=== PATIENT | female | born 1955 | race Caucasian/White ===

== ENCOUNTER → 2018-10-09 13:38 | Outpatient (CLI) | payer MEDICARE, SELFPAY ==
--- NOTE | 2018-10-09 13:45 | US_ITS ---
US Arterial Ankle Brachial Ind History: Claudication, rest pain, smoker ORDERING PHYSICIAN: Mustapha James MD PATIENT AGE: 63 years TECHNIQUE: Segmental pressures obtained of both right and left leg. These are compared to brachial blood pressure to yield index at each level sampled including summary JOEY. The data sheets from the procedure are available in PACS FINDINGS Rest study only performed today No prior studies available for comparison. Blood pressures reported are in millimeters mercury. RIGHT LEG JOEY = 0.62. RIGHT LEG TBI=0.5 Brachial BP: 164 Thigh BP: 99 Calf BP: 112 Ankle PT: 101 Ankle DP : 102 Digit =77 LEFT LEG JOEY = 0.58 LEFT LEG TBI= 0.5 Brachial BPD: 158 Thigh BP: 106 Calf BP: 105 Ankle PT:85 Ankle DP: 80 Digit = 73 Pulses and waveforms: Dampened IMPRESSION: Moderately low JOEY on both sides consistent with moderate peripheral vascular disease. The thigh brachial index is 0.6 on the right and 0.65 on the left. The stenoses could be in the distal aorta or common or external iliac arteries. CT angiogram may confirm
== END ==
PROVIDERS: PCP Family Medicine; Visit Provider Family Medicine
DX: I70.213 Atherosclerosis of native arteries of extremities with intermittent claudication, bilateral legs (principal)
CPT/HCPCS: 93922

== ENCOUNTER → 2018-10-20 14:16 | Outpatient (CLI) | payer MEDICARE, SELFPAY ==
[2018-10-20 17:54] LABS: Blood Urea Nitrogen 6 mg/dL (7-18); Creatinine,Serum 0.77 mg/dL (0.55-1.02); Estimated Glomerular Filt Rate 75 ml/min (>60); GFR (African American) 91 ML/MIN (>60)
== END ==
PROVIDERS: Visit Provider Nurse Practitioner
DX: I73.9 Peripheral vascular disease, unspecified (principal)
CPT/HCPCS: 36415; 82565; 84520

== ENCOUNTER → 2018-10-23 09:40 | Outpatient (CLI) | payer MEDICARE, SELFPAY ==
--- NOTE | 2018-10-23 09:46 | CT_ITS ---
CT angio abdomen/femoral INDICATION: Claudication, rest pain, smoker, abnormal ultrasound of the lower extremities ITS.REASON: PAD ORDERING PHYSICIAN: Mustapha James MD PATIENT AGE: 63 years COMPARISON: 1 TECHNIQUE: Contrast Used:120 mL's Optiray 350 Oral Contrast: Axial images were obtained. Sagittal and coronal reformatted images are reviewed as well. All CT scans at the facility use one or more dose reduction, viz: automated exposure control, ma/kV adjustment per patient size (including targeted exams where dose is matched to indication, i.e. head), or iterative reconstruction technique. FINDINGS: Scattered atheromatous changes are present involving the abdominal aorta and its branches. Artifact is present from prior lumbar fusion. There is minimal dilatation of the infrarenal abdominal aorta at 1.9 cm transverse.. There is mild stenosis of the distal aspect of the abdominal aorta from calcific plaque of approximately 40%. There is occlusion of the right common iliac artery. There is a prominent collateral right lumbar artery at the L4 level. There is reconstitution of the distal aspect of the right common iliac artery with a small right external iliac artery with prominent collaterals from the iliolumbar is an inferior epigastric vessels. Calcific plaque involves the left common iliac and external iliac arteries but no significant stenosis is evident. There are 2 right renal arteries with calcific plaque at the ostium of both renal arteries on the right without significant stenosis. Calcific plaque is present ostium of the left renal artery but no significant stenosis. There is 35-40% stenosis of the ostium of the celiac artery. The SMA has an unremarkable appearance. The MARCEL is patent. Bilateral lower extremity runoff: Right side: Scattered atheromatous plaque involves the common femoral and superficial femoral artery on the right with segmental areas of narrowing with 50% or less stenosis. The popliteal on the right has an unremarkable appearance. Scattered atheromatous plaque involves the arteries of the right leg with three-vessel runoff to the ankle on the right. Left side: There is occlusion of the left superficial femoral artery with reconstitution in the mid aspect of the left SFA proximal to Rafi's canal with moderate atheromatous plaque involving the mid SFA. Left popliteal artery has an unremarkable appearance. There is a small interosseous and anterior tibial artery which extends to the ankle with occlusion of the proximal aspect of the posterior tibial artery. Posterior tibial artery does reconstitute distally. Nonangiographic findings: The intra and extra hepatic biliary radicles are prominent. Common bile duct measures up to 12 mm. The pancreatic duct does not appear dilated. No obvious mass of the pancreatic head. There is colonic diverticulosis but no evidence of diverticulitis. IMPRESSION: 1. Occluded right common iliac artery 2. Occluded left superficial femoral artery. 3. Scattered atheromatous changes as detailed above. 4. Intra and extrahepatic biliary ductal dilatation
== END ==
PROVIDERS: PCP Family Medicine; Visit Provider Family Medicine
DX: I73.9 Peripheral vascular disease, unspecified (principal)
CPT/HCPCS: 75635; Q9967

== ENCOUNTER → 2019-07-02 07:38 | Outpatient (CLI) | payer MEDICARE, SELFPAY ==
--- NOTE | 2019-07-02 08:18 | HMH.ITSHM ---
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 []LISINOPRIL DIAZEPAM TIZANIDINE ROFLUMILAST PRAVASTATIN IPRATROPIUM IBUPROFEN [place] LASIX FLONASE VITAMIN D2 VOLTAREN CELEXA CETIRIZINE SYMBICORT
== END ==
PROVIDERS: PCP Family Medicine; Visit Provider Family Medicine
DX: I20.8 Other forms of angina pectoris (principal)
CPT/HCPCS: 78451; 93005

== ENCOUNTER 2019-07-02 09:31 | Inpatient (IN) ==
[2019-07-02 10:01] LABS: Basophils % 0.2 % (0.1-2.0); Eosinophils # 0.1 K/mm3 (0.0-0.4); Eosinophils % 0.6 % (0.1-12.0); Hematocrit 30.8 % (37.0-47.0); Hemoglobin 9.3 g/dL (12.2-16.2); Lymphocytes # 0.9 K/mm3 (0.7-4.5); Lymphocytes % 6.4 % (10-50); Mean Corpuscular HGB Conc 30.1 g/dL (31.8-35.4); Mean Corpuscular Volume 80.8 fl (81-99); Monocytes # 0.9 K/mm3 (0.1-1.0); Monocytes % 6.7 % (1.7-9.3); Neutrophils # 11.9 K/mm3 (1.8-7.8); Platelet Count 333 K/mm3 (142-424); Red Blood Count 3.81 M/mm3 (4.20-5.40); Red Cell Distribution Width 16.5 % (11.5-17.5); White Blood Count 13.8 K/mm3 (4.8-10.8)
[2019-07-02 10:08] LABS: Anion Gap 19.3 mEq/L (5-15); Calcium 9.8 mg/dl (8.4-10.2)
[2019-07-02 10:25] LABS: Eosinophils % 1 % (0-3); Lymphocytes % 6 % (10-50); Monocytes % 8 % (2-9); Neutrophils % 85 % (42-76); Total Cells Counted 100
[2019-07-02 10:26] LABS: Anisocytosis 1+; Hypochromasia 1+
--- NOTE | 2019-07-02 10:42 | Emergency Department Note ---
ED Disposition Clinical Impression: STEMI (ST elevation myocardial infarction) Disposition: Admitted as Observation Condition on Discharge: Good Additional Instructions: Spoke to cardiology and I think the game plan is to take her to the [facility] now. Referrals: Mustapha James MD [Primary Care Provider] - - Critical Care Critical Care Time: No Attestation: On 07/02/19, the high probability of a clinically significant, sudden or life threatening deterioration of the following system(s) required my full and direct attention, intervention and personal management. The time I documented below is in addition to time spent performing reported procedures but includes the foll owing listed in this critical care notation. Medical Decision Making - Medical Records Medical records reviewed: Yes: I reviewed the patient's medical records. - Garry Inquiry Pt receiving controlled substance: No Vital Signs: 07/02/19 09:32 Pulse Rate [Radial] 123 H Respiratory Rate 20 Blood Pressure [Right Arm] 110/51 L Blood Pressure Mean [Right Arm] 70 Blood Pressure Source [Right Arm] Automatic Cuff Blood Pressure Position [Right Arm] Sitting 02 Sat by Pulse Oximetry 93 L Oxygen Delivery Method Nasal Cannula Oxygen Flow Rate (LPM) 2 - Lab Data Lab results reviewed: Yes: I reviewed the patient's lab results. Lab Results 07/02/19 09:49: WBC 13.8 H, RBC 3.81 L, Hgb 9.3 L, Hct 30.8 L, MCV 80.8 L, MCH 24.3 L, MCHC 30.1 L, RDW 16.5, Plt Count 333, MPV 9.0, Neut % (Auto) 86.0 H, Lymph % (Auto) 6.4 L, [place] % (Auto) 6.7, Eos % (Auto) 0.6, Baso % (Auto) 0.2, Neut # (Auto) 11.9 H, Lymph # (Auto) 0.9, [place] # (Auto) 0.9, Eos # (Auto) 0.1, Baso # (Auto) 0.0, Total Counted 100, Neutrophils % (Manual) 85 H, Lymphocytes % (Manual) 6 L, Monocytes % (Manual) 8, Eosinophils % (Manual) 1, Platelet Estimate Normal, Hypochromasia 1+, Anisocytosis 1+, Microcytosis 1+ 07/02/19 09:49: Sodium 132 L, Potassium 4.3, Chloride 93 L, Carbon Dioxide 24, Anion Gap 19.3 H, BUN 14, Creatinine 0.90, Estimated Creat Clear 76, Estimated GFR 63, Est GFR ( Amer) 76, Glucose 123 H, Calcium 9.8, Troponin I 2.09 H 07/02/19 09:49: NT-Pro-B Natriuret Pep 7780 H Result diagrams: 07/02/19 09:49 07/02/19 09:49 Orders (Tests/Meds): ED MEDICATIONS Discontinued Medications Generic Name Dose Route Start Last Admin Trade Name Freq PRN Reason Stop Dose Admin Albuterol/Ipratropium 3 ml 07/02/19 09:42 07/02/19 10:08 Duoneb 3ml Neb IH 07/02/19 09:43 Not Given ONCE ONE Methylprednisolone Sodium Succinate 125 mg 07/02/19 09:42 07/02/19 09:50 Solu-Medrol 125mg/2ml Vial IM 07/02/19 09:43 125 mg ONCE ONE Administration ORDERS Category Date Time Status XR chest portable Stat Exams 07/02/19 09:41 Taken Troponin I Q3H Lab 07/02/19 12:45 Ordered Troponin I Q3H Lab 07/02/19 15:45 Ordered - Radiology Data #1 Image(s): Chest Preliminary Findings: Abnormal (Increase fax vascular markings indicated of CHF) - ECG Data Tracing #1 Normal Sinus Rhythm: No Arrhythmias present: sinus tach Ischemic changes: ST elevation (Patient has ST changes on this EKG in aVR and aVL secondary to her previous EKG. This is an inferior ID) Resp/SOB HPI - General Chief Complaint: Shortness of Breath/Dyspnea Stated Complaint: SOB Wheezing Time Seen by Provider: 07/02/19 10:30 Mode of Arrival: Wheelchair Source of Information: Patient Limitations: No Limitations Description of Symptoms (Recalled from ER Triage Doc. by RN): While here for a cardiac stress test patient became short of breath with complaint of chest, arm and neck pain. States that she has had wheezes for a couple weeks. - History of Present Illness 64-year-old female presents the ER with shortness of breath and tachycardia. She was getting a stress test done this morning and she became tachycardic and hypertensive as she was starting the test. At that time they did do an EKG and sent her here to the emergency department for further evaluation. Patient states that she really never developed any chest pain but she has had shortness of breath since around Thanksgiving of last year. She describes the shortness of breath at when she is active and it is alleviated when she is at rest. Patient denies any productive cough. Patient denies any nasal congestion. Patient denies any recent fever shakes or chills. Patient is a diabetic and hypertensive patient. - Related Data Home Medications Medication Instructions Recorded Confirmed Aspirin [Aspir 81] 81 mg PO DAILY 05/16/19 05/25/19 Budesonide/Formoterol Fumarate 2 puffs IH BID 05/16/19 05/25/19 [Symbicort 160-4.5 Mcg Inhaler] Cetirizine HCl [Zyrtec] 10 mg PO DAILY 05/16/19 05/25/19 Citalopram Hydrobromide [Celexa 20 mg PO DAILY 05/16/19 05/25/19 20mg Tablet] Diclofenac Sodium [Voltaren 100gm 100 gm TP DAILY 05/16/19 05/25/19 Topical Gel] Ergocalciferol (Vitamin D2) 2,000 unit PO DAILY 05/16/19 05/25/19 [Vitamin D2] Fluticasone Propionate [Flonase 2 spr NS DAILY 05/16/19 05/25/19 50mcg nasal spray 16gm] Furosemide [Lasix 40mg tab] 40 mg PO DAILY 05/16/19 05/25/19 Hydrocodone/Acetaminophen [[place] 1 tab PO TID PRN 05/16/19 05/25/19 7.5-325 Tablet] Ibuprofen [Motrin 600mg 600 mg PO Q8HP PRN 05/16/19 05/25/19 Tablet] Ipratropium [place] [Ipratropium 1 spray NS DAILY 05/16/19 05/25/19 [place] 0.021mg/act NS] Pravastatin Sodium [Pravachol] 40 mg PO DAILY 05/16/19 05/25/19 Roflumilast [Daliresp] 500 mcg PO DAILY 05/16/19 05/25/19 Tiotropium [place] [Spiriva 4 gm IH DAILY 05/16/19 05/25/19 Respimat] Tizanidine HCl 2 mg PO DAILY 05/16/19 05/25/19 diazePAM [Valium] 5 mg PO DAILY 05/16/19 05/25/19 lisinopriL [Lisinopril 20mg Tab] 20 mg PO DAILY 05/16/19 05/25/19 Allergies Allergy/AdvReac Type Severity Reaction Status Date / Time Iodinated Contrast Media Allergy Severe S-DIFF. Verified 05/25/19 07:56 [Iodinated Contrast Media - BREATHING IV Dye] pseudoephedrine AdvReac heart Verified 05/25/19 07:56 racing [facility] History - Hepatitis A Screen Drug use history?: No High risk sexual behaviors?: No History of sexually transmitted infection?: No Currently employed?: No Childcare worker?: No Do you have indoor plumbing?: Yes Do you have electricity?: Yes Attestation statement:: This patient has been screened for Hepatitis A risk factors. I have reviewed the patient's past medical history: Yes Medical History: Reports:: Anxiety, Chronic Obstructive Pulmonary Disease (COPD), Depression, Gastroesophageal Reflux Disease(GERD), Hyperlipidemia, Hypertension, Peripheral Artery Disease, Transient Ischemic Attacks (TIA) Denies:: Cancer, Diabetes Mellitus Type 1, Diabetes Mellitus Type 2, Internal Pacemaker, MRSA, Seizures Other Surgeries: Yes: Coronary Stent, Hysterectomy-Total, Other. No: Pacemaker Amputation: No Fractures: No - Social History Educational Level: Attended High School Smoking Status: Current every day smoker # Packs/Day (cigarettes): 10 Alcohol Intake: never Substance Use Type: denies use Occupational Status: other Housing: house Household Members: none - Psychiatric History Pschychiatric History:: Reports:: Anxiety, Depression Family Hx:: No significant family history ROS Obtained: Yes All systems reviewed & no additional complaints - Constitutional Constitutional: Reports system reviewed and no additional complaints, except as docu - Eyes Eyes: Reports system reviewed and no additional complaints, except as docu - ENT Ears, Nose, Mouth, and Throat: Reports system reviewed and no additional complaints, except as docu - Cardiovascular Cardiovascular: Reports system reviewed and no additional complaints, except as docu - Respiratory Respiratory: Yes system reviewed and no additional complaints, except as docu - Gastrointestinal Gastrointestingal: Reports: system reviewed and no additional complaints, except as docu - Genitourinary Male Genitourinary: Reports system reviewed and no additional complaints, except as docu Female Genitourinary: Reports system reviewed and no additional complaints, except as docu - Musculoskeletal Musculoskeletal: Reports system reviewed and no additional complaints, except as docu - Neurologic Neurologic: Reports system reviewed and no additional complaints, except as docu - Endocrine Endocrine: Reports system reviewed and no additional complaints, except as docu - Hematologic/Lymphatic Henatologic/Lymphatic: Reports system reviewed and no additional complaints, except as docu - Allergic/Immunologic Allergic/Immunologic: Reports system reviewed and no additional complaints, except as docu Physical Exam - General General appearance: alert, in no apparent distress - Head Head exam: atraumatic, normocephalic - Eye Eye exam: Present: normal appearance - ENT ENT exam: Present: normal exam - Neck Neck exam: Present: normal inspection - Chest Chest inspection: Present: normal inspection - Respiratory Respiratory exam: Present: normal lung sounds bilaterally - Cardiovascular Cardiovascular exam: Present: tachycardia - Abdominal Exam Abdominal exam: Present: soft - Extremities Exam Extremities exam: Present: normal inspection, full ROM - Back Exam Back exam: Present: normal inspection, full ROM - Neurological Exam Neurological exam: Present: alert, oriented X3 - Psychiatric Psychiatric exam: Present: normal affect, normal mood - Skin Skin exam: Present: warm - Lymphatic Lymphatic Findings: no adenopathy
--- NOTE | 2019-07-02 11:25 | Consult Report ---
History of Present Illness Consult date: 07/02/19 Requesting physician: Mustapha James Consult reason: shortness of breath Chief complaint: SOA, CHF, NSTEMI Additional Medical History:: 1. Tobacco use, since age 9 2. PAD, prior iliac stenting 3. HTN 4. HLD, on statin 5. Anxiety/Depression 6. IV contrast allergy History of present illness: 64-year-old female presents the ER with shortness of breath and tachycardia. She was getting a stress test done this morning and she became tachycardic and hypertensive as she was starting the test. At that time they did do an EKG and sent her here to the emergency department for further evaluation. Patient states that she really never developed any chest pain but she has had shortness of breath since around of last year. She describes the shortness of breath at when she is active and it is alleviated when she is at rest. Patient denies any productive cough. Patient denies any nasal congestion. Patient denies any recent fever shakes or chills. Patient is a diabetic and hypertensive patient. The above per Dr. Khan Initial troponin is 2.06 She has received ASA and plavix. She is not as symptomatic at this time but still has some mild conversational dyspnea. Heart rate has improved after IV labetolol. Discussed case with Dr. Salcido (covering for Dr. Chavez). Will proceed with [facility] later today. Pt will be given 180 mg of Brilinta now along with IV lasix. She relates prior iliac stenting but has an allergy to IV contrast (pretreatment successfully prevents reaction per patient). [facility] History Medical History: Reports:: Anxiety, Chronic Obstructive Pulmonary Disease (COPD), Depression, Gastroesophageal Reflux Disease(GERD), Hyperlipidemia, Hypertension, Peripheral Artery Disease, Transient Ischemic Attacks (TIA) Denies:: Cancer, Diabetes Mellitus Type 1, Diabetes Mellitus Type 2, Internal Pacemaker, MRSA, Seizures *Have you ever received a pneumonia vaccine?: Yes *Have you received a flu vaccine this season?: Yes Other Surgeries: Yes: Coronary Stent, Hysterectomy-Total, Other. No: Pacemaker Amputation: No Fractures: No - *Social History Educational Level: Attended High School Smoking Status: Current every day smoker # Packs/Day (cigarettes): 10 Alcohol Intake: never Substance Use Type: denies use *Occupational Status:: other Housing: house Household Members: none *Travel in the last 8 weeks: None - Psychiatric History Pschychiatric History:: Reports:: Anxiety, Depression Family Hx:: No significant family history Meds Home Medications Medication Instructions Recorded Confirmed Type Aspirin [Aspir 81] 81 mg PO DAILY 05/16/19 05/25/19 History Budesonide/Formoterol Fumarate 2 puffs IH BID 05/16/19 05/25/19 History [Symbicort 160-4.5 Mcg Inhaler] Cetirizine HCl [Zyrtec] 10 mg PO DAILY 05/16/19 05/25/19 History Citalopram Hydrobromide [Celexa 20 mg PO DAILY 05/16/19 05/25/19 History 20mg Tablet] Diclofenac Sodium [Voltaren 100gm 100 gm TP DAILY 05/16/19 05/25/19 History Topical Gel] Fluticasone Propionate [Flonase 2 spr NS DAILY 05/16/19 05/25/19 History 50mcg nasal spray 16gm] Furosemide [Lasix 40mg tab] 40 mg PO DAILY 05/16/19 05/25/19 History Hydrocodone/Acetaminophen [[place] 1 tab PO TID PRN 05/16/19 05/25/19 History 7.5-325 Tablet] Ibuprofen [Motrin 600mg 600 mg PO Q8HP PRN 05/16/19 05/25/19 History Tablet] Ipratropium [place] [Ipratropium 1 spray NS DAILY 05/16/19 05/25/19 History [place] 0.021mg/act NS] Roflumilast [Daliresp] 500 mcg PO DAILY 05/16/19 05/25/19 History Tiotropium [place] [Spiriva 4 gm IH DAILY 05/16/19 05/25/19 History Respimat] Tizanidine HCl 2 mg PO DAILY 05/16/19 05/25/19 History diazePAM [Valium] 5 mg PO DAILY 05/16/19 05/25/19 History lisinopriL [Lisinopril 20mg Tab] 20 mg PO DAILY 05/16/19 05/25/19 History Allergies Allergy/AdvReac Type Severity Reaction Status Date / Time Iodinated Contrast Media Allergy Severe S-DIFF. Verified 05/25/19 07:56 [Iodinated Contrast Media - BREATHING IV Dye] pseudoephedrine AdvReac heart Verified 05/25/19 07:56 racing Review of Systems - Review of Systems Review of systems:: pertinent systems reviewed and negative unless documented below - *Cardiovascular Reports shortness of breath, Reports shortness of breath with activity, Denies chest pain - *Respiratory Reports shortness of breath, Reports shortness of breath with activity, Reports wheezing, Denies cough - *Gastrointestinal Denies abdominal pain, Denies nausea, Denies vomiting - *Genitourinary Denies blood in urine - *Musculoskeletal Denies joint pain, Denies back pain - *Neurologic Denies fainting, Denies weakness Exam Vital signs and Labs for Last 24 Hours: Pulse Resp BP Pulse Ox 112 H 20 119/68 99 07/02/19 11:00 07/02/19 11:00 07/02/19 11:00 07/02/19 11:00 Laboratory Results - last 24 hr 07/02/19 09:49: WBC 13.8 H, RBC 3.81 L, Hgb 9.3 L, Hct 30.8 L, MCV 80.8 L, MCH 24.3 L, MCHC 30.1 L, RDW 16.5, Plt Count 333, MPV 9.0, Neut % (Auto) 86.0 H, Lymph % (Auto) 6.4 L, [place] % (Auto) 6.7, Eos % (Auto) 0.6, Baso % (Auto) 0.2, Neut # (Auto) 11.9 H, Lymph # (Auto) 0.9, [place] # (Auto) 0.9, Eos # (Auto) 0.1, Baso # (Auto) 0.0, Total Counted 100, Neutrophils % (Manual) 85 H, Lymphocytes % (Manual) 6 L, Monocytes % (Manual) 8, Eosinophils % (Manual) 1, Platelet Estimate Normal, Hypochromasia 1+, Anisocytosis 1+, Microcytosis 1+ 07/02/19 09:49: Sodium 132 L, Potassium 4.3, Chloride 93 L, Carbon Dioxide 24, Anion Gap 19.3 H, BUN 14, Creatinine 0.90, Estimated Creat Clear 76, Estimated GFR 63, Est GFR ( Amer) 76, Glucose 123 H, Calcium 9.8, Troponin I 2.09 H 07/02/19 09:49: NT-Pro-B Natriuret Pep 7780 H I & O for Last 24 hours: Intake & Output 06/29/19 06/30/19 07/01/19 07/02/19 10:59 10:59 11:59 11:59 Weight 192 lb - *Routine HEENT Exam Head: Present: normocephalic Eye: Present: EOMI, PERRL ENT: Present: mucous membranes moist - *Routine Neck Exam Present: supple. Absent: JVD, carotid bruit - *Routine Respiratory Exam Present: decreased breath sounds, rhonchi, wheezes. Absent: accessory muscle use, rales - *Routine Cardiovascular Exam Present: RRR. Absent: murmur, gallop, rubs - *Routine Abdominal Exam Present: soft. Absent: tenderness, distended, guarding - *Routine Extremities Exam Absent: edema, calf tenderness - *Routine Neurological Exam Present: alert, oriented X3, moving all extremities Assessment and Plan (1) NSTEMI (non-ST elevated myocardial infarction) Current visit: Yes Status: Acute Category: Medical Code(s): I21.4 - Non-ST elevation (NSTEMI) myocardial infarction (2) COPD (chronic obstructive pulmonary disease) Current visit: Yes Status: Acute Category: Medical Code(s): J44.9 - Chronic obstructive pulmonary disease, unspecified (3) Tobacco use Current visit: Yes Status: Acute Category: Social Hx Code(s): Z72.0 - Tobacco use (4) HTN (hypertension) Current visit: Yes Status: Acute Category: Medical Code(s): I10 - Essential (primary) hypertension (5) HLD (hyperlipidemia) Current visit: Yes Status: Acute Category: Medical Code(s): E78.5 - Hyperlipidemia, unspecified (6) PAD (peripheral artery disease) Current visit: Yes Status: Acute Category: Medical Code(s): I73.9 - Peripheral vascular disease, unspecified - Assessment and plan all Dx Assessment and Plan for all problems:: 1. Abnormal EKG (ST depression infero-laterally) and elevated troponin, consistent with NSTEMI, Give 180 mg brilinta now (she has received ASA and 300 mg plavix) along with heparin 5000 units now then start 1200 units/hr thereafter. Continue statin therapy. 2. CHF on CXR, Give IV lasix 40 mg now and check Echo. 3. 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 4. Further recommendations to follow.
--- NOTE | 2019-07-02 12:08 | Pharmacy Consult Notes ---
[facility] Pharmacy Heparin Dosing - Demographic Data Admission date:: 07/02/19 Date: 07/02/19 Time: 12:07 Allergies/Adverse Reactions: Allergies Allergy/AdvReac Type Severity Reaction Status Date / Time Iodinated Contrast Media Allergy Severe S-DIFF. Verified 05/25/19 07:56 [Iodinated Contrast Media - BREATHING IV Dye] pseudoephedrine AdvReac heart Verified 05/25/19 07:56 racing Height: 1.6 m Weight: 87.09 kg - Indication Medication therapy:: Heparin CVA?: No Bleeding problem?: No Kidney disease?: No UT?: No Desired PTT range:: 60-80 seconds - Labs Anticoagulation Lab Results:: 07/02/19 09:49 Hgb 9.3 L Hct 30.8 L Plt Count 333 - Monitoring Dose Monitor 1 Date: 07/02/19 Time: 13:05 Infusion Rate:: 1,200 UNITS/HR Comment:: 5,000 UNIT BOLUS Dose Monitor 2 Date: 07/02/19 Time: 19:00 PTT Result:: 38.5 Infusion Rate:: INCREASE RATE TO 28 ML/HR Comment:: 4000 UNIT BOLUS Dose Monitor 3 Date: 07/03/19 Time: 01:05 PTT Result:: 83.5 Infusion Rate:: DECREASE RATE TO 27 ML/HR Dose Monitor 4 Date: 07/03/19 Time: 08:00 PTT Result:: 55.4 Infusion Rate:: INCREASE RATE TO 28 ML/HR Dose Monitor 5 Date: 07/03/19 Time: 14:30 PTT Result:: 44.8 Infusion Rate:: INCREASE RATE TO 30 ML/HR Comment:: 4,000 UNIT BOLUS - Core Measures Is INR > or = 2 at discharge?: No Most Recent Labs:: Laboratory Results - last 24 hr 07/02/19 09:49: WBC 13.8 H, RBC 3.81 L, Hgb 9.3 L, Hct 30.8 L, MCV 80.8 L, MCH 24.3 L, MCHC 30.1 L, RDW 16.5, Plt Count 333, MPV 9.0, Neut % (Auto) 86.0 H, Lymph % (Auto) 6.4 L, [place] % (Auto) 6.7, Eos % (Auto) 0.6, Baso % (Auto) 0.2, Neut # (Auto) 11.9 H, Lymph # (Auto) 0.9, [place] # (Auto) 0.9, Eos # (Auto) 0.1, Baso # (Auto) 0.0, Total Counted 100, Neutrophils % (Manual) 85 H, Lymphocytes % (Manual) 6 L, Monocytes % (Manual) 8, Eosinophils % (Manual) 1, Platelet Estimate Normal, Hypochromasia 1+, Anisocytosis 1+, Microcytosis 1+ 07/02/19 09:49: Sodium 132 L, Potassium 4.3, Chloride 93 L, Carbon Dioxide 24, Anion Gap 19.3 H, BUN 14, Creatinine 0.90, Estimated Creat Clear 76, Estimated GFR 63, Est GFR ( Amer) 76, Glucose 123 H, Calcium 9.8, Troponin I 2.09 H 07/02/19 09:49: NT-Pro-B Natriuret Pep 7780 H 07/02/19 11:10: Lactate 1.7 Were Heparin and Warfarin started on the same day?: No If not, why?: PATIENT SENT TO [facility]
[2019-07-02 12:14] LABS: Activated Partial Thrombo Time 27.7 seconds (23.6-34.0); INR 1.17 (0.9-1.1); Prothrombin Time 12.1 seconds (9.4-11.8)
--- NOTE | 2019-07-02 13:26 | History & Physical Report ---
*Admission Date: 07/02/19 *Chief complaint: Dyspnea with exertion *History of present illness: 64-year-old white female with history of peripheral arterial disease, diabetes, severe tobacco use disorder and recent accelerating shortness of air who is scheduled for an imaging stress test today, but when she arrived at the stress test room was noted to be dyspneic. Stress test was started but she immediately had EKG changes and was taken to the emergency department. In the emergency department had elevated troponin levels, diagnosed with non-STEMI/accelerating angina/acute coronary syndrome, cardiac medications were started, cardiology was consulted and she was transferred to second floor for further management. [facility] History I have reviewed the patient's past medical history: Yes Medical History: Reports:: Anxiety, Chronic Obstructive Pulmonary Disease (COPD), Depression, Gastroesophageal Reflux Disease(GERD), Hyperlipidemia, Hypertension, Peripheral Artery Disease, Transient Ischemic Attacks (TIA) Denies:: Cancer, Diabetes Mellitus Type 1, Diabetes Mellitus Type 2, Internal Pacemaker, MRSA, Seizures *Have you ever received a pneumonia vaccine?: Yes *Have you received a flu vaccine this season?: Yes Other Surgeries: Yes: Coronary Stent, Hysterectomy-Total, Other. No: Pacemaker Amputation: No Fractures: No - *Social History Educational Level: Completed GED/General Educational Development Smoking Status: Current some day smoker # Packs/Day (cigarettes): 1 Alcohol Intake: never Substance Use Type: denies use *Occupational Status:: retired Housing: house Household Members: none *Travel in the last 8 weeks: None - Psychiatric History Pschychiatric History:: Reports:: Anxiety, Depression Family Hx:: Alcoholism Review of Systems - Review of Systems Review of systems:: pertinent systems reviewed and negative unless documented below Reports chest pressure and dyspnea. Notes that this has been accelerating over the past 4 weeks. Denies GI symptoms. Reports lots of pain syndrome issues from her fibromyalgia. Otherwise 10 point review of systems negative - *Neurologic Denies fainting, Denies weakness Meds Home Medications Medication Instructions Recorded Confirmed Type Aspirin [Aspir 81] 81 mg PO DAILY 05/16/19 07/02/19 History Budesonide/Formoterol Fumarate 2 puffs IH BID 05/16/19 07/02/19 History [Symbicort 160-4.5 Mcg Inhaler] Cetirizine HCl [Zyrtec] 10 mg PO DAILY 05/16/19 07/02/19 History Citalopram Hydrobromide [Celexa 20 mg PO DAILY 05/16/19 07/02/19 History 20mg Tablet] Diclofenac Sodium [Voltaren 100gm 100 gm TP DAILY 05/16/19 07/02/19 History Topical Gel] Fluticasone Propionate [Flonase 2 spr NS DAILY 05/16/19 07/02/19 History 50mcg nasal spray 16gm] Furosemide [Lasix 40mg tab] 40 mg PO DAILY 05/16/19 07/02/19 History Hydrocodone/Acetaminophen [[place] 1 tab PO TID PRN 05/16/19 07/02/19 History 7.5-325 Tablet] Ibuprofen [Motrin 600mg 600 mg PO Q8HP PRN 05/16/19 07/02/19 History Tablet] Ipratropium [place] [Ipratropium 1 spray NS DAILY 05/16/19 07/02/19 History [place] 0.021mg/act NS] Roflumilast [Daliresp] 500 mcg PO DAILY 05/16/19 05/25/19 History Tiotropium [place] [Spiriva 4 gm IH DAILY 05/16/19 07/02/19 History Respimat] Tizanidine HCl 2 mg PO DAILY 05/16/19 07/02/19 History diazePAM [Valium] 5 mg PO DAILY 05/16/19 07/02/19 History lisinopriL [Lisinopril 20mg Tab] 20 mg PO DAILY 05/16/19 07/02/19 History Allergies Allergy/AdvReac Type Severity Reaction Status Date / Time Iodinated Contrast Media Allergy Severe S-DIFF. Verified 05/25/19 07:56 [Iodinated Contrast Media - BREATHING IV Dye] pseudoephedrine AdvReac heart Verified 05/25/19 07:56 racing Exam Vital signs and Labs for Last 24 Hours: Temp Pulse Resp BP Pulse Ox 98.2 F 112 H 20 119/68 97 07/02/19 12:15 07/02/19 12:15 07/02/19 12:15 07/02/19 12:15 07/02/19 12:02 Laboratory Results - last 24 hr 07/02/19 09:49: WBC 13.8 H, RBC 3.81 L, Hgb 9.3 L, Hct 30.8 L, MCV 80.8 L, MCH 24.3 L, MCHC 30.1 L, RDW 16.5, Plt Count 333, MPV 9.0, Neut % (Auto) 86.0 H, Lymph % (Auto) 6.4 L, [place] % (Auto) 6.7, Eos % (Auto) 0.6, Baso % (Auto) 0.2, Neut # (Auto) 11.9 H, Lymph # (Auto) 0.9, [place] # (Auto) 0.9, Eos # (Auto) 0.1, Baso # (Auto) 0.0, Total Counted 100, Neutrophils % (Manual) 85 H, Lymphocytes % (Manual) 6 L, Monocytes % (Manual) 8, Eosinophils % (Manual) 1, Platelet Estimate Normal, Hypochromasia 1+, Anisocytosis 1+, Microcytosis 1+ 07/02/19 09:49: Sodium 132 L, Potassium 4.3, Chloride 93 L, Carbon Dioxide 24, Anion Gap 19.3 H, BUN 14, Creatinine 0.90, Estimated Creat Clear 76, Estimated GFR 63, Est GFR ( Amer) 76, Glucose 123 H, Calcium 9.8, Troponin I 2.09 H 07/02/19 09:49: NT-Pro-B Natriuret Pep 7780 H 07/02/19 09:49: PT 12.1 H, INR 1.17 H, APTT 27.7 07/02/19 11:10: Lactate 1.7 I & O for Last 24 hours: Intake & Output 06/30/19 07/01/19 07/02/19 07/03/19 10:59 11:59 11:59 11:59 Weight 192 lb 192 lb 0.009 oz Narrative: Patient is awake, oriented x3. Neurologic exam intact. Patient is edentulous, no oral lesions. Lungs have expiratory wheezing in the bases. Good air movement however. Heart rate regular. No murmurs. Abdomen soft and nontender. Distal perfusion diminished in the extremities with 1+ pulses in both feet but symmetric, upper extremity pulses are normal. Skin exam without rashes Assessment and Plan (1) NSTEMI (non-ST elevated myocardial infarction) Current visit: Yes Status: Acute Category: Medical Code(s): I21.4 - Non-ST elevation (NSTEMI) myocardial infarction (2) COPD (chronic obstructive pulmonary disease) Current visit: Yes Status: Acute Category: Medical Code(s): J44.9 - Chronic obstructive pulmonary disease, unspecified (3) Tobacco use Current visit: Yes Status: Acute Category: Social Hx Code(s): Z72.0 - Tobacco use (4) HTN (hypertension) Current visit: Yes Status: Acute Category: Medical Code(s): I10 - Essential (primary) hypertension (5) HLD (hyperlipidemia) Current visit: Yes Status: Acute Category: Medical Code(s): E78.5 - Hyperlipidemia, unspecified (6) PAD (peripheral artery disease) Current visit: Yes Status: Acute Category: Medical Code(s): I73.9 - Peripheral vascular disease, unspecified (7) Obesity Current visit: Yes Status: Acute Category: Medical Code(s): E66.9 - Obesity, unspecified (8) Fibromyalgia Current visit: Yes Status: Acute Category: Medical Code(s): M79.7 - Fibromyalgia - Assessment and plan all Dx Assessment and Plan for all problems:: Multiple comorbid conditions. Agree with admission for left heart cath. She with multiple medication sensitivities and history of bleeding with Plavix. If patient requires dual antiplatelet therapy this will be concerning. Patient with minimal wheezing. We will administer 1 dose of steroids and make sure pulmonary toilet is ordered.
--- NOTE | 2019-07-02 14:11 | Pharmacy Consult Notes ---
[facility] Pharmacy VTE Monitoring - Patient Demographics Admission date: 07/02/19 Report Date: 07/02/19 Time: 14:10 Allergies/Adverse Reactions: Patient Allergies Iodinated Contrast Media [Iodinated Contrast Media - IV Dye] Allergy (Severe, Verified 05/25/19 07:56) S-DIFF. BREATHING pseudoephedrine Adverse Reaction (Verified 05/25/19 07:56) heart racing Height: 1.6 m Weight: 87.09 kg Patient Problems: Current Active Problems STEMI (ST elevation myocardial infarction) (Acute) NSTEMI (non-ST elevated myocardial infarction) (Acute) COPD (chronic obstructive pulmonary disease) (Acute) Tobacco use (Acute) HTN (hypertension) (Acute) HLD (hyperlipidemia) (Acute) PAD (peripheral artery disease) (Acute) Obesity (Acute) Fibromyalgia (Acute) - VTE Risk Labs: VTE Related Lab Results Hgb 9.3 g/dL (12.2-16.2) L 07/02/19 09:49 Hct 30.8 % (37.0-47.0) L 07/02/19 09:49 Plt Count 333 K/mm3 (142-424) 07/02/19 09:49 PT 12.1 seconds (9.4-11.8) H 07/02/19 09:49 INR 1.17 (0.9-1.1) H 07/02/19 09:49 APTT 27.7 seconds (23.6-34.0) 07/02/19 09:49 BUN 14 mg/dl (7-17) 07/02/19 09:49 Creatinine 0.90 mg/dl (0.52-1.04) 07/02/19 09:49 Estimated Creat Clear 76 mL/min (50-200) 07/02/19 09:49 Was VTE Risk Assessment Performed: Yes VTE Score: 4 VTE Risk Level: Low Risk Clinical Trial Participant: No - Prophylaxis VTE Prophylaxis Ordered?: Yes Types of VTE Prophylaxis: TEDS Knee High, Pharmacological Pharmacologic Type: Other (BRILIN[place])
[2019-07-02 14:45] LABS: Microscopic, Urine URINE MICROSCOPIC (MICROSCOPIC)
[2019-07-02 15:12] LABS: Appearance,Urine CLEAR (Clear); Bilirubin,Urine Negative (Negative); Blood, Urine TRACE-I (Negative); Color,Urine YELLOW (Yellow); Glucose,Urine (UA) Negative (Negative); Ketones,Urine Negative (Negative); Leukocyte Esterase,Urine Negative (Negative); PH,Urine 5.5 (5.0-8.5); Protein,Urine Negative (Negative); Urobilinogen,Urine 0.2 EU/dl (0.2)
[2019-07-02 16:21] LABS: WBC,Urine Occasional #/hpf (0-3)
[2019-07-02 16:22] LABS: Bacteria,Urine Trace /lpf
--- NOTE | 2019-07-02 17:31 | Electrocardiograph Report ---
APPROVED REPORT Exam: Resting ECG HR:109 bpm ECG Measurements Heart Rate 109 AXES SD 148 P 74 QRSd 78 QRS -5 QT 346 T222 QTc 465 <Conclusion> Sinus tachycardia Low voltage QRS Marked ST abnormality, possible inferior/lateral subendocardial injury Abnormal ECG Electronically signed by : Marquis Trejo, 07/02/2019 17:31:06
--- NOTE | 2019-07-03 00:23 | Discharge Summary ---
General - General Admission date:: 07/02/19 Discharge date: 07/03/19 HPI HPI: 64-year-old white female with history of peripheral arterial disease, diabetes, severe tobacco use disorder and recent accelerating shortness of air who is scheduled for an imaging stress test today, but when she arrived at the stress test room was noted to be dyspneic. Stress test was started but she immediately had EKG changes and was taken to the emergency department. In the emergency department had elevated troponin levels, diagnosed with non-STEMI/accelerating angina/acute coronary syndrome, cardiac medications were started, cardiology was consulted and she was transferred to second floor for further management. Hospital Course Hospital Course: Admitted to Medicine for NSTEMI. Patient was symptomatic with dyspnea and some chest pressure. Cardiology consulted from ER and patient taken to cardiac cath technician. Procedure tolerated well with findings as follows: IMPRESSION 1. Severe left main coronary artery stenosis in its distal portion 2. Severe three-vessel [place] coronary artery disease 3. Moderate diffuse coronary calcification 4. Moderate reduction in left ventricular systolic function 5. Elevated left ventricular end-diastolic pressure 6. Successful placement of an Angio-Seal device in the right common femoral artery Due to severity of multi-vessel disease, recommended CABG. Cardiology consulted CT surgery at . Patient accepted for procedure. Monitored on Med-Surg floor on goal directed therapy and Heparin gtt until transfer. Remained hemodynamically stable but had some intermittent episodes of chest discomfort through the night. Continue breathing treatments for her COPD, nicotine replacement therapy for her tobacco abuse disorder, and nitroglycerin paste on her chest for angina. Cardiology recs from Cath report as follows: - "Patient will need coronary artery bypass grafting. She needs tuned up prior to this. She has a lot of rhonchi and respiratory symptoms. Her heart rate is up as well as her blood pressure. She has three-vessel coronary artery disease including left main coronary artery stenosis. With her EDP being elevated, she needs continued aggressive diuresis. Best option for her at this time is bypass given her age, her cardiomyopathy, and her other comorbid factors. We will continue the heparin drip at this time. Continue to titrate medications as tolerated." Diuresed with IV lasix, negative +/- 1L during admission. CP and SOA intermittent. No Syncope, SIDDIQI, N/V/D, fever. Stable for transfer to for further management and CABG. Patient had strong reservation about going to due to poor experience with her over 10 years ago when he was admitted for stroke. Had extensive discussion about quality of care she would receive, the need for coronary artery bypass, and potential risks for her procedure. After extensive discussion, patient amenable to sticking with plan. Family at bedside with her this morning on rounds included her son and [id number]. All of their questions answered today. Objective Vital signs: Temp Pulse Resp BP Pulse Ox 98.2 F 114 H 18 146/88 H 95 07/02/19 18:58 07/02/19 21:31 07/02/19 18:58 07/02/19 18:58 07/02/19 21:31 Narrative: Patient is awake, oriented x3. Neurologic exam intact. Patient is edentulous, no oral lesions. Lungs have expiratory wheezing in the bases and fine crackles in posterior lung [place] at bases. Good air movement however. Heart rate regular. No murmurs. No edema Abdomen soft and nontender. Distal perfusion diminished in the extremities with 1+ pulses in both feet but symmetric, upper extremity pulses are normal. Skin exam without rashes; well-healed midline scar in her lumbar region from previous back surgery. Results Labs on day of discharge: Labs from last 24 hours 07/02/19 07/02/19 07/02/19 18:58 14:51 14:38 WBC RBC Hgb Hct MCV MCH MCHC RDW Plt Count MPV Neut % (Auto) Lymph % (Auto) [place] % (Auto) Eos % (Auto) Baso % (Auto) Neut # (Auto) Lymph # (Auto) [place] # (Auto) Eos # (Auto) Baso # (Auto) Total Counted Neutrophils % (Manual) Lymphocytes % (Manual) Monocytes % (Manual) Eosinophils % (Manual) Platelet Estimate Hypochromasia Anisocytosis Microcytosis PT INR APTT 38.5 H D Sodium Potassium Chloride Carbon Dioxide Anion Gap BUN Creatinine Estimated Creat Clear Estimated GFR Est GFR ( Amer) Glucose Lactate Calcium Troponin I 3.23 H NT-Pro-B Natriuret Pep Urine Color Yellow Urine Appearance Clear Urine pH 5.5 Ur Specific [place] 1.020 Urine Protein Negative Urine Glucose (UA) Negative Urine Ketones Negative Urine Blood Trace-i Urine Nitrate Negative Urine Bilirubin Negative Urine Urobilinogen 0.2 Ur Leukocyte Esterase Negative Urine WBC Occasional Ur Squamous Epith Cells 3-5 Urine Bacteria Trace 07/02/19 07/02/19 07/02/19 11:10 09:49 09:49 WBC RBC Hgb Hct MCV MCH MCHC RDW Plt Count MPV Neut % (Auto) Lymph % (Auto) [place] % (Auto) Eos % (Auto) Baso % (Auto) Neut # (Auto) Lymph # (Auto) [place] # (Auto) Eos # (Auto) Baso # (Auto) Total Counted Neutrophils % (Manual) Lymphocytes % (Manual) Monocytes % (Manual) Eosinophils % (Manual) Platelet Estimate Hypochromasia Anisocytosis Microcytosis PT 12.1 H INR 1.17 H APTT 27.7 Sodium Potassium Chloride Carbon Dioxide Anion Gap BUN Creatinine Estimated Creat Clear Estimated GFR Est GFR ( Amer) Glucose Lactate 1.7 Calcium Troponin I NT-Pro-B Natriuret Pep 7780 H Urine Color Urine Appearance Urine pH Ur Specific [place] Urine Protein Urine Glucose (UA) Urine Ketones Urine Blood Urine Nitrate Urine Bilirubin Urine Urobilinogen Ur Leukocyte Esterase Urine WBC Ur Squamous Epith Cells Urine Bacteria 07/02/19 07/02/19 09:49 09:49 WBC 13.8 H RBC 3.81 L Hgb 9.3 L Hct 30.8 L MCV 80.8 L MCH 24.3 L MCHC 30.1 L RDW 16.5 Plt Count 333 MPV 9.0 Neut % (Auto) 86.0 H Lymph % (Auto) 6.4 L [place] % (Auto) 6.7 Eos % (Auto) 0.6 Baso % (Auto) 0.2 Neut # (Auto) 11.9 H Lymph # (Auto) 0.9 [place] # (Auto) 0.9 Eos # (Auto) 0.1 Baso # (Auto) 0.0 Total Counted 100 Neutrophils % (Manual) 85 H Lymphocytes % (Manual) 6 L Monocytes % (Manual) 8 Eosinophils % (Manual) 1 Platelet Estimate Normal Hypochromasia 1+ Anisocytosis 1+ Microcytosis 1+ PT INR APTT Sodium 132 L Potassium 4.3 Chloride 93 L Carbon Dioxide 24 Anion Gap 19.3 H BUN 14 Creatinine 0.90 Estimated Creat Clear 76 Estimated GFR 63 Est GFR ( Amer) 76 Glucose 123 H Lactate Calcium 9.8 Troponin I 2.09 H NT-Pro-B Natriuret Pep Urine Color Urine Appearance Urine pH Ur Specific [place] Urine Protein Urine Glucose (UA) Urine Ketones Urine Blood Urine Nitrate Urine Bilirubin Urine Urobilinogen Ur Leukocyte Esterase Urine WBC Ur Squamous Epith Cells Urine Bacteria DS: Diagnosis - Discharge Diagnosis (1) NSTEMI (non-ST elevated myocardial infarction) Status: Acute (2) COPD (chronic obstructive pulmonary disease) Status: Chronic (3) Tobacco use Status: Chronic (4) HTN (hypertension) Status: Chronic (5) HLD (hyperlipidemia) Status: Chronic (6) PAD (peripheral artery disease) Status: Chronic (7) Obesity Status: Chronic (8) Fibromyalgia Status: Chronic Discharge Plan - Patient Discharge Instructions ACTIVITY: Limited activity DIET: low fat, low cholesterol Patient Instructions: Chronic Obstructive Pulmonary Disease (Alternative Therapy), DI for Chronic Obstructive Pulmonary Disease, DI for Chest Pain - Follow up Plan Disposition: Xfer Short-Term Hosp Home Medications: Home Medications Medication Instructions Recorded Confirmed Type Budesonide/Formoterol Fumarate 2 puffs IH BID 05/16/19 07/02/19 History [Symbicort 160-4.5 Mcg Inhaler] Cetirizine HCl [Zyrtec] 10 mg PO DAILY 05/16/19 07/02/19 History Citalopram Hydrobromide [Celexa 20 mg PO DAILY 05/16/19 07/02/19 History 20mg Tablet] Diclofenac Sodium [Voltaren 100gm 4 gm TP QID 05/16/19 07/02/19 History Topical Gel] Fluticasone Propionate [Flonase 2 spr NS DAILY 05/16/19 07/02/19 History 50mcg nasal spray 16gm] Hydrocodone/Acetaminophen [[place] 1 tab PO TID PRN 05/16/19 07/02/19 History 7.5-325 Tablet] Ibuprofen [Motrin 600mg 600 mg PO Q8HP PRN 05/16/19 07/02/19 History Tablet] Ipratropium [place] [Ipratropium 1 spray NS DAILY 05/16/19 07/02/19 History [place] 0.021mg/act NS] RX: Tizanidine HCl 2 mg PO TIDP PRN 05/16/19 07/02/19 History Roflumilast [Daliresp] 500 mcg PO DAILY 05/16/19 07/02/19 History Tiotropium [place] [Spiriva 2 puffs IH DAILY 05/16/19 07/02/19 History Respimat] diazePAM [Valium] 5 mg PO QIDP PRN 05/16/19 07/02/19 History lisinopriL [Lisinopril 20mg Tab] 20 mg PO DAILY 05/16/19 07/02/19 History Aspirin [Lo-Dose Aspirin [place]] 81 mg PO DAILY 07/02/19 07/02/19 History Furosemide [Furosemide 20mg Tab] 20 mg PO DAILY 07/02/19 07/02/19 History RX: Clopidogrel Bisulfate [Plavix 75 mg PO DAILY 07/02/19 07/02/19 History 75mg Tab] RX: Lansoprazole 30 mg PO DAILY 07/02/19 07/02/19 History Prescriptions/Medication Reconciliation: New RX: Ipratropium/Albuterol Sulfate [Duoneb 3mL neb] 3 ml IH Q4HP PRN ampul.neb PRN Reason: Shortness Of Breath RX: Potassium Chloride [Klor-con 20 mEq tablet] 20 meq PO BID tablet Continued lisinopriL [Lisinopril 20mg Tab] 20 mg PO DAILY Fluticasone Propionate [Flonase 50mcg nasal spray 16gm] 2 spr NS DAILY Hydrocodone/Acetaminophen [[place] 7.5-325 Tablet] 1 tab PO TID PRN PRN Reason: pain Tiotropium [place] [Spiriva Respimat] 2 puffs IH DAILY Citalopram Hydrobromide [Celexa 20mg Tablet] 20 mg PO DAILY Cetirizine HCl [Zyrtec] 10 mg PO DAILY RX: Lansoprazole 30 mg PO DAILY Furosemide [Furosemide 20mg Tab] 20 mg PO DAILY Budesonide/Formoterol Fumarate [Symbicort 160-4.5 Mcg Inhaler] 2 puffs IH BID RX: Tizanidine HCl 2 mg PO TIDP PRN PRN Reason: MUSCLE SPASMS Roflumilast [Daliresp] 500 mcg PO DAILY Ipratropium [place] [Ipratropium [place] 0.021mg/act NS] 1 spray NS DAILY diazePAM [Valium] 5 mg PO QIDP PRN PRN Reason: Anxiety RX: Clopidogrel Bisulfate [Plavix 75mg Tab] 75 mg PO DAILY Discontinued Ibuprofen [Motrin 600mg Tablet] 600 mg PO Q8HP PRN PRN Reason: pain Aspirin [Lo-Dose Aspirin EC] 81 mg PO DAILY Diclofenac Sodium [Voltaren 100gm Topical Gel] 4 gm TP QID - Problem Reconciliation Problems Reviewed?: Yes
[2019-07-03 06:25] LABS: Eosinophils % 0.1 % (0.1-12.0); Hematocrit 29.8 % (37.0-47.0); Lymphocytes # 0.6 K/mm3 (0.7-4.5); Lymphocytes % 3.7 % (10-50); Mean Corpuscular HGB Conc 30.3 g/dL (31.8-35.4); Mean Corpuscular Volume 80.2 fl (81-99); Mean Platelet Volume 8.9 fl (7.4-10.4); Monocytes # 0.9 K/mm3 (0.1-1.0); Monocytes % 5.8 % (1.7-9.3); Neutrophils # 14.7 K/mm3 (1.8-7.8); Neutrophils % 90.5 % (37.0-80.0); Platelet Count 335 K/mm3 (142-424); Red Blood Count 3.71 M/mm3 (4.20-5.40); Red Cell Distribution Width 16.9 % (11.5-17.5); White Blood Count 16.3 K/mm3 (4.8-10.8)
[2019-07-03 06:26] LABS: Anion Gap 19.1 mEq/L (5-15)
[2019-07-03 06:27] LABS: Calcium 9.2 mg/dl (8.4-10.2)
[2019-07-03 07:38] LABS: Hypochromasia 1+; Lymphocytes % 7 % (10-50); Monocytes % 4 % (2-9); Neutrophils % 89 % (42-76); Nucleated Red Blood Cells 1; Total Cells Counted 100
[2019-07-03 07:39] LABS: Anisocytosis 1+
--- NOTE | 2019-07-03 12:24 | Progress Note ---
Subjective Date: 07/03/19 Time: 09:00 Principal diagnosis: CHF, NSTEMI, CM Interval history: 64-year-old white female in bed in no acute distress. Still with some conversational dyspnea and complaints of chest discomfort underneath the left breast that is worse with deep breathing. Dr. Munguia and I had a long discussion today with the patient and her son and [id number] regarding recommendation for bypass surgery and transfer to [facility]. Multiple questions answered. Patient ultimately agreed to proceed with transfer to for bypass surgery. Exam Vital signs and Labs for Last 24 Hours: Temp Pulse Resp BP Pulse Ox 98.3 F 116 H 18 123/71 95 07/03/19 11:15 07/03/19 11:15 07/03/19 11:15 07/03/19 11:15 07/03/19 11:15 Laboratory Results - last 24 hr 07/02/19 09:49: PT 12.1 H, INR 1.17 H, APTT 27.7 07/02/19 14:38: Urine Color Yellow, Urine Appearance Clear, Urine pH 5.5, Ur Specific [place] 1.020, Urine Protein Negative, Urine Glucose (UA) Negative, Urine Ketones Negative, Urine Blood Trace-i, Urine Nitrate Negative, Urine Bilirubin Negative, Urine Urobilinogen 0.2, Ur Leukocyte Esterase Negative, Urine WBC Occasional, Ur Squamous Epith Cells 3-5, Urine Bacteria Trace 07/02/19 14:51: Troponin I 3.23 H 07/02/19 18:58: APTT 38.5 H D 07/03/19 01:05: APTT 83.5 H* D 07/03/19 05:48: WBC 16.3 H, RBC 3.71 L, Hgb 9.0 L, Hct 29.8 L, MCV 80.2 L, MCH 24.3 L, MCHC 30.3 L, RDW 16.9, Plt Count 335, MPV 8.9, Neut % (Auto) 90.5 H, Lymph % (Auto) 3.7 L, [place] % (Auto) 5.8, Eos % (Auto) 0.1, Baso % (Auto) 0.0 L, Neut # (Auto) 14.7 H, Lymph # (Auto) 0.6 L, [place] # (Auto) 0.9, Eos # (Auto) 0.0, Baso # (Auto) 0.0, Total Counted 100, Neutrophils % (Manual) 89 H, Lymphocytes % (Manual) 7 L, Monocytes % (Manual) 4, Nucleated RBCs 1, Platelet Estimate Normal, Hypochromasia 1+, Anisocytosis 1+, Microcytosis 1+ 07/03/19 05:48: Sodium 131 L, Potassium 4.1, Chloride 90 L, Carbon Dioxide 26, Anion Gap 19.1 H, BUN 24 H D, Creatinine 0.90, Estimated Creat Clear 76, Estimated GFR 63, Est GFR ( Amer) 76, Glucose 132 H, Calcium 9.2 07/03/19 08:00: APTT 55.4 H* D I & O for Last 24 hours: Intake & Output 07/01/19 07/02/19 07/03/19 07/04/19 11:59 11:59 11:59 11:59 Intake Total 354 / 354 Output Total 1700 / 1700 Balance -1346 / -1346 Weight 192 lb 0.009 oz 192 lb 0.009 oz Microbiology Reports for the Last 24 Hours: Microbiology 07/02/19 19:35 Sputum - Expectorated Sputum Gram Stain - Final 07/02/19 19:35 Sputum - Expectorated Sputum Sputum Culture - Preliminary - *Routine HEENT Exam Head: Present: normocephalic Eye: Present: EOMI, PERRL ENT: Present: mucous membranes moist - *Routine Respiratory Exam Present: rales, wheezes. Absent: accessory muscle use, rhonchi - *Routine Cardiovascular Exam Present: RRR. Absent: murmur, gallop, rubs - *Routine Extremities Exam Absent: edema, calf tenderness - *Routine Neurological Exam Present: alert, oriented X3, moving all extremities Progress Note: A&P (1) NSTEMI (non-ST elevated myocardial infarction) Status: Acute Current Visit: Yes (2) COPD (chronic obstructive pulmonary disease) Status: Chronic Current Visit: Yes (3) Tobacco use Status: Chronic Current Visit: Yes (4) HTN (hypertension) Status: Chronic Current Visit: Yes (5) HLD (hyperlipidemia) Status: Chronic Current Visit: Yes (6) PAD (peripheral artery disease) Status: Chronic Current Visit: Yes (7) Obesity Status: Chronic Current Visit: Yes (8) Fibromyalgia Status: Chronic Current Visit: Yes Assessment and Plan for All Diagnoses:: 1. Non-ST elevation ME, continue aspirin and heparin drip. We will add n itroglycerin paste due to complaint of chest pain in setting of multivessel disease with need for bypass surgery. Patient will likely be transferred later today or tomorrow to the [facility]. 2. Continued tobacco use with COPD. Nebulizer treatments per Dr. Munguia. We will continue to try to diurese and hopefully improve patient's pulmonary status. PFTs will be deferred to due to our respiratory therapy department personnel out of work related to coronavirus outbreak. 3. Compensatory tachycardia, improved with diuretic therapy. Will begin adding low-dose beta-silvia as tolerated. 4. Cardiomyopathy with ejection fraction estimated at 30-35%, will start Entresto today. Continue IV diuretic therapy. 5. Peripheral artery disease with history of iliofemoral stenting in the past 6. Status post multiple orthopedic procedures of the spine with placement of titanium rods 7. Remote history of CVA
--- NOTE | 2019-07-03 14:25 | Progress Note ---
Internal Medicine - PN: Subj *Date: 07/03/19 *Time: 08:30 Interval history: Ms. Byrne did fair overnight. Does continue to diuresis approximately 1000cc out in the past 24 hours. Denies any fever, nausea, vomiting, diarrhea. Complains because her bowels have not moved. Still having some chest pain this morning that is intermittent. Last breathing treatment was last night however she is not dyspneic on supplemental oxygen. States she is hungry, would at least like something to drink. Had long conversation with son at bedside and [id number] on the phone about need for CABG and extent of her coronary artery disease. After extensive discussion, patient amenable to transfer to for further treatment. Blood pressure stable, remains tachycardic. Otherwise alert and oriented. States understanding of current problem and plan to address coronary artery disease. Expresses significant concern however for risk factors and worry about successful surgery. Exam Vital signs and Labs for Last 24 Hours: Temp Pulse Resp BP Pulse Ox 98.3 F 113 H 18 123/71 95 07/03/19 11:15 07/03/19 13:59 07/03/19 11:15 07/03/19 11:15 07/03/19 11:15 Laboratory Results - last 24 hr 07/02/19 14:38: Urine Color Yellow, Urine Appearance Clear, Urine pH 5.5, Ur Specific Malcolm 1.020, Urine Protein Negative, Urine Glucose (UA) Negative, Urine Ketones Negative, Urine Blood Trace-i, Urine Nitrate Negative, Urine Bilirubin Negative, Urine Urobilinogen 0.2, Ur Leukocyte Esterase Negative, Urine WBC Occasional, Ur Squamous Epith Cells 3-5, Urine Bacteria Trace 07/02/19 14:51: Troponin I 3.23 H 07/02/19 18:58: APTT 38.5 H D 07/03/19 01:05: APTT 83.5 H* D 07/03/19 05:48: WBC 16.3 H, RBC 3.71 L, Hgb 9.0 L, Hct 29.8 L, MCV 80.2 L, MCH 24.3 L, MCHC 30.3 L, RDW 16.9, Plt Count 335, MPV 8.9, Neut % (Auto) 90.5 H, Lymph % (Auto) 3.7 L, [place] % (Auto) 5.8, Eos % (Auto) 0.1, Baso % (Auto) 0.0 L, Neut # (Auto) 14.7 H, Lymph # (Auto) 0.6 L, [place] # (Auto) 0.9, Eos # (Auto) 0.0, Baso # (Auto) 0.0, Total Counted 100, Neutrophils % (Manual) 89 H, Lymphocytes % (Manual) 7 L, Monocytes % (Manual) 4, Nucleated RBCs 1, Platelet Estimate Normal, Hypochromasia 1+, Anisocytosis 1+, Microcytosis 1+ 07/03/19 05:48: Sodium 131 L, Potassium 4.1, Chloride 90 L, Carbon Dioxide 26, Anion Gap 19.1 H, BUN 24 H D, Creatinine 0.90, Estimated Creat Clear 76, Estimated GFR 63, Est GFR ( Amer) 76, Glucose 132 H, Calcium 9.2 07/03/19 08:00: APTT 55.4 H* D I & O for Last 24 hours: Intake & Output 06/30/19 07/01/19 07/02/19 07/03/19 22:59 23:59 23:59 23:59 Intake Total 954 / 954 Output Total 1100 / 1100 1900 / 1900 Balance -1100 / -1100 -946 / -946 Weight 87.09 kg Microbiology Reports for the Last 24 Hours: Microbiology 07/02/19 19:35 Sputum - Expectorated Sputum Gram Stain - Final 07/02/19 19:35 Sputum - Expectorated Sputum Sputum Culture - Preliminary Narrative: Patient is awake, oriented x3. Neurologic exam intact. Patient is edentulous, no oral lesions. Lungs have expiratory wheezing in the bases and fine crackles in posterior lung parish at bases. Good air movement however. Heart rate regular. No murmurs. No edema Abdomen soft and nontender. Distal perfusion diminished in the extremities with 1+ pulses in both feet but symmetric, upper extremity pulses are normal. Skin exam without rashes; well-healed midline scar in her lumbar region from previous back surgery. Assessment and Plan (1) NSTEMI (non-ST elevated myocardial infarction) Current visit: Yes Status: Acute Category: Medical Code(s): I21.4 - Non-ST elevation (NSTEMI) myocardial infarction (2) COPD (chronic obstructive pulmonary disease) Current visit: Yes Status: Chronic Category: Medical Code(s): J44.9 - Chronic obstructive pulmonary disease, unspecified (3) Tobacco use Current visit: Yes Status: Chronic Category: Social Hx Code(s): Z72.0 - Tobacco use (4) HTN (hypertension) Current visit: Yes Status: Chronic Category: Medical Code(s): I10 - Essential (primary) hypertension (5) HLD (hyperlipidemia) Current visit: Yes Status: Chronic Category: Medical Code(s): E78.5 - Hyperlipidemia, unspecified (6) PAD (peripheral artery disease) Current visit: Yes Status: Chronic Category: Medical Code(s): I73.9 - Peripheral vascular disease, unspecified (7) Obesity Current visit: Yes Status: Chronic Category: Medical Code(s): E66.9 - Obesity, unspecified (8) Fibromyalgia Current visit: Yes Status: Chronic Category: Medical Code(s): M79.7 - Fibromyalgia - Assessment and plan all Dx Assessment and Plan for all problems:: 64-year-old female status post NSTEMI, persistent angina, status post left heart cath. Multivessel disease necessitating CABG. Awaiting transfer to for further management. At this time we will advance goal-directed therapy with initiation of Entresto. Continue to address volume overload with diuresis today. Goal of -1 to -2 L today. Okay to initiate clear liquid diet. -To new supplemental oxygen as needed for goal sats greater than 92% while awake, greater than 88% while asleep -Scheduled nebulizers -Nitropaste for angina -Full code -Nicotine replacement therapy -Bedrest -Resume some of her home medicines today including tizanidine for muscle cramps in her back -Simethicone for gas and bloating Patient's condition is guarded, prognosis dependent upon success of CABG
--- NOTE | 2019-07-03 16:36 | Cardiology Report ---
APPROVED REPORT Violin Tutor: CT Laterality: Bilateral Study Quality: Adequate Indications: pre-op for CABG, history of PAD Risk Factors Hypertension: Hyperlipidemia PAD Smoking Doppler Spectral Velocity Analysis ECA (R) 201.10/162.30 cm/sECA (L) 155.20/155.20 cm/s dICA (R) 71.80/21.70 cm/sdICA (L) 70.60/20.90 cm/s Lefty (R) 104.00/23.90 cm/smICA (L) 57.70/22.50 cm/s pICA (R) 89.00/25.40 cm/spICA (L) 79.70/18.70 cm/s dCCA (R) 58.30/19.70 cm/sdCCA (L) 60.40/15.50 cm/s pCCA (R) 75.40/13.70 cm/spCCA (L) 64.20/16.00 cm/s Vert (R) 73.70/17.10 cm/s ICA/CCA 1.80 ICA/CCA 1.30 Findings Duplex evaluation demonstrates stenosis of the right proximal internal carotid artery in the range of 20-49% with PSV <140 cm/sec, EDV <100 cm/sec, and IC/CC Ratio <4.0. Duplex evaluation demonstrates stenosis of the left proximal internal carotid artery in the range of 20-49% with PSV <140 cm/sec, EDV <100 cm/sec, and IC/CC Ratio <4.0. R ECA >60% stenosis L ECA <60% stenosis upper end of scale Duplex evaluation demonstrates antegrade flow of the right Vertebral Artery. Unable to image left Vertebral Artery. Conclusion Duplex evaluation demonstrates stenosis of the right proximal internal carotid artery in the range of 20-49% with PSV <140 cm/sec, EDV <100 cm/sec, and IC/CC Ratio <4.0. Duplex evaluation demonstrates stenosis of the left proximal internal carotid artery in the range of 20-49% with PSV <140 cm/sec, EDV <100 cm/sec, and IC/CC Ratio <4.0. Duplex evaluation demonstrates antegrade flow of the right Vertebral Artery. Unable to image left Vertebral Artery. Electronically signed by : Gianni Self MD 07/03/2019 16:36:15
== END 2019-07-03 20:45 | disposition short-term general hospital (02) | DRG 281 ==
LOC: ER 09:31 → 2ND 11:46
PROVIDERS: ADMIT Internal Medicine Adolescent Medicine; ATTEND Internal Medicine Adolescent Medicine
CPT/HCPCS: 36415; 71010; 71045; 78451; 80048; 81001; 83605; 83880; 84484; 85007; 85025; 85610; 85730; 87070; 87077; 87186; 87205; 93005; 93306; 93458; 93880; 94640; 94760; 94761; 96374; 96375; 99152; 99153; 99284; C1725; C1760; C1766; C1769; J1644; Q9967

== ENCOUNTER → 2019-08-29 14:42 | Outpatient (CLI) | payer MEDICARE, SELFPAY ==
--- NOTE | 2019-08-29 15:18 | XR_ITS ---
PROCEDURE: XR CHEST 2V CLINICAL HISTORY: on amiod COMPARISON: CXR CHEST(2 VIEWS-NOT PORTABLE) from 10/05/2013 XR CHEST PORTABLE from 07/02/2019 FINDINGS: Normal heart size. No evidence of CHF. There is some hyperinflation with attenuation of the peripheral pulmonary vessels consistent with COPD. CHF has improved compared to 07/02/2019. There is some minimal nodularity in the right upper lobe overlying the 3rd rib anteriorly measuring 8 mm possibly due to an area of fibrosis. Stability may be confirmed with follow-up. There are degenerative changes of the thoracic spine with postsurgical changes of the lumbar spine. Bone plate is present over lower cervical spine. IMPRESSION: COPD with chronic changes. No convincing evidence of amiodarone lung toxicity. Please see above for detail Dictated by: Gianni Self MD 08/29/2019 18:10 Electronically signed by Gianni Self MD in [place] 08/29/2019 18:10
[2019-08-29 17:27] LABS: Alanine Aminotransferase 19 U/L (12-78); Albumin Level 4.5 g/dl (3.5-5.0); Alkaline Phosphatase 94 U/L (38-126); Aspartate Amino Transferase 29 U/L (14-36); Bilirubin,Indirect 1.1 mg/dL (0.0-0.9); Bilirubin,Total 1.1 mg/dl (0.2-1.3); Bilirubin,Unconjugated 1.1 mg/dL (0.0-1.1); Chol/HDL Ratio 3.4 (1-3.5); Cholesterol 256 mg/dl (140-200); HDL Cholesterol 75 mg/dl (40-60); Total Protein,Serum 7.6 g/dl (6.3-8.2); Triglycerides 214 mg/dl (30-150); VLDL Cholesterol 43 mg/dL (0-40)
[2019-08-29 17:38] LABS: Direct LDL Cholesterol 165.93 mg/dL (100-129)
[2019-08-29 17:44] LABS: Free T4 (Free Thyroxine) 1.15 ng/dl (0.78-2.19)
[2019-08-29 17:58] LABS: Thyroid Stimulating Hormone 8.46 uIU/mL (0.465-4.68)
== END ==
PROVIDERS: PCP Family Medicine; Visit Provider Urology
DX: E78.5 Hyperlipidemia, unspecified (principal); I10 Essential (primary) hypertension; I25.10 Atherosclerotic heart disease of native coronary artery without angina pectoris; I73.9 Peripheral vascular disease, unspecified; Z72.0 Tobacco use; Z79.899 Other long term (current) drug therapy
CPT/HCPCS: 36415; 71046; 80061; 80076; 84439; 84443

== ENCOUNTER 2019-10-08 12:51 | Outpatient (RCR) | payer MEDICARE, MEDICAID, SELFPAY | END 2019-11-26 11:08 | disposition home or self-care (01) | LOC: PT 12:51 | DX: I25.10 Atherosclerotic heart disease of native coronary artery without angina pectoris (principal); I21.4 Non-ST elevation (NSTEMI) myocardial infarction | CPT/HCPCS: 93798 ==

== ENCOUNTER → 2019-11-28 13:07 | Outpatient (CLI) | payer MEDICARE, MEDICAID, SELFPAY ==
--- NOTE | 2019-11-28 13:11 | CA_ITS ---
APPROVED REPORT EXAM: Comprehensive 2D, Doppler, and color-flow Echocardiogram [employer] Facility Manager: Deepthi Zaldivar RDCS Ht: 5 ft 3 in Wt: 169lbs BSA: 1.80 BP: 121/70 mmHg Indications: CAD,PAD,HTN,SMOKER,HLP 2D Dimensions LVOT 1.99 cm (M/F) 1.5-2.5 M-Mode Dimensions RVDd 2.55 cm (0.9-2.6) LVDd 5.30 cm (3.5-5.7) LVDs 4.10 cm (3.5-5.7) IVSd 0.92 cm (0.6-1.1) PWd 0.72 cm (0.6-1.1) EF (Teich) 45.20% FS 22.60% EDV (Teich) 135.30 mL ESV (Teich) 74.20 mL LV Diastology E/A Ratio 0.44 Aortic Valve LVOT Max 81.00 (70-110 cm/s) LVOT VTI 14.09 cm Mitral Valve MV A Velocity 61.00 (40-130 cm/s) Left Ventricle Left atrium is mildly enlarged, left ventricle is normal size, mild concentric left ventricular hypertrophy, visually estimated ejection fraction 55% with no regional wall motion abnormality, grade 1 diastolic dysfunction seen without tissue Doppler evidence of raise left atrial pressure. Right Ventricle Right atrium and right ventricular normal size and contractility. Aortic Valve Aortic valve is thickened and calcified, mean gradient across valve is 10 mmHg, this likely represents mild aortic stenosis, there is trace aortic insufficiency. Mitral Valve Mitral valve leaflets are minimally thickened, there is no mitral stenosis, there is mild mitral regurgitation. Tricuspid Valve Tricuspid valve is grossly normal, there is mild tricuspid regurgitation, calculated right ventricular systolic pressure 29 mmHg. Pulmonic Valve Pulmonic valve is poorly visualized. Great Vessels Aortic root is normal size. Pericardium No significant pericardial effusion noted. Conclusion 1. Mildly enlarged left atrium, normal left ventricular size, mild concentric left ventricular hypertrophy, visually estimated ejection fraction 55% with no regional wall motion abnormality, grade 1 diastolic dysfunction seen without tissue Doppler evidence of raise left atrial pressure. 2. Thickened calcified aortic valve with mild aortic stenosis, there is trace aortic insufficiency. 3. Mild mitral and tricuspid regurgitation. Calculated right ventricular systolic pressure is 29 mmHg. 4. No significant pericardial effusion noted. Electronically signed by : Kane Ramsey, 11/29/2019 15:28:45
== END ==
PROVIDERS: PCP Family Medicine; Visit Provider Urology
DX: I25.10 Atherosclerotic heart disease of native coronary artery without angina pectoris (principal); E78.5 Hyperlipidemia, unspecified; I10 Essential (primary) hypertension; I73.9 Peripheral vascular disease, unspecified; Z72.0 Tobacco use; Z79.899 Other long term (current) drug therapy; I34.0 Nonrheumatic mitral (valve) insufficiency
CPT/HCPCS: 93306

== ENCOUNTER → 2019-12-31 10:02 | Outpatient (CLI) | payer MEDICARE, MEDICAID, SELFPAY ==
[2019-12-31 12:48] LABS: Coronavirus 19 IgM Antibody Negative (Negative)
[2019-12-31 13:23] LABS: Coronavirus 19 IgG Antibody Positive (Negative)
== END ==
PROVIDERS: Visit Provider Ophthalmology
DX: Z20.828 Contact with and (suspected) exposure to other viral communicable diseases (principal); U07.1 COVID-19
CPT/HCPCS: 36415; 86328

== ENCOUNTER 2020-01-01 09:25 | Day surgery (SDC) | payer MEDICARE, MEDICAID, SELFPAY ==
[2019-12-26 11:02] VITALS: BMI 31.1
[2020-01-01] VITALS (7 sets, daily range): BP systolic 138–170; BP diastolic 64–92; PULSE 67–86; RESP 18–20; TEMP 36.4–36.8; O2SAT 96–98
== END 2020-01-01 11:03 | disposition home or self-care (01) ==
LOC: OR 09:25
PROVIDERS: PCP Family Medicine; Visit Provider Ophthalmology
DX: H25.813 Combined forms of age-related cataract, bilateral (principal); F41.9 Anxiety disorder, unspecified; M19.90 Unspecified osteoarthritis, unspecified site; I10 Essential (primary) hypertension; F32.9 Major depressive disorder, single episode, unspecified; E78.5 Hyperlipidemia, unspecified; J44.9 Chronic obstructive pulmonary disease, unspecified; E05.90 Thyrotoxicosis, unspecified without thyrotoxic crisis or storm; K21.9 Gastro-esophageal reflux disease without esophagitis; Z90.710 Acquired absence of both cervix and uterus; Z95.818 Presence of other cardiac implants and grafts; Z79.899 Other long term (current) drug therapy
CPT/HCPCS: 66984; V2632

== ENCOUNTER → 2020-01-14 10:31 | Outpatient (CLI) | payer MEDICARE, MEDICAID, SELFPAY ==
[2020-01-14 12:26] LABS: Coronavirus 19 IgG Antibody Positive (Negative); Coronavirus 19 IgM Antibody Negative (Negative)
== END ==
PROVIDERS: Visit Provider Ophthalmology
DX: Z01.818 Encounter for other preprocedural examination (principal)
CPT/HCPCS: 36415; 86328

== ENCOUNTER 2020-01-15 08:01 | Day surgery (SDC) | payer MEDICARE, MEDICAID, SELFPAY ==
[2020-01-10 11:19] VITALS: BMI 31.1
[2020-01-15] VITALS (8 sets, daily range): BP systolic 125–150; BP diastolic 58–80; PULSE 68–77; RESP 16; TEMP 36.4–36.6; O2SAT 98–100
== END 2020-01-15 09:48 | disposition home or self-care (01) ==
LOC: OR 08:02
PROVIDERS: PCP Family Medicine; Visit Provider Ophthalmology
DX: H25.813 Combined forms of age-related cataract, bilateral (principal); H21.89 Other specified disorders of iris and ciliary body; I25.10 Atherosclerotic heart disease of native coronary artery without angina pectoris; J44.9 Chronic obstructive pulmonary disease, unspecified; I10 Essential (primary) hypertension; E78.5 Hyperlipidemia, unspecified; M79.7 Fibromyalgia; E66.9 Obesity, unspecified; M19.90 Unspecified osteoarthritis, unspecified site; F41.9 Anxiety disorder, unspecified; K21.9 Gastro-esophageal reflux disease without esophagitis; Z95.818 Presence of other cardiac implants and grafts; Z90.710 Acquired absence of both cervix and uterus
CPT/HCPCS: 66984; V2632

== ENCOUNTER → 2020-06-26 14:34 | Outpatient (CLI) | payer MEDICARE, MEDICAID, SELFPAY ==
--- NOTE | 2020-06-26 15:11 | XR_ITS ---
PROCEDURE: XR CHEST 2V CLINICAL HISTORY: amio therapy COMPARISON: CR CXR CHEST(2 VIEWS-NOT PORTABLE) from 10/05/2013 CR XR CHEST PORTABLE from 07/02/2019 CR XR CHEST 2V from 08/29/2019 FINDINGS: The cardiomediastinal silhouette and pulmonary vascularity are within normal limits. No lobar consolidation or collapse. There is a nodular opacity in the right upper lobe overlying the 3rd rib with some irregular density at this region. This raises the question of a developing spiculated nodule. Consider chest CT for further evaluation. No evidence of amiodarone lung toxicity. There postsurgical changes in the lumbar spine. No acute bony abnormalities. IMPRESSION: Right upper lobe nodule with possible spiculated margins. Suggest chest CT with contrast for further evaluation Dictated by: Gianni Self MD 06/26/2020 16:59 Gianni Self MD in [facility] 06/26/2020 16:59
[2020-06-26 15:39] LABS: Alanine Aminotransferase 27 U/L (12-78); Albumin Level 4.7 g/dl (3.5-5.0); Alkaline Phosphatase 95 U/L (38-126); Aspartate Amino Transferase 30 U/L (14-36); Bilirubin,Direct 0.2 mg/dl (0.0-0.4); Bilirubin,Indirect 0.6 mg/dL (0.0-0.9); Bilirubin,Total 0.8 mg/dl (0.2-1.3); Bilirubin,Unconjugated 0.6 mg/dL (0.0-1.1)
== END ==
PROVIDERS: PCP Family Medicine; Visit Provider Physician Assistant
DX: E66.9 Obesity, unspecified (principal); E78.2 Mixed hyperlipidemia; I10 Essential (primary) hypertension; I25.10 Atherosclerotic heart disease of native coronary artery without angina pectoris; I73.9 Peripheral vascular disease, unspecified; J44.9 Chronic obstructive pulmonary disease, unspecified; R07.89 Other chest pain; Z68.31 Body mass index [BMI] 31.0-31.9, adult; Z72.0 Tobacco use; Z79.899 Other long term (current) drug therapy
CPT/HCPCS: 36415; 71046; 80076

== ENCOUNTER → 2020-07-29 14:51 | Outpatient (CLI) | payer MEDICARE, SELFPAY ==
--- NOTE | 2020-07-29 14:51 | CT_ITS ---
PROCEDURE: CT HIGH RESOLUTION CHEST CLINICAL HISTORY: on amiodarone Lung nodule Pt on amiodarone No prior COMPARISON: CR CXR CHEST(2 VIEWS-NOT PORTABLE) from 10/05/2013 CR XR CHEST 2V from 08/29/2019 CR XR CHEST 2V from 06/26/2020 TECHNIQUE: Axial images obtained with sagittal and coronal reformats. All CT scans at the facility use one or more dose reduction, viz: automated exposure control, ma/kV adjustment per patient size (including targeted exams where dose is matched to indication, i.e. head), or iterative reconstruction technique. FINDINGS: Coronary artery calcifications and/or stents noted. No mediastinal or hilar mass or adenopathy. COPD changes. There is a spiculated nodule in the mid aspect of the right upper lobe posteriorly corresponding to the radiographic abnormality. This measures approximately 1.3 X 0.8 cm and is suspicious for neoplasm. Posterior to this nodule there is an additional noncalcified nodule measuring 10 x 8 mm. There are numerous small nodular opacities in both upper lobes 4 mm or less. No effusions. No areas of consolidation. High-resolution images do not demonstrate any interlobular septal thickening or honeycombing. Degenerative changes are present in the thoracic spine. No bony destructive process or blastic process apparent. Upper abdominal images are unremarkable. IMPRESSION: 1. There are 2 right upper lobe nodules. 1.3 x 0.8 cm spiculated nodule suspicious for neoplasm. 10 x 8 mm nodule just posterior to the spiculated nodule. This nodule is rounded in nature and is indeterminate. Suggest PET-CT for further evaluation. 2. COPD with small nodular opacities in both upper lobes 4 mm or less. These are nonspecific and could be due to infectious/inflammatory process or could be due to metastasis. Follow-up suggested. 3. No evidence of amiodarone lung toxicity. Dictated by: Gianni Self MD 08/02/2020 16:47 Gianni Self MD in [facility] 08/02/2020 16:47
== END ==
PROVIDERS: PCP Family Medicine; Visit Provider Physician Assistant
DX: Z79.899 Other long term (current) drug therapy (principal)
CPT/HCPCS: 71250

== ENCOUNTER → 2020-09-04 14:40 | Outpatient (CLI) | payer MEDICARE, SELFPAY ==
[2020-09-04 15:53] LABS: Free T4 (Free Thyroxine) 2.36 ng/dl (0.78-2.19)
[2020-09-04 16:08] LABS: Thyroid Stimulating Hormone 1.29 uIU/mL (0.465-4.68)
== END ==
PROVIDERS: Visit Provider Nurse Practitioner Family
DX: Z79.899 Other long term (current) drug therapy (principal)
CPT/HCPCS: 36415; 84439; 84443

== ENCOUNTER → 2020-09-25 12:25 | Outpatient (CLI) | payer MEDICARE, SELFPAY | PROVIDERS: PCP Family Medicine; Visit Provider Internal Medicine Pulmonary Disease | DX: R06.09 Other forms of dyspnea (principal) | CPT/HCPCS: 94060; 94726; 94729 ==

== ENCOUNTER → 2020-12-30 14:02 | Outpatient (CLI) | payer MEDICARE, SELFPAY ==
--- NOTE | 2020-12-30 14:02 | CT_ITS ---
PROCEDURE: CT CHEST WO CON CLINICAL INDICATION: 3-month follow-up CT chest, December 2020 Follow-up pulmonary nodules COMPARISON: CT CT HIGH RESOLUTION CHEST from 07/29/2020 TECHNIQUE: Axial images obtained with sagittal and coronal reformats. All CT scans at the facility use one or more dose reduction, viz: automated exposure control, ma/kV adjustment per patient size (including targeted exams where dose is matched to indication, i.e. head), or iterative reconstruction technique. FINDINGS: HEART AND MEDIASTINAL STRUCTURES: Aortic a arch and severe coronary artery calcifications. Normal heart size. LUNGS AND PLEURAL SPACES: COPD changes. Spiculated nodule in the posterior aspect of the right upper lobe centrally is once again noted and appears slightly larger at 1.5 x 0.9 cm previously 1.2 x 0.9 cm suspicious for neoplasm. Just posterior to this nodule is an additional nodule at 11 mm previously 8 mm. There are numerous small faint nodular opacities in both upper lobes as previously described some of which are slightly more prominent on today's exam.. No effusions. BONY STRUCTURES: No acute bony abnormalities apparent. UPPER ABDOMEN: Unremarkable. ADDITIONAL FINDINGS: No other significant abnormalities. IMPRESSION: Persistent spiculated nodule in the right upper lobe posteriorly slightly larger compared to the previous exam with a small satellite nodule posterior to this region also appears slightly larger. There are several faint nodular opacities in both upper lobes some of which are slightly more prominent. These findings are worrisome for lung cancer with metastasis. The spiculated nodule is immediately adjacent to the posterior segmental bronchus and may be accessible by bronchoscopy for biopsy. Dictated by: Gianni Self MD 12/31/2020 10:18 Gianni Self MD in [facility] 12/31/2020 10:18
== END ==
PROVIDERS: PCP Family Medicine; Visit Provider Internal Medicine Pulmonary Disease
DX: R91.8 Other nonspecific abnormal finding of lung field (principal)
CPT/HCPCS: 71250

== ENCOUNTER → 2021-03-31 14:59 | Outpatient (CLI) | payer MEDICARE, SELFPAY ==
--- NOTE | 2021-03-31 14:59 | CT_ITS ---
PROCEDURE: CT CHEST WO CON CLINICAL INDICATION: 3-month follow-up Follow-up lung nodules COMPARISON: MG DMSB DIG MAMM-SCREEN KIT from 07/11/[address] HIGH RESOLUTION CHEST from 07/29/2020 CT,PT PET/CT from 10/06/[address] CHEST WO CON from 12/30/2020 TECHNIQUE: Axial images obtained with sagittal and coronal reformats. All CT scans at the facility use one or more dose reduction, viz: automated exposure control, ma/kV adjustment per patient size (including targeted exams where dose is matched to indication, i.e. head), or iterative reconstruction technique. FINDINGS: HEART AND MEDIASTINAL STRUCTURES: There is a small mediastinal lymph node in the AP window measuring approximately 11 mm. This does not appear significantly changed. Coronary artery calcifications are present. LUNGS AND PLEURAL SPACES: At 1.6 x 1 cm previously 1.6 x 1 cm. Small satellite nodules present posterior to the larger nodule measuring 1 x 0.8 cm not significantly changed. There are numerous other smaller pulmonary nodular opacities in both lungs which do not appear significantly changed. No effusions. BONY STRUCTURES: No acute bony abnormalities apparent. UPPER ABDOMEN: Unremarkable. ADDITIONAL FINDINGS: There is increased soft tissue density in the retroareolar region of the left breast. This may only be related to asymmetric tissue however, mammogram is suggested for further evaluation IMPRESSION: Overall no significant change in the spiculated right upper lobe nodule with satellite nodule and other smaller pulmonary nodules. Neoplasm is still considered based on the appearance of these lesions. Increased soft tissue density in the retroareolar region on the left. This area was not previously imaged and may only represent fibroglandular tissue. Mammogram and ultrasound however is suggested for further evaluation to exclude underlying breast mass.. Dictated by: Gianni Self MD 04/04/2021 12:28 Gianni Self MD in [place] 04/04/2021 12:28
== END ==
PROVIDERS: PCP Family Medicine; Visit Provider Internal Medicine Pulmonary Disease
DX: R91.8 Other nonspecific abnormal finding of lung field (principal)
CPT/HCPCS: 71250

== ENCOUNTER 2021-07-20 16:38 | Emergency (ER) | payer MEDICARE, SELFPAY ==
[2021-07-20 18:00] VITALS: BP 142/88; PULSE 88; RESP 18; TEMP 36.9; O2SAT 98; BMI 41.5
--- NOTE | 2021-07-20 18:42 | HMH.EDUTC ---
[facility] Disposition Clinical Impression: Finger laceration Qualifiers: Encounter type: initial encounter Finger: middle finger Damage to nail status: without damage Foreign body presence: with foreign body Laterality: left Qualified Code(s): S61.223A - Laceration with foreign body of left middle finger without damage to nail, initial encounter Disposition: Home, Self-Care Condition on Discharge: Good Instructions: DI for Laceration Repair-Skin Closure Strips, DI for Laceration Repair-Skin Glue Additional Instructions: Keep wound clean and dry Watch for signs of infection such as redness, drainage and swelling Return if needed Straight to ER if any life threatening symptoms Follow up with your Family Doctor if needed Prescriptions: cephALEXin [cephALEXin 500mg capsule*] 500 mg PO BID 7 Days #14 cap Transmission Status: Pending to [facility] Referrals: Mary Ordoñez APRN [Primary Care Provider] - Time of Disposition: 18:48 Medical Decision Making - Garry Inquiry Pt receiving controlled substance: No Garry was queried for this patient: No Vital Signs: 07/20/21 18:00 Temperature 98.5 F Temperature Source Oral Pulse Rate [Right Brachial] 88 Respiratory Rate 18 Blood Pressure [Right Arm] 142/88 H Blood Pressure Mean [Right Arm] 106 02 Sat by Pulse Oximetry 98 Oxygen Delivery Method Room Air Medical Decision Narrative: Patient state that she has taken Cephalexin in the past without complications or reactions [facility] HPI - General Stated complaint: ao 400@home Lac L Index fingrer Time Seen by Provider: 07/20/21 18:20 Mode of Arrival: Ambulatory Source of Information: Patient Limitations: No Limitations Description of Symptoms (Recalled from Triage Doc. by RN): PATIENT REPORTS CUTTING HER LEFT INDEX FINGER WITH KNIFE TODAY AND IS HAVING DIFFICULTY GETTING IT TO STOP BLEEDING HEENT Symptoms (Recalled from RN notes): No Resp Symptoms (Recalled from RN notes): No Skin Symptoms (Recalled from RN notes): Yes MS Symptoms (Recalled from RN notes): No Functional Status (Recalled from RN notes): WNL - History of Present Illness Provider Complaint: Patient states that she was cutting a onion with a knife when it slipped and cut her left middle finger States that it was like a flap of skin but she couldnt get it to quit bleeding so she came in - Related Data Home Medications Medication Instructions Recorded Confirmed Budesonide/Formoterol Fumarate 2 puffs IH BID 05/16/19 06/05/21 [Symbicort 160-4.5 Mcg Inhaler] Fluticasone Propionate [Flonase 2 spr NS DAILY 05/16/19 06/05/21 50mcg nasal spray 16gm] Hydrocodone/Acetaminophen [[place] 1 tab PO TID PRN 05/16/19 06/05/21 7.5-325 Tablet] Roflumilast [Daliresp] 500 mcg PO DAILY 05/16/19 06/05/21 Tiotropium Coy [Spiriva 2 puffs IH DAILY 05/16/19 06/05/21 Respimat] diazePAM [Valium 5mg tablets] 5 mg PO QIDP PRN 05/16/19 06/05/21 Lansoprazole 30 mg PO DAILY 07/02/19 06/05/21 docusate sodium 100 mg capsule 100 mg PO DAILY 08/29/19 06/05/21 multivitamin with iron 1 tab PO DAILY tab 08/29/19 06/05/21 nitroglycerin 0.4 mg sublingual 0.4 mg SUBLINGUAL Q5M PRN 08/29/19 06/05/21 tablet cetirizine 10 mg capsule 10 mg PO BID cap 12/27/19 06/05/21 ferrous sulfate 325 mg (65 mg 325 mg PO DAILY tab 06/26/20 06/05/21 iron) tablet diclofenac sodium 1 % topical gel 2 g TOPICAL QID 08/28/20 06/05/21 nicotine 7 mg/24 hr daily 1 patch TRANSDERMA Q24H 08/28/20 06/05/21 transdermal patch levothyroxine 50 mcg tablet 50 mcg PO DAILY tab 12/04/20 06/05/21 Previous Rx's Medication Instructions Recorded evolocumab 140 mg/mL subcutaneous 140 mg SQ Q2W #2 ml 09/04/20 pen injector azelastine 205.5 mcg (0.15 %) 1 spray INTRANASAL HS #30 ml 10/16/20 nasal spray lisinopril 20 mg tablet 20 mg PO DAILY #90 tab 12/04/20 metoprolol succinate 50 mg 50 mg PO DAILY #90 tab 12/04/20 tablet,extended release 24 hr ezetimibe 10 mg tablet 10 mg PO ASHLI
[2021-07-20 18:51] VITALS: BP 142/88; PULSE 88; RESP 18; TEMP 36.9; O2SAT 98
== END 2021-07-20 18:53 | disposition home or self-care (01) ==
PROVIDERS: Emergency Provider Nurse Practitioner; PCP Nurse Practitioner Family
DX: S61.223A Laceration with foreign body of left middle finger without damage to nail, initial encounter (principal); G45.9 Transient cerebral ischemic attack, unspecified; R07.9 Chest pain, unspecified; I10 Essential (primary) hypertension; I35.0 Nonrheumatic aortic (valve) stenosis; I25.10 Atherosclerotic heart disease of native coronary artery without angina pectoris; I25.2 Old myocardial infarction; I73.9 Peripheral vascular disease, unspecified; K21.9 Gastro-esophageal reflux disease without esophagitis; E78.5 Hyperlipidemia, unspecified; J44.9 Chronic obstructive pulmonary disease, unspecified; F32.A Depression, unspecified; F41.9 Anxiety disorder, unspecified; F17.210 Nicotine dependence, cigarettes, uncomplicated; Z79.51 Long term (current) use of inhaled steroids; Z79.82 Long term (current) use of aspirin; Z79.899 Other long term (current) drug therapy; Z88.8 Allergy status to other drugs, medicaments and biological substances; Z91.041 Radiographic dye allergy status; Z95.0 Presence of cardiac pacemaker; Z95.1 Presence of aortocoronary bypass graft
CPT/HCPCS: 12001; G0168; 99213; G0463

== ENCOUNTER → 2021-07-29 13:53 | Outpatient (CLI) | payer MEDICARE, SELFPAY ==
[2021-07-29 14:46] LABS: Alanine Aminotransferase 22 U/L (12-78); Bilirubin,Unconjugated 0.2 mg/dL (0.0-1.1)
[2021-07-29 14:47] LABS: Albumin Level 4.1 g/dl (3.5-5.0); Alkaline Phosphatase 102 U/L (38-126); Aspartate Amino Transferase 28 U/L (14-36); Bilirubin,Direct 0.3 mg/dl (0.0-0.4); Bilirubin,Indirect 0.2 mg/dL (0.0-0.9); Bilirubin,Total 0.5 mg/dl (0.2-1.3); Chol/HDL Ratio 2.1 (1-3.5); Cholesterol 136 mg/dl (140-200); HDL Cholesterol 64 mg/dl (40-60); Triglycerides 222 mg/dl (30-150); VLDL Cholesterol 44 mg/dL (0-40)
[2021-07-29 15:00] LABS: Direct LDL Cholesterol 48.88 mg/dL (100-129)
== END ==
PROVIDERS: Visit Provider Nurse Practitioner Family
DX: E66.9 Obesity, unspecified (principal); E78.5 Hyperlipidemia, unspecified; I10 Essential (primary) hypertension; I25.10 Atherosclerotic heart disease of native coronary artery without angina pectoris; I35.0 Nonrheumatic aortic (valve) stenosis; I73.9 Peripheral vascular disease, unspecified; J44.9 Chronic obstructive pulmonary disease, unspecified; Z72.0 Tobacco use; R07.9 Chest pain, unspecified; Z68.31 Body mass index [BMI] 31.0-31.9, adult
CPT/HCPCS: 36415; 80061; 80076

== ENCOUNTER → 2021-09-29 12:40 | Outpatient (CLI) | payer MEDICARE, SELFPAY ==
--- NOTE | 2021-09-29 12:41 | CT_ITS ---
FINAL REPORT TECHNIQUE: Axial images were obtained from the lung apex to the mid abdomen by computed tomography. Coronal reformatted images were obtained. This study was performed with techniques to keep radiation doses as low as reasonably achievable, (ALARA). Individualized dose reduction techniques using automated exposure control or adjustment of mA and/or kV according to the patient''s size were employed. CLINICAL HISTORY: 6 Month follow-up, September 2021 COMPARISON: March 31, 2021 FINDINGS: There is no axillary adenopathy. There is no hilar or mediastinal adenopathy. There are severe coronary artery calcifications. Heart size is normal. There is no pericardial or pleural effusion. Limited images of the upper abdomen are unremarkable. There are mild changes of emphysema with mild scarring. A 14 mm spiculated right upper lobe nodule previously measured 14 mm. There are multiple other smaller nodules all of which are visually stable. IMPRESSION: Stable pulmonary nodules. Recommend additional follow-up in 6 months. Severe coronary artery calcification. Reviewed, Interpreted and Dictated by Maximo Ordonez III, MD Transcribed by Jean Paul Jesus Authenticated and [facility]
== END ==
PROVIDERS: PCP Nurse Practitioner Family; Visit Provider Internal Medicine Pulmonary Disease
DX: R91.8 Other nonspecific abnormal finding of lung field (principal)
CPT/HCPCS: 71250

== ENCOUNTER → 2021-12-14 12:45 | Outpatient (CLI) | payer MEDICARE, SELFPAY ==
--- NOTE | 2021-12-14 12:45 | CT_ITS ---
FINAL REPORT CLINICAL HISTORY: Lower extremity claudication, swelling FINDINGS: Post contrast axial imaging of the aorta and bilateral lower extremity was obtained and reviewed. This study was performed with techniques to keep radiation doses as low as reasonably achievable (ALARA). Individualized dose reduction techniques using automated exposure control or adjustment of mA and/or kV according to the patient's size were employed. There are dense vascular calcifications at the iliac bifurcation. The abdominal aorta is normal in caliber. Mild narrowing is seen at the origin of the celiac axis measuring less than 50%. The SMA and MARCEL are patent. Dual right and single left renal arteries are patent. Linear filling defect is seen of the distal abdominal aorta which may be related to minimal, short segment dissection. This is best seen on images 35-38 of series 3. Common iliac stenosis is seen on the right measuring up to 70%. Common iliac stenosis on the left measures less than 50%. A right external iliac stent is in place. Right: There are extensive vascular calcifications throughout the right SFA. Individual stenosis measure up to 50% in the mid SFA. Mid SFA is contiguous with a patent popliteal artery. Three-vessel runoff is seen to the foot. Left: A vascular stent is seen in the proximal left SFA. It is unclear if contrast is present within the stent, therefor, patency can not be determined. SFA immediately distal to the stent is relatively small caliber. The left popliteal artery is patent. Two vessel runoff is seen to the left foot via the anterior tibial and peroneal arteries. There is streak artifact from posterior fusion hardware in the lower lumbar spine. The spleen, adrenal glands, pancreas and kidneys are without acute abnormality. Gallbladder is present. IMPRESSION: Poor visualization of contrast in the stented proximal left SFA concerning for occluded segment. 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 50% stenosis of the mid right SFA. 70% stenosis of the right common iliac artery. Catheter directed angiography may be helpful for further evaluation . Reviewed, Interpreted and Dictated by Len Hurtado MD Transcribed by Lianne Izquierdo Authenticated and [facility]
== END ==
PROVIDERS: PCP Family Medicine; Visit Provider Nurse Practitioner Family
DX: E78.2 Mixed hyperlipidemia (principal); I10 Essential (primary) hypertension; I25.10 Atherosclerotic heart disease of native coronary artery without angina pectoris; L65.9 Nonscarring hair loss, unspecified; R68.89 Other general symptoms and signs; R91.1 Solitary pulmonary nodule; Z72.0 Tobacco use; I70.213 Atherosclerosis of native arteries of extremities with intermittent claudication, bilateral legs
CPT/HCPCS: 75635; Q9967

== ENCOUNTER → 2021-12-30 12:19 | Outpatient (CLI) | payer MEDICARE, SELFPAY ==
[2021-12-30 13:17] LABS: Basophils # 0.2 K/mm3 (0-0.2); Basophils % 2.1 % (0.1-2.0); Eosinophils # 0.2 K/mm3 (0.0-0.4); Eosinophils % 2.9 % (0.1-12.0); Hematocrit 46.3 % (37.0-47.0); Hemoglobin 14.4 g/dL (12.2-16.2); Lymphocytes # 1.4 K/mm3 (0.7-4.5); Lymphocytes % 17.1 % (10-50); Mean Corpuscular HGB Conc 31.1 g/dL (31.8-35.4); Mean Corpuscular Volume 99.5 fl (81-99); Mean Platelet Volume 8.8 fl (7.4-10.4); Monocytes # 0.6 K/mm3 (0.1-1.0); Monocytes % 6.8 % (1.7-9.3); Neutrophils # 5.8 K/mm3 (1.8-7.8); Neutrophils % 71.1 % (37.0-80.0); Platelet Count 241 K/mm3 (142-424); Red Blood Count 4.66 M/mm3 (4.20-5.40); Red Cell Distribution Width 14.9 % (11.5-17.5); White Blood Count 8.2 K/mm3 (4.8-10.8)
[2021-12-30 13:50] LABS: Anion Gap 10.2 mEq/L (5-15); Blood Urea Nitrogen 11 mg/dl (7-17); Carbon Dioxide 29 mmol/L (22.0-30.0); Chloride 99 mmol/L (98-107); Estimated Glomerular Filt Rate 62 ml/min (>60); GFR (African American) 75 ML/MIN (>60); Glucose 96 mg/dl (74-100); Potassium 4.2 mmoL/L (3.5-5.1); Sodium 134 mmol/L (136-145)
== END ==
PROVIDERS: PCP Family Medicine; Visit Provider Internal Medicine Cardiovascular Disease
DX: E78.2 Mixed hyperlipidemia (principal); I10 Essential (primary) hypertension; I25.10 Atherosclerotic heart disease of native coronary artery without angina pectoris; I35.0 Nonrheumatic aortic (valve) stenosis; I48.0 Paroxysmal atrial fibrillation; I73.9 Peripheral vascular disease, unspecified; J44.9 Chronic obstructive pulmonary disease, unspecified; R93.5 Abnormal findings on diagnostic imaging of other abdominal regions, including retroperitoneum; Z72.0 Tobacco use; Z01.812 Encounter for preprocedural laboratory examination; Z20.822 Contact with and (suspected) exposure to COVID-19; I63.9 Cerebral infarction, unspecified
CPT/HCPCS: 36415; 80048; 85025; C9803; U0003; U0005

== ENCOUNTER 2022-01-01 09:23 | Day surgery (SDC) | payer MEDICARE, SELFPAY ==
[2022-01-01] VITALS (19 sets, daily range): BP systolic 120–211; BP diastolic 65–127; PULSE 89–110; RESP 15–18; TEMP 36.6–36.8; O2SAT 90–97; BMI 33.3
--- NOTE | 2022-01-01 07:07 | IR_ITS ---
APPROVED REPORT Patient Location: Outpatient Oracle Dba: FREDERICK Limon RT (R) PROCEDURES Right femoral arterial access Right retrograde femoral angiogram Left femoral arterial access Left retrograde femoral angiogram Right radial artery access Catheter placement in the distal abdominal aorta via the right radial artery access Catheter placement in the right common iliac artery with right common iliac artery antegrade angiogram Catheter placed in the left common coronary with left common cardiac antegrade angiogram Catheter placement in the right common iliac artery with right common artery antegrade angiogram Catheter placed in the left common iliac artery with left common artery antegrade angiogram Catheter placed in the distal abdominal aorta with distal abdominal aortogram Angioplasty to the distal abdominal aorta Bare-metal stent deployment to the distal abdominal aorta extending into the right common iliac artery Bare-metal stent deployment to the distal abdominal aorta extending into the left common iliac artery INDICATION Aortic dissection to the distal abdominal aorta, Peripheral artery disease, Bilateral common iliac artery stenosis, [place] claudication class III Informed consent was obtained prior to the procedure. COMPLICATIONS None Estimated Blood Loss: less than 10 ml TECHNIQUE 1% lidocaine was used anesthetize right groin the right coronary was accessed via Salinger technique and a 6 Yemeni sheath was placed in the right femoral artery. Retrograde angiography was performed. A long 6 [place]i Brite tip 23 cm sheath was advanced after the short 6 [place]i was removed. The catheter was placed in the distal abdominal artery where retrograde angiography demonstrated a dissection was present. It was apparent from the previous CAT scan as well as angiography that a previous stent which was placed was a subintimal placement as a dissection flap clearly impeded flow into the right common iliac artery. 1% lidocaine was then used anesthetize the left groin and left femoral arteries accessed via the Salinger technique. This was repeated in the long 23 cm Brite tip sheath was advanced into the left common femoral artery. Distal abdominal aorta and left common neck artery retrograde angiography was performed via the sheath. Therapeutic heparin was administered and a wire was placed into the distal abdominal aorta and thoracic aorta via the left groin. Access could not be made into the aorta from the right leg due to the large dissection flap which was present prior to this procedure beginning as evidenced by the preoperative CAT scan. Multiple catheters were used including a Sos Omni rim catheter from both the right leg and the left leg and trying to push through the dissection flap and into the true lumen. After Sos Omni catheter was used room catheter multiple wires eventually it was decided to proceed with right radial arterial access. An arterial cocktail using lidocaine verapamil nitroglycerin was administered and a 119 cm hydrophilic sheath was advanced under fluoroscopic guidance into the distal abdominal aorta. A trailblazer angled catheter was placed distally and a advantage wire was used to push through the aortic dissection flap into the stent in the right common iliac artery. The trailblazer was advanced and the wire was removed. Right common iliac artery and external iliac artery antegrade angiography was performed to demonstrate the catheter was in fact in the lumen. Following this a 400 cm wire was placed into the right common femoral artery via the right radial artery. An 8 mm x 57 mm balloon mounted stent was then placed at the radial access site into the distal abdominal a
--- NOTE | 2022-01-01 14:27 | SUR.PHASEII ---
stated he wished pt to be on plavix, notified MD that pt has it listed as an allergy, stated he only wants her to have it for one month and to prescribe it to her
--- NOTE | 2022-01-01 15:06 | PC.NURSE ---
Courtesy Tech Rounds: transferred pt from stretcher to bed x2 assist bed in low position call light within reach brought pt water
[2022-01-01 17:20] LABS: CATHL Activated Clotting Time 270 SEC (74-125)
[2022-01-01 17:20] LABS: CATHL Activated Clotting Time 330 SEC (74-125)
[2022-01-02] VITALS: BP 151/70; PULSE 100; PULSE 92; RESP 18; TEMP 36.6; O2SAT 95
[2022-01-02 04:00] VITALS: BP 129/63; PULSE 70; PULSE 84; RESP 17; TEMP 36.6; O2SAT 96
--- NOTE | 2022-01-02 04:37 | PC.NURSE ---
NO CUTE CHANGES SINCE PREVIOUS ASSESSMENT. REMAINS ALERT AND ORIENTED X4. HAS RESTED INTERMITTENTLY. LUNG SOUNDS ARE WHEEZY ON EXPIRATION. HAS HAD A NON-PRODUCTIVE INTERMITTENT COUGH. CATH SITES ON RIGHT WRIST AND BILATERAL GROINS ARE COVERED AND DRESSINGS ARE C/D/I. VSS. PT HAS BEEN UP TO THE BATHROOM WITH STANDBY ASSIST. NO C/O CP OR SOB. NO C/O N/V/D. PT C/O OF A HEADACHE ONCE THIS SHIFT AND WAS MEDICATED PER JUN.
[2022-01-02 06:00] VITALS: BMI 34.2
--- NOTE | 2022-01-02 07:19 | PC.NURSE ---
PT HAS LISTED ALLERGY TO PLAVIX. DR KEANE WAS PAGED AND MADE AWARE OF ALLERGY. LAKHWINDER CONFIRMED IT WAS OKAY TO GIVE PLAVIX 75 MG PO PRIOR TO D/C.
[2022-01-02 07:49] LABS: Blood Urea Nitrogen 15 mg/dl (7-17); Calcium 8.6 mg/dl (8.4-10.2); Carbon Dioxide 25 mmol/L (22.0-30.0); Chloride 108 mmol/L (98-107); Creatinine Clearance Estimated 75 mL/min (50-200); Estimated Glomerular Filt Rate 62 ml/min (>60); GFR (African American) 75 ML/MIN (>60); Glucose 112 mg/dl (74-100); Sodium 138 mmol/L (136-145)
[2022-01-02 07:50] LABS: Basophils # 0.1 K/mm3 (0-0.2); Basophils % 0.5 % (0.1-2.0); Eosinophils # 0.1 K/mm3 (0.0-0.4); Eosinophils % 0.5 % (0.1-12.0); Hematocrit 41.5 % (37.0-47.0); Hemoglobin 13.5 g/dL (12.2-16.2); Lymphocytes # 1.3 K/mm3 (0.7-4.5); Lymphocytes % 6.4 % (10-50); Mean Corpuscular HGB Conc 32.6 g/dL (31.8-35.4); Mean Corpuscular Hemoglobin 32.4 pg (27.0-31.2); Mean Corpuscular Volume 99.4 fl (81-99); Mean Platelet Volume 9.1 fl (7.4-10.4); Monocytes # 1.1 K/mm3 (0.1-1.0); Monocytes % 5.2 % (1.7-9.3); Neutrophils # 18.2 K/mm3 (1.8-7.8); Neutrophils % 87.4 % (37.0-80.0); Platelet Count 233 K/mm3 (142-424); Red Blood Count 4.17 M/mm3 (4.20-5.40); White Blood Count 20.8 K/mm3 (4.8-10.8)
--- NOTE | 2022-01-02 08:24 | HMH.PHACL ---
PHA French Tutor Discharge Med Clinical Science Consultant: Jodi Byrne has received discharge medication counseling on the following medications: ASPIRIN PLAVIX (NEW) ZETIA Other medications were not indicated at this time due to patient receiving peripheral stent. New prescription for Plavix was sent to [facility]. All questions and concerns were answered. Patient verbalized understanding. -Jorje Cassidy, TutuD
[2022-01-02 08:38] LABS: MANUAL DIFFERENTIAL MANUAL DIFFERENTIAL (MANUAL DIFF)
[2022-01-02 09:41] LABS: Lymphocytes % 9 % (10-50); Monocytes % 2 % (2-9); Neutrophils % 89 % (42-76); Platelet Estimate Normal; Total Cells Counted 100
[2022-01-02 09:42] LABS: Burr Cells 1+
== END 2022-01-02 08:38 | disposition home or self-care (01) ==
LOC: CATHLAB 09:25 → 2ND 12:31
PROVIDERS: PCP Family Medicine; Visit Provider Internal Medicine
DX: E78.2 Mixed hyperlipidemia (principal); I10 Essential (primary) hypertension; I25.10 Atherosclerotic heart disease of native coronary artery without angina pectoris; I35.0 Nonrheumatic aortic (valve) stenosis; I48.0 Paroxysmal atrial fibrillation; J44.9 Chronic obstructive pulmonary disease, unspecified; R93.5 Abnormal findings on diagnostic imaging of other abdominal regions, including retroperitoneum; I70.213 Atherosclerosis of native arteries of extremities with intermittent claudication, bilateral legs; F17.210 Nicotine dependence, cigarettes, uncomplicated; I77.1 Stricture of artery; I71.02 Dissection of abdominal aorta; Z79.899 Other long term (current) drug therapy
CPT/HCPCS: 36415; 37221; 37223; 80048; 85007; 85025; 85347; 99152; 99153; C1725; C1760; C1769; C1876; C1894; J1644; Q9967

== ENCOUNTER → 2022-01-12 13:50 | Outpatient (CLI) | payer MEDICARE, SELFPAY ==
--- NOTE | 2022-01-12 13:56 | CA_ITS ---
FINAL REPORT CLINICAL HISTORY: PAIN,REDNESS AND KNOT RT WRIST CATH SITE,PT HAD PROCEDURE 01/01/22 WITH RIGHT WRIST ACCESS FINDINGS: UPPER EXTREMITY ARTERIAL DUPLEX Limited duplex images of the right radial artery were obtained. There is occlusive thrombus in the distal right radial artery. IMPRESSION: Occlusive thrombus in the distal right radial artery. The patient is in there is, Melvina, was notified of these findings by the production control technologist. Reviewed, Interpreted and Dictated by Len Hurtado MD Transcribed by Jean Paul Jesus Authenticated and [facility]
== END ==
PROVIDERS: PCP Family Medicine; Visit Provider Internal Medicine
DX: I73.9 Peripheral vascular disease, unspecified (principal)
CPT/HCPCS: 93931

== ENCOUNTER → 2022-01-21 12:23 | Outpatient (CLI) | payer MEDICARE, SELFPAY ==
[2022-01-21 13:08] LABS: Basophils # 0.1 K/mm3 (0-0.2); Basophils % 1.3 % (0.1-2.0); Eosinophils # 0.3 K/mm3 (0.0-0.4); Eosinophils % 4.3 % (0.1-12.0); Hematocrit 46.4 % (37.0-47.0); Hemoglobin 14.6 g/dL (12.2-16.2); Lymphocytes # 1.4 K/mm3 (0.7-4.5); Lymphocytes % 19.4 % (10-50); Mean Corpuscular HGB Conc 31.5 g/dL (31.8-35.4); Mean Corpuscular Hemoglobin 31.2 pg (27.0-31.2); Mean Corpuscular Volume 98.8 fl (81-99); Mean Platelet Volume 8.6 fl (7.4-10.4); Monocytes # 0.6 K/mm3 (0.1-1.0); Monocytes % 8.3 % (1.7-9.3); Neutrophils # 4.9 K/mm3 (1.8-7.8); Neutrophils % 66.7 % (37.0-80.0); Platelet Count 278 K/mm3 (142-424); Red Cell Distribution Width 14.9 % (11.5-17.5); White Blood Count 7.3 K/mm3 (4.8-10.8)
[2022-01-21 14:17] LABS: Anion Gap 14.5 mEq/L (5-15); Blood Urea Nitrogen 12 mg/dl (7-17); Calcium 9.2 mg/dl (8.4-10.2); Carbon Dioxide 30 mmol/L (22.0-30.0); Chloride 98 mmol/L (98-107); Estimated Glomerular Filt Rate 62 ml/min (>60); GFR (African American) 75 ML/MIN (>60); Glucose 105 mg/dl (74-100); Potassium 4.5 mmoL/L (3.5-5.1); Sodium 138 mmol/L (136-145)
== END ==
PROVIDERS: PCP Family Medicine; Visit Provider Internal Medicine
DX: I74.2 Embolism and thrombosis of arteries of the upper extremities (principal)
CPT/HCPCS: 36415; 80048; 85025

== ENCOUNTER 2022-02-02 12:56 | Outpatient (RCR) | payer MEDICARE, SELFPAY | END 2022-04-12 14:00 | disposition home or self-care (01) | LOC: PT 12:56 | PROVIDERS: Visit Provider Internal Medicine | DX: R42 Dizziness and giddiness (principal); I25.10 Atherosclerotic heart disease of native coronary artery without angina pectoris; I70.213 Atherosclerosis of native arteries of extremities with intermittent claudication, bilateral legs | CPT/HCPCS: 93668 ==

== ENCOUNTER → 2022-04-28 12:42 | Outpatient (CLI) | payer MEDICARE, SELFPAY ==
--- NOTE | 2022-04-28 12:46 | US_ITS ---
FINAL REPORT CLINICAL HISTORY: CLAUDICATION,PVD,SMOKER,HTN,HLD,PRIOR ILIAC STENTING FINDINGS: LOWER EXTREMITY SEGMENTAL PRESSURE MEASUREMENTS FINDINGS: Pressure indices are as follows: RIGHT LOWER EXTREMITY: Lower thigh: 0.88 Calf: 0.88 Ankle, posterior tibial artery: 0.94 Ankle, dorsalis pedis: 0.89 Toe: 0.55 Comments: Borderline low LEFT LOWER EXTREMITY: Lower thigh: 0.64 Calf: 0.65 Ankle, posterior tibial artery: 0.66 Ankle, dorsalis pedis: 0.59 Toe: 0.46 Comments: Diffusely diminished suggestive of inflow disease likely involving the iliac distribution. IMPRESSION: Findings suggestive of left lower extremity inflow disease likely involving the iliac or common femoral distribution. Reviewed, Interpreted and Dictated by Fina Interiano MD Transcribed by Rosina Carranza Authenticated and [facility]
== END ==
PROVIDERS: PCP Family Medicine; Visit Provider Internal Medicine Cardiovascular Disease
DX: I73.9 Peripheral vascular disease, unspecified (principal)
CPT/HCPCS: 93923

== ENCOUNTER → 2022-06-04 15:03 | Outpatient (CLI) | payer MEDICARE, SELFPAY ==
--- NOTE | 2022-06-04 15:17 | XR_ITS ---
FINAL REPORT CLINICAL HISTORY: PARESTHESIA AND PAIN OF BOTH UPPER EXTREMITIES FINDINGS: CERVICAL SPINE Five views were obtained. There is anterior interbody fusion at C5-6 and C6-7. There is no acute fracture. There is no malalignment. There is mild anterior osteophyte formation at C4-5. There is no soft tissue abnormality. IMPRESSION: Mild degenerative change with no acute bony abnormality. Reviewed, Interpreted and Dictated by Len Hurtado MD Transcribed by Hattie Blandon Authenticated and [facility]
== END ==
PROVIDERS: PCP Family Medicine; Visit Provider Family Medicine
DX: R20.2 Paresthesia of skin (principal); M79.601 Pain in right arm; M79.602 Pain in left arm
CPT/HCPCS: 72050

== ENCOUNTER → 2022-06-23 13:34 | Outpatient (CLI) | payer MEDICARE, SELFPAY ==
--- NOTE | 2022-06-23 13:35 | CT_ITS ---
FINAL REPORT CLINICAL HISTORY: abnl kendra, pad/claudicaiton FINDINGS: Post contrast axial imaging of the aorta and bilateral lower extremity was obtained and reviewed. This study was performed with techniques to keep radiation doses as low as reasonably achievable (ALARA). Individualized dose reduction techniques using automated exposure control or adjustment of mA and/or kV according to the patient's size were employed. There is no evidence of aortic aneurysm or dissection. There is atherosclerotic disease. There is narrowing at the origin of the celiac axis approximately 50%. The branches of the celiac artery are patent. There is calcification at the origin of the superior mesenteric artery with approximately 25% stenosis. The bilateral renal arteries are patent. There is mild bilateral renal artery stenosis. The inferior mesenteric artery is patent. There are bilateral common iliac artery stents. The bilateral common iliac arteries are patent without stenosis. The bilateral internal and external iliac arteries are patent. Right: There is 25-50% stenosis of the common femoral artery. The profunda artery is patent. There is atherosclerotic disease throughout the superficial femoral artery without occlusion or significant stenosis. The popliteal artery is patent. There is three-vessel runoff in the calf. The anterior tibial artery is not visualized past the mid calf. Left: The common femoral artery is patent. There is a stent within the superficial femoral artery. The stent may be occluded. Contrast is not confidently identified. The profunda artery is patent. At the mid to distal thigh along the inferior margin of the stent, a small patent superficial femoral artery is visualized. The popliteal artery is patent. There is atherosclerotic disease of the posterior tibial artery throughout the calf which appears to have an area of complete occlusion. The peroneal and anterior tibial arteries are patent to the ankle. There is extrahepatic biliary ductal dilatation, distal duct stone is not excluded. Review of the remaining abdomen and pelvis demonstrates no evidence of mass or adenopathy. There is no fluid collection or acute inflammatory process. IMPRESSION: Celiac artery stenosis. Possible occlusion or at least significant stenosis of the left superficial femoral artery stent. Arthrosclerotic disease of the calf vessels. Extrahepatic biliary ductal dilatation, distal duct stone is not excluded. Reviewed, Interpreted and Dictated by Sigrid Goldberg MD Transcribed by Radha Almodovar Authenticated and [facility]
--- NOTE | 2022-06-23 15:18 | HMH.ITSTN ---
PATIENT HAS ALLERGY TO CONTRAST, SPOKE WITH DOCTOR. MEDS WERE CALLED IN YESTERDAY FOR PATIENT AND THEY SAID IF SHE TOOK THOSE LAST NIGHT SHE SHOULD BE GOOD. NO MORE MEDS NEEDED TODAY . PATIENT STATES SHE DID TAKE WHAT SHE WAS TOLD TO
== END ==
PROVIDERS: PCP Family Medicine; Visit Provider Internal Medicine Cardiovascular Disease
DX: I10 Essential (primary) hypertension (principal); I73.9 Peripheral vascular disease, unspecified; R68.89 Other general symptoms and signs; R09.89 Other specified symptoms and signs involving the circulatory and respiratory systems
CPT/HCPCS: 75635; Q9967

== ENCOUNTER → 2022-07-07 12:43 | Outpatient (CLI) | payer MEDICARE, SELFPAY ==
--- NOTE | 2022-07-07 12:46 | CT_ITS ---
FINAL REPORT TECHNIQUE: Axial images were obtained from the lung apex to the mid abdomen by computed tomography. Coronal reformatted images were obtained. This study was performed with techniques to keep radiation doses as low as reasonably achievable, (ALARA). Individualized dose reduction techniques using automated exposure control or adjustment of mA and/or kV according to the patient''s size were employed. CLINICAL HISTORY: 9 mth F/u Nodule COMPARISON: 09/29/2021 FINDINGS: There is severe coronary artery calcification. There is no axillary adenopathy. There is no hilar or mediastinal adenopathy. Heart size is normal. There is no pericardial or pleural effusion. Limited images of the upper abdomen are unremarkable. There is an 18 mm spiculated right upper lobe nodule, previously measured 14 mm. There has been interval improvement in the small nodule posterior to this. Multiple other less than 5 mm pulmonary nodules are visually stable. IMPRESSION: Interval enlargement in the right upper lobe nodule worrisome for neoplasm. Recommend PET-CT and CT guided biopsy. Other smaller nodules are stable. Reviewed, Interpreted and Dictated by Maximo Ordonez III, MD Transcribed by Radha Almodovar Authenticated and [facility]
== END ==
PROVIDERS: PCP Family Medicine; Visit Provider Internal Medicine Pulmonary Disease
DX: R91.8 Other nonspecific abnormal finding of lung field (principal)
CPT/HCPCS: 71250

== ENCOUNTER 2022-08-03 08:29 | Day surgery (SDC) | payer MEDICARE, SELFPAY ==
[2022-08-03] VITALS (21 sets, daily range): BP systolic 137–186; BP diastolic 71–100; PULSE 75–92; RESP 17–18; TEMP 36.4–36.9; O2SAT 90–96; BMI 34.2
--- NOTE | 2022-08-03 07:03 | IR_ITS ---
APPROVED REPORT Patient Location: Outpatient Software Quality Test Engineer: FREDERICK Limon RT (R) PROCEDURES Right femoral arterial access Catheter placed in the abdominal aorta Abdominal aortography Repositioning the catheter in the abdominal aorta Left femoral artery antegrade access INDICATION [place] claudication class III, Peripheral artery disease, Occluded left superficial femoral artery Informed consent was obtained prior to the procedure. COMPLICATIONS None Estimated Blood Loss: Less than 10 mls TECHNIQUE 1% lidocaine used anesthetize the right groin the right coronary is asked for Salinger technique and a 5 Romansh sheath is placed in the right femoral artery. A pigtail catheter was advanced to the abdominal aorta and abdominal aortography was performed. The catheter was then repositioned and bilateral iliofemoral runoff was performed. Following this 1% lidocaine was used anesthetize the left groin and the left femoral artery was accessed with the Salinger technique. The wire was advanced and the sheath was attempted to be placed however it was aborted after the Glidewire would not advance through the occlusion. Because patient was laying in the standard position on the Line Patroller table it was decided to abort the procedure and bring patient back in 2 weeks and then reverse her on the table for better access profiling for a left antegrade access. Patient was transferred the postop putting in stable condition for sheath removal ANGIOGRAPHIC RESULTS There is a small infrarenal abdominal aortic aneurysm The distal abdominal aorta has bilateral kissing stents which originate from the bilateral common iliac arteries. Both limbs of the iliac artery stents are widely patent and the distal abdominal aorta. Bilateral common iliac arteries are widely patent Bilateral external iliac arteries are widely patent Bilateral common femoral arteries are patent Right superficial femoral artery and profunda femoris artery are patent. The right popliteal artery is patent with three-vessel runoff below the knee on the right side Right superficial femoral artery is proximally occluded and then reconstitutes into the popliteal artery. There is three-vessel runoff below the knee on the left side IMPRESSION Peripheral artery disease as described above Bilateral common iliac artery stents with previous successful reconstruction of the aortic bifurcation PLAN 1. Continue medical management for the time being 2. Bring patient back to the Line Patroller in 3 weeks and proceed with left femoral artery antegrade access while putting the patient backward on the Line Patroller table for better profiling and access with plans to then perform drug-coated balloon to the left SFA Electronically signed by : Omar Chavez MD 08/05/2022 16:40:02
[2022-08-03 09:10] LABS: Basophils % 0.2 % (0.1-2.0); Chloride 104 mmol/L (98-107); Eosinophils # 0.2 K/mm3 (0.0-0.4); Hematocrit 47.5 % (37.0-47.0); Hemoglobin 15.5 g/dL (12.2-16.2); Lymphocytes # 1.1 K/mm3 (0.7-4.5); Lymphocytes % 7.2 % (10-50); Mean Corpuscular HGB Conc 32.7 g/dL (31.8-35.4); Mean Corpuscular Hemoglobin 33.2 pg (27.0-31.2); Mean Corpuscular Volume 101.3 fl (81-99); Mean Platelet Volume 8.9 fl (7.4-10.4); Monocytes # 0.5 K/mm3 (0.1-1.0); Monocytes % 3.3 % (1.7-9.3); Neutrophils # 13.6 K/mm3 (1.8-7.8); Neutrophils % 88.3 % (37.0-80.0); Platelet Count 220 K/mm3 (142-424); Red Blood Count 4.68 M/mm3 (4.20-5.40); Red Cell Distribution Width 13.8 % (11.5-17.5); White Blood Count 15.4 K/mm3 (4.8-10.8)
[2022-08-03 09:11] LABS: Potassium 4.5 mmoL/L (3.5-5.1); Sodium 137 mmol/L (136-145)
[2022-08-03 09:13] LABS: Blood Urea Nitrogen 13 mg/dl (7-17); Creatinine Clearance Estimated 73 mL/min (50-200); Estimated Glomerular Filt Rate 62 ml/min (>60); GFR (African American) 75 ML/MIN (>60); MANUAL DIFFERENTIAL MANUAL DIFFERENTIAL (MANUAL DIFF)
[2022-08-03 09:14] LABS: Anion Gap 12.5 mEq/L (5-15); Calcium 9.3 mg/dl (8.4-10.2); Carbon Dioxide 25 mmol/L (22.0-30.0); Glucose 124 mg/dl (74-100)
[2022-08-03 09:28] LABS: Eosinophils % 1 % (0-3); Lymphocytes % 8 % (10-50); Macrocytosis 1+; Monocytes % 6 % (2-9); Neutrophils % 85 % (42-76); Platelet Estimate Normal; Total Cells Counted 100
== END 2022-08-03 15:44 | disposition home or self-care (01) ==
LOC: CATHLAB 08:30
PROVIDERS: PCP Family Medicine; Visit Provider Internal Medicine
DX: I25.10 Atherosclerotic heart disease of native coronary artery without angina pectoris (principal); E78.2 Mixed hyperlipidemia; I70.211 Atherosclerosis of native arteries of extremities with intermittent claudication, right leg; I10 Essential (primary) hypertension; I35.0 Nonrheumatic aortic (valve) stenosis; I48.0 Paroxysmal atrial fibrillation; J44.9 Chronic obstructive pulmonary disease, unspecified; R93.5 Abnormal findings on diagnostic imaging of other abdominal regions, including retroperitoneum; Z79.899 Other long term (current) drug therapy; F17.210 Nicotine dependence, cigarettes, uncomplicated
CPT/HCPCS: 36247; 75716; 80048; 85007; 85025; 99152; 99153; C1725; C1769; C1894; J1644; Q9967

== ENCOUNTER 2022-09-03 14:06 | Observation (INO) | payer MEDICARE, SELFPAY ==
[2022-09-03] VITALS (17 sets, daily range): BP systolic 143–195; BP diastolic 59–95; PULSE 64–88; RESP 14–20; TEMP 36.4–36.5; O2SAT 92–98; BMI 34.2; BMI 36.2
--- NOTE | 2022-09-03 07:07 | IR_ITS ---
APPROVED REPORT Patient Location: Outpatient PROCEDURES Left femoral artery antegrade angiogram Selective left superficial femoral artery antegrade angiogram Intravascular lithotripsy to the left popliteal artery and left superficial femoral artery Drug-coated balloon angioplasty to the left popliteal artery and left superficial femoral artery INDICATION Occlusion of the left SFA and left popliteal artery, [place] claudication class III Informed consent was obtained prior to the procedure. COMPLICATIONS None Estimated Blood Loss: Less than 10 ML TECHNIQUE 1% lidocaine used anesthetize the left groin and the left femoral artery was accessed via the Salinger technique using an antegrade approach. An advantage wire was used to push through the occlusion in the left superficial femoral artery which then allowed a 6 [place]ian sheath to be advanced. Angiography of the left SFA was performed which demonstrated subtotal occlusions throughout. Therapeutic heparin was administered and the advantage wire was advanced to the popliteal artery. The wire was exchanged through a trailblazer with a 300 cm Choice PT wire. This allowed the delivery of a 5 mm x 60 mm shockwave balloon to be deployed at 468 and 10 rachael up and down the popliteal and SFA artery with a total of 300 pulsations. Following this a 6 mm x 250 mm drug-coated balloon was advanced to the popliteal artery extending back to the proximal SFA and deployed at 3 minutes for 8 rachael. At the end of the procedure excellent angiograph results were obtained. There was an attempt to achieve hemostasis with the Mynx however this failed therefore manual pressure was held. 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 Admitted overnight due to antegrade stick 2. Aggressive pain control as patient has a low pain threshold and a high opiate tolerance 3. Risk factor modification Electronically signed by : Omar Chavez MD 09/03/2022 14:02:29
[2022-09-03 10:59] LABS: Basophils % 0.3 % (0.1-2.0); Eosinophils # 0.2 K/mm3 (0.0-0.4); Hematocrit 43.6 % (37.0-47.0); Hemoglobin 14.7 g/dL (12.2-16.2); Lymphocytes # 1.2 K/mm3 (0.7-4.5); Mean Corpuscular HGB Conc 33.8 g/dL (31.8-35.4); Mean Corpuscular Hemoglobin 34.1 pg (27.0-31.2); Mean Platelet Volume 8.9 fl (7.4-10.4); Monocytes # 0.6 K/mm3 (0.1-1.0); Monocytes % 3.8 % (1.7-9.3); Neutrophils # 13.3 K/mm3 (1.8-7.8); Platelet Count 237 K/mm3 (142-424); Red Blood Count 4.32 M/mm3 (4.20-5.40); Red Cell Distribution Width 13.8 % (11.5-17.5); White Blood Count 15.3 K/mm3 (4.8-10.8)
[2022-09-03 11:13] LABS: Anion Gap 19.3 mEq/L (5-15); Blood Urea Nitrogen 14 mg/dl (7-17); Calcium 9.1 mg/dl (8.4-10.2); Carbon Dioxide 23 mmol/L (22.0-30.0); Chloride 97 mmol/L (98-107); Creatinine Clearance Estimated 73 mL/min (50-200); Estimated Glomerular Filt Rate 71 ml/min (>60); GFR (African American) 86 ML/MIN (>60); Glucose 118 mg/dl (74-100); Potassium 4.3 mmoL/L (3.5-5.1); Sodium 135 mmol/L (136-145)
[2022-09-03 11:35] LABS: MANUAL DIFFERENTIAL MANUAL DIFFERENTIAL (MANUAL DIFF)
[2022-09-03 12:17] LABS: Lymphocytes % 11 % (10-50); Monocytes % 6 % (2-9); Neutrophils % 83 % (42-76); Total Cells Counted 100
[2022-09-03 12:18] LABS: Macrocytosis 1+; Platelet Estimate Normal
[2022-09-03 14:24] LABS: CATHL Activated Clotting Time 305 SEC (74-125)
--- NOTE | 2022-09-03 14:41 | PC.NURSE ---
report received from Michele Arellano RN. [id number]
--- NOTE | 2022-09-03 14:50 | PC.NURSE ---
arrived to floor from labor expediter by grazyna
--- NOTE | 2022-09-03 15:40 | EXP.ANES.CKL ---
[facility] Disclaimer: The information contained in this section may have been updated after the patient was seen, as this information can be updated by other users. Medical History Abnormal ankle brachial index (JOEY) Allergic rhinitis, unspecified Aortic stenosis Chest pain Claudication COPD (chronic obstructive pulmonary disease) COPD (chronic obstructive pulmonary disease) Dyspnea on exertion High cholesterol Hypertension Intermittent claudication Lung nodule Multiple pulmonary nodules Seasonal allergies Smoker Smoking greater than 30 pack years Surgical History History of arthroscopic knee surgery History of cervical spinal surgery History of colonoscopy History of facial surgery History of heart artery stent History of hysterectomy History of lumbar surgery History of surgery on lower extremity History of surgery on upper extremity Family History Other Alcoholism COPD (chronic obstructive pulmonary disease) Cancer Social History Smoking Status: Current every day smoker tobacco type: cigarettes packs per day: 1 second hand exposure: Yes alcohol intake: current substance use type: denies use current occupational status: disabled Travel in the last 8 weeks: None household members: none housing: house current occupational exposures/hazards: No caffeine: Yes [facility] Anesthesia Checklist Patient Identification Patient Identification: Arm Band Structural Data Admitted From: Home Planned Operative Procedure/s: Lower Extremity Angiogram Consent for Planned Operative Procedure(s) Verified: Yes Verified Documents: Surgical Consent and History and Physical NPO Status Verified Time NPO: 00:00 Additional verifications Anesthesia Reactions: No Airway Assessment C-Spine Mobility Assessed: Yes TMJ Mobility Assessed: Yes Dentition: Dentures-good fit Neurological Assessment Level of Consciousness: Awake and Alert Anesthesia Plan Anesthesia Risk discussed: Yes Anesthesia Plan: Verified ASA Class: III Anesthesia Type: MAC
--- NOTE | 2022-09-03 16:02 | EXP.HP ---
History of Present Illness *Admission Date: 09/03/22 *Reason for visit:: Peripheral vascular disease *History of present illness: This is a 67-year-old female that presented to [facility] vascular lab for left lower extremity superficial femoral artery and popliteal artery peripheral vascular disease and planned intervention. Today she underwent vascular procedure and she is currently postoperative bed rest. She reports adequate pain control. She denies left lower extremity numbness, tingling or crescendo pain. There is no associated retrosternal chest pain, palpitations, acute dyspnea or hemoptysis. She denies any confusion, unusual headaches or visual disturbances. PFSH PFS Medical History Abnormal ankle brachial index (JOEY) Allergic rhinitis, unspecified Aortic stenosis Chest pain Claudication COPD (chronic obstructive pulmonary disease) COPD (chronic obstructive pulmonary disease) Dyspnea on exertion High cholesterol Hypertension Intermittent claudication Lung nodule Multiple pulmonary nodules Seasonal allergies Smoker Smoking greater than 30 pack years Surgical History History of arthroscopic knee surgery History of cervical spinal surgery History of colonoscopy History of facial surgery History of heart artery stent History of hysterectomy History of lumbar surgery History of surgery on lower extremity History of surgery on upper extremity Family History Other Alcoholism COPD (chronic obstructive pulmonary disease) Cancer Social History Smoking Status: Current every day smoker tobacco type: cigarettes packs per day: 1 second hand exposure: Yes alcohol intake: current substance use type: denies use current occupational status: disabled Travel in the last 8 weeks: None household members: none housing: house current occupational exposures/hazards: No caffeine: Yes Review of Systems Review of Systems Review of systems:: pertinent systems reviewed and negative unless documented below Constitutional Constitutional: Denies headache(s) Eyes Eyes: Denies change in vision ENT Ears, Nose, Mouth, and Throat: Denies dizziness and Denies headache(s) *Cardiovascular Cardiovascular: Denies chest pain, Denies chest pain at rest, Denies dyspnea and Denies palpitations *Respiratory Respiratory: Denies dyspnea, Denies hemoptysis and Denies pain on inspiration *Gastrointestinal Gastrointestinal: Denies hematemesis, Denies loose stools, Denies nausea and Denies vomiting *Neurologic Neurologic: Denies dizziness and Denies headache(s) Endocrine Endocrine: Denies palpitations Meds Home Medications and Allergies Home Medications Medication Instructions Recorded Confirmed Type diazepam 5 mg tablet 5 mg PO QIDP PRN Anxiety 05/16/19 09/03/22 History lansoprazole 30 mg capsule,delayed 30 mg PO DAILY Acid reflux 07/02/19 09/03/22 History release docusate sodium 100 mg capsule 100 mg PO DAILY constipation 08/29/19 09/03/22 History (Stool Softener) multivitamin with iron 1 tab PO DAILY Supplement 08/29/19 09/03/22 History nitroglycerin 0.4 mg sublingual 0.4 mg sublingual Q5MINP PRN Chest 08/29/19 09/03/22 History tablet Pain levothyroxine 50 mcg tablet 50 mcg PO DAILY THYROID 12/04/20 09/03/22 History ezetimibe 10 mg tablet (Zetia) 10 mg PO DAILY Cholesterol #90 tabs 12/04/21 09/03/22 Rx fluticasone fur. 100 mcg-umeclid 1 inh inhalation DAILY Breathing 01/01/22 09/03/22 History 62.5 mcg-vilant 25 mcg problems inhalat.powder (Trelegy Ellipta) rivaroxaban 2.5 mg tablet (Xarelto) 2.5 mg PO BID Blood thinner 07/14/22 09/03/22 History fluticasone propionate 50 1 spray intranasal DAILY Allergy 08/03/22 09/03/22 History mcg/actuation nasal symptoms spray,suspension (Flonase Allergy Relief) montelukast 10 mg tablet
--- NOTE | 2022-09-03 16:46 | PC.NURSE ---
pt has rested in room since arrival on unit at 1450. lungs are clear, bowel sounds are active. no hematoma or bleeding noted to left groin. pt is alert/oriented.
[2022-09-03 17:41] LABS: Coronavirus 19, PCR Not Detected (NotDetected); Influenza A, PCR Not Detected (NotDetected); Influenza B, PCR Not Detected (NotDetected)
[2022-09-04] VITALS: BP 154/74; PULSE 72; PULSE 80; RESP 18; TEMP 36.6; O2SAT 94
[2022-09-04 03:49] VITALS: PULSE 76; PULSE 81
[2022-09-04 04:00] VITALS: BP 157/72; PULSE 76; RESP 18; TEMP 36.6; O2SAT 98; BMI 36.8
[2022-09-04 04:02] VITALS: PULSE 79
[2022-09-04 07:39] LABS: Basophils % 0.1 % (0.1-2.0); Hematocrit 41.9 % (37.0-47.0); Hemoglobin 13.8 g/dL (12.2-16.2); Lymphocytes # 1.5 K/mm3 (0.7-4.5); Lymphocytes % 9.6 % (10-50); Mean Corpuscular HGB Conc 32.9 g/dL (31.8-35.4); Mean Corpuscular Hemoglobin 33.3 pg (27.0-31.2); Mean Corpuscular Volume 101.3 fl (81-99); Mean Platelet Volume 8.9 fl (7.4-10.4); Monocytes # 1.2 K/mm3 (0.1-1.0); Monocytes % 7.8 % (1.7-9.3); Neutrophils # 13.1 K/mm3 (1.8-7.8); Neutrophils % 82.5 % (37.0-80.0); Platelet Count 182 K/mm3 (142-424); Red Blood Count 4.14 M/mm3 (4.20-5.40); Red Cell Distribution Width 13.6 % (11.5-17.5); White Blood Count 15.9 K/mm3 (4.8-10.8)
[2022-09-04 07:45] LABS: Anion Gap 16.8 mEq/L (5-15); Blood Urea Nitrogen 14 mg/dl (7-17); Calcium 8.2 mg/dl (8.4-10.2); Carbon Dioxide 24 mmol/L (22.0-30.0); Chloride 101 mmol/L (98-107); Creatinine Clearance Estimated 79 mL/min (50-200); Estimated Glomerular Filt Rate 71 ml/min (>60); GFR (African American) 86 ML/MIN (>60); Glucose 94 mg/dl (74-100); Potassium 3.8 mmoL/L (3.5-5.1); Sodium 138 mmol/L (136-145)
[2022-09-04 08:00] VITALS: BP 166/84; PULSE 70; PULSE 75; RESP 18; TEMP 36.9; O2SAT 94
[2022-09-04 08:05] LABS: MANUAL DIFFERENTIAL MANUAL DIFFERENTIAL (MANUAL DIFF)
--- NOTE | 2022-09-04 08:27 | EXP.DC.SUM ---
General Admission date:: 09/03/22 Discharge date: 09/04/22 HPI HPI HPI: This is a 67-year-old female that presented to [facility] vascular lab for left lower extremity superficial femoral artery and popliteal artery peripheral vascular disease and planned intervention. Today she underwent vascular procedure and she is currently postoperative bed rest. She reports adequate pain control. She denies left lower extremity numbness, tingling or crescendo pain. There is no associated retrosternal chest pain, palpitations, acute dyspnea or hemoptysis. She denies any confusion, unusual headaches or visual disturbances. Hospital Course Hospital Course Hospital Course: The patient was admitted to the telemetry unit post procedurally for her lower extremity peripheral vascular disease and vascular procedure. The patient identified no acute events overnight and inquired about discharge home. Her morning labs identified stability with normal hemoglobin and creatinine. She understands the importance of complete smoking cessation. She plans to follow-up with her PCP and animal shelter clerk as scheduled. I spent 35 minutes in [id number] time with the patient and nursing staff concerning the discharge process. We discussed the admitting diagnoses and hospital course. We discussed identified improvement and the patient's desire to be discharged. We reviewed inpatient studies and imaging. The patient voiced understanding on the importance of follow-up with her primary care provider and animal shelter clerk. The patient plans to be compliant with the medication regimen prescribed and follow-up appointments. She understands that she can return to the emergency department with any sudden changes or concerns. Exam Data for Last 24 hours Vital signs and Labs for Last 24 Hours: Temp Pulse Resp BP Pulse Ox 98.5 F 75 18 166/84 H 94 L 09/04/22 08:00 09/04/22 08:00 09/04/22 08:00 09/04/22 08:00 09/04/22 08:00 Laboratory Results - last 24 hr 09/03/22 10:45: WBC 15.3 H, RBC 4.32, Hgb 14.7, Hct 43.6, MCV 101.0 H, MCH 34.1 H, MCHC 33.8, RDW 13.8, Plt Count 237, MPV 8.9, Neut % (Auto) 87.0 H, Lymph % (Auto) 8.0 L, Oliver % (Auto) 3.8, Eos % (Auto) 1.0, Baso % (Auto) 0.3, Neut # (Auto) 13.3 H, Lymph # (Auto) 1.2, Oliver # (Auto) 0.6, Eos # (Auto) 0.2, Baso # (Auto) 0.0, Total Counted 100, Neutrophils % (Manual) 83 H, Lymphocytes % (Manual) 11, Monocytes % (Manual) 6, Platelet Estimate Normal, Macrocytosis 1+ 09/03/22 10:45: Sodium 135 L, Potassium 4.3, Chloride 97 L, Carbon Dioxide 23, Anion Gap 19.3 H, BUN 14, Creatinine 0.80, Estimated Creat Clear 73, Estimated GFR 71, Est GFR ( Amer) 86, Glucose 118 H, Calcium 9.1 09/03/22 13:30: Activated Clotting Time 305 H* 09/03/22 15:10: SARS-CoV-2 (PCR) Not detected, Influenza A Untype (PCR) Not detected, Influenza Type B (PCR) Not detected 09/04/22 06:37: WBC 15.9 H, RBC 4.14 L, Hgb 13.8, Hct 41.9, MCV 101.3 H, MCH 33.3 H, MCHC 32.9, RDW 13.6, Plt Count 182, MPV 8.9, Neut % (Auto) 82.5 H, Lymph % (Auto) 9.6 L, Oliver % (Auto) 7.8, Eos % (Auto) 0.0 L, Baso % (Auto) 0.1, Neut # (Auto) 13.1 H, Lymph # (Auto) 1.5, Oliver # (Auto) 1.2 H, Eos # (Auto) 0.0, Baso # (Auto) 0.0 09/04/22 06:37: Sodium 138, Potassium 3.8, Chloride 101, Carbon Dioxide 24, Anion Gap 16.8 H, BUN 14, Creatinine 0.80, Estimated Creat Clear 79, Estimated GFR 71, Est GFR ( Amer) 86, Glucose 94 D, Calcium 8.2 L I & O for Last 24 hours: Intake & Output 09/01/22 09/02/22 09/03/22 09/04/22 23:59 23:59 23:59 23:59 Intake Total 60 / 420 600 / 600 Output Total 350 / 350 0 / 0 Balance -290 / 70 600 / 600 Weight 92.703 kg 94.211 kg Constitutional Constitutional: no acute distress and cooperative *Routine HEENT Exam Head: Present normocephalic Eye: Present EOMI and PERRL ENT: Present mucous membranes moist *Routine Neck Exam Neck: Present supple; Absent lymphadenopathy *Routine Respiratory Exam Respiratory: Present rhonchi, nor
[2022-09-04 09:18] LABS: Lymphocytes % 9 % (10-50); Monocytes % 7 % (2-9); Neutrophils % 84 % (42-76); Total Cells Counted 100
[2022-09-04 09:19] LABS: Macrocytosis 1+; Platelet Estimate Normal
--- NOTE | 2022-09-06 12:57 | CARE MANAGER ---
Contacted patient related to hospital discharge. She states she has some slight redness around the insertion site, but she is monitoring it. She denies questions or concerns and is aware of her follow up appointments.PATRICIA Pagan
== END 2022-09-04 09:08 | disposition home or self-care (01) ==
LOC: 2ND 14:07
PROVIDERS: Internal Medicine; Admitting Provider Family Medicine; PCP Family Medicine; Visit Provider Family Medicine
DX: I48.0 Paroxysmal atrial fibrillation; R93.5 Abnormal findings on diagnostic imaging of other abdominal regions, including retroperitoneum; F17.210 Nicotine dependence, cigarettes, uncomplicated; Z79.01 Long term (current) use of anticoagulants; I70.212 Atherosclerosis of native arteries of extremities with intermittent claudication, left leg; I77.1 Stricture of artery; Z79.02 Long term (current) use of antithrombotics/antiplatelets; J44.9 Chronic obstructive pulmonary disease, unspecified; I25.10 Atherosclerotic heart disease of native coronary artery without angina pectoris; I10 Essential (primary) hypertension; I35.0 Nonrheumatic aortic (valve) stenosis; Z79.899 Other long term (current) drug therapy; Z20.822 Contact with and (suspected) exposure to COVID-19
CPT/HCPCS: G0378; 80048; 85007; 85025; 85347; 87636; 94640; C1725; C1769; C1894; C9765; C9803; J1644; J2704; J2720; Q9966; U0003; U0005

== ENCOUNTER → 2022-10-04 14:01 | Outpatient (CLI) | payer MEDICARE, SELFPAY ==
--- NOTE | 2022-10-04 14:19 | XR_ITS ---
FINAL REPORT CLINICAL HISTORY: OSTEARTHRITIS COMPARISON: None FINDINGS: 4 views of the lumbosacral spine were obtained. There is no fracture present. There is no malalignment. There is severe degenerative change of the lumbar spine. There is fusion from L3 to the upper pelvis. Bilateral vascular stents are noted. IMPRESSION: Degenerative changes without acute process. Reviewed, Interpreted and Dictated by Maximo Ordonez III, MD Transcribed by Radha Avery Authenticated and [facility]
== END ==
PROVIDERS: PCP Family Medicine; Visit Provider Family Medicine
DX: M47.26 Other spondylosis with radiculopathy, lumbar region (principal); M96.1 Postlaminectomy syndrome, not elsewhere classified; G89.4 Chronic pain syndrome; Z79.891 Long term (current) use of opiate analgesic; Z74.09 Other reduced mobility
CPT/HCPCS: 72100

== ENCOUNTER → 2023-01-05 13:09 | Outpatient (CLI) | payer MEDICARE, SELFPAY ==
--- NOTE | 2023-01-05 13:09 | CT_ITS ---
FINAL REPORT TECHNIQUE: Axial images were obtained from the lung apex to the mid abdomen by computed tomography. Coronal reformatted images were obtained. This study was performed with techniques to keep radiation doses as low as reasonably achievable, (ALARA). Individualized dose reduction techniques using automated exposure control or adjustment of mA and/or kV according to the patient''s size were employed. CLINICAL HISTORY: 6 mth F/U COMPARISON: 07/07/2022 FINDINGS: There is no axillary adenopathy. There is no hilar or mediastinal adenopathy. Heart size is normal. There is no pericardial or pleural effusion. Limited images of the upper abdomen are unremarkable. Severe coronary artery calcifications are once again identified. There is a spiculated nodule in the right upper lobe, which measured 18 mm on the prior exam of June 2022, and now measures 23 mm in diameter. The small nodules posterior to the mass are now nearly confluent. There are several other scattered less than 5 mm in size nodules, stable. IMPRESSION: Spiculated nodule in the right upper lobe has increased from 18 to 23 mm in diameter since June 2022. Once again, would recommend PET CT and CT-guided biopsy if not already performed. This is very worrisome for a malignancy. Severe coronary artery calcifications. Reviewed, Interpreted and Dictated by Maximo Ordonez III, MD Transcribed by Jael Chen Authenticated and [facility]
== END ==
PROVIDERS: PCP Family Medicine; Visit Provider Internal Medicine Pulmonary Disease
DX: R91.8 Other nonspecific abnormal finding of lung field (principal); R06.02 Shortness of breath
CPT/HCPCS: 71250

== ENCOUNTER 2023-02-01 07:14 | Outpatient (CLI) | payer MEDICARE, SELFPAY ==
[2023-02-01] VITALS (8 sets, daily range): BP systolic 91–139; BP diastolic 41–68; PULSE 71–85; RESP 16–18; TEMP 36.8; O2SAT 90–98; BMI 33.6
--- NOTE | 2023-02-01 07:14 | CT_ITS ---
FINAL REPORT CLINICAL HISTORY: . right upper lobe biopsy FINDINGS: CT GUIDEDLUNG BIOPSY. HISTORY: Right upper lobe nodule. ATTENDING PHYSICIAN: Dr. Ordonez PHYSICIAN PATTERN GENERATOR OPERATOR: Joe Cesar PA-C PROCEDURE: Before the biopsy, long discussion was carried out with the patient's about no pathologist being available for biopsy. The patient wanted to proceed with biopsy without a pathologist present. After informed consent was obtained and a timeout was performed, the patient was prepped and draped in usual sterile fashion over the chest. Utilizing local anesthesia and sterile technique with a coaxial system, access to lesion was obtained. A total of 4 separate 20-gauge core biopsies were obtained. Samples were sent for histology as well as preordered cultures. Post biopsy films demonstrate no evidence of acute complication. There was expected postoperative hemorrhage seen on the postprocedural images. Sedation was provided by the anesthesia department. The patient tolerated the procedure well and left the department in good condition. IMPRESSION: Status post CT guided biopsy of right upper lobe nodule without immediate complication. Films reviewed , interpreted and dictated by Dr. Ordonez. Transcribed by Joe Cesar PA-C. Reviewed, Interpreted and Dictated by Maximo Ordonez III, MD Transcribed by STELLA Snider Authenticated and [facility]
--- NOTE | 2023-02-01 08:13 | P.PNANES_ITS ---
[facility] Disclaimer: The information contained in this section may have been updated after the patient was seen, as this information can be updated by other users. Medical History Abnormal ankle brachial index (JOEY) Aortic stenosis Chest pain Claudication COPD (chronic obstructive pulmonary disease) COPD (chronic obstructive pulmonary disease) Dyspnea on exertion High cholesterol Hypertension Intermittent claudication Lung nodule Multiple pulmonary nodules Seasonal allergies Smoker Smoking greater than 30 pack years Surgical History History of arthroscopic knee surgery History of cervical spinal surgery History of colonoscopy History of facial surgery History of heart artery stent History of hysterectomy History of lumbar surgery History of surgery on lower extremity History of surgery on upper extremity Family History Other Alcoholism COPD (chronic obstructive pulmonary disease) Cancer Social History Smoking Status: Current every day smoker tobacco type: cigarettes packs per day: 1 second hand exposure: Yes alcohol intake: current substance use type: denies use current occupational status: disabled Travel in the last 8 weeks: None household members: none housing: house current occupational exposures/hazards: No caffeine: Yes [facility] Anesthesia Checklist Patient Identification Patient Identification: Arm Band Structural Data Admitted From: Home Planned Operative Procedure/s: CT Guided Lung Biopsy Consent for Planned Operative Procedure(s) Verified: Yes Verified Documents: Surgical Consent and History and Physical NPO Status Verified Time NPO: 00:00 Additional verifications Anesthesia Reactions: No Hx Blood Transfusions: Yes Blood Transfusion Reaction: No Airway Assessment Mallampati Score:: Class II C-Spine Mobility Assessed: Yes TMJ Mobility Assessed: Yes Dentition: Good Dentition Neurological Assessment Level of Consciousness: Awake and Alert Anesthesia Plan Anesthesia Risk discussed: Yes Anesthesia Plan: Verified Anesthesia Type: MAC
--- NOTE | 2023-02-01 10:03 | XR_ITS ---
FINAL REPORT CLINICAL HISTORY: POST LUNG BX FINDINGS: A single portable view of the chest was obtained. The heart size and pulmonary vascularity are within normal limits. The mediastinum is within normal limits. There is right upper lobe opacity. There is no pneumothorax. Postoperative changes are seen in the lower cervical spine. IMPRESSION: No pneumothorax post lung biopsy. Right upper lobe opacity. Reviewed, Interpreted and Dictated by Maximo Ordonez III, MD Transcribed by Rosina Carranza Authenticated and [facility]
--- NOTE | 2023-02-01 11:35 | PC.NURSE ---
1035 - Spoke w/ R Cas Laird about pt's coughing up jorge red blood. Per PA this is to be expected but to continue to monitor and notify if this persists or becomes mores. 1120 - PA at bedside checking on pt. No new orders. Pt resting in bed on right side awaiting CXR.
--- NOTE | 2023-02-01 11:54 | PC.NURSE ---
Rad at bedside for CXR
--- NOTE | 2023-02-01 12:30 | XR_ITS ---
FINAL REPORT CLINICAL HISTORY: 2 HOUR POST LUNG BX COMPARISON: 2 hours prior FINDINGS: A single portable view of the chest was obtained. The heart size and pulmonary vascularity are within normal limits. The mediastinum is within normal limits. There is right upper lobe opacity. There is mild right lung atelectasis. No pneumothorax is seen. Postoperative changes are seen in the lower cervical spine. IMPRESSION: Mild right upper lobe opacity and right lung atelectasis. No pneumothorax. Reviewed, Interpreted and Dictated by Maximo Ordonez III, MD Transcribed by Rosina Carranza Authenticated and [facility]
--- NOTE | 2023-02-01 12:51 | PC.NURSE ---
1230 - Called radiology about cxr, Gavin states it is locked at this time, and should be read shortly. 1250 - Called rad again about cxr report. Image has still not been read at this time. Pt upset d/t her ride as been here waiting all morning and is now waiting even longer r/t waiting on rad reading. Discussed w/ pt need for reading to make sure that there is no pneumo or complication as a result of bx. Pt agreeable to wait a little longer for report to be read but is frustrated at this time.
== END 2023-02-01 13:09 | disposition home or self-care (01) ==
PROVIDERS: PCP Family Medicine; Visit Provider Internal Medicine Pulmonary Disease
DX: R91.1 Solitary pulmonary nodule (principal)
CPT/HCPCS: 10009; 71045; 77012; 87102; 87116; 87206; 88305; 88341; 88342; 88360

== ENCOUNTER 2023-03-08 08:22 | Day surgery (SDC) | payer MEDICARE, SELFPAY ==
[2023-03-04 12:36] VITALS: BMI 33.3
[2023-03-08 09:17] VITALS: BP 119/58; PULSE 73; RESP 18; TEMP 37.1; O2SAT 94
== END 2023-03-08 10:11 | disposition home or self-care (01) ==
LOC: OUTP 08:24
PROVIDERS: PCP Family Medicine; Visit Provider Ophthalmology
PROC: (CPT 66821; principal; 2023-03-08 10:00)
DX: H26.40 Unspecified secondary cataract (principal)
CPT/HCPCS: 66821

== ENCOUNTER 2023-05-19 13:05 | Outpatient (CLI) | payer MEDICARE, SELFPAY ==
--- NOTE | 2023-05-19 13:14 | MM_ITS ---
PROCEDURE INFORMATION: Exam: MG Bilateral Screening 3D Mammography Exam date and time: 05/19/2023 1:13 PM Age: 68 years old Clinical indication: Screening examination TECHNIQUE: Imaging protocol: Bilateral Screening tomosynthesis and 2D mammography including computer-aided detection (CAD) when performed. COMPARISON: 1. MG DMSB DIG MAMM-SCREEN KIT 07/11/2015 11:33 AM 2. MG DMSB DIG MAMM-SCREEN KIT 04/02/2014 10:31 AM FINDINGS: MAMMOGRAPHY: Breast composition: There are scattered areas of fibroglandular density. Mass: None. Architectural distortion: None. Calcifications: No suspicious calcifications. Asymmetric density: None. Skin thickening: None. Axillary adenopathy: None. IMPRESSION: No mammographic evidence of malignancy. Annual screening is recommended unless otherwise clinically indicated. ASSESSMENT: BI-RADS Category 1: Negative
== END 2023-05-19 23:59 ==
LOC: RAD 13:07
PROVIDERS: PCP Family Medicine; Visit Provider Family Medicine
DX: Z12.31 Encounter for screening mammogram for malignant neoplasm of breast (principal)
CPT/HCPCS: 77063; 77067

== ENCOUNTER 2023-06-06 13:24 | Outpatient (CLI) | payer MEDICARE, SELFPAY ==
--- NOTE | 2023-06-06 13:27 | CA_ITS ---
APPROVED REPORT EXAM: Comprehensive 2D, Doppler, and color-flow Echocardiogram Finance Intern: Yari Miranda RT(R) Ht: 5 ft 3 in Wt: 185lbs BSA: 1.87 BP: 109/69 mmHg Indications: COPD, smoker, HTN, SOB, TEIXEIRA, hyperlipidemia, , CAD, hx of AFIB. TDS due to body habitus and lung interference. 2D Dimensions LA Volume 25.10 mL LA Volume Index 13.42 mL/m2 (M/F) 16-34 EF AP4 52.40 % GL Strain -18.9 % M-Mode Dimensions RVDd 2.10 cm (0.9-2.6) LA Diam 3.41 cm (1.9-4.0) LVDd 4.91 cm (3.5-5.7) LVDs 3.88 cm (3.5-5.7) IVSd 0.80 cm (0.6-1.1) PWd 0.71 cm (0.6-1.1) EF (Teich) 42.60% FS 21.00% EDV (Teich) 113.40 mL ESV (Teich) 65.10 mL LV Diastology E Decel Time 140 (160-240 msec) E/A Ratio 0.7 Aortic Valve KARISHMA Index 0.51 cm2/m2 AoV Peak Pasha. 268.0 (50-130 cm/s) AO Peak GR. 28.90 mmHg AO Mean GR. 14.20 (<5 mmHg) AO VTI 50.1 (18-25 cm) KARISHMA (VTI) 0.98 (2.5-4.5 cm2) Mitral Valve MV E Max Pasha. 58.0 (40-130 cm/s) MV A Velocity 81.0 (40-130 cm/s) E/A Ratio 0.72 MV PHT 41.0 ms Left Ventricle The left ventricle is normal size. The left ventricular systolic function is low-normal. There is increased LV wall thickness. Proximal septal thickening is noted. The septal and inferior septal LV cervantes appear mildly hypokinetic. Diastolic function is indeterminate due to atrial fibrillation. LVEF is 50%. Right Ventricle The right ventricle is normal size. The right ventricular systolic function is normal. Atria The left atrium size is normal. The right atrium size is normal. There is no Doppler evidence of interatrial shunt. Aortic Valve The aortic valve is mildly thickened. Mild to moderate aortic stenosis is present. Aortic valve area by continuity equation is 1.2 cm???. Peak velocity is 2.7 m/s. Mean AV gradient is 15 mmHg. Max AV gradient is 30 mmHg. Mild aortic regurgitation. Mitral Valve The mitral valve leaflets are mildly thickened. Mild mitral regurgitation. Tricuspid Valve The tricuspid valve leaflets are thin and pliable. There is insufficient TR jet to estimate RVSP. Trace tricuspid regurgitation. Pulmonic Valve The pulmonary valve is normal in structure. Trace pulmonic regurgitation. Great Vessels The aortic root is not well-visualized. IVC is normal in size and collapses >50% with inspiration. Pericardium There is no pericardial effusion. Other Information Study Quality: Technically Difficult Conclusion Technically difficult study due to poor acoustic windows. Low normal LV systolic function (LVEF 50%). The septal and inferior septal LV cervantes appear mildly hypokinetic. Mild AI, mild MR. Mild to moderate . Aortic valve area (KARISHMA) by continuity equation is 1.2 cm???. Peak velocity is 2.7 m/s. Mean AV gradient is 15 mmHg. Max AV gradient is 30 mmHg. Electronically signed by : Melody Ray MD 06/07/2023 22:53:29
== END 2023-06-06 23:59 ==
LOC: RT 13:25
PROVIDERS: PCP Family Medicine; Visit Provider Physician Assistant
DX: R06.00 Dyspnea, unspecified (principal)
CPT/HCPCS: 93306

== ENCOUNTER 2023-12-05 12:42 | Outpatient (CLI) | payer MEDICARE, SELFPAY ==
[2023-12-05 13:40] VITALS: PULSE 79; PULSE 85
[2023-12-05] MEDS: ALBUTEROL 0.083% 2.5 MG/3 ML NEB IH (13:40)
== END 2023-12-05 23:59 | disposition home or self-care (01) ==
LOC: RT 12:42
PROVIDERS: PCP Family Medicine; Visit Provider Internal Medicine Pulmonary Disease
DX: R06.09 Other forms of dyspnea (principal)
CPT/HCPCS: 94060; 94618; 94640; 94726; 94729; J7613

== ENCOUNTER 2024-06-12 12:39 | Outpatient (CLI) | payer MEDICARE, SELFPAY ==
--- NOTE | 2024-06-12 12:43 | CA_ITS ---
APPROVED REPORT EXAM: Comprehensive 2D, Doppler, and color-flow Echocardiogram Foot Piece Assembler: Jory Carrillo, RCS, RVS Ht: 5 ft 3 in Wt: 177lbs BSA: 1.84 BP: 113/56 mmHg Indications: Smoker, , COPD, HTN, PAD, Lung CA 2D Dimensions IVSd 0.94 cm LVEF (Visual) 68.00 % PWd 0.77 cm LA Volume 41.10 mL LVDd 4.89 cm LA Volume Index 22.862471 mL/m2 (M/F) 16-34 LVDs 3.03 cm Left Atrium 3.24 cm M-Mode Dimensions RVDd 2.21 cm (0.9-2.6) LA Diam 3.30 cm (1.9-4.0) LVDd 5.47 cm (3.5-5.7) LVDs 3.72 cm (3.5-5.7) IVSd 0.82 cm (0.6-1.1) PWd 0.71 cm (0.6-1.1) EF (Teich) 43.60% EPSs 0.54 cm FS 21.50% EDV (Teich) 104.40 mL TAPSE 1.33 (<1.7) ESV (Teich) 58.90 mL LV Diastology E Decel Time 223 (160-240 msec) E/A Ratio 0.85 MED A' 11.00 cm/s LAT A' 11.20 cm/s Aortic Valve KARISHMA Index 0.39 cm2/m2 AoV Peak Pasha. 313.0 (50-130 cm/s) AI PHT 296.00 ms AO Peak GR. 39.10 mmHg AO Mean GR. 21.20 (<5 mmHg) AO VTI 64.1 (18-25 cm) KARISHMA (VTI) 0.74 (2.5-4.5 cm2) Mitral Valve MV A Velocity 90.0 (40-130 cm/s) E/A Ratio 0.85 Pulmonary Valve PV Peak Velocity 80.0 (50-150 cm/s) Tricuspid Valve TR P. Velocity 244.00 cm/s RAP Estimate 10.00 mmHg RVSP 33.80 mmHg Left Ventricle The left ventricle is normal size. The left ventricular systolic function is normal. The left ventricular ejection fraction is within the normal range. There is increased LV wall thickness. There is normal LV segmental wall motion. Transmitral Doppler flow pattern suggests impaired LV relaxation. LVEF is 55%. Right Ventricle The right ventricle is normal size. The right ventricular systolic function is normal. Atria The left atrium size is normal. The right atrium size is normal. There is no Doppler evidence of interatrial shunt. Aortic Valve The aortic valve is moderately thickened. Severe paradoxical low-flow, low gradient aortic stenosis is present. KARISHMA by continuity equation is 0.8 cm per. Peak velocity 3.2 m/s. Mean AV gradient 22 mmHg. Max AV gradient 40 mmHg. SVi=28 ml/m2. DI=0.25. Mild aortic regurgitation. Mitral Valve The mitral valve leaflets are mildly thickened. No evidence of mitral valve stenosis. Mild mitral regurgitation. Tricuspid Valve Tricuspid valve is grossly normal in structure and function. Mild tricuspid regurgitation. RVSP is 25-30 mmHg. Pulmonic Valve The pulmonary valve is normal in structure. Trace pulmonic regurgitation. Great Vessels The aortic root is normal in size. IVC is normal in size and collapses >50% with inspiration. Pericardium There is no pericardial effusion. Other Information Study Quality: Fair Conclusion Normal biventricular systolic function. Severe paradoxical low-flow, low gradient (KARISHMA by continuity equation is 0.8 cm per. Peak velocity 3.2 m/s. Mean AV gradient 22 mmHg. Max AV gradient 40 mmHg. SVi=28 ml/m2. DI=0.25). Mild MR, mild TR, mild AI. In the setting of suspected severe , further evaluation with cardiac MRI (aortic valve/aortic stenosis protocol) may be suggested to evaluate KARISHMA, as well as AV calcium scoring to correlate degree of calcification with likelihood of severity. Clinical correlation is required. Electronically signed by : Melody Ray MD 06/23/2024 23:39:58
== END 2024-06-12 23:59 | disposition home or self-care (01) ==
LOC: RT 12:40
PROVIDERS: PCP Family Medicine; Visit Provider Physician Assistant
DX: I35.0 Nonrheumatic aortic (valve) stenosis (principal); I48.0 Paroxysmal atrial fibrillation; R06.09 Other forms of dyspnea; J44.9 Chronic obstructive pulmonary disease, unspecified; I10 Essential (primary) hypertension; I25.10 Atherosclerotic heart disease of native coronary artery without angina pectoris; E78.2 Mixed hyperlipidemia; I73.9 Peripheral vascular disease, unspecified
CPT/HCPCS: 93306

== ENCOUNTER 2024-07-16 11:22 | Observation (INO) | payer MEDICARE, SELFPAY ==
[2024-07-16] VITALS (65 sets, daily range): BP systolic 128–172; BP diastolic 45–96; PULSE 66–106; RESP 16–20; TEMP 36.5–36.6; O2SAT 90–99; BMI 34.3
--- NOTE | 2024-07-16 07:14 | IR_ITS ---
APPROVED REPORT Patient Location: Outpatient PROCEDURES Selective coronary angiogram Bilateral selective renal angiogram Bare-metal stent deployment to the right renal artery INDICATION Preoperative evaluation for aortic valve replacement/severe aortic stenosis, Renovascular hypertension, Renal insufficiency creatinine 1.3, Renal artery stenosis Informed consent was obtained prior to the procedure. COMPLICATIONS NONE Estimated Blood Loss: LESS THAN 10 ML TECHNIQUE One percent lidocaine was used to anesthetize the right groin. The right femoral artery was accessed via the Seldinger technique. A 4-Korean sheath was placed in the right femoral artery. The JL-4 and JR-4 catheter was also used to perform left heart catheterization left ventriculogram and selective coronary angiogram. JR4 catheter was used to perform bilateral selective renal angiography. At the end the diagnostic angiogram therapeutic Was administered and the 4 [place] sheath was exchanged for a 6 [place] sheath. A short BRIGGS guide catheter was placed in the right renal artery followed by Choice PT extra-support wire. A 6 mm x 15 mm Herculink stent was deployed at 14 rachael reducing the critical stenosis to 0%. Excellent angiograph results were obtained at the end the procedure the apparatus was removed the patient was transferred to the postop putting in stable condition for sheath removal ANGIOGRAPHIC RESULTS The left main artery Has an ostial calcified eccentric 90% stenosis and a distal eccentric 40% stenosis The left anterior descending artery Has a stent in the proximal segment which is widely patent with minimal in-stent restenosis with 70 to 80% stenosis just distal to the stent in the [place] LAD. The remaining LAD is widely patent The circumflex artery Nondominant with diffuse calcifications but no stenosis greater than 30% The right coronary artery Is dominant and has an ostial calcified complex 90% stenosis followed by an additional 70 to 80% stenosis with a mid vessel 60% calcified stenosis The BROOKS ventriculogram reveals Not performed The left ventricular end-diastolic pressure Not measured Left renal artery singular normal Right renal artery has an ostial complex calcified 90% stenosis IMPRESSION Critical coronary disease as described above Severe right renal artery stenosis Successful stenting of the right renal artery severe disease reduced to 0% with 1 bare-metal stent PLAN 1. Patient will be referred to [facility] for open aortic valve replacement and surgical revascularization 2. Aspirin is required for the bare-metal stent 3. LDL less than 55 achieved with high intensity statin 4. Avoidance of tobacco products 5. Patient requires admission overnight due to the complexity of her vascular disease and renal artery stenosis with renal insufficiency and severe aortic stenosis Electronically signed by : Omar Chavez MD 07/16/2024 10:57:01
[2024-07-16 08:28] LABS: Basophils % 0.2 % (0.1-2.0); Eosinophils # 0.2 K/mm3 (0.0-0.4); Eosinophils % 1.8 % (0.1-12.0); Hemoglobin 11.2 g/dL (12.2-16.2); Lymphocytes # 0.6 K/mm3 (0.7-4.5); Mean Corpuscular HGB Conc 32.9 g/dL (31.8-35.4); Mean Corpuscular Hemoglobin 31.6 pg (27.0-31.2); Mean Platelet Volume 10.1 fl (7.4-10.4); Monocytes # 0.1 K/mm3 (0.1-1.0); Monocytes % 1.5 % (1.7-9.3); Neutrophils # 7.6 K/mm3 (1.8-7.8); Platelet Count 302 K/mm3 (142-424); Red Blood Count 3.54 M/mm3 (4.20-5.40); Red Cell Distribution Width 12.8 % (11.5-17.5); White Blood Count 8.6 K/mm3 (4.8-10.8)
[2024-07-16 08:33] LABS: Chloride 99 mmol/L (98-107); Sodium 132 mmol/L (136-145)
[2024-07-16 08:34] LABS: Potassium 4.8 mmoL/L (3.5-5.1)
[2024-07-16 08:36] LABS: Anion Gap 13.8 mEq/L (5-15); Blood Urea Nitrogen 18 mg/dl (7-17); Carbon Dioxide 24 mmol/L (22.0-30.0); Creatinine Clearance Estimated 55 mL/min (50-200); Estimated Glomerular Filt Rate 40 ml/min (>60); GFR (African American) 49 ML/MIN (>60)
[2024-07-16 08:37] LABS: Calcium 9.6 mg/dl (8.4-10.2); Glucose 151 mg/dl (74-100)
[2024-07-16] MEDS: FAMOTIDINE 20MG/2ML VIAL 20 MG IV (10:02)
[2024-07-16] MEDS: METHYLPREDNISOLONE SOD SUCC 125MG VIAL 125 MG IV (10:02)
[2024-07-16] MEDS: LIDOCAINE 1% 10ML MDV 20 ML IJ (10:02)
[2024-07-16] MEDS: diphenhydrAMINE 50MG/ML VIAL 50 MG IV (10:05)
[2024-07-16] MEDS: HEPARIN 1,000 UNITS/500ML NS (CATH LAB) 3000 UNIT IV (10:06)
[2024-07-16] MEDS: 0.9 % SODIUM CHLORIDE 500 ML 25 ML IV (10:06)
[2024-07-16] MEDS: HEPARIN 1,000 UNITS/ML 10ML VIAL (CATH LAB) 10000 UNIT IV (10:30)
[2024-07-16] MEDS: PROPOFOL 10MG/ML 20ML VIAL 20 MG IV (10:46)
--- NOTE | 2024-07-16 12:09 | P.HP_ITS ---
History of Present Illness *Admission Date: 07/16/24 *Reason for visit:: Status post renal artery stent *History of present illness: Ms. Byrne is a 69-year-old female who presented for left heart cath. Underwent right renal artery stenting due to complexity of her vascular disease. Found to have critical coronary artery disease and severe aortic stenosis. She is currently scheduled to see CT surgery at on Tuesday for management of her CAD and . Due to inability to close right femoral artery with Perclose device, medicine consulted to monitor overnight for management of groin incision. Patient complaining about lying down on evaluation. Has history of significant surgery on her back with hardware in place. She is stable on room air. Denies nausea or vomiting. Is complaining of some mild back pain. Significant cardiac conditions as follows: -Severe aortic stenosis with KARISHMA of 0.8 cm? 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 -Left heart cath 06/2019 with three-vessel disease. BA to left main/LAD 06/2019 [facility] Disclaimer: The information contained in this section may have been updated after the patient was seen, as this information can be updated by other users. Medical History Aortic stenosis, severe Status post stereotactic radiosurgery Primary lung cancer Abnormal ankle brachial index (JOEY) Claudication Lung nodule Seasonal allergies Smoking greater than 30 pack years Dyspnea on exertion Multiple pulmonary nodules High cholesterol Smoker COPD (chronic obstructive pulmonary disease) Hypertension Intermittent claudication Aortic stenosis Chest pain COPD (chronic obstructive pulmonary disease) Surgical History History of heart artery stent History of surgery on upper extremity History of surgery on lower extremity History of facial surgery History of lumbar surgery History of cervical spinal surgery History of colonoscopy History of hysterectomy History of arthroscopic knee surgery Family History Other Alcoholism COPD (chronic obstructive pulmonary disease) Cancer Social History Smoking Status: Current some day smoker second hand exposure: Yes alcohol intake: current alcohol intake frequency: holidays/special occasions only substance use type: denies use current occupational status: disabled Travel in the last 8 weeks: None household members: none housing: house current occupational exposures/hazards: No caffeine: Yes Have you lived/traveled outside [place] in past 30 days?: No Contact w/someone who lives/traveled outside US past 30 days?: No Exposure to someone with infectious disease in past 14 days?: No Do you have a fever (greater than 100.4 F or 38 C)?: No Have you tested positive for COVID-19: No Exposed to someone with COVID-19 in past 14 days?: No Do you have a sore throat?: No Do you have a cough?: No Do you have any weakness?: No Are you experiencing any nausea/vomitting?: No Do you have any diarrhea?: No Are you experiencing any unusual bleeding?: No Do you have any muscle aches/pain?: No Do you have any abdominal pain?: No Are you experiencing loss of taste or smell?: No Other Medical History Have you received the Flu Vaccine for this season: No Have you received the Pneumonia Vaccine: Yes Review of Systems Review of Systems Review of systems (narrative): 14 point review of systems performed, pertinent positives and negatives as per HPI Meds Home Medications and Allergies Home Medications ?Medication ?Instructions ?Recorded ?Confirmed ?Type diazepam 5 mg tablet 5 mg PO QIDP PRN Anxiety 05/16/19 05/29/24 History lansoprazole 30 mg capsule,delayed 30 mg PO DAILY Acid reflux 07/02/19 06/28/24 History release docusate sodium 100 mg capsule 100 mg PO DAILY constipation 08/29/19 06/28/24 History (Stool Softener) multivitamin with iron 1 tab PO DAILY Supplement 08/29/19 07/16/24 History levothyroxine 50 mcg tablet 50 mcg PO DAILY THYROID 12/04/20 07/16/24 History hydrocodone 7.5 mg-acetaminophen 1 tab PO TIDP PRN Moderate Pain 09/03/22 06/28/24 History 325 mg tablet (Scale Score 5-6) aspirin 81 mg tablet,delayed 81 mg PO DAILY heart health #90 11/16/23 06/28/24 Rx release tabs clopidogrel 75 mg tablet 75 mg PO DAILY PLATELET INHIBITOR 11/16/23 06/28/24 Rx #90 tabs furosemide 20 mg tablet 20 mg PO DAILY #90 tabs 11/16/23 06/28/24 Rx lisinopril 20 mg tablet 20 mg PO DAILY Hypertension #90 07/24/24 03/24/25 Rx tabs metoprolol succinate 50 mg 50 mg PO DAILY Hypertension #90 11/16/23 07/16/24 Rx tablet,extended release 24 hr tabs fluticasone fur. 100 mcg-umeclid 1 inh inhalation DAILY 90 days #90 01/11/24 06/28/24 Rx 62.5 mcg-vilant 25 mcg ea inhalat.powder (Trelegy Ellipta) montelukast 10 mg tablet 10 mg PO DAILY 90 days #90 tabs 01/11/24 07/16/24 Rx albuterol sulfate 90 mcg/actuation 2 inh inhalation QID PRN shortness 05/01/24 06/28/24 Rx aerosol inhaler of breath or wheezing 90 days #8.5 grams fluticasone propionate 50 1 spray intranasal DAILY 90 days 05/30/24 06/28/24 Rx mcg/actuation nasal #16 grams spray,suspension (Flonase Allergy Relief) evolocumab 140 mg/mL subcutaneous 140 mg SQ DIRECTED Arthritis #2 07/09/24 Rx pen injector (Repatha SureClick) mL nitroglycerin 0.4 mg sublingual 0.4 mg sublingual Q5MINP PRN Chest 07/09/24 07/16/24 Rx tablet Pain #30 tabs prednisone 20 mg tablet 20 mg PO DAILY #6 tabs 07/11/24 07/16/24 Rx New Prescriptions to Start Prescriptions: Allergies Allergy/AdvReac Type Severity Reaction Status Date / Time Iodinated Contrast Media Allergy Severe S-DIFF. Verified 07/16/24 12:29 (Iodinated Contrast Media - BREATHING IV Dye) meperidine (From Demerol) Allergy Unknown Verified 07/16/24 12:29 allergy reaction atorvastatin (From Lipitor) AdvReac Intermediate myalgia Verified 07/16/24 12:29 fat emulsions (From Liposyn AdvReac Intermediate myalgia Verified 07/16/24 12:29 II) rosuvastatin (From Crestor) AdvReac Intermediate myalgia Verified 07/16/24 12:29 simvastatin (From Zocor) AdvReac Intermediate myalgia Verified 07/16/24 12:29 Idexpxl-OGV-FkR Reductase AdvReac Intermediate myalgias Verified 07/16/24 12:29 Inhibitor (Ahyrnva-Xmm-Hyo Reductase Inhibitor) pseudoephedrine AdvReac heart Verified 07/16/24 12:29 racing Exam Data for Last 24 hours Vital signs and Labs for Last 24 Hours: Pulse Resp BP Pulse Ox O2 Del Method 77 18 128/88 95 Room Air 07/16/24 11:32 07/16/24 11:32 07/16/24 11:32 07/16/24 11:32 07/16/24 11:27 Laboratory Results - last 24 hr 07/16/24 08:21: WBC 8.6, RBC 3.54 L, Hgb 11.2 L, Hct 34.0 L, MCV 96.0, MCH 31.6 H, MCHC 32.9, RDW 12.8, Plt Count 302, MPV 10.1, Neut % (Auto) 89.0 H, Lymph % (Auto) 7.0 L, [place] % (Auto) 1.5 L, Eos % (Auto) 1.8, Baso % (Auto) 0.2, Neut # (Auto) 7.6, Lymph # (Auto) 0.6 L, [place] # (Auto) 0.1, Eos # (Auto) 0.2, Baso # (Auto) 0.0, Sodium 132 L, Potassium 4.8, Chloride 99, Carbon Dioxide 24, Anion Gap 13.8, BUN 18 H, Creatinine 1.30 H, Estimated Creat Clear 55, Estimated GFR 40 L, Est GFR ( Amer) 49 L, Glucose 151 H, Calcium 9.6 I & O for Last 24 hours: Intake & Output 07/13/24 07/14/24 07/15/24 07/16/24 23:59 23:59 23:59 23:59 Weight 87.997 kg Constitutional Constitutional: no acute distress, obese and cooperative *Routine HEENT Exam Head: Present normocephalic Eye: Present EOMI and PERRL ENT: Present mucous membranes moist *Routine Neck Exam Neck: Present supple and full ROM; Absent JVD *Routine Respiratory Exam Respiratory: Present normal respiratory effort and symmetric chest movement; Absent rhonchi, wheezes or crackles *Routine Cardiovascular Exam Cardiovascular: Present RRR *Routine Abdominal Exam Abdominal: Present soft and normoactive bowel sounds; Absent tenderness or distended *Routine Rectal Exam Rectal:: deferred *Routine Genitalia Exam Genitalia:: deferred Comment:: Right femoral access site clean dry and intact. Bandage in place *Routine Extremities Exam Extremities: Present full ROM and pulses intact (But weak); Absent cyanosis, clubbing or edema *Routine Skin Exam Skin: Present intact and warm; Absent rash *Routine Neurological Exam Neurological: Present alert, oriented X3, moving all extremities, vision grossly intact, hearing grossly intact and normal speech; Absent sensory deficit or motor deficit Routine Psychiatric Exam Psychiatric: Present normal affect Assessment and Plan *Assessment and plan (1) Renal artery stenosis: Status: Acute Category: Medical Code(s): I70.1 - Atherosclerosis of renal artery (2) Aortic stenosis, severe: Status: Acute Category: Medical Code(s): I35.0 - Nonrheumatic aortic (valve) stenosis (3) Smoking greater than 30 pack years: Status: Chronic Category: Social Hx Code(s): F17.210 - Nicotine dependence, cigarettes, uncomplicated (4) COPD (chronic obstructive pulmonary disease): Status: Chronic Qualifiers: COPD type: unspecified COPD Qualified Code(s): J44.9 - Chronic obstructive pulmonary disease, unspecified Category: Medical Code(s): J44.9 - Chronic obstructive pulmonary disease, unspecified (5) HTN (hypertension): Status: Chronic Qualifiers: Hypertension type: essential hypertension Qualified Code(s): I10 - Essential (primary) hypertension Category: Medical Code(s): I10 - Essential (primary) hypertension (6) HLD (hyperlipidemia): Status: Chronic Qualifiers: Hyperlipidemia type: mixed hyperlipidemia Qualified Code(s): E78.2 - Mixed hyperlipidemia Category: Medical Code(s): E78.5 - Hyperlipidemia, unspecified (7) PAD (peripheral artery disease): Status: Chronic Category: Medical Code(s): I73.9 - Peripheral vascular disease, unspecified (8) Obesity: Status: Chronic Qualifiers: Obesity type: unspecified obesity type Obesity classification: adult class 1 (BMI 30 - 34.9) Serious obesity comorbidity presence: unspecified whether serious comorbidity present Body mass index: BMI 31.0-31.9 Qualified Code(s): E66.9 - Obesity, unspecified; Z68.31 - Body mass index [BMI] 31.0-31.9, adult Category: Medical Code(s): E66.9 - Obesity, unspecified (9) CAD (coronary artery disease): Status: Chronic Qualifiers: Coronary Disease-Associated Artery/Lesion type: [place] artery [place] vs. transplanted heart: [place] heart Associated angina: without angina Qualified Code(s): I25.10 - Atherosclerotic heart disease of [place] coronary artery without angina pectoris Category: Medical Code(s): I25.10 - Atherosclerotic heart disease of [place] coronary artery without angina pectoris Plan 69-year-old female presented for left heart cath. History of severe aortic stenosis and multivessel CAD. Found to have critical coronary artery disease of left main, LAD, and RCA with recommendation of CABG. Severe AAS needing open aortic valve replacement. Found to have renal artery stenosis, status post 1 stent today. Discussed case with cardiology, requested admission overnight for monitoring of right femoral access site. I agreed to admit for management. Hemodynamically stable on arrival to the floor. Monitor overnight for bleeding. Problems addressed as follows: DuoNebs as needed every 6 hours for COPD Continue aspirin 81 mg daily for bare-metal stent in right renal artery Follow-up with CT surgery Tuesday at for consideration of TAVR versus open AVR. Cardiology recommends consideration of CABG but patient is unwilling at this time to consider -They plan to have further discussion about risks of CABG for stenting. Consider management pending risk discussion and patient preference -Continue Repatha and Zetia due to her history of intolerance to statins for hyperlipidemia -Continue home regimen for hypertension -Nicotine patch as needed for tobacco use disorder - Review of patient's chart and previous imaging showing echo obtained last month with severe , EF preserved at 55%. -White count normal 8.6, mild anemia with hemoglobin 11.2. Platelets 302. Sodium mildly low at 132, chronic kidney disease with BUN 18, creatinine 1.3. Consistent with stage III CKD. -Repeat CBC, CMP, magnesium ordered for morning Continue home Valium 5 mg as needed every 6 hours Continue home Plavix 75 mg daily Continue daily stool softener with docusate Continue Trelegy 1 puff daily Continue Lasix 20 mg daily per home regimen Continue levothyroxine 50 mcg daily for hypothyroid Continue lisinopril 20 mg daily for hypertension along with metoprolol succinate 50 mg daily Continue singular 10 mg daily for COPD Full code Cardiac diet Heparinized in cath
--- NOTE | 2024-07-16 12:28 | PC.NURSE ---
PT ADMITTED FROM LABORATORY CLERK, ROOM [id number] STEPDOWN. ALL STAFF NOTIFIED
--- NOTE | 2024-07-16 14:03 | P.CONCA_ITS ---
History of Present Illness History of Present Illness Consult date: 07/16/24 Requesting physician: Kolby Munguia Consult reason: known to you Chief complaint: CP, HTN, SOA Additional Medical History:: 1. Tobacco use, since age [address] guided biopsy RUL nodule, 01/2023, positive for pulmonary adenocarcinoma B. Cyberknife therapy at [facility], 03/2023. Followed by Dr. Rafi Diaz. COPD with mod obstructive lung disease, PFT, 11/2023 2. PAD A. prior iliac stenting B. Successful reconstruction of distal abdominal aorta with removal of large dissection flap with 2 kissing stents. Dissection flap noted on CT scan prior to procedure. 12/2021. Dr. Scott Diaz. Successful intravascular lithotripsy to left SFA and popliteal followed by drug-coated balloon angioplasty, 08/2022. 3. HTN 4. HLD A. Intolerant to statins (lipitor, crestor, zocor) B. On Repatha and zetia 5. Anxiety/Depression 6. IV contrast allergy 7. CAD A. [facility], 06/2019, 3 vessel disease, LVEF 30-35%, LVEDP 38 mm Hg B. BA to [facility]/LAD, Dr. Lamb, 06/2019 8. PAF A. Amiodarone, eliquis, started 2019 B. Amiodarone stopped 2020 due to pulmonary nodules, hypothyoidism and hair loss with no evidence of A. fib since 06/2019 C. eliquis stopped due to rectal bleeding 9. Valvular heart disease A. Aortic stenosis, severe, 06/2024, KARISHMA 0.8 cm2 10. Rectal surgery performed for history of bleeding History of present illness: 69-year-old white female admitted post cardiac catheterization with right renal artery stenting due to complexity of her vascular disease including critical coronary artery disease and severe aortic stenosis. Patient is to be started on IV fluids and monitored overnight with plans to keep appointment at the [facility] on Tuesday for consideration of open aortic valve replacement and surgical revascularization. [facility] Disclaimer: The information contained in this section may have been updated after the patient was seen, as this information can be updated by other users. Medical History Aortic stenosis, severe Status post stereotactic radiosurgery Primary lung cancer Abnormal ankle brachial index (JOEY) Claudication Lung nodule Seasonal allergies Smoking greater than 30 pack years Dyspnea on exertion Multiple pulmonary nodules High cholesterol Smoker COPD (chronic obstructive pulmonary disease) Hypertension Intermittent claudication Aortic stenosis Chest pain COPD (chronic obstructive pulmonary disease) Surgical History History of heart artery stent History of surgery on upper extremity History of surgery on lower extremity History of facial surgery History of lumbar surgery History of cervical spinal surgery History of colonoscopy History of hysterectomy History of arthroscopic knee surgery Family History Other Alcoholism COPD (chronic obstructive pulmonary disease) Cancer Social History (Updated 07/16/24 @ 15:25 by Meg Becerra RN) Smoking Status: Current some day smoker second hand exposure: Yes alcohol intake: current alcohol intake frequency: holidays/special occasions only substance use type: denies use current occupational status: disabled Travel in the last 8 weeks: None household members: none housing: house current occupational exposures/hazards: No caffeine: Yes Have you lived/traveled outside [place] in past 30 days?: No Contact w/someone who lives/traveled outside US past 30 days?: No Exposure to someone with infectious disease in past 14 days?: No Do you have a fever (greater than 100.4 F or 38 C)?: No Have you tested positive for COVID-19: No Exposed to someone with COVID-19 in past 14 days?: No Do you have a sore throat?: No Do you have a cough?: No Do you have any weakness?: No Are you experiencing any nausea/vomitting?: No Do you have any diarrhea?: No Are you experiencing any unusual bleeding?: No Do you have any muscle aches/pain?: No Do you have any abdominal pain?: No Are you experiencing loss of taste or smell?: No Review of Systems Review of Systems Review of systems:: pertinent systems reviewed and negative unless documented below *Cardiovascular Cardiovascular: Reports chest pain, Reports dyspnea and Reports dyspnea on exertion *Respiratory Respiratory: Reports dyspnea and Reports dyspnea on exertion Exam Data for Last 24 hours Vital signs and Labs for Last 24 Hours: Pulse Resp BP Pulse Ox O2 Del Method 79 20 150/68 H 97 Room Air 07/16/24 13:55 07/16/24 13:55 07/16/24 13:55 07/16/24 13:55 07/16/24 13:55 Laboratory Results - last 24 hr 07/16/24 08:21: WBC 8.6, RBC 3.54 L, Hgb 11.2 L, Hct 34.0 L, MCV 96.0, MCH 31.6 H, MCHC 32.9, RDW 12.8, Plt Count 302, MPV 10.1, Neut % (Auto) 89.0 H, Lymph % (Auto) 7.0 L, [place] % (Auto) 1.5 L, Eos % (Auto) 1.8, Baso % (Auto) 0.2, Neut # (Auto) 7.6, Lymph # (Auto) 0.6 L, [place] # (Auto) 0.1, Eos # (Auto) 0.2, Baso # (Auto) 0.0, Sodium 132 L, Potassium 4.8, Chloride 99, Carbon Dioxide 24, Anion Gap 13.8, BUN 18 H, Creatinine 1.30 H, Estimated Creat Clear 55, Estimated GFR 40 L, Est GFR ( Amer) 49 L, Glucose 151 H, Calcium 9.6 I & O for Last 24 hours: Intake & Output 07/14/24 07/15/24 07/16/24 07/17/24 11:59 11:59 11:59 11:59 Weight 194 lb Constitutional Constitutional: no acute distress *Routine Respiratory Exam Respiratory: Present decreased breath sounds *Routine Cardiovascular Exam Cardiovascular: Present RRR and murmur; Absent gallop or rubs Meds Home Medications and Allergies Home Medications ?Medication ?Instructions ?Recorded ?Confirmed ?Type diazepam 5 mg tablet 5 mg PO QIDP PRN Anxiety 05/16/19 05/29/24 History lansoprazole 30 mg capsule,delayed 30 mg PO DAILY Acid reflux 07/02/19 06/28/24 History release docusate sodium 100 mg capsule 100 mg PO DAILY constipation 08/29/19 06/28/24 History (Stool Softener) multivitamin with iron 1 tab PO DAILY Supplement 08/29/19 07/16/24 History levothyroxine 50 mcg tablet 50 mcg PO DAILY THYROID 12/04/20 07/16/24 History hydrocodone 7.5 mg-acetaminophen 1 tab PO TIDP PRN Moderate Pain 09/03/22 06/28/24 History 325 mg tablet (Scale Score 5-6) aspirin 81 mg tablet,delayed 81 mg PO DAILY heart health #90 11/16/23 06/28/24 Rx release tabs clopidogrel 75 mg tablet 75 mg PO DAILY PLATELET INHIBITOR 11/16/23 06/28/24 Rx #90 tabs furosemide 20 mg tablet 20 mg PO DAILY #90 tabs 11/16/23 06/28/24 Rx lisinopril 20 mg tablet 20 mg PO DAILY Hypertension #90 11/16/23 07/16/24 Rx tabs metoprolol succinate 50 mg 50 mg PO DAILY Hypertension #90 11/16/23 07/16/24 Rx tablet,extended release 24 hr tabs fluticasone fur. 100 mcg-umeclid 1 inh inhalation DAILY 90 days #90 01/11/24 06/28/24 Rx 62.5 mcg-vilant 25 mcg ea inhalat.powder (Trelegy Ellipta) montelukast 10 mg tablet 10 mg PO DAILY 90 days #90 tabs 01/11/24 07/16/24 Rx albuterol sulfate 90 mcg/actuation 2 inh inhalation QID PRN shortness 05/01/24 06/28/24 Rx aerosol inhaler of breath or wheezing 90 days #8.5 grams fluticasone propionate 50 1 spray intranasal DAILY 90 days 05/30/24 06/28/24 Rx mcg/actuation nasal #16 grams spray,suspension (Flonase Allergy Relief) evolocumab 140 mg/mL subcutaneous 140 mg SQ DIRECTED Arthritis #2 07/09/24 Rx pen injector (Danika Pardo) mL nitroglycerin 0.4 mg sublingual 0.4 mg sublingual Q5MINP PRN Chest 07/09/24 07/16/24 Rx tablet Pain #30 tabs prednisone 20 mg tablet 20 mg PO DAILY #6 tabs 07/11/24 07/16/24 Rx New Prescriptions to Start Prescriptions: Allergies Allergy/AdvReac Type Severity Reaction Status Date / Time Iodinated Contrast Media Allergy Severe S-DIFF. Verified 07/16/24 12:29 (Iodinated Contrast Media - BREATHING IV Dye) meperidine (From Demerol) Allergy Unknown Verified 07/16/24 12:29 allergy reaction atorvastatin (From Lipitor) AdvReac Intermediate myalgia Verified 07/16/24 12:29 fat emulsions (From Liposyn AdvReac Intermediate myalgia Verified 07/16/24 12:29 II) rosuvastatin (From Crestor) AdvReac Intermediate myalgia Verified 07/16/24 12:29 simvastatin (From Zocor) AdvReac Intermediate myalgia Verified 07/16/24 12:29 Pilgopo-JVE-RkM Reductase AdvReac Intermediate myalgias Verified 07/16/24 12:29 Inhibitor (Yhbvvce-Ywz-Tpk Reductase Inhibitor) pseudoephedrine AdvReac heart Verified 07/16/24 12:29 racing Assessment and Plan *Assessment and plan (1) Aortic stenosis, severe: Status: Acute Category: Medical Code(s): I35.0 - Nonrheumatic aortic (valve) stenosis (2) CAD (coronary artery disease): Status: Chronic Qualifiers: Associated angina: without angina Coronary Disease-Associated Artery/Lesion type: [place] artery [place] vs. transplanted heart: [place] heart Qualified Code(s): I25.10 - Atherosclerotic heart disease of [place] coronary artery without angina pectoris Category: Medical Code(s): I25.10 - Atherosclerotic heart disease of [place] coronary artery without angina pectoris (3) HTN (hypertension): Status: Chronic Qualifiers: Hypertension type: essential hypertension Qualified Code(s): I10 - Essential (primary) hypertension Category: Medical Code(s): I10 - Essential (primary) hypertension (4) HLD (hyperlipidemia): Status: Chronic Qualifiers: Hyperlipidemia type: mixed hyperlipidemia Qualified Code(s): E78.2 - Mixed hyperlipidemia Category: Medical Code(s): E78.5 - Hyperlipidemia, unspecified (5) COPD (chronic obstructive pulmonary disease): Status: Chronic Qualifiers: COPD type: unspecified COPD Qualified Code(s): J44.9 - Chronic obstructive pulmonary disease, unspecified Category: Medical Code(s): J44.9 - Chronic obstructive pulmonary disease, unspecified (6) Renal artery stenosis: Status: Acute Category: Medical Code(s): I70.1 - Atherosclerosis of renal artery Plan 1. Renal artery stenosis -Status post right renal artery stenting with 1 bare-metal stent -Aspirin for the bare-metal stent 2. Critical coronary artery disease of left main, LAD and RCA with recommendation for open heart surgery 3. Severe aortic stenosis with recommendation of open aortic valve replacement 4. COPD with significant history of tobacco use 5. History of right upper lobe cancer status post CyberKnife therapy, 2022/2023 6. PAD with prior abdominal aorta bifurcation reconstruction 7. Hypertension 8. Hyperlipidemia, on Repatha and Zetia with history of intolerance to statins Monitor overnight and if stable then discharge home. She has appt at [facility] on Tuesday for consideration of TAVR vs open AVR. Recommend consideration of CABG but patient is unwilling to consider that at this time. If she understands that she is high risk for coronary stenting or CABG, but still prefers coronary stenting, then it could be done here.
--- NOTE | 2024-07-16 14:38 | INFXCTL.NOTE ---
arrived be stretcher from [employer]
[2024-07-16] MEDS: IOPAMIDOL-370 (76%);100ML BOTTLE 110 ML IV (15:17)
[2024-07-16 15:24] LABS: CATHL Activated Clotting Time 268 SEC (74-125)
[2024-07-16 15:25] LABS: CATHL Activated Clotting Time 188 SEC (74-125)
[2024-07-16 15:26] LABS: CATHL Activated Clotting Time 215 SEC (74-125)
[2024-07-16 15:26] LABS: CATHL Activated Clotting Time 205 SEC (74-125)
[2024-07-16 15:30] LABS: CATHL Activated Clotting Time 249 SEC (74-125)
[2024-07-16] MEDS: 0.9 % SODIUM CHLORIDE 1000ML 1,000 ML 100 ML IV (16:00)
--- NOTE | 2024-07-16 18:32 | PC.NURSE ---
Pt is alert and oriented x4. She has complained of neck pain since arriving to the floor. Pain medication offered but she is refusing at this time. She remains on RA. Dressing to right groin is clean, dry and intact. She has been NSR on telemetry. She has no other questions or concerns at this time. Bed is locked and in the lowest position, call light is within reach.
[2024-07-16] MEDS: LISINOPRIL 20MG TABLET 20 MG PO (20:41)
[2024-07-16] MEDS: METOPROLOL SUCCINATE XL 50MG TABLET 50 MG PO (20:41)
[2024-07-16] MEDS: PANTOPRAZOLE 40MG TABLET 40 MG PO (20:41)
[2024-07-17] VITALS: PULSE 80; TEMP 36.7
[2024-07-17 02:00] VITALS: BP 104/54; PULSE 85; RESP 20; O2SAT 93
[2024-07-17] MEDS: 0.9 % SODIUM CHLORIDE 1000ML 1,000 ML 100 ML IV (02:12)
[2024-07-17] MEDS: ACETAMINOPHEN 325MG TAB 650 MG PO ×2 (03:06→07:35)
[2024-07-17 04:00] VITALS: PULSE 90; BMI 34.0
[2024-07-17 06:00] VITALS: BP 137/70; PULSE 74; RESP 23; O2SAT 93
[2024-07-17 06:32] LABS: Basophils % 0.2 % (0.1-2.0); Eosinophils # 0.2 K/mm3 (0.0-0.4); Eosinophils % 1.2 % (0.1-12.0); Hematocrit 27.6 % (37.0-47.0); Lymphocytes # 1.1 K/mm3 (0.7-4.5); Lymphocytes % 8.2 % (10-50); Mean Corpuscular HGB Conc 31.9 g/dL (31.8-35.4); Mean Corpuscular Hemoglobin 31.7 pg (27.0-31.2); Mean Corpuscular Volume 99.3 fl (81-99); Mean Platelet Volume 10.6 fl (7.4-10.4); Monocytes # 1.4 K/mm3 (0.1-1.0); Monocytes % 10.2 % (1.7-9.3); Neutrophils # 10.5 K/mm3 (1.8-7.8); Neutrophils % 79.6 % (37.0-80.0); Platelet Count 266 K/mm3 (142-424); Red Blood Count 2.78 M/mm3 (4.20-5.40); White Blood Count 13.2 K/mm3 (4.8-10.8)
[2024-07-17 06:39] LABS: Anion Gap 8.4 mEq/L (5-15); Blood Urea Nitrogen 22 mg/dl (7-17); Calcium 8.9 mg/dl (8.4-10.2); Carbon Dioxide 24 mmol/L (22.0-30.0); Chloride 108 mmol/L (98-107); Creatinine Clearance Estimated 59 mL/min (50-200); Estimated Glomerular Filt Rate 44 ml/min (>60); GFR (African American) 54 ML/MIN (>60); Glucose 94 mg/dl (74-100); Hemoglobin 8.8 g/dL (12.2-16.2); Potassium 4.4 mmoL/L (3.5-5.1); Sodium 136 mmol/L (136-145)
[2024-07-17 08:00] VITALS: PULSE 100
--- NOTE | 2024-07-17 08:57 | PC.NURSE ---
IV fluids discontinued per Jag DOUGLAS, cardiology
[2024-07-17] MEDS: LEVOTHYROXINE 50MCG (0.05MG) TAB 50 MCG PO (09:08)
[2024-07-17] MEDS: ASPIRIN EC 81MG TABLET 81 MG PO (09:09)
[2024-07-17] MEDS: CLOPIDOGREL 75MG TAB 75 MG PO (09:09)
[2024-07-17] MEDS: FUROSEMIDE 20MG TABLET 20 MG PO (09:10)
--- NOTE | 2024-07-17 09:18 | PC.NURSE ---
Patient states she takes her metoprolol XL at night. Scheduled changed per patient request
--- NOTE | 2024-07-17 09:33 | P.PN_ITS ---
Subjective Subjective Date: 07/17/24 Time: 09:33 Principal diagnosis: CAD, Aortic stenosis Interval history: 69-year-old white female sitting in bedside chair in no acute distress. Anxious to go home to take care of her dog. Extended discussion regarding her multivessel coronary artery disease with critical blockages in addition to her aortic stenosis. Options of catheter- based procedures versus open heart discussed and reviewed with patient. She wishes to be discharged home and keep her appointment with Dr. Lamb at [facility] on Tuesday to see if her aortic valve can be replaced using TAVR. If that is not an option then open heart will be her only option left. Initially she has been reluctant to consider open heart but has now acquiesced and is open to it. Exam Data for Last 24 hours Vital signs and Labs for Last 24 Hours: Temp Pulse Resp BP Pulse Ox O2 Del Method 98.0 F 100 H 23 137/70 93 L Room Air 07/17/24 00:00 07/17/24 08:00 07/17/24 06:00 07/17/24 06:00 07/17/24 06:00 07/17/24 07:49 Laboratory Results - last 24 hr 07/16/24 10:38: Activated Clotting Time 268 H* 07/16/24 11:16: Activated Clotting Time 249 H* 07/16/24 11:51: Activated Clotting Time 215 H* 07/16/24 12:23: Activated Clotting Time 205 H* 07/16/24 12:54: Activated Clotting Time 188 H* 07/17/24 05:20: WBC 13.2 H D, RBC 2.78 L, Hgb 8.8 L D, Hct 27.6 L, MCV 99.3 H, MCH 31.7 H, MCHC 31.9, RDW 13.0, Plt Count 266, MPV 10.6 H, Neut % (Auto) 79.6, Lymph % (Auto) 8.2 L, [place] % (Auto) 10.2 H, Eos % (Auto) 1.2, Baso % (Auto) 0.2, Neut # (Auto) 10.5 H, Lymph # (Auto) 1.1, [place] # (Auto) 1.4 H, Eos # (Auto) 0.2, Baso # (Auto) 0.0, Sodium 136, Potassium 4.4, Chloride 108 H, Carbon Dioxide 24, Anion Gap 8.4, BUN 22 H, Creatinine 1.20 H, Estimated Creat Clear 59, Estimated GFR 44 L, Est GFR ( Amer) 54 L, Glucose 94 D, Calcium 8.9 I & O for Last 24 hours: Intake & Output 07/14/24 07/15/24 07/16/24 07/17/24 11:59 11:59 11:59 11:59 Intake Total 1763 / 1763 Output Total 500 / 500 Balance 1263 / 1263 Weight 194 lb 192 lb 3.889 oz Constitutional Constitutional: no acute distress *Routine Respiratory Exam Respiratory: Present decreased breath sounds and CTA bilaterally *Routine Cardiovascular Exam Cardiovascular: Present RRR and murmur; Absent gallop or rubs Progress Note: A&P Assessment and plan (1) Renal artery stenosis: Status: Acute (2) Aortic stenosis, severe: Status: Acute (3) CAD (coronary artery disease): Status: Chronic (4) Smoking greater than 30 pack years: Status: Chronic (5) COPD (chronic obstructive pulmonary disease): Status: Chronic (6) HTN (hypertension): Status: Chronic (7) HLD (hyperlipidemia): Status: Chronic (8) PAD (peripheral artery disease): Status: Chronic (9) Obesity: Status: Chronic Assessment and Plan Assessment and Plan for All Diagnoses:: 1. Renal artery stenosis -Status post right renal artery stenting with 1 bare-metal stent -Aspirin for the bare-metal stent 2. Critical coronary artery disease of left main, LAD and RCA with recommendation for open heart surgery if TAVR not an option -on ASA and plavix, beta-silvia, sublingual nitroglycerin as needed 3. Severe aortic stenosis with recommendation of TAVR vs open aortic valve replacement -Patient has appointment with Dr. Lamb at on 07/20/2024 4. COPD with significant history of tobacco use 5. History of right upper lobe cancer status post CyberKnife therapy, 6. PAD with prior abdominal aorta bifurcation reconstruction 7. Hypertension 8. Hyperlipidemia, on Repatha and Zetia with history of intolerance to statins 9. Anemia, slightly worsened after IV fluids post cardiac cath (hemoglobin 11.2 down to 8.8) -No sign of bleeding at cath site with patient having no complaints of abdominal pain. Chronic back pain related to prior surgeries and hardware. 10. Chronic neck and back pain related to surgery and hardware Stable from a cardiac standpoint for discharge home. Follow-up in our office in 1 week. Repeat labs including CBC and BMP at follow- up. Home medication recommendations: Aspirin 81 mg daily Plavix 75 mg daily Repatha 140 mg every 2 weeks Lisinopril 20 mg daily Metoprolol succinate 50 mg daily Furosemide 20 mg daily Nitroglycerin sublingual 0.4 mg as needed chest pain
[2024-07-17] MEDS: FLUTICASONE/UMECLIDIN/VILANTER 100/62.5/25MCG INHALER 1 PUFF IH (09:41)
--- NOTE | 2024-07-17 10:34 | HMH.PHAINT1 ---
Pharmacy Intervention Comments: MEDICATION RECONCILIATION COMPLETE USING LIST FROM RECENT CARDIOLOGY OFFICE VISIT, EXTERNAL PHARMACY FILL HISTORY, AND LETTY REPORT.
--- NOTE | 2024-07-17 10:51 | P.DS_ITS ---
General Admission date:: 07/16/24 HPI HPI HPI: Ms. Byrne is a 69-year-old female who presented for left heart cath. Underwent right renal artery stenting due to complexity of her vascular disease. Found to have critical coronary artery disease and severe aortic stenosis. She is currently scheduled to see CT surgery at on Tuesday for management of her CAD and . Due to inability to close right femoral artery with Perclose device, medicine consulted to monitor overnight for management of groin incision. Patient complaining about lying down on evaluation. Has history of significant surgery on her back with hardware in place. She is stable on room air. Denies nausea or vomiting. Is complaining of some mild back pain. Significant cardiac conditions as follows: -Severe aortic stenosis with KARISHMA of 0.8 cm? 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 -Left heart cath 06/2019 with three-vessel disease. BA to left main/LAD 06/2019 Exam Data for Last 24 hours Vital signs and Labs for Last 24 Hours: Temp Pulse Resp BP Pulse Ox O2 Del Method 98.0 F 100 H 23 137/70 93 L Room Air 07/17/24 00:00 07/17/24 08:00 07/17/24 06:00 07/17/24 06:00 07/17/24 06:00 07/17/24 09:00 Laboratory Results - last 24 hr 07/16/24 10:38: Activated Clotting Time 268 H* 07/16/24 11:16: Activated Clotting Time 249 H* 07/16/24 11:51: Activated Clotting Time 215 H* 07/16/24 12:23: Activated Clotting Time 205 H* 07/16/24 12:54: Activated Clotting Time 188 H* 07/17/24 05:20: WBC 13.2 H D, RBC 2.78 L, Hgb 8.8 L D, Hct 27.6 L, MCV 99.3 H, MCH 31.7 H, MCHC 31.9, RDW 13.0, Plt Count 266, MPV 10.6 H, Neut % (Auto) 79.6, Lymph % (Auto) 8.2 L, [place] % (Auto) 10.2 H, Eos % (Auto) 1.2, Baso % (Auto) 0.2, Neut # (Auto) 10.5 H, Lymph # (Auto) 1.1, [place] # (Auto) 1.4 H, Eos # (Auto) 0.2, Baso # (Auto) 0.0, Sodium 136, Potassium 4.4, Chloride 108 H, Carbon Dioxide 24, Anion Gap 8.4, BUN 22 H, Creatinine 1.20 H, Estimated Creat Clear 59, Estimated GFR 44 L, Est GFR ( Amer) 54 L, Glucose 94 D, Calcium 8.9 I & O for Last 24 hours: Intake & Output 07/14/24 07/15/24 07/16/24 07/17/24 23:59 23:59 23:59 23:59 Intake Total 253 / 253 1510 / 1510 Output Total 500 / 500 Balance -247 / -247 1510 / 1510 Weight 87.997 kg 87.2 kg Results Data Completed and Pending Labs on day of discharge: Labs from last 24 hours 07/17/24 07/16/24 07/16/24 05:20 12:54 12:23 WBC 13.2 H D RBC 2.78 L Hgb 8.8 L D Hct 27.6 L MCV 99.3 H MCH 31.7 H MCHC 31.9 RDW 13.0 Plt Count 266 MPV 10.6 H Neut % (Auto) 79.6 Lymph % (Auto) 8.2 L [place] % (Auto) 10.2 H Eos % (Auto) 1.2 Baso % (Auto) 0.2 Neut # (Auto) 10.5 H Lymph # (Auto) 1.1 [place] # (Auto) 1.4 H Eos # (Auto) 0.2 Baso # (Auto) 0.0 Activated Clotting Time 188 H* 205 H* Sodium 136 Potassium 4.4 Chloride 108 H Carbon Dioxide 24 Anion Gap 8.4 BUN 22 H Creatinine 1.20 H Estimated Creat Clear 59 Estimated GFR 44 L Est GFR ( Amer) 54 L Glucose 94 D Calcium 8.9 07/16/24 07/16/24 07/16/24 11:51 11:16 10:38 WBC RBC Hgb Hct MCV MCH MCHC RDW Plt Count MPV Neut % (Auto) Lymph % (Auto) [place] % (Auto) Eos % (Auto) Baso % (Auto) Neut # (Auto) Lymph # (Auto) [place] # (Auto) Eos # (Auto) Baso # (Auto) Activated Clotting Time 215 H* 249 H* 268 H* Sodium Potassium Chloride Carbon Dioxide Anion Gap BUN Creatinine Estimated Creat Clear Estimated GFR Est GFR ( Amer) Glucose Calcium DS: Diagnosis Discharge Diagnosis (1) Renal artery stenosis: Status: Acute Code(s): I70.1 - Atherosclerosis of renal artery (2) Aortic stenosis, severe: Status: Acute Code(s): I35.0 - Nonrheumatic aortic (valve) stenosis (3) CAD (coronary artery disease): Status: Chronic Code(s): I25.10 - Atherosclerotic heart disease of [place] coronary artery without angina pectoris Qualifiers: Coronary Disease-Associated Artery/Lesion type: [place] artery [place] vs. transplanted heart: [place] heart Associated angina: without angina Qualified Code(s): I25.10 - Atherosclerotic heart disease of [place] coronary artery without angina pectoris (4) Smoking greater than 30 pack years: Status: Chronic Code(s): F17.210 - Nicotine dependence, cigarettes, uncomplicated (5) COPD (chronic obstructive pulmonary disease): Status: Chronic Code(s): J44.9 - Chronic obstructive pulmonary disease, unspecified Qualifiers: COPD type: unspecified COPD Qualified Code(s): J44.9 - Chronic obstructive pulmonary disease, unspecified (6) HTN (hypertension): Status: Chronic Code(s): I10 - Essential (primary) hypertension Qualifiers: Hypertension type: essential hypertension Qualified Code(s): I10 - Essential (primary) hypertension (7) HLD (hyperlipidemia): Status: Chronic Code(s): E78.5 - Hyperlipidemia, unspecified Qualifiers: Hyperlipidemia type: mixed hyperlipidemia Qualified Code(s): E78.2 - Mixed hyperlipidemia (8) PAD (peripheral artery disease): Status: Chronic Code(s): I73.9 - Peripheral vascular disease, unspecified (9) Obesity: Status: Chronic Code(s): E66.9 - Obesity, unspecified Qualifiers: Obesity type: unspecified obesity type Obesity classification: adult class 1 (BMI 30 - 34.9) Serious obesity comorbidity presence: unspecified whether serious comorbidity present Body mass index: BMI 31.0-31.9 Qualified Code(s): E66.9 - Obesity, unspecified; Z68.31 - Body mass index [BMI] 31.0-31.9, adult Meds Home Medications and Allergies Home Medications ?Medication ?Instructions ?Recorded ?Confirmed ?Type diazepam 5 mg tablet 5 mg PO QIDP PRN Anxiety 05/16/19 07/17/24 History lansoprazole 30 mg capsule,delayed 30 mg PO DAILY 07/02/19 07/17/24 History release docusate sodium 100 mg capsule 100 mg PO DAILY 08/29/19 07/17/24 History (Stool Softener) multivitamin with iron 1 tab PO DAILY 08/29/19 07/16/24 History levothyroxine 50 mcg tablet 50 mcg PO DAILYDM 12/04/20 07/17/24 History hydrocodone 7.5 mg-acetaminophen 1 tab PO TIDP PRN Moderate Pain 09/03/22 07/17/24 History 325 mg tablet (Scale Score 5-6) furosemide 20 mg tablet 20 mg PO DAILY #90 tabs 11/16/23 07/17/24 Rx lisinopril 20 mg tablet 20 mg PO DAILY Hypertension #90 11/16/23 07/16/24 Rx tabs metoprolol succinate 50 mg 50 mg PO DAILY Hypertension #90 11/16/23 07/16/24 Rx tablet,extended release 24 hr tabs fluticasone fur. 100 mcg-umeclid 1 inh inhalation DAILY 90 days #90 01/11/24 07/17/24 Rx 62.5 mcg-vilant 25 mcg ea inhalat.powder (Trelegy Ellipta) albuterol sulfate 90 mcg/actuation 2 inh inhalation QID PRN shortness 05/01/24 07/17/24 Rx aerosol inhaler of breath or wheezing 90 days #8.5 grams fluticasone propionate 50 1 spray intranasal DAILY 90 days 05/30/24 07/17/24 Rx mcg/actuation nasal #16 grams spray,suspension (Flonase Allergy Relief) nitroglycerin 0.4 mg sublingual 0.4 mg sublingual Q5MINP PRN Chest 07/09/24 07/16/24 Rx tablet Pain #30 tabs aspirin 81 mg tablet,delayed 81 mg PO DAILY 30 days #30 tabs 07/17/24 Rx release bempedoic acid 180 mg tablet 180 mg PO DAILY 07/17/24 07/17/24 History (Nexletol) clopidogrel 75 mg tablet 75 mg PO DAILY 07/17/24 07/17/24 History evolocumab 140 mg/mL subcutaneous 140 mg SQ .[id number] 07/17/24 07/17/24 History pen injector (christianonixon Pardo) montelukast 10 mg tablet 10 mg PO PM 07/17/24 07/17/24 History New Prescriptions to Start Prescriptions: aspirin TalyaMiguel Allergies Allergy/AdvReac Type Severity Reaction Status Date / Time Iodinated Contrast Media Allergy Severe S-DIFF. Verified 07/16/24 12:29 (Iodinated Contrast Media - BREATHING IV Dye) meperidine (From Demerol) Allergy Unknown Verified 07/16/24 12:29 allergy reaction atorvastatin (From Lipitor) AdvReac Intermediate myalgia Verified 07/16/24 12:29 fat emulsions (From Liposyn AdvReac Intermediate myalgia Verified 07/16/24 12:29 II) rosuvastatin (From Crestor) AdvReac Intermediate myalgia Verified 07/16/24 12:29 simvastatin (From Zocor) AdvReac Intermediate myalgia Verified 07/16/24 12:29 [id number] Reductase AdvReac Intermediate myalgias Verified 07/16/24 12:29 Inhibitor (Laqwplx-Lar-Tue Reductase Inhibitor) pseudoephedrine AdvReac heart Verified 07/16/24 12:29 racing Discharge Plan Disposition Patient Disposition: Home, Self-Care Condition: Fair Follow up Plan Follow up with: Omar Chavez MD [Staff Physician] - 07/23/24 2:30 pm Prescriptions/Medication Reconciliation: Continued multivitamin with iron Tablet 1 tab PO DAILY Patient Comments: TAKE 1 TABLET BY MOUTH DAILY docusate sodium [Stool Softener] 100 mg capsule 100 mg PO DAILY furosemide 20 mg tablet 20 mg PO DAILY Qty: 90 3RF lisinopril 20 mg tablet 20 mg PO DAILY Qty: 90 3RF metoprolol succinate 50 mg tablet extended release 24 hr 50 mg PO DAILY Qty: 90 3RF levothyroxine 50 mcg tablet 50 mcg PO DAILYDM Trelegy Ellipta 100-62.5-25 mcg blister with device 1 inh inhalation DAILY 90 Days Qty: 90 2RF albuterol sulfate 90 mcg/actuation HFA aerosol inhaler 2 inh inhalation QID PRN (Reason: shortness of breath or wheezing) 90 Days Qty: 8.5 2RF fluticasone propionate [Flonase Allergy Relief] 50 mcg/actuation spray,suspension 1 spray intranasal DAILY 90 Days Qty: 16 3RF Rx Instructions: administer into each nostril nitroglycerin 0.4 mg tablet, sublingual 0.4 mg SUBLINGUAL Q5MINP PRN (Reason: Chest Pain) Qty: 30 3RF Rx Instructions: do not exceed 3 doses per episode diazepam 5 MG tablet 5 mg PO QIDP PRN (Reason: Anxiety) hydrocodone-acetaminophen 7.5-325 mg tablet 1 tab PO TIDP PRN (Reason: Moderate Pain (Scale Score 5-6)) clopidogrel 75 mg tablet 75 mg PO DAILY montelukast 10 mg tablet 10 mg PO PM Repatha SureClick 140 mg/mL pen injector 140 mg SQ .[id number] Nexletol 180 mg tablet 180 mg PO DAILY aspirin 81 mg Tablet,Delayed Release (Dr/Ec) 81 mg PO DAILY 30 Days Qty: 30 5RF lansoprazole 30 MG capsule,delayed release(DR/EC) 30 mg PO DAILY Problem Reconciliation Problems Reviewed?: Yes Patient Discharge Instructions Patient Instructions: DI for Cardiac Catheterization, DI for Surgical Site Infection, DI for Moderate Sedation, DI for Post-Surgical Bleeding Print Language: Cuban Providers Primary Care Provider: Mustapha James Admit Provider: Omar Chavez Attending Provider: Kolby Munguia
--- NOTE | 2024-07-18 10:06 | SW/DCPLANNER ---
Spoke with patient on the phone. Patient stated that she is doing well. Patient stated that she is aware of her appointments. Patient stated that she was not given any new medicine. Patient stated that she has no concerns or questions at this time. Evens Bedolla
== END 2024-07-17 11:43 | disposition home or self-care (01) ==
LOC: 2ND 11:22 → ICU 12:28 → 2ND 14:10
PROVIDERS: Admitting Provider Internal Medicine; PCP Family Medicine; Visit Provider Internal Medicine Adolescent Medicine
DX: I70.1 Atherosclerosis of renal artery (principal); I77.1 Stricture of artery; I25.10 Atherosclerotic heart disease of native coronary artery without angina pectoris; I35.0 Nonrheumatic aortic (valve) stenosis; I10 Essential (primary) hypertension; E78.2 Mixed hyperlipidemia; I73.9 Peripheral vascular disease, unspecified; F17.210 Nicotine dependence, cigarettes, uncomplicated; J44.9 Chronic obstructive pulmonary disease, unspecified; E66.9 Obesity, unspecified; Z68.31 Body mass index [BMI] 31.0-31.9, adult; Z95.5 Presence of coronary angioplasty implant and graft; D64.9 Anemia, unspecified; Z88.8 Allergy status to other drugs, medicaments and biological substances; Z79.51 Long term (current) use of inhaled steroids; Z79.899 Other long term (current) drug therapy; I48.0 Paroxysmal atrial fibrillation; Z81.1 Family history of alcohol abuse and dependence; Z80.9 Family history of malignant neoplasm, unspecified; Z82.5 Family history of asthma and other chronic lower respiratory diseases
CPT/HCPCS: 36415; 37236; 80048; 85025; 85347; 94640; 99152; 99153; C1725; C1769; C1876; C1887; C1894; G0378; J1200; J1644; J2919; J7030; Q9967; S0028

== ENCOUNTER 2024-07-18 13:24 | Outpatient (CLI) | payer MEDICARE, SELFPAY ==
[2024-07-18 14:24] LABS: Basophils # 0.1 K/mm3 (0-0.2); Eosinophils # 0.2 K/mm3 (0.0-0.4); Eosinophils % 3.4 % (0.1-12.0); Hemoglobin 10.1 g/dL (12.2-16.2); Lymphocytes # 1.1 K/mm3 (0.7-4.5); Lymphocytes % 16.5 % (10-50); Mean Corpuscular HGB Conc 31.6 g/dL (31.8-35.4); Mean Corpuscular Volume 101.3 fl (81-99); Mean Platelet Volume 10.2 fl (7.4-10.4); Monocytes # 0.8 K/mm3 (0.1-1.0); Monocytes % 11.5 % (1.7-9.3); Neutrophils # 4.5 K/mm3 (1.8-7.8); Neutrophils % 67.2 % (37.0-80.0); Platelet Count 263 K/mm3 (142-424); Red Blood Count 3.16 M/mm3 (4.20-5.40); Red Cell Distribution Width 13.1 % (11.5-17.5); White Blood Count 6.7 K/mm3 (4.8-10.8)
[2024-07-18 14:48] LABS: Chloride 104 mmol/L (98-107); Potassium 4.3 mmoL/L (3.5-5.1); Sodium 142 mmol/L (136-145)
[2024-07-18 14:51] LABS: Anion Gap 11.3 mEq/L (5-15); Blood Urea Nitrogen 21 mg/dl (7-17); Calcium 9.2 mg/dl (8.4-10.2); Carbon Dioxide 31 mmol/L (22.0-30.0); Estimated Glomerular Filt Rate 37 ml/min (>60); GFR (African American) 45 ML/MIN (>60); Glucose 98 mg/dl (74-100)
== END 2024-07-18 23:59 | disposition home or self-care (01) ==
LOC: LAB 13:26
PROVIDERS: PCP Family Medicine; Visit Provider Internal Medicine
DX: I25.10 Atherosclerotic heart disease of native coronary artery without angina pectoris (principal); Z95.5 Presence of coronary angioplasty implant and graft; D64.9 Anemia, unspecified
CPT/HCPCS: 36415; 80048; 85025

== ENCOUNTER 2024-10-10 13:14 | Outpatient (CLI) | payer MEDICARE, SELFPAY ==
--- OUTSIDE RECORDS SUMMARY | 2024-08-15 08:43 | XMS_ITS | Encounter Summary ---
Author Organization [facility] Address [address] [id number] Care Team Providers Care Press Box Custodian Name Role Phone Mustapha James MD Primary Care Provider [phone] Reason for Referral * Imaging (Routine) - Closed Specialty Diagnoses / Procedures Referred By Contac t Referred To Contact Radiology Diagnoses Nonrheumatic aortic valve stenosis Procedures CT Angio Abdomen Pelvis Miguel Lamb MD [address] [place] [address] Phone: tel: fax: Referral ID Status Reason Start Date Expiration Date Visits Re quested Visits Authorized [id number] Closed 07/20/2024 01/19/2026 1 1 * Imaging (Routine) - Closed Specialty Diagnoses / Procedures Referred By Contac t Referred To Contact Radiology Diagnoses Nonrheumatic aortic valve stenosis Procedures CT Angio Chest Miguel Lamb MD [address] [place] [address] Phone: tel: fax: Referral ID Status Reason Start Date Expiration Date Visits Re quested Visits Authorized [id number] Closed 07/20/2024 01/19/2026 1 1 Reason for Visit * Imaging (Routine) - Closed Specialty Diagnoses / Procedures Referred By Contac t Referred To Contact Radiology Diagnoses Nonrheumatic aortic valve stenosis Procedures CT Angio Abdomen Pelvis Miguel Lamb MD [address] [place] [address] Phone: tel: fax: Referral ID Status Reason Start Date Expiration Date Visits Re quested Visits Authorized [id number] Closed 07/20/2024 01/19/2026 1 1 Encounter Details Date Type Department Care Team (Latest Contact Info) Description 08/15/2024 8:43 AM EDT - 08/15/2024 11:59 PM EDT Hospital Encounter [facility] [address] [place] [address] Nonrheumatic aortic valve stenosis Discharge Disposition: Home or Self Care Social History Tobacco Use Types Packs/Day Years Used Date Smoking Tobacco: Some Days Cigarettes Smokeless Tobacco: Never Alcohol Use Standard Drinks/Week Comments Never 0 (1 standard drink = 0.6 oz pur e alcohol) PHQ-2 Answer Date Recorded Patient Health Questionnaire-2 Score 0 07/20/2024 PHQ-9 Answer Date Recorded Patient Health Questionnaire-9 Score 0 07/20/2024 Comments No Sex and Gender Information Value Date Recorded Sex Assigned at Not on file Legal Sex Female 6:55 PM EDT Gender Identity Not on file Sexual Orientation Not on file documented as of this encounter Medications at Time of Discharge aspirin 81 MG EC tablet Take 1 tablet by mouth daily. diazePAM (Valium) 5 MG tablet Take 1 tablet by mouth 2 times a day. 07/24/2019 Evolocumab (Repatha) 140 MG/ML solution prefilled syringe Inject under the skin. famotidine (Pepcid) 20 MG tablet Take 1 tablet by mouth twice a day. fluticasone (Flonase) 50 MCG/ACT nasal spray Administer 1 spray into each nostril daily. 07/24/2019 Fluticasone-Umec lidin-Vilant (Trelegy Ellipta) 100-62.5-25 MCG/ACT aerosol powder Inhale. furosemide (Lasix) 20 MG tablet Take 1 tablet by mouth daily. 07/24/2019 HYDROcodone-acet aminophen ([place]) 7.5-325 MG tablet Take 1 tablet by mouth every 8 hours as needed. 07/24/2019 lansoprazole (Prevacid) [address] capsule Take 1 capsule by mouth daily. 07/24/2019 levothyroxine (Synthroid, Levoxyl) 50 MCG tablet Take 1 tablet by mouth daily before breakfast. lisinopril 20 MG tablet Take 1 tablet by mouth daily. 07/24/2019 metoprolol succinate XL (Toprol-XL) 50 MG 24 hr tablet Take 1 tablet by mouth daily. Do not crush or chew. montelukast (Singulair) 10 MG tablet Take 1 tablet by mouth nightly. Multiple Vitamins-Iron tablet Take 1 tablet by mouth daily. 07/24/2019 VITAMIN D, CHOLECALCIFEROL, PO Take by mouth. clopidogrel (Plavix) 75 MG tablet Take 1 tablet by mouth daily. 5 clopidogrel (Plavix) 75 MG tablet Take 1 tablet by mouth in the morning. 5 diphenhydrAMINE (Benadryl) 50 MG tablet Take 1 tablet [address] scan 1 tablet 1 07/20/2024 5 furosemide (Lasix) 20 MG tablet Take 1 tablet by mouth. 5 HYDROcodone-acet aminophen (Hycet) 7.5-325 MG/15ML solution Take by mouth every 6 hours as needed for severe pain. 5 montelukast (Singulair) 10 MG tablet Take 1 tablet by mouth nightly. 5 nitroglycerin (Nitrostat) 0.[address] 1 tablet under the tongue every 5 (five) minutes as needed for chest pain. 25 tablet 1 08/15/2024 5 predniSONE (Deltasone) 50 MG tablet Take 13 hours, 7 hours and [address] scan 3 tablet 1 07/20/2024 5 documented as of this encounter Miscellaneous Notes * Candice Vega - 08/15/2024 8:57 AM EDT Images from the original note were not included. 8419 Caring for Yourself after Contrast Imaging If you had ORAL contrast: ?? You can go back to your normal diet and activities as tolerated. ?? Drink plenty of fluids, unless told otherwise. If you had IV contrast: ?? You can go back to your normal diet and activities as tolerated. ?? Drink plenty of fluids, unless told otherwise. ?? Leave a bandage on the site for 30 minutes (where the IV was inserted or blood was drawn). If you had Intravesical (bladder) contrast: ?? Return to normal diet and activity. What you need to know about delayed reaction to IV contrast What is IV Contrast? ?? Contrast is a dye that is put into your body through an IV. ?? It is used for imaging scans such as CT scans and MRIs. ?? The contrast makes blood vessels, organs and other parts of your body show up better on the scan. What do I need to do after IV contrast? ?? Drink lots of fluids. This will help flush the contrast out of your system. ?? Drink 2-3 extra glasses or bottles of water within 4 hours of your scan. What is a contrast reaction? ?? A contrast reaction is a bad side effect from the contrast dye. ?? It is rare but it does happen. ?? They can be mild - such as sneezing, itching, or hives. ?? They can be severe - such as trouble breathing, throat swelling, and irregular heart beat. When do these reactions happen? ?? They often happen right after the contrast is injected. ?? Some happen hours after going home. Go to the nearest Emergency Department right away if you have any of these symptoms after you leavethe clinic or hospital. ?? Sneezing ?? Itching in your mouth, throat, eyes, ears, or skin ?? Rash or hives ?? Throwing up or stomach sickness ?? High heart rate or ?racing? of your heart ?? Feeling dizzy or woozy ?? Feeling short of breath or like you can?t take a deep breath ?? Feeling very anxious for no other reason It is very important that these reactions be treated. Tell the doctor or nurse that you are having a reaction to IV contrast dye. Do not ignore any sign of a reaction! All reactions must be assessed by a doctor. Call 911 if you are alone and your reaction is more than mild sneezing or itching. If you have a mild reaction, call to speak with a Radiologist, explain that you havehad a contrast reaction, as this needs to be added to your medical record. documented in this encounter Plan of Treatment Upcoming Encounters Date Type Department Care Team (Late st Contact Info) Description 01/04/2025 2:00 PM EDT Appointment Cardiac Imaging [address] [place] [address] 01/04/2025 3:30 PM EDT Office Visit [facility] [address] [place] [id number] Miguel Lamb MD [address] [place] [id number] documented as of this encounter Procedures Procedure Name Priority Date/Time Associated Diagnosis Comments CT ANGIO ABDOMEN PELVIS Routine 08/15/2024 9:20 AM EDT Nonrheumatic aortic valve stenosis CT ANGIO CHEST Routine 08/15/2024 9:20 AM EDT Nonrheumatic aortic valve stenosis documented in this encounter Results * CT Angio Abdomen Pelvis (08/15/2024 9:20 AM EDT) Anatomical Region Laterality Modality Abdomen, Pelvis Computed Tomogra phy Impressions 08/15/2024 3:44 PM EDT TAVR measurements as detailed above. Atherosclerotic disease of the aortoiliac arteries. Bilateral common iliac and right external iliac artery stents. Focal stenosis of the proximal right common iliac artery due to calcified plaque external to the stent. Please see 3-D images for measurements. Right upper lobe lung nodular opacity with evidence of peripheral volume loss and scarring. Enlarged right hilar lymph node. These are concerning for neoplasm with distal obstruction. Recommend tissue sampling and/or PET scan. Atherosclerotic calcifications in the partially imaged, carotid arteries. Recommend further evaluation with dedicated carotid duplex and CTA of the neck. Postsurgical changes in the lumbar spine status post laminectomy and fusion. Left adrenal gland nodule. Attention to this with follow-up abdominal CT imaging is recommended. Coronary artery disease. CRITICAL RESULT: No. COMMUNICATION: Per this written report. By electronically signing this report, I, the attending physician, attest that I have personally reviewed the images/data for the above examination(s) and agree with the final edited report. Drafted by KATERIN Bliss on 08/15/2024 9:45 AM Final report signed by Rosales Selby MD on 08/15/2024 3:44 PM Narrative 08/15/2024 3:44 PM EDT CLINICAL INDICATION: Aortic stenosis; Preoperative planning for potential transcatheter aortic valve replacement (TAVR) procedure. COMPARISON: CT chest July 04, 2019 Chest x-ray July 17, 2019 TECHNIQUE: ECG synchronized CT of the aortic root, followed immediately by CT angiography of the thorax, abdominal and pelvic aorta, extending from the root of the neck to the inferior margins of the lesser trochanters of the femurs, was performed. Axial images were reconstructed from the source data at 0.5 mm slice thickness with a 0.25 mm reconstruction interval. Multiplanar, curved planar, and 3D images were rendered using advanced processing software and reviewed to further define anatomy and possible pathology. A total of 150 mL of Omnipaque 350 intravenous contrast media was utilized in these examinations. TOTAL DLP (Dose-Length Product): 2534.97 mGy.cm . Please note: The reported value represents the total of one or more individual components during the CT acquisition on this date and at this time, and as such, the same value may appear in more than one CT report depending on the interpreting/reporting physicians. FINDINGS: Severe aortic valve calcifications. Quantification of Aortic Valve Calcium Score: 1574 Volume: 1359 Aortic Root Measurements 3-Cusp view: TELUGU 16 degrees; SPECIALIST PHYSICIAN 7 degrees Annulus area: 4.48 cm Annulus maximum diameter: 27 mm Annulus minimum diameter: 21 mm Annulus area based average diameter: 24 mm Annulus perimeter: 77 mm Sinus: L 31 mm, R 30 mm, N 33 mm Sinotubular junction: 29 mm Mid ascending aorta: 30 mm Annulus to sinotubular junction distance: 21 mm Left coronary height: 11 mm Right coronary height: 14 mm Abdominal aorta and iliofemoral arteries: Mixed atherosclerotic plaques in proximal abdominal Aorta. Mild atherosclerotic calcifications at the origin of celiac trunk and superior mesenteric artery. Diffuse calcification of splenic artery. Atherosclerosis and stenosis of infrarenal abdominal aorta with patent bilateral common iliac stents which span from the distal descending thoracic aorta to the. The distal right and proximal left common iliac arteries. An additional patent stent in place in the right external iliac artery. Mild atherosclerotic calcifications of iliac arteries. Stent in right external iliac artery with patent lumen. Stent in proximal partially imaged left superficial femoral artery with patent lumen. Partially imaged deep profundus arteries as well as the proximal right superficial femoral arteries are patent. Mixed calcified/noncalcified plaque noted within the proximal right superficial femoral artery causing mild stenosis. Right Iliofemoral Arteries: Common iliac artery: Minimum luminal diameter: 3 mm Calcification: Moderate with stent in place. Tortuosity: Mild External iliac artery: Minimum luminal diameter: 4 mm Calcification: Moderate with stent in place. Tortuosity: Mild Common femoral artery: Minimum luminal diameter: 4 mm Calcification: Moderate Left Iliofemoral Arteries: Common iliac artery: Minimum luminal diameter: 4 mm Calcification: Moderate with stent in place. Tortuosity: Mild External iliac artery: Minimum luminal diameter: 5 mm Calcification: Moderate Tortuosity: Mild Common femoral artery: Minimum luminal diameter: 4 mm Calcification: Moderate Ancillary Findings: Atherosclerosis in the bilateral common carotid arteries causing stenosis, right worse than left (series 10, image 9 and 12). Mild cardiomegaly. Severe coronary artery calcifications.LAD stent noted. Direct arch origin of left vertebral artery. Mild atherosclerotic calcifications of other proximal aortic arch branches. No mediastinal lymphadenopathy. Right hilar lymph node measuring 13 mm (series 11, image 344). No pleural or pericardial effusion. Central airways are patent. Right upper lobe opacity and solid density area with thickness up to 23 mm extending from the hilum to the pleural surface, with significant progression compared to prior remote CT study (series 11, image 308); likely due to partly scarring and partly consolidation with focal bronchiectasis. Bilateral clustered micronodules, likely due to aspiration or infection. Mild centrilobular emphysema. Left adrenal nodule measuring 15 mm (series 11, image 649). No focal liver lesion. Pancreas, spleen and both kidneys are unremarkable. No hydronephrosis.No retroperitoneal, mesenteric or pelvic lymphadenopathy. Diverticulosis of sigmoid colon. No bowel obstruction. No free fluid in the abdomen and pelvis. Severe degenerative changes spine. Cervical fixation plate in place. Lumbar and sacral fixation plate in place with laminectomy changes at L3, L4, L5 vertebrae. Procedure Note Rosales Selby MD - 08/15/2024 CLINICAL INDICATION: Aortic stenosis; Preoperative planning for potential transcatheter aorticvalve replacement (TAVR) procedure. COMPARISON: CT chest July 04, 2019 Chest x-ray July 17, 2019 TECHNIQUE: ECG synchronized CT of the aortic root, followed immediately by CTangiography of the thorax, abdominal and pelvic aorta, extending from theroot of the neck to the inferior margins of the lesser trochanters of thefemurs, was performed. Axial images were reconstructed from the sourcedata at 0.5 mm slice thickness with a 0.25 mm reconstruction interval.Multiplanar, curved planar, and 3D images were rendered using advancedprocessing software and reviewed to further define anatomy and possiblepathology. A total of 150 mL of Omnipaque 350 intravenous contrast mediawas utilized in these examinations. TOTAL DLP (Dose-Length Product): 2534.97 mGy.cm . Please note: Thereported value represents the total of one or more individual componentsduring the CT acquisition on this date and at this time, and as such, thesame value may appear in more than one CT report depending on theinterpreting/reporting physicians. FINDINGS: Severe aortic valve calcifications. Quantification of Aortic Valve Calcium Score: 1574 Volume: 1359 Aortic Root Measurements 3-Cusp view:TELUGU 16 degrees; SPECIALIST PHYSICIAN 7 degrees Annulus area: 4.48 cm Annulus maximum diameter: 27 mm Annulus minimum diameter: 21 mm Annulus area based average diameter: 24 mm Annulus perimeter: 77 mm Sinus: L 31 mm, R 30 mm, N 33 mm Sinotubular junction: 29 mm Mid ascending aorta: 30 mm Annulus to sinotubular junction distance: 21 mm Left coronary height: 11 mm Right coronary height: 14 mm Abdominal aorta and iliofemoral arteries: Mixed atherosclerotic plaques in proximal abdominal Aorta. Mildatherosclerotic calcifications at the origin of celiac trunk and superiormesenteric artery. Diffuse calcification of splenic artery. Atherosclerosis and stenosis of infrarenal abdominal aorta with patentbilateral common iliac stents which span from the distal descendingthoracic aorta to the. The distal right and proximal left common iliacarteries. An additional patent stent in place in the right external iliacartery. Mild atherosclerotic calcifications of iliac arteries. Stent inright external iliac artery with patent lumen. Stent in proximal partiallyimaged left superficial femoral artery with patent lumen. Partially imageddeep profundus arteries as well as the proximal right superficial femoralarteries are patent. Mixed calcified/noncalcified plaque noted within theproximal right superficial femoral artery causing mild stenosis. Right Iliofemoral Arteries: Common iliac artery: Minimum luminal diameter: 3 mm Calcification: Moderate with stent in place. Tortuosity: Mild External iliac artery: Minimum luminal diameter: 4 mm Calcification: Moderate with stent in place. Tortuosity: Mild Common femoral artery: Minimum luminal diameter: 4 mm Calcification: Moderate Left Iliofemoral Arteries: Common iliac artery: Minimum luminal diameter: 4 mm Calcification: Moderate with stent in place. Tortuosity: Mild External iliac artery: Minimum luminal diameter: 5 mm Calcification: Moderate Tortuosity: Mild Common femoral artery: Minimum luminal diameter: 4 mm Calcification: Moderate Ancillary Findings: Atherosclerosis in the bilateral common carotid arteries causing stenosis,right worse than left (series 10, image 9 and 12). Mild cardiomegaly. Severe coronary artery calcifications.LAD stent noted.Direct arch origin of left vertebral artery. Mild atheroscleroticcalcifications of other proximal aortic arch branches. No mediastinal lymphadenopathy. Right hilar lymph node measuring 13 mm(series 11, image 344). No pleural or pericardial effusion. Central airways are patent. Rightupper lobe opacity and solid density area with thickness up to 23 mmextending from the hilum to the pleural surface, with significantprogression compared to prior remote CT study (series 11, image 308);likely due to partly scarring and partly consolidation with focalbronchiectasis. Bilateral clustered micronodules, likely due to aspirationor infection. Mild centrilobular emphysema. Left adrenal nodule measuring 15 mm (series 11, image 649). No focal liverlesion. Pancreas, spleen and both kidneys are unremarkable. Nohydronephrosis.No retroperitoneal, mesenteric or pelvic lymphadenopathy.Diverticulosis of sigmoid colon. No bowel obstruction. No free fluid inthe abdomen and pelvis. Severe degenerative changes spine. Cervical fixation plate in place.Lumbar and sacral fixation plate in place with laminectomy changes at L3,L4, L5 vertebrae. IMPRESSION: TAVR measurements as detailed above. Atherosclerotic disease of the aortoiliac arteries. Bilateral common iliacand right external iliac artery stents. Focal stenosis of the proximalright common iliac artery due to calcified plaque external to the stent.Please see 3-D images for measurements. Right upper lobe lung nodular opacity with evidence of peripheral volumeloss and scarring. Enlarged right hilar lymph node. These are concerningfor neoplasm with distal obstruction. Recommend tissue sampling and/or PETscan. Atherosclerotic calcifications in the partially imaged, carotid arteries.Recommend further evaluation with dedicated carotid duplex and CTA of theneck. Postsurgical changes in the lumbar spine status post laminectomy andfusion. Left adrenal gland nodule. Attention to this with follow-up abdominal CTimaging is recommended. Coronary artery disease. CRITICAL RESULT: No. COMMUNICATION: Per this written report. By electronically signing this report, I, the attending physician, attestthat I have personally reviewed the images/data for the aboveexamination(s) and agree with the final edited report. Drafted by KATERIN Bliss on 08/15/2024 9:45 AM Final report signed by Rosales Selby MD on 08/15/2024 3:44 PM us Miguel Lamb MD IMG CT PROCEDURES Final Result * CT Angio Chest (08/15/2024 9:20 AM EDT) Anatomical Region Laterality Modality Chest Computed Tomogra phy Impressions 08/15/2024 3:44 PM EDT TAVR measurements as detailed above. Atherosclerotic disease of the aortoiliac arteries. Bilateral common iliac and right external iliac artery stents. Focal stenosis of the proximal right common iliac artery due to calcified plaque external to the stent. Please see 3-D images for measurements. Right upper lobe lung nodular opacity with evidence of peripheral volume loss and scarring. Enlarged right hilar lymph node. These are concerning for neoplasm with distal obstruction. Recommend tissue sampling and/or PET scan. Atherosclerotic calcifications in the partially imaged, carotid arteries. Recommend further evaluation with dedicated carotid duplex and CTA of the neck. Postsurgical changes in the lumbar spine status post laminectomy and fusion. Left adrenal gland nodule. Attention to this with follow-up abdominal CT imaging is recommended. Coronary artery disease. CRITICAL RESULT: No. COMMUNICATION: Per this written report. By electronically signing this report, I, the attending physician, attest that I have personally reviewed the images/data for the above examination(s) and agree with the final edited report. Drafted by KATERIN Bliss on 08/15/2024 9:45 AM Final report signed by Rosales Selby MD on 08/15/2024 3:44 PM Narrative 08/15/2024 3:44 PM EDT CLINICAL INDICATION: Aortic stenosis; Preoperative planning for potential transcatheter aortic valve replacement (TAVR) procedure. COMPARISON: CT chest July 04, 2019 Chest x-ray July 17, 2019 TECHNIQUE: ECG synchronized CT of the aortic root, followed immediately by CT angiography of the thorax, abdominal and pelvic aorta, extending from the root of the neck to the inferior margins of the lesser trochanters of the femurs, was performed. Axial images were reconstructed from the source data at 0.5 mm slice thickness with a 0.25 mm reconstruction interval. Multiplanar, curved planar, and 3D images were rendered using advanced processing software and reviewed to further define anatomy and possible pathology. A total of 150 mL of Omnipaque 350 intravenous contrast media was utilized in these examinations. TOTAL DLP (Dose-Length Product): 2534.97 mGy.cm . Please note: The reported value represents the total of one or more individual components during the CT acquisition on this date and at this time, and as such, the same value may appear in more than one CT report depending on the interpreting/reporting physicians. FINDINGS: Severe aortic valve calcifications. Quantification of Aortic Valve Calcium Score: 1574 Volume: 1359 Aortic Root Measurements 3-Cusp view: TELUGU 16 degrees; SPECIALIST PHYSICIAN 7 degrees Annulus area: 4.48 cm Annulus maximum diameter: 27 mm Annulus minimum diameter: 21 mm Annulus area based average diameter: 24 mm Annulus perimeter: 77 mm Sinus: L 31 mm, R 30 mm, N 33 mm Sinotubular junction: 29 mm Mid ascending aorta: 30 mm Annulus to sinotubular junction distance: 21 mm Left coronary height: 11 mm Right coronary height: 14 mm Abdominal aorta and iliofemoral arteries: Mixed atherosclerotic plaques in proximal abdominal Aorta. Mild atherosclerotic calcifications at the origin of celiac trunk and superior mesenteric artery. Diffuse calcification of splenic artery. Atherosclerosis and stenosis of infrarenal abdominal aorta with patent bilateral common iliac stents which span from the distal descending thoracic aorta to the. The distal right and proximal left common iliac arteries. An additional patent stent in place in the right external iliac artery. Mild atherosclerotic calcifications of iliac arteries. Stent in right external iliac artery with patent lumen. Stent in proximal partially imaged left superficial femoral artery with patent lumen. Partially imaged deep profundus arteries as well as the proximal right superficial femoral arteries are patent. Mixed calcified/noncalcified plaque noted within the proximal right superficial femoral artery causing mild stenosis. Right Iliofemoral Arteries: Common iliac artery: Minimum luminal diameter: 3 mm Calcification: Moderate with stent in place. Tortuosity: Mild External iliac artery: Minimum luminal diameter: 4 mm Calcification: Moderate with stent in place. Tortuosity: Mild Common femoral artery: Minimum luminal diameter: 4 mm Calcification: Moderate Left Iliofemoral Arteries: Common iliac artery: Minimum luminal diameter: 4 mm Calcification: Moderate with stent in place. Tortuosity: Mild External iliac artery: Minimum luminal diameter: 5 mm Calcification: Moderate Tortuosity: Mild Common femoral artery: Minimum luminal diameter: 4 mm Calcification: Moderate Ancillary Findings: Atherosclerosis in the bilateral common carotid arteries causing stenosis, right worse than left (series 10, image 9 and 12). Mild cardiomegaly. Severe coronary artery calcifications.LAD stent noted. Direct arch origin of left vertebral artery. Mild atherosclerotic calcifications of other proximal aortic arch branches. No mediastinal lymphadenopathy. Right hilar lymph node measuring 13 mm (series 11, image 344). No pleural or pericardial effusion. Central airways are patent. Right upper lobe opacity and solid density area with thickness up to 23 mm extending from the hilum to the pleural surface, with significant progression compared to prior remote CT study (series 11, image 308); likely due to partly scarring and partly consolidation with focal bronchiectasis. Bilateral clustered micronodules, likely due to aspiration or infection. Mild centrilobular emphysema. Left adrenal nodule measuring 15 mm (series 11, image 649). No focal liver lesion. Pancreas, spleen and both kidneys are unremarkable. No hydronephrosis.No retroperitoneal, mesenteric or pelvic lymphadenopathy. Diverticulosis of sigmoid colon. No bowel obstruction. No free fluid in the abdomen and pelvis. Severe degenerative changes spine. Cervical fixation plate in place. Lumbar and sacral fixation plate in place with laminectomy changes at L3, L4, L5 vertebrae. Procedure Note Rosales Selby MD - 08/15/2024 CLINICAL INDICATION: Aortic stenosis; Preoperative planning for potential transcatheter aorticvalve replacement (TAVR) procedure. COMPARISON: CT chest July 04, 2019 Chest x-ray July 17, 2019 TECHNIQUE: ECG synchronized CT of the aortic root, followed immediately by CTangiography of the thorax, abdominal and pelvic aorta, extending from theroot of the neck to the inferior margins of the lesser trochanters of thefemurs, was performed. Axial images were reconstructed from the sourcedata at 0.5 mm slice thickness with a 0.25 mm reconstruction interval.Multiplanar, curved planar, and 3D images were rendered using advancedprocessing software and reviewed to further define anatomy and possiblepathology. A total of 150 mL of Omnipaque 350 intravenous contrast mediawas utilized in these examinations. TOTAL DLP (Dose-Length Product): 2534.97 mGy.cm . Please note: Thereported value represents the total of one or more individual componentsduring the CT acquisition on this date and at this time, and as such, thesame value may appear in more than one CT report depending on theinterpreting/reporting physicians. FINDINGS: Severe aortic valve calcifications. Quantification of Aortic Valve Calcium Score: 1574 Volume: 1359 Aortic Root Measurements 3-Cusp view:TELUGU 16 degrees; SPECIALIST PHYSICIAN 7 degrees Annulus area: 4.48 cm Annulus maximum diameter: 27 mm Annulus minimum diameter: 21 mm Annulus area based average diameter: 24 mm Annulus perimeter: 77 mm Sinus: L 31 mm, R 30 mm, N 33 mm Sinotubular junction: 29 mm Mid ascending aorta: 30 mm Annulus to sinotubular junction distance: 21 mm Left coronary height: 11 mm Right coronary height: 14 mm Abdominal aorta and iliofemoral arteries: Mixed atherosclerotic plaques in proximal abdominal Aorta. Mildatherosclerotic calcifications at the origin of celiac trunk and superiormesenteric artery. Diffuse calcification of splenic artery. Atherosclerosis and stenosis of infrarenal abdominal aorta with patentbilateral common iliac stents which span from the distal descendingthoracic aorta to the. The distal right and proximal left common iliacarteries. An additional patent stent in place in the right external iliacartery. Mild atherosclerotic calcifications of iliac arteries. Stent inright external iliac artery with patent lumen. Stent in proximal partiallyimaged left superficial femoral artery with patent lumen. Partially imageddeep profundus arteries as well as the proximal right superficial femoralarteries are patent. Mixed calcified/noncalcified plaque noted within theproximal right superficial femoral artery causing mild stenosis. Right Iliofemoral Arteries: Common iliac artery: Minimum luminal diameter: 3 mm Calcification: Moderate with stent in place. Tortuosity: Mild External iliac artery: Minimum luminal diameter: 4 mm Calcification: Moderate with stent in place. Tortuosity: Mild Common femoral artery: Minimum luminal diameter: 4 mm Calcification: Moderate Left Iliofemoral Arteries: Common iliac artery: Minimum luminal diameter: 4 mm Calcification: Moderate with stent in place. Tortuosity: Mild External iliac artery: Minimum luminal diameter: 5 mm Calcification: Moderate Tortuosity: Mild Common femoral artery: Minimum luminal diameter: 4 mm Calcification: Moderate Ancillary Findings: Atherosclerosis in the bilateral common carotid arteries causing stenosis,right worse than left (series 10, image 9 and 12). Mild cardiomegaly. Severe coronary artery calcifications.LAD stent noted.Direct arch origin of left vertebral artery. Mild atheroscleroticcalcifications of other proximal aortic arch branches. No mediastinal lymphadenopathy. Right hilar lymph node measuring 13 mm(series 11, image 344). No pleural or pericardial effusion. Central airways are patent. Rightupper lobe opacity and solid density area with thickness up to 23 mmextending from the hilum to the pleural surface, with significantprogression compared to prior remote CT study (series 11, image 308);likely due to partly scarring and partly consolidation with focalbronchiectasis. Bilateral clustered micronodules, likely due to aspirationor infection. Mild centrilobular emphysema. Left adrenal nodule measuring 15 mm (series 11, image 649). No focal liverlesion. Pancreas, spleen and both kidneys are unremarkable. Nohydronephrosis.No retroperitoneal, mesenteric or pelvic lymphadenopathy.Diverticulosis of sigmoid colon. No bowel obstruction. No free fluid inthe abdomen and pelvis. Severe degenerative changes spine. Cervical fixation plate in place.Lumbar and sacral fixation plate in place with laminectomy changes at L3,L4, L5 vertebrae. IMPRESSION: TAVR measurements as detailed above. Atherosclerotic disease of the aortoiliac arteries. Bilateral common iliacand right external iliac artery stents. Focal stenosis of the proximalright common iliac artery due to calcified plaque external to the stent.Please see 3-D images for measurements. Right upper lobe lung nodular opacity with evidence of peripheral volumeloss and scarring. Enlarged right hilar lymph node. These are concerningfor neoplasm with distal obstruction. Recommend tissue sampling and/or PETscan. Atherosclerotic calcifications in the partially imaged, carotid arteries.Recommend further evaluation with dedicated carotid duplex and CTA of theneck. Postsurgical changes in the lumbar spine status post laminectomy andfusion. Left adrenal gland nodule. Attention to this with follow-up abdominal CTimaging is recommended. Coronary artery disease. CRITICAL RESULT: No. COMMUNICATION: Per this written report. By electronically signing this report, I, the attending physician, attestthat I have personally reviewed the images/data for the aboveexamination(s) and agree with the final edited report. Drafted by KATERIN Bliss on 08/15/2024 9:45 AM Final report signed by Rosales Selby MD on 08/15/2024 3:44 PM Miguel Lamb MD IMG CT PROCEDURES Final Result documented in this encounter Visit Diagnoses Diagnosis Nonrheumatic aortic valve stenosis documented in this encounter Administered Medications Inactive Administered Medications - up to 3 most recent administrations Medication Order MAR Action Action Date Dose Rate Site iohexol (OMNIPaque) 350 MG/ML injection 150 mL 150 mL, Intravenous, Once in imaging, 1 dose, Starting on Tue08/15/24 at 0849, Until Tue08/15/24 at 0911, Routine, Imaging Protocol Orders Given 08/15/2024 9:11 AM EDT 150 mL documented in this encounter Additional Health Concerns Assessment Noted Time PHQ-9 Depression Total Score: 0 07/21/19 11:35 AM EDT A fall risk assessment has been complete d for the patient 08/15/2024 10:46 AM EDT A Body Mass Index follow-up plan has been documented for the patient 08/15/2024 11:19 AM EDT documented as of this encounter Care Teams Press Box Custodian Relationship Specialty Start Date End Date Mustapha James MD [address] [place] [address] PCP - General 09/05/20 documented as of this encounter
--- OUTSIDE RECORDS SUMMARY | 2024-08-15 10:45 | XMS_ITS | Encounter Summary ---
Author Organization [facility] Address [address] [place] [address] Care Team Providers Care Payment Analyst Name Role Phone Mustapha James MD Primary Care Provider [phone] Miguel Lamb MD Unavailable [phone] Reason for Visit * Consultation (Routine) - Closed Specialty Diagnoses / Procedures Referred By Contac t Referred To Contact Cardiothoracic Surgery Diagnoses Coronary artery disease involving pamunkey coronary artery of pamunkey heart with angina pectoris (CMS/HCC) Nonrheumatic aortic valve stenosis Leona Horner W, AIR TRAFFIC SYSTEMS TECHNICIAN [address] [place] [address] Phone: tel: fax: [facility] [address], [address] [address] Phone: tel: fax: Referral ID Status Reason Start Date Expiration Date V isits Requested Visits Authorized [id number] Closed Specialty Services Required 07/20/2024 01/19/2026 1 1 Encounter Details Date Type Department Care Team (Late st Contact Info) Description 08/15/2024 10:45 AM EDT Consult [facility] [address], [address] [place] [id number] Carrington Denny MD [address] [address] Peripheral vascular disease (CMS/HCC) (Primary Dx); Nonrheumatic aortic valve stenosis; Coronary artery disease involving pamunkey coronary artery of pamunkey heart with angina pectoris (CMS/HCC); Tobacco abuse; Type 2 diabetes mellitus without complication, unspecified whether terminal operator insulin use Social History Tobacco Use Types Packs/Day Years [...] on file documented as of this encounter Last Filed Vital Signs Vital Sign Reading Time Taken Comments Blood Pressure 145/75 08/15/2024 10:46 AM EDT Pulse 88 08/15/2024 10:37 AM EDT Temperature - - Respiratory Rate - - Oxygen Saturation 97% 08/15/2024 10:37 AM EDT Inhaled Oxygen Concentration - - Weight 86.6 kg (191 lb) 08/15/2024 10:37 AM EDT Height 160 cm (5' 3 ) 08/15/2024 10:37 AM EDT Body Mass Index 33.83 08/15/2024 10:37 AM EDT documented in this encounter Miscellaneous Notes * Progress Notes - Mendoza Anglin PA - 08/15/2024 10:45 AM EDT Reason for visit / Chief Complaint: Angina History of present illness: Jodi Byrne is a 69 y.o. female referred to us in consultation by Dr. Lamb in regards to CAD/. Is a very pleasant 69-year-old female we are seeing in the consultation at the request of Dr. Lamb for multivessel coronary artery disease in the setting of aortic valve stenosis with an aortic valve area 0.8 sq cm a mean gradient of 22 mmHg with associated mild mitral valve regurgitation. She reports stable angina that occurs generally in the evening when she has little bit of exertion.It starts as a sharp stabbing pain in the center of her chest and radiates to her neck and left arm. She has previously undergone percutaneous coronary intervention to her left main coronary in 2019.She has had progression of her underlying disease and now has significant aortic valve stenosis as mentioned above. She does not describe any orthopnea or PND but does endorse significant dyspnea with exertion and stable angina as described above. She does not report any syncope or presyncope does not have any uncontrolled headaches or palpitations. She has also had a diagnosis of renal artery stenosis on the right having undergone recent percutaneous stenting. We have discussed her case with Dr. Lamb as we do not feel a she is a good surgical candidate and would recommend high-risk PCI addressed 1st followed by transcatheter aortic valve replacement procedure. Her chronic comorbid conditions that impact our treatment planning include: Peripheral Vascular Disease (inclusive of atherosclerotic disease of the lower extremities) NYHA Classification: Class III: Marked symptoms with less than ordinary activity. Smoking Cessation: Longstanding history of tobacco abuse. She is currently wearing a transdermal nicotine patch. We discussed smoking cessation strategies Active Problems: Patient Active Problem List Diagnosis Date Noted BMI 33.0-33.9,adult 08/15/2024 Severe obesity (BMI 35.0-39.9) with comorbidity ([facility] 07/20/2024 Nonrheumatic aortic valve stenosis 07/18/2024 Fatigue 07/18/2024 Dizziness 07/18/2024 Chest pain 07/18/2024 HFrEF (heart failure with reduced ejection fraction) ([facility]) 07/24/2019 NSTEMI, initial episode of care ([facility]) 07/24/2019 S/P drug eluting coronary stent placement 07/24/2019 Coronary artery disease 07/17/2019 Medical History: Past Medical History: Diagnosis Date COPD (chronic obstructive pulmonary disease) ([facility]) HLD (hyperlipidemia) HTN (hypertension) Lung cancer ([facility]) Seasonal allergies Surgical History: Surgical History[1] Social History: Tobacco: Tobacco Use: High Risk (08/15/2024) Patient History Smoking Tobacco Use: Some Days Smokeless Tobacco Use: Never Passive Exposure: Not on file Alcohol: Alcohol Use: Not on file Illicit drug use: Social History Substance and Sexual Activity Drug Use Never Family History: family history includes No Known Problems in her father and mother. Allergies: Allergies[2] Medications: Prior to Admission medications Medication Sig Start Date End Date Taking? Authorizing Provider aspirin 81 MG EC tablet Take 1 tablet by mouth daily. Yes Provider, Regina, clopidogrel (Plavix) 75 MG tablet Take 1 tablet by mouth in the morning. Yes Provider, Historical, MD clopidogrel (Plavix) 75 MG tablet Take 1 tablet by mouth in the morning. Yes Regina Henley MD diazePAM (Valium) 5 MG tablet Take 1 tablet by mouth in the morning and 1 tablet before bedtime. 07/24/19 Yes Regina Henley MD diphenhydrAMINE (Benadryl) 50 MG tablet Take 1 tablet [address] scan 07/20/24 Yes Miguel Lamb MD Evolocumab (Repatha) 140 MG/ML solution prefilled syringe Inject under the skin. Yes Regina Henley MD famotidine (Pepcid) 20 MG tablet Take 1 tablet by mouth in the morning and 1 tablet in the evening.Yes Regina Henley MD fluticasone (Flonase) 50 MCG/ACT nasal spray Administer 1 spray into each nostril daily. 07/24/19 Yes Regina Henley MD Pmikozyvxff-Mvkrtxoou-Dwdmhk (Trelegy Ellipta) 100-62.5-25 MCG/ACT aerosol powder Inhale. Yes Regina Henley MD furosemide (Lasix) 20 MG tablet Take 1 tablet by mouth daily. 07/24/19 Yes Regina eHnley MD furosemide (Lasix) 20 MG tablet Take 1 tablet by mouth. Yes Regina Henley MD HYDROcodone-acetaminophen (Hycet) 7.5-325 MG/15ML solution Take by mouth every 6 hours as needed for severe pain. Yes Regina Henley MD HYDROcodone-acetaminophen ([place]) 7.5-325 MG tablet Take 1 tablet by mouth every 8 hours as needed.07/24/19 Yes Regina Henley MD lansoprazole (Prevacid) [address] capsule Take 1 capsule by mouth daily. 07/24/19 Yes Regina Henley MD levothyroxine (Synthroid, Levoxyl) 50 MCG tablet Take 1 tablet by mouth daily before breakfast. Regina Knowles MD lisinopril 20 MG tablet Take 0.5 tablets by mouth daily. 07/24/19 Yes Regina Henley MD metoprolol succinate XL (Toprol-XL) 50 MG 24 hr tablet Take 1 tablet by mouth daily. Do not crush or chew. Yes Regina Henley MD montelukast (Singulair) 10 MG tablet Take 1 tablet by mouth nightly. Yes Regina Henley MD montelukast (Singulair) 10 MG tablet Take 1 tablet by mouth nightly. Yes Regina Henley MD Multiple Vitamins-Iron tablet Take 1 tablet by mouth daily. 07/24/19 Yes Regina Henley MD predniSONE (Deltasone) 50 MG tablet Take 13 hours, 7 hours and [address] scan 07/20/24 Yes Miguel Lamb MD VITAMIN D, CHOLECALCIFEROL, PO Take by mouth. Yes Regina Henley MD nitroglycerin (Nitrostat) 0.[address] 1 tablet under the tongue every 5 (five) minutes as needed for chest pain. 08/15/24 08/15/25 Mendoza Anglin PA Physical exam: Visit Vitals BP (!) 145/75 Pulse 88 SpO2 97% Physical Exam Constitutional: Appearance: Normal appearance. HENT: Head: Normocephalic and atraumatic. Nose: Nose normal. Mouth/Throat: Mouth: Mucous membranes are moist. Eyes: Pupils: Pupils are equal, round, and reactive to light. Cardiovascular: Rate and Rhythm: Normal rate and regular rhythm. Pulses: Normal pulses. Heart sounds: Normal heart sounds. Pulmonary: Effort: Pulmonary effort is normal. Breath sounds: Normal breath sounds. Musculoskeletal: Cervical back: Normal range of motion and neck supple. Skin: General: Skin is warm and dry. Capillary Refill: Capillary refill takes less than 2 seconds. Neurological: General: No focal deficit present. Mental Status: She is alert and oriented to person, place, and time. Imaging: No echocardiogram results found for the past 12 months Cardiac Cath Results Coronary angiogram performed on 07/16/[address] Chavez demonstrates the following: Left main coronary artery has an ostial calcified eccentric 90% stenosis in the distal eccentric 40% stenosis. Lad has a stent in those proximal segment which is widely patent with minimal InStent restenosis in the 70-80% stenosis just distal to the stent in the pamunkey LAD. The remaining LAD is widely patent. The circumflex artery is nondominant with diffuse calcification has been no stenosis greater than 30%. The right coronary artery is dominant and has an ostial calcified 90% stenosis followed by 70-80% stenosis. Right renal artery has an ostial calcified 90% stenosis. Patient underwent successful stenting of the right renal artery with a bare metal stent Impression: Multivessel coronary artery disease having undergone previous PCI to left main in 2019. 2. Aortic valve stenosis 3. Hypertension 4. Right renal artery stent Plan: At this interval we have offered her percutaneous coronary intervention and TAVR for her aortic valve stenosis. We have discussed with Dr. Lamb who is going to bring the patient for coronary stenting and then will arrange for TAVR to follow after she has recovered from her coronary stenting. [1] Past Surgical History: Procedure Laterality Date BACK SURGERY CARDIAC STENT HYSTERECTOMY KNEE SURGERY [2] Allergies Allergen Reactions Iodinated Contrast Media Hives, Itching and Swelling Difficulty swallowing. Iodine Hives, Itching and Swelling Difficulty swallowing. Atorvastatin Unknown - Patient states they do not know rxn details Crestor [Rosuvastatin] Unknown - Patient states they do not know rxn details Demerol Hcl [Meperidine] Unknown - Patient states they do not know rxn details Pseudoephedrine Hcl Other - please document in the comment field TACHYCARDIA Statins Unknown - Patient states they do not know rxn details Cosigned by Carrington Denny MD at 08/16/2024 10:51 AM EDT Associated attestation - Carrington Denny MD - 08/16/2024 10:51 AM EDT Seen and examined and records reviewed and discussed with , I agree with hisnote and plan. The patient frail and we will be a poor surgical candidate. I discussed her case with her referring tractor operator laser leveling and he agrees. The plan is to proceed with PCI for coronary artery disease and we will discuss her in the valve conference and if her aortic stenosis meets criteria for severity then wethelmall consider her for transcatheter aortic valve replaced. documented in this encounter Plan of Treatment Upcoming Encounters Date Type Department Care Team (Late st Contact Info) Description 01/04/2025 2:00 PM EDT Appointment Cardiac Imaging [address] [place] [address] 01/04/2025 3:30 PM EDT Office Visit [facility] [place] [address] [place] [address] Miguel Lamb MD [address] [place] [id number] documented as of this encounter Visit Diagnoses Diagnosis Peripheral vascular disease ([facility]/HCC)- Primary Unspecified peripheral vascular disease Nonrheumatic aortic valve stenosis Coronary artery disease involving pamunkey coronary artery of pamunkey heart with angina pectoris ([facility]/HCC) Tobacco abuse Tobacco use disorder Type 2 diabetes mellitus without complication, unspecified whether terminal operator insulin use documented in this encounter Additional Health Concerns Assessment Noted Time PHQ-9 Depression Total Score: 0 07/21/19 11:35 AM EDT A fall risk assessment has been complete d for the patient 08/15/2024 10:46 AM EDT A Body Mass Index follow-up plan has been documented for the patient 08/15/2024 11:19 AM EDT documented as of this encounter Care Teams Payment Analyst Relationship Specialty Start Date End Date Mustapha James MD [address] [place] [id number] PCP - General 09/05/20 Miguel Lamb MD [address] [place] [address] Referring Physician Interventional Cardiology 08/16/24 documented as of this encounter
--- OUTSIDE RECORDS SUMMARY | 2024-08-30 13:09 | XMS_ITS | Encounter Summary ---
Author Organization [facility] Address [address] [id number] Care Team Providers Care Automotive Porter Name Role Phone Mustapha James MD Primary Care Provider [phone] Miguel Lamb MD Unavailable [phone] Reason for Visit * Auth/Cert (Routine) Specialty Diagnoses / Procedures Referred By Contac t Referred To Contact Diagnoses Nonrheumatic aortic valve stenosis Nonrheumatic aortic valve stenosis [I35.0] Procedures AK PRQ TRLUML CORONARY STENT W/ANGIO ONE ART/BRNCH Percutaneous coronary intervention Miguel Lamb MD [address] [place] [address] Phone: tel: fax: [facility] [address] [place] [address] Phone: tel: Referral ID Status Reason Start Date Expiration Date Visits Re quested Visits Authorized [id number] 1 1 Encounter Details Date Type Department Care Team (Latest Contact Info) Description 08/30/2024 1:09 PM EDT - 08/31/2024 1:48 PM EDT Hospital Encounter PAV A Inpatient [address] [place] [address] Miguel Lamb MD [address] [place] [address] S/P coronary artery stent placement [...] signs of infection or problems. Call the [facility] at [phone] if your incision is red, warm or [...] time do not work, call the [facility] at They will deliver a Rolator walker [...] tablet by mouth daily. 07/24/2019 HYDROcodone-acet aminophen (Dunellen) 7.5-325 MG tablet Take 1 tablet by [...] Note Jodi Byrne 69 y.o. female CSN: [id number] Admission: 08/30/2024 1:09 PM Primary Problem: Nonrheumatic aortic valve stenosis Anticipated Discharge Date: today Additional Comments: Rollator referral sent to [facility]. Will be delivered to patients home. Coco Gamez RN * Lianet Durand RN - 08/31/2024 12:22 PM EDT Images from the original note were not included. [id number] Clopidogrel Brand Name(s): Plavix??; also available generically [...] doctor or pharmacist will give you the tie binder's patient information sheet (Medication Guide) when you begin treatment with clopidogrel and each time you refill your prescription. Read the information carefully and ask your doctor or pharmacist if you have any questions. You can also visit the Food and Drug Administration (FDA) website (https://www.fda.gov/Drugs/DrugSafety/tyg812472.htm) or the tie binder's website to obtain the Medication Guide. Talk [...] and out of their sight and reach. https://www.[employer].org What should I do in case of OVERDOSE? In case of overdose, call the poison control helpline at . Information is also available online at https://www.poisonhelp.org/help. If the victim has collapsed, had a seizure, has trouble breathing, or can't be awakened, immediately call emergency services at [phone]. Symptoms of overdose may include the following: ?? unusual bruising or bleeding What OTHER INFORMATION should I know? Keep all appointments with your doctor. Do not let anyone else take your medication. Ask your pharmacist any questions you have about refilling your prescription. It is important for you to keep a written list of all of the prescription and nonprescription (oyev-odm-rwpahqu) medicines you are taking, as well as [...] or pharmacist about specific clinical use. The [place] [employer] represents that the information provided hereunder was formulated with a reasonable standard of care, and in conformity with professional standards in the field. The [place] [employer] makes no representations or warranties, express or implied, including, but not limited to, any implied warranty of merchantability and/or fitness for a particular purpose, with respect to such information and specifically disclaims all such warranties. Users are advised that decisions regarding drug therapy are complex medical decisions requiring the independent, informed decision of an appropriate health care consultant, and the information is provided for informational purposes only. The entire monograph for a drug should be reviewed for a thorough understanding of the drug's actions, uses and side effects. The [place] [employer] does not endorse or recommend the use of any drug.The information is not a substitute for medical care. AHFS?? Patient Medication Information?. ?? Copyright, 2023. The [place] [employer]??, [address], [address], [place], [place]. All Rights Reserved. Duplication for commercial use must be authorized by [facility]. Selected Revisions: October 13, 2023. AHFS?? Patient [...] - 08/31/2024 12:19 PM EDT Call the [facility] at [phone] if your incision is red, warm or [...] doctor before taking any other medicine, including rmxj-cok-shwdgdc medicines (for example aspirin), vitamins, herbals, or [...] from the original note were not included. [id number] Diphenhydramine Brand Name(s): Aler-Dryl??, Allergia-C?, Allermax?, Altaryl?, [...] be awakened, immediately call emergency services at [phone]. What OTHER INFORMATION should I know? Ask your pharmacist any questions you have about diphenhydramine. It is important for you to keep a written list of all of the prescription and nonprescription (dvnj-rfg-jnoiexx) medicines you are taking, as well as [...] or pharmacist about specific clinical use. The [place] [employer] represents that the information provided hereunder was formulated with a reasonable standard of care, and in conformity with professional standards in the field. The [place] [employer] makes no representations or warranties, express or implied, including, but not limited to, any implied warranty of merchantability and/or fitness for a particular purpose, with respect to such information and specifically disclaims all such warranties. Users are advised that decisions regarding drug therapy are complex medical decisions requiring the independent, informed decision of an appropriate health care consultant, and the information is provided for informational purposes only. The entire monograph for a drug should be reviewed for a thorough understanding of the drug's actions, uses and side effects. The [place] [employer] does not endorse or recommend the use of any drug.The information is not a substitute for medical care. AHFS?? Patient Medication Information?. ?? Copyright, 2023. The [employer] [employer]??, [address], [address], [place], [place]. All Rights Reserved. Duplication for commercial use must be authorized by [facility]. Selected Revisions: May 09, 2021. AHFS?? Patient Medication Information?. ?? Copyright, 2024 * Rominaligia [facility] - Lianet Chawla RN - 08/31/2024 11:49 AM EDT Images from the original note were not included. [id number] Discharge Instructions for Cardiac Catheterization Cardiac catheterization [...] pressure. Last Reviewed Date: 2024 00:00:00 ?? 9818-7251 [employer]. All rights reserved. This information is not intended as a substitute for professional medical care. Always follow your healthcare professional's instructions. * Trace MichelleLUCY - Lianet Chawla RN - 08/31/2024 11:49 AM EDT Images from the original note were not included. 37200 Having Cardiac Catheterization You may have had [...] health care team about all prescription medicines, pfnr-awt-tmbvblu medicines, vitamins, and supplements you take and [...] firmly. Last Reviewed Date: 2024 00:00:00 ?? 9166-1650 [employer]. All rights reserved. This information is not intended as a substitute for professional medical care. Always follow your healthcare professional's instructions. * Trace Pierre - Lianet Chawla RN - 08/31/2024 11:49 AM EDT Images from the original note were not included. 99879 Understanding Transcatheter Aortic Valve Replacement (TAVR) Transcatheter [...] program. Last Reviewed Date: 2024 00:00:00 ?? 1211-0625 [employer]. All rights reserved. This information is not intended as a substitute for professional medical care. Always follow your healthcare professional's instructions. * Trace [facility] - Lianet Chawla RN - 08/31/2024 11:49 AM EDT Images from the original note were not included. 00841 Heart Valve Problems: Aortic Stenosis Aortic stenosis [...] symptoms. Last Reviewed Date: 2023 00:00:00 ?? 6300-2254 [employer]. All rights reserved. This information is not [...] PCP name and Address: Mustapha James MD [address] [place] [id number] Chief Concern, Brief History of Present Illness, [...] stents to bilateral iliac arteries 12/2021 - [facility] 06/2424 ([place]): LM ostial calcified eccentric 90% stenosis in the distal eccentric 40% stenosis. Proximal LAD stent widely patent with minimal In- Stent restenosis in the 70-80% stenosis justdistal to the stent in the [place] LAD. The remaining LAD is widely patent. [...] right femoral with perclose (08/30/24, Dr. Lamb, [facility]) - Continue DAPT with ASA and plavix [...] metal stent #Aortic stenosis - TTE 05/2024 ([facility]) with EF 55%, low-flow, low-gradient - [...] - 1.1 mg/dL POCT eGFR 54 mL/min/1.73m*2 Tie Loader ID SagardannypatrickbertaCasie barraza Device ID [id number] [facility] Basic Metabolic Panel, Plasma Collection Time: 08/31/24 [...] HYDROcodone-acetaminophen 7.5-325 MG tablet Commonly known as: Dunellen Take 1 tablet by mouth every 8 [...] Ellipta 100-62.5-25 MCG/ACT aerosol powder Generic drug: Aztjctscnuz-Mjcjejzwj-Jvsman Inhale. VITAMIN D (CHOLECALCIFEROL) PO Take by mouth. Where to Get Your Medications These medications were sent to [facility] [address] [facility] [address] [facility] [address], [facility] [place] [address] clopidogrel 75 MG tablet diphenhydrAMINE 50 MG [...] signs of infection or problems. Call the [facility] at [phone] if your incision is red, warm or [...] time do not work, call the Cardiac [facility]er [facility] at They will deliver a Rolator walker to your house. Outpatient Follow-Up Staged PCI to RCA 09/18/24 Discharge Disposition/Condition Disposition: Home Condition: Stable (s/sx potential problems absent or manageable) I spent > 30min working on this discharge including performing physical examination, review of laboratory/imaging results with the patient, discussion of medication management, and preparation of discharge paperwork. Zuly Gaspar APRN [phone] Cosigned by Miguel Lamb MD at 08/31/2024 [...] stents to bilateral iliac arteries 12/2021 - [facility] 06/2424 ([place]): LM ostial calcified eccentric 90% stenosis in the distal eccentric 40% stenosis. Proximal LAD stent widely patent with minimal In- Stent restenosis in the 70-80% stenosis justdistal to the stent in the [place] LAD. The remaining LAD is widely patent. [...] right femoral with perclose (08/30/24, Dr. Lamb, [facility]) - Continue DAPT with ASA and plavix [...] metal stent #Aortic stenosis - TTE 05/2024 ([facility]) with EF 55%, low-flow, low-gradient - [...] been discussed with the patient and/or their operations support representative. All questions answered and they agree [...] MD Fellow, Department of Cardiovascular Medicine Pager: [phone] [1] Past Medical History: Diagnosis Date COPD (chronic obstructive pulmonary disease) ([facility]) HLD (hyperlipidemia) HTN (hypertension) Lung cancer ([facility]) Seasonal allergies [2] Past Surgical History: Procedure [...] PM EDT Appointment Cardiac Imaging [address] [place] [address] 01/04/2025 3:30 PM EDT Office Visit [facility] [address] [place] [address] Miguel Lamb MD [address] [place] [address] documented as of this encounter [...] - 899 pg/mL 08/31/2024 5:38 AM EDT [facility] Blood Venous blood specimen / Unknown Venipuncture / Unknown 08/31/2024 3:59 AM EDT 08/31/2024 4:36 AM EDT Zuly Gaspar APRN LAB BLOOD ORDERABLES Final R esult Performing Organization Address [facility] Co de Phone Number [facility] [address] [place] [address] * Magnesium, Plasma (08/31/2024 3:59 AM EDT) Pathologist [facility] [place] Magnesium, Plasma 2.2 1.9 - 2.4 mg/dL 08/31/2024 5:38 AM EDT [facility] Blood Venous blood specimen / Unknown Venipuncture / Unknown 08/31/2024 3:59 AM EDT 08/31/2024 4:36 AM EDT Zuly Gaspar APRN LAB BLOOD ORDERABLES Final R esult Performing Organization Address City/[facility]/ZIP Co de Phone Number [facility] [address] [place] [address] * (ABNORMAL) CBC W/O Differential (08/31/2024 3:59 AM EDT) Pathologist [facility] [place] WBC Count 16.14(H) 3.70 - 10.30 10*3/uL LAB HEMATOLOGY METHOD 08/31/2024 4:45 AM EDT [facility] RBC Count 2.68(L) 3.90 - 5.20 10*6/uL LAB HEMATOLOGY METHOD 08/31/2024 4:45 AM EDT [facility] HGB 7.9(L) 11.2 - 15.7 g/dL LAB HEMATOLOGY METHOD 08/31/2024 4:45 AM EDT [facility] HCT 25.6(L) 34.0 - 45.0 % LAB HEMATOLOGY METHOD 08/31/2024 4:45 AM EDT [facility] Platelet Count 277 155 - 369 10*3/uL LAB HEMATOLOGY METHOD 08/31/2024 4:45 AM EDT [facility] MCV 96 79 - 98 fL LAB HEMATOLOGY METHOD 08/31/2024 4:45 AM EDT [facility] MCH 29.5 26.0 - 32.0 pg LAB HEMATOLOGY METHOD 08/31/2024 4:45 AM EDT [facility] MCHC 30.9 30.7 - 35.5 g/dL LAB HEMATOLOGY METHOD 08/31/2024 4:45 AM EDT [facility] RDW 15.0(H) 11.5 - 14.5 % LAB HEMATOLOGY METHOD 08/31/2024 4:45 AM EDT [facility] MPV 10.3 8.8 - 12.5 fL LAB HEMATOLOGY METHOD 08/31/2024 4:45 AM EDT [facility] nRBC 0.0 <=0.0 per 100 WBCs LAB HEMATOLOGY METHOD 08/31/2024 4:45 AM EDT [facility] Blood Venous blood specimen / Unknown Venipuncture / Unknown 08/31/2024 3:59 AM EDT 08/31/2024 4:29 AM EDT us Zuly Gaspar DIRECTOR OF CURRICULUM LAB BLOOD ORDERABLES Final R esult [facility] [address] [place] [address] * (ABNORMAL) Basic Metabolic Panel, Plasma (08/31/2024 3:59 AM EDT) Glucose, Plasma 146(H) 74 - 99 mg/dL 08/31/2024 5:38 AM EDT [facility] BUN, Plasma 22 8 - 23 mg/dL 08/31/2024 5:38 AM EDT [facility] Creatinine, Plasma 1.36(H) 0.60 - 1.10 mg/dL 08/31/2024 5:38 AM EDT [facility] BUN/Creatinine Ratio 16 08/31/2024 5:38 AM EDT [facility] Sodium, Plasma 138 136 - 145 mmol/L 08/31/2024 5:38 AM EDT [facility] Potassium, Plasma 4.5 3.6 - 4.9 mmol/L 08/31/2024 5:38 AM EDT [facility] Chloride, Plasma 102 97 - 107 mmol/L 08/31/2024 5:38 AM EDT [facility] CO2, Plasma 20(L) 22 - 29 mmol/L 08/31/2024 5:38 AM EDT [facility] Anion Gap 16 6 - 16 mmol/L 08/31/2024 5:38 AM EDT [facility] Total Calcium, Plasma 9.1 8.9 - 10.2 mg/dL 08/31/2024 5:38 AM EDT [facility] eGFRcr 41.7 mL/min/1.7 3m*2 08/31/2024 5:38 AM EDT [facility] Comment:Reported eGFRcr in m L/min/1.73m2 is based the CKD-EPI 2020 equation that does not use a race coefficient. Blood Venous blood specimen / Unknown Venipuncture / Unknown 08/31/2024 3:59 AM EDT 08/31/2024 4:36 AM EDT us Zuly Gaspar APRN LAB BLOOD ORDERABLES Final R esult [facility] [address] [place] [address] * ECG Adult (08/30/2024 6:02 PM EDT) EKG DIAGNOSIS CLASS Abnormal MUSE ECG Ventricular Rate 99 BPM MUSE ECG Atrial Rate 99 BPM MUSE ECG AK Interval 142 ms MUSE ECG QRSD Interval 86 ms MUSE ECG QT Interval 368 ms MUSE ECG QTC Interval 472 ms MUSE ECG P [place] 66 degrees MUSE ECG R [place] 16 degrees MUSE ECG T Wave [place] 59 degrees MUSE ECG Diagnosis Normal sinus [...] placement of a 4.5 x 15 mm [place] drug-eluting stent (overlapping with previously placed stent distally and 1-2 mm of stent extending in the aorta) 2. 70% heavily calcified distal left main severe in-stent re-stenosis s/p balloon angioplasty with a 3.5 NC balloon 3. 90% ostial RCA stenosis s/p successful PCI with placement of a 3.0 x 12 mm and 3.0 x 18 mm [place] drug-eluting stent. Proximal-mid stent post-dilated to 3.5. [...] to direct stent. We then advanced a [place] Manjit 4.5 x 12 mm drug-eluting stent [...] 12 mm and 3.0 x 18 mm [place] Manjit drug eluting stents in the proximal [...] The patient was transferred back to the labour market economist holding area in good condition. Coronary Findings [...] seconds 09/03/2024 5:07 PM EDT [facility]ALTH[facility]ARE [facility] Tie Loader ID Omar Rivas 09/03/2024 5:07 PM EDT [facility] [place] [id number] 09/03/2024 5:07 PM EDT [facility] Comment 09/03/2024 5:07 PM EDT [facility] Comment: ACT performed by staff at [...] RESULTS Final Result [facility] [address] LAB [address] [place] [address] * POCT ACT (08/30/2024 4:28 PM EDT) ACT (Low Range) 210 65 - 400 seconds 09/03/2024 5:07 PM EDT HEALTHCARE LAB Tie Loader ID Oamr Rivas 09/03/2024 5:07 PM EDT [facility] [place] [id number] 09/03/2024 5:07 PM EDT HEALTHCARE LAB Comment 09/03/2024 5:07 PM EDT [facility] Comment: ACT performed by staff at [...] RESULTS Final Result [facility] [address] LAB [address] [place] [address] * POCT ACT (08/30/2024 3:38 PM EDT) ACT (Low Range) 390 65 - 400 seconds 09/03/2024 5:07 PM EDT HEALTHCARE LAB Tie Loader ID Omar Rivas 09/03/2024 5:07 PM EDT HEALTHCARE [place] [id number] 09/03/2024 5:07 PM EDT [facility]ARE LAB Comment 09/03/2024 5:07 PM EDT [facility] Comment: ACT performed by staff [...] UNSOLICITED RESULTS Final Result Performing Organization Address [facility] de Phone Number HEALTHCARE LAB [address] LAB [address] [place] [address] * (ABNORMAL) POCT ACT (08/30/2024 3:31 PM EDT) ACT (Low Range) >400(H) 65 - 400 seconds 09/03/2024 5:07 PM EDT HEALTHCARE LAB Tie Loader ID Omar Rivas 09/03/2024 5:07 PM EDT HEALTHCARE [place] [id number] 09/03/2024 5:07 PM EDT [facility]ALTH[facility]ARE LAB Comment 09/03/2024 5:07 PM EDT [facility] Comment: ACT performed by staff at [...] UNSOLICITED RESULTS Final Result Performing Organization Address [facility] Co de Phone Number [facility]ALTH[facility]ARE LAB [address] [place] [address] [place] [address] * POCT creatinine (08/30/2024 1:45 PM EDT) Creatinine, Point of Care 1.1 0.6 - 1.1 mg/dL 08/30/2024 1:49 PM EDT [facility]ALTHCARE LAB POCT eGFR 54 mL/min/1. 73m*2 08/30/2024 1:49 PM EDT HEALTHCARE LAB Tie Loader ID SagarissCasie blake 08/30/2024 1:49 PM EDT HEALTHCARE LAB Device ID [id number] 08/30/2024 1:49 PM EDT HEALTHCARE LAB Comment 08/30/2024 1:49 PM EDT [facility] Comment:Testing performed on i-STAT at the point of care. Reported eGFRcr in mL/min/1.73m2 is based the CKD-EPI 2020 equation that does not use a race coefficient. Blood Venous blood specimen / Unknown 08/30/2024 1:45 PM EDT 08/30/2024 1:49 PM EDT us Miguel Lamb MD LAB POINT OF CARE TE ST DOCKED DEVICE UNSOLICITED RESULTS Final Result [facility] [address] LAB [address] [place] [address] * (ABNORMAL) Basic metabolic panel (08/30/2024 1:39 PM EDT) Glucose, Plasma 138(H) 74 - 99 mg/dL 08/30/2024 3:02 PM EDT [facility] BUN, Plasma 16 8 - 23 mg/dL 08/30/2024 3:02 PM EDT [facility] Creatinine, Plasma 0.96 0.60 - 1.10 mg/dL 08/30/2024 3:02 PM EDT [facility] BUN/Creatinine Ratio 17 08/30/2024 3:02 PM EDT [facility] Sodium, Plasma 138 136 - 145 mmol/L 08/30/2024 3:02 PM EDT [facility] Potassium, Plasma 4.3 3.6 - 4.9 mmol/L 08/30/2024 3:02 PM EDT [facility] Chloride, Plasma 101 97 - 107 mmol/L 08/30/2024 3:02 PM EDT [facility] CO2, Plasma 20(L) 22 - 29 mmol/L 08/30/2024 3:02 PM EDT [facility] Anion Gap 17(H) 6 - 16 mmol/L 08/30/2024 3:02 PM EDT [facility] Total Calcium, Plasma 9.5 8.9 - 10.2 mg/dL 08/30/2024 3:02 PM EDT [facility] eGFRcr 63.4 mL/min/1.7 3m*2 08/30/2024 3:02 PM EDT [facility] Comment:Reported eGFRcr in m L/min/1.73m2 is based the CKD-EPI 2020 equation that does not use a race coefficient. Blood Venous blood specimen / Unknown Venipuncture / Unknown 08/30/2024 1:39 PM EDT 08/30/2024 2:32 PM EDT us Miguel Lamb MD LAB BLOOD ORDERABLES Final Resu lt [facility] [address] [place] [address] * (ABNORMAL) Hemogram (CBC) (08/30/2024 1:39 PM EDT) WBC Count 10.06 3.70 - 10.30 10*3/uL LAB HEMATOLOGY METHOD 08/30/2024 3:11 PM EDT [facility] RBC Count 3.10(L) 3.90 - 5.20 10*6/uL LAB HEMATOLOGY METHOD 08/30/2024 3:11 PM EDT [facility] HGB 8.8(L) 11.2 - 15.7 g/dL LAB HEMATOLOGY METHOD 08/30/2024 3:11 PM EDT [facility] HCT 28.9(L) 34.0 - 45.0 % LAB HEMATOLOGY METHOD 08/30/2024 3:11 PM EDT [facility] Platelet Count 284 155 - 369 10*3/uL LAB HEMATOLOGY METHOD 08/30/2024 3:11 PM EDT [facility] MCV 93 79 - 98 fL LAB HEMATOLOGY METHOD 08/30/2024 3:11 PM EDT [facility] MCH 28.4 26.0 - 32.0 pg LAB HEMATOLOGY METHOD 08/30/2024 3:11 PM EDT [facility] MCHC 30.4(L) 30.7 - 35.5 g/dL LAB HEMATOLOGY METHOD 08/30/2024 3:11 PM EDT [facility] RDW 14.8(H) 11.5 - 14.5 % LAB HEMATOLOGY METHOD 08/30/2024 3:11 PM EDT [facility] MPV 10.3 8.8 - 12.5 fL LAB HEMATOLOGY METHOD 08/30/2024 3:11 PM EDT [facility] nRBC 0.0 <=0.0 per 100 WBCs LAB HEMATOLOGY METHOD 08/30/2024 3:11 PM EDT [facility] Blood Venous blood specimen / Unknown Venipuncture / Unknown 08/30/2024 1:39 PM EDT 08/30/2024 3:03 PM EDT us Miguel Lamb MD LAB BLOOD ORDERABLES Final Resu lt [facility] [address] [place] [address] documented in this encounter Visit Diagnoses Diagnosis Nonrheumatic aortic valve stenosis- Primary S/P coronary artery stent placement Postsurgical percutaneous transluminal coronary angioplasty status Coronary artery disease Coronary atherosclerosis of unspecified type of vessel, [place] or graft Severe obesity (BMI 35.0-39.9) with [...] 08/31/2024 9:57 AM EDT 20 mg HYDROcodone-acetaminophen (Dunellen) 5-325 MG per tablet 5 mg of [...] (Given - Provider: Omar Rivas RN) HYDROcodone-acetaminophen (Dunellen) 5-325 MG per tablet 5 mg of [...] Rivas RN)1506 (Given - Provider: Omar Rivas RN)1514 (Given - Provider: Omar Rivas, [...] documented as of this encounter Care Teams Automotive Porter Relationship Specialty Start Date End Date Mustapha James MD [address] [place] [address] PCP - General 09/05/20 Miguel Lamb MD [address] [place] [phone] Referring Physician Interventional Cardiology 08/16/24 documented as of this encounter
--- OUTSIDE RECORDS SUMMARY | 2024-08-30 14:20 | XMS_ITS | Encounter Summary ---
Author Organization [facility] Address [address] [id number] Care Team Providers Care Service Observer Name Role Phone Mustapha James MD Primary Care Provider Miguel Lamb MD Unavailable [phone] Reason for Visit * Auth/Cert (Routine) Specialty Diagnoses / Procedures Referred By Contac t Referred To Contact Diagnoses Nonrheumatic aortic valve stenosis Nonrheumatic aortic valve stenosis [I35.0] Procedures MS PRQ TRLUML CORONARY STENT W/ANGIO ONE ART/BRNCH Percutaneous coronary intervention Miguel Lamb MD [address] [place] [address] Phone: tel: fax: Cardiac [facility]astic [facility] [address] [place] [address] Phone: tel: Referral ID Status Reason Start Date Expiration Date Visits Re quested Visits Authorized [id number] 1 1 Encounter Details Date Type Department Care Team (Late st Contact Info) Description 08/30/2024 2:20 PM EDT - 08/30/2024 4:20 PM EDT Surgery Cardiac Plastic Press [facility]older [address] [place] [address] Miguel Lamb MD [address] [place] [address] Percutaneous coronary intervention [46108 (CPT )] Surgery Details Date/Time Status Location OR Service Patient Class Case Class Case Type Trauma Case? 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 DEVELOPER 03 Cardiovascular [facility] Outpatient Surgery E-Elect marija Panel 1 Procedure LRB Anes Op Region Wound Class Comments Percutaneous coronary intervention N/A Surgeon Surgeon Role Service Panel Valerie Duke DO Cardiovascular 1 Migeul Lamb MD Primary Cardiovascular 1 documented in this encounter Social History Tobacco Use Types Packs/Day Years [...] Sign Reading Time Taken Comments Blood Pressure 147/76 08/30/2024 1:35 PM EDT Pulse 101 08/30/2024 1:35 PM EDT Temperature 36.8 C (98.2 F) 08/30/2024 1:35 PM EDT Respiratory Rate 24 08/30/2024 1:35 PM EDT Oxygen Saturation 86% 08/30/2024 3:36 PM EDT Inhaled Oxygen Concentration - - Weight 90.9 kg (200 lb 6.4 oz) 08/30/2024 1:35 P M EDT Height 160 cm (5' 3 ) 08/30/2024 1:35 PM EDT Body Mass Index 35.5 08/30/2024 1:35 PM EDT documented in this encounter Discharge Instructions * Discharge Instructions* Zuly Gaspar, ROSIO - 08/31/2024 6:47 AM EDT Discharge Instructions/Restrictions: [...] signs of infection or problems. Call the [facility] at [phone] if your incision is red, warm or [...] time do not work, call the Cardiac Plastic Press Molder at They will deliver a Rolator walker [...] by mouth daily. 30 tablet 11 08/31/2024 diazePAM (Valium) 5 MG tablet Take 1 [...] tablet by mouth daily. 07/24/2019 HYDROcodone-acet aminophen (Cooleemee) 7.5-325 MG tablet Take 1 tablet by [...] prior to surgery 3 tablet 1 08/31/2024 5 documented as of this encounter Miscellaneous Notes * Addendum Note - Miguel Lamb MD - 08/31/2024 1:48 PM EDTEncounter addended by: Miguel Lamb MD on: 09/10/2024 9:24 AM Actions taken: Results reviewed in IB * Progress Notes - Coco Gamez, RN - 08/31/2024 1:37 PM EDT Case Management Adult Progress Note Jodi Byrne 69 y.o. female CSN: [id number] Admission: 08/30/2024 1:09 PM Primary Problem: Nonrheumatic aortic valve stenosis Anticipated Discharge Date: today Additional Comments: Rollator referral sent to [employer]. Will be delivered to patients home. Coco Gamez RN * Lianet Durand RN - 08/31/2024 12:22 PM EDT Images from the original note were not included. [id number] Clopidogrel Brand Name(s): Plavix??; also available generically [...] doctor or pharmacist will give you the black top raker's patient information sheet (Medication Guide) when you begin treatment with clopidogrel and each time you refill your prescription. Read the information carefully and ask your doctor or pharmacist if you have any questions. You can also visit the Food and Drug Administration (FDA) website (https://www.fda.gov/Drugs/DrugSafety/qcc618522.htm) or the black top raker's website to obtain the Medication Guide. Talk [...] and out of their sight and reach. https://www.[facility].org What should I do in case of OVERDOSE? In case of overdose, call the poison control helpline at . Information is also available online at https://www.poisonhelp.org/help. If the victim has collapsed, had a seizure, has trouble breathing, or can't be awakened, immediately call emergency services at 911. Symptoms of overdose may include the following: ?? unusual bruising or bleeding What OTHER INFORMATION should I know? Keep all appointments with your doctor. Do not let anyone else take your medication. Ask your pharmacist any questions you have about refilling your prescription. It is important for you to keep a written list of all of the prescription and nonprescription (hoxd-zqe-gukakyo) medicines you are taking, as well as [...] or pharmacist about specific clinical use. The [place] [employer] represents that the information provided hereunder was formulated with a reasonable standard of care, and in conformity with professional standards in the field. The [place] [employer] makes no representations or warranties, express or implied, including, but not limited to, any implied warranty of merchantability and/or fitness for a particular purpose, with respect to such information and specifically disclaims all such warranties. Users are advised that decisions regarding drug therapy are complex medical decisions requiring the independent, informed decision of an appropriate health critical care physician assistant, and the information is provided for informational purposes only. The entire monograph for a drug should be reviewed for a thorough understanding of the drug's actions, uses and side effects. The [place] [employer] does not endorse or recommend the use of any drug.The information is not a substitute for medical care. AHFS?? Patient Medication Information?. ?? Copyright, 2023. The [place] [employer]??, [address], [address], [place], [place]. All Rights Reserved. Duplication for commercial use must be authorized by [facility]. Selected Revisions: October 13, 2023. AHFS?? [...] - 08/31/2024 12:19 PM EDT Call the [facility] at [phone] if your incision is red, warm or [...] doctor before taking any other medicine, including jfhc-pqu-lspqzsk medicines (for example aspirin), vitamins, herbals, or [...] from the original note were not included. [id number] Diphenhydramine Brand Name(s): Aler-Dryl??, Allergia-C?, Allermax?, Altaryl?, [...] a combination product containing Diphenhydramine, Naproxen), Anacin P. M. Aspirin Free?? (as a combination product containing [...] be awakened, immediately call emergency services at 356. What OTHER INFORMATION should I know? Ask your pharmacist any questions you have about diphenhydramine. It is important for you to keep a written list of all of the prescription and nonprescription (ommp-eek-bowgvjt) medicines you are taking, as well as [...] or pharmacist about specific clinical use. The [place] [employer] represents that the information provided hereunder was formulated with a reasonable standard of care, and in conformity with professional standards in the field. The [place] [employer] makes no representations or warranties, express or implied, including, but not limited to, any implied warranty of merchantability and/or fitness for a particular purpose, with respect to such information and specifically disclaims all such warranties. Users are advised that decisions regarding drug therapy are complex medical decisions requiring the independent, informed decision of an appropriate health critical care physician assistant, and the information is provided for informational purposes only. The entire monograph for a drug should be reviewed for a thorough understanding of the drug's actions, uses and side effects. The [place] [employer] does not endorse or recommend the use of any drug.The information is not a substitute for medical care. AHFS?? Patient Medication Information?. ?? Copyright, 2023. The [place] [employer]??, [address], [address], [place], [place]. All Rights Reserved. Duplication for commercial use must be authorized by [facility]. Selected Revisions: May 09, 2021. AHFS?? Patient Medication Information?. ?? Copyright, 2024 * Trace [facility] - Lianet Chawla RN - 08/31/2024 11:49 AM EDT Images from the original note were not included. [id number] Discharge Instructions for Cardiac Catheterization Cardiac catheterization [...] pressure. Last Reviewed Date: 2024 00:00:00 ?? [id number] [employer]. All rights reserved. This information is not intended as a substitute for professional medical care. Always follow your healthcare professional's instructions. * Trace Pierre - Lianet Chawla RN - 08/31/2024 11:49 AM EDT Images from the original note were not included. 00850 Having Cardiac Catheterization You may have had [...] health care team about all prescription medicines, fgga-nsm-rxefjqw medicines, vitamins, and supplements you take and [...] firmly. Last Reviewed Date: 2024 00:00:00 ?? 8813-9109 [employer]. All rights reserved. This information is not intended as a substitute for professional medical care. Always follow your healthcare professional's instructions. * Trace [facility] - Lianet Chawla RN - 08/31/2024 11:49 AM EDT Images from the original note were not included. 91806 Understanding Transcatheter Aortic Valve Replacement (TAVR) Transcatheter [...] program. Last Reviewed Date: 2024 00:00:00 ?? 4862-2511 [employer]. All rights reserved. This information is not intended as a substitute for professional medical care. Always follow your healthcare professional's instructions. * Trace [facility] - Lianet Chawla RN - 08/31/2024 11:49 AM EDT Images from the original note were not included. 83650 Heart Valve Problems: Aortic Stenosis Aortic stenosis [...] symptoms. Last Reviewed Date: 2023 00:00:00 ?? 9331-6231 [employer]. All rights reserved. This information is not [...] PCP name and Address: Mustapha James MD [address] [place] [id number] Chief Concern, Brief History of Present Illness, [...] stents to bilateral iliac arteries 12/2021 - [facility] 06/2424 ([place]): LM ostial calcified eccentric 90% stenosis in the distal eccentric 40% stenosis. Proximal LAD stent widely patent with minimal In- Stent restenosis in the 70-80% stenosis justdistal to the stent in the shinnecock LAD. The remaining LAD is widely patent. [...] right femoral with perclose (08/30/24, Dr. Lamb, [facility]) - Continue DAPT with ASA and plavix [...] metal stent #Aortic stenosis - TTE 05/2024 ([facility]) with EF 55%, low-flow, low-gradient - NYHA [...] - 1.1 mg/dL POCT eGFR 54 mL/min/1.73m*2 Principal Administrative Clerk ID TeofilobertaCasie bar[place] [id number] Comment Basic Metabolic Panel, Plasma Collection Time: 08/31/24 [...] HYDROcodone-acetaminophen 7.5-325 MG tablet Commonly known as: Cooleemee Take 1 tablet by mouth every 8 [...] Ellipta 100-62.5-25 MCG/ACT aerosol powder Generic drug: Zrdjlvrouvt-Noxvewivc-Svaumj Inhale. VITAMIN D (CHOLECALCIFEROL) PO Take by mouth. Where to Get Your Medications These medications were sent to [facility] [place], [place] - [address], [facility] [id number] clopidogrel 75 MG tablet diphenhydrAMINE 50 MG [...] signs of infection or problems. Call the [facility] at [phone] if your incision is red, warm or [...] time do not work, call the Cardiac Plastic Press Molder at They will deliver a Rolator walker to your house. Outpatient Follow-Up Staged PCI to RCA 09/18/24 Discharge Disposition/Condition Disposition: Home Condition: Stable (s/sx potential problems absent or manageable) I spent > 30min working on this discharge including performing physical examination, review of laboratory/imaging results with the patient, discussion of medication management, and preparation of discharge paperwork. Zuly Gaspar APRN [phone] Cosigned by Miguel Lamb MD at 08/31/2024 [...] stents to bilateral iliac arteries 12/2021 - [facility] 06/2424 ([facility]): LM ostial calcified eccentric 90% stenosis in the distal eccentric 40% stenosis. Proximal LAD stent widely patent with minimal In- Stent restenosis in the 70-80% stenosis justdistal to the stent in the shinnecock LAD. The remaining LAD is widely patent. [...] right femoral with perclose (08/30/24, Dr. Lamb, [facility]) - Continue DAPT with ASA and plavix [...] metal stent #Aortic stenosis - TTE 05/2024 ([facility]) with EF 55%, low-flow, low-gradient - NYHA [...] been discussed with the patient and/or their apprenticeship representative. All questions answered and they agree [...] MD Fellow, Department of Cardiovascular Medicine Pager: [phone] [1] Past Medical History: Diagnosis Date COPD (chronic obstructive pulmonary disease) (CMS/HCC) HLD (hyperlipidemia) HTN (hypertension) Lung cancer (CMS/[facility]) Seasonal allergies [2] Past Surgical History: Procedure [...] PM EDT Appointment Cardiac Imaging [address] [place] [address] 01/04/2025 3:30 PM EDT Office Visit [facility] [address] [place] [address] Miguel Lamb MD [address] [place] [address] documented as of this encounter [...] - 899 pg/mL 08/31/2024 5:38 AM EDT [facility] Blood Venous blood specimen / Unknown Venipuncture / Unknown 08/31/2024 3:59 AM EDT 08/31/2024 4:36 AM EDT Zuly Gaspar APRN LAB BLOOD ORDERABLES Final R esult Performing Organization Address City/[facility]/ZIP Co de Phone Number [facility] [address] [place] [address] * Magnesium, Plasma (08/31/2024 3:59 AM EDT) [facility] Magnesium, Plasma 2.2 1.9 - 2.4 mg/dL 08/31/2024 5:38 AM EDT [facility] Blood Venous blood specimen / Unknown Venipuncture / Unknown 08/31/2024 3:59 AM EDT 08/31/2024 4:36 AM EDT Zuly Gaspar APRN LAB BLOOD ORDERABLES Final R esult Performing Organization Address City/[facility]/[place] [address] * (ABNORMAL) CBC W/O Differential (08/31/2024 3:59 AM EDT) [facility] WBC Count 16.14(H) 3.70 - 10.30 10*3/uL LAB HEMATOLOGY METHOD 08/31/2024 4:45 AM EDT [facility] RBC Count 2.68(L) 3.90 - 5.20 10*6/uL LAB HEMATOLOGY METHOD 08/31/2024 4:45 AM EDT [facility] HGB 7.9(L) 11.2 - 15.7 g/dL LAB HEMATOLOGY METHOD 08/31/2024 4:45 AM EDT [facility] HCT 25.6(L) 34.0 - 45.0 % LAB HEMATOLOGY METHOD 08/31/2024 4:45 AM EDT [facility] Platelet Count 277 155 - 369 10*3/uL LAB HEMATOLOGY METHOD 08/31/2024 4:45 AM EDT [facility] MCV 96 79 - 98 fL LAB HEMATOLOGY METHOD 08/31/2024 4:45 AM EDT [facility] MCH 29.5 26.0 - 32.0 pg LAB HEMATOLOGY METHOD 08/31/2024 4:45 AM EDT [facility] MCHC 30.9 30.7 - 35.5 g/dL LAB HEMATOLOGY METHOD 08/31/2024 4:45 AM EDT [facility] RDW 15.0(H) 11.5 - 14.5 % LAB HEMATOLOGY METHOD 08/31/2024 4:45 AM EDT [facility] MPV 10.3 8.8 - 12.5 fL LAB HEMATOLOGY METHOD 08/31/2024 4:45 AM EDT [facility] nRBC 0.0 <=0.0 per 100 WBCs LAB HEMATOLOGY METHOD 08/31/2024 4:45 AM EDT [facility] Blood Venous blood specimen / Unknown Venipuncture / Unknown 08/31/2024 3:59 AM EDT 08/31/2024 4:29 AM EDT us Zuly Gaspar APRN LAB BLOOD ORDERABLES Final R esult [facility] [address] [place] [address] * (ABNORMAL) Basic Metabolic Panel, Plasma (08/31/2024 3:59 AM EDT) Glucose, Plasma 146(H) 74 - 99 mg/dL 08/31/2024 5:38 AM EDT [facility] BUN, Plasma 22 8 - 23 mg/dL 08/31/2024 5:38 AM EDT [facility] Creatinine, Plasma 1.36(H) 0.60 - 1.10 mg/dL 08/31/2024 5:38 AM EDT [facility] BUN/Creatinine Ratio 16 08/31/2024 5:38 AM EDT [facility] Sodium, Plasma 138 136 - 145 mmol/L 08/31/2024 5:38 AM EDT [facility] Potassium, Plasma 4.5 3.6 - 4.9 mmol/L 08/31/2024 5:38 AM EDT [facility] Chloride, Plasma 102 97 - 107 mmol/L 08/31/2024 5:38 AM EDT [facility] CO2, Plasma 20(L) 22 - 29 mmol/L 08/31/2024 5:38 AM EDT [facility] Anion Gap 16 6 - 16 mmol/L 08/31/2024 5:38 AM EDT [facility] Total Calcium, Plasma 9.1 8.9 - 10.2 mg/dL 08/31/2024 5:38 AM EDT [facility] eGFRcr 41.7 mL/min/1.7 3m*2 08/31/2024 5:38 AM EDT [facility] Comment:Reported eGFRcr in m L/min/1.73m2 is based the CKD-EPI 2020 equation that does not use a race coefficient. Blood Venous blood specimen / Unknown Venipuncture / Unknown 08/31/2024 3:59 AM EDT 08/31/2024 4:36 AM EDT us Zuly Gaspar ANIMAL ASSISTANT LAB BLOOD ORDERABLES Final R esult [facility] [address] [place] [address] * ECG Adult (08/30/2024 6:02 PM EDT) EKG DIAGNOSIS CLASS Abnormal MUSE ECG Ventricular Rate 99 BPM MUSE ECG Atrial Rate 99 BPM MUSE ECG MS Interval 142 ms MUSE ECG QRSD Interval 86 ms MUSE ECG QT Interval 368 ms MUSE ECG QTC Interval 472 ms MUSE ECG P [place] 66 degrees MUSE ECG R [place] 16 degrees MUSE ECG T Wave [place] 59 degrees MUSE ECG Diagnosis Normal sinus [...] placement of a 4.5 x 15 mm Hereford Manjit drug-eluting stent (overlapping with previously placed stent distally and 1-2 mm of stent extending in the aorta) 2. 70% heavily calcified distal left main severe in-stent re-stenosis s/p balloon angioplasty with a 3.5 NC balloon 3. 90% ostial RCA stenosis s/p successful PCI with placement of a 3.0 x 12 mm and 3.0 x 18 mm Hereford Manjit drug-eluting stent. Proximal-mid stent post-dilated to 3.5. [...] to direct stent. We then advanced a Hereford Manjit 4.5 x 12 mm drug-eluting stent [...] 12 mm and 3.0 x 18 mm Hereford Manjit drug eluting stents in the proximal [...] The patient was transferred back to the catheter builder holding area in good condition. Coronary Findings [...] Phase: Resting Aortic AO: 151/63 (103) mmHg us Miguel Lamb MD CV CARDIAC CATH PROCEDURES Sheyla l Result * (ABNORMAL) POCT ACT (08/30/2024 5:11 PM EDT) ACT (Low Range) >400(H) 65 - 400 seconds 09/03/2024 5:07 PM EDT [facility] Principal Administrative Clerk ID Omar Rivas 09/03/2024 5:07 PM EDT HEALTH[facility] [place] [id number] 09/03/2024 5:07 PM EDT [facility] Comment 09/03/2024 5:07 PM EDT [facility] Comment: ACT performed by staff [...] 5:11 PM EDT 09/03/2024 5:07 PM EDT us Miguel Lamb MD LAB POINT OF CARE TE ST DOCKED DEVICE UNSOLICITED RESULTS Final Result [facility] [address] [facility] [address] [place] [address] * POCT ACT (08/30/2024 4:28 PM EDT) ACT (Low Range) 210 65 - 400 seconds 09/03/2024 5:07 PM EDT [facility] Principal Administrative Clerk ID Omar Rivas 09/03/2024 5:07 PM EDT [facility] [place] [id number] 09/03/2024 5:07 PM EDT [facility] Comment 09/03/2024 5:07 PM EDT [facility] Comment: ACT performed by staff at [...] UNSOLICITED RESULTS Final Result Performing Organization Address [facility] Co de Phone Number [facility] [address] LAB [address] [place] [address] * POCT ACT (08/30/2024 3:38 PM EDT) [facility] ACT (Low Range) 390 65 - 400 seconds 09/03/2024 5:07 PM EDT [facility] Principal Administrative Clerk ID Omar Rivas 09/03/2024 5:07 PM EDT [facility] [place] [id number] 09/03/2024 5:07 PM EDT [facility] Comment 09/03/2024 5:07 PM EDT [facility] Comment: ACT performed by staff at [...] 3:38 PM EDT 09/03/2024 5:07 PM EDT us Miguel Lamb MD LAB POINT OF CARE TE ST DOCKED DEVICE UNSOLICITED RESULTS Final Result Performing Organization Address City/[facility]/ZIP Co de Phone Number [facility] [address] [facility] [address] [place] [address] * (ABNORMAL) POCT ACT (08/30/2024 3:31 PM EDT) ACT (Low Range) >400(H) 65 - 400 seconds 09/03/2024 5:07 PM EDT [facility] Principal Administrative Clerk ID Omar Rivas 09/03/2024 5:07 PM EDT [facility]ARE [place] [id number] 09/03/2024 5:07 PM EDT [facility] Comment 09/03/2024 5:07 PM EDT [facility] Comment: ACT performed by staff [...] ST DOCKED DEVICE UNSOLICITED RESULTS Final Result [facility] [address] [place] [address] * POCT creatinine (08/30/2024 1:45 PM EDT) [facility] Creatinine, Point of Care 1.1 0.6 - 1.1 mg/dL 08/30/2024 1:49 PM EDT [facility] POCT eGFR 54 mL/min/1. 73m*2 08/30/2024 1:49 PM EDT [facility] Principal Administrative Clerk ID Casie Hernandez 08/30/2024 1:49 PM EDT [facility] Device ID [id number] 08/30/2024 1:49 PM EDT [facility] Comment 08/30/2024 1:49 PM EDT [facility] Comment:Testing performed on i-STAT at the point of care. Reported eGFRcr in mL/min/1.73m2 is based the CKD-EPI 2020 equation that does not use a race coefficient. Blood Venous blood specimen / Unknown 08/30/2024 1:45 PM EDT 08/30/2024 1:49 PM EDT Miguel Lamb MD LAB POINT OF CARE TE ST DOCKED DEVICE UNSOLICITED RESULTS Final Result [facility] [address] [facility] [address] [place] [address] * (ABNORMAL) Basic metabolic panel (08/30/2024 1:39 PM EDT) Glucose, Plasma 138(H) 74 - 99 mg/dL 08/30/2024 3:02 PM EDT [facility] BUN, Plasma 16 8 - 23 mg/dL 08/30/2024 3:02 PM EDT [facility] Creatinine, Plasma 0.96 0.60 - 1.10 mg/dL 08/30/2024 3:02 PM EDT [facility] BUN/Creatinine Ratio 17 08/30/2024 3:02 PM EDT [facility] Sodium, Plasma 138 136 - 145 mmol/L 08/30/2024 3:02 PM EDT [facility] Potassium, Plasma 4.3 3.6 - 4.9 mmol/L 08/30/2024 3:02 PM EDT [facility] Chloride, Plasma 101 97 - 107 mmol/L 08/30/2024 3:02 PM EDT [facility] CO2, Plasma 20(L) 22 - 29 mmol/L 08/30/2024 3:02 PM EDT [facility] Anion Gap 17(H) 6 - 16 mmol/L 08/30/2024 3:02 PM EDT [facility] Total Calcium, Plasma 9.5 8.9 - 10.2 mg/dL 08/30/2024 3:02 PM EDT [facility] eGFRcr 63.4 mL/min/1.7 3m*2 08/30/2024 3:02 PM EDT [facility] Comment:Reported eGFRcr in m L/min/1.73m2 is based the CKD-EPI 2020 equation that does not use a race coefficient. Blood Venous blood specimen / Unknown Venipuncture / Unknown 08/30/2024 1:39 PM EDT 08/30/2024 2:32 PM EDT us Miguel Lamb MD LAB BLOOD ORDERABLES Final Resu lt [facility] [address] [place] [address] * (ABNORMAL) Hemogram (CBC) (08/30/2024 1:39 PM EDT) WBC Count 10.06 3.70 - 10.30 10*3/uL LAB HEMATOLOGY METHOD 08/30/2024 3:11 PM EDT [facility] RBC Count 3.10(L) 3.90 - 5.20 10*6/uL LAB HEMATOLOGY METHOD 08/30/2024 3:11 PM EDT [facility] HGB 8.8(L) 11.2 - 15.7 g/dL LAB HEMATOLOGY METHOD 08/30/2024 3:11 PM EDT [facility] HCT 28.9(L) 34.0 - 45.0 % LAB HEMATOLOGY METHOD 08/30/2024 3:11 PM EDT [facility] Platelet Count 284 155 - 369 10*3/uL LAB HEMATOLOGY METHOD 08/30/2024 3:11 PM EDT [facility] MCV 93 79 - 98 fL LAB HEMATOLOGY METHOD 08/30/2024 3:11 PM EDT [facility] MCH 28.4 26.0 - 32.0 pg LAB HEMATOLOGY METHOD 08/30/2024 3:11 PM EDT [facility] MCHC 30.4(L) 30.7 - 35.5 g/dL LAB HEMATOLOGY METHOD 08/30/2024 3:11 PM EDT [facility] RDW 14.8(H) 11.5 - 14.5 % LAB HEMATOLOGY METHOD 08/30/2024 3:11 PM EDT [facility] MPV 10.3 8.8 - 12.5 fL LAB HEMATOLOGY METHOD 08/30/2024 3:11 PM EDT [facility] nRBC 0.0 <=0.0 per 100 WBCs LAB HEMATOLOGY METHOD 08/30/2024 3:11 PM EDT [facility] Blood Venous blood specimen / Unknown Venipuncture / Unknown 08/30/2024 1:39 PM EDT 08/30/2024 3:03 PM EDT us Miguel Lamb MD LAB BLOOD ORDERABLES Final Resu lt [facility] [address] [place] [address] documented in this encounter Visit Diagnoses Diagnosis Nonrheumatic aortic valve stenosis- Primary S/P coronary artery stent placement Postsurgical percutaneous transluminal coronary angioplasty status S/P coronary artery stent placement Postsurgical percutaneous transluminal coronary angioplasty status Nonrheumatic aortic valve stenosis documented in this [...] Oral, 3 times daily, First dose on Luz Elena 08/30/24 at 2100, Until Discontinued, Routine Given 08/31/2024 [...] Given 08/30/2024 8:12 PM EDT 20 mg fentaNYL (Sublimaze) injection As needed, Starting on Tue08/30/24 at 1500, Until Tue08/30/24 at 1749, Routine, Intraprocedure Given 08/30/2024 4:13 PM EDT 25 mcg Given 08/30/2024 3:23 PM EDT 25 mcg Given 08/30/2024 3:06 PM EDT 25 mcg furosemide (Lasix) tablet 20 mg 20 mg, Oral, Daily, First dose on Tue08/31/24 at 0900, Until Discontinued, Routine Given 08/31/2024 9:57 AM EDT 20 mg heparin (porcine) injection As needed, Starting on Luz Elena 08/30/24 at 1515, Until Tue08/30/24 at 1749, Routine, Intraprocedure Given 08/30/2024 4:31 PM EDT 4,000 Units Given 08/30/2024 3:15 PM EDT 9,000 Units HYDROcodone-acetaminophen ([place]) 5-325 MG per tablet 5 mg of hydrocodone 5 mg of hydrocodone, Oral, Every 6 hours PRN, Starting on Tue08/30/24 at 1822, Until Tue08/31/24 at 1548, Routine, moderate pain iohexol (OMNIPaque) 240 MG/ML injection As needed, Starting on Luz Elena 08/30/24 at 1732, Until Luz Elena 08/30/24 at 1749, Routine, Intraprocedure Given 08/30/2024 5:32 PM EDT 280 mL labetalol (Normodyne,Trandate) injection As needed, Starting on Luz Elena 08/30/24 at 1535, Until Tue08/30/24 at 1749, Routine, Intraprocedure Given 08/30/2024 3:41 PM EDT 20 mg Given 08/30/2024 3:35 PM EDT 20 mg levothyroxine (Synthroid, Levoxyl) tablet 50 mcg 50 mcg, Oral, Daily before breakfast, First dose on Tue08/31/24 at 0730, Until Discontinued, Routine Given 08/31/2024 6:48 AM EDT 50 mcg lidocaine (Xylocaine) 1 % injection As needed, Starting on Tue08/30/24 at 1510, Until Tue08/30/24 at 1749, Routine, Intraprocedure Given 08/30/2024 3:10 PM EDT 10 mL Right Femoral lisinopril tablet 10 mg 10 mg, Oral, Nightly, First dose (after last modification) on Tue08/30/24 at 2100, Until Discontinued, Routine Given 08/30/2024 8:11 PM EDT 10 mg methylPREDNISolone sodium succinate (PF) (SOLU-Medrol) injection 125 mg 125 mg, Intravenous, Once, 1 dose, On Tue08/30/24 at 1530, Routine Given 08/30/2024 2:40 PM EDT 125 mg metoprolol succinate XL (Toprol-XL) 24 hr tablet 75 mg 75 mg, Oral, Nightly, First dose (after last modification) on Tue08/31/24 at 2100, Until Discontinued, Routine midazolam (Versed) injection As needed, Starting on Tue08/30/24 at 1500, Until Tue08/30/24 at 1749, Routine, Intraprocedure Given 08/30/2024 3:14 PM EDT 2 mg Given 08/30/2024 3:06 PM EDT 1 mg Given 08/30/2024 3:00 PM EDT 1 mg pantoprazole (Protonix) EC tablet 40 mg 40 mg, Oral, Daily before breakfast, First dose on Tue08/31/24 at 0730, Until Discontinued Given 08/31/2024 6: 48 AM EDT 40 mg documented in this encounter Active and Recently Administered Medications Times are shown in EDT. Scheduled Medication Order 08/29/2024 08/30/2024 08/31/2024 aspirin chewable tablet 81 mg (COMPLETED) 81 mg, Oral, Once, 1 dose, On Tue08/30/24 at 1515, Routine 1429 (Given - Provider: [...] on Tue08/30/24 at 2100, Until Discontinued, Routine 2011 (Given [...] on Tue08/31/24 at 0730, Until Discontinued, Routine 0648 (Given - Provid er: Artur Lara [...] Elena 08/30/24 at 1500, Until Luz Elena 08/30/24 at 1749, Routine, Intraprocedure 1500 (Given - Provider: Omar Rivas RN)1506 (Given - Provider: Omar Rivas RN)1523 (Given - Provider: Omar Rivas RN)1613 (Given - Provider: Omar Rivas RN) heparin (porcine) injection (CANCELED) As needed, Starting on Luz Elena 08/30/24 at 1515, Until Luz Elena 08/30/24 at 1749, Routine, Intraprocedure 1515 (Given - Provider: Omar Rivas RN)1631 (Given - Provider: Omar Rivas RN) HYDROcodone-acetaminophen ([place]) 5-325 MG per tablet 5 mg of hydrocodone 5 mg of hydrocodone, Oral, Every 6 hours PRN, Starting on Luz Elena 08/30/24 at 1822, Until Tue08/31/24 at 1548, Routine, moderate pain iohexol (OMNIPaque) 240 MG/ML injection (CANCELED) As needed, Starting on Luz Elena 08/30/24 at 1732, Until Luz Elena 08/30/24 at 1749, Routine, Intraprocedure 1732 (Given - Provider: Miguel Lamb MD) labetalol (Normodyne,Trandate) injection (CANCELED) As needed, Starting on Luz Elena 08/30/24 at 1535, Until Luz Elena 08/30/24 at 1749, Routine, Intraprocedure 1535 (Given - Provider: Omar Rivas RN)1541 (Given - Provider: Omar Rivas RN) lidocaine (Xylocaine) 1 % injection (CANCELED) As needed, Starting on Luz Elena 08/30/24 at 1510, Until Luz Elena 08/30/24 at 1749, Routine, Intraprocedure 1510 (Given - Provider: Valerie Duke DO) midazolam (Versed) injection (CANCELED) As needed, Starting on Luz Elena 08/30/24 at 1500, Until Luz Elena 08/30/24 at 1749, Routine, Intraprocedure 1500 (Given - Provider: Omar Rivas RN)1506 (Given - Provider: Omar Rivas RN)1514 (Given - Provider: Omar Rivas RN) nitroglycerin (Nitrostat) SL tablet 0.4 mg 0.4 mg, Sublingual, Every 5 min PRN, Starting on Luz Elena 08/30/24 at 1719, Until Tue08/31/24 at 1548, Routine, chest pain documented in this encounter Additional Health Concerns Assessment Noted Time PHQ-9 Depression Total Score: 0 07/21/19 25 11:35 AM EDT A fall risk assessment has been complete d for the patient 08/15/2024 10:46 AM EDT A Body Mass Index follow-up plan has been documented for the patient 08/31/2024 12:22 PM EDT documented as of this encounter Care Teams Service Observer Relationship Specialty Start Date End Date Mustapha James MD [address] [place] [id number] PCP - General 09/05/20 Mgiuel Lamb MD [address] [place] [phone] Referring Physician Interventional Cardiology 08/16/24 documented as of this encounter
--- OUTSIDE RECORDS SUMMARY | 2024-09-18 07:17 | XMS_ITS | Encounter Summary ---
Author Organization [facility] Address [address] [id number] Care Team Providers Care Clearing Inspector Name Role Phone Mustapha James MD Primary Care Provider [phone] Miguel Lamb MD Unavailable [phone] Reason for Visit * Auth/Cert (Routine) Specialty Diagnoses / Procedures Referred By Contac t Referred To Contact Diagnoses S/P coronary artery stent placement S/P coronary artery stent placement [Z95.5] Procedures OH PRQ TRLUML CORONARY STENT W/ANGIO ONE ART/BRNCH Percutaneous coronary intervention Miguel Lamb MD [address] [place] [address] Phone: tel: fax: Cardiac Family Services Assistant [address] [place] [address] Phone: tel: Referral ID Status Reason Start Date Expiration Date Visits Re quested Visits Authorized [id number] 1 1 Encounter Details Date Type Department Care Team (Latest Contact Info) Description 09/18/2024 7:17 AM EDT - 09/18/2024 3:19 PM EDT Hospital Encounter Cardiac Family Services Assistant [address] [place] [address] Miguel Lamb MD [address] [place] [address] S/P coronary artery stent placement [...] tablet by mouth daily. 07/24/2019 HYDROcodone-acet aminophen (Gentry) 7.5-325 MG tablet Take 1 tablet by [...] from the original note were not included. [id number] Bleeding or Hematoma After Cardiac Catheterization You [...] on the site, and call 911 or [employer] take you to the emergency room. In [...] provider. Last Reviewed Date: 2024 00:00:00 ?? [id number] [employer]. All rights reserved. 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 All questions answered and they [...] 50 MCG/ACT nasal spray 1 spray, Daily Atsspbcahmc-Bbclyaqej-Tavvto (Trelegy Ellipta) 100-62.5-25 MCG/ACT aerosol powder Inhale. furosemide (LASIX) 20 mg, Daily HYDROcodone-acetaminophen (Gentry) 7.5-325 MG tablet 1 tablet, Every 8 [...] Fellow, PGY-6, Department of Cardiovascular Medicine Pager: [phone] [1] Past Medical History: Diagnosis Date COPD [...] PM EDT Appointment Cardiac Imaging [address] [place] [address] 01/04/2025 3:30 PM EDT Office Visit [facility] [address] [place] [address] Miguel Lamb MD [address] [place] [address] documented as of this encounter Procedures Procedure [...] of an overlapping 3.5 x 12 mm Ward Manjit drug-eluting stent. Ostium flared to 4.0. 3. Serial 70% diffuse lesions of the mid-distal RCA s/p successful PCI with placement of overlapping 3.0 x 26 mm and 2.75 x 30 mm Ward Manjit drug-eluting stents (proximal-distal). Recommendations: 1. Post-PCI [...] advanced a 2.75 mm x 30 mm Ward Manjit drug eluting stent into the lesion and deployed at 12 rachael. We then placed and overlapping 3.0 x 26 mm Ward Manjit drug-eluting stent proximal to the aforementioend stent, inflated to 12 rachael. Post-dilation of the proximal-mid stent was then carried out using a 3.0 NC balloon. We then closely evaluated the ostium which appeared to have disease and appeared to be uncovered. We then advanced a 3.5 x 12 mm Ward [place] drug- eluting stent in the proximal RCA [...] The patient was transferred back to the photo lab manager holding area in good condition. Coronary Findings [...] * POCT ACT (09/18/2024 9:52 AM EDT) [facility] Signature ACT (Low Range) 352 65 - 400 seconds 09/26/2024 9:35 AM EDT [facility] Genetics Teacher ID Mary Marin 09/26/2024 9:35 AM EDT [facility] ACT Device ID [id number] 09/26/2024 9:35 AM EDT [facility] Comment 09/26/2024 9:[address] [facility] Comment: ACT performed by staff [...] UNSOLICITED RESULTS Final Result Performing Organization Address City/[facility] de Phone Number [facility]ALTH[facility] [address] [facility] [address] [place] [address] * POCT ACT (09/18/2024 9:32 AM EDT) ACT (Low Range) 247 65 - 400 seconds 09/26/2024 9:35 AM EDT [facility] Genetics Teacher ID Mary Marin 09/26/2024 9:35 AM EDT [facility] ACT Device ID [id number] 09/26/2024 9:35 AM EDT [facility] Comment 09/26/2024 9:[address] [facility] Comment: ACT performed by staff [...] UNSOLICITED RESULTS Final Result Performing Organization Address City/[facility] de Phone Number [facility] [address] [facility] [address] [place] [address] * (ABNORMAL) POCT creatinine (09/18/2024 8:24 AM EDT) Creatinine, Point of Care 1.2(H) 0.6 - 1.1 mg/dL 09/18/2024 8:28 AM EDT [facility] POCT eGFR 48 mL/min/1. 73m*2 09/18/2024 8:28 AM EDT [facility] Genetics Teacher ID Rosangela Gallegos 09/18/2024 8:28 AM EDT HEALTH[facility]ARE LAB Device ID [id number] 09/18/2024 8:28 AM EDT [facility] Comment 09/18/2024 8:[address] [facility] Comment:Testing performed on i-STAT at the point of care. Reported eGFRcr in mL/min/1.73m2 is based the CKD-EPI 2020 equation that does not use a race coefficient. Blood Venous blood specimen / Unknown 09/18/2024 8:24 AM EDT 09/18/2024 8:28 AM EDT Miguel Lamb MD LAB POINT OF CARE TE ST DOCKED DEVICE UNSOLICITED RESULTS Final Result [facility] [address] [facility] [address] [place] [address] * (ABNORMAL) CBC and differential (09/18/2024 8:20 AM EDT) WBC Count 8.79 3.70 - 10.30 10*3/uL LAB HEMATOLOGY METHOD 09/18/2024 8:[address] [facility] RBC Count 2.65(L) 3.90 - 5.20 10*6/uL LAB HEMATOLOGY METHOD 09/18/2024 8:[address] [facility] HGB 7.2(L) 11.2 - 15.7 g/dL LAB HEMATOLOGY METHOD 09/18/2024 8:[address] [facility] HCT 24.6(L) 34.0 - 45.0 % LAB HEMATOLOGY METHOD 09/18/2024 8:[address] [facility] Platelet Count 358 155 - 369 10*3/uL LAB HEMATOLOGY METHOD 09/18/2024 8:[address] [facility] MCV 93 79 - 98 fL LAB HEMATOLOGY METHOD 09/18/2024 8:[address] [facility] MCH 27.2 26.0 - 32.0 pg LAB HEMATOLOGY METHOD 09/18/2024 8:[address] [facility] MCHC 29.3(L) 30.7 - 35.5 g/dL LAB HEMATOLOGY METHOD 09/18/2024 8:[address] [facility] RDW 16.0(H) 11.5 - 14.5 % LAB HEMATOLOGY METHOD 09/18/2024 8:[address] [facility] MPV 10.4 8.8 - 12.5 fL LAB HEMATOLOGY METHOD 09/18/2024 8:[address] [facility] nRBC 0.0 <=0.0 per 100 WBCs LAB HEMATOLOGY METHOD 09/18/2024 8:[address] [facility] Differential Type Automated LAB HEMATOLOGY METHOD 09/18/2024 8:[address] [facility] Neutrophils % 90 % LAB HEMATOLOGY METHOD 09/18/2024 8:[address] [facility] Lymphocytes % 6 % LAB HEMATOLOGY METHOD 09/18/2024 8:[address] [facility] Monocytes % 2 % LAB HEMATOLOGY METHOD 09/18/2024 8:[address] [facility] Eosinophils % 1 % LAB HEMATOLOGY METHOD 09/18/2024 8:[address] [facility] Basophils % 0 % LAB HEMATOLOGY METHOD 09/18/2024 8:[address] [facility] Immature Granulocytes % 1 % LAB HEMATOLOGY METHOD 09/18/2024 8:[address] [facility] Neutrophils Absolute 7.96(H) 1.60 - 6.10 10*3/uL LAB HEMATOLOGY METHOD 09/18/2024 8:[address] [facility] Lymphocytes Absolute 0.56(L) 1.20 - 3.90 10*3/uL LAB HEMATOLOGY METHOD 09/18/2024 8:[address] [facility] Monocytes Absolute 0.13(L) 0.30 - 0.90 10*3/uL LAB HEMATOLOGY METHOD 09/18/2024 8:[address] [facility] Eosinophils Absolute 0.07 0.00 - 0.50 10*3/uL LAB HEMATOLOGY METHOD 09/18/2024 8:[address] [facility] Basophils Absolute 0.02 0.00 - 0.10 10*3/uL LAB HEMATOLOGY METHOD 09/18/2024 8:[address] [facility] Immature Granulocytes Absolute 0.05 0.00 - 0.06 10*3/uL LAB HEMATOLOGY METHOD 09/18/2024 8:[address] [facility] Blood Venous blood specimen / Unknown Venipuncture / Unknown 09/18/2024 8:20 AM EDT 09/18/2024 8:[address] [facility] - 09/18/2024 8:38 AM EDT Therapeutic decision making should be based on absolute values, rather than percentages. us Miguel Lamb MD LAB BLOOD ORDERABLES Final Resu lt [facility] [address] [place] [address] * (ABNORMAL) Basic metabolic panel (09/18/2024 8:20 AM EDT) Glucose, Plasma 157(H) 74 - 99 mg/dL 09/18/2024 8:[address] [facility] BUN, Plasma 17 8 - 23 mg/dL 09/18/2024 8:[address] [facility] Creatinine, Plasma 1.05 0.60 - 1.10 mg/dL 09/18/2024 8:[address] [facility] BUN/Creatinine Ratio 16 09/18/2024 8:[address] [facility] Sodium, Plasma 138 136 - 145 mmol/L 09/18/2024 8:[address] [facility] Potassium, Plasma 4.5 3.6 - 4.9 mmol/L 09/18/2024 8:[address] [facility] Chloride, Plasma 100 97 - 107 mmol/L 09/18/2024 8:[address] [facility] CO2, Plasma 23 22 - 29 mmol/L 09/18/2024 8:[address] [facility] Anion Gap 15 6 - 16 mmol/L 09/18/2024 8:[address] [facility] Total Calcium, Plasma 9.4 8.9 - 10.2 mg/dL 09/18/2024 8:[address] [facility] eGFRcr 56.9 mL/min/1.7 3m*2 09/18/2024 8:[address] [facility] Comment:Reported eGFRcr in m L/min/1.73m2 is based the CKD-EPI 2020 equation that does not use a race coefficient. Blood Venous blood specimen / Unknown Venipuncture / Unknown 09/18/2024 8:20 AM EDT 09/18/2024 8:27 AM EDT us Miguel Lamb MD LAB BLOOD ORDERABLES Final Resu lt 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
--- OUTSIDE RECORDS SUMMARY | 2024-09-18 08:30 | XMS_ITS | Encounter Summary ---
Author Organization [facility] Address [address] [id number] Care Team Providers Care Manager Adobe Name Role Phone Mustapha James MD Primary Care Provider [phone] Miguel Lamb MD Unavailable [phone] Reason for Visit * Auth/Cert (Routine) Specialty Diagnoses / Procedures Referred By Contac t Referred To Contact Diagnoses S/P coronary artery stent placement S/P coronary artery stent placement [Z95.5] Procedures CO PRQ TRLUML CORONARY STENT W/ANGIO ONE ART/BRNCH Percutaneous coronary intervention Miguel Lamb MD [address] [place] [address] Phone: tel: fax: Cardiac Journeyman Wireman [address] [place] [address] Phone: tel: Referral ID Status Reason Start Date Expiration Date Visits Re quested Visits Authorized [id number] 1 1 Encounter Details Date Type Department Care Team (Late st Contact Info) Description 09/18/2024 8:30 AM EDT - 09/18/2024 10:30 AM EDT Surgery Cardiac Journeyman Wireman [address] [place] [address] Miguel Lamb MD [address] [place] [address] Percutaneous coronary intervention [43550 (CPT )] Surgery Details Date/Time Status Location OR Service Patient Class Case Class Case Type Trauma Case? 09/18/2024 8:30 AM Posted JULIETA BERRY PLANTER CH BERRY PLANTER [address] [facility] Outpatient Surgery E-Elect marija Panel 1 Procedure LRB Anes Op Region Wound Class Comments Percutaneous coronary intervention N/A Moderate Sedation Surgeon Surgeon Role Service Panel Miguel Lamb MD Primary Cardiovascular 1 Valerie Duke DO Fellow Cardiovascular 1 documented in this encounter [...] tablet by mouth daily. 07/24/2019 HYDROcodone-acet aminophen ([place]) 7.5-325 MG tablet Take 1 tablet by [...] from the original note were not included. [id number] Bleeding or Hematoma After Cardiac Catheterization You [...] on the site, and call 911 or havemeone take you to the emergency room. In [...] provider. Last Reviewed Date: 2024 00:00:00 ?? [id number] [employer]. All rights reserved. This information is not [...] been discussed with the patient and/or their claim service representative. All questions answered and they [...] 50 MCG/ACT nasal spray 1 spray, Daily Cjhabdznzpy-Rrrxqtoiq-Kndmgn (Trelegy Ellipta) 100-62.5-25 MCG/ACT aerosol powder Inhale. furosemide (LASIX) 20 mg, Daily HYDROcodone-acetaminophen ([place]) 7.5-325 MG tablet 1 tablet, Every 8 [...] Fellow, PGY-6, Department of Cardiovascular Medicine Pager: [phone] [1] Past Medical History: Diagnosis Date COPD (chronic obstructive pulmonary disease) ([facility]) HLD (hyperlipidemia) HTN (hypertension) Lung cancer (CMS/HCC) [...] PM EDT Appointment Cardiac Imaging [address] [place] [phone] 01/04/2025 3:30 PM EDT Office Visit [facility] Raritan Julieta [address] [facility]. [address] [place] [phone] Miguel Lamb MD [address] [place] [phone] documented as of this encounter Procedures Procedure [...] of an overlapping 3.5 x 12 mm [place] drug-eluting stent. Ostium flared to 4.0. 3. Serial 70% diffuse lesions of the mid-distal RCA s/p successful PCI with placement of overlapping 3.0 x 26 mm and 2.75 x 30 mm [place] drug-eluting stents (proximal-distal). Recommendations: 1. Post-PCI [...] After confirming therapeutic activated clotting time, a [employer] wire was advanced beyond the lesion and into the distal RCA. We advanced an Emerge RX 2.5 x 20 mm balloon into the mid-dstial RCA lesion and inflated to 12 rachael. The balloon was withdrawn slightly and serial inflations performed using the same technique. We then advanced a 2.75 mm x 30 mm [place] Man[place] drug eluting stent into the lesion and deployed at 12 rachael. We then placed and overlapping 3.0 x 26 mm [place] drug-eluting stent proximal to the aforementioend stent, inflated to 12 rachael. Post-dilation of the proximal-mid stent was then carried out using a 3.0 NC balloon. We then closely evaluated the ostium which appeared to have disease and appeared to be uncovered. We then advanced a 3.5 x 12 mm [place] drug- eluting stent in the proximal RCA [...] The patient was transferred back to the cathode maker holding area in good condition. Coronary Findings [...] * POCT ACT (09/18/2024 9:52 AM EDT) [facility] ACT (Low Range) 352 65 - 400 seconds 09/26/2024 9:35 AM EDT HEALTHCARE LAB Cleaner Housekeeping ID Fister-Mary Saenz 09/26/2024 9:35 AM EDT [...] RESULTS Final Result Performing Organization Address City/[facility]/ZIP Co de Phone Number HEALTHCARE LAB [address] LAB [address] [place] [address] * POCT ACT (09/18/2024 9:32 AM EDT) ACT (Low Range) 247 65 - 400 seconds 09/26/2024 9:35 AM EDT [facility] Cleaner Housekeeping ID Fister-Me tc, Mary 09/26/2024 9:35 AM [...] RESULTS Final Result Performing Organization Address City/[facility]/ZIP Co de Phone Number HEALTHCARE LAB [address] LAB [address] [place] [address] * (ABNORMAL) POCT creatinine (09/18/2024 8:24 AM EDT) [facility] Creatinine, Point of Care 1.2(H) 0.6 - 1.1 mg/dL 09/18/2024 8:28 AM EDT HEALTHCARE LAB POCT eGFR 48 mL/min/1. 73m*2 09/18/2024 8:28 AM EDT HEALTHCARE LAB Cleaner Housekeeping ID Rosangela Gallegos 09/18/2024 8:28 AM EDT HEALTHCARE LAB Device ID [id number] 09/18/2024 8:28 AM EDT HEALTHCARE LAB Comment 09/18/2024 8:28 AM EDT [facility] Comment:Testing performed on i-STAT at the point of care. Reported eGFRcr in mL/min/1.73m2 is based the CKD-EPI 2020 equation that does not use a race coefficient. Blood Venous blood specimen / Unknown 09/18/2024 8:24 AM EDT 09/18/2024 8:28 AM EDT us Miguel Lamb MD LAB POINT OF CARE TE ST DOCKED DEVICE UNSOLICITED RESULTS Final Result [facility]ALTH[facility]ARE [facility] [address] LAB [address] [place] [address] * (ABNORMAL) CBC and differential (09/18/2024 8:20 AM EDT) [facility] WBC Count 8.79 3.70 - 10.30 10*3/uL [...] Resu lt [facility] [address] [place] [address] * (ABNORMAL) Basic metabolic panel (09/18/2024 8:20 [...] Resu lt [facility] [address] [place] [address] documented in this encounter Visit Diagnoses Diagnosis S/P coronary artery stent placement- Primary Postsurgical percutaneous transluminal coronary angioplasty status Coronary artery disease involving [place] coronary artery of [place] heart with angina pectoris ([facility]) S/P coronary artery stent placement Postsurgical percutaneous [...] documented as of this encounter Care Teams Manager Adobe Relationship Specialty Start Date End Date Mustapha James MD [address] [place] [address] PCP - General 09/05/20 Miguel Lamb MD [address] [place] [phone] Referring Physician Interventional Cardiology 08/16/24 documented as of this encounter
--- OUTSIDE RECORDS SUMMARY | 2024-10-10 13:19 | XMS_ITS | Encounter Summary ---
Author Organization [facility] Address [address] [place] [address] Care Team Providers Care Tool Tender Name Role Phone Unavailable Primary Care Provider Unavailabl e Encounter Details Date Type Department Care Team (Late st Contact Info) Description 03/13/[address] 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 Adult Entered On: 03/13/2019 13:59 EST Performed On: 03/13/2019 13:53 EST by Susie Hernández RN Height and Weight, Clinical Dosing Height Source : Measured Height Entry Format : [place] Height, Feet : 0 ft(Converted to: 0 cm, 0 Inch) Height, Inches : 63 Inch(Converted to: 5 ft 3 Inch, 160.02 cm) Clinical Height : 160.02 cm Weight Source : Standing scale Weight Entry Format : [place] Clinical Dosing Weight : 85.95 kg Weight, Pounds : 189.1 lb Body Surface Area (BSA) : 1.89 m2 Body Mass Index : 33.6 kg/m2 (HI) [place] Body Weight : 52 kg Susie Hernández RN - 03/14/2019 11:07 EST Health Histories Smoking Status : Former smoker, quit more than 30 days ago Smokeless Tobacco Status : Never Implant/Device Type, General Magistrate and Model : neck fusion and lumbar fusion Susie Hernández RN - 03/13/2019 13:53 EST Social History (As Of: 03/13/2019 13:59:14 EST) Tobacco: Use in Last 12 Months: Cigarettes. Smoking Status Former smoker. Years of Use: 40. Packs/Tins Daily: 3. Used Tobacco, but Quit Yes. Last Used: currently quit, occasional cigarette. Second Hand Smoke Exposure: No. (Last Updated: 03/13/2015 12:16:30 EST by LATOSHA JOHNSON RN) 4 or less cigarettes(less than 1/4 pack)/day in last 30 days Smoking Status. Never Smokeless Tobacco Status. Years of Use: 54. Packs/Tins Daily: 1.5. Last Used: trying to quit- cut back sharply since Nov 2018. Comments: 02/09/2019 15:41 - MARY MCGRAW RN: using nicoderm patch regularly and occasional use of nicotine gum (Last Updated: 02/09/2019 15:41:06 EDT by MARY MCGRAW RN) Alcohol: Alcohol Use History No. (Last Updated: 09/30/2014 11:10:35 EDT by KAROLYN QUEVEDO RN) Substance Abuse: Drug Use Hx: No. Use in Last 12 Months: No. (Last Updated: 09/30/2014 11:10:41 EDT by KAROLYN QUEVEDO RN) Infectious Disease History Fever/Chills Last 48 Hours : No Susie Hernández RN - 03/14/2019 11:07 EST Infectious Disease History : Chicken pox/Shingles, Influenza, Measles, Mumps Travel To Regions with Travel Advisories : No Travel Outside [place] Within Last 30 Days : No Contact With Traveler to Advisory Region : No Tuberculosis Symptoms : None Susie Heránndez RN - 03/13/2019 13:53 EST Anesthesia/Transfusion History Family History of Anesthesia Reaction : Unknown Transfusion History : Prior anesthesia without reaction Family History of Anesthesia Reaction : None Susie Hernández RN - 03/13/2019 13:53 EST Advance Directive Patient has Advance Directive *Q : Yes, Advance Directive not with the patient Advance Directive Type : Living will Copy Advance Directive Verified/on Chart : No Susie Hernández RN - 03/13/2019 13:53 EST [place] Suicide Severity Rating Scale (C-SSRS) CSSRS Past Month Wish to be : No CSSRS Past Month Suicidal Thoughts : No CSSRS Lifetime Suicide Behavior : No Suicide Severity Rating Score : 0 Suicide Severity Rating : No Additional Care Required at this time Susie Hernández RN - 03/13/2019 13:53 EST Psychosocial History Do You Have a History of the Following? : Anxiety, Depression Currently in Unsafe Situation : No Susie Hernández RN - 03/13/2019 13:53 EST General Info Preferred Name : Jodi Support Person/Pt Rep Name : Christine shannon [phone] Want Family/Rep/Phys Notified of Admit : No Emergency Contact #1 : see above Emergency Contact #1 Phone Number : . Emergency Contact #1 Relationship : . Emergency Contact #2 : . Emergency Contact #2 Phone Number : .. Emergency Contact #2 Relationship : . Information Obtained From : Patient Primary Language : Namibian Preferred Communication Mode : Verbal Communication Barrier : None Susie Hernández RN - 03/13/2019 13:53 EST Kwesi Scale Kwesi Sensory Perception : Slightly limited Kwesi Moisture : Rarely moist Kwesi Activity : Walks occasionally Kwesi Mobility : Slightly limited Kwesi Nutrition : Excellent Kwesi Friction and Shear : No apparent problem Kwesi Score : 20 Susie Hernández RN - 03/14/2019 11:07 EST Sleep Apnea Risk Assmt BMI Greater Than 35 kg/m2 : No Neck Circumference Greater Than 40 cm : Yes STOP-BANG Sleep Apnea Risk Level Score : 3 Susie Hernández RN - 03/14/2019 11:07 EST Hx of Obstructive Sleep Apnea Diagnosis : No Snore Loudly : No Tired, Fatigued, or Sleepy During Day : No Observed Stopping Breathing During Sleep : No Have/Are Being Treated for Hypertension : Yes Age over 50 Years Old : Yes Gender Male : No Susie Hernández RN - 03/13/2019 13:53 EST documented in this encounter Plan of Treatment Not on file documented as of this encounter Visit Diagnoses Not on filedocumented in this encounter
--- OUTSIDE RECORDS SUMMARY | 2024-10-10 13:19 | XMS_ITS | Encounter Summary ---
Author Organization [employer] Address [address] [place] [address] Care Team Providers Care Director Inbound Sales Name Role Phone Unavailable Primary Care Provider Unavailabl e Encounter Details Date Type Department Care Team (Late st Contact Info) Description 03/14/2019 Transcribed Document [facility] [place] [facility] [address] [place] [address] ProviderRegina MD [address], [place] [address] Social History Tobacco Use Types Packs/Day Years Used Date Smoking Tobacco: Never Assessed Comments Unknown Sex and Gender Information Value Date Recorded Sex Assigned at Not on file Legal Sex Female 5:00 PM CDT Gender Identity Not on file Sexual Orientation Not on file documented as of this encounter Miscellaneous Notes * Cerner Conversion Note - Regina ProviderMD - 03/14/2019 12:37 PM [employer] [facility] Main OR IntraOp Summary Primary Physician: TONY PEÑA MD-SUR Finalized Date/Time: 03/15/19 11:29:27 Pt. Name: JODI GTZ SRIRAM Reynolds/Sex: 1955 Female Med Rec #: [id number] Physician: TONY PEÑA MD-SUR Financial #: [id number] Pt. Type: O Room/Bed: Admit/Disch: 03/14/19 09:48:00 - 03/14/19 17:30:00 Institution: [facility] IntraOp Case Attendance Entry 1 Entry 2 Entry 3 Case Attendee TONY PEÑA MD-SUR CALDWELL, JOSEPH A, CRNA BOWEN, JON B, MD-ANS Role Performed Surgeon/Proceduralist, MERCEDES/Nurse Flight Agent Anesthesiologist First Time In 03/14/19 12:18:00 03/14/19 12:18:00 11/20/19 12:18:00 Time Out 03/14/19 14:07:00 03/14/19 14:07:00 03/14/19 14:07:00 Procedure Aortogram Abdominal Aortogram Abdominal Aortogram Abdominal with Runoff(Left) with Runoff(Left) with Runoff(Left) Other Attendee Superficial Wound Closed By: Last Modified By: Gia Armendariz, Gia Liu, Gia Liu RN 03/14/19 14:07:56 03/14/19 14:07:56 03/14/19 14:07:56 Entry 4 Entry 5 Entry 6 Case Attendee KIERSTEN KHALIL, Gia Liu, Coco Hagan, Cardiovascular Fill Technician Role Performed Circulation Crew Leader, First Circulation Crew Leader, Second Fill Technician Time In 03/14/19 12:18:00 03/14/19 12:18:00 03/14/19 12:18:00 Time Out 03/14/19 14:07:00 03/14/19 14:07:00 03/14/19 14:07:00 Procedure Aortogram Abdominal Aortogram Abdominal Aortogram Abdominal with Runoff(Left) with Runoff(Left) with Runoff(Left) Other Attendee Superficial Wound Closed By: Last Modified By: Gia Armendariz RN Duncan, Richelle, RN Duncan, Richelle, RN 03/14/19 14:07:56 03/14/19 14:07:56 03/14/19 14:07:56 Entry 7 Case Attendee Mayra Castrejon [employer] Role Performed Fill Technician Time In 03/14/19 12:18:00 Time Out 03/14/19 14:07:00 Procedure Aortogram Abdominal with Runoff(Left) Other Attendee Superficial Wound Closed By: Last Modified By: Gia Armendariz RN 03/14/19 14:07:56 [facility] IntraOp Case Attendance Audit 03/14/19 14:07:56 Acetylene Plant Operator: [id number] Modifier: [id number] <+> Time Out 1 <*> Procedure Aortogram Abdominal with Runoff(Left) 2 <+> Time Out 2 <*> Procedure Aortogram Abdominal with Runoff(Left) 3 <+> Time Out 3 <*> Procedure Aortogram Abdominal with Runoff(Left) 4 <+> Time Out 4 <*> Procedure Aortogram Abdominal with Runoff(Left) 5 <+> Time Out 5 <*> Procedure Aortogram Abdominal with Runoff(Left) 6 <+> Time Out 6 <*> Procedure Aortogram Abdominal with Runoff(Left) 7 <+> Time Out 7 <*> Procedure Aortogram Abdominal with Runoff(Left) 03/14/19 13:11:30 Acetylene Plant Operator: [id number] Modifier: [id number] 1 <*> Procedure Aortogram Abdominal with Runoff(Left) 2 <*> Procedure Aortogram Abdominal with Runoff(Left) 3 <*> Procedure Aortogram Abdominal with Runoff(Left) 4 <*> Procedure Aortogram Abdominal with Runoff(Left) 5 <*> Procedure Aortogram Abdominal with Runoff(Left) 6 <+> Time In 6 <*> Procedure Aortogram Abdominal with Runoff(Left) 7 <+> Time In 7 <*> Procedure Aortogram Abdominal with Runoff(Left) 03/14/19 12:47:49 Acetylene Plant Operator: [id number] Modifier: [id number] <+> 6 Case Attendee <+> 6 Role Performed <+> 6 Procedure <+> 7 Case Attendee <+> 7 Role Performed <+> 7 Procedure 03/14/19 12:46:19 Acetylene Plant Operator: [id number] Modifier: [id number] <+> 1 Procedure 2 <*> Procedure Aortogram Abdominal with Runoff(Left) 3 <+> Time In 3 <*> Procedure Aortogram Abdominal with Runoff(Left) 4 <+> Time In 4 <*> Procedure Aortogram Abdominal with Runoff(Left) 5 <+> Time In 5 <*> Procedure Aortogram Abdominal with Runoff(Left) 03/14/19 12:45:34 Acetylene Plant Operator: [id number] Modifier: [id number] <+> Time In 2 <*> Procedure Aortogram Abdominal with Runoff(Left) <+> 3 Case Attendee <+> 3 Role Performed <+> 3 Procedure <+> 4 Case Attendee <+> 4 Role Performed <+> 4 Procedure <+> 5 Case Attendee <+> 5 Role Performed <+> 5 Procedure [facility] IntraOp Case Times Entry 1 Patient In Room Time 03/14/19 12:18:00 Out Room Time 03/14/19 14:07:00 Anesthesia Start Time 03/14/19 12:18:00 Stop Time 03/14/19 14:07:00 Anesthesia Ready 03/14/19 12:18:00 Surgery / Procedure Times Start Time 03/14/19 12:37:00 Stop Time 03/14/19 14:01:00 Last Modified By: Gia Armendariz RN 03/14/19 12:39:43 [facility] IntraOp Case Times Audit 03/14/19 14:07:55 Acetylene Plant Operator: [id number] Modifier: [id number] <+> 1 Out Room Time <+> 1 Stop Time <+> 1 Stop Time [facility] IntraOp Communication Entry 1 Entry 2 Communication To Family/Significant other Family/Significant other Comment START UPDATE Communication By Gia Armendariz RN Duncan, Richelle, RN Date and Time 03/14/19 12:45:00 03/14/19 13:49:00 Last Modified By: Gia Armendariz RN Duncan, Richelle, RN 03/14/19 12:48:01 03/14/19 13:50:06 [facility] IntraOp Communication Audit 03/14/19 13:50:06 Acetylene Plant Operator: [id number] Modifier: [id number] <+> 2 Communication By <+> 2 Date and Time <+> 2 Communication To <+> 2 Comment [facility] IntraOp Departure from OR Entry 1 Integumentary Assessment Integumentary WDL Assessment WDL Transfer/Handoff Transfer to Other Handoff Method Phone call Post-op Transport Stretcher/Gurney Via Patient Transport JACKIE BLANTON MD-ANS, Accompanied by EVERETT FREED CRNA, RESULTAY, JOSEFINA, RN Transfer/Handoff PT TRANSPORTED TO [facility], PT STABLE Last Modified By: Gia Armendariz RN 03/14/19 12:48:40 [facility] IntraOp Dressing and Packing Entry 1 Type Dressing Location OPSITE Wound Dressing Item 4x4's Applied By TONY PEÑA MD-JESUS Other Comments COVADERM Last Modified By: Gia Armendariz RN 03/14/19 12:48:56 [facility] IntraOp Fire Risk Assessment Entry 1 Fire Info Surgical Site or 0- No Incision Above the Xyphoid Open O2 Source 1- Yes (Mask or Cannula) Available Ignition 0- No (ESU, Laser, Light Source) Fire Risk 1 Assessment Score Fire Score Fire Risk Yes Assessment Complete Fire Risk KIERSTEN KHALIL RN Assessment Verified By Fire Risk 03/14/19 12:44:00 Assessment Verified Date/Time Fire Risk Standard Fire Yes Safety Precautions Followed Last Modified By: Gia Armendariz RN 03/14/19 12:49:12 [facility] IntraOp General Case Cytogenetics Laboratory Manager 1 Case Information OR OR 20 [facility] Case Level 1 Room Verified Yes Wound Class I - Clean Specialty SN General Anesthesia Type MAC ASA Class 3 Diagnosis Preop Diagnosis BILATERAL CLAUDICATION Postop Same As Preop Yes Postop Diagnosis BILATERAL CLAUDICATION Last Modified By: Gia Armendariz RN 03/14/19 13:06:23 [facility] IntraOp General Case Data Audit 03/14/19 13:07:04 Acetylene Plant Operator: [id number] Modifier: [id number] 1 <*> Preop Diagnosis RIGHT ILIAC ARTERY OCCLUSION 1 <*> Postop Diagnosis RIGHT ILIAC ARTERY OCCLUSION 03/14/19 13:06:23 Acetylene Plant Operator: [id number] Modifier: [id number] <+> 1 ASA Class <+> 1 Anesthesia Type <+> 1 Postop Same As Preop <+> 1 Preop Diagnosis <+> 1 Postop Diagnosis <+> 1 Room Verified [facility] IntraOp Implant Log Entry 1 Entry 2 Type Implant (Synthetic) Implant (Synthetic) Implant Log Implant Type Other Tissue Implant Type Implant DEVICE MYNX GUT CARRIER 6F/ 7F STENT VASC LS 5F 135cm Identification [id number] Description Implant Quantity 1 1 Implant Site LEFT GROIN LEFT SFA Implant Identification Model Number Implant Identification Serial Number Implant [id number] Identification Lot Number Implant Access Closure Cr Bard:Peripheral Vasc Identification Statistics Teacher Name: Implant [id number] Identification Catalog Number Implant Size Implant Has an Yes Yes Expiration Date Implant Expiration 01/22/21 08/18/20 Date Wasted Radioactive Material Time Implanted Tissue Implant Continue for Tissue Implant Documentation Tissue Identification Number Graft Prep Per Statistics Teacher Instructions: Tissue Preparation Method: Reconstitution Solution: Reconstitution Solution Lot Number Reconstitution Solution Expiration Date: Thawing Solution Thawing Solution Lot Number Thawing Solution Expiration Date Preparation Materials, Other Preparation Materials, Other Lot Number Preparation Materials, Other Expiration Date Tissue Prepared/Processed By Statistics Teacher Paperwork Completed Implant Type Comment Last Modified By: Gia Armendariz RN Duncan, Richelle, RN 03/14/19 13:46:31 03/14/19 13:48:58 [facility] IntraOp Implant Log Audit 03/14/19 13:48:58 Acetylene Plant Operator: [id number] Modifier: [id number] <+> 2 Implant Identification Description <+> 2 Implant Identification Lot Number <+> 2 Implant Identification Statistics Teacher Name: <+> 2 Implant Expiration Date <+> 2 Implant Site <+> 2 Implant Quantity <+> 2 Implant Identification Catalog Number <+> 2 Implant Has an Expiration Date <+> 2 Type [facility] IntraOp Intraoperative Assessment Entry 1 Handoff Method Bedside/Face to face, Online nursing summary Valid History / Yes Physical in Chart Preoperative Yes Checklist Reviewed/Evaluated Allergies Reviewed Yes Patient is Latex No Sensitive Isolation Not applicable Precautions Noted Level of WDL Consciousness (WDL = Alert, Oriented to Person, Place, and Time) Skin Assessment Yes Verified Present Upon IVs Arrival to OR Prosthetic/Assistive Hardware Devices Last Modified By: Gia Armendariz RN 03/14/19 13:07:39 [facility] IntraOp Intraoperative Equipment Entry 1 Equipment Intraop Monitoring Electrocardiogram Three lead placement (ECG) Electrode Placement Blood Pressure Non-Invasive BP Device Source Blood Pressure Arm, right upper Location Pulse Oximeter Hand, left Probe Site Antiembolic Devices Scopes Photo/Video Documentation Last Modified By: Gia Armendariz RN 03/14/19 13:08:03 [facility] IntraOp Medication Admin Entry 1 Entry 2 Medication/Irrigant CESAR VISIPAQUE 320MG 150 VERAPIMIL 5MG/2ML WITH 200ML --[id number] NITROGLYCERIN 100MCG/ML 10ML Combo Med List Time Administered Route of CONTRAST INTRAARTERIAL Administration Dose Dose 40 3 Unit of Measure ml ml Volume Administered By TONY PEÑA MD-SUR ABEDI, NICK NIMA, MD-SUR Procedure Irrigation Irrigant Volume In Irrigant Volume Out Last Modified By: Gia Armendariz RN Duncan, Richelle, RN 03/14/19 13:10:57 03/14/19 13:10:57 [facility] IntraOp Medication Admin Audit 03/14/19 13:58:22 Acetylene Plant Operator: [id number] Modifier: [id number] 1 <*> Dose 50 [facility] IntraOp Patient Positioning Entry 1 Procedure Aortogram Abdominal with Runoff(Left) Body Position Supine Left Arm Position Secured on padded arm board Right Arm Position Tucked and padded at side Left Leg Position Uncrossed, parallel Right Leg Position Uncrossed, parallel Feet Uncrossed Yes Pressure Points Yes Checked Positioning Devices Head Rest, Safety Strap, Thighs, Sled Arm Rest Device Position UNP'S Positioned By JACKIE BLANTON MD-ANS, KIERSTEN KHALIL RN, TONY PEÑA MD-JESUS Position Verified Positioning Yes Verified by Anesthesia Positioning Yes Verified by Surgeon Last Modified By: Gia Armendariz RN 03/14/19 13:11:17 [facility] IntraOp Sign In Entry 1 Patient, Site, Yes Procedure Identified Surgical Consent Yes Confirmed Relevant Surgical Yes Documents Available Surgical Site N/A Marked by person performing procedure Anesthesia Machine Yes Check Completed Medication Checks Yes Completed Allergies Yes Airway Difficult No Airway/Aspiration Risk Difficult Yes Airway/Aspiration Intervention Equipment Available Blood Loss Risk No Blood Loss Yes Intervention Equipment Prepared and Ready Blood Identifiers Not applicable Verified Per Policy Hypothermia Risk Yes Warming Measures Yes Taken Last Modified By: Gia Armendariz RN 03/14/19 13:11:29 [facility] IntraOp Sign Out Entry 1 RN Confirmation Surgical Yes Procedure(s) Identified Instrument, Sponge N/A and Sharps Counts Correct/Documented Equipment Problems N/A Documented Specimen Labeled N/A Correctly Urinary Catheter N/A Documented in IView House Patient Yes Recovery Concerns Reviewed with Anesthesia Provider, Surgeon and RN House Patient Yes Management Concerns Reviewed with Anesthesia Provider, Surgeon and RN Safety Checklist Yes Elements Complete? Sign Out Comment REPORT TO KAYLEN IN [facility] RN Sign Out KIERSTEN KHALIL RN Signature RN Sign Out 03/14/19 14:00:00 Signature Date/Time Plan of Care Outcome - Fire Risk OUTCOME STATEMENT: Goal met Patient is free from injury related to surgical fire Plan of Care Outcome - Pt Positioning OUTCOME STATEMENT: Goal met Absence of signs and symptoms of positioning injury. Plan of Care Outcome - Skin Prep OUTCOME STATEMENT: Goal met Intraoperative care is consistent with measures to prevent infection Plan of Care Outcome - Xray/Images OUTCOME STATEMENT: Goal met Absence of observable signs or symptoms of radiation injury Plan of Care Outcome - Counts OUTCOME STATEMENT: Goal met Absence of signs and symptoms of injury related to extraneous objects Last Modified By: Gia Armendariz RN 03/14/19 13:11:49 [facility] IntraOp Sign Out Audit 03/14/19 14:01:07 Acetylene Plant Operator: [id number] Modifier: [id number] <+> 1 Sign Out Comment <+> 1 RN Sign Out Signature Date/Time [facility] IntraOp Skin Prep Entry 1 Procedure Aortogram Abdominal with Runoff(Left) Prescribed N/A Pre-Surgical Prep Completed Prep Area LEFT ARM AND HAND TO AXILLA, BILATERAL GROINS, LEFT FOOT Intraop Prep Integumentary WDL Assessment WDL Prep Agents Chloraprep Prep by Gia Armendariz RN Hair Removal Methods No hair removal performed Last Modified By: Gia Armendariz RN 03/14/19 13:12:51 [facility] IntraOp Skin Prep Audit 03/14/19 13:29:16 Acetylene Plant Operator: [id number] Modifier: [id number] 1 <*> Prep Area LEFT ARM AND HAND TO AXILLA, BILATERAL GROINS 1 <*> Procedure Aortogram Abdominal with Runoff(Left) [facility] IntraOp Surgical Procedures Entry 1 Procedure Aortogram Abdominal with Runoff Modifiers Left Additional L RADIAL ACCESS W/ Procedure ULTRASOUND GUIDANCE, L Description UPPER EXTREMITY ANGIOGRAM, CATHETER PLACEMENT IN AORTA; L FEM ACCESS W/ ULTRASOUND GUIDANCE, L LEG ANGIOGRAM; L A.T. ACCESS W/ ULTRASOUND ACCESS & STENT Primary Procedure Yes Primary Surgeon TONY PEÑA MD-JESUS Start 03/14/19 12:37:00 Stop 03/14/19 14:01:00 Anesthesia Type MAC Specialty SN General Wound Class I - Clean Last Modified By: Gia Armendariz RN 03/14/19 13:37:02 General Comments: LEFT RADIAL ACCESS UNDER ULTRASOUND GUIDANCE, LEFT UPPER EXTREMITY ANGIOGRAM, CATHETER PLACEMENT WITHIN AORTA; LEFT FEMORAL ACCESS UNDER ULTRASOUND GUIDANCE, LEFT LEG ANGIOGRAM; LEFT ANTERIOR TIBIAL ACCESS UNDER ULTRASOUND GUIDANCE, LEFT ANTERIOR TIBIAL ARTERY ANGIOPLASTY, LEFT SUPERFICIAL FEMORAL ARTERY ANGIOPLASTY AND STENTING [facility] Intra Surgical Procedures Audit 03/14/19 14:07:58 Acetylene Plant Operator: [id number] Modifier: [id number] 1 <*> Stop 03/14/19 13:37:02 Acetylene Plant Operator: [id number] Modifier: [id number] 1 <*> Procedure Aortogram Abdominal with Runoff 1 <*> Procedure Aortogram Abdominal with Runoff 1 <*> Procedure Aortogram Abdominal with Runoff 1 <*> Procedure Aortogram Abdominal with Runoff 1 <*> Procedure Aortogram Abdominal with Runoff 1 <*> Procedure Aortogram Abdominal with Runoff 1 <*> Additional Procedure Description L RADIAL ACCESS W/ ULTRASOUND GUIDANCE, L UPPER EXTREMITY ANGIOGRAM, CATHETER PLACEMENT IN AORTA; L FEMORAL ACCESS W/ ULTRASOUND GUIDANCE, L LEG ANGIOGRAM; L ACCESS W/ ULTRASOUND ACCESS 1 <*> Additional Procedure Description L RADIAL ACCESS W/ ULTRASOUND GUIDANCE, L UPPER EXTREMITY ANGIOGRAM, CATHETER PLACEMENT IN AORTA; L FEMORAL ACCESS W/ ULTRASOUND GUIDANCE, L LEG ANGIOGRAM; L ACCESS W/ ULTRASOUND ACCESS 1 <*> Additional Procedure Description L RADIAL ACCESS W/ ULTRASOUND GUIDANCE, L UPPER EXTREMITY ANGIOGRAM, CATHETER PLACEMENT IN AORTA; L FEMORAL ACCESS W/ ULTRASOUND GUIDANCE, L LEG ANGIOGRAM; L ACCESS W/ ULTRASOUND ACCESS 1 <*> Additional Procedure Description L RADIAL ACCESS W/ ULTRASOUND GUIDANCE, L UPPER EXTREMITY ANGIOGRAM, CATHETER PLACEMENT IN AORTA; L FEMORAL ACCESS W/ ULTRASOUND GUIDANCE, L LEG ANGIOGRAM; L ACCESS W/ ULTRASOUND ACCESS 1 <*> Additional Procedure Description L RADIAL ACCESS W/ ULTRASOUND GUIDANCE, L UPPER EXTREMITY ANGIOGRAM, CATHETER PLACEMENT IN AORTA; L FEMORAL ACCESS W/ ULTRASOUND GUIDANCE, L LEG ANGIOGRAM; L ACCESS W/ ULTRASOUND ACCESS 1 <*> Additional Procedure Description L RADIAL ACCESS W/ ULTRASOUND GUIDANCE, L UPPER EXTREMITY ANGIOGRAM, CATHETER PLACEMENT IN AORTA; L FEMORAL ACCESS W/ ULTRASOUND GUIDANCE, L LEG ANGIOGRAM; L ACCESS W/ ULTRASOUND ACCESS 03/14/19 13:28:04 Acetylene Plant Operator: [id number] Modifier: [id number] 1 <*> Procedure Aortogram Abdominal with Runoff 1 <*> Additional Procedure Description LEFT RADIAL ACCESS UNDER ULTRASOUND GUIDANCE WITH LEFT UPPER EXTREMITY ANGIOGRAM, CATHETER PLACEMENT WITHIN AORTA; LEFT ACCESS UNDER ULTRASOUND GUIDANCE WITH [facility] IntraOP Time Out Entry 1 Procedure to be Aortogram Abdominal Performed with Runoff(Left) Time Out Time Out Pause Time 03/14/19 12:36:00 All activity Yes suspended (unless life threatening emergency) Team Verbally Correct patient Confirms Information identity, Correct side and site are marked, Consent form is present and accurate, Agreement on the procedure to be done, Correct patient position, Relevant images/results properly labeled/appropriately displayed, Confirm antibiotics have been administered, Confirm the skin prep has dried, Confirm prosthesis/implant/devic e is present, Performed in location of procedure after prepped/draped, Reconcile problems if responses among team members differ Antibiotic Yes Prophylaxis Administered Or In Progress Within the Last 60 Minutes Beta Camilla Yes Administered Venous Yes Thromboembolism Prophylaxis Required Anticipated Critical Events Surgeon None expected Anesthesia Provider None expected Nursing Assures Sterility of instruments Essential Imaging N/A Labeled and Displayed Last Modified By: Gia Armendariz RN 03/14/19 13:16:01 [facility] IntraOp X-Ray and Images Entry 1 X-Ray/Imaging Type Fluoroscopy Fluoroscopy Type Fixed Site OPSITE Seismic Observer Name Coco Pfeiffer, Cardiovascular Fill Technician Protective Devices Yes Used Exposure Time 6.6 MIN Last Modified By: Gia Armendariz RN 03/14/19 13:54:17 [facility] IntraOp X-Ray and Images Audit 03/14/19 13:54:17 Acetylene Plant Operator: [id number] Modifier: [id number] <+> 1 Exposure Time Case Comments <None> Finalized By: JONY MATHEW Document Signatures Signed By: Gia Armendariz RN 03/14/19 14:08 JONY MATHEW 03/15/19 11:29 Unfinalized History Date/Time Username Reason for Unfinalizing Freetext Reason for Unfinalizing 03/15/19 11:24 [email or web address] Correct Billing Electronically signed by Mickey [facility] Conversion Food Beverage Attendant Cerner at 08/13/2022 11:11 AM CDT documented in this encounter Plan of Treatment Not on file documented as of this encounter Visit Diagnoses Not on filedocumented in this encounter
--- OUTSIDE RECORDS SUMMARY | 2024-10-10 13:20 | XMS_ITS | Encounter Summary ---
Author Organization [employer] Address [address] [place] [address] Care Team Providers Care Call Or Contact Centre Team Leader Name Role Phone Unavailable Primary Care Provider Unavailabl e Encounter Details Date Type Department Care Team (Late st Contact Info) Description 03/14/2019 Transcribed Document [facility] [place] [address] [place] [address] ProviderRegina MD [address], [place] [id number] Social History Tobacco Use Types Packs/Day Years Used Date Smoking Tobacco: Never Assessed Comments Unknown Sex and Gender Information Value Date Recorded Sex Assigned at Not on file Legal Sex Female 5:00 PM CDT Gender Identity Not on file Sexual Orientation Not on file documented as of this encounter Miscellaneous Notes * Cerner Conversion Note - Regina ProviderMD - 03/14/2019 12:37 PM MANAGER OF INTERNAL AUDIT [facility] Main OR Preop Summary Primary Physician: TONY PEÑA MD-SUR Finalized Date/Time: 03/14/19 13:13:44 Pt. Name: THOMAS GTZ SRIRAM Reynolds/Sex: 1955 Female Med Rec #: [id number] Physician: TONY PEÑA MD-SUR Financial #: [id number] Pt. Type: O Room/Bed: Admit/Disch: 03/14/19 09:48:00 - Institution: [facility] PreOp Case Times Entry 1 In Preop 03/14/19 10:14:00 Ready for Holding n/a Room Patient Ready for 03/14/19 11:25:00 Surgery Patient Out of Preop 03/14/19 12:14:00 Patient Out of n/a Holding Room Last Modified By: Susie Hernández, RN 03/14/19 13:13:43 [facility] PreOp Case Times Audit 03/14/19 13:13:43 Lay Up Operator: [id number] Modifier: [id number] <+> 1 Patient Out of Preop 03/14/19 11:25:55 Lay Up Operator: [id number] Modifier: [id number] <+> 1 Patient Ready for Surgery Finalized By: Susie Hernández, RN Document Signatures Signed By: Susie Hernández RN 03/14/19 13:13 Electronically signed by Mickey [facility] Conversion Conche Operator Cerner at 08/13/2022 11:17 AM CDT documented in this encounter Plan of Treatment Not on file documented as of this encounter Visit Diagnoses Not on filedocumented in this encounter
--- OUTSIDE RECORDS SUMMARY | 2024-10-10 13:20 | XMS_ITS | Encounter Summary ---
Author Organization [employer] Address [address] [place] [address] Care Team Providers Care Pocket Closer Name Role Phone Unavailable Primary Care Provider Unavailabl e Encounter Details Date Type Department Care Team (Late st Contact Info) Description 03/14/2019 Transcribed Document [facility] Radiology [address] [place] [address] Martinez Miller MD [facility] [place] [address] Social History Tobacco Use Types Packs/Day Years Used Date Smoking Tobacco: Never Assessed Comments Unknown Sex and Gender Information Value Date Recorded Sex Assigned at Not on file Legal Sex Female 5:00 PM CDT Gender Identity Not on file Sexual Orientation Not on file documented as of this encounter Miscellaneous Notes * Cerner Conversion Note - Martinez Miller MD - 03/14/2019 1:31 PM EST Patient: THOMAS GTZ Age: 63 years Sex: Female : 1955 Associated Diagnoses: None Author: CHRIS LOVING, PLANT CHANGER Chief Complaint PAD Review of Systems ROS reviewed as documented in chart no change since last seen by surgeon Health Status Allergies: Allergic Reactions (Selected) Severe Statins- Had a blackout, muscle pain and dizziness. Severity Not Documented Contrast Dye- No reactions were documented. Decongestant- No reactions were documented. Demerol HCl- Hallucinations. Iodine- Anaphylaxis., Allergies (5) Active Reaction statins Muscle pain Contrast Dye None Documented Decongestant None Documented Demerol HCl HALLUCINATIONS iodine Anaphylaxis Current medications: (Selected) Inpatient Medications Ordered Ancef: 2 Gram, 50 mL, 100 mL/Hr, IV Piggyback, 1-Time Lactated Ringers Injection intravenous solution 1,000 mL: 20 mL/Hr, IntraVENous Normal Saline Flush: 10 mL, IV Push, 1-Time lidocaine 1% preservative-free injectable solution: 0.5 mL, IntraDermal, 1-Time Documented Medications Documented Benadryl: See Instructions, 50 mg Oral at 1800 and MN day before procedure and 0600 on DOS, 0 Refill(s) CeleXA: 20 mg, Oral, Daily, 0 Refill(s) Daliresp: 500 mcg, Oral, Daily, 0 Refill(s) Dulcolax Stool Softener: 2 caps, Oral, At Bedtime, pt usually takes one but occ two, 0 Refill(s) Flonase: 2 sprays, Nostrils Both, BID, 0 Refill(s) Lasix: 20 mg, Oral, Daily, 0 Refill(s) Motrin IB: 600 mg, Oral, TID, PRN: as needed for pain, 0 Refill(s) Non Formulary Medication: hair, skin and nails, Oral, Daily, 0 Refill(s) Dayton 7.5 mg-325 mg oral tablet: 1 Tab, Oral, TID, PRN: as needed for pain, 0 Refill(s) Plavix: 75 mg, Oral, Daily, 0 Refill(s) Prevacid: 30 mg, Oral, Daily, 0 Refill(s) Spiriva: 18 mcg, Inhalation, BID, 0 Refill(s) Symbicort 160 mcg-4.5 mcg/inh inhalation aerosol: 2 Puff, Inhalation, BID, 0 Refill(s) Tagamet HB: See Instructions, 300 mg Oral at 1800 and MN day prior to procedure and 0600 on DOS, 0 Refill(s) Valium: 5 mg, Oral, QID, PRN: as needed for anxiety, 0 Refill(s) Vitamin D3: 2,000 Int Units, Oral, Tuesday, 0 Refill(s) Voltaren 1% topical gel: 2 Gram, Topical, QID, to feet and legs as needed, 0 Refill(s) ZyrTEC: 10 mg, Oral, BID, 0 Refill(s) aspirin: 81 mg, Oral, At Bedtime, 0 Refill(s) folic acid: 0.4 mg, Oral, Daily, 0 Refill(s) lisinopril: 20 mg, Oral, Daily, 0 Refill(s) nicotine 21 mg/24 hr transdermal film, extended release: 1 Patch, TransDermal, Daily, 0 Refill(s) predniSONE: See Instructions, 50 mg Oral at 1800 and MN day before procedure and 0600 on DOS, 0 Refill(s) tiZANidine: 2 mg, Oral, TID, 1/2-1 tab, usually only at bedtime, if she takes it, PRN: as needed for muscle spasm, 0 Refill(s), Home Medications (24) Active aspirin 81 mg, Oral, At Bedtime Benadryl See Instructions CeleXA 20 mg, Oral, Daily Daliresp 500 mcg, Oral, Daily Dulcolax Stool Softener 2 caps, Oral, At Bedtime Flonase 2 sprays, Nostrils Both, BID folic acid 0.4 mg, Oral, Daily Lasix 20 mg, Oral, Daily lisinopril 20 mg, Oral, Daily Motrin IB 600 mg, PRN, Oral, TID nicotine 21 mg/24 hr transdermal film, extended release 1 Patch, TransDermal, Daily Non Formulary Medication hair, skin and nails, Oral, Daily Dayton 7.5 mg-325 mg oral tablet 1 Tab, PRN, Oral, TID Plavix 75 mg, Oral, Daily predniSONE See Instructions Prevacid 30 mg, Oral, Daily Spiriva 18 mcg, Inhalation, BID Symbicort 160 mcg-4.5 mcg/inh inhalation aerosol 2 Puff, Inhalation, BID Tagamet HB See Instructions tiZANidine 2 mg, PRN, Oral, TID Valium 5 mg, PRN, Oral, QID Vitamin D3 2,000 Int Units, Oral, Tuesday Voltaren 1% topical gel 2 Gram, Topical, QID ZyrTEC 10 mg, Oral, BID , Medications (4) Active Scheduled: (3) #NaCl 0.9% *FLUSH* inj 10 mL 10 mL, IV Push, 1-Time ceFAZolin/D5w 2 Gram 50 mL, IV Piggyback, 1-Time lidocaine 1% *PF* inj 2 mL 0.5 mL, IntraDermal, 1-Time Continuous: (1) lactated ringers 1,000 mL 1,000 mL, IntraVENous, 20 mL/Hr PRN: (0) Problem list: All Problems Cervical spinal stenosis / SNOMED CT 439408204 / Confirmed Smoker / SNOMED CT 895141866 / Confirmed Sinusitis / SNOMED CT 01320746 / Confirmed Seasonal allergies / SNOMED CT 308395691 / Confirmed Restless leg / SNOMED CT 46010332 / Confirmed Colon polyps / SNOMED CT 215751358 / Confirmed Pneumonia / SNOMED CT 810968222 / Confirmed Peripheral vascular disease / SNOMED CT 4422455061 / Confirmed Peptic ulcer / SNOMED CT 55168958 / Confirmed Osteoporosis / SNOMED CT 737678531 / Confirmed Neuropathy, R arm / SNOMED CT 0779467310 / Confirmed Migraines / SNOMED CT 75177572 / Confirmed Skin cancer / SNOMED CT 1805178454 / Confirmed Hypertension / SNOMED CT 0256126552 / Confirmed Hyperlipidemia / SNOMED CT 18592994 / Confirmed Elevated cholesterol / SNOMED CT 47618699 / Confirmed Hiatal hernia / SNOMED CT 120884292 / Confirmed Hemorrhoids / SNOMED CT 459260598 / Confirmed H/O: TIA / SNOMED CT 735170480 / Confirmed GERD (gastroesophageal reflux disease) / SNOMED CT 191164276 / Confirmed Gastritis / SNOMED CT 2671706 / Confirmed Fibromyalgia / SNOMED CT 10351719 / Confirmed Fibroids / SNOMED CT 867844417 / Confirmed Endometriosis / SNOMED CT 3028628212 / Confirmed Diverticulitis / SNOMED CT 617213282 / Confirmed Sinus problem / SNOMED CT 7675542182 / Confirmed Known medical problems / SNOMED CT 067298696 / Confirmed white spots on MRI Known medical problems / SNOMED CT 992502168 / Confirmed anti nuclear A and A antibodies Constipation / SNOMED CT 64662260 / Confirmed COPD (chronic obstructive pulmonary disease) / SNOMED CT 22685339 / Confirmed Chronic cough / SNOMED CT 266863484 / Confirmed Chronic constipation / SNOMED CT 988044508 / Confirmed Stroke, possible / SNOMED CT 390007483 / Confirmed Bursitis / SNOMED CT 688470655 / Confirmed Bronchitis / SNOMED CT 42385644 / Confirmed Back pain / SNOMED CT 619332609 / Confirmed At risk for sleep apnea / IMO 41813600 / Confirmed Arthritis / SNOMED CT 7889707 / Confirmed Anemia / SNOMED CT 980178898 / Confirmed Allergic rhinitis / SNOMED CT 470556655 / Confirmed, Active Problems (40) Allergic rhinitis Anemia Arthritis At risk for sleep apnea Back pain Bronchitis Bursitis Cervical spinal stenosis Chronic constipation Chronic cough Colon polyps Constipation COPD (chronic obstructive pulmonary disease) Diverticulitis Elevated cholesterol Endometriosis Fibroids Fibromyalgia Gastritis GERD (gastroesophageal reflux disease) H/O: TIA Hemorrhoids Hiatal hernia Hyperlipidemia Hypertension Known medical problems Known medical problems Migraines Neuropathy, R arm Osteoporosis Peptic ulcer Peripheral vascular disease Pneumonia Restless leg Seasonal allergies Sinus problem Sinusitis Skin cancer Smoker Stroke, possible Histories Past Medical History: No active or resolved past medical history items have been selected or recorded. Family History: No family history items have been selected or recorded. Procedure history: ACD & F on 10/04/2014 at 59 Years. R cheek cystectomy on 03/13/2013 at 57 Years. fistulectomy, (x7) on 03/13/2012 at 56 Years. left knee arthroscopy on 03/13/2006 at 50 Years. left wrist surgery on 03/13/1996 at 40 Years. hysterectomy on 10/11/1993 at 38 Years. tubal ligation on 03/13/1975 at 19 Years. hemorrhoidectomy, numerous. L1 through S1 lumbar rodding and screws. neck surgery. aortogram stent bilateral legs. Physical Examination VS/Measurements Vital Signs/Vital Measures 03/14/2019 11:00 EST Systolic Blood Pressure 139 mmHg Diastolic Blood Pressure 66 mmHg Temperature Source Temporal artery scanning Temperature Mode Fahrenheit Temperature, Fahrenheit 99.2 Deg F Clinical Temperature, C 37.3 Deg C Heart Rate Monitored 90 bpm Respiratory Rate 20 Breaths/Min Oxygen Saturation 95 % Oxygen Therapy Mode Room air , Vitals Signs (last 24 hrs) Last Charted Minimum Maximum Temp 99.2 (MAR 14 11:00) 99.2 (MAR 14 11:00) 99.2 (MAR 14 11:00) Mon HR 90 (MAR 14 11:00) 90 (MAR 14 11:00) 90 (MAR 14 11:00) Resp Rate 20 (MAR 14 11:00) 20 (MAR 14 11:00) 20 (MAR 14 11:00) SBP 139 (MAR 14 11:00) 139 (MAR 14 11:00) 139 (MAR 14 11:00) DBP 66 (MAR 14 11:00) 66 (MAR 14 11:00) 66 (MAR 14 11:00) SpO2 95 (MAR 14 11:00) 95 (MAR 14 11:00) 95 (MAR 14 11:00) , Measurements from flowsheet : Measurements 03/13/2019 13:53 EST Height Source Measured Height Entry Format [place] Height/Length, IRISH (ft) 0 ft Height/Length IRISH 63 Inch CLINICALHEIGHT 160.02 cm [place] Body Weight 52 kg Weight Source Standing scale Weight Entry Format [place] Weight Taiwanese lb 189.1 lb CLINICALWEIGHT 85.95 kg Body Surface Area (BSA) 1.89 m2 Body Mass Index 33.6 kg/m2 HI General: Alert and oriented, No acute distress, obese. Eye: Pupils are equal, round and reactive to light, Extraocular movements are intact, glasses. HENT: Normocephalic, Normal hearing. Neck: Supple, Non-tender. Respiratory: Respirations are non-labored, wheezes throughout. Cardiovascular: Normal rate, Regular rhythm, No murmur, No gallop, No edema, phoebe LE pedal pulses + per doppler. Gastrointestinal: Soft, Non-tender. Genitourinary: No costovertebral angle tenderness. Lymphatics: No lymphadenopathy neck, axilla, groin. Musculoskeletal: Normal range of motion, LLE weakness, uses cane. Integumentary: Warm, Dry, [place]. Neurologic: Alert, Oriented. Psychiatric: Cooperative, Appropriate mood & affect. Review / Management Results review: No qualifying data available, Lab results 03/14/2019 11:13 EST eGFR 102 mL/min/1.73m2 eGFR NonAfrican 84 mL/min/1.73m2 Potassium POC 4.5 mmol/L Glucose POC 147 mg/dL HI Creatinine POC 0.7 mg/dL Hematocrit POC 36.0 % LOW Hemoglobin POC 12.2 Gram/dL . Impression and Plan Condition: Stable. documented in this encounter Plan of Treatment Not on file documented as of this encounter Visit Diagnoses Not on filedocumented in this encounter
--- OUTSIDE RECORDS SUMMARY | 2024-10-10 13:20 | XMS_ITS | Encounter Summary ---
Author Organization Healthcare Address [address] [place] [address] Care Team Providers Care Store Shopper Name Role Phone Mustapha James MD Primary Care Provider [phone] Encounter Details Date Type Department Care Team (Latest Contact Info) Description 08/15/2024 Travel Social History Tobacco Use Types Packs/Day Years [...] on file documented as of this encounter Plan of Treatment Upcoming Encounters Date Type Department Care Team (Late st Contact Info) Description 01/04/2025 2:00 PM EDT Appointment Cardiac Imaging [address] [place] [address] 01/04/2025 3:30 PM EDT Office Visit [facility] [address] [place] [address] Miguel Lamb MD [address] [place] [phone] documented as of this encounter Visit Diagnoses Not on filedocumented in this encounter Additional Health Concerns Assessment Noted Time PHQ-9 Depression Total Score: 0 07/21/19 25 11:35 AM EDT A fall risk assessment has been complete d for the patient 08/15/2024 10:46 AM EDT A Body Mass Index follow-up plan has been documented for the patient 08/15/2024 11:19 AM EDT documented as of this encounter Care Teams Store Shopper Relationship Specialty Start Date End Date Mustapha James MD [address] [place] [address] PCP - General 09/05/20 documented as of this encounter
--- OUTSIDE RECORDS SUMMARY | 2024-10-10 13:20 | XMS_ITS | Encounter Summary ---
Author Organization [employer] Address [address] [place] [address] Care Team Providers Care Product Development Actuary Name Role Phone Unavailable Primary Care Provider Unavailabl e Encounter Details Date Type Department Care Team (Late st Contact Info) Description 03/14/2019 Transcribed Document [facility] Radiology [address] [place] [address] Martinez Miller MD [facility] [place] [address] Social History Tobacco Use Types Packs/Day Years Used Date Smoking Tobacco: Never Assessed Comments Unknown Sex and Gender Information Value Date Recorded Sex Assigned at Not on file Legal Sex Female 5:00 PM CDT Gender Identity Not on file Sexual Orientation Not on file documented as of this encounter Miscellaneous Notes * Cerner Conversion Note - Martinez Miller MD - 03/14/2019 3:47 PM EST DATE OF PROCEDURE: 03/14/2019 SURGEON: Martinez Miller MD PREOPERATIVE DIAGNOSIS: Bilateral lower extremity lifestyle-limiting claudication. POSTOPERATIVE DIAGNOSIS: Bilateral lower extremity lifestyle-limiting claudication. PROCEDURES PERFORMED: 1. Ultrasound-guided left radial access. 2. Ultrasound-guided left femoral access in antegrade fashion. 3. Ultrasound-guided left dorsalis pedis access. 4. Left upper extremity angiogram. 5. Catheter placement within the abdominal aorta with aortography. 6. Left superficial femoral artery stent and angioplasty. OPERATIVE INDICATION: The patient is a 63-year-old female with chronic history of tobacco use, who presents with debilitating lower extremity claudication and initially had rest pain. She has had successful percutaneous treatment of an occluded right iliac artery through the right femoral artery. She presents now with continuation of debilitating claudication in the left leg, now worse in the right. 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 She has been offered radial access for treatment of this. OPERATIVE FINDINGS: 1. Successful left radial access under ultrasound guidance. 2. A tortuous proximal radial artery with the area of stenosis, which would not allow for placement and advancement of a 6-Pashto sheath. 3. Catheter placement within the aorta. 4. Aortography demonstrating patency of bilateral common iliac artery stents. 5. Inability to access the occluded left superficial femoral artery through an antegrade fashion. 6. Successful recanalization of occluded superficial femoral artery through pedal access and placement of a 5 x170 LifeStent. OPERATIVE DESCRIPTION: The patient was taken back to the assistant laboratory director and placed in supine position. Following IV sedation, left wrist and groins were widely prepped and draped in standard sterile fashion. Under ultrasound guidance, the left radial artery was accessed. Imaging was documented within the chart. Left upper extremity angiogram demonstrated patency of the left radial interosseous and ulnar. There was a tortuous proximal aspect at the radial artery. This was straightened with our [employer] Advantage. This was initially after advancement of the catheter within the descending thoracic aorta. The catheter was advanced within the aorta and stiff wire was exchanged. Attempts to advance a radio to peripheral 6-Pashto sheath was performed, fortunately successful. This got hung up at the junction of the radial and brachial artery. Multiple attempts were unsuccessful to advance this. This was removed. Manual compression was applied to the radial access site as well as the brachial artery. A radial vein was applied. Under ultrasound guidance, antegrade access was achieved within the left common femoral artery. Multiple attempts to cross the flush occlusion of the superficial femoral artery through this access was unsuccessful. At this point, her left foot was widely prepped and draped in a standard sterile fashion. Attempts to access posterior tibial artery were unsuccessful. The dorsalis pedis was accessed successfully with a micropuncture wire. A low-profile 6-Pashto sheath was placed. Left lower extremity angiogram demonstrated severe stenosis of the radial artery greater than 90% at its origin. Occlusion of the peroneal and posterior tibial artery, which appeared chronic. Wire was able to traverse to the anterior tibial artery. 3 mm standard balloon angioplasty of the anterior tibial artery was performed. This allowed for catheter placement in a retrograde fashion to the popliteal artery reentering the common femoral artery. The entirety of the SFA and distal popliteal was angioplastied with 5 mm balloon. There was severe residual stenosis within the proximal margin. This was treated with a 5 x 170 LifeStent, post-dilated with 5 mm balloon up to 18 atmospheres. Completion angiogram demonstrated normal flow within the previously occluded superficial femoral artery. Left femoral antegrade sheath was removed. Mynx closure device was used to achieve hemostasis. Left pedal access was removed and a narrow radial band was applied to achieve hemostasis. The patient was taken back to Recovery in stable condition. No immediate complications. /[id number] Martinez Miller MD NNA/AQ / NNAlisa / MODL /[id number] documented in this encounter Plan of Treatment Not on file documented as of this encounter Visit Diagnoses Not on filedocumented in this encounter
--- OUTSIDE RECORDS SUMMARY | 2024-10-10 13:20 | XMS_ITS | Encounter Summary ---
Author Organization [employer] Address [address] [place] [address] Care Team Providers Care Modern Languages Professor Name Role Phone Unavailable Primary Care Provider Unavailabl e Encounter Details Date Type Department Care Team (Late st Contact Info) Description 03/14/2019 Transcribed Document [facility] Family Medicine [address] [place] [address] ProviderRegina MD [address] [place] [address] Social History Tobacco Use Types Packs/Day Years Used Date Smoking Tobacco: Never Assessed Comments Unknown Sex and Gender Information Value Date Recorded Sex Assigned at Not on file Legal Sex Female 5:00 PM CDT Gender Identity Not on file Sexual Orientation Not on file documented as of this encounter Miscellaneous Notes * Cerner Conversion Note - Regina Henley MD - 03/14/2019 4:22 PM 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 [facility] [place] [address] THOMAS GTZ SRIRAM :1955 Visit Time:03/14/2019 Your Visit Summary Your Care Team Admitting Physician - TONY PEÑA MD-SUR Attending Physician - TONY PEÑA MD-SUR Primary Care Physician - JACKIE BABIN MD-FAM Referring Physician - JACKIE BABIN MD-FAM PHY, NONE Your Diagnosis 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 Showering/Bathing: No showering for 24 hours., No tub bathing, soaking or swimming for 3-5 days until site is healed. Medications: No changes to your current home medications., _, _ Dressing Instructions: You can remove the dressing in 24 hours., _, _ Discharge Follow Up Instructions: follow-up in 2 weeks.Please schedule Ankle-Brachial Index(JOEY) with followup appointment. Activity: Discharge Activity: No heavy lifting over 10 lbs, Avoid Strenuous Activity Until: for 1 week Follow-Up Appointments Follow Up with TONY PEÑA MD-JESUS When 04/03/2019 02:00 PM EST Comments Appointment has been made, with JOEY,s Where: [address] [place], [place] [phone] Medications What How Much When Instructions Next Dose acetaminophen-hydrocodone ([place] 7.5 mg-325 mg oral tablet) 1 Tablet(s) Oral Three Times A Day as needed for as needed for pain aspirin 81 Milligram(s) Oral At Bedtime budesonide-formoterol (Symbicort 160 mcg-4.5 mcg/ inh inhalation aerosol) 2 Puff(s) Inhalation Two Times A Day cetirizine (ZyrTEC) 10 Milligram(s) Oral Two Times A Day cholecalciferol (Vitamin D3) 2,000 International Units Oral Tuesday cimetidine (Tagamet HB) See instructions 300 mg Oral at 1800 and MN day prior to procedure and 0600 on DOS citalopram (CeleXA) 20 Milligram(s) Oral Every Day clopidogrel (Plavix) 75 Milligram(s) Oral Every Day diazePAM (Valium) 5 Milligram(s) Oral Four Times A Day as needed for as needed for anxiety diclofenac topical (Voltaren 1% topical gel) 2 Gram(s) Topical Four Times A Day to feet and legs as needed diphenhydrAMINE (Benadryl) See instructions 50 mg Oral at 1800 and MN day before procedure and 0600 on DOS docusate (Dulcolax Stool Softener) 2 caps Oral At Bedtime pt usually takes one but occ two fluticasone nasal (Flonase) 2 sprays Nostrils Both Two Times A Day folic acid 0.4 Milligram(s) Oral Every Day furosemide (Lasix) 20 Milligram(s) Oral Every Day ibuprofen (Motrin IB) 600 Milligram(s) Oral Three Times A Day as needed for as needed for pain lansoprazole (Prevacid) 30 Milligram(s) Oral Every Day lisinopril 20 Milligram(s) Oral Every Day nicotine (nicotine 21 mg/ 24 hr transdermal film, extended release) 1 Patch(es) TransDermal Every Day Non Formulary (Non Formulary Medication) hair, skin and nails Oral Every Day predniSONE See instructions 50 mg Oral at 1800 and MN day before procedure and 0600 on DOS roflumilast (Daliresp) 500 Microgram(s) Oral Every Day tiotropium (Spiriva) 18 Microgram(s) Inhalation Two Times A Day tiZANidine 2 Milligram(s) Oral Three Times A Day as needed for as needed for muscle spasm 1/ 2-1 tab, usually only at bedtime, if she takes it Take your medications faithfully. Do NOT skip medication. Do NOT stop taking medications without the direction of a physician. Carry a list of your medications with you at all times, and take this medication list with you to your first follow up visit. Report any side effects. Avoid herbal remedies unless discussed with your physician. As part of your treatment plan, your physician may have prescribed a limited course of a controlled substance. This medication may be given to help people with moderate or severe pain or for other medical conditions, but there are risks involved with treatment. Common side effects may include nausea, constipation, drowsiness, sweating, itching, dry mouth, and rash. More serious side effects may include cognitive and motor impairment, like problems with thinking, concentrating, alertness, and movement (e.g. slowed reflexes), and driving and operating heavy machinery can be dangerous. It is important for you to talk to your physician if you have these side effects or questions. These controlled substances can produce physical dependence and be habit-forming if taken for an extended period of time, which means that the body has gotten used to them and may experience withdrawal symptoms if they are abruptly stopped. Withdrawal symptoms can include runny nose, sweating, goose bumps, diarrhea, abdominal cramping, rapid heartbeat, difficulty sleeping, and nervousness. Please dispose of unused and medications per your retail pharmacy guidance. Allergies statins (Had a blackout, Dizziness, Muscle pain) Contrast Dye Decongestant Demerol HCl (HALLUCINATIONS) iodine (Anaphylaxis) Immunizations This Visit No Immunizations Found Education Materials Moderate Conscious Sedation, Adult, Care After These instructions provide you with information about caring for yourself after your procedure. Your health care provider may also give you more specific instructions. Your treatment has been planned according to current medical practices, but problems sometimes occur. Call your health care provider if you have any problems or questions after your procedure. What can I expect after the procedure? After your procedure, it is common: ??? To feel sleepy for several hours. ??? To feel clumsy and have poor balance for several hours. ??? To have poor judgment for several hours. ??? To vomit if you eat too soon. Follow these instructions at home: For at least 24 hours after the procedure: ??? Do not: ? Participate in activities where you could fall or become injured. ? Drive. ? Use heavy machinery. ? Drink alcohol. ? Take sleeping pills or medicines that cause drowsiness. ? Make important decisions or sign legal documents. ? Take care of children on your own. ??? Rest. Eating and drinking ??? Follow the diet recommended by your health care provider. ??? If you vomit: ? Drink water, juice, or soup when you can drink without vomiting. ? Make sure you have little or no nausea before eating solid foods. General instructions ??? Have a responsible adult stay with you until you are awake and alert. ??? Take hmqw-ram-jznifht and prescription medicines only as told by your health care provider. ??? If you smoke, do not smoke without supervision. ??? Keep all follow-up visits as told by your health care provider. This is important. Contact a health care provider if: ??? You keep feeling nauseous or you keep vomiting. ??? You feel light-headed. ??? You develop a rash. ??? You have a fever. Get help right away if: ??? You have trouble breathing. This information is not intended to replace advice given to you by your health care provider. Make sure you discuss any questions you have with your health care provider. Document Released: 01/30/2014 Document Revised: 09/13/2016 Document Reviewed: 07/31/2016 [employer] Interactive Patient Education ?? 2019 [employer] Angiogram, Care After This sheet gives you information about how to care for yourself after your procedure. Your health care provider may also give you more specific instructions. If you have problems or questions, contact your health care provider. What can I expect after the procedure? After the procedure, it is common to have bruising and tenderness at the catheter insertion area. Follow these instructions at home: Insertion site care ??? Follow instructions from your health care provider about how to take care of your insertion site. Make sure you: ? Wash your hands with soap and water before you change your bandage (dressing). If soap and water are not available, use hand municipal bond trader. ? Change your dressing as told by your health care provider. ? Leave stitches (sutures), skin glue, or adhesive strips in place. These skin closures may need to stay in place for 2 weeks or longer. If adhesive strip edges start to loosen and curl up, you may trim the loose edges. Do not remove adhesive strips completely unless your health care provider tells you to do that. ??? Do not take baths, swim, or use a hot tub until your health care provider approves. ??? You may shower 24???48 hours after the procedure or as told by your health care provider. ? Gently wash the site with plain soap and water. ? Pat the area dry with a clean towel. ? Do not rub the site. This may cause bleeding. ??? Do not apply powder or lotion to the site. Keep the site clean and dry. ??? Check your insertion site every day for signs of infection. Check for: ? Redness, swelling, or pain. ? Fluid or blood. ? Warmth. ? Pus or a bad smell. Activity ??? Rest as told by your health care provider, usually for 1???2 days. ??? Do not lift anything that is heavier than 10 lbs. (4.5 kg) or as told by your health care provider. ??? Do not drive for 24 hours if you were given a medicine to help you relax (sedative). ??? Do not drive or use heavy machinery while taking prescription pain medicine. General instructions ??? Return to your normal activities as told by your health care provider, usually in about a week. Ask your health care provider what activities are safe for you. ??? If the catheter site starts bleeding, lie flat and put pressure on the site. If the bleeding does not stop, get help right away. This is a medical emergency. ??? Drink enough fluid to keep your urine clear or pale yellow. This helps flush the contrast dye from your body. ??? Take ihqb-ntn-ztdhnmj and prescription medicines only as told by your health care provider. ??? Keep all follow-up visits as told by your health care provider. This is important. Contact a health care provider if: ??? You have a fever or chills. ??? You have redness, swelling, or pain around your insertion site. ??? You have fluid or blood coming from your insertion site. ??? The insertion site feels warm to the touch. ??? You have pus or a bad smell coming from your insertion site. ??? You have bruising around the insertion site. ??? You notice blood collecting in the tissue around the catheter site (hematoma). The hematoma may be painful to the touch. Get help right away if: ??? You have severe pain at the catheter insertion area. ??? The catheter insertion area swells very fast. ??? The catheter insertion area is bleeding, and the bleeding does not stop when you hold steady pressure on the area. ??? The area near or just beyond the catheter insertion site becomes pale, cool, tingly, or numb. These symptoms may represent a serious problem that is an emergency. Do not wait to see if the symptoms will go away. Get medical help right away. Call your local emergency services (911 in the [place] Do not drive yourself to the hospital. Summary ??? After the procedure, it is common to have bruising and tenderness at the catheter insertion area. ??? After the procedure, it is important to rest and drink plenty of fluids. ??? Do not take baths, swim, or use a hot tub until your health care provider says it is okay to do so. You may shower 24???48 hours after the procedure or as told by your health care provider. ??? If the catheter site starts bleeding, lie flat and put pressure on the site. If the bleeding does not stop, get help right away. This is a medical emergency. This information is not intended to replace advice given to you by your health care provider. Make sure you discuss any questions you have with your health care provider. Document Released: 10/28/2005 Document Revised: 03/16/2017 Document Reviewed: 03/16/2017 [employer] Interactive Patient Education ?? 2019 [employer]. Angiogram An angiogram is a procedure used to examine the blood vessels. In this procedure, contrast dye is injected through a long, thin tube (catheter) into an artery. X-rays are then taken, which show if there is a blockage or problem in a blood vessel. The catheter may be inserted in: ??? Your groin area. This is the most common. ??? The fold of your arm, near your elbow. ??? Your wrist. Tell a health care provider about: ??? Any allergies you have, including allergies to shellfish or contrast dye. ??? All medicines you are taking, including vitamins, herbs, eye drops, creams, and fsyo-adr-bclzqtk medicines. ??? Any problems you or family members have had with anesthetic medicines. ??? Any blood disorders you have. ??? Any surgeries you have had. ??? Any previous kidney problems or failure you have had. ??? Any medical conditions you have. ??? Whether you are or may be . ??? Whether you are . What are the risks? Generally, this is a safe procedure. However, problems may occur, including: ??? Infection or bruising at the catheter area. ??? Damage to other structures or organs, including rupture of blood vessels or damage to arteries. ??? Allergic reaction to the contrast dye used. ??? Kidney damage from the contrast dye used. ??? Blood clots that can lead to a stroke or heart attack. What happens before the procedure? Staying hydrated Follow instructions from your health care provider about hydration, which may include: ??? Up to 2 hours before the procedure ??? you may continue to drink clear liquids, such as water, clear fruit juice, black coffee, and plain tea. Eating and drinking restrictions Follow instructions from your health care provider about eating and drinking, which may include: ??? 8 hours before the procedure ??? stop eating heavy meals or foods such as meat, fried foods, or fatty foods. ??? 6 hours before the procedure ??? stop eating light meals or foods, such as toast or cereal. ??? 6 hours before the procedure ??? stop drinking milk or drinks that contain milk. ??? 2 hours before the procedure ??? stop drinking clear liquids. General instructions ??? Ask your health care provider about: ? Changing or stopping your normal medicines. This is important if you take diabetes medicines or blood thinners. ? Taking medicines such as aspirin and ibuprofen. These medicines can thin your blood. Do not take these medicines before your procedure if your doctor tells you not to. ??? You may have blood samples taken. ??? Plan to have someone take you home from the hospital or clinic. ??? If you will be going home right after the procedure, plan to have someone with you for 24 hours. What happens during the procedure? To reduce your risk of infection: ? Your health care team will wash or sanitize their hands. ? Your skin will be washed with soap. ? Hair may be removed from the insertion area. ??? You will lie on your back on an X-ray table. You may be strapped to the table if it is tilted. ??? An IV tube will be inserted into one of your veins. ??? Electrodes may be placed on your chest to monitor your heart rate during the procedure. ??? You will be given one or more of the following: ? A medicine to help you relax (sedative). ? A medicine to numb the area where the catheter will be inserted (local anesthetic). ??? The catheter will be inserted into an artery using a guide wire. A type of X-ray (fluoroscopy) will be used to help guide the catheter to the blood vessel to be examined. ??? A contrast dye will then be injected into the catheter, and X-rays will be taken. The contrast will help to show where any narrowing or blockages are located in the blood vessels. You may feel flushed as the contrast dye is injected. ??? After the X-ray is complete, the catheter will be removed. ??? A bandage (dressing) will be placed over the site where the catheter was inserted. Pressure will be applied to help stop any bleeding. The procedure may vary among health care providers and hospitals. What happens after the procedure? Your blood pressure, heart rate, breathing rate, and blood oxygen level will be monitored until the medicines you were given have worn off. ??? You will be kept in bed lying flat for several hours. If the catheter was inserted through your leg, you will be instructed not to bend or cross your legs. ??? The insertion area and the pulse in your feet or wrist will be checked frequently. ??? You will be instructed to drink plenty of fluids. This will help wash the contrast dye out of your body. ??? Additional blood tests and X-rays may be done. ??? Tests to check the electrical activity in your heart (electrocardiogram) may be done. ??? Do not drive for 24 hours if you received a sedative. ??? It is up to you to get the results of your procedure. Ask your health care provider, or the department that is doing the procedure, when your results will be ready. Summary ??? An angiogram is a procedure used to examine the blood vessels. ??? In this procedure, contrast dye is injected through a long, thin tube (catheter) into an artery. X-rays are then taken. ??? Before the procedure, follow your health care provider's instructions about eating and drinking restrictions. You may be asked to stop eating and drinking several hours before the procedure. ??? After the procedure, you will need to lie flat for several hours and drink plenty of fluids. This information is not intended to replace advice given to you by your health care provider. Make sure you discuss any questions you have with your health care provider. Document Released: 01/19/2006 Document Revised: 08/16/2017 Document Reviewed: 05/18/2017 [employer] Interactive Patient Education ?? 2019 [employer] Intermittent Claudication Intermittent claudication is pain in one or both legs that occurs when walking or exercising and goes away when resting. Intermittent claudication is a symptom of peripheral arterial disease (PAD). This condition is commonly treated with rest, medicine, and healthy lifestyle changes. If medical management does not improve symptoms, surgery can be done to restore blood flow (revascularization) to the affected leg. What are the causes? This condition is caused by buildup of fatty material (plaque) within the major arteries in the body (atherosclerosis). Plaque makes arteries stiff and narrow, which prevents enough blood from reaching the leg muscles. Pain occurs when you walk or exercise because your muscles need (but cannot get) more blood when you are moving and exercising. What increases the risk? The following factors may make you more likely to develop this condition: ??? A family history of atherosclerosis. ??? A personal history of stroke or heart disease. ??? Older age. ??? Being inactive (sedentary lifestyle). ??? Being overweight. ??? Smoking cigarettes. ??? Having another health condition such as: ? Diabetes. ? High blood pressure. ? High cholesterol. What are the signs or symptoms? Symptoms of this condition may first develop in the lower leg, and then they may spread to the thigh, hip, buttock, or the back of the lower leg (calf) over time. Symptoms may include: ??? Aches or pains. ??? Cramps. ??? A feeling of tightness, weakness, or heaviness. ??? A wound on the lower leg or foot that heals poorly or does not heal. How is this diagnosed? This condition may be diagnosed based on: ??? Your symptoms. ??? Your medical history. ??? Tests, such as: ? Blood tests. ? Arterial duplex ultrasound. This test uses images of blood vessels and surrounding organs to evaluate blood flow within arteries. ? Angiogram. In this procedure, dye is injected into arteries and then X-rays are taken. ? Magnetic resonance angiogram (MRA). In this procedure, strong magnets and radio waves are used instead of X-rays to create images of blood vessels and blood flow. ? CT angiogram (CTA). In this procedure, a large X-ray machine called a CT scanner takes detailed pictures of blood vessels that have been injected with dye. ? Ankle???brachial index (JOEY) test. This procedure measures blood pressure in the leg during exercise and at rest. ? Exercise test. For this test, you will walk on a treadmill while tests are done (such as the JOEY test) to evaluate how this condition affects your ability to walk or exercise. How is this treated? Treatment for this condition may involve treatment for the underlying cause, such as treatment for high blood pressure, high cholesterol, or diabetes. Treatment may include: ??? Lifestyle changes such as: ? Starting a supervised or home-based exercise program. ? Losing weight. ? Quitting smoking. ??? Medicines to help restore blood flow through your legs. ??? Blood vessel surgery (angioplasty) to restore blood flow around the blocked vessel. This is also known as endovascular therapy (EVT). This is only done if your intermittent claudication is caused by severe peripheral artery disease, a condition in which blood flow is severely or totally restricted by the narrowing of the arteries. Follow these instructions at home: Lifestyle ??? Maintain a healthy weight. ??? Eat a diet that is low in saturated fats and calories. Consider working with a diet and sports nutritionist (dietitian) to help you make healthy food choices. ??? Do not use any products that contain nicotine or tobacco, such as cigarettes and e-cigarettes. If you need help quitting, ask your health care provider. ??? If your health care provider recommended an exercise program for you, follow it as directed. Your exercise program may involve: ? Walking 3 or more times a week. ? Walking until you have certain symptoms of intermittent claudication. ? Resting until symptoms go away. ? Gradually increasing your walking time to about 50 minutes a day. General instructions ??? Work with your health care provider to manage any other health conditions you may have, including diabetes, high blood pressure, or high cholesterol. ??? Take ryfb-zcn-srwgzbr and prescription medicines only as told by your health care provider. ??? Keep all follow-up visits as told by your health care provider. This is important. Contact a health care provider if: ??? Your pain does not go away with rest. ??? You have sores on your legs that do not heal or have a bad smell or pus coming from them. ??? Your condition gets worse or does not get better with treatment. Get help right away if: ??? You have chest pain. ??? You have difficulty breathing. ??? You develop arm weakness. ??? You have trouble speaking. ??? Your face begins to droop. ??? Your foot or leg is cold or it changes color. ??? Your foot or leg becomes numb. These symptoms may represent a serious problem that is an emergency. Do not wait to see if the symptoms will go away. Get medical help right away. Call your local emergency services (911 in the [place] Do not drive yourself to the hospital. Summary ??? Intermittent claudication is pain in one or both legs that occurs when walking or exercising and goes away when resting. ??? This condition is caused by buildup of fatty material (plaque) within the major arteries in the body (atherosclerosis). Plaque makes arteries stiff and narrow, which prevents enough blood from reaching the leg muscles. ??? Intermittent claudication can be treated with medicine and lifestyle changes. If medical treatment fails, surgery can be done to help return blood flow to the affected area. ??? Make sure you work with your health care provider to manage any other health conditions you may have, including diabetes, high blood pressure, or high cholesterol. This information is not intended to replace advice given to you by your health care provider. Make sure you discuss any questions you have with your health care provider. Document Released: 02/11/2005 Document Revised: 05/12/2017 Document Reviewed: 05/12/2017 [employer] Interactive Patient Education ?? 2019 [employer] Peripheral Vascular Disease Peripheral vascular disease (PVD) is a disease of the blood vessels. A simple term for PVD is poor circulation. In most cases, PVD narrows the blood vessels that carry blood from your heart to the rest of your body. This can result in a decreased supply of blood to your arms, legs, and internal organs, like your stomach or kidneys. However, it most often affects a person???s lower legs and feet. There are two types of PVD. ??? Organic PVD. This is the more common type. It is caused by damage to the structure of blood vessels. ??? Functional PVD. This is caused by conditions that make blood vessels contract and tighten (spasm). Without treatment, PVD tends to get worse over time. PVD can also lead to acute limb ischemia. This is when an arm or leg suddenly has trouble getting enough blood. This is a medical emergency. What are the causes? Each type of PVD has many different causes. The most common cause of PVD is buildup of a fatty material (plaque) inside your arteries (atherosclerosis). Small amounts of plaque can break off from the cervantes of the blood vessels and become lodged in a smaller artery. This blocks blood flow and can cause acute limb ischemia. Other common causes of PVD include: ??? Blood clots that form inside of blood vessels. ??? Injuries to blood vessels. ??? Diseases that cause inflammation of blood vessels or cause blood vessel spasms. ??? Health behaviors and health history that increase your risk of developing PVD. What increases the risk? You are more likely to develop this condition if: ??? You have a family history of PVD. ??? You have certain medical conditions, including: ? High cholesterol. ? Diabetes. ? High blood pressure (hypertension). ? Coronary heart disease. ? Past problems with blood clots. ? Past injury, such as presley or a broken bone. These may have damaged blood vessels in your limbs. ? Buerger disease. This is caused by inflamed blood vessels in your hands and feet. ? Some forms of arthritis. ? Rare defects that affect the arteries in your legs. ? Kidney disease. ??? You use tobacco or smoke. ??? You do not get enough exercise. ??? You are obese. ??? You are age 50 or older. What are the signs or symptoms? This condition may cause different symptoms. Your symptoms depend on what part of your body is not getting enough blood. Some common signs and symptoms include: ??? Cramps in your lower legs. This may be a symptom of poor leg circulation (claudication). ??? Pain and weakness in your legs. This happens while you are physically active but goes away when you rest (intermittent claudication). ??? Leg pain when at rest. ??? Leg numbness, tingling, or weakness. ??? Coldness in a leg or foot, especially when compared with the other leg. ??? Skin or hair changes. These can include: ? Hair loss. ? Shiny skin. ? Pale or bluish skin. ? Thick toenails. ??? Inability to get or maintain an erection (erectile dysfunction). ??? Fatigue. People with PVD are more likely to develop ulcers and sores on their toes, feet, or legs. These may take longer than normal to heal. How is this diagnosed? This condition is diagnosed based on: ??? Your signs and symptoms. ??? A physical exam and your medical history. ??? Other tests to find out what is causing your PVD and to determine its severity. Tests may include: ? Blood pressure recordings from your arms and legs and measurements of the strength of your pulses (pulse volume recordings). ? Imaging studies using sound waves to take pictures of the blood flow through your blood vessels (Doppler ultrasound). ? Injecting a dye into your blood vessels before having imaging studies using: ? X-rays (angiogram or arteriogram). ? Computer-generated X-rays (CT angiogram). ? A powerful electromagnetic field and a computer (magnetic resonance angiogram or MRA). How is this treated? Treatment for PVD depends on the cause of your condition and how severe your symptoms are. It also depends on your age. Underlying causes need to be treated and controlled. These include long-term (chronic) conditions, such as diabetes, high cholesterol, and high blood pressure. Treatment includes: ??? Lifestyle changes, such as: ? Quitting smoking. ? Exercising regularly. ? Following a low-fat, low-cholesterol diet. ??? Taking medicines, such as: ? Blood thinners to prevent blood clots. ? Medicines to improve blood flow. ? Medicines to improve your blood cholesterol levels. ??? Surgical procedures, such as: ? A procedure that uses an inflated balloon to open a blocked artery and improve blood flow (angioplasty). ? A procedure to put in a wire mesh tube to keep a blocked artery open (stent implant). ? Surgery to reroute blood flow around a blocked artery (peripheral bypass surgery). ? Surgery to remove tissue from an infected wound on the affected limb. ? Amputation. This is surgical removal of the affected limb. It may be necessary in cases of acute limb ischemia where there has been no improvement through medical or surgical treatments. Follow these instructions at home: Lifestyle ??? Do not use any products that contain nicotine or tobacco, such as cigarettes and e-cigarettes. If you need help quitting, ask your health care provider. ??? Lose weight if you are overweight, and maintain a healthy weight as discussed by your health care provider. ??? Eat a diet that is low in fat and cholesterol. If you need help, ask your health care provider. ??? Exercise regularly. Ask your health care provider to suggest some good activities for you. General instructions ??? Take mihz-jpk-zckauen and prescription medicines only as told by your health care provider. ??? Take good care of your feet: ? Wear comfortable shoes that fit well. ? Check your feet often for any cuts or sores. ??? Keep all follow-up visits as told by your health care provider. This is important. Contact a health care provider if: ??? You have cramps in your legs while walking. ??? You have leg pain when you are at rest. ??? You have coldness in a leg or foot. ??? Your skin changes. ??? You have erectile dysfunction. ??? You have cuts or sores on your feet that are not healing. Get help right away if: ??? Your arm or leg turns cold, numb, and blue. ??? Your arms or legs become red, warm, swollen, painful, or numb. ??? You have chest pain or trouble breathing. ??? You suddenly have weakness in your face, arm, or leg. ??? You become very confused or lose the ability to speak. ??? You suddenly have a very bad headache or lose your vision. Summary ??? Peripheral vascular disease (PVD) is a disease of the blood vessels. ??? In most cases, PVD narrows the blood vessels that carry blood from your heart to the rest of your body. ??? PVD may cause different symptoms. Your symptoms depend on what part of your body is not getting enough blood. ??? Treatment for PVD depends on the cause of your condition and how severe your symptoms are. This information is not intended to replace advice given to you by your health care provider. Make sure you discuss any questions you have with your health care provider. Document Released: 05/19/2005 Document Revised: 05/19/2017 Document Reviewed: 05/19/2017 [employer] Interactive Patient Education ?? 2019 [employer] Emergency Awareness and Preventative Care STROKE is an EMERGENCY Every Minute Counts Act FAST and Check for these signs: FACE Does the face look uneven? ARM Does one arm drift down? SPEECH Does their speech sound strange? TIME Call at any sign of stroke Stroke Risk Factors Atrial Fibrillation (irregular heartbeat) Diabetes Family history of stroke Heart Disease Heavy alcohol use High Blood Pressure High Cholesterol Physical inactivity and obesity Smoking Cigarette Smoking The facts are clear, cigarette smoking will shorten your life. Smoking can cause many illnesses along the way. As a healthcare provider, we recommend that you stop smoking. Assistance with quitting is available by contacting 9-971-VQHF-NOW. This is a free resource providing counseling, support, and referral. Or you may contact your personal physician. National Suicide Prevention Lifeline: The National Suicide Prevention Lifeline is a national network of local crisis centers that provides free and confidential emotional support to people in suicidal crisis or emotional distress 24 hours a day, 7 days a week. Don't Wait! Stop a Heart Attack Before it Starts What is a heart attack? A heart attack is damage or to a part of the heart from severely decreased or lack of blood flow to the heart. Over time, arteries can become narrow from the buildup of fat and cholesterol, which is called plaque. The plaque can rupture causing a blood clot to form. When the blood clot forms, the artery can become severely narrowed or completely blocked, causing a heart attack. Heart attack is the leading cause of in the [place]. 85% of muscle damage occurs within the first 2 hours. Delay in the recognition of heart attack symptoms increases the chances of . Know the early symptoms of a heart attack: Nausea Feeling of fullness in chest Jaw Pain Pain that travels down one or both arms Fatigue/being tired Anxiety Back Pain Chest pressure, squeezing, or discomfort Shortness of breath Sweating, or a cold sweat Feeling of impending doom There are unusual signs of a heart attack, too! Women, the elderly, and diabetics may present with atypical symptoms: Fainting/dizziness Weakness Confusion Risk Factors for a Heart Attack Some heart disease risk factors, such as age and family history, cannot be changed. Others, like smoking and lack of exercise, can be changed. Smoking High Cholesterol High Blood Pressure Family History Obesity Age Gender (Males are at higher risk) Lack of Exercise Diabetes Diet Stress Excessive Alcohol Intake If you or someone you know is experiencing the signs and symptoms of a heart attack, DON???T DELAY. Call immediately and seek help. If someone collapses, perform CPR! Do not attempt to drive if you are having symptoms of heart attack. Hands-Only CPR Why Hands-Only CPR? Hands-Only CPR has been shown to be as effective as conventional CPR for cardiac arrests that occur outside of a hospital. Survival depends on immediately receiving CPR from someone nearby. How do you perform Hands-Only CPR? There are two easy steps: Call if you see a teen or adult collapse Push hard and fast in the center of the chest at a beat of 100 beats per minute. Save a life! 4 WAYS TO GET AHEAD OF SEPSIS SEPSIS is a MEDICAL EMERGENCY. Time matters! Infections put you and your family at risk for a life-threatening condition called sepsis. Sepsis is the body's extreme response to an infection. It is life-threatening, and without timely treatment, sepsis can rapidly lead to tissue damage, organ failure, and . Sepsis happens when an infection you already have-in your skin, lungs, urinary tract or somewhere else-triggers a chain reaction throughout your body. 1 PREVENT INFECTIONS Take good care of chronic conditions. Talk to your doctor about getting the recommended vaccines. 2 PRACTICE GOOD HYGIENE Wash your hands frequently. Keep cuts or open sores clean and covered until they are healed. 3 KNOW THE SYMPTOMS Confusion or disorientation Shortness of breath High heart rate Fever, shivering, or feeling very cold Extreme pain or discomfort Clammy or sweaty skin 4 ACT FAST Get medical care IMMEDIATELY if you suspect sepsis or if you have an infection that is not getting better or is getting worse. To learn more about sepsis and how to prevent infections, visit www.cdc.gov/sepsis. Test Results Laboratory or Other Results This Visit (last charted value for your 03/14/2019 visit) Hematology 03/14/2019 11:13 AM Hemoglobin POC: 12.2 Gram/dL -- Normal range between ( 12.0 and 17.0 ) Hematocrit POC: 36.0 % -- Normal range between ( 38.0 and 51.0 ) General Chemistry 03/14/2019 11:13 AM eGFR : 102 mL/min/1.73m2 eGFR NonAfrican: 84 mL/min/1.73m2 Potassium POC: 4.5 mmol/L -- Normal range between ( 3.5 and 4.9 ) Creatinine POC: 0.7 mg/dL -- Normal range between ( 0.6 and 1.3 ) Glucose POC: 147 mg/dL -- Normal range between ( 70 and 105 ) Patient Name:TRESA GHULAMJERRY BHATIA I have received and understand this information and was given the opportunity to ask questions. Patient/Tube Winder Hand Name: Patient/Tube Winder Hand Signature: Relationship to Patient: Clinician/Hospital Tube Winder Hand Signature: Date: documented in this encounter Plan of Treatment Not on file documented as of this encounter Visit Diagnoses Not on filedocumented in this encounter
--- OUTSIDE RECORDS SUMMARY | 2024-10-10 13:20 | XMS_ITS | Encounter Summary ---
Author Organization [employer] Address [address] [place] [address] Care Team Providers Care Credit Assistant Name Role Phone Unavailable Primary Care Provider Unavailabl e Encounter Details Date Type Department Care Team (Late st Contact Info) Description 03/14/2019 Transcribed Document [facility] Family Medicine [address] [place] [address] ProviderRegina MD [address] [place] [address] Social History Tobacco Use Types Packs/Day Years Used Date Smoking Tobacco: Never Assessed Comments Unknown Sex and Gender Information Value Date Recorded Sex Assigned at Not on file Legal Sex Female 5:00 PM CDT Gender Identity Not on file Sexual Orientation Not on file documented as of this encounter Miscellaneous Notes * [employer]ner Conversion Note - Historical ProviderMD - 03/14/2019 4:16 PM SENIOR BUSINESS DEVELOPMENT MANAGER Nursing Discharge Summary Entered On: 03/14/2019 16:19 EST Performed On: 03/14/2019 16:16 EST by DANIELLE GARCIA RN Discharge Documentation Discharge Date/Time : 03/14/2019 16:45 EST Patient Disposition, General : Discharge Discharge To : Home with ambulatory/outpatient follow-up Mode Of Departure, General Discharge : Private vehicle, Wheelchair Accompanied By, Discharge : Friend IV Discontinued : Yes Personal Belongings With Patient : Yes Discharge Instructions Reviewed With, Opportunity For Questions Given : Patient, Friend Patient Education Completed : Yes Teaching Method : Demonstration, Explanation Teaching Evaluation : Returns demonstration, Verbalizes understanding DANIELLE GARCIA RN - 03/14/2019 16:16 EST Electronically signed by [facility] Conversion Boiler Control Technician Cerner at 08/13/2022 11:21 AM CDT documented in this encounter Plan of Treatment Not on file documented as of this encounter Visit Diagnoses Not on filedocumented in this encounter
--- OUTSIDE RECORDS SUMMARY | 2024-10-10 13:20 | XMS_ITS | Encounter Summary ---
Author Organization Healthcare Address [address] [place] [address] Care Team Providers Care Rn Labor Delivery Name Role Phone Mustapha James MD Primary Care Provider [phone] Miguel Lamb MD Unavailable [phone] Encounter Details Date Type Department Care Team (Latest Contact Info) Description 08/30/2024 Travel Social History Tobacco Use Types Packs/Day [...] on file documented as of this encounter Functional Status * Calculated C-SSRS Risk Score (Lifetime/Recent) Answer Date of Assessment Author No Risk Indicated 08/30/2024 9:00 PM EDT Artur Lara RN * Question Answer Date of Assessment Author 1. Wish to be (Past 1 Month) No 9:00 PM EDT Artur Lara, RN 2. Non-Specific Active Suici sil Thoughts (Past 1 Month) No 08/30/2024 9:00 PM EDT Artur Lara, RN 6. Suicidal Behavior (Lifetime) No 9:00 PM EDT Artur Lara, RN documented as of this encounter Plan of Treatment Upcoming Encounters Date Type Department Care Team (Late st Contact Info) Description 01/04/2025 2:00 PM EDT Appointment Cardiac Imaging [address] [place] [address] 01/04/2025 3:30 PM EDT Office Visit [facility] [address] [place] [address] Miguel Lamb MD [address] [place] [phone] documented as of this encounter Visit Diagnoses [...] documented as of this encounter Care Teams Rn Labor Delivery Relationship Specialty Start Date End Date Mustapha James MD [address] [place] [id number] PCP - General 09/05/20 Miguel Lamb MD [address] [place] [phone] Referring Physician Interventional Cardiology 08/16/24 documented as of this encounter
--- OUTSIDE RECORDS SUMMARY | 2024-10-10 13:20 | XMS_ITS | Encounter Summary ---
Author Organization Healthcare Address [address] [place] [address] Care Team Providers Care Pharmacist Aide Name Role Phone Mustapha James MD Primary Care Provider [phone] Miguel Lamb MD Unavailable [phone] Reason for Visit * Reason Onset Date Comments Med Refill 08/27/2024 Encounter Details Date Type Department Care Team (Late st Contact Info) Description 08/27/2024 Refill [facility] [address] [address] Renee Bravo, RN [facility] Social History Tobacco Use Types Packs/Day Years [...] PM EDT Appointment Cardiac Imaging [address] [place] [address] 01/04/2025 3:30 PM EDT Office Visit [facility] [address] [place] [phone] Miguel Lamb MD [address] [place] [address] documented as of this encounter Visit Diagnoses [...] documented as of this encounter Care Teams Pharmacist Aide Relationship Specialty Start Date End Date Mustapha James MD [address] [place] [id number] PCP - General 09/05/20 Miguel Lamb MD [address] [place] [phone] Referring Physician Interventional Cardiology 08/16/24 documented as of this encounter
--- OUTSIDE RECORDS SUMMARY | 2024-10-10 13:20 | XMS_ITS | Clinical Summary ---
Author Organization [employer] Address [address] [place] [address] Care Team Providers Care House Parent Name Role Phone Unavailable Primary Care Provider Unavailabl e Social History Tobacco Use Types Packs/Day Years Used Date Smoking Tobacco: Never Assessed Interpersonal Safety Answer Date Record ed Family or friends hurt you Not on file 05/13 Family or friends insult you Not on file Family or friends threaten you Not on file 0 05/13/2023 Family or friends scream or curse at you Not on file 05/13/2023 Housing Stability Answer Date Recorded Living situation today Not on file Living situation problems Not on file 2023 Food Insecurity Answer Date Recorded Food run out past 12 months Not on file 04/25 Food did not last past 12 months Not on file 05/13/2023 Employment Answer Date Recorded Help finding and keeping a job Not on file 0 05/13/2023 Family and Community Support Answer Jose G e Recorded Help with Day to Day Activities Not on file 05/13/2023 Feeling Lonely or Isolated Not on file 05/13 Educational Attainment Answer Date Mathew rded Speak language other than Frisian at home Not on file 05/13/2023 Want help with school or training Not on file 05/13/2023 Depression Answer Date Recorded PHQ-2 Risk Not on file 05/13/2023 Disabilities Answer Date Recorded Difficulty concentrating Not on file 024 Difficulty doing errands alone Not on file 0 05/13/2023 Substance Use Answer Date Recorded Used prescription meds for non-medical reasons N ot on file 05/13/2023 Used illegal drugs past 12 months Not on file 05/13/2023 Comments Unknown Sex and Gender Information Value Date Recorded Sex Assigned at Not on file Legal Sex Female 5:00 PM CDT Gender Identity Not on file Sexual Orientation Not on file Plan of Treatment Health Maintenance Due Date Last Done Comments CT Colonography 1953 Colonoscopy 1953 Colorectal Cancer Screening 1953 DXA SCAN 1953 FOBT/FIT 1953 Fit-DNA (Cologuard) 1953 Sigmoidoscopy 1953 Depression Screening (12+) 1965 Tobacco Cessation Counseling and Screening (12+) 1965 Hepatitis C Screening 1971 Breast Cancer Screening 1993 Shingles Vaccine (Zoster) (1 of 2) 2003 Pneumococcal 50+ years (2 of 2 - PCV) 09/29/2016 09/30/2015 COVID-19 VACCINE (2023-2 5 season) 2023 02/24/2022, 04/01/2021, 08/06/2020, Additional history exists Falls Risk Screening 04/25/2024 Influenza Vaccine (Season Ended) 2024 03/02/2022, 01/23/2019, 01/23/2019 DTAP/TDAP/TD VACCINES (2 - T d or Tdap) 06/29/2025 06/30/2015 Respiratory Syncytial Virus (RSV) Adult or (1 - 1-dose 75+ series) 2028
--- OUTSIDE RECORDS SUMMARY | 2024-10-10 13:20 | XMS_ITS | Encounter Summary ---
Author Organization [employer] Address [address] [place] [address] Care Team Providers Care Insurance Claims Analyst Name Role Phone Unavailable Primary Care Provider Unavailabl e Encounter Details Date Type Department Care Team (Late st Contact Info) Description 03/14/2019 Transcribed Document [facility] [place] Family Medicine [address] [place] [address] ProviderRegina MD [address] [place], [place] [address] Social History Tobacco Use Types Packs/Day Years Used Date Smoking Tobacco: Never Assessed Comments Unknown Sex and Gender Information Value Date Recorded Sex Assigned at Not on file Legal Sex Female 5:00 PM CDT Gender Identity Not on file Sexual Orientation Not on file documented as of this encounter Miscellaneous Notes * Cerner Conversion Note - Regina Henley MD - 03/14/2019 4:15 PM CREDIT RELATIONSHIP MANAGER Patient Education Materials Follows: Moderate Conscious Sedation, Adult, Care After These [...] you are awake and alert. ??? Take axev-ihc-hrtvutv and prescription medicines only as told by [...] 01/30/2014 Document Revised: 09/13/2016 Document Reviewed: 07/31/2016 [employer] Patient Education ? 2019 [employer] Angiogram, Care After This sheet gives [...] and water are not available, use hand design leader. ? Change your dressing as told by [...] care provider approves. ??? You may shower 24?48 hours after the procedure or as told [...] by your health care provider, usually for 1?2 days. ??? Do not lift anything that [...] contrast dye from your body. ??? Take fmeh-gdq-dmlafmm and prescription medicines only as told by [...] okay to do so. You may shower 24?48 hours after the procedure or as told [...] 10/28/2005 Document Revised: 03/16/2017 Document Reviewed: 03/16/2017 [employer] Patient Education ? 2019 [employer] Angiogram An angiogram is a procedure used [...] including vitamins, herbs, eye drops, creams, and uwcq-ckf-odfvwbg medicines. ??? Any problems you or family [...] Up to 2 hours before the procedure ? you may continue to drink clear liquids, such as water, clear fruit juice, black coffee, and plain tea. Eating and drinking restrictions Follow instructions from your health care provider about eating and drinking, which may include: ??? 8 hours before the procedure ? stop eating heavy meals or foods such as meat, fried foods, or fatty foods. ??? 6 hours before the procedure ? stop eating light meals or foods, such as toast or cereal. ??? 6 hours before the procedure ? stop drinking milk or drinks that contain milk. ??? 2 hours before the procedure ? stop drinking clear liquids. General instructions ??? [...] 01/19/2006 Document Revised: 08/16/2017 Document Reviewed: 05/18/2017 [employer] Patient Education ? 2019 [employer] Cardiovascular Intermittent Claudication Intermittent claudication is pain in [...] that have been injected with dye. ? Ankle?brachial index (JOEY) test. This procedure measures blood [...] calories. Consider working with a diet and data capture specialist (dietitian) to help you make healthy food [...] blood pressure, or high cholesterol. ??? Take heft-owz-egtemkz and prescription medicines only as told by [...] 02/11/2005 Document Revised: 05/12/2017 Document Reviewed: 05/12/2017 [employer] Patient Education ? 2019 [employer] Peripheral Vascular Disease Peripheral vascular disease [...] kidneys. However, it most often affects a person?s lower legs and feet. There are two [...] activities for you. General instructions ??? Take vrjk-ols-qtscelp and prescription medicines only as told by [...] 05/19/2005 Document Revised: 05/19/2017 Document Reviewed: 05/19/2017 [employer] Interactive Patient Education ? 2019 [employer]. documented in this encounter Plan of Treatment Not on file documented as of this encounter Visit Diagnoses Not on filedocumented in this encounter
--- OUTSIDE RECORDS SUMMARY | 2024-10-10 13:20 | XMS_ITS | Encounter Summary ---
Author Organization [employer] Address [address] [place] [address] Care Team Providers Care Head Of Housekeeping Name Role Phone Unavailable Primary Care Provider Unavailabl e Encounter Details Date Type Department Care Team (Late st Contact Info) Description 02/12/2019 Transcribed Document [facility] Radiology [address] [place] [address] Martinez Miller MD [facility] [place] [address] Social History Tobacco Use Types Packs/Day Years Used Date Smoking Tobacco: Never Assessed Comments Unknown Sex and Gender Information Value Date Recorded Sex Assigned at Not on file Legal Sex Female 5:00 PM CDT Gender Identity Not on file Sexual Orientation Not on file documented as of this encounter Miscellaneous Notes * Cerner Conversion Note - Martinez Miller MD - 02/12/2019 4:25 PM EDT DATE OF PROCEDURE: 02/12/2019 PREOPERATIVE DIAGNOSES: Bilateral lower extremity claudication and right foot rest pain. POSTOPERATIVE DIAGNOSES: Bilateral lower extremity claudication and right foot rest pain. PROCEDURES PERFORMED: 1. Ultrasound-guided bilateral femoral access. 2. Bilateral common iliac artery stent placement. 3. Right external iliac artery stent placement. INDICATIONS: The patient is a 63-year-old female, with extensive tobacco use history, who has progression of claudication and right foot rest pain. She has occlusion of tibial vessels as well as occlusion of the right common and external iliac artery. She has been offered revascularization now as she is tobacco-free. OPERATIVE FINDINGS: 1. Flush occlusion of the right common iliac and external iliac artery. 2. Occlusion of the left superficial femoral artery with large thigh collaterals with reconstitution of vrvyn-mhe-ctxz popliteal artery. 3. Recanalization of occluded right common iliac artery and placement of an 8 x 38 [employer] within the proximal right common with a kissing 8 x 27 left common iliac artery stent. 4. Distal right common iliac artery was treated with an 8 x 38 stent, and right external iliac artery occlusion was treated with a 7 x 39 [place] VBX. OPERATIVE DESCRIPTION: The patient was taken back to the operating room, placed in a supine on the operating room table. Following IV sedation, bilateral groins were widely prepped and draped in a standard sterile fashion. Time-out was taken. Under ultrasound guidance, left common femoral artery was accessed with a Micropuncture needle. A 5-Greenlandic sheath was placed. Flush catheter was advanced within the aorta and aortography was performed. The patient had tapering and narrowing of the distal infrarenal aorta. A large pelvic lateral sacral branch was present, which was quite large. There was a flush occlusion of the right common iliac artery, reconstitution in the right common femoral artery to pelvic collaterals. The right internal iliac artery also appeared to reconstitute to collaterals. Left external common iliac artery was patent. Pigtail was pulled down in aortic bifurcation for assessment of the runoff. This revealed patency of the right superficial femoral artery. That was partially occluded with multiple thigh collaterals present. The right common femoral artery was also accessed in retrograde fashion. Attempts to traverse the occluded iliac system was unsuccessful in the entering the aorta. A destino catheter was placed in the left femoral access and the aortic bifurcation was crossed successfully. Wire with snare technique was used and a 7-Greenlandic sheath was advanced into the [place] aorta from the right femoral artery to the occluded segment. Wire was able to traverse the aorta. At this point, decision was made to slightly advance the aortic bifurcation. This was performed with an 8 x 38 stent within the right common iliac and an 8 x 27 within the left. Both sides were stented to prevent risk of rupture as well as risk of embolization from the occluded iliac. In addition, an 8 x 38 stent was used within the distal right common iliac artery extending onto the right internal iliac artery. The external iliac was also chronically occluded with a large dissection flap present. This was treated with a 7 x 39 [place]il[place] VBX stent. Excellent results were achieved upon completion. Normal pulsatile flow was present within the right common femoral artery. Mynx closure device was used bilaterally. The patient was then taken back to Recovery in stable condition. No complications. /[id number] MD FLOR Nguyen/BRIANNA / NNA / MODL /[id number] documented in this encounter Plan of Treatment Not on file documented as of this encounter Visit Diagnoses Not on filedocumented in this encounter
--- OUTSIDE RECORDS SUMMARY | 2024-10-10 13:21 | XMS_ITS | Encounter Summary ---
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 Name Role Phone Unavailable Primary Care Provider Unavailabl e Encounter Details Date Type Department Care Team (Late st Contact Info) Description 02/12/2019 Transcribed Document [facility] [address] [place] [address] ProviderRegina MD [address], [place] [id number] Social History Tobacco Use Types Packs/Day Years Used Date Smoking Tobacco: Never Assessed Comments Unknown Sex and Gender Information Value Date Recorded Sex Assigned at Not on file Legal Sex Female 5:00 PM CDT Gender Identity Not on file Sexual Orientation Not on file documented as of this encounter Miscellaneous Notes * Cerner Conversion Note - Regina ProviderMD - 02/12/2019 2:12 PM CDT [facility] Main OR IntraOp Summary Primary Physician: TONY PEÑA MD-SUR Finalized Date/Time: 02/13/19 11:43:16 Pt. Name: JODI GTZ SRIRAM Reynolds/Sex: 1955 Female Med Rec #: [id number] Physician: TONY PEÑA MD-SUR Financial #: [id number] Pt. Type: O Room/Bed: [facility]/11 Admit/Disch: 02/12/19 09:27:00 - 02/12/19 18:10:00 Institution: [facility] IntraOp Case Attendance Entry 1 Entry 2 Entry 3 Case Attendee TONY PEÑA MD-SUR Napier, Elizabeth A, RN Murphy, Whitney, [employer] Role Performed Surgeon/Proceduralist, Air Drier, First Netezza Developer First Time In 02/12/19 13:51:00 02/12/19 13:51:00 02/12/19 13:51:00 Time Out 02/12/19 15:09:00 02/12/19 15:00:00 02/12/19 15:09:00 Procedure Aortogram Abdominal Aortogram Abdominal Aortogram Abdominal with Runoff(Right), with Runoff(Right), with Runoff(Right), Arterial Stent Arterial Stent Arterial Stent Endovascular(Right) Endovascular(Right) Endovascular(Right) Other Attendee Superficial Wound Closed By: Last Modified By: Lexus Linda, Adilene Monsivais RN Sloan, Susan, Rn 02/12/19 15:49:22 02/13/19 07:01:03 02/12/19 15:49:22 Entry 4 Entry 5 Entry 6 Case Attendee Coco Pfeiffer CALDWELL, JOSEPH A, CRNA CORNEA, MIHAELA, MD-CAREN Cardiovascular Netezza Developer Role Performed Netezza Developer INFORMATION ASSURANCE MANAGER/Nurse Finishing Range Feeder Anesthesiologist of Record Time In 02/12/19 13:51:00 02/12/19 13:51:00 02/12/19 13:51:00 Time Out 02/12/19 15:09:00 02/12/19 15:09:00 02/12/19 15:09:00 Procedure Aortogram Abdominal Aortogram Abdominal Aortogram Abdominal with Runoff(Right), with Runoff(Right), with Runoff(Right), Arterial Stent Arterial Stent Arterial Stent Endovascular(Right) Endovascular(Right) Endovascular(Right) Other Attendee Superficial Wound Closed By: Last Modified By: Lexus Linda, Lexus Eng, Lexsu Eng Rn 02/12/19 15:49:22 02/12/19 15:49:22 02/12/19 15:49:22 Entry 7 Entry 8 Case Attendee Lexus Linda, Martha Zamora RN Role Performed Air Drier, First Air Drier, Second Time In 02/12/19 14:55:00 02/12/19 13:51:00 Time Out 02/12/19 15:09:00 02/12/19 15:09:00 Procedure Aortogram Abdominal Aortogram Abdominal with Runoff(Right), with Runoff(Right), Arterial Stent Arterial Stent Endovascular(Right) Endovascular(Right) Other Attendee Superficial Wound Closed By: Last Modified By: Lexus Linda, Adilene Monsivais RN 02/12/19 15:50:49 02/13/19 07:01:08 [facility] IntraOp Case Attendance Audit 02/13/19 07:01:21 Banquet Prep Cook: JONN Modifier: EANAPIER 8 <*> Procedure Aortogram Abdominal with Runoff(Right), Arterial Stent Endovascular(Right) 02/13/19 07:01:08 Banquet Prep Cook: JONN Modifier: EANAPIER 1 <*> Procedure Aortogram Abdominal with Runoff(Right), Arterial Stent Endovascular(Right) 2 <*> Procedure Aortogram Abdominal with Runoff(Right), Arterial Stent Endovascular(Right) 3 <*> Procedure Aortogram Abdominal with Runoff(Right), Arterial Stent Endovascular(Right) 4 <*> Procedure Aortogram Abdominal with Runoff(Right), Arterial Stent Endovascular(Right) 5 <*> Procedure Aortogram Abdominal with Runoff(Right), Arterial Stent Endovascular(Right) 6 <*> Procedure Aortogram Abdominal with Runoff(Right), Arterial Stent Endovascular(Right) 7 <*> Procedure Aortogram Abdominal with Runoff(Right), Arterial Stent Endovascular(Right) 8 <+> Time In 8 <+> Time Out 8 <*> Procedure Aortogram Abdominal with Runoff(Right), Arterial Stent Endovascular(Right) 02/13/19 07:01:03 Banquet Prep Cook: MEDARDO Modifier: EANAPIER 2 <*> Time Out 02/12/19 15:09:00 2 <*> Procedure Aortogram Abdominal with Runoff(Right), Arterial Stent Endovascular(Right) <+> 8 Case Attendee <+> 8 Role Performed <+> 8 Procedure 02/12/19 15:53:28 Banquet Prep Cook: SUSANSLOAN Modifier: SUSANSLOAN 7 <*> Time In 02/12/19 15:55:00 7 <*> Procedure Aortogram Abdominal with Runoff(Right), Arterial Stent Endovascular(Right) 02/12/19 15:51:08 Banquet Prep Cook: SUSANSLOAN Modifier: SUSANSLOAN 7 <*> Procedure Arterial Stent Endovascular(Right) 02/12/19 15:50:49 Banquet Prep Cook: SUSANSLOAN Modifier: SUSANSLOAN 7 <*> Time Out 02/12/19 15:48:00 7 <*> Procedure Arterial Stent Endovascular(Right) 02/12/19 15:50:15 Banquet Prep Cook: SUSANSLOAN Modifier: SUSANSLOAN 7 <+> Role Performed 7 <*> Procedure Arterial Stent Endovascular(Right) 02/12/19 15:49:22 Banquet Prep Cook: EANAPIER Modifier: SUSANSLOAN 1 <+> Time Out 1 <*> Procedure Aortogram Abdominal with Runoff(Right), Arterial Stent Endovascular(Right) 2 <+> Time Out 2 <*> Procedure Aortogram Abdominal with Runoff(Right), Arterial Stent Endovascular(Right) 3 <+> Time Out 3 <*> Procedure Aortogram Abdominal with Runoff(Right), Arterial Stent Endovascular(Right) 4 <+> Time Out 4 <*> Procedure Aortogram Abdominal with Runoff(Right), Arterial Stent Endovascular(Right) 5 <+> Time Out 5 <*> Procedure Aortogram Abdominal with Runoff(Right), Arterial Stent Endovascular(Right) 6 <+> Time Out 6 <*> Procedure Aortogram Abdominal with Runoff(Right), Arterial Stent Endovascular(Right) <+> 7 Case Attendee <+> 7 Time In <+> 7 Time Out <+> 7 Procedure 02/12/19 14:50:28 Banquet Prep Cook: EANAPIER Modifier: EANAPIER 1 <*> Procedure Aortogram Abdominal with Runoff(Right) 2 <*> Procedure Aortogram Abdominal with Runoff(Right) 3 <*> Procedure Aortogram Abdominal with Runoff(Right) 4 <*> Procedure Aortogram Abdominal with Runoff(Right) 5 <*> Procedure Aortogram Abdominal with Runoff(Right) 6 <*> Procedure Aortogram Abdominal with Runoff(Right) 02/12/19 14:30:54 Banquet Prep Cook: EANAPIER Modifier: EANAPIER 1 <*> Procedure Aortogram Abdominal with Runoff(Right) 2 <*> Procedure Aortogram Abdominal with Runoff(Right) 3 <*> Procedure Aortogram Abdominal with Runoff(Right) 4 <*> Procedure Aortogram Abdominal with Runoff(Right) 5 <*> Procedure Aortogram Abdominal with Runoff(Right) 6 <+> Time In 6 <*> Procedure Aortogram Abdominal with Runoff(Right) 02/12/19 14:24:03 Banquet Prep Cook: EANAPIER Modifier: EANAPIER 1 <*> Case Attendee TONY PEÑA MD-JESUS 1 <*> Role Performed Surgeon/Proceduralist, First 1 <*> Time In 02/12/19 13:51:00 1 <*> Procedure Aortogram Abdominal with Runoff(Right) 2 <*> Case Attendee Adilene Dhillon RN 2 <*> Role Performed Air Drier, First 2 <*> Time In 02/12/19 13:51:00 2 <*> Procedure Aortogram Abdominal with Runoff(Right) 3 <*> Case Attendee Mayra Castrejon, RadTech 3 <*> Role Performed Netezza Developer 3 <*> Time In 02/12/19 13:51:00 3 <*> Procedure Aortogram Abdominal with Runoff(Right) 4 <*> Case Attendee Coco Pfeiffer, Cardiovascular Netezza Developer 4 <*> Role Performed Netezza Developer 4 <*> Time In 02/12/19 13:51:00 4 <*> Procedure Aortogram Abdominal with Runoff(Right) 5 <*> Case Attendee EVERETT FREED INFORMATION ASSURANCE MANAGER 5 <*> Role Performed INFORMATION ASSURANCE MANAGER/Nurse Finishing Range Feeder 5 <*> Time In 02/12/19 13:51:00 5 <*> Procedure Aortogram Abdominal with Runoff(Right) Entry 6 was deleted. Higher numbered entries shifted one position to fill the gap. <-> 6 Case Attendee MUSTAPHA DUTTON MD-ANS <-> 6 Role Performed Anesthesiologist of Record <-> 6 Time In 02/12/19 13:51:00 <-> 6 Procedure Aortogram Abdominal with Runoff(Right) 02/12/19 14:15:54 Banquet Prep Cook: HARSHPILUIS Modifier: EANAPIER <+> 1 Procedure 2 <+> Time In 2 <*> Procedure Aortogram Abdominal with Runoff(Right) 3 <+> Time In 3 <*> Procedure Aortogram Abdominal with Runoff(Right) 4 <+> Time In 4 <*> Procedure Aortogram Abdominal with Runoff(Right) 5 <+> Time In 5 <*> Procedure Aortogram Abdominal with Runoff(Right) 6 <+> Time In 6 <*> Procedure Aortogram Abdominal with Runoff(Right) 02/12/19 14:13:18 Banquet Prep Cook: JONN Modifier: EANAPIER <+> 2 Case Attendee <+> 2 Role Performed <+> 2 Procedure <+> 3 Case Attendee <+> 3 Role Performed <+> 3 Procedure <+> 4 Case Attendee <+> 4 Role Performed <+> 4 Procedure <+> 5 Case Attendee <+> 5 Role Performed <+> 5 Procedure <+> 6 Case Attendee <+> 6 Role Performed <+> 6 Procedure [facility] IntraOp Case Times Entry 1 Patient In Room Time 02/12/19 13:51:00 Out Room Time 02/12/19 15:09:00 Anesthesia Start Time 02/12/19 13:51:00 Stop Time 02/12/19 15:09:00 Surgery / Procedure Times Start Time 02/12/19 14:12:00 Stop Time 02/12/19 15:00:00 Last Modified By: Lexus Linda Rn 02/12/19 15:21:58 [facility] IntraOp Case Times Audit 02/12/19 15:21:58 Banquet Prep Cook: JONN Modifier: MEDARDO <+> 1 Out Room Time <+> 1 Stop Time <+> 1 Stop Time 02/12/19 14:11:48 Banquet Prep Cook: HARSHPILUIS Modifier: EANAPIER <+> 1 Start Time [facility] IntraOp Communication Entry 1 Communication To Family/Significant other Comment START Date and Time 02/12/19 14:13:00 Last Modified By: Adilene Dhillon RN 02/12/19 14:12:21 [facility] IntraOp Departure from OR Entry 1 Integumentary Assessment Integumentary WDL Assessment WDL Transfer/Handoff Transfer to Other Handoff Method Phone call Post-op Transport Stretcher/rney Via Patient Transport Lexus Linda Rn Accompanied by Transfer/Handoff PT TRANSPORTED TO [facility] Last Modified By: Lexus Linda Rn 02/12/19 15:48:30 General Comments: CALLED TO Arthur Gonzalez NURSE [facility] IntraOp Departure from OR Audit 02/12/19 15:49:29 Banquet Prep Cook: MEDARDO Modifier: MEDARDO <+> 1 Patient Transport Accompanied by [facility] IntraOp Dressing and Packing Entry 1 Type Dressing Location OPSITE Wound Dressing Item 4x4's Applied By TONY PEÑA MD-JESUS Other Comments TEGADERM Last Modified By: Adilene Dhillon RN 02/12/19 14:09:39 [facility] IntraOp Fire Risk Assessment Entry 1 Fire Info Surgical Site or 0- No Incision Above the Xyphoid Open O2 Source 1- Yes (Mask or Cannula) Available Ignition 0- No (ESU, Laser, Light Source) Fire Risk 1 Assessment Score Fire Score Fire Risk Yes Assessment Complete Fire Risk Adilene Dhillon RN Assessment Verified By Fire Risk 02/12/19 14:14:00 Assessment Verified Date/Time Fire Risk Standard Fire Yes Safety Precautions Followed Last Modified By: Adilene Dhillon RN 02/12/19 14:09:55 [facility] IntraOp Fire Risk Assessment Audit 02/12/19 14:13:31 Banquet Prep Cook: EANAPIER Modifier: EANAPIER <+> 1 Fire Risk Assessment Verified By <+> 1 Fire Risk Assessment Verified Date/Time 02/12/19 14:12:26 Banquet Prep Cook: EANAPIER Modifier: EANAPIER 1 <-> Fire Risk Assessment Verified 02/12/19 14:10:00 Date/Time [facility] IntraOp General Case Associate Professor Of Surgery 1 Case Information OR OR 20 [facility] Case Level 1 Room Verified Yes Wound Class I - Clean Specialty SN Endovascular Anesthesia Type MAC ASA Class 3 Diagnosis Preop Diagnosis BILATERAL LOWER EXTREMITY CLAUDICATION Postop Same As Preop No Postop Diagnosis SEE MD NOTE Last Modified By: Adilene Dhillon RN 02/12/19 14:13:47 [facility] IntraOp General Case Data Audit 02/12/19 14:20:37 Banquet Prep Cook: HARSHPILUIS Modifier: EANAPIER <+> 1 Preop Diagnosis [facility] IntraOp Implant Log Entry 1 Entry 2 Entry 3 Type Implant (Synthetic) Implant (Synthetic) Implant (Synthetic) Implant Log Implant Type Other Tissue Implant Type Implant STENT LS EXP VASC CVR [id number] STENT LS EXP VASC CVR Identification [id number] Description Implant Quantity 1 1 1 Implant Site LEFT COMMON ILIAC ARTERY RIGHT COMMON ILIAC RIGHT COMON ILIAC ARTERY ARTERY Implant [id number] Identification Model Number Implant Identification Serial Number Implant [id number] Identification Lot Number Implant Cr Bard:Peripheral Vasc Cr Bard:Peripheral Vasc Identification Agency Manager Name: Implant [id number] Identification Catalog Number Implant Size 7.9 X 24.6 MM 7.9 X 37 MM Implant Has an Yes Yes Yes Expiration Date Implant Expiration 03/11/22/21 11/22/21 Date Wasted Radioactive Material Time Implanted Tissue Implant Continue for Tissue Implant Documentation Tissue Identification Number Graft Prep Per Agency Manager Instructions: Tissue Preparation Method: Reconstitution Solution: Reconstitution Solution Lot Number Reconstitution Solution Expiration Date: Thawing Solution Thawing Solution Lot Number Thawing Solution Expiration Date Preparation Materials, Other Preparation Materials, Other Lot Number Preparation Materials, Other Expiration Date Tissue Prepared/Processed By Agency Manager Paperwork Completed Implant Type Comment Last Modified By: Adilene Dhillon RN Napier, Elizabeth A, RN Sloan, Susan, Rn 02/12/19 14:37:35 02/12/19 14:39:27 02/12/19 15:46:28 Entry 4 Entry 5 Entry 6 Type Implant (Synthetic) Implant (Synthetic) Implant (Synthetic) Implant Log Implant Type Other Tube(s) Other Tissue Implant Type Implant STNT BLLN ENDO VBX DEVICE MYNX NUT ROASTER 6F/ 7F DEVICE MYNX NUT ROASTER 6F/ 7F Identification [id number] Description Implant Quantity 1 1 1 Implant Site RIGHT EXTERNAL ILIAC RIGHT FEMORAL LEFT FEMORAL ARTERY ARTERY Implant [id number] Identification Model Number Implant [id number] Identification Serial Number Implant [id number] Identification Lot Number Implant [employer]:Med Prdt Access Closure Access Closure Identification Agency Manager Name: Implant [id number] Identification Catalog Number Implant Size Implant Has an Yes Yes Yes Expiration Date Implant Expiration 07/29/21 01/22/21 01/22/21 Date Wasted Radioactive Material Time Implanted Tissue Implant Continue for Tissue Implant Documentation Tissue Identification Number Graft Prep Per Agency Manager Instructions: Tissue Preparation Method: Reconstitution Solution: Reconstitution Solution Lot Number Reconstitution Solution Expiration Date: Thawing Solution Thawing Solution Lot Number Thawing Solution Expiration Date Preparation Materials, Other Preparation Materials, Other Lot Number Preparation Materials, Other Expiration Date Tissue Prepared/Processed By Agency Manager Paperwork Completed Implant Type Comment Last Modified By: Lexus Linda Rn Sloan, Susan, Rn Sloan, Susan, Rn 02/12/19 15:46:28 02/12/19 15:46:28 02/12/19 15:46:28 [facility] IntraOp Implant Log Audit 02/12/19 15:46:28 Banquet Prep Cook: EANAPIER Modifier: MEDARDO 1 <*> Implant Identification Description STENT LS EXP VASC CVR [id number] <+> 3 Implant Identification Description <+> 3 Implant Identification Lot Number <+> 3 Implant Identification Agency Manager Name: <+> 3 Implant Expiration Date <+> 3 Implant Site <+> 3 Implant Quantity <+> 3 Implant Identification Catalog Number <+> 3 Implant Type <+> 3 Implant Identification Model Number <+> 3 Implant Has an Expiration Date <+> 3 Type <+> 4 Implant Identification Description <+> 4 Implant Identification Serial Number <+> 4 Implant Identification Agency Manager Name: <+> 4 Implant Expiration Date <+> 4 Implant Site <+> 4 Implant Quantity <+> 4 Implant Identification Catalog Number <+> 4 Implant Type <+> 4 Implant Identification Model Number <+> 4 Implant Has an Expiration Date <+> 4 Type <+> 5 Implant Identification Description <+> 5 Implant Identification Lot Number <+> 5 Implant Identification Agency Manager Name: <+> 5 Implant Expiration Date <+> 5 Implant Site <+> 5 Implant Quantity <+> 5 Implant Identification Catalog Number <+> 5 Implant Type <+> 5 Implant Identification Model Number <+> 5 Implant Has an Expiration Date <+> 5 Type <+> 6 Implant Identification Description <+> 6 Implant Identification Agency Manager Name: <+> 6 Implant Expiration Date <+> 6 Implant Site <+> 6 Implant Quantity <+> 6 Implant Identification Catalog Number <+> 6 Implant Type <+> 6 Implant Identification Model Number <+> 6 Implant Has an Expiration Date <+> 6 Type 02/12/19 14:39:27 Banquet Prep Cook: JONN Modifier: EANAPIER <+> 2 Implant Identification Description <+> 2 Implant Identification Lot Number <+> 2 Implant Size <+> 2 Implant Expiration Date <+> 2 Implant Site <+> 2 Implant Quantity <+> 2 Implant Has an Expiration Date <+> 2 Type [facility] IntraOp Intraoperative Assessment Entry 1 Handoff Method Bedside/Face to face Valid History / Yes Physical in Chart Preoperative Yes Checklist Reviewed/Evaluated Allergies Reviewed Yes Patient is Latex No Sensitive Isolation Not applicable Precautions Noted Level of WDL Consciousness (WDL = Alert, Oriented to Person, Place, and Time) Skin Assessment No Verified Present Upon IVs Arrival to OR Last Modified By: Adilene Dhillon RN 02/13/19 06:58:24 [facility] IntraOp Intraoperative Assessment Audit 02/13/19 06:58:24 Banquet Prep Cook: EANAPIER Modifier: EANAPIER 1 <*> Skin Assessment Verified Yes 1 <+> Handoff Method [facility] Intra Intraoperative Equipment Entry 1 Type Monitoring Equipment Intraop Monitoring Electrocardiogram Three lead placement (ECG) Electrode Placement Blood Pressure Non-Invasive BP Device Source Blood Pressure Arm, right upper Location Pulse Oximeter Hand, left Probe Site Antiembolic Devices Scopes Photo/Video Documentation Last Modified By: Adilene Dhillon RN 02/12/19 14:15:38 [facility] IntraOp Medication Admin Entry 1 Entry 2 Entry 3 Medication/Irrigant CESAR VISIPAQUE 320MG 150 lidocaine 1% 50ml vial CESAR NACL 0.9PCT HPRN 200ML --[id number] - [id number] 1000U .5L --[id number] Combo Med List Time Administered Route of CONTRAST LOCAL IRRIGATION/FLUSH Administration Dose Dose 90 10 2000 Unit of Measure ml ml units Volume Administered By TONY PEÑA MD-SUR ABEDI, NICK NIMA, MD-SUR ABEDI, NICK NIMA, MD-SUR Procedure Irrigation Irrigant Volume In Irrigant Volume Out Last Modified By: Adilene Dhillon RN Napier, Elizabeth A, RN Napier, Elizabeth A, RN 02/12/19 14:14:13 02/12/19 14:14:13 02/12/19 14:14:13 [facility] IntraOp Medication Admin Audit 02/13/19 06:57:26 Banquet Prep Cook: EANAPIER Modifier: EANAPIER <+> 1 Dose [facility] IntraOp Patient Positioning Entry 1 Procedure Aortogram Abdominal with Runoff(Right), Arterial Stent Endovascular(Right) Body Position Supine Left Arm Position Tucked and padded at side Right Arm Position Tucked and padded at side Left Leg Position Uncrossed, parallel Right Leg Position Uncrossed, parallel Feet Uncrossed Yes Pressure Points Yes Checked Positioning Devices Head Rest, Safety Strap, Thighs, Sled Arm Rest, Pad, Arm, Pad, Heel Device Position UNP'S Positioned By Adilene Dhillon RN, EVERETT FREED CRNA Position Verified Positioning Yes Verified by Anesthesia Positioning Yes Verified by Surgeon Last Modified By: Adilene Dhillon RN 02/13/19 06:59:18 [facility] IntraOp Patient Positioning Audit 02/13/19 06:59:18 Banquet Prep Cook: JONN Modifier: EANAPIER 1 <*> Procedure Aortogram Abdominal with Runoff(Right), Arterial Stent Endovascular(Right) 1 <*> Positioning Devices Head Rest, Safety Strap, Thighs, Sled Arm Rest 1 <*> Positioned By TONY PEÑA MD-JESUS 02/12/19 14:50:30 Banquet Prep Cook: HARSHPILUIS Modifier: EANAPIER 1 <*> Procedure Aortogram Abdominal with Runoff(Right) [facility] IntraOp Sign In Entry 1 Patient, Site, Yes Procedure Identified Surgical Consent Yes Confirmed Relevant Surgical Yes Documents Available Surgical Site N/A Marked by person performing procedure Anesthesia Machine Yes Check Completed Medication Checks Yes Completed Allergies Yes Airway Difficult No Airway/Aspiration Risk Difficult Yes Airway/Aspiration Intervention Equipment Available Blood Loss Risk No Blood Loss Yes Intervention Equipment Prepared and Ready Hypothermia Risk Yes Warming Measures Yes Taken Last Modified By: Adilene Dhillon RN 02/12/19 14:14:44 [facility] IntraOp Sign Out Entry 1 RN Confirmation Surgical Yes Procedure(s) Identified Instrument, Sponge N/A and Sharps Counts Correct/Documented Equipment Problems N/A Documented Specimen Labeled N/A Correctly Urinary Catheter N/A Documented in IView House Patient Yes Recovery Concerns Reviewed with Anesthesia Provider, Surgeon and RN House Patient Yes Management Concerns Reviewed with Anesthesia Provider, Surgeon and RN Safety Checklist Yes Elements Complete? RN Sign Out Adilene Dhillon RN Signature RN Sign Out 02/12/19 15:00:00 Signature Date/Time Plan of Care Outcome - [...] related to extraneous objects Last Modified By: Adilene Dhillon RN 02/12/19 14:15:04 [facility] IntraOp Sign Out Audit 02/12/19 15:49:49 Banquet Prep Cook: JONN Modifier: TANMAYANSLOAN <+> 1 RN Sign Out Signature Date/Time 02/12/19 14:16:46 Banquet Prep Cook: HARSHPILUIS Modifier: EANAPIER 1 <*> Urinary Catheter Documented in IView N/A [facility] IntraOp Skin Prep Entry 1 Procedure Aortogram Abdominal with Runoff(Right), Arterial Stent Endovascular(Right) Prescribed N/A Pre-Surgical Prep Completed Prep Area BILATERAL GROINS Intraop Prep Integumentary WDL Assessment WDL Prep Agents Chloraprep Prep by Adilene Dhillon RN Hair Removal Methods No hair removal performed Last Modified By: Adilene Dhillon RN 02/12/19 14:13:55 [facility] IntraOp Skin Prep Audit 02/12/19 14:50:30 Banquet Prep Cook: JONN Modifier: EANAPIER 1 <*> Procedure Aortogram Abdominal with Runoff(Right) [facility] IntraOp Surgical Procedures Entry 1 Entry 2 Procedure Aortogram Abdominal Arterial Stent with Runoff Endovascular Modifiers Right Right Additional (AORTOGRAM WITH RT LEG Procedure STENTING. Description Primary Procedure Yes No Primary Surgeon TONY PEÑA MD-SUR ABEDI, NICK NIMA, MD-SUR Start 02/12/19 14:12:00 02/12/19 14:12:00 Stop 02/12/19 15:00:00 02/12/19 15:00:00 Physician States Cecum Reached Anesthesia Type MAC MAC Specialty SN Endovascular SN Endovascular Wound Class I - Clean I - Clean Last Modified By: Adilene Dhillon RN Napier, Elizabeth A, RN 02/13/19 07:00:03 02/12/19 14:50:24 [facility] IntraOp Surgical Procedures Audit 02/13/19 07:00:03 Banquet Prep Cook: ROSALINDALOAN Modifier: EANAPIER 1 <*> Procedure Aortogram Abdominal with Runoff 1 <*> Additional Procedure Description (AORTOGRAM WITH RT LEG REVASCULARIZATION) 02/12/19 15:49:57 Banquet Prep Cook: JONN Modifier: SUSANSLOAN 1 <*> Procedure Aortogram Abdominal with Runoff 1 <+> Stop <+> 2 Stop 02/12/19 14:54:15 Banquet Prep Cook: HARSHPIER Modifier: EANAPIER 1 <*> Procedure Aortogram Abdominal with Runoff 02/12/19 14:50:24 Banquet Prep Cook: JONN Modifier: HARSHPIER <+> 2 Procedure <+> 2 Primary Procedure <+> 2 Modifiers <+> 2 Primary Surgeon <+> 2 Specialty <+> 2 Start <+> 2 Wound Class <+> 2 Anesthesia Type [facility] IntraOP Time Out Entry 1 Procedure to be Aortogram Abdominal Performed with Runoff(Right), Arterial Stent Endovascular(Right) Time Out Time Out Pause Time 02/12/19 14:11:00 All activity Yes suspended (unless life threatening [...] present, Performed in location of procedure after prepped/draped Antibiotic Yes Prophylaxis Administered Or In Progress Within the Last 60 Minutes Beta Camilla N/A Administered Venous N/A Thromboembolism Prophylaxis Required Anticipated Critical Events Surgeon None expected Anesthesia Provider None expected Nursing Assures Sterility of instruments, Equipment concerns or issues, Implant Availability [facility] Yes Labeled and Displayed Last Modified By: Adilene Dhillon RN 02/12/19 14:50:31 [facility] IntraOP Time Out Audit 02/12/19 14:50:31 Banquet Prep Cook: OJNN Modifier: YOHANACHASITYER 1 <*> Procedure to be Performed Aortogram Abdominal with Runoff(Right) [facility] IntraOp X-Ray and Images Entry 1 X-Ray/Imaging Type Fluoroscopy Fluoroscopy Type Fixed Parts Fabricator Name Mayra Castrejon [employer] Protective Devices Yes Used Last Modified By: Lexus Linda Rn 02/12/19 15:47:58 Case Comments <None> Finalized By: JONY MATHEW Document Signatures Signed By: Lexus Linda Rn 02/12/19 15:53 Adilene Dhillon RN 02/13/19 07:01 JONY MATHEW 02/13/19 11:43 Unfinalized History Date/Time Username Reason for Unfinalizing Freetext Reason for Unfinalizing 02/13/19 06:54 JONN Correct Documentation 02/13/19 11:36 JORGE Correct Billing Electronically signed by [facility], [facility] Conversion Locksmith Apprentice Cerner at 08/13/2022 11:13 AM CDT documented in this encounter Plan of Treatment Not on file documented as of this encounter Visit Diagnoses Not on filedocumented in this encounter
--- OUTSIDE RECORDS SUMMARY | 2024-10-10 13:21 | XMS_ITS | Encounter Summary ---
Author Organization [employer] Address [address] [place] [address] Care Team Providers Care Quality Assurance Monitor Chassis Name Role Phone Unavailable Primary Care Provider Unavailabl e Encounter Details Date Type Department Care Team (Late st Contact Info) Description 02/12/2019 Transcribed Document [facility] Family Medicine [address] [place] [address] ProviderRegina MD [address], [place] [address] Social History Tobacco Use Types Packs/Day Years Used Date Smoking Tobacco: Never Assessed Comments Unknown Sex and Gender Information Value Date Recorded Sex Assigned at Not on file Legal Sex Female 5:00 PM CDT Gender Identity Not on file Sexual Orientation Not on file documented as of this encounter Miscellaneous Notes * Cerner Conversion Note - Regina Henley MD - 02/12/2019 5:18 PM CDT [facility] [place] [address] THOMAS GTZ SRIRAM :1955 Visit Time:02/12/2019 Your Visit Summary Your Care Team Admitting Physician - TONY PEÑA MD-SUR Attending Physician - TONY PEÑA MD-SUR Primary Care Physician - JACKIE BABIN MD-FAM Referring Physician - JACKIE BABIN MD-FAM PHY, NOT LISTED Your Diagnosis Atherosclerosis of [place] arteries of extremities with intermittent claudication, unspecified extremity, Atherosclerosis of [place] arteries of extremities with intermittent claudication, unspecified extremity Discharge Vitals Heart Rate (Monitored) 90 Respiratory Rate 22 Blood Pressure 135/68 What to do next Instructions From Your Care Team Diet after Discharge: Resume usual diet as tolerated, _, _ Fluid Restriction after Discharge: _ Activity after Discharge: _, Rest and relax today, No strenuous activity Lifting Restrictions: No heavy lifting over 10 pounds for 1 week. Weight Bearing: _ Bedrest: _ Driving after Discharge: Do not drive for 24 hours May Return to Work/School: Showering/Bathing: May shower tomorrow, No tub bathing, soaking or swimming for 3-5 days. Notify Provider of: Wound/Incision Care after Discharge: Keep operative site/wound site clean and dry, _ Medical Equipment for Home Use: Home Health Services: Community Services: If bleeding or a lump occurs at either groin site, lie down, hold direct pressure and call 911. Discharge Follow Up Instructions: follow-up in 2 weeks.Please schedule Ankle-Brachial Index([facility]) with followup appointment. Activity: Discharge Activity: No heavy lifting over 10 lbs, Avoid Strenuous Activity Until: for 1 week Follow-Up Appointments Follow Up with TONY PEÑA MD-JESUS When 02/27/2019 02:00 PM EST Comments Appointment has been made with [facility]. Where: [address] [place] [phone] Medications What How Much When Instructions Next Dose acetaminophen-hydrocodone ([place] 7.5 mg-325 mg oral tablet) 1 Tablet(s) [...] citalopram (CeleXA) 20 Milligram(s) Oral Every Day diazePAM (Valium) 5 [...] pt usually takes one but occ two ergocalciferol (Vitamin D2) 50,000 International Units Oral Tuesday fluticasone nasal (Flonase) 2 sprays Nostrils Both [...] statins (Had a blackout, Dizziness, Muscle pain) Decongestant Demerol HCl (HALLUCINATIONS) iodine (Anaphylaxis) Immunizations This Visit No Immunizations Found Education Materials Groin Site Care Refer to this sheet in the next few weeks. These instructions provide you with information on caring for yourself after your procedure. Your caregiver may also give you more specific instructions. Your treatment has been planned according to current medical practices, but problems sometimes occur. Call your caregiver if you have any problems or questions after your procedure. HOME CARE INSTRUCTIONS ??? You may shower 24 hours after the procedure. Remove the bandage (dressing ) and gently wash the site with plain soap and water. Gently pat the site dry. ??? Do not apply powder or lotion to the site. ??? Do not sit in a bathtub, swimming pool, or whirlpool for 5 to 7 days. ??? No bending, squatting, or lifting anything over 10 pounds (4.5 kg) as directed by your caregiver. ??? Inspect the site at least twice daily. ??? Do not drive home if you are discharged the same day of the procedure. Have someone else drive you. ??? You may drive 24 hours after the procedure unless otherwise instructed by your caregiver. What to expect: ??? Any bruising will usually fade within 1 to 2 weeks. ??? Blood that collects in the tissue (hematoma ) may be painful to the touch. It should usually decrease in size and tenderness within 1 to 2 weeks. SEEK IMMEDIATE MEDICAL CARE IF: ??? You have unusual pain at the groin site or down the affected leg. ??? You have redness, warmth, swelling, or pain at the groin site. ??? You have drainage (other than a small amount of blood on the dressing). ??? You have chills. ??? You have a fever or persistent symptoms for more than 72 hours. ??? You have a fever and your symptoms suddenly get worse. ??? Your leg becomes pale, cool, tingly, or numb. ??? You have heavy bleeding from the site. Hold pressure on the site. Document Released: 05/14/2011 Document Revised: 07/03/2012 Document Reviewed: 05/14/2011 ExitCare?? Patient Information ??2013 [employer]. Angiogram, Care After This sheet gives you [...] and water are not available, use hand driver guard. ? Change your dressing as told by [...] contrast dye from your body. ??? Take lhmg-org-gouhtqc and prescription medicines only as told by [...] 10/28/2005 Document Revised: 03/16/2017 Document Reviewed: 03/16/2017 Recordant Interactive Patient Education ?? 2019 [employer] Inc. Moderate Conscious Sedation, Adult, Care After These [...] you are awake and alert. ??? Take ywlb-dbj-kwpvoxq and prescription medicines only as told by [...] 01/30/2014 Document Revised: 09/13/2016 Document Reviewed: 07/31/2016 ElseDIIME Interactive Patient Education ?? 2019 [employer]. Emergency Awareness and Preventative Care STROKE is [...] Assistance with quitting is available by contacting 7-364-GGYA-NOW. This is a free resource providing counseling, [...] This Visit (last charted value for your 02/12/2019 visit) Hematology 02/12/2019 11:10 AM Hemoglobin POC: 12.6 Gram/dL -- Normal range between ( 12.0 and 17.0 ) Hematocrit POC: 37.0 % -- Normal range between ( 38.0 and 51.0 ) General Chemistry 02/12/2019 11:10 AM eGFR : 102 mL/min/1.73m2 eGFR NonAfrican: 84 mL/min/1.73m2 Sodium POC: 136 mmol/L -- Normal range between ( 138 and 146 ) Ca Ioniz POC: 1.16 mmol/L -- Normal range between ( 1.12 and 1.32 ) Potassium POC: 4.7 mmol/L -- Normal range between ( 3.5 and 4.9 ) Creatinine POC: 0.7 mg/dL -- Normal range between ( 0.6 and 1.3 ) BUN POC: 4 mg/dL -- Normal range between ( 8 and 26 ) CO2 POC: 27.0 mmol/L -- Normal range between ( 24.0 and 29.0 ) Chloride POC: 101 mmol/L -- Normal range between ( 98 and 109 ) Glucose POC: 149 mg/dL -- Normal range between ( 70 and 105 ) Anion Gap POC: 13.0 mmol/L -- Normal range between ( 10.0 and 20.0 ) Patient Name:TRESA THOMAS SRIRAM I have received and understand this information and was given the opportunity to ask questions. Patient/Tenterer Name: Patient/Tenterer Signature: Relationship to Patient: Clinician/Hospital Tenterer Signature: Date: documented in this encounter Plan of Treatment Not on file documented as of this encounter Visit Diagnoses Not on filedocumented in this encounter
--- OUTSIDE RECORDS SUMMARY | 2024-10-10 13:21 | XMS_ITS | Encounter Summary ---
Author Organization [employer] Address [address] [place] [address] Care Team Providers Care Integrity Consultant Name Role Phone Unavailable Primary Care Provider Unavailabl e Encounter Details Date Type Department Care Team (Late st Contact Info) Description 02/12/2019 Transcribed Document [facility] [place] [address] [place] [address] ProviderRegina MD [address], [place] [address] Social History Tobacco Use Types Packs/Day Years Used Date Smoking Tobacco: Never Assessed Comments Unknown Sex and Gender Information Value Date Recorded Sex Assigned at Not on file Legal Sex Female 5:00 PM CDT Gender Identity Not on file Sexual Orientation Not on file documented as of this encounter Miscellaneous Notes * Cerner Conversion Note - Regina Henley MD - 02/12/2019 5:22 PM CDT [facility] [place] [address] THOMAS GTZ SRIRAM :1955 Visit Time:02/12/2019 Your Visit Summary Your Care Team Admitting Physician - TONY PEÑA MD-SUR Attending Physician - TONY PEÑA MD-SUR Primary Care Physician - JACKIE BABIN MD-FAM Referring Physician - JACKIE BABIN MD-FAM PHY, NOT LISTED Your Diagnosis Atherosclerosis of [place] arteries of extremities with intermittent claudication, unspecified extremity, Atherosclerosis of [place] arteries of extremities with intermittent claudication, unspecified [...] Appointment has been made with [facility]. Where: [address] [place] [phone] Medications What How Much When Instructions Next Dose acetaminophen-hydrocodone ([place] 7.5 mg-325 mg oral tablet) 1 Tablet(s) [...] Document Reviewed: 05/14/2011 ExitCare?? Patient Information ??2013 Grows Up. Angiogram, Care After This sheet gives you [...] and water are not available, use hand limousine rental clerk. ? Change your dressing as told by [...] contrast dye from your body. ??? Take ktze-iyj-yhtzcbo and prescription medicines only as told by [...] 10/28/2005 Document Revised: 03/16/2017 Document Reviewed: 03/16/2017 zumatek Interactive Patient Education ?? 2019 [employer]atek Inc. Moderate Conscious Sedation, Adult, Care After [...] you are awake and alert. ??? Take gsiy-bhk-oflgogj and prescription medicines only as told by [...] 01/30/2014 Document Revised: 09/13/2016 Document Reviewed: 07/31/2016 zumatek Interactive Patient Education ?? 2019 [employer]. clopidogrel (kloe PID oh grel) Plavix What is the most important information I should know about clopidogrel? You should not use this medicine if you have any active bleeding such as a stomach ulcer or bleeding in the brain. Clopidogrel increases your risk of bleeding, which can be severe or life-threatening. Call your doctor or seek emergency medical attention if you have bleeding that will not stop, if you have blood in your urine, black or bloody stools, or if you cough up blood or vomit that looks like coffee grounds. Do not stop taking clopidogrel without first talking to your doctor, even if you have signs of bleeding. Stopping clopidogrel may increase your risk of a heart attack or stroke. What is clopidogrel? Clopidogrel is used to lower your risk of having a stroke, blood clot, or serious heart problem after you've had a heart attack, severe chest pain (angina), or circulation problems. Clopidogrel may also be used for purposes not listed in this medication guide. What should I discuss with my healthcare provider before taking clopidogrel? You should not use clopidogrel if you are allergic to it, or if you have: ?? any active bleeding; or ?? a stomach ulcer or bleeding in the brain (such as from a head injury). Tell your doctor if you have ever had: ?? an ulcer in your stomach or intestines; or ?? a bleeding disorder or blood clotting disorder. Clopidogrel may not work as well if you have certain genetic factors that affect the breakdown of this medicine in your body. Your doctor may perform a blood test to make sure clopidogrel is right for you. This medicine is not expected to harm an unborn baby. However, taking clopidogrel within 1 week before childbirth can cause bleeding in the mother. Tell your doctor if you are or plan to become . You should not breast-feed while using this medicine. How should I take clopidogrel? Follow all directions on your prescription label and read all medication guides or instruction sheets. Use these medicines exactly as directed. Clopidogrel can be taken with or without food. Clopidogrel is sometimes taken together with aspirin. Take aspirin only if your doctor tells you to. Clopidogrel keeps your blood from coagulating (clotting) and can make it easier for you to bleed, even from a minor injury. Contact your doctor or seek emergency medical attention if you have any bleeding that will not stop. You may need to stop using clopidogrel for a short time before a surgery, medical procedure, or dental work. Any healthcare provider who treats you should know that you are taking clopidogrel. Do not stop taking clopidogrel without first talking to your doctor, even if you have signs of bleeding. Stopping the medicine could increase your risk of a heart attack or stroke. Store at room temperature away from moisture and heat. What happens if I miss a dose? Take the medicine as soon as you can, but skip the missed dose if it is almost time for your next dose. Do not take two doses at one time. What happens if I overdose? Seek emergency medical attention or call the Poison Help line at . Overdose can cause excessive bleeding. What should I avoid while taking clopidogrel? Avoid alcohol. It can increase your risk of stomach bleeding. Avoid activities that may increase your risk of bleeding or injury. Use extra care to prevent bleeding while shaving or brushing your teeth. If you also take aspirin: Ask a doctor or pharmacist before using medicines for pain, fever, swelling, or cold/flu symptoms. They may contain ingredients similar to aspirin (such as salicylates, ibuprofen, ketoprofen, or naproxen). Taking these products together can increase your risk of bleeding. What are the possible side effects of clopidogrel? Get emergency medical help if you have signs of an allergic reaction: hives; difficult breathing; swelling of your face, lips, tongue, or throat. Clopidogrel increases your risk of bleeding, which can be severe or life-threatening. Call your doctor or seek emergency medical attention if you have bleeding that will not stop, if you have blood in your urine, black or bloody stools, or if you cough up blood or vomit that looks like coffee grounds. Also call your doctor at once if you have: ?? pale skin, easy bruising, purple spots under your skin or in your mouth; ?? jaundice (yellowing of your skin or eyes); ?? fast heartbeats, shortness of breath; ?? headache, fever, weakness, feeling tired; ?? little or no urination; ?? a seizure; or ?? signs of a blood clot--sudden numbness or weakness, confusion, problems with vision or speech. This is not a complete list of side effects and others may occur. Call your doctor for medical advice about side effects. You may report side effects to FDA at 4-490-UFZ-7882. What other drugs will affect clopidogrel? Certain other medicines may increase your risk of bleeding, including aspirin. Avoid taking aspirin unless your doctor tells you to. Tell your doctor about all your other medicines, especially: ?? any other medicines to treat or prevent blood clots; ?? a stomach acid intake worker such as omeprazole, Nexium, or Prilosec; ?? an antidepressant; ?? an opioid medication; ?? a blood thinner--warfarin, Coumadin, Jantoven; or ?? NSAIDs (nonsteroidal anti-inflammatory drugs)--ibuprofen (Advil, Motrin), naproxen (Aleve), celecoxib, diclofenac, indomethacin, meloxicam, and others. This list is not complete. Other drugs may affect clopidogrel, including prescription and qtgv-cmk-grrtvmg medicines, vitamins, and herbal products. Not all possible drug interactions are listed here. Where can I get more information? Your pharmacist can provide more information about clopidogrel. Remember, keep this and all other medicines out of the reach of children, never share your medicines with others, and use this medication only for the indication prescribed. Every effort has been made to ensure that the information provided by [employer] is accurate, up-to-date, and complete, but no guarantee is made to that effect. Drug information contained herein may be time sensitive. [employer] information has been compiled for use by healthcare practitioners and consumers in the [place] and therefore [employer] does not warrant that uses outside of the [place] are appropriate, unless specifically indicated otherwise. [employer]'s drug information does not endorse drugs, diagnose patients or recommend therapy. [employer] drug information is an informational resource designed to assist licensed healthcare practitioners in caring for their patients and/or to serve consumers viewing this service as a supplement to, and not a substitute for, the expertise, skill, knowledge and judgment of healthcare practitioners. The absence of a warning for a given drug or drug combination in no way should be construed to indicate that the drug or drug combination is safe, effective or appropriate for any given patient. [employer] does not assume any responsibility for any aspect of healthcare administered with the aid of information [employer] provides. The information contained herein is not intended to cover all possible uses, directions, precautions, warnings, drug interactions, allergic reactions, or adverse effects. If you have questions about the drugs you are taking, check with your doctor, nurse or pharmacist. Copyright 0686-9783 [employer]i. Version: 15.. Revision Date: 02/13/2018. Emergency Awareness and Preventative Care STROKE is [...] Assistance with quitting is available by contacting 3-479-TFSW-NOW. This is a free resource providing counseling, [...] was given the opportunity to ask questions. Patient/Propeller Driven Airplane Mechanic Name: Patient/Propeller Driven Airplane Mechanic Signature: Relationship to Patient: Clinician/Hospital Propeller Driven Airplane Mechanic Signature: Date: Electronically signed by [facility], [facility] Conversion Research Dairy Farm Supervisor Andrew at 08/13/2022 11:17 AM CDT documented in this encounter Plan of Treatment Not on file documented as of this encounter Visit Diagnoses Not on filedocumented in this encounter
--- OUTSIDE RECORDS SUMMARY | 2024-10-10 13:21 | XMS_ITS | Encounter Summary ---
Author Organization [employer] Address [address] [place] [address] Care Team Providers Care Respiratory Therapy Aide Name Role Phone Unavailable Primary Care Provider Unavailabl e Encounter Details Date Type Department Care Team (Late st Contact Info) Description 02/12/2019 Transcribed Document [facility] Family Medicine [address] [place] [address] ProviderRegina MD [address], [place] [id number] Social History Tobacco Use Types Packs/Day Years Used Date Smoking Tobacco: Never Assessed Comments Unknown Sex and Gender Information Value Date Recorded Sex Assigned at Not on file Legal Sex Female 5:00 PM CDT Gender Identity Not on file Sexual Orientation Not on file documented as of this encounter Miscellaneous Notes * Cerner Conversion Note - Regina ProviderMD - 02/12/2019 2:12 PM CDT [facility] Main OR Preop Summary Primary Physician: TONY PEÑA MD-SUR Finalized Date/Time: 02/12/19 18:38:33 Pt. Name: THOMAS GTZ SRIRAM Reynolds/Sex: 1955 Female Med Rec #: [id number] Physician: TONY PEÑA MD-SUR Financial #: [id number] Pt. Type: O Room/Bed: HIS/11 Admit/Disch: 02/12/19 09:27:00 - 02/12/19 18:10:00 Institution: [facility] PreOp Case Times Entry 1 In Preop 02/12/19 09:40:00 Ready for Holding n/a Room Patient Ready for 02/12/19 11:13:00 Surgery Patient Out of Preop 02/12/19 13:49:00 Patient Out of n/a Holding Room Last Modified By: SHAHLA GOODMAN RN 02/12/19 18:38:24 Finalized By: SHAHLA GOODMAN RN Document Signatures Signed By: SHAHLA GOODMAN RN 02/12/19 18:38 documented in this encounter Plan of Treatment Not on file documented as of this encounter Visit Diagnoses Not on filedocumented in this encounter
--- OUTSIDE RECORDS SUMMARY | 2024-10-10 13:21 | XMS_ITS | Encounter Summary ---
Author Organization [employer] Address [address] [place] [address] Care Team Providers Care Hydropress Operator Name Role Phone Unavailable Primary Care Provider Unavailabl e Encounter Details Date Type Department Care Team (Late st Contact Info) Description 02/12/2019 Transcribed Document [facility] Radiology [address] [place] [address] Martinez Miller MD [facility] [place] [address] Social History Tobacco Use Types Packs/Day Years Used Date Smoking Tobacco: Never Assessed Comments Unknown Sex and Gender Information Value Date Recorded Sex Assigned at Not on file Legal Sex Female 5:00 PM CDT Gender Identity Not on file Sexual Orientation Not on file documented as of this encounter Miscellaneous Notes * Cerner Conversion Note - Martinez Miller MD - 02/12/2019 12:02 PM EDT Patient: THOMAS GTZ Age: 63 years Sex: Female : 1955 Associated Diagnoses: None Author: CHRIS LOVING, MANAGER GAMING Chief Complaint PAD Review of Systems ROS reviewed as documented in chart no change since last seen by surgeon [facility] Status Allergies: Allergic Reactions (Selected) Severe Statins- Had a blackout, muscle pain and dizziness. Severity Not Documented Decongestant- No reactions were documented. Demerol HCl- Hallucinations. Iodine- Anaphylaxis., Allergies (4) Active Reaction statins Muscle pain Decongestant None Documented Demerol HCl HALLUCINATIONS iodine Anaphylaxis Current medications: (Selected) Inpatient Medications Ordered Ancef: 2 Gram, 50 mL, 100 mL/Hr, IV Piggyback, 1-Time Benadryl: 50 mg, IV Push, 1-Time Lactated Ringers Injection intravenous solution 1,000 mL: 20 mL/Hr, IntraVENous Normal Saline Flush: 10 mL, IV Push, 1-Time Pepcid: 20 mg, IV Push, 1-Time SOLU-Medrol: 125 mg, IV Push, 1-Time lidocaine 1% injectable solution: 0.5 mL, IntraDermal, 1-Time, PRN: Other (See Comment) Documented Medications Documented Benadryl: See Instructions, 50 [...] skin and nails, Oral, Daily, 0 Refill(s) Casco 7.5 mg-325 mg oral tablet: 1 Tab, Oral, TID, PRN: as needed for pain, 0 Refill(s) Prevacid: 30 mg, Oral, Daily, 0 Refill(s) Spiriva: 18 mcg, Inhalation, BID, 0 Refill(s) Symbicort 160 mcg-4.5 mcg/inh inhalation aerosol: 2 Puff, Inhalation, BID, 0 Refill(s) Tagamet HB: See Instructions, 300 mg Oral at 1800 and MN day prior to procedure and 0600 on DOS, 0 Refill(s) Valium: 5 mg, Oral, QID, PRN: as needed for anxiety, 0 Refill(s) Vitamin D2: 50,000 Int Units, Oral, Tuesday, 0 Refill(s) Vitamin D3: 2,000 Int Units, [...] Medication hair, skin and nails, Oral, Daily Casco 7.5 mg-325 mg oral tablet 1 Tab, PRN, Oral, TID predniSONE See Instructions Prevacid 30 mg, Oral, Daily Spiriva 18 mcg, Inhalation, BID Symbicort 160 mcg-4.5 mcg/inh inhalation aerosol 2 Puff, Inhalation, BID Tagamet HB See Instructions tiZANidine 2 mg, PRN, Oral, TID Valium 5 mg, PRN, Oral, QID Vitamin D2 50,000 Int Units, Oral, Tuesday Vitamin D3 2,000 Int Units, Oral, Dennys Voltaren 1% topical gel 2 Gram, Topical, QID ZyrTEC 10 mg, Oral, BID , Medications (7) Active Scheduled: (5) #NaCl 0.9% *FLUSH* inj 10 mL 10 mL, IV Push, 1-Time ceFAZolin/D5w 2 Gram 50 mL, IV Piggyback, 1-Time diphenhydrAMINE 50 mg/1 mL inj 50 mg 1 mL, IV Push, 1-Time famotidine 20 mg/2 mL inj 20 mg 2 mL, IV Push, 1-Time methylPREDNISolone SUCCinate 125 mg/2 mL inj PF 125 mg 2 mL, IV Push, 1-Time Continuous: (1) lactated ringers 1,000 mL 1,000 mL, IntraVENous, 20 mL/Hr PRN: (1) lidocaine 1% *PF* inj 30 mL 0.5 mL, IntraDermal, 1-Time Problem list: All Problems Cervical spinal stenosis / SNOMED CT 593118423 / Confirmed Smoker / SNOMED CT 271179183 / Confirmed Sinusitis / SNOMED CT 36112617 / Confirmed Seasonal allergies / SNOMED CT 024094521 / Confirmed Restless leg / SNOMED CT 69710728 / Confirmed Colon polyps / SNOMED CT 145159610 / Confirmed Pneumonia / SNOMED CT 332151402 / Confirmed Peripheral vascular disease / SNOMED CT 8250437270 / Confirmed Peptic ulcer / SNOMED CT 04883783 / Confirmed Osteoporosis / SNOMED CT 415183015 / Confirmed Neuropathy, R arm / SNOMED CT 5434162496 / Confirmed Migraines / SNOMED CT 12475534 / Confirmed Skin cancer / SNOMED CT 9556939353 / Confirmed Hypertension / SNOMED CT 0848528738 / Confirmed Hyperlipidemia / SNOMED CT 37147279 / Confirmed Elevated cholesterol / SNOMED CT 22310821 / Confirmed Hiatal hernia / SNOMED CT 618064262 / Confirmed Hemorrhoids / SNOMED CT 578543256 / Confirmed H/O: TIA / SNOMED CT 710715004 / Confirmed GERD (gastroesophageal reflux disease) / SNOMED CT 929038816 / Confirmed Gastritis / SNOMED CT 0376812 / Confirmed Fibromyalgia / SNOMED CT 64923510 / Confirmed Fibroids / SNOMED CT 723602625 / Confirmed Endometriosis / SNOMED CT 6109281686 / Confirmed Diverticulitis / SNOMED CT 202020778 / Confirmed Sinus problem / SNOMED CT 7658807358 / Confirmed Known medical problems / SNOMED CT 346549235 / Confirmed white spots on MRI Known medical problems / SNOMED CT 195181832 / Confirmed anti nuclear A and A antibodies Constipation / SNOMED CT 02394902 / Confirmed COPD (chronic obstructive pulmonary disease) / SNOMED CT 52164299 / Confirmed Chronic cough / SNOMED CT 258246597 / Confirmed Chronic constipation / SNOMED CT 375070544 / Confirmed Stroke, possible / SNOMED CT 098079001 / Confirmed Bursitis / SNOMED CT 871989454 / Confirmed Bronchitis / SNOMED CT 14579235 / Confirmed Back pain / SNOMED CT 208148948 / Confirmed Arthritis / SNOMED CT 1482691 / Confirmed Anemia / SNOMED CT 667120387 / Confirmed Allergic rhinitis / SNOMED CT 858095895 / Confirmed, Active Problems (39) Allergic rhinitis Anemia Arthritis Back pain Bronchitis Bursitis Cervical spinal stenosis [...] L1 through S1 lumbar rodding and screws. Physical Examination VS/Measurements No qualifying data available General: Alert and oriented, No acute distress, obese. Eye: Pupils are equal, round and reactive to light, Extraocular movements are intact, glasses. HENT: Normocephalic, Normal hearing. Neck: Supple, Non-tender. Respiratory: Lungs are clear to auscultation, Respirations are non-labored. Cardiovascular: Normal rate, Regular rhythm, No gallop, murmur 2/6, phoebe LE 1+ edema, phoebe LE pedal pulses + per doppler. Gastrointestinal: Soft, Non-tender. Genitourinary: No costovertebral angle tenderness. Lymphatics: No lymphadenopathy neck, axilla, groin. Musculoskeletal: phoebe LE weakness, uses cane. Integumentary: Warm, Dry, [place]. Neurologic: Alert, Oriented. Psychiatric: Cooperative, Appropriate mood & affect. Review / Management Results review: No qualifying data available. Impression and Plan Condition: Stable. documented in this encounter Plan of Treatment Not on file documented as of this encounter Visit Diagnoses Not on filedocumented in this encounter
--- OUTSIDE RECORDS SUMMARY | 2024-10-10 13:21 | XMS_ITS | Encounter Summary ---
Author Organization [employer] Address [address] [place] [address] Care Team Providers Care Coal Trammer Name Role Phone Unavailable Primary Care Provider Unavailabl e Encounter Details Date Type Department Care Team (Late st Contact Info) Description 02/12/2019 Transcribed Document [facility] [place] [facility] [address] [place] [address] ProviderRegina MD [address], [place] [address] Social History Tobacco Use Types Packs/Day Years Used Date Smoking Tobacco: Never Assessed Comments Unknown Sex and Gender Information Value Date Recorded Sex Assigned at Not on file Legal Sex Female 5:00 PM CDT Gender Identity Not on file Sexual Orientation Not on file documented as of this encounter Miscellaneous Notes * Cerner Conversion Note - Regina Henley MD - 02/12/2019 5:20 PM CDT Patient Education Materials Follows: Groin Site Care Refer to this sheet [...] questions after your procedure. HOME CARE INSTRUCTIONS ? You may shower 24 hours after the procedure. Remove the bandage (dressing ) and gently wash the site with plain soap and water. Gently pat the site dry. ? Do not apply powder or lotion to the site. ? Do not sit in a bathtub, swimming pool, or whirlpool for 5 to 7 days. ? No bending, squatting, or lifting anything over 10 pounds (4.5 kg) as directed by your caregiver. ? Inspect the site at least twice daily. ? Do not drive home if you are discharged the same day of the procedure. Have someone else drive you. ? You may drive 24 hours after the procedure unless otherwise instructed by your caregiver. What to expect: ? Any bruising will usually fade within 1 to 2 weeks. ? Blood that collects in the tissue (hematoma ) may be painful to the touch. It should usually decrease in size and tenderness within 1 to 2 weeks. SEEK IMMEDIATE MEDICAL CARE IF: ? You have unusual pain at the groin site or down the affected leg. ? You have redness, warmth, swelling, or pain at the groin site. ? You have drainage (other than a small amount of blood on the dressing). ? You have chills. ? You have a fever or persistent symptoms for more than 72 hours. ? You have a fever and your symptoms suddenly get worse. ? Your leg becomes pale, cool, tingly, or numb. ? You have heavy bleeding from the site. Hold pressure on the site. Document Released: 05/14/2011 Document Revised: 07/03/2012 Document Reviewed: 05/14/2011 ExitCare? Patient Information ?2013 [employer]. Angiogram, Care After This sheet gives you [...] and water are not available, use hand records management coordinator. ? Change your dressing as told by [...] contrast dye from your body. ??? Take ghnl-cbp-abdfhjs and prescription medicines only as told by [...] 10/28/2005 Document Revised: 03/16/2017 Document Reviewed: 03/16/2017 [employer] Patient Education ? 2019 [employer] Moderate Conscious Sedation, Adult, Care After [...] you are awake and alert. ??? Take vloa-vwk-gczammb and prescription medicines only as told by [...] 01/30/2014 Document Revised: 09/13/2016 Document Reviewed: 07/31/2016 [employer] Patient Education ? 2019 [employer] Electronically signed by Ede Arevalo Conversion Director Of Development And Marketing [employer]ner at 08/13/2022 11:15 AM CDT documented in this encounter Plan of Treatment Not on file documented as of this encounter Visit Diagnoses Not on filedocumented in this encounter
--- OUTSIDE RECORDS SUMMARY | 2024-10-10 13:21 | XMS_ITS | Encounter Summary ---
Author Organization Healthcare Address [address] [place] [address] Care Team Providers Care Authorization Specialist Name Role Phone Mustapha James MD Primary Care Provider [phone] Miguel Lamb MD Unavailable [phone] Encounter Details Date Type Department Care Team (Late st Contact Info) Description 08/08/2024 Telephone [facility] Radiology [address] [place] [phone] Chaparrita Sarkar RN [facility] Social History Tobacco Use Types Packs/Day Years Used Date Smoking Tobacco: Some Days Cigarettes Smokeless Tobacco: Never Alcohol Use Standard Drinks/Week Comments Never 0 (1 standard drink = 0.6 oz pur e alcohol) PHQ-2 Answer Date Recorded Patient Health Questionnaire-2 Score 0 07/20/2024 PHQ-9 Answer Date Recorded Patient Health Questionnaire-9 Score 0 07/20/2024 Comments Unknown Sex and Gender Information Value Date Recorded Sex Assigned at Not on file Legal Sex Female 6:55 PM EDT Gender Identity Not on file Sexual Orientation Not on file documented as of this encounter Plan of Treatment Upcoming Encounters Date Type Department Care Team (Late st Contact Info) Description 01/04/2025 2:00 PM EDT Appointment Cardiac Imaging [address] [place] [phone] 01/04/2025 3:30 PM EDT Office Visit [facility] [place] [facility] [address] [place] [address] Miguel Lamb MD [address] [place] [address] documented as of this encounter Visit Diagnoses Not on filedocumented in this encounter Additional Health Concerns Assessment Noted Time PHQ-9 Depression Total Score: 0 07/21/19 25 11:35 AM EDT A fall risk assessment has been complete d for the patient 07/20/2024 11:35 AM EDT A Body Mass Index follow-up plan has been documented for the patient 07/20/2024 12:30 PM EDT documented as of this encounter Care Teams Authorization Specialist Relationship Specialty Start Date End Date Mustapha James MD [address] [place] [id number] PCP - General 09/05/20 Miguel Lamb MD [address] [place] [phone] Referring Physician Interventional Cardiology 08/16/24 documented as of this encounter
--- OUTSIDE RECORDS SUMMARY | 2024-10-10 13:21 | XMS_ITS | Referral Summary ---
Author Organization [employer] Address [address] [place] [address] Care Team Providers Care Middle School Pe Teacher Name Role Phone Unavailable Primary Care Provider [...] Date Mathew rded Speak language other than Georgian at home Not on file 05/13/2023 Want [...] Orientation Not on file Plan of Treatment Not on file
--- OUTSIDE RECORDS SUMMARY | 2024-10-10 13:21 | XMS_ITS | Encounter Summary ---
Author Organization [employer] Address [address] [place] [address] Care Team Providers Care Supervisor Refractory Products Name Role Phone Unavailable Primary Care Provider Unavailabl e Encounter Details Date Type Department Care Team (Late st Contact Info) Description 02/12/2019 Transcribed Document [facility] [place] [address] [place] [address] ProviderRegina [facility] [place] [place] [address] Social History Tobacco Use Types Packs/Day Years Used Date Smoking Tobacco: Never Assessed Comments Unknown Sex and Gender Information Value Date Recorded Sex Assigned at Not on file Legal Sex Female 5:00 PM CDT Gender Identity Not on file Sexual Orientation Not on file documented as of this encounter Miscellaneous Notes * Cerner Conversion Note - Regina ProviderMD - 02/12/2019 3:39 PM CDT Nursing Discharge Summary Entered On: 02/12/2019 15:39 EDT Performed On: 02/12/2019 15:39 EDT by NAOMI MONTES RN Discharge Documentation Discharge Date/Time : 02/12/2019 18:10 EDT Patient Disposition, General : Discharge NAOMI MONTES RN - 02/12/2019 18:03 EDT Discharge To : Home with ambulatory/outpatient follow-up Mode Of Departure, General Discharge : Private vehicle, Wheelchair Accompanied By, Discharge : Significant other IV Discontinued : Yes Personal Belongings With Patient : Yes Prescriptions Given to Patient : Yes Discharge Instructions Reviewed With, Opportunity For Questions Given : Patient, Significant other Patient Education Completed : Yes Teaching Method : Explanation, Printed materials Teaching Evaluation : Returns demonstration, Verbalizes understanding NAOMI MONTES RN - 02/12/2019 15:39 EDT documented in this encounter Plan of Treatment Not on file documented as of this encounter Visit Diagnoses Not on filedocumented in this encounter
--- OUTSIDE RECORDS SUMMARY | 2024-10-10 13:21 | XMS_ITS | Clinical Summary ---
Author Organization [facility] Address [address] [place] [address] Care Team Providers Care Masonry Installer Name Role Phone Mustapha James MD Primary Care Provider [phone] Miguel Lamb MD Unavailable [phone] Allergies Active Allergy Reactions Criticality Noted Date Comments Atorvastatin Unknown - Patient states they do not know rxn details Low 08/01/2019 Rosuvastatin Unknown - Patient states they do not know rxn details Low 07/18/2024 Meperidine Unknown - Patient states they do not know rxn details Low 07/18/2024 Iodinated Contrast Media Hives,Itching,S well ing High 08/08/2024 Difficulty swallowing. Iodine Hives,Itching,Swell ing High 07/18/2024 Difficulty swallowing. Pseudoephedrine Hcl Other - please document in the comment field Low 07/03/2019 TACHYCARDIA Statins Unknown - Patient states they do not know rxn details Low 07/18/2024 Medications diazePAM (Valium) 5 MG tablet Take 1 tablet by mouth 2 times a day. 07/24/19 20 Active fluticasone (Flonase) 50 MCG/ACT nasal spray Administer 1 spray into each nostril daily. 07/24/19 20 Active furosemide (Lasix) 20 MG tablet Take 1 tablet by mouth daily. 07/24/19 20 Active HYDROcodone-ac etaminophen ([place]) 7.5-325 MG tablet Take 1 tablet by mouth every 8 hours as needed. 07/24/19 20 Active lansoprazole (Prevacid) [address] capsule Take 1 capsule by mouth daily. 07/24/19 20 Active lisinopril 20 MG tablet Take 1 tablet by mouth daily. 07/24/19 20 Active Multiple Vitamins-Iron tablet Take 1 tablet by mouth daily. 07/24/19 Active aspirin 81 MG EC tablet Take 1 tablet by mouth daily. Active Evolocumab (Repatha) 140 MG/ML solution prefilled syringe Inject under the skin. Active levothyroxine (Synthroid, Levoxyl) 50 MCG tablet Take 1 tablet by mouth daily before breakfast. Active metoprolol succinate XL (Toprol-XL) 50 MG 24 hr tablet Take 1 tablet by mouth daily. Do not crush or chew. Active montelukast (Singulair) 10 MG tablet Take 1 tablet by mouth nightly. Active VITAMIN D, CHOLECALCIFERO L, PO Take by mouth. Active famotidine (Pepcid) 20 MG tablet Take 1 tablet by mouth twice a day. Active Fluticasone-Um eclidin-Vilant (Trelegy Ellipta) 100-62.5-25 MCG/ACT aerosol powder Inhale. Activ e cetirizine (ZyrTEC) 10 MG tablet Take 1 tablet by mouth daily. Active baclofen (Lioresal) 10 MG tablet Take by mouth 3 times a day. Active albuterol 108 (90 Base) MCG/ACT inhaler Inhale 2 puffs 1 time as needed for wheezing or shortness of breath. 08/30/19 25 Active Nexletol 180 MG tablet Take 1 tablet by mouth daily. 08/30/19 25 Active diphenhydrAMIN E (Benadryl) 50 MG tablet Take 1 tablet 1 hour prior to surgery 1 tablet 1 09/01/19 25 Active clopidogrel (Plavix) 75 MG tablet Take 1 tablet by mouth daily. 30 tablet 09/01/19 25 026 Active nitroglycerin (Nitrostat) 0.[address] 1 tablet under the tongue every 5 minutes as needed for chest pain. 30 tablet 09/19/19 25 026 Active nitroglycerin (Nitrostat) 0.[address] 1 tablet under the tongue every 5 minutes as needed for chest pain. 25 tablet 1 08/28/19 25 025 Discontinued predniSONE (Deltasone) 50 MG tablet Take 13 hours, 7 hours and 1 hour prior to surgery 3 tablet 1 09/01/19 25 025 Discontinued(St op Taking at Discharge) Active Problems Problem Noted Date Diagnosed Date S/P coronary artery stent placement 08/30/2024 BMI 33.0-33.9,adult 08/15/2024 Severe obesity (BMI 35.0-39.9) with comorbidity 07/20/2024 Nonrheumatic aortic valve stenosis 07/18/2024 Fatigue 07/18/2024 Dizziness 07/18/2024 Chest pain 07/18/2024 HFrEF (heart failure with reduced ejection fract ion) 07/24/2019 NSTEMI, initial episode of care 07/24/2019 S/P drug eluting coronary stent placement 2019 Coronary artery disease 07/17/2019 Encounters Date Type Department Care Team Description 09/18/2024 8:30 AM EDT - 09/18/2024 10:30 AM EDT Surgery Cardiac Project Engineer [address] [place] [address] Miguel Lamb MD Percutaneous coronary intervention [69278 (CPT )] 09/18/2024 7:17 AM EDT - 09/18/2024 3:19 PM EDT Hospital Encounter Cardiac Project Engineer [address] [place] [address] Miguel Lamb MD S/P coronary artery stent placement Discharge Disposition: Home or Self Care 08/30/2024 2:20 PM EDT - 08/30/2024 4:20 PM EDT Surgery Cardiac Project Engineer [address] [place] [address] Miguel Lamb MD Percutaneous coronary intervention [84180 (CPT )] 08/30/2024 1:09 PM EDT - 08/31/2024 1:48 PM EDT Hospital Encounter [facility] [address] [place] [id number] Miguel Lamb MD S/P coronary artery stent placement (Primary Dx); Nonrheumatic aortic valve stenosis Discharge Disposition: Home or Self Care 08/30/2024 Travel 08/27/2024 [facility] [place] [address] [facility] [place] [address] Renee Bravo RN 08/15/2024 10:45 AM EDT [facility] [place] [facility] [address], [address] [place] [address] Carrington Denny MD Peripheral vascular disease (CMS/HCC) (Primary Dx); Nonrheumatic aortic valve stenosis; Coronary artery disease involving [place]k coronary artery of nanw[place]k heart with angina pectoris (CMS/HCC); Tobacco abuse; Type 2 diabetes mellitus without complication, unspecified whether fdc insulin use 08/15/2024 8:43 AM EDT - 08/15/2024 11:59 PM EDT Hospital Encounter [facility] Rad[facility] [address] [place] [phone] Nonrheumatic aortic valve stenosis Discharge Disposition: Home or Self Care 08/15/2024 Travel 08/08/2024 Telephone [facility] [address] [place] [phone] Chaparrita Sarkar RN 07/20/2024 11:30 AM EDT Office Visit [facility] [address] [place] [address] Miguel Lamb MD Nonrheumatic aortic valve stenosis (Primary Dx); Coronary artery disease involving nanwalek coronary artery of nanwalek heart with angina pectoris (CMS/HCC) 07/20/2024 Refill [facility] [address] [place] [phone] Trae Chavez RN 07/20/2024 Travel from Last 3 Months Immunizations Immunization Administration Dates Next Due Influenza, high-dose, quadrivalent 01/23/2019 Pneumococcal, Unspecified 01/23/2019 Family History Medical History Relation Name Comments No Known Problems Father No Known Problems Mother Relation Name Status Comments Father Mother Social History Tobacco Use Types Packs/Day Years Used Date Smoking Tobacco: Some Days Cigarettes Smokeless Tobacco: Never Tobacco Cessation:Ready to Q uit: Not Asked; Counseling Given: Not Answered Alcohol Use Standard Drinks/Week Comments Never 0 [...] on file Sexual Orientation Not on file Last Filed Vital Signs Vital Sign Reading [...] Mass Index 36.4 09/18/2024 8:14 AM EDT Plan of Treatment Upcoming Encounters Date Type Department Care Team (Late st Contact Info) Description 01/04/2025 2:00 PM EDT Appointment Cardiac Imaging [address] [place] [address] 01/04/2025 3:30 PM EDT Office Visit [facility] [place] [address] [facility] [place] [address] Miguel Lamb MD [address] [place] [address] Health Maintenance Due Date Last Done Comments [facility]-Bone Density Scan 1953 [facility]-Hepatitis C Screening 1953 [facility]-Infant/Child/Adol SDOH Screenings 1953 Diabetes: Dental Exam 1963 [facility]- SDOH Screenings 1971 [facility]-Adult SDOH Screenings 1971 CT Colonography 1998 Colonoscopy 1998 FIT-DNA 1998 FIT 1998 FOBT 1998 Sigmoidoscopy 1998 [facility]-Colorectal Cancer Screening 1998 [facility]-Breast Cancer Screening 2003 [facility]-Zoster Vaccines (1 of 2) 2003 [facility]-Diabetes: Hemoglobin A1C 12/01/202212/2022, 07/07/2019, 07/04/2019 [id number] Vaccine ( season) 2023 02/24/2022, 04/01/2021, 08/06/2020, Additional history exists [facility]-Medicare Annual Wellness (AWV) 06/08/2025 06/08/2024, 03/31/2023 [facility]-DTaP,Tdap,and Td Vaccines (2 - Td or Tdap) 06/29/2025 06/30/2015 [facility]-Depression Screening 07/20/2025 07/20/2024, 06/24 [facility]-Pneumococcal Vaccine: 50+ Years Completed 03/31/2023, 01/23/2019, 09/30/2015 [facility]-RSV Vaccine: 60+ Years or Completed 08/04/2023 [facility]-Influenza Vaccine Completed 01/24/2024 , 03/31/2023, 03/02/2022, Additional history exists [facility]-Obesity Intervention Completed 025, 08/16/2024, 08/15/2024, Additional history exists HPV Vaccines Aged Out No longer eligi ble based on patient's age to complete this topic [facility]-HIB Vaccines Aged Out No longer e ligible based on patient's age to complete this topic [facility]-Hepatitis A Vaccines Aged Out No longer eligible based on patient's age to complete this topic [facility]-IPV Vaccines Aged Out No longer e ligible based on patient's age to complete this topic [facility]-Rotavirus Vaccines Aged Out No lo nger eligible based on patient's age to complete this topic Medical Devices Implanted Type Area Security Rover Device Identifier Shelf Expiration Date Model / Serial / Lot Stent Turner Manjit Rx 4.5mm X 12mm - [id number] Implanted:Qty: 1 on 08/30/2024 by Miguel Lamb MD at [facility]-[id number] 03/21/2027 [id number] UX / / [id number] Stent Coronary Turner Manjit Rx 3.00mm X 18mm - [id number] Implanted:Qty: 1 on 08/30/2024 by Miguel Lamb MD at [facility]-[id number] 06/14/2027 [id number] UX / / [id number] Stent Coronary Turner [place] Rx 2.75mm X 30mm - [id number] Implanted:Qty: 1 on 09/18/2024 by Miguel Lamb MD at [facility]-[id number] 03/25/2027 [id number] UX / / [id number] Stent Coronary Turner Manjit Rx 3.00mm X 26mm - [id number] Implanted:Qty: 1 on 09/18/2024 by Miguel Lamb MD at [facility]-[id number] 06/21/2027 [id number] UX / / [id number] Stent Coronary Turner Manjit Rx 3.50mm X 12mm - [id number] Implanted:Qty: 1 on 09/18/2024 by Miguel Lamb MD at [facility]315757 03/04/2027 [id number] UX / / [id number] Procedures Procedure Name Priority Date/Time Associated Diagnosis [...] PANEL, PLASMA Routine 09/18/2024 8:20 AM EDT N-TERMINAL PROBNP, PLASMA Routine 08/31/2024 3:59 AM EDT MAGNESIUM, PLASMA Routine 08/31/2024 3:5 9 AM EDT CBC W/O DIFFERENTIAL Routine 08/31/2024 3:59 AM EDT BASIC METABOLIC PANEL, PLASMA Routine [...] UNSOLICITED RESULTS Routine 08/30/2024 1:45 PM EDT BASIC METABOLIC PANEL, PLASMA STAT 08/30/2024 1:39 PM EDT CBC W/O DIFFERENTIAL STAT 08/30/2024 1:[address] ANGIO ABDOMEN PELVIS Routine 08/15/2024 9:20 AM EDT Nonrheumatic aortic valve stenosis CT ANGIO CHEST Routine 08/15/2024 9:20 AM EDT Nonrheumatic aortic valve stenosis HEMOGLOBIN A1C Routine 07/07/2019 2:34 AM EDT from Last 3 Months or Most Recently Relevant to Health Maintenance Results * PERC CORONARY INTERVENTION (09/18/2024 10:38 AM EDT) Anatomical Region Laterality Modality Other Narrative 09/18/2024 1:02 PM EDT Conclusion: 1. Previously placed proximal RCA stent is patent 2. 70% ostial RCA stenosis s/p successful PCI with placement of an overlapping 3.5 x 12 mm Turner Manjit drug-eluting stent. Ostium flared to 4.0. 3. Serial 70% diffuse lesions of the mid-distal RCA s/p successful PCI with placement of overlapping 3.0 x 26 mm and 2.75 x 30 mm Turner Manjit drug-eluting stents (proximal-distal). Recommendations: 1. Post-PCI [...] After confirming therapeutic activated clotting time, a Datamolino wire was advanced beyond the lesion and into the distal RCA. We advanced an Emerge RX 2.5 x 20 mm balloon into the mid-dstial RCA lesion and inflated to 12 rachael. The balloon was withdrawn slightly and serial inflations performed using the same technique. We then advanced a 2.75 mm x 30 mm Turner [place] drug eluting stent into the lesion and deployed at 12 rachael. We then placed and overlapping 3.0 x 26 mm Turner Manjit drug-eluting stent proximal to the aforementioend stent, inflated to 12 rachael. Post-dilation of the proximal-mid stent was then carried out using a 3.0 NC balloon. We then closely evaluated the ostium which appeared to have disease and appeared to be uncovered. We then advanced a 3.5 x 12 mm Turner Manjit drug- eluting stent in the proximal RCA [...] The patient was transferred back to the wood and wood products labourer holding area in good condition. Coronary Findings [...] CARDIAC CATH PROCEDURES Sheyla l Result * POCT ACT (09/18/2024 9:52 AM EDT) Only the most recent of6 resultswithin the time period is included. ACT (Low Range) 352 65 - 400 seconds 09/26/2024 9:35 AM EDT [facility] Classification Control Clerk ID Fister-Mary Saenz 09/26/2024 9:35 AM EDT [facility] ACT Device ID [id number] 09/26/2024 9:35 AM EDT [facility]ALTH[facility]ARE [facility] Comment 09/26/2024 9:35 AM EDT [facility] Comment: ACT performed by [...] UNSOLICITED RESULTS Final Result [facility] [address] LAB [address] [place] [address] * (ABNORMAL) POCT creatinine (09/18/2024 8:24 AM EDT) Only the most recent of2 resultswithin the time period is included. [facility] Creatinine, Point of Care 1.2(H) 0.6 - 1.1 mg/dL 09/18/2024 8:28 AM EDT [facility] POCT eGFR 48 mL/min/1. 73m*2 09/18/2024 8:28 AM EDT [facility] Classification Control Clerk ID Rosangela Gallegos 09/18/2024 8:28 AM EDT HEALTHCARE LAB Device ID [id number] 09/18/2024 8:28 AM EDT HEALTHCARE LAB Comment 09/18/2024 8:28 AM EDT [facility] Comment:Testing performed on i-STAT at the point of care. Reported eGFRcr in mL/min/1.73m2 is based the CKD-EPI 2020 equation that does not use a race coefficient. Blood Venous blood specimen / Unknown 09/18/2024 8:24 AM EDT 09/18/2024 8:28 AM EDT Miguel Lamb MD LAB POINT OF CARE TE ST DOCKED DEVICE UNSOLICITED RESULTS Final Result [facility] [address] LAB [address] [place] [address] * (ABNORMAL) CBC and differential (09/18/2024 8:20 AM EDT) [facility] WBC Count 8.79 3.70 - 10.30 10*3/uL LAB HEMATOLOGY METHOD 09/18/2024 8:38 AM EDT [facility] RBC Count 2.65(L) 3.90 - 5.20 10*6/uL LAB HEMATOLOGY METHOD 09/18/2024 8:38 AM EDT [facility] HGB 7.2(L) 11.2 - 15.7 g/dL LAB HEMATOLOGY METHOD 09/18/2024 8:38 AM EDT [facility] HCT 24.6(L) 34.0 - 45.0 % LAB HEMATOLOGY METHOD 09/18/2024 8:38 AM EDT [facility] Platelet Count 358 155 - 369 10*3/uL LAB HEMATOLOGY METHOD 09/18/2024 8:38 AM EDT [facility] MCV 93 79 - 98 fL LAB HEMATOLOGY METHOD 09/18/2024 8:38 AM EDT [facility] MCH 27.2 26.0 - 32.0 pg LAB HEMATOLOGY METHOD 09/18/2024 8:38 AM EDT [facility] MCHC 29.3(L) 30.7 - 35.5 g/dL LAB HEMATOLOGY METHOD 09/18/2024 8:38 AM EDT [facility] RDW 16.0(H) 11.5 - 14.5 % LAB HEMATOLOGY METHOD 09/18/2024 8:38 AM EDT [facility] MPV 10.4 8.8 - 12.5 fL LAB HEMATOLOGY METHOD 09/18/2024 8:38 AM EDT [facility] nRBC 0.0 <=0.0 per 100 WBCs LAB HEMATOLOGY METHOD 09/18/2024 8:38 AM EDT [facility] Differential Type Automated LAB HEMATOLOGY METHOD 09/18/2024 8:38 AM EDT [facility] Neutrophils % 90 % LAB HEMATOLOGY METHOD 09/18/2024 8:38 AM EDT [facility] Lymphocytes % 6 % LAB HEMATOLOGY METHOD 09/18/2024 8:38 AM EDT [facility] Monocytes % 2 % LAB HEMATOLOGY METHOD 09/18/2024 8:38 AM EDT [facility] Eosinophils % 1 % LAB HEMATOLOGY METHOD 09/18/2024 8:38 AM EDT [facility] Basophils % 0 % LAB HEMATOLOGY METHOD 09/18/2024 8:38 AM EDT [facility] Immature Granulocytes % 1 % LAB HEMATOLOGY METHOD 09/18/2024 8:38 AM EDT [facility] Neutrophils Absolute 7.96(H) 1.60 - 6.10 10*3/uL LAB HEMATOLOGY METHOD 09/18/2024 8:38 AM EDT [facility] Lymphocytes Absolute 0.56(L) 1.20 - 3.90 10*3/uL LAB HEMATOLOGY METHOD 09/18/2024 8:38 AM EDT [facility] Monocytes Absolute 0.13(L) 0.30 - 0.90 10*3/uL LAB HEMATOLOGY METHOD 09/18/2024 8:38 AM EDT [facility] Eosinophils Absolute 0.07 0.00 - 0.50 10*3/uL LAB HEMATOLOGY METHOD 09/18/2024 8:38 AM EDT [facility] Basophils Absolute 0.02 0.00 - 0.10 10*3/uL LAB HEMATOLOGY METHOD 09/18/2024 8:38 AM EDT [facility] Immature Granulocytes Absolute 0.05 0.00 - 0.06 10*3/uL LAB HEMATOLOGY METHOD 09/18/2024 8:38 AM EDT [facility] Blood Venous blood specimen / Unknown Venipuncture / Unknown 09/18/2024 8:20 AM EDT 09/18/2024 8:26 AM EDT Narrative [facility] - 09/18/2024 8:38 AM EDT Therapeutic decision making should be based on absolute values, rather than percentages. us Miguel Lamb MD LAB BLOOD ORDERABLES Final Resu lt [facility] [address] [place] [address] * (ABNORMAL) Basic metabolic panel (09/18/2024 8:20 AM EDT) Only the most recent of3 resultswithin the time period is included. Glucose, Plasma 157(H) 74 - 99 mg/dL 09/18/2024 8:58 AM EDT [facility] BUN, Plasma 17 8 - 23 mg/dL 09/18/2024 8:58 AM EDT [facility] Creatinine, Plasma 1.05 0.60 - 1.10 mg/dL 09/18/2024 8:58 AM EDT [facility] BUN/Creatinine Ratio 16 09/18/2024 8:58 AM EDT [facility] Sodium, Plasma 138 136 - 145 mmol/L 09/18/2024 8:58 AM EDT [facility] Potassium, Plasma 4.5 3.6 - 4.9 mmol/L 09/18/2024 8:58 AM EDT [facility] Chloride, Plasma 100 97 - 107 mmol/L 09/18/2024 8:58 AM EDT [facility] CO2, Plasma 23 22 - 29 mmol/L 09/18/2024 8:58 AM EDT [facility] Anion Gap 15 6 - 16 mmol/L 09/18/2024 8:58 AM EDT [facility] Total Calcium, Plasma 9.4 8.9 - 10.2 mg/dL 09/18/2024 8:58 AM EDT [facility] eGFRcr 56.9 mL/min/1.7 3m*2 09/18/2024 8:58 AM EDT [facility] Comment:Reported eGFRcr in m L/min/1.73m2 is based the CKD-EPI 2020 equation that does not use a race coefficient. Blood Venous blood specimen / Unknown Venipuncture / Unknown 09/18/2024 8:20 AM EDT 09/18/2024 8:27 AM EDT us Miguel Lamb MD LAB BLOOD ORDERABLES Final Resu lt Performing Organization Address City/[facility]/ZIP Co de Phone Number [facility] [address] [place] [address] * (ABNORMAL) N-Terminal Probnp, Plasma (08/31/2024 3:59 AM EDT) N-Terminal, PROBNP, Plasma 5,650(H) 0 - 899 pg/mL 08/31/2024 5:38 AM EDT [facility] Blood Venous blood specimen / Unknown Venipuncture / Unknown 08/31/2024 3:59 AM EDT 08/31/2024 4:36 AM EDT us Zuly Gaspar APRN LAB BLOOD ORDERABLES Final R esult Performing Organization Address City/[facility]/ZIP Co de Phone Number [facility] [address] [place] [address] * (ABNORMAL) CBC W/O Differential (08/31/2024 3:59 AM EDT) Only the most recent of2 resultswithin the time period is included. WBC Count 16.14(H) 3.70 - 10.30 10*3/uL LAB HEMATOLOGY METHOD 08/31/2024 4:45 AM EDT [facility] RBC Count 2.68(L) 3.90 - 5.20 10*6/uL LAB HEMATOLOGY METHOD 08/31/2024 4:45 AM EDT [facility] HGB 7.9(L) 11.2 - 15.7 g/dL LAB HEMATOLOGY METHOD 08/31/2024 4:45 AM EDT [facility] HCT 25.6(L) 34.0 - 45.0 % LAB HEMATOLOGY METHOD 08/31/2024 4:45 AM EDT [facility] Platelet Count 277 155 - 369 10*3/uL LAB HEMATOLOGY METHOD 08/31/2024 4:45 AM EDT [facility] MCV 96 79 - 98 fL LAB HEMATOLOGY METHOD 08/31/2024 4:45 AM EDT [facility] MCH 29.5 26.0 - 32.0 pg LAB HEMATOLOGY METHOD 08/31/2024 4:45 AM EDT [facility] MCHC 30.9 30.7 - 35.5 g/dL LAB HEMATOLOGY METHOD 08/31/2024 4:45 AM EDT [facility] RDW 15.0(H) 11.5 - 14.5 % LAB HEMATOLOGY METHOD 08/31/2024 4:45 AM EDT [facility] MPV 10.3 8.8 - 12.5 fL LAB HEMATOLOGY METHOD 08/31/2024 4:45 AM EDT [facility] nRBC 0.0 <=0.0 per 100 WBCs LAB HEMATOLOGY METHOD 08/31/2024 4:45 AM EDT [facility] Blood Venous blood specimen / Unknown Venipuncture / Unknown 08/31/2024 3:59 AM EDT 08/31/2024 4:29 AM EDT us Zuly Gaspar APRN LAB BLOOD ORDERABLES Final R esult [facility] [address] [place] [address] * Magnesium, Plasma (08/31/2024 3:59 AM EDT) Magnesium, Plasma 2.2 1.9 - 2.4 mg/dL 08/31/2024 5:38 AM EDT [facility] Blood Venous blood specimen / Unknown Venipuncture / Unknown 08/31/2024 3:59 AM EDT 08/31/2024 4:36 AM EDT us Zuly Gaspar APRN LAB BLOOD ORDERABLES Final R esult Performing Organization Address City/[facility] Co de Phone Number [facility] [address] [place] [address] * ECG Adult (08/30/2024 6:02 PM EDT) EKG DIAGNOSIS CLASS Abnormal MUSE ECG Ventricular Rate 99 BPM MUSE ECG Atrial Rate 99 BPM MUSE ECG VA Interval 142 ms MUSE ECG QRSD Interval 86 ms MUSE ECG QT Interval 368 ms MUSE ECG QTC Interval 472 ms MUSE ECG P [place] 66 degrees MUSE ECG R [place] 16 degrees MUSE ECG T Wave [place] 59 degrees MUSE ECG Diagnosis Normal sinus rhythm MUSE ECG Diagnosis Nonspecific ST and T wave abnormality MUSE ECG Diagnosis MUSE ECG Diagnosis MUSE ECG Diagnosis Confirmed by Dusty Petit ([id number]) on 08/31/2024 5:05:48 PM MUSE ECG 08/30/2024 6:02 PM EDT 08/31/2024 5:05 PM EDT us Miguel Lamb MD ECG ORDERABLES Final Result Performing Organization Address [facility] Co de Phone Number MUSE ECG * PERC CORONARY INTERVENTION (08/30/2024 5:38 PM EDT) Anatomical Region Laterality Modality Other Narrative 09/03/2024 2:51 PM EDT Conclusion: 1. 90% ostial left main stenosis s/p successful PCI with placement of a 4.5 x 15 mm Turner [place] drug-eluting stent (overlapping with previously placed stent distally and 1-2 mm of stent extending in the aorta) 2. 70% heavily calcified distal left main severe in-stent re-stenosis s/p balloon angioplasty with a 3.5 NC balloon 3. 90% ostial RCA stenosis s/p successful PCI with placement of a 3.0 x 12 mm and 3.0 x 18 mm Turner Manjit drug-eluting stent. Proximal-mid stent post-dilated to [...] After confirming therapeutic activated clotting time, a Datamolino wire was advanced beyond the lesion and into the distal LAD. Given ongoing ischemia with concern for potential hemodynamic instability we opted to direct stent. We then advanced a Turner Manjit 4.5 x 12 mm drug-eluting stent [...] 12 mm and 3.0 x 18 mm Turner Manjit drug eluting stents in the proximal [...] The patient was transferred back to the wood and wood products labourer holding area in good condition. Coronary Findings [...] Lamb MD CV CARDIAC CATH PROCEDURES Sheyla arsh Result * CT Angio Abdomen Pelvis (08/15/2024 9:20 [...] Volume: 1359 Aortic Root Measurements 3-Cusp view: MOSOTHO 16 degrees; TRAFFIC ENGINEERING DIRECTOR 7 degrees Annulus area: 4.48 cm Annulus [...] 1574 Volume: 1359 Aortic Root Measurements 3-Cusp view:[place] 16 degrees; TRAFFIC ENGINEERING DIRECTOR 7 degrees Annulus area: 4.48 cm Annulus [...] Volume: 1359 Aortic Root Measurements 3-Cusp view: [place] 16 degrees; TRAFFIC ENGINEERING DIRECTOR 7 degrees Annulus area: 4.48 cm Annulus [...] 1574 Volume: 1359 Aortic Root Measurements 3-Cusp view:[place] 16 degrees; TRAFFIC ENGINEERING DIRECTOR 7 degrees Annulus area: 4.48 cm Annulus [...] signing this report, I, the attending physician, marcia I have personally reviewed the images/data for the aboveexamination(s) and agree with the final edited report. Drafted by KATERIN Bliss on 08/15/2024 9:45 AM Final report signed by Rosales Selby MD on 08/15/2024 3:44 PM Miguel Lamb MD IMG CT PROCEDURES Final Result * (ABNORMAL) Hemoglobin A1c (07/07/2019 2:34 AM EDT) Hemoglobin A1c 6.1(H) 4.7 - 6.0 % [facility] Comment: Glycohemoglobin Reference Range, 0 years and up: 4.7 to 6.0% . HA1C Interpretive Data: Diagnosis of Diabetes: Diabetic > or = 6.5% Pre-diabetic 5.7 to 6.4% Non-diabetic < or = 5.6% . Glycemic Targets for Type I and Type II Diabetics: Non- Adults <7.0% Adults <6.0% Children and Adolescents <7.5% . Source: [place] [employer]. Standards of medical care in diabetes, 2017. Diabetes Care.2017:40 (suppl 1):S1-S135. . HbA1c assay performed by an ion-exchange chromatography method that is certified traceable to the DCCT. 07/07/2019 2:34 AM EDT 07/07/2019 2:46 AM EDT us Historical Provider LAB BLOOD ORDERABLES Sheyla caban Result SUNQUEST from Last 3 Months or Most Recently Relevant to Health Maintenance Insurance [facility] MEDICARE Advance Directives * Full Code (Latest Code Status on File) Date Activated Date Inactivated Comments 09/18/2024 10:56 AM 09/18/2024 5:24 PM Question Answer Comments I have reviewed the capacity from the link above and, if needed, have updated to appropriate status: Yes * Full Code Date Activated Date Inactivated Comments 08/30/2024 5:55 PM 08/31/2024 3:53 PM Question Answer Comments I have reviewed the capacity from the link above and, if needed, have updated to appropriate status: Yes Care Teams Masonry Installer Relationship Specialty Start Date End Date Mustapha James MD [address] [place] [address] PCP - General 09/05/20 Miguel Lamb MD [address] [place] [address] Referring Physician Interventional Cardiology 08/16/24
--- OUTSIDE RECORDS SUMMARY | 2024-10-10 13:21 | XMS_ITS | Encounter Summary ---
Author Organization [employer] Address [address] [place] [address] Care Team Providers Care Teacher'S Aide Name Role Phone Unavailable Primary Care Provider Unavailabl e Encounter Details Date Type Department Care Team (Late st Contact Info) Description 02/09/2019 Transcribed Document [facility] Family Medicine [address] [place] [address] ProviderRegina MD [address] [place], [place] [id number] Social History Tobacco Use Types Packs/Day Years Used Date Smoking Tobacco: Never Assessed Comments Unknown Sex and Gender Information Value Date Recorded Sex Assigned at Not on file Legal Sex Female 5:00 PM CDT Gender Identity Not on file Sexual Orientation Not on file documented as of this encounter Miscellaneous Notes * Cerner Conversion Note - Regina ProviderMD - 02/09/2019 3:36 PM CDT PAT Adult Entered On: 02/09/2019 15:51 EDT Performed On: 02/09/2019 15:36 EDT by MARY MCGRAW RN Pain Assessment Pain Assessment : Initial assessment Pain Location Comment : pain a 9 on scale of 0-10 in both legs ABRAHAM STOKES RN - 02/12/2019 11:04 EDT Height and Weight, Clinical Dosing Height Source : Measured Height Entry Format : [place] Height, Inches : 63 Inch(Converted to: 5 ft 3 Inch, 160.02 cm) Clinical Height : 160.02 cm Weight Source : Standing scale Weight Entry Format : Wishon Clinical Dosing Weight : 85.91 kg Weight, Pounds : 189 lb Body Surface Area (BSA) : 1.89 m2 Body Mass Index : 33.6 kg/m2 (HI) Simpson Body Weight : 52 kg ABRAHAM STOKES RN - 02/12/2019 11:04 EDT Health Histories Smoking Status : 4 or less cigarettes(less than 1/4 pack)/day in last 30 days Smokeless Tobacco Status : Never Desires Tobacco Cessation Medication : No Reason for No Tobacco Cessation Medication : Refuses FDA approved medications Implant/Device Type, Golf Technician and Model : neck fusion and lumbar fusion MARY MCGRAW RN - 02/09/2019 15:36 EDT Social History (As Of: 02/12/2019 11:07:14 EDT) Tobacco: Use in Last 12 Months: Cigarettes. [...] History Fever/Chills Last 48 Hours : No ABRAHAM STOKES RN - 02/12/2019 11:04 EDT Infectious Disease History : Chicken pox/Shingles, Influenza, Measles, Mumps Travel To Regions with Travel Advisories : No Travel Outside [place] Within Last 30 Days : No Contact With Traveler to Advisory Region : No Tuberculosis Symptoms : None MARY MCGRAW RN - 02/09/2019 15:36 EDT Anesthesia/Transfusion History Blood Transfusion Acceptable to Patient : Yes ABRAHAM STOKES RN - 02/12/2019 11:04 EDT Family History of Anesthesia Reaction : Unknown Transfusion History : Prior anesthesia without reaction Family History of Anesthesia Reaction : None MARY MCGRAW RN - 02/09/2019 15:36 EDT Functional Assessment Functional ADL Evaluation Index EBN Bathing : Independent (2) Dressing : Independent (2) Toileting : Independent (2) Transferring Bed or Chair : Independent (2) Continence : Independent (2) Feeding : Independent (2) ABRAHAM STOKES RN - 02/12/2019 11:04 EDT ADL Index Score : 12 ABRAHAM STOKES RN - 02/12/2019 11:04 EDT Advance Directive Copy Advance Directive Verified/on Chart : No ABRAHAM STOKES RN - 02/12/2019 11:04 EDT Patient has Advance Directive *Q : Yes, Advance Directive not with the patient Advance Directive Type : Living will MARY MCGRAW RN - 02/09/2019 15:36 EDT Psychosocial History Do You Have a History of the Following? : Anxiety, Depression Currently in Unsafe Situation : No Tried to Harm Yourself in the Past? : No Thoughts of Harming/Killing Yourself : No MARY MCGRAW RN - 02/09/2019 15:36 EDT Education Topics, Periop Preadmission Perioperative Education Grid Arrival Time/Place : Verbalizes understanding NPO Status/Directions : Verbalizes understanding Responsible Adult : Verbalizes understanding Take/Hold Medications Pre-Procedure : Verbalizes understanding MARY MCGRAW RN - 02/09/2019 15:36 EDT General Info Preferred Name : Jodi Starr Family/Rep/Phys Notified of Admit : No Emergency Contact #1 : Christine Powell Emergency Contact #1 Emergency Contact #1 Relationship : neighbor Emergency Contact #2 : - Emergency Contact #2 Phone Number : - Emergency Contact #2 Relationship : - Chief Complaint : leg pain and cramping Information Obtained From : Patient Primary Language : Venezuelan Communication Barrier : None MARY MCGRAW RN - 02/09/2019 15:36 EDT Kwesi Scale Kwesi Sensory Perception : No impairment Kwesi Moisture : Rarely moist Kwesi Activity : Walks occasionally Kwesi Mobility : Slightly limited Kwesi Nutrition : Excellent Kweis Friction and Shear : Potential problem Kwesi Score : 20 MARY MCGRAW RN - 02/09/2019 15:36 EDT Sleep Apnea Risk Assmt BMI Greater Than 35 kg/m2 : Yes Neck Circumference Greater Than 40 cm : Yes STOP-BANG Sleep Apnea Risk Level Score : 5 ABRAHAM STOKES RN - 02/12/2019 11:04 EDT Hx of Obstructive Sleep Apnea Diagnosis : No Snore Loudly : No Tired, Fatigued, or Sleepy During Day : Yes Observed Stopping Breathing During Sleep : No Have/Are Being Treated for Hypertension : Yes Age over 50 Years Old : Yes Gender Male : No MARY MCGRAW RN - 02/09/2019 15:36 EDT documented in this encounter Plan of Treatment Not on file documented as of this encounter Visit Diagnoses Not on filedocumented in this encounter
[2024-10-10] MEDS: ferumoxytoL 510 MG in 0.9 % SODIUM CHLORIDE 50 ML 268 MG IV (13:40)
[2024-10-10 13:50] VITALS: BP 99/61; PULSE 90; RESP 19; O2SAT 95
[2024-10-10] MEDS: SODIUM CHLORIDE 0.9% 50ML BAG 50 ML IV (13:50)
[2024-10-10 14:15] VITALS: BP 102/65; PULSE 93; RESP 19; O2SAT 95
== END 2024-10-10 14:15 | disposition home or self-care (01) ==
LOC: INF 13:16
PROVIDERS: PCP Family Medicine; Visit Provider Internal Medicine Medical Oncology
DX: D50.9 Iron deficiency anemia, unspecified (principal)
CPT/HCPCS: 96374; Q0138

== ENCOUNTER 2024-10-17 13:22 | Outpatient (CLI) | payer MEDICARE, SELFPAY ==
--- OUTSIDE RECORDS SUMMARY | 2024-08-30 13:09 | XMS_ITS | Encounter Summary ---
Author Organization [facility] Address [address] [id number] Care Team Providers Care Dial Marker Name Role Phone Mustpaha James MD Primary Care Provider [phone] Miguel Lamb MD Unavailable [phone] Reason for Visit * Auth/Cert (Routine) Specialty Diagnoses / Procedures Referred By Contac t Referred To Contact Diagnoses Nonrheumatic aortic valve stenosis Nonrheumatic aortic valve stenosis [I35.0] Procedures CO PRQ TRLUML CORONARY STENT W/ANGIO ONE ART/BRNCH Percutaneous coronary intervention Miguel Labm MD [address] [place] [address] Phone: tel: fax: Cardiac Asset Recovery Specialist [address] [place] [address] Phone: tel: Referral ID Status Reason Start Date Expiration Date Visits Re quested Visits Authorized [id number] 1 1 Encounter Details Date Type Department Care Team (Latest Contact Info) Description 08/30/2024 1:09 PM EDT - 08/31/2024 1:48 PM EDT Hospital Encounter PAV A Inpatient [address] [place] [address] Miguel Lamb MD [address] [place] [address] S/P coronary artery stent placement (Primary Dx); Nonrheumatic aortic valve stenosis Discharge Disposition: Home [...] Sign Reading Time Taken Comments Blood Pressure 113/46 08/31/2024 11:10 AM EDT Pulse 93 08/31/2024 11:10 AM EDT Temperature 36.7 C (98.1 F) 08/31/2024 11:10 AM EDT Respiratory Rate 19 08/31/2024 11:10 AM EDT Oxygen Saturation 97% 08/31/2024 11:10 AM EDT Inhaled Oxygen Concentration - - Weight 90.9 kg (200 lb 6.4 oz) 08/31/2024 5:00 A M EDT Height 160 cm (5' 3 ) 08/30/2024 1:35 PM EDT Body Mass Index 35.5 08/30/2024 1:35 PM EDT documented in this encounter Functional Status * Calculated C-SSRS Risk Score (Lifetime/Recent) Answer Date of Assessment Author No Risk Indicated 08/30/2024 9:00 PM EDT Artur Lara RN * Question Answer Date of Assessment Author 1. Wish to be (Past 1 Month) No 025 9:00 PM EDT Artur Lara RN 2. Non-Specific Active Suici sil Thoughts (Past 1 Month) No 08/30/2024 9:00 PM EDT Artur Lara RN 6. Suicidal Behavior (Lifetime) No 9:00 PM EDT Artur Lara RN documented as of this encounter Discharge Instructions * Discharge Instructions* Zuly Gaspar APRN - 08/31/2024 6:47 AM EDT Discharge Instructions/Restrictions: Activity & Incision Instructions: For 1 weeks, do not lift anything heavier than 10 pounds (about the weight of a gallon of milk). Do not drive for 24 hours after procedure. You can shower within the next 24 hours. Do not submerge your incision in water. No tub baths, hot tubs or swimming pools for 7-10 days. You do NOT need to place a new dressing over your incision site, It will heal from the inside out. Every day, check the area around your incision site for signs of infection or problems. Call the [facility] at [phone] if your incision is red, warm or oozing green or yellow drainage. Or if you develop a fever > 100.4 Medication Instruction: DO NOT MISS ANY DOSES OF YOUR BLOOD THINNERS - ASPIRIN AND PLAVIX. These will protect the new stents that were placed. You will be on them for at least 1 year but likely life given your past history. You will need to premedicate again before your surgery. A refill of this medications has been sent to your home pharmacy. Take Medication exactly as instructed. Do not take any medications that have not been ordered for you. This means do not take other people's medication, illegal drugs or substances. Follow up: You will come back for the next staged procedure to stent your right coronary artery. This will be done on Tuesday09/18/2024. Someone will call you the week before with the exact time you should arrive. If this date and time do not work, call the Cardiac Asset Recovery Specialist at They will deliver a Rolator walker to your house. documented in this encounter Medications at Time of Discharge albuterol 108 (90 Base) MCG/ACT inhaler Inhale 2 puffs 1 time as needed for wheezing or shortness of breath. 08/29/2024 aspirin 81 MG EC tablet Take 1 tablet by mouth daily. baclofen (Lioresal) 10 MG tablet Take by mouth 3 times a day. cetirizine (ZyrTEC) 10 MG tablet Take 1 tablet by mouth daily. clopidogrel (Plavix) 75 MG tablet Take 1 tablet by mouth daily. 30 tablet 11 08/31/2024 6 diazePAM (Valium) 5 MG tablet Take 1 tablet by mouth 2 times a day. 07/24/2019 diphenhydrAMINE (Benadryl) 50 MG tablet Take 1 tablet 1 hour prior to surgery 1 tablet 1 08/31/2024 Evolocumab (Repatha) 140 MG/ML solution prefilled syringe Inject under the skin. famotidine (Pepcid) 20 MG tablet Take 1 tablet by mouth twice a day. fluticasone (Flonase) 50 MCG/ACT nasal spray Administer 1 spray into each nostril daily. 07/24/2019 Fluticasone-Umec lidin-Vilant (Trelegy Ellipta) 100-62.5-25 MCG/ACT aerosol powder Inhale. furosemide (Lasix) 20 MG tablet Take 1 tablet by mouth daily. 07/24/2019 HYDROcodone-acet aminophen ([place]) 7.5-325 MG tablet Take 1 tablet by [...] Take 1 tablet by mouth daily. 07/24/2019 Nexletol 180 MG tablet Take 1 tablet by mouth daily. 08/29/2024 nitroglycerin (Nitrostat) 0.[address] 1 tablet under the tongue every 5 minutes as needed for chest pain. 30 tablet 11 09/18/2024 6 VITAMIN D, CHOLECALCIFEROL, PO Take by mouth. nitroglycerin (Nitrostat) 0.[address] 1 tablet under the tongue every 5 minutes as needed for chest pain. 25 tablet 1 08/27/2024 5 predniSONE (Deltasone) 50 MG tablet Take 13 hours, 7 hours and 1 hour prior to surgery 3 tablet 1 08/31/2024 documented as of this encounter Miscellaneous Notes * Addendum Note - Miguel Lamb MD - 08/31/2024 1:48 PM EDTEncounter addended by: Miguel Lamb MD on: 09/10/2024 9:24 AM Actions taken: Results reviewed in IB * Progress Notes - Coco Gamez, RN - 08/31/2024 1:37 PM EDT Case Management Adult Progress Note Jodi Byrne 69 y.o. female CSN: [id number] Admission: 08/30/2024 1:09 PM Primary Problem: Nonrheumatic aortic valve stenosis Anticipated Discharge Date: today Additional Comments: Rollator referral sent to [facility]. Will be delivered to patients home. Coco Gamez RN * Lianet Durand RN - 08/31/2024 12:22 PM EDT Images from the original note were not included. [id number] Clopidogrel Brand Name(s): Plavix??; also available generically IMPORTANT WARNING: Clopidogrel must be changed to an active form in your body so that it can treat your condition. Some people do not change clopidogrel to its active form in the body as well as other people. Because the medication does not work as well in these people, they may be at a higher risk of having a heart attack or stroke. There are tests available to identify people who have trouble changing clopidogrelto an active form. Talk to your doctor about whether you should be tested. If you are found to havedifficulty converting clopidogrel to its active form, your doctor may change your dose of clopidogrel or tell you not to take clopidogrel. Your doctor or pharmacist will give you the inventory control coordinator's patient information sheet (Medication Guide) when you begin treatment with clopidogrel and each time you refill your prescription. Read the information carefully and ask your doctor or pharmacist if you have any questions. You can also visit the Food and Drug Administration (FDA) website (https://www.fda.gov/Drugs/DrugSafety/atd895538.htm) or the inventory control coordinator's website to obtain the Medication Guide. Talk to your doctor about the risks of taking clopidogrel. WHY is this medicine prescribed? Clopidogrel is used alone or with aspirin to prevent serious or life-threatening problems with the heart and blood vessels in people who have had a stroke, heart attack, or severe chest pain. This includes people who have percutaneous coronary intervention (PCI; angioplasty; a type of heart surgery) that may involve inserting coronary stents (metal tubes surgically placed in clogged blood vesselsto improve blood flow) or who have coronary artery bypass grafting (CABG; a type of heart surgery).Clopidogrel is also used to prevent serious or life-threatening problems with the heart and blood vessels in people who have peripheral arterial disease (poor circulation in the blood vessels that supply blood to the legs). Clopidogrel is in a class of medications called antiplatelet medications. It works by preventing platelets (a type of blood cell) from collecting and forming clots that may cause a heart attack or stroke. HOW should this medicine be used? Clopidogrel comes as a tablet to take by mouth. It is usually taken once a day with or without food. Take clopidogrel at around the same time every day. Follow the directions on your prescription label carefully, and ask your doctor or pharmacist to explain any part you do not understand. Take clopidogrel exactly as directed. Do not take more or less of it or take it more often than prescribed byyour doctor. Clopidogrel will help prevent serious problems with your heart and blood vessels only as long as you take the medication. Continue to take clopidogrel even if you feel well. Do not stop taking clopidogrel without talking to your doctor. If you stop taking clopidogrel, there is a higher risk that you may have a heart attack or stroke. If you have a stent, there is also a higher risk that you coulddevelop a blood clot in the stent if you stop taking clopidogrel too soon. Are there OTHER USES for this medicine? Clopidogrel is also sometimes used to prevent blood clots in people with atrial fibrillation (a condition in which the heart beats irregularly). Talk to your doctor about the possible risks of using this medication for your condition. This medication may be prescribed for other uses; ask your doctor or pharmacist for more information. What SPECIAL PRECAUTIONS should I follow? Before taking clopidogrel, ?? tell your doctor and pharmacist if you are allergic to clopidogrel, prasugrel (Effient), ticlopidine, any other medications, or any ingredient in clopidogrel tablets. Ask your pharmacist or check the Medication Guide for a list of the ingredients. ?? tell your doctor and pharmacist what other prescription and nonprescription medications, vitamins, nutritional supplements, and herbal products you are taking or plan to take while taking clopidogrel. Your doctor may need to change the doses of your medications or monitor you carefully for side effects. . ?? The following nonprescription products may interact with clopidogrel: omeprazole (Prilosec, Prilosec OTC, Zegerid); esomeprazole (Nexium); aspirin and other nonsteroidal anti-inflammatory drugs (NSAIDs) such as ibuprofen (Advil, Motrin) and naproxen (Aleve, Naprosyn). Be sure to let your doctor and pharmacist know that you are taking these medications before you start taking clopidogrel. Do not start any of these medications while taking clopidogrel without discussing with your healthcare provider. ?? tell your doctor if you have bleeding ulcers (sores in the lining of the stomach or small intestine that are bleeding), bleeding in the brain, or any other condition that causes severe bleeding. Your doctor may tell you that you should not take clopidogrel. ?? tell your doctor if you have recently been injured and if you have or have ever had liver or kidney disease or any condition that may cause bleeding, including stomach problems such as ulcers. ?? tell your doctor if you are , plan to become , or are breast- feeding. If you become while taking clopidogrel, call your doctor. ?? if you are having surgery, including dental surgery, tell the doctor or dentist that you are taking clopidogrel. Your doctor may tell you to stop taking clopidogrel at least 5 days prior to your surgery to avoid excessive bleeding during surgery. Your doctor will tell you when to start taking clopidogrel again after your surgery. ?? you should know that you may bleed more easily or for a longer time than usual while you are taking clopidogrel. Be careful not to cut or hurt yourself while you are taking clopidogrel. What SPECIAL DIETARY instructions should I follow? Unless your doctor tells you otherwise, continue your normal diet. What should I do IF I FORGET to take a dose? Take the missed dose as soon as you remember it. However, if it is almost time for the next dose, skip the missed dose and continue your regular dosing schedule. Do not take a double dose to make up for a missed one. What SIDE EFFECTS can this medicine cause? Some side effects can be serious. If you experience any of the following symptoms, call your doctorimmediately: ?? hives ?? rash ?? itching ?? difficulty breathing or swallowing ?? swelling of the face, throat, tongue, lips, eyes, hands, feet, ankles, or lower legs ?? hoarseness ?? black and tarry stools ?? red blood in stools ?? bloody vomit ?? vomit that looks like coffee grounds ?? unusual bleeding or bruising ?? pink or brown urine ?? slow or difficult speech ?? weakness or numbness of an arm or a leg ?? changes in vision ?? fever ?? shortness of breath ?? fast heartbeat ?? pale skin ?? purple patches or bleeding under the skin ?? confusion ?? yellowing of the skin or eyes ?? seizures Clopidogrel may cause other side effects. Call your doctor if you have any unusual problems while taking this medication. If you experience a serious side effect, you or your doctor may send a report to the Food and Drug Administration's (FDA) MedWatch Adverse Event Reporting program online (https://www.fda.gov/Safety/MedWatch) or by phone ( ). What should I know about STORAGE and DISPOSAL of this medication? Keep this medication in the container it came in, tightly closed, and out of reach of children. Store it at room temperature and away from excess heat and moisture (not in the bathroom). Unneeded medications should be disposed of in special ways to ensure that pets, children, and otherpeople cannot consume them. However, you should not flush this medication down the toilet. Instead,the best way to dispose of your medication is through a medicine take-back program. Talk to your pharmacist or contact your local garbage/recycling department to learn about take-back programs in your community. See the FDA's Safe Disposal of Medicines website (https://goo.gl/c4Rm4p) for more information if you do not have access to a take-back program. It is important to keep all medication out of sight and reach of children as many containers (such as weekly pill minders and those for eye drops, creams, patches, and inhalers) are not child-resistant and young children can open them easily. To protect young children from poisoning, always lock safety caps and immediately place the medication in a safe location - one that is up and away and out of their sight and reach. https://www.[employer].org What should I do in case of OVERDOSE? In case of overdose, call the poison control helpline at . Information is also available online at https://www.poisonhelp.org/help. If the victim has collapsed, had a seizure, has trouble breathing, or can't be awakened, immediately call emergency services at 466. Symptoms of overdose may include the following: ?? unusual bruising or bleeding What OTHER INFORMATION should I know? Keep all appointments with your doctor. Do not let anyone else take your medication. Ask your pharmacist any questions you have about refilling your prescription. It is important for you to keep a written list of all of the prescription and nonprescription (mfgm-qcv-nelpdrz) medicines you are taking, as well as any products such as vitamins, minerals, or otherdietary supplements. You should bring this list with you each time you visit a doctor or if you areadmitted to a hospital. It is also important information to carry with you in case of emergencies. This report on medications is for your information only, and is not considered individual patient advice. Because of the changing nature of drug information, please consult your physician or pharmacist about specific clinical use. The [employer] represents that the information provided hereunder was formulated with a reasonable standard of care, and in conformity with professional standards in the field. The [employer] makes no representations or warranties, express or implied, including, but not limited to, any implied warranty of merchantability and/or fitness for a particular purpose, with respect to such information and specifically disclaims all such warranties. Users are advised that decisions regarding drug therapy are complex medical decisions requiring the independent, informed decision of an appropriate health home care chaplain, and the information is provided for informational purposes only. The entire monograph for a drug should be reviewed for a thorough understanding of the drug's actions, uses and side effects. The [employer] does not endorse or recommend the use of any drug.The information is not a substitute for medical care. AHFS?? Patient Medication Information?. ?? Copyright, 2023. The [employer]??, [address], [address], [place], [place]. All Rights Reserved. Duplication for commercial use must be authorized by [facility]. Selected Revisions: October 13, 2023. AHFS?? Patient Medication Information?. ?? Copyright, 2024 * Discharge Instr - Diet - Lianet Chawla RN - 08/31/2024 12:20 PM EDT Resume regular at home diet * Discharge Instr - Activity - Lianet Chawla RN - 08/31/2024 12:19 PM EDT For 1 weeks, do not lift anything heavier than 10 pounds (about the weight of a gallon of milk). Do not drive for 24 hours after procedure. * Discharge Instr - AVS First Page - Lianet Chawla RN - 08/31/2024 12:19 PM EDT Call the [facility] at [phone] if your incision is red, warm or oozing green or yellow drainage. Or if you develop a fever > 100.4 * Progress Notes - Flores James - 08/31/2024 12:08 PM EDT Inpatient Cardiac Rehab Assessment Patient Name: Jodi Byrne Today's Date: 08/31/2024 Subjective: Ms. Byrne qualifies for outpatient cardiac rehab due to recent PCI. I/R/P: I met with Jodi Byrne to discuss outpatient cardiac rehab and the benefits of attending. Ms. Byrne will return in a month for staged PCI. Will hold on referral until after that time. Patient is agreeable to this plan. No referral entered this admission. * Lianet Durand RN - 08/31/2024 11:50 AM EDT Images from the original note were not included. 297 Prednisone ([place]) Prednisone helps keep your body from rejecting its transplanted organ. ?? Take Prednisone at the same time every day. ?? Take Prednisone exactly as your doctor ordered. ?? Always take Prednisone on a full stomach. ?? It is very important that you do not miss any doses of Prednisone. Call your doctor if you miss a dose. ?? There are many medicines that can interfere with your Prednisone. Always check with your doctor before taking any other medicine, including dums-zlr-bpyogch medicines (for example aspirin), vitamins, herbals, or vaccines. ?? Do not keep Prednisone in your bathroom. Keep your Prednisone at room temperature, away from heat, moisture, and direct light. ?? Keep all medicine out of the reach of children. 5 mg Single strength Your tablets may not look exactly like this. Possible Side Effects ?? Blurred vision ?? Fullness or roundness of face ?? Swelling of feet or legs ?? Weight gain ?? Muscle weakness ?? Increased appetite ?? Indigestion ?? Severe stomach pain ?? Bloody vomit or blood in stools ?? Trouble sleeping ?? Confusion, depression, or mood changes ?? Seeing or hearing unusual things ?? Increased blood sugar 02/02 * Lianet Durand RN - 08/31/2024 11:50 AM EDT Images from the original note were not included. [id number] Diphenhydramine Brand Name(s): Aler-Dryl??, Allergia-C?, Allermax?, Altaryl?, Banophen?, Salazar Tann?, Benadryl??, Bromanate AF?, Compoz Nighttime Sleep Aid?, Dicopanol?, Diphedryl?, Diphen?, Diphenadryl?, Diphenhist??, Diphenylin?, Dytan?, Hydramine?, Nytol??, Pardryl?, Pe diaCare Children's Allergy??, Siladryl??, Silphen??, Sominex??, Unisom??, Advil PM?? (as a combination product containing Diphenhydramine, Ibuprofen), Alahist LQ?? (as a combination product containing Diphenhydramine, Phenylephrine), Aldex CT?? (as a combination product containing Diphenhydramine, Phenylephrine), Aleve PM?? (as a combination product containing Diphenhydramine, Naproxen), Anacin P.M. Aspirin Free?? (as a combination product containing Acetaminophen, Diphenhydramine)??, Emelia Aspirin PM?? (as a combination product containing Aspirin, Diphenhydramine), Benadryl-D Allergy Plus Sinus?? (as a combination product containing Diphenhydramine, Phenylephrine), Children's Dimetapp Night time Cold and Congestion?? (as a combination product containing Diphenhydramine, Phenylephrine), Doans PM?? (as a combination product containing Diphenhydramine, Magnesium Salicylate)??, Endal HD?? (as a combination product containing Diphenhydramine, Phenylephrine)??, Excedrin PM?? (as a combination product containing Acetaminophen, Diphenhydramine), Goody's PM?? (as a combination product containing Acetaminophen, Diphenhydramine), Legatrin PM?? (as a combination product containing Acetaminophen, Diphenhydramine), Masophen PM?? (as a combination product containing Acetaminophen, Diphenhydramine)??, Midol PM?? (as a combination product containing Acetaminophen, Diphenhydramine), Motrin PM??(as a combination product containing Diphenhydramine, Ibuprofen), PediaCare Children's Allergy and Cold?? (as a combination product containing Diphenhydramine, Phenylephrine), Robitussin Night Time Cough and Cold?? (as a combination product containing Diphenhydramine, Phenylephrine), Sudafed PE Day/ Night Cold?? (as a combination product containing Acetaminophen, Dextromethorphan, Diphenhydramine,Guaifenesin, Phenylephrine), Sudafed PE Day/Night Congestion?? (as a combination product containingDiphenhydramine, Phenylephrine), Sudafed PE Severe Cold?? (as a combination product containing Acetaminophen, Diphenhydramine, Phenylephrine), Tekral?? (as a combination product containing Diphenhydramine, Pseudoephedrine)??, Theraflu Nighttime Severe Cold and Cough?? (as a combination product containing Acetaminophen, Diphenhydramine, Phenylephrine), Triaminic Night Time Cold and Cough?? (as a co mbination product containing Diphenhydramine, Phenylephrine), Tylenol Allergy Multi-Symptom Nighttime?? (as a combination product containing Acetaminophen, Diphenhydramine, Phenylephrine), Tylenol Severe Allergy?? (as a combination product containing Acetaminophen, Diphenhydramine), Unisom with Pain Relief?? (as a combination product containing Acetaminophen, Diphenhydramine); also available generically WHY is this medicine prescribed? Diphenhydramine is used to relieve red, irritated, itchy, watery eyes; sneezing; and runny nose caused by hay fever, allergies, or the common cold. Diphenhydramine is also used to relieve cough caused by minor throat or airway irritation. Diphenhydramine is also used to prevent and treat motion sickness, and to treat insomnia (difficulty falling asleep or staying asleep). Diphenhydramine is also used to control abnormal movements in people who have early stage parkinsonian syndrome (a disorder of the nervous system that causes difficulties with movement, muscle control, and balance) or who are experiencing movement problems as a side effect of a medication. Diphenhydramine will relieve the symptoms of these conditions but will not treat the cause of the symptoms or speed recovery. Diphenhydramine should not be used to cause sleepiness in children. Diphenhydramine is in a class of medications called antihistamines. It works by blocking the action of histamine, a substance in the body that causes allergic symptoms. HOW should this medicine be used? Diphenhydramine comes as a tablet, a rapidly disintegrating (dissolving) tablet, a capsule, a liquid-filled capsule, a dissolving strip, powder, and a liquid to take by mouth. When diphenhydramine isused for the relief of allergies, cold, and cough symptoms, it is usually taken every 4 to 6 hours.When diphenhydramine is used to treat motion sickness, it is usually taken 30 minutes before departu re and, if needed, before meals and at bedtime. When diphenhydramine is used to treat insomnia it is taken at bedtime (30 minutes before planned sleep). When diphenhydramine is used to treat abnormalmovements, it is usually taken three times a day at first and then taken 4 times a day. Follow the directions on the package or on your prescription label carefully, and ask your doctor or pharmacistto explain any part you do not understand. Take diphenhydramine exactly as directed. Do not take more or less of it or take it more often than prescribed by your doctor or directed on the label. Diphenhydramine comes alone and in combination with pain relievers, fever reducers, and decongestants. Ask your doctor or pharmacist for advice on which product is best for your symptoms. Check nonprescription cough and cold product labels carefully before using two or more products at the same time. These products may contain the same active ingredient(s) and taking them together could cause youto receive an overdose. This is especially important if you will be giving cough and cold medications to a child. Nonprescription cough and cold combination products, including products that contain diphenhydramine, can cause serious side effects or in young children. Do not give these products to childrenyounger than 4 years of age. If you give these products to children 4 to 11 years of age, use caution and follow the package directions carefully. If you are giving diphenhydramine or a combination product that contains diphenhydramine to a child, read the package label carefully to be sure that it is the right product for a child of that age. Do not give diphenhydramine products that are made for adults to children. Before you give a diphenhydramine product to a child, check the package label to find out how much medication the child should receive. Give the dose that matches the child's age on the chart. Ask the child's doctor if you don't know how much medication to give the child. If you are taking the liquid, do not use a household spoon to measure your dose. Use the measuring spoon or cup that came with the medication or use a spoon made especially for measuring medication. If you are taking the dissolving strips, place the strips on your tongue one at a time and swallow after they melt. If you are taking the rapidly dissolving tablets, place a tablet on your tongue and close your mouth. The tablet will quickly dissolve and can be swallowed with or without water. If you are taking the capsules, swallow them whole. Do not try to break the capsules. Are there OTHER USES for this medicine? This medication is sometimes prescribed for other uses; ask your doctor or pharmacist for more information. What SPECIAL PRECAUTIONS should I follow? Before taking diphenhydramine, ?? tell your doctor and pharmacist if you are allergic to diphenhydramine, any other medications, or any of the ingredients in diphenhydramine preparations. Ask your doctor or pharmacist or check thepackage label for a list of the ingredients. ?? tell your doctor and pharmacist what prescription and nonprescription medications, vitamins, nutritional supplements, and herbal products you are taking or plan to take while taking diphenhydramine.Your doctor may need to change the doses of your medications or monitor you carefully for side effects. ?? tell your doctor if you have or have ever had asthma, emphysema, chronic bronchitis, or other types of lung disease; glaucoma (a condition in which increased pressure in the eye can lead to gradual loss of vision); ulcers; difficulty urinating (due to an enlarged prostate gland); heart disease; high blood pressure; seizures; or an overactive thyroid gland.If you will be using the liquid, tell your doctor if you have been told to follow a low-sodium diet. ?? tell your doctor if you are , plan to become , or are breast- feeding. If you become while taking diphenhydramine, call your doctor. ?? you should know that generally diphenhydramine should not be used in older adults, except to manage serious allergic reactions, because it is not as safe or effective as other medication(s) to treat your condition. If you are 65 years of age or older, talk to your doctor about the risks and benefits of taking this medication. ?? if you are having surgery, including dental surgery, tell the doctor or dentist that you are taking diphenhydramine. ?? you should know that this medication may make you drowsy. Do not drive a car or operate machinery until you know how this medication affects you. ?? remember that alcohol can add to the drowsiness caused by this medication. Avoid alcoholic beverages while you are taking this medication. ?? if you have phenylketonuria (PKU, an inherited condition in which a special diet must be followed to prevent damage to your brain that can cause severe intellectual disability), you should know that some brands of chewable tablets and rapidly disintegrating tablets that contain diphenhydramine may be sweetened with aspartame, a source of phenylalanine. What SPECIAL DIETARY instructions should I follow? Unless your doctor tells you otherwise, continue your normal diet. What should I do IF I FORGET to take a dose? Diphenhydramine is usually taken as needed. If your doctor has told you to take diphenhydramine regularly, take the missed dose as soon as you remember it. However, if it is almost time for the next dose, skip the missed dose and continue your regular dosing schedule. Do not take a double dose to make up for a missed one. What SIDE EFFECTS can this medicine cause? Some side effects may be serious. If you experience any of the following symptoms, call your doctorimmediately: ?? vision problems ?? difficulty urinating or painful urination Diphenhydramine may cause other side effects. Call your doctor if you experience any unusual problems while you are taking this medication. If you experience a serious side effect, you or your doctor may send a report to the Food and Drug Administration's (FDA) MedWatch Adverse Event Reporting program online (https://www.fda.gov/Safety/MedWatch) or by phone ( ). What should I know about STORAGE and DISPOSAL of this medication? Keep this medication in the container it came in, tightly closed, and out of reach of children. Store it at room temperature and away from excess heat and moisture (not in the bathroom). It is important to keep all medication out of sight and reach of children as many containers (such as weekly pill minders and those for eye drops, creams, patches, and inhalers) are not child-resistant and young children can open them easily. To protect young children from poisoning, always lock safety caps and immediately place the medication in a safe location - one that is up and away and out of their sight and reach. https://www.upandaway.org Unneeded medications should be disposed of in special ways to ensure that pets, children, and otherpeople cannot consume them. However, you should not flush this medication down the toilet. Instead,the best way to dispose of your medication is through a medicine take-back program. Talk to your pharmacist or contact your local garbage/recycling department to learn about take-back programs in your community. See the FDA's Safe Disposal of Medicines website (https://goo.gl/c4Rm4p) for more information if you do not have access to a take-back program. What should I do in case of OVERDOSE? In case of overdose, call the poison control helpline at . Information is also available online at https://www.poisonhelp.org/help. If the victim has collapsed, had a seizure, has trouble breathing, or can't be awakened, immediately call emergency services at 313. What OTHER INFORMATION should I know? Ask your pharmacist any questions you have about diphenhydramine. It is important for you to keep a written list of all of the prescription and nonprescription (vvhb-mpo-ntackyd) medicines you are taking, as well as any products such as vitamins, minerals, or otherdietary supplements. You should bring this list with you each time you visit a doctor or if you areadmitted to a hospital. It is also important information to carry with you in case of emergencies. This report on medications is for your information only, and is not considered individual patient advice. Because of the changing nature of drug information, please consult your physician or pharmacist about specific clinical use. The [employer] represents that the information provided hereunder was formulated with a reasonable standard of care, and in conformity with professional standards in the field. The [employer] makes no representations or warranties, express or implied, including, but not limited to, any implied warranty of merchantability and/or fitness for a particular purpose, with respect to such information and specifically disclaims all such warranties. Users are advised that decisions regarding drug therapy are complex medical decisions requiring the independent, informed decision of an appropriate health home care chaplain, and the information is provided for informational purposes only. The entire monograph for a drug should be reviewed for a thorough understanding of the drug's actions, uses and side effects. The [employer] does not endorse or recommend the use of any drug.The information is not a substitute for medical care. AHFS?? Patient Medication Information?. ?? Copyright, 2023. The [employer]??, [address], [address], [place], [place]. All Rights Reserved. Duplication for commercial use must be authorized by [facility]. Selected Revisions: May 09, 2021. AHFS?? Patient Medication Information?. ?? Copyright, 2024 * [facility] - Lianet Chawla RN - 08/31/2024 11:49 AM EDT Images from the original note were not included. [id number] Discharge Instructions for Cardiac Catheterization Cardiac catheterization is an invasive procedure to look for certain heart problems. These problemsmay affect the heart's chambers, valves, and blood vessels. A thin, flexible tube (catheter) is putin a blood vessel in your groin or arm. The catheter is moved to the heart. The health care provider can look at the blood flow, blood pressure, and oxygen. They can inject contrast fluid into your blood. This flows to your heart. The provider can then take X-rays pictures of your heart. Coronary angiography is often done as part of a cardiac cath. This looks for blocked areas in the arteries that send blood to the heart. If a blockage is found, your provider may try to open up the artery. They may put a stent in place. Your provider will talk with you about the results of your procedure . Ask any questions you have before you leave. This sheet will help you take care of yourselfat home. Home care ?? Have a responsible adult drive you home after your procedure. ?? Don't drive or make any important decisions for at least 24 hours after getting any type of sedation or anesthesia. ?? Drink 6 to 8 glasses of water over the next 24 hours. This is to help flush the contrast dye outof your body. Call your health care team if your urine has any change in color. ?? Take your temperature every day for 3 to 5 days. If you feel cold and clammy or start sweating, take your temperature right away. Call your health care team. ?? Do only light and easy activities for the next 2 to 3 days. Ask for help with chores and errandswhile you recover. Have someone drive you to your appointments. ?? Don't lift anything heavy until your health care team says it's safe. ?? Ask your health care team when you can expect to return to work. Unless your job involves lifting, you may be able to return to your normal activities within 2 days. ?? Take your medicines as directed. Don't skip doses. ?? Check your incisions every day for signs of infection. These include redness, swelling, and fluid leaking. It's normal to have a small bruise or bump where the catheter was put in. A bruise that'sgetting larger is not normal. Tell your health care team about this. Call your team if you see blood forming in the incision. Go to the emergency room if you have uncontrolled bleeding from the artery site. This is even more important if you take medicines that make it hard for your blood to clot. These include aspirin, clopidogrel, prasugrel, and brilinta. ?? Eat a healthy diet. Make sure it's low in fat, salt, and cholesterol. Ask your health care team for diet information. ?? Stop smoking. Sign up for a quit-smoking program. Or ask your health care team for help. ?? Exercise as your health care team tells you to. Your team may advise you to start a cardiac rehab program. Cardiac rehab is an exercise program where trained health care staff watch your progress and stress on your heart while you exercise. Ask your team how to enroll. ?? Don't swim or take baths until your health care team says it?s OK. You can shower the day after the procedure. Keep the site clean and dry. This keeps the incision from getting wet and infected until the skin and artery can heal. ?? Follow all other after-care instructions from your team. Follow-up care ?? Make a follow-up appointment as advised. It's common to have a follow-up appointment 2 to 4 weeks after an angioplasty or coronary stent procedure. ?? Make a yearly appointment. This is to make sure you're still doing well and not having any new symptoms. ?? Don't wait for a follow-up appointment if your medicines aren't working or you're having heart-related symptoms. Call your provider. When to contact your doctor Contact your provider right away if: ?? You have severe or increasing pain, numbness, coldness, or a bluish color in the leg or arm thatheld the catheter. ?? You have a fever of 100.4?? F ( 38??C) or higher, or as advised by your provider. ?? There are signs of infection at the incision site. These include redness, swelling, drainage, orwarmth. ?? There is bleeding, bruising, or a lot of swelling where the catheter was inserted. ?? You have blood in your urine. ?? Your stools are black or tarry. ?? You have any unusual bleeding. ?? Your heartbeat is irregular, very slow, or fast. ?? You are dizzy. Call 911 Call 911 if: ?? You have chest pain. ?? You are short of breath. ?? You feel sudden numbness or weakness in arms, legs, or face, or have trouble speaking. ?? The puncture site swells up very fast. ?? You have bleeding from the puncture site that doesn't slow down with firm pressure. Last Reviewed Date: 2024 00:00:00 ?? [id number] The [employer]. All rights reserved. This information is not intended as a substitute for professional medical care. Always follow your healthcare professional's instructions. * Trace [facility] - Lianet Chawla RN - 08/31/2024 11:49 AM EDT Images from the original note were not included. 92818 Having Cardiac Catheterization You may have had chest pain (angina), dizziness, or other symptoms of heart trouble. To help diagnose your problem, your health care provider may advise a cardiac catheterization. This is a procedurethat looks for a blockage or narrow area in the arteries around the heart. These can cause chest pain or a heart attack if not treated. It can also be used to evaluate other problems with your heart. This common procedure may also be used to treat a heart problem. It may be done as a planned procedure if you've had chest pain in the past. Or it may be done right away to treat a suspected heart attack. The catheter may be placed in the arm or the groin. Before the procedure ?? Tell your health care team about all prescription medicines, nwew-sca-fstsfzu medicines, vitamins, and supplements you take and about any allergies you have. ?? Follow any directions you're given for not eating or drinking before the procedure. During the procedure ?? Hair may be trimmed where the catheter will be inserted. This may be in your leg (groin), wrist,or arm. ?? You may be given medicine to relax before the procedure. ?? You'll be given a local anesthetic to prevent pain at the insertion site. ?? A health care provider inserts a tube (sheath) into a blood vessel in your groin or arm. ?? Through the sheath, a long, thin tube called a catheter is placed inside the artery. The catheter is then guided toward your heart under X-ray guidance. ?? The catheter can then be used to measure pressures in the heart. It can take blood samples if needed. It can also be used to inject contrast liquid into the heart arteries to look for blockages. This is called angiography. After the procedure ?? Your health care providers will tell you how long to lie down and keep the insertion site still. ?? If the insertion site was in your groin, you may need to lie down with your leg still for up to 6 or more hours. A stitch (suture) or closure device such as a collagen plug may be used on the artery site to close the site. If so, you may be able to move sooner. This depends on any bleeding that occurs. ?? If your arm was used, you may need to wear a special type of immobilizing device and pressure bandage for a few hours after the procedure. ?? A nurse will check the insertion site and your blood pressure. ?? You may be asked to drink fluid. This is to help flush the contrast liquid out of your system. ?? Have someone drive you home from the hospital. ?? It?s normal to find a small bruise or lump at the insertion site. This should go away in a few weeks. When to call your doctor Contact your health care provider or seek medical care right away if you: ?? Have pain, swelling, redness, warmth, bleeding, or fluid leaking at the insertion site. ?? Are unable to pee. ?? Have blood in your urine, black or sticky stools, or any other kind of bleeding. ?? Have a fever of 100.4??F ( 38.0??C) or higher, or as advised by your provider. Call 911 Call 911 if: ?? You have chest pain or pressure, nausea or vomiting, heavy sweating, dizziness, or fainting. ?? You are short of breath or have trouble breathing. ?? You have severe pain, coldness, or a bluish color in the leg or arm where the catheter was inserted. ?? You have sudden numbness or weakness in your arms, legs, or face, or you have trouble speaking. ?? The puncture site swells up very fast. ?? Bleeding from the puncture site doesn't slow down when you press on it firmly. Last Reviewed Date: 2024 00:00:00 ?? [id number] The [employer]. All rights reserved. This information is not intended as a substitute for professional medical care. Always follow your healthcare professional's instructions. * Trace Pierre - Lianet Chawla RN - 08/31/2024 11:49 AM EDT Images from the original note were not included. 99948 Understanding Transcatheter Aortic Valve Replacement (TAVR) Transcatheter aortic valve replacement (TAVR) is a procedure to replace a diseased aortic valve with a new tissue or biologic valve. The old heart valve is not removed but works like an anchor for the new heart valve. This procedure is done through small incisions using a long thin tube (catheter),X-rays, and ultrasound. TAVR is also known as transcatheter aortic valve implantation (JENNIFER). The aortic valve directs blood flow from the heart (left ventricle) into the aorta (large blood vessel) and carries blood to the rest of the body. In some people, the valve becomes scarred and stiff and has trouble opening. This is called aortic stenosis. The heart then has to work harder to push blood through the narrowed heart valve to the rest of the body. Over time, the extra work can cause the heart muscle to get weak. This may lead to symptoms such as tiredness, shortness of breath, chestpain, and fainting. It can also lead to heart failure. In TAVR, the catheter is usually placed in the femoral artery in your groin. Sometimes, the catheter is placed through the axillary artery near your armpit or the carotid artery in your neck. Occasionally, the catheter is placed through a small incision in your chest underneath the collarbone or anincision between the ribs. The health care provider uses the catheter to bring the new valve to your heart. The new valve is made of cow or pig heart tissue and is mounted on a metal frame. The new valve helps improve blood flow from the heart to the rest of the body. Reasons for TAVR TAVR may be a choice for some people instead of surgical aortic valve replacement. This will be based on age, surgical risks, how bad your aortic stenosis is, other medical factors, and other cardiacissues. Your health care team will determine if TAVR is a good choice for you. Risks and possible complications TAVR works very well in most people. But all medical procedures carry some risks and possible complications. Some common risks of TAVR include: ?? Bleeding or the need for a blood transfusion. ?? Anemia (not enough red blood cells in the blood). ?? Blood clots. ?? Infection. ?? Collection of fluid around your heart (pericardial effusion). ?? Confusion or memory problems. ?? Damage to the heart. ?? Damage to your blood vessels. ?? Failure of the new valve. ?? Heart attack. ?? Heart rhythm problems that may need a pacemaker. ?? Kidney damage or failure. ?? Lung puncture. ?? Stroke. ?? Risks of anesthesia (including ). ?? In rare cases, the new heart valve moving out of position after it was implanted. ?? Leaking of blood in or around the new heart valve. You may have other risks, depending on your medical condition. Be sure to talk with your health care provider if you have any concerns before the procedure. Life after a heart valve replacement ?? A new heart valve can help ease symptoms you may have had. These include pain or pressure in your chest, shortness of breath, and tiredness. ?? After the surgery, you will need to take aspirin or other blood-thinning medicine every day. Youwill likely also need to take an antiplatelet medicine for a certain period of time. These medicines help prevent blood clots in your new valve. ?? You will need to take antibiotics before you have dental work and certain other medical procedures, as prescribed by your health care provider. This is to help prevent bacteria from harming your new heart valve. ?? Your provider may tell you to make some lifestyle changes to protect your heart and make it stronger. These include exercise, quitting smoking, and staying at a healthy weight. ?? After your recovery from TAVR, you may be able to return to regular activities. You should notice improvement in the symptoms from your heart valve disease. Be sure to talk to your provider beforeyou start any exercise program. Last Reviewed Date: 2024 00:00:00 ?? [id number] [employer]. All rights reserved. This information is not intended as a substitute for professional medical care. Always follow your healthcare professional's instructions. * [facility] - Lianet Chawla RN - 08/31/2024 11:49 AM EDT Images from the original note were not included. [id number] Heart Valve Problems: Aortic Stenosis Aortic stenosis means your aortic valve has a problem opening. The aortic valve is one of the heart?s four valves. It's on the left side of the heart. It sits between the left lower chamber (left ventricle) and the large blood vessel that sends blood to the body (aorta). With aortic stenosis, the left ventricle has to work harder to push the blood through the valve. In some cases, this extra work will make the muscle of the ventricle thicken. In time, the extra work can tire the heart and causethe heart muscle to weaken. Stenosis usually gets worse slowly, over many years. But sometimes, it can quickly get worse. Open aortic valve with stenosis (viewed from above). Cross section of heart showing aortic valve with stenosis. Possible causes Calcium deposits can form on the aortic valve as you get older. These deposits make the valve stiffand hard to open. In some cases, you may have been born with an abnormal aortic valve. Or your aortic valve may have been damaged by rheumatic fever or a heart infection. Radiation therapy used as treatment for cancers such as lymphoma, may be a cause. Treating aortic stenosis In many cases, treatment won?t be needed unless you have symptoms. If you do have symptoms, medicines may help ease them. If the stenosis is severe, your healthcare provider may advise surgery to replace the valve. Or you may have a catheter-based procedure (transcatheter aortic valve replacement or TAVR) to replace the valve, even if you don?t have symptoms. Last Reviewed Date: 2023 00:00:00 ?? [id number] [employer]. All rights reserved. This information is not intended as a substitute for professional medical care. Always follow your healthcare professional's instructions. * Discharge Summary - Zuly Gaspar APRN - 08/31/2024 11:33 AM EDT Images from the original note were not included. Hospitalization Admit Date/Time: 08/30/2024 1:09 PM Admitting Attending: Miguel Lamb Discharge Date: 08/31/24 Discharge Attending Physician: Miguel Lamb MD PCP name and Address: Mustapha James MD [address] [place] [id number] Chief Concern, Brief History of Present Illness, and Hospital Course Jodi Byrne, is a 69 y.o. female who presents today for an elective PCI per Dr. Lamb. Patient's PMH is significant for , CAD s/p LM PCI 06/2019, PAD s/p intravascular lithotripsy to left popliteal artery and left SFA with drug coated balloon angioplasty of same as well as AA reconstruction with kissing stents to bilateral iliac arteries 12/2021, HLD, HTN, COPD and tobacco abuse. She is currently undergoing futher workup for TAVR vs SAVR and has been deemed to have moderate per Dr. Lamb's review. Evaluated by Dr. Denny and CT surgery who felt patient is very frail and poor surgical candidate. She was discussed at Valve conference on 08/15/24 and deemed not a TAVR candidate at this time since stenosis only moderate but would benefit from high risk PCI. Had previous PCI to LM in 2019. She reports worsening SOB with minimal exertion over the last several months as well as chest pain. Incidental finding noted on CT scan including right upper lobe nodule with evidence of peripheral volume loss and scarring and large right hilar lymh node concerning for neoplasm with distal obstruction as well as adrenal gland nodule. Valve coordinator has sent results to her oncologist for further review. IV contrast allergy - she was premedicated appropriately Cardiac diagnostics: TTE 05/2024: EF 55%, impaired LV relaxation with increased LV wall thickness. Severe paradoxical low-flow, low-gradient with KARISHMA 0.8 cm2 and mean AV gradient 22 mmHg. Mild MR #MV CAD s/p stents #PVD #Escalating angina #IV contrast allergy - NYHA Class III - s/p PCI to LM in 06/2019 - PAD s/p intravascular lithotripsy to left popliteal artery and left SFA with drug coated balloon angioplasty of same as well as AA reconstruction with kissing stents to bilateral iliac arteries 12/2021 - [facility] 06/2424 ([place]): LM ostial calcified eccentric 90% stenosis in the distal eccentric 40% stenosis. Proximal LAD stent widely patent with minimal In- Stent restenosis in the 70-80% stenosis justdistal to the stent in the [place] LAD. The remaining LAD is widely patent. The circumflex artery isnondominant with diffuse calcification has been no stenosis greater than 30%. The right coronary artery is dominant and has an ostial calcified 90% stenosis followed by 70-80% stenosis. - Increased usage of SL NTG - pre-medicated for IV contrast allergy Plan: - s/p PCI with BA x 1 to ostial left main and BA x 1 to ostial RCA via right femoral with perclose (08/30/24, Dr. Lamb, [facility]) - Continue DAPT with ASA and plavix - refill of plavix sent to home pharmacy - Continue metoprolol XL 75mg nightly - Continue lisinopril 20mg nightly - Continue Repatha - Continue Nexletol - SL NTG PRN - Residual mid-distal RCA lesion. Was not addressed during this time due to prolonged table time and increased contrast load. Plans to come back from staged intervention Tuesday09/18/24. Pre-medication of benadryl and prednisone sent to home pharmacy. #Right renal artery stenosis s/p stent - Right renal artery has an ostial calcified 90% stenosis. Patient underwent successful stenting ofthe right renal artery with a bare metal stent #Aortic stenosis - TTE 05/2024 ([facility]) with EF 55%, low-flow, low-gradient - NYHA Class lll - Dr. Lamb personally reviewed images and finds that is moderate - Poor surgical candidate. Discussed at valve conference and did not feel TAVR at this time was warranted and was proceeding with PCI as above - Pending results of PCI, will discuss needs for TAVR in the future. #GALLO - Baseline SrCr ~ 1.0. SrCr 1.36 at discharge - Appears to have trended 1.14 > 2.13 > 1.25 with previous cath in 2019. Suspect this is secondary to complex case with increase contrast burden and IV contrast allergy - IV hydration #Leukocytosis - WBC 10 (admit) > 16 (discharge) - likely reactionary given prolonged case yesterday - afebrile and no other signs of infection #acute on chronic anemia - based on previous trends, chronically low back in 2019 when she had LM stented in the past - Hgb 8.8 on admission > 7.9 at discharge - No overt signs of bleeding groin site stable - FU with PCP for further management #Right lung nodule #Left adrenal gland nodule - Found incidentally on pre tavr CT scan - recommended further tissue sampling and/or PET scan for lung nodule and CT imaging for adrenal gland - results faxed to patients oncologist > defer management to them Tobacco abuse - Currently weaning with nicotine patches - Dr. Lamb recommended immediate cessation of all tobacco products Surgeries and Procedures Procedures performed in this encounter Procedures Cardiac catheterization Percutaneous coronary intervention (N/A) FINAL REPORT PENDING AT TIME OF DISCHARGE Discharge Diagnosis Nonrheumatic aortic valve stenosis Active Hospital Problems S/P coronary artery stent placement Severe obesity (BMI 35.0-39.9) with comorbidity (CMS/HCC) *Nonrheumatic aortic valve stenosis Coronary artery disease Physical Exam: GENERAL: WD, WN, NAD on RA. EYES: No scleral icterus or conjunctivitis HENT: Atraumatic, normocephalic, nares patent, mucus membranes moist NECK: Supple, no JVD, no evidence of bruit bilaterally RESP/CHEST: Symmetric expansion; non labored. CTA bilaterally. CARD: regular rate and rhythm, normal S1 and S2, no murmur, rub, or gallop Extremities: No lower extremity edema. No cyanosis or clubbing. Pedal pulses palpable +2. GI: No organomegaly or masses. Soft, Nontender, nondistended. BS present and normoactive x 4 quadrants SKIN: Right groin site stable without hematoma. Mild ecchymosis present without redness. No rash, sores, lesions or subcutaneous nodules. NEURO: AAOx4. Motor intact and no focal deficits PSYCH: Mood and affect congruent and appropriate to situation. VITALS Visit Vitals BP 108/51 (BP Location: Right arm, Patient Position: Sitting) Pulse 81 Temp 37 ??C (98.6 ??F) (Oral) Ht 1.6 m (5' 3 ) Wt 90.9 kg (200 lb 6.4 oz) SpO2 100% BMI 35.50 kg/m?? LABS Recent Results (from the past week) Hemogram (CBC) Collection Time: 08/30/24 1:39 PM Result Value Ref Range WBC Count 10.06 3.70 - 10.30 10*3/uL RBC Count 3.10 (L) 3.90 - 5.20 10*6/uL HGB 8.8 (L) 11.2 - 15.7 g/dL HCT 28.9 (L) 34.0 - 45.0 % Platelet Count 284 155 - 369 10*3/uL MCV 93 79 - 98 fL MCH 28.4 26.0 - 32.0 pg MCHC 30.4 (L) 30.7 - 35.5 g/dL RDW 14.8 (H) 11.5 - 14.5 % MPV 10.3 8.8 - 12.5 fL nRBC 0.0 <=0.0 per 100 WBCs Basic metabolic panel Collection Time: 08/30/24 1:39 PM Result Value Ref Range Glucose, Plasma 138 (H) 74 - 99 mg/dL BUN, Plasma 16 8 - 23 mg/dL Creatinine, Plasma 0.96 0.60 - 1.10 mg/dL BUN/Creatinine Ratio 17 Sodium, Plasma 138 136 - 145 mmol/L Potassium, Plasma 4.3 3.6 - 4.9 mmol/L Chloride, Plasma 101 97 - 107 mmol/L CO2, Plasma 20 (L) 22 - 29 mmol/L Anion Gap 17 (H) 6 - 16 mmol/L Total Calcium, Plasma 9.5 8.9 - 10.2 mg/dL eGFRcr 63.4 mL/min/1.73m*2 POCT creatinine Collection Time: 08/30/24 1:45 PM Result Value Ref Range Creatinine, Point of Care 1.1 0.6 - 1.1 mg/dL POCT eGFR 54 mL/min/1.73m*2 Construction And Maintenance Inspector ID SagardannypatrickbertaCasie barraza Device ID [id number] [facility] Basic Metabolic Panel, Plasma Collection Time: 08/31/24 3:59 AM Result Value Ref Range Glucose, Plasma 146 (H) 74 - 99 mg/dL BUN, Plasma 22 8 - 23 mg/dL Creatinine, Plasma 1.36 (H) 0.60 - 1.10 mg/dL BUN/Creatinine Ratio 16 Sodium, Plasma 138 136 - 145 mmol/L Potassium, Plasma 4.5 3.6 - 4.9 mmol/L Chloride, Plasma 102 97 - 107 mmol/L CO2, Plasma 20 (L) 22 - 29 mmol/L Anion Gap 16 6 - 16 mmol/L Total Calcium, Plasma 9.1 8.9 - 10.2 mg/dL eGFRcr 41.7 mL/min/1.73m*2 CBC W/O Differential Collection Time: 08/31/24 3:59 AM Result Value Ref Range WBC Count 16.14 (H) 3.70 - 10.30 10*3/uL RBC Count 2.68 (L) 3.90 - 5.20 10*6/uL HGB 7.9 (L) 11.2 - 15.7 g/dL HCT 25.6 (L) 34.0 - 45.0 % Platelet Count 277 155 - 369 10*3/uL MCV 96 79 - 98 fL MCH 29.5 26.0 - 32.0 pg MCHC 30.9 30.7 - 35.5 g/dL RDW 15.0 (H) 11.5 - 14.5 % MPV 10.3 8.8 - 12.5 fL nRBC 0.0 <=0.0 per 100 WBCs Magnesium, Plasma Collection Time: 08/31/24 3:59 AM Result Value Ref Range Magnesium, Plasma 2.2 1.9 - 2.4 mg/dL N-Terminal Probnp, Plasma Collection Time: 08/31/24 3:59 AM Result Value Ref Range N-Terminal, PROBNP, Plasma 5,650 (H) 0 - 899 pg/mL Medications: Medication List .. albuterol 108 (90 Base) MCG/ACT inhaler Inhale 2 puffs 1 time as needed for wheezing or shortness of breath. aspirin 81 MG EC tablet Take 1 tablet by mouth daily. baclofen 10 MG tablet Commonly known as: Lioresal Take by mouth 3 times a day. cetirizine 10 MG tablet Commonly known as: ZyrTEC Take 1 tablet by mouth daily. clopidogrel 75 MG tablet Commonly known as: Plavix Take 1 tablet by mouth daily. diazePAM 5 MG tablet Commonly known as: Valium Take 1 tablet by mouth 2 times a day. diphenhydrAMINE 50 MG tablet Commonly known as: Benadryl Take 1 tablet 1 hour prior to surgery famotidine 20 MG tablet Commonly known as: Pepcid Take 1 tablet by mouth in the morning and 1 tablet in the evening. fluticasone 50 MCG/ACT nasal spray Commonly known as: Flonase Administer 1 spray into each nostril daily. furosemide 20 MG tablet Commonly known as: Lasix Take 1 tablet by mouth daily. HYDROcodone-acetaminophen 7.5-325 MG tablet Commonly known as: [place] Take 1 tablet by mouth every 8 hours as needed. lansoprazole [address] capsule Commonly known as: Prevacid Take 1 capsule by mouth daily. levothyroxine 50 MCG tablet Commonly known as: Synthroid, Levoxyl Take 1 tablet by mouth daily before breakfast. lisinopril 20 MG tablet Take 1 tablet by mouth daily. metoprolol succinate XL 50 MG 24 hr tablet Commonly known as: Toprol-XL Take 1 tablet by mouth daily. Do not crush or chew. montelukast 10 MG tablet Commonly known as: Singulair Take 1 tablet by mouth nightly. Multiple Vitamins-Iron tablet Take 1 tablet by mouth daily. Nexletol 180 MG tablet Generic drug: Bempedoic Acid Take 1 tablet by mouth daily. nitroglycerin 0.4 MG SL tablet Commonly known as: Nitrostat Place 1 tablet under the tongue every 5 minutes as needed for chest pain. predniSONE 50 MG tablet Commonly known as: Deltasone Take 13 hours, 7 hours and 1 hour prior to surgery Repatha 140 MG/ML solution prefilled syringe Generic drug: Evolocumab Inject under the skin. Trelegy Ellipta 100-62.5-25 MCG/ACT aerosol powder Generic drug: Paorjhniwwf-Isdvoukaw-Hjbkln Inhale. VITAMIN D (CHOLECALCIFEROL) PO Take by mouth. Where to Get Your Medications These medications were sent to [facility] [address] [facility] [address] [facility] [address], [place] [id number] clopidogrel 75 MG tablet diphenhydrAMINE 50 MG tablet predniSONE 50 MG tablet Follow-Up / Post Discharge Instructions Discharge Instructions/Restrictions: Activity & Incision Instructions: For 1 weeks, do not lift anything heavier than 10 pounds (about the weight of a gallon of milk). Do not drive for 24 hours after procedure. You can shower within the next 24 hours. Do not submerge your incision in water. No tub baths, hot tubs or swimming pools for 7-10 days. You do NOT need to place a new dressing over your incision site, It will heal from the inside out. Every day, check the area around your incision site for signs of infection or problems. Call the [facility] at [phone] if your incision is red, warm or oozing green or yellow drainage. Or if you develop a fever > 100.4 Medication Instruction: DO NOT MISS ANY DOSES OF YOUR BLOOD THINNERS - ASPIRIN AND PLAVIX. These will protect the new stents that were placed. You will be on them for at least 1 year but likely life given your past history. You will need to premedicate again before your surgery. A refill of this medications has been sent to your home pharmacy. Take Medication exactly as instructed. Do not take any medications that have not been ordered for you. This means do not take other people's medication, illegal drugs or substances. Follow up: You will come back for the next staged procedure to stent your right coronary artery. This will be done on Tuesday09/18/2024. Someone will call you the week before with the exact time you should arrive. If this date and time do not work, call the Cardiac Asset Recovery Specialist at They will deliver a Rolator walker to your house. Outpatient Follow-Up Staged PCI to RCA 09/18/24 Discharge Disposition/Condition Disposition: Home Condition: Stable (s/sx potential problems absent or manageable) I spent > 30min working on this discharge including performing physical examination, review of laboratory/imaging results with the patient, discussion of medication management, and preparation of discharge paperwork. Zuly Gaspar APRN [phone] Cosigned by Miguel Lamb MD at 08/31/2024 12:09 PM EDT * Hospital Course - Zuly Gaspar APRN - 08/30/2024 4:55 PM EDT Jodi Byrne, is a 69 y.o. female who presents today for an elective PCI per Dr. Lamb. Patient's PMH is significant for , CAD s/p LM PCI 06/2019, PAD s/p intravascular lithotripsy to left popliteal artery and left SFA with drug coated balloon angioplasty of same as well as AA reconstruction with kissing stents to bilateral iliac arteries 12/2021, HLD, HTN, COPD and tobacco abuse. She is currently undergoing futher workup for TAVR vs SAVR and has been deemed to have moderate per Dr. Lamb's review. Evaluated by Dr. Denny and CT surgery who felt patient is very frail and poor surgical candidate. She was discussed at Valve conference on 08/15/24 and deemed not a TAVR candidate at this time since stenosis only moderate but would benefit from high risk PCI. Had previous PCI to LM in 2019. She reports worsening SOB with minimal exertion over the last several months as well as chest pain. Incidental finding noted on CT scan including right upper lobe nodule with evidence of peripheral volume loss and scarring and large right hilar lymh node concerning for neoplasm with distal obstruction as well as adrenal gland nodule. Valve coordinator has sent results to her oncologist for further review. IV contrast allergy - she was premedicated appropriately Cardiac diagnostics: TTE 05/2024: EF 55%, impaired LV relaxation with increased LV wall thickness. Severe paradoxical low-flow, low-gradient with KARISHMA 0.8 cm2 and mean AV gradient 22 mmHg. Mild MR #MV CAD s/p stents #PVD #Escalating angina #IV contrast allergy - NYHA Class III - s/p PCI to LM in 06/2019 - PAD s/p intravascular lithotripsy to left popliteal artery and left SFA with drug coated balloon angioplasty of same as well as AA reconstruction with kissing stents to bilateral iliac arteries 12/2021 - [facility] 06/2424 ([place]): LM ostial calcified eccentric 90% stenosis in the distal eccentric 40% stenosis. Proximal LAD stent widely patent with minimal In- Stent restenosis in the 70-80% stenosis justdistal to the stent in the [place] LAD. The remaining LAD is widely patent. The circumflex artery isnondominant with diffuse calcification has been no stenosis greater than 30%. The right coronary artery is dominant and has an ostial calcified 90% stenosis followed by 70-80% stenosis. - Increased usage of SL NTG - pre-medicated for IV contrast allergy Plan: - s/p PCI with BA x 1 to ostial left main and BA x 1 to ostial RCA via right femoral with perclose (08/30/24, Dr. Lamb, [facility]) - Continue DAPT with ASA and plavix - refill of plavix sent to home pharmacy - Continue metoprolol XL 75mg nightly - Continue lisinopril 20mg nightly - Continue Repatha - Continue Nexletol - SL NTG PRN - Residual mid-distal RCA lesion. Was not addressed during this time due to prolonged table time and increased contrast load. Plans to come back from staged intervention Tuesday09/18/24. Pre-medication of benadryl and prednisone sent to home pharmacy. #Right renal artery stenosis s/p stent - Right renal artery has an ostial calcified 90% stenosis. Patient underwent successful stenting ofthe right renal artery with a bare metal stent #Aortic stenosis - TTE 05/2024 ([facility]) with EF 55%, low-flow, low-gradient - NYHA Class lll - Dr. Lamb personally reviewed images and finds that is moderate - Poor surgical candidate. Discussed at valve conference and did not feel TAVR at this time was warranted and was proceeding with PCI as above - Pending results of PCI, will discuss needs for TAVR in the future. #GALLO - Baseline SrCr ~ 1.0. SrCr 1.36 at discharge - Appears to have trended 1.14 > 2.13 > 1.25 with previous cath in 2019. Suspect this is secondary to complex case with increase contrast burden and IV contrast allergy - IV hydration #Leukocytosis - WBC 10 (admit) > 16 (discharge) - likely reactionary given prolonged case yesterday - afebrile and no other signs of infection #acute on chronic anemia - based on previous trends, chronically low back in 2019 when she had LM stented in the past - Hgb 8.8 on admission > 7.9 at discharge - No overt signs of bleeding groin site stable - FU with PCP for further management #Right lung nodule #Left adrenal gland nodule - Found incidentally on pre tavr CT scan - recommended further tissue sampling and/or PET scan for lung nodule and CT imaging for adrenal gland - results faxed to patients oncologist > defer management to them Tobacco abuse - Currently weaning with nicotine patches - Dr. Lamb recommended immediate cessation of all tobacco products * Pre-Procedure Note - Siobhan Kraus MD - 08/30/2024 1:30 PM EDT Images from the original note were not included. CARDIOLOGY SEDATION PRE-PROCEDURAL ASSESSMENT AND SEDATION PLAN OF CARE Indication for procedure: The encounter diagnosis was Nonrheumatic aortic valve stenosis. Planned Procedure: PCI to left main Relevant past medical history: CAD, LM PCI in 2019, PAD, renal artery stenosis, cigarette smoking Previous problems with surgery, anesthesia or sedation: No Previous family history or problems with anesthesia or sedation: No Relevant Labs: Lab Results Component Value Date CREATININE 1.11 (H) 01/24/2024 EGFR 53 (L) 01/24/2024 INR 1.4 (H) 07/16/2019 Planned Sedation/Anesthesia: Moderate Airway assessment: normal Mallampati Score: II (hard and soft palate, upper portion of tonsils anduvula visible) ASA: ASA 3 - Patient with moderate systemic disease with functional limitations Directed physical examination: There were no vitals filed for this visit. GENERAL: Awake, alert, NAD HEENT: NCAT NECK: No appreciable JVD CARDIAC: Regular rate, regular rhythm, normal S1/S2, no m/r/g, 2+ radial pulses bilaterally PULM: CTAB without increased work of breathing ABD: Soft, NT, ND EXT: Warm and well perfused, no LE edema SKIN: No rashes or lesions NEURO: A&Ox4, moving all extremities spontaneously Benefits, risks and alternatives of procedure and planned sedation have been discussed with the patient and/or their in store marketing representative. All questions answered and they agree to proceed. * H&P - Siobhan Kraus MD - 08/30/2024 1:28 PM EDT Images from the original note were not included. INTERVENTIONAL CARDIOLOGY HISTORY AND PHYSICAL SUBJECTIVE History Of Present Illness Jodi Byrne is a 69 y.o. female with a past medical history CAD, LM PCI in 2019, PAD, renal artery stenosis, cigarette smoking presents for elective PCI. Review of Systems 14 point ROS reviewed and is otherwise negative except that which is mentioned in the HPI. Past Medical History Medical History[1] Surgical History Surgical History[2] Family History Reviewed and non-contributory. Social History Tobacco use: Yes Alcohol use: Denies any significant recent usage. Other: Denies any recent illicit drug use. Allergies Iodinated contrast media, Iodine, Atorvastatin, Crestor [rosuvastatin], Demerol hcl [meperidine], Pseudoephedrine hcl, and Statins Home Medications sodium chloride, 10 mL, Intravenous, q12h PRN medications: Insert peripheral IV AND Saline lock IV AND sodium chloride AND sodiumchloride OBJECTIVE Physical Exam There were no vitals taken for this visit. GENERAL: Awake, alert, NAD HEENT: NCAT NECK: No appreciable JVD CARDIAC: Regular rate, regular rhythm PULM: CTAB without increased work of breathing ABD: Soft, NT, ND EXT: Warm and well perfused, no LE edema SKIN: No rashes or lesions NEURO: A&Ox4, moving all extremities spontaneously Intake / Output No intake or output data in the 24 hours ending 08/30/24 1328 Results / Imaging No lab exists for component: ALB Most recent Echocardiogram: No echocardiogram results found for the past 12 months ASSESSMENT/PLAN Jodi Byrne is a 69 y.o. female with a past medical history CAD, LM PCI in 2019, PAD, renal artery stenosis, cigarette smoking presents for elective PCI. Right femoral access Compliant with DAPT Siobhan Kraus MD Fellow, Department of Cardiovascular Medicine Pager: [phone] [1] Past Medical History: Diagnosis Date COPD (chronic obstructive pulmonary disease) ([facility]) HLD (hyperlipidemia) HTN (hypertension) Lung cancer ([facility]) Seasonal allergies [2] Past Surgical History: Procedure Laterality Date BACK SURGERY CARDIAC STENT HYSTERECTOMY KNEE SURGERY Cosigned by Miguel Lamb MD at 08/31/2024 9:01 AM EDT Associated attestation - Miguel Lamb MD - 08/31/2024 9:01 AM EDT I saw and evaluated the patient with the resident/fellow. I discussed the case with the resident/fellow and agree with the findings and plan as documented. documented in this encounter Plan of Treatment Upcoming Encounters Date Type Department Care Team (Late st Contact Info) Description 01/04/2025 2:00 PM EDT Appointment Cardiac Imaging [address] [place] [id number] 01/04/2025 3:30 PM EDT Office Visit [facility] [place] [address] [place] [phone] Miguel Lamb MD [address] [place] [address] documented as of this encounter Procedures Procedure Name Priority Date/Time Associated Diagnosis Comments N-TERMINAL PROBNP, PLASMA Routine 08/31/2024 3:59 AM EDT CBC W/O DIFFERENTIAL Routine 08/31/2024 3:59 AM EDT MAGNESIUM, PLASMA Routine 08/31/2024 3:5 9 AM EDT BASIC METABOLIC PANEL, PLASMA Routine 08/31/2024 3:59 AM EDT ECG ADULT Routine 08/30/2024 6:02 PM EDT PERC CORONARY INTERVENTION Routine 08/30/2024 5:38 PM EDT Nonrheumatic aortic valve stenosis POCT ACT UNSOLICITED RESULTS Routine 08/30/2024 5:11 PM EDT POCT ACT UNSOLICITED RESULTS Routine 08/30/2024 4:28 PM EDT POCT ACT UNSOLICITED RESULTS Routine 08/30/2024 3:38 PM EDT POCT ACT UNSOLICITED RESULTS Routine 08/30/2024 3:31 PM EDT POCT CREATININE ISTAT UNSOLICITED RESULTS Routine 08/30/2024 1:45 PM EDT CBC W/O DIFFERENTIAL STAT 08/30/2024 1:39 PM EDT BASIC METABOLIC PANEL, PLASMA STAT 08/30/2024 1:39 PM EDT documented in this encounter Results * (ABNORMAL) N-Terminal Probnp, Plasma (08/31/2024 3:59 AM EDT) N-Terminal, PROBNP, Plasma 5,650(H) 0 - 899 pg/mL 08/31/2024 5:38 AM EDT [facility] Blood Venous blood specimen / Unknown Venipuncture / Unknown 08/31/2024 3:59 AM EDT 08/31/2024 4:36 AM EDT Zuly Gaspar APRN LAB BLOOD ORDERABLES Final R esult Performing Organization Address [facility] Co de Phone Number [facility] [address] [place] [address] * Magnesium, Plasma (08/31/2024 3:59 AM EDT) Pathologist [facility] Magnesium, Plasma 2.2 1.9 - 2.4 mg/dL 08/31/2024 5:38 AM EDT [facility] Blood Venous blood specimen / Unknown Venipuncture / Unknown 08/31/2024 3:59 AM EDT 08/31/2024 4:36 AM EDT Zuly Gaspar APRN LAB BLOOD ORDERABLES Final R esult Performing Organization Address City/[facility]/ZIP Co de Phone Number [facility] [address] [place] [address] * (ABNORMAL) CBC W/O Differential (08/31/2024 3:59 AM EDT) Pathologist [facility] WBC Count 16.14(H) 3.70 - 10.30 10*3/uL LAB HEMATOLOGY METHOD 08/31/2024 4:45 AM EDT [facility] RBC Count 2.68(L) 3.90 - 5.20 10*6/uL LAB HEMATOLOGY METHOD 08/31/2024 4:45 AM EDT [facility] HGB 7.9(L) 11.2 - 15.7 g/dL LAB HEMATOLOGY METHOD 08/31/2024 4:45 AM EDT [facility] HCT 25.6(L) 34.0 - 45.0 % LAB HEMATOLOGY METHOD 08/31/2024 4:45 AM EDT [facility] Platelet Count 277 155 - 369 10*3/uL LAB HEMATOLOGY METHOD 08/31/2024 4:45 AM EDT [facility] MCV 96 79 - 98 fL LAB HEMATOLOGY METHOD 08/31/2024 4:45 AM EDT [facility] MCH 29.5 26.0 - 32.0 pg LAB HEMATOLOGY METHOD 08/31/2024 4:45 AM EDT [facility] MCHC 30.9 30.7 - 35.5 g/dL LAB HEMATOLOGY METHOD 08/31/2024 4:45 AM EDT [facility] RDW 15.0(H) 11.5 - 14.5 % LAB HEMATOLOGY METHOD 08/31/2024 4:45 AM EDT [facility] MPV 10.3 8.8 - 12.5 fL LAB HEMATOLOGY METHOD 08/31/2024 4:45 AM EDT [facility] nRBC 0.0 <=0.0 per 100 WBCs LAB HEMATOLOGY METHOD 08/31/2024 4:45 AM EDT [facility] Blood Venous blood specimen / Unknown Venipuncture / Unknown 08/31/2024 3:59 AM EDT 08/31/2024 4:29 AM EDT us Zuly Gaspar CHILD CARE PROVIDER LAB BLOOD ORDERABLES Final R esult [facility] [address] [place] [address] * (ABNORMAL) Basic Metabolic Panel, Plasma (08/31/2024 3:59 AM EDT) Glucose, Plasma 146(H) 74 - 99 mg/dL 08/31/2024 5:38 AM EDT [facility] BUN, Plasma 22 8 - 23 mg/dL 08/31/2024 5:38 AM EDT [facility] Creatinine, Plasma 1.36(H) 0.60 - 1.10 mg/dL 08/31/2024 5:38 AM EDT [facility] BUN/Creatinine Ratio 16 08/31/2024 5:38 AM EDT [facility] Sodium, Plasma 138 136 - 145 mmol/L 08/31/2024 5:38 AM EDT [facility] Potassium, Plasma 4.5 3.6 - 4.9 mmol/L 08/31/2024 5:38 AM EDT [facility] Chloride, Plasma 102 97 - 107 mmol/L 08/31/2024 5:38 AM EDT [facility] CO2, Plasma 20(L) 22 - 29 mmol/L 08/31/2024 5:38 AM EDT [facility] Anion Gap 16 6 - 16 mmol/L 08/31/2024 5:38 AM EDT [facility] Total Calcium, Plasma 9.1 8.9 - 10.2 mg/dL 08/31/2024 5:38 AM EDT [facility] eGFRcr 41.7 mL/min/1.7 3m*2 08/31/2024 5:38 AM EDT [facility] Comment:Reported eGFRcr in m L/min/1.73m2 is based the CKD-EPI 2020 equation that does not use a race coefficient. Blood Venous blood specimen / Unknown Venipuncture / Unknown 08/31/2024 3:59 AM EDT 08/31/2024 4:36 AM EDT us Zuly Gaspar APRN LAB BLOOD ORDERABLES Final R esult [facility] [address] [place] [address] * ECG Adult (08/30/2024 6:02 PM EDT) EKG DIAGNOSIS CLASS Abnormal MUSE ECG Ventricular Rate 99 BPM MUSE ECG Atrial Rate 99 BPM MUSE ECG CO Interval 142 ms MUSE ECG QRSD Interval 86 ms MUSE ECG QT Interval 368 ms MUSE ECG QTC Interval 472 ms MUSE ECG P [place] 66 degrees MUSE ECG R [place] 16 degrees MUSE ECG T Wave [place] 59 degrees MUSE ECG Diagnosis Normal sinus rhythm MUSE ECG Diagnosis Nonspecific ST and T wave abnormality MUSE ECG Diagnosis MUSE ECG Diagnosis MUSE ECG Diagnosis Confirmed by Dusty Petit ([id number]) on 08/31/2024 5:05:48 PM MUSE ECG 08/30/2024 6:02 PM EDT 08/31/2024 5:05 PM EDT us Miguel Lamb MD ECG ORDERABLES Final Result MUSE ECG * PERC CORONARY INTERVENTION (08/30/2024 5:38 PM EDT) Anatomical Region Laterality Modality Other Narrative 09/03/2024 2:51 PM EDT Conclusion: 1. 90% ostial left main stenosis s/p successful PCI with placement of a 4.5 x 15 mm Dillingham [place] drug-eluting stent (overlapping with previously placed stent distally and 1-2 mm of stent extending in the aorta) 2. 70% heavily calcified distal left main severe in-stent re-stenosis s/p balloon angioplasty with a 3.5 NC balloon 3. 90% ostial RCA stenosis s/p successful PCI with placement of a 3.0 x 12 mm and 3.0 x 18 mm Dillingham [place] drug-eluting stent. Proximal-mid stent post-dilated to 3.5. 4. Residual 70% tubular stenosis of the mid RCA Recommendations: 1. Post-PCI EKG. Post vascular care as ordered. Will admit for overnight observation. 2. DAPT with ASA and Plavix for 12 months. 3. High intensity statin therapy. 4. Aggressive secondary prevention including formal exercise regimen, dietary counseling, weight loss, blood pressure, blood glucose control, and tobacco cessation, as applicable. 5. Will stage mid RCA intervention in 2-3 weeks. Procedure Details Prior cath films were reviewed. After informed consent was obtained, the patient was brought to the cardiac catheterization laboratory for planned PCI. A time out was done to confirm the correct patient, site and procedure. The patient's right groin was prepped and draped in sterile fashion. The skin overlying the patient's right femoral region was anesthetized with 1% lidocaine. Using modified Seldinger technique and under US guidance, an 18-gauge cook needle was used to puncture the right femoral artery, and 0.035 J-tipped guidewire was advanced into the femoral artery without difficulty. A 6F short sheath was advanced over a guidewire and flushed. 6F JL 4 and JR 4 catheters were advanced into the ascending aorta over a 0.035 J-tipped guidewire. Selective left and right coronary arteriography was then carried out in a variety of projections using small amounts of isosmolar contrast material, which was injected by hand. For better opacification of the artery a 6F JL4 guide was used for selective angiography of the left system. Diagnostic imaging revealed severe ostial and distal (ISR) left main and severe ostial RCA disease. Shortly after diagnostic imaging the patient developed chest discomfort and ST depression and the decision was made to proceed with PCI of both the left and right coronary. We first proceeded with PCI of the left main. A 6F JL 4 guide catheter was advanced into the ascending aorta over a 0.035'' J-tipped guidewire and used to engage the left coronary artery. After confirming therapeutic activated clotting time, a Prowater wire was advanced beyond the lesion and into the distal LAD. Given ongoing ischemia with concern for potential hemodynamic instability we opted to direct stent. We then advanced a Dillingham Manjit 4.5 x 12 mm drug-eluting stent into the left main with 1-2 stent struts extending in the aorta, inflated to 12 rachael.We then post- dilated the distal left main ISR with a 3.5 NC balloon, inflated to 22 rachael. We then focused on the RCA. We advanced a 6F J4 guide catheter which was used to engage the right coronary artery. We then advanced a Prowater wire into the distal RCA. For additional guide support we opted to use a Guideliner which was advanced into the proximal RCA over a balloon. Pre-dilation was then carried out using a 2.5 x 15 mm balloon followed by a 3.0 x 20 mm regular and NC balloon. We then advanced a 3.0 x 12 mm and 3.0 x 18 mm Dillingham Manjit drug eluting stents in the proximal RCA (proximal to distal) covering the ostium of the RCA. The proximal-mid stent was then post-dilated to 3.5. The balloon and wires were removed and final angiography was performed to ensure that there was no perforation, dissection or side branch loss. There was some residual disease in the mid RCA; however, given procedure time in addition to radiation and contrast dose the decision was made to conclude the procedure and stage the mid RCA. The guide catheter was then removed over a wire. A 6F Perclose device was used in arteriotomy site to achieve successful hemostasis. The patient was transferred back to the laboratory associate holding area in good condition. Coronary Findings Diagnostic Dominance: Right Left Main: The left main coronary artery trifurcates to supply the left anterior descending artery and the left circumflex artery. There is a 90% ostial left main lesion. There is a previously placed stent in the mid left main which extends into the LAD. There is 70% in-stent re-stenosis of the distal left main. Ost LM lesion is 90% stenosed. calcified Left Anterior Descending: The left anterior descending artery supplies two diagonal branches prior to wrapping around the apex. There is a patent stent in the proximal LAD with mild late lumen loss. Lateral Ramus Intermedius: Large caliber vessel. There is a 40% diffuse lesion in the proximal segment of the ramus branch. Left Circumflex: The left circumflex artery supplies one obtuse marginal and two posterolateral branches before traveling posteriorly in the atrioventricular groove. There is mild diffuse disease of the circumflex. Right Coronary Artery: Dominant for posterior circulation, the RCA supplies a posterolateral branch and the posterior descending artery. There is a 90% tubular lesion in the proximal RCA. There is a 60-70% tubular lesion in the mid RCA. Prox RCA lesion is 100% stenosed. Intervention Ost LM lesion: Stent: Drug-eluting stent was successfully placed. The stent used was a STENT FRONTIER MANJIT RX 4.5MM X 12MM. Stent was deployed by way of balloon expansion. Maximum pressure: 12 rachael. Inflation time: 10 sec. Post-Intervention Lesion Assessment: The intervention was successful. There were no complications. There is a 0% residual stenosis post intervention. Prox RCA lesion: Angioplasty: Angioplasty using standard was performed prior to stent deployment. The balloon used was a CATHETER BALLOON EMERGE MR 15X2.5. Maximum pressure: 12 rachael. Inflation time: 10 sec. Angioplasty: Angioplasty using noncompliant was performed prior to stent deployment. The balloon used was a CATHETER BALLOON EMERGE MR 20X2.5. Maximum pressure: 12 rachael. Inflation time: 10 sec. Angioplasty: Angioplasty using standard was performed prior to stent deployment. The balloon used was a CATHETER BALLOON EMERGE MR 3X20MM. Maximum pressure: 12 rachael. Inflation time: 10 sec. Stent: Drug-eluting stent was successfully placed. The stent used was a STENT CORONARY FRONTIER MANJIT RX 3.00MM X 18MM. Stent was deployed by way of balloon expansion. Maximum pressure: 12 rachael. Inflation time: 10 sec. Stent: Drug-eluting stent was successfully placed. The stent used was a STENT CORONARY FRONTIER MANJIT RX 3.00MM X 12MM. Stent was deployed by way of balloon expansion. Maximum pressure: 12 rachael. Inflation time: 10 sec. Angioplasty: Angioplasty using noncompliant was performed following stent deployment. The balloon used was a CATHETER BALLOON EMERGE MR 3.5X15MM. Maximum pressure: 18 rachael. Inflation time: 10 sec. Post-Intervention Lesion Assessment: The intervention was successful. There were no complications. There is a 0% residual stenosis post intervention. Hemodynamic Data Pressures Phase: Resting Aortic AO: 151/63 (103) mmHg Miguel Lamb MD CV CARDIAC CATH PROCEDURES Sheyla l Result * (ABNORMAL) POCT ACT (08/30/2024 5:11 PM EDT) ACT (Low Range) >400(H) 65 - 400 seconds 09/03/2024 5:07 PM EDT [facility] Construction And Maintenance Inspector ID Omar Rivas 09/03/2024 5:07 PM EDT [facility] [place] [id number] 09/03/2024 5:07 PM EDT [facility] Comment 09/03/2024 5:07 PM EDT [facility] Comment: ACT performed by staff at point of care. Results are reported immediately to the physician or primary caregiver. The activated clotting time is performed on patients with diverse clinical characteristics and treatment histories. Therefore, expected values are variable and results must be interpreted in the context of each individual patient. Whole Blood Venous blood specimen / Unknown 08/30/2024 5:11 PM EDT 09/03/2024 5:07 PM EDT Miguel Lamb MD LAB POINT OF CARE TE ST DOCKED DEVICE UNSOLICITED RESULTS Final Result [facility] [address] [facility] [address] [place] [address] * POCT ACT (08/30/2024 4:28 PM EDT) ACT (Low Range) 210 65 - 400 seconds 09/03/2024 5:07 PM EDT HEALTHCARE LAB Construction And Maintenance Inspector ID Omar Rivas 09/03/2024 5:07 PM EDT [facility] [place] [id number] 09/03/2024 5:07 PM EDT [facility] LAB Comment 09/03/2024 5:07 PM EDT [facility] Comment: ACT performed by staff at point of care. Results are reported immediately to the physician or primary caregiver. The activated clotting time is performed on patients with diverse clinical characteristics and treatment histories. Therefore, expected values are variable and results must be interpreted in the context of each individual patient. Whole Blood Venous blood specimen / Unknown 08/30/2024 4:28 PM EDT 09/03/2024 5:07 PM EDT Miguel Lamb MD LAB POINT OF CARE TE ST DOCKED DEVICE UNSOLICITED RESULTS Final Result [facility] [address] LAB [address] [place] [address] * POCT ACT (08/30/2024 3:38 PM EDT) ACT (Low Range) 390 65 - 400 seconds 09/03/2024 5:07 PM EDT [facility]ALTHCARE LAB Construction And Maintenance Inspector ID Omar Rivas 09/03/2024 5:07 PM EDT [place]ALTHCARE [place] [id number] 09/03/2024 5:07 PM EDT [facility] Comment 09/03/2024 5:07 PM EDT [facility] Comment: ACT performed by staff at point of care. Results are reported immediately to the physician or primary caregiver. The activated clotting time is performed on patients with diverse clinical characteristics and treatment histories. Therefore, expected values are variable and results must be interpreted in the context of each individual patient. Whole Blood Venous blood specimen / Unknown 08/30/2024 3:38 PM EDT 09/03/2024 5:07 PM EDT Miguel Lamb MD LAB POINT OF CARE TE ST DOCKED DEVICE UNSOLICITED RESULTS Final Result Performing Organization Address [facility] de Phone Number [facility] [address] LAB [address] [place] [address] * (ABNORMAL) POCT ACT (08/30/2024 3:31 PM EDT) ACT (Low Range) >400(H) 65 - 400 seconds 09/03/2024 5:07 PM EDT [facility] LAB Construction And Maintenance Inspector ID Omar Rivas 09/03/2024 5:07 PM EDT HEALTHCARE [place] [id number] 09/03/2024 5:07 PM EDT [facility] Comment 09/03/2024 5:07 PM EDT [facility] Comment: ACT performed by staff at point of care. Results are reported immediately to the physician or primary caregiver. The activated clotting time is performed on patients with diverse clinical characteristics and treatment histories. Therefore, expected values are variable and results must be interpreted in the context of each individual patient. Whole Blood Venous blood specimen / Unknown 08/30/2024 3:31 PM EDT 09/03/2024 5:07 PM EDT Miguel Lamb MD LAB POINT OF CARE TE ST DOCKED DEVICE UNSOLICITED RESULTS Final Result Performing Organization Address [facility] Co de Phone Number [facility]ALTH[facility]ARE LAB [address] [place] [address] [place] [address] * POCT creatinine (08/30/2024 1:45 PM EDT) Creatinine, Point of Care 1.1 0.6 - 1.1 mg/dL 08/30/2024 1:49 PM EDT [facility]ALTH[facility] LAB POCT eGFR 54 mL/min/1. 73m*2 08/30/2024 1:49 PM EDT [facility]ALTH[facility]ARE LAB Construction And Maintenance Inspector ID SagarissCasie blake 08/30/2024 1:49 PM EDT HEALTHCARE LAB Device ID [id number] 08/30/2024 1:49 PM EDT [facility] Comment 08/30/2024 1:49 PM EDT [facility] Comment:Testing performed on i-STAT at the point of care. Reported eGFRcr in mL/min/1.73m2 is based the CKD-EPI 2020 equation that does not use a race coefficient. Blood Venous blood specimen / Unknown 08/30/2024 1:45 PM EDT 08/30/2024 1:49 PM EDT us Miguel Lamb MD LAB POINT OF CARE TE ST DOCKED DEVICE UNSOLICITED RESULTS Final Result [facility] [address] LAB [address] [place] [address] * (ABNORMAL) Basic metabolic panel (08/30/2024 1:39 PM EDT) Glucose, Plasma 138(H) 74 - 99 mg/dL 08/30/2024 3:02 PM EDT [facility] BUN, Plasma 16 8 - 23 mg/dL 08/30/2024 3:02 PM EDT [facility] Creatinine, Plasma 0.96 0.60 - 1.10 mg/dL 08/30/2024 3:02 PM EDT [facility] BUN/Creatinine Ratio 17 08/30/2024 3:02 PM EDT [facility] Sodium, Plasma 138 136 - 145 mmol/L 08/30/2024 3:02 PM EDT [facility] Potassium, Plasma 4.3 3.6 - 4.9 mmol/L 08/30/2024 3:02 PM EDT [facility] Chloride, Plasma 101 97 - 107 mmol/L 08/30/2024 3:02 PM EDT [facility] CO2, Plasma 20(L) 22 - 29 mmol/L 08/30/2024 3:02 PM EDT [facility] Anion Gap 17(H) 6 - 16 mmol/L 08/30/2024 3:02 PM EDT [facility] Total Calcium, Plasma 9.5 8.9 - 10.2 mg/dL 08/30/2024 3:02 PM EDT [facility] eGFRcr 63.4 mL/min/1.7 3m*2 08/30/2024 3:02 PM EDT [facility] Comment:Reported eGFRcr in m L/min/1.73m2 is based the CKD-EPI 2020 equation that does not use a race coefficient. Blood Venous blood specimen / Unknown Venipuncture / Unknown 08/30/2024 1:39 PM EDT 08/30/2024 2:32 PM EDT us Miguel Lamb MD LAB BLOOD ORDERABLES Final Resu lt [facility] [address] [place] [address] * (ABNORMAL) Hemogram (CBC) (08/30/2024 1:39 PM EDT) WBC Count 10.06 3.70 - 10.30 10*3/uL LAB HEMATOLOGY METHOD 08/30/2024 3:11 PM EDT [facility] RBC Count 3.10(L) 3.90 - 5.20 10*6/uL LAB HEMATOLOGY METHOD 08/30/2024 3:11 PM EDT [facility] HGB 8.8(L) 11.2 - 15.7 g/dL LAB HEMATOLOGY METHOD 08/30/2024 3:11 PM EDT [facility] HCT 28.9(L) 34.0 - 45.0 % LAB HEMATOLOGY METHOD 08/30/2024 3:11 PM EDT [facility] Platelet Count 284 155 - 369 10*3/uL LAB HEMATOLOGY METHOD 08/30/2024 3:11 PM EDT [facility] MCV 93 79 - 98 fL LAB HEMATOLOGY METHOD 08/30/2024 3:11 PM EDT [facility] MCH 28.4 26.0 - 32.0 pg LAB HEMATOLOGY METHOD 08/30/2024 3:11 PM EDT [facility] MCHC 30.4(L) 30.7 - 35.5 g/dL LAB HEMATOLOGY METHOD 08/30/2024 3:11 PM EDT [facility] RDW 14.8(H) 11.5 - 14.5 % LAB HEMATOLOGY METHOD 08/30/2024 3:11 PM EDT [facility] MPV 10.3 8.8 - 12.5 fL LAB HEMATOLOGY METHOD 08/30/2024 3:11 PM EDT [facility] nRBC 0.0 <=0.0 per 100 WBCs LAB HEMATOLOGY METHOD 08/30/2024 3:11 PM EDT [facility] Blood Venous blood specimen / Unknown Venipuncture / Unknown 08/30/2024 1:39 PM EDT 08/30/2024 3:03 PM EDT us Miguel Lamb MD LAB BLOOD ORDERABLES Final Resu lt [facility] [address] [place] [address] documented in this encounter Visit Diagnoses Diagnosis Nonrheumatic aortic valve stenosis- Primary S/P coronary artery stent placement Postsurgical percutaneous transluminal coronary angioplasty status Coronary artery disease Coronary atherosclerosis of unspecified type of vessel, [place] or graft Severe obesity (BMI 35.0-39.9) with comorbidity (CMS/HCC) Nonrheumatic aortic valve stenosis documented in this encounter Admitting Diagnoses Diagnosis Nonrheumatic aortic valve stenosis S/P coronary artery stent placement Postsurgical percutaneous transluminal coronary angioplasty status documented in this encounter Administered Medications Inactive Administered Medications - up to 3 most recent administrations Medication Order MAR Action Action Date Dose Rate Site acetaminophen (Tylenol) tablet 650 mg 650 mg, Oral, Every 4 hours PRN, Starting on Tue08/30/24 at 1801, Until Tue08/31/24 at 1548, Routine, Recovery(Phase II-Outpatient)/On Unit(Inpatient), mild pain, fever aspirin chewable tablet 81 mg 81 mg, Oral, Once, 1 dose, On Luz Elena 08/30/24 at 1515, Routine Given 08/30/2024 2:29 PM EDT 81 mg aspirin chewable tablet 81 mg 81 mg, Oral, Daily, First dose (after last modification) on Tue08/31/24 at 0900, Until Discontinued Given 08/31/2024 9:57 AM EDT 81 mg baclofen (Lioresal) tablet 10 mg 10 mg, Oral, 3 times daily, First dose on Tue08/30/24 at 2100, Until Discontinued, Routine Given 08/31/2024 9:57 AM EDT 10 mg Given 08/30/2024 8:11 PM EDT 10 mg cetirizine (ZyrTEC) tablet 10 mg 10 mg, Oral, Daily, First dose on Tue08/31/24 at 0900, Until Discontinued, Routine Given 08/31/2024 9:57 AM EDT 10 mg clopidogrel (Plavix) tablet 75 mg 75 mg, Oral, Daily, First dose on Tue08/31/24 at 0900, Until Discontinued, Routine Given 08/31/2024 9:57 AM EDT 75 mg diazePAM (Valium) tablet 5 mg 5 mg, Oral, 2 times daily, First dose on Tue08/30/24 at 2100, Until Discontinued, Routine Given 08/31/2024 9:57 AM EDT 5 mg Given 08/30/2024 8:11 PM EDT 5 mg famotidine (Pepcid) tablet 20 mg 20 mg, Oral, 2 times daily, First dose on Tue08/30/24 at 2100, Until Discontinued, Routine Given 08/31/2024 9:57 AM EDT 20 mg Given 08/30/2024 8:12 PM EDT 20 mg furosemide (Lasix) tablet 20 mg 20 mg, Oral, Daily, First dose on Tue08/31/24 at 0900, Until Discontinued, Routine Given 08/31/2024 9:57 AM EDT 20 mg HYDROcodone-acetaminophen ([place]) 5-325 MG per tablet 5 mg of hydrocodone 5 mg of hydrocodone, Oral, Every 6 hours PRN, Starting on Tue08/30/24 at 1822, Until Tue08/31/24 at 1548, Routine, moderate pain levothyroxine (Synthroid, Levoxyl) tablet 50 mcg 50 mcg, Oral, Daily before breakfast, First dose on Tue08/31/24 at 0730, Until Discontinued, Routine Given 08/31/2024 6:48 AM EDT 50 mcg lisinopril tablet 10 mg 10 mg, Oral, Nightly, First dose (after last modification) on Tue08/30/24 at 2100, Until Discontinued, Routine Given 08/30/2024 8:11 PM EDT 10 mg methylPREDNISolone sodium succinate (PF) (SOLU-Medrol) injection 125 mg 125 mg, Intravenous, Once, 1 dose, On Luz Elena 08/30/24 at 1530, Routine Given 08/30/2024 2:40 PM EDT 125 mg metoprolol succinate XL (Toprol-XL) 24 hr tablet 75 mg 75 mg, Oral, Nightly, First dose (after last modification) on Tue08/31/24 at 2100, Until Discontinued, Routine pantoprazole (Protonix) EC tablet 40 mg 40 mg, Oral, Daily before breakfast, First dose on Tue08/31/24 at 0730, Until Discontinued Given 08/31/2024 6:48 AM EDT 40 mg documented in this encounter Active and Recently Administered Medications Times are shown in EDT. Scheduled Medication Order 08/29/2024 08/30/2024 08/31/2024 aspirin chewable tablet 81 mg (COMPLETED) 81 mg, Oral, Once, 1 dose, On Luz Elena 08/30/24 at 1515, Routine 1429 (Given - Provider: Madison Lopez RN) aspirin chewable tablet 81 mg 81 mg, Oral, Daily, First dose (after last modification) on Tue08/31/24 at 0900, Until Discontinued 956 (Given - Provid er: Lianet Chawla RN) baclofen (Lioresal) tablet 10 mg 10 mg, Oral, 3 times daily, First dose on Tue08/30/24 at 2100, Until Discontinued, Routine 2010 (Given - Provider: Artur Lara RN) 956 (Given - Provider: Lianet Chawla RN) cetirizine (ZyrTEC) tablet 10 mg 10 mg, Oral, Daily, First dose on Tue08/31/24 at 0900, Until Discontinued, Routine 956 (Given - Provid er: Lianet Chawla RN) clopidogrel (Plavix) tablet 75 mg 75 mg, Oral, Daily, First dose on Tue08/31/24 at 0900, Until Discontinued, Routine 956 (Given - Provid er: Lianet Chawla RN) diazePAM (Valium) tablet 5 mg 5 mg, Oral, 2 times daily, First dose on Luz Elena 08/30/24 at 2100, Until Discontinued, Routine 2010 (Given - Provider: Artur Lara RN) 956 (Given - Provider: Lianet Chawla RN) famotidine (Pepcid) tablet 20 mg 20 mg, Oral, 2 times daily, First dose on Luz Elena 08/30/24 at 2100, Until Discontinued, Routine 2011 (Given - Provider: Artur Lara RN) 956 (Given - Provider: Lianet Chawla RN) furosemide (Lasix) tablet 20 mg 20 mg, Oral, Daily, First dose on Tue08/31/24 at 0900, Until Discontinued, Routine 956 (Given - Provid er: Lianet Chawla RN) levothyroxine (Synthroid, Levoxyl) tablet 50 mcg 50 mcg, Oral, Daily before breakfast, First dose on Tue08/31/24 at 0730, Until Discontinued, Routine 647 (Given - Provid er: Artur Lara RN) lisinopril tablet 10 mg 10 mg, Oral, Nightly, First dose (after last modification) on Luz Elena 08/30/24 at 2100, Until Discontinued, Routine 2010 (Given - Provider: Artur Lara RN) methylPREDNISolone sodium succinate (PF) (SOLU-Medrol) injection 125 mg (COMPLETED) 125 mg, Intravenous, Once, 1 dose, On Luz Elena 08/30/24 at 1530, Routine 1440 (Given - Provider: Madison Lopez RN) metoprolol succinate XL (Toprol-XL) 24 hr tablet 75 mg 75 mg, Oral, Nightly, First dose (after last modification) on Tue08/31/24 at 2100, Until Discontinued, Routine montelukast (Singulair) tablet 10 mg 10 mg, Oral, Nightly, First dose on Tue08/31/24 at 2100, Until Discontinued, Routine pantoprazole (Protonix) EC tablet 40 mg 40 mg, Oral, Daily before breakfast, First dose on Tue08/31/24 at 0730, Until Discontinued 0648 (Given - Provid er: Artur Lara RN) PRN Medication Order 08/29/2024 08/30/2024 08/31/2024 acetaminophen (Tylenol) tablet 650 mg 650 mg, Oral, Every 4 hours PRN, Starting on Luz Elena 08/30/24 at 1801, Until Tue08/31/24 at 1548, Routine, Recovery(Phase II-Outpatient)/On Unit(Inpatient), mild pain, fever fentaNYL (Sublimaze) injection (CANCELED) As needed, Starting on Luz Elena 08/30/24 at 1500, Until Luz Elena 5 at 1749, Routine, Intraprocedure 1500 (Given - Provider: Omar Rivas RN)1506 (Given - Provider: Omar Rivas RN)1523 (Given - Provider: Omar Rivas RN)1613 (Given - Provider: Omar Rivas RN) heparin (porcine) injection (CANCELED) As needed, Starting on Luz Elena 08/30/24 at 1515, Until Luz Elena 5 at 1749, Routine, Intraprocedure 1515 (Given - Provider: Omar Rivas RN)1631 (Given - Provider: Omar Rivas RN) HYDROcodone-acetaminophen ([place]) 5-325 MG per tablet 5 mg of hydrocodone 5 mg of hydrocodone, Oral, Every 6 hours PRN, Starting on Luz Elena 08/30/24 at 1822, Until 08/31/24 at 1548, Routine, moderate pain iohexol (OMNIPaque) 240 MG/ML injection (CANCELED) As needed, Starting on Luz Elena 08/30/24 at 1732, Until Luz Elena 5 at 1749, Routine, Intraprocedure 1732 (Given - Provider: Miguel Lamb MD) labetalol (Normodyne,Trandate) injection (CANCELED) As needed, Starting on Luz Elena 08/30/24 at 1535, Until Luz Elena 5 at 1749, Routine, Intraprocedure 1535 (Given - Provider: Omar Rivas RN)1541 (Given - Provider: Omar Rivas RN) lidocaine (Xylocaine) 1 % injection (CANCELED) As needed, Starting on Luz Elena 08/30/24 at 1510, Until Luz Elena 5 at 1749, Routine, Intraprocedure 1510 (Given - Provider: Valerie Duke DO) midazolam (Versed) injection (CANCELED) As needed, Starting on Luz Elena 08/30/24 at 1500, Until Luz Elena 525 at 1749, Routine, Intraprocedure 1500 (Given - Provider: Omar Rivas RN)1506 (Given - Provider: Oamr Rivas RN)1514 (Given - Provider: Omar Rivas, RN) nitroglycerin (Nitrostat) SL tablet 0.4 mg 0.4 mg, Sublingual, Every 5 min PRN, Starting on Luz Elena 08/30/24 at 1719, Until 08/31/24 at 1548, Routine, chest pain documented in this encounter Additional Health Concerns Assessment Noted Time PHQ-9 Depression Total Score: 0 07/21/19 11:35 AM EDT A fall risk assessment has been complete d for the patient 08/15/2024 10:46 AM EDT A Body Mass Index follow-up plan has been documented for the patient 08/31/2024 12:22 PM EDT documented as of this encounter Care Teams Dial Marker Relationship Specialty Start Date End Date Mustapha James MD [address] [place] [id number] PCP - General 09/05/20 Miguel Lamb MD [address] [place] [phone] Referring Physician Interventional Cardiology 08/16/24 documented as of this encounter
--- OUTSIDE RECORDS SUMMARY | 2024-08-30 14:20 | XMS_ITS | Encounter Summary ---
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 Name Role Phone Mustapha James MD Primary Care Provider [phone] Miguel Lamb MD Unavailable [phone] Reason for Visit * Auth/Cert (Routine) Specialty Diagnoses / Procedures Referred By Contac t Referred To Contact Diagnoses Nonrheumatic aortic valve stenosis Nonrheumatic aortic valve stenosis [I35.0] Procedures UT PRQ TRLUML CORONARY STENT W/ANGIO ONE ART/BRNCH Percutaneous coronary intervention Miguel Lamb MD [address] [place] [address] Phone: tel: fax: Cardiac Group Captain [address] [place] [address] Phone: tel: Referral ID Status Reason Start Date Expiration Date Visits Re quested Visits Authorized [id number] 1 1 Encounter Details Date Type Department Care Team (Late st Contact Info) Description 08/30/2024 2:20 PM EDT - 08/30/2024 4:20 PM EDT Surgery Cardiac Group Captain [address] [place] [address] Miguel Lamb MD [address] [place] [address] Percutaneous coronary intervention [34296 (CPT )] Surgery Details Date/Time Status Location OR Service Patient Class Case Class Case Type Trauma Case? 08/30/2024 2:20 PM Posted JULIETA COPY MESSENGER CH COPY MESSENGER 03 Cardiovascular [facility] Outpatient Surgery E-Elect marija Panel 1 Procedure LRB Anes Op Region Wound Class Comments Percutaneous coronary intervention N/A Surgeon Surgeon Role Service Panel Valerie Duke DO Cardiovascular 1 Miguel Lamb MD Primary Cardiovascular 1 documented in [...] or problems. Call the [facility] at [phone] if your incision is red, warm or [...] time do not work, call the Cardiac Group Captain at They will deliver a Rolator walker [...] tablet by mouth daily. 07/24/2019 HYDROcodone-acet aminophen ([place]) 7.5-325 MG tablet Take 1 tablet by [...] Note Jodi Byrne 69 y.o. female CSN: [id number] Admission: 08/30/2024 1:09 PM Primary Problem: Nonrheumatic aortic valve stenosis Anticipated Discharge Date: today Additional Comments: Rollator referral sent to [employer]. Will be delivered to patients home. Coco Gamez RN * Lianet Durand RN - 08/31/2024 12:22 PM EDT Images from the original note were not included. [id number] Clopidogrel Brand Name(s): Plavix??; also available generically [...] doctor or pharmacist will give you the print line supervisor's patient information sheet (Medication Guide) when you begin treatment with clopidogrel and each time you refill your prescription. Read the information carefully and ask your doctor or pharmacist if you have any questions. You can also visit the Food and Drug Administration (FDA) website (https://www.fda.gov/Drugs/DrugSafety/yqx476111.htm) or the print line supervisor's website to obtain the Medication Guide. Talk [...] and out of their sight and reach. https://[facility] What should I do in case of [...] of all of the prescription and nonprescription (fwpg-znu-wrupuzi) medicines you are taking, as well as [...] or pharmacist about specific clinical use. The [place] [employer] represents that the information provided hereunder was formulated with a reasonable standard of care, and in conformity with professional standards in the field. The [place] [employer] makes no representations or warranties, express or implied, including, but not limited to, any implied warranty of merchantability and/or fitness for a particular purpose, with respect to such information and specifically disclaims all such warranties. Users are advised that decisions regarding drug therapy are complex medical decisions requiring the independent, informed decision of an appropriate health insurance healthcare representative, and the information is provided for informational purposes only. The entire monograph for a drug should be reviewed for a thorough understanding of the drug's actions, uses and side effects. The [place] [employer] does not endorse or recommend the use of any drug.The information is not a substitute for medical care. AHFS?? Patient Medication Information?. ?? Copyright, 2023. The [place]??, [address], [address], [place], [place]. All Rights Reserved. Duplication for commercial use must be authorized by [facility]. Selected Revisions: October 13, 2023. AHFS?? [...] - 08/31/2024 12:19 PM EDT Call the [facility] at [phone] if your incision is red, warm or [...] doctor before taking any other medicine, including gutq-dcn-hwvjihh medicines (for example aspirin), vitamins, herbals, or [...] from the original note were not included. [id number] Diphenhydramine Brand Name(s): Aler-Dryl??, Allergia-C?, Allermax?, Altaryl?, [...] be awakened, immediately call emergency services at [phone]. What OTHER INFORMATION should I know? Ask your pharmacist any questions you have about diphenhydramine. It is important for you to keep a written list of all of the prescription and nonprescription (krfv-rmh-lvluacz) medicines you are taking, as well as [...] or pharmacist about specific clinical use. The [place] represents that the information provided hereunder was formulated with a reasonable standard of care, and in conformity with professional standards in the field. The [place] [employer] makes no representations or warranties, express or implied, including, but not limited to, any implied warranty of merchantability and/or fitness for a particular purpose, with respect to such information and specifically disclaims all such warranties. Users are advised that decisions regarding drug therapy are complex medical decisions requiring the independent, informed decision of an appropriate health insurance healthcare representative, and the information is provided for informational purposes only. The entire monograph for a drug should be reviewed for a thorough understanding of the drug's actions, uses and side effects. The [place] does not endorse or recommend the use of any drug.The information is not a substitute for medical care. AHFS?? Patient Medication Information?. ?? Copyright, 2023. The [employer] [place]??, [address], [address], [place], [place]. All Rights Reserved. Duplication for commercial use must be authorized by [facility]. Selected Revisions: May 09, 2021. AHFS?? Patient Medication Information?. ?? Copyright, 2024 * Trace [facility] - Lianet Chawla RN - 08/31/2024 11:49 AM EDT Images from the original note were not included. [id number] Discharge Instructions for Cardiac Catheterization Cardiac catheterization [...] pressure. Last Reviewed Date: 2024 00:00:00 ?? [id number] [employer]. All rights reserved. This information is not intended as a substitute for professional medical care. Always follow your healthcare professional's instructions. * Trace Pierre - Lianet Chawla RN - 08/31/2024 11:49 AM EDT Images from the original note were not included. [id number] Having Cardiac Catheterization You may have had [...] health care team about all prescription medicines, tftd-gea-pokimvg medicines, vitamins, and supplements you take and [...] firmly. Last Reviewed Date: 2024 00:00:00 ?? 5034-1794 [employer]. All rights reserved. This information is not intended as a substitute for professional medical care. Always follow your healthcare professional's instructions. * [facility] - Liaent Chawla RN - 08/31/2024 11:49 AM EDT Images from the original note were not included. 36269 Understanding Transcatheter Aortic Valve Replacement (TAVR) Transcatheter [...] program. Last Reviewed Date: 2024 00:00:00 ?? [id number] [employer]. All rights reserved. This information is not intended as a substitute for professional medical care. Always follow your healthcare professional's instructions. * Trace [facility] - Lianet Chawla RN - 08/31/2024 11:49 AM EDT Images from the original note were not included. 92199 Heart Valve Problems: Aortic Stenosis Aortic stenosis [...] symptoms. Last Reviewed Date: 2023 00:00:00 ?? [id number] [employer]. All rights reserved. This information is not [...] PCP name and Address: Mustapha James MD [address] [place] [id number] Chief Concern, Brief History of Present Illness, [...] stents to bilateral iliac arteries 12/2021 - [facility] 06/2424 ([place]): LM ostial calcified eccentric 90% stenosis in the distal eccentric 40% stenosis. Proximal LAD stent widely patent with minimal In- Stent restenosis in the 70-80% stenosis justdistal to the stent in the [place] LAD. The remaining LAD is widely patent. [...] right femoral with perclose (08/30/24, Dr. Lamb, [facility]) - Continue DAPT with ASA and plavix [...] metal stent #Aortic stenosis - TTE 05/2024 ([facility]) with EF 55%, low-flow, low-gradient - [...] - 1.1 mg/dL POCT eGFR 54 mL/min/1.73m*2 Artists' Booking Representative ID TeofilobertaCasie barra[place] ID [id number] Comment Basic Metabolic Panel, Plasma Collection Time: [...] HYDROcodone-acetaminophen 7.5-325 MG tablet Commonly known as: [place] Take 1 tablet by mouth every 8 [...] Ellipta 100-62.5-25 MCG/ACT aerosol powder Generic drug: Fzurbbuqgmb-Mgroionko-Rdfxmh Inhale. VITAMIN D (CHOLECALCIFEROL) PO Take by mouth. Where to Get Your Medications These medications were sent to [facility], [place] - [address], [facility] [id number] clopidogrel 75 MG tablet diphenhydrAMINE 50 MG [...] signs of infection or problems. Call the [facility] at [phone] if your incision is red, warm or [...] time do not work, call the Cardiac Group Captain at They will deliver a Rolator walker to your house. Outpatient Follow-Up Staged PCI to RCA 09/18/24 Discharge Disposition/Condition Disposition: Home Condition: Stable (s/sx potential problems absent or manageable) I spent > 30min working on this discharge including performing physical examination, review of laboratory/imaging results with the patient, discussion of medication management, and preparation of discharge paperwork. Zuly Gaspar APRN [phone] Cosigned by Miguel Lamb MD at 08/31/2024 [...] stents to bilateral iliac arteries 12/2021 - [facility] 06/2424 ([facility]): LM ostial calcified eccentric 90% stenosis in the distal eccentric 40% stenosis. Proximal LAD stent widely patent with minimal In- Stent restenosis in the 70-80% stenosis justdistal to the stent in the [place] LAD. The remaining LAD is widely patent. [...] right femoral with perclose (08/30/24, Dr. Lamb, [facility]) - Continue DAPT with ASA and plavix [...] metal stent #Aortic stenosis - TTE 05/2024 ([facility]) with EF 55%, low-flow, low-gradient - [...] been discussed with the patient and/or their direct sales representative. All questions answered and they agree [...] MD Fellow, Department of Cardiovascular Medicine Pager: [phone] [1] Past Medical History: Diagnosis Date COPD (chronic obstructive pulmonary disease) (CMS/HCC) HLD (hyperlipidemia) HTN (hypertension) Lung cancer (CMS/[facility]) Seasonal allergies [2] Past Surgical History: Procedure [...] PM EDT Appointment Cardiac Imaging [address] [place] [address] 01/04/2025 3:30 PM EDT Office Visit [facility] [address] [place] [address] Miguel Lamb MD [address] [place] [address] documented as of this encounter [...] - 899 pg/mL 08/31/2024 5:38 AM EDT [facility] Blood Venous blood specimen / Unknown Venipuncture / Unknown 08/31/2024 3:59 AM EDT 08/31/2024 4:36 AM EDT Zuly Gaspar APRN LAB BLOOD ORDERABLES Final R esult Performing Organization Address City/[facility]/ZIP Co de Phone Number [facility] [address] [place] [address] * Magnesium, Plasma (08/31/2024 3:59 AM EDT) [facility] Magnesium, Plasma 2.2 1.9 - 2.4 mg/dL 08/31/2024 5:38 AM EDT [facility] Blood Venous blood specimen / Unknown Venipuncture / Unknown 08/31/2024 3:59 AM EDT 08/31/2024 4:36 AM EDT Zuly Gaspar APRN LAB BLOOD ORDERABLES Final R esult Performing Organization Address City/[facility]/[place] [address] * (ABNORMAL) CBC W/O Differential (08/31/2024 3:59 AM EDT) [facility] WBC Count 16.14(H) 3.70 - 10.30 10*3/uL LAB HEMATOLOGY METHOD 08/31/2024 4:45 AM EDT [facility] RBC Count 2.68(L) 3.90 - 5.20 10*6/uL LAB HEMATOLOGY METHOD 08/31/2024 4:45 AM EDT [facility] HGB 7.9(L) 11.2 - 15.7 g/dL LAB HEMATOLOGY METHOD 08/31/2024 4:45 AM EDT [facility] HCT 25.6(L) 34.0 - 45.0 % LAB HEMATOLOGY METHOD 08/31/2024 4:45 AM EDT [facility] Platelet Count 277 155 - 369 10*3/uL LAB HEMATOLOGY METHOD 08/31/2024 4:45 AM EDT [facility] MCV 96 79 - 98 fL LAB HEMATOLOGY METHOD 08/31/2024 4:45 AM EDT [facility] MCH 29.5 26.0 - 32.0 pg LAB HEMATOLOGY METHOD 08/31/2024 4:45 AM EDT [facility] MCHC 30.9 30.7 - 35.5 g/dL LAB HEMATOLOGY METHOD 08/31/2024 4:45 AM EDT [facility] RDW 15.0(H) 11.5 - 14.5 % LAB HEMATOLOGY METHOD 08/31/2024 4:45 AM EDT [facility] MPV 10.3 8.8 - 12.5 fL LAB HEMATOLOGY METHOD 08/31/2024 4:45 AM EDT [facility] nRBC 0.0 <=0.0 per 100 WBCs LAB HEMATOLOGY METHOD 08/31/2024 4:45 AM EDT [facility] Blood Venous blood specimen / Unknown Venipuncture / Unknown 08/31/2024 3:59 AM EDT 08/31/2024 4:29 AM EDT us Zuly Gaspar APRN LAB BLOOD ORDERABLES Final R esult [facility] [address] [place] [address] * (ABNORMAL) Basic Metabolic Panel, Plasma (08/31/2024 3:59 AM EDT) Glucose, Plasma 146(H) 74 - 99 mg/dL 08/31/2024 5:38 AM EDT [facility] BUN, Plasma 22 8 - 23 mg/dL 08/31/2024 5:38 AM EDT [facility] Creatinine, Plasma 1.36(H) 0.60 - 1.10 mg/dL 08/31/2024 5:38 AM EDT [facility] BUN/Creatinine Ratio 16 08/31/2024 5:38 AM EDT [facility] Sodium, Plasma 138 136 - 145 mmol/L 08/31/2024 5:38 AM EDT [facility] Potassium, Plasma 4.5 3.6 - 4.9 mmol/L 08/31/2024 5:38 AM EDT [facility] Chloride, Plasma 102 97 - 107 mmol/L 08/31/2024 5:38 AM EDT [facility] CO2, Plasma 20(L) 22 - 29 mmol/L 08/31/2024 5:38 AM EDT [facility] Anion Gap 16 6 - 16 mmol/L 08/31/2024 5:38 AM EDT [facility] Total Calcium, Plasma 9.1 8.9 - 10.2 mg/dL 08/31/2024 5:38 AM EDT [facility] eGFRcr 41.7 mL/min/1.7 3m*2 08/31/2024 5:38 AM EDT [facility] Comment:Reported eGFRcr in m L/min/1.73m2 is based the CKD-EPI 2020 equation that does not use a race coefficient. Blood Venous blood specimen / Unknown Venipuncture / Unknown 08/31/2024 3:59 AM EDT 08/31/2024 4:36 AM EDT us Zuly Gaspar [employer] LAB BLOOD ORDERABLES Final R esult [facility] [address] [place] [address] * ECG Adult (08/30/2024 6:02 PM EDT) EKG DIAGNOSIS CLASS Abnormal MUSE ECG Ventricular Rate 99 BPM MUSE ECG Atrial Rate 99 BPM MUSE ECG UT Interval 142 ms MUSE ECG QRSD Interval 86 ms MUSE ECG QT Interval 368 ms MUSE ECG QTC Interval 472 ms MUSE ECG P Pyote 66 degrees MUSE ECG R Pyote 16 degrees MUSE ECG T Wave Pyote 59 degrees MUSE ECG Diagnosis Normal sinus [...] placement of a 4.5 x 15 mm [place] Manjit drug-eluting stent (overlapping with previously placed stent distally and 1-2 mm of stent extending in the aorta) 2. 70% heavily calcified distal left main severe in-stent re-stenosis s/p balloon angioplasty with a 3.5 NC balloon 3. 90% ostial RCA stenosis s/p successful PCI with placement of a 3.0 x 12 mm and 3.0 x 18 mm [place] Manjit drug-eluting stent. Proximal-mid stent post-dilated to [...] to direct stent. We then advanced a [place] Manjit 4.5 x 12 mm drug-eluting stent [...] 12 mm and 3.0 x 18 mm [place] Manjit drug eluting stents in the proximal [...] The patient was transferred back to the medical laboratory technical officer holding area in good condition. Coronary Findings [...] seconds 09/03/2024 5:07 PM EDT [facility] Artists' Booking Representative ID Omar Rivas 09/03/2024 5:07 PM EDT [facility]ALTH[facility]ARE [place] [id number] 09/03/2024 5:07 PM EDT [facility] Comment 09/03/2024 5:07 PM EDT [facility] Comment: ACT performed by staff [...] UNSOLICITED RESULTS Final Result [facility] [address] [facility] [address] [place] [address] * POCT ACT (08/30/2024 4:28 PM EDT) ACT (Low Range) 210 65 - 400 seconds 09/03/2024 5:07 PM EDT [facility] Artists' Booking Representative ID Omar Rivas 09/03/2024 5:07 PM EDT [facility] [place] [id number] 09/03/2024 5:07 PM EDT [facility] Comment 09/03/2024 5:07 PM EDT [facility] Comment: ACT performed by [...] UNSOLICITED RESULTS Final Result Performing Organization Address [facility] Co de Phone Number [facility] [address] LAB [address] [place] [address] * POCT ACT (08/30/2024 3:38 PM EDT) [facility] ACT (Low Range) 390 65 - 400 seconds 09/03/2024 5:07 PM EDT [facility] Artists' Booking Representative ID Omar Rivas 09/03/2024 5:07 PM EDT [facility] [place] [id number] 09/03/2024 5:07 PM EDT [facility] Comment 09/03/2024 5:07 PM EDT [facility] Comment: ACT performed by [...] UNSOLICITED RESULTS Final Result Performing Organization Address City/[facility]/ZIP Co de Phone Number [facility] [address] LAB [address] [place] [address] * (ABNORMAL) POCT ACT (08/30/2024 3:31 PM EDT) ACT (Low Range) >400(H) 65 - 400 seconds 09/03/2024 5:07 PM EDT [facility] Artists' Booking Representative ID Omar Rivas 09/03/2024 5:07 PM EDT [facility] [place] [id number] 09/03/2024 5:07 PM EDT [facility] Comment 09/03/2024 5:07 PM EDT [facility] Comment: ACT performed by staff [...] ST DOCKED DEVICE UNSOLICITED RESULTS Final Result [facility] [address] [place] [address] * POCT creatinine (08/30/2024 1:45 PM EDT) [facility] Creatinine, Point of Care 1.1 0.6 - 1.1 mg/dL 08/30/2024 1:49 PM EDT [facility] POCT eGFR 54 mL/min/1. 73m*2 08/30/2024 1:49 PM EDT [facility] Artists' Booking Representative ID Casie Hernandez 08/30/2024 1:49 PM EDT [facility] Device ID [id number] 08/30/2024 1:49 PM EDT [facility] Comment 08/30/2024 1:49 PM EDT [facility] Comment:Testing performed on i-STAT at the point of care. Reported eGFRcr in mL/min/1.73m2 is based the CKD-EPI 2020 equation that does not use a race coefficient. Blood Venous blood specimen / Unknown 08/30/2024 1:45 PM EDT 08/30/2024 1:49 PM EDT Miguel Lamb MD LAB POINT OF CARE TE ST DOCKED DEVICE UNSOLICITED RESULTS Final Result [facility] [address] [facility] [address] [place] [address] * (ABNORMAL) Basic metabolic panel (08/30/2024 1:39 PM EDT) Glucose, Plasma 138(H) 74 - 99 mg/dL 08/30/2024 3:02 PM EDT [facility] BUN, Plasma 16 8 - 23 mg/dL 08/30/2024 3:02 PM EDT [facility] Creatinine, Plasma 0.96 0.60 - 1.10 mg/dL 08/30/2024 3:02 PM EDT [facility] BUN/Creatinine Ratio 17 08/30/2024 3:02 PM EDT [facility] Sodium, Plasma 138 136 - 145 mmol/L 08/30/2024 3:02 PM EDT [facility] Potassium, Plasma 4.3 3.6 - 4.9 mmol/L 08/30/2024 3:02 PM EDT [facility] Chloride, Plasma 101 97 - 107 mmol/L 08/30/2024 3:02 PM EDT [facility] CO2, Plasma 20(L) 22 - 29 mmol/L 08/30/2024 3:02 PM EDT [facility] Anion Gap 17(H) 6 - 16 mmol/L 08/30/2024 3:02 PM EDT [facility] Total Calcium, Plasma 9.5 8.9 - 10.2 mg/dL 08/30/2024 3:02 PM EDT [facility] eGFRcr 63.4 mL/min/1.7 3m*2 08/30/2024 3:02 PM EDT [facility] Comment:Reported eGFRcr in m L/min/1.73m2 is based the CKD-EPI 2020 equation that does not use a race coefficient. Blood Venous blood specimen / Unknown Venipuncture / Unknown 08/30/2024 1:39 PM EDT 08/30/2024 2:32 PM EDT us Miguel Lamb MD LAB BLOOD ORDERABLES Final Resu lt [facility] [address] [place] [address] * (ABNORMAL) Hemogram (CBC) (08/30/2024 1:39 PM EDT) WBC Count 10.06 3.70 - 10.30 10*3/uL LAB HEMATOLOGY METHOD 08/30/2024 3:11 PM EDT [facility] RBC Count 3.10(L) 3.90 - 5.20 10*6/uL LAB HEMATOLOGY METHOD 08/30/2024 3:11 PM EDT [facility] HGB 8.8(L) 11.2 - 15.7 g/dL LAB HEMATOLOGY METHOD 08/30/2024 3:11 PM EDT [facility] HCT 28.9(L) 34.0 - 45.0 % LAB HEMATOLOGY METHOD 08/30/2024 3:11 PM EDT [facility] Platelet Count 284 155 - 369 10*3/uL LAB HEMATOLOGY METHOD 08/30/2024 3:11 PM EDT [facility] MCV 93 79 - 98 fL LAB HEMATOLOGY METHOD 08/30/2024 3:11 PM EDT [facility] MCH 28.4 26.0 - 32.0 pg LAB HEMATOLOGY METHOD 08/30/2024 3:11 PM EDT [facility] MCHC 30.4(L) 30.7 - 35.5 g/dL LAB HEMATOLOGY METHOD 08/30/2024 3:11 PM EDT [facility] RDW 14.8(H) 11.5 - 14.5 % LAB HEMATOLOGY METHOD 08/30/2024 3:11 PM EDT [facility] MPV 10.3 8.8 - 12.5 fL LAB HEMATOLOGY METHOD 08/30/2024 3:11 PM EDT [facility] nRBC 0.0 <=0.0 per 100 WBCs LAB HEMATOLOGY METHOD 08/30/2024 3:11 PM EDT [facility] Blood Venous blood specimen / Unknown Venipuncture / Unknown 08/30/2024 1:39 PM EDT 08/30/2024 3:03 PM EDT us Miguel Lamb MD LAB BLOOD ORDERABLES Final Resu lt [facility] [address] [place] [address] documented in this encounter Visit Diagnoses Diagnosis [...] 08/30/2024 3:15 PM EDT 9,000 Units HYDROcodone-acetaminophen ([place]) 5-325 MG per tablet 5 mg of [...] (Given - Provider: Omar Rivas RN) HYDROcodone-acetaminophen ([place]) 5-325 MG per tablet 5 mg of [...] documented as of this encounter Care Teams Post Tensioning Ironworker Relationship Specialty Start Date End Date Mustapha James MD [address] [place] [address] PCP - General 09/05/20 Miguel Lamb MD [address] [place] [id number] Referring Physician Interventional Cardiology 08/16/24 documented as of this encounter
--- OUTSIDE RECORDS SUMMARY | 2024-09-18 07:17 | XMS_ITS | Encounter Summary ---
Author Organization [facility] Address [address] [id number] Care Team Providers Care Photo Machine Operator Name Role Phone Mustapha James MD Primary Care Provider [phone] Miguel Lamb MD Unavailable [phone] Reason for Visit * Auth/Cert (Routine) Specialty Diagnoses / Procedures Referred By Contac t Referred To Contact Diagnoses S/P coronary artery stent placement S/P coronary artery stent placement [Z95.5] Procedures ME PRQ TRLUML CORONARY STENT W/ANGIO ONE ART/BRNCH Percutaneous coronary intervention Miguel Lamb MD [address] [place] [address] Phone: tel: fax: Cardiac Environmental Construction Engineer [address] [place] [address] Phone: tel: Referral ID Status Reason Start Date Expiration Date Visits Re quested Visits Authorized [id number] 1 1 Encounter Details Date Type Department Care Team (Latest Contact Info) Description 09/18/2024 7:17 AM EDT - 09/18/2024 3:19 PM EDT Hospital Encounter Cardiac Environmental Construction Engineer [address] [place] [address] Miguel Lamb MD [address] [place] [address] S/P coronary artery stent placement [...] tablet by mouth daily. 07/24/2019 HYDROcodone-acet aminophen ([facility]) 7.5-325 MG tablet Take 1 tablet by [...] for chest pain. 30 tablet 11 09/18/2024 VITAMIN D, CHOLECALCIFEROL, PO Take by mouth. documented as of this encounter Miscellaneous Notes [...] from the original note were not included. [id number] Bleeding or Hematoma After Cardiac Catheterization You [...] on the site, and call 911 or [email or web address] take you to the emergency room. In [...] provider. Last Reviewed Date: 2024 00:00:00 ?? [id number] The [employer]. All rights reserved. This information is not [...] been discussed with the patient and/or their passenger service representative. All questions answered and they agree [...] 50 MCG/ACT nasal spray 1 spray, Daily Xhyylzlpfls-Mllayvfaf-Pjbgea (Trelegy Ellipta) 100-62.5-25 MCG/ACT aerosol powder Inhale. furosemide (LASIX) 20 mg, Daily HYDROcodone-acetaminophen ([facility]) 7.5-325 MG tablet 1 tablet, Every 8 [...] Fellow, PGY-6, Department of Cardiovascular Medicine Pager: [phone] [1] Past Medical History: Diagnosis Date COPD [...] PM EDT Appointment Cardiac Imaging [address] [place] [address] 01/04/2025 3:30 PM EDT Office Visit [facility] [place] [facility] [address] [place] [address] Miguel Lamb MD [address] [place] [address] documented as of this encounter Procedures Procedure [...] of an overlapping 3.5 x 12 mm Vernon Manjit drug-eluting stent. Ostium flared to 4.0. 3. Serial 70% diffuse lesions of the mid-distal RCA s/p successful PCI with placement of overlapping 3.0 x 26 mm and 2.75 x 30 mm Vernon Manjit drug-eluting stents (proximal-distal). Recommendations: 1. Post-PCI [...] advanced a 2.75 mm x 30 mm Vernon Manjit drug eluting stent into the lesion and deployed at 12 rachael. We then placed and overlapping 3.0 x 26 mm Vernon Manjit drug-eluting stent proximal to the aforementioend stent, inflated to 12 rachael. Post-dilation of the proximal-mid stent was then carried out using a 3.0 NC balloon. We then closely evaluated the ostium which appeared to have disease and appeared to be uncovered. We then advanced a 3.5 x 12 mm Vernon Malden drug- eluting stent in the proximal RCA [...] The patient was transferred back to the brine room laborer holding area in good condition. Coronary [...] * POCT ACT (09/18/2024 9:52 AM EDT) [facility] Signature ACT (Low Range) 352 65 - 400 seconds 09/26/2024 9:35 AM EDT [facility] Parts Back Counter Man ID Mary Marin 09/26/2024 9:35 AM EDT [facility] ACT Device ID [id number] 09/26/2024 9:35 AM EDT [facility] Comment 09/26/2024 9:35 AM EDT [facility] Comment: ACT performed by staff [...] UNSOLICITED RESULTS Final Result Performing Organization Address City/[facility] de Phone Number [facility]ALTHCARE [facility] [address] LAB [address] [place] [address] * POCT ACT (09/18/2024 9:32 AM EDT) ACT (Low Range) 247 65 - 400 seconds 09/26/2024 9:35 AM EDT [facility] Parts Back Counter Man ID Mary Marin 09/26/2024 9:35 AM EDT [facility] ACT Device ID [id number] 09/26/2024 9:35 AM EDT [facility] Comment 09/26/2024 9:35 AM EDT [facility] Comment: ACT performed by staff [...] UNSOLICITED RESULTS Final Result Performing Organization Address City/[facility] de Phone Number [facility] [address] LAB [address] [place] [address] * (ABNORMAL) POCT creatinine (09/18/2024 8:24 AM EDT) Creatinine, Point of Care 1.2(H) 0.6 - 1.1 mg/dL 09/18/2024 8:28 AM EDT [facility] POCT eGFR 48 mL/min/1. 73m*2 09/18/2024 8:28 AM EDT [facility] Parts Back Counter Man ID Rosangela Gallegos 09/18/2024 8:28 AM EDT HEALTHCARE LAB Device ID [id number] 09/18/2024 8:28 AM EDT [facility] Comment 09/18/2024 8:28 AM EDT [facility] Comment:Testing performed on i-STAT at the point of care. Reported eGFRcr in mL/min/1.73m2 is based the CKD-EPI 2020 equation that does not use a race coefficient. Blood Venous blood specimen / Unknown 09/18/2024 8:24 AM EDT 09/18/2024 8:28 AM EDT Miguel Lamb MD LAB POINT OF CARE TE ST DOCKED DEVICE UNSOLICITED RESULTS Final Result [facility] [address] LAB [address] [place] [address] * (ABNORMAL) CBC and differential (09/18/2024 8:20 AM EDT) WBC Count 8.79 3.70 - 10.30 10*3/uL LAB HEMATOLOGY METHOD 09/18/2024 8:38 AM EDT [facility] RBC Count 2.65(L) 3.90 - 5.20 10*6/uL LAB HEMATOLOGY METHOD 09/18/2024 8:38 AM EDT [facility] HGB 7.2(L) 11.2 - 15.7 g/dL LAB HEMATOLOGY METHOD 09/18/2024 8:38 AM EDT [facility] HCT 24.6(L) 34.0 - 45.0 % LAB HEMATOLOGY METHOD 09/18/2024 8:38 AM EDT [facility] Platelet Count 358 155 - 369 10*3/uL LAB HEMATOLOGY METHOD 09/18/2024 8:38 AM EDT [facility] MCV 93 79 - 98 fL LAB HEMATOLOGY METHOD 09/18/2024 8:38 AM EDT [facility] MCH 27.2 26.0 - 32.0 pg LAB HEMATOLOGY METHOD 09/18/2024 8:38 AM EDT [facility] MCHC 29.3(L) 30.7 - 35.5 g/dL LAB HEMATOLOGY METHOD 09/18/2024 8:38 AM EDT [facility] RDW 16.0(H) 11.5 - 14.5 % LAB HEMATOLOGY METHOD 09/18/2024 8:38 AM EDT [facility] MPV 10.4 8.8 - 12.5 fL LAB HEMATOLOGY METHOD 09/18/2024 8:38 AM EDT [facility] nRBC 0.0 <=0.0 per 100 WBCs LAB HEMATOLOGY METHOD 09/18/2024 8:38 AM EDT [facility] Differential Type Automated LAB HEMATOLOGY METHOD 09/18/2024 8:38 AM EDT [facility] Neutrophils % 90 % LAB HEMATOLOGY METHOD 09/18/2024 8:38 AM EDT [facility] Lymphocytes % 6 % LAB HEMATOLOGY METHOD 09/18/2024 8:38 AM EDT [facility] Monocytes % 2 % LAB HEMATOLOGY METHOD 09/18/2024 8:38 AM EDT [facility] Eosinophils % 1 % LAB HEMATOLOGY METHOD 09/18/2024 8:38 AM EDT [facility] Basophils % 0 % LAB HEMATOLOGY METHOD 09/18/2024 8:38 AM EDT [facility] Immature Granulocytes % 1 % LAB HEMATOLOGY METHOD 09/18/2024 8:38 AM EDT [facility] Neutrophils Absolute 7.96(H) 1.60 - 6.10 10*3/uL LAB HEMATOLOGY METHOD 09/18/2024 8:38 AM EDT [facility] Lymphocytes Absolute 0.56(L) 1.20 - 3.90 10*3/uL LAB HEMATOLOGY METHOD 09/18/2024 8:38 AM EDT [facility] Monocytes Absolute 0.13(L) 0.30 - 0.90 10*3/uL LAB HEMATOLOGY METHOD 09/18/2024 8:38 AM EDT [facility] Eosinophils Absolute 0.07 0.00 - 0.50 10*3/uL LAB HEMATOLOGY METHOD 09/18/2024 8:38 AM EDT [facility] Basophils Absolute 0.02 0.00 - 0.10 10*3/uL LAB HEMATOLOGY METHOD 09/18/2024 8:38 AM EDT [facility] Immature Granulocytes Absolute 0.05 0.00 - 0.06 10*3/uL LAB HEMATOLOGY METHOD 09/18/2024 8:38 AM EDT [facility] Blood Venous blood specimen / Unknown Venipuncture / Unknown 09/18/2024 8:20 AM EDT 09/18/2024 8:26 AM EDT Narrative [facility] - 09/18/2024 8:38 AM EDT Therapeutic decision making should be based on absolute values, rather than percentages. us Miguel Lamb MD LAB BLOOD ORDERABLES Final Resu lt [facility] [address] [place] [address] * (ABNORMAL) Basic metabolic panel (09/18/2024 8:20 AM EDT) Glucose, Plasma 157(H) 74 - 99 mg/dL 09/18/2024 8:58 AM EDT [facility] BUN, Plasma 17 8 - 23 mg/dL 09/18/2024 8:58 AM EDT [facility] Creatinine, Plasma 1.05 0.60 - 1.10 mg/dL 09/18/2024 8:58 AM EDT [facility] BUN/Creatinine Ratio 16 09/18/2024 8:58 AM EDT [facility] Sodium, Plasma 138 136 - 145 mmol/L 09/18/2024 8:58 AM EDT [facility] Potassium, Plasma 4.5 3.6 - 4.9 mmol/L 09/18/2024 8:58 AM EDT [facility] Chloride, Plasma 100 97 - 107 mmol/L 09/18/2024 8:58 AM EDT [facility] CO2, Plasma 23 22 - 29 mmol/L 09/18/2024 8:58 AM EDT [facility] Anion Gap 15 6 - 16 mmol/L 09/18/2024 8:58 AM EDT [facility] Total Calcium, Plasma 9.4 8.9 - 10.2 mg/dL 09/18/2024 8:58 AM EDT [facility] eGFRcr 56.9 mL/min/1.7 3m*2 09/18/2024 8:58 AM EDT [facility] Comment:Reported eGFRcr in m L/min/1.73m2 is based the CKD-EPI 2020 equation that does not use a race coefficient. 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
--- OUTSIDE RECORDS SUMMARY | 2024-09-18 08:30 | XMS_ITS | Encounter Summary ---
Author Organization [facility] Address [address] [id number] Care Team Providers Care Head Baker Name Role Phone Mustapha James MD Primary Care Provider [phone] Miguel Lamb MD Unavailable [phone] Reason for Visit * Auth/Cert (Routine) Specialty Diagnoses / Procedures Referred By Contac t Referred To Contact Diagnoses S/P coronary artery stent placement S/P coronary artery stent placement [Z95.5] Procedures [place] PRQ TRLUML CORONARY STENT W/ANGIO ONE ART/BRNCH Percutaneous coronary intervention Miguel Lamb MD [address] [place] [address] Phone: tel: fax: Cardiac Meteorologist Liaison [address] [place] [address] Phone: tel: Referral ID Status Reason Start Date Expiration Date Visits Re quested Visits Authorized [id number] 1 1 Encounter Details Date Type Department Care Team (Late st Contact Info) Description 09/18/2024 8:30 AM EDT - 09/18/2024 10:30 AM EDT Surgery Cardiac Meteorologist Liaison [address] [place] [address] Miguel Lamb MD [address] [place] [address] Percutaneous coronary intervention [62336 (CPT )] Surgery Details Date/Time Status Location OR Service Patient Class Case Class Case Type Trauma Case? 09/18/2024 8:30 AM Posted JULIETA HAMMER FITTER CH HAMMER FITTER 03 Cardiovascular [facility] Out[facility] Surgery E-Elect marija Panel 1 Procedure [...] tablet by mouth daily. 07/24/2019 HYDROcodone-acet aminophen ([place]) 7.5-325 MG tablet Take 1 tablet by [...] from the original note were not included. [id number] Bleeding or Hematoma After Cardiac Catheterization You [...] provider. Last Reviewed Date: 2024 00:00:00 ?? [id number] [employer]. All rights reserved. This information is not [...] been discussed with the patient and/or their personal banking representative. All questions answered and they agree [...] 50 MCG/ACT nasal spray 1 spray, Daily Blmdoeviobl-Lzfpudygn-Pdaluv (Trelegy Ellipta) 100-62.5-25 MCG/ACT aerosol powder Inhale. furosemide (LASIX) 20 mg, Daily HYDROcodone-acetaminophen ([place]) 7.5-325 MG tablet 1 tablet, Every 8 [...] Fellow, PGY-6, Department of Cardiovascular Medicine Pager: [phone] [1] Past Medical History: Diagnosis Date COPD (chronic obstructive pulmonary disease) ([facility]) HLD (hyperlipidemia) HTN (hypertension) Lung cancer (CMS/HCC) [...] PM EDT Appointment Cardiac Imaging [address] [place] [phone] 01/04/2025 3:30 PM EDT Office Visit [facility] Julieta [address] [facility]. [address] [place] [phone] Miguel Lamb MD [address] [place] [phone] documented as of this encounter Procedures Procedure [...] of an overlapping 3.5 x 12 mm Agu[place] drug-eluting stent. Ostium flared to 4.0. 3. Serial 70% diffuse lesions of the mid-distal RCA s/p successful PCI with placement of overlapping 3.0 x 26 mm and 2.75 x 30 mm Aguada Manjit drug-eluting stents (proximal-distal). Recommendations: 1. Post-PCI [...] After confirming therapeutic activated clotting time, a WorkWith.mewater wire was advanced beyond the lesion and into the distal RCA. We advanced an Emerge RX 2.5 x 20 mm balloon into the mid-dstial RCA lesion and inflated to 12 rachael. The balloon was withdrawn slightly and serial inflations performed using the same technique. We then advanced a 2.75 mm x 30 mm Aguada Manjit drug eluting stent into the lesion and deployed at 12 rachael. We then placed and overlapping 3.0 x 26 mm Agu[place] drug-eluting stent proximal to the aforementioend stent, inflated to 12 rachael. Post-dilation of the proximal-mid stent was then carried out using a 3.0 NC balloon. We then closely evaluated the ostium which appeared to have disease and appeared to be uncovered. We then advanced a 3.5 x 12 mm Agu[place] drug- eluting stent in the proximal RCA [...] The patient was transferred back to the dental laboratory technology teacher holding area in good condition. Coronary Findings [...] Aortic AO: 123/49 (74) mmHg us Miguel aLmb MD CV CARDIAC CATH PROCEDURES Sheyla caban Result * POCT ACT (09/18/2024 9:52 AM EDT) [facility] ACT (Low Range) 352 65 - 400 seconds 09/26/2024 9:35 AM EDT HEALTHCARE LAB Data Coder Operator ID Fister-Mary Saenz 09/26/2024 9:35 AM [...] UNSOLICITED RESULTS Final Result Performing Organization Address City/[facility]/ZIP Co de Phone Number HEALTHCARE LAB [address] LAB [address] [place] [address] * POCT ACT (09/18/2024 9:32 AM EDT) ACT (Low Range) 247 65 - 400 seconds 09/26/2024 9:35 AM EDT [facility] Data Coder Operator ID Fister-Me tc, Mary 09/26/2024 9:35 [...] UNSOLICITED RESULTS Final Result Performing Organization Address City/[facility]/ZIP Co de Phone Number HEALTHCARE LAB [address] LAB [address] [place] [address] * (ABNORMAL) POCT creatinine (09/18/2024 8:24 AM EDT) [facility] Creatinine, Point of Care 1.2(H) 0.6 - 1.1 mg/dL 09/18/2024 8:28 AM EDT HEALTHCARE LAB POCT eGFR 48 mL/min/1. 73m*2 09/18/2024 8:28 AM EDT HEALTHCARE LAB Data Coder Operator ID Rosangela Gallegos 09/18/2024 8:28 AM EDT HEALTHCARE LAB Device ID [id number] 09/18/2024 8:28 AM EDT HEALTHCARE LAB Comment [...] UNSOLICITED RESULTS Final Result HEALTHCARE LAB [address] LAB [address] [place] [address] * (ABNORMAL) CBC and differential (09/18/2024 8:20 AM EDT) [facility] WBC Count 8.79 3.70 - 10.30 10*3/uL [...] Resu lt [facility] LAB [address] [place] [address] * (ABNORMAL) Basic metabolic panel (09/18/2024 8:20 [...] Resu lt [facility] [address] [place] [address] documented in this encounter Visit Diagnoses Diagnosis S/P coronary artery stent placement- Primary Postsurgical percutaneous transluminal coronary angioplasty status Coronary artery disease involving ione coronary artery of ione heart with angina pectoris ([facility]) S/P coronary artery stent placement Postsurgical percutaneous [...] documented as of this encounter Care Teams Head Baker Relationship Specialty Start Date End Date Mustapha James MD [address] [place] [address] PCP - General 09/05/20 Miguel Lamb MD [address] [place] [address] Referring Physician Interventional Cardiology 08/16/24 documented as of this encounter
--- OUTSIDE RECORDS SUMMARY | 2024-10-17 13:26 | XMS_ITS | Continuity of Care Document ---
Author Organization [facility]. If a dditional information is needed, contact Health Information Management at [phone] Address [address] [place] [address] Phone Care Team Providers Care Coat Operator Insulator Name Role Phone Unavailable Unavailable Unavailable Encounters pre-admission 13-Apr-2023 14:06 ROSALINDA (Attending) Tristen
--- OUTSIDE RECORDS SUMMARY | 2024-10-17 13:28 | XMS_ITS | Encounter Summary ---
Author Organization [employer] Address [address] [place] [address] Care Team Providers Care Advance Agent Name Role Phone Unavailable Primary Care Provider Unavailabl e Encounter Details Date Type Department Care Team (Late st Contact Info) Description 03/14/2019 Transcribed Document [facility] Radiology [address] [place] [address] Martinez Miller MD [facility] [place] [address] Social History Tobacco Use Types Packs/Day Years [...] 1955 Associated Diagnoses: None Author: CHRIS LOVING, INGOT STRIPPER Chief Complaint PAD Review of Systems ROS [...] skin and nails, Oral, Daily, 0 Refill(s) Highland 7.5 mg-325 mg oral tablet: 1 Tab, [...] Medication hair, skin and nails, Oral, Daily Highland 7.5 mg-325 mg oral tablet 1 Tab, [...] Problems Cervical spinal stenosis / SNOMED CT 824475434 / Confirmed Smoker / SNOMED CT 715448749 / Confirmed Sinusitis / SNOMED CT 27297059 / Confirmed Seasonal allergies / SNOMED CT 462787571 / Confirmed Restless leg / SNOMED CT 29674853 / Confirmed Colon polyps / SNOMED CT 603924458 / Confirmed Pneumonia / SNOMED CT 764812342 / Confirmed Peripheral vascular disease / SNOMED CT 9887702162 / Confirmed Peptic ulcer / SNOMED CT 99961456 / Confirmed Osteoporosis / SNOMED CT 318612001 / Confirmed Neuropathy, R arm / SNOMED CT 4570184689 / Confirmed Migraines / SNOMED CT 68636451 / Confirmed Skin cancer / SNOMED CT 3223484809 / Confirmed Hypertension / SNOMED CT 8895819006 / Confirmed Hyperlipidemia / SNOMED CT 11573337 / Confirmed Elevated cholesterol / SNOMED CT 20296700 / Confirmed Hiatal hernia / SNOMED CT 207147033 / Confirmed Hemorrhoids / SNOMED CT 067854294 / Confirmed H/O: TIA / SNOMED CT 868271315 / Confirmed GERD (gastroesophageal reflux disease) / SNOMED CT 290333628 / Confirmed Gastritis / SNOMED CT 6709085 / Confirmed Fibromyalgia / SNOMED CT 61147959 / Confirmed Fibroids / SNOMED CT 660710374 / Confirmed Endometriosis / SNOMED CT 1133147740 / Confirmed Diverticulitis / SNOMED CT 152755199 / Confirmed Sinus problem / SNOMED CT 7852341296 / Confirmed Known medical problems / SNOMED CT 040498333 / Confirmed white spots on MRI Known medical problems / SNOMED CT 269938499 / Confirmed anti nuclear A and A antibodies Constipation / SNOMED CT 71661311 / Confirmed COPD (chronic obstructive pulmonary disease) / SNOMED CT 47470100 / Confirmed Chronic cough / SNOMED CT 483810223 / Confirmed Chronic constipation / SNOMED CT 693261748 / Confirmed Stroke, possible / SNOMED CT 167195194 / Confirmed Bursitis / SNOMED CT 991244240 / Confirmed Bronchitis / SNOMED CT 68758808 / Confirmed Back pain / SNOMED CT 430692352 / Confirmed At risk for sleep apnea / IMO 03013016 / Confirmed Arthritis / SNOMED CT 3722293 / Confirmed Anemia / SNOMED CT 826266389 / Confirmed Allergic rhinitis / SNOMED CT 348841928 / Confirmed, Active Problems (40) Allergic rhinitis [...] EST Height Source Measured Height Entry Format [place] Height/Length, TURKS [place] ISLANDER (ft) 0 ft Height/Length TURKS AND CA[place] ISLANDER 63 Inch CLINICALHEIGHT 160.02 cm [place] Body Weight 52 kg Weight Source Standing scale Weight Entry Format [place] Weight Mauritian lb 189.1 lb CLINICALWEIGHT 85.95 kg Body [...] LLE weakness, uses cane. Integumentary: Warm, Dry, [place]. Neurologic: Alert, Oriented. Psychiatric: Cooperative, Appropriate mood [...]
--- OUTSIDE RECORDS SUMMARY | 2024-10-17 13:28 | XMS_ITS | Encounter Summary ---
Author Organization [employer] Address [address] [place] [address] Care Team Providers Care Hand Laster Name Role Phone Unavailable Primary Care Provider Unavailabl e Encounter Details Date Type Department Care Team (Late st Contact Info) Description 03/14/2019 Transcribed Document [facility] Radiology [address] [place] [address] Martinez Miller MD Counts include 234 beds at the [facility] [place] [address] Social History Tobacco Use Types Packs/Day Years [...] allow for placement and advancement of a 6-Mohawk sheath. 3. Catheter placement within the aorta. 4. Aortography demonstrating patency of bilateral common iliac artery stents. 5. Inability to access the occluded left superficial femoral artery through an antegrade fashion. 6. Successful recanalization of occluded superficial femoral artery through pedal access and placement of a 5 x170 LifeStent. OPERATIVE DESCRIPTION: The patient was taken back to the roofing laborer and placed in supine position. Following IV [...] Attempts to advance a radio to peripheral 6-Mohawk sheath was performed, fortunately successful. This got [...] successfully with a micropuncture wire. A low-profile 6-Mohawk sheath was placed. Left lower extremity angiogram [...] Recovery in stable condition. No immediate complications. /[id number] Martinez Miller MD NNA/AQ / NNAlisa / MODL /[id number] documented in this encounter Plan of Treatment Not on file documented as of this encounter Visit Diagnoses Not on filedocumented in this encounter
--- OUTSIDE RECORDS SUMMARY | 2024-10-17 13:28 | XMS_ITS | Encounter Summary ---
Author Organization [employer] Address [address] [place] [address] Care Team Providers Care Pack Worker Name Role Phone Unavailable Primary Care Provider Unavailabl e Encounter Details Date Type Department Care Team (Late st Contact Info) Description 03/14/2019 Transcribed Document [facility] [place] [address] [place] [address] ProviderRegina MD [address] [place] [address] Social History Tobacco Use Types Packs/Day Years Used Date Smoking Tobacco: Never Assessed Comments Unknown Sex and Gender Information Value Date Recorded Sex Assigned at Not on file Legal Sex Female 5:00 PM CDT Gender Identity Not on file Sexual Orientation Not on file documented as of this encounter Miscellaneous Notes * Cerner Conversion Note - Historical ProviderMD - 03/14/2019 4:16 PM ACCOUNTING MACHINE SERVICER Nursing Discharge Summary Entered On: 03/14/2019 16:19 [...] 03/14/2019 16:16 EST Electronically signed by Mickey [facility] Conversion Social Services Technician Cerner at 08/13/2022 11:21 AM CDT documented in this encounter Plan of Treatment Not on file documented as of this encounter Visit Diagnoses Not on filedocumented in this encounter
--- OUTSIDE RECORDS SUMMARY | 2024-10-17 13:28 | XMS_ITS | Encounter Summary ---
Author Organization [employer] [facility] [facility] Address [address] [place] [address] Care Team Providers Care Acquisitions Assistant Name Role Phone Unavailable Primary Care Provider Unavailabl e Encounter Details Date Type Department Care Team (Late st Contact Info) Description 03/14/2019 Transcribed Document [facility] [place] [address] [place] [address] ProviderRegina MD [address] [place] [address] Social History Tobacco Use Types [...] Regina Henley MD - 03/14/2019 4:22 PM LABORER HOISTING [facility] [place] [address] THOMAS GTZ SRIRAM :1955 Visit Time:03/14/2019 Your Visit Summary Your Care Team Admitting Physician - TONY PEÑA MD-SUR Attending Physician - TONY PEÑA MD-SUR Primary Care Physician - JACKIE BABIN MD-FAM Referring Physician - JACKIE BABIN MD-FAM PHY, NONE Your Diagnosis 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 ??? Take mkxz-wju-vhvubnh and prescription medicines only as told by [...] 01/30/2014 Document Revised: 09/13/2016 Document Reviewed: 07/31/2016 Medivance Interactive Patient Education ?? 2019 Medivance Inc. Angiogram, Care After This sheet gives [...] and water are not available, use hand wardrobe image consultant. ? Change your dressing as told by [...] contrast dye from your body. ??? Take fixu-xuj-esrxedv and prescription medicines only as told by [...] 10/28/2005 Document Revised: 03/16/2017 Document Reviewed: 03/16/2017 Medivance Interactive Patient Education ?? 2019 [employer]. Angiogram An angiogram is a procedure used [...] including vitamins, herbs, eye drops, creams, and abie-lvd-pygnsct medicines. ??? Any problems you or family [...] 01/19/2006 Document Revised: 08/16/2017 Document Reviewed: 05/18/2017 Medivance Interactive Patient Education ?? 2019 Medivance Inc. Intermittent Claudication Intermittent claudication is pain [...] calories. Consider working with a diet and client technical specialist (dietitian) to help you make healthy [...] blood pressure, or high cholesterol. ??? Take mrzg-hvx-awxvbig and prescription medicines only as told by [...] 02/11/2005 Document Revised: 05/12/2017 Document Reviewed: 05/12/2017 Medivance Interactive Patient Education ?? 2019 Medivance Inc. Peripheral Vascular Disease Peripheral vascular disease [...] activities for you. General instructions ??? Take ejxy-xpf-wektneh and prescription medicines only as told by [...] 05/19/2005 Document Revised: 05/19/2017 Document Reviewed: 05/19/2017 Medivance Interactive Patient Education ?? 2019 Medivance Inc. Emergency Awareness and Preventative Care STROKE [...] Assistance with quitting is available by contacting 1-808-OXNO-NOW. This is a free resource providing counseling, [...] was given the opportunity to ask questions. Patient/Fitness/Wellness Director Name: Patient/Fitness/Wellness Director Signature: Relationship to Patient: Clinician/Hospital Fitness/Wellness Director Signature: Date: documented in this encounter Plan of Treatment Not on file documented as of this encounter Visit Diagnoses Not on filedocumented in this encounter
--- OUTSIDE RECORDS SUMMARY | 2024-10-17 13:28 | XMS_ITS | Encounter Summary ---
Author Organization [employer] Address [address] [place] [address] Care Team Providers Care Refresh Technician Name Role Phone Unavailable Primary Care Provider Unavailabl e Encounter Details Date Type Department Care Team (Late st Contact Info) Description 02/12/2019 Transcribed Document [facility] Radiology 1 [place] [address] Martinez Miller MD [facility] [place] [address] Social History Tobacco Use Types Packs/Day Years [...] with large thigh collaterals with reconstitution of lftkc-qto-zumk popliteal artery. 3. Recanalization of occluded right common iliac artery and placement of an 8 x 38 LifeStream within the proximal right common with a kissing 8 x 27 left common iliac artery stent. 4. Distal right common iliac artery was treated with an 8 x 38 stent, and right external iliac artery occlusion was treated with a 7 x 39 [place] VBX. OPERATIVE DESCRIPTION: The patient was taken back to the operating room, placed in a supine on the operating room table. Following IV sedation, bilateral groins were widely prepped and draped in a standard sterile fashion. Time-out was taken. Under ultrasound guidance, left common femoral artery was accessed with a Micropuncture needle. A 5-Danish sheath was placed. Flush catheter was advanced [...] with snare technique was used and a 7-Danish sheath was advanced into the kw[place] aorta from the right femoral artery to [...] was treated with a 7 x 39 [place] VBX stent. Excellent results were achieved upon completion. Normal pulsatile flow was present within the right common femoral artery. Mynx closure device was used bilaterally. The patient was then taken back to Recovery in stable condition. No complications. /[id number] MD FLOR Nguyen/BRIANNA / NNA / MODL /[id number] documented in this encounter Plan of Treatment Not on file documented as of this encounter Visit Diagnoses Not on filedocumented in this encounter
--- OUTSIDE RECORDS SUMMARY | 2024-10-17 13:28 | XMS_ITS | Clinical Summary ---
Author Organization [employer] Address [address] [place] [address] Care Team Providers Care Rug Backing Stenciler Name Role Phone Unavailable Primary Care Provider [...] Date Mathew rded Speak language other than Lao at home Not on file 05/13/2023 Want [...]
--- OUTSIDE RECORDS SUMMARY | 2024-10-17 13:28 | XMS_ITS | Encounter Summary ---
Author Organization [employer] [facility] Address [address] [place] [address] Care Team Providers Care Silk Screen Printing Racker Name Role Phone Unavailable Primary Care Provider Unavailabl e Encounter Details Date Type Department Care Team (Late st Contact Info) Description 03/14/2019 Transcribed Document [facility] [place] Family Medicine [address] [place] [address] ProviderRegina MD [address] [place], [place] [address] Social History Tobacco Use Types Packs/Day Years Used Date Smoking Tobacco: Never Assessed Comments Unknown Sex and Gender Information Value Date Recorded Sex Assigned at Not on file Legal Sex Female 5:00 PM CDT Gender Identity Not on file Sexual Orientation Not on file documented as of this encounter Miscellaneous Notes * Cerner Conversion Note - Regina Henley MD - 03/14/2019 4:15 PM HEAD FILTER PRESS TENDER Patient Education Materials Follows: Moderate Conscious Sedation, [...] you are awake and alert. ??? Take pdko-whs-ltzpkku and prescription medicines only as told by [...] 01/30/2014 Document Revised: 09/13/2016 Document Reviewed: 07/31/2016 Cohealo Interactive Patient Education ? 2019 [employer] Inc. Angiogram, Care After This sheet gives [...] and water are not available, use hand personnel scheduler. ? Change your dressing as told by [...] contrast dye from your body. ??? Take knje-vqq-kkcxzip and prescription medicines only as told by [...] 10/28/2005 Document Revised: 03/16/2017 Document Reviewed: 03/16/2017 Cohealo Interactive Patient Education ? 2019 [employer] Inc. Angiogram An angiogram is a procedure [...] including vitamins, herbs, eye drops, creams, and yvzp-avr-gtxtxmd medicines. ??? Any problems you or family [...] 01/19/2006 Document Revised: 08/16/2017 Document Reviewed: 05/18/2017 Cohealo Interactive Patient Education ? 2019 [employer] Inc. Cardiovascular Intermittent Claudication Intermittent claudication is [...] calories. Consider working with a diet and food and nutrition services assistant (dietitian) to help you make healthy food [...] blood pressure, or high cholesterol. ??? Take djza-nlf-twnkkbw and prescription medicines only as told by [...] 02/11/2005 Document Revised: 05/12/2017 Document Reviewed: 05/12/2017 [email or web address] Interactive Patient Education ? 2019 Elsevier Inc. [...] activities for you. General instructions ??? Take bxqq-rnb-yzciitv and prescription medicines only as told by [...] 05/19/2005 Document Revised: 05/19/2017 Document Reviewed: 05/19/2017 [email or web address] Interactive Patient Education ? 2019 [employer]. documented in this encounter Plan of Treatment Not on file documented as of this encounter Visit Diagnoses Not on filedocumented in this encounter
--- OUTSIDE RECORDS SUMMARY | 2024-10-17 13:28 | XMS_ITS | Encounter Summary ---
Author Organization [employer] Address [address] [place] [address] Care Team Providers Care Electronic Specialist Name Role Phone Unavailable Primary Care Provider Unavailabl e Encounter Details Date Type Department Care Team (Late st Contact Info) Description 03/14/2019 Transcribed Document [facility] [place] [address] [place] [address] ProviderRegina MD [address], [place] [address] Social History Tobacco Use Types Packs/Day Years Used Date Smoking Tobacco: Never Assessed Comments Unknown Sex and Gender Information Value Date Recorded Sex Assigned at Not on file Legal Sex Female 5:00 PM CDT Gender Identity Not on file Sexual Orientation Not on file documented as of this encounter Miscellaneous Notes * Cerner Conversion Note - Regina ProviderMD - 03/14/2019 12:37 PM HEALTH CLAIMS EXAMINER [facility] Main OR Preop Summary Primary Physician: TONY PEÑA MD-SUR Finalized Date/Time: 03/14/19 13:13:44 Pt. Name: THOMAS GTZ SRIRAM Reynolds/Sex: 1955 Female Med Rec #: [id number] Physician: TONY PEÑA MD-SUR Financial #: [id number] Pt. Type: O Room/Bed: Admit/Disch: 03/14/19 09:48:00 - Institution: [facility] PreOp Case Times Entry 1 In Preop 03/14/19 10:14:00 Ready for Holding n/a Room Patient Ready for 03/14/19 11:25:00 Surgery Patient Out of Preop 03/14/19 12:14:00 Patient Out of n/a Holding Room Last Modified By: Susie Hernández, RN 03/14/19 13:13:43 [facility] PreOp Case Times Audit 03/14/19 13:13:43 Chair Car Driver: [id number] Modifier: [email or web address] <+> 1 Patient Out of Preop 03/14/19 11:25:55 Chair Car Driver: [email or web address] Modifier: [email or web address] <+> 1 Patient Ready for Surgery Finalized By: Susie Hernández, RN Document Signatures Signed By: Susie Hernández RN 03/14/19 13:13 Electronically signed by Mickey [facility] Conversion Athletic Training Internship Cerner at 08/13/2022 11:17 AM CDT documented in this encounter Plan of Treatment Not on file documented as of this encounter Visit Diagnoses Not on filedocumented in this encounter
--- OUTSIDE RECORDS SUMMARY | 2024-10-17 13:28 | XMS_ITS | Encounter Summary ---
Author Organization [employer] Address [address] [place] [address] Care Team Providers Care Clinical Data Analyst Name Role Phone Unavailable Primary Care Provider Unavailabl e Encounter Details Date Type Department Care Team (Late st Contact Info) Description 03/14/2019 Transcribed Document [facility] [place] Family Medicine [address] [place] [address] ProviderRegina MD [address], [place] [address] Social History Tobacco Use Types Packs/Day Years Used Date Smoking Tobacco: Never Assessed Comments Unknown Sex and Gender Information Value Date Recorded Sex Assigned at Not on file Legal Sex Female 5:00 PM CDT Gender Identity Not on file Sexual Orientation Not on file documented as of this encounter Miscellaneous Notes * Cerner Conversion Note - Regina ProviderMD - 03/14/2019 12:37 PM CIRCULAR SAW OPERATOR [facility] Main OR IntraOp Summary Primary Physician: TONY PEÑA MD-SUR Finalized Date/Time: 03/15/19 11:29:27 Pt. Name: JODI GTZ SRIRAM Reynolds/Sex: 1955 Female Med Rec #: [id number] Physician: TONY PEÑA MD-SUR Financial #: [id number] Pt. Type: O Room/Bed: Admit/Disch: 03/14/19 09:48:00 - 03/14/19 17:30:00 Institution: [facility] IntraOp Case Attendance Entry 1 Entry 2 Entry 3 Case Attendee TONY PEÑA MD-SUR CALDWELL, JOSEPH A, CRNA BOWEN, JON B, MD-ANS Role Performed Surgeon/Proceduralist, MERCEDES/Nurse Art Manager Anesthesiologist First Time In 03/14/19 12:18:00 03/14/19 [...] KIERSTEN KHALIL, Gia Liu, Coco Hagan, Cardiovascular Wood Heel Attacher Role Performed Sap Pp Consultant, First Sap Pp Consultant, Second Wood Heel Attacher Time In 03/14/19 12:18:00 03/14/19 12:18:00 03/14/19 12:18:00 Time Out 03/14/19 14:07:00 03/14/19 14:07:00 03/14/19 14:07:00 Procedure Aortogram Abdominal Aortogram Abdominal Aortogram Abdominal with Runoff(Left) with Runoff(Left) with Runoff(Left) Other Attendee Superficial Wound Closed By: Last Modified By: Gia Armendariz RN Duncan, Richelle, RN Duncan, Richelle, RN 03/14/19 14:07:56 03/14/19 14:07:56 03/14/19 14:07:56 Entry 7 Case Attendee Mayra Castrejon [employer] Role Performed Wood Heel Attacher Time In 03/14/19 12:18:00 Time Out 03/14/19 14:07:00 Procedure Aortogram Abdominal with Runoff(Left) Other Attendee Superficial Wound Closed By: Last Modified By: Gia Armendariz RN 03/14/19 14:07:56 [facility] IntraOp Case Attendance Audit 03/14/19 14:07:56 Metal Drill Press Operator: [id number] Modifier: [id number] 1 <+> Time Out 1 <*> Procedure [...] Procedure Aortogram Abdominal with Runoff(Left) 03/14/19 13:11:30 Metal Drill Press Operator: [id number] Modifier: [id number] 1 <*> Procedure Aortogram Abdominal with Runoff(Left) 2 <*> Procedure Aortogram Abdominal with Runoff(Left) 3 <*> Procedure Aortogram Abdominal with Runoff(Left) 4 <*> Procedure Aortogram Abdominal with Runoff(Left) 5 <*> Procedure Aortogram Abdominal with Runoff(Left) 6 <+> Time In 6 <*> Procedure Aortogram Abdominal with Runoff(Left) 7 <+> Time In 7 <*> Procedure Aortogram Abdominal with Runoff(Left) 03/14/19 12:47:49 Metal Drill Press Operator: [id number] Modifier: [id number] <+> 6 Case Attendee <+> 6 Role Performed <+> 6 Procedure <+> 7 Case Attendee <+> 7 Role Performed <+> 7 Procedure 03/14/19 12:46:19 Metal Drill Press Operator: [id number] Modifier: [id number] <+> 1 Procedure 2 <*> Procedure Aortogram Abdominal with Runoff(Left) 3 <+> Time In 3 <*> Procedure Aortogram Abdominal with Runoff(Left) 4 <+> Time In 4 <*> Procedure Aortogram Abdominal with Runoff(Left) 5 <+> Time In 5 <*> Procedure Aortogram Abdominal with Runoff(Left) 03/14/19 12:45:34 Metal Drill Press Operator: [id number] Modifier: [id number] 2 <+> Time In 2 <*> Procedure Aortogram Abdominal with Runoff(Left) <+> 3 Case Attendee <+> 3 Role Performed <+> 3 Procedure <+> 4 Case Attendee <+> 4 Role Performed <+> 4 Procedure <+> 5 Case Attendee <+> 5 Role Performed <+> 5 Procedure [facility] IntraOp Case Times Entry 1 Patient In Room Time 03/14/19 12:18:00 Out Room Time 03/14/19 14:07:00 Anesthesia Start Time 03/14/19 12:18:00 Stop Time 03/14/19 14:07:00 Anesthesia Ready 03/14/19 12:18:00 Surgery / Procedure Times Start Time 03/14/19 12:37:00 Stop Time 03/14/19 14:01:00 Last Modified By: Gia Armendariz RN 03/14/19 12:39:43 [facility] IntraOp Case Times Audit 03/14/19 14:07:55 Metal Drill Press Operator: [id number] Modifier: [id number] <+> 1 Out Room Time <+> 1 Stop Time <+> 1 Stop Time [facility] IntraOp Communication Entry 1 Entry 2 Communication To Family/Significant other Family/Significant other Comment START UPDATE Communication By Gia Armendariz RN Duncan, Richelle, RN Date and Time 03/14/19 12:45:00 03/14/19 13:49:00 Last Modified By: Gia Armendariz RN Duncan, Richelle, RN 03/14/19 12:48:01 03/14/19 13:50:06 [facility] IntraOp Communication Audit 03/14/19 13:50:06 Metal Drill Press Operator: [id number] Modifier: [id number] <+> 2 Communication By <+> 2 Date and Time <+> 2 Communication To <+> 2 Comment [facility] IntraOp Departure from OR Entry 1 Integumentary Assessment Integumentary WDL Assessment WDL Transfer/Handoff Transfer to Other Handoff Method Phone call Post-op Transport Stretcher/Gurney Via Patient Transport JACKIE BLANTON MD-ANS, Accompanied by EVERETT FREED CRNA, RESULTAY, JOSEFINA, RN Transfer/Handoff PT TRANSPORTED TO [facility], PT STABLE Last Modified By: Gia Armendariz RN 03/14/19 12:48:40 [facility] IntraOp Dressing and Packing Entry 1 Type Dressing Location OPSITE Wound Dressing Item 4x4's Applied By TONY PEÑA MD-JESUS Other Comments COVADERM Last Modified By: Gia Armendariz RN 03/14/19 12:48:56 [facility] IntraOp Fire Risk Assessment Entry 1 [...] Modified By: Gia Armendariz RN 03/14/19 12:49:12 [facility] IntraOp General Case Sausage Cooker 1 Case Information OR OR 20 [facility] Case Level 1 Room Verified Yes Wound Class I - Clean Specialty SN General Anesthesia Type MAC ASA Class 3 Diagnosis Preop Diagnosis BILATERAL CLAUDICATION Postop Same As Preop Yes Postop Diagnosis BILATERAL CLAUDICATION Last Modified By: Gia Armendariz RN 03/14/19 13:06:23 [facility] IntraOp General Case Data Audit 03/14/19 13:07:04 Metal Drill Press Operator: [id number] Modifier: [id number] 1 <*> Preop Diagnosis RIGHT ILIAC ARTERY OCCLUSION 1 <*> Postop Diagnosis RIGHT ILIAC ARTERY OCCLUSION 03/14/19 13:06:23 Metal Drill Press Operator: [id number] Modifier: [id number] <+> 1 ASA Class <+> 1 Anesthesia Type <+> 1 Postop Same As Preop <+> 1 Preop Diagnosis <+> 1 Postop Diagnosis <+> 1 Room Verified [facility] IntraOp Implant Log Entry 1 Entry 2 Type Implant (Synthetic) Implant (Synthetic) Implant Log Implant Type Other Tissue Implant Type Implant DEVICE MYNX FOUR CORNER FORMER MACHINE OPERATOR 6F/ 7F STENT VASC LS 5F 135cm Identification [id number] Description Implant Quantity 1 1 Implant Site LEFT GROIN LEFT SFA Implant Identification Model Number Implant Identification Serial Number Implant [id number] Identification Lot Number Implant Access Closure Cr Bard:Peripheral Vasc Identification Precision Assembler Name: Implant [id number] Identification Catalog Number Implant Size Implant Has an Yes Yes Expiration Date Implant Expiration 01/22/21 08/18/20 Date Wasted Radioactive Material Time Implanted Tissue Implant Continue for Tissue Implant Documentation Tissue Identification Number Graft Prep Per Precision Assembler Instructions: Tissue Preparation Method: Reconstitution Solution: Reconstitution Solution Lot Number Reconstitution Solution Expiration Date: Thawing Solution Thawing Solution Lot Number Thawing Solution Expiration Date Preparation Materials, Other Preparation Materials, Other Lot Number Preparation Materials, Other Expiration Date Tissue Prepared/Processed By Precision Assembler Paperwork Completed Implant Type Comment Last Modified By: Gia Armendariz RN Duncan, Richelle, RN 03/14/19 13:46:31 03/14/19 13:48:58 [facility] IntraOp Implant Log Audit 03/14/19 13:48:58 Metal Drill Press Operator: [id number] Modifier: [id number] <+> 2 Implant Identification Description <+> 2 Implant Identification Lot Number <+> 2 Implant Identification Precision Assembler Name: <+> 2 Implant Expiration Date <+> 2 Implant Site <+> 2 Implant Quantity <+> 2 Implant Identification Catalog Number <+> 2 Implant Has an Expiration Date <+> 2 Type [facility] IntraOp Intraoperative Assessment Entry 1 Handoff [...] Modified By: Gia Armendariz RN 03/14/19 13:07:39 [facility] IntraOp Intraoperative Equipment Entry 1 Equipment Intraop Monitoring Electrocardiogram Three lead placement (ECG) Electrode Placement Blood Pressure Non-Invasive BP Device Source Blood Pressure Arm, right upper Location Pulse Oximeter Hand, left Probe Site Antiembolic Devices Scopes Photo/Video Documentation Last Modified By: Gia Armendariz RN 03/14/19 13:08:03 [facility] IntraOp Medication Admin Entry 1 Entry [...] Duncan, Richelle, RN 03/14/19 13:10:57 03/14/19 13:10:57 [facility] IntraOp Medication Admin Audit 03/14/19 13:58:22 Metal Drill Press Operator: [id number] Modifier: [id number] 1 <*> Dose 50 [facility] IntraOp Patient Positioning Entry 1 Procedure [...] Modified By: Gia Armendariz RN 03/14/19 13:11:17 [facility] IntraOp Sign In Entry 1 Patient, [...] Modified By: Gia Armendariz RN 03/14/19 13:11:29 [facility] IntraOp Sign Out Entry 1 RN [...] Sign Out Comment REPORT TO KAYLEN IN [facility] RN Sign Out KIERSTEN KHALIL RN Signature [...] Modified By: Gia Armendariz RN 03/14/19 13:11:49 [facility] IntraOp Sign Out Audit 03/14/19 14:01:07 Metal Drill Press Operator: [id number] Modifier: [id number] <+> 1 Sign Out Comment <+> 1 RN Sign Out Signature Date/Time [facility] IntraOp Skin Prep Entry 1 Procedure Aortogram Abdominal with Runoff(Left) Prescribed N/A Pre-Surgical Prep Completed Prep Area LEFT ARM AND HAND TO AXILLA, BILATERAL GROINS, LEFT FOOT Intraop Prep Integumentary WDL Assessment WDL Prep Agents Chloraprep Prep by Gia Armendariz RN Hair Removal Methods No hair removal performed Last Modified By: Gia Armendariz RN 03/14/19 13:12:51 [facility] IntraOp Skin Prep Audit 03/14/19 13:29:16 Metal Drill Press Operator: [id number] Modifier: [id number] 1 <*> Prep Area LEFT ARM AND HAND TO AXILLA, BILATERAL GROINS 1 <*> Procedure Aortogram Abdominal with Runoff(Left) [facility] IntraOp Surgical Procedures Entry 1 Procedure [...] LEFT SUPERFICIAL FEMORAL ARTERY ANGIOPLASTY AND STENTING [facility] Intra Surgical Procedures Audit 03/14/19 14:07:58 Metal Drill Press Operator: [id number] Modifier: [id number] 1 <*> Stop 03/14/19 13:37:02 Metal Drill Press Operator: [id number] Modifier: [id number] 1 <*> Procedure Aortogram Abdominal with Runoff [...] L ACCESS W/ ULTRASOUND ACCESS 03/14/19 13:28:04 Metal Drill Press Operator: [id number] Modifier: [id number] 1 <*> Procedure Aortogram Abdominal with Runoff 1 <*> Additional Procedure Description LEFT RADIAL ACCESS UNDER ULTRASOUND GUIDANCE WITH LEFT UPPER EXTREMITY ANGIOGRAM, CATHETER PLACEMENT WITHIN AORTA; LEFT ACCESS UNDER ULTRASOUND GUIDANCE WITH [facility] IntraOP Time Out Entry 1 Procedure [...] Modified By: Gia Armendariz RN 03/14/19 13:16:01 [facility] IntraOp X-Ray and Images Entry 1 X-Ray/Imaging Type Fluoroscopy Fluoroscopy Type Fixed Site OPSITE Best Worker Name Coco Pfeiffer, Cardiovascular Wood Heel Attacher Protective Devices Yes Used Exposure Time 6.6 MIN Last Modified By: Gia Armendariz RN 03/14/19 13:54:17 [facility] IntraOp X-Ray and Images Audit 03/14/19 13:54:17 Metal Drill Press Operator: [id number] Modifier: [id number] <+> 1 Exposure Time Case Comments <None> Finalized By: JONY MATHEW Document Signatures Signed By: Gia Armendariz RN 03/14/19 14:08 JONY MATHEW 03/15/19 11:29 Unfinalized History Date/Time Username Reason for Unfinalizing Freetext Reason for Unfinalizing 03/15/19 11:24 WATIRINEODR Correct Billing documented in this encounter Plan of Treatment Not on file documented as of this encounter Visit Diagnoses Not on filedocumented in this encounter
--- OUTSIDE RECORDS SUMMARY | 2024-10-17 13:28 | XMS_ITS | Encounter Summary ---
Author Organization [employer] Address [address] [place] [address] Care Team Providers Care Plate Gauger Name Role Phone Unavailable Primary Care Provider Unavailabl e Encounter Details Date Type Department Care Team (Late st Contact Info) Description 03/13/2019 Transcribed Document [facility] [place] [address] [place] [address] ProviderRegina MD [facility] [place] [address] Social History Tobacco Use Types [...] - Historical ProviderMD - 03/13/2019 1:53 PM STONE SANDBLASTER PAT Adult Entered On: 03/13/2019 13:59 EST Performed On: 03/13/2019 13:53 EST by Susie Hernández RN Height and Weight, Clinical Dosing Height Source : Measured Height Entry Format : [place] Height, Feet : 0 ft(Converted to: 0 cm, 0 Inch) Height, Inches : 63 Inch(Converted to: 5 ft 3 Inch, 160.02 cm) Clinical Height : 160.02 cm Weight Source : Standing scale Weight Entry Format : [place] Clinical Dosing Weight : 85.95 kg Weight, Pounds : 189.1 lb Body Surface Area (BSA) : 1.89 m2 Body Mass Index : 33.6 kg/m2 (HI) [place] Body Weight : 52 kg Susie Hernández RN - 03/14/2019 11:07 EST Health Histories Smoking Status : Former smoker, quit more than 30 days ago Smokeless Tobacco Status : Never Implant/Device Type, Mental Health Tech and Model : neck fusion and lumbar [...] : No Tuberculosis Symptoms : None Susie Hernández RN - 03/13/2019 13:53 EST Anesthesia/Transfusion History [...] Susie Hernández RN - 03/13/2019 13:53 EST [place] Suicide Severity Rating Scale (C-SSRS) CSSRS Past [...] Support Person/Pt Rep Name : Christine shannon [phone] Want Family/Rep/Phys Notified of Admit : No Emergency Contact #1 : see above Emergency Contact #1 Phone Number : . Emergency Contact #1 Relationship : . Emergency Contact #2 : . Emergency Contact #2 Phone Number : .. Emergency Contact #2 Relationship : . Information Obtained From : Patient Primary Language : Bhutanese Preferred Communication Mode : Verbal Communication Barrier [...]
--- OUTSIDE RECORDS SUMMARY | 2024-10-17 13:29 | XMS_ITS | Encounter Summary ---
Author Organization [employer] Address [address] [place] [address] Care Team Providers Care Gynaecological Oncologist Name Role Phone Unavailable Primary Care Provider Unavailabl e Encounter Details Date Type Department Care Team (Late st Contact Info) Description 02/09/2019 Transcribed Document [facility] Family Medicine [address] [place] [address] ProviderRegina MD [address] [place], [place] [address] Social History Tobacco Use Types Packs/Day Years [...] Source : Measured Height Entry Format : [place] Height, Inches : 63 Inch(Converted to: 5 ft 3 Inch, 160.02 cm) Clinical Height : 160.02 cm Weight Source : Standing scale Weight Entry Format : [place] Clinical Dosing Weight : 85.91 kg Weight, Pounds : 189 lb Body Surface Area (BSA) : 1.89 m2 Body Mass Index : 33.6 kg/m2 (HI) [place] Body Weight : 52 kg ABRAHAM STOKES RN - 02/12/2019 11:04 EDT Health Histories Smoking Status : 4 or less cigarettes(less than 1/4 pack)/day in last 30 days Smokeless Tobacco Status : Never Desires Tobacco Cessation Medication : No Reason for No Tobacco Cessation Medication : Refuses FDA approved medications Implant/Device Type, Mail Carrier and Model : neck fusion and lumbar [...] Obtained From : Patient Primary Language : Thai Communication Barrier : None MARY MCGRAW RN - 02/09/2019 15:36 EDT Kwesi Scale Kwesi Sensory Perception : No impairment Kwesi Moisture : Rarely moist Kwesi Activity : Walks occasionally Kwesi Mobility : Slightly limited Kwesi Nutrition : Excellent Kwesi Friction and Shear : Potential problem Kwesi [...]
--- OUTSIDE RECORDS SUMMARY | 2024-10-17 13:29 | XMS_ITS | Referral Summary ---
Author Organization [employer] Address [address] [place] [address] Care Team Providers Care Gallery Or Museum Guide Name Role Phone Unavailable Primary Care Provider [...] Date Mathew rded Speak language other than Belarusian at home Not on file 05/13/2023 Want [...]
--- OUTSIDE RECORDS SUMMARY | 2024-10-17 13:29 | XMS_ITS | Encounter Summary ---
Author Organization [facility] Address [address] [place] [address] Care Team Providers Care Director Check Name Role Phone Mustapha James MD Primary Care Provider [phone] Miguel Lamb MD Unavailable [phone] Encounter Details Date Type Department Care [...] EDT Appointment Cardiac Imaging [address] [place] [address] 01/04/2025 3:30 PM EDT Office Visit [facility] [place] [address] [facility] [place] [address] Miguel Lamb MD [address] [place] [id number] documented as of this encounter Visit Diagnoses [...] documented as of this encounter Care Teams Director Check Relationship Specialty Start Date End Date Mustapha James MD [address] [place] [id number] PCP - General 09/05/20 Miguel Lamb MD [address] [place] [id number] Referring Physician Interventional Cardiology 08/16/24 documented as of this encounter
--- OUTSIDE RECORDS SUMMARY | 2024-10-17 13:29 | XMS_ITS | Clinical Summary ---
Author Organization [facility] Address [address] [place] [address] Care Team Providers Care Clinical Systems Educator Name Role Phone Mustapha James MD Primary Care Provider [phone] Miguel Lamb MD Unavailable [phone] Allergies Active Allergy Reactions Criticality Noted [...] mouth daily. 07/24/19 20 Active HYDROcodone-ac etaminophen (Cl[place]) 7.5-325 MG tablet Take 1 tablet by [...] - 09/18/2024 10:30 AM EDT Surgery Cardiac Surgical Aide [address] [place] [address] Miguel Lamb MD Percutaneous coronary intervention [46467 (CPT )] 09/18/2024 7:17 AM EDT - 09/18/2024 3:19 PM EDT Hospital Encounter Cardiac Surgical Aide [address] [place] [address] Miguel Lamb MD S/P coronary artery stent placement Discharge Disposition: Home or Self Care 08/30/2024 2:20 PM EDT - 08/30/2024 4:20 PM EDT Surgery Cardiac Surgical Aide [address] [place] [address] Miguel Lamb MD Percutaneous coronary intervention [37897 (CPT )] 08/30/2024 1:09 PM EDT - 08/31/2024 1:48 PM EDT Hospital Encounter [facility] Inpatient [address] [place] [id number] Miguel Lamb MD S/P coronary artery stent placement (Primary Dx); Nonrheumatic aortic valve stenosis Discharge Disposition: Home or Self Care 08/30/2024 Travel 08/27/2024 [facility] [place] [address] 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 [place] [id number] Trae Chavez RN 07/20/2024 Travel from Last [...] PM EDT Appointment Cardiac Imaging [address] [place] [address] 01/04/2025 3:30 PM EDT Office Visit [place] [facility] [place] [address] [facility] [place] [address] Miguel Lamb MD [address] [place] [address] Health Maintenance Due Date Last Done Comments [...] 2003 [facility]-Diabetes: Hemoglobin A1C 12/01/202212/2022, 07/07/2019, 07/04/2019 [id number] Vaccine ( season) 2023 02/24/2022, 04/01/2021, 08/06/2020, [...] this topic Medical Devices Implanted Type Area Legal Services Professional Device Identifier Shelf Expiration Date Model / Serial / Lot Stent Floyd Manjit Rx 4.5mm X 12mm - [id number] Implanted:Qty: 1 on 08/30/2024 by Miguel Lamb MD at [facility]-[id number] 03/21/2027 [id number] UX / / [id number] Stent Coronary Floyd Manjit Rx 3.00mm X 18mm - [id number] Implanted:Qty: 1 on 08/30/2024 by Miguel Lamb MD at [facility]-[id number] 06/14/2027 [id number] UX / / [id number] Stent Coronary Floyd Killbuck Rx 2.75mm X 30mm - [id number] Implanted:Qty: 1 on 09/18/2024 by Miguel Lamb MD at [facility]-[id number] 03/25/2027 [id number] UX / / [id number] Stent Coronary Floyd Manjit Rx 3.00mm X 26mm - [id number] Implanted:Qty: 1 on 09/18/2024 by Miguel Lamb MD at [facility]-[id number] 06/21/2027 [id number] UX / / [id number] Stent Coronary Floyd Manjit Rx 3.50mm X 12mm - [id number] Implanted:Qty: 1 on 09/18/2024 by Miguel Lamb MD at [id number] 03/04/2027 [id number] UX / / [id number] Procedures Procedure Name Priority Date/Time Associated Diagnosis [...] of an overlapping 3.5 x 12 mm Floyd Manjit drug-eluting stent. Ostium flared to 4.0. 3. Serial 70% diffuse lesions of the mid-distal RCA s/p successful PCI with placement of overlapping 3.0 x 26 mm and 2.75 x 30 mm Floyd Manjit drug-eluting stents (proximal-distal). Recommendations: 1. Post-PCI [...] After confirming therapeutic activated clotting time, a [employer] wire was advanced beyond the lesion and into the distal RCA. We advanced an Emerge RX 2.5 x 20 mm balloon into the mid-dstial RCA lesion and inflated to 12 rachael. The balloon was withdrawn slightly and serial inflations performed using the same technique. We then advanced a 2.75 mm x 30 mm Floyd Killbuck drug eluting stent into the lesion and deployed at 12 rachael. We then placed and overlapping 3.0 x 26 mm Floyd Manjit drug-eluting stent proximal to the aforementioend stent, inflated to 12 rachael. Post-dilation of the proximal-mid stent was then carried out using a 3.0 NC balloon. We then closely evaluated the ostium which appeared to have disease and appeared to be uncovered. We then advanced a 3.5 x 12 mm Floyd Manjit drug- eluting stent in the proximal [...] The patient was transferred back to the component lab tech holding area in good condition. Coronary Findings [...] 09/26/2024 9:35 AM EDT [facility] Energy Control Officer ID Fister-Mary Saenz 09/26/2024 9:35 AM EDT [...] UNSOLICITED RESULTS Final Result [facility] [address] LAB [address] [place] [address] * (ABNORMAL) POCT creatinine (09/18/2024 8:24 AM EDT) Only the most recent of2 resultswithin the time period is included. [facility] Creatinine, Point of Care 1.2(H) 0.6 - 1.1 mg/dL 09/18/2024 8:28 AM EDT [facility] POCT eGFR 48 mL/min/1. 73m*2 09/18/2024 8:28 AM EDT [facility] Energy Control Officer ID Rosangela Gallegos 09/18/2024 8:28 AM EDT HEALTHCARE LAB Device ID [id number] 09/18/2024 8:28 AM EDT HEALTH[facility]ARE [facility] Comment [...] RESULTS Final Result [facility] [address] LAB [address] [place] [address] * (ABNORMAL) CBC and differential (09/18/2024 8:20 AM EDT) [facility] WBC Count 8.79 3.70 - 10.30 [...] Resu lt [facility] [address] [place] [address] * (ABNORMAL) Basic metabolic panel (09/18/2024 8:20 [...] ORDERABLES Final Resu lt Performing Organization Address City/[facility]/ZIP Co de Phone Number [facility] [address] [place] [address] * (ABNORMAL) N-Terminal Probnp, Plasma (08/31/2024 3:59 AM EDT) N-Terminal, PROBNP, Plasma 5,650(H) 0 - 899 pg/mL 08/31/2024 5:[address] [facility] Blood Venous blood specimen / Unknown Venipuncture / Unknown 08/31/2024 3:59 AM EDT 08/31/2024 4:36 AM EDT us Zuly Gaspar APRN LAB BLOOD ORDERABLES Final R esult Performing Organization Address City/[facility]/ZIP Co de Phone Number [facility] [address] [place] [address] * (ABNORMAL) CBC W/O Differential (08/31/2024 3:59 AM EDT) Only the most recent of2 resultswithin the time period is included. WBC Count 16.14(H) 3.70 - 10.30 10*3/uL LAB HEMATOLOGY METHOD 08/31/2024 4:[address] [facility] RBC Count 2.68(L) 3.90 - 5.20 10*6/uL LAB HEMATOLOGY METHOD 08/31/2024 4:[address] [facility] HGB 7.9(L) 11.2 - 15.7 g/dL LAB HEMATOLOGY METHOD 08/31/2024 4:[address] [facility] HCT 25.6(L) 34.0 - 45.0 % LAB HEMATOLOGY METHOD 08/31/2024 4:[address] [facility] Platelet Count 277 155 - 369 10*3/uL LAB HEMATOLOGY METHOD 08/31/2024 4:[address] [facility] MCV 96 79 - 98 fL LAB HEMATOLOGY METHOD 08/31/2024 4:[address] [facility] MCH 29.5 26.0 - 32.0 pg LAB HEMATOLOGY METHOD 08/31/2024 4:[address] [facility] MCHC 30.9 30.7 - 35.5 g/dL LAB HEMATOLOGY METHOD 08/31/2024 4:[address] [facility] RDW 15.0(H) 11.5 - 14.5 % LAB HEMATOLOGY METHOD 08/31/2024 4:[address] [facility] MPV 10.3 8.8 - 12.5 fL LAB HEMATOLOGY METHOD 08/31/2024 4:[address] [facility] nRBC 0.0 <=0.0 per 100 WBCs LAB HEMATOLOGY METHOD 08/31/2024 4:[address] [facility] Blood Venous blood specimen / Unknown Venipuncture / Unknown 08/31/2024 3:59 AM EDT 08/31/2024 4:29 AM EDT us Zuly Gaspar APRN LAB BLOOD ORDERABLES Final R esult [facility] [address] [place] [address] * Magnesium, Plasma (08/31/2024 3:59 AM EDT) Magnesium, Plasma 2.2 1.9 - 2.4 mg/dL 08/31/2024 5:[address] [facility] Blood Venous blood specimen / Unknown Venipuncture / Unknown 08/31/2024 3:59 AM EDT 08/31/2024 4:36 AM EDT us Zuly Gaspar APRN LAB BLOOD ORDERABLES Final R esult Performing Organization Address City/[facility] Co de Phone Number [facility] [address] [place] [address] * ECG Adult (08/30/2024 6:02 PM EDT) EKG DIAGNOSIS CLASS Abnormal MUSE ECG Ventricular Rate 99 BPM MUSE ECG Atrial Rate 99 BPM MUSE ECG ID Interval 142 ms MUSE ECG QRSD Interval 86 ms MUSE ECG QT Interval 368 ms MUSE ECG QTC Interval 472 ms MUSE ECG P [place] 66 degrees MUSE ECG R [place] 16 degrees MUSE ECG T Wave [place] 59 degrees MUSE ECG Diagnosis Normal sinus rhythm MUSE ECG Diagnosis Nonspecific ST and T wave abnormality MUSE ECG Diagnosis MUSE ECG Diagnosis MUSE ECG Diagnosis Confirmed by Dusty Petit ([id number]) on 08/31/2024 5:05:48 PM MUSE ECG 08/30/2024 6:02 PM EDT 08/31/2024 5:05 PM EDT us Miguel Lamb MD ECG ORDERABLES Final Result Performing Organization Address [facility] Co de Phone Number MUSE ECG * PERC CORONARY INTERVENTION (08/30/2024 5:38 PM EDT) Anatomical Region Laterality Modality Other Narrative 09/03/2024 2:51 PM EDT Conclusion: 1. 90% ostial left main stenosis s/p successful PCI with placement of a 4.5 x 15 mm Floyd Killbuck drug-eluting stent (overlapping with previously placed stent distally and 1-2 mm of stent extending in the aorta) 2. 70% heavily calcified distal left main severe in-stent re-stenosis s/p balloon angioplasty with a 3.5 NC balloon 3. 90% ostial RCA stenosis s/p successful PCI with placement of a 3.0 x 12 mm and 3.0 x 18 mm Floyd Manjit drug-eluting stent. Proximal-mid stent post-dilated to [...] After confirming therapeutic activated clotting time, a [employer] wire was advanced beyond the lesion and into the distal LAD. Given ongoing ischemia with concern for potential hemodynamic instability we opted to direct stent. We then advanced a Floyd Manjit 4.5 x 12 mm drug-eluting stent [...] 12 mm and 3.0 x 18 mm Floyd Manjit drug eluting stents in the proximal [...] The patient was transferred back to the component lab tech holding area in good condition. Coronary Findings [...] Volume: 1359 Aortic Root Measurements 3-Cusp view: NAURUAN 16 degrees; EDUCATION PROGRAM COORDINATOR 7 degrees Annulus area: 4.48 cm Annulus [...] 1574 Volume: 1359 Aortic Root Measurements 3-Cusp view:NAURUAN 16 degrees; EDUCATION PROGRAM COORDINATOR 7 degrees Annulus area: 4.48 cm Annulus [...] Volume: 1359 Aortic Root Measurements 3-Cusp view: NAURUAN 16 degrees; EDUCATION PROGRAM COORDINATOR 7 degrees Annulus area: 4.48 cm Annulus [...] 1574 Volume: 1359 Aortic Root Measurements 3-Cusp view:NAURUAN 16 degrees; EDUCATION PROGRAM COORDINATOR 7 degrees Annulus area: 4.48 cm Annulus [...] <6.0% Children and Adolescents <7.5% . Source: [employer]. Standards of medical care in diabetes, 2017. Diabetes Care.2017:40 (suppl 1):S1-S135. . HbA1c assay performed by an ion-exchange chromatography method that is certified traceable to the DCCT. 07/07/2019 2:34 AM EDT 07/07/2019 2:46 AM EDT us Historical Provider LAB BLOOD ORDERABLES Sheyla caban Result SUNQUEST from Last 3 Months or Most Recently Relevant to Health Maintenance Insurance [facility] MEDICARE Advance Directives * Full Code [...] updated to appropriate status: Yes Care Teams Clinical Systems Educator Relationship Specialty Start Date End Date Mustapha James MD [address] [place] [address] PCP - General 09/05/20 Miguel Lamb MD [address] [place] [address] Referring Physician Interventional Cardiology 08/16/24
--- OUTSIDE RECORDS SUMMARY | 2024-10-17 13:29 | XMS_ITS | Encounter Summary ---
Author Organization [facility] Address [address] [place] [address] Care Team Providers Care Pipe Installer Name Role Phone Mustapha James MD Primary Care Provider [phone] Miguel Lamb MD Unavailable [phone] Reason for Visit * Reason Onset Date Comments Med Refill 08/27/2024 Encounter Details Date Type Department Care Team (Late st Contact Info) Description 08/27/2024 Refill [facility] [place] [address] [address] Renee Bravo, RN [facility] Social History Tobacco Use Types Packs/Day Years [...] PM EDT Appointment Cardiac Imaging [address] [place] [address] 01/04/2025 3:30 PM EDT Office Visit [facility] [place] [address] [place] [address] Miguel Lamb MD [address] [place] [address] documented as of this encounter Visit Diagnoses [...] documented as of this encounter Care Teams Pipe Installer Relationship Specialty Start Date End Date Mustapha James MD [address] [place] [id number] PCP - General 09/05/20 Miguel Lamb MD [address] [place] [phone] Referring Physician Interventional Cardiology 08/16/24 documented as of this encounter
--- OUTSIDE RECORDS SUMMARY | 2024-10-17 13:29 | XMS_ITS | Encounter Summary ---
Author Organization [employer] Address [address] [place] [address] Care Team Providers Care Extruder Operator Helper Name Role Phone Unavailable Primary Care Provider Unavailabl e Encounter Details Date Type Department Care Team (Late st Contact Info) Description 02/12/2019 Transcribed Document [facility] Family Medicine [address] [place] [address] ProviderRegina MD [address], [place] [address] Social History Tobacco Use Types Packs/Day Years Used Date Smoking Tobacco: Never Assessed Comments Unknown Sex and Gender Information Value Date Recorded Sex Assigned at Not on file Legal Sex Female 5:00 PM CDT Gender Identity Not on file Sexual Orientation Not on file documented as of this encounter Miscellaneous Notes * Cerner Conversion Note - Regina ProviderMD - 02/12/2019 2:12 PM CDT [facility] Main OR IntraOp Summary Primary Physician: TONY PEÑA MD-SUR Finalized Date/Time: 02/13/19 11:43:16 Pt. Name: JODI GTZ SRIRAM Reynolds/Sex: 1955 Female Med Rec #: [id number] Physician: TONY PEÑA MD-SUR Financial #: [id number] Pt. Type: O Room/Bed: [facility]/11 Admit/Disch: 02/12/19 09:27:00 - 02/12/19 18:10:00 Institution: [facility] IntraOp Case Attendance Entry 1 Entry 2 Entry 3 Case Attendee TONY PEÑA MD-SUR Napier, Elizabeth A, RN Murphy, Whitney, [employer] Role Performed Surgeon/Proceduralist, Carton And Can Supply Supervisor, First Media Clerk First Time In 02/12/19 13:51:00 02/12/19 13:51:00 [...] JOSEPH A, CRNA CORNEA, MIHAELA, MD-CAREN Cardiovascular Media Clerk Role Performed Media Clerk PUBLIC HEALTH REGISTRAR/Nurse Level Vial Setter Anesthesiologist of Record Time In 02/12/19 13:51:00 02/12/19 13:51:00 02/12/19 13:51:00 Time Out 02/12/19 15:09:00 02/12/19 15:09:00 02/12/19 15:09:00 Procedure Aortogram Abdominal Aortogram Abdominal Aortogram Abdominal with Runoff(Right), with Runoff(Right), with Runoff(Right), Arterial Stent Arterial Stent Arterial Stent Endovascular(Right) Endovascular(Right) Endovascular(Right) Other Attendee Superficial Wound Closed By: Last Modified By: Lexus Linda, Lexus Eng, Lexus Eng Rn 02/12/19 15:49:22 02/12/19 15:49:22 02/12/19 15:49:22 Entry 7 Entry 8 Case Attendee Lexus Linda, Martha Zamora RN Role Performed Carton And Can Supply Supervisor, First Carton And Can Supply Supervisor, Second Time In 02/12/19 14:55:00 02/12/19 13:51:00 Time Out 02/12/19 15:09:00 02/12/19 15:09:00 Procedure Aortogram Abdominal Aortogram Abdominal with Runoff(Right), with Runoff(Right), Arterial Stent Arterial Stent Endovascular(Right) Endovascular(Right) Other Attendee Superficial Wound Closed By: Last Modified By: Lexus Linda, Adilene Monsivais RN 02/12/19 15:50:49 02/13/19 07:01:08 [facility] IntraOp Case Attendance Audit 02/13/19 07:01:21 Motor Man: JONN Modifier: EANAPIER 8 <*> Procedure Aortogram Abdominal with Runoff(Right), Arterial Stent Endovascular(Right) 02/13/19 07:01:08 Motor Man: JONN Modifier: EANAPIER 1 <*> Procedure Aortogram [...] with Runoff(Right), Arterial Stent Endovascular(Right) 02/13/19 07:01:03 Motor Man: MEDARDO Modifier: EANAPIER 2 <*> Time Out 02/12/19 15:09:00 2 <*> Procedure Aortogram Abdominal with Runoff(Right), Arterial Stent Endovascular(Right) <+> 8 Case Attendee <+> 8 Role Performed <+> 8 Procedure 02/12/19 15:53:28 Motor Man: SUSANSLOAN Modifier: SUSANSLOAN 7 <*> Time In 02/12/19 15:55:00 7 <*> Procedure Aortogram Abdominal with Runoff(Right), Arterial Stent Endovascular(Right) 02/12/19 15:51:08 Motor Man: SUSANSLOAN Modifier: SUSANSLOAN 7 <*> Procedure Arterial Stent Endovascular(Right) 02/12/19 15:50:49 Motor Man: SUSANSLOAN Modifier: SUSANSLOAN 7 <*> Time Out 02/12/19 15:48:00 7 <*> Procedure Arterial Stent Endovascular(Right) 02/12/19 15:50:15 Motor Man: SUSANSLOAN Modifier: SUSANSLOAN 7 <+> Role Performed 7 <*> Procedure Arterial Stent Endovascular(Right) 02/12/19 15:49:22 Motor Man: EANAPIER Modifier: SUSANSLOAN 1 <+> Time Out [...] Time Out <+> 7 Procedure 02/12/19 14:50:28 Motor Man: EANAPIER Modifier: EANAPIER 1 <*> Procedure Aortogram Abdominal with Runoff(Right) 2 <*> Procedure Aortogram Abdominal with Runoff(Right) 3 <*> Procedure Aortogram Abdominal with Runoff(Right) 4 <*> Procedure Aortogram Abdominal with Runoff(Right) 5 <*> Procedure Aortogram Abdominal with Runoff(Right) 6 <*> Procedure Aortogram Abdominal with Runoff(Right) 02/12/19 14:30:54 Motor Man: EANAPIER Modifier: EANAPIER 1 <*> Procedure Aortogram Abdominal with Runoff(Right) 2 <*> Procedure Aortogram Abdominal with Runoff(Right) 3 <*> Procedure Aortogram Abdominal with Runoff(Right) 4 <*> Procedure Aortogram Abdominal with Runoff(Right) 5 <*> Procedure Aortogram Abdominal with Runoff(Right) 6 <+> Time In 6 <*> Procedure Aortogram Abdominal with Runoff(Right) 02/12/19 14:24:03 Motor Man: EANAPIER Modifier: EANAPIER 1 <*> Case Attendee TONY PEÑA MD-JESUS 1 <*> Role Performed Surgeon/Proceduralist, First 1 <*> Time In 02/12/19 13:51:00 1 <*> Procedure Aortogram Abdominal with Runoff(Right) 2 <*> Case Attendee Adilene Dhillon RN 2 <*> Role Performed Carton And Can Supply Supervisor, First 2 <*> Time In 02/12/19 13:51:00 2 <*> Procedure Aortogram Abdominal with Runoff(Right) 3 <*> Case Attendee Mayra Castrejon, RadTech 3 <*> Role Performed Media Clerk 3 <*> Time In 02/12/19 13:51:00 3 <*> Procedure Aortogram Abdominal with Runoff(Right) 4 <*> Case Attendee Coco Pfeiffer, Cardiovascular Media Clerk 4 <*> Role Performed Media Clerk 4 <*> Time In 02/12/19 13:51:00 4 <*> Procedure Aortogram Abdominal with Runoff(Right) 5 <*> Case Attendee EVERETT FREED PUBLIC HEALTH REGISTRAR 5 <*> Role Performed PUBLIC HEALTH REGISTRAR/Nurse Level Vial Setter 5 <*> Time In 02/12/19 13:51:00 5 <*> Procedure Aortogram Abdominal with Runoff(Right) Entry 6 was deleted. Higher numbered entries shifted one position to fill the gap. <-> 6 Case Attendee MUSTAPHA DUTTON MD-ANS <-> 6 Role Performed Anesthesiologist of Record <-> 6 Time In 02/12/19 13:51:00 <-> 6 Procedure Aortogram Abdominal with Runoff(Right) 02/12/19 14:15:54 Motor Man: HARSHPILUIS Modifier: EANAPIER <+> 1 Procedure 2 <+> Time In 2 <*> Procedure Aortogram Abdominal with Runoff(Right) 3 <+> Time In 3 <*> Procedure Aortogram Abdominal with Runoff(Right) 4 <+> Time In 4 <*> Procedure Aortogram Abdominal with Runoff(Right) 5 <+> Time In 5 <*> Procedure Aortogram Abdominal with Runoff(Right) 6 <+> Time In 6 <*> Procedure Aortogram Abdominal with Runoff(Right) 02/12/19 14:13:18 Motor Man: JONN Modifier: EANAPIER <+> 2 Case Attendee <+> 2 Role Performed <+> 2 Procedure <+> 3 Case Attendee <+> 3 Role Performed <+> 3 Procedure <+> 4 Case Attendee <+> 4 Role Performed <+> 4 Procedure <+> 5 Case Attendee <+> 5 Role Performed <+> 5 Procedure <+> 6 Case Attendee <+> 6 Role Performed <+> 6 Procedure [facility] IntraOp Case Times Entry 1 Patient In Room Time 02/12/19 13:51:00 Out Room Time 02/12/19 15:09:00 Anesthesia Start Time 02/12/19 13:51:00 Stop Time 02/12/19 15:09:00 Surgery / Procedure Times Start Time 02/12/19 14:12:00 Stop Time 02/12/19 15:00:00 Last Modified By: Lexus Linda Rn 02/12/19 15:21:58 [facility] IntraOp Case Times Audit 02/12/19 15:21:58 Motor Man: JONN Modifier: MEDARDO <+> 1 Out Room Time <+> 1 Stop Time <+> 1 Stop Time 02/12/19 14:11:48 Motor Man: HARSHPILUIS Modifier: EANAPIER <+> 1 Start Time [facility] IntraOp Communication Entry 1 Communication To Family/Significant other Comment START Date and Time 02/12/19 14:13:00 Last Modified By: Adilene Dhillon RN 02/12/19 14:12:21 [facility] IntraOp Departure from OR Entry 1 Integumentary Assessment Integumentary WDL Assessment WDL Transfer/Handoff Transfer to Other Handoff Method Phone call Post-op Transport Stretcher/rney Via Patient Transport Lexus Linda Rn Accompanied by Transfer/Handoff PT TRANSPORTED TO [facility] Last Modified By: Lexus Linda Rn 02/12/19 15:48:30 General Comments: CALLED TO Arthur Gonzalez NURSE [facility] IntraOp Departure from OR Audit 02/12/19 15:49:29 Motor Man: MEDARDO Modifier: MEDARDO <+> 1 Patient Transport Accompanied by [facility] IntraOp Dressing and Packing Entry 1 Type Dressing Location OPSITE Wound Dressing Item 4x4's Applied By TONY PEÑA MD-JESUS Other Comments TEGADERM Last Modified By: Adilene Dhillon RN 02/12/19 14:09:39 [facility] IntraOp Fire Risk Assessment Entry 1 [...] Modified By: Adilene Dhillon RN 02/12/19 14:09:55 [facility] IntraOp Fire Risk Assessment Audit 02/12/19 14:13:31 Motor Man: EANAPIER Modifier: EANAPIER <+> 1 Fire Risk Assessment Verified By <+> 1 Fire Risk Assessment Verified Date/Time 02/12/19 14:12:26 Motor Man: EANAPIER Modifier: EANAPIER 1 <-> Fire Risk Assessment Verified 02/12/19 14:10:00 Date/Time [facility] IntraOp General Case Malt Specifications Control Assistant 1 Case Information OR OR 20 [facility] Case Level 1 Room Verified Yes Wound Class I - Clean Specialty SN Endovascular Anesthesia Type MAC ASA Class 3 Diagnosis Preop Diagnosis BILATERAL LOWER EXTREMITY CLAUDICATION Postop Same As Preop No Postop Diagnosis SEE MD NOTE Last Modified By: Adilene Dhillon RN 02/12/19 14:13:47 [facility] IntraOp General Case Data Audit 02/12/19 14:20:37 Motor Man: HRASHPILUIS Modifier: EANAPIER <+> 1 Preop Diagnosis [facility] IntraOp Implant Log Entry 1 Entry 2 Entry 3 Type Implant (Synthetic) Implant (Synthetic) Implant (Synthetic) Implant Log Implant Type Other Tissue Implant Type Implant STENT LS EXP VASC CVR [id number] STENT LS EXP VASC CVR Identification [id number] Description Implant Quantity 1 1 1 Implant Site LEFT COMMON ILIAC ARTERY RIGHT COMMON ILIAC RIGHT COMON ILIAC ARTERY ARTERY Implant [id number] Identification Model Number Implant Identification Serial Number Implant [id number] Identification Lot Number Implant Cr Bard:Peripheral Vasc Cr Bard:Peripheral Vasc Identification Care Nurse Rn Name: Implant [id number] Identification Catalog Number Implant Size 7.9 X 24.6 MM 7.9 X 37 MM Implant Has an Yes Yes Yes Expiration Date Implant Expiration 03/11/22/21 11/22/21 Date Wasted Radioactive Material Time Implanted Tissue Implant Continue for Tissue Implant Documentation Tissue Identification Number Graft Prep Per Care Nurse Rn Instructions: Tissue Preparation Method: Reconstitution Solution: Reconstitution Solution Lot Number Reconstitution Solution Expiration Date: Thawing Solution Thawing Solution Lot Number Thawing Solution Expiration Date Preparation Materials, Other Preparation Materials, Other Lot Number Preparation Materials, Other Expiration Date Tissue Prepared/Processed By Care Nurse Rn Paperwork Completed Implant Type Comment Last Modified By: Adilene Dhillon RN Napier, Elizabeth A, RN Sloan, Susan, Rn 02/12/19 14:37:35 02/12/19 14:39:27 02/12/19 15:46:28 Entry 4 Entry 5 Entry 6 Type Implant (Synthetic) Implant (Synthetic) Implant (Synthetic) Implant Log Implant Type Other Tube(s) Other Tissue Implant Type Implant STNT BLLN ENDO VBX DEVICE MYNX RESTAURANT AREA DIRECTOR 6F/ 7F DEVICE MYNX RESTAURANT AREA DIRECTOR 6F/ 7F Identification [id number] Description Implant Quantity 1 1 1 Implant Site RIGHT EXTERNAL ILIAC RIGHT FEMORAL LEFT FEMORAL ARTERY ARTERY Implant [id number] Identification Model Number Implant [id number] Identification Serial Number Implant [id number] Identification Lot Number Implant [employer]:Med Prdt Access Closure Access Closure Identification Care Nurse Rn Name: Implant [id number] Identification Catalog Number Implant Size Implant Has an Yes Yes Yes Expiration Date Implant Expiration 07/29/21 01/22/21 01/22/21 Date Wasted Radioactive Material Time Implanted Tissue Implant Continue for Tissue Implant Documentation Tissue Identification Number Graft Prep Per Care Nurse Rn Instructions: Tissue Preparation Method: Reconstitution Solution: Reconstitution Solution Lot Number Reconstitution Solution Expiration Date: Thawing Solution Thawing Solution Lot Number Thawing Solution Expiration Date Preparation Materials, Other Preparation Materials, Other Lot Number Preparation Materials, Other Expiration Date Tissue Prepared/Processed By Care Nurse Rn Paperwork Completed Implant Type Comment Last Modified By: Lexus Linda Rn Sloan, Susan, Rn Sloan, Susan, Rn 02/12/19 15:46:28 02/12/19 15:46:28 02/12/19 15:46:28 [facility] IntraOp Implant Log Audit 02/12/19 15:46:28 Motor Man: EANAPIER Modifier: MEDARDO 1 <*> Implant Identification Description STENT LS EXP VASC CVR [id number] <+> 3 Implant Identification Description <+> 3 Implant Identification Lot Number <+> 3 Implant Identification Care Nurse Rn Name: <+> 3 Implant Expiration Date <+> 3 Implant Site <+> 3 Implant Quantity <+> 3 Implant Identification Catalog Number <+> 3 Implant Type <+> 3 Implant Identification Model Number <+> 3 Implant Has an Expiration Date <+> 3 Type <+> 4 Implant Identification Description <+> 4 Implant Identification Serial Number <+> 4 Implant Identification Care Nurse Rn Name: <+> 4 Implant Expiration Date <+> 4 Implant Site <+> 4 Implant Quantity <+> 4 Implant Identification Catalog Number <+> 4 Implant Type <+> 4 Implant Identification Model Number <+> 4 Implant Has an Expiration Date <+> 4 Type <+> 5 Implant Identification Description <+> 5 Implant Identification Lot Number <+> 5 Implant Identification Care Nurse Rn Name: <+> 5 Implant Expiration Date <+> 5 Implant Site <+> 5 Implant Quantity <+> 5 Implant Identification Catalog Number <+> 5 Implant Type <+> 5 Implant Identification Model Number <+> 5 Implant Has an Expiration Date <+> 5 Type <+> 6 Implant Identification Description <+> 6 Implant Identification Care Nurse Rn Name: <+> 6 Implant Expiration Date <+> 6 Implant Site <+> 6 Implant Quantity <+> 6 Implant Identification Catalog Number <+> 6 Implant Type <+> 6 Implant Identification Model Number <+> 6 Implant Has an Expiration Date <+> 6 Type 02/12/19 14:39:27 Motor Man: JONN Modifier: EANAPIER <+> 2 Implant Identification Description <+> 2 Implant Identification Lot Number <+> 2 Implant Size <+> 2 Implant Expiration Date <+> 2 Implant Site <+> 2 Implant Quantity <+> 2 Implant Has an Expiration Date <+> 2 Type [facility] IntraOp Intraoperative Assessment Entry 1 Handoff [...] Modified By: Adilene Dhillon RN 02/13/19 06:58:24 [facility] IntraOp Intraoperative Assessment Audit 02/13/19 06:58:24 Motor Man: EANAPIER Modifier: EANAPIER 1 <*> Skin Assessment Verified Yes 1 <+> Handoff Method [facility] Intra Intraoperative Equipment Entry 1 Type Monitoring Equipment Intraop Monitoring Electrocardiogram Three lead placement (ECG) Electrode Placement Blood Pressure Non-Invasive BP Device Source Blood Pressure Arm, right upper Location Pulse Oximeter Hand, left Probe Site Antiembolic Devices Scopes Photo/Video Documentation Last Modified By: Adilene Dhillon RN 02/12/19 14:15:38 [facility] IntraOp Medication Admin Entry 1 Entry 2 Entry 3 Medication/Irrigant CESAR VISIPAQUE 320MG 150 lidocaine 1% 50ml vial CESAR NACL 0.9PCT HPRN 200ML --[id number] - [id number] 1000U .5L --[id number] Combo Med List Time Administered Route of [...] RN 02/12/19 14:14:13 02/12/19 14:14:13 02/12/19 14:14:13 [facility] IntraOp Medication Admin Audit 02/13/19 06:57:26 Motor Man: EANAPIER Modifier: EANAPIER <+> 1 Dose [facility] IntraOp Patient Positioning Entry 1 Procedure [...] Modified By: Adilene Dhillon RN 02/13/19 06:59:18 [facility] IntraOp Patient Positioning Audit 02/13/19 06:59:18 Motor Man: JONN Modifier: EANAPIER 1 <*> Procedure Aortogram Abdominal with Runoff(Right), Arterial Stent Endovascular(Right) 1 <*> Positioning Devices Head Rest, Safety Strap, Thighs, Sled Arm Rest 1 <*> Positioned By TONY PEÑA MD-JESUS 02/12/19 14:50:30 Motor Man: HARSHPILUIS Modifier: EANAPIER 1 <*> Procedure Aortogram Abdominal with Runoff(Right) [facility] IntraOp Sign In Entry 1 Patient, [...] Modified By: Adilene Dhillon RN 02/12/19 14:14:44 [facility] IntraOp Sign Out Entry 1 RN [...] Modified By: Adilene Dhillon RN 02/12/19 14:15:04 [facility] IntraOp Sign Out Audit 02/12/19 15:49:49 Motor Man: JONN Modifier: TANMAYANSLOAN <+> 1 RN Sign Out Signature Date/Time 02/12/19 14:16:46 Motor Man: HARSHPILUIS Modifier: EANAPIER 1 <*> Urinary Catheter Documented in IView N/A [facility] IntraOp Skin Prep Entry 1 Procedure Aortogram Abdominal with Runoff(Right), Arterial Stent Endovascular(Right) Prescribed N/A Pre-Surgical Prep Completed Prep Area BILATERAL GROINS Intraop Prep Integumentary WDL Assessment WDL Prep Agents Chloraprep Prep by Adilene Dhillon RN Hair Removal Methods No hair removal performed Last Modified By: Adilene Dhillon RN 02/12/19 14:13:55 [facility] IntraOp Skin Prep Audit 02/12/19 14:50:30 Motor Man: JONN Modifier: EANAPIER 1 <*> Procedure Aortogram Abdominal with Runoff(Right) [facility] IntraOp Surgical Procedures Entry 1 Entry [...] Elizabeth A, RN 02/13/19 07:00:03 02/12/19 14:50:24 [facility] IntraOp Surgical Procedures Audit 02/13/19 07:00:03 Motor Man: ROSALINDALOAN Modifier: EANAPIER 1 <*> Procedure Aortogram Abdominal with Runoff 1 <*> Additional Procedure Description (AORTOGRAM WITH RT LEG REVASCULARIZATION) 02/12/19 15:49:57 Motor Man: JONN Modifier: SUSANSLOAN 1 <*> Procedure Aortogram Abdominal with Runoff 1 <+> Stop <+> 2 Stop 02/12/19 14:54:15 Motor Man: HARSHPIER Modifier: EANAPIER 1 <*> Procedure Aortogram Abdominal with Runoff 02/12/19 14:50:24 Motor Man: JONN Modifier: HARSHPIER <+> 2 Procedure <+> 2 Primary Procedure <+> 2 Modifiers <+> 2 Primary Surgeon <+> 2 Specialty <+> 2 Start <+> 2 Wound Class <+> 2 Anesthesia Type [facility] IntraOP Time Out Entry 1 Procedure [...] Modified By: Adilene Dhillon RN 02/12/19 14:50:31 [facility] IntraOP Time Out Audit 02/12/19 14:50:31 Motor Man: JONN Modifier: YOHANACHASITYER 1 <*> Procedure to be Performed Aortogram Abdominal with Runoff(Right) [facility] IntraOp X-Ray and Images Entry 1 X-Ray/Imaging Type Fluoroscopy Fluoroscopy Type Fixed Preparation Plant Repairer Name Mayra Castrejon [employer] Protective Devices Yes [...] 11:36 JORGE Correct Billing Electronically signed by [facility], [facility] Conversion Director Of Strategy & Mobile Cerner at 08/13/2022 11:13 AM CDT documented in this encounter Plan of Treatment Not on file documented as of this encounter Visit Diagnoses Not on filedocumented in this encounter
--- OUTSIDE RECORDS SUMMARY | 2024-10-17 13:29 | XMS_ITS | Encounter Summary ---
Author Organization [email or web address] Address [address] [place] [address] Care Team Providers Care Audiovisual Production Specialist Name Role Phone Unavailable Primary Care Provider Unavailabl e Encounter Details Date Type Department Care Team (Late st Contact Info) Description 02/12/2019 Transcribed Document [facility] Family Medicine [address] [place] [address] ProviderRegina MD [address] [place], [place] [address] Social History Tobacco Use Types Packs/Day Years [...] Document Reviewed: 05/14/2011 ExitCare? Patient Information ?2013 [employer]. Angiogram, Care After This sheet gives you [...] and water are not available, use hand centerless grinding machine adjuster. ? Change your dressing as told by [...] contrast dye from your body. ??? Take muva-gwr-omecrpc and prescription medicines only as told by [...] 10/28/2005 Document Revised: 03/16/2017 Document Reviewed: 03/16/2017 [employer] Interactive Patient Education ? 2019 [employer] Moderate Conscious Sedation, Adult, Care After [...] you are awake and alert. ??? Take sebp-ekn-rhmbvvw and prescription medicines only as told by [...] 01/30/2014 Document Revised: 09/13/2016 Document Reviewed: 07/31/2016 [employer] Interactive Patient Education ? 2019 [employer] Electronically signed by Ede Arevalo Conversion Emergency Medicine Nurse Practitioner Cerner at 08/13/2022 11:15 AM CDT documented in this encounter Plan of Treatment Not on file documented as of this encounter Visit Diagnoses Not on filedocumented in this encounter
--- OUTSIDE RECORDS SUMMARY | 2024-10-17 13:29 | XMS_ITS | Encounter Summary ---
Author Organization [employer] Address [address] [place] [address] Care Team Providers Care Animal Daycare Provider Name Role Phone Unavailable Primary Care Provider Unavailabl e Encounter Details Date Type Department Care Team (Late st Contact Info) Description 02/12/2019 Transcribed Document [facility] [place] [address] [place] [address] ProviderRegina MD [address], [place] [address] Social History Tobacco Use Types Packs/Day Years [...] Henley MD - 02/12/2019 5:18 PM CDT [place] [address] THOMAS GTZ SRIRAM :1955 Visit Time:02/12/2019 Your Visit Summary Your Care Team Admitting Physician - TONY PEÑA MD-SUR Attending Physician - TONY PEÑA MD-SUR Primary Care Physician - JACKIE BABIN MD-FAM Referring Physician - JACKIE BABIN MD-FAM PHY, NOT LISTED Your Diagnosis Atherosclerosis of [place] arteries of extremities with intermittent claudication, unspecified extremity, Atherosclerosis of [place] arteries of extremities with intermittent claudication, unspecified [...] Appointment has been made with [facility]. Where: [address] [place] [phone] Medications What How Much When Instructions Next Dose acetaminophen-hydrocodone (Hoffman 7.5 mg-325 mg oral tablet) 1 Tablet(s) [...] Document Reviewed: 05/14/2011 ExitCare?? Patient Information ??2013 [employer]. Angiogram, Care After This sheet gives you [...] and water are not available, use hand electric arc furnace operator. ? Change your dressing as told by [...] contrast dye from your body. ??? Take bsrl-uwq-pfabljm and prescription medicines only as told by [...] 10/28/2005 Document Revised: 03/16/2017 Document Reviewed: 03/16/2017 [employer] Interactive Patient Education ?? 2019 [employer] Moderate Conscious Sedation, Adult, Care After [...] you are awake and alert. ??? Take cufp-iko-zfsrxwx and prescription medicines only as told by [...] 01/30/2014 Document Revised: 09/13/2016 Document Reviewed: 07/31/2016 [employer] Interactive Patient Education ?? 2019 [employer]. Emergency Awareness and Preventative Care STROKE is [...] Assistance with quitting is available by contacting 7-027-NZKO-NOW. This is a free resource providing counseling, [...] was given the opportunity to ask questions. Patient/Manager Infrastructure Name: Patient/Manager Infrastructure Signature: Relationship to Patient: Clinician/Hospital Manager Infrastructure Signature: Date: documented in this encounter Plan of Treatment Not on file documented as of this encounter Visit Diagnoses Not on filedocumented in this encounter
--- OUTSIDE RECORDS SUMMARY | 2024-10-17 13:30 | XMS_ITS | Encounter Summary ---
Author Organization [employer] Address [address] [place] [address] Care Team Providers Care Red Cap Name Role Phone Unavailable Primary Care Provider Unavailabl e Encounter Details Date Type Department Care Team (Late st Contact Info) Description 02/12/2019 Transcribed Document [facility] [address] [place] [address] ProviderRegina MD [facility] [place], [place] [address] Social History Tobacco Use Types Packs/Day Years [...] NAOMI MONTES RN - 02/12/2019 15:39 EDT Electronically signed by Mickey [facility] Conversion Waistband Setter Cerner at 08/13/2022 11:19 AM CDT documented in this encounter Plan of Treatment Not on file documented as of this encounter Visit Diagnoses Not on filedocumented in this encounter
--- OUTSIDE RECORDS SUMMARY | 2024-10-17 13:30 | XMS_ITS | Encounter Summary ---
Author Organization [employer] Address [address] [place] [address] Care Team Providers Care Landscaping And Groundskeeping Laborer Name Role Phone Unavailable Primary Care Provider Unavailabl e Encounter Details Date Type Department Care Team (Late st Contact Info) Description 02/12/2019 Transcribed Document [facility] Radiology [address] [place] [address] Martinez Miller MD [facility] [place] [address] Social History Tobacco Use Types Packs/Day Years [...] 1955 Associated Diagnoses: None Author: CHRIS LOVING, SLITTER SERVICE AND SETTER Chief Complaint PAD Review of Systems ROS reviewed as documented in chart no change since last seen by surgeon [facility] Status Allergies: Allergic Reactions (Selected) Severe [...] skin and nails, Oral, Daily, 0 Refill(s) Dover 7.5 mg-325 mg oral tablet: 1 Tab, [...] Medication hair, skin and nails, Oral, Daily [place] 7.5 mg-325 mg oral tablet 1 Tab, [...] Problems Cervical spinal stenosis / SNOMED CT 143941209 / Confirmed Smoker / SNOMED CT 163107160 / Confirmed Sinusitis / SNOMED CT 07604843 / Confirmed Seasonal allergies / SNOMED CT 078122158 / Confirmed Restless leg / SNOMED CT 45938709 / Confirmed Colon polyps / SNOMED CT 849315359 / Confirmed Pneumonia / SNOMED CT 884943860 / Confirmed Peripheral vascular disease / SNOMED CT 0007651184 / Confirmed Peptic ulcer / SNOMED CT 24611801 / Confirmed Osteoporosis / SNOMED CT 133990278 / Confirmed Neuropathy, R arm / SNOMED CT 5042088607 / Confirmed Migraines / SNOMED CT 36859051 / Confirmed Skin cancer / SNOMED CT 8595644390 / Confirmed Hypertension / SNOMED CT 0006157472 / Confirmed Hyperlipidemia / SNOMED CT 97919332 / Confirmed Elevated cholesterol / SNOMED CT 15089813 / Confirmed Hiatal hernia / SNOMED CT 311021026 / Confirmed Hemorrhoids / SNOMED CT 497263621 / Confirmed H/O: TIA / SNOMED CT 432691643 / Confirmed GERD (gastroesophageal reflux disease) / SNOMED CT 263347882 / Confirmed Gastritis / SNOMED CT 8278548 / Confirmed Fibromyalgia / SNOMED CT 79869033 / Confirmed Fibroids / SNOMED CT 608312060 / Confirmed Endometriosis / SNOMED CT 2207087216 / Confirmed Diverticulitis / SNOMED CT 286676449 / Confirmed Sinus problem / SNOMED CT 1825285832 / Confirmed Known medical problems / SNOMED CT 440317918 / Confirmed white spots on MRI Known medical problems / SNOMED CT 306489551 / Confirmed anti nuclear A and A antibodies Constipation / SNOMED CT 49134389 / Confirmed COPD (chronic obstructive pulmonary disease) / SNOMED CT 20898252 / Confirmed Chronic cough / SNOMED CT 083686058 / Confirmed Chronic constipation / SNOMED CT 804439775 / Confirmed Stroke, possible / SNOMED CT 905006504 / Confirmed Bursitis / SNOMED CT 599463066 / Confirmed Bronchitis / SNOMED CT 61491098 / Confirmed Back pain / SNOMED CT 600372959 / Confirmed Arthritis / SNOMED CT 4395714 / Confirmed Anemia / SNOMED CT 381747826 / Confirmed Allergic rhinitis / SNOMED CT 851553061 / Confirmed, Active Problems (39) Allergic rhinitis [...] LE weakness, uses cane. Integumentary: Warm, Dry, [place]. Neurologic: Alert, Oriented. Psychiatric: Cooperative, Appropriate mood & affect. Review / Management Results review: No qualifying data available. Impression and Plan Condition: Stable. documented in this encounter Plan of Treatment Not on file documented as of this encounter Visit Diagnoses Not on filedocumented in this encounter
--- OUTSIDE RECORDS SUMMARY | 2024-10-17 13:30 | XMS_ITS | Encounter Summary ---
Author Organization Healthcare Address [address] [place] [address] Care Team Providers Care Stock Sheets Cleaner Inspector Name Role Phone Mustapha James MD Primary Care Provider [phone] Miguel Lamb MD Unavailable [phone] Encounter Details Date Type Department Care Team (Late st Contact Info) Description 08/08/2024 Telephone [facility] Radiology [address] [place] [phone] Chaparrita Sarkar RN [facility] Social History [...] PM EDT Appointment Cardiac Imaging [address] [place] [phone] 01/04/2025 3:30 PM EDT Office Visit [facility] [address] [place] [address] Miguel Lamb MD [address] [place] [address] documented as of this encounter [...] documented as of this encounter Care Teams Stock Sheets Cleaner Inspector Relationship Specialty Start Date End Date Mustapha James MD [address] [place] [address] PCP - General 09/05/20 Miguel Lamb MD [address] [place] [phone] Referring Physician Interventional Cardiology 08/16/24 documented as of this encounter
--- OUTSIDE RECORDS SUMMARY | 2024-10-17 13:30 | XMS_ITS | Encounter Summary ---
Author Organization [employer] Address [address] [place] [address] Care Team Providers Care Customer Service Rep Name Role Phone Unavailable Primary Care Provider Unavailabl e Encounter Details Date Type Department Care Team (Late st Contact Info) Description 02/12/2019 Transcribed Document [facility] [place] Family Medicine [address] [place] [address] ProviderRegina MD [address], [place] [address] Social History Tobacco Use Types Packs/Day Years [...] Henley MD - 02/12/2019 5:22 PM CDT [facility] [place] [id number] THOMAS GTZ SRIRAM :1955 Visit Time:02/12/2019 Your Visit Summary Your Care Team Admitting Physician - TONY PEÑA MD-SUR Attending Physician - TONY PEÑA MD-SUR Primary Care Physician - JACKIE BABIN MD-FAM Referring Physician - JACKIE BABIN MD-FAM PHY, NOT LISTED Your Diagnosis Atherosclerosis of [place] arteries of extremities with intermittent claudication, unspecified extremity, Atherosclerosis of [place] grande arteries of extremities with intermittent claudication, unspecified [...] Appointment has been made with [facility]. Where: [address] [place] [phone] Medications What How Much When Instructions Next Dose acetaminophen-hydrocodone ([place] 7.5 mg-325 mg oral tablet) 1 Tablet(s) [...] Document Reviewed: 05/14/2011 ExitCare?? Patient Information ??2013 Yovia. Angiogram, Care After This sheet gives you [...] and water are not available, use hand unit assembler. ? Change your dressing as told by [...] contrast dye from your body. ??? Take uqqh-esb-lyrvucy and prescription medicines only as told by [...] 10/28/2005 Document Revised: 03/16/2017 Document Reviewed: 03/16/2017 [employer] Interactive Patient Education ?? 2019 [employer] Moderate Conscious Sedation, Adult, Care After [...] you are awake and alert. ??? Take utrv-ntt-pxzysvd and prescription medicines only as told by [...] 01/30/2014 Document Revised: 09/13/2016 Document Reviewed: 07/31/2016 [employer] Interactive Patient Education ?? 2019 [employer]. clopidogrel (kloe PID oh grel) Plavix What [...] may report side effects to FDA at 0-907-TRL-8878. What other drugs will affect clopidogrel? Certain other medicines may increase your risk of bleeding, including aspirin. Avoid taking aspirin unless your doctor tells you to. Tell your doctor about all your other medicines, especially: ?? any other medicines to treat or prevent blood clots; ?? a stomach acid hot punch press operator such as omeprazole, Nexium, or Prilosec; ?? an antidepressant; ?? an opioid medication; ?? a blood thinner--warfarin, Coumadin, Jantoven; or ?? NSAIDs (nonsteroidal anti-inflammatory drugs)--ibuprofen (Advil, Motrin), naproxen (Aleve), celecoxib, diclofenac, indomethacin, meloxicam, and others. This list is not complete. Other drugs may affect clopidogrel, including prescription and iyue-glp-ifknyur medicines, vitamins, and herbal products. Not all [...] to ensure that the information provided by [employer]. ('[employer]') is accurate, up-to-date, and complete, but no guarantee is made to that effect. Drug information contained herein may be time sensitive. [employer] information has been compiled for use by healthcare practitioners and consumers in the [place] and therefore [employer] does not warrant that uses outside of the [place] are appropriate, unless specifically indicated otherwise. [employer]'s drug information does not endorse drugs, diagnose patients or recommend therapy. [employer] drug information is an informational resource designed [...] with your doctor, nurse or pharmacist. Copyright 9644-1764 [employer]. Version: 15.. Revision Date: 02/13/2018. Emergency Awareness [...] Assistance with quitting is available by contacting 6-403-URLS-NOW. This is a free resource providing counseling, [...] was given the opportunity to ask questions. Patient/Emergency Nurse Name: Patient/Emergency Nurse Signature: Relationship to Patient: Clinician/Hospital Emergency Nurse Signature: Date: Electronically signed by [facility], [facility] Conversion [employer] Platemaker Andrew at 08/13/2022 11:17 AM CDT documented in this encounter Plan of Treatment Not on file documented as of this encounter Visit Diagnoses Not on filedocumented in this encounter
--- OUTSIDE RECORDS SUMMARY | 2024-10-17 13:30 | XMS_ITS | Encounter Summary ---
Author Organization [employer] Address [address] [place] [address] Care Team Providers Care Bakery Technician Name Role Phone Unavailable Primary Care Provider Unavailabl e Encounter Details Date Type Department Care Team (Late st Contact Info) Description 02/12/2019 Transcribed Document [facility] [place] [address] [place] [address] ProviderRegina MD [address] [place], [place] [address] Social History Tobacco Use Types Packs/Day Years Used Date Smoking Tobacco: Never Assessed Comments Unknown Sex and Gender Information Value Date Recorded Sex Assigned at Not on file Legal Sex Female 5:00 PM CDT Gender Identity Not on file Sexual Orientation Not on file documented as of this encounter Miscellaneous Notes * Cerner Conversion Note - Regina ProviderMD - 02/12/2019 2:12 PM CDT [facility] Main OR Preop Summary Primary Physician: TONY PEÑA MD-SUR Finalized Date/Time: 02/12/19 18:38:33 Pt. Name: THOMAS GTZ SRIRAM Reynolds/Sex: 1955 Female Med Rec #: [id number] Physician: TNOY PEÑA MD-SUR Financial #: [id number] Pt. Type: O Room/Bed: HIS/11 Admit/Disch: 02/12/19 09:27:00 - 02/12/19 18:10:00 Institution: [facility] PreOp Case Times Entry 1 In Preop 02/12/19 09:40:00 Ready for Holding n/a Room Patient Ready for 02/12/19 11:13:00 Surgery Patient Out of Preop 02/12/19 13:49:00 Patient Out of n/a Holding Room Last Modified By: SHAHLA GOOMDAN RN 02/12/19 18:38:24 Finalized By: SHAHLA GOODMAN RN Document Signatures Signed By: SHAHLA GOODMAN RN 02/12/19 18:38 Electronically signed by Mickey [facility] Conversion Business Leader Cerner at 08/13/2022 11:16 AM CDT documented in this encounter Plan of Treatment Not on file documented as of this encounter Visit Diagnoses Not on filedocumented in this encounter
[2024-10-17] MEDS: ferumoxytoL 510 MG in 0.9 % SODIUM CHLORIDE 50 ML 268 MG IV (13:36)
[2024-10-17] MEDS: SODIUM CHLORIDE 0.9% 50ML BAG 50 ML IV (13:36)
[2024-10-17 13:40] VITALS: BP 115/65; PULSE 86; RESP 17
[2024-10-17 13:55] VITALS: BP 107/65; PULSE 90; RESP 17
== END 2024-10-17 14:05 | disposition home or self-care (01) ==
LOC: INF 13:25
PROVIDERS: PCP Family Medicine; Visit Provider Internal Medicine Medical Oncology
DX: D50.9 Iron deficiency anemia, unspecified (principal)
CPT/HCPCS: 96374; Q0138

== ENCOUNTER 2024-11-05 10:48 | Outpatient (CLI) | payer MEDICARE, SELFPAY ==
--- OUTSIDE RECORDS SUMMARY | 2024-09-18 07:17 | XMS_ITS | Encounter Summary ---
Author Organization [facility] Address [address] [id number] Care Team Providers Care Shop Superintendent Name Role Phone Mustapha James MD Primary Care Provider [phone] Miguel Lamb MD Unavailable [phone] Reason for Visit * Auth/Cert (Routine) Specialty Diagnoses / Procedures Referred By Contac t Referred To Contact Diagnoses S/P coronary artery stent placement S/P coronary artery stent placement [Z95.5] Procedures ND PRQ TRLUML CORONARY STENT W/ANGIO ONE ART/BRNCH Percutaneous coronary intervention Miguel Lamb MD [address] [place] [address] Phone: tel: fax: Cardiac Roller Pneumatic [address] [place] [address] Phone: tel: Referral ID Status Reason Start Date Expiration Date Visits Re quested Visits Authorized [id number] 1 1 Encounter Details Date Type Department Care Team (Latest Contact Info) Description 09/18/2024 7:17 AM EDT - 09/18/2024 3:19 PM EDT Hospital Encounter Cardiac Roller P[employer]atic [address] [place] [address] Miguel Lamb MD [address] [place] [address] S/P coronary artery stent placement [...] Behavior (Lifetime) No 8:02 AM EDT Suresh Blacwkell RN documented as of this encounter Medications [...] tablet by mouth daily. 07/24/2019 HYDROcodone-acet aminophen ([place]) 7.5-325 MG tablet Take 1 tablet by [...] from the original note were not included. [id number] Bleeding or Hematoma After Cardiac Catheterization You [...] on the site, and call 911 or [facility] take you to the emergency room. In [...] provider. Last Reviewed Date: 2024 00:00:00 ?? [id number] The [employer]. All rights reserved. This information is not [...] been discussed with the patient and/or their bilingual inside sales representative. All questions answered and they [...] 50 MCG/ACT nasal spray 1 spray, Daily Ogqjeghcurq-Ibmwalmwz-Auotdm (Trelegy Ellipta) 100-62.5-25 MCG/ACT aerosol powder Inhale. furosemide (LASIX) 20 mg, Daily HYDROcodone-acetaminophen ([facility]) 7.5-325 MG tablet 1 tablet, Every 8 [...] Fellow, PGY-6, Department of Cardiovascular Medicine Pager: [phone] [1] Past Medical History: Diagnosis Date COPD [...] PM EDT Appointment Cardiac Imaging [address] [place] [address] 01/04/2025 3:30 PM EDT Office Visit [facility] [address] [place] [address] Miguel Lamb MD [address] [place] [address] documented as of this encounter Procedures Procedure [...] of an overlapping 3.5 x 12 mm Antelope Manjit drug-eluting stent. Ostium flared to 4.0. 3. Serial 70% diffuse lesions of the mid-distal RCA s/p successful PCI with placement of overlapping 3.0 x 26 mm and 2.75 x 30 mm Antelope Manjit drug-eluting stents (proximal-distal). Recommendations: 1. Post-PCI [...] advanced a 2.75 mm x 30 mm Antelope Manjit drug eluting stent into the lesion and deployed at 12 rachael. We then placed and overlapping 3.0 x 26 mm Antelope Manjit drug-eluting stent proximal to the aforementioend stent, inflated to 12 rachael. Post-dilation of the proximal-mid stent was then carried out using a 3.0 NC balloon. We then closely evaluated the ostium which appeared to have disease and appeared to be uncovered. We then advanced a 3.5 x 12 mm Antelope Leary drug- eluting stent in the proximal RCA [...] The patient was transferred back to the vat house laborer holding area in good condition. Coronary Findings [...] * POCT ACT (09/18/2024 9:52 AM EDT) [facility] Signature ACT (Low Range) 352 65 - 400 seconds 09/26/2024 9:35 AM EDT [facility] [employer] ID Mary Marin 09/26/2024 9:35 AM EDT [facility] ACT Device ID [id number] 09/26/2024 9:35 AM EDT [facility] Comment 09/26/2024 9:35 AM EDT [facility] Comment: ACT performed by staff [...] UNSOLICITED RESULTS Final Result Performing Organization Address City/[facility] de Phone Number HEALTHCARE LAB [address] LAB [address] [place] [address] * POCT ACT (09/18/2024 9:32 AM EDT) ACT (Low Range) 247 65 - 400 seconds 09/26/2024 9:35 AM EDT [facility] Set[employer] ID Mary Marin 09/26/2024 9:35 AM EDT [facility] ACT Device ID [id number] 09/26/2024 9:35 AM EDT [facility] Comment 09/26/2024 9:35 AM EDT [facility] Comment: ACT performed by staff [...] UNSOLICITED RESULTS Final Result Performing Organization Address City/[facility] de Phone Number [facility]ARE [facility] [address] LAB [address] [place] [address] * (ABNORMAL) POCT creatinine (09/18/2024 8:24 AM EDT) Creatinine, Point of Care 1.2(H) 0.6 - 1.1 mg/dL 09/18/2024 8:28 AM EDT [facility] POCT eGFR 48 mL/min/1. 73m*2 09/18/2024 8:28 AM EDT [facility] [employer] ID Rosangela Gallegos 09/18/2024 8:28 AM EDT HEALTHCARE LAB Device ID [id number] 09/18/2024 8:28 AM EDT [facility] Comment 09/18/2024 8:28 AM EDT [facility] Comment:Testing performed on i-STAT at the point of care. Reported eGFRcr in mL/min/1.73m2 is based the CKD-EPI 2020 equation that does not use a race coefficient. Blood Venous blood specimen / Unknown 09/18/2024 8:24 AM EDT 09/18/2024 8:28 AM EDT Miguel Lamb MD LAB POINT OF CARE TE ST DOCKED DEVICE UNSOLICITED RESULTS Final Result [facility] [address] LAB [address] [place] [address] * (ABNORMAL) CBC and differential (09/18/2024 8:20 AM EDT) WBC Count 8.79 3.70 - 10.30 10*3/uL LAB HEMATOLOGY METHOD 09/18/2024 8:38 AM EDT [facility] RBC Count 2.65(L) 3.90 - 5.20 10*6/uL LAB HEMATOLOGY METHOD 09/18/2024 8:38 AM EDT [facility] HGB 7.2(L) 11.2 - 15.7 g/dL LAB HEMATOLOGY METHOD 09/18/2024 8:38 AM EDT [facility] HCT 24.6(L) 34.0 - 45.0 % LAB HEMATOLOGY METHOD 09/18/2024 8:38 AM EDT [facility] Platelet Count 358 155 - 369 10*3/uL LAB HEMATOLOGY METHOD 09/18/2024 8:38 AM EDT [facility] MCV 93 79 - 98 fL LAB HEMATOLOGY METHOD 09/18/2024 8:38 AM EDT [facility] MCH 27.2 26.0 - 32.0 pg LAB HEMATOLOGY METHOD 09/18/2024 8:38 AM EDT [facility] MCHC 29.3(L) 30.7 - 35.5 g/dL LAB HEMATOLOGY METHOD 09/18/2024 8:38 AM EDT [facility] RDW 16.0(H) 11.5 - 14.5 % LAB HEMATOLOGY METHOD 09/18/2024 8:38 AM EDT [facility] MPV 10.4 8.8 - 12.5 fL LAB HEMATOLOGY METHOD 09/18/2024 8:38 AM EDT [facility] nRBC 0.0 <=0.0 per 100 WBCs LAB HEMATOLOGY METHOD 09/18/2024 8:38 AM EDT [facility] Differential Type Automated LAB HEMATOLOGY METHOD 09/18/2024 8:38 AM EDT [facility] Neutrophils % 90 % LAB HEMATOLOGY METHOD 09/18/2024 8:38 AM EDT [facility] Lymphocytes % 6 % LAB HEMATOLOGY METHOD 09/18/2024 8:38 AM EDT [facility] Monocytes % 2 % LAB HEMATOLOGY METHOD 09/18/2024 8:38 AM EDT [facility] Eosinophils % 1 % LAB HEMATOLOGY METHOD 09/18/2024 8:38 AM EDT [facility] Basophils % 0 % LAB HEMATOLOGY METHOD 09/18/2024 8:38 AM EDT [facility] Immature Granulocytes % 1 % LAB HEMATOLOGY METHOD 09/18/2024 8:38 AM EDT [facility] Neutrophils Absolute 7.96(H) 1.60 - 6.10 10*3/uL LAB HEMATOLOGY METHOD 09/18/2024 8:38 AM EDT [facility] Lymphocytes Absolute 0.56(L) 1.20 - 3.90 10*3/uL LAB HEMATOLOGY METHOD 09/18/2024 8:38 AM EDT [facility] Monocytes Absolute 0.13(L) 0.30 - 0.90 10*3/uL LAB HEMATOLOGY METHOD 09/18/2024 8:38 AM EDT [facility] Eosinophils Absolute 0.07 0.00 - 0.50 10*3/uL LAB HEMATOLOGY METHOD 09/18/2024 8:38 AM EDT [facility] Basophils Absolute 0.02 0.00 - 0.10 10*3/uL LAB HEMATOLOGY METHOD 09/18/2024 8:38 AM EDT [facility] Immature Granulocytes Absolute 0.05 0.00 - 0.06 10*3/uL LAB HEMATOLOGY METHOD 09/18/2024 8:38 AM EDT [facility] Blood Venous blood specimen / Unknown Venipuncture / Unknown 09/18/2024 8:20 AM EDT 09/18/2024 8:26 AM EDT Narrative [facility] - 09/18/2024 8:38 AM EDT Therapeutic decision making should be based on absolute values, rather than percentages. us Miguel Lamb MD LAB BLOOD ORDERABLES Final Resu lt [facility] [address] [place] [address] * (ABNORMAL) Basic metabolic panel (09/18/2024 8:20 AM EDT) Glucose, Plasma 157(H) 74 - 99 mg/dL 09/18/2024 8:58 AM EDT [facility] BUN, Plasma 17 8 - 23 mg/dL 09/18/2024 8:58 AM EDT [facility] Creatinine, Plasma 1.05 0.60 - 1.10 mg/dL 09/18/2024 8:58 AM EDT [facility] BUN/Creatinine Ratio 16 09/18/2024 8:58 AM EDT [facility] Sodium, Plasma 138 136 - 145 mmol/L 09/18/2024 8:58 AM EDT [facility] Potassium, Plasma 4.5 3.6 - 4.9 mmol/L 09/18/2024 8:58 AM EDT [facility] Chloride, Plasma 100 97 - 107 mmol/L 09/18/2024 8:58 AM EDT [facility] CO2, Plasma 23 22 - 29 mmol/L 09/18/2024 8:58 AM EDT [facility] Anion Gap 15 6 - 16 mmol/L 09/18/2024 8:58 AM EDT [facility] Total Calcium, Plasma 9.4 8.9 - 10.2 mg/dL 09/18/2024 8:58 AM EDT [facility] eGFRcr 56.9 mL/min/1.7 3m*2 09/18/2024 8:58 AM EDT [facility] Comment:Reported eGFRcr in m L/min/1.73m2 is based the CKD-EPI 2020 equation that does not use a race coefficient. 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
--- OUTSIDE RECORDS SUMMARY | 2024-09-18 08:30 | XMS_ITS | Encounter Summary ---
Author Organization [facility] Address [address] [id number] Care Team Providers Care Car Wash Supervisor Name Role Phone Mustapha James MD Primary Care Provider [phone] Miguel Lamb MD Unavailable [phone] Reason for Visit * Auth/Cert (Routine) Specialty Diagnoses / Procedures Referred By Contac t Referred To Contact Diagnoses S/P coronary artery stent placement S/P coronary artery stent placement [Z95.5] Procedures [place] PRQ TRLUML CORONARY STENT W/ANGIO ONE ART/BRNCH Percutaneous coronary intervention Miguel Lamb MD [address] [place] [address] Phone: tel: fax: Cardiac Fitness Coach [address] [place] [address] Phone: tel: Referral ID Status Reason Start Date Expiration Date Visits Re quested Visits Authorized [id number] 1 1 Encounter Details Date Type Department Care Team (Late st Contact Info) Description 09/18/2024 8:30 AM EDT - 09/18/2024 10:30 AM EDT Surgery Cardiac Fitness Coach [address] [place] [address] Miguel Lamb MD [address] [place] [address] Percutaneous coronary intervention [30436 (CPT )] Surgery Details Date/Time Status Location OR Service Patient Class Case Class Case Type Trauma Case? 09/18/2024 8:30 AM Posted JULIETA LOGGING EQUIPMENT MECHANIC CH LOGGING EQUIPMENT MECHANIC 03 Cardiovascular [facility] Outpatient Surgery E-Elect marija Panel [...] tablet by mouth daily. 07/24/2019 HYDROcodone-acet aminophen ([place]) 7.5-325 MG tablet Take 1 tablet by [...] from the original note were not included. [id number] Bleeding or Hematoma After Cardiac Catheterization You [...] on the site, and [facility]. In [...] provider. Last Reviewed Date: 2024 00:00:00 ?? [id number] The [employer]. All rights reserved. This information is not [...] been discussed with the patient and/or their liability claims representative. All questions answered and they agree [...] 50 MCG/ACT nasal spray 1 spray, Daily Esoukbwsjpi-Yfooiyape-Zziqtg (Trelegy Ellipta) 100-62.5-25 MCG/ACT aerosol powder Inhale. furosemide (LASIX) 20 mg, Daily HYDROcodone-acetaminophen ([place]) 7.5-325 MG tablet 1 tablet, Every 8 [...] Fellow, PGY-6, Department of Cardiovascular Medicine Pager: [phone] [1] Past Medical History: Diagnosis Date COPD (chronic obstructive pulmonary disease) ([facility]) HLD (hyperlipidemia) HTN (hypertension) Lung [...] PM EDT Appointment Cardiac Imaging [address] [place] [phone] 01/04/2025 3:30 PM EDT Office Visit [facility] Julieta [address] [facility]. [address] [place] [phone] Miguel Lamb MD [address] [place] [address] documented as of this encounter Procedures Procedure [...] of an overlapping 3.5 x 12 mm Mayes Manjit drug-eluting stent. Ostium flared to 4.0. 3. Serial 70% diffuse lesions of the mid-distal RCA s/p successful PCI with placement of overlapping 3.0 x 26 mm and 2.75 x 30 mm Mayes [place] drug-eluting stents (proximal-distal). Recommendations: 1. Post-PCI EKG. [...] After confirming therapeutic activated clotting time, a HD Fantasy Footballwater wire was advanced beyond the lesion and into the distal RCA. We advanced an Emerge RX 2.5 x 20 mm balloon into the mid-dstial RCA lesion and inflated to 12 rachael. The balloon was withdrawn slightly and serial inflations performed using the same technique. We then advanced a 2.75 mm x 30 mm Mayes Manjit drug eluting stent into the lesion and deployed at 12 rachael. We then placed and overlapping 3.0 x 26 mm Mayes [place] drug-eluting stent proximal to the aforementioend stent, inflated to 12 rachael. Post-dilation of the proximal-mid stent was then carried out using a 3.0 NC balloon. We then closely evaluated the ostium which appeared to have disease and appeared to be uncovered. We then advanced a 3.5 x 12 mm Mayes [place] drug- eluting stent in the proximal RCA [...] The patient was transferred back to the mechanical shop laborer holding area in good condition. Coronary [...] * POCT ACT (09/18/2024 9:52 AM EDT) [facility] ACT (Low Range) 352 65 - 400 seconds 09/26/2024 9:35 AM EDT HEALTHCARE LAB Coach Cleaner ID Fister-Mary Saenz 09/26/2024 9:35 AM EDT [facility] ACT Device ID [id number] 09/26/2024 9:35 AM EDT [facility] Comment 09/26/2024 9:35 AM EDT [facility] Comment: ACT performed by staff [...] UNSOLICITED RESULTS Final Result Performing Organization Address City/[facility]/ZIP Co de Phone Number HEALTHCARE LAB [address] LAB [address] [place] [address] * POCT ACT (09/18/2024 9:32 AM EDT) ACT (Low Range) 247 65 - 400 seconds 09/26/2024 9:35 AM EDT [facility] Coach Cleaner ID Fister-Me tc, Mary 09/26/2024 9:35 AM EDT [facility] ACT Device ID [id number] 09/26/2024 9:35 AM EDT HEALTHCARE LAB Comment 09/26/2024 9:35 AM EDT [facility] Comment: ACT performed by staff [...] UNSOLICITED RESULTS Final Result Performing Organization Address City/[facility]/ZIP Co de Phone Number HEALTHCARE LAB [address] LAB [address] [place] [address] * (ABNORMAL) POCT creatinine (09/18/2024 8:24 AM EDT) [facility] Creatinine, Point of Care 1.2(H) 0.6 - 1.1 mg/dL 09/18/2024 8:28 AM EDT HEALTHCARE LAB POCT eGFR 48 mL/min/1. 73m*2 09/18/2024 8:28 AM EDT HEALTHCARE LAB Coach Cleaner ID Rosangela Gallegos 09/18/2024 8:28 AM EDT HEALTHCARE LAB Device ID [id number] 09/18/2024 8:28 AM EDT HEALTHCARE LAB Comment 09/18/2024 8:28 AM EDT [facility] Comment:Testing performed on i-STAT at the point of care. Reported eGFRcr in mL/min/1.73m2 is based the CKD-EPI 2020 equation that does not use a race coefficient. Blood Venous blood specimen / Unknown 09/18/2024 8:24 AM EDT 09/18/2024 8:28 AM EDT Miguel Lamb MD LAB POINT OF CARE TE ST DOCKED DEVICE UNSOLICITED RESULTS Final Result HEALTHCARE LAB [address] LAB [address] [place] [address] * (ABNORMAL) CBC and differential (09/18/2024 8:20 AM EDT) Pathologist [facility] WBC Count 8.79 3.70 - 10.30 10*3/uL LAB HEMATOLOGY METHOD 09/18/2024 8:38 AM EDT [facility] RBC Count 2.65(L) 3.90 - 5.20 10*6/uL LAB HEMATOLOGY METHOD 09/18/2024 8:38 AM EDT [facility] HGB 7.2(L) 11.2 - 15.7 g/dL LAB HEMATOLOGY METHOD 09/18/2024 8:38 AM EDT [facility] HCT 24.6(L) 34.0 - 45.0 % LAB HEMATOLOGY METHOD 09/18/2024 8:38 AM EDT [facility] Platelet Count 358 155 - 369 10*3/uL LAB HEMATOLOGY METHOD 09/18/2024 8:38 AM EDT [facility] MCV 93 79 - 98 fL LAB HEMATOLOGY METHOD 09/18/2024 8:38 AM EDT [facility] MCH 27.2 26.0 - 32.0 pg LAB HEMATOLOGY METHOD 09/18/2024 8:38 AM EDT [facility] MCHC 29.3(L) 30.7 - 35.5 g/dL LAB HEMATOLOGY METHOD 09/18/2024 8:38 AM EDT [facility] RDW 16.0(H) 11.5 - 14.5 % LAB HEMATOLOGY METHOD 09/18/2024 8:38 AM EDT [facility] MPV 10.4 8.8 - 12.5 fL LAB HEMATOLOGY METHOD 09/18/2024 8:38 AM EDT [facility] nRBC 0.0 <=0.0 per 100 WBCs LAB HEMATOLOGY METHOD 09/18/2024 8:38 AM EDT [facility] Differential Type Automated LAB HEMATOLOGY METHOD 09/18/2024 8:38 AM EDT [facility] Neutrophils % 90 % LAB HEMATOLOGY METHOD 09/18/2024 8:38 AM EDT [facility] Lymphocytes % 6 % LAB HEMATOLOGY METHOD 09/18/2024 8:38 AM EDT [facility] Monocytes % 2 % LAB HEMATOLOGY METHOD 09/18/2024 8:38 AM EDT [facility] Eosinophils % 1 % LAB HEMATOLOGY METHOD 09/18/2024 8:38 AM EDT [facility] Basophils % 0 % LAB HEMATOLOGY METHOD 09/18/2024 8:38 AM EDT [facility] Immature Granulocytes % 1 % LAB HEMATOLOGY METHOD 09/18/2024 8:38 AM EDT [facility] Neutrophils Absolute 7.96(H) 1.60 - 6.10 10*3/uL LAB HEMATOLOGY METHOD 09/18/2024 8:38 AM EDT [facility] Lymphocytes Absolute 0.56(L) 1.20 - 3.90 10*3/uL LAB HEMATOLOGY METHOD 09/18/2024 8:38 AM EDT [facility] Monocytes Absolute 0.13(L) 0.30 - 0.90 10*3/uL LAB HEMATOLOGY METHOD 09/18/2024 8:38 AM EDT [facility] Eosinophils Absolute 0.07 0.00 - 0.50 10*3/uL LAB HEMATOLOGY METHOD 09/18/2024 8:38 AM EDT [facility] Basophils Absolute 0.02 0.00 - 0.10 10*3/uL LAB HEMATOLOGY METHOD 09/18/2024 8:38 AM EDT [facility] Immature Granulocytes Absolute 0.05 0.00 - 0.06 10*3/uL LAB HEMATOLOGY METHOD 09/18/2024 8:38 AM EDT [facility] Blood Venous blood specimen / Unknown Venipuncture / Unknown 09/18/2024 8:20 AM EDT 09/18/2024 8:26 AM EDT Narrative [facility] - 09/18/2024 8:38 AM EDT Therapeutic decision making should be based on absolute values, rather than percentages. us Miguel Lamb MD LAB BLOOD ORDERABLES Final Resu lt [facility] [address] [place] [address] * (ABNORMAL) Basic metabolic panel (09/18/2024 8:20 AM EDT) Glucose, Plasma 157(H) 74 - 99 mg/dL 09/18/2024 8:58 AM EDT [facility] BUN, Plasma 17 8 - 23 mg/dL 09/18/2024 8:58 AM EDT [facility] Creatinine, Plasma 1.05 0.60 - 1.10 mg/dL 09/18/2024 8:58 AM EDT [facility] BUN/Creatinine Ratio 16 09/18/2024 8:58 AM EDT [facility] Sodium, Plasma 138 136 - 145 mmol/L 09/18/2024 8:58 AM EDT [facility] Potassium, Plasma 4.5 3.6 - 4.9 mmol/L 09/18/2024 8:58 AM EDT [facility] Chloride, Plasma 100 97 - 107 mmol/L 09/18/2024 8:58 AM EDT [facility] CO2, Plasma 23 22 - 29 mmol/L 09/18/2024 8:58 AM EDT [facility] Anion Gap 15 6 - 16 mmol/L 09/18/2024 8:58 AM EDT [facility] Total Calcium, Plasma 9.4 8.9 - 10.2 mg/dL 09/18/2024 8:58 AM EDT [facility] eGFRcr 56.9 mL/min/1.7 3m*2 09/18/2024 8:58 AM EDT [facility] Comment:Reported eGFRcr in m L/min/1.73m2 is based the CKD-EPI 2020 equation that does not use a race coefficient. Blood Venous blood specimen / Unknown Venipuncture / Unknown 09/18/2024 8:20 AM EDT 09/18/2024 8:27 AM EDT us Miguel Lamb MD LAB BLOOD ORDERABLES Final Resu lt [facility] [address] [place] [address] documented in this encounter Visit Diagnoses Diagnosis S/P coronary artery stent placement- Primary Postsurgical percutaneous transluminal coronary angioplasty status Coronary artery disease involving [place] coronary artery of [place] heart with angina pectoris ([facility]) S/P coronary artery stent placement [...] documented as of this encounter Care Teams Car Wash Supervisor Relationship Specialty Start Date End Date Mustapha James MD [facility] [place] [address] [place] [address] PCP - General 09/05/20 Miguel Lamb MD [address] [place] [address] Referring Physician Interventional Cardiology 08/16/24 documented as of this encounter
--- OUTSIDE RECORDS SUMMARY | 2024-11-05 10:52 | XMS_ITS | Encounter Summary ---
Author Organization [employer] ([place], [place], [place], [place]) Address [address] [place] [address] Care Team Providers Care Setter Cold Rolling Machine Name Role Phone Unavailable Primary Care Provider Unavailabl e Encounter Details Date Type Department Care Team (Late st Contact Info) Description 03/14/2019 Transcribed Document [facility] [place] Medicine [facility] [place] [address] ProviderRegina MD [address] [place] [address] Social History Tobacco Use Types Packs/Day Years Used Date Smoking Tobacco: Never Assessed Comments Unknown Sex and Gender Information Value Date Recorded Sex Assigned at Not on file Legal Sex Female 5:00 PM CDT Gender Identity Not on file Sexual Orientation Not on file documented as of this encounter Miscellaneous Notes * Cerner Conversion Note - Regina ProviderMD - 03/14/2019 12:37 PM JEWELRY CONSULTANT [facility] Main OR Preop Summary Primary Physician: TONY PEÑA MD-SUR Finalized Date/Time: 03/14/19 13:13:44 Pt. Name: THOMAS GTZ SRIRAM Reynolds/Sex: 1955 Female Med Rec #: [id number] Physician: TONY PEÑA MD-SUR Financial #: [id number] Pt. Type: O Room/Bed: Admit/Disch: 03/14/19 09:48:00 - Institution: [facility] PreOp Case Times Entry 1 In Preop 03/14/19 10:14:00 Ready for Holding n/a Room Patient Ready for 03/14/19 11:25:00 Surgery Patient Out of Preop 03/14/19 12:14:00 Patient Out of n/a Holding Room Last Modified By: Susie Hernández, RN 03/14/19 13:13:43 [facility] PreOp Case Times Audit 03/14/19 13:13:43 Cook Chill Technician: WRIGHTVP Modifier: [email or web address] <+> 1 Patient Out of Preop 03/14/19 11:25:55 Cook Chill Technician: WRIGHTVP Modifier: [email or web address] <+> 1 Patient Ready for Surgery Finalized By: Susie Hernández RN Document Signatures Signed By: Susie Hernández RN 03/14/19 13:13 Electronically signed by Mickey [facility] Conversion Pattern Assembler Cerner at 08/13/2022 11:17 AM CDT documented in this encounter Plan of Treatment Not on file documented as of this encounter Visit Diagnoses Not on filedocumented in this encounter
--- OUTSIDE RECORDS SUMMARY | 2024-11-05 10:52 | XMS_ITS | Encounter Summary ---
Author Organization [employer] ([place], [place], [place], [place]) Address [address] [place] [address] Care Team Providers Care Aerial Gunner Name Role Phone Unavailable Primary Care Provider Unavailabl e Encounter Details Date Type Department Care Team (Late st Contact Info) Description 03/14/2019 Transcribed Document [facility] [place] [facility] [place] [address] ProviderRegina MD [facility] [place] [address] Social History Tobacco Use Types [...] - Regina ProviderMD - 03/14/2019 12:37 PM HEAD USHER [facility] Main OR IntraOp Summary Primary Physician: TONY PEÑA MD-SUR Finalized Date/Time: 03/15/19 11:29:27 Pt. Name: JODI GTZ SRIRAM Reynolds/Sex: 1955 Female Med Rec #: [id number] Physician: TONY PEÑA MD-SUR Financial #: [id number] Pt. Type: O Room/Bed: Admit/Disch: 03/14/19 09:48:00 - 03/14/19 17:30:00 Institution: [facility] IntraOp Case Attendance Entry 1 Entry 2 Entry 3 Case Attendee TONY PEÑA MD-SUR CALDWELL, JOSEPH A, CRNA BOWEN, JON B, MD-ANS Role Performed Surgeon/Proceduralist, CAR STOWER/Nurse Adjunct Psychology Instructor Anesthesiologist First Time In 03/14/19 12:18:00 03/14/19 12:18:00 03/14/19 [...] KIERSTEN KHALIL, Gia Liu, Coco Hagan, Cardiovascular Grassland Conservationist Role Performed Physician Ophthalmologist, First Physician Ophthalmologist, Second Grassland Conservationist Time In 03/14/19 12:18:00 03/14/19 12:18:00 03/14/19 12:18:00 Time Out 03/14/19 14:07:00 03/14/19 14:07:00 03/14/19 14:07:00 Procedure Aortogram Abdominal Aortogram Abdominal Aortogram Abdominal with Runoff(Left) with Runoff(Left) with Runoff(Left) Other Attendee Superficial Wound Closed By: Last Modified By: Gia Armendariz RN Duncan, Richelle, Gia Liu RN 03/14/19 14:07:56 03/14/19 14:07:56 03/14/19 14:07:56 Entry 7 Case Attendee Mayra Castrejon [employer] Role Performed Grassland Conservationist Time In 03/14/19 12:18:00 Time Out 03/14/19 14:07:00 Procedure Aortogram Abdominal with Runoff(Left) Other Attendee Superficial Wound Closed By: Last Modified By: Gia Armendariz RN 03/14/19 14:07:56 [facility] IntraOp Case Attendance Audit 03/14/19 14:07:56 Bull Gang Worker: [id number] Modifier: [id number] 1 <+> Time Out 1 <*> Procedure [...] Procedure Aortogram Abdominal with Runoff(Left) 03/14/19 13:11:30 Bull Gang Worker: [id number] Modifier: [id number] 1 <*> Procedure Aortogram Abdominal with Runoff(Left) 2 <*> Procedure Aortogram Abdominal with Runoff(Left) 3 <*> Procedure Aortogram Abdominal with Runoff(Left) 4 <*> Procedure Aortogram Abdominal with Runoff(Left) 5 <*> Procedure Aortogram Abdominal with Runoff(Left) 6 <+> Time In 6 <*> Procedure Aortogram Abdominal with Runoff(Left) 7 <+> Time In 7 <*> Procedure Aortogram Abdominal with Runoff(Left) 03/14/19 12:47:49 Bull Gang Worker: [id number] Modifier: [id number] <+> 6 Case Attendee <+> 6 Role Performed <+> 6 Procedure <+> 7 Case Attendee <+> 7 Role Performed <+> 7 Procedure 03/14/19 12:46:19 Bull Gang Worker: [id number] Modifier: [id number] <+> 1 Procedure 2 <*> Procedure Aortogram Abdominal with Runoff(Left) 3 <+> Time In 3 <*> Procedure Aortogram Abdominal with Runoff(Left) 4 <+> Time In 4 <*> Procedure Aortogram Abdominal with Runoff(Left) 5 <+> Time In 5 <*> Procedure Aortogram Abdominal with Runoff(Left) 03/14/19 12:45:34 Bull Gang Worker: [id number] Modifier: [id number] 2 <+> Time In 2 <*> Procedure Aortogram Abdominal with Runoff(Left) <+> 3 Case Attendee <+> 3 Role Performed <+> 3 Procedure <+> 4 Case Attendee <+> 4 Role Performed <+> 4 Procedure <+> 5 Case Attendee <+> 5 Role Performed <+> 5 Procedure [facility] IntraOp Case Times Entry 1 Patient In Room Time 03/14/19 12:18:00 Out Room Time 03/14/19 14:07:00 Anesthesia Start Time 03/14/19 12:18:00 Stop Time 03/14/19 14:07:00 Anesthesia Ready 03/14/19 12:18:00 Surgery / Procedure Times Start Time 03/14/19 12:37:00 Stop Time 03/14/19 14:01:00 Last Modified By: Gia Armendariz RN 03/14/19 12:39:43 [facility] IntraOp Case Times Audit 03/14/19 14:07:55 Bull Gang Worker: [id number] Modifier: [id number] <+> 1 Out Room Time <+> 1 Stop Time <+> 1 Stop Time [facility] IntraOp Communication Entry 1 Entry 2 Communication To Family/Significant other Family/Significant other Comment START UPDATE Communication By Gia Armendariz RN Duncan, Richelle, RN Date and Time 03/14/19 12:45:00 03/14/19 13:49:00 Last Modified By: Gia Armendariz RN Duncan, Richelle, RN 03/14/19 12:48:01 03/14/19 13:50:06 [facility] IntraOp Communication Audit 03/14/19 13:50:06 Bull Gang Worker: [id number] Modifier: [id number] <+> 2 Communication By <+> 2 Date and Time <+> 2 Communication To <+> 2 Comment [facility] IntraOp Departure from OR Entry 1 Integumentary Assessment Integumentary WDL Assessment WDL Transfer/Handoff Transfer to Other Handoff Method Phone call Post-op Transport [facility] Patient Transport JACKIE BLANTON MD-ANS, Accompanied by EVERETT FREED CRNA, RESULTAY, JOSEFINA, RN Transfer/Handoff PT TRANSPORTED TO [facility], PT STABLE Last Modified By: Gia Armendariz RN 03/14/19 12:48:40 [facility] IntraOp Dressing and Packing Entry 1 Type Dressing Location OPSITE Wound Dressing Item 4x4's Applied By TONY PEÑA MD-JESUS Other Comments [facility] Last Modified By: Gia Armendariz RN 03/14/19 12:48:56 [facility] IntraOp Fire Risk Assessment Entry 1 [...] Modified By: Gia Armendariz RN 03/14/19 12:49:12 [facility] IntraOp General Case Wafer Production Worker 1 Case Information OR OR 20 [facility] Case Level 1 Room Verified Yes Wound Class I - Clean Specialty SN General Anesthesia Type MAC ASA Class 3 Diagnosis Preop Diagnosis BILATERAL CLAUDICATION Postop Same As Preop Yes Postop Diagnosis BILATERAL CLAUDICATION Last Modified By: Gia Armendariz RN 03/14/19 13:06:23 [facility] IntraOp General Case Data Audit 03/14/19 13:07:04 Bull Gang Worker: [id number] Modifier: [id number] 1 <*> Preop Diagnosis RIGHT ILIAC ARTERY OCCLUSION 1 <*> Postop Diagnosis RIGHT ILIAC ARTERY OCCLUSION 03/14/19 13:06:23 Bull Gang Worker: [id number] Modifier: [id number] <+> 1 ASA Class <+> 1 Anesthesia Type <+> 1 Postop Same As Preop <+> 1 Preop Diagnosis <+> 1 Postop Diagnosis <+> 1 Room Verified [facility] IntraOp Implant Log Entry 1 Entry 2 Type Implant (Synthetic) Implant (Synthetic) Implant Log Implant Type Other Tissue Implant Type Implant DEVICE MYNX [employer] INSPECTOR 6F/ 7F STENT VASC LS 5F 135cm Identification [id number] Description Implant Quantity 1 1 Implant Site LEFT GROIN LEFT SFA Implant Identification Model Number Implant Identification Serial Number Implant [id number] Identification Lot Number Implant Access Closure Cr Bard:Peripheral Vasc Identification Aircraft Pneudraulic Systems Mechanic Name: Implant [id number] Identification Catalog Number Implant Size Implant Has an Yes Yes Expiration Date Implant Expiration 01/22/21 08/18/20 Date Wasted Radioactive Material Time Implanted Tissue Implant Continue for Tissue Implant Documentation Tissue Identification Number Graft Prep Per Aircraft Pneudraulic Systems Mechanic Instructions: Tissue Preparation Method: Reconstitution Solution: Reconstitution Solution Lot Number Reconstitution Solution Expiration Date: Thawing Solution Thawing Solution Lot Number Thawing Solution Expiration Date Preparation Materials, Other Preparation Materials, Other Lot Number Preparation Materials, Other Expiration Date Tissue Prepared/Processed By Aircraft Pneudraulic Systems Mechanic Paperwork Completed Implant Type Comment Last Modified By: Gia Armendariz RN Duncan, Richelle, RN 03/14/19 13:46:31 03/14/19 13:48:58 [facility] IntraOp Implant Log Audit 03/14/19 13:48:58 Bull Gang Worker: [id number] Modifier: [id number] <+> 2 Implant Identification Description <+> 2 Implant Identification Lot Number <+> 2 Implant Identification Aircraft Pneudraulic Systems Mechanic Name: <+> 2 Implant Expiration Date <+> 2 Implant Site <+> 2 Implant Quantity <+> 2 Implant Identification Catalog Number <+> 2 Implant Has an Expiration Date <+> 2 Type [facility] IntraOp Intraoperative Assessment Entry 1 Handoff [...] Modified By: Gia Armendariz RN 03/14/19 13:07:39 [facility] IntraOp Intraoperative Equipment Entry 1 Equipment Intraop Monitoring Electrocardiogram Three lead placement (ECG) Electrode Placement Blood Pressure Non-Invasive BP Device Source Blood Pressure Arm, right upper Location Pulse Oximeter Hand, left Probe Site Antiembolic Devices Scopes Photo/Video Documentation Last Modified By: Gia Armendariz RN 03/14/19 13:08:03 [facility] IntraOp Medication Admin Entry 1 Entry [...] Duncan, Richelle, RN 03/14/19 13:10:57 03/14/19 13:10:57 [facility] IntraOp Medication Admin Audit 03/14/19 13:58:22 Bull Gang Worker: [id number] Modifier: [id number] 1 <*> Dose 50 [facility] IntraOp Patient Positioning Entry 1 Procedure [...] Device Position UNP'S Positioned By JACKIE BLANTON MD-CAREN, KIERSTEN KHALIL RN, TONY PEÑA MD-JESUS Position Verified Positioning Yes Verified by Anesthesia Positioning Yes Verified by Surgeon Last Modified By: Gia Armendariz RN 03/14/19 13:11:17 [facility] IntraOp Sign In Entry 1 Patient, [...] Modified By: Gia Armendariz RN 03/14/19 13:11:29 [facility] IntraOp Sign Out Entry 1 RN [...] Sign Out Comment REPORT TO KAYLEN IN HIS RN Sign Out KIERSTEN KHALIL RN Signature [...] Modified By: Gia Armendariz RN 03/14/19 13:11:49 [facility] IntraOp Sign Out Audit 03/14/19 14:01:07 Bull Gang Worker: [id number] Modifier: [id number] <+> 1 Sign Out Comment <+> 1 RN Sign Out Signature Date/Time [facility] IntraOp Skin Prep Entry 1 Procedure Aortogram Abdominal with Runoff(Left) Prescribed N/A Pre-Surgical Prep Completed Prep Area LEFT ARM AND HAND TO AXILLA, BILATERAL GROINS, LEFT FOOT Intraop Prep Integumentary WDL Assessment WDL Prep Agents Chloraprep Prep by Gia Armendariz RN Hair Removal Methods No hair removal performed Last Modified By: Gia Armendariz RN 03/14/19 13:12:51 [facility] IntraOp Skin Prep Audit 03/14/19 13:29:16 Bull Gang Worker: [id number] Modifier: [id number] 1 <*> Prep Area LEFT ARM AND HAND TO AXILLA, BILATERAL GROINS 1 <*> Procedure Aortogram Abdominal with Runoff(Left) [facility] IntraOp Surgical Procedures Entry 1 Procedure [...] LEFT SUPERFICIAL FEMORAL ARTERY ANGIOPLASTY AND STENTING [facility] Intra Surgical Procedures Audit 03/14/19 14:07:58 Bull Gang Worker: [id number] Modifier: [id number] 1 <*> Stop 03/14/19 13:37:02 Bull Gang Worker: [id number] Modifier: [id number] 1 <*> Procedure Aortogram Abdominal with Runoff [...] L ACCESS W/ ULTRASOUND ACCESS 03/14/19 13:28:04 Bull Gang Worker: [id number] Modifier: [id number] 1 <*> Procedure Aortogram Abdominal with Runoff 1 <*> Additional Procedure Description LEFT RADIAL ACCESS UNDER ULTRASOUND GUIDANCE WITH LEFT UPPER EXTREMITY ANGIOGRAM, CATHETER PLACEMENT WITHIN AORTA; LEFT ACCESS UNDER ULTRASOUND GUIDANCE WITH [facility] IntraOP Time Out Entry 1 Procedure [...] Labeled and Displayed Last Modified By: Gia Armendariz, RN 03/14/19 13:16:01 [facility] IntraOp X-Ray and Images Entry 1 X-Ray/Imaging Type Fluoroscopy Fluoroscopy Type Fixed Site OPSITE Medicine Worker Name Coco Pfeiffer, Cardiovascular Grassland Conservationist Protective Devices Yes Used Exposure Time 6.6 MIN Last Modified By: Gia Armendariz RN 03/14/19 13:54:17 [facility] IntraOp X-Ray and Images Audit 03/14/19 13:54:17 Bull Gang Worker: [id number] Modifier: [id number] <+> 1 Exposure Time Case Comments <None> [...]
--- OUTSIDE RECORDS SUMMARY | 2024-11-05 10:52 | XMS_ITS | Encounter Summary ---
Author Organization [employer] ([place], [place], [place], [place]) Address [address] [place] [address] Care Team Providers Care Back Hoe Operator Name Role Phone Unavailable Primary Care Provider Unavailabl e Encounter Details Date Type Department Care Team (Late st Contact Info) Description 02/12/2019 Transcribed Document [facility] Radiology [address] [place] [address] Martinez Miller MD [address] [facility] [place] [address] Social History Tobacco Use Types Packs/Day Years [...] with large thigh collaterals with reconstitution of vogso-nmf-ohus popliteal artery. 3. Recanalization of occluded right common iliac artery and placement of an 8 x 38 [employer] within the proximal right common with a kissing 8 x 27 left common iliac artery stent. 4. Distal right common iliac artery was treated with an 8 x 38 stent, and right external iliac artery occlusion was treated with a 7 x 39 Crawford VBX. OPERATIVE DESCRIPTION: The patient was taken back to the operating room, placed in a supine on the operating room table. Following IV sedation, bilateral groins were widely prepped and draped in a standard sterile fashion. Time-out was taken. Under ultrasound guidance, left common femoral artery was accessed with a Micropuncture needle. A 5-Citizen Of [place] sheath was placed. Flush catheter was advanced [...] with snare technique was used and a 7-Citizen [place] sheath was advanced into the craig aorta from the right femoral artery to [...] was treated with a 7 x 39 Crawford VBX stent. Excellent results were achieved upon completion. Normal pulsatile flow was present within the right common femoral artery. Mynx closure device was used bilaterally. The patient was then taken back to Recovery in stable condition. No complications. /[id number] MD FARHAN NguyenA/BRIANNA / NNA / MODL /[id number] documented in this encounter Plan of Treatment Not on file documented as of this encounter Visit Diagnoses Not on filedocumented in this encounter
--- OUTSIDE RECORDS SUMMARY | 2024-11-05 10:52 | XMS_ITS | Encounter Summary ---
Author Organization [employer] ([place], [place], [place], [place]) Address [address] [place] [address] Care Team Providers Care Services Manager Name Role Phone Unavailable Primary Care Provider Unavailabl e Encounter Details Date Type Department Care Team (Late st Contact Info) Description 03/13/[address] [facility] [place] [facility] [place] [address] ProviderRegina [place] [facility] [place] [address] Social History Tobacco Use Types [...] - Historical ProviderMD - 03/13/2019 1:53 PM PRESCHOOL ASSISTANT PRINCIPAL PAT Adult Entered On: 03/13/2019 13:59 EST Performed On: 03/13/2019 13:53 EST by Susie Hernández RN Height and Weight, Clinical Dosing Height Source : Measured Height Entry Format : [place] Height, Feet : 0 ft(Converted to: 0 cm, 0 Inch) Height, Inches : 63 Inch(Converted to: 5 ft 3 Inch, 160.02 cm) Clinical Height : 160.02 cm Weight Source : Standing scale Weight Entry Format : [place] Clinical Dosing Weight : 85.95 kg Weight, Pounds : 189.1 lb Body Surface Area (BSA) : 1.89 m2 Body Mass Index : 33.6 kg/m2 (HI) [place] Body Weight : 52 kg Susie Hernández RN - 03/14/2019 11:07 EST Health Histories Smoking Status : Former smoker, quit more than 30 days ago Smokeless Tobacco Status : Never Implant/Device Type, Gas Operations Superintendent and Model : neck fusion and lumbar [...] Susie Hernández RN - 03/13/2019 13:53 EST [place] Suicide Severity Rating Scale (C-SSRS) CSSRS Past [...] Jodi Support Person/Pt Rep Name : Christine rodasgila [phone] Want Family/Rep/Phys Notified of Admit : No Emergency Contact #1 : see above Emergency Contact #1 Phone Number : . Emergency Contact #1 Relationship : . Emergency Contact #2 : . Emergency Contact #2 Phone Number : .. Emergency Contact #2 Relationship : . Information Obtained From : Patient Primary Language : Irish Preferred Communication Mode : Verbal Communication Barrier [...]
--- OUTSIDE RECORDS SUMMARY | 2024-11-05 10:52 | XMS_ITS | Encounter Summary ---
Author Organization [email or web address] ([place], [place], [place], [place]) Address [address] [place] [address] Care Team Providers Care Grouter Helper Name Role Phone Unavailable Primary Care Provider Unavailabl e Encounter Details Date Type Department Care Team (Late st Contact Info) Description 03/14/2019 Transcribed Document [facility] [place] [address] [place] [address] ProviderRegina MD [address] [place] [address] Social History Tobacco Use Types [...] Regina Henley MD - 03/14/2019 4:15 PM STEAMER GUM CANDY Patient Education Materials Follows: Moderate Conscious Sedation, [...] you are awake and alert. ??? Take fvpk-qxj-ivehbdv and prescription medicines only as told by [...] 01/30/2014 Document Revised: 09/13/2016 Document Reviewed: 07/31/2016 [employer] Interactive Patient Education ? 2019 [employer] Angiogram, Care After This sheet gives [...] and water are not available, use hand sports equipment racker. ? Change your dressing as told by [...] contrast dye from your body. ??? Take kqoz-kyp-zbzoove and prescription medicines only as told by [...] 10/28/2005 Document Revised: 03/16/2017 Document Reviewed: 03/16/2017 [employer] Interactive Patient Education ? 2019 [employer] Angiogram An angiogram is a procedure [...] including vitamins, herbs, eye drops, creams, and oyqh-wzc-laplssv medicines. ??? Any problems you or family [...] 01/19/2006 Document Revised: 08/16/2017 Document Reviewed: 05/18/2017 [employer] Interactive Patient Education ? 2019 [employer] Cardiovascular Intermittent Claudication Intermittent claudication is [...] calories. Consider working with a diet and swine nutritionist (dietitian) to help you make healthy [...] blood pressure, or high cholesterol. ??? Take wbvu-fpo-zplqlyd and prescription medicines only as told by [...] 02/11/2005 Document Revised: 05/12/2017 Document Reviewed: 05/12/2017 [employer] Interactive Patient Education ? 2019 [employer] Peripheral Vascular Disease Peripheral vascular disease [...] activities for you. General instructions ??? Take xfyi-emw-mxkhdwi and prescription medicines only as told by [...] 05/19/2005 Document Revised: 05/19/2017 Document Reviewed: 05/19/2017 [employer] Interactive Patient Education ? 2019 [employer] documented in this encounter Plan of Treatment Not on file documented as of this encounter Visit Diagnoses Not on filedocumented in this encounter
--- OUTSIDE RECORDS SUMMARY | 2024-11-05 10:53 | XMS_ITS | Encounter Summary ---
Author Organization [employer] ([place], [place], [place], [place]) Address [address] [place] [address] Care Team Providers Care Black Off Worker Name Role Phone Unavailable Primary Care Provider Unavailabl e Encounter Details Date Type Department Care Team (Late st Contact Info) Description 03/14/2019 Transcribed Document [facility] Radiology [address] [place] [address] Martinez Miller MD [address] [facility] [place] [address] Social History Tobacco Use Types Packs/Day Years [...] : 1955 Associated Diagnoses: None Author: CHRIS LOVING APRN Chief Complaint PAD Review of Systems ROS [...] skin and nails, Oral, Daily, 0 Refill(s) [place] 7.5 mg-325 mg oral tablet: 1 Tab, [...] Medication hair, skin and nails, Oral, Daily [place] 7.5 mg-325 mg oral tablet 1 Tab, [...] Problems Cervical spinal stenosis / SNOMED CT 260529766 / Confirmed Smoker / SNOMED CT 958514951 / Confirmed Sinusitis / SNOMED CT 16683809 / Confirmed Seasonal allergies / SNOMED CT 692866174 / Confirmed Restless leg / SNOMED CT 06332894 / Confirmed Colon polyps / SNOMED CT 391281248 / Confirmed Pneumonia / SNOMED CT 132024671 / Confirmed Peripheral vascular disease / SNOMED CT 2000554971 / Confirmed Peptic ulcer / SNOMED CT 35717436 / Confirmed Osteoporosis / SNOMED CT 050849861 / Confirmed Neuropathy, R arm / SNOMED CT 7265591042 / Confirmed Migraines / SNOMED CT 91277416 / Confirmed Skin cancer / SNOMED CT 2897517706 / Confirmed Hypertension / SNOMED CT 2342550159 / Confirmed Hyperlipidemia / SNOMED CT 61688003 / Confirmed Elevated cholesterol / SNOMED CT 76718118 / Confirmed Hiatal hernia / SNOMED CT 021637391 / Confirmed Hemorrhoids / SNOMED CT 118537080 / Confirmed H/O: TIA / SNOMED CT 319691612 / Confirmed GERD (gastroesophageal reflux disease) / SNOMED CT 353793349 / Confirmed Gastritis / SNOMED CT 0746290 / Confirmed Fibromyalgia / SNOMED CT 82854304 / Confirmed Fibroids / SNOMED CT 550987241 / Confirmed Endometriosis / SNOMED CT 4548162181 / Confirmed Diverticulitis / SNOMED CT 621636675 / Confirmed Sinus problem / SNOMED CT 0261259532 / Confirmed Known medical problems / SNOMED CT 694196155 / Confirmed white spots on MRI Known medical problems / SNOMED CT 833491957 / Confirmed anti nuclear A and A antibodies Constipation / SNOMED CT 77882489 / Confirmed COPD (chronic obstructive pulmonary disease) / SNOMED CT 29177627 / Confirmed Chronic cough / SNOMED CT 432101076 / Confirmed Chronic constipation / SNOMED CT 730568689 / Confirmed Stroke, possible / SNOMED CT 580527309 / Confirmed Bursitis / SNOMED CT 204391529 / Confirmed Bronchitis / SNOMED CT 49345400 / Confirmed Back pain / SNOMED CT 502944170 / Confirmed At risk for sleep apnea / IMO 79496723 / Confirmed Arthritis / SNOMED CT 2790126 / Confirmed Anemia / SNOMED CT 245972771 / Confirmed Allergic rhinitis / SNOMED CT 543683511 / Confirmed, Active Problems (40) Allergic rhinitis [...] EST Height Source Measured Height Entry Format [place] Height/Length, ALBANIAN (ft) 0 ft Height/Length ALBANIAN 63 Inch CLINICALHEIGHT 160.02 cm E[place] Body Weight 52 kg Weight Source Standing scale Weight Entry Format [place] Weight Italian lb 189.1 lb CLINICALWEIGHT 85.95 kg Body [...] LLE weakness, uses cane. Integumentary: Warm, Dry, Bruni. Neurologic: Alert, Oriented. Psychiatric: Cooperative, Appropriate mood [...]
--- OUTSIDE RECORDS SUMMARY | 2024-11-05 10:53 | XMS_ITS | Clinical Summary ---
Author Organization [employer] ([place], [place], [place], [place]) Address [address] [place] [address] Care Team Providers Care Research Kennel Supervisor Name Role Phone Unavailable Primary Care Provider Unavailabl e Social History Tobacco Use Types Packs/Day Years Used Date Smoking Tobacco: Never Assessed Food Insecurity Answer Date Recorded Food run [...] Date Mathew rded Speak language other than Samoan at home Not on file 05/13/2023 Want help with school or training Not on file 05/13/2023 Substance Use Answer Date Recorded Used [...] 2 - PCV) 09/29/2016 09/30/2015 COVID-19 VACCINE (5 - 2023-2 5 season) 2023 02/24/2022, 04/01/2021, 08/06/2020, Additional history exists Falls Risk Screening 04/25/2024 Influenza Vaccine (#1) 2024 , 01/23/2019, 01/23/2019 DTAP/TDAP/TD VACCINES (2 - T d or Tdap) 06/29/2025 06/30/2015 Respiratory Syncytial Virus (RSV) Adult or (1 - 1-dose 75+ series) 2028
--- OUTSIDE RECORDS SUMMARY | 2024-11-05 10:53 | XMS_ITS | Encounter Summary ---
Author Organization [employer] ([place], [place], [place], [place]) Address [address] [place] [address] Care Team Providers Care Mannequin Molder Name Role Phone Unavailable Primary Care Provider Unavailabl e Encounter Details Date Type Department Care Team (Late st Contact Info) Description 03/14/2019 Transcribed Document [facility] Radiology [address] [place] [address] Martinez Miller MD [address] [facility] [place] [address] Social History Tobacco Use Types Packs/Day Years [...] allow for placement and advancement of a 6-Danish sheath. 3. Catheter placement within the aorta. 4. Aortography demonstrating patency of bilateral common iliac artery stents. 5. Inability to access the occluded left superficial femoral artery through an antegrade fashion. 6. Successful recanalization of occluded superficial femoral artery through pedal access and placement of a 5 x170 LifeStent. OPERATIVE DESCRIPTION: The patient was taken back to the labor supervisor and placed in supine position. Following IV [...] Attempts to advance a radio to peripheral 6-Danish sheath was performed, fortunately successful. This got [...] successfully with a micropuncture wire. A low-profile 6-Danish sheath was placed. Left lower extremity angiogram [...] Recovery in stable condition. No immediate complications. /[id number] Martinez Miller MD NNA/AQ / NNA / MODL /[id number] documented in this encounter Plan of Treatment Not on file documented as of this encounter Visit Diagnoses Not on filedocumented in this encounter
--- OUTSIDE RECORDS SUMMARY | 2024-11-05 10:53 | XMS_ITS | Encounter Summary ---
Author Organization [employer] ([place], [place], [place], [place]) Address [address] [place] [address] Care Team Providers Care Wire Tester Name Role Phone Unavailable Primary Care Provider Unavailabl e Encounter Details Date Type Department Care Team (Late st Contact Info) Description 03/14/2019 Transcribed Document [facility] [place] Family Medicine [address] [place] [address] ProviderRegina MD [facility] [place] [id number] Social History Tobacco Use Types Packs/Day Years Used Date Smoking Tobacco: Never Assessed Comments Unknown Sex and Gender Information Value Date Recorded Sex Assigned at Not on file Legal Sex Female 5:00 PM CDT Gender Identity Not on file Sexual Orientation Not on file documented as of this encounter Miscellaneous Notes * [employer] Conversion Note - Historical ProviderMD - 03/14/2019 4:16 PM AUTO TECHNICIAN Nursing Discharge Summary Entered On: 03/14/2019 16:19 [...] 03/14/2019 16:16 EST Electronically signed by Mickey [facility] Conversion Poultry Farm Worker Cerner at 08/13/2022 11:21 AM CDT documented in this encounter Plan of Treatment Not on file documented as of this encounter Visit Diagnoses Not on filedocumented in this encounter
--- OUTSIDE RECORDS SUMMARY | 2024-11-05 10:54 | XMS_ITS | Encounter Summary ---
Author Organization [employer] ([place], [place], [place], [place]) Address [address] [place] [address] Care Team Providers Care Technical Administrator Name Role Phone Unavailable Primary Care Provider Unavailabl e Encounter Details Date Type Department Care Team (Late st Contact Info) Description 02/12/2019 Transcribed Document [facility] [place] [facility] [address] ProviderRegina MD [facility] [place] [address] Social History Tobacco Use Types [...] Regina ProviderMD - 02/12/2019 2:12 PM CDT [facility] Main OR Preop Summary Primary Physician: TONY PEÑA MD-SUR Finalized Date/Time: 02/12/19 18:38:33 Pt. Name: THOMAS GTZ SRIRAM Reynolds/Sex: 1955 Female Med Rec #: [id number] Physician: TONY PEÑA MD-SUR Financial #: [id number] Pt. Type: O Room/Bed: HIS/11 Admit/Disch: 02/12/19 09:27:00 - 02/12/19 18:10:00 Institution: [facility] PreOp Case Times Entry 1 In Preop 02/12/19 09:40:00 Ready for Holding n/a Room Patient Ready for 02/12/19 11:13:00 Surgery Patient Out of Preop 02/12/19 13:49:00 Patient Out of n/a Holding Room Last Modified By: SHAHLA GOODMAN RN 02/12/19 18:38:24 Finalized By: SHAHLA GOODMAN, RN Document Signatures Signed By: SHAHLA GOODMAN RN 02/12/19 18:38 Electronically signed by Mickey [facility] Conversion Service Member Cerner at 08/13/2022 11:16 AM CDT documented in this encounter Plan of Treatment Not on file documented as of this encounter Visit Diagnoses Not on filedocumented in this encounter
--- OUTSIDE RECORDS SUMMARY | 2024-11-05 10:54 | XMS_ITS | Referral Summary ---
Author Organization [employer] ([place], [place], [place], [place]) Address [address] [place] [address] Care Team Providers Care Patcher Helper Name Role Phone Unavailable Primary Care [...] Date Mathew rded Speak language other than Faroese at home Not on file 05/13/2023 Want [...]
--- OUTSIDE RECORDS SUMMARY | 2024-11-05 10:54 | XMS_ITS | Encounter Summary ---
Author Organization [employer] ([place], [place], [place], [place]) Address [address] [place] [address] Care Team Providers Care Shoe Parts Molder Name Role Phone Unavailable Primary Care Provider Unavailabl e Encounter Details Date Type Department Care Team (Late st Contact Info) Description 02/12/2019 Transcribed Document [facility] [place] Family Medicine [facility] [place] [address] ProviderRegina MD [address] [place] [address] Social History Tobacco Use Types Packs/Day Years Used Date Smoking Tobacco: Never Assessed Comments Unknown Sex and Gender Information Value Date Recorded Sex Assigned at Not on file Legal Sex Female 5:00 PM CDT Gender Identity Not on file Sexual Orientation Not on file documented as of this encounter Miscellaneous Notes * [employer] Conversion Note - Regina Henley MD - 02/12/2019 3:39 PM CDT Nursing Discharge [...] 02/12/2019 15:39 EDT Electronically signed by Mickey [facility] Conversion Primary Substance Abuse Counselor Cerner at 08/13/2022 11:19 AM CDT documented in this encounter Plan of Treatment Not on file documented as of this encounter Visit Diagnoses Not on filedocumented in this encounter
--- OUTSIDE RECORDS SUMMARY | 2024-11-05 10:54 | XMS_ITS | Encounter Summary ---
Author Organization [employer] ([place], [place], [place], [place]) Address [address] [place] [address] Care Team Providers Care End Finder Twisting Department Name Role Phone Unavailable Primary Care Provider Unavailabl e Encounter Details Date Type Department Care Team (Late st Contact Info) Description 02/12/2019 Transcribed Document [facility] [place] Family Medicine [facility] [place] [address] ProviderRegina MD [facility] [place] [address] Social History Tobacco Use Types [...] Regina ProviderMD - 02/12/2019 2:12 PM CDT [facility] Main OR IntraOp Summary Primary Physician: TONY PEÑA MD-SUR Finalized Date/Time: 02/13/19 11:43:16 Pt. Name: JODI GTZ SRIRAM Reynolds/Sex: 1955 Female Med Rec #: [id number] Physician: TONY PEÑA MD-SUR Financial #: [id number] Pt. Type: O Room/Bed: /11 Admit/Disch: 02/12/19 09:27:00 - 02/12/19 18:10:00 Institution: [facility] IntraOp Case Attendance Entry 1 Entry 2 Entry 3 Case Attendee TONY PEÑA MD-SUR Napier, Elizabeth A, RN Murphy, Whitney, [employer] Role Performed Surgeon/Proceduralist, Plodding Operator, First Loan Underwriter First Time In 02/12/19 13:51:00 02/12/19 13:51:00 [...] Case Attendee Coco Pfeiffer CALDWELL, JOSEPH A, ROMARIO COWAN MD-ANS Cardiovascular Loan Underwriter Role Performed Loan Underwriter CUSTOMER SUPPORT EXECUTIVE/Nurse Plugger Man Anesthesiologist of Record Time In 02/12/19 13:51:00 [...] Lexus Linda, Martha Zamora RN Role Performed Plodding Operator, First Plodding Operator, Second Time In 02/12/19 14:55:00 02/12/19 13:51:00 Time Out 02/12/19 15:09:00 02/12/19 15:09:00 Procedure Aortogram Abdominal Aortogram Abdominal with Runoff(Right), with Runoff(Right), Arterial Stent Arterial Stent Endovascular(Right) Endovascular(Right) Other Attendee Superficial Wound Closed By: Last Modified By: Lexus Linda, Rn Adilene Dhillon RN 02/12/19 15:50:49 02/13/19 07:01:08 [facility] IntraOp Case Attendance Audit 02/13/19 07:01:21 [employer] Program Coordinator: JONN Modifier: EANAPIER 8 <*> Procedure Aortogram Abdominal with Runoff(Right), Arterial Stent Endovascular(Right) 02/13/19 07:01:08 After School Program Coordinator: JONN Modifier: EANAPIER 1 <*> Procedure Aortogram [...] with Runoff(Right), Arterial Stent Endovascular(Right) 02/13/19 07:01:03 After School Program Coordinator: MEDARDO Modifier: EANAPIER 2 <*> Time Out 02/12/19 15:09:00 2 <*> Procedure Aortogram Abdominal with Runoff(Right), Arterial Stent Endovascular(Right) <+> 8 Case Attendee <+> 8 Role Performed <+> 8 Procedure 02/12/19 15:53:28 After School Program Coordinator: SUSANSLOAN Modifier: SUSANSLOAN 7 <*> Time In 02/12/19 15:55:00 7 <*> Procedure Aortogram Abdominal with Runoff(Right), Arterial Stent Endovascular(Right) 02/12/19 15:51:08 After School Program Coordinator: SUSANSLOAN Modifier: SUSANSLOAN 7 <*> Procedure Arterial Stent Endovascular(Right) 02/12/19 15:50:49 After School Program Coordinator: SUSANSLOAN Modifier: SUSANSLOAN 7 <*> Time Out 02/12/19 15:48:00 7 <*> Procedure Arterial Stent Endovascular(Right) 02/12/19 15:50:15 After School Program Coordinator: SUSANSLOAN Modifier: SUSANSLOAN 7 <+> Role Performed 7 <*> Procedure Arterial Stent Endovascular(Right) 02/12/19 15:49:22 After School Program Coordinator: EANAPIER Modifier: SUSANSLOAN 1 <+> Time Out [...] Time Out <+> 7 Procedure 02/12/19 14:50:28 After School Program Coordinator: EANAPIER Modifier: EANAPIER 1 <*> Procedure Aortogram Abdominal with Runoff(Right) 2 <*> Procedure Aortogram Abdominal with Runoff(Right) 3 <*> Procedure Aortogram Abdominal with Runoff(Right) 4 <*> Procedure Aortogram Abdominal with Runoff(Right) 5 <*> Procedure Aortogram Abdominal with Runoff(Right) 6 <*> Procedure Aortogram Abdominal with Runoff(Right) 02/12/19 14:30:54 After School Program Coordinator: EANAPIER Modifier: EANAPIER 1 <*> Procedure Aortogram Abdominal with Runoff(Right) 2 <*> Procedure Aortogram Abdominal with Runoff(Right) 3 <*> Procedure Aortogram Abdominal with Runoff(Right) 4 <*> Procedure Aortogram Abdominal with Runoff(Right) 5 <*> Procedure Aortogram Abdominal with Runoff(Right) 6 <+> Time In 6 <*> Procedure Aortogram Abdominal with Runoff(Right) 02/12/19 14:24:03 After School Program Coordinator: EANAPIER Modifier: EANAPIER 1 <*> Case Attendee TONY PEÑA MD-JESUS 1 <*> Role Performed Surgeon/Proceduralist, First 1 <*> Time In 02/12/19 13:51:00 1 <*> Procedure Aortogram Abdominal with Runoff(Right) 2 <*> Case Attendee Adilene Dhillon RN 2 <*> Role Performed Plodding Operator, First 2 <*> Time In 02/12/19 13:51:00 2 <*> Procedure Aortogram Abdominal with Runoff(Right) 3 <*> Case Attendee Mayra Castrejon, [employer] 3 <*> Role Performed Loan Underwriter 3 <*> Time In 02/12/19 13:51:00 3 <*> Procedure Aortogram Abdominal with Runoff(Right) 4 <*> Case Attendee Coco Pfeiffer, Cardiovascular Loan Underwriter 4 <*> Role Performed Loan Underwriter 4 <*> Time In 02/12/19 13:51:00 4 <*> Procedure Aortogram Abdominal with Runoff(Right) 5 <*> Case Attendee EVERETT FREED CUSTOMER SUPPORT EXECUTIVE 5 <*> Role Performed CUSTOMER SUPPORT EXECUTIVE/Nurse Plugger Man 5 <*> Time In 02/12/19 13:51:00 5 <*> Procedure Aortogram Abdominal with Runoff(Right) Entry 6 was deleted. Higher numbered entries shifted one position to fill the gap. <-> 6 Case Attendee MUSTAPHA DUTTON MD-ANS <-> 6 Role Performed Anesthesiologist of Record <-> 6 Time In 02/12/19 13:51:00 <-> 6 Procedure Aortogram Abdominal with Runoff(Right) 02/12/19 14:15:54 After School Program Coordinator: EANAPILUIS Modifier: EANAPIER <+> 1 Procedure 2 <+> Time In 2 <*> Procedure Aortogram Abdominal with Runoff(Right) 3 <+> Time In 3 <*> Procedure Aortogram Abdominal with Runoff(Right) 4 <+> Time In 4 <*> Procedure Aortogram Abdominal with Runoff(Right) 5 <+> Time In 5 <*> Procedure Aortogram Abdominal with Runoff(Right) 6 <+> Time In 6 <*> Procedure Aortogram Abdominal with Runoff(Right) 02/12/19 14:13:18 After School Program Coordinator: HARSHPILUIS Modifier: EANAPIER <+> 2 Case Attendee <+> 2 Role Performed <+> 2 Procedure <+> 3 Case Attendee <+> 3 Role Performed <+> 3 Procedure <+> 4 Case Attendee <+> 4 Role Performed <+> 4 Procedure <+> 5 Case Attendee <+> 5 Role Performed <+> 5 Procedure <+> 6 Case Attendee <+> 6 Role Performed <+> 6 Procedure [facility] IntraOp Case Times Entry 1 Patient In Room Time 02/12/19 13:51:00 Out Room Time 02/12/19 15:09:00 Anesthesia Start Time 02/12/19 13:51:00 Stop Time 02/12/19 15:09:00 Surgery / Procedure Times Start Time 02/12/19 14:12:00 Stop Time 02/12/19 15:00:00 Last Modified By: Lexus Linda Rn 02/12/19 15:21:58 [facility] IntraOp Case Times Audit 02/12/19 15:21:58 After School Program Coordinator: JONN Modifier: MEDARDO <+> 1 Out Room Time <+> 1 Stop Time <+> 1 Stop Time 02/12/19 14:11:48 After School Program Coordinator: HARSHPILUIS Modifier: EANAPIER <+> 1 Start Time [facility] IntraOp Communication Entry 1 Communication To Family/Significant other Comment START Date and Time 02/12/19 14:13:00 Last Modified By: Adilene Dhillon RN 02/12/19 14:12:21 [facility] IntraOp Departure from OR Entry 1 Integumentary Assessment Integumentary WDL Assessment WDL Transfer/Handoff Transfer to Other Handoff Method Phone call Post-op Transport Stretcher/[facility] Via Patient Transport Lexus Linda Rn Accompanied by Transfer/Handoff [place] [facility] [facility] [place] Last Modified By: Lexus Linda Rn 02/12/19 15:48:30 General Comments: CALLED TO Arthur Gonzalez NURSE [facility] IntraOp Departure from OR Audit 02/12/19 15:49:29 After School Program Coordinator: MEDRADO Modifier: MEDARDO <+> 1 Patient Transport Accompanied by [facility] IntraOp Dressing and Packing Entry 1 Type Dressing Location OPSITE Wound Dressing Item 4x4's Applied By TONY PEÑA MD-JESUS Other Comments [email or web address] Last Modified By: Adilene Dhillon RN 02/12/19 14:09:39 [facility] IntraOp Fire Risk Assessment Entry [...] Modified By: Adilene Dhillon RN 02/12/19 14:09:55 [facility] IntraOp Fire Risk Assessment Audit 02/12/19 14:13:31 After School Program Coordinator: HARSHPILUIS Modifier: EANAPIER <+> 1 Fire Risk Assessment Verified By <+> 1 Fire Risk Assessment Verified Date/Time 02/12/19 14:12:26 After School Program Coordinator: EASTEPHANIEPILUIS Modifier: EANAPIER 1 <-> Fire Risk Assessment Verified 02/12/19 14:10:00 Date/Time [facility] IntraOp General Case Dental Hygiene Instructor 1 Case Information OR OR 20 [facility] Case Level 1 Room Verified Yes Wound Class I - Clean Specialty SN Endovascular Anesthesia Type MAC ASA Class 3 Diagnosis Preop Diagnosis BILATERAL LOWER EXTREMITY CLAUDICATION Postop Same As Preop No Postop Diagnosis SEE MD NOTE Last Modified By: Adilene Dhillon RN 02/12/19 14:13:47 [facility] IntraOp General Case Data Audit 02/12/19 14:20:37 After School Program Coordinator: JONN Modifier: EANAPIER <+> 1 Preop Diagnosis [facility] IntraOp Implant Log Entry 1 Entry 2 Entry 3 Type Implant (Synthetic) Implant (Synthetic) Implant (Synthetic) Implant Log Implant Type Other Tissue Implant Type Implant STENT LS EXP VASC CVR [id number] STENT LS EXP VASC CVR Identification [id number] Description Implant Quantity 1 1 1 Implant Site LEFT COMMON ILIAC ARTERY RIGHT COMMON ILIAC RIGHT COMON ILIAC ARTERY ARTERY Implant [id number] Identification Model Number Implant Identification Serial Number Implant [id number] Identification Lot Number Implant Cr Bard:Peripheral Vasc Cr Bard:Peripheral Vasc Identification Deep Submergence Vehicle Crewmember Name: Implant [id number] Identification Catalog Number Implant Size 7.9 X 24.6 MM 7.9 X 37 MM Implant Has an Yes Yes Yes Expiration Date Implant Expiration 07/23/21 11/22/21 11/22/21 Date Wasted Radioactive Material Time Implanted Tissue Implant Continue for Tissue Implant Documentation Tissue Identification Number Graft Prep Per Deep Submergence Vehicle Crewmember Instructions: Tissue Preparation Method: Reconstitution Solution: Reconstitution Solution Lot Number Reconstitution Solution Expiration Date: Thawing Solution Thawing Solution Lot Number Thawing Solution Expiration Date Preparation Materials, Other Preparation Materials, Other Lot Number Preparation Materials, Other Expiration Date Tissue Prepared/Processed By Deep Submergence Vehicle Crewmember Paperwork Completed Implant Type Comment Last Modified By: Adilene Dhillon RN Napier, Elizabeth A, RN Sloan, Susan, Rn 02/12/19 14:37:35 02/12/19 14:39:27 02/12/19 15:46:28 Entry 4 Entry 5 Entry 6 Type Implant (Synthetic) Implant (Synthetic) Implant (Synthetic) Implant Log Implant Type Other Tube(s) Other Tissue Implant Type Implant STNT BLLN ENDO VBX DEVICE MYNX DEBT COLLECTION SPECIALIST 6F/ 7F DEVICE MYNX DEBT COLLECTION SPECIALIST 6F/ 7F Identification [id number] Description Implant Quantity 1 1 1 Implant Site RIGHT EXTERNAL ILIAC RIGHT FEMORAL LEFT FEMORAL ARTERY ARTERY Implant [id number] Identification Model Number Implant [id number] Identification Serial Number Implant [id number] Identification Lot Number Implant [employer] [place] [employer]:Med Prdt Access Closure Access Closure Identification Deep Submergence Vehicle Crewmember Name: Implant [id number] Identification Catalog Number Implant Size Implant Has an Yes Yes Yes Expiration Date Implant Expiration 07/29/21 01/22/21 01/22/21 Date Wasted Radioactive Material Time Implanted Tissue Implant Continue for Tissue Implant Documentation Tissue Identification Number Graft Prep Per Deep Submergence Vehicle Crewmember Instructions: Tissue Preparation Method: Reconstitution Solution: Reconstitution Solution Lot Number Reconstitution Solution Expiration Date: Thawing Solution Thawing Solution Lot Number Thawing Solution Expiration Date Preparation Materials, Other Preparation Materials, Other Lot Number Preparation Materials, Other Expiration Date Tissue Prepared/Processed By Deep Submergence Vehicle Crewmember Paperwork Completed Implant Type Comment Last Modified By: Lexus Linda Rn Sloan, Susan, Rn Sloan, Susan, Rn 02/12/19 15:46:28 02/12/19 15:46:28 02/12/19 15:46:28 [facility] IntraOp Implant Log Audit 02/12/19 15:46:28 After School Program Coordinator: JONN Meng: MEDARDO 1 <*> Implant Identification Description STENT LS EXP VASC CVR [id number] <+> 3 Implant Identification Description <+> 3 Implant Identification Lot Number <+> 3 Implant Identification Deep Submergence Vehicle Crewmember Name: <+> 3 Implant Expiration Date <+> 3 Implant Site <+> 3 Implant Quantity <+> 3 Implant Identification Catalog Number <+> 3 Implant Type <+> 3 Implant Identification Model Number <+> 3 Implant Has an Expiration Date <+> 3 Type <+> 4 Implant Identification Description <+> 4 Implant Identification Serial Number <+> 4 Implant Identification Deep Submergence Vehicle Crewmember Name: <+> 4 Implant Expiration Date <+> 4 Implant Site <+> 4 Implant Quantity <+> 4 Implant Identification Catalog Number <+> 4 Implant Type <+> 4 Implant Identification Model Number <+> 4 Implant Has an Expiration Date <+> 4 Type <+> 5 Implant Identification Description <+> 5 Implant Identification Lot Number <+> 5 Implant Identification Deep Submergence Vehicle Crewmember Name: <+> 5 Implant Expiration Date <+> 5 Implant Site <+> 5 Implant Quantity <+> 5 Implant Identification Catalog Number <+> 5 Implant Type <+> 5 Implant Identification Model Number <+> 5 Implant Has an Expiration Date <+> 5 Type <+> 6 Implant Identification Description <+> 6 Implant Identification Deep Submergence Vehicle Crewmember Name: <+> 6 Implant Expiration Date <+> 6 Implant Site <+> 6 Implant Quantity <+> 6 Implant Identification Catalog Number <+> 6 Implant Type <+> 6 Implant Identification Model Number <+> 6 Implant Has an Expiration Date <+> 6 Type 02/12/19 14:39:27 After School Program Coordinator: JONN Modifier: JONN <+> 2 Implant Identification Description <+> 2 Implant Identification Lot Number <+> 2 Implant Size <+> 2 Implant Expiration Date <+> 2 Implant Site <+> 2 Implant Quantity <+> 2 Implant Has an Expiration Date <+> 2 Type [facility] IntraOp Intraoperative Assessment Entry 1 [...] Modified By: Adilene Dhillon RN 02/13/19 06:58:24 [facility] IntraOp Intraoperative Assessment Audit 02/13/19 06:58:24 After School Program Coordinator: EANAPIER Modifier: EANAPIER 1 <*> Skin Assessment Verified Yes 1 <+> Handoff Method [facility] IntraOp Intraoperative Equipment Entry 1 Type Monitoring Equipment Intraop Monitoring Electrocardiogram Three lead placement (ECG) Electrode Placement Blood Pressure Non-Invasive BP Device Source Blood Pressure Arm, right upper Location Pulse Oximeter Hand, left Probe Site Antiembolic Devices Scopes Photo/Video Documentation Last Modified By: Adilene Dhillon RN 02/12/19 14:15:38 [facility] IntraOp Medication Admin Entry 1 Entry 2 Entry 3 Medication/Irrigant CESAR VISIPAQUE 320MG 150 lidocaine 1% 50ml vial CEASR NACL 0.9PCT HPRN 200ML --[id number] - [id number] 1000U .5L --[id number] Combo Med List Time Administered Route of [...] RN 02/12/19 14:14:13 02/12/19 14:14:13 02/12/19 14:14:13 [facility] IntraOp Medication Admin Audit 02/13/19 06:57:26 After School Program Coordinator: EANAPIER Modifier: EANAPIER <+> 1 Dose [facility] IntraOp Patient Positioning Entry 1 [...] Modified By: Adilene Dhillon RN 02/13/19 06:59:18 [facility] IntraOp Patient Positioning Audit 02/13/19 06:59:18 After School Program Coordinator: JONN Modifier: EANAPIER 1 <*> Procedure Aortogram Abdominal with Runoff(Right), Arterial Stent Endovascular(Right) 1 <*> Positioning Devices Head Rest, Safety Strap, Thighs, Sled Arm Rest 1 <*> Positioned By TONY PEÑA MD-JESUS 02/12/19 14:50:30 After School Program Coordinator: HARSHPIER Modifier: EANAPIER 1 <*> Procedure Aortogram Abdominal with Runoff(Right) [facility] IntraOp Sign In Entry 1 [...] Modified By: Adilene Dhillon RN 02/12/19 14:14:44 [facility] IntraOp Sign Out Entry 1 [...] Modified By: Adilene Dhillon RN 02/12/19 14:15:04 [facility] IntraOp Sign Out Audit 02/12/19 15:49:49 After School Program Coordinator: JONN Modifier: JOHNAN <+> 1 RN Sign Out Signature Date/Time 02/12/19 14:16:46 After School Program Coordinator: JONN Modifier: EANAPIER 1 <*> Urinary Catheter Documented in IView N/A [facility] IntraOp Skin Prep Entry 1 Procedure Aortogram Abdominal with Runoff(Right), Arterial Stent Endovascular(Right) Prescribed N/A Pre-Surgical Prep Completed Prep Area BILATERAL GROINS Intraop Prep Integumentary WDL Assessment WDL Prep Agents Chloraprep Prep by Adilene Dhillon RN Hair Removal Methods No hair removal performed Last Modified By: Adilene Dhillon RN 02/12/19 14:13:55 [facility] IntraOp Skin Prep Audit 02/12/19 14:50:30 After School Program Coordinator: JONN Modifier: EANAPIER 1 <*> Procedure Aortogram Abdominal with Runoff(Right) [facility] IntraOp Surgical Procedures Entry 1 Entry [...] Elizabeth A, RN 02/13/19 07:00:03 02/12/19 14:50:24 [facility] IntraOp Surgical Procedures Audit 02/13/19 07:00:03 After School Program Coordinator: MEDARDO Modifier: EANAPIER 1 <*> Procedure Aortogram Abdominal with Runoff 1 <*> Additional Procedure Description (AORTOGRAM WITH RT LEG REVASCULARIZATION) 02/12/19 15:49:57 After School Program Coordinator: JONN Modifier: ROSALINDALOAN 1 <*> Procedure Aortogram Abdominal with Runoff 1 <+> Stop <+> 2 Stop 02/12/19 14:54:15 After School Program Coordinator: JONN Modifier: HARSHPIER 1 <*> Procedure Aortogram Abdominal with Runoff 02/12/19 14:50:24 After School Program Coordinator: JONN Modifier: HARSHPIER <+> 2 Procedure <+> 2 Primary Procedure <+> 2 Modifiers <+> 2 Primary Surgeon <+> 2 Specialty <+> 2 Start <+> 2 Wound Class <+> 2 Anesthesia Type [facility] IntraOP Time Out Entry 1 [...] Modified By: Adilene Dhillon RN 02/12/19 14:50:31 [facility] IntraOP Time Out Audit 02/12/19 14:50:31 After School Program Coordinator: JONN Modifier: HARSHPIER 1 <*> Procedure to be Performed Aortogram Abdominal with Runoff(Right) [facility] IntraOp X-Ray and Images Entry 1 X-Ray/Imaging Type Fluoroscopy Fluoroscopy Type Fixed Plastic Dolls Mold Filler Name Mayra Castrejon [employer] Protective Devices Yes Used Last Modified By: Lexus Linda Rn 02/12/19 15:47:58 Case Comments <None> Finalized By: JONY MATHEW Document Signatures Signed By: Lexus Linda Rn 02/12/19 15:53 Adilene Dhillon RN 02/13/19 07:01 JONY MATHEW 02/13/19 11:43 Unfinalized History Date/Time Username Reason for Unfinalizing Freetext Reason for Unfinalizing 02/13/19 06:54 YOHANANAPIER Correct Documentation 02/13/19 11:36 JORGE Correct Billing Electronically signed by Mickey, [facility] Conversion Curing Room Supervisor Cerner at 08/13/2022 11:13 AM CDT documented in this encounter Plan of Treatment Not on file documented as of this encounter Visit Diagnoses Not on filedocumented in this encounter
--- OUTSIDE RECORDS SUMMARY | 2024-11-05 10:54 | XMS_ITS | Encounter Summary ---
Author Organization [employer] ([place]) Address [address] [place] [address] Care Team Providers Care Digital Sales Director Name Role Phone Unavailable Primary Care Provider Unavailabl e Encounter Details Date Type Department Care Team (Late st Contact Info) Description 02/12/2019 Transcribed Document [facility] Radiology [address] [place] [address] Martinez Miller MD [address] [facility] [place] [id number] Social History Tobacco Use Types Packs/Day Years [...] skin and nails, Oral, Daily, 0 Refill(s) Lafe 7.5 mg-325 mg oral tablet: 1 Tab, [...] Medication hair, skin and nails, Oral, Daily Lafe 7.5 mg-325 mg oral tablet 1 Tab, PRN, Oral, TID predniSONE See Instructions Prevacid 30 mg, Oral, Daily Spiriva 18 mcg, Inhalation, BID Symbicort 160 mcg-4.5 mcg/inh inhalation aerosol 2 Puff, Inhalation, BID Tagamet HB See Instructions tiZANidine 2 mg, PRN, Oral, TID Valium 5 mg, PRN, Oral, QID Vitamin D2 50,000 Int Units, Oral, Tuesday Vitamin D3 2,000 Int Units, Oral, Tuesday [...] Problems Cervical spinal stenosis / SNOMED CT 432013121 / Confirmed Smoker / SNOMED CT 923563783 / Confirmed Sinusitis / SNOMED CT 67288036 / Confirmed Seasonal allergies / SNOMED CT 161404773 / Confirmed Restless leg / SNOMED CT 79368694 / Confirmed Colon polyps / SNOMED CT 397372792 / Confirmed Pneumonia / SNOMED CT 698618023 / Confirmed Peripheral vascular disease / SNOMED CT 1191082788 / Confirmed Peptic ulcer / SNOMED CT 23777638 / Confirmed Osteoporosis / SNOMED CT 395484395 / Confirmed Neuropathy, R arm / SNOMED CT 1666787533 / Confirmed Migraines / SNOMED CT 56089059 / Confirmed Skin cancer / SNOMED CT 9833304882 / Confirmed Hypertension / SNOMED CT 4643795359 / Confirmed Hyperlipidemia / SNOMED CT 01904202 / Confirmed Elevated cholesterol / SNOMED CT 97571054 / Confirmed Hiatal hernia / SNOMED CT 306805670 / Confirmed Hemorrhoids / SNOMED CT 248761962 / Confirmed H/O: TIA / SNOMED CT 577431355 / Confirmed GERD (gastroesophageal reflux disease) / SNOMED CT 058719555 / Confirmed Gastritis / SNOMED CT 9362321 / Confirmed Fibromyalgia / SNOMED CT 74119210 / Confirmed Fibroids / SNOMED CT 900312644 / Confirmed Endometriosis / SNOMED CT 3796227517 / Confirmed Diverticulitis / SNOMED CT 597550821 / Confirmed Sinus problem / SNOMED CT 8898775057 / Confirmed Known medical problems / SNOMED CT 078295620 / Confirmed white spots on MRI Known medical problems / SNOMED CT 648721185 / Confirmed anti nuclear A and A antibodies Constipation / SNOMED CT 23001270 / Confirmed COPD (chronic obstructive pulmonary disease) / SNOMED CT 50892148 / Confirmed Chronic cough / SNOMED CT 341111246 / Confirmed Chronic constipation / SNOMED CT 768324137 / Confirmed Stroke, possible / SNOMED CT 590281955 / Confirmed Bursitis / SNOMED CT 529293130 / Confirmed Bronchitis / SNOMED CT 68732673 / Confirmed Back pain / SNOMED CT 140381206 / Confirmed Arthritis / SNOMED CT 8777919 / Confirmed Anemia / SNOMED CT 782452508 / Confirmed Allergic rhinitis / SNOMED CT 760078673 / Confirmed, Active Problems (39) Allergic rhinitis [...] LE weakness, uses cane. Integumentary: Warm, Dry, [place]. Neurologic: Alert, Oriented. Psychiatric: Cooperative, Appropriate mood & affect. Review / Management Results review: No qualifying data available. Impression and Plan Condition: Stable. documented in this encounter Plan of Treatment Not on file documented as of this encounter Visit Diagnoses Not on filedocumented in this encounter
--- OUTSIDE RECORDS SUMMARY | 2024-11-05 10:54 | XMS_ITS | Clinical Summary ---
Author Organization [facility] Address [address] [place] [address] Care Team Providers Care Gas Fitter Apprentice Name Role Phone Mustapha James MD Primary Care Provider [phone] Miguel Lamb MD Unavailable [phone] Allergies Active Allergy Reactions Criticality Noted [...] tablet by mouth 2 times a day. 0 Active fluticasone (Flonase) 50 MCG/ACT nasal spray Administer 1 spray into each nostril daily. 0 Active furosemide (Lasix) 20 MG tablet Take 1 tablet by mouth daily. 0 Active HYDROcodone-joanne taminophen (Verdigre) 7.5-325 MG tablet Take 1 tablet by mouth every 8 hours as needed. 0 Active lansoprazole (Prevacid) [address] capsule Take 1 capsule by mouth daily. 0 Active lisinopril 20 MG tablet Take 1 tablet by mouth daily. 0 Active Multiple Vitamins-Iron tablet Take 1 tablet by mouth daily. 0 Active aspirin 81 MG EC tablet Take [...] tablet by mouth nightly. Active VITAMIN D, CHOLECALCIFEROL , PO Take by mouth. Activ e famotidine (Pepcid) 20 MG tablet Take 1 tablet by mouth twice a day. Active Fluticasone-Ume clidin-Vilant (Trelegy Ellipta) 100-62.5-25 MCG/ACT aerosol powder Inhale. Active cetirizine (ZyrTEC) 10 MG tablet Take 1 tablet by mouth daily. Active baclofen (Lioresal) 10 MG tablet Take by mouth 3 times a day. Active albuterol 108 (90 Base) MCG/ACT inhaler Inhale 2 puffs 1 time as needed for wheezing or shortness of breath. 5 Active Nexletol 180 MG tablet Take 1 tablet by mouth daily. 5 Active diphenhydrAMINE (Benadryl) 50 MG tablet Take 1 tablet 1 hour prior to surgery 1 tablet 1 5 Active clopidogrel (Plavix) 75 MG tablet Take 1 tablet by mouth daily. 30 tablet 11 5 08/27/19 26 Active nitroglycerin (Nitrostat) 0.[address] 1 tablet under the tongue every 5 minutes as needed for chest pain. 30 tablet 11 5 09/19/19 26 Active Active Problems Problem Noted Date Diagnosed Date [...] Encounters Date Type Department Care Team Description 11/02/2024 Telephone [facility] [address] [place] [address] Ariana Li 11/02/2024 Telephone [facility] 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 [address] [place] [phone] Miguel Lamb MD Percutaneous coronary intervention [75137 (CPT )] 09/18/2024 7:17 AM EDT - 09/18/2024 3:19 PM EDT Hospital Encounter Cardiac Production Machine Computer [employer] [address] [place] [address] Miguel Lamb MD S/P coronary artery stent placement Discharge Disposition: Home or Self Care 08/30/2024 2:20 PM EDT - 08/30/2024 4:20 PM EDT Surgery Cardiac Production Machine Computer Operator [address] [place] [phone] Miguel Lamb MD Percutaneous coronary intervention [43470 (CPT )] 08/30/2024 1:09 PM EDT - 08/31/2024 1:48 PM EDT Hospital Encounter [facility] [address] [place] [phone] Miguel Lamb MD S/P coronary artery stent placement (Primary Dx); Nonrheumatic aortic valve stenosis Discharge Disposition: Home or Self Care 08/30/2024 Travel 08/27/2024 Refill [facility] 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 ([facility]); Tobacco abuse; Type 2 diabetes mellitus without complication, unspecified whether longterm insulin use 08/15/2024 8:43 AM EDT - 08/15/2024 11:59 PM EDT Hospital Encounter [facility] [address] [place] [phone] Nonrheumatic aortic valve stenosis Discharge Disposition: Home or Self Care 08/15/2024 Travel 08/08/2024 Telephone [facility] [address] [place] [address] Chaparrita Sarkar RN from Last 3 Months Immunizations Immunization Administration [...] PM EDT Appointment Cardiac Imaging [address] [place] [phone] 01/04/2025 3:30 PM EDT Office Visit [facility] [address] [place] [phone] Miguel Lamb MD [address] [place] [address] Health Maintenance Due Date Last Done Comments [...] 2003 [facility]-Diabetes: Hemoglobin A1C 12/01/202212/2022, 07/07/2019, 07/04/2019 [id number] Vaccine ( season) 2023 02/24/2022, 04/01/2021, 08/06/2020, Additional history exists [facility]-Influenza Vaccine (#1) 12/24/202401/23, 03/31/2023, 03/02/2022, Additional history exists [facility]-Medicare Annual Wellness (AWV) 06/08/2025 06/08/2024, 03/31/2023 [facility]-DTaP,Tdap,and Td Vaccines (2 - Td or Tdap) 06/29/2025 06/30/2015 [facility]-Depression Screening 07/20/2025 07/20/2024, 06/24 [facility]-Pneumococcal Vaccine: 50+ Years Completed 03/31/2023, 01/23/2019, 09/30/2015 [facility]-RSV Vaccine: 60+ Years or Completed 08/04/2023 [facility]-Obesity Intervention Completed 025, 08/16/2024, 08/15/2024, Additional [...] this topic Medical Devices Implanted Type Area Service Consultant Device Identifier Shelf Expiration Date Model / Serial / Lot Stent Fairview Louin Rx 4.5mm X 12mm - [id number] Implanted:Qty: 1 on 08/30/2024 by Miguel Lamb MD at [id number] 03/21/2027 [id number] UX / / [id number] Stent Coronary Fairview Louin Rx 3.00mm X 18mm - [id number] Implanted:Qty: 1 on 08/30/2024 by Miguel Lamb MD at [id number] 06/14/2027 [id number] UX / / [id number] Stent Coronary Fairview Manjit Rx 2.75mm X 30mm - [id number] Implanted:Qty: 1 on 09/18/2024 by Miguel Lamb MD at [id number] 03/25/2027 [id number] UX / / [id number] Stent Coronary Fairview Manjit Rx 3.00mm X 26mm - [id number] Implanted:Qty: 1 on 09/18/20[facility]-[id number] 06/21/2027 [id number] UX / / [id number] Stent Coronary Fairview Louin Rx 3.50mm X 12mm - [id number] Implanted:Qty: 1 on 09/18/2024 [facility]-[id number] 03/04/2027 [id number] UX / / [id number] Procedures Procedure Name Priority Date/Time Associated Diagnosis [...] of an overlapping 3.5 x 12 mm Fairview Manjit drug-eluting stent. Ostium flared to 4.0. 3. Serial 70% diffuse lesions of the mid-distal RCA s/p successful PCI with placement of overlapping 3.0 x 26 mm and 2.75 x 30 mm Fairview Louin drug-eluting stents (proximal-distal). Recommendations: 1. Post-PCI EKG. [...] After confirming therapeutic activated clotting time, a [employer] wire was advanced beyond the lesion and into the distal RCA. We advanced an Emerge RX 2.5 x 20 mm balloon into the mid-dstial RCA lesion and inflated to 12 rachael. The balloon was withdrawn slightly and serial inflations performed using the same technique. We then advanced a 2.75 mm x 30 mm Fairview Manjit drug eluting stent into the lesion and deployed at 12 rachael. We then placed and overlapping 3.0 x 26 mm Fairview Louin drug-eluting stent proximal to the aforementioend stent, inflated to 12 rachael. Post-dilation of the proximal-mid stent was then carried out using a 3.0 NC balloon. We then closely evaluated the ostium which appeared to have disease and appeared to be uncovered. We then advanced a 3.5 x 12 mm Fairview Louin drug- eluting stent in the proximal RCA [...] The patient was transferred back to the mobile lab technician holding area in good condition. Coronary [...] seconds 09/26/2024 9:35 AM EDT [facility] Explosive Ordnance Manager ID Mary Marin 09/26/2024 9:35 AM EDT HEALTHCARE LAB ACT Device ID [id number] 09/26/2024 9:35 AM EDT [facility]ALTH[facility]ARE LAB Comment 09/26/2024 9:35 AM EDT [facility] Comment: ACT performed by staff [...] UNSOLICITED RESULTS Final Result [facility]ARE [facility] [address] LAB [address] [place] [address] * (ABNORMAL) POCT creatinine (09/18/2024 8:24 AM EDT) Only the most recent of2 resultswithin the time period is included. Creatinine, Point of Care 1.2(H) 0.6 - 1.1 mg/dL 09/18/2024 8:28 AM EDT HEALTHCARE LAB POCT eGFR 48 mL/min/1. 73m*2 09/18/2024 8:28 AM EDT [facility] Explosive Ordnance Manager ID Rosangela Gallegos 09/18/2024 8:28 AM EDT HEALTHCARE LAB Device ID [id number] 09/18/2024 8:28 AM EDT [facility]ALTH[facility]ARE LAB Comment 09/18/2024 8:28 AM EDT [facility] Comment:Testing performed on i-STAT at the point of care. Reported eGFRcr in mL/min/1.73m2 is based the CKD-EPI 2020 equation that does not use a race coefficient. Blood Venous blood specimen / Unknown 09/18/2024 8:24 AM EDT 09/18/2024 8:28 AM EDT us Miguel Lamb MD LAB POINT OF CARE TE ST DOCKED DEVICE UNSOLICITED RESULTS Final Result [facility] [address] LAB [address] [place] [address] * (ABNORMAL) CBC and differential (09/18/2024 8:20 AM EDT) WBC Count 8.79 3.70 - 10.30 10*3/uL LAB HEMATOLOGY METHOD 09/18/2024 8:38 AM EDT [facility] RBC Count 2.65(L) 3.90 - 5.20 10*6/uL LAB HEMATOLOGY METHOD 09/18/2024 8:38 AM EDT [facility] HGB 7.2(L) 11.2 - 15.7 g/dL LAB HEMATOLOGY METHOD 09/18/2024 8:38 AM EDT [facility] HCT 24.6(L) 34.0 - 45.0 % LAB HEMATOLOGY METHOD 09/18/2024 8:38 AM EDT [facility] Platelet Count 358 155 - 369 10*3/uL LAB HEMATOLOGY METHOD 09/18/2024 8:38 AM EDT [facility] MCV 93 79 - 98 fL LAB HEMATOLOGY METHOD 09/18/2024 8:38 AM EDT [facility] MCH 27.2 26.0 - 32.0 pg LAB HEMATOLOGY METHOD 09/18/2024 8:38 AM EDT [facility] MCHC 29.3(L) 30.7 - 35.5 g/dL LAB HEMATOLOGY METHOD 09/18/2024 8:38 AM EDT [facility] RDW 16.0(H) 11.5 - 14.5 % LAB HEMATOLOGY METHOD 09/18/2024 8:38 AM EDT [facility] MPV 10.4 8.8 - 12.5 fL LAB HEMATOLOGY METHOD 09/18/2024 8:38 AM EDT [facility] nRBC 0.0 <=0.0 per 100 WBCs LAB HEMATOLOGY METHOD 09/18/2024 8:38 AM EDT [facility] Differential Type Automated LAB HEMATOLOGY METHOD 09/18/2024 8:38 AM EDT [facility] Neutrophils % 90 % LAB HEMATOLOGY METHOD 09/18/2024 8:38 AM EDT [facility] Lymphocytes % 6 % LAB HEMATOLOGY METHOD 09/18/2024 8:38 AM EDT [facility] Monocytes % 2 % LAB HEMATOLOGY METHOD 09/18/2024 8:38 AM EDT [facility] Eosinophils % 1 % LAB HEMATOLOGY METHOD 09/18/2024 8:38 AM EDT [facility] Basophils % 0 % LAB HEMATOLOGY METHOD 09/18/2024 8:38 AM EDT [facility] Immature Granulocytes % 1 % LAB HEMATOLOGY METHOD 09/18/2024 8:38 AM EDT [facility] Neutrophils Absolute 7.96(H) 1.60 - 6.10 10*3/uL LAB HEMATOLOGY METHOD 09/18/2024 8:38 AM EDT [facility] Lymphocytes Absolute 0.56(L) 1.20 - 3.90 10*3/uL LAB HEMATOLOGY METHOD 09/18/2024 8:38 AM EDT [facility] Monocytes Absolute 0.13(L) 0.30 - 0.90 10*3/uL LAB HEMATOLOGY METHOD 09/18/2024 8:38 AM EDT [facility] Eosinophils Absolute 0.07 0.00 - 0.50 10*3/uL LAB HEMATOLOGY METHOD 09/18/2024 8:38 AM EDT [facility] Basophils Absolute 0.02 0.00 - 0.10 10*3/uL LAB HEMATOLOGY METHOD 09/18/2024 8:38 AM EDT [facility] Immature Granulocytes Absolute 0.05 0.00 - 0.06 10*3/uL LAB HEMATOLOGY METHOD 09/18/2024 8:38 AM EDT [facility] Blood Venous blood specimen / Unknown Venipuncture / Unknown 09/18/2024 8:20 AM EDT 09/18/2024 8:26 AM EDT Narrative [facility] - 09/18/2024 8:38 AM EDT Therapeutic decision making should be based on absolute values, rather than percentages. us Miguel Lamb MD LAB BLOOD ORDERABLES Final Resu lt [facility] [address] [place] [address] * (ABNORMAL) Basic metabolic panel (09/18/2024 8:20 AM EDT) Only the most recent of3 resultswithin the time period is included. Glucose, Plasma 157(H) 74 - 99 mg/dL 09/18/2024 8:58 AM EDT [facility] BUN, Plasma 17 8 - 23 mg/dL 09/18/2024 8:58 AM EDT [facility] Creatinine, Plasma 1.05 0.60 - 1.10 mg/dL 09/18/2024 8:58 AM EDT [facility] BUN/Creatinine Ratio 16 09/18/2024 8:58 AM EDT [facility] Sodium, Plasma 138 136 - 145 mmol/L 09/18/2024 8:58 AM EDT [facility] Potassium, Plasma 4.5 3.6 - 4.9 mmol/L 09/18/2024 8:58 AM EDT [facility] Chloride, Plasma 100 97 - 107 mmol/L 09/18/2024 8:58 AM EDT [facility] CO2, Plasma 23 22 - 29 mmol/L 09/18/2024 8:58 AM EDT [facility] Anion Gap 15 6 - 16 mmol/L 09/18/2024 8:58 AM EDT [facility] Total Calcium, Plasma 9.4 8.9 - 10.2 mg/dL 09/18/2024 8:58 AM EDT [facility] eGFRcr 56.9 mL/min/1.7 3m*2 09/18/2024 8:58 AM EDT [facility] Comment:Reported eGFRcr in m L/min/1.73m2 is based the CKD-EPI 2020 equation that does not use a race coefficient. Blood Venous blood specimen / Unknown Venipuncture / Unknown 09/18/2024 8:20 AM EDT 09/18/2024 8:27 AM EDT Miguel Lamb MD LAB BLOOD ORDERABLES Final Resu lt Performing Organization Address [facility] Co de Phone Number [facility] [address] [place] [address] * (ABNORMAL) N-Terminal Probnp, Plasma (08/31/2024 3:59 AM EDT) N-Terminal, PROBNP, Plasma 5,650(H) 0 - 899 pg/mL 08/31/2024 5:38 AM EDT [facility] Blood Venous blood specimen / Unknown Venipuncture / Unknown 08/31/2024 3:59 AM EDT 08/31/2024 4:36 AM EDT Zuly Gaspar APRN LAB BLOOD ORDERABLES Final R esult Performing Organization Address [facility] Co de Phone Number [facility] [address] [place] [address] * (ABNORMAL) CBC W/O Differential (08/31/2024 3:59 AM EDT) Only the most recent of2 resultswithin the time period is included. WBC Count 16.14(H) 3.70 - 10.30 10*3/uL LAB HEMATOLOGY METHOD 08/31/2024 4:45 AM EDT [facility] RBC Count 2.68(L) 3.90 - 5.20 10*6/uL LAB HEMATOLOGY METHOD 08/31/2024 4:45 AM EDT [facility] HGB 7.9(L) 11.2 - 15.7 g/dL LAB HEMATOLOGY METHOD 08/31/2024 4:45 AM EDT [facility] HCT 25.6(L) 34.0 - 45.0 % LAB HEMATOLOGY METHOD 08/31/2024 4:45 AM EDT [facility] Platelet Count 277 155 - 369 10*3/uL LAB HEMATOLOGY METHOD 08/31/2024 4:45 AM EDT [facility] MCV 96 79 - 98 fL LAB HEMATOLOGY METHOD 08/31/2024 4:45 AM EDT [facility] MCH 29.5 26.0 - 32.0 pg LAB HEMATOLOGY METHOD 08/31/2024 4:45 AM EDT [facility] MCHC 30.9 30.7 - 35.5 g/dL LAB HEMATOLOGY METHOD 08/31/2024 4:45 AM EDT [facility] RDW 15.0(H) 11.5 - 14.5 % LAB HEMATOLOGY METHOD 08/31/2024 4:45 AM EDT [facility] MPV 10.3 8.8 - 12.5 fL LAB HEMATOLOGY METHOD 08/31/2024 4:45 AM EDT [facility] nRBC 0.0 <=0.0 per 100 WBCs LAB HEMATOLOGY METHOD 08/31/2024 4:45 AM EDT [facility] Blood Venous blood specimen / Unknown Venipuncture / Unknown 08/31/2024 3:59 AM EDT 08/31/2024 4:29 AM EDT Zuly Gaspar APRN LAB BLOOD ORDERABLES Final R esult [facility] [address] [place] [address] * Magnesium, Plasma (08/31/2024 3:59 AM EDT) Magnesium, Plasma 2.2 1.9 - 2.4 mg/dL 08/31/2024 5:38 AM EDT [facility] Blood Venous blood specimen / Unknown Venipuncture / Unknown 08/31/2024 3:59 AM EDT 08/31/2024 4:36 AM EDT Zuly Gaspar APRN LAB BLOOD ORDERABLES Final R esult [facility] [address] [place] [address] * ECG Adult (08/30/2024 6:02 PM EDT) EKG DIAGNOSIS CLASS Abnormal MUSE ECG Ventricular Rate 99 BPM MUSE ECG Atrial Rate 99 BPM MUSE ECG MT Interval 142 ms MUSE ECG QRSD Interval 86 ms MUSE ECG QT Interval 368 ms MUSE ECG QTC Interval 472 ms MUSE ECG P Mallory 66 degrees MUSE ECG R Mallory 16 degrees MUSE ECG T Wave Mallory 59 degrees MUSE ECG Diagnosis Normal sinus [...] placement of a 4.5 x 15 mm Fairview Manjit drug-eluting stent (overlapping with previously placed stent distally and 1-2 mm of stent extending in the aorta) 2. 70% heavily calcified distal left main severe in-stent re-stenosis s/p balloon angioplasty with a 3.5 NC balloon 3. 90% ostial RCA stenosis s/p successful PCI with placement of a 3.0 x 12 mm and 3.0 x 18 mm Fairview Louin drug-eluting stent. Proximal-mid stent post-dilated to 3.5. [...] to direct stent. We then advanced a Fairview Louin 4.5 x 12 mm drug-eluting stent into [...] 12 mm and 3.0 x 18 mm Fairview Louin drug eluting stents in the proximal RCA [...] The patient was transferred back to the mobile lab technician holding area in good condition. Coronary [...] CARDIAC CATH PROCEDURES Sheyla l Result * CT Angio Abdomen Pelvis (08/15/2024 [...] Volume: 1359 Aortic Root Measurements 3-Cusp view: NEW ZEALANDER 16 degrees; PHP ENGINEER 7 degrees Annulus area: 4.48 cm Annulus [...] 1574 Volume: 1359 Aortic Root Measurements 3-Cusp view:NEW [place]EALANDER 16 degrees; PHP ENGINEER 7 degrees Annulus area: 4.48 cm Annulus [...] Volume: 1359 Aortic Root Measurements 3-Cusp view: [place]EALANDER 16 degrees; PHP ENGINEER 7 degrees Annulus area: 4.48 cm Annulus [...] 1574 Volume: 1359 Aortic Root Measurements 3-Cusp view:NEW ZEALANDER 16 degrees; PHP ENGINEER 7 degrees Annulus area: 4.48 cm Annulus [...] <6.0% Children and Adolescents <7.5% . Source: [place] [employer]. Standards of medical care in diabetes, 2017. Diabetes Care.2017:40 (suppl 1):S1-S135. . HbA1c assay performed by an ion-exchange chromatography method that is certified traceable to the DCCT. 07/07/2019 2:34 AM EDT 07/07/2019 2:46 AM EDT Historical Provider LAB BLOOD ORDERABLES Sheyla caban Result [facility] from Last 3 Months or Most Recently Relevant to Health Maintenance Insurance [facility] Member Subscriber Plan / Payer ( fective 2011-Present) Name:Jodi Byrne Relation to Subscriber:Self Name:Jodi Byrne Payer ID:[id number] (NAIC) Type:Not on file Address: [address] [place] [phone] Advance Directives * Full Code (Latest Code [...] updated to appropriate status: Yes Care Teams Gas Fitter Apprentice Relationship Specialty Start Date End Date Mustapha James MD [address] [place] [id number] PCP - General 09/05/20 Miguel Lamb MD [address] [place] [phone] Referring Physician Interventional Cardiology 08/16/24
--- OUTSIDE RECORDS SUMMARY | 2024-11-05 10:54 | XMS_ITS | Encounter Summary ---
Author Organization [employer] ([place], [place], [place], [place]) Address [address] [place] [address] Care Team Providers Care Youth Career Specialist Name Role Phone Unavailable Primary Care Provider Unavailabl e Encounter Details Date Type Department Care Team (Late st Contact Info) Description 02/12/2019 Transcribed Document [facility] Family Medicine [facility] [place] [address] ProviderRegina MD [address] [place] [id number] Social History Tobacco Use Types Packs/Day [...] Henley MD - 02/12/2019 5:22 PM CDT [facility] [address] THOMAS GTZ SRIRAM :1955 Visit Time:02/12/2019 Your Visit Summary Your Care Team Admitting Physician - TONY PEÑA MD-SUR Attending Physician - TONY PEÑA MD-SUR Primary Care Physician - JACKIE BABIN MD-FAM Referring Physician - JACKIE BABIN MD-FAM PHY, NOT LISTED Your Diagnosis Atherosclerosis of [place] arteries of extremities with intermittent claudication, unspecified extremity, Atherosclerosis of [place] arteries of extremities with intermittent claudication, unspecified [...] Appointment has been made with [facility]. Where: [address] [place], [place] [phone]- [phone] Medications What How Much When Instructions Next Dose acetaminophen-hydrocodone (Baldwin 7.5 mg-325 mg oral tablet) 1 Tablet(s) [...] Document Reviewed: 05/14/2011 ExitCare?? Patient Information ??2013 Easy Pairings. Angiogram, Care After This sheet gives you [...] and water are not available, use hand crawler dragline operator. ? Change your dressing as told [...] contrast dye from your body. ??? Take ckwj-rpn-mnxvyac and prescription medicines only as told by [...] 10/28/2005 Document Revised: 03/16/2017 Document Reviewed: 03/16/2017 [employer] Interactive Patient Education ?? 2019 [employer]esOff. Moderate Conscious Sedation, Adult, Care After These [...] you are awake and alert. ??? Take eect-pjo-drxgjkj and prescription medicines only as told by [...] 01/30/2014 Document Revised: 09/13/2016 Document Reviewed: 07/31/2016 [employer] Interactive Patient Education ?? 2019 GlassesOff. clopidogrel (kloe PID oh grel) Plavix What [...] may report side effects to FDA at [phone]. What other drugs will affect clopidogrel? Certain other medicines may increase your risk of bleeding, including aspirin. Avoid taking aspirin unless your doctor tells you to. Tell your doctor about all your other medicines, especially: ?? any other medicines to treat or prevent blood clots; ?? a stomach acid hardwood floor installation helper such as omeprazole, Nexium, or Prilosec; ?? an antidepressant; ?? an opioid medication; ?? a blood thinner--warfarin, Coumadin, Jantoven; or ?? NSAIDs (nonsteroidal anti-inflammatory drugs)--ibuprofen (Advil, Motrin), naproxen (Aleve), celecoxib, diclofenac, indomethacin, meloxicam, and others. This list is not complete. Other drugs may affect clopidogrel, including prescription and ystv-iox-auchrsp medicines, vitamins, and herbal products. Not all [...] to ensure that the information provided by [employer]. ('[employer]') is accurate, up-to-date, and complete, but no guarantee is made to that effect. Drug information contained herein may be time sensitive. [employer] information has been compiled for use by healthcare practitioners and consumers in the [place] and therefore [employer] does not warrant that uses outside of the [place] are appropriate, unless specifically indicated otherwise. [employer]'s drug information does not endorse drugs, diagnose patients or recommend therapy. [employer] drug information is an informational resource designed [...] with your doctor, nurse or pharmacist. Copyright 7405-9850 [employer]. Version: 15.. Revision Date: 02/13/2018. Emergency Awareness [...] Assistance with quitting is available by contacting 5-393-KDVT-NOW. This is a free resource providing counseling, [...] between ( 10.0 and 20.0 ) Patient Name:THOMAS GTZ I have received and understand this information and was given the opportunity to ask questions. Patient/Neonatal Nurse Name: Patient/Neonatal Nurse Signature: Relationship to Patient: Clinician/Hospital Neonatal Nurse Signature: Date: Electronically signed by [facility], [facility] Conversion Salt Machine Operator Andrew at 08/13/2022 11:17 AM CDT documented in this encounter Plan of Treatment Not on file documented as of this encounter Visit Diagnoses Not on filedocumented in this encounter
--- OUTSIDE RECORDS SUMMARY | 2024-11-05 10:54 | XMS_ITS | Encounter Summary ---
Author Organization [employer] ([place], [place], [place], [place]) Address [address] [place] [address] Care Team Providers Care Space Scheduler Name Role Phone Unavailable Primary Care Provider Unavailabl e Encounter Details Date Type Department Care Team (Late st Contact Info) Description 02/12/2019 Transcribed Document [facility] Family Medicine [facility] [place] [address] ProviderRegina MD [address] [place] [address] Social History Tobacco Use Types [...] Document Reviewed: 05/14/2011 ExitCare? Patient Information ?2013 [employer]. Angiogram, Care After This sheet gives you [...] and water are not available, use hand hadoop application developer. ? Change your dressing as told by [...] contrast dye from your body. ??? Take expi-ddx-vettaql and prescription medicines only as told by [...] 10/28/2005 Document Revised: 03/16/2017 Document Reviewed: 03/16/2017 [employer] Interactive Patient Education ? 2019 [employer] Moderate Conscious Sedation, Adult, Care After [...] you are awake and alert. ??? Take hirh-jij-xthvyma and prescription medicines only as told by [...] 01/30/2014 Document Revised: 09/13/2016 Document Reviewed: 07/31/2016 [employer] Interactive Patient Education ? 2019 [employer] documented in this encounter Plan of Treatment Not on file documented as of this encounter Visit Diagnoses Not on filedocumented in this encounter
--- OUTSIDE RECORDS SUMMARY | 2024-11-05 10:54 | XMS_ITS | Encounter Summary ---
Author Organization [facility] Address [address] [id number] Care Team Providers Care Pre Sales Architect Name Role Phone Mustapha James MD Primary Care Provider [phone] Miguel Lamb MD Unavailable [phone] Encounter Details Date Type Department Care Team (Late st Contact Info) Description 11/02/2024 Telephone [facility] V[facility] [address] [phone] [place] [address] Social History Tobacco Use Types Packs/Day Years [...] PM EDT Appointment Cardiac Imaging [address] [place] [phone] 01/04/2025 3:30 PM EDT Office Visit [facility] [address] [facility] [place] [phone] Miguel Lamb MD [address] [place] [address] documented as of this encounter [...] documented as of this encounter Care Teams Pre Sales Architect Relationship Specialty Start Date End Date Mustapha James MD [address] [place] [address] PCP - General 09/05/20 Miguel Lamb MD [address] [place] [address] Referring Physician Interventional Cardiology 08/16/24 documented as of this encounter
--- OUTSIDE RECORDS SUMMARY | 2024-11-05 10:54 | XMS_ITS | Encounter Summary ---
Author Organization [employer] ([place], [place], [place], [place]) Address [address] [place] [address] Care Team Providers Care Chief Knowledge Officer Name Role Phone Unavailable Primary Care Provider Unavailabl e Encounter Details Date Type Department Care Team (Late st Contact Info) Description 02/09/2019 Transcribed Document [facility] Family Medicine [facility] [place] [address] ProviderRegina MD [address] [place] [address] Social History Tobacco Use Types Packs/Day [...] Source : Measured Height Entry Format : Gaines Height, Inches : 63 Inch(Converted to: 5 ft 3 Inch, 160.02 cm) Clinical Height : 160.02 cm Weight Source : Standing scale Weight Entry Format : Gaines Clinical Dosing Weight : 85.91 kg Weight, Pounds : 189 lb Body Surface Area (BSA) : 1.89 m2 Body Mass Index : 33.6 kg/m2 (HI) [place] Body Weight : 52 kg ABRAHAM STOKES RN - 02/12/2019 11:04 EDT Health Histories Smoking Status : 4 or less cigarettes(less than 1/4 pack)/day in last 30 days Smokeless Tobacco Status : Never Desires Tobacco Cessation Medication : No Reason for No Tobacco Cessation Medication : Refuses FDA approved medications Implant/Device Type, Cover Maker and Model : neck fusion and lumbar [...] : No Emergency Contact #1 : Christine oPwell Emergency Contact #1 Emergency Contact #1 Relationship : neighbor Emergency Contact #2 : - Emergency Contact #2 Phone Number : - Emergency Contact #2 Relationship : - Chief Complaint : leg pain and cramping Information Obtained From : Patient Primary Language : German Communication Barrier : None MARY MCGRAW RN [...]
--- OUTSIDE RECORDS SUMMARY | 2024-11-05 10:54 | XMS_ITS | Encounter Summary ---
Author Organization [facility] Address [address] [id number] Care Team Providers Care Cheese Cook Name Role Phone Mustapha James MD Primary Care Provider [phone] Miguel Lamb MD Unavailable [phone] Encounter Details Date Type Department Care Team (Late st Contact Info) Description 11/02/2024 Telephone [facility] [address] [phone] [place] [address] Social History Tobacco Use Types Packs/Day Years [...] PM EDT Appointment Cardiac Imaging [address] [place] [phone] 01/04/2025 3:30 PM EDT Office Visit [facility] [address] [facility] [place] [phone] Miguel Lamb MD [address] [place] [address] documented as of this encounter [...] documented as of this encounter Care Teams Cheese Cook Relationship Specialty Start Date End Date Mustapha James MD [address] [place] [address] PCP - General 09/05/20 Miguel Lamb MD [address] [place] [address] Referring Physician Interventional Cardiology 08/16/24 documented as of this encounter
--- OUTSIDE RECORDS SUMMARY | 2024-11-05 10:54 | XMS_ITS | Encounter Summary ---
Author Organization [employer] ([place], [place], [place], [place]) Address [address] [place] [address] Care Team Providers Care Surveying Teacher Name Role Phone Unavailable Primary Care Provider Unavailabl e Encounter Details Date Type Department Care Team (Late st Contact Info) Description 02/12/2019 Transcribed Document [facility] Family Medicine [facility] [place] [address] ProviderRegina MD [address] [place] [address] Social History Tobacco Use Types Packs/Day [...] Henley MD - 02/12/2019 5:18 PM CDT [facility] [place] [address] THOMAS GTZ SRIRAM :1955 Visit Time:02/12/2019 Your Visit Summary Your Care Team Admitting Physician - TONY PEÑA MD-SUR Attending Physician - TONY PEÑA MD-SUR Primary Care Physician - JACKIE BABIN MD-FAM Referring Physician - JACKIE BABIN MD-FAM PHY, NOT LISTED Your Diagnosis Atherosclerosis of [place] arteries of extremities with intermittent claudication, unspecified extremity, Atherosclerosis of [place] arteries of extremities with intermittent claudication, unspecified [...] Appointment has been made with [facility]. Where: [address] [place], [place] [phone]- [phone] Medications What How Much When Instructions Next Dose acetaminophen-hydrocodone ([place]elia 7.5 mg-325 mg oral tablet) 1 Tablet(s) [...] Document Reviewed: 05/14/2011 ExitCare?? Patient Information ??2013 [employer]. Angiogram, Care After This sheet gives you [...] and water are not available, use hand medtronics technician. ? Change your dressing as told by [...] contrast dye from your body. ??? Take ummf-muk-exvgaic and prescription medicines only as told by [...] 10/28/2005 Document Revised: 03/16/2017 Document Reviewed: 03/16/2017 [employer] Interactive Patient Education ?? 2019 [employer]. Moderate Conscious Sedation, Adult, Care After These [...] you are awake and alert. ??? Take exie-qiu-kaplaad and prescription medicines only as told by [...] 01/30/2014 Document Revised: 09/13/2016 Document Reviewed: 07/31/2016 [employer] Interactive Patient Education ?? 2019 [employer]. Emergency Awareness and Preventative Care STROKE is [...] Assistance with quitting is available by contacting 0-561-ESZX-NOW. This is a free resource providing counseling, [...] was given the opportunity to ask questions. Patient/Sales Advisor Name: Patient/Sales Advisor Signature: Relationship to Patient: Clinician/Hospital Sales Advisor Signature: Date: Electronically signed by Mickey, [facility] Conversion Solder Making Supervisor Andrew at 08/13/2022 11:16 AM CDT documented in this encounter Plan of Treatment Not on file documented as of this encounter Visit Diagnoses Not on filedocumented in this encounter
--- NOTE | 2024-11-05 11:30 | CA_ITS ---
FINAL REPORT CLINICAL HISTORY: BILATERAL LEG PAIN AND EDEMA,PT ON PLAVIX FINDINGS: Multiple transverse and longitudinal scans were performed of the femoral popliteal deep venous system, with augmentation and compression maneuvers. Normal phasic flow was noted in the visualized deep venous system. No intraluminal increased echogenicity is noted to suggest thrombus. There is normal compression and augmentation of the venous structures. No abnormal venous collaterals are seen. IMPRESSION: No evidence of deep venous thrombosis of the bilateral lower extremities. Reviewed, Interpreted and Dictated by Fina Interiano MD Transcribed by Lianne Izquierdo Authenticated and [facility]
[2024-11-05 11:40] LABS: Hematocrit 27.5 % (37.0-47.0); Hemoglobin 8.0 g/dL (12.2-16.2); Immature Granulocytes % 0.3 %; Mean Corpuscular HGB Conc 29.1 g/dL (31.8-35.4); Mean Corpuscular Hemoglobin 29.4 pg (27.0-31.2); Mean Corpuscular Volume 101.1 fl (81-99); Nucleated Red Blood Cells % 0 %; Platelet Count 284 K/mm3 (142-424); Red Blood Count 2.72 M/mm3 (4.20-5.40); Red Cell Distribution Width-SD 84.2 fL; White Blood Count 7.2 K/mm3 (4.8-10.8)
[2024-11-05 12:22] LABS: Free T4 (Free Thyroxine) 1.53 ng/dl (0.78-2.19)
[2024-11-05 13:09] LABS: Albumin Level 3.9 g/dl (3.5-5.0); Chloride 93 mmol/L (98-107); Sodium 135 mmol/L (136-145)
[2024-11-05 13:10] LABS: Potassium 4.2 mmoL/L (3.5-5.1)
[2024-11-05 13:12] LABS: Alkaline Phosphatase 58 U/L (38-126); Anion Gap 15.2 mEq/L (5-15); Aspartate Amino Transferase 22 U/L (14-36); Bilirubin,Direct 0.3 mg/dl (0.0-0.4); Bilirubin,Indirect 0.2 mg/dL (0.0-0.9); Bilirubin,Total 0.5 mg/dl (0.2-1.3); Bilirubin,Unconjugated 0.2 mg/dL (0.0-1.1); Blood Urea Nitrogen 29 mg/dl (7-17); Calcium 9.4 mg/dl (8.4-10.2); Carbon Dioxide 31 mmol/L (22.0-30.0); Cholesterol 110 mg/dl (140-200); Creatinine,Serum 1.20 mg/dl (0.52-1.04); Estimated Glomerular Filt Rate 44 ml/min (>60); GFR (African American) 54 ML/MIN (>60); Glucose 99 mg/dl (74-100); Total Protein,Serum 6.5 g/dl (6.3-8.2); Triglycerides 153 mg/dl (30-150)
[2024-11-05 13:13] LABS: HDL Cholesterol 45 mg/dl (40-60); Magnesium 2.0 mg/dl (1.6-2.3)
[2024-11-05 13:44] LABS: Thyroid Stimulating Hormone 2.02 uIU/mL (0.465-4.68)
[2024-11-05 14:42] LABS: Alanine Aminotransferase 11 U/L (12-78)
== END 2024-11-05 23:59 | disposition home or self-care (01) ==
PROVIDERS: PCP Family Medicine; Visit Provider Nurse Practitioner
DX: M79.604 Pain in right leg (principal); M79.605 Pain in left leg; R60.0 Localized edema; I25.10 Atherosclerotic heart disease of native coronary artery without angina pectoris; I10 Essential (primary) hypertension; E78.2 Mixed hyperlipidemia; I35.0 Nonrheumatic aortic (valve) stenosis
CPT/HCPCS: 36415; 80048; 80061; 80076; 83735; 84439; 84443; 85025; 93970

== ENCOUNTER 2024-11-14 12:30 | Outpatient (CLI) | payer MEDICARE, SELFPAY ==
--- OUTSIDE RECORDS SUMMARY | 2024-09-18 07:17 | XMS_ITS | Encounter Summary ---
Author Organization [facility] Address [address] [id number] Care Team Providers Care Erp Analyst Name Role Phone Mustapha James MD Primary Care Provider [phone] Miguel Lamb MD Unavailable [phone] Reason for Visit * Auth/Cert (Routine) Specialty Diagnoses / Procedures Referred By Contac t Referred To Contact Diagnoses S/P coronary artery stent placement S/P coronary artery stent placement [Z95.5] Procedures DE PRQ TRLUML CORONARY STENT W/ANGIO ONE ART/BRNCH Percutaneous coronary intervention Miguel Lamb MD [address] [place] [address] Phone: tel: fax: Cardiac Components Engineer [address] [place] [address] Phone: tel: Referral ID Status Reason Start Date Expiration Date Visits Re quested Visits Authorized [id number] 1 1 Encounter Details Date Type Department Care Team (Latest Contact Info) Description 09/18/2024 7:17 AM EDT - 09/18/2024 3:19 PM EDT Hospital Encounter Cardiac Components Engineer [address] [place] [address] Miguel Lamb MD [address] [place] [address] S/P coronary artery stent placement [...] tablet by mouth daily. 07/24/2019 HYDROcodone-acet aminophen (Camp) 7.5-325 MG tablet Take 1 tablet by [...] from the original note were not included. [id number] Bleeding or Hematoma After Cardiac Catheterization You [...] on the site, and call 911 or [facility] take you to the emergency room. In [...] provider. Last Reviewed Date: 2024 00:00:00 ?? [id number] [employer]. All rights reserved. This information is not [...] been discussed with the patient and/or their sales representative printing paper. All questions answered and they agree to [...] 50 MCG/ACT nasal spray 1 spray, Daily Nsadtkkszdl-Arfiwyjvb-Exadcx (Trelegy Ellipta) 100-62.5-25 MCG/ACT aerosol powder Inhale. furosemide (LASIX) 20 mg, Daily HYDROcodone-acetaminophen (Camp) 7.5-325 MG tablet 1 tablet, Every 8 [...] Fellow, PGY-6, Department of Cardiovascular Medicine Pager: [phone] [1] Past Medical History: Diagnosis Date COPD (chronic obstructive pulmonary disease) (CMS/HCC) HLD (hyperlipidemia) HTN (hypertension) Lung cancer (CMS/HCC) Seasonal allergies [2] Past Surgical History: Procedure Laterality Date BACK SURGERY CARDIAC STENT HYSTERECTOMY KNEE SURGERY Cosigned by Miguel Lamb MD at 09/18/2024 12:59 PM EDT Associated attestation - Miguel Labm MD - 09/18/2024 12:59 PM EDT I [...] PM EDT Appointment Cardiac Imaging [address] [place] [address] 01/04/2025 3:30 PM EDT Office Visit [facility] [address] [place] [address] Miguel Lamb MD [address] [place] [address] documented as of this encounter Procedures Procedure [...] of an overlapping 3.5 x 12 mm [place] Manjit drug-eluting stent. Ostium flared to 4.0. 3. Serial 70% diffuse lesions of the mid-distal RCA s/p successful PCI with placement of overlapping 3.0 x 26 mm and 2.75 x 30 mm [place] Manjit drug-eluting stents (proximal-distal). Recommendations: 1. Post-PCI [...] advanced a 2.75 mm x 30 mm [place] Manjit drug eluting stent into the lesion and deployed at 12 rachael. We then placed and overlapping 3.0 x 26 mm [place] Manjit drug-eluting stent proximal to the aforementioend stent, inflated to 12 rachael. Post-dilation of the proximal-mid stent was then carried out using a 3.0 NC balloon. We then closely evaluated the ostium which appeared to have disease and appeared to be uncovered. We then advanced a 3.5 x 12 mm [place] Chr[place] drug- eluting stent in the proximal RCA [...] The patient was transferred back to the director labor standards holding area in good condition. Coronary Findings [...] * POCT ACT (09/18/2024 9:52 AM EDT) [facility] Signature ACT (Low Range) 352 65 - 400 seconds 09/26/2024 9:35 AM EDT [facility] Supervisor Die Casting ID Mary Marin 09/26/2024 9:35 AM EDT [facility] ACT Device ID [id number] 09/26/2024 9:35 AM EDT [facility] Comment 09/26/2024 9:35 AM EDT [facility] Comment: ACT performed by staff [...] UNSOLICITED RESULTS Final Result Performing Organization Address [facility] de Phone Number HEALTHCARE [facility] [address] LAB [address] [place] [address] * POCT ACT (09/18/2024 9:32 AM EDT) ACT (Low Range) 247 65 - 400 seconds 09/26/2024 9:35 AM EDT [facility] Supervisor Die Casting ID Mary Marin 09/26/2024 9:35 AM EDT HEALTH[facility]ARE LAB ACT Device ID [id number] 09/26/2024 9:35 AM EDT [facility] Comment 09/26/2024 9:35 AM EDT [facility] Comment: ACT performed by staff [...] UNSOLICITED RESULTS Final Result Performing Organization Address [facility] de Phone Number HEALTHCARE [facility] [address] LAB [address] [place] [address] * (ABNORMAL) POCT creatinine (09/18/2024 8:24 AM EDT) Creatinine, Point of Care 1.2(H) 0.6 - 1.1 mg/dL 09/18/2024 8:28 AM EDT [facility]ALTH[facility] POCT eGFR 48 mL/min/1. 73m*2 09/18/2024 8:28 AM EDT [facility] Supervisor Die Casting ID Rosangela Gallegos 09/18/2024 8:28 AM EDT HEALTHCARE LAB Device ID [id number] 09/18/2024 8:28 AM EDT [facility] Comment 09/18/2024 8:28 AM EDT [facility] Comment:Testing performed on i-STAT at the point of care. Reported eGFRcr in mL/min/1.73m2 is based the CKD-EPI 2020 equation that does not use a race coefficient. Blood Venous blood specimen / Unknown 09/18/2024 8:24 AM EDT 09/18/2024 8:28 AM EDT Miguel Lamb MD LAB POINT OF CARE TE ST DOCKED DEVICE UNSOLICITED RESULTS Final Result [facility] [address] [facility] [address] [place] [address] * (ABNORMAL) CBC and differential (09/18/2024 8:20 AM EDT) WBC Count 8.79 3.70 - 10.30 10*3/uL LAB HEMATOLOGY METHOD 09/18/2024 8:38 AM EDT [facility] RBC Count 2.65(L) 3.90 - 5.20 10*6/uL LAB HEMATOLOGY METHOD 09/18/2024 8:38 AM EDT [facility] HGB 7.2(L) 11.2 - 15.7 g/dL LAB HEMATOLOGY METHOD 09/18/2024 8:38 AM EDT [facility] HCT 24.6(L) 34.0 - 45.0 % LAB HEMATOLOGY METHOD 09/18/2024 8:38 AM EDT [facility] Platelet Count 358 155 - 369 10*3/uL LAB HEMATOLOGY METHOD 09/18/2024 8:38 AM EDT [facility] MCV 93 79 - 98 fL LAB HEMATOLOGY METHOD 09/18/2024 8:38 AM EDT [facility] MCH 27.2 26.0 - 32.0 pg LAB HEMATOLOGY METHOD 09/18/2024 8:38 AM EDT [facility] MCHC 29.3(L) 30.7 - 35.5 g/dL LAB HEMATOLOGY METHOD 09/18/2024 8:38 AM EDT [facility] RDW 16.0(H) 11.5 - 14.5 % LAB HEMATOLOGY METHOD 09/18/2024 8:38 AM EDT [facility] MPV 10.4 8.8 - 12.5 fL LAB HEMATOLOGY METHOD 09/18/2024 8:38 AM EDT [facility] nRBC 0.0 <=0.0 per 100 WBCs LAB HEMATOLOGY METHOD 09/18/2024 8:38 AM EDT [facility] Differential Type Automated LAB HEMATOLOGY METHOD 09/18/2024 8:38 AM EDT [facility] Neutrophils % 90 % LAB HEMATOLOGY METHOD 09/18/2024 8:38 AM EDT [facility] Lymphocytes % 6 % LAB HEMATOLOGY METHOD 09/18/2024 8:38 AM EDT [facility] Monocytes % 2 % LAB HEMATOLOGY METHOD 09/18/2024 8:38 AM EDT [facility] Eosinophils % 1 % LAB HEMATOLOGY METHOD 09/18/2024 8:38 AM EDT [facility] Basophils % 0 % LAB HEMATOLOGY METHOD 09/18/2024 8:38 AM EDT [facility] Immature Granulocytes % 1 % LAB HEMATOLOGY METHOD 09/18/2024 8:38 AM EDT [facility] Neutrophils Absolute 7.96(H) 1.60 - 6.10 10*3/uL LAB HEMATOLOGY METHOD 09/18/2024 8:38 AM EDT [facility] Lymphocytes Absolute 0.56(L) 1.20 - 3.90 10*3/uL LAB HEMATOLOGY METHOD 09/18/2024 8:38 AM EDT [facility] Monocytes Absolute 0.13(L) 0.30 - 0.90 10*3/uL LAB HEMATOLOGY METHOD 09/18/2024 8:38 AM EDT [facility] Eosinophils Absolute 0.07 0.00 - 0.50 10*3/uL LAB HEMATOLOGY METHOD 09/18/2024 8:38 AM EDT [facility] Basophils Absolute 0.02 0.00 - 0.10 10*3/uL LAB HEMATOLOGY METHOD 09/18/2024 8:38 AM EDT [facility] Immature Granulocytes Absolute 0.05 0.00 - 0.06 10*3/uL LAB HEMATOLOGY METHOD 09/18/2024 8:38 AM EDT [facility] Blood Venous blood specimen / Unknown Venipuncture / Unknown 09/18/2024 8:20 AM EDT 09/18/2024 8:26 AM EDT Narrative [facility] - 09/18/2024 8:38 AM EDT Therapeutic decision making should be based on absolute values, rather than percentages. us Miguel Lamb MD LAB BLOOD ORDERABLES Final Resu lt [facility] [address] [place] [address] * (ABNORMAL) Basic metabolic panel (09/18/2024 8:20 AM EDT) Glucose, Plasma 157(H) 74 - 99 mg/dL 09/18/2024 8:58 AM EDT [facility] BUN, Plasma 17 8 - 23 mg/dL 09/18/2024 8:58 AM EDT [facility] Creatinine, Plasma 1.05 0.60 - 1.10 mg/dL 09/18/2024 8:58 AM EDT [facility] BUN/Creatinine Ratio 16 09/18/2024 8:58 AM EDT [facility] Sodium, Plasma 138 136 - 145 mmol/L 09/18/2024 8:58 AM EDT [facility] Potassium, Plasma 4.5 3.6 - 4.9 mmol/L 09/18/2024 8:58 AM EDT [facility] Chloride, Plasma 100 97 - 107 mmol/L 09/18/2024 8:58 AM EDT [facility] CO2, Plasma 23 22 - 29 mmol/L 09/18/2024 8:58 AM EDT [facility] Anion Gap 15 6 - 16 mmol/L 09/18/2024 8:58 AM EDT [facility] Total Calcium, Plasma 9.4 8.9 - 10.2 mg/dL 09/18/2024 8:58 AM EDT [facility] eGFRcr 56.9 mL/min/1.7 3m*2 09/18/2024 8:58 AM EDT [facility] Comment:Reported eGFRcr in m L/min/1.73m2 is based the CKD-EPI 2020 equation that does not use a race coefficient. 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
--- OUTSIDE RECORDS SUMMARY | 2024-09-18 08:30 | XMS_ITS | Encounter Summary ---
Author Organization [facility] Address [address] [id number] Care Team Providers Care Textile Machine Operator Name Role Phone Mustapha James MD Primary Care Provider [phone] Miguel Lamb MD Unavailable [phone] Reason for Visit * Auth/Cert (Routine) Specialty Diagnoses / Procedures Referred By Contac t Referred To Contact Diagnoses S/P coronary artery stent placement S/P coronary artery stent placement [Z95.5] Procedures DE PRQ TRLUML CORONARY STENT W/ANGIO ONE ART/BRNCH Percutaneous coronary intervention Miguel Lamb MD [address] [place] [address] Phone: tel: fax: Cardiac Aviation Support Equipment Repairer [address] [place] [address] Phone: tel: Referral ID Status Reason Start Date Expiration Date Visits Re quested Visits Authorized [id number] 1 1 Encounter Details Date Type Department Care Team (Late st Contact Info) Description 09/18/2024 8:30 AM EDT - 09/18/2024 10:30 AM EDT Surgery Cardiac Aviation Support Equipment Repairer [address] [place] [address] Miguel Lamb MD [address] [place] [address] Percutaneous coronary intervention [50087 (CPT )] Surgery Details Date/Time Status Location OR Service Patient Class Case Class Case Type Trauma Case? 09/18/2024 8:30 AM Posted JULIETA PROCESS PUMPER CH PROCESS PUMPER 03 Cardiovascular [facility] Outpatient Surgery E-Elect marija Panel 1 Procedure [...] tablet by mouth daily. 07/24/2019 HYDROcodone-acet aminophen ([place]) 7.5-325 MG tablet Take 1 tablet by [...] from the original note were not included. [id number] Bleeding or Hematoma After Cardiac Catheterization You [...] on the site, and call 911 or [place] voice centermeone take you to the emergency room. [...] provider. Last Reviewed Date: 2024 00:00:00 ?? [id number] The [employer]. All rights reserved. This information is not [...] been discussed with the patient and/or their jewelry sales representative. All questions answered and they [...] 50 MCG/ACT nasal spray 1 spray, Daily Rukligegajt-Sdbesovsj-Ixecnn (Trelegy Ellipta) 100-62.5-25 MCG/ACT aerosol powder Inhale. furosemide (LASIX) 20 mg, Daily HYDROcodone-acetaminophen ([place]) 7.5-325 MG tablet 1 tablet, Every 8 [...] Fellow, PGY-6, Department of Cardiovascular Medicine Pager: [phone] [1] Past Medical History: Diagnosis Date COPD (chronic obstructive pulmonary disease) ([facility]) HLD (hyperlipidemia) HTN (hypertension) Lung cancer (CMS/HCC) [...] PM EDT Appointment Cardiac Imaging [address] [place] [id number] 01/04/2025 3:30 PM EDT Office Visit [facility] Zebulon Julieta 800 [facility]. [address] [place] [phone] Miguel Lamb MD [address] [place] [address] documented as of this encounter Procedures Procedure [...] of an overlapping 3.5 x 12 mm [place] drug-eluting stent. Ostium flared to 4.0. 3. Serial 70% diffuse lesions of the mid-distal RCA s/p successful PCI with placement of overlapping 3.0 x 26 mm and 2.75 x 30 mm [place] drug-eluting stents (proximal-distal). Recommendations: 1. Post-PCI EKG. [...] After confirming therapeutic activated clotting time, a [employer] Accounting[employer] wire was advanced beyond the lesion and into the distal RCA. We advanced an Emerge RX 2.5 x 20 mm balloon into the mid-dstial RCA lesion and inflated to 12 rachael. The balloon was withdrawn slightly and serial inflations performed using the same technique. We then advanced a 2.75 mm x 30 mm [place] Man[place]it drug eluting stent into the lesion and deployed at 12 rachael. We then placed and overlapping 3.0 x 26 mm [place] drug-eluting stent proximal to the aforementioend stent, inflated to 12 rachael. Post-dilation of the proximal-mid stent was then carried out using a 3.0 NC balloon. We then closely evaluated the ostium which appeared to have disease and appeared to be uncovered. We then advanced a 3.5 x 12 mm [place] drug- eluting stent in the proximal RCA [...] patient was transferred back to the laboratory sampler holding area in good condition. Coronary Findings [...] * POCT ACT (09/18/2024 9:52 AM EDT) [facility] ACT (Low Range) 352 65 - 400 seconds 09/26/2024 9:35 AM EDT HEALTHCARE LAB Sanitation Supervisor ID Fister-Mary Saenz 09/26/2024 9:35 AM EDT [facility] ACT Device ID [id number] 09/26/2024 9:35 AM EDT [facility] Comment 09/26/2024 9:35 AM EDT [facility] Comment: ACT performed by [...] UNSOLICITED RESULTS Final Result Performing Organization Address City/[facility]/ZIP Co de Phone Number HEALTHCARE LAB [address] LAB [address] [place] [address] * POCT ACT (09/18/2024 9:32 AM EDT) ACT (Low Range) 247 65 - 400 seconds 09/26/2024 9:35 AM EDT [facility] Sanitation Supervisor ID Fister-Me tc, Mary 09/26/2024 9:35 AM EDT [facility] ACT Device ID [id number] 09/26/2024 9:35 AM EDT HEALTHCARE LAB Comment 09/26/2024 9:35 AM EDT [facility] Comment: ACT performed by [...] UNSOLICITED RESULTS Final Result Performing Organization Address City/[facility]/ZIP Co de Phone Number HEALTHCARE LAB [address] LAB [address] [place] [address] * (ABNORMAL) POCT creatinine (09/18/2024 8:24 AM EDT) [facility] Creatinine, Point of Care 1.2(H) 0.6 - 1.1 mg/dL 09/18/2024 8:28 AM EDT HEALTHCARE LAB POCT eGFR 48 mL/min/1. 73m*2 09/18/2024 8:28 AM EDT HEALTHCARE LAB Sanitation Supervisor ID Rosangela Gallegos 09/18/2024 8:28 AM EDT HEALTHCARE LAB Device ID [id number] 09/18/2024 8:28 AM EDT HEALTHCARE LAB Comment 09/18/2024 8:28 AM EDT [facility] Comment:Testing performed on i-STAT at the point of care. Reported eGFRcr in mL/min/1.73m2 is based the CKD-EPI 2020 equation that does not use a race coefficient. Blood Venous blood specimen / Unknown 09/18/2024 8:24 AM EDT 09/18/2024 8:28 AM EDT Miguel Lamb MD LAB POINT OF CARE TE ST DOCKED DEVICE UNSOLICITED RESULTS Final Result HEALTHCARE LAB [address] LAB [address] [place] [address] * (ABNORMAL) CBC and differential (09/18/2024 8:20 AM EDT) Pathologist [facility] WBC Count 8.79 3.70 - 10.30 10*3/uL LAB HEMATOLOGY METHOD 09/18/2024 8:38 AM EDT [facility] RBC Count 2.65(L) 3.90 - 5.20 10*6/uL LAB HEMATOLOGY METHOD 09/18/2024 8:38 AM EDT [facility] HGB 7.2(L) 11.2 - 15.7 g/dL LAB HEMATOLOGY METHOD 09/18/2024 8:38 AM EDT [facility] HCT 24.6(L) 34.0 - 45.0 % LAB HEMATOLOGY METHOD 09/18/2024 8:38 AM EDT [facility] Platelet Count 358 155 - 369 10*3/uL LAB HEMATOLOGY METHOD 09/18/2024 8:38 AM EDT [facility] MCV 93 79 - 98 fL LAB HEMATOLOGY METHOD 09/18/2024 8:38 AM EDT [facility] MCH 27.2 26.0 - 32.0 pg LAB HEMATOLOGY METHOD 09/18/2024 8:38 AM EDT [facility] MCHC 29.3(L) 30.7 - 35.5 g/dL LAB HEMATOLOGY METHOD 09/18/2024 8:38 AM EDT [facility] RDW 16.0(H) 11.5 - 14.5 % LAB HEMATOLOGY METHOD 09/18/2024 8:38 AM EDT [facility] MPV 10.4 8.8 - 12.5 fL LAB HEMATOLOGY METHOD 09/18/2024 8:38 AM EDT [facility] nRBC 0.0 <=0.0 per 100 WBCs LAB HEMATOLOGY METHOD 09/18/2024 8:38 AM EDT [facility] Differential Type Automated LAB HEMATOLOGY METHOD 09/18/2024 8:38 AM EDT [facility] Neutrophils % 90 % LAB HEMATOLOGY METHOD 09/18/2024 8:38 AM EDT [facility] Lymphocytes % 6 % LAB HEMATOLOGY METHOD 09/18/2024 8:38 AM EDT [facility] Monocytes % 2 % LAB HEMATOLOGY METHOD 09/18/2024 8:38 AM EDT [facility] Eosinophils % 1 % LAB HEMATOLOGY METHOD 09/18/2024 8:38 AM EDT [facility] Basophils % 0 % LAB HEMATOLOGY METHOD 09/18/2024 8:38 AM EDT [facility] Immature Granulocytes % 1 % LAB HEMATOLOGY METHOD 09/18/2024 8:38 AM EDT [facility] Neutrophils Absolute 7.96(H) 1.60 - 6.10 10*3/uL LAB HEMATOLOGY METHOD 09/18/2024 8:38 AM EDT [facility] Lymphocytes Absolute 0.56(L) 1.20 - 3.90 10*3/uL LAB HEMATOLOGY METHOD 09/18/2024 8:38 AM EDT [facility] Monocytes Absolute 0.13(L) 0.30 - 0.90 10*3/uL LAB HEMATOLOGY METHOD 09/18/2024 8:38 AM EDT [facility] Eosinophils Absolute 0.07 0.00 - 0.50 10*3/uL LAB HEMATOLOGY METHOD 09/18/2024 8:38 AM EDT [facility] Basophils Absolute 0.02 0.00 - 0.10 10*3/uL LAB HEMATOLOGY METHOD 09/18/2024 8:38 AM EDT [facility] Immature Granulocytes Absolute 0.05 0.00 - 0.06 10*3/uL LAB HEMATOLOGY METHOD 09/18/2024 8:38 AM EDT [facility] Blood Venous blood specimen / Unknown Venipuncture / Unknown 09/18/2024 8:20 AM EDT 09/18/2024 8:26 AM EDT Narrative [facility] - 09/18/2024 8:38 AM EDT Therapeutic decision making should be based on absolute values, rather than percentages. us Miguel Lamb MD LAB BLOOD ORDERABLES Final Resu lt [facility] [address] [place] [address] * (ABNORMAL) Basic metabolic panel (09/18/2024 8:20 AM EDT) Glucose, Plasma 157(H) 74 - 99 mg/dL 09/18/2024 8:58 AM EDT [facility] BUN, Plasma 17 8 - 23 mg/dL 09/18/2024 8:58 AM EDT [facility] Creatinine, Plasma 1.05 0.60 - 1.10 mg/dL 09/18/2024 8:58 AM EDT [facility] BUN/Creatinine Ratio 16 09/18/2024 8:58 AM EDT [facility] Sodium, Plasma 138 136 - 145 mmol/L 09/18/2024 8:58 AM EDT [facility] Potassium, Plasma 4.5 3.6 - 4.9 mmol/L 09/18/2024 8:58 AM EDT [facility] Chloride, Plasma 100 97 - 107 mmol/L 09/18/2024 8:58 AM EDT [facility] CO2, Plasma 23 22 - 29 mmol/L 09/18/2024 8:58 AM EDT [facility] Anion Gap 15 6 - 16 mmol/L 09/18/2024 8:58 AM EDT [facility] Total Calcium, Plasma 9.4 8.9 - 10.2 mg/dL 09/18/2024 8:58 AM EDT [facility] eGFRcr 56.9 mL/min/1.7 3m*2 09/18/2024 8:58 AM EDT [facility] Comment:Reported eGFRcr in m L/min/1.73m2 is based the CKD-EPI 2020 equation that does not use a race coefficient. Blood Venous blood specimen / Unknown Venipuncture / Unknown 09/18/2024 8:20 AM EDT 09/18/2024 8:27 AM EDT us Miguel Lamb MD LAB BLOOD ORDERABLES Final Resu lt [facility] [address] [place] [address] documented in this encounter Visit Diagnoses Diagnosis S/P coronary artery stent placement- Primary Postsurgical percutaneous transluminal coronary angioplasty status Coronary artery disease involving [place] coronary artery of [place] heart with angina pectoris ([facility]) S/P coronary artery stent placement Postsurgical percutaneous [...] documented as of this encounter Care Teams Textile Machine Operator Relationship Specialty Start Date End Date Mustapha James MD [facility] [place] [address] [place] [address] PCP - General 09/05/20 Miguel Lamb MD [address] [place] [address] Referring Physician Interventional Cardiology 08/16/24 documented as of this encounter
--- OUTSIDE RECORDS SUMMARY | 2024-11-14 12:31 | XMS_ITS | Continuity of Care Document ---
Author Organization [facility]. If a dditional information is needed, contact Health Information Management at [phone] Address [address] [place] [address] Phone Care Team Providers Care Division Officer Weapons Department Name Role Phone Unavailable Unavailable Unavailable Encounters pre-admission 13-Apr-2023 14:06 ROSALINDA (Attending) Tristen
--- OUTSIDE RECORDS SUMMARY | 2024-11-14 12:33 | XMS_ITS | Encounter Summary ---
Author Organization [employer] ([place], [place], [place], [place]) Address [address] [place] [address] Care Team Providers Care A And P Technician Name Role Phone Unavailable Primary Care Provider Unavailabl e Encounter Details Date Type Department Care Team (Late st Contact Info) Description 03/14/2019 Transcribed Document [facility] [place] [facility] [place] [address] ProviderRegina MD [address] [place] [address] Social History Tobacco Use Types Packs/Day [...] Regina Henley MD - 03/14/2019 4:22 PM CALENDERING MACHINE OPERATOR [facility] [address] THOMAS GTZ SRIRAM :1955 Visit Time:03/14/2019 Your Visit Summary Your Care Team Admitting Physician - TONY PEÑA MD-SUR Attending Physician - TONY PEÑA MD-SUR Primary Care Physician - JACKIE BABIN MD-FAM Referring Physician - JACKIE BABIN MD-FAM PHY, NONE Your Diagnosis Atherosclerosis of [place] arteries of extremities with intermittent claudication, unspecified extremity, Atherosclerosis of [place] arteries of extremities with intermittent claudication, unspecified [...] Appointment has been made, with [facility] Where: [address] [place], [place] [phone] Medications What How Much When Instructions Next Dose acetaminophen-hydrocodone ([place] 7.5 mg-325 mg oral tablet) 1 Tablet(s) [...] you are awake and alert. ??? Take xgpk-rjm-fnaiyqw and prescription medicines only as told by [...] 01/30/2014 Document Revised: 09/13/2016 Document Reviewed: 07/31/2016 [employer] Interactive Patient Education ?? 2019 [employer] Angiogram, Care After This sheet gives [...] and water are not available, use hand change management administrator. ? Change your dressing as told by [...] contrast dye from your body. ??? Take ywtk-dzc-anzbhdk and prescription medicines only as told by [...] 10/28/2005 Document Revised: 03/16/2017 Document Reviewed: 03/16/2017 [employer] Interactive Patient Education ?? 2019 [employer] Angiogram An angiogram is a procedure [...] including vitamins, herbs, eye drops, creams, and pgsk-cfc-hlcqbfe medicines. ??? Any problems you or family [...] 01/19/2006 Document Revised: 08/16/2017 Document Reviewed: 05/18/2017 [employer] Interactive Patient Education ?? 2019 [employer] Intermittent Claudication Intermittent claudication is pain [...] calories. Consider working with a diet and child nutrition assistant (dietitian) to help you make healthy [...] blood pressure, or high cholesterol. ??? Take wzkg-vvj-hesktah and prescription medicines only as told by [...] 02/11/2005 Document Revised: 05/12/2017 Document Reviewed: 05/12/2017 [employer] Interactive Patient Education ?? 2019 [employer]. Peripheral Vascular Disease Peripheral vascular disease (PVD) [...] activities for you. General instructions ??? Take axme-iwi-riwqtsw and prescription medicines only as told by [...] 05/19/2005 Document Revised: 05/19/2017 Document Reviewed: 05/19/2017 [employer] Interactive Patient Education ?? 2019 [employer] Emergency Awareness and Preventative Care STROKE [...] Assistance with quitting is available by contacting 0-282-JAECNOW. This is a free resource providing counseling, [...] CPR? There are two easy steps: Call 9-1-1 if you see a teen or adult [...] between ( 70 and 105 ) Patient Name:THOMAS GTZ I have received and understand this information and was given the opportunity to ask questions. Patient/Equity Manager Name: Patient/Equity Manager Signature: Relationship to Patient: Clinician/Hospital Equity Manager Signature: Date: documented in this encounter Plan of Treatment Not on file documented as of this encounter Visit Diagnoses Not on filedocumented in this encounter
--- OUTSIDE RECORDS SUMMARY | 2024-11-14 12:33 | XMS_ITS | Encounter Summary ---
Author Organization [employer] ([place], [place], [place], [place]) Address [address] [place] [address] Care Team Providers Care Orbitread Operator Name Role Phone Unavailable Primary Care Provider Unavailabl e Encounter Details Date Type Department Care Team (Late st Contact Info) Description 02/12/2019 Transcribed Document [facility] [place] [facility] [place] [address] ProviderRegina [place] [address] Social History Tobacco Use Types [...] Regina ProviderMD - 02/12/2019 2:12 PM CDT [facility] Main OR IntraOp Summary Primary Physician: TONY PEÑA MD-SUR Finalized Date/Time: 02/13/19 11:43:16 Pt. Name: JODI GTZ SRIRAM Reynolds/Sex: 1955 Female Med Rec #: [id number] Physician: TONY PEÑA MD-SUR Financial #: [id number] Pt. Type: O Room/Bed: /11 Admit/Disch: 02/12/19 09:27:00 - 02/12/19 18:10:00 Institution: [facility] IntraOp Case Attendance Entry 1 Entry 2 Entry 3 Case Attendee TONY PEÑA MD-SUR Napier, Elizabeth A, RN Murphy, Whitney, [employer] Role Performed Surgeon/Proceduralist, J2Ee Programmer, First Reptile Keeper First Time In 02/12/19 13:51:00 02/12/19 13:51:00 [...] CALDWELL, JOSEPH A, ROMARIO COWAN MD-ANS Cardiovascular Reptile Keeper Role Performed Reptile Keeper WAREHOUSE ADMINISTRATIVE ASSISTANT/Nurse Hoisting Laborer Anesthesiologist of Record Time In 02/12/19 13:51:00 [...] Lexus Linda, Martha Zamora RN Role Performed J2Ee Programmer, First J2Ee Programmer, Second Time In 02/12/19 14:55:00 02/12/19 13:51:00 Time Out 02/12/19 15:09:00 02/12/19 15:09:00 Procedure Aortogram Abdominal Aortogram Abdominal with Runoff(Right), with Runoff(Right), Arterial Stent Arterial Stent Endovascular(Right) Endovascular(Right) Other Attendee Superficial Wound Closed By: Last Modified By: Lexus Linda, Rn Adilene Dhillon RN 02/12/19 15:50:49 02/13/19 07:01:08 [facility] IntraOp Case Attendance Audit 02/13/19 07:01:21 Architectural Technologist: JONN Modifier: EANAPIER 8 <*> Procedure Aortogram Abdominal with Runoff(Right), Arterial Stent Endovascular(Right) 02/13/19 07:01:08 Architectural Technologist: JONN Modifier: EANAPIER 1 <*> Procedure Aortogram [...] with Runoff(Right), Arterial Stent Endovascular(Right) 02/13/19 07:01:03 Architectural Technologist: MEDARDO Modifier: EANAPIER 2 <*> Time Out 02/12/19 15:09:00 2 <*> Procedure Aortogram Abdominal with Runoff(Right), Arterial Stent Endovascular(Right) <+> 8 Case Attendee <+> 8 Role Performed <+> 8 Procedure 02/12/19 15:53:28 Architectural Technologist: SUSANSLOAN Modifier: SUSANSLOAN 7 <*> Time In 02/12/19 15:55:00 7 <*> Procedure Aortogram Abdominal with Runoff(Right), Arterial Stent Endovascular(Right) 02/12/19 15:51:08 Architectural Technologist: SUSANSLOAN Modifier: SUSANSLOAN 7 <*> Procedure Arterial Stent Endovascular(Right) 02/12/19 15:50:49 Architectural Technologist: SUSANSLOAN Modifier: SUSANSLOAN 7 <*> Time Out 02/12/19 15:48:00 7 <*> Procedure Arterial Stent Endovascular(Right) 02/12/19 15:50:15 Architectural Technologist: SUSANSLOAN Modifier: SUSANSLOAN 7 <+> Role Performed 7 <*> Procedure Arterial Stent Endovascular(Right) 02/12/19 15:49:22 Architectural Technologist: EANAPIER Modifier: SUSANSLOAN 1 <+> Time Out [...] Time Out <+> 7 Procedure 02/12/19 14:50:28 Architectural Technologist: EANAPIER Modifier: EANAPIER 1 <*> Procedure Aortogram Abdominal with Runoff(Right) 2 <*> Procedure Aortogram Abdominal with Runoff(Right) 3 <*> Procedure Aortogram Abdominal with Runoff(Right) 4 <*> Procedure Aortogram Abdominal with Runoff(Right) 5 <*> Procedure Aortogram Abdominal with Runoff(Right) 6 <*> Procedure Aortogram Abdominal with Runoff(Right) 02/12/19 14:30:54 Architectural Technologist: EANAPIER Modifier: EANAPIER 1 <*> Procedure Aortogram Abdominal with Runoff(Right) 2 <*> Procedure Aortogram Abdominal with Runoff(Right) 3 <*> Procedure Aortogram Abdominal with Runoff(Right) 4 <*> Procedure Aortogram Abdominal with Runoff(Right) 5 <*> Procedure Aortogram Abdominal with Runoff(Right) 6 <+> Time In 6 <*> Procedure Aortogram Abdominal with Runoff(Right) 02/12/19 14:24:03 Architectural Technologist: EANAPIER Modifier: EANAPIER 1 <*> Case Attendee TONY PEÑA MD-JESUS 1 <*> Role Performed Surgeon/Proceduralist, First 1 <*> Time In 02/12/19 13:51:00 1 <*> Procedure Aortogram Abdominal with Runoff(Right) 2 <*> Case Attendee Adilene Dhillon RN 2 <*> Role Performed J2Ee Programmer, First 2 <*> Time In 02/12/19 13:51:00 2 <*> Procedure Aortogram Abdominal with Runoff(Right) 3 <*> Case Attendee Mayra Castrejon, RadTech 3 <*> Role Performed Reptile Keeper 3 <*> Time In 02/12/19 13:51:00 3 <*> Procedure Aortogram Abdominal with Runoff(Right) 4 <*> Case Attendee Coco Pfeiffer, Cardiovascular Reptile Keeper 4 <*> Role Performed Reptile Keeper 4 <*> Time In 02/12/19 13:51:00 4 <*> Procedure Aortogram Abdominal with Runoff(Right) 5 <*> Case Attendee EVERETT FREED WAREHOUSE ADMINISTRATIVE ASSISTANT 5 <*> Role Performed WAREHOUSE ADMINISTRATIVE ASSISTANT/Nurse Hoisting Laborer 5 <*> Time In 02/12/19 13:51:00 5 <*> Procedure Aortogram Abdominal with Runoff(Right) Entry 6 was deleted. Higher numbered entries shifted one position to fill the gap. <-> 6 Case Attendee MUSTAPHA DUTTON MD-ANS <-> 6 Role Performed Anesthesiologist of Record <-> 6 Time In 02/12/19 13:51:00 <-> 6 Procedure Aortogram Abdominal with Runoff(Right) 02/12/19 14:15:54 Architectural Technologist: EANAPILUIS Modifier: EANAPIER <+> 1 Procedure 2 <+> Time In 2 <*> Procedure Aortogram Abdominal with Runoff(Right) 3 <+> Time In 3 <*> Procedure Aortogram Abdominal with Runoff(Right) 4 <+> Time In 4 <*> Procedure Aortogram Abdominal with Runoff(Right) 5 <+> Time In 5 <*> Procedure Aortogram Abdominal with Runoff(Right) 6 <+> Time In 6 <*> Procedure Aortogram Abdominal with Runoff(Right) 02/12/19 14:13:18 Architectural Technologist: HARSHPILUIS Modifier: EANAPIER <+> 2 Case Attendee <+> 2 Role Performed <+> 2 Procedure <+> 3 Case Attendee <+> 3 Role Performed <+> 3 Procedure <+> 4 Case Attendee <+> 4 Role Performed <+> 4 Procedure <+> 5 Case Attendee <+> 5 Role Performed <+> 5 Procedure <+> 6 Case Attendee <+> 6 Role Performed <+> 6 Procedure [facility] IntraOp Case Times Entry 1 Patient In Room Time 02/12/19 13:51:00 Out Room Time 02/12/19 15:09:00 Anesthesia Start Time 02/12/19 13:51:00 Stop Time 02/12/19 15:09:00 Surgery / Procedure Times Start Time 02/12/19 14:12:00 Stop Time 02/12/19 15:00:00 Last Modified By: Lexus Linda Rn 02/12/19 15:21:58 [facility] IntraOp Case Times Audit 02/12/19 15:21:58 Architectural Technologist: JONN Modifier: MEDARDO <+> 1 Out Room Time <+> 1 Stop Time <+> 1 Stop Time 02/12/19 14:11:48 Architectural Technologist: HARSHPILUIS Modifier: EANAPIER <+> 1 Start Time [facility] IntraOp Communication Entry 1 Communication To Family/Significant other Comment START Date and Time 02/12/19 14:13:00 Last Modified By: Adilene Dhillon RN 02/12/19 14:12:21 [facility] IntraOp Departure from OR Entry 1 Integumentary Assessment Integumentary WDL Assessment WDL Transfer/Handoff Transfer to Other Handoff Method Phone call Post-op Transport Stretcher/[facility] Via Patient Transport Lexus Linda Rn Accompanied by Transfer/Handoff PT TRANSPORTED TO [facility] Last Modified By: Lexus Linda Rn 02/12/19 15:48:30 General Comments: CALLED TO Arthur Gonzalez NURSE [facility] IntraOp Departure from OR Audit 02/12/19 15:49:29 Architectural Technologist: MEDARDO Modifier: MEDARDO <+> 1 Patient Transport Accompanied by [facility] IntraOp Dressing and Packing Entry 1 Type Dressing Location OPSITE Wound Dressing Item 4x4's Applied By TONY PEÑA MD-JESUS Other Comments TEGADERM Last Modified By: Adilene Dhillon RN 02/12/19 14:09:39 [facility] IntraOp Fire Risk Assessment Entry 1 Fire [...] Modified By: Adilene Dhillon RN 02/12/19 14:09:55 [facility] IntraOp Fire Risk Assessment Audit 02/12/19 14:13:31 Architectural Technologist: HARSHPILUIS Modifier: EANAPIER <+> 1 Fire Risk Assessment Verified By <+> 1 Fire Risk Assessment Verified Date/Time 02/12/19 14:12:26 Architectural Technologist: EASTEPHANIEPILUIS Modifier: EANAPIER 1 <-> Fire Risk Assessment Verified 02/12/19 14:10:00 Date/Time [facility] IntraOp General Case Car Audio Installer 1 Case Information OR OR 20 [facility] Case Level 1 Room Verified Yes Wound Class I - Clean Specialty SN Endovascular Anesthesia Type MAC ASA Class 3 Diagnosis Preop Diagnosis BILATERAL LOWER EXTREMITY CLAUDICATION Postop Same As Preop No Postop Diagnosis SEE MD NOTE Last Modified By: Adilene Dhillon RN 02/12/19 14:13:47 [facility] IntraOp General Case Data Audit 02/12/19 14:20:37 Architectural Technologist: JONN Modifier: EANAPIER <+> 1 Preop Diagnosis [facility] IntraOp Implant Log Entry 1 Entry 2 Entry 3 Type Implant (Synthetic) Implant (Synthetic) Implant (Synthetic) Implant Log Implant Type Other Tissue Implant Type Implant STENT LS EXP VASC CVR [id number] STENT LS EXP VASC CVR Identification [id number] Description Implant Quantity 1 1 1 Implant Site LEFT COMMON ILIAC ARTERY RIGHT COMMON ILIAC RIGHT COMON ILIAC ARTERY ARTERY Implant [id number] Identification Model Number Implant Identification Serial Number Implant [id number] Identification Lot Number Implant Cr Bard:Peripheral Vasc Cr Bard:Peripheral Vasc Identification Food Service Assistant Name: Implant [id number] Identification Catalog Number Implant Size 7.9 X 24.6 MM 7.9 X 37 MM Implant Has an Yes Yes Yes Expiration Date Implant Expiration 07/23/21 11/22/21 11/22/21 Date Wasted Radioactive Material Time Implanted Tissue Implant Continue for Tissue Implant Documentation Tissue Identification Number Graft Prep Per Food Service Assistant Instructions: Tissue Preparation Method: Reconstitution Solution: Reconstitution Solution Lot Number Reconstitution Solution Expiration Date: Thawing Solution Thawing Solution Lot Number Thawing Solution Expiration Date Preparation Materials, Other Preparation Materials, Other Lot Number Preparation Materials, Other Expiration Date Tissue Prepared/Processed By Food Service Assistant Paperwork Completed Implant Type Comment Last Modified By: Adilene Dhillon RN Napier, Elizabeth A, RN Sloan, Susan, Rn 02/12/19 14:37:35 02/12/19 14:39:27 02/12/19 15:46:28 Entry 4 Entry 5 Entry 6 Type Implant (Synthetic) Implant (Synthetic) Implant (Synthetic) Implant Log Implant Type Other Tube(s) Other Tissue Implant Type Implant STNT BLLN ENDO VBX DEVICE MYNX FISHING TOOL SUPERVISOR 6F/ 7F DEVICE MYNX FISHING TOOL SUPERVISOR 6F/ 7F Identification [id number] Description Implant Quantity 1 1 1 Implant Site RIGHT EXTERNAL ILIAC RIGHT FEMORAL LEFT FEMORAL ARTERY ARTERY Implant [id number] Identification Model Number Implant [id number] Identification Serial Number Implant [id number] Identification Lot Number Implant [facility] [place] [employer] [facility]:Med Prdt Access Closure Access Closure Identification Food Service Assistant Name: Implant [id number] Identification Catalog Number Implant Size Implant Has an Yes Yes Yes Expiration Date Implant Expiration 07/29/21 01/22/21 01/22/21 Date Wasted Radioactive Material Time Implanted Tissue Implant Continue for Tissue Implant Documentation Tissue Identification Number Graft Prep Per Food Service Assistant Instructions: Tissue Preparation Method: Reconstitution Solution: Reconstitution Solution Lot Number Reconstitution Solution Expiration Date: Thawing Solution Thawing Solution Lot Number Thawing Solution Expiration Date Preparation Materials, Other Preparation Materials, Other Lot Number Preparation Materials, Other Expiration Date Tissue Prepared/Processed By Food Service Assistant Paperwork Completed Implant Type Comment Last Modified By: Lexus Linda Rn Sloan, Susan, Rn Sloan, Susan, Rn 02/12/19 15:46:28 02/12/19 15:46:28 02/12/19 15:46:28 [facility] IntraOp Implant Log Audit 02/12/19 15:46:28 Architectural Technologist: JONN Meng: MEDARDO 1 <*> Implant Identification Description STENT LS EXP VASC CVR [id number] <+> 3 Implant Identification Description <+> 3 Implant Identification Lot Number <+> 3 Implant Identification Food Service Assistant Name: <+> 3 Implant Expiration Date <+> 3 Implant Site <+> 3 Implant Quantity <+> 3 Implant Identification Catalog Number <+> 3 Implant Type <+> 3 Implant Identification Model Number <+> 3 Implant Has an Expiration Date <+> 3 Type <+> 4 Implant Identification Description <+> 4 Implant Identification Serial Number <+> 4 Implant Identification Food Service Assistant Name: <+> 4 Implant Expiration Date <+> 4 Implant Site <+> 4 Implant Quantity <+> 4 Implant Identification Catalog Number <+> 4 Implant Type <+> 4 Implant Identification Model Number <+> 4 Implant Has an Expiration Date <+> 4 Type <+> 5 Implant Identification Description <+> 5 Implant Identification Lot Number <+> 5 Implant Identification Food Service Assistant Name: <+> 5 Implant Expiration Date <+> 5 Implant Site <+> 5 Implant Quantity <+> 5 Implant Identification Catalog Number <+> 5 Implant Type <+> 5 Implant Identification Model Number <+> 5 Implant Has an Expiration Date <+> 5 Type <+> 6 Implant Identification Description <+> 6 Implant Identification Food Service Assistant Name: <+> 6 Implant Expiration Date <+> 6 Implant Site <+> 6 Implant Quantity <+> 6 Implant Identification Catalog Number <+> 6 Implant Type <+> 6 Implant Identification Model Number <+> 6 Implant Has an Expiration Date <+> 6 Type 02/12/19 14:39:27 Architectural Technologist: JONN Modifier: JONN <+> 2 Implant Identification Description <+> 2 Implant Identification Lot Number <+> 2 Implant Size <+> 2 Implant Expiration Date <+> 2 Implant Site <+> 2 Implant Quantity <+> 2 Implant Has an Expiration Date <+> 2 Type [facility] IntraOp Intraoperative Assessment Entry 1 Handoff Method [...] Modified By: Adilene Dhillon RN 02/13/19 06:58:24 [facility] IntraOp Intraoperative Assessment Audit 02/13/19 06:58:24 Architectural Technologist: EANAPIER Modifier: EANAPIER 1 <*> Skin Assessment Verified Yes 1 <+> Handoff Method [facility] IntraOp Intraoperative Equipment Entry 1 Type Monitoring Equipment Intraop Monitoring Electrocardiogram Three lead placement (ECG) Electrode Placement Blood Pressure Non-Invasive BP Device Source Blood Pressure Arm, right upper Location Pulse Oximeter Hand, left Probe Site Antiembolic Devices Scopes Photo/Video Documentation Last Modified By: Adilene Dhillon RN 02/12/19 14:15:38 [facility] IntraOp Medication Admin Entry 1 Entry 2 Entry 3 Medication/Irrigant CESAR VISIPAQUE 320MG 150 lidocaine 1% 50ml vial CESAR NACL 0.9PCT HPRN 200ML --[id number] - [id number] 1000U .5L --[id number] Combo Med List Time Administered Route of [...] RN 02/12/19 14:14:13 02/12/19 14:14:13 02/12/19 14:14:13 [facility] IntraOp Medication Admin Audit 02/13/19 06:57:26 Architectural Technologist: EANAPIER Modifier: EANAPIER <+> 1 Dose [facility] IntraOp Patient Positioning Entry 1 Procedure Aortogram [...] Modified By: Adilene Dhillon RN 02/13/19 06:59:18 [facility] IntraOp Patient Positioning Audit 02/13/19 06:59:18 Architectural Technologist: JONN Modifier: EANAPIER 1 <*> Procedure Aortogram Abdominal with Runoff(Right), Arterial Stent Endovascular(Right) 1 <*> Positioning Devices Head Rest, Safety Strap, Thighs, Sled Arm Rest 1 <*> Positioned By TONY PEÑA MD-JESUS 02/12/19 14:50:30 Architectural Technologist: HARSHPIER Modifier: EANAPIER 1 <*> Procedure Aortogram Abdominal with Runoff(Right) [facility] IntraOp Sign In Entry 1 Patient, Site, [...] Modified By: Adilene Dhillon RN 02/12/19 14:14:44 [facility] IntraOp Sign Out Entry 1 RN Confirmation [...] Modified By: Adilene Dhillon RN 02/12/19 14:15:04 [facility] IntraOp Sign Out Audit 02/12/19 15:49:49 Architectural Technologist: JONN Modifier: JOHNAN <+> 1 RN Sign Out Signature Date/Time 02/12/19 14:16:46 Architectural Technologist: JONN Modifier: EANAPIER 1 <*> Urinary Catheter Documented in IView N/A [facility] IntraOp Skin Prep Entry 1 Procedure Aortogram Abdominal with Runoff(Right), Arterial Stent Endovascular(Right) Prescribed N/A Pre-Surgical Prep Completed Prep Area BILATERAL GROINS Intraop Prep Integumentary WDL Assessment WDL Prep Agents Chloraprep Prep by Adilene Dhillon RN Hair Removal Methods No hair removal performed Last Modified By: Adilene Dhillon RN 02/12/19 14:13:55 [facility] IntraOp Skin Prep Audit 02/12/19 14:50:30 Architectural Technologist: JONN Modifier: EANAPIER 1 <*> Procedure Aortogram Abdominal with Runoff(Right) [facility] IntraOp Surgical Procedures Entry 1 Entry 2 [...] Elizabeth A, RN 02/13/19 07:00:03 02/12/19 14:50:24 [facility] IntraOp Surgical Procedures Audit 02/13/19 07:00:03 Architectural Technologist: MEDARDO Modifier: EANAPIER 1 <*> Procedure Aortogram Abdominal with Runoff 1 <*> Additional Procedure Description (AORTOGRAM WITH RT LEG REVASCULARIZATION) 02/12/19 15:49:57 Architectural Technologist: JONN Modifier: ROSALINDALOAN 1 <*> Procedure Aortogram Abdominal with Runoff 1 <+> Stop <+> 2 Stop 02/12/19 14:54:15 Architectural Technologist: JONN Modifier: HARSHPIER 1 <*> Procedure Aortogram Abdominal with Runoff 02/12/19 14:50:24 Architectural Technologist: JONN Modifier: HARSHPIER <+> 2 Procedure <+> 2 Primary Procedure <+> 2 Modifiers <+> 2 Primary Surgeon <+> 2 Specialty <+> 2 Start <+> 2 Wound Class <+> 2 Anesthesia Type [facility] IntraOP Time Out Entry 1 Procedure to [...] Modified By: Adilene Dhillon RN 02/12/19 14:50:31 [facility] IntraOP Time Out Audit 02/12/19 14:50:31 Architectural Technologist: JONN Modifier: HARSHPIER 1 <*> Procedure to be Performed Aortogram Abdominal with Runoff(Right) [facility] IntraOp X-Ray and Images Entry 1 X-Ray/Imaging Type Fluoroscopy Fluoroscopy Type Fixed Ammonia Operator Name Mayra Castrejon [employer] Protective Devices Yes [...] JORGE Correct Billing Electronically signed by Mickey, [facility] Conversion Machine Operator Picker Cerner at 08/13/2022 11:13 AM CDT documented in this encounter Plan of Treatment Not on file documented as of this encounter Visit Diagnoses Not on filedocumented in this encounter
--- OUTSIDE RECORDS SUMMARY | 2024-11-14 12:33 | XMS_ITS | Encounter Summary ---
Author Organization [employer] ([place], [place], [place], [place]) Address [address] [place] [address] Care Team Providers Care Shear Tender Name Role Phone Unavailable Primary Care Provider Unavailabl e Encounter Details Date Type Department Care Team (Late st Contact Info) Description 02/12/2019 Transcribed Document [facility] [place] Family Medicine [facility] [place] [address] ProviderRegina MD [address] [place] [address] Social History Tobacco Use Types [...] Document Reviewed: 05/14/2011 ExitCare? Patient Information ?2013 [employer]Care's. Angiogram, Care After This sheet gives you [...] and water are not available, use hand malt roaster. ? Change your dressing as told by [...] contrast dye from your body. ??? Take slal-wvo-mfrlvvq and prescription medicines only as told by [...] 10/28/2005 Document Revised: 03/16/2017 Document Reviewed: 03/16/2017 [employer] Interactive Patient Education ? 2019 [employer] Moderate Conscious Sedation, Adult, Care After [...] you are awake and alert. ??? Take hjir-ayv-syhtlom and prescription medicines only as told by [...] 01/30/2014 Document Revised: 09/13/2016 Document Reviewed: 07/31/2016 [employer] Interactive Patient Education ? 2019 [employer] documented in this encounter Plan of Treatment Not on file documented as of this encounter Visit Diagnoses Not on filedocumented in this encounter
--- OUTSIDE RECORDS SUMMARY | 2024-11-14 12:33 | XMS_ITS | Clinical Summary ---
Author Organization [employer] ([place], [place], [place], [place]) Address [address] [place] [address] Care Team Providers Care Program Clinician Name Role Phone Unavailable Primary Care Provider [...] Date Mathew rded Speak language other than Pakistani at home Not on file 05/13/2023 Want [...]
--- OUTSIDE RECORDS SUMMARY | 2024-11-14 12:33 | XMS_ITS | Clinical Summary ---
Author Organization [facility] Address [address] [place] [address] Care Team Providers Care Immunology Specialist Name Role Phone Mustapha James MD Primary Care Provider + Allergies Active Allergy Reactions Criticality Noted Date Comments Atorvastatin Myalgia High 08/23/2022 Contrast Dye (Echo Or Unknown Ct/Mr) Anaphylaxis,Hives,Swe lling High 08/21/2021 Pseudoephedrine Palpitations Low 08/21/2021 Meperidine Other (See Comments) 08/21/2021 nonresponsive Rosuvastatin Myalgia High 08/23/2022 Simvastatin Myalgia High 08/23/2022 Medications Repatha SureClick solution auto-injector SureClick injection 022 Active fluticasone (FLONASE) 50 MCG/ACT nasal spray Administer 2 sprays into the nostril(s) as directed by provider Daily. Active cetirizine (zyrTEC) 10 MG tablet Take 1 tablet by mouth Daily. Active multivitamin with minerals tablet tablet Take 1 tablet by mouth Daily. Active clopidogrel (PLAVIX) 75 MG tablet Active montelukast (SINGULAIR) 10 MG tablet 023 Active famotidine (PEPCID) 20 MG tablet Take 1 tablet by mouth 2 (Two) Times a Day. Active Fluticasone-Umecl idin-Vilant (Trelegy Ellipta) 100-62.5-25 MCG/ACT inhalerIndication s:Panlobular emphysema Inhale 1 puff Daily. 1 each 023 Active albuterol sulfate HFA 108 (90 Base) MCG/ACT inhaler 023 Active aspirin 81 MG EC tablet Take 1 tablet by mouth Daily. Active baclofen (LIORESAL) 10 MG tabletIndications :Fibromyalgia Take 1 tablet by mouth Every Night. 30 tablet 2 024 Active Bempedoic Acid 180 MG tabletIndications :Coronary artery disease involving houl[place] coronary artery of [place]oul[place] heart without angina pectoris Take 1 tablet by mouth Daily. 30 tablet 024 Active lisinopril (PRINIVIL,ZESTRIL ) 20 MG tablet TAKE 1 TABLET BY MOUTH ONCE DAILY 30 tablet 025 Active levothyroxine (SYNTHROID, LEVOTHROID) 50 MCG tabletIndications :Acquired hypothyroidism TAKE 1 TABLET BY MOUTH ONCE DAILY 30 tablet 5 025 Active lansoprazole (PREVACID) 30 MG capsule Take 1 capsule by mouth Daily. 30 capsule 025 Active nystatin-triamcin olone (MYCOLOG II) 078832-9.1 UNIT/GM-% creamIndications: Intertrigo Apply 1 Application topically to the appropriate area as directed 2 (Two) Times a Day. 60 g 025 Active nitroglycerin (NITROSTAT) 0.4 MG SL tabletIndications :Coronary artery disease involving [place]oul[place] coronary artery of houl[place] heart without angina pectoris TAKE ONE TABLET BY MOUTH UNDER TONGUE NEEDED FOR PAIN DIRECTED 25 tablet 025 Active coenzyme Q10 50 MG capsule capsule Take by mouth Daily. Active metoprolol succinate XL (TOPROL-XL) 50 MG 24 hr tabletIndications :Coronary artery disease involving [place]oul[place] coronary artery of houl[place] heart without angina pectoris Take 1.5 tablets by mouth Daily. 45 tablet 025 Active Iron, Ferrous Sulfate, 325 (65 Fe) MG tabletIndications :Coronary artery disease involving [place] coronary artery of [place] heart without angina pectoris,Other iron deficiency anemia Take 1 tablet by mouth Daily. 30 tablet 2 025 Active diazePAM (VALIUM) 5 MG tabletIndications :Generalized anxiety disorder TAKE 1 TABLET BY MOUTH EVERY 6 (SIX) HOURS NEEDED FOR ANXIETY MAY CAUSE DROWSINESS 120 tablet 2 025 Active torsemide (DEMADEX) 20 MG tablet Take 1 tablet by mouth Daily. 30 tablet 025 Active vitamin D (ERGOCALCIFEROL) 1.25 MG (89960 UT) capsule capsule TAKE 1 CAPSULE BY MOUTH 1 (ONE) TIME PER WEEK. 5 capsule 2 025 Active HYDROcodone-aceta minophen (NORCO) 7.5-325 MG per tabletIndications :Failed back syndrome of lumbar spine,Spondylosis of lumbar region without myelopathy or radiculopathy,Art hritis of lumbar spine TAKE 1 TABLET BY MOUTH EVERY 8 HOURS NEEDED FOR MODERATE PAIN. 90 tablet 025 Active furosemide (LASIX) 20 MG tablet 022 2024 Discontinued vitamin D (ERGOCALCIFEROL) 1.25 MG (75784 UT) capsule capsule TAKE 1 CAPSULE BY MOUTH 1 (ONE) TIME PER WEEK. 5 capsule 3 025 2024 Discontinued HYDROcodone-aceta minophen (NORCO) 7.5-325 MG per tabletIndications :Failed back syndrome of lumbar spine,Spondylosis of lumbar region without myelopathy or radiculopathy,Art hritis of lumbar spine TAKE 1 TABLET BY MOUTH EVERY 8 (EIGHT) HOURS NEEDED FOR MODERATE PAIN. 90 tablet 025 2024 Discontinued Active Problems Problem Noted Date Diagnosed Date Nonrheumatic aortic (valve) stenosis 07/24/2024 ERRONEOUS ENCOUNTER--DISREGARD 01/06/2024 NSCLC of right lung 03/01/2023 Cancer Staging:Clinical stage from 08/18/2023:Stage IB(cT2a, cN0, cM0) - Signed by Derik Conn APRN on 08/18/2023 Peripheral artery disease 03/02/2022 Lung nodule 11/25/2021 Overview (11/25/2021): 09/2021- stable 14mm RUL nodule Fibromyalgia 11/25/2021 Class 1 obesity due to exces s calories with serious comorbidity and body mass index (BMI) of 33.0 to 33.9 in adult 11/25/2021 Failed back syndrome of lumbar spine 08/21/2021 Chronic pain syndrome 08/21/2021 Spondylosis of cervical roman on without myelopathy or radiculopathy 08/21/2021 Coronary artery disease invo lving houlton coronary artery of [place] heart without angina pectoris 08/21/2021 Overview (01/24/2024): Furnace Attendant Dr. Omar Chavez Assessment & Plan (01/24/2024 3:35 PM EDT): Condition is stable. Continue regular follow-up with [facility] cardiology. Regarding her LDL goal of less than 55 this is only achievable for the patient with combination therapy. She will continue Repatha. I have prescribed bempedoic acid although anticipate this will need a prior authorization and likely be cost prohibitive. Consideration could also be given to Levidhivio which patient should discuss with her swim instructor. Lipid panel will be ordered today Pulmonary emphysema 08/21/2021 Overview (08/21/2021): Portal Administrator Dr. Ally James Acquired hypothyroidism 08/21/2021 Assessment & Plan (06/08/2024 1:33 PM EST): Orders: TSH Rfx On Abnormal To Free T4 GERD without esophagitis 08/21/2021 Generalized anxiety disorder 08/21/2021 Essential hypertension 08/21/2021 Assessment & Plan (06/08/2024 1:33 PM EST): Orders: Albumin/Creatinine Ratio Urine Degenerative joint disease (DJD) of lumbar spine 08/03/2021 Assessment & Plan (06/08/2024 1:33 PM EST): Resolved Problems Problem Noted Date Diagnosed Date Resolved Date Paroxysmal atrial fibrillation 08/21/2021 11/25/2021 Encounters Date Type Department Care Team Description 11/02/[address] [facility] [address] [id number] Mustapha James MD Failed back syndrome of lumbar spine; Spondylosis of lumbar region without myelopathy or radiculopathy; Arthritis of lumbar spine 10/31/[address] [facility] [address] [place] [address] Mustapha James MD 10/24/[address] [facility] [address] [place] [address] Mustapha James MD 10/18/[address] [facility] [address] [place] [address] Mustapha James MD Advice Only 10/11/[address] [facility] [address] [place] [address] Mustapha James MD Fluid Retention 09/27/[address] [facility] [address] [place] [address] Mustapha James MD Failed back syndrome of lumbar spine; Spondylosis of lumbar region without myelopathy or radiculopathy; Arthritis of lumbar spine; Generalized anxiety disorder 09/27/[address] [facility] [address] [place] [address] Mustapha James MD OVERNIGHT STUDY 09/26/[address] [facility] [address] [place] [address] Mustapha James MD Advice Only 09/11/[address] [facility] [address] [place] [address] Mustapha James MD 09/10/2024 Results Follow-Up [facility] [address] [place] [address] Mustapha James MD 09/07/2024 2:00 PM EDT Office Visit [facility] [address] [place] [address] Mustapha James MD Anemia due to blood loss (Primary Dx); assisted (current) use of opiate analgesic; Long-term current use of benzodiazepine; Coronary artery disease involving houl[place] coronary artery of houl[place] heart without angina pectoris; Moderate aortic valve stenosis; Chronic pain syndrome; Failed back syndrome of lumbar spine; Panlobular emphysema; Angina decubitus 09/07/2024 Travel 08/30/[address] [facility] [address] [place] [address] Mustapha James MD Failed back syndrome of lumbar spine; Spondylosis of lumbar region without myelopathy or radiculopathy; Arthritis of lumbar spine 08/16/2024 Telephone [facility] [address] [place] [address] Mustapha James MD Advice Only 08/16/2024 Telephone [facility] [address] [place] [id number] Radha Aguayo, RN from Last 3 Months Immunizations Immunization Administration Dates Next Due ABRYSVO (RSV, 60+ or pregnan t women 32-36 wks) 08/04/2023 COVID-19 (MODERNA) 1st,2nd,3 rd Dose Monovalent 04/01/2021,08/06/2020,07/09/2020 COVID-19 (MODERNA) BIVALENT 12+YRS 02/24/2022 Fluzone High-Dose 65+YRS 01/24/2024,01/23/2019,1 Fluzone High-Dose 65+yrs 03/31/2023,03/02/2022,1 Pneumococcal Conjugate 20-Valent (PCV20) 023 Pneumococcal Polysaccharide (PPSV23) 09/30/2015 Pneumococcal, Unspecified 01/23/2019 Tdap 06/30/2015 Family History Medical History Relation Name Comments Arthritis Brother Hyperlipidemia Brother Cirrhosis Father Cirrhosis Mother Arthritis Sister Cancer Sister ovarian Hyperlipidemia Sister Hypertension Sister Thyroid disease Sister Relation Name Status Comments Brother Father Mother Sister Social History Tobacco Use Types Packs/Day Years Used Date Smoking Tobacco: Some Days Cigarettes 0.5 50 Started: 04/26/1972; Last attempted to quit: 04/26/2022 Smokeless Tobacco: Never Tobacco Cessation:Ready to Q uit: No; Counseling Given: Not Answered Comments:Pt is trying to quit. She usually smokes in response to stressfull events Alcohol Use Standard Drinks/Week Comments Not Currently 0 (1 standard drink = 0.6 oz pur e alcohol) PHQ-2 Answer Date Recorded Retired PHQ-9: Brief Depression Severity Measure Score 0 03/01/2023 Abuse Screen Answer Date Recorded Feels Unsafe at Home or Work/School no 03/01/2023 Feels Threatened by Someone no 10/2022 Does Anyone Try to Keep You From Having Contact with Others or Doing Things Outside Your Home? no 03/01/2023 Physical Signs of Abuse Present no 03/01/2023 PHQ-2 Answer Date Recorded Patient Health Questionnaire-2 Score 0 07/24/2024 Comments Unknown Sex and Gender Information Value Date Recorded Sex Assigned at Not on file Legal Sex Female 1:05 PM EDT Gender Identity Not on file Sexual Orientation Not on file Occupation Industry Job Start Date Job End Date Disabled - chronic back pain and fibromyalgia Not on f ile Not on file Not on file Last Filed Vital Signs Vital Sign Reading Time Taken Comments Blood Pressure 120/62 09/07/2024 2:04 PM EDT Pulse 88 09/07/2024 2:04 PM EDT Temperature 36.4 C (97.5 F) 09/07/2024 2:04 PM EDT Respiratory Rate 20 09/07/2024 2:04 PM EDT Oxygen Saturation 95% 07/24/2024 11:19 AM EDT Inhaled Oxygen Concentration - - Weight 92.6 kg (204 lb 3.2 oz) 09/07/2024 2:04 P M EDT Height 160 cm (5' 3 ) 09/07/2024 2:04 PM EDT Body Mass Index 36.17 09/07/2024 2:04 PM EDT Plan of Treatment Upcoming Encounters Date Type Department Care Team (Late st Contact Info) Description 11/26/2024 1:15 PM EDT Appointment [facility] [place] [address] [place] [address] 12/06/2024 2:00 PM EDT Office Visit [facility] [address] [place] [address] Chirag Mckee MD [address] [place] [address] 12/27/2024 2:00 PM EDT Office Visit [facility] [address] [place] [address] Mustapha James MD [address] [place] [address] Health Maintenance Due Date Last Done Comments DXA SCAN 1955 ZOSTER VACCINE (1 of 2) 1972 COLOGUARD 1998 COLON CANCER SCREENING 5 YEA R SIGMOIDOSCOPY 1998 CT COLONOGRAPHY 1998 FECAL OCCULT BLOOD TEST 1998 FIT Testing (1 year) 1998 HEPATITIS C SCREENING 07/24/2021 COVID-19 Vaccine (2023-2 5 season) 2023 02/24/2022, 04/01/2021, 08/06/2020, Additional history exists INFLUENZA VACCINE 01/23/2025 01/24/2024, , 03/02/2022, Additional history exists MAMMOGRAM 05/19/2025 05/19/2023 ANNUAL WELLNESS VISIT 06/08/2025 06/08/2024 , 03/31/2023, 03/31/2023, Additional history exists TDAP/TD VACCINES (2 - Td or Tdap) 06/29/2025 016 COLONOSCOPY 02/09/2031 02/09/2021 COLORECTAL CANCER SCREENING 02/09/2031 HEMOGLOBIN A1C Discontinued 06/03/2022, 06/23, 07/04/2019 Pneumococcal Vaccine 50+ Completed 023, 01/23/2019, 09/30/2015 URINE MICROALBUMIN-CREATININ E RATIO (uACR) Discontinued 06/08/2024 LUNG CANCER SCREENING Discontinued 08/15/2024 , 08/15/2024, 02/14/2024, Additional history exists Procedures Procedure Name Priority Date/Time Associated Diagnosis Comments SCANNED - IMAGING 11/08/2024 SCANNED - LABS 11/05/2024 SCANNED - LABS 11/05/2024 SCANNED - LABS 11/05/2024 FERRITIN Routine 09/07/2024 2:42 PM EDT Anemia due to blood loss IRON PROFILE Routine 09/07/2024 2:42 PM EDT Anemia due to blood loss CBC (NO DIFF) Routine 09/07/2024 2:42 PM EDT Anemia due to blood loss SCANNED - IMAGING 08/21/2024 SCANNED - IMAGING 08/16/2024 CT OUTSIDE CHEST Routine 08/15/2024 12:[address] OUTSIDE ABD/PELVIS Routine 08/15/2024 12:00 AM EDT POC ALBUMIN/CREATININE RATIO Routine 06/08/2024 1:03 PM EST Essential hypertension CT CHEST WO CONTRAST DIAGNOSTIC Routine 02/14/2024 3:12 PM EDT NSCLC of right lung SCANNED - MAMMO 05/19/2023 HEMOGLOBIN A1C Routine 06/03/2022 2:35 PM EST Paresthesia and pain of both upper extremities Prediabetes from Last 3 Months or Most Recently Relevant to Health Maintenance Results * IMAGING SCANNED (11/08/2024) Only the most recent of3 resultswithin the time period is included. Anatomical Region Laterality Modality Radiographic Chery ging us Mustapha James MD IMG DIAGNOSTIC IMAGING O RDERABLES Final Result * LABS SCANNED (11/05/2024) Only the most recent of3 resultswithin the time period is included. Mustapha James MD LAB BLOOD ORDERABLES Fin al Result * (ABNORMAL) Iron Profile (09/07/2024 2:42 PM EDT) Pathologist [facility] TIBC 454(H) 250 - 450 ug/dL [facility] UIBC 431(H) 118 - 369 ug/dL [facility] Iron 23(L) 27 - 139 ug/dL [facility] Iron Saturation 5(L) 15 - 55 % [facility] Blood 09/07/2024 2:42 PM EDT 09/07/2024 Narrative [facility] (AMBULATORY) - 09/08/2024 8:11 AM EDT Performed at: - [address] [id number] [employer] Attendant: Jason Bullock PhD, Phone: [phone] Patient Fasting: Y Mustapha James MD LAB BLOOD ORDERABLES Fin al Result [facility] [address] [place] [address], [facility] [address] [place] [address], * (ABNORMAL) CBC (No Diff) (09/07/2024 2:42 PM EDT) Pathologist [facility] WBC 10.1 3.4 - 10.8 x10E3/uL [facility] RBC 2.89(L) 3.77 - 5.28 x10E6/uL [facility] Hemoglobin 7.9(L) 11.1 - 15.9 g/dL [facility] Hematocrit 26.7(L) 34.0 - 46.6 % [facility] MCV 92 79 - 97 fL [facility] MCH 27.3 26.6 - 33.0 pg [facility] MCHC 29.6(L) 31.5 - 35.7 g/dL [facility] RDW 14.5 11.7 - 15.4 % [facility] Platelets 298 150 - 450 x10E3/uL [facility] Blood 09/07/2024 2:42 PM EDT 09/07/2024 Narrative [facility] ([facility]) - 09/08/2024 8:11 AM EDT Performed at: [address] [place] [address] [address] [place], [place] [id number] [employer] Attendant: Jason Bullock PhD, Phone: [phone] Patient Fasting: Y Mustapha James MD LAB BLOOD ORDERABLES Fin al Result Performing Organization Address [facility] Co de Phone Number [facility] (AMBULATORY) [address] [place] [address], [place] [phone] [facility] [address] [place] [address], [place] [phone] * (ABNORMAL) Ferritin (09/07/2024 2:42 PM EDT) [facility] Ferritin 14(L) 15 - 150 ng/mL [facility] Blood 09/07/2024 2:42 PM EDT 09/07/2024 Narrative [facility] ([facility]ORY) - 09/08/2024 8:11 AM EDT Performed at: [address] [place] [address] [place] [id number] [employer] Attendant: Jason Bullock PhD, Phone: [phone] Patient Fasting: Y Mustapha James MD LAB BLOOD ORDERABLES Fin al Result Performing Organization Address City/[facility]/ZIP Co de Phone Number [facility] (AMBULATORY) [address] [place] [address], [place] [phone] [facility] [address] [place] [address], [place] [phone] * CT Outside Chest (08/15/2024 12:05 AM EDT) Narrative SYSTEMGENERATED, DOCUMENTATION - 08/16/2024 2:19 PM EDT This procedure was auto-finalized with no dictation required. Result [facility] us Chirag Mckee MD IM CT ORDERABLES Final Resul t * CT Outside Abd/Pelvis (08/15/2024 12:00 AM EDT) Narrative SYSTEMGENERATED, DOCUMENTATION - 08/16/2024 2:19 PM EDT This procedure was auto-finalized with no dictation required. us Chirag Mckee MD [facility] CT ORDERABLES Final Resul t * (ABNORMAL) Albumin/Creatinine Ratio Urine (06/08/2024 1:03 PM EST) POC ALBUMIN, URINE 10 mg/L POC CREATININE, URINE 10 mg/dL POC Urine Albumin Creatinine Ratio 30-300 <30 Comment:abnormal Lot Number [id number] Expiration Date 03/24/2025 Urine 06/08/2024 1:03 PM EST Result [facility] Mustapha James MD POINT OF CARE TEST ORDER LUCERO Final Result * SCANNED - MAMMO (05/19/2023) Anatomical Region Laterality Modality Other Result [facility] Mustapha James MD CHART REVIEW TABS Fin al Result * (ABNORMAL) Hemoglobin A1c (06/03/2022 2:35 PM EST) Hemoglobin A1C 5.7(H) 4.8 - 5.6 % [facility] Comment: Prediabetes: 5.7 - 6.4 Diabetes: >6.4 Glycemic control for adults with diabetes: <7.0 Blood 06/03/2022 2:35 PM EST 06/03/2022 Narrative [facility] (AMBULATORY) - 06/04/2022 10:36 AM EST Performed at: [facility] [id number] [employer] Attendant: Jason Bullock PhD, Phone: [phone] Result [facility] Mustapha James MD LAB BLOOD ORDERABLES Fin al Result [facility] (AMBULATORY) [address] [place] [address], [place] [phone] [facility] [address] [place] [address], [place] [phone] from Last 3 Months or Most Recently Relevant to Health Maintenance Insurance [employer] PPO Advance Directives Documents on File Type Date Recorded Patient Organ Pipe Voicer Expl anation POWER OF LABORATORY EQUIPMENT CLEANER - SCAN 09/13/2022 11:26 AM POWER OF LABORATORY EQUIPMENT CLEANER, [facility], 02/05/2022 Care Teams Immunology Specialist Relationship Specialty Start Date End Date Mustapha James MD [address] [facility] [place] [address] PCP - General Family Medicine 01/02/24
--- OUTSIDE RECORDS SUMMARY | 2024-11-14 12:33 | XMS_ITS | Encounter Summary ---
Author Organization [employer] ([place], [place], [place], [place]) Address [address] [place] [address] Care Team Providers Care Radio Mechanic Name Role Phone Unavailable Primary Care Provider Unavailabl e Encounter Details Date Type Department Care Team (Late st Contact Info) Description 02/12/2019 Transcribed Document [facility] [place] [facility] [place] [address] ProviderRegina MD [facility] [place] [address] Social History Tobacco Use Types [...] ProviderMD - 02/12/2019 2:12 PM CDT [facility] Main OR Preop Summary Primary Physician: TONY PEÑA MD-SUR Finalized Date/Time: 02/12/19 18:38:33 Pt. Name: THOMAS GTZ SRIRAM Reynolds/Sex: 1955 Female Med Rec #: [id number] Physician: TONY PEÑA MD-SUR Financial #: [id number] Pt. Type: O Room/Bed: HIS/11 Admit/Disch: 02/12/19 09:27:00 - 02/12/19 18:10:00 Institution: [facility] PreOp Case Times Entry 1 In Preop 02/12/19 09:40:00 Ready for Holding n/a Room Patient Ready for 02/12/19 11:13:00 Surgery Patient Out of Preop 02/12/19 13:49:00 Patient Out of n/a Holding Room Last Modified By: SHAHLA GOODMAN RN 02/12/19 18:38:24 Finalized By: SHAHLA GOODMAN, RN Document Signatures Signed By: HSAHLA GOODMAN RN 02/12/19 18:38 Electronically signed by Mickey [facility] Conversion Rubber Cutting Machine Tender Cerner at 08/13/2022 11:16 AM CDT documented in this encounter Plan of Treatment Not on file documented as of this encounter Visit Diagnoses Not on filedocumented in this encounter
--- OUTSIDE RECORDS SUMMARY | 2024-11-14 12:33 | XMS_ITS | Encounter Summary ---
Author Organization [employer] ([place], [place], [place], [place]) Address [address] [place] [address] Care Team Providers Care Boathouse Keeper Name Role Phone Unavailable Primary Care Provider Unavailabl e Encounter Details Date Type Department Care Team (Late st Contact Info) Description 02/12/2019 Transcribed Document [facility] Family Medicine [facility] [place] [address] ProviderRegina MD [address] [place] [address] Social History Tobacco Use Types Packs/Day [...] Performed On: 02/12/2019 15:39 EDT by NAOMI MONETS RN Discharge Documentation Discharge Date/Time : 02/12/2019 [...] 15:39 EDT Electronically signed by Mickey [facility] Conversion Substation Engineer Cerner at 08/13/2022 11:19 AM CDT documented in this encounter Plan of Treatment Not on file documented as of this encounter Visit Diagnoses Not on filedocumented in this encounter
--- OUTSIDE RECORDS SUMMARY | 2024-11-14 12:33 | XMS_ITS | Encounter Summary ---
Author Organization [employer] ([place], [place], [place], [place]) Address [address] [place] [address] Care Team Providers Care Mixer Machine Feeder Name Role Phone Unavailable Primary Care Provider Unavailabl e Encounter Details Date Type Department Care Team (Late st Contact Info) Description 02/12/2019 Transcribed Document [facility] Radiology [address] [place] [address] Martinez Miller MD [address] [facility] [place] [address] Social History Tobacco Use Types Packs/Day Years [...] with large thigh collaterals with reconstitution of [id number] popliteal artery. 3. Recanalization of occluded right common iliac artery and placement of an 8 x 38 [employer] within the proximal right common with a kissing 8 x 27 left common iliac artery stent. 4. Distal right common iliac artery was treated with an 8 x 38 stent, and right external iliac artery occlusion was treated with a 7 x 39 [place] VBX. OPERATIVE DESCRIPTION: The patient was taken back to the operating room, placed in a supine on the operating room table. Following IV sedation, bilateral groins were widely prepped and draped in a standard sterile fashion. Time-out was taken. Under ultrasound guidance, left common femoral artery was accessed with a Micropuncture needle. A 5-[place] sheath was placed. Flush catheter was advanced [...] technique was used and a 7-[place] sheath was advanced into the [place] aorta from the right femoral artery to [...] was treated with a 7 x 39 [place] VBX stent. Excellent results were achieved upon completion. Normal pulsatile flow was present within the right common femoral artery. Mynx closure device was used bilaterally. The patient was then taken back to Recovery in stable condition. No complications. /[id number] MD FARHAN NguyenA/BRIANNA / NNA / MODL /[id number] documented in this encounter Plan of Treatment Not on file documented as of this encounter Visit Diagnoses Not on filedocumented in this encounter
--- OUTSIDE RECORDS SUMMARY | 2024-11-14 12:33 | XMS_ITS | Encounter Summary ---
Author Organization [employer] ([place], [place], [place], [place]) Address [address] [place] [address] Care Team Providers Care Business Law Professor Name Role Phone Unavailable Primary Care Provider Unavailabl e Encounter Details Date Type Department Care Team (Late st Contact Info) Description 03/14/2019 Transcribed Document [facility] [place] Family Medicine [facility] [address] ProviderRegina MD [address] [place] [address] Social History Tobacco Use Types Packs/Day Years Used Date Smoking Tobacco: Never Assessed Comments Unknown Sex and Gender Information Value Date Recorded Sex Assigned at Not on file Legal Sex Female 5:00 PM CDT Gender Identity Not on file Sexual Orientation Not on file documented as of this encounter Miscellaneous Notes * Cerner Conversion Note - Regina ProviderMD - 03/14/2019 12:37 PM STUD [employer] [facility] Main OR Preop Summary Primary Physician: TONY PEÑA MD-SUR Finalized Date/Time: 03/14/19 13:13:44 Pt. Name: THOMAS GTZ SRIRAM Reynolds/Sex: 1955 Female Med Rec #: [id number] Physician: TONY PEÑA MD-SUR Financial #: [id number] Pt. Type: O Room/Bed: Admit/Disch: 03/14/19 09:48:00 - Institution: [facility] PreOp Case Times Entry 1 In Preop 03/14/19 10:14:00 Ready for Holding n/a Room Patient Ready for 03/14/19 11:25:00 Surgery Patient Out of Preop 03/14/19 12:14:00 Patient Out of n/a Holding Room Last Modified By: Susie Hernández, RN 03/14/19 13:13:43 [facility] PreOp Case Times Audit 03/14/19 13:13:43 Rn Intern: WRIGHTVP Modifier: WRIGHTVP <+> 1 Patient Out of Preop 03/14/19 11:25:55 Rn Intern: WRIGHTVP Modifier: WRIGHTVP <+> 1 Patient Ready for Surgery Finalized By: Susie Hernández RN Document Signatures Signed By: Susie Hernández RN 03/14/19 13:13 Electronically signed by Mickey [facility] Conversion Food Products Sales Representative Cerner at 08/13/2022 11:17 AM CDT documented in this encounter Plan of Treatment Not on file documented as of this encounter Visit Diagnoses Not on filedocumented in this encounter
--- OUTSIDE RECORDS SUMMARY | 2024-11-14 12:33 | XMS_ITS | Encounter Summary ---
Author Organization [employer] ([place], [place], [place], [place]) Address [address] [place] [address] Care Team Providers Care Surface Plate Inspector Name Role Phone Unavailable Primary Care Provider Unavailabl e Encounter Details Date Type Department Care Team (Late st Contact Info) Description 03/14/2019 Transcribed Document [facility] Family Medicine [address] [place] [address] ProviderRegina MD [address] [place] [address] Social History Tobacco Use Types [...] Regina Henley MD - 03/14/2019 4:15 PM WAREHOUSE PERSON Patient Education Materials Follows: Moderate Conscious Sedation, [...] you are awake and alert. ??? Take gral-gku-zclonll and prescription medicines only as told by [...] 01/30/2014 Document Revised: 09/13/2016 Document Reviewed: 07/31/2016 [employer] Interactive Patient Education ? 2019 [employer] Angiogram, Care After This sheet gives [...] and water are not available, use hand graduate studies dean. ? Change your dressing as told by [...] contrast dye from your body. ??? Take lfcc-jrj-dwbhckf and prescription medicines only as told by [...] 10/28/2005 Document Revised: 03/16/2017 Document Reviewed: 03/16/2017 [employer] Interactive Patient Education ? 2019 [employer] Angiogram An angiogram is a procedure [...] including vitamins, herbs, eye drops, creams, and gjty-dul-xzvcdus medicines. ??? Any problems you or family [...] 01/19/2006 Document Revised: 08/16/2017 Document Reviewed: 05/18/2017 [employer] Interactive Patient Education ? 2019 [employer] Cardiovascular Intermittent Claudication Intermittent claudication is [...] calories. Consider working with a diet and graphic design specialist (dietitian) to help you make healthy [...] blood pressure, or high cholesterol. ??? Take cxqd-ulh-hvaejkh and prescription medicines only as told by [...] 02/11/2005 Document Revised: 05/12/2017 Document Reviewed: 05/12/2017 [employer] Interactive Patient Education ? 2019 [employer] Peripheral Vascular Disease Peripheral vascular disease [...] activities for you. General instructions ??? Take ietx-jam-hvzkzcg and prescription medicines only as told by [...] 05/19/2005 Document Revised: 05/19/2017 Document Reviewed: 05/19/2017 [employer] Interactive Patient Education ? 2019 [employer] documented in this encounter Plan of Treatment Not on file documented as of this encounter Visit Diagnoses Not on filedocumented in this encounter
--- OUTSIDE RECORDS SUMMARY | 2024-11-14 12:33 | XMS_ITS | Referral Summary ---
Author Organization [employer] ([place], [place], [place], [place]) Address [address] [place] [address] Care Team Providers Care Kinesiology Internship Name Role Phone Unavailable Primary Care Provider [...] Date Mathew rded Speak language other than Vietnamese at home Not on file 05/13/2023 Want [...]
--- OUTSIDE RECORDS SUMMARY | 2024-11-14 12:33 | XMS_ITS | Encounter Summary ---
Author Organization [employer] ([place], [place], [place], [place]) Address [address] [place] [address] Care Team Providers Care Cyber Systems Engineer Name Role Phone Unavailable Primary Care Provider Unavailabl e Encounter Details Date Type Department Care Team (Late st Contact Info) Description 03/14/2019 Transcribed Document [facility] Radiology [address] [place] [address] Martinez Miller MD [address] [facility] [place] [address] Social History Tobacco Use Types Packs/Day Years [...] allow for placement and advancement of a 6-[place] sheath. 3. Catheter placement within the aorta. 4. Aortography demonstrating patency of bilateral common iliac artery stents. 5. Inability to access the occluded left superficial femoral artery through an antegrade fashion. 6. Successful recanalization of occluded superficial femoral artery through pedal access and placement of a 5 x170 LifeStent. OPERATIVE DESCRIPTION: The patient was taken back to the labor arbitrator hearing office and placed in supine position. Following IV [...] Attempts to advance a radio to peripheral 6-[place] sheath was performed, fortunately successful. This got [...] successfully with a micropuncture wire. A low-profile 6-[place] sheath was placed. Left lower extremity angiogram [...] Recovery in stable condition. No immediate complications. /[id number] Martinez Miller MD NNA/AQ / NNA / MODL /[id number] documented in this encounter Plan of Treatment Not on file documented as of this encounter Visit Diagnoses Not on filedocumented in this encounter
--- OUTSIDE RECORDS SUMMARY | 2024-11-14 12:33 | XMS_ITS | Encounter Summary ---
Author Organization [employer] ([place], [place], [place], [place]) Address [address] [place] [address] Care Team Providers Care Sales Representative Electric Service Name Role Phone Unavailable Primary Care Provider Unavailabl e Encounter Details Date Type Department Care Team (Late st Contact Info) Description 02/12/2019 Transcribed Document [facility] Radiology [address] [place] [address] Martinez Miller MD [address] [facility] [place] [id number] Social History Tobacco Use Types Packs/Day Years [...] skin and nails, Oral, Daily, 0 Refill(s) [place] 7.5 mg-325 mg oral tablet: 1 Tab, [...] Medication hair, skin and nails, Oral, Daily [place] 7.5 mg-325 mg oral tablet 1 Tab, [...] Problems Cervical spinal stenosis / SNOMED CT 035135903 / Confirmed Smoker / SNOMED CT 847743280 / Confirmed Sinusitis / SNOMED CT 62200007 / Confirmed Seasonal allergies / SNOMED CT 037886190 / Confirmed Restless leg / SNOMED CT 42299358 / Confirmed Colon polyps / SNOMED CT 629005151 / Confirmed Pneumonia / SNOMED CT 223220234 / Confirmed Peripheral vascular disease / SNOMED CT 1469613763 / Confirmed Peptic ulcer / SNOMED CT 78503410 / Confirmed Osteoporosis / SNOMED CT 091376844 / Confirmed Neuropathy, R arm / SNOMED CT 1247379437 / Confirmed Migraines / SNOMED CT 60896926 / Confirmed Skin cancer / SNOMED CT 2897013141 / Confirmed Hypertension / SNOMED CT 5653442185 / Confirmed Hyperlipidemia / SNOMED CT 59618727 / Confirmed Elevated cholesterol / SNOMED CT 64375020 / Confirmed Hiatal hernia / SNOMED CT 813446331 / Confirmed Hemorrhoids / SNOMED CT 688952206 / Confirmed H/O: TIA / SNOMED CT 585657644 / Confirmed GERD (gastroesophageal reflux disease) / SNOMED CT 734898936 / Confirmed Gastritis / SNOMED CT 9518260 / Confirmed Fibromyalgia / SNOMED CT 05081591 / Confirmed Fibroids / SNOMED CT 786829639 / Confirmed Endometriosis / SNOMED CT 0088198791 / Confirmed Diverticulitis / SNOMED CT 457538113 / Confirmed Sinus problem / SNOMED CT 5456661788 / Confirmed Known medical problems / SNOMED CT 289667180 / Confirmed white spots on MRI Known medical problems / SNOMED CT 100265245 / Confirmed anti nuclear A and A antibodies Constipation / SNOMED CT 24262186 / Confirmed COPD (chronic obstructive pulmonary disease) / SNOMED CT 92428329 / Confirmed Chronic cough / SNOMED CT 260422547 / Confirmed Chronic constipation / SNOMED CT 706953152 / Confirmed Stroke, possible / SNOMED CT 163596899 / Confirmed Bursitis / SNOMED CT 220873655 / Confirmed Bronchitis / SNOMED CT 78508186 / Confirmed Back pain / SNOMED CT 150403611 / Confirmed Arthritis / SNOMED CT 0693850 / Confirmed Anemia / SNOMED CT 071967809 / Confirmed Allergic rhinitis / SNOMED CT 025091698 / Confirmed, Active Problems (39) Allergic rhinitis [...] LE weakness, uses cane. Integumentary: Warm, Dry, [place]. Neurologic: Alert, Oriented. Psychiatric: Cooperative, Appropriate mood & affect. Review / Management Results review: No qualifying data available. Impression and Plan Condition: Stable. documented in this encounter Plan of Treatment Not on file documented as of this encounter Visit Diagnoses Not on filedocumented in this encounter
--- OUTSIDE RECORDS SUMMARY | 2024-11-14 12:33 | XMS_ITS | Encounter Summary ---
Author Organization [employer] ([place], [place], [place], [place]) Address [address] [place] [address] Care Team Providers Care Edge Inker Uppers Name Role Phone Unavailable Primary Care Provider Unavailabl e Encounter Details Date Type Department Care Team (Late st Contact Info) Description 02/09/2019 Transcribed Document [facility] [place] Family Medicine [facility] [place] [address] ProviderRegina MD [address] [place] [address] Social History Tobacco Use Types Packs/Day [...] Source : Measured Height Entry Format : [place] Height, Inches : 63 Inch(Converted to: 5 ft 3 Inch, 160.02 cm) Clinical Height : 160.02 cm Weight Source : Standing scale Weight Entry Format : [place] Clinical Dosing Weight : 85.91 kg Weight, Pounds : 189 lb Body Surface Area (BSA) : 1.89 m2 Body Mass Index : 33.6 kg/m2 (HI) [place] Body Weight : 52 kg ABRAHAM STOKES RN - 02/12/2019 11:04 EDT Health Histories Smoking Status : 4 or less cigarettes(less than 1/4 pack)/day in last 30 days Smokeless Tobacco Status : Never Desires Tobacco Cessation Medication : No Reason for No Tobacco Cessation Medication : Refuses FDA approved medications Implant/Device Type, Box Blank Machine Operator and Model : neck fusion and lumbar [...] Obtained From : Patient Primary Language : Turkish Communication Barrier : None MARY MCGRAW RN [...] : Yes Gender Male : No MARY MCGARW RN - 02/09/2019 15:36 EDT documented in this encounter Plan of Treatment Not on file documented as of this encounter Visit Diagnoses Not on filedocumented in this encounter
--- OUTSIDE RECORDS SUMMARY | 2024-11-14 12:33 | XMS_ITS | Encounter Summary ---
Author Organization [facility] Address [address] [id number] Care Team Providers Care Medical Records Technician Name Role Phone Mustapha James MD Primary Care Provider [phone] Miguel Lamb MD Unavailable [phone] Encounter Details Date Type Department Care Team (Late st Contact Info) Description 11/02/2024 Telephone [facility] Vascular [facility] [address] [phone] [place] [address] Social History Tobacco Use Types Packs/Day Years [...] PM EDT Appointment Cardiac Imaging [address] [place] [phone] 01/04/2025 3:30 PM EDT Office Visit [facility] Vascular [facility] [address] [facility] [place] [phone] Miguel Lamb MD [address] [place] [address] documented as of this encounter [...] documented as of this encounter Care Teams Medical Records Technician Relationship Specialty Start Date End Date Mustapha James MD [address] [place] [address] PCP - General 09/05/20 Miguel Lamb MD [address] [place] [address] Referring Physician Interventional Cardiology 08/16/24 documented as of this encounter
--- OUTSIDE RECORDS SUMMARY | 2024-11-14 12:33 | XMS_ITS | Encounter Summary ---
Author Organization [employer] ([place], [place], [place], [place]) Address [address] [place] [address] Care Team Providers Care Collection Coordinator Name Role Phone Unavailable Primary Care Provider Unavailabl e Encounter Details Date Type Department Care Team (Late st Contact Info) Description 03/13/2019 Transcribed Document [facility] [place] Medicine [facility] [place] [address] ProviderRegina MD [facility] [place] [address] Social History Tobacco Use Types [...] - Historical ProviderMD - 03/13/2019 1:53 PM CHEMISTRY SPECIALIST PAT Adult Entered On: 03/13/2019 13:59 EST Performed On: 03/13/2019 13:53 EST by Susie Hernández RN Height and Weight, Clinical Dosing Height Source : Measured Height Entry Format : [place] Height, Feet : 0 ft(Converted to: 0 cm, 0 Inch) Height, Inches : 63 Inch(Converted to: 5 ft 3 Inch, 160.02 cm) Clinical Height : 160.02 cm Weight Source : Standing scale Weight Entry Format : [place] Clinical Dosing Weight : 85.95 kg Weight, Pounds : 189.1 lb Body Surface Area (BSA) : 1.89 m2 Body Mass Index : 33.6 kg/m2 (HI) [place] Body Weight : 52 kg Susie Hernández RN - 03/14/2019 11:07 EST Health Histories Smoking Status : Former smoker, quit more than 30 days ago Smokeless Tobacco Status : Never Implant/Device Type, Repairer Controller Tester and Model : neck fusion and lumbar [...] Susie Hernández RN - 03/13/2019 13:53 EST [place] Suicide Severity Rating Scale (C-SSRS) CSSRS Past [...] Support Person/Pt Rep Name : Christine rodasgila [phone] Want Family/Rep/Phys Notified of Admit : No Emergency Contact #1 : see above Emergency Contact #1 Phone Number : . Emergency Contact #1 Relationship : . Emergency Contact #2 : . Emergency Contact #2 Phone Number : .. Emergency Contact #2 Relationship : . Information Obtained From : Patient Primary Language : Persian Preferred Communication Mode : Verbal Communication Barrier [...]
--- OUTSIDE RECORDS SUMMARY | 2024-11-14 12:33 | XMS_ITS | Encounter Summary ---
Author Organization [facility] Address [address] [id number] Care Team Providers Care Sports Trainer Name Role Phone Mustapha James MD Primary Care Provider [phone] Miguel Lamb MD Unavailable [phone] Encounter Details Date Type Department Care Team (Late st Contact Info) Description 11/02/2024 Telephone Person [facility] V[facility] [address] [phone] [place] [address] Social History Tobacco Use Types Packs/Day Years [...] PM EDT Appointment Cardiac Imaging [address] [place] [address] 01/04/2025 3:30 PM EDT Office Visit [facility] Vascular [facility] [address] [facility] [place] [phone] Miguel Lamb MD [address] [place] [address] documented as of this encounter [...] documented as of this encounter Care Teams Sports Trainer Relationship Specialty Start Date End Date Mustapha James MD [address] [place] [address] PCP - General 09/05/20 Miguel Lamb MD [address] [place] [address] Referring Physician Interventional Cardiology 08/16/24 documented as of this encounter
--- OUTSIDE RECORDS SUMMARY | 2024-11-14 12:33 | XMS_ITS | Encounter Summary ---
Author Organization [employer] ([place], [place], [place], [place]) Address [address] [place] [address] Care Team Providers Care Top And Seat Cover Fitter Name Role Phone Unavailable Primary Care Provider Unavailabl e Encounter Details Date Type Department Care Team (Late st Contact Info) Description 03/14/2019 Transcribed Document [facility] [place] [facility] [place] [address] ProviderRegina [place] [address] Social History Tobacco Use Types [...] - Regina ProviderMD - 03/14/2019 12:37 PM ASSOCIATE SCIENTIST [facility] Main OR IntraOp Summary Primary Physician: TONY PEÑA MD-SUR Finalized Date/Time: 03/15/19 11:29:27 Pt. Name: JODI GTZ SRIRAM Reynolds/Sex: 1955 Female Med Rec #: [id number] Physician: TONY PEÑA MD-SUR Financial #: [id number] Pt. Type: O Room/Bed: Admit/Disch: 03/14/19 09:48:00 - 03/14/19 17:30:00 Institution: [facility] IntraOp Case Attendance Entry 1 Entry 2 Entry 3 Case Attendee TONY PEÑA MD-SUR CALDWELL, JOSEPH A, CRNA BOWEN, JON B, MD-ANS Role Performed Surgeon/Proceduralist, LIVESTOCK SLAUGHTERER/Nurse Event Staff Member Anesthesiologist First Time In 03/14/19 12:18:00 03/14/19 [...] KIERSTEN KHALIL, Gia Liu, Coco Hagan, Cardiovascular Granulizing Machine Operator Role Performed Kiln Worker, First Kiln Worker, Second Granulizing Machine Operator Time In 03/14/19 12:18:00 03/14/19 12:18:00 03/14/19 12:18:00 Time Out 03/14/19 14:07:00 03/14/19 14:07:00 03/14/19 14:07:00 Procedure Aortogram Abdominal Aortogram Abdominal Aortogram Abdominal with Runoff(Left) with Runoff(Left) with Runoff(Left) Other Attendee Superficial Wound Closed By: Last Modified By: Gia Armendariz RN Duncan, Richelle, Gia Liu RN 03/14/19 14:07:56 03/14/19 14:07:56 03/14/19 14:07:56 Entry 7 Case Attendee Mayra Castrejon [employer] Role Performed Granulizing Machine Operator Time In 03/14/19 12:18:00 Time Out 03/14/19 14:07:00 Procedure Aortogram Abdominal with Runoff(Left) Other Attendee Superficial Wound Closed By: Last Modified By: Gia Armendariz RN 03/14/19 14:07:56 [facility] IntraOp Case Attendance Audit 03/14/19 14:07:56 Paraprofessional Aide: [id number] Modifier: [id number] 1 <+> Time Out 1 <*> Procedure [...] Procedure Aortogram Abdominal with Runoff(Left) 03/14/19 13:11:30 Paraprofessional Aide: [id number] Modifier: [id number] 1 <*> Procedure Aortogram Abdominal with Runoff(Left) 2 <*> Procedure Aortogram Abdominal with Runoff(Left) 3 <*> Procedure Aortogram Abdominal with Runoff(Left) 4 <*> Procedure Aortogram Abdominal with Runoff(Left) 5 <*> Procedure Aortogram Abdominal with Runoff(Left) 6 <+> Time In 6 <*> Procedure Aortogram Abdominal with Runoff(Left) 7 <+> Time In 7 <*> Procedure Aortogram Abdominal with Runoff(Left) 03/14/19 12:47:49 Paraprofessional Aide: [id number] Modifier: [id number] <+> 6 Case Attendee <+> 6 Role Performed <+> 6 Procedure <+> 7 Case Attendee <+> 7 Role Performed <+> 7 Procedure 03/14/19 12:46:19 Paraprofessional Aide: [id number] Modifier: [id number] <+> 1 Procedure 2 <*> Procedure Aortogram Abdominal with Runoff(Left) 3 <+> Time In 3 <*> Procedure Aortogram Abdominal with Runoff(Left) 4 <+> Time In 4 <*> Procedure Aortogram Abdominal with Runoff(Left) 5 <+> Time In 5 <*> Procedure Aortogram Abdominal with Runoff(Left) 03/14/19 12:45:34 Paraprofessional Aide: [id number] Modifier: [id number] 2 <+> Time In 2 <*> Procedure Aortogram Abdominal with Runoff(Left) <+> 3 Case Attendee <+> 3 Role Performed <+> 3 Procedure <+> 4 Case Attendee <+> 4 Role Performed <+> 4 Procedure <+> 5 Case Attendee <+> 5 Role Performed <+> 5 Procedure [facility] IntraOp Case Times Entry 1 Patient In Room Time 03/14/19 12:18:00 Out Room Time 03/14/19 14:07:00 Anesthesia Start Time 03/14/19 12:18:00 Stop Time 03/14/19 14:07:00 Anesthesia Ready 03/14/19 12:18:00 Surgery / Procedure Times Start Time 03/14/19 12:37:00 Stop Time 03/14/19 14:01:00 Last Modified By: Gia Armendariz RN 03/14/19 12:39:43 [facility] IntraOp Case Times Audit 03/14/19 14:07:55 Paraprofessional Aide: [id number] Modifier: [id number] <+> 1 Out Room Time <+> 1 Stop Time <+> 1 Stop Time [facility] IntraOp Communication Entry 1 Entry 2 Communication To Family/Significant other Family/Significant other Comment START UPDATE Communication By Gia Armendariz RN Duncan, Richelle, RN Date and Time 03/14/19 12:45:00 03/14/19 13:49:00 Last Modified By: Gia Armendariz RN Duncan, Richelle, RN 03/14/19 12:48:01 03/14/19 13:50:06 [facility] IntraOp Communication Audit 03/14/19 13:50:06 Paraprofessional Aide: [id number] Modifier: [id number] <+> 2 Communication By <+> 2 Date and Time <+> 2 Communication To <+> 2 Comment [facility] IntraOp Departure from OR Entry 1 Integumentary Assessment Integumentary WDL Assessment WDL Transfer/Handoff Transfer to Other Handoff Method Phone call Post-op Transport [facility] Via Patient Transport JACKIE BLANTON MD-ANS, Accompanied by EVERETT FREED CRNA, RESULTAY, JOSEFINA, RN Transfer/Handoff PT TRANSPORTED TO [facility], PT STABLE Last Modified By: Gia Armendariz RN 03/14/19 12:48:40 [facility] IntraOp Dressing and Packing Entry 1 Type Dressing Location OPSITE Wound Dressing Item 4x4's Applied By TONY PEÑA MD-JESUS Other Comments COVADERM Last Modified By: Gia Armendariz RN 03/14/19 12:48:56 [facility] IntraOp Fire Risk Assessment Entry [...] Modified By: Gia Armendariz RN 03/14/19 12:49:12 [facility] IntraOp General Case .Net Architect 1 Case Information OR OR 20 [facility] Case Level 1 Room Verified Yes Wound Class I - Clean Specialty SN General Anesthesia Type MAC ASA Class 3 Diagnosis Preop Diagnosis BILATERAL CLAUDICATION Postop Same As Preop Yes Postop Diagnosis BILATERAL CLAUDICATION Last Modified By: Gia Armendariz RN 03/14/19 13:06:23 [facility] IntraOp General Case Data Audit 03/14/19 13:07:04 Paraprofessional Aide: [id number] Modifier: [id number] 1 <*> Preop Diagnosis RIGHT ILIAC ARTERY OCCLUSION 1 <*> Postop Diagnosis RIGHT ILIAC ARTERY OCCLUSION 03/14/19 13:06:23 Paraprofessional Aide: [id number] Modifier: [id number] <+> 1 ASA Class <+> 1 Anesthesia Type <+> 1 Postop Same As Preop <+> 1 Preop Diagnosis <+> 1 Postop Diagnosis <+> 1 Room Verified [facility] IntraOp Implant Log Entry 1 Entry 2 Type Implant (Synthetic) Implant (Synthetic) Implant Log Implant Type Other Tissue Implant Type Implant DEVICE MYNX HAT LINING BLOCKER 6F/ 7F STENT VASC LS 5F 135cm Identification [id number] Description Implant Quantity 1 1 Implant Site LEFT GROIN LEFT SFA Implant Identification Model Number Implant Identification Serial Number Implant [id number] Identification Lot Number Implant Access Closure Cr Bard:Peripheral Vasc Identification Electric Meter Installer Helper Name: Implant [id number] Identification Catalog Number Implant Size Implant Has an Yes Yes Expiration Date Implant Expiration 01/22/21 08/18/20 Date Wasted Radioactive Material Time Implanted Tissue Implant Continue for Tissue Implant Documentation Tissue Identification Number Graft Prep Per Electric Meter Installer Helper Instructions: Tissue Preparation Method: Reconstitution Solution: Reconstitution Solution Lot Number Reconstitution Solution Expiration Date: Thawing Solution Thawing Solution Lot Number Thawing Solution Expiration Date Preparation Materials, Other Preparation Materials, Other Lot Number Preparation Materials, Other Expiration Date Tissue Prepared/Processed By Electric Meter Installer Helper Paperwork Completed Implant Type Comment Last Modified By: Gia Armendariz RN Duncan, Richelle, RN 03/14/19 13:46:31 03/14/19 13:48:58 [facility] IntraOp Implant Log Audit 03/14/19 13:48:58 Paraprofessional Aide: [id number] Modifier: [id number] <+> 2 Implant Identification Description <+> 2 Implant Identification Lot Number <+> 2 Implant Identification Electric Meter Installer Helper Name: <+> 2 Implant Expiration Date <+> 2 Implant Site <+> 2 Implant Quantity <+> 2 Implant Identification Catalog Number <+> 2 Implant Has an Expiration Date <+> 2 Type [facility] IntraOp Intraoperative Assessment Entry 1 [...] Modified By: Gia Armendariz RN 03/14/19 13:07:39 [facility] IntraOp Intraoperative Equipment Entry 1 Equipment Intraop Monitoring Electrocardiogram Three lead placement (ECG) Electrode Placement Blood Pressure Non-Invasive BP Device Source Blood Pressure Arm, right upper Location Pulse Oximeter Hand, left Probe Site Antiembolic Devices Scopes Photo/Video Documentation Last Modified By: Gia Armendariz RN 03/14/19 13:08:03 [facility] IntraOp Medication Admin Entry 1 [...] Duncan, Richelle, RN 03/14/19 13:10:57 03/14/19 13:10:57 [facility] IntraOp Medication Admin Audit 03/14/19 13:58:22 Paraprofessional Aide: [id number] Modifier: [id number] 1 <*> Dose 50 [facility] IntraOp Patient Positioning Entry 1 [...] Modified By: Gia Armendariz RN 03/14/19 13:11:17 [facility] IntraOp Sign In Entry 1 [...] Modified By: Gia Armendariz RN 03/14/19 13:11:29 [facility] IntraOp Sign Out Entry 1 [...] Modified By: Gia Armendariz RN 03/14/19 13:11:49 [facility] IntraOp Sign Out Audit 03/14/19 14:01:07 Paraprofessional Aide: [id number] Modifier: [id number] <+> 1 Sign Out Comment <+> 1 RN Sign Out Signature Date/Time [facility] IntraOp Skin Prep Entry 1 Procedure Aortogram Abdominal with Runoff(Left) Prescribed N/A Pre-Surgical Prep Completed Prep Area LEFT ARM AND HAND TO AXILLA, BILATERAL GROINS, LEFT FOOT Intraop Prep Integumentary WDL Assessment WDL Prep Agents Chloraprep Prep by Gia Armendariz RN Hair Removal Methods No hair removal performed Last Modified By: Gia Armendariz RN 03/14/19 13:12:51 [facility] IntraOp Skin Prep Audit 03/14/19 13:29:16 Paraprofessional Aide: [id number] Modifier: [id number] 1 <*> Prep Area LEFT ARM AND HAND TO AXILLA, BILATERAL GROINS 1 <*> Procedure Aortogram Abdominal with Runoff(Left) [facility] IntraOp Surgical Procedures Entry 1 Procedure Aortogram [...] LEFT SUPERFICIAL FEMORAL ARTERY ANGIOPLASTY AND STENTING [facility] Intra Surgical Procedures Audit 03/14/19 14:07:58 Paraprofessional Aide: [id number] Modifier: [id number] 1 <*> Stop 03/14/19 13:37:02 Paraprofessional Aide: [id number] Modifier: [id number] 1 <*> Procedure Aortogram Abdominal with Runoff [...] L ACCESS W/ ULTRASOUND ACCESS 03/14/19 13:28:04 Paraprofessional Aide: [id number] Modifier: [id number] 1 <*> Procedure Aortogram Abdominal with Runoff 1 <*> Additional Procedure Description LEFT RADIAL ACCESS UNDER ULTRASOUND GUIDANCE WITH LEFT UPPER EXTREMITY ANGIOGRAM, CATHETER PLACEMENT WITHIN AORTA; LEFT ACCESS UNDER ULTRASOUND GUIDANCE WITH [facility] IntraOP Time Out Entry 1 [...] Modified By: Gia Armendariz, RN 03/14/19 13:16:01 [facility] IntraOp X-Ray and Images Entry 1 X-Ray/Imaging Type Fluoroscopy Fluoroscopy Type Fixed Site OPSITE Bartenders Name Coco Pfeiffer, Cardiovascular Granulizing Machine Operator Protective Devices Yes Used Exposure Time 6.6 MIN Last Modified By: Gia Armendariz RN 03/14/19 13:54:17 [facility] IntraOp X-Ray and Images Audit 03/14/19 13:54:17 Paraprofessional Aide: [id number] Modifier: [id number] <+> 1 Exposure Time Case Comments <None> [...]
--- OUTSIDE RECORDS SUMMARY | 2024-11-14 12:33 | XMS_ITS | Encounter Summary ---
Author Organization [employer] ([place], [place], [place], [place]) Address [address] [place] [address] Care Team Providers Care Water Commissioner Name Role Phone Unavailable Primary Care Provider Unavailabl e Encounter Details Date Type Department Care Team (Late st Contact Info) Description 03/14/2019 Transcribed Document [facility] Radiology [address] [place] [address] Martinez Miller MD [address] [facility] [place] [address] Social History Tobacco Use Types Packs/Day Years [...] skin and nails, Oral, Daily, 0 Refill(s) [place] 7.5 mg-325 mg oral tablet: 1 Tab, [...] Medication hair, skin and nails, Oral, Daily [place] 7.5 mg-325 mg oral tablet 1 Tab, [...] Problems Cervical spinal stenosis / SNOMED CT 782971246 / Confirmed Smoker / SNOMED CT 095023728 / Confirmed Sinusitis / SNOMED CT 19042149 / Confirmed Seasonal allergies / SNOMED CT 108480663 / Confirmed Restless leg / SNOMED CT 71579144 / Confirmed Colon polyps / SNOMED CT 984481207 / Confirmed Pneumonia / SNOMED CT 622198544 / Confirmed Peripheral vascular disease / SNOMED CT 3896778027 / Confirmed Peptic ulcer / SNOMED CT 06958074 / Confirmed Osteoporosis / SNOMED CT 451145677 / Confirmed Neuropathy, R arm / SNOMED CT 7340489536 / Confirmed Migraines / SNOMED CT 81722970 / Confirmed Skin cancer / SNOMED CT 7503594154 / Confirmed Hypertension / SNOMED CT 0872577511 / Confirmed Hyperlipidemia / SNOMED CT 07073992 / Confirmed Elevated cholesterol / SNOMED CT 20913262 / Confirmed Hiatal hernia / SNOMED CT 076677153 / Confirmed Hemorrhoids / SNOMED CT 180255227 / Confirmed H/O: TIA / SNOMED CT 040809458 / Confirmed GERD (gastroesophageal reflux disease) / SNOMED CT 309902176 / Confirmed Gastritis / SNOMED CT 9109979 / Confirmed Fibromyalgia / SNOMED CT 74142715 / Confirmed Fibroids / SNOMED CT 443929930 / Confirmed Endometriosis / SNOMED CT 1365879125 / Confirmed Diverticulitis / SNOMED CT 283361730 / Confirmed Sinus problem / SNOMED CT 6783876132 / Confirmed Known medical problems / SNOMED CT 291420417 / Confirmed white spots on MRI Known medical problems / SNOMED CT 309990475 / Confirmed anti nuclear A and A antibodies Constipation / SNOMED CT 14212915 / Confirmed COPD (chronic obstructive pulmonary disease) / SNOMED CT 96457142 / Confirmed Chronic cough / SNOMED CT 731411611 / Confirmed Chronic constipation / SNOMED CT 084110987 / Confirmed Stroke, possible / SNOMED CT 426862250 / Confirmed Bursitis / SNOMED CT 739097745 / Confirmed Bronchitis / SNOMED CT 28161117 / Confirmed Back pain / SNOMED CT 733954492 / Confirmed At risk for sleep apnea / IMO 31054513 / Confirmed Arthritis / SNOMED CT 2809401 / Confirmed Anemia / SNOMED CT 550257863 / Confirmed Allergic rhinitis / SNOMED CT 191353065 / Confirmed, Active Problems (40) Allergic rhinitis [...] EST Height Source Measured Height Entry Format [place] Height/Length, OCCITAN (ft) 0 ft Height/Length OCCITAN 63 Inch CLINICALHEIGHT 160.02 cm Tensed Body Weight 52 kg Weight Source Standing scale Weight Entry Format [place] Weight [place] lb 189.1 lb CLINICALWEIGHT 85.95 kg Body [...] LLE weakness, uses cane. Integumentary: Warm, Dry, [place]. Neurologic: Alert, Oriented. Psychiatric: Cooperative, Appropriate mood [...]
--- OUTSIDE RECORDS SUMMARY | 2024-11-14 12:33 | XMS_ITS | Encounter Summary ---
Author Organization [employer] ([place], [place], [place], [place]) Address [address] [place] [address] Care Team Providers Care Bank Examiner Name Role Phone Unavailable Primary Care Provider Unavailabl e Encounter Details Date Type Department Care Team (Late st Contact Info) Description 02/12/2019 Transcribed Document [facility] [place] [facility] [place] [address] ProviderRegina MD [address] [place] [address] Social History Tobacco Use Types Packs/Day [...] Henley MD - 02/12/2019 5:18 PM CDT [facility] [place] [address] THOMAS GTZ SRIRAM :1955 Visit Time:02/12/2019 Your Visit Summary Your Care Team Admitting Physician - TONY PEÑA MD-SUR Attending Physician - TONY PEÑA MD-SUR Primary Care Physician - JACKIE BABIN MD-FAM Referring Physician - JACKIE BABIN MD-FAM PHY, NOT LISTED Your Diagnosis Atherosclerosis of elim ira arteries of extremities with intermittent claudication, unspecified extremity, Atherosclerosis of elim ira arteries of extremities with intermittent claudication, unspecified [...] Appointment has been made with [facility]. Where: [address] [place], [place] [phone]- [phone] Medications What How Much When Instructions Next Dose acetaminophen-hydrocodone ([place] 7.5 mg-325 mg oral tablet) 1 Tablet(s) [...] Document Reviewed: 05/14/2011 ExitCare?? Patient Information ??2013 [employer]. Angiogram, Care After This sheet gives you [...] and water are not available, use hand labor and delivery registered nurse. ? Change your dressing as told by [...] contrast dye from your body. ??? Take fkfv-cak-nwwrecr and prescription medicines only as told by [...] 10/28/2005 Document Revised: 03/16/2017 Document Reviewed: 03/16/2017 [employer] Interactive Patient Education ?? 2019 [employer]. Moderate Conscious Sedation, Adult, Care After These [...] you are awake and alert. ??? Take vzzo-sfb-puleymy and prescription medicines only as told by [...] 01/30/2014 Document Revised: 09/13/2016 Document Reviewed: 07/31/2016 [employer] Interactive Patient Education ?? 2019 [employer]. Emergency Awareness and Preventative Care STROKE is [...] Assistance with quitting is available by contacting 7-796-TXBS-NOW. This is a free resource providing counseling, [...] was given the opportunity to ask questions. Patient/Marketing Project Specialist Name: Patient/Marketing Project Specialist Signature: Relationship to Patient: Clinician/Hospital Marketing Project Specialist Signature: Date: Electronically signed by Mickey, [facility] Conversion Almond Paste Molder Andrew at 08/13/2022 11:16 AM CDT documented in this encounter Plan of Treatment Not on file documented as of this encounter Visit Diagnoses Not on filedocumented in this encounter
--- OUTSIDE RECORDS SUMMARY | 2024-11-14 12:33 | XMS_ITS | Encounter Summary ---
Author Organization [employer] ([place], [place], [place], [place]) Address [address] [place] [address] Care Team Providers Care Fabricator Special Items Name Role Phone Unavailable Primary Care Provider Unavailabl e Encounter Details Date Type Department Care Team (Late st Contact Info) Description 02/12/2019 Transcribed Document [facility] [place] [facility] [place] [address] ProviderRegina MD [address] [place] [address] Social History Tobacco Use Types Packs/Day [...] 5:22 PM CDT [facility] [place] [address] THOMAS GTZ SRIRAM :1955 Visit Time:02/12/2019 Your Visit Summary Your Care Team Admitting Physician - TONY PEÑA MD-SUR Attending Physician - TONY PEÑA MD-SUR Primary Care Physician - JACKIE BABIN MD-FAM Referring Physician - JACKIE BABIN MD-FAM PHY, NOT LISTED Your Diagnosis Atherosclerosis of [place] arteries of extremities with intermittent claudication, unspecified extremity, Atherosclerosis of [place] arteries of extremities with intermittent claudication, unspecified [...] Appointment has been made with [facility]. Where: [address] [place], [place] [phone]- [phone] Medications What How Much When Instructions Next Dose acetaminophen-hydrocodone ([place] 7.5 mg-325 mg oral tablet) 1 Tablet(s) [...] Document Reviewed: 05/14/2011 ExitCare?? Patient Information ??2013 [employer]. Angiogram, Care After This sheet gives you [...] and water are not available, use hand wind turbine mechanical engineer. ? Change your dressing as told by [...] contrast dye from your body. ??? Take wtnm-kgy-hmqpiny and prescription medicines only as told by [...] 10/28/2005 Document Revised: 03/16/2017 Document Reviewed: 03/16/2017 [employer] Interactive Patient Education ?? 2019 [employer]. Moderate Conscious Sedation, Adult, Care After These [...] you are awake and alert. ??? Take holn-vgo-elovovx and prescription medicines only as told by [...] 01/30/2014 Document Revised: 09/13/2016 Document Reviewed: 07/31/2016 [employer] Interactive Patient Education ?? 2019 [employer]. clopidogrel (kloe PID oh grel) Plavix What [...] may report side effects to FDA at [phone]-HFB-[phone]. What other drugs will affect clopidogrel? Certain other medicines may increase your risk of bleeding, including aspirin. Avoid taking aspirin unless your doctor tells you to. Tell your doctor about all your other medicines, especially: ?? any other medicines to treat or prevent blood clots; ?? a stomach acid butting saw operator such as omeprazole, Nexium, or Prilosec; ?? an antidepressant; ?? an opioid medication; ?? a blood thinner--warfarin, Coumadin, Jantoven; or ?? NSAIDs (nonsteroidal anti-inflammatory drugs)--ibuprofen (Advil, Motrin), naproxen (Aleve), celecoxib, diclofenac, indomethacin, meloxicam, and others. This list is not complete. Other drugs may affect clopidogrel, including prescription and bkql-zld-bdzpmau medicines, vitamins, and herbal products. Not all [...] to ensure that the information provided by [employer]. ('[employer]') is accurate, up-to-date, and complete, but no guarantee is made to that effect. Drug information contained herein may be time sensitive. [employer] information has been compiled for use by healthcare practitioners and consumers in the [place] and therefore [employer] does not warrant that uses outside of the [place] are appropriate, unless specifically indicated otherwise. [employer]'s drug information does not endorse drugs, diagnose patients or recommend therapy. [employer] drug information is an informational resource designed [...] with your doctor, nurse or pharmacist. Copyright 7197-0145 [employer]. Version: 15.. Revision Date: 02/13/2018. Emergency Awareness [...] Assistance with quitting is available by contacting 4-480-SKIF-NOW. This is a free resource providing counseling, [...] was given the opportunity to ask questions. Patient/Field Laborer Name: Patient/Field Laborer Signature: Relationship to Patient: Clinician/Hospital Field Laborer Signature: Date: Electronically signed by [facility], [facility] Conversion In Flight Crew Member Andrew at 08/13/2022 11:17 AM CDT documented in this encounter Plan of Treatment Not on file documented as of this encounter Visit Diagnoses Not on filedocumented in this encounter
--- OUTSIDE RECORDS SUMMARY | 2024-11-14 12:33 | XMS_ITS | Clinical Summary ---
Author Organization [facility] Address [address] [place] [address] Care Team Providers Care Classification Clerk Name Role Phone Mustapha James MD Primary Care Provider [phone] Miguel Lamb MD Unavailable [phone] Allergies Active Allergy Reactions Criticality Noted [...] by mouth daily. 0 Active HYDROcodone-joanne taminophen ([place]) 7.5-325 MG tablet Take 1 tablet by [...] Type Department Care Team Description 11/02/2024 Telephone [facility] [address] [place] [address] Ariana Li 11/02/2024 Telephone [facility] [address] [address] Ariana Li 09/18/2024 8:30 AM EDT - 09/18/2024 10:30 AM EDT Surgery Card[facility] [address] [place] [phone] Miguel Lamb MD Percutaneous coronary intervention [79263 (CPT )] 09/18/2024 7:17 AM EDT - 09/18/2024 3:19 PM EDT Hospital Encounter [facility] [address] [place] [address] Miguel Lamb MD S/P coronary artery stent placement Discharge Disposition: Home or Self Care 08/30/2024 2:20 PM EDT - 08/30/2024 4:20 PM EDT Surgery Cardiac [facility] [address] [place] [phone] Miguel Lamb MD Percutaneous coronary intervention [07844 (CPT )] 08/30/2024 1:09 PM EDT - 08/31/2024 1:48 PM EDT Hospital Encounter [facility] [address] [place] [phone] Miguel Lamb MD S/P coronary artery stent placement (Primary Dx); Nonrheumatic aortic valve stenosis Discharge Disposition: Home or Self Care 08/30/2024 Travel 08/27/2024 Refill [facility] [address] [address] Renee Bravo RN 08/15/2024 10:[address] [facility] Cardiothoracic [address], [address] [place] [address] Carrington Denny MD Peripheral vascular disease ([facility]) (Primary Dx); Nonrheumatic aortic valve stenosis; Coronary artery disease involving [place] coronary artery of [place] heart with angina pectoris ([facility]); Tobacco abuse; Type 2 diabetes mellitus without complication, unspecified whether mcfp insulin use 08/15/2024 8:43 AM EDT - 08/15/2024 11:59 PM EDT Hospital Encounter [facility] Radiology [address] [place] [address] Nonrheumatic aortic valve stenosis Discharge Disposition: Home or Self Care 08/15/2024 Travel from Last 3 Months Immunizations Immunization [...] EDT Appointment Cardiac Imaging [address] [place] [phone] 01/04/2025 3:30 PM EDT Office Visit [facility] [address] [place] [phone] Miguel Lamb MD [address] [place] [phone] Health Maintenance Due Date Last Done Comments [facility]-Bone Density Scan 1953 [facility]-Hepatitis C Screening 1953 [facility]-/Child/Adol SDOH Screenings 1953 Diabetes: Dental Exam 1963 [facility]- SDOH Screenings 1971 [facility]-Adult SDOH Screenings 1971 CT Colonography 1998 Colonoscopy 1998 FIT-DNA 1998 FIT 1998 FOBT 1998 Sigmoidoscopy 1998 [facility]-Colorectal Cancer Screening 1998 [facility]-Breast Cancer Screening 2003 [facility]-Zoster Vaccines (1 of 2) 2003 [facility]-Diabetes: Hemoglobin A1C 12/01/202212/2022, 07/07/2019, 07/04/2019 [id number] Vaccine ( season) 2023 02/24/2022, 04/01/2021, 08/06/2020, [...] this topic Medical Devices Implanted Type Area Solar Design Engineer Device Identifier Shelf Expiration Date Model / Serial / Lot Stent Bracey Manjit Rx 4.5mm X 12mm - [id number] Implanted:Qty: 1 on 08/30/2024 by Miguel Lamb MD at [facility]-[id number] 03/21/2027 [id number] UX / / [id number] Stent Coronary Bracey Manjti Rx 3.00mm X 18mm - [id number] Implanted:Qty: 1 on 08/30/2024 by Miguel Lamb MD at [facility]-[id number] 06/14/2027 [id number] UX / / [id number] Stent Coronary Bracey Manjit Rx 2.75mm X 30mm - [id number] Implanted:Qty: 1 on 09/18/2024 by Miguel Lamb MD at [facility]-[id number] 03/25/2027 [id number] UX / / [id number] Stent Coronary Bracey Wayne Rx 3.00mm X 26mm - [id number] Implanted:Qty: 1 on 09/18/2024 by Miguel Lamb MD at [facility]-[id number] 06/21/2027 [id number] UX / / [id number] Stent Coronary Bracey Wayne Rx 3.50mm X 12mm - [id number] Implanted:Qty: 1 on 09/18/2024 by Miguel Lamb MD at [facility]-[id number] 03/04/2027 [id number] UX / / [id number] Procedures Procedure Name Priority Date/Time Associated Diagnosis [...] of an overlapping 3.5 x 12 mm Bracey Manjit drug-eluting stent. Ostium flared to 4.0. 3. Serial 70% diffuse lesions of the mid-distal RCA s/p successful PCI with placement of overlapping 3.0 x 26 mm and 2.75 x 30 mm Bracey Manjit drug-eluting stents (proximal-distal). Recommendations: 1. Post-PCI [...] After confirming therapeutic activated clotting time, a Casero wire was advanced beyond the lesion and into the distal RCA. We advanced an Emerge RX 2.5 x 20 mm balloon into the mid-dstial RCA lesion and inflated to 12 rachael. The balloon was withdrawn slightly and serial inflations performed using the same technique. We then advanced a 2.75 mm x 30 mm Bracey Wayne drug eluting stent into the lesion and deployed at 12 rachael. We then placed and overlapping 3.0 x 26 mm Bracey Manjit drug-eluting stent proximal to the aforementioend stent, inflated to 12 rachael. Post-dilation of the proximal-mid stent was then carried out using a 3.0 NC balloon. We then closely evaluated the ostium which appeared to have disease and appeared to be uncovered. We then advanced a 3.5 x 12 mm Bracey Manjit drug- eluting stent in the proximal [...] The patient was transferred back to the laborer petroleum refinery holding area in good condition. Coronary Findings [...] 09/26/2024 9:35 AM EDT [facility] Glass Blower ID Mary Marin 09/26/2024 9:35 AM EDT [facility] ACT Device ID [id number] 09/26/2024 9:35 AM EDT [facility]ALTH[facility]ARE [facility] Comment 09/26/2024 9:35 AM EDT [facility] Comment: ACT performed by [...] UNSOLICITED RESULTS Final Result Performing Organization Address City/State/[facility] Co de Phone Number HEALTHCARE LAB [address] LAB [address] [place] [address] * (ABNORMAL) POCT creatinine (09/18/2024 8:24 AM EDT) Only the most recent of2 resultswithin the time period is included. Creatinine, Point of Care 1.2(H) 0.6 - 1.1 mg/dL 09/18/2024 8:28 AM EDT HEALTHCARE LAB POCT eGFR 48 mL/min/1. 73m*2 09/18/2024 8:28 AM EDT [facility] Glass Blower ID Rosangela Gallegos 09/18/2024 8:28 AM EDT [facility] Device ID [id number] 09/18/2024 8:28 AM EDT [facility] Comment 09/18/2024 8:28 AM EDT [facility] Comment:Testing performed on i-STAT at the point of care. Reported eGFRcr in mL/min/1.73m2 is based the CKD-EPI 2020 equation that does not use a race coefficient. Blood Venous blood specimen / Unknown 09/18/2024 8:24 AM EDT 09/18/2024 8:28 AM EDT us Miguel Lamb MD LAB POINT OF CARE TE ST DOCKED DEVICE UNSOLICITED RESULTS Final Result [facility] [address] LAB [address] [place] [address] * (ABNORMAL) CBC and differential (09/18/2024 8:20 AM EDT) WBC Count 8.79 3.70 - 10.30 10*3/uL LAB HEMATOLOGY METHOD 09/18/2024 8:38 AM EDT [facility] RBC Count 2.65(L) 3.90 - 5.20 10*6/uL LAB HEMATOLOGY METHOD 09/18/2024 8:38 AM EDT [facility] HGB 7.2(L) 11.2 - 15.7 g/dL LAB HEMATOLOGY METHOD 09/18/2024 8:38 AM EDT [facility] HCT 24.6(L) 34.0 - 45.0 % LAB HEMATOLOGY METHOD 09/18/2024 8:38 AM EDT [facility] Platelet Count 358 155 - 369 10*3/uL LAB HEMATOLOGY METHOD 09/18/2024 8:38 AM EDT [facility] MCV 93 79 - 98 fL LAB HEMATOLOGY METHOD 09/18/2024 8:38 AM EDT [facility] MCH 27.2 26.0 - 32.0 pg LAB HEMATOLOGY METHOD 09/18/2024 8:38 AM EDT [facility] MCHC 29.3(L) 30.7 - 35.5 g/dL LAB HEMATOLOGY METHOD 09/18/2024 8:38 AM EDT [facility] RDW 16.0(H) 11.5 - 14.5 % LAB HEMATOLOGY METHOD 09/18/2024 8:38 AM EDT [facility] MPV 10.4 8.8 - 12.5 fL LAB HEMATOLOGY METHOD 09/18/2024 8:38 AM EDT [facility] nRBC 0.0 <=0.0 per 100 WBCs LAB HEMATOLOGY METHOD 09/18/2024 8:38 AM EDT [facility] Differential Type Automated LAB HEMATOLOGY METHOD 09/18/2024 8:38 AM EDT [facility] Neutrophils % 90 % LAB HEMATOLOGY METHOD 09/18/2024 8:38 AM EDT [facility] Lymphocytes % 6 % LAB HEMATOLOGY METHOD 09/18/2024 8:38 AM EDT [facility] Monocytes % 2 % LAB HEMATOLOGY METHOD 09/18/2024 8:38 AM EDT [facility] Eosinophils % 1 % LAB HEMATOLOGY METHOD 09/18/2024 8:38 AM EDT [facility] Basophils % 0 % LAB HEMATOLOGY METHOD 09/18/2024 8:38 AM EDT [facility] Immature Granulocytes % 1 % LAB HEMATOLOGY METHOD 09/18/2024 8:38 AM EDT [facility] Neutrophils Absolute 7.96(H) 1.60 - 6.10 10*3/uL LAB HEMATOLOGY METHOD 09/18/2024 8:38 AM EDT [facility] Lymphocytes Absolute 0.56(L) 1.20 - 3.90 10*3/uL LAB HEMATOLOGY METHOD 09/18/2024 8:38 AM EDT [facility] Monocytes Absolute 0.13(L) 0.30 - 0.90 10*3/uL LAB HEMATOLOGY METHOD 09/18/2024 8:38 AM EDT [facility] Eosinophils Absolute 0.07 0.00 - 0.50 10*3/uL LAB HEMATOLOGY METHOD 09/18/2024 8:38 AM EDT [facility] Basophils Absolute 0.02 0.00 - 0.10 10*3/uL LAB HEMATOLOGY METHOD 09/18/2024 8:38 AM EDT [facility] Immature Granulocytes Absolute 0.05 0.00 - 0.06 10*3/uL LAB HEMATOLOGY METHOD 09/18/2024 8:38 AM EDT [facility] Blood Venous blood specimen / Unknown Venipuncture / Unknown 09/18/2024 8:20 AM EDT 09/18/2024 8:26 AM EDT Narrative [facility] - 09/18/2024 8:38 AM EDT Therapeutic decision making should be based on absolute values, rather than percentages. us Miguel Lamb MD LAB BLOOD ORDERABLES Final Resu lt [facility] [address] [place] [address] * (ABNORMAL) Basic metabolic panel (09/18/2024 8:20 AM EDT) Only the most recent of3 resultswithin the time period is included. Glucose, Plasma 157(H) 74 - 99 mg/dL 09/18/2024 8:58 AM EDT [facility] BUN, Plasma 17 8 - 23 mg/dL 09/18/2024 8:58 AM EDT [facility] Creatinine, Plasma 1.05 0.60 - 1.10 mg/dL 09/18/2024 8:58 AM EDT [facility] BUN/Creatinine Ratio 16 09/18/2024 8:58 AM EDT [facility] Sodium, Plasma 138 136 - 145 mmol/L 09/18/2024 8:58 AM EDT [facility] Potassium, Plasma 4.5 3.6 - 4.9 mmol/L 09/18/2024 8:58 AM EDT [facility] Chloride, Plasma 100 97 - 107 mmol/L 09/18/2024 8:58 AM EDT [facility] CO2, Plasma 23 22 - 29 mmol/L 09/18/2024 8:58 AM EDT [facility] Anion Gap 15 6 - 16 mmol/L 09/18/2024 8:58 AM EDT [facility] Total Calcium, Plasma 9.4 8.9 - 10.2 mg/dL 09/18/2024 8:58 AM EDT [facility] eGFRcr 56.9 mL/min/1.7 3m*2 09/18/2024 8:58 AM EDT [facility] Comment:Reported eGFRcr in m L/min/1.73m2 is based the CKD-EPI 2020 equation that does not use a race coefficient. Blood Venous blood specimen / Unknown Venipuncture / Unknown 09/18/2024 8:20 AM EDT 09/18/2024 8:27 AM EDT us Miguel Lamb MD LAB BLOOD ORDERABLES Final Resu lt Performing Organization Address City/[facility]/ZIP Co de Phone Number [facility] [address] [place] [address] * (ABNORMAL) N-Terminal Probnp, Plasma (08/31/2024 3:59 AM EDT) N-Terminal, PROBNP, Plasma 5,650(H) 0 - 899 pg/mL 08/31/2024 5:38 AM EDT [facility] Blood Venous blood specimen / Unknown Venipuncture / Unknown 08/31/2024 3:59 AM EDT 08/31/2024 4:36 AM EDT us Zuly Gaspar APRN LAB BLOOD ORDERABLES Final R esult Performing Organization Address City/[facility]/ZIP Co de Phone Number [facility] [address] [place] [address] * (ABNORMAL) CBC W/O Differential (08/31/2024 3:59 AM EDT) Only the most recent of2 resultswithin the time period is included. WBC Count 16.14(H) 3.70 - 10.30 10*3/uL LAB HEMATOLOGY METHOD 08/31/2024 4:45 AM EDT [facility] RBC Count 2.68(L) 3.90 - 5.20 10*6/uL LAB HEMATOLOGY METHOD 08/31/2024 4:45 AM EDT [facility] HGB 7.9(L) 11.2 - 15.7 g/dL LAB HEMATOLOGY METHOD 08/31/2024 4:45 AM EDT [facility] HCT 25.6(L) 34.0 - 45.0 % LAB HEMATOLOGY METHOD 08/31/2024 4:45 AM EDT [facility] Platelet Count 277 155 - 369 10*3/uL LAB HEMATOLOGY METHOD 08/31/2024 4:45 AM EDT [facility] MCV 96 79 - 98 fL LAB HEMATOLOGY METHOD 08/31/2024 4:45 AM EDT [facility] MCH 29.5 26.0 - 32.0 pg LAB HEMATOLOGY METHOD 08/31/2024 4:45 AM EDT [facility] MCHC 30.9 30.7 - 35.5 g/dL LAB HEMATOLOGY METHOD 08/31/2024 4:45 AM EDT [facility] RDW 15.0(H) 11.5 - 14.5 % LAB HEMATOLOGY METHOD 08/31/2024 4:45 AM EDT [facility] MPV 10.3 8.8 - 12.5 fL LAB HEMATOLOGY METHOD 08/31/2024 4:45 AM EDT [facility] nRBC 0.0 <=0.0 per 100 WBCs LAB HEMATOLOGY METHOD 08/31/2024 4:45 AM EDT [facility] Blood Venous blood specimen / Unknown Venipuncture / Unknown 08/31/2024 3:59 AM EDT 08/31/2024 4:29 AM EDT Zuly Gaspar APRN LAB BLOOD ORDERABLES Final R esult [facility] [address] [place] [address] * Magnesium, Plasma (08/31/2024 3:59 AM EDT) Magnesium, Plasma 2.2 1.9 - 2.4 mg/dL 08/31/2024 5:38 AM EDT [facility] Blood Venous blood specimen / Unknown Venipuncture / Unknown 08/31/2024 3:59 AM EDT 08/31/2024 4:36 AM EDT Zuly Gaspar APRN LAB BLOOD ORDERABLES Final R esult [facility] [address] [place] [address] * ECG Adult (08/30/2024 6:02 PM EDT) EKG DIAGNOSIS CLASS Abnormal MUSE ECG Ventricular Rate 99 BPM MUSE ECG Atrial Rate 99 BPM MUSE ECG NH Interval 142 ms MUSE ECG QRSD Interval 86 ms MUSE ECG QT Interval 368 ms MUSE ECG QTC Interval 472 ms MUSE ECG P [place] 66 degrees MUSE ECG R [place] 16 degrees MUSE ECG T Wave [place] 59 degrees MUSE ECG Diagnosis Normal sinus [...] placement of a 4.5 x 15 mm Bracey Wayne drug-eluting stent (overlapping with previously placed stent distally and 1-2 mm of stent extending in the aorta) 2. 70% heavily calcified distal left main severe in-stent re-stenosis s/p balloon angioplasty with a 3.5 NC balloon 3. 90% ostial RCA stenosis s/p successful PCI with placement of a 3.0 x 12 mm and 3.0 x 18 mm Bracey Manjit drug-eluting stent. Proximal-mid stent post-dilated to [...] to direct stent. We then advanced a Bracey Wayne 4.5 x 12 mm drug-eluting stent into [...] 12 mm and 3.0 x 18 mm Bracey Wayne drug eluting stents in the proximal RCA [...] The patient was transferred back to the laborer petroleum refinery holding area in good condition. Coronary Findings [...] CARDIAC CATH PROCEDURES Sheyla caban Result * CT Angio Abdomen Pelvis (08/15/2024 [...] Volume: 1359 Aortic Root Measurements 3-Cusp view: PERSIAN 16 degrees; DIVER'S TENDER 7 degrees Annulus area: 4.48 cm Annulus [...] 1574 Volume: 1359 Aortic Root Measurements 3-Cusp view:PERSIAN 16 degrees; DIVER'S TENDER 7 degrees Annulus area: 4.48 cm Annulus [...] Volume: 1359 Aortic Root Measurements 3-Cusp view: PERSIAN 16 degrees; DIVER'S TENDER 7 degrees Annulus area: 4.48 cm Annulus [...] 1574 Volume: 1359 Aortic Root Measurements 3-Cusp view:PERSIAN 16 degrees; DIVER'S TENDER 7 degrees Annulus area: 4.48 cm Annulus [...] <6.0% Children and Adolescents <7.5% . Source: [place] [employer]. Standards of medical care in diabetes, 2017. Diabetes Care.2017:40 (suppl 1):S1-S135. . HbA1c assay performed by an ion-exchange chromatography method that is certified traceable to the DCCT. 07/07/2019 2:34 AM EDT 07/07/2019 2:46 AM EDT Historical Provider LAB BLOOD ORDERABLES Sheyla caban Result SUNQUEST from Last 3 Months or Most Recently Relevant to Health Maintenance Insurance [employer] MEDICARE Advance Directives * Full Code [...] updated to appropriate status: Yes Care Teams Classification Clerk Relationship Specialty Start Date End Date Mustapha James MD [address] [place] [id number] PCP - General 09/05/20 Miguel Lamb MD [address] [place] [phone] Referring Physician Interventional Cardiology 08/16/24
--- OUTSIDE RECORDS SUMMARY | 2024-11-14 12:33 | XMS_ITS | Encounter Summary ---
Author Organization [employer] ([place], [place], [place], [place]) Address [address] [place] [address] Care Team Providers Care Deaf And Hard Of Hearing Teacher Name Role Phone Unavailable Primary Care Provider Unavailabl e Encounter Details Date Type Department Care Team (Late st Contact Info) Description 03/14/2019 Transcribed Document [facility] [address] [place] [address] ProviderRegina MD [facility] [place], [place] [id number] Social History Tobacco Use Types Packs/Day Years Used Date Smoking Tobacco: Never Assessed Comments Unknown Sex and Gender Information Value Date Recorded Sex Assigned at Not on file Legal Sex Female 5:00 PM CDT Gender Identity Not on file Sexual Orientation Not on file documented as of this encounter Miscellaneous Notes * Cerner Conversion Note - Historical ProviderMD - 03/14/2019 4:16 PM VALIDATION ARCHITECT Nursing Discharge Summary Entered On: 03/14/2019 16:19 [...] 03/14/2019 16:16 EST Electronically signed by Mickey [facility] Conversion Senior Java Architect Cerner at 08/13/2022 11:21 AM CDT documented in this encounter Plan of Treatment Not on file documented as of this encounter Visit Diagnoses Not on filedocumented in this encounter
--- OUTSIDE RECORDS SUMMARY | 2024-11-14 12:34 | XMS_ITS | Encounter Summary ---
Author Organization [facility] Address [address] [place] [id number] Care Team Providers Care Assistant Therapy Aide Name Role Phone Mustapha James MD Primary Care Provider + Reason for Visit * Reason Onset Date Comments Advice Only 10/18/2024 Encounter Details Date Type Department Care Team (Late st Contact Info) Description 10/18/2024 Telephone [facility] [address] [place] [address] Mustapha James MD [address] [facility] [place] [address] Advice Only Social History Tobacco Use Types Packs/Day Years Used Date Smoking Tobacco: Some Days Cigarettes 0.5 50 Started: 04/26/1972; Last attempted to quit: 04/26/2022 Smokeless Tobacco: Never Comments:Pt is trying to kaylan t. She usually smokes in response to stressfull [...] ile Not on file Not on file documented as of this encounter Miscellaneous Notes * Telephone Encounter - Iza Arita MA - 10/19/2024 8:33 AM EDT Pt aware and understood. * Telephone Encounter - Mustapha James MD - 10/19/2024 7:49 AM EDT An alternative diuretic (water pill) has been sent to her pharmacy. She should take this water pillonce per day. She also needs to reduce the amount of fluid she is drinking. * Telephone Encounter - Flores Holt MA - 10/18/2024 5:07 PM EDT Pt states that she was at the hospital yesterday for her infusion. A Dr looked at them, told her that she needed to make an appt to see her PCP and they recommend a stronger dose of her water pill. Pt is unable to drive and doesn't have anyone to bring her. * Telephone Encounter - Mustapha James MD - 10/18/2024 4:59 PM EDT She should either make an appointment or go to the emergency room * Telephone Encounter - Brittani Gee RegSched Rep - 10/18/2024 1:06 PM EDT Ms. Byrne called stating that she is still having a lot of swelling in her feet and legs. She is not able to get shoes on her feet now. She has been taking the Laxis but has not seen any improvements. It has now moved up to her abdomen and she stated her abdomen is rock hard . She want see what else Dr. James would recommend for her to do. documented in this encounter Plan of Treatment Upcoming Encounters Date Type Department Care Team (Late st Contact Info) Description 11/26/2024 1:15 PM EDT Appointment [facility] [address] [place] [address] 12/06/2024 2:00 PM EDT Office [facility] [address] [place] [address] Chirag Mckee MD [address] [place] [address] 12/27/2024 2:00 PM EDT Office Visit [facility] [address] [place] [address] Mustapha James MD [address] [place] [address] documented as of this encounter Visit Diagnoses Not on filedocumented in this encounter Additional Health Concerns Assessment Noted Time PHQ-2 Depression Total Score: 1 10/24/19 2:19 PM EDT documented as of this encounter Care Teams Assistant Therapy Aide Relationship Specialty Start Date End Date Mustapha James MD [address] [place] [address] PCP - General Family Medicine 01/02/24 documented as of this encounter
--- OUTSIDE RECORDS SUMMARY | 2024-11-14 12:34 | XMS_ITS | Encounter Summary ---
Author Organization [facility] Address [address] [place] [phone] Care Team Providers Care Consumer Education Specialist Name Role Phone Mustapha James MD Primary Care Provider + Reason for Visit * Reason Comments Med Refill Encounter Details Date Type Department Care Team (Late st Contact Info) Description 11/02/2024 Refill [facility] [address] [facility] [place] [address] Mustapha James MD [address] [facility] [place] [address] Failed back syndrome of lumbar spine; Spondylosis of lumbar region without myelopathy or radiculopathy; Arthritis of lumbar spine Social History Tobacco Use Types Packs/Day Years [...] Info) Description 11/26/2024 1:15 PM EDT Appointment [facility] [address] [place] [address] 12/06/2024 2:00 PM EDT Office Visit [facility] [address] [facility] [place] [place] [address] Chirag Mckee MD [address] [place] [address] 12/27/2024 2:00 PM EDT Office Visit [facility] [address] [place] [address] Mustapha James MD [address] [place] [address] documented as of this encounter Visit Diagnoses Diagnosis 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
--- OUTSIDE RECORDS SUMMARY | 2024-11-14 12:34 | XMS_ITS | Encounter Summary ---
Author Organization [facility] Address [address] [place] [phone] Care Team Providers Care Nuclear Medical Technologist Name Role Phone Mustapha James MD Primary Care Provider + Reason for Visit * Reason Onset Date Comments Fluid Retention 10/11/2024 Encounter Details Date Type Department Care Team (Late st Contact Info) Description 10/11/2024 Telephone [facility] 210 [facility] [place] [address] Mustapha James MD 210 [facility] [place] [address] Fluid Retention Social History Tobacco Use Types Packs/Day Years [...] encounter Miscellaneous Notes * Telephone Encounter - Kim Epps MA - 10/11/2024 5:46 PM EDT Informed pt * Telephone Encounter - Mustapha James MD - 10/11/2024 5:12 PM EDT She should take 2 of her Lasix(furosemide) morning and night for 1 week * Telephone Encounter - Maximo Otoole RegSched Rep - 10/11/2024 4:04 PM EDT Caller: ChavezJodi seaman Relationship: Self Best call back number: [phone] What was the call regarding: PATIENT STATES THAT HER FEET AND LEGS ARE SWELLING. IT'S NOT GETTING UP INTO HER STOMACH. SHE WANTS TO KNOW IF SHE NEEDS TO INCREASE HER LASIX OR WHAT TO DO. SHE CAN'T GET AROUND ON HER OWN. SHE CAN'T EVEN COOK OR ANYTHING. Is it okay if the provider responds through MyChart: NO documented in this encounter Plan of Treatment Upcoming Encounters Date Type Department Care Team (Late st Contact Info) Description 11/26/2024 1:15 PM EDT Appointment [facility] [address] [place] [address] 12/06/2024 2:00 PM EDT [facility] [address] [place] [address] Chirag Mckee MD [address] [place] [address] 12/27/2024 2:00 PM EDT Office Visit [facility] [address] [place] [phone] Mustapha James MD [address] [place] [address] documented as of this encounter Visit Diagnoses Not on filedocumented in this encounter Additional Health Concerns Assessment Noted Time PHQ-2 Depression Total Score: 1 10/24/19 24 2:19 PM EDT documented as of this encounter Care Teams Nuclear Medical Technologist Relationship Specialty Start Date End Date Mustapha James MD [address] [place] [address] PCP - General Family Medicine 01/02/24 documented as of this encounter
--- OUTSIDE RECORDS SUMMARY | 2024-11-14 12:34 | XMS_ITS | Encounter Summary ---
Author Organization [facility] Address [address] [place] [id number] Care Team Providers Care Aids Nurse Name Role Phone Mustapha James MD Primary Care Provider + Reason for Visit * Reason Onset Date Comments Med Refill 10/24/2024 Encounter Details Date Type Department Care Team (Late st Contact Info) Description 10/24/2024 Refill [facility] [address] [place] [address] Mustapha James MD 210 [place] [address] Social History Tobacco Use Types Packs/Day Years [...] Telephone Encounter - Kim Epps MA - 10/24/2024 6:25 PM EDT Informed pt she has enough to last for a month already. She is to call excavator backhoe operator to the end of the Rx. She voiced understanding. * Telephone Encounter - Mary Rader RegSched Rep - 10/24/2024 3:44 PM EDT PATIENT CALLED TO RELAY THAT HER FRONT LOADER RESIDENTIAL DRIVER DR JACOBSONS PCP TO SEND IN REFILLS FOR TORSEMIDE * Telephone Encounter - Leandra Dotson RegSched Rep - 10/24/2024 3:34 PM EDT A user error has taken place: encounter opened in error, closed for administrative reasons. documented in this encounter Plan of Treatment Upcoming Encounters Date Type Department Care Team (Late st Contact Info) Description 11/26/2024 1:15 PM EDT Appointment [facility] [address] [place] [address] 12/06/2024 2:00 PM EDT Office Visit [facility] [address] [place] [address] Chirag Mckee MD [address] [place] [address] 12/27/2024 2:00 PM EDT Office Visit [facility] [address] [place] [phone] Mustapha James MD [address] [place] [address] documented as of this encounter Visit Diagnoses Not on filedocumented in this encounter Additional Health Concerns Assessment Noted Time PHQ-2 Depression Total Score: 1 10/24/19 24 2:19 PM EDT documented as of this encounter Care Teams Aids Nurse Relationship Specialty Start Date End Date Mustapha James MD [address] [place] [address] PCP - General Family Medicine 01/02/24 documented as of this encounter
--- OUTSIDE RECORDS SUMMARY | 2024-11-14 12:34 | XMS_ITS | Encounter Summary ---
Author Organization [facility] Address [address] [place] [id number] Care Team Providers Care Adolescent Medicine Specialist Name Role Phone Mustapha James MD Primary Care Provider + Reason for Visit * Reason Comments Med Refill Encounter Details Date Type Department Care Team (Late st Contact Info) Description 10/31/2024 Refill [facility] 210 [facility] [place] [address] Mustapha James MD 210 [facility] [address] Social History Tobacco Use Types [...] Info) Description 11/26/2024 1:15 PM EDT Appointment [facility] [address] [place] [address] 12/06/2024 2:00 PM EDT Office Visit [facility] [address] [place] [address] Chirag Mckee MD [address] [place] [address] 12/27/2024 2:00 PM EDT Office Visit [facility] [address] [place] [address] Mustapha James MD [address] [place] [address] documented as of this encounter Visit Diagnoses Not on filedocumented in this encounter Additional Health Concerns Assessment Noted Time PHQ-2 Depression Total Score: 1 10/24/19 24 2:19 PM EDT documented as of this encounter Care Teams Adolescent Medicine Specialist Relationship Specialty Start Date End Date Mustapha James MD [address] [place] [address] PCP - General Family Medicine 01/02/24 documented as of this encounter
--- OUTSIDE RECORDS SUMMARY | 2024-11-14 12:34 | XMS_ITS | Encounter Summary ---
Author Organization [facility] Address [address] [place] [phone] Care Team Providers Care Designated Broker Name Role Phone Mustapha Babin MD Primary Care Provider + Reason for Visit * Reason Onset Date Comments Advice Only 09/26/2024 Encounter Details Date Type Department Care Team (Late st Contact Info) Description 09/26/2024 Telephone [facility] [address] [facility] [place] [address] Mustapha Babin MD 210 [facility] [place] [address] Advice Only Social History Tobacco [...] Telephone Encounter - Kim Epps MA - 09/27/2024 5:58 PM EDT Informed pt and gave her Dr. Dick office contact information. * Telephone Encounter - Mustapha Babin MD - 09/26/2024 4:15 PM EDT She will remain fatigued until her iron is replaced and her anemia improves. She should not delay the iron infusion * Telephone Encounter - Susanna Kennedy RegSched Rep - 09/26/2024 3:26 PM EDT Caller: Jodi Byrne Relationship: Self Best call back number: [phone] What was the call regarding: PATIENT IS CONCERNED ABOUT HER CHRONIC FATIGUE. SHE STATES SHE WAS UNABLE TO HAVE THE IRON INFUSION THAT WAS ORDERED FOR HER DUE TO HAVING TO HAVE HEART SURGERY ON 09/18/24. SHE STATES THAT SHE STILL HAS TO HAVE ONE MORE HEART SURGERY TO HAVE A VALVE REPLACEMENT DONE. SHE STATES SHE IS CONSTANTLY TIRED AND FALLING ASLEEP AND IS ALSO TOO WEAK TO EVEN WALK AROUND HER HOUSE. SHE STATES SHE IS SUFFERING FROM CONSTIPATION DUE TO THE IRON PILLS DR. BABIN ORDERED FOR HER AND HAS ONLY TAKEN 1 OF THE PILLS. SHE SAID IT ALSO GAVE HER A RASH. SHE STATES THE IRON PILL WAS THEONLY NEW MEDICATION SHE'D HAD, BUT HAD BEEN GIVEN A PREDNISONE PACK FOR ANOTHER ISSUE, WHICH ALSO CLEARED THE RASH UP. PLEASE CALL BACK TO ADVISE. documented in this encounter Plan of Treatment Upcoming Encounters Date Type Department Care Team (Late st Contact Info) Description 11/26/2024 1:15 PM EDT Appointment [facility] [address] [place] [address] 12/06/2024 2:00 PM EDT Office Visit [facility] [address] [place] [address] Chirag Mckee MD [address] [place] [address] 12/27/2024 2:00 PM EDT Office Visit [facility] [address] [place] [phone] Mustapha Babin MD [address] [place] [address] documented as of this encounter Visit Diagnoses Not on filedocumented in this encounter Additional Health Concerns Assessment Noted Time PHQ-2 Depression Total Score: 1 10/24/19 2:19 PM EDT documented as of this encounter Care Teams Designated Broker Relationship Specialty Start Date End Date Mustapha Babin MD [address] [place] [address] PCP - General Family Medicine 01/02/24 documented as of this encounter
--- OUTSIDE RECORDS SUMMARY | 2024-11-14 12:34 | XMS_ITS | Encounter Summary ---
Author Organization [facility] Address [address] [place] [id number] Care Team Providers Care Community Service Officer Coordinator Name Role Phone Mustapha James MD Primary Care Provider + Reason for Visit * Reason Comments Med Refill Encounter Details Date Type Department Care Team (Late st Contact Info) Description 09/27/2024 Refill [facility] 210 [facility] [place] [address] Mustapha James MD 210 [place] [address] Failed back syndrome of lumbar spine; Spondylosis of lumbar region without myelopathy or radiculopathy; Arthritis of lumbar spine; Generalized anxiety disorder Social History Tobacco Use Types Packs/Day Years [...] Info) Description 11/26/2024 1:15 PM EDT Appointment [facility] [address] [place] [address] 12/06/2024 2:00 PM EDT Office Visit [facility] [address] [place] [address] Chirag Mckee MD [address] [place] [address] 12/27/2024 2:00 PM EDT Office Visit [facility] 210 [place] [address] Mustapha James MD 210 [place] [address] documented as of this encounter Visit Diagnoses Diagnosis 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
--- OUTSIDE RECORDS SUMMARY | 2024-11-14 12:34 | XMS_ITS | Encounter Summary ---
Author Organization [facility] Address [address] [place] [phone] Care Team Providers Care Dish Network Installer Name Role Phone Mustapha James MD Primary Care Provider + Reason for Visit * Reason Onset Date Comments OVERNIGHT STUDY 09/27/2024 Encounter Details Date Type Department Care Team (Late st Contact Info) Description 09/27/2024 Telephone [facility] 210 [facility] [place] [address] Mustapha James MD 210 [place] [address] OVERNIGHT STUDY Social History Tobacco Use Types Packs/Day Years [...] encounter Miscellaneous Notes * Telephone Encounter - Johana Grande RegSched Rep - 09/27/2024 11:37 AM EDT PER LCAUDIA PATIENT DOESN'T WANT TO COMPLETE documented in this encounter Plan of Treatment Upcoming Encounters Date Type Department Care Team (Late st Contact Info) Description 11/26/2024 1:15 PM EDT Appointment [facility] [address] [place] [address] 12/06/2024 2:00 PM EDT Office Visit [facility] [address] [place] [address] Chirag Mckee MD [address] [place] [address] 12/27/2024 2:00 PM EDT Office Visit [facility] 210 [place] [address] Mustapha James MD [address] [place] [address] documented as of this encounter Visit Diagnoses Not on filedocumented in this encounter Additional Health Concerns Assessment Noted Time PHQ-2 Depression Total Score: 1 10/24/19 24 2:19 PM EDT documented as of this encounter Care Teams Dish Network Installer Relationship Specialty Start Date End Date Mustapha James MD [address] [place] [address] PCP - General Family Medicine 01/02/24 documented as of this encounter
[2024-11-14 13:11] LABS: Hematocrit 24.0 % (37.0-47.0); Hemoglobin 7.1 g/dL (12.2-16.2); Immature Granulocytes % 0.4 %; Mean Corpuscular HGB Conc 29.6 g/dL (31.8-35.4); Mean Corpuscular Hemoglobin 29.5 pg (27.0-31.2); Mean Corpuscular Volume 99.6 fl (81-99); Nucleated Red Blood Cells % 0 %; Platelet Count 275 K/mm3 (142-424); Red Blood Count 2.41 M/mm3 (4.20-5.40); Red Cell Distribution Width-SD 71.3 fL; White Blood Count 11.2 K/mm3 (4.8-10.8)
[2024-11-14 13:29] LABS: Reticulocyte % (Auto) 4.8 % (0.9-3.2)
[2024-11-14 13:46] LABS: Iron 33 ug/dL (37-170)
[2024-11-14 13:55] LABS: Total Iron Binding Capacity 440 ug/dL (265-497)
[2024-11-14 14:21] LABS: Ferritin 15.1 ng/ml (11.1-264)
[2024-11-14 14:57] LABS: Folate 6.12 ng/mL
== END 2024-11-14 23:59 | disposition home or self-care (01) ==
PROVIDERS: PCP Family Medicine; Visit Provider Internal Medicine Medical Oncology
DX: D64.9 Anemia, unspecified (principal)
CPT/HCPCS: 36415; 81596; 82728; 82746; 83540; 83550; 83615; 85025; 85044; 86850; 86880

== ENCOUNTER 2024-11-15 08:52 | Outpatient (CLI) | payer MEDICARE, SELFPAY ==
--- OUTSIDE RECORDS SUMMARY | 2024-09-18 07:17 | XMS_ITS | Encounter Summary ---
Author Organization [facility] Address [address] [id number] Care Team Providers Care Digital Pre Press Operator Name Role Phone Mustapha James MD Primary Care Provider [phone] Miguel Lamb MD Unavailable Reason for Visit * Auth/Cert (Routine) Specialty Diagnoses / Procedures Referred By Contac t Referred To Contact Diagnoses S/P coronary artery stent placement S/P coronary artery stent placement [Z95.5] Procedures SD PRQ TRLUML CORONARY STENT W/ANGIO ONE ART/BRNCH Percutaneous coronary intervention Miguel Lamb MD [address] [place] [address] Phone: tel: fax: Cardiac Darkroom Worker [address] [place] [address] Phone: tel: Referral ID Status Reason Start Date Expiration Date Visits Re quested Visits Authorized [id number] 1 1 Encounter Details Date Type Department Care Team (Latest Contact Info) Description 09/18/2024 7:17 AM EDT - 09/18/2024 3:19 PM EDT Hospital Encounter Cardiac Darkroom Worker [address] [place] [address] Miguel Lamb MD [address] [place] [address] S/P coronary artery stent placement Discharge Disposition: Home or Self Care Social [...] Sign Reading Time Taken Comments Blood Pressure 124/65 09/18/2024 12:30 PM EDT Pulse 116 09/18/2024 12:45 PM EDT Temperature 36.6 C (97.8 F) 09/18/2024 10:53 AM EDT Respiratory Rate 32 09/18/2024 12:45 PM EDT Oxygen Saturation 93% 09/18/2024 1:22 PM EDT Inhaled Oxygen Concentration - - Weight 93.2 kg (205 lb 7.5 oz) 09/18/2024 8:14 A M EDT Height 160 cm (5' 3 ) 09/18/2024 8:14 AM EDT Body Mass Index 36.4 09/18/2024 8:14 AM EDT documented in this encounter Functional Status * Calculated C-SSRS Risk Score (Lifetime/Recent) Answer Date of Assessment Author No Risk Indicated 09/18/2024 8:02 AM EDT Suresh Blackwell RN * Question Answer Date of Assessment Author 1. Wish to be (Past 1 Month) No 025 8:02 AM EDT Suresh Blackwell RN 2. Non-Specific Active Suici sil Thoughts (Past 1 Month) No 09/18/2024 8:02 AM EDT Tha Blackwell RN 6. Suicidal Behavior (Lifetime) No 8:02 AM EDT Suresh Blackwell RN documented as of this encounter Medications at [...] solution prefilled syringe Inject under the skin. fluticasone (Flonase) 50 MCG/ACT nasal spray Administer 1 spray into each nostril daily. 07/24/2019 Fluticasone-Umec lidin-Vilant (Trelegy Ellipta) 100-62.5-25 MCG/ACT aerosol powder Inhale. furosemide (Lasix) 20 MG tablet Take 1 tablet by mouth daily. 07/24/2019 HYDROcodone-acet aminophen ([place]) 7.5-325 MG tablet Take 1 tablet by [...] Take 1 tablet by mouth daily. 08/29/2024 VITAMIN D, CHOLECALCIFEROL, PO Take by mouth. famotidine (Pepcid) 20 MG tablet Take 1 tablet by mouth twice a day. nitroglycerin (Nitrostat) 0.[address] 1 tablet under the tongue every 5 minutes as needed for chest pain. 30 tablet 11 09/18/2024 6 documented as of this encounter Miscellaneous Notes * Nursing Note - Madison Lopez RN - 09/18/2024 3:08 PM EDT Patient received discharge instructions at bedside. Patient and family deny questions or concerns at this time. Patient GCS 15 and ambulated with steady gait and is appropriate for discharge. Patientdenies chest pain, shortness of breath, or weakness. PIV removed. Right groin site c/d/I without bleeding to hematoma post ambulation. Vital signs stable upon discharge. Patient escorted to car by NCT in wheelchair. * Suresh Blum RN - 09/18/2024 12:35 PM EDT Images from the original note were not included. [id number] Bleeding or Hematoma After Cardiac Catheterization You recently had cardiac catheterization. A catheter was put into your body through a puncture of an artery in your groin or arm. You might have bleeding from this site. When bleeding occurs, it may drip or spurt from the site. Or it may collect in a lump (hematoma) under the skin. This often needsurgent evaluation in an emergency room. First put direct pressure on the site, and call 911 or [email or web address] take you to the emergency room. In the emergency room, more pressure will be put on the site to stop bleeding. You may be sent home if the bleeding can be controlled and you are feeling well enough. To prevent repeat bleeding, take some precautions at home. If the bleeding starts again, follow the advice below. Home care For the next 48 hours: ?? Don't do any strenuous activity. ?? Don't climb any stairs if possible. ?? Don't lift anything greater than 5 pounds. ?? If the puncture site is in your arm or wrist, don't lie on that arm. ?? If your puncture site is in the groin, don't strain at bowel movements. ?? Don't scrub the site when bathing. It's fine to get it wet after your health care provider says it's okay, but don't scrub it or massage it. Don't take a tub bath for 3 days after the procedure. ?? Don't drive for the next 48 hours. If bleeding happens again, call 911. Take the following steps to stop the bleeding until help arrives: ?? Lie on your back. ?? Place a clean cloth or gauze pad over the puncture site. Then hold firm pressure right on the site. Or have someone else apply firm pressure using the gauze pad or washcloth. ?? If the site is in your arm or wrist, keep your arm straight and raised above the level of your heart. If the site is in your groin, have someone else hold pressure on the site. ?? Don't press too hard! If you press too hard, your leg and foot (or arm and hand) will not get blood flow, and the skin under your toenails or fingernails may turn white. The skin should look pink,like the toenails on your other foot. When the toenail is pressed, it will turn white, but when youstop pressing on the nail it will turn pink again. This is called capillary refill. If there is someone with you, they can check it. ?? If your toes, foot, or leg start feeling numb, tingly, or cold, ease up on the pressure. You areprobably pressing too hard. ?? As soon as emergency care arrives, they will take over your care. Follow-up care Follow up with your health care provider, or as advised. Ask your provider for a contact number to call. Call 911 Call 911 if any of these occur: ?? Chest pain or pressure ?? Any bleeding from the site ?? Feeling weak or faint ?? Trouble breathing ?? Lump (hematoma) is quickly getting larger ?? Coolness, numbness, tingling, or skin color changes in the leg or arm with the puncture site When to get medical advice Contact your health care provider or get medical care right away if you have: ?? Increased pain, redness, swelling, or drainage from the puncture site. ?? Nausea or vomiting. ?? A fever of 100.4??F (38??C) or higher, or as directed by your provider. Last Reviewed Date: 2024 00:00:00 ?? [id number] The [employer]. All rights reserved. This information is not intended as a substitute for professional medical care. Always follow your healthcare professional's instructions. * [facility] - Suresh Blackwell RN - 09/18/2024 12:35 PM EDT Images from the original note were not included. 637 After TR Band Removal How do I care for myself at home? Medicines: ?? Keep taking all your prescribed medicines, unless you heart doctor gives different orders. ?? Do not take Metformin or Glucophage for 48 hours, unless you doctor says to take them. Activity: ?? Do not drive yourself home from the hospital. ?? Do not bend or strain your wrist. Avoid activities like knitting or using the computer. ?? For 48 hours, avoid strenuous activities. This means no heavy work or lifting, driving a standard shift car, or vigorous sports. ?? Do not lift anything heavier than a gallon of milk with the affected arm for the next week. Dressing: ?? You may remove the dressing after 24 hours. Replace it with a regular Band-Aid. ?? Leave the Band-Aid on another day. ?? You may see a little blood on the Band-Aid. This is normal. Showers and baths: ?? You may shower the next day. After your shower, pat the wound dry and cover with a Band-Aid. ?? For 3 days, do not soak in a bath tub or soak the wound in a pool or hot tub. Bruising: For a couple weeks, you may have a small bruise or lump near the wound. This is normal. What if I start to bleed? If you have a little bleeding from the wound: Sit down right away. Put firm pressure to the wound for 10 minutes. Your nurse will show you how to do this. If the bleeding stops: Sit quietly and do not move the affected arm for 2 hours. Tell your doctor as soon as you can. If the bleeding does not stop after 10 minutes, or if there is a lot blood or spurting: HOLD firm pressure and call 911 right away[address] not drive yourself to the hospital. Just sit or lie down and hold firm pressure. When do I follow up with my doctor? We will schedule a time for you to see the doctor in the clinic. When should I call the doctor? Call your doctor right away if you have any of these: ?? Changes in the bruise or lump ?? Redness near the wound ?? Drainage from the wound ?? Increased pain or swelling near the wound ?? Numbness in your arm or wrist If you cannot contact your doctor, please go to the nearest emergency department. * Pre-Procedure Note - Doron Thomas MD - 09/18/2024 8:48 AM EDT Images from the original note were not included. CARDIOLOGY SEDATION PRE-PROCEDURAL ASSESSMENT AND SEDATION PLAN OF CARE Indication for procedure: The encounter diagnosis was S/P coronary artery stent placement. Planned Procedure: PCI to RCA Relevant past medical history: see H&P Previous problems with surgery, anesthesia or sedation: No Previous family history or problems with anesthesia or sedation: No Relevant Labs: Lab Results Component Value Date CREATININE 1.36 (H) 08/31/2024 EGFR 48 09/18/2024 INR 1.4 (H) 07/16/2019 Planned Sedation/Anesthesia: Moderate Airway assessment: normal Mallampati Score: II (hard and soft palate, upper portion of tonsils anduvula visible) ASA: ASA 3 - Patient with moderate systemic disease with functional limitations Directed physical examination: GENERAL: Awake, alert, NAD HEENT: NCAT NECK: No appreciable JVD CARDIAC: Regular rate, regular rhythm, normal S1/S2, systolic murmur at RUSB PULM: CTAB without increased work of breathing ABD: Soft, NT, ND EXT: Warm and well perfused, 1+ LE edema SKIN: No rashes or lesions NEURO: A&Ox4, moving all extremities spontaneously Benefits, risks and alternatives of procedure and planned sedation have been discussed with the patient and/or their account manager sales representative. All questions answered and they agree to proceed. * H&P - Doron Thomas MD - 09/18/2024 8:44 AM EDT Images from the original note were not included. CARDIOLOGY HISTORY & PHYSICAL SUBJECTIVE History Of Present Illness Jodi Byrne is a 69 y.o. female with a past medical history significant for CAD s/p prior PCI to L main 2019 and more recently PCI to L main and ostial RCA 08/30/2024 who presents for PCI of residualmid RCA stenosis. PCI of mid RCA deferred due to long case and heavy contrast load previously. She reports on going daily angina and dyspnea on exertion. Has lower extremity edema. Takes aspirin and plavix. Took plavix this AM. Takes aspirin at night and took last evening. Has been taking steroids,benadryl for contrast allergy pre treatment. Review of Systems 14 point ROS reviewed and is otherwise negative except that which is mentioned in the HPI. Past Medical History Medical History[1] Surgical History Surgical History[2] Family History Reviewed and non-contributory. Social History Tobacco use: current Alcohol use: Denies any significant recent usage. Other: Denies any recent illicit drug use. Allergies Iodinated contrast media, Iodine, Atorvastatin, Crestor [rosuvastatin], Demerol hcl [meperidine], Pseudoephedrine hcl, and Statins Home Medications Current Outpatient Medications Medication Instructions albuterol 108 (90 Base) MCG/ACT inhaler 2 puffs, Once aspirin 81 mg, Daily baclofen (Lioresal) 10 MG tablet 3 times daily cetirizine (ZYRTEC) 10 mg, Daily clopidogrel (PLAVIX) 75 mg, Oral, Daily diazePAM (VALIUM) 5 mg, 2 times daily diphenhydrAMINE (Benadryl) 50 MG tablet Take 1 tablet 1 hour prior to surgery Evolocumab (Repatha) 140 MG/ML solution prefilled syringe Inject under the skin. famotidine (PEPCID) 20 mg, 2 times daily fluticasone (Flonase) 50 MCG/ACT nasal spray 1 spray, Daily Gojmrfxuows-Udewlivun-Dvbnta (Trelegy Ellipta) 100-62.5-25 MCG/ACT aerosol powder Inhale. furosemide (LASIX) 20 mg, Daily HYDROcodone-acetaminophen ([place]) 7.5-325 MG tablet 1 tablet, Every 8 hours PRN lansoprazole (PREVACID) 30 mg, Daily levothyroxine (SYNTHROID, LEVOXYL) 50 mcg, Daily before breakfast lisinopril 20 mg, Daily metoprolol succinate XL (TOPROL-XL) 50 mg, Daily montelukast (SINGULAIR) 10 mg, Nightly Multiple Vitamins-Iron tablet 1 tablet, Daily Nexletol 180 MG tablet 1 tablet, Daily nitroglycerin (NITROSTAT) 0.4 mg, Sublingual, Every 5 min PRN predniSONE (Deltasone) 50 MG tablet Take 13 hours, 7 hours and 1 hour prior to surgery VITAMIN D, CHOLECALCIFEROL, PO Take by mouth. OBJECTIVE Physical Exam Blood pressure 135/77, pulse 105, temperature 36.6 ??C (97.8 ??F), temperature source Oral, resp. rate 22, height 1.6 m (5' 3 ), weight 93.2 kg (205 lb 7.5 oz), SpO2 91%. GENERAL: Awake, alert, NAD HEENT: NCAT NECK: No appreciable JVD CARDIAC: Regular rate, regular rhythm, normal S1/S2, systolic murmur at RUSB PULM: CTAB without increased work of breathing ABD: Soft, NT, ND EXT: Warm and well perfused, 1+ LE edema SKIN: No rashes or lesions NEURO: A&Ox4, moving all extremities spontaneously Results / Imaging Reviewed ASSESSMENT/PLAN Jodi Byrne is a 69 y.o. female with a past medical history significant for CAD s/p prior PCI to L main 2019 and more recently PCI to L main and ostial RCA 08/30/2024 who presents for PCI of residualmid RCA stenosis. CAD s/p prior PCI to L main, RCA -Plan to proceed with PCI to mid RCA -Took plavix this AM, aspirin last evening -Planned femoral access -Has been taking predisone, benadryl for contrast allergy Doron Thomas MD Fellow, PGY-6, Department of Cardiovascular Medicine Pager: [phone] [1] Past Medical History: Diagnosis Date COPD (chronic obstructive pulmonary disease) (CMS/HCC) HLD (hyperlipidemia) HTN (hypertension) Lung cancer (CMS/HCC) Seasonal allergies [2] Past Surgical History: Procedure Laterality Date BACK SURGERY CARDIAC STENT HYSTERECTOMY KNEE SURGERY Cosigned by Miguel Lamb MD at 09/18/2024 12:59 PM EDT Associated attestation - Miguel Lamb MD - 09/18/2024 12:59 PM EDT I saw and evaluated the patient with the resident/fellow. I discussed the case with the resident/fellow and agree with the findings and plan as documented. * Significant Event - Nishi Payan RN - 09/11/2024 12:33 PM EDT Patient verbalized understanding of pre procedure instructions and directions. Has allergy to IV contrast dye- has prednisone and benadryl and knows schedule for taking 1st dose prednisone Mon 09/17 at 730 pm 2nd dose prednisone Tu09/18 at 0130 am Instructed patient to bring 3rd dose prednisone and single dose of benadryl with her to cath holding and alert the RN she them to take 1 hour prior to procedure documented in this encounter Plan of Treatment Upcoming Encounters Date Type Department Care Team (Late st Contact Info) Description 01/04/2025 2:00 PM EDT Appointment Cardiac Imaging [address] [place] [address] 01/04/2025 3:30 PM EDT Office Visit [facility] [address] [place] [address] Miguel Lamb MD [address] [place] [address] documented as of this encounter Procedures Procedure Name Priority Date/Time Associated Diagnosis Comments PERC CORONARY INTERVENTION Routine 09/18/2024 10:38 AM EDT S/P coronary artery stent placement POCT ACT UNSOLICITED RESULTS Routine 09/18/2024 9:52 AM EDT POCT ACT UNSOLICITED RESULTS Routine 09/18/2024 9:32 AM EDT POCT CREATININE ISTAT UNSOLICITED RESULTS Routine 09/18/2024 8:24 AM EDT CBC WITH AUTO DIFFERENTIAL Routine 09/18/2024 8:20 AM EDT BASIC METABOLIC PANEL, PLASMA Routine 09/18/2024 8:20 AM EDT documented in this encounter Results * PERC CORONARY INTERVENTION (09/18/2024 10:38 AM EDT) Anatomical Region Laterality Modality Other Narrative 09/18/2024 1:02 PM EDT Conclusion: 1. Previously placed proximal RCA stent is patent 2. 70% ostial RCA stenosis s/p successful PCI with placement of an overlapping 3.5 x 12 mm [place] Manjit drug-eluting stent. Ostium flared to 4.0. 3. Serial 70% diffuse lesions of the mid-distal RCA s/p successful PCI with placement of overlapping 3.0 x 26 mm and 2.75 x 30 mm [place] Manjit drug-eluting stents (proximal-distal). Recommendations: 1. Post-PCI EKG. Post vascular care as ordered. Discharge today. 2. DAPT with ASA and Plavix for 12 months. 3. High intensity statin therapy. 4. Aggressive secondary prevention including formal exercise regimen, dietary counseling, weight loss, blood pressure, blood glucose control, and tobacco cessation, as applicable. Procedure Details Prior coronary angiogram from 08/30/2024 was reviewed. After informed consent was obtained, the patient was brought to the cardiac catheterization laboratory with intent to perform percutaneous intervention to the right coronary artery. A time out was done to confirm the correct patient, site and procedure. The patient's groin was prepped and draped in sterile fashion. The skin overlying the patient's right femoral artery was anesthetized with 1% lidocaine. Using modified Seldinger technique and under US guidance, an 18-gauge cook needle was used to puncture the right femoral artery, and 0.035 J-tipped guidewire was advanced into the femoral artery without difficulty. A 6F short sheath was advanced over a guidewire and flushed. At that time heparin was given through the radial sheath. A 6F JR 4 guide catheter was advanced into the ascending aorta over a 0.035'' J-tip guidewire and used to engage the right coronary artery. Reference coronary angiography was obtained using a small amount of contrast, injected by hand. After confirming therapeutic activated clotting time, a Prowater wire was advanced beyond the lesion and into the distal RCA. We advanced an Emerge RX 2.5 x 20 mm balloon into the mid-dstial RCA lesion and inflated to 12 rachael. The balloon was withdrawn slightly and serial inflations performed using the same technique. We then advanced a 2.75 mm x 30 mm [place] Manjit drug eluting stent into the lesion and deployed at 12 rachael. We then placed and overlapping 3.0 x 26 mm [place] Manjit drug-eluting stent proximal to the aforementioend stent, inflated to 12 rachael. Post-dilation of the proximal-mid stent was then carried out using a 3.0 NC balloon. We then closely evaluated the ostium which appeared to have disease and appeared to be uncovered. We then advanced a 3.5 x 12 mm [place] W[place] drug- eluting stent in the proximal RCA and covering the ostium, inflated to 12 rachael. Post- dilation was then carried out using a 3.5 followed by a 4.0 NC balloon, inflated to 20 rachael. The balloon and wires were removed and final angiography was performed to ensure that there was no perforation, dissection or side branch loss. The guide catheter was removed over a wire. Femoral angiography showed the arteriotomy site at the level of the femoral head and above the bifurcation of the superficial femoral artery and profunda artery. A 6F Perclose device was used in arteriotomy site to achieve successful hemostasis. The patient was transferred back to the chemistry laboratory technician holding area in good condition. Coronary Findings Diagnostic Dominance: Right Left Main: Not engaged. Right Coronary Artery: Dominant for posterior circulation, the RCA supplies a posterolateral branch and the posterior descending artery. There is a patent stent in the proximal RCA. There appears to be a 70% ostial RCA stenosis. There are serial 70% diffuse lesions in the mid and distal RCA. Ost RCA to Dist RCA lesion is 70% stenosed. Intervention Ost RCA to Dist RCA lesion: Angioplasty: Angioplasty using standard was performed prior to stent deployment. The balloon used was a CATHETER BALLOON EMERGE MR 20X2.5. Maximum pressure: 12 rachael. Inflation time: 10 sec. Stent: Drug-eluting stent was successfully placed. The stent used was a STENT CORONARY FRONTIER MANJIT RX 2.75MM X 30MM. Stent was deployed by way of balloon expansion. Maximum pressure: 12 rachael. Inflation time: 10 sec. Stent: Drug-eluting stent was successfully placed. The stent used was a STENT CORONARY FRONTIER MANJIT RX 3.00MM X 26MM. Stent was deployed by way of balloon expansion. Maximum pressure: 12 rachael. Inflation time: 10 sec. Angioplasty: Angioplasty using noncompliant was performed following stent deployment. The balloon used was a CATHETER BALLOON EMERGE MR 3X15MM. Maximum pressure: 18 rachael. Inflation time: 10 sec. Stent: Drug-eluting stent was successfully placed. The stent used was a STENT CORONARY FRONTIER MANJIT RX 3.50MM X 12MM. Stent was deployed by way of balloon expansion. Maximum pressure: 12 rachael. Inflation time: 10 sec. Angioplasty: Angioplasty using noncompliant was performed following stent deployment. The balloon used was a CATHETER BALLOON EMERGE MR 3.5X15MM. Maximum pressure: 18 rachael. Inflation time: 10 sec. Angioplasty: Angioplasty using noncompliant was performed following stent deployment. The balloon used was a CATHETER BALLOON EMERGE MR 4X8MM. Maximum pressure: 18 rachael. Inflation time: 10 sec. Post-Intervention Lesion Assessment: The intervention was successful. The guidewire crossed the lesion. Device was deployed. Post-intervention GARRISON flow is 3. There were no complications. There is a 0% residual stenosis post intervention. Hemodynamic Data Pressures Phase: Resting Aortic AO: 123/49 (74) mmHg Miguel Lamb MD CV CARDIAC CATH PROCEDURES Sheyla caban Result * POCT ACT (09/18/2024 9:52 AM EDT) [facility] Signature ACT (Low Range) 352 65 - 400 seconds 09/26/2024 9:35 AM EDT [facility] Producer ID Mary Marin 09/26/2024 9:35 AM EDT [facility] ACT Device ID [id number] 09/26/2024 9:35 AM EDT [facility] Comment 09/26/2024 9:35 AM EDT [facility] Comment: [...] Whole Blood Venous blood specimen / Unknown 09/18/2024 9:52 AM EDT 09/26/2024 9:35 AM EDT us Miguel Lamb MD LAB POINT OF CARE TE ST DOCKED DEVICE UNSOLICITED RESULTS Final Result Performing Organization Address City/[facility] de Phone Number HEALTHCARE [facility] [address] [facility] [address] [place] [address] * POCT ACT (09/18/2024 9:32 AM EDT) ACT (Low Range) 247 65 - 400 seconds 09/26/2024 9:35 AM EDT [facility]ALTH[facility]ARE [facility] Producer ID Mary Marin 09/26/2024 9:35 AM EDT HEALTHCARE LAB ACT Device ID [id number] 09/26/2024 9:35 AM EDT [facility] Comment 09/26/2024 9:35 AM EDT [facility] Comment: [...] Whole Blood Venous blood specimen / Unknown 09/18/2024 9:32 AM EDT 09/26/2024 9:35 AM EDT us Miguel Lamb MD LAB POINT OF CARE TE ST DOCKED DEVICE UNSOLICITED RESULTS Final Result Performing Organization Address City/[facility] de Phone Number HEALTHCARE LAB [address] LAB [address] [place] [address] * (ABNORMAL) POCT creatinine (09/18/2024 8:24 AM EDT) Creatinine, Point of Care 1.2(H) 0.6 - 1.1 mg/dL 09/18/2024 8:28 AM EDT HEALTHCARE [facility] POCT eGFR 48 mL/min/1. 73m*2 09/18/2024 8:28 AM EDT [facility] Producer ID Rosangela Gallegos 09/18/2024 8:28 AM EDT HEALTHCARE LAB Device ID [id number] 09/18/2024 8:28 AM EDT [facility] Comment 09/18/2024 8:28 AM EDT [facility] Comment:Testing performed on i-STAT at the point of care. Reported eGFRcr in mL/min/1.73m2 is based the CKD-EPI 2020 equation that does not use a race coefficient. Blood Venous blood specimen / Unknown 09/18/2024 8:24 AM EDT 09/18/2024 8:28 AM EDT Miguel Lamb MD LAB POINT OF CARE TE ST DOCKED DEVICE UNSOLICITED RESULTS Final Result [facility] [address] [facility] [address] [place] [address] * (ABNORMAL) CBC and differential (09/18/2024 8:20 AM EDT) WBC Count 8.79 3.70 - 10.30 10*3/uL LAB HEMATOLOGY METHOD 09/18/2024 8:38 AM EDT [facility] RBC Count 2.65(L) 3.90 - 5.20 10*6/uL LAB HEMATOLOGY METHOD 09/18/2024 8:38 AM EDT [facility] HGB 7.2(L) 11.2 - 15.7 g/dL LAB HEMATOLOGY METHOD 09/18/2024 8:38 AM EDT [facility] HCT 24.6(L) 34.0 - 45.0 % LAB HEMATOLOGY METHOD 09/18/2024 8:38 AM EDT [facility] Platelet Count 358 155 - 369 10*3/uL LAB HEMATOLOGY METHOD 09/18/2024 8:38 AM EDT [facility] MCV 93 79 - 98 fL LAB HEMATOLOGY METHOD 09/18/2024 8:38 AM EDT [facility] MCH 27.2 26.0 - 32.0 pg LAB HEMATOLOGY METHOD 09/18/2024 8:38 AM EDT [facility] MCHC 29.3(L) 30.7 - 35.5 g/dL LAB HEMATOLOGY METHOD 09/18/2024 8:38 AM EDT [facility] RDW 16.0(H) 11.5 - 14.5 % LAB HEMATOLOGY METHOD 09/18/2024 8:38 AM EDT [facility] MPV 10.4 8.8 - 12.5 fL LAB HEMATOLOGY METHOD 09/18/2024 8:38 AM EDT [facility] nRBC 0.0 <=0.0 per 100 WBCs LAB HEMATOLOGY METHOD 09/18/2024 8:38 AM EDT [facility] Differential Type Automated LAB HEMATOLOGY METHOD 09/18/2024 8:38 AM EDT [facility] Neutrophils % 90 % LAB HEMATOLOGY METHOD 09/18/2024 8:38 AM EDT [facility] Lymphocytes % 6 % LAB HEMATOLOGY METHOD 09/18/2024 8:38 AM EDT [facility] Monocytes % 2 % LAB HEMATOLOGY METHOD 09/18/2024 8:38 AM EDT [facility] Eosinophils % 1 % LAB HEMATOLOGY METHOD 09/18/2024 8:38 AM EDT [facility] Basophils % 0 % LAB HEMATOLOGY METHOD 09/18/2024 8:38 AM EDT [facility] Immature Granulocytes % 1 % LAB HEMATOLOGY METHOD 09/18/2024 8:38 AM EDT [facility] Neutrophils Absolute 7.96(H) 1.60 - 6.10 10*3/uL LAB HEMATOLOGY METHOD 09/18/2024 8:38 AM EDT [facility] Lymphocytes Absolute 0.56(L) 1.20 - 3.90 10*3/uL LAB HEMATOLOGY METHOD 09/18/2024 8:38 AM EDT [facility] Monocytes Absolute 0.13(L) 0.30 - 0.90 10*3/uL LAB HEMATOLOGY METHOD 09/18/2024 8:38 AM EDT [facility] Eosinophils Absolute 0.07 0.00 - 0.50 10*3/uL LAB HEMATOLOGY METHOD 09/18/2024 8:38 AM EDT [facility] Basophils Absolute 0.02 0.00 - 0.10 10*3/uL LAB HEMATOLOGY METHOD 09/18/2024 8:38 AM EDT [facility] Immature Granulocytes Absolute 0.05 0.00 - 0.06 10*3/uL LAB HEMATOLOGY METHOD 09/18/2024 8:38 AM EDT [facility] Blood Venous blood specimen / Unknown Venipuncture / Unknown 09/18/2024 8:20 AM EDT 09/18/2024 8:26 AM EDT Narrative [facility] - 09/18/2024 8:38 AM EDT Therapeutic decision making should be based on absolute values, rather than percentages. us Miguel Lamb MD LAB BLOOD ORDERABLES Final Resu lt [facility] [address] [place] [address] * (ABNORMAL) Basic metabolic panel (09/18/2024 8:20 AM EDT) Glucose, Plasma 157(H) 74 - 99 mg/dL 09/18/2024 8:58 AM EDT [facility] BUN, Plasma 17 8 - 23 mg/dL 09/18/2024 8:58 AM EDT [facility] Creatinine, Plasma 1.05 0.60 - 1.10 mg/dL 09/18/2024 8:58 AM EDT [facility] BUN/Creatinine Ratio 16 09/18/2024 8:58 AM EDT [facility] Sodium, Plasma 138 136 - 145 mmol/L 09/18/2024 8:58 AM EDT [facility] Potassium, Plasma 4.5 3.6 - 4.9 mmol/L 09/18/2024 8:58 AM EDT [facility] Chloride, Plasma 100 97 - 107 mmol/L 09/18/2024 8:58 AM EDT [facility] CO2, Plasma 23 22 - 29 mmol/L 09/18/2024 8:58 AM EDT [facility] Anion Gap 15 6 - 16 mmol/L 09/18/2024 8:58 AM EDT [facility] Total Calcium, Plasma 9.4 8.9 - 10.2 mg/dL 09/18/2024 8:58 AM EDT [facility] eGFRcr 56.9 mL/min/1.7 3m*2 09/18/2024 8:58 AM EDT [facility] Comment:Reported eGFRcr in m L/min/1.73m2 is based the CKD-EPI 2020 equation that does not use a race coefficient. 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) S/P coronary artery stent placement Postsurgical percutaneous transluminal coronary angioplasty status documented in this encounter Admitting Diagnoses Diagnosis S/P coronary artery stent placement Postsurgical percutaneous transluminal coronary angioplasty status documented in this encounter Administered Medications Inactive Administered Medications - up to 3 most recent administrations Medication Order MAR Action Action Date Dose Rate Site acetaminophen (Tylenol) tablet 650 mg 650 mg, Oral, Every 4 hours PRN, Starting on Tue09/18/24 at 1057, Until Tue09/18/24 at 1719, Routine, Recovery(Phase II-Outpatient)/On Unit(Inpatient), mild pain, fever sodium chloride 0.9 % flush 10 mL 10 mL, Intravenous, Every 12 hours, First dose on Tue09/18/24 at 0945, Until Discontinued, Routine, Holding - Preprocedure sodium chloride 0.9 % flush 10 mL 10 mL, Intravenous, As needed, Starting on Tue09/18/24 at 0849, Until Tue09/18/24 at 1719, Routine, Holding - Preprocedure, line care documented in this encounter Active and Recently Administered Medications Times are shown in EDT. Scheduled Medication Order 09/16/2024 09/17/2024 09/18/2024 sodium chloride 0.9 % flush 10 mL(Linked Group 1) 10 mL, Intravenous, Every 12 hours, First dose on Tue09/18/24 at 0945, Until Discontinued, Routine, Holding - Preprocedure 0945 (Canceled Entry - Provider: Automatic Discharge Provider - Comment: Automatically canceled at discontinue of medication order) PRN Medication Order 09/16/2024 09/17/2024 09/18/2024 acetaminophen (Tylenol) tablet 650 mg 650 mg, Oral, Every 4 hours PRN, Starting on Tue09/18/24 at 1057, Until Tue09/18/24 at 1719, Routine, Recovery(Phase II-Outpatient)/On Unit(Inpatient), mild pain, fever fentaNYL (Sublimaze) injection (CANCELED) As needed, Starting on Tue09/18/24 at 0917, Until Tue09/18/24 at 1045, Routine, Intraprocedure 0912 (Given - Provid er: Janice Cramer RN)0917 (Given - Provider: Janice Cramer RN)0943 (Given - Provider: Janice Cramer RN)1003 (Given - Provider: Janice Cramer RN)1032 (Given - Provider: Janice Cramer RN) heparin (porcine) injection (CANCELED) As needed, Starting on Tue09/18/24 at 0928, Until Tue09/18/24 at 1045, Routine, Intraprocedure 0928 (Given - Provid er: Valerie Duke DO)0936 (Given - Provider: Janice Cramer RN) iodixanol (VISIPaque) 320 MG/ML injection (CANCELED) As needed, Starting on Tue09/18/24 at 1041, Until Tue09/18/24 at 1045, Routine, Intraprocedure 1041 (Given - Provid er: Miguel Lamb MD) lidocaine (Xylocaine) 2 % injection (CANCELED) As needed, Starting on Tue09/18/24 at 0925, Until Tue09/18/24 at 1045, Routine, Intraprocedure 0925 (Given - Provid er: Valerie Duke DO) midazolam (Versed) injection (CANCELED) As needed, Starting on Tue09/18/24 at 0917, Until Tue09/18/24 at 1045, Routine, Intraprocedure 0912 (Given - Provid er: Janice Cramer RN)0917 (Given - Provider: Janice Cramer, RN)0943 (Given - Provider: Janice Cramer RN) nitroglycerin (Tridil) in D5W IV solution 100 mcg/mL (CANCELED) As needed, Starting on Tue09/18/24 at 1000, Until Tue09/18/24 at 1045, Routine, Intraprocedure 1000 (Given - Provid er: Valerie Duke, DO) sodium chloride 0.9 % flush 10 mL(Linked Group 1) 10 mL, Intravenous, As needed, Starting on Tue09/18/24 at 0849, Until Tue09/18/24 at 1719, Routine, Holding - Preprocedure, line care Linked Groups Order Group 1: Insert peripheral IV (CANCELED) Once, On Tue09/18/24 at 0850, For 1 occurrence, If a device procedure must have two IV lines with one in the left., Holding - Preprocedure And Saline lock IV (CANCELED) Once, On Tue09/18/24 at 0850, For 1 occurrence, Holding - Preprocedure And sodium chloride 0.9 % flush 10 mLJump to med 10 mL, Intravenous, Every 12 hours, First dose on Tue09/18/24 at 0945, Until Discontinued, Routine, Holding - Preprocedure And sodium chloride 0.9 % flush 10 mLJump to med 10 mL, Intravenous, As needed, Starting on Tue09/18/24 at 0849, Until Tue09/18/24 at 1719, Routine, Holding - Preprocedure, line care documented in this encounter Additional Health Concerns Assessment Noted Time PHQ-9 Depression Total Score: 0 07/21/19 11:35 AM EDT A fall risk assessment has been complete d for the patient 08/15/2024 10:46 AM EDT A Body Mass Index follow-up plan has been documented for the patient 09/18/2024 12:35 PM EDT documented as of this encounter Care Teams Digital Pre Press Operator Relationship Specialty Start Date End Date Mustapha James MD [address] [place] [address] [place] [address] PCP - General 09/05/20 Miguel Lamb MD [address] [place] [address] [phone] Referring Physician Interventional Cardiology 08/16/24 documented as of this encounter
--- OUTSIDE RECORDS SUMMARY | 2024-09-18 08:30 | XMS_ITS | Encounter Summary ---
Author Organization [facility] Address [address] [id number] Care Team Providers Care Pipelines Manager Name Role Phone Mustapha James MD Primary Care Provider [phone] Miguel Lamb MD Unavailable [phone] Reason for Visit * Auth/Cert (Routine) Specialty Diagnoses / Procedures Referred By Contac t Referred To Contact Diagnoses S/P coronary artery stent placement S/P coronary artery stent placement [Z95.5] Procedures CA PRQ TRLUML CORONARY STENT W/ANGIO ONE ART/BRNCH Percutaneous coronary intervention Miguel Lamb MD [address] [place] [address] Phone: tel: fax: Cardiac General Passenger Agent [address] [place] [address] Phone: tel: Referral ID Status Reason Start Date Expiration Date Visits Re quested Visits Authorized [id number] 1 1 Encounter Details Date Type Department Care Team (Late st Contact Info) Description 09/18/2024 8:30 AM EDT - 09/18/2024 10:30 AM EDT Surgery Cardiac General Passenger Agent [address] [place] [address] Miguel Lamb MD [address] [place] [address] Percutaneous coronary intervention [90998 (CPT )] Surgery Details Date/Time Status Location OR Service Patient Class Case Class Case Type Trauma Case? 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 03 Cardiovascular [facility] Outpatient Surgery E-Elect marija Panel 1 Procedure LRB Anes Op Region Wound Class Comments Percutaneous coronary intervention N/A Moderate Sedation Surgeon Surgeon Role Service Panel Miguel Lamb MD Primary Cardiovascular 1 Valerie Duke Fellow Cardiovascular 1 documented in this encounter Social [...] Sign Reading Time Taken Comments Blood Pressure 135/77 09/18/2024 8:16 AM EDT Pulse 105 09/18/2024 8:14 AM EDT Temperature 36.6 C (97.8 F) 09/18/2024 8:14 AM EDT Respiratory Rate 22 09/18/2024 8:14 AM EDT Oxygen Saturation 90% 09/18/2024 10:02 AM EDT Inhaled Oxygen Concentration - - [...] tablet by mouth daily. 07/24/2019 HYDROcodone-acet aminophen ([place]) 7.5-325 MG tablet Take 1 tablet by [...] for chest pain. 30 tablet 11 09/18/2024 documented as of this encounter Miscellaneous Notes [...] to car by NCT in wheelchair. * Trace Pierre - Suresh Blackwell RN - 09/18/2024 12:35 PM EDT Images from the original note were not included. [id number] Bleeding or Hematoma After Cardiac Catheterization You [...] on the site, and call 911 [facility]. In [...] provider. Last Reviewed Date: 2024 00:00:00 ?? [id number] [employer]. All rights reserved. This information is not intended as a substitute for professional medical care. Always follow your healthcare professional's instructions. * Trace MichelleFHLUCY - Suresh Blackwell RN - 09/18/2024 12:35 [...] been discussed with the patient and/or their business process representative. All questions answered and they agree [...] 50 MCG/ACT nasal spray 1 spray, Daily Cxhtxeiimyb-Pzjehzcnz-Ybcqry (Trelegy Ellipta) 100-62.5-25 MCG/ACT aerosol powder Inhale. furosemide (LASIX) 20 mg, Daily HYDROcodone-acetaminophen ([place]) 7.5-325 MG tablet 1 tablet, Every 8 [...] Fellow, PGY-6, Department of Cardiovascular Medicine Pager: [phone] [1] Past Medical History: Diagnosis Date COPD (chronic obstructive pulmonary disease) ([facility]) HLD (hyperlipidemia) HTN (hypertension) Lung cancer (CMS/HCC) [...] 09/17 at 730 pm 2nd dose prednisone 09/18 at 0130 am Instructed patient to bring 3rd dose prednisone and single dose of benadryl with her to cath holding and alert the RN she them to take 1 hour prior to procedure documented in this encounter Plan of Treatment Upcoming Encounters Date Type Department Care Team (Late st Contact Info) Description 01/04/2025 2:00 PM EDT Appointment Cardiac Imaging [address] [place] [phone] 01/04/2025 3:30 PM EDT Office Visit [facility] [address] [facility]. [address] [place] [phone] Miguel Lamb MD [address] [place] [address] documented as of this encounter Procedures Procedure [...] of an overlapping 3.5 x 12 mm Leake Manjit drug-eluting stent. Ostium flared to 4.0. 3. Serial 70% diffuse lesions of the mid-distal RCA s/p successful PCI with placement of overlapping 3.0 x 26 mm and 2.75 x 30 mm Leake Garber drug-eluting stents (proximal-distal). Recommendations: 1. Post-PCI EKG. [...] After confirming therapeutic activated clotting time, a DepotPointwater wire was advanced beyond the lesion and into the distal RCA. We advanced an Emerge RX 2.5 x 20 mm balloon into the mid-dstial RCA lesion and inflated to 12 rachael. The balloon was withdrawn slightly and serial inflations performed using the same technique. We then advanced a 2.75 mm x 30 mm Leake Manjit drug eluting stent into the lesion and deployed at 12 rachael. We then placed and overlapping 3.0 x 26 mm Leake Garber drug-eluting stent proximal to the aforementioend stent, inflated to 12 rachael. Post-dilation of the proximal-mid stent was then carried out using a 3.0 NC balloon. We then closely evaluated the ostium which appeared to have disease and appeared to be uncovered. We then advanced a 3.5 x 12 mm Leake Garber drug- eluting stent in the proximal RCA [...] The patient was transferred back to the molder labels holding area in good condition. Coronary Findings [...] Phase: Resting Aortic AO: 123/49 (74) mmHg us Miguel Lamb MD CV CARDIAC CATH PROCEDURES Sheyla caban Result * POCT ACT (09/18/2024 9:52 AM EDT) [facility] ACT (Low Range) 352 65 - 400 seconds 09/26/2024 9:35 AM EDT HEALTHCARE LAB Automated Process Operator ID Fister-Mary Saenz 09/26/2024 9:35 AM EDT [facility] ACT Device ID [id number] 09/26/2024 9:35 AM EDT [facility] Comment 09/26/2024 9:35 AM EDT [facility] Comment: ACT performed by [...] 9:52 AM EDT 09/26/2024 9:35 AM EDT Miguel Lamb MD LAB POINT OF CARE TE ST DOCKED DEVICE UNSOLICITED RESULTS Final Result Performing Organization Address City/[facility]/ZIP Co de Phone Number HEALTHCARE LAB [address] LAB [address] [place] [address] * POCT ACT (09/18/2024 9:32 AM EDT) ACT (Low Range) 247 65 - 400 seconds 09/26/2024 9:35 AM EDT [facility] Automated Process Operator ID Fister-Me tc, Mary 09/26/2024 9:35 AM EDT [facility] ACT Device ID [id number] 09/26/2024 9:35 AM EDT HEALTHCARE LAB Comment 09/26/2024 9:35 AM EDT [facility] Comment: ACT performed by [...] 9:32 AM EDT 09/26/2024 9:35 AM EDT Miguel Lamb MD LAB POINT OF CARE TE ST DOCKED DEVICE UNSOLICITED RESULTS Final Result Performing Organization Address City/[facility]/ZIP Co de Phone Number HEALTHCARE LAB [address] LAB [address] [place] [address] * (ABNORMAL) POCT creatinine (09/18/2024 8:24 AM EDT) [facility] Creatinine, Point of Care 1.2(H) 0.6 - 1.1 mg/dL 09/18/2024 8:28 AM EDT HEALTHCARE LAB POCT eGFR 48 mL/min/1. 73m*2 09/18/2024 8:28 AM EDT HEALTHCARE LAB Automated Process Operator ID Rosangela Gallegos 09/18/2024 8:28 AM EDT HEALTHCARE LAB Device ID [id number] 09/18/2024 8:28 AM EDT HEALTHCARE LAB Comment 09/18/2024 8:28 AM EDT [facility] Comment:Testing performed on i-STAT at the point of care. Reported eGFRcr in mL/min/1.73m2 is based the CKD-EPI 2020 equation that does not use a race coefficient. Blood Venous blood specimen / Unknown 09/18/2024 8:24 AM EDT 09/18/2024 8:28 AM EDT Miguel Lamb MD LAB POINT OF CARE TE ST DOCKED DEVICE UNSOLICITED RESULTS Final Result HEALTHCARE LAB [address] LAB [address] [place] [address] * (ABNORMAL) CBC and differential (09/18/2024 8:20 AM EDT) Pathologist [facility] WBC Count 8.79 3.70 - 10.30 10*3/uL LAB HEMATOLOGY METHOD 09/18/2024 8:38 AM EDT [facility] RBC Count 2.65(L) 3.90 - 5.20 10*6/uL LAB HEMATOLOGY METHOD 09/18/2024 8:38 AM EDT [facility] HGB 7.2(L) 11.2 - 15.7 g/dL LAB HEMATOLOGY METHOD 09/18/2024 8:38 AM EDT [facility] HCT 24.6(L) 34.0 - 45.0 % LAB HEMATOLOGY METHOD 09/18/2024 8:38 AM EDT [facility] Platelet Count 358 155 - 369 10*3/uL LAB HEMATOLOGY METHOD 09/18/2024 8:38 AM EDT [facility] MCV 93 79 - 98 fL LAB HEMATOLOGY METHOD 09/18/2024 8:38 AM EDT [facility] MCH 27.2 26.0 - 32.0 pg LAB HEMATOLOGY METHOD 09/18/2024 8:38 AM EDT [facility] MCHC 29.3(L) 30.7 - 35.5 g/dL LAB HEMATOLOGY METHOD 09/18/2024 8:38 AM EDT [facility] RDW 16.0(H) 11.5 - 14.5 % LAB HEMATOLOGY METHOD 09/18/2024 8:38 AM EDT [facility] MPV 10.4 8.8 - 12.5 fL LAB HEMATOLOGY METHOD 09/18/2024 8:38 AM EDT [facility] nRBC 0.0 <=0.0 per 100 WBCs LAB HEMATOLOGY METHOD 09/18/2024 8:38 AM EDT [facility] Differential Type Automated LAB HEMATOLOGY METHOD 09/18/2024 8:38 AM EDT [facility] Neutrophils % 90 % LAB HEMATOLOGY METHOD 09/18/2024 8:38 AM EDT [facility] Lymphocytes % 6 % LAB HEMATOLOGY METHOD 09/18/2024 8:38 AM EDT [facility] Monocytes % 2 % LAB HEMATOLOGY METHOD 09/18/2024 8:38 AM EDT [facility] Eosinophils % 1 % LAB HEMATOLOGY METHOD 09/18/2024 8:38 AM EDT [facility] Basophils % 0 % LAB HEMATOLOGY METHOD 09/18/2024 8:38 AM EDT [facility] Immature Granulocytes % 1 % LAB HEMATOLOGY METHOD 09/18/2024 8:38 AM EDT [facility] Neutrophils Absolute 7.96(H) 1.60 - 6.10 10*3/uL LAB HEMATOLOGY METHOD 09/18/2024 8:38 AM EDT [facility] Lymphocytes Absolute 0.56(L) 1.20 - 3.90 10*3/uL LAB HEMATOLOGY METHOD 09/18/2024 8:38 AM EDT [facility] Monocytes Absolute 0.13(L) 0.30 - 0.90 10*3/uL LAB HEMATOLOGY METHOD 09/18/2024 8:38 AM EDT [facility] Eosinophils Absolute 0.07 0.00 - 0.50 10*3/uL LAB HEMATOLOGY METHOD 09/18/2024 8:38 AM EDT [facility] Basophils Absolute 0.02 0.00 - 0.10 10*3/uL LAB HEMATOLOGY METHOD 09/18/2024 8:38 AM EDT [facility] Immature Granulocytes Absolute 0.05 0.00 - 0.06 10*3/uL LAB HEMATOLOGY METHOD 09/18/2024 8:38 AM EDT [facility] Blood Venous blood specimen / Unknown Venipuncture / Unknown 09/18/2024 8:20 AM EDT 09/18/2024 8:26 AM EDT Narrative [facility] - 09/18/2024 8:38 AM EDT Therapeutic decision making should be based on absolute values, rather than percentages. us Miguel Lamb MD LAB BLOOD ORDERABLES Final Resu lt [facility] [address] [place] [address] * (ABNORMAL) Basic metabolic panel (09/18/2024 8:20 AM EDT) Glucose, Plasma 157(H) 74 - 99 mg/dL 09/18/2024 8:58 AM EDT [facility] BUN, Plasma 17 8 - 23 mg/dL 09/18/2024 8:58 AM EDT [facility] Creatinine, Plasma 1.05 0.60 - 1.10 mg/dL 09/18/2024 8:58 AM EDT [facility] BUN/Creatinine Ratio 16 09/18/2024 8:58 AM EDT [facility] Sodium, Plasma 138 136 - 145 mmol/L 09/18/2024 8:58 AM EDT [facility] Potassium, Plasma 4.5 3.6 - 4.9 mmol/L 09/18/2024 8:58 AM EDT [facility] Chloride, Plasma 100 97 - 107 mmol/L 09/18/2024 8:58 AM EDT [facility] CO2, Plasma 23 22 - 29 mmol/L 09/18/2024 8:58 AM EDT [facility] Anion Gap 15 6 - 16 mmol/L 09/18/2024 8:58 AM EDT [facility] Total Calcium, Plasma 9.4 8.9 - 10.2 mg/dL 09/18/2024 8:58 AM EDT [facility] eGFRcr 56.9 mL/min/1.7 3m*2 09/18/2024 8:58 AM EDT [facility] Comment:Reported eGFRcr in m L/min/1.73m2 is based the CKD-EPI 2020 equation that does not use a race coefficient. Blood Venous blood specimen / Unknown Venipuncture / Unknown 09/18/2024 8:20 AM EDT 09/18/2024 8:27 AM EDT us Miguel Lamb MD LAB BLOOD ORDERABLES Final Resu lt [facility] [address] [place] [address] documented in this encounter Visit Diagnoses Diagnosis S/P coronary artery stent placement- Primary Postsurgical percutaneous transluminal coronary angioplasty status Coronary artery disease involving [place] coronary artery of [place] heart with angina pectoris ([facility]) S/P coronary artery stent placement Postsurgical percutaneous [...] Unit(Inpatient), mild pain, fever fentaNYL (Sublimaze) injection As needed, Starting on Tue09/18/24 at 0917, Until Tue09/18/24 at 1045, Routine, Intraprocedure Given 09/18/2024 10:32 AM EDT 25 mcg Given 09/18/2024 10:03 AM EDT 25 mcg Given 09/18/2024 9:43 AM EDT 25 mcg heparin (porcine) injection As needed, Starting on Tue09/18/24 at 0928, Until Tue09/18/24 at 1045, Routine, Intraprocedure Given 09/18/2024 9:36 AM EDT 2,000 Units Given 09/18/2024 9:28 AM EDT 9,000 Units iodixanol (VISIPaque) 320 MG/ML injection As needed, Starting on Tue09/18/24 at 1041, Until Tue09/18/24 at 1045, Routine, Intraprocedure Given 09/18/2024 10:41 AM EDT 175 mL lidocaine (Xylocaine) 2 % injection As needed, Starting on Tue09/18/24 at 0925, Until Tue09/18/24 at 1045, Routine, Intraprocedure Given 09/18/2024 9:25 AM EDT 5 mL Right Femoral midazolam (Versed) injection As needed, Starting on Tue09/18/24 at 0917, Until Tue09/18/24 at 1045, Routine, Intraprocedure Given 09/18/2024 9:43 AM EDT 1 mg Given 09/18/2024 9:17 AM EDT 1 mg Given 09/18/2024 9:12 AM EDT 1 mg nitroglycerin (Tridil) in D5W IV solution 100 mcg/mL As needed, Starting on Tue09/18/24 at 1000, Until Tue09/18/24 at 1045, Routine, Intraprocedure Given 09/18/2024 10:00 AM EDT 200 mcg sodium chloride 0.9 % flush 10 mL [...] Intraprocedure 0912 (Given - Provid er: Janice Cramer, RN)0917 (Given - Provider: Janice Cramer RN)0943 (Given - Provider: Janice Cramer RN) nitroglycerin (Tridil) in D5W IV solution 100 mcg/mL (CANCELED) As needed, Starting on Tue09/18/24 at 1000, Until Tue09/18/24 at 1045, Routine, Intraprocedure 1000 (Given - Provid er: Valerie Duke, ) sodium chloride 0.9 % flush 10 mL(Linked [...] documented as of this encounter Care Teams Pipelines Manager Relationship Specialty Start Date End Date Mustapha James MD [facility] [place] [address] PCP - General 09/05/20 Miguel Lamb MD [address] [place] [phone] Referring Physician Interventional Cardiology 08/16/24 documented as of this encounter
[2024-11-15] VITALS (19 sets, daily range): BP systolic 82–138; BP diastolic 42–87; PULSE 94–115; RESP 16–19; TEMP 36.5–37.1; O2SAT 92–95
--- OUTSIDE RECORDS SUMMARY | 2024-11-15 08:59 | XMS_ITS | Encounter Summary ---
Author Organization [facility] Address [address] [place] [id number] Care Team Providers Care Painter Chassis Name Role Phone Mustapha James MD Primary Care Provider [phone] Miguel Lamb MD Unavailable [phone] Encounter Details Date Type Department Care Team (Late st Contact Info) Description 11/02/2024 Telephone [facility] [address] [phone] [place] [address] Social History Tobacco Use Types Packs/Day Years [...] PM EDT Appointment [facility] [address] [place] [address] 01/04/2025 3:30 PM EDT Office Visit [facility] 800 [facility] [place] [address] Miguel Lamb MD 800 [place] [address] documented as of this encounter [...] documented as of this encounter Care Teams Painter Chassis Relationship Specialty Start Date End Date Mustapha James MD [address] [place] [address] PCP - General 09/05/20 Miguel Lamb MD 800 [place] [address] Referring Physician Interventional Cardiology 08/16/24 documented as of this encounter
--- OUTSIDE RECORDS SUMMARY | 2024-11-15 08:59 | XMS_ITS | Encounter Summary ---
Author Organization [employer] ([place], [place], [place], [place]) Address [address] [place] [address] Care Team Providers Care Ingot Caster Name Role Phone Unavailable Primary Care Provider Unavailabl e Encounter Details Date Type Department Care Team (Late st Contact Info) Description 02/09/2019 Transcribed Document [facility] [place] [address] ProviderRegina MD [address] [place] [address] Social History Tobacco Use Types Packs/Day [...] Source : Measured Height Entry Format : Manatee Height, Inches : 63 Inch(Converted to: 5 ft 3 Inch, 160.02 cm) Clinical Height : 160.02 cm Weight Source : Standing scale Weight Entry Format : Man[place]e Clinical Dosing Weight : 85.91 kg Weight, Pounds : 189 lb Body Surface Area (BSA) : 1.89 m2 Body Mass Index : 33.6 kg/m2 (HI) [place] Body Weight : 52 kg ABRAHAM STOKES RN - 02/12/2019 11:04 EDT Health Histories Smoking Status : 4 or less cigarettes(less than 1/4 pack)/day in last 30 days Smokeless Tobacco Status : Never Desires Tobacco Cessation Medication : No Reason for No Tobacco Cessation Medication : Refuses FDA approved medications Implant/Device Type, Art Instructor and Model : neck fusion and lumbar [...] Region : No Tuberculosis Symptoms : None MAYR MCGRAW RN - 02/09/2019 15:36 EDT Anesthesia/Transfusion [...] Obtained From : Patient Primary Language : Turkmen Communication Barrier : None MARY MCGRAW RN [...]
--- OUTSIDE RECORDS SUMMARY | 2024-11-15 08:59 | XMS_ITS | Encounter Summary ---
Author Organization [facility] Address [address] [place] [id number] Care Team Providers Care Senior Php Developer Name Role Phone Mustapha James MD Primary Care Provider [phone] Miguel Lamb MD Unavailable [phone] Encounter Details Date Type Department Care Team (Late st Contact Info) Description 11/02/2024 Telephone [facility] [address] [phone] [place] [address] Social History Tobacco Use Types Packs/Day Years [...] PM EDT Appointment [facility] [address] [place] [address] 01/04/2025 3:30 PM EDT Office Visit [facility] [address] [facility] [place] [address] Miguel Lamb MD 800 [place] [address] documented as of this encounter [...] documented as of this encounter Care Teams Senior Php Developer Relationship Specialty Start Date End Date Mustapha James MD [address] [place] [address] PCP - General 09/05/20 Miguel Lamb MD [address] [place] [address] Referring Physician Interventional Cardiology 08/16/24 documented as of this encounter
--- OUTSIDE RECORDS SUMMARY | 2024-11-15 09:00 | XMS_ITS | Encounter Summary ---
Author Organization [employer] [facility] ([place], [place], [place], [place]) Address [address] [place] [address] Care Team Providers Care Admin Asst Name Role Phone Unavailable Primary Care Provider Unavailabl e Encounter Details Date Type Department Care Team (Late st Contact Info) Description 02/12/2019 Transcribed Document [facility] Family Medicine [facility] [place] [address] ProviderRegina MD [address] [place] [address] Social History Tobacco Use Types Packs/Day [...] Henley MD - 02/12/2019 5:18 PM CDT [facility] [place] [address] THOMAS GTZ SRIRAM :1955 Visit Time:02/12/2019 Your Visit Summary Your Care Team Admitting Physician - TONY PEÑA MD-SUR Attending Physician - TONY PEÑA MD-SUR Primary Care Physician - JACKIE BABIN MD-FAM Referring Physician - JACKIE BABIN MD-FAM PHY, NOT LISTED Your Diagnosis Atherosclerosis of apache arteries of extremities with intermittent claudication, unspecified extremity, Atherosclerosis of apache arteries of extremities with intermittent claudication, unspecified [...] Appointment has been made with [facility]. Where: [address] [place], [place] [phone] [phone] Medications What How Much When Instructions Next Dose acetaminophen-hydrocodone (Oracle 7.5 mg-325 mg oral tablet) 1 Tablet(s) [...] Document Reviewed: 05/14/2011 ExitCare?? Patient Information ??2013 [employer]. Angiogram, Care After This sheet gives you [...] and water are not available, use hand cone trucker. ? Change your dressing as told by [...] contrast dye from your body. ??? Take ofmz-ltq-udekmzj and prescription medicines only as told by [...] 10/28/2005 Document Revised: 03/16/2017 Document Reviewed: 03/16/2017 [employer] Interactive Patient Education ?? 2019 [employer]. Moderate Conscious Sedation, Adult, Care After These [...] you are awake and alert. ??? Take pzwb-wuy-dncavyq and prescription medicines only as told by [...] 01/30/2014 Document Revised: 09/13/2016 Document Reviewed: 07/31/2016 [employer] Interactive Patient Education ?? 2019 [employer].FM. Emergency Awareness and Preventative Care STROKE is [...] Assistance with quitting is available by contacting 1-725-TJZN-NOW. This is a free resource providing counseling, [...] was given the opportunity to ask questions. 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
--- OUTSIDE RECORDS SUMMARY | 2024-11-15 09:00 | XMS_ITS | Encounter Summary ---
Author Organization [employer] ([place], [place], [place], [place]) Address [address] [place] [address] Care Team Providers Care Baby Attendant Name Role Phone Unavailable Primary Care Provider Unavailabl e Encounter Details Date Type Department Care Team (Late st Contact Info) Description 02/12/2019 Transcribed Document [facility] Family Medicine [facility] [place] [address] ProviderRegina MD [address] [place] [address] Social History Tobacco Use Types [...] Document Reviewed: 05/14/2011 ExitCare? Patient Information ?2013 [employer]. Angiogram, Care After This sheet gives you [...] and water are not available, use hand oil treater. ? Change your dressing as told by [...] contrast dye from your body. ??? Take mrgy-gjg-anyxzdz and prescription medicines only as told by [...] 10/28/2005 Document Revised: 03/16/2017 Document Reviewed: 03/16/2017 [employer] Interactive Patient Education ? 2019 [employer]. Moderate Conscious Sedation, Adult, Care After [...] you are awake and alert. ??? Take paba-nmo-nhwiyno and prescription medicines only as told by [...] 01/30/2014 Document Revised: 09/13/2016 Document Reviewed: 07/31/2016 [employer] Interactive Patient Education ? 2019 [employer] documented in this encounter Plan of Treatment Not on file documented as of this encounter Visit Diagnoses Not on filedocumented in this encounter
--- OUTSIDE RECORDS SUMMARY | 2024-11-15 09:00 | XMS_ITS | Encounter Summary ---
Author Organization [employer] ([place], [place], [place], [place]) Address [address] [place] [address] Care Team Providers Care Resident Service Coordinator Name Role Phone Unavailable Primary Care Provider Unavailabl e Encounter Details Date Type Department Care Team (Late st Contact Info) Description 03/14/2019 Transcribed Document [facility] [place] Family Medicine [facility] [address] ProviderRegina [place] [address] Social History Tobacco Use Types [...] - Regina ProviderMD - 03/14/2019 12:37 PM QUALITY DIRECTOR [facility] Main OR IntraOp Summary Primary Physician: TONY PEÑA MD-SUR Finalized Date/Time: 03/15/19 11:29:27 Pt. Name: JODI GTZ SRIRAM Reynolds/Sex: 1955 Female Med Rec #: [id number] Physician: TONY PEÑA MD-SUR Financial #: [id number] Pt. Type: O Room/Bed: Admit/Disch: 03/14/19 09:48:00 - 03/14/19 17:30:00 Institution: [facility] IntraOp Case Attendance Entry 1 Entry 2 Entry 3 Case Attendee TONY PEÑA MD-SUR CALDWELL, JOSEPH A, CRNA BOWEN, JON B, MD-ANS Role Performed Surgeon/Proceduralist, BINDING CEMENTER [employer] CORD/Nurse Farmworker Field Crop Anesthesiologist First Time In 03/14/19 12:18:00 03/14/19 [...] KIERSTEN KHALIL, Gia Liu, Coco Hagan, Cardiovascular Service Developer Role Performed Supervisor Scouring Pads, First Supervisor Scouring Pads, Second Service Developer Time In 03/14/19 12:18:00 03/14/19 12:18:00 03/14/19 12:18:00 Time Out 03/14/19 14:07:00 03/14/19 14:07:00 03/14/19 14:07:00 Procedure Aortogram Abdominal Aortogram Abdominal Aortogram Abdominal with Runoff(Left) with Runoff(Left) with Runoff(Left) Other Attendee Superficial Wound Closed By: Last Modified By: Gia Armendariz RN Duncan, Richelle, Gia Liu RN 03/14/19 14:07:56 03/14/19 14:07:56 03/14/19 14:07:56 Entry 7 Case Attendee Mayra Castrejon [employer] Role Performed Service Developer Time In 03/14/19 12:18:00 Time Out 03/14/19 14:07:00 Procedure Aortogram Abdominal with Runoff(Left) Other Attendee Superficial Wound Closed By: Last Modified By: Gia Armendariz RN 03/14/19 14:07:56 [facility] IntraOp Case Attendance Audit 03/14/19 14:07:56 Plumbing Manager: [id number] Modifier: [id number] 1 <+> Time Out 1 <*> Procedure [...] Procedure Aortogram Abdominal with Runoff(Left) 03/14/19 13:11:30 Plumbing Manager: [id number] Modifier: [id number] 1 <*> Procedure Aortogram Abdominal with Runoff(Left) 2 <*> Procedure Aortogram Abdominal with Runoff(Left) 3 <*> Procedure Aortogram Abdominal with Runoff(Left) 4 <*> Procedure Aortogram Abdominal with Runoff(Left) 5 <*> Procedure Aortogram Abdominal with Runoff(Left) 6 <+> Time In 6 <*> Procedure Aortogram Abdominal with Runoff(Left) 7 <+> Time In 7 <*> Procedure Aortogram Abdominal with Runoff(Left) 03/14/19 12:47:49 Plumbing Manager: [id number] Modifier: [id number] <+> 6 Case Attendee <+> 6 Role Performed <+> 6 Procedure <+> 7 Case Attendee <+> 7 Role Performed <+> 7 Procedure 03/14/19 12:46:19 Plumbing Manager: [id number] Modifier: [id number] <+> 1 Procedure 2 <*> Procedure Aortogram Abdominal with Runoff(Left) 3 <+> Time In 3 <*> Procedure Aortogram Abdominal with Runoff(Left) 4 <+> Time In 4 <*> Procedure Aortogram Abdominal with Runoff(Left) 5 <+> Time In 5 <*> Procedure Aortogram Abdominal with Runoff(Left) 03/14/19 12:45:34 Plumbing Manager: [id number] Modifier: [id number] 2 <+> Time In 2 <*> Procedure Aortogram Abdominal with Runoff(Left) <+> 3 Case Attendee <+> 3 Role Performed <+> 3 Procedure <+> 4 Case Attendee <+> 4 Role Performed <+> 4 Procedure <+> 5 Case Attendee <+> 5 Role Performed <+> 5 Procedure [facility] IntraOp Case Times Entry 1 Patient In Room Time 03/14/19 12:18:00 Out Room Time 03/14/19 14:07:00 Anesthesia Start Time 03/14/19 12:18:00 Stop Time 03/14/19 14:07:00 Anesthesia Ready 03/14/19 12:18:00 Surgery / Procedure Times Start Time 03/14/19 12:37:00 Stop Time 03/14/19 14:01:00 Last Modified By: Gia Armendariz RN 03/14/19 12:39:43 [facility] IntraOp Case Times Audit 03/14/19 14:07:55 Plumbing Manager: [id number] Modifier: [id number] <+> 1 Out Room Time <+> 1 Stop Time <+> 1 Stop Time [facility] IntraOp Communication Entry 1 Entry 2 Communication To Family/Significant other Family/Significant other Comment START UPDATE Communication By Gia Armendariz RN Duncan, Richelle, RN Date and Time 03/14/19 12:45:00 03/14/19 13:49:00 Last Modified By: Gia Armendariz RN Duncan, Richelle, RN 03/14/19 12:48:01 03/14/19 13:50:06 [facility] IntraOp Communication Audit 03/14/19 13:50:06 Plumbing Manager: [id number] Modifier: [id number] <+> 2 Communication By <+> 2 Date and Time <+> 2 Communication To <+> 2 Comment [facility] IntraOp Departure from OR Entry 1 Integumentary Assessment Integumentary WDL Assessment WDL Transfer/Handoff Transfer to Other Handoff Method Phone call Post-op Transport [facility] Via Patient Transport JACKIE BLANTON MD-ANS, Accompanied by EVERETT FREED CRNA, RESULTAY, JOSEFINA, RN Transfer/Handoff PT TRANSPORTED TO [facility], PT STABLE Last Modified By: Gia Armendariz RN 03/14/19 12:48:40 [facility] IntraOp Dressing and Packing Entry 1 Type Dressing Location OPSITE Wound Dressing Item 4x4's Applied By TONY PEÑA MD-JESUS Other Comments COVADERM Last Modified By: Gia Armendariz RN 03/14/19 12:48:56 [facility] IntraOp Fire Risk Assessment Entry [...] Modified By: Gia Armendariz RN 03/14/19 12:49:12 [facility] IntraOp General Case Stud Driver 1 Case Information OR OR 20 [facility] Case Level 1 Room Verified Yes Wound Class I - Clean Specialty SN General Anesthesia Type MAC ASA Class 3 Diagnosis Preop Diagnosis BILATERAL CLAUDICATION Postop Same As Preop Yes Postop Diagnosis BILATERAL CLAUDICATION Last Modified By: Gia Armendariz RN 03/14/19 13:06:23 [facility] IntraOp General Case Data Audit 03/14/19 13:07:04 Plumbing Manager: [id number] Modifier: [id number] 1 <*> Preop Diagnosis RIGHT ILIAC ARTERY OCCLUSION 1 <*> Postop Diagnosis RIGHT ILIAC ARTERY OCCLUSION 03/14/19 13:06:23 Plumbing Manager: [id number] Modifier: [id number] <+> 1 ASA Class <+> 1 Anesthesia Type <+> 1 Postop Same As Preop <+> 1 Preop Diagnosis <+> 1 Postop Diagnosis <+> 1 Room Verified [facility] IntraOp Implant Log Entry 1 Entry 2 Type Implant (Synthetic) Implant (Synthetic) Implant Log Implant Type Other Tissue Implant Type Implant DEVICE MYNX AUTOMATIC DOOR MECHANIC 6F/ 7F STENT VASC LS 5F 135cm Identification [id number] Description Implant Quantity 1 1 Implant Site LEFT GROIN LEFT SFA Implant Identification Model Number Implant Identification Serial Number Implant [id number] Identification Lot Number Implant Access Closure Cr Bard:Peripheral Vasc Identification Plum Packer Name: Implant [id number] Identification Catalog Number Implant Size Implant Has an Yes Yes Expiration Date Implant Expiration 01/22/21 08/18/20 Date Wasted Radioactive Material Time Implanted Tissue Implant Continue for Tissue Implant Documentation Tissue Identification Number Graft Prep Per Plum Packer Instructions: Tissue Preparation Method: Reconstitution Solution: Reconstitution Solution Lot Number Reconstitution Solution Expiration Date: Thawing Solution Thawing Solution Lot Number Thawing Solution Expiration Date Preparation Materials, Other Preparation Materials, Other Lot Number Preparation Materials, Other Expiration Date Tissue Prepared/Processed By Plum Packer Paperwork Completed Implant Type Comment Last Modified By: Gia Armendariz RN Duncan, Richelle, RN 03/14/19 13:46:31 03/14/19 13:48:58 [facility] IntraOp Implant Log Audit 03/14/19 13:48:58 Plumbing Manager: [id number] Modifier: [id number] <+> 2 Implant Identification Description <+> 2 Implant Identification Lot Number <+> 2 Implant Identification Plum Packer Name: <+> 2 Implant Expiration Date <+> 2 Implant Site <+> 2 Implant Quantity <+> 2 Implant Identification Catalog Number <+> 2 Implant Has an Expiration Date <+> 2 Type [facility] IntraOp Intraoperative Assessment Entry 1 [...] Modified By: Gia Armendariz RN 03/14/19 13:07:39 [facility] IntraOp Intraoperative Equipment Entry 1 Equipment Intraop Monitoring Electrocardiogram Three lead placement (ECG) Electrode Placement Blood Pressure Non-Invasive BP Device Source Blood Pressure Arm, right upper Location Pulse Oximeter Hand, left Probe Site Antiembolic Devices Scopes Photo/Video Documentation Last Modified By: Gia Armendariz RN 03/14/19 13:08:03 [facility] IntraOp Medication Admin Entry 1 [...] Duncan, Richelle, RN 03/14/19 13:10:57 03/14/19 13:10:57 [facility] IntraOp Medication Admin Audit 03/14/19 13:58:22 Plumbing Manager: [id number] Modifier: [id number] 1 <*> Dose 50 [facility] IntraOp Patient Positioning Entry 1 [...] Modified By: Gia Armendariz RN 03/14/19 13:11:17 [facility] IntraOp Sign In Entry 1 [...] Modified By: Gia Armendariz RN 03/14/19 13:11:29 [facility] IntraOp Sign Out Entry 1 [...] Modified By: Gia Armendariz RN 03/14/19 13:11:49 [facility] IntraOp Sign Out Audit 03/14/19 14:01:07 Plumbing Manager: [id number] Modifier: [id number] <+> 1 Sign Out Comment <+> 1 RN Sign Out Signature Date/Time [facility] IntraOp Skin Prep Entry 1 Procedure Aortogram Abdominal with Runoff(Left) Prescribed N/A Pre-Surgical Prep Completed Prep Area LEFT ARM AND HAND TO AXILLA, BILATERAL GROINS, LEFT FOOT Intraop Prep Integumentary WDL Assessment WDL Prep Agents Chloraprep Prep by Gia Armendariz RN Hair Removal Methods No hair removal performed Last Modified By: Gia Armendariz RN 03/14/19 13:12:51 [facility] IntraOp Skin Prep Audit 03/14/19 13:29:16 Plumbing Manager: [id number] Modifier: [id number] 1 <*> Prep Area LEFT ARM AND HAND TO AXILLA, BILATERAL GROINS 1 <*> Procedure Aortogram Abdominal with Runoff(Left) [facility] IntraOp Surgical Procedures Entry 1 [...] LEFT SUPERFICIAL FEMORAL ARTERY ANGIOPLASTY AND STENTING [facility] Intra Surgical Procedures Audit 03/14/19 14:07:58 Plumbing Manager: [id number] Modifier: [id number] 1 <*> Stop 03/14/19 13:37:02 Plumbing Manager: [id number] Modifier: [id number] 1 <*> Procedure Aortogram Abdominal with Runoff [...] L ACCESS W/ ULTRASOUND ACCESS 03/14/19 13:28:04 Plumbing Manager: [id number] Modifier: [id number] 1 <*> Procedure Aortogram Abdominal with Runoff 1 <*> Additional Procedure Description LEFT RADIAL ACCESS UNDER ULTRASOUND GUIDANCE WITH LEFT UPPER EXTREMITY ANGIOGRAM, CATHETER PLACEMENT WITHIN AORTA; LEFT ACCESS UNDER ULTRASOUND GUIDANCE WITH [facility] IntraOP Time Out Entry 1 [...] Modified By: Gia Armendariz, RN 03/14/19 13:16:01 [facility] IntraOp X-Ray and Images Entry 1 X-Ray/Imaging Type Fluoroscopy Fluoroscopy Type Fixed Site OPSITE Materials Scientist Name Coco Pfeiffer, Cardiovascular Service Developer Protective Devices Yes Used Exposure Time 6.6 MIN Last Modified By: Gia Armendariz RN 03/14/19 13:54:17 [facility] IntraOp X-Ray and Images Audit 03/14/19 13:54:17 Plumbing Manager: [id number] Modifier: [id number] <+> 1 Exposure Time Case Comments <None> [...]
--- OUTSIDE RECORDS SUMMARY | 2024-11-15 09:00 | XMS_ITS | Encounter Summary ---
Author Organization [employer] ([place], [place], [place], [place]) Address [address] [place] [address] Care Team Providers Care Restoration Silversmith Name Role Phone Unavailable Primary Care Provider Unavailabl e Encounter Details Date Type Department Care Team (Late st Contact Info) Description 02/12/2019 Transcribed Document [facility] Family Medicine [facility] [place] [address] ProviderRegina MD [facility] [place] [address] Social History Tobacco Use Types [...] Regina ProviderMD - 02/12/2019 2:12 PM CDT [facility] Main OR IntraOp Summary Primary Physician: TONY PEÑA MD-SUR Finalized Date/Time: 02/13/19 11:43:16 Pt. Name: JODI GTZ SRIRAM Reynolds/Sex: 1955 Female Med Rec #: [id number] Physician: TONY PEÑA MD-SUR Financial #: [id number] Pt. Type: O Room/Bed: /11 Admit/Disch: 02/12/19 09:27:00 - 02/12/19 18:10:00 Institution: [facility] IntraOp Case Attendance Entry 1 Entry 2 Entry 3 Case Attendee TONY PEÑA MD-SUR Napier, Elizabeth A, RN Murphy, Whitney, [employer] Role Performed Surgeon/Proceduralist, Control Center Operator, First Executive Legal Secretary First Time In 02/12/19 13:51:00 02/12/19 13:51:00 [...] CALDWELL, JOSEPH A, ROMARIO COWAN MD-ANS Cardiovascular Executive Legal Secretary Role Performed Executive Legal Secretary POURER BUGGY LADLE/Nurse Jukebox Coin Collector Anesthesiologist of Record Time In 02/12/19 13:51:00 [...] Lexus Linda, Martha Zamora RN Role Performed Control Center Operator, First Control Center Operator, Second Time In 02/12/19 14:55:00 02/12/19 13:51:00 Time Out 02/12/19 15:09:00 02/12/19 15:09:00 Procedure Aortogram Abdominal Aortogram Abdominal with Runoff(Right), with Runoff(Right), Arterial Stent Arterial Stent Endovascular(Right) Endovascular(Right) Other Attendee Superficial Wound Closed By: Last Modified By: Lexus Linda, Rn Adilene Dhillon RN 02/12/19 15:50:49 02/13/19 07:01:08 [facility] IntraOp Case Attendance Audit 02/13/19 07:01:21 Wheelchair Rental Clerk: JONN Modifier: EANAPIER 8 <*> Procedure Aortogram Abdominal with Runoff(Right), Arterial Stent Endovascular(Right) 02/13/19 07:01:08 Wheelchair Rental Clerk: JONN Modifier: EANAPIER 1 <*> Procedure Aortogram [...] with Runoff(Right), Arterial Stent Endovascular(Right) 02/13/19 07:01:03 Wheelchair Rental Clerk: MEDARDO Modifier: EANAPIER 2 <*> Time Out 02/12/19 15:09:00 2 <*> Procedure Aortogram Abdominal with Runoff(Right), Arterial Stent Endovascular(Right) <+> 8 Case Attendee <+> 8 Role Performed <+> 8 Procedure 02/12/19 15:53:28 Wheelchair Rental Clerk: SUSANSLOAN Modifier: SUSANSLOAN 7 <*> Time In 02/12/19 15:55:00 7 <*> Procedure Aortogram Abdominal with Runoff(Right), Arterial Stent Endovascular(Right) 02/12/19 15:51:08 Wheelchair Rental Clerk: SUSANSLOAN Modifier: SUSANSLOAN 7 <*> Procedure Arterial Stent Endovascular(Right) 02/12/19 15:50:49 Wheelchair Rental Clerk: SUSANSLOAN Modifier: SUSANSLOAN 7 <*> Time Out 02/12/19 15:48:00 7 <*> Procedure Arterial Stent Endovascular(Right) 02/12/19 15:50:15 Wheelchair Rental Clerk: SUSANSLOAN Modifier: SUSANSLOAN 7 <+> Role Performed 7 <*> Procedure Arterial Stent Endovascular(Right) 02/12/19 15:49:22 Wheelchair Rental Clerk: EANAPIER Modifier: SUSANSLOAN 1 <+> Time Out [...] Time Out <+> 7 Procedure 02/12/19 14:50:28 Wheelchair Rental Clerk: EANAPIER Modifier: EANAPIER 1 <*> Procedure Aortogram Abdominal with Runoff(Right) 2 <*> Procedure Aortogram Abdominal with Runoff(Right) 3 <*> Procedure Aortogram Abdominal with Runoff(Right) 4 <*> Procedure Aortogram Abdominal with Runoff(Right) 5 <*> Procedure Aortogram Abdominal with Runoff(Right) 6 <*> Procedure Aortogram Abdominal with Runoff(Right) 02/12/19 14:30:54 Wheelchair Rental Clerk: EANAPIER Modifier: EANAPIER 1 <*> Procedure Aortogram Abdominal with Runoff(Right) 2 <*> Procedure Aortogram Abdominal with Runoff(Right) 3 <*> Procedure Aortogram Abdominal with Runoff(Right) 4 <*> Procedure Aortogram Abdominal with Runoff(Right) 5 <*> Procedure Aortogram Abdominal with Runoff(Right) 6 <+> Time In 6 <*> Procedure Aortogram Abdominal with Runoff(Right) 02/12/19 14:24:03 Wheelchair Rental Clerk: EANAPIER Modifier: EANAPIER 1 <*> Case Attendee TONY PEÑA MD-JESUS 1 <*> Role Performed Surgeon/Proceduralist, First 1 <*> Time In 02/12/19 13:51:00 1 <*> Procedure Aortogram Abdominal with Runoff(Right) 2 <*> Case Attendee Adilene Dhillon RN 2 <*> Role Performed Control Center Operator, First 2 <*> Time In 02/12/19 13:51:00 2 <*> Procedure Aortogram Abdominal with Runoff(Right) 3 <*> Case Attendee Mayra Castrejon, [employer] 3 <*> Role Performed Executive Legal Secretary 3 <*> Time In 02/12/19 13:51:00 3 <*> Procedure Aortogram Abdominal with Runoff(Right) 4 <*> Case Attendee Coco Pfeiffer, Cardiovascular Executive Legal Secretary 4 <*> Role Performed Executive Legal Secretary 4 <*> Time In 02/12/19 13:51:00 4 <*> Procedure Aortogram Abdominal with Runoff(Right) 5 <*> Case Attendee EVERETT FREED POURER BUGGY LADLE 5 <*> Role Performed POURER BUGGY LADLE/Nurse Jukebox Coin Collector 5 <*> Time In 02/12/19 13:51:00 5 <*> Procedure Aortogram Abdominal with Runoff(Right) Entry 6 was deleted. Higher numbered entries shifted one position to fill the gap. <-> 6 Case Attendee MUSTAPHA DUTTON MD-ANS <-> 6 Role Performed Anesthesiologist of Record <-> 6 Time In 02/12/19 13:51:00 <-> 6 Procedure Aortogram Abdominal with Runoff(Right) 02/12/19 14:15:54 Wheelchair Rental Clerk: EANAPILUIS Modifier: EANAPIER <+> 1 Procedure 2 <+> Time In 2 <*> Procedure Aortogram Abdominal with Runoff(Right) 3 <+> Time In 3 <*> Procedure Aortogram Abdominal with Runoff(Right) 4 <+> Time In 4 <*> Procedure Aortogram Abdominal with Runoff(Right) 5 <+> Time In 5 <*> Procedure Aortogram Abdominal with Runoff(Right) 6 <+> Time In 6 <*> Procedure Aortogram Abdominal with Runoff(Right) 02/12/19 14:13:18 Wheelchair Rental Clerk: HARSHPILUIS Modifier: EANAPIER <+> 2 Case Attendee <+> 2 Role Performed <+> 2 Procedure <+> 3 Case Attendee <+> 3 Role Performed <+> 3 Procedure <+> 4 Case Attendee <+> 4 Role Performed <+> 4 Procedure <+> 5 Case Attendee <+> 5 Role Performed <+> 5 Procedure <+> 6 Case Attendee <+> 6 Role Performed <+> 6 Procedure [facility] IntraOp Case Times Entry 1 Patient In Room Time 02/12/19 13:51:00 Out Room Time 02/12/19 15:09:00 Anesthesia Start Time 02/12/19 13:51:00 Stop Time 02/12/19 15:09:00 Surgery / Procedure Times Start Time 02/12/19 14:12:00 Stop Time 02/12/19 15:00:00 Last Modified By: Lexus Linda Rn 02/12/19 15:21:58 [facility] IntraOp Case Times Audit 02/12/19 15:21:58 Wheelchair Rental Clerk: JONN Modifier: MEDARDO <+> 1 Out Room Time <+> 1 Stop Time <+> 1 Stop Time 02/12/19 14:11:48 Wheelchair Rental Clerk: HARSHPILUIS Modifier: EANAPIER <+> 1 Start Time [facility] IntraOp Communication Entry 1 Communication To Family/Significant other Comment START Date and Time 02/12/19 14:13:00 Last Modified By: Adilene Dhillon RN 02/12/19 14:12:21 [facility] IntraOp Departure from OR Entry 1 Integumentary Assessment Integumentary WDL Assessment WDL Transfer/Handoff Transfer to Other Handoff Method Phone call Post-op Transport Stretcher/[facility] Via Patient Transport Lexus Linda Rn Accompanied by Transfer/Handoff PT TRANSPORTED TO [facility] Last Modified By: Lexus Linda Rn 02/12/19 15:48:30 General Comments: CALLED TO Arthur Gonzalez NURSE [facility] IntraOp Departure from OR Audit 02/12/19 15:49:29 Wheelchair Rental Clerk: MEDARDO Modifier: MEDARDO <+> 1 Patient Transport Accompanied by [facility] IntraOp Dressing and Packing Entry 1 Type Dressing Location OPSITE Wound Dressing Item 4x4's Applied By TONY PEÑA MD-JESUS Other Comments [employer] Last Modified By: Adilene Dhillon RN 02/12/19 14:09:39 [facility] IntraOp Fire Risk Assessment Entry 1 [...] Modified By: Adilene Dhillon RN 02/12/19 14:09:55 [facility] IntraOp Fire Risk Assessment Audit 02/12/19 14:13:31 Wheelchair Rental Clerk: HARSHPILUIS Modifier: EANAPIER <+> 1 Fire Risk Assessment Verified By <+> 1 Fire Risk Assessment Verified Date/Time 02/12/19 14:12:26 Wheelchair Rental Clerk: EASTEPHANIEPILUIS Modifier: EANAPIER 1 <-> Fire Risk Assessment Verified 02/12/19 14:10:00 Date/Time [facility] IntraOp General Case Outside Machinist Helper 1 Case Information OR OR 20 [facility] Case Level 1 Room Verified Yes Wound Class I - Clean Specialty SN Endovascular Anesthesia Type MAC ASA Class 3 Diagnosis Preop Diagnosis BILATERAL LOWER EXTREMITY CLAUDICATION Postop Same As Preop No Postop Diagnosis SEE MD NOTE Last Modified By: Adilene Dhillon RN 02/12/19 14:13:47 [facility] IntraOp General Case Data Audit 02/12/19 14:20:37 Wheelchair Rental Clerk: JONN Modifier: EANAPIER <+> 1 Preop Diagnosis [facility] IntraOp Implant Log Entry 1 Entry 2 Entry 3 Type Implant (Synthetic) Implant (Synthetic) Implant (Synthetic) Implant Log Implant Type Other Tissue Implant Type Implant STENT LS EXP VASC CVR [id number] STENT LS EXP VASC CVR Identification [id number] Description Implant Quantity 1 1 1 Implant Site LEFT COMMON ILIAC ARTERY RIGHT COMMON ILIAC RIGHT COMON ILIAC ARTERY ARTERY Implant [id number] Identification Model Number Implant Identification Serial Number Implant [id number] Identification Lot Number Implant Cr Bard:Peripheral Vasc Cr Bard:Peripheral Vasc Identification Demolition Specialist Name: Implant [id number] Identification Catalog Number Implant Size 7.9 X 24.6 MM 7.9 X 37 MM Implant Has an Yes Yes Yes Expiration Date Implant Expiration 07/23/21 11/22/21 11/22/21 Date Wasted Radioactive Material Time Implanted Tissue Implant Continue for Tissue Implant Documentation Tissue Identification Number Graft Prep Per Demolition Specialist Instructions: Tissue Preparation Method: Reconstitution Solution: Reconstitution Solution Lot Number Reconstitution Solution Expiration Date: Thawing Solution Thawing Solution Lot Number Thawing Solution Expiration Date Preparation Materials, Other Preparation Materials, Other Lot Number Preparation Materials, Other Expiration Date Tissue Prepared/Processed By Demolition Specialist Paperwork Completed Implant Type Comment Last Modified By: Adilene Dhillon RN Napier, Elizabeth A, RN Sloan, Susan, Rn 02/12/19 14:37:35 02/12/19 14:39:27 02/12/19 15:46:28 Entry 4 Entry 5 Entry 6 Type Implant (Synthetic) Implant (Synthetic) Implant (Synthetic) Implant Log Implant Type Other Tube(s) Other Tissue Implant Type Implant STNT BLLN ENDO VBX DEVICE MYNX DIETARY AID 6F/ 7F DEVICE MYNX DIETARY AID 6F/ 7F Identification [id number] Description Implant Quantity 1 1 1 Implant Site RIGHT EXTERNAL ILIAC RIGHT FEMORAL LEFT FEMORAL ARTERY ARTERY Implant [id number] Identification Model Number Implant [id number] Identification Serial Number Implant [id number] Identification Lot Number Implant [facility] [place] [facility]:Med Prdt Access Closure Access Closure Identification Demolition Specialist Name: Implant [id number] Identification Catalog Number Implant Size Implant Has an Yes Yes Yes Expiration Date Implant Expiration 07/29/21 01/22/21 01/22/21 Date Wasted Radioactive Material Time Implanted Tissue Implant Continue for Tissue Implant Documentation Tissue Identification Number Graft Prep Per Demolition Specialist Instructions: Tissue Preparation Method: Reconstitution Solution: Reconstitution Solution Lot Number Reconstitution Solution Expiration Date: Thawing Solution Thawing Solution Lot Number Thawing Solution Expiration Date Preparation Materials, Other Preparation Materials, Other Lot Number Preparation Materials, Other Expiration Date Tissue Prepared/Processed By Demolition Specialist Paperwork Completed Implant Type Comment Last Modified By: Lexus Linda Rn Sloan, Susan, Rn Sloan, Susan, Rn 02/12/19 15:46:28 02/12/19 15:46:28 02/12/19 15:46:28 [facility] IntraOp Implant Log Audit 02/12/19 15:46:28 Wheelchair Rental Clerk: JONN Meng: MEDARDO 1 <*> Implant Identification Description STENT LS EXP VASC CVR [id number] <+> 3 Implant Identification Description <+> 3 Implant Identification Lot Number <+> 3 Implant Identification Demolition Specialist Name: <+> 3 Implant Expiration Date <+> 3 Implant Site <+> 3 Implant Quantity <+> 3 Implant Identification Catalog Number <+> 3 Implant Type <+> 3 Implant Identification Model Number <+> 3 Implant Has an Expiration Date <+> 3 Type <+> 4 Implant Identification Description <+> 4 Implant Identification Serial Number <+> 4 Implant Identification Demolition Specialist Name: <+> 4 Implant Expiration Date <+> 4 Implant Site <+> 4 Implant Quantity <+> 4 Implant Identification Catalog Number <+> 4 Implant Type <+> 4 Implant Identification Model Number <+> 4 Implant Has an Expiration Date <+> 4 Type <+> 5 Implant Identification Description <+> 5 Implant Identification Lot Number <+> 5 Implant Identification Demolition Specialist Name: <+> 5 Implant Expiration Date <+> 5 Implant Site <+> 5 Implant Quantity <+> 5 Implant Identification Catalog Number <+> 5 Implant Type <+> 5 Implant Identification Model Number <+> 5 Implant Has an Expiration Date <+> 5 Type <+> 6 Implant Identification Description <+> 6 Implant Identification Demolition Specialist Name: <+> 6 Implant Expiration Date <+> 6 Implant Site <+> 6 Implant Quantity <+> 6 Implant Identification Catalog Number <+> 6 Implant Type <+> 6 Implant Identification Model Number <+> 6 Implant Has an Expiration Date <+> 6 Type 02/12/19 14:39:27 Wheelchair Rental Clerk: JONN Modifier: JONN <+> 2 Implant Identification Description <+> 2 Implant Identification Lot Number <+> 2 Implant Size <+> 2 Implant Expiration Date <+> 2 Implant Site <+> 2 Implant Quantity <+> 2 Implant Has an Expiration Date <+> 2 Type [facility] IntraOp Intraoperative Assessment Entry 1 Handoff [...] Modified By: Adilene Dhillon RN 02/13/19 06:58:24 [facility] IntraOp Intraoperative Assessment Audit 02/13/19 06:58:24 Wheelchair Rental Clerk: EANAPIER Modifier: EANAPIER 1 <*> Skin Assessment Verified Yes 1 <+> Handoff Method [facility] IntraOp Intraoperative Equipment Entry 1 Type Monitoring Equipment Intraop Monitoring Electrocardiogram Three lead placement (ECG) Electrode Placement Blood Pressure Non-Invasive BP Device Source Blood Pressure Arm, right upper Location Pulse Oximeter Hand, left Probe Site Antiembolic Devices Scopes Photo/Video Documentation Last Modified By: Adilene Dhillon RN 02/12/19 14:15:38 [facility] IntraOp Medication Admin Entry 1 Entry 2 Entry 3 Medication/Irrigant CESAR VISIPAQUE 320MG 150 lidocaine 1% 50ml vial CESAR NACL 0.9PCT HPRN 200ML --[id number] - [id number] 1000U .5L --[id number] Combo Med List Time Administered Route of [...] RN 02/12/19 14:14:13 02/12/19 14:14:13 02/12/19 14:14:13 [facility] IntraOp Medication Admin Audit 02/13/19 06:57:26 Wheelchair Rental Clerk: EANAPIER Modifier: EANAPIER <+> 1 Dose [facility] IntraOp Patient Positioning Entry 1 Procedure [...] Modified By: Adilene Dhillon RN 02/13/19 06:59:18 [facility] IntraOp Patient Positioning Audit 02/13/19 06:59:18 Wheelchair Rental Clerk: JONN Modifier: EANAPIER 1 <*> Procedure Aortogram Abdominal with Runoff(Right), Arterial Stent Endovascular(Right) 1 <*> Positioning Devices Head Rest, Safety Strap, Thighs, Sled Arm Rest 1 <*> Positioned By TONY PEÑA MD-JESUS 02/12/19 14:50:30 Wheelchair Rental Clerk: HARSHPIER Modifier: EANAPIER 1 <*> Procedure Aortogram Abdominal with Runoff(Right) [facility] IntraOp Sign In Entry 1 Patient, [...] Modified By: Adilene Dhillon RN 02/12/19 14:14:44 [facility] IntraOp Sign Out Entry 1 RN [...] Modified By: Adilene Dhillon RN 02/12/19 14:15:04 [facility] IntraOp Sign Out Audit 02/12/19 15:49:49 Wheelchair Rental Clerk: JONN Modifier: JOHNAN <+> 1 RN Sign Out Signature Date/Time 02/12/19 14:16:46 Wheelchair Rental Clerk: JONN Modifier: EANAPIER 1 <*> Urinary Catheter Documented in IView N/A [facility] IntraOp Skin Prep Entry 1 Procedure Aortogram Abdominal with Runoff(Right), Arterial Stent Endovascular(Right) Prescribed N/A Pre-Surgical Prep Completed Prep Area BILATERAL GROINS Intraop Prep Integumentary WDL Assessment WDL Prep Agents Chloraprep Prep by Adilene Dhillon RN Hair Removal Methods No hair removal performed Last Modified By: Adilene Dhillon RN 02/12/19 14:13:55 [facility] IntraOp Skin Prep Audit 02/12/19 14:50:30 Wheelchair Rental Clerk: JONN Modifier: EANAPIER 1 <*> Procedure Aortogram Abdominal with Runoff(Right) [facility] IntraOp Surgical Procedures Entry 1 Entry [...] Elizabeth A, RN 02/13/19 07:00:03 02/12/19 14:50:24 [facility] IntraOp Surgical Procedures Audit 02/13/19 07:00:03 Wheelchair Rental Clerk: MEDARDO Modifier: EANAPIER 1 <*> Procedure Aortogram Abdominal with Runoff 1 <*> Additional Procedure Description (AORTOGRAM WITH RT LEG REVASCULARIZATION) 02/12/19 15:49:57 Wheelchair Rental Clerk: JONN Modifier: ROSALINDALOAN 1 <*> Procedure Aortogram Abdominal with Runoff 1 <+> Stop <+> 2 Stop 02/12/19 14:54:15 Wheelchair Rental Clerk: JONN Modifier: HARSHPIER 1 <*> Procedure Aortogram Abdominal with Runoff 02/12/19 14:50:24 Wheelchair Rental Clerk: JONN Modifier: HARSHPIER <+> 2 Procedure <+> 2 Primary Procedure <+> 2 Modifiers <+> 2 Primary Surgeon <+> 2 Specialty <+> 2 Start <+> 2 Wound Class <+> 2 Anesthesia Type [facility] IntraOP Time Out Entry 1 Procedure [...] Modified By: Adilene Dhillon RN 02/12/19 14:50:31 [facility] IntraOP Time Out Audit 02/12/19 14:50:31 Wheelchair Rental Clerk: JONN Modifier: HARSHPIER 1 <*> Procedure to be Performed Aortogram Abdominal with Runoff(Right) [facility] IntraOp X-Ray and Images Entry 1 X-Ray/Imaging Type Fluoroscopy Fluoroscopy Type Fixed Spray Gun Sizer Name Mayra Castrejon [employer] Protective Devices Yes [...] JORGE Correct Billing Electronically signed by Mickey, [facility] Conversion Documentation Clerk Cerner at 08/13/2022 11:13 AM CDT documented in this encounter Plan of Treatment Not on file documented as of this encounter Visit Diagnoses Not on filedocumented in this encounter
--- OUTSIDE RECORDS SUMMARY | 2024-11-15 09:00 | XMS_ITS | Encounter Summary ---
Author Organization [employer] ([place], [place], [place], [place]) Address [address] [place] [address] Care Team Providers Care Communications Strategist Name Role Phone Unavailable Primary Care Provider Unavailabl e Encounter Details Date Type Department Care Team (Late st Contact Info) Description 03/14/2019 Transcribed Document [facility] [place] [address] [place] [address] ProviderRegina MD [facility] [place], [place] [address] Social History Tobacco Use Types Packs/Day Years Used Date Smoking Tobacco: Never Assessed Comments Unknown Sex and Gender Information Value Date Recorded Sex Assigned at Not on file Legal Sex Female 5:00 PM CDT Gender Identity Not on file Sexual Orientation Not on file documented as of this encounter Miscellaneous Notes * Cerner Conversion Note - Historical ProviderMD - 03/14/2019 4:16 PM FRONT OFFICE DIRECTOR Nursing Discharge Summary Entered On: 03/14/2019 16:19 [...] 03/14/2019 16:16 EST Electronically signed by Mickey [facility] Conversion Ergonomics Engineer Cerner at 08/13/2022 11:21 AM CDT documented in this encounter Plan of Treatment Not on file documented as of this encounter Visit Diagnoses Not on filedocumented in this encounter
--- OUTSIDE RECORDS SUMMARY | 2024-11-15 09:00 | XMS_ITS | Encounter Summary ---
Author Organization [employer] ([place], [place], [place], [place]) Address [address] [place] [address] Care Team Providers Care Geoduck Diver Name Role Phone Unavailable Primary Care Provider Unavailabl e Encounter Details Date Type Department Care Team (Late st Contact Info) Description 03/14/2019 Transcribed Document [facility] [place] [facility] [place] [address] ProviderRegina MD [address] [place] [address] Social History Tobacco Use Types Packs/Day Years Used Date Smoking Tobacco: Never Assessed Comments Unknown Sex and Gender Information Value Date Recorded Sex Assigned at Not on file Legal Sex Female 5:00 PM CDT Gender Identity Not on file Sexual Orientation Not on file documented as of this encounter Miscellaneous Notes * Cerner Conversion Note - Regina ProviderMD - 03/14/2019 12:37 PM BIOMEDICAL ENGINEERING AIDE [facility] Main OR Preop Summary Primary Physician: TONY PEÑA MD-SUR Finalized Date/Time: 03/14/19 13:13:44 Pt. Name: THOMAS GTZ SRIRAM Reynolds/Sex: 1955 Female Med Rec #: [id number] Physician: TONY PEÑA MD-SUR Financial #: [id number] Pt. Type: O Room/Bed: Admit/Disch: 03/14/19 09:48:00 - Institution: [facility] PreOp Case Times Entry 1 In Preop 03/14/19 10:14:00 Ready for Holding n/a Room Patient Ready for 03/14/19 11:25:00 Surgery Patient Out of Preop 03/14/19 12:14:00 Patient Out of n/a Holding Room Last Modified By: Susie Hernández, RN 03/14/19 13:13:43 [facility] PreOp Case Times Audit 03/14/19 13:13:43 Research Worker Encyclopedia: WRIGHTVP Modifier: WRIGHTVP <+> 1 Patient Out of Preop 03/14/19 11:25:55 Research Worker Encyclopedia: WRIGHTVP Modifier: WRIGHTVP <+> 1 Patient Ready for Surgery Finalized By: Susie Hernández RN Document Signatures Signed By: Susie Hernández RN 03/14/19 13:13 Electronically signed by Mickey [facility] Conversion Fretted String Instrument Repairer Cerner at 08/13/2022 11:17 AM CDT documented in this encounter Plan of Treatment Not on file documented as of this encounter Visit Diagnoses Not on filedocumented in this encounter
--- OUTSIDE RECORDS SUMMARY | 2024-11-15 09:00 | XMS_ITS | Referral Summary ---
Author Organization [employer] ([place], [place], [place], [place]) Address [address] [place] [address] Care Team Providers Care Asbestos Shingle Roofer Name Role Phone Unavailable Primary Care Provider [...] Date Mathew rded Speak language other than Welsh at home Not on file 05/13/2023 Want [...]
--- OUTSIDE RECORDS SUMMARY | 2024-11-15 09:00 | XMS_ITS | Encounter Summary ---
Author Organization [employer] ([place], [place], [place], [place]) Address [address] [place] [address] Care Team Providers Care Farm Operations Technical Director Name Role Phone Unavailable Primary Care Provider Unavailabl e Encounter Details Date Type Department Care Team (Late st Contact Info) Description 02/12/2019 Transcribed Document [facility] Radiology [address] [place] [address] Martinez Miller MD [address] [facility] [place] [id number] Social History Tobacco Use Types Packs/Day Years [...] skin and nails, Oral, Daily, 0 Refill(s) [place] 7.5 mg-325 mg oral tablet: 1 Tab, [...] Medication hair, skin and nails, Oral, Daily [place] 7.5 mg-325 mg oral tablet 1 Tab, [...] Problems Cervical spinal stenosis / SNOMED CT 156272768 / Confirmed Smoker / SNOMED CT 337860012 / Confirmed Sinusitis / SNOMED CT 60694655 / Confirmed Seasonal allergies / SNOMED CT 983515488 / Confirmed Restless leg / SNOMED CT 97518031 / Confirmed Colon polyps / SNOMED CT 299002258 / Confirmed Pneumonia / SNOMED CT 538089705 / Confirmed Peripheral vascular disease / SNOMED CT 3975438593 / Confirmed Peptic ulcer / SNOMED CT 08587092 / Confirmed Osteoporosis / SNOMED CT 402748079 / Confirmed Neuropathy, R arm / SNOMED CT 5799015638 / Confirmed Migraines / SNOMED CT 17782519 / Confirmed Skin cancer / SNOMED CT 8739648289 / Confirmed Hypertension / SNOMED CT 5775503429 / Confirmed Hyperlipidemia / SNOMED CT 62964003 / Confirmed Elevated cholesterol / SNOMED CT 18396892 / Confirmed Hiatal hernia / SNOMED CT 030554394 / Confirmed Hemorrhoids / SNOMED CT 053495714 / Confirmed H/O: TIA / SNOMED CT 094022314 / Confirmed GERD (gastroesophageal reflux disease) / SNOMED CT 582676393 / Confirmed Gastritis / SNOMED CT 2380188 / Confirmed Fibromyalgia / SNOMED CT 96222091 / Confirmed Fibroids / SNOMED CT 149164733 / Confirmed Endometriosis / SNOMED CT 2048042775 / Confirmed Diverticulitis / SNOMED CT 044205710 / Confirmed Sinus problem / SNOMED CT 3563873699 / Confirmed Known medical problems / SNOMED CT 253703524 / Confirmed white spots on MRI Known medical problems / SNOMED CT 317490032 / Confirmed anti nuclear A and A antibodies Constipation / SNOMED CT 74251466 / Confirmed COPD (chronic obstructive pulmonary disease) / SNOMED CT 71433616 / Confirmed Chronic cough / SNOMED CT 848104557 / Confirmed Chronic constipation / SNOMED CT 449544683 / Confirmed Stroke, possible / SNOMED CT 720515645 / Confirmed Bursitis / SNOMED CT 305390397 / Confirmed Bronchitis / SNOMED CT 00880525 / Confirmed Back pain / SNOMED CT 174955355 / Confirmed Arthritis / SNOMED CT 5421220 / Confirmed Anemia / SNOMED CT 900397376 / Confirmed Allergic rhinitis / SNOMED CT 563357174 / Confirmed, Active Problems (39) Allergic rhinitis [...] LE weakness, uses cane. Integumentary: Warm, Dry, [place]. Neurologic: Alert, Oriented. Psychiatric: Cooperative, Appropriate mood & affect. Review / Management Results review: No qualifying data available. Impression and Plan Condition: Stable. documented in this encounter Plan of Treatment Not on file documented as of this encounter Visit Diagnoses Not on filedocumented in this encounter
--- OUTSIDE RECORDS SUMMARY | 2024-11-15 09:00 | XMS_ITS | Clinical Summary ---
Author Organization [facility] Address [address] [place] [address] Care Team Providers Care Certified Travel Counselor Name Role Phone Mustapha James MD Primary Care Provider [phone] Miguel Lamb MD Unavailable [phone] Allergies Active Allergy Reactions Criticality Noted [...] by mouth daily. 0 Active HYDROcodone-joanne taminophen ([place]) 7.5-325 MG tablet Take 1 tablet by [...] Type Department Care Team Description 11/02/2024 Telephone [facility] [address] [phone] Ariana Li 11/02/2024 Telephone [facility] [address] [facility] [phone] Ariana Li 09/18/2024 8:30 AM EDT - 09/18/2024 10:30 AM EDT Surgery Cardiac Sample Box Maker [address] [place] [phone] Miguel Lamb MD Percutaneous coronary intervention [66506 (CPT )] 09/18/2024 7:17 AM EDT - 09/18/2024 3:19 PM EDT Hospital Encounter Cardiac Sample Box Maker [address] [place] [phone] Miguel Lamb MD S/P coronary artery stent placement Discharge Disposition: Home or Self Care 08/30/2024 2:20 PM EDT - 08/30/2024 4:20 PM EDT Surgery Cardiac Sample Box Maker [address] [place] [phone] Miguel Lamb MD Percutaneous coronary intervention [07972 (CPT )] 08/30/2024 1:09 PM EDT - 08/31/2024 1:48 PM EDT Hospital Encounter [facility] Inpatient [address] [place] [phone] Miguel Lamb MD S/P coronary artery stent placement (Primary Dx); Nonrheumatic aortic valve stenosis Discharge Disposition: Home or Self Care 08/30/2024 Travel 08/27/2024 Refill [facility] [address] [phone] Rneee Bravo RN from Last 3 Months Immunizations Immunization [...] PM EDT Appointment Cardiac Imaging [address] [place] [address] 01/04/2025 3:30 PM EDT Office Visit [facility] [place] [facility] [address] [facility] [address] [facility] [place] [address] Miguel Lamb MD [address] [place] [address] Health Maintenance Due Date Last Done Comments [...] 2003 UKY-Diabetes: Hemoglobin A1C 12/01/202212/2022, 07/07/2019, 07/04/2019 YPW-AATVE-45 Vaccine ( season) 2023 02/24/2022, 04/01/2021, 08/06/2020, [...] this topic Medical Devices Implanted Type Area Chronometer Tester Device Identifier Shelf Expiration Date Model / Serial / Lot Stent Pickens Manjit Rx 4.5mm X 12mm - [id number] Implanted:Qty: 1 on 08/30/2024 by Miguel Lamb MD at [id number] 03/21/2027 [id number] UX / / [id number] Stent Coronary Pickens [place] Rx 3.00mm X 18mm - [id number] Implanted:Qty: 1 on 08/30/2024 by Miguel Lamb MD at [id number] 06/14/2027 [id number] UX / / [id number] Stent Coronary Pickens [place] Rx 2.75mm X 30mm - [id number] Implanted:Qty: 1 on 09/18/2024 by Miguel Lamb MD at [id number] 03/25/2027 [id number] UX / / [id number] Stent Coronary [employer]ens [place] Rx 3.00mm X 26mm - [id number] Implanted:Qty: 1 on 09/18/2024 by Miguel Lamb MD at [id number] 06/21/2027 [id number] UX / / [id number] Stent Coronary [employer]ens [place] Rx 3.50mm X 12mm - [id number] Implanted:Qty: 1 on 09/18/2024 by Miguel Labm MD at [id number] 03/04/2027 [id number] UX / / [id number] Procedures Procedure Name Priority Date/Time Associated Diagnosis [...] W/O DIFFERENTIAL STAT 08/30/2024 1:39 PM EDT HEMOGLOBIN A1C Routine 07/07/2019 2:34 AM EDT from Last 3 Months or Most Recently Relevant to Health Maintenance Results * PERC CORONARY INTERVENTION (09/18/2024 10:38 AM EDT) Anatomical Region Laterality Modality Other Narrative 09/18/2024 1:02 PM EDT Conclusion: 1. Previously placed proximal RCA stent is patent 2. 70% ostial RCA stenosis s/p successful PCI with placement of an overlapping 3.5 x 12 mm Pickens Manjit drug-eluting stent. Ostium flared to 4.0. 3. Serial 70% diffuse lesions of the mid-distal RCA s/p successful PCI with placement of overlapping 3.0 x 26 mm and 2.75 x 30 mm Pickens Manjit drug-eluting stents (proximal-distal). Recommendations: 1. Post-PCI [...] After confirming therapeutic activated clotting time, a Youbei Game wire was advanced beyond the lesion and into the distal RCA. We advanced an Emerge RX 2.5 x 20 mm balloon into the mid-dstial RCA lesion and inflated to 12 rachael. The balloon was withdrawn slightly and serial inflations performed using the same technique. We then advanced a 2.75 mm x 30 mm Pickens [place] drug eluting stent into the lesion and deployed at 12 rachael. We then placed and overlapping 3.0 x 26 mm Pickens Manjit drug-eluting stent proximal to the aforementioend stent, inflated to 12 rachael. Post-dilation of the proximal-mid stent was then carried out using a 3.0 NC balloon. We then closely evaluated the ostium which appeared to have disease and appeared to be uncovered. We then advanced a 3.5 x 12 mm Pickens Manjit drug- eluting stent in the proximal [...] The patient was transferred back to the casting house laborer holding area in good condition. [...] BALLOON EMERGE MR 3.5X15MM. Maximum pressure: 18 rahcael. Inflation time: 10 sec. Angioplasty: Angioplasty using [...] 09/26/2024 9:35 AM EDT [facility] Photocopier Technician ID Kendra Mary montez 09/26/2024 9:35 AM EDT [facility] ACT Device ID [id number] 09/26/2024 9:35 AM EDT [facility] Comment 09/26/2024 9:35 AM EDT [facility] Comment: ACT performed by [...] UNSOLICITED RESULTS Final Result Performing Organization Address City/[facility] Co de Phone Number [facility] [address] LAB [address] [place] [address] * (ABNORMAL) POCT creatinine (09/18/2024 8:24 AM EDT) Only the most recent of2 resultswithin the time period is included. Pathologist [facility] Creatinine, Point of Care 1.2(H) 0.6 - 1.1 mg/dL 09/18/2024 8:28 AM EDT [facility] POCT eGFR 48 mL/min/1. 73m*2 09/18/2024 8:28 AM EDT [facility] Photocopier Technician ID Rosangela Gallegos 09/18/2024 8:28 AM EDT HEALTHCARE LAB Device ID [id number] 09/18/2024 8:28 AM EDT [facility] Comment 09/18/2024 8:28 AM EDT [facility] Comment:Testing performed on i-STAT at the point of care. Reported eGFRcr in mL/min/1.73m2 is based the CKD-EPI 2020 equation that does not use a race coefficient. Blood Venous blood specimen / Unknown 09/18/2024 8:24 AM EDT 09/18/2024 8:28 AM EDT us Miguel Lamb MD LAB POINT OF CARE TE ST DOCKED DEVICE UNSOLICITED RESULTS Final Result Performing Organization Address City/[facility]/ZIP Co de Phone Number [facility] [address] LAB [address] [place] [address] * (ABNORMAL) CBC and differential (09/18/2024 8:20 AM EDT) WBC Count 8.79 3.70 - 10.30 10*3/uL LAB HEMATOLOGY METHOD 09/18/2024 8:38 AM EDT [facility] RBC Count 2.65(L) 3.90 - 5.20 10*6/uL LAB HEMATOLOGY METHOD 09/18/2024 8:38 AM EDT [facility] HGB 7.2(L) 11.2 - 15.7 g/dL LAB HEMATOLOGY METHOD 09/18/2024 8:38 AM EDT [facility] HCT 24.6(L) 34.0 - 45.0 % LAB HEMATOLOGY METHOD 09/18/2024 8:38 AM EDT [facility] Platelet Count 358 155 - 369 10*3/uL LAB HEMATOLOGY METHOD 09/18/2024 8:38 AM EDT [facility] MCV 93 79 - 98 fL LAB HEMATOLOGY METHOD 09/18/2024 8:38 AM EDT [facility] MCH 27.2 26.0 - 32.0 pg LAB HEMATOLOGY METHOD 09/18/2024 8:38 AM EDT [facility] MCHC 29.3(L) 30.7 - 35.5 g/dL LAB HEMATOLOGY METHOD 09/18/2024 8:38 AM EDT [facility] RDW 16.0(H) 11.5 - 14.5 % LAB HEMATOLOGY METHOD 09/18/2024 8:38 AM EDT [facility] MPV 10.4 8.8 - 12.5 fL LAB HEMATOLOGY METHOD 09/18/2024 8:38 AM EDT [facility] nRBC 0.0 <=0.0 per 100 WBCs LAB HEMATOLOGY METHOD 09/18/2024 8:38 AM EDT [facility] Differential Type Automated LAB HEMATOLOGY METHOD 09/18/2024 8:38 AM EDT [facility] Neutrophils % 90 % LAB HEMATOLOGY METHOD 09/18/2024 8:38 AM EDT [facility] Lymphocytes % 6 % LAB HEMATOLOGY METHOD 09/18/2024 8:38 AM EDT [facility] Monocytes % 2 % LAB HEMATOLOGY METHOD 09/18/2024 8:38 AM EDT [facility] Eosinophils % 1 % LAB HEMATOLOGY METHOD 09/18/2024 8:38 AM EDT [facility] Basophils % 0 % LAB HEMATOLOGY METHOD 09/18/2024 8:38 AM EDT [facility] Immature Granulocytes % 1 % LAB HEMATOLOGY METHOD 09/18/2024 8:38 AM EDT [facility] Neutrophils Absolute 7.96(H) 1.60 - 6.10 10*3/uL LAB HEMATOLOGY METHOD 09/18/2024 8:38 AM EDT [facility] Lymphocytes Absolute 0.56(L) 1.20 - 3.90 10*3/uL LAB HEMATOLOGY METHOD 09/18/2024 8:38 AM EDT [facility] Monocytes Absolute 0.13(L) 0.30 - 0.90 10*3/uL LAB HEMATOLOGY METHOD 09/18/2024 8:38 AM EDT [facility] Eosinophils Absolute 0.07 0.00 - 0.50 10*3/uL LAB HEMATOLOGY METHOD 09/18/2024 8:38 AM EDT [facility] Basophils Absolute 0.02 0.00 - 0.10 10*3/uL LAB HEMATOLOGY METHOD 09/18/2024 8:38 AM EDT [facility] Immature Granulocytes Absolute 0.05 0.00 - 0.06 10*3/uL LAB HEMATOLOGY METHOD 09/18/2024 8:38 AM EDT [facility] Blood Venous blood specimen / Unknown Venipuncture / Unknown 09/18/2024 8:20 AM EDT 09/18/2024 8:26 AM EDT Narrative [facility] - 09/18/2024 8:38 AM EDT Therapeutic decision making should be based on absolute values, rather than percentages. us Miguel Lamb MD LAB BLOOD ORDERABLES Final Resu lt [facility] [address] [place] [address] * (ABNORMAL) Basic metabolic panel (09/18/2024 8:20 AM EDT) Only the most recent of3 resultswithin the time period is included. Glucose, Plasma 157(H) 74 - 99 mg/dL 09/18/2024 8:58 AM EDT [facility] BUN, Plasma 17 8 - 23 mg/dL 09/18/2024 8:58 AM EDT [facility] Creatinine, Plasma 1.05 0.60 - 1.10 mg/dL 09/18/2024 8:58 AM EDT [facility] BUN/Creatinine Ratio 16 09/18/2024 8:58 AM EDT [facility] Sodium, Plasma 138 136 - 145 mmol/L 09/18/2024 8:58 AM EDT [facility] Potassium, Plasma 4.5 3.6 - 4.9 mmol/L 09/18/2024 8:58 AM EDT [facility] Chloride, Plasma 100 97 - 107 mmol/L 09/18/2024 8:58 AM EDT [facility] CO2, Plasma 23 22 - 29 mmol/L 09/18/2024 8:58 AM EDT [facility] Anion Gap 15 6 - 16 mmol/L 09/18/2024 8:58 AM EDT [facility] Total Calcium, Plasma 9.4 8.9 - 10.2 mg/dL 09/18/2024 8:58 AM EDT [facility] eGFRcr 56.9 mL/min/1.7 3m*2 09/18/2024 8:58 AM EDT [facility] Comment:Reported eGFRcr in m L/min/1.73m2 is based the CKD-EPI 2020 equation that does not use a race coefficient. Blood Venous blood specimen / Unknown Venipuncture / Unknown 09/18/2024 8:20 AM EDT 09/18/2024 8:27 AM EDT us Miguel Lamb MD LAB BLOOD ORDERABLES Final Resu lt [facility] [address] [place] [address] * (ABNORMAL) N-Terminal Probnp, Plasma (08/31/2024 3:59 AM EDT) N-Terminal, PROBNP, Plasma 5,650(H) 0 - 899 pg/mL 08/31/2024 5:38 AM EDT [facility] Blood Venous blood specimen / Unknown Venipuncture / Unknown 08/31/2024 3:59 AM EDT 08/31/2024 4:36 AM EDT us Zuly M Gaspar FAMILY PRACTICE DOCTOR LAB BLOOD ORDERABLES Final R esult [facility] [address] [place] [address] * (ABNORMAL) CBC W/O Differential (08/31/2024 3:59 AM EDT) Only the most recent of2 resultswithin the time period is included. WBC Count 16.14(H) 3.70 - 10.30 10*3/uL LAB HEMATOLOGY METHOD 08/31/2024 4:45 AM EDT [facility] RBC Count 2.68(L) 3.90 - 5.20 10*6/uL LAB HEMATOLOGY METHOD 08/31/2024 4:45 AM EDT [facility] HGB 7.9(L) 11.2 - 15.7 g/dL LAB HEMATOLOGY METHOD 08/31/2024 4:45 AM EDT [facility] HCT 25.6(L) 34.0 - 45.0 % LAB HEMATOLOGY METHOD 08/31/2024 4:45 AM EDT [facility] Platelet Count 277 155 - 369 10*3/uL LAB HEMATOLOGY METHOD 08/31/2024 4:45 AM EDT [facility] MCV 96 79 - 98 fL LAB HEMATOLOGY METHOD 08/31/2024 4:45 AM EDT [facility] MCH 29.5 26.0 - 32.0 pg LAB HEMATOLOGY METHOD 08/31/2024 4:45 AM EDT [facility] MCHC 30.9 30.7 - 35.5 g/dL LAB HEMATOLOGY METHOD 08/31/2024 4:45 AM EDT [facility] RDW 15.0(H) 11.5 - 14.5 % LAB HEMATOLOGY METHOD 08/31/2024 4:45 AM EDT [facility] MPV 10.3 8.8 - 12.5 fL LAB HEMATOLOGY METHOD 08/31/2024 4:45 AM EDT [facility] nRBC 0.0 <=0.0 per 100 WBCs LAB HEMATOLOGY METHOD 08/31/2024 4:45 AM EDT [facility] Blood Venous blood specimen / Unknown Venipuncture / Unknown 08/31/2024 3:59 AM EDT 08/31/2024 4:29 AM EDT Zuly Gaspar FAMILY PRACTICE DOCTOR LAB BLOOD ORDERABLES Final R esult [facility] [address] [place] [address] * Magnesium, Plasma (08/31/2024 3:59 AM EDT) Magnesium, Plasma 2.2 1.9 - 2.4 mg/dL 08/31/2024 5:38 AM EDT [facility] Blood Venous blood specimen / Unknown Venipuncture / Unknown 08/31/2024 3:59 AM EDT 08/31/2024 4:36 AM EDT Zuly Gaspar APRN LAB BLOOD ORDERABLES Final R esult Performing Organization Address [facility] Co de Phone Number [facility] [address] [place] [address] * ECG Adult (08/30/2024 6:02 PM EDT) EKG DIAGNOSIS CLASS Abnormal MUSE ECG Ventricular Rate 99 BPM MUSE ECG Atrial Rate 99 BPM MUSE ECG AL Interval 142 ms MUSE ECG QRSD Interval 86 ms MUSE ECG QT Interval 368 ms MUSE ECG QTC Interval 472 ms MUSE ECG P [place] 66 degrees MUSE ECG R [place] 16 degrees MUSE ECG T Wave [place] 59 degrees MUSE ECG Diagnosis Normal sinus rhythm MUSE ECG Diagnosis Nonspecific ST and T wave abnormality MUSE ECG Diagnosis MUSE ECG Diagnosis MUSE ECG Diagnosis Confirmed by Dusty Petit ([id number]) on 08/31/2024 5:05:48 PM MUSE ECG 08/30/2024 6:02 PM EDT 08/31/2024 5:05 PM EDT us Miguel Lamb MD ECG ORDERABLES Final Result Performing Organization Address City/[facility]/ZIP Co de Phone Number MUSE ECG * PERC CORONARY INTERVENTION (08/30/2024 5:38 PM EDT) Anatomical Region Laterality Modality Other Narrative 09/03/2024 2:51 PM EDT Conclusion: 1. 90% ostial left main stenosis s/p successful PCI with placement of a 4.5 x 15 mm Pickens Manjit drug-eluting stent (overlapping with previously placed stent distally and 1-2 mm of stent extending in the aorta) 2. 70% heavily calcified distal left main severe in-stent re-stenosis s/p balloon angioplasty with a 3.5 NC balloon 3. 90% ostial RCA stenosis s/p successful PCI with placement of a 3.0 x 12 mm and 3.0 x 18 mm Pickens Manjit drug-eluting stent. Proximal-mid stent post-dilated to [...] to direct stent. We then advanced a Pickens Manjit 4.5 x 12 mm drug-eluting stent [...] 12 mm and 3.0 x 18 mm Pickens Manjit drug eluting stents in the proximal [...] The patient was transferred back to the casting house laborer holding area in good condition. [...] Phase: Resting Aortic AO: 151/63 (103) mmHg Migeul Lamb MD CV CARDIAC CATH PROCEDURES Sheyla caban Result * (ABNORMAL) Hemoglobin A1c (07/07/2019 2:34 [...] <6.0% Children and Adolescents <7.5% . Source: [place] [employer]. Standards of medical care in diabetes, 2017. Diabetes Care.2017:40 (suppl 1):S1-S135. . HbA1c assay performed by an ion-exchange chromatography method that is certified traceable to the DCCT. 07/07/2019 2:34 AM EDT 07/07/2019 2:46 AM EDT Historical Provider LAB BLOOD ORDERABLES Sheyla l Result SUNQUEST from Last 3 Months or Most Recently Relevant to Health Maintenance Insurance [facility]M MEDICARE Advance Directives * Full [...] updated to appropriate status: Yes Care Teams Certified Travel Counselor Relationship Specialty Start Date End Date Mustapha James MD [address] [place] [id number] PCP - General 09/05/20 Miguel Lamb MD [address] [place] [phone] Referring Physician Interventional Cardiology 08/16/24
--- OUTSIDE RECORDS SUMMARY | 2024-11-15 09:00 | XMS_ITS | Clinical Summary ---
Author Organization [facility] Address [address] [place] [address] Care Team Providers Care Investigation Specialist Name Role Phone Mustapha James MD [...] 180 MG tabletIndications :Coronary artery disease involving [place] coronary artery of [place] heart without angina pectoris Take 1 tablet [...] capsule 025 Active nystatin-triamcin olone (MYCOLOG II) 277840-5.1 UNIT/GM-% creamIndications: Intertrigo Apply 1 Application topically to the appropriate area as directed 2 (Two) Times a Day. 60 g 025 Active nitroglycerin (NITROSTAT) 0.4 MG SL tabletIndications :Coronary artery disease involving [place] coronary artery of [place] heart without angina pectoris TAKE ONE TABLET BY MOUTH UNDER TONGUE NEEDED FOR PAIN DIRECTED 25 tablet 025 Active coenzyme Q10 50 MG capsule capsule Take by mouth Daily. Active metoprolol succinate XL (TOPROL-XL) 50 MG 24 hr tabletIndications :Coronary artery disease involving [place] coronary artery of [place] heart without angina pectoris Take 1.5 tablets by mouth Daily. 45 tablet 025 Active Iron, Ferrous Sulfate, 325 (65 Fe) MG tabletIndications :Coronary artery disease involving [place] coronary artery of [place] heart without angina pectoris,Other iron deficiency anemia [...] 025 Active vitamin D (ERGOCALCIFEROL) 1.25 MG (28808 UT) capsule capsule TAKE 1 CAPSULE BY [...] 2024 Discontinued vitamin D (ERGOCALCIFEROL) 1.25 MG (39291 UT) capsule capsule TAKE 1 CAPSULE BY [...] radiculopathy 08/21/2021 Coronary artery disease invo lving bay mills coronary artery of [place] heart without angina pectoris 08/21/2021 Overview (01/24/2024): Sock Boarder Dr. Omar Chavez Assessment & Plan (01/24/2024 3:35 PM EDT): Condition is stable. Continue regular follow-up with [facility] cardiology. Regarding her LDL goal of less than 55 this is only achievable for the patient with combination therapy. She will continue Repatha. I have prescribed bempedoic acid although anticipate this will need a prior authorization and likely be cost prohibitive. Consideration could also be given to Levidhivio which patient should discuss with her social service assistant. Lipid panel will be ordered today Pulmonary emphysema 08/21/2021 Overview (08/21/2021): Men'S Leather Dress Belt Maker Dr. Ally James Acquired hypothyroidism 08/21/2021 Assessment [...] Type Department Care Team Description 11/02/2024 Refill [facility] [address] [phone] Mustapha James MD Failed back syndrome of lumbar spine; Spondylosis of lumbar region without myelopathy or radiculopathy; Arthritis of lumbar spine 10/31/2024 Refill [facility] [address] [place] [address] Mustapha James MD 10/24/2024 Refill [facility] [address] [place] [address] Mustapha James MD 10/18/2024 Telephone [facility] [address] [place] [address] Mustapha James MD Advice Only 10/11/2024 Telephone [facility] [address] [place] [address] Mustapha James MD Fluid Retention 09/27/2024 Refill [facility] [address] [place] [address] Mustapha James MD Failed back syndrome of lumbar spine; Spondylosis of lumbar region without myelopathy or radiculopathy; Arthritis of lumbar spine; Generalized anxiety disorder 09/27/2024 Telephone [facility] [address] [place] [address] Mustapha James MD OVERNIGHT STUDY 09/26/2024 Telephone [facility] [address] [place] [address] Mustapha James MD Advice Only 09/11/2024 Telephone [facility] [address] [place] [address] Mustapha James MD 09/10/2024 Results Follow-Up [facility] [address] [place] [address] Mustapha James MD 09/07/2024 2:00 PM EDT Office Visit [facility] [address] [place] [address] Mustapha James MD Anemia due to blood loss (Primary Dx); snf (current) use of opiate analgesic; Long-term current use of benzodiazepine; Coronary artery disease involving bay mills coronary artery of [place] heart without angina pectoris; Moderate aortic valve stenosis; Chronic pain syndrome; Failed back syndrome of lumbar spine; Panlobular emphysema; Angina decubitus 09/07/2024 Travel 08/30/2024 Refill [facility] [address] [place] [address] Mustapha James MD Failed back syndrome of lumbar spine; Spondylosis of lumbar region without myelopathy or radiculopathy; Arthritis of lumbar spine 08/16/2024 Telephone [facility] [address] [place] [address] Mustapha James MD Advice Only 08/16/2024 Telephone [facility] [address] [place] [address] Radha Aguayo, RN from Last 3 Months [...] 11/26/2024 1:15 PM EDT Appointment [facility] [place] [address] [place] [address] 12/06/2024 2:00 PM EDT Office Visit [facility] [address] [place] [address] Chirag Mckee MD [address] [place] [address] 12/27/2024 2:00 PM EDT Office Visit [facility] [address] [place] [address] Mustapha James MD [address] [place] [address] Health Maintenance Due Date Last [...] Priority Date/Time Associated Diagnosis Comments SCANNED - LABS 11/14/2024 SCANNED - LABS 11/14/2024 SCANNED - IMAGING 11/08/2024 SCANNED - LABS 11/05/2024 SCANNED - LABS 11/05/2024 SCANNED - LABS 11/05/2024 FERRITIN Routine 09/07/2024 2:42 PM EDT Anemia due to blood loss IRON PROFILE Routine 09/07/2024 2:42 PM EDT Anemia due to blood loss CBC (NO DIFF) Routine 09/07/2024 2:42 PM EDT Anemia due to blood loss SCANNED - IMAGING 08/21/2024 SCANNED - IMAGING 08/16/2024 POC ALBUMIN/CREATININE RATIO Routine 06/08/2024 1:03 PM EST Essential hypertension CT CHEST WO CONTRAST DIAGNOSTIC Routine 02/14/2024 3:12 PM EDT NSCLC of right lung SCANNED - MAMMO 05/19/2023 HEMOGLOBIN A1C Routine 06/03/2022 2:35 PM EST Paresthesia and pain of both upper extremities Prediabetes from Last 3 Months or Most Recently Relevant to Health Maintenance Results * LABS SCANNED (11/14/2024) Only the most recent of5 resultswithin the time period is included. Mustapha James MD LAB BLOOD ORDERABLES Fin al Result * IMAGING SCANNED (11/08/2024) Only the most recent of3 resultswithin the time period is included. Anatomical Region Laterality Modality Radiographic Chery ging Mustapha James MD IMG DIAGNOSTIC IMAGING O RDERABLES Final Result * (ABNORMAL) Iron Profile (09/07/2024 2:42 PM EDT) Pathologist [facility] TIBC 454(H) 250 - 450 ug/dL [facility] UIBC 431(H) 118 - 369 ug/dL [facility] Iron 23(L) 27 - 139 ug/dL [facility] Iron Saturation 5(L) 15 - 55 % [facility] Blood 09/07/2024 2:42 PM EDT 09/07/2024 [facility] (AMBULATORY) - 09/08/2024 8:11 AM EDT Performed at: - [address] [id number] Headlight Assembler: Jason Bullock PhD, Phone: [phone] Patient Fasting: Y us Mustapha James MD LAB BLOOD ORDERABLES Fin al Result [facility] (AMBULATORY) [address] [place] [address], [facility] [address] [place] [address], * (ABNORMAL) CBC (No Diff) (09/07/2024 2:42 PM EDT) [facility] WBC 10.1 3.4 - 10.8 x10E3/uL [facility] [...] 09/07/2024 2:42 PM EDT 09/07/2024 Narrative [facility] (AMBULATORY) - 09/08/2024 8:11 AM EDT Performed at: - [address] [id number] Headlight Assembler: Jason Bullock PhD, Phone: [phone] Patient Fasting: Y Mustapha James MD LAB BLOOD ORDERABLES Fin al Result Performing Organization Address [facility] Co de Phone Number [facility] (AMBULATORY) [address] [place] [address], [facility] [address] [place] [address], * (ABNORMAL) Ferritin (09/07/2024 2:42 PM EDT) Pathologist [facility] Ferritin 14(L) 15 - 150 ng/mL [facility] Blood 09/07/2024 2:42 PM EDT 09/07/2024 Narrative [facility] (AMBULATORY) - 09/08/2024 8:11 AM EDT Performed at: [address] [id number] Headlight Assembler: Jason Bullock PhD, Phone: [phone] Patient Fasting: Y Mustapha James MD LAB BLOOD ORDERABLES Fin al Result Performing Organization Address [facility] de Phone Number [facility] ([facility]) [address] [place] [address], [facility] [address] [place], [place] [id number], * (ABNORMAL) Albumin/Creatinine Ratio Urine (06/08/2024 1:03 PM EST) POC ALBUMIN, URINE 10 mg/L POC CREATININE, URINE 10 mg/dL POC Urine Albumin Creatinine Ratio 30-300 <30 Comment:abnormal Lot Number [id number] Expiration Date 03/24/2025 Urine 06/08/2024 1:03 PM EST Mustapha James MD POINT OF CARE TEST ORDER LUCERO Final Result * CT Chest Without Contrast Diagnostic (02/14/2024 3:12 PM EDT) Anatomical Region Laterality Modality Chest N/A Computed Tomogra phy 02/15/2024 10:2 7 PM EDT Impressions 02/15/2024 10:36 PM EDT Impression: 1. Stable size of spiculated 3.2 cm right upper lobe mass with mild increased surrounding groundglass opacities which may relate to posttreatment related findings. 2. No intrathoracic adenopathy. 3. Aortic valve calcifications and extensive coronary artery calcifications.. 4. Dilated common bile duct measuring 10 mm partially imaged similar to prior studies of uncertain etiology, correlation with LFTs may be helpful, if further concern consider dedicated CT abdomen and pelvis. Electronically Signed: Milan Herzog MD 02/15/2024 10:36 PM EDT Workstation ID: [id number] Narrative 02/15/2024 10:[address] CHEST WO CONTRAST DIAGNOSTIC Date of Exam: 02/14/2024 2:52 PM EDT Indication: hx NSCLC of RUL lung s/p CyberKnife SBRT 04/14/2023, ongoing surveillance. Comparison: CT chest without contrast 08/18/2023 Technique: Axial CT images were obtained of the chest without contrast administration. Reconstructed coronal and sagittal images were also obtained. Automated exposure control and iterative construction methods were used. Findings: The noncontrast soft tissues of the visualized lower neck are without acute abnormality. Heart size is normal. Extensive coronary artery calcifications are present. Aortic valve calcifications noted. Mildly dilated main pulmonary measuring 3.4 cm. Negative for mediastinal or hilar adenopathy. No axillary adenopathy. No pericardial effusion or pleural effusion. Trachea and mainstem bronchi are patent. Within the right upper lobe redemonstration of the spiculated mass measuring 3.2 x 2.1 cm not significantly changed in size from prior study when accounting for differences in measurement. There is mild increase surrounding groundglass opacity which may relate to posttreatment findings. Mass again extends to abut the right major fissure along its posterior aspect. There are few scattered peripheral groundglass nodules bilaterally which are similar to prior study. No new or enlarging nodule. No findings of pneumonia. The upper abdomen demonstrates normal noncontrast visualized portions of the liver, spleen, adrenal glands, and pancreas. There is dilatation of the common bile duct measuring up to 10 mm which appears similar to prior study (/113). No free fluid in the upper abdomen. No aggressive osseous lesion or acute fracture. Lower cervical ACDF partially imaged extending to the C7 level. Lumbar fixation hardware partially imaged. Procedure Note Mouser, Milan Diaz MD - 02/15/2024 CT CHEST WO CONTRAST DIAGNOSTIC Date of Exam: 02/14/2024 2:52 PM EDT Indication: hx NSCLC of RUL lung s/p CyberKnife SBRT 04/14/2023, ongoingsurveillance. Comparison: CT chest without contrast 08/18/2023 Technique: Axial CT images were obtained of the chest without contrastadministration. Reconstructed coronal and sagittal images were alsoobtained. Automated exposure control and iterative construction methodswere used. Findings: The noncontrast soft tissues of the visualized lower neck are withoutacute abnormality. Heart size is normal. Extensive coronary arterycalcifications are present. Aortic valve calcifications noted. Mildlydilated main pulmonary measuring 3.4 cm. Negative for mediastinal or hilar adenopathy. No axillary adenopathy. Nopericardial effusion or pleural effusion. Trachea and mainstem bronchi are patent. Within the right upper loberedemonstration of the spiculated mass measuring 3.2 x 2.1 cm notsignificantly changed in size from prior study when accounting fordifferences in measurement. There is mild increase surrounding groundglass opacity which may relate to posttreatmentfindings. Mass again extends to abut the right major fissure along itsposterior aspect. There are few scattered peripheral groundglass nodulesbilaterally which are similar to prior study. No new or enlarging nodule. No findings of pneumonia. The upper abdomen demonstrates normal noncontrast visualized portions ofthe liver, spleen, adrenal glands, and pancreas. There is dilatation ofthe common bile duct measuring up to 10 mm which appears similar to priorstudy (/113). No free fluid in the upper abdomen. No aggressive osseous lesion or acute fracture. Lowercervical ACDF partially imaged extending to the C7 level. Lumbar fixationhardware partially imaged. IMPRESSION: Impression: 1. Stable size of spiculated 3.2 cm right upper lobe mass with mildincreased surrounding groundglass opacities which may relate toposttreatment related findings. 2. No intrathoracic adenopathy. 3. Aortic valve calcifications and extensive coronary arterycalcifications.. 4. Dilated common bile duct measuring 10 mm partially imaged similar toprior studies of uncertain etiology, correlation with LFTs may be helpful,if further concern consider dedicated CT abdomen and pelvis. Electronically Signed: Milan Herzog MD 02/15/2024 10:36 PM EDT Workstation ID: [id number] Derik Conn SUPPORT MANAGER IMG CT ORDERABLES Final R esult * SCANNED - MAMMO (05/19/2023) Anatomical Region Laterality Modality Other Mustapha James MD CHART REVIEW TABS Fin al Result * (ABNORMAL) Hemoglobin A1c (06/03/2022 2:35 PM EST) Hemoglobin A1C 5.7(H) 4.8 - 5.6 % [facility] Comment: Prediabetes: 5.7 - 6.4 Diabetes: >6.4 Glycemic control for adults with diabetes: <7.0 Blood 06/03/2022 2:35 PM EST 06/03/2022 Narrative [facility] (AMBULATORY) - 06/04/2022 10:36 AM EST Performed at: - [address] [id number] Headlight Assembler: Jason Bullock PhD, Phone: [phone] Mustapha James MD LAB BLOOD ORDERABLES Fin al Result [facility] (AMBULATORY) [address] [place] [address], [facility] [address] [place] [address], from Last 3 Months or Most Recently Relevant to Health Maintenance Insurance [employer] PPO Advance Directives Documents on File Type Date Recorded Patient Rope Tier Expl anation POWER OF DISTRIBUTION SYSTEM OPERATOR - SCAN 09/13/2022 11:26 AM POWER OF DISTRIBUTION SYSTEM OPERATOR, [facility], 02/05/2022 Care Teams Investigation Specialist Relationship Specialty Start Date End Date Mustapha James MD [address] [facility] [place] [address] PCP - General Family Medicine 01/02/24
--- OUTSIDE RECORDS SUMMARY | 2024-11-15 09:00 | XMS_ITS | Encounter Summary ---
Author Organization [employer] ([place], [place], [place], [place]) Address [address] [place] [address] Care Team Providers Care Maintenance Electrician Name Role Phone Unavailable Primary Care Provider Unavailabl e Encounter Details Date Type Department Care Team (Late st Contact Info) Description 03/14/2019 Transcribed Document [facility] Radiology [address] [place] [address] Martinez Miller MD [address] [place] [address] Social History Tobacco Use Types Packs/Day Years [...] skin and nails, Oral, Daily, 0 Refill(s) [place] 7.5 mg-325 mg oral tablet: 1 [...] Medication hair, skin and nails, Oral, Daily [place] 7.5 mg-325 mg oral tablet 1 [...] Problems Cervical spinal stenosis / SNOMED CT 155539977 / Confirmed Smoker / SNOMED CT 780607202 / Confirmed Sinusitis / SNOMED CT 41354107 / Confirmed Seasonal allergies / SNOMED CT 661544549 / Confirmed Restless leg / SNOMED CT 60881407 / Confirmed Colon polyps / SNOMED CT 490414375 / Confirmed Pneumonia / SNOMED CT 455488591 / Confirmed Peripheral vascular disease / SNOMED CT 8223021444 / Confirmed Peptic ulcer / SNOMED CT 06317716 / Confirmed Osteoporosis / SNOMED CT 989319310 / Confirmed Neuropathy, R arm / SNOMED CT 8020429979 / Confirmed Migraines / SNOMED CT 60807291 / Confirmed Skin cancer / SNOMED CT 5333977539 / Confirmed Hypertension / SNOMED CT 7582358351 / Confirmed Hyperlipidemia / SNOMED CT 14880664 / Confirmed Elevated cholesterol / SNOMED CT 64903579 / Confirmed Hiatal hernia / SNOMED CT 894341873 / Confirmed Hemorrhoids / SNOMED CT 176565793 / Confirmed H/O: TIA / SNOMED CT 843286503 / Confirmed GERD (gastroesophageal reflux disease) / SNOMED CT 580281918 / Confirmed Gastritis / SNOMED CT 7105950 / Confirmed Fibromyalgia / SNOMED CT 22562638 / Confirmed Fibroids / SNOMED CT 130140645 / Confirmed Endometriosis / SNOMED CT 0158661752 / Confirmed Diverticulitis / SNOMED CT 804422837 / Confirmed Sinus problem / SNOMED CT 1633901091 / Confirmed Known medical problems / SNOMED CT 411721520 / Confirmed white spots on MRI Known medical problems / SNOMED CT 367010029 / Confirmed anti nuclear A and A antibodies Constipation / SNOMED CT 00456797 / Confirmed COPD (chronic obstructive pulmonary disease) / SNOMED CT 27665976 / Confirmed Chronic cough / SNOMED CT 611480502 / Confirmed Chronic constipation / SNOMED CT 444340407 / Confirmed Stroke, possible / SNOMED CT 452341579 / Confirmed Bursitis / SNOMED CT 993177107 / Confirmed Bronchitis / SNOMED CT 11850806 / Confirmed Back pain / SNOMED CT 289535005 / Confirmed At risk for sleep apnea / IMO 00202178 / Confirmed Arthritis / SNOMED CT 8293011 / Confirmed Anemia / SNOMED CT 891279874 / Confirmed Allergic rhinitis / SNOMED CT 019403087 / Confirmed, Active Problems (40) Allergic rhinitis [...] EST Height Source Measured Height Entry Format [place] Height/Length, ROMANSH (ft) 0 ft Height/Length ROMANSH 63 Inch CLINICALHEIGHT 160.02 cm [place] Body Weight 52 kg Weight Source Standing scale Weight Entry Format [place] Weight Croatian lb 189.1 lb CLINICALWEIGHT 85.95 kg Body [...] LLE weakness, uses cane. Integumentary: Warm, Dry, [place]. Neurologic: Alert, Oriented. Psychiatric: Cooperative, Appropriate mood [...]
--- OUTSIDE RECORDS SUMMARY | 2024-11-15 09:00 | XMS_ITS | Encounter Summary ---
Author Organization [employer] ([place], [place], [place], [place]) Address [address] [place] [address] Care Team Providers Care Patch Setter Name Role Phone Unavailable Primary Care Provider Unavailabl e Encounter Details Date Type Department Care Team (Late st Contact Info) Description 02/12/2019 Transcribed Document [facility] [place] [address] ProviderRegina MD [address] [place] [address] Social History Tobacco Use Types Packs/Day [...] MD - 02/12/2019 5:22 PM CDT [facility] [place] [address] THOMAS GTZ SRIRAM :1955 Visit Time:02/12/2019 Your Visit Summary Your Care Team Admitting Physician - TONY PEÑA MD-SUR Attending Physician - TONY PEÑA MD-SUR Primary Care Physician - JACKIE BABIN MD-FAM Referring Physician - JACKIE BABIN MD-FAM PHY, NOT LISTED Your Diagnosis Atherosclerosis of kot[place] arteries of extremities with intermittent claudication, unspecified extremity, Atherosclerosis of [place]ot[place] arteries of extremities with intermittent claudication, unspecified [...] Appointment has been made with [facility]. Where: [address] [place], [place] [phone]- [phone] Medications What How Much When Instructions Next Dose acetaminophen-hydrocodone ([place] 7.5 mg-325 mg oral tablet) 1 Tablet(s) [...] Document Reviewed: 05/14/2011 ExitCare?? Patient Information ??2013 [employer]. Angiogram, Care After This sheet gives [...] and water are not available, use hand automobile and property underwriter. ? Change your dressing as told by [...] contrast dye from your body. ??? Take jiru-mjo-ejxhzge and prescription medicines only as told by [...] 10/28/2005 Document Revised: 03/16/2017 Document Reviewed: 03/16/2017 [employer] Patient Education ?? 2019 [employer]. Moderate Conscious Sedation, Adult, Care After These [...] you are awake and alert. ??? Take rvyb-rkd-ifcegrc and prescription medicines only as told by [...] 01/30/2014 Document Revised: 09/13/2016 Document Reviewed: 07/31/2016 [employer] Patient Education ?? 2019 [employer]. clopidogrel (kloe PID oh grel) Plavix What [...] may report side effects to FDA at 0-990-YGY-2904. What other drugs will affect clopidogrel? Certain other medicines may increase your risk of bleeding, including aspirin. Avoid taking aspirin unless your doctor tells you to. Tell your doctor about all your other medicines, especially: ?? any other medicines to treat or prevent blood clots; ?? a stomach acid ropewalk rope maker such as omeprazole, Nexium, or Prilosec; ?? an antidepressant; ?? an opioid medication; ?? a blood thinner--warfarin, Coumadin, Jantoven; or ?? NSAIDs (nonsteroidal anti-inflammatory drugs)--ibuprofen (Advil, Motrin), naproxen (Aleve), celecoxib, diclofenac, indomethacin, meloxicam, and others. This list is not complete. Other drugs may affect clopidogrel, including prescription and sjza-gdg-cjfcuij medicines, vitamins, and herbal products. Not all [...] to ensure that the information provided by [employer] ('[employer]') is accurate, up-to-date, and complete, but no guarantee is made to that effect. Drug information contained herein may be time sensitive. [employer] information has been compiled for use by healthcare practitioners and consumers in the [place] and therefore [employer] does not warrant that uses outside of the [place] are appropriate, unless specifically indicated otherwise. [employer]s drug information does not endorse drugs, diagnose patients or recommend therapy. [employer] drug information is an informational resource designed [...] with your doctor, nurse or pharmacist. Copyright 6293-7527 [employer]. Version: 15.. Revision Date: 02/13/2018. Emergency Awareness [...] Assistance with quitting is available by contacting 0-210-FBBW-NOW. This is a free resource providing counseling, [...] was given the opportunity to ask questions. Patient/Denitrator Operator Name: Patient/Denitrator Operator Signature: Relationship to Patient: Clinician/Hospital Denitrator Operator Signature: Date: Electronically signed by [facility], [facility] Conversion Automobile Accessories Salesperson Andrew at 08/13/2022 11:17 AM CDT documented in this encounter Plan of Treatment Not on file documented as of this encounter Visit Diagnoses Not on filedocumented in this encounter
--- OUTSIDE RECORDS SUMMARY | 2024-11-15 09:00 | XMS_ITS | Encounter Summary ---
Author Organization [employer] ([place], [place], [place], [place]) Address [address] [place] [address] Care Team Providers Care Progress Worker Name Role Phone Unavailable Primary Care Provider Unavailabl e Encounter Details Date Type Department Care Team (Late st Contact Info) Description 02/12/2019 Transcribed Document [facility] [place] Family Medicine [facility] [place] [address] ProviderRegina MD [facility] [place] [address] Social History Tobacco Use Types [...] Regina ProviderMD - 02/12/2019 2:12 PM CDT [facility] Main OR Preop Summary Primary Physician: TONY PEÑA MD-SUR Finalized Date/Time: 02/12/19 18:38:33 Pt. Name: THOMAS GTZ SRIRAM Reynolds/Sex: 1955 Female Med Rec #: [id number] Physician: TONY PEÑA MD-SUR Financial #: [id number] Pt. Type: O Room/Bed: HIS/11 Admit/Disch: 02/12/19 09:27:00 - 02/12/19 18:10:00 Institution: [facility] PreOp Case Times Entry 1 In Preop 02/12/19 09:40:00 Ready for Holding n/a Room Patient Ready for 02/12/19 11:13:00 Surgery Patient Out of Preop 02/12/19 13:49:00 Patient Out of n/a Holding Room Last Modified By: SHAHLA GOODMAN RN 02/12/19 18:38:24 Finalized By: SHAHLA GOODMAN, RN Document Signatures Signed By: SHAHLA GOODMAN RN 02/12/19 18:38 Electronically signed by Mickey [facility] Conversion Condenser Setter Cerner at 08/13/2022 11:16 AM CDT documented in this encounter Plan of Treatment Not on file documented as of this encounter Visit Diagnoses Not on filedocumented in this encounter
--- OUTSIDE RECORDS SUMMARY | 2024-11-15 09:00 | XMS_ITS | Clinical Summary ---
Author Organization [employer] ([place], [place], [place], [place]) Address [address] [place] [address] Care Team Providers Care Aircraft Skin Burnisher Name Role Phone Unavailable Primary Care Provider [...] Date Mathew rded Speak language other than Croatian at home Not on file 05/13/2023 Want [...]
--- OUTSIDE RECORDS SUMMARY | 2024-11-15 09:00 | XMS_ITS | Encounter Summary ---
Author Organization [employer] ([place], [place], [place], [place]) Address [address] [place] [address] Care Team Providers Care Forest Technology Professor Name Role Phone Unavailable Primary Care Provider Unavailabl e Encounter Details Date Type Department Care Team (Late st Contact Info) Description 02/12/2019 Transcribed Document [facility] [place] [facility] [place] [address] ProviderRegina MD [address] [place] [address] Social History Tobacco Use Types Packs/Day [...] 02/12/2019 15:39 EDT Electronically signed by Mickey [facility] Conversion Orthopaedic Physician Assistant Cerner at 08/13/2022 11:19 AM CDT documented in this encounter Plan of Treatment Not on file documented as of this encounter Visit Diagnoses Not on filedocumented in this encounter
--- OUTSIDE RECORDS SUMMARY | 2024-11-15 09:00 | XMS_ITS | Encounter Summary ---
Author Organization [employer] ([place], [place], [place], [place]) Address [address] [place] [address] Care Team Providers Care Driveway Attendant Name Role Phone Unavailable Primary Care Provider Unavailabl e Encounter Details Date Type Department Care Team (Late st Contact Info) Description 03/14/2019 Transcribed Document [facility] Radiology [address] [place] [address] Martinez Miller MD [address] [facility] [place] [address] Social History Tobacco Use Types Packs/Day Years [...] allow for placement and advancement of a 6-Rwandan sheath. 3. Catheter placement within the aorta. 4. Aortography demonstrating patency of bilateral common iliac artery stents. 5. Inability to access the occluded left superficial femoral artery through an antegrade fashion. 6. Successful recanalization of occluded superficial femoral artery through pedal access and placement of a 5 x170 LifeStent. OPERATIVE DESCRIPTION: The patient was taken back to the crime lab analyst and placed in supine position. Following IV [...] Attempts to advance a radio to peripheral 6-Rwandan sheath was performed, fortunately successful. This got [...] successfully with a micropuncture wire. A low-profile 6-Rwandan sheath was placed. Left lower extremity angiogram [...] Recovery in stable condition. No immediate complications. /[id number] Martinez Miller MD NNA/AQ / NNA / MODL /[id number] documented in this encounter Plan of Treatment Not on file documented as of this encounter Visit Diagnoses Not on filedocumented in this encounter
--- OUTSIDE RECORDS SUMMARY | 2024-11-15 09:00 | XMS_ITS | Encounter Summary ---
Author Organization [employer] ([place], [place], [place], [place]) Address [address] [place] [address] Care Team Providers Care Physical Director Name Role Phone Unavailable Primary Care Provider Unavailabl e Encounter Details Date Type Department Care Team (Late st Contact Info) Description 02/12/2019 Transcribed Document [facility] Radiology 1 [place] [address] Martinez Miller MD [address] [facility] [place] [address] Social History Tobacco Use Types Packs/Day Years [...] with large thigh collaterals with reconstitution of nojjy-rba-cfwv popliteal artery. 3. Recanalization of occluded right common iliac artery and placement of an 8 x 38 LifeStream within the proximal right common with a kissing 8 x 27 left common iliac artery stent. 4. Distal right common iliac artery was treated with an 8 x 38 stent, and right external iliac artery occlusion was treated with a 7 x 39 Wheatland VBX. OPERATIVE DESCRIPTION: The patient was taken back to the operating room, placed in a supine on the operating room table. Following IV sedation, bilateral groins were widely prepped and draped in a standard sterile fashion. Time-out was taken. Under ultrasound guidance, left common femoral artery was accessed with a Micropuncture needle. A 5-Zimbabwean sheath was placed. Flush catheter was advanced [...] with snare technique was used and a 7-Zimbabwean sheath was advanced into the red cliff aorta from the right femoral artery to [...] was treated with a 7 x 39 Wheatland VBX stent. Excellent results were achieved upon completion. Normal pulsatile flow was present within the right common femoral artery. Mynx closure device was used bilaterally. The patient was then taken back to Recovery in stable condition. No complications. /[id number] MD FARHAN NguyenA/BRIANNA / NNA / MODL /[id number] documented in this encounter Plan of Treatment Not on file documented as of this encounter Visit Diagnoses Not on filedocumented in this encounter
--- OUTSIDE RECORDS SUMMARY | 2024-11-15 09:00 | XMS_ITS | Encounter Summary ---
Author Organization [employer] ([place], [place], [place], [place]) Address [address] [place] [address] Care Team Providers Care Frog Catcher Name Role Phone Unavailable Primary Care Provider Unavailabl e Encounter Details Date Type Department Care Team (Late st Contact Info) Description 03/14/2019 Transcribed Document [facility] [place] Family Medicine [facility] [place] [address] ProviderRegina MD [address] [place] [address] Social History Tobacco Use Types Packs/Day [...] Regina Henley MD - 03/14/2019 4:22 PM PAYROLL BENEFITS CLERK [facility] [place] [address] THOMAS GTZ SRIRAM :1955 Visit Time:03/14/2019 Your Visit Summary Your Care Team Admitting Physician - TONY PEÑA MD-SUR Attending Physician - TONY PEÑA MD-SUR Primary Care Physician - JACKIE BABIN MD-FAM Referring Physician - JACKIE BABIN MD-FAM PHY, NONE Your Diagnosis Atherosclerosis of [place] arteries of extremities with intermittent claudication, unspecified extremity, Atherosclerosis of [place] arteries of extremities with intermittent claudication, unspecified [...] Appointment has been made, with JOEY,s Where: [address] [place], [place] [phone] [phone] Medications What How Much When Instructions Next Dose acetaminophen-hydrocodone ([place] 7.5 mg-325 mg oral tablet) 1 Tablet(s) [...] you are awake and alert. ??? Take udpy-isw-sstuhcr and prescription medicines only as told by [...] 01/30/2014 Document Revised: 09/13/2016 Document Reviewed: 07/31/2016 [employer] Interactive Patient Education ?? 2019 [employer] Angiogram, Care After This sheet gives [...] and water are not available, use hand industrial roofer. ? Change your dressing as told by [...] contrast dye from your body. ??? Take kybk-kep-jnohsla and prescription medicines only as told by [...] 10/28/2005 Document Revised: 03/16/2017 Document Reviewed: 03/16/2017 [employer] Interactive Patient Education ?? 2019 [employer] Angiogram An angiogram is a procedure [...] including vitamins, herbs, eye drops, creams, and etnz-hqp-hlhehan medicines. ??? Any problems you or family [...] 01/19/2006 Document Revised: 08/16/2017 Document Reviewed: 05/18/2017 [employer] Interactive Patient Education ?? 2019 [employer] Intermittent Claudication Intermittent claudication is pain [...] calories. Consider working with a diet and clinical operations specialist (dietitian) to help you make healthy [...] blood pressure, or high cholesterol. ??? Take hmde-szv-snhrper and prescription medicines only as told by [...] 02/11/2005 Document Revised: 05/12/2017 Document Reviewed: 05/12/2017 [employer] Interactive Patient Education ?? 2019 [employer]. Peripheral Vascular Disease Peripheral vascular disease (PVD) [...] activities for you. General instructions ??? Take lnbm-hsp-fwsibnw and prescription medicines only as told by [...] 05/19/2005 Document Revised: 05/19/2017 Document Reviewed: 05/19/2017 [employer] Interactive Patient Education ?? 2019 [employer] Emergency Awareness and Preventative Care STROKE [...] Assistance with quitting is available by contacting 1-110-TPGUNOW. This is a free resource providing counseling, [...] was given the opportunity to ask questions. Patient/Home Economics Extension Worker Name: Patient/Home Economics Extension Worker Signature: Relationship to Patient: Clinician/Hospital Home Economics Extension Worker Signature: Date: documented in this encounter Plan of Treatment Not on file documented as of this encounter Visit Diagnoses Not on filedocumented in this encounter
--- OUTSIDE RECORDS SUMMARY | 2024-11-15 09:00 | XMS_ITS | Encounter Summary ---
Author Organization [employer] ([place], [place], [place], [place]) Address [address] [place] [address] Care Team Providers Care Furnace Attendant Name Role Phone Unavailable Primary Care Provider Unavailabl e Encounter Details Date Type Department Care Team (Late st Contact Info) Description 03/14/2019 Transcribed Document [facility] [place] Family Medicine [address] [place] [address] ProviderRegina MD [address] [place] [address] Social History Tobacco Use Types [...] Regina Henley MD - 03/14/2019 4:15 PM CERTIFIED DIALYSIS TECHNICIAN Patient Education Materials Follows: Moderate Conscious Sedation, [...] you are awake and alert. ??? Take xnab-cwz-ceioiwe and prescription medicines only as told by [...] 01/30/2014 Document Revised: 09/13/2016 Document Reviewed: 07/31/2016 LookIt Interactive Patient Education ? 2019 [employer] Inc. Angiogram, Care After This sheet gives [...] and water are not available, use hand tree thinner. ? Change your dressing as told by [...] contrast dye from your body. ??? Take fycb-fmh-csahtkq and prescription medicines only as told by [...] 10/28/2005 Document Revised: 03/16/2017 Document Reviewed: 03/16/2017 [employer]It Interactive Patient Education ? 2019 [employer]. Angiogram An angiogram is a procedure [...] including vitamins, herbs, eye drops, creams, and rzxo-kmo-dpnhgls medicines. ??? Any problems you or family [...] 01/19/2006 Document Revised: 08/16/2017 Document Reviewed: 05/18/2017 [employer]It Interactive Patient Education ? 2019 [employer]. Cardiovascular Intermittent Claudication Intermittent claudication is [...] calories. Consider working with a diet and nutrition services manager (dietitian) to help you make healthy food [...] blood pressure, or high cholesterol. ??? Take zvfq-wqq-oqmycdw and prescription medicines only as told by [...] 02/11/2005 Document Revised: 05/12/2017 Document Reviewed: 05/12/2017 [employer] Interactive Patient Education ? 2019 [employer]. Peripheral Vascular Disease Peripheral vascular disease [...] activities for you. General instructions ??? Take hmxr-epr-ytcgohr and prescription medicines only as told by [...] 05/19/2005 Document Revised: 05/19/2017 Document Reviewed: 05/19/2017 [employer] Interactive Patient Education ? 2019 [employer]. documented in this encounter Plan of Treatment Not on file documented as of this encounter Visit Diagnoses Not on filedocumented in this encounter
--- OUTSIDE RECORDS SUMMARY | 2024-11-15 09:00 | XMS_ITS | Encounter Summary ---
Author Organization [employer] ([place], [place], [place], [place]) Address [address] [place] [address] Care Team Providers Care Plastic Machine Operator Name Role Phone Unavailable Primary Care Provider Unavailabl e Encounter Details Date Type Department Care Team (Late st Contact Info) Description 03/13/2019 Transcribed Document [facility] [place] Family Medicine [facility] [address] ProviderRegina [place] [facility] [address] Social History Tobacco Use Types [...] - Historical ProviderMD - 03/13/2019 1:53 PM PUBLIC WORKS SUPERVISOR PAT Adult Entered On: 03/13/2019 13:59 EST Performed On: 03/13/2019 13:53 EST by Susie Hernández RN Height and Weight, Clinical Dosing Height Source : Measured Height Entry Format : [place] Height, Feet : 0 ft(Converted to: 0 cm, 0 Inch) Height, Inches : 63 Inch(Converted to: 5 ft 3 Inch, 160.02 cm) Clinical Height : 160.02 cm Weight Source : Standing scale Weight Entry Format : [place] Clinical Dosing Weight : 85.95 kg Weight, Pounds : 189.1 lb Body Surface Area (BSA) : 1.89 m2 Body Mass Index : 33.6 kg/m2 (HI) [place] Body Weight : 52 kg Susie Hernández RN - 03/14/2019 11:07 EST Health Histories Smoking Status : Former smoker, quit more than 30 days ago Smokeless Tobacco Status : Never Implant/Device Type, Experimental Machinist and Model : neck fusion and lumbar [...] Susie Hernández RN - 03/13/2019 13:53 EST [place] Suicide Severity Rating Scale (C-SSRS) CSSRS Past [...] Support Person/Pt Rep Name : Christine rodasgila [phone] Want Family/Rep/Phys Notified of Admit : No Emergency Contact #1 : see above Emergency Contact #1 Phone Number : . Emergency Contact #1 Relationship : . Emergency Contact #2 : . Emergency Contact #2 Phone Number : .. Emergency Contact #2 Relationship : . Information Obtained From : Patient Primary Language : Hebrew Preferred Communication Mode : Verbal Communication Barrier [...]
--- OUTSIDE RECORDS SUMMARY | 2024-11-15 09:01 | XMS_ITS | Encounter Summary ---
Author Organization [facility] Address [address] [place] [id number] Care Team Providers Care Gold Reclaimer Name Role Phone Mustapha James MD Primary Care Provider + Reason for Visit * Reason Onset Date Comments Med Refill 10/24/2024 Encounter Details Date Type Department Care Team (Late st Contact Info) Description 10/24/2024 Refill [facility] [address] [place] [address] Mustapha James MD [address] [place] [address] Social History Tobacco Use Types [...] a month already. She is to call back shoe operator to the end of the Rx. She voiced understanding. * Telephone Encounter - Mary Rader RegSched Rep - 10/24/2024 3:44 PM EDT PATIENT CALLED TO RELAY THAT HER EVALUATION ADVISOR DR JACOBSONS PCP TO SEND IN REFILLS FOR TORSEMIDE * Telephone Encounter - Leandra Dotson RegSched Rep - 10/24/2024 3:34 PM EDT A user error has taken place: encounter opened in error, closed for administrative reasons. documented in this encounter Plan of Treatment Upcoming Encounters Date Type Department Care Team (Late st Contact Info) Description 11/26/2024 1:15 PM EDT Appointment [facility] [address] [place] [address] 12/06/2024 2:00 PM EDT Office [facility] [address] [place] [address] Chirag Mckee MD [address] [place] [address] 12/27/2024 2:00 PM EDT Office Visit [facility] [address] [place] [phone] Mustapha James MD [address] [place] [address] documented as of this encounter Visit Diagnoses Not on filedocumented in this encounter Additional Health Concerns Assessment Noted Time PHQ-2 Depression Total Score: 1 10/24/19 24 2:19 PM EDT documented as of this encounter Care Teams Gold Reclaimer Relationship Specialty Start Date End Date Mustapha James MD [address] [place] [address] PCP - General Family Medicine 01/02/24 documented as of this encounter
--- OUTSIDE RECORDS SUMMARY | 2024-11-15 09:01 | XMS_ITS | Encounter Summary ---
Author Organization [facility] Address [address] [place] [id number] Care Team Providers Care Trap Setter Name Role Phone Mustapha Babin MD Primary Care Provider + Reason for Visit * Reason Onset Date Comments Advice Only 09/26/2024 Encounter Details Date Type Department Care Team (Late st Contact Info) Description 09/26/2024 Telephone [facility] [address] [facility] [place] [address] Mustapha Babin MD [address] [facility] [place] [address] Advice Only Social History Tobacco [...] Byrne Relationship: Self Best call back number: [phone] What was the call regarding: PATIENT IS [...] Info) Description 11/26/2024 1:15 PM EDT Appointment [facility] [address] [place] [address] 12/06/2024 2:00 PM EDT Office [facility] [address] [place] [address] Chirag Mckee MD [address] [place] [address] 12/27/2024 2:00 PM EDT Office Visit [facility] [address] [place] [phone] Mustapha Babin MD [address] [place] [address] documented as of this encounter Visit Diagnoses Not on filedocumented in this encounter Additional Health Concerns Assessment Noted Time PHQ-2 Depression Total Score: 1 10/24/19 2:19 PM EDT documented as of this encounter Care Teams Trap Setter Relationship Specialty Start Date End Date Mustapha Babin MD [address] [place] [address] PCP - General Family Medicine 01/02/24 documented as of this encounter
--- OUTSIDE RECORDS SUMMARY | 2024-11-15 09:01 | XMS_ITS | Encounter Summary ---
Author Organization [facility] Address [address] [place] [phone] Care Team Providers Care Edger Machine Operator Name Role Phone Mustapha James MD Primary Care Provider + Reason for Visit * Reason Comments Med Refill Encounter Details Date Type Department Care Team (Late st Contact Info) Description 09/27/2024 Refill [facility] [address] [facility] [place] [address] Mustapha James MD [address] [facility] [place] [address] Failed back syndrome of lumbar [...] Info) Description 11/26/2024 1:15 PM EDT Appointment [facility] [address] [place] [address] 12/06/2024 2:00 PM EDT Office Visit [facility] [address] [place] [address] Chirag Mckee MD [address] [place] [address] 12/27/2024 2:00 PM EDT Office Visit [facility] [address] [place] [address] Mustapha James MD [address] [place] [address] documented as of this encounter Visit Diagnoses Diagnosis 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
--- OUTSIDE RECORDS SUMMARY | 2024-11-15 09:01 | XMS_ITS | Encounter Summary ---
Author Organization [facility] Address [address] [place] [phone] Care Team Providers Care Hedis Registered Nurse Rn Name Role Phone Mustapha James MD Primary Care Provider + Reason for Visit * Reason Comments Med Refill Encounter Details Date Type Department Care Team (Late st Contact Info) Description 11/02/2024 Refill [facility] [address] [facility] [place] [address] Mustapha James MD [address] [facility] [place] [address] Failed back syndrome of lumbar [...] 1:15 PM EDT Appointment [facility] [address] [place] [address] 12/06/2024 2:00 PM EDT Office [facility] [address] [facility] [place] [address] Chirag Mckee MD [address] [place] [address] 12/27/2024 2:00 PM EDT Office Visit [facility] [address] [place] [address] Mustapha James MD [address] [place] [address] documented as of this encounter Visit Diagnoses Diagnosis 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
--- OUTSIDE RECORDS SUMMARY | 2024-11-15 09:01 | XMS_ITS | Encounter Summary ---
Author Organization [facility] Address [address] [place] [phone] Care Team Providers Care Dog Licenser Name Role Phone Mustapha James MD Primary Care Provider + Reason for Visit * Reason Onset Date Comments Advice Only 10/18/2024 Encounter Details Date Type Department Care Team (Late st Contact Info) Description 10/18/2024 Telephone [facility] [address] [facility] [place] [address] Mustapha James MD [address] [facility] [place] [address] Advice Only Social History Tobacco [...] Info) Description 11/26/2024 1:15 PM EDT Appointment [facility] [address] [place] [address] 12/06/2024 2:00 PM EDT Office Visit [facility] [address] [place] [address] Chirag Mckee MD [address] [place] [address] 12/27/2024 2:00 PM EDT Office Visit [facility] [address] [place] [address] Mustapha James MD [address] [place] [address] documented as of this encounter Visit Diagnoses Not on filedocumented in this encounter Additional Health Concerns Assessment Noted Time PHQ-2 Depression Total Score: 1 10/24/19 2:19 PM EDT documented as of this encounter Care Teams Dog Licenser Relationship Specialty Start Date End Date Mustapha James MD [address] [place] [address] PCP - General Family Medicine 01/02/24 documented as of this encounter
--- OUTSIDE RECORDS SUMMARY | 2024-11-15 09:01 | XMS_ITS | Encounter Summary ---
Author Organization [facility] Address [address] [place] [id number] Care Team Providers Care Canary Raiser Name Role Phone Mustapha James MD Primary Care Provider + Reason for Visit * Reason Onset Date Comments Fluid Retention 10/11/2024 Encounter Details Date Type Department Care Team (Late st Contact Info) Description 10/11/2024 Telephone [facility] [address] [facility] [place] [address] Mustapha James MD 210 [facility] [place] [address] Fluid Retention Social History Tobacco [...] seaman Relationship: Self Best call back number: [phone] What was the call regarding: PATIENT STATES [...] Info) Description 11/26/2024 1:15 PM EDT Appointment [facility] [address] [place] [address] 12/06/2024 2:00 PM EDT Office Visit [facility] [address] [place] [address] Chirag Mckee MD [address] [place] [address] 12/27/2024 2:00 PM EDT Office Visit [facility] [address] [place] [phone] Mustapha James MD [address] [place] [address] documented as of this encounter Visit Diagnoses Not on filedocumented in this encounter Additional Health Concerns Assessment Noted Time PHQ-2 Depression Total Score: 1 10/24/19 24 2:19 PM EDT documented as of this encounter Care Teams Canary Raiser Relationship Specialty Start Date End Date Mustapha James MD [address] [place] [address] PCP - General Family Medicine 01/02/24 documented as of this encounter
--- OUTSIDE RECORDS SUMMARY | 2024-11-15 09:01 | XMS_ITS | Encounter Summary ---
Author Organization [facility] Address [address] [place] [id number] Care Team Providers Care Sheet Metal Layout Mechanic Name Role Phone Mustahpa James MD Primary Care Provider + Reason for Visit * Reason Onset Date Comments OVERNIGHT STUDY 09/27/2024 Encounter Details Date Type Department Care Team (Late st Contact Info) Description 09/27/2024 Telephone [facility] 210 [facility] [place] [address] Mustapha James MD [address] [place] [address] OVERNIGHT STUDY Social History Tobacco [...] Rep - 09/27/2024 11:37 AM EDT PER CLAUDIA PATIENT DOESN'T WANT TO COMPLETE documented in this encounter Plan of Treatment Upcoming Encounters Date Type Department Care Team (Late st Contact Info) Description 11/26/2024 1:15 PM EDT Appointment [facility] [address] [place] [address] 12/06/2024 2:00 PM EDT Office Visit [facility] [address] [place] [address] Chirag Mckee MD [address] [place] [address] 12/27/2024 2:00 PM EDT Office Visit [facility] 210 [place] [address] Mustapha James MD [address] [place] [address] documented as of this encounter Visit Diagnoses Not on filedocumented in this encounter Additional Health Concerns Assessment Noted Time PHQ-2 Depression Total Score: 1 10/24/19 24 2:19 PM EDT documented as of this encounter Care Teams Sheet Metal Layout Mechanic Relationship Specialty Start Date End Date Mustapha James MD [address] [place] [address] PCP - General Family Medicine 01/02/24 documented as of this encounter
--- OUTSIDE RECORDS SUMMARY | 2024-11-15 09:01 | XMS_ITS | Encounter Summary ---
Author Organization [facility] Address [address] [place] [phone] Care Team Providers Care Drying Unit Felting Machine Operator Name Role Phone Mustapha James MD Primary Care Provider + Reason for Visit * Reason Comments Med Refill Encounter Details Date Type Department Care Team (Late st Contact Info) Description 10/31/2024 Refill [facility] 210 [facility] [place] [address] Mustapha James MD 210 [facility] [place] [address] Social History Tobacco Use Types [...] Info) Description 11/26/2024 1:15 PM EDT Appointment [facility] [address] [place] [address] 12/06/2024 2:00 PM EDT Office Visit [facility] [address] [place] [address] Chirag Mckee MD [address] [place] [address] 12/27/2024 2:00 PM EDT Office Visit [facility] [address] [place] [address] Mustapha James MD [address] [place] [address] documented as of this encounter Visit Diagnoses Not on filedocumented in this encounter Additional Health Concerns Assessment Noted Time PHQ-2 Depression Total Score: 1 10/24/19 24 2:19 PM EDT documented as of this encounter Care Teams Drying Unit Felting Machine Operator Relationship Specialty Start Date End Date Mustapha James MD [address] [place] [address] PCP - General Family Medicine 01/02/24 documented as of this encounter
[2024-11-15] MEDS: SODIUM CHLORIDE 0.9% 250ML BAG 250 ML IV (09:20)
--- NOTE | 2024-11-15 09:34 | PC.NURSE ---
0923-Blood transfusion started at 100ml/hr
[2024-11-15] MEDS: ACETAMINOPHEN 325MG TAB 650 MG (10:05)
--- NOTE | 2024-11-15 10:12 | PC.NURSE ---
0953-Increased rate to 150 ml/hr at this time.
--- NOTE | 2024-11-15 10:35 | PC.NURSE ---
1023-Increased rate to 200 ml/hr at this time.
--- NOTE | 2024-11-15 11:59 | PC.NURSE ---
1150-Blood transfusion started at 100 ml/hr at this time.
--- NOTE | 2024-11-15 12:41 | PC.NURSE ---
1220-Increased rate to 150 ml/hr at this time.
--- NOTE | 2024-11-15 13:22 | PC.NURSE ---
1250-Increased rate to 200 ml/hr at this time.
== END 2024-11-15 14:48 | disposition home or self-care (01) ==
LOC: INF 08:53
PROVIDERS: PCP Family Medicine; Visit Provider Internal Medicine Medical Oncology
DX: D50.9 Iron deficiency anemia, unspecified (principal)
CPT/HCPCS: 36430; J7050; P9016

== ENCOUNTER 2024-11-29 13:17 | Outpatient (CLI) | payer MEDICARE, SELFPAY ==
--- OUTSIDE RECORDS SUMMARY | 2024-11-29 13:19 | XMS_ITS | Continuity of Care Document ---
Author Organization [facility]. If a dditional information is needed, contact Health Information Management at [phone] Address [address] [place] [address] Phone Care Team Providers Care Electronic Installer Name Role Phone Unavailable Unavailable Unavailable Encounters pre-admission 13-Apr-2023 14:06 ROSALINDA (Attending) Tristen
--- OUTSIDE RECORDS SUMMARY | 2024-11-29 13:20 | XMS_ITS | Encounter Summary ---
Author Organization [facility] Address [address] [place] [address] Care Team Providers Care Shift Production Supervisor Name Role Phone Mustapha James MD Primary Care Provider + Reason for Visit * Reason Onset Date Comments Advice Only 10/18/2024 Encounter Details Date Type Department Care Team (Late st Contact Info) Description 10/18/2024 Telephone [facility] [address] [place] [address] Mustapha James MD 210 [place] [address] Advice Only Social History Tobacco [...] Care Team (Late st Contact Info) Description 12/06/2024 2:00 PM EDT Office Visit [facility] [address] [place] [address] Chirag Mckee MD [address] [place] [address] 12/27/2024 2:00 PM EDT Office Visit [facility] 210 [facility] [place] [address] Mustapha James MD [address] [place] [address] documented as of this encounter Visit Diagnoses Not on filedocumented in this encounter Additional Health Concerns Assessment Noted Time PHQ-2 Depression Total Score: 1 10/24/19 24 2:19 PM EDT documented as of this encounter Care Teams Shift Production Supervisor Relationship Specialty Start Date End Date Mustapha James MD [address] [place] [address] PCP - General Family Medicine 01/02/24 documented as of this encounter
--- OUTSIDE RECORDS SUMMARY | 2024-11-29 13:20 | XMS_ITS | Encounter Summary ---
Author Organization [facility] Address [address] [place] [phone] Care Team Providers Care Velvet Weaver Name Role Phone Mustapha James MD Primary Care Provider [phone] Miguel Lamb MD Unavailable [phone] Encounter Details Date Type Department Care Team (Late Contact Info) Description 11/02/2024 Telephone [facility] [address] [address] Ariana Li [place] [id number] Social History Tobacco Use Types Packs/Day Years [...] Care Team (Late st Contact Info) Description 11/30/2024 11:30 AM EDT Office Visit [facility] [address] [address] Miguel Lamb MD [address] [place] [address] 01/04/2025 2:00 PM EDT Appointment [facility] [address] [place] [address] 01/04/2025 3:30 PM EDT Office Visit [facility] [place] [address] [place] [address] Miguel Lamb MD [address] [place] [address] documented as of this encounter Visit Diagnoses [...] documented as of this encounter Care Teams Velvet Weaver Relationship Specialty Start Date End Date Mustapha James MD [address] [place] [address] PCP - General 09/05/20 Miguel Lamb MD [address] [place] [address] Referring Physician Interventional Cardiology 08/16/24 documented as of this encounter
--- OUTSIDE RECORDS SUMMARY | 2024-11-29 13:20 | XMS_ITS | Encounter Summary ---
Author Organization [facility] Address [address] [place] [address] Care Team Providers Care Supervisor Body Assembly Name Role Phone Mustapha James MD Primary Care Provider + Reason for Visit * Reason Onset Date Comments OVERNIGHT STUDY 09/27/2024 Encounter Details Date Type Department Care Team (Late st Contact Info) Description 09/27/2024 Telephone [facility] [address] [place] [address] Mustapha James MD 210 [place] [address] OVERNIGHT STUDY Social History Tobacco [...] Rep - 09/27/2024 11:37 AM EDT PER CLADUIA PATIENT DOESN'T WANT TO COMPLETE documented in this encounter Plan of Treatment Upcoming Encounters Date Type Department Care Team (Late st Contact Info) Description 12/06/2024 2:00 PM EDT Office Visit [facility] [address] [place] [address] Chirag Mckee MD [address] [place] [address] 12/27/2024 2:00 PM EDT Office Visit [facility] 210 [facility] [place] [phone] Mustapha James MD 210 [facility] [place] [address] documented as of this encounter Visit Diagnoses Not on filedocumented in this encounter Additional Health Concerns Assessment Noted Time PHQ-2 Depression Total Score: 1 10/24/19 24 2:19 PM EDT documented as of this encounter Care Teams Supervisor Body Assembly Relationship Specialty Start Date End Date Mustapha James MD [address] [place] [address] PCP - General Family Medicine 01/02/24 documented as of this encounter
--- OUTSIDE RECORDS SUMMARY | 2024-11-29 13:20 | XMS_ITS | Encounter Summary ---
Author Organization [facility] Address [address] [place] [address] Care Team Providers Care Patient Clerical Assistant Name Role Phone Mustpaha James MD Primary Care Provider + Reason for Visit * Reason Onset Date Comments Med Refill 10/24/2024 Encounter Details Date Type Department Care Team (Late st Contact Info) Description 10/24/2024 Refill [facility] [address] [place] [address] Mustapha James MD 210 [place] [address] Social History Tobacco Use Types [...] a month already. She is to call simplex printer installer to the end of the Rx. She voiced understanding. * Telephone Encounter - Mary Rader RegSched Rep - 10/24/2024 3:44 PM EDT PATIENT CALLED TO RELAY THAT HER HAMMER FITTER DR JACOBSONS PCP TO SEND IN REFILLS [...] [facility] [address] [place] [phone] Chirag Mckee MD [address] [place] [address] 12/27/2024 2:00 PM EDT Office Visit [facility] 210 [facility] [place] [address] Mustapha James MD 210 [facility] [place] [address] documented as of this encounter Visit Diagnoses Not on filedocumented in this encounter Additional Health Concerns Assessment Noted Time PHQ-2 Depression Total Score: 1 10/24/19 24 2:19 PM EDT documented as of this encounter Care Teams Patient Clerical Assistant Relationship Specialty Start Date End Date Mustapha James MD [address] [place] [address] PCP - General Family Medicine 01/02/24 documented as of this encounter
--- OUTSIDE RECORDS SUMMARY | 2024-11-29 13:20 | XMS_ITS | Encounter Summary ---
Author Organization [facility] Address [address] [place] [address] Care Team Providers Care Salt Grinder Name Role Phone Mustapha James MD Primary Care Provider + Encounter Details Date Type Department Care Team (Late st Contact Info) Description 11/21/2024 Documentation [facility] [address] [facility] [address] [place] [address] Lauren Velasco, DON Social History Tobacco Use Types Packs/Day Years [...] on file documented as of this encounter Progress Notes * Lauren Velasco MSW - 11/21/2024 8:23 AM EDT PEARL contacted pt to discuss transportation concerns for upcoming scan. Pt was unavailable, thereforeSW left voicemail with contact information. SW will be available ongoing. * Lauren Velasco MSW - 11/21/2024 8:23 AM EDT Pt returned call and reported due to heart procedure, and swelling she is not able to drive. PEARL explained that we unfortunately dont have resources to assist with getting pt to scan in [place]. Ptreported if she can get her CT Scan at [facility], she has someone that can assist with transport. PEARL confirmed with RN this is possible, and that we will work on scheduling it. Pt thanked PEARL and will look out for call with schedule. documented in this encounter Plan of Treatment Upcoming Encounters Date Type Department Care Team (Late st Contact Info) Description 12/06/2024 2:00 PM EDT Office Visit [facility] [address] [place] [address] Chirag Mckee MD [address] [place] [address] 12/27/2024 2:00 PM EDT Office Visit [facility] [address] [place] [address] Mustapha James MD [address] [place] [address] documented as of this encounter Visit Diagnoses Not on filedocumented in this encounter Additional Health Concerns Assessment Noted Time PHQ-2 Depression Total Score: 1 10/24/19 24 2:19 PM EDT documented as of this encounter Care Teams Salt Grinder Relationship Specialty Start Date End Date Mustapha James MD [address] [place] [address] PCP - General Family Medicine 01/02/24 documented as of this encounter
--- OUTSIDE RECORDS SUMMARY | 2024-11-29 13:20 | XMS_ITS | Clinical Summary ---
Author Organization [facility] Address [address] [place] [address] Care Team Providers Care Block Operator Name Role Phone Mustapha James MD [...] 180 MG tabletIndications :Coronary artery disease involving [place] coronary artery of [place] heart without angina pectoris Take 1 tablet by mouth Daily. 30 tablet 11 024 Active lisinopril (PRINIVIL,ZESTRIL ) 20 MG tablet TAKE 1 TABLET BY MOUTH ONCE DAILY 30 tablet 025 Active lansoprazole (PREVACID) 30 MG capsule Take 1 capsule by mouth Daily. 30 capsule 025 Active nystatin-triamcin olone (MYCOLOG II) 238161-3.1 UNIT/GM-% creamIndications: Intertrigo Apply 1 Application topically to the appropriate area as directed 2 (Two) Times a Day. 60 g 025 Active nitroglycerin (NITROSTAT) 0.4 MG SL tabletIndications :Coronary artery disease involving [place] coronary artery of [place] heart without angina pectoris TAKE ONE TABLET BY MOUTH UNDER TONGUE NEEDED FOR PAIN DIRECTED 25 tablet 025 Active coenzyme Q10 50 MG capsule capsule Take by mouth Daily. Active metoprolol succinate XL (TOPROL-XL) 50 MG 24 hr tabletIndications :Coronary artery disease involving [place] coronary artery of [place] heart without angina pectoris Take 1.5 tablets by mouth Daily. 45 tablet 025 Active Iron, Ferrous Sulfate, 325 (65 Fe) MG tabletIndications :Coronary artery disease involving [place] coronary artery of [place] heart without angina pectoris,Other iron deficiency anemia [...] 025 Active vitamin D (ERGOCALCIFEROL) 1.25 MG (61507 UT) capsule capsule TAKE 1 CAPSULE BY MOUTH 1 (ONE) TIME PER WEEK. 5 capsule 2 025 Active HYDROcodone-aceta minophen (NORCO) 7.5-325 MG per tabletIndications :Failed back syndrome of lumbar spine,Spondylosis of lumbar region without myelopathy or radiculopathy,Art hritis of lumbar spine TAKE 1 TABLET BY MOUTH EVERY 8 HOURS NEEDED FOR MODERATE PAIN. 90 tablet 025 Active levothyroxine (SYNTHROID, LEVOTHROID) 50 MCG tabletIndications :Acquired hypothyroidism TAKE 1 TABLET BY MOUTH ONCE DAILY 30 tablet 4 025 Active levothyroxine (SYNTHROID, LEVOTHROID) 50 MCG tabletIndications :Acquired hypothyroidism TAKE 1 TABLET BY MOUTH ONCE DAILY 30 tablet 5 025 2024 Discontinued vitamin D (ERGOCALCIFEROL) 1.25 MG (45800 UT) capsule capsule TAKE 1 CAPSULE BY [...] IB(cT2a, cN0, cM0) - Signed by Derik Conn, ROSIO on 08/18/2023 Peripheral artery disease 03/02/2022 Lung [...] radiculopathy 08/21/2021 Coronary artery disease invo lving [place] coronary artery of [place] heart without angina pectoris 08/21/2021 Overview (01/24/2024): Cost Coordinator Dr. Omar Chavez Assessment & Plan (01/24/2024 3:35 PM EDT): Condition is stable. Continue regular follow-up with [facility] cardiology. Regarding her LDL goal of less than 55 this is only achievable for the patient with combination therapy. She will continue Repatha. I have prescribed bempedoic acid although anticipate this will need a prior authorization and likely be cost prohibitive. Consideration could also be given to Leqvio which patient should discuss with her railroad yard worker. Lipid panel will be ordered today Pulmonary emphysema 08/21/2021 Overview (08/21/2021): Sash Installer Dr. Ally James Acquired hypothyroidism 08/21/2021 Assessment [...] Encounters Date Type Department Care Team Description 11/28/2024 Refill [facility] [address] [place] [address] Mustapha James MD Acquired hypothyroidism 11/21/2024 Documentation [facility] [address] [place] [address] Lauren Velasco MSW 11/02/2024 Refill [facility] [address] [facility] [place] [place] [address] Mustapha James MD Failed back syndrome of lumbar spine; Spondylosis of lumbar region without myelopathy or radiculopathy; Arthritis of lumbar spine 10/31/[address] [facility] [address] [facility] [facility] [place] [address] Mustapha James MD 10/24/2024 Refill [facility] [address] [facility] [facility] [place] [address] Mustapha James MD 10/18/2024 [facility] [address] [facility] [place] [address] Mustapha James MD Advice Only 10/11/2024 [facility]INE [address] [facility] [place] [address] Mustapha James MD Fluid Retention 09/27/[facility] [address] [facility] [place] [address] Mustapha James MD Failed back syndrome of lumbar spine; Spondylosis of lumbar region without myelopathy or radiculopathy; Arthritis of lumbar spine; Generalized anxiety disorder 09/27/2024 [facility] [address] [facility] [place] [address] Mustapha James MD OVERNIGHT STUDY 09/26/2024 [facility] MEDICINE [address] [facility] [place] [address] Mustapha James MD Advice Only 09/11/[address] [facility] MEDICINE [address] [place], [place] [address] Mustapha James MD 09/10/2024 Results Follow-Up [facility] [address] [place], [place] [address] Mustapha James MD 09/07/2024 2:00 PM EDT Office Visit [facility] [address] [place], [place] [address] Mustapha James MD Anemia due to blood loss (Primary Dx); roasterman (current) use of opiate analgesic; Long-term current use of benzodiazepine; Coronary artery disease involving [place] coronary artery of [place] heart without angina pectoris; Moderate aortic valve stenosis; Chronic pain syndrome; Failed back syndrome of lumbar spine; Panlobular emphysema; Angina decubitus 09/07/2024 Travel 08/30/2024 Refill [facility] [address] [place] [place], [place] [address] Mustapha James MD Failed back syndrome of lumbar spine; Spondylosis of lumbar region without myelopathy or radiculopathy; Arthritis of lumbar spine from Last 3 Months Immunizations Immunization Administration [...] [facility] [address] [place] [address] Chirag Mckee MD [address] [place] [address] 12/27/2024 2:00 PM EDT Office Visit [facility] [address] [place] [address] Mustapha James MD [address] [place] [address] Health Maintenance Due Date Last [...] Date/Time Associated Diagnosis Comments SCANNED - LABS 11/15/2024 SCANNED - LABS 11/15/2024 SCANNED - LABS 11/15/2024 SCANNED - LABS 11/15/2024 SCANNED - LABS 11/15/2024 SCANNED - LABS 11/15/2024 SCANNED - LABS 11/14/2024 SCANNED - LABS 11/14/2024 SCANNED - LABS 11/14/2024 SCANNED - LABS 11/14/2024 SCANNED - LABS 11/14/2024 SCANNED - LABS 11/14/2024 SCANNED - LABS 11/14/2024 SCANNED - IMAGING 11/08/2024 SCANNED - LABS 11/05/2024 SCANNED - LABS 11/05/2024 SCANNED - LABS 11/05/2024 FERRITIN Routine 09/07/2024 2:42 PM EDT Anemia due to blood loss IRON PROFILE Routine 09/07/2024 2:42 PM EDT Anemia due to blood loss CBC (NO DIFF) Routine 09/07/2024 2:42 PM EDT Anemia due to blood loss POC ALBUMIN/CREATININE RATIO Routine 06/08/2024 1:03 PM EST Essential hypertension CT CHEST WO CONTRAST DIAGNOSTIC Routine 02/14/2024 3:12 PM EDT NSCLC of right lung SCANNED - MAMMO 05/19/2023 HEMOGLOBIN A1C Routine 06/03/2022 2:35 PM EST Paresthesia and pain of both upper extremities Prediabetes from Last 3 Months or Most Recently Relevant to Health Maintenance Results * LABS SCANNED (11/15/2024) Only the most recent of16 resultswithin the time period is included. us Mustapha James MD LAB BLOOD ORDERABLES Fin al Result * IMAGING SCANNED (11/08/2024) Anatomical Region Laterality Modality Radiographic Chery ging Mustapha James MD IMG DIAGNOSTIC IMAGING O RDERABLES Final Result * (ABNORMAL) Iron Profile (09/07/2024 2:42 PM EDT) Pathologist [facility] TIBC 454(H) 250 - 450 ug/dL [facility] UIBC 431(H) 118 - 369 ug/dL [facility] Iron 23(L) 27 - 139 ug/dL [facility] Iron Saturation 5(L) 15 - 55 % [facility] Blood 09/07/2024 2:42 PM EDT 09/07/2024 N[facility]ative [facility] - 09/08/2024 8:11 AM EDT Performed at: - [address] [id number] Content Development Specialist: Jason Bullock PhD, Phone: [phone] Patient Fasting: Y Mustapha James MD LAB BLOOD ORDERABLES Fin al Result [facility] [address] [place] [address], [facility] [address] [place] [address], [place] [phone] * (ABNORMAL) CBC (No Diff) (09/07/2024 2:42 PM EDT) Pathologist [facility] WBC 10.1 3.4 - 10.8 x10E3/uL [facility] [...] 09/07/2024 2:42 PM EDT 09/07/2024 Narrative [facility] (AMBULATORY) - 09/08/2024 8:11 AM EDT Performed at: [address] [place] [id number] Content Development Specialist: Jason Bullock PhD, Phone: [phone] Patient Fasting: Y Mustapha James MD LAB BLOOD ORDERABLES Fin al Result Performing Organization Address City/[facility]/ZIP Co de Phone Number [facility] [address] [place] [address], [place] [phone] [facility] [address] [place] [address], [place] [phone] * (ABNORMAL) Ferritin (09/07/2024 2:42 PM EDT) [facility] Ferritin 14(L) 15 - 150 ng/mL [facility] Blood 09/07/2024 2:42 PM EDT 09/07/2024 [facility] ([facility]) - 09/08/2024 8:11 AM EDT Performed at: [address] [place] [id number] Content Development Specialist: Jason Bullock PhD, Phone: [phone] Patient Fasting: Y Mustapha James MD LAB BLOOD ORDERABLES Fin al Result Performing Organization Address City/[facility]/ZIP Co de Phone Number [facility] [address] [place] [address], [place] [phone] [facility] [address] [place] [address], [place] [phone] * (ABNORMAL) Albumin/Creatinine Ratio Urine (06/08/2024 1:03 PM EST) Pathologist [facility] POC ALBUMIN, URINE 10 mg/L POC CREATININE, URINE 10 mg/dL POC Urine Albumin Creatinine Ratio 30-300 <30 Comment:abnormal Lot Number [id number] Expiration Date 03/24/2025 Urine 06/08/2024 1:03 PM EST us Mustapha James MD POINT OF CARE TEST [...] MD 02/15/2024 10:36 PM EDT Workstation ID: [id number] Narrative 02/15/2024 10:[address] CHEST [...] mm which appears similar to prior study (). No free fluid in the upper abdomen. [...] 10 mm which appears similar to priorstudy (). No free fluid in the upper abdomen. [...] MD 02/15/2024 10:36 PM EDT Workstation ID: [id number] Derik Conn APRN IMG CT ORDERABLES Final R esult * [...] 06/03/2022 2:35 PM EST 06/03/2022 Narrative [facility] (AMBULATORY) - 06/04/2022 10:36 AM EST Performed at: 01 - [facility] [id number] Content Development Specialist: Jason Bullock PhD, Phone: [phone] Mustapha James MD LAB BLOOD ORDERABLES Fin al Result [facility] [address] [place] [address], [facility] [address] [place] [address], from Last 3 Months or Most Recently Relevant to Health Maintenance Insurance [place], [place] [id number] [employer] PPO Advance Directives Documents on File Type Date Recorded Patient Overcoiler Expl anation POWER OF CHASSIS INSPECTOR - SCAN 09/13/2022 11:26 AM POWER OF CHASSIS INSPECTOR, [facility], 02/05/2022 Care Teams Block Operator Relationship Specialty Start Date End Date Mustapha James MD [address] [facility] [place] [address] PCP - General Family Medicine 01/02/24
--- OUTSIDE RECORDS SUMMARY | 2024-11-29 13:20 | XMS_ITS | Encounter Summary ---
Author Organization [facility] Address [address] [place] [address] Care Team Providers Care Crm Marketing Specialist Name Role Phone Mustapha James MD Primary Care Provider + Reason for Visit * Reason Onset Date Comments Fluid Retention 10/11/2024 Encounter Details Date Type Department Care Team (Late st Contact Info) Description 10/11/2024 Telephone [facility] [address] [place] [address] Mustapha James MD [address] [place] [address] Fluid Retention Social History Tobacco [...] Rep - 10/11/2024 4:04 PM EDT Caller: Jodi Byrne Relationship: Self Best call back number: [phone] What was the call regarding: PATIENT STATES [...] [facility] [address] [place] [address] Chirag Mckee MD [address] [place] [address] 12/27/2024 2:00 PM EDT Office Visit [facility] [address] [place] [phone] Mustapha James MD [address] [place] [address] documented as of this encounter Visit Diagnoses Not on filedocumented in this encounter Additional Health Concerns Assessment Noted Time PHQ-2 Depression Total Score: 1 10/24/19 24 2:19 PM EDT documented as of this encounter Care Teams Crm Marketing Specialist Relationship Specialty Start Date End Date Mustapha James MD [address] [place] [address] PCP - General Family Medicine 01/02/24 documented as of this encounter
--- OUTSIDE RECORDS SUMMARY | 2024-11-29 13:20 | XMS_ITS | Encounter Summary ---
Author Organization [facility] Address [address] [place] [address] Care Team Providers Care Local Driver Name Role Phone Mustapha James MD Primary Care Provider + Reason for Visit * Reason Comments Med Refill Encounter Details Date Type Department Care Team (Late st Contact Info) Description 11/28/2024 Refill [facility] MED[facility] [address] [place] [address] Mustapha James MD [address] [place] [address] Acquired hypothyroidism Social History Tobacco Use Types Packs/Day Years [...] [facility] [address] [place] [address] Chirag Mckee MD [address] [place] [address] 12/27/2024 2:00 PM EDT Office Visit [facility] [address] [facility] [place] [phone] Mustapha James MD [address] [place] [address] documented as of this encounter Visit Diagnoses Diagnosis Acquired hypothyroidism Unspecified hypothyroidism documented in this encounter Additional Health Concerns Assessment Noted Time PHQ-2 Depression Total Score: 1 10/24/19 24 2:19 PM EDT documented as of this encounter Care Teams Local Driver Relationship Specialty Start Date End Date Mustapha James MD [address] [place] [address] PCP - General Family Medicine 01/02/24 documented as of this encounter
--- OUTSIDE RECORDS SUMMARY | 2024-11-29 13:20 | XMS_ITS | Encounter Summary ---
Author Organization [facility] Address [address] [place] [address] Care Team Providers Care Radio Disc Jockey Name Role Phone Mustapha James MD Primary Care Provider + Reason for Visit * Reason Comments Med Refill Encounter Details Date Type Department Care Team (Late st Contact Info) Description 10/31/2024 Refill [facility] [address] [place] [address] Mustapha James MD [address] [place] [address] Social History Tobacco Use Types [...] [facility] [address] [place] [address] Chirag Mckee MD [address] [place] [address] 12/27/2024 2:00 PM EDT Office Visit [facility] [address] [facility] [phone] Mustapha James MD [address] [place] [address] documented as of this encounter Visit Diagnoses Not on filedocumented in this encounter Additional Health Concerns Assessment Noted Time PHQ-2 Depression Total Score: 1 10/24/19 24 2:19 PM EDT documented as of this encounter Care Teams Radio Disc Jockey Relationship Specialty Start Date End Date Mustapha James MD [address] [place] [address] PCP - General Family Medicine 01/02/24 documented as of this encounter
--- OUTSIDE RECORDS SUMMARY | 2024-11-29 13:20 | XMS_ITS | Encounter Summary ---
Author Organization [facility] Address [address] [place] [address] Care Team Providers Care Crew Person Name Role Phone Mustapha James MD Primary Care Provider + Reason for Visit * Reason Comments Med Refill Encounter Details Date Type Department Care Team (Late st Contact Info) Description 11/02/2024 Refill [facility] [address] [place] [address] Mustapha James MD [address] [place] [address] Failed back syndrome of lumbar [...] [facility] [address] [place] [address] Chirag Mckee MD [address] [place] [address] 12/27/2024 2:00 PM EDT Office Visit [facility] [address] [facility] [place] [address] Mustapha James MD [address] [place] [address] documented as of this encounter Visit Diagnoses Diagnosis 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
--- OUTSIDE RECORDS SUMMARY | 2024-11-29 13:20 | XMS_ITS | Clinical Summary ---
Author Organization [facility] Address [address] [place] [address] Care Team Providers Care Senior Medical Transcriptionist Name Role Phone Mustapha James MD Primary Care Provider [phone] Miguel Lamb MD Unavailable Allergies Active Allergy Reactions Criticality Noted Date [...] by mouth daily. 0 Active HYDROcodone-joanne taminophen ([place]) 7.5-325 MG tablet Take 1 tablet by [...] Type Department Care Team Description 11/02/2024 Telephone [facility] [place] [facility] [address] [place] [address] Guillermo Ariana 09/18/2024 8:30 AM EDT - 09/18/2024 10:30 AM EDT Surgery Cardiac Mechanotherapist [address] [place] [address] Miguel Lamb MD Percutaneous coronary intervention [86657 (CPT )] 09/18/2024 7:17 AM EDT - 09/18/2024 3:19 PM EDT Hospital Encounter Cardiac Mechanotherapist [address] [place] [address] Miguel Lamb MD S/P coronary artery stent placement Discharge Disposition: Home or Self Care 08/30/2024 2:20 PM EDT - 08/30/2024 4:20 PM EDT Surgery Cardiac Mechanotherapist [address] [place] [address] Miguel aLmb MD Percutaneous coronary intervention [06075 (CPT )] 08/30/2024 1:09 PM EDT - 08/31/2024 1:48 PM EDT Hospital Encounter [facility] Inpatient [address] [place] [address] Miguel Lamb MD S/P coronary artery stent placement (Primary Dx); Nonrheumatic aortic valve stenosis Discharge Disposition: Home or Self Care 08/30/2024 Travel from Last 3 Months Immunizations Immunization [...] Description 11/30/2024 11:30 AM EDT Office Visit [facility] [address] [phone] Miguel Lamb MD [address] [place] [phone] 01/04/2025 2:00 PM EDT Appointment Cardiac Imaging [address] [place] [phone] 01/04/2025 3:30 PM EDT Office Visit [facility] 800 [facility]. [address] [phone] Miguel Lamb MD [address] [place] [phone] Health Maintenance Due Date Last Done Comments [...] 2003 [facility]Y-Diabetes: Hemoglobin A1C 12/01/202212/2022, 07/07/2019, 07/04/2019 WIU-SOFPT-55 Vaccine ( season) 2023 02/24/2022, 04/01/2021, 08/06/2020, [...] this topic Medical Devices Implanted Type Area Data Base Design Analyst Device Identifier Shelf Expiration Date Model / Serial / Lot Stent Cedar Manjit Rx 4.5mm X 12mm - [id number] Implanted:Qty: 1 on 08/30/2024 by Miguel Lamb MD at [id number] 03/21/2027 [id number] UX / / [id number] Stent Coronary Cedar Manjit Rx 3.00mm X 18mm - [id number] Implanted:Qty: 1 on 08/30/2024 by Miguel Lamb MD at [id number] 06/14/2027 [id number] UX / / [id number] Stent Coronary [place]edar [place] Rx 2.75mm X 30mm - [id number] Implanted:Qty: 1 on 09/18/2024 by Miguel Lamb MD at [id number] 03/25/2027 [id number] UX / / [id number] Stent Coronary Cedar Manjit Rx 3.00mm X 26mm - [id number] Implanted:Qty: 1 on 09/18/2024 by Miguel Lamb MD at [id number] 06/21/2027 [id number] UX / / [id number] Stent Coronary Cedar Manjit Rx 3.50mm X 12mm - [id number] Implanted:Qty: 1 on 09/18/2024 by Miguel Lamb MD at [id number] 03/04/2027 [id number] UX / / [id number] Procedures Procedure Name Priority Date/Time Associated Diagnosis [...] of an overlapping 3.5 x 12 mm Cedar Manjit drug-eluting stent. Ostium flared to 4.0. 3. Serial 70% diffuse lesions of the mid-distal RCA s/p successful PCI with placement of overlapping 3.0 x 26 mm and 2.75 x 30 mm Cedar [place] drug-eluting stents (proximal-distal). Recommendations: 1. Post-PCI EKG. [...] After confirming therapeutic activated clotting time, a CertificationPoint wire was advanced beyond the lesion and into the distal RCA. We advanced an Emerge RX 2.5 x 20 mm balloon into the mid-dstial RCA lesion and inflated to 12 rachael. The balloon was withdrawn slightly and serial inflations performed using the same technique. We then advanced a 2.75 mm x 30 mm Cedar [place] drug eluting stent into the lesion and deployed at 12 rachael. We then placed and overlapping 3.0 x 26 mm Cedar Manjit drug-eluting stent proximal to the aforementioend stent, inflated to 12 rachael. Post-dilation of the proximal-mid stent was then carried out using a 3.0 NC balloon. We then closely evaluated the ostium which appeared to have disease and appeared to be uncovered. We then advanced a 3.5 x 12 mm Cedar Manjit drug- eluting stent in the proximal [...] The patient was transferred back to the skill labor holding area in good condition. Coronary Findings [...] 09/26/2024 9:35 AM EDT [facility] Ground Transportation Operator ID LuizaMary Saenz 09/26/2024 9:35 AM EDT [facility] [...] UNSOLICITED RESULTS Final Result Performing Organization Address [facility] Co de Phone Number [facility] [address] LAB [address] [place] [address] * (ABNORMAL) POCT creatinine (09/18/2024 8:24 AM EDT) Only the most recent of2 resultswithin the time period is included. [facility] Creatinine, Point of Care 1.2(H) 0.6 - 1.1 mg/dL 09/18/2024 8:28 AM EDT [facility] POCT eGFR 48 mL/min/1. 73m*2 09/18/2024 8:28 AM EDT [facility] Ground Transportation Operator ID Rosangela Gallegos 09/18/2024 8:28 AM EDT HEALTH[facility]ARE LAB Device ID [id number] 09/18/2024 8:28 AM EDT [facility] Comment [...] Co de Phone Number [facility]ARE [facility] [address] LAB [address] [place] [address] * (ABNORMAL) CBC and differential (09/18/2024 8:20 AM EDT) [facility] WBC Count 8.79 3.70 - 10.30 [...] Resu lt [facility] [address] [place] [address] * (ABNORMAL) Basic metabolic panel (09/18/2024 8:20 [...] Resu lt [facility] [address] [place] [address] * (ABNORMAL) N-Terminal Probnp, Plasma (08/31/2024 3:59 AM EDT) N-Terminal, PROBNP, Plasma 5,650(H) 0 - 899 pg/mL 08/31/2024 5:38 AM EDT [facility] Blood Venous blood specimen / Unknown Venipuncture / Unknown 08/31/2024 3:59 AM EDT 08/31/2024 4:36 AM EDT us Zuly Gaspar APRN LAB BLOOD ORDERABLES Final R esult [facility] [address] [place] [address] * (ABNORMAL) CBC W/O Differential (08/31/2024 3:59 AM EDT) Only the most recent of2 resultswithin the time period is included. WBC Count 16.14(H) 3.70 - 10.30 10*3/uL LAB HEMATOLOGY METHOD 08/31/2024 4:45 AM EDT [facility] RBC Count 2.68(L) 3.90 - 5.20 10*6/uL LAB HEMATOLOGY METHOD 08/31/2024 4:45 AM EDT [facility] HGB 7.9(L) 11.2 - 15.7 g/dL LAB HEMATOLOGY METHOD 08/31/2024 4:45 AM EDT [facility] HCT 25.6(L) 34.0 - 45.0 % LAB HEMATOLOGY METHOD 08/31/2024 4:45 AM EDT [facility] Platelet Count 277 155 - 369 10*3/uL LAB HEMATOLOGY METHOD 08/31/2024 4:45 AM EDT [facility] MCV 96 79 - 98 fL LAB HEMATOLOGY METHOD 08/31/2024 4:45 AM EDT [facility] MCH 29.5 26.0 - 32.0 pg LAB HEMATOLOGY METHOD 08/31/2024 4:45 AM EDT [facility] MCHC 30.9 30.7 - 35.5 g/dL LAB HEMATOLOGY METHOD 08/31/2024 4:45 AM EDT [facility] RDW 15.0(H) 11.5 - 14.5 % LAB HEMATOLOGY METHOD 08/31/2024 4:45 AM EDT [facility] MPV 10.3 8.8 - 12.5 fL LAB HEMATOLOGY METHOD 08/31/2024 4:45 AM EDT [facility] nRBC 0.0 <=0.0 per 100 WBCs LAB HEMATOLOGY METHOD 08/31/2024 4:45 AM EDT [facility] Blood Venous blood specimen / Unknown Venipuncture / Unknown 08/31/2024 3:59 AM EDT 08/31/2024 4:29 AM EDT Zuly Gaspar IT PROJECT COORDINATOR LAB BLOOD ORDERABLES Final R esult [facility] [address] [place] [address] * Magnesium, Plasma (08/31/2024 3:59 AM EDT) Magnesium, Plasma 2.2 1.9 - 2.4 mg/dL 08/31/2024 5:38 AM EDT [facility] Blood Venous blood specimen / Unknown Venipuncture / Unknown 08/31/2024 3:59 AM EDT 08/31/2024 4:36 AM EDT Zuly Gaspar IT PROJECT COORDINATOR LAB BLOOD ORDERABLES Final R esult Performing Organization Address [facility] Co de Phone Number [facility] [address] [place] [address] * ECG Adult (08/30/2024 6:02 PM EDT) EKG DIAGNOSIS CLASS Abnormal MUSE ECG Ventricular Rate 99 BPM MUSE ECG Atrial Rate 99 BPM MUSE ECG CA Interval 142 ms MUSE ECG QRSD Interval 86 ms MUSE ECG QT Interval 368 ms MUSE ECG QTC Interval 472 ms MUSE ECG P [place] 66 degrees MUSE ECG R [place] 16 degrees MUSE ECG T Wave [place] 59 degrees MUSE ECG Diagnosis Normal sinus rhythm MUSE ECG Diagnosis Nonspecific ST and T wave abnormality MUSE ECG Diagnosis MUSE ECG Diagnosis MUSE ECG Diagnosis Confirmed by Dusty Petit ([id number]) on 08/31/2024 5:05:48 PM MUSE ECG 08/30/2024 6:02 PM EDT 08/31/2024 5:05 PM EDT Miguel Lamb MD ECG ORDERABLES Final Result Performing Organization Address City/[facility] Co de Phone Number MUSE ECG * PERC CORONARY INTERVENTION (08/30/2024 5:38 PM EDT) Anatomical Region Laterality Modality Other Narrative 09/03/2024 2:51 PM EDT Conclusion: 1. 90% ostial left main stenosis s/p successful PCI with placement of a 4.5 x 15 mm Cedar [place] drug-eluting stent (overlapping with previously placed stent distally and 1-2 mm of stent extending in the aorta) 2. 70% heavily calcified distal left main severe in-stent re-stenosis s/p balloon angioplasty with a 3.5 NC balloon 3. 90% ostial RCA stenosis s/p successful PCI with placement of a 3.0 x 12 mm and 3.0 x 18 mm Cedar Manjit drug-eluting stent. Proximal-mid stent post-dilated to [...] to direct stent. We then advanced a Cedar Manjit 4.5 x 12 mm drug-eluting stent [...] 12 mm and 3.0 x 18 mm Cedar Manjit drug eluting stents in the proximal [...] The patient was transferred back to the skill labor holding area in good condition. Coronary Findings [...] CATH PROCEDURES Sheyla l Result * (ABNORMAL) Hemoglobin A1c (07/07/2019 2:34 [...] <6.0% Children and Adolescents <7.5% . Source: [place] [employer]. Standards of medical care in diabetes, 2017. Diabetes Care.2017:40 (suppl 1):S1-S135. . HbA1c assay performed by an ion-exchange chromatography method that is certified traceable to the DCCT. 07/07/2019 2:34 AM EDT 07/07/2019 2:46 AM EDT Historical Provider LAB BLOOD ORDERABLES Sheyla l Result SUNQUEST from Last 3 Months or Most Recently Relevant to Health Maintenance Insurance [facility] MEDICARE Advance Directives * Full Code [...] updated to appropriate status: Yes Care Teams Senior Medical Transcriptionist Relationship Specialty Start Date End Date Mustapha James MD [address] [place] [id number] PCP - General 09/05/20 Miguel Lamb MD [address] [place] [phone] Referring Physician Interventional Cardiology 08/16/24
[2024-11-29] MEDS: ferumoxytoL 510 MG in 0.9 % SODIUM CHLORIDE 50 ML 268 MG IV (13:41)
[2024-11-29 13:45] VITALS: BP 98/46; PULSE 88; RESP 24; TEMP 36.4; O2SAT 93
[2024-11-29 13:47] LABS: Hematocrit 32.0 % (37.0-47.0); Hemoglobin 9.3 g/dL (12.2-16.2); Immature Granulocytes % 1.2 %; Mean Corpuscular HGB Conc 29.1 g/dL (31.8-35.4); Mean Corpuscular Hemoglobin 28.0 pg (27.0-31.2); Mean Corpuscular Volume 96.4 fl (81-99); Nucleated Red Blood Cells % 0 %; Platelet Count 344 K/mm3 (142-424); Red Blood Count 3.32 M/mm3 (4.20-5.40); Red Cell Distribution Width-SD 61.8 fL; White Blood Count 10.8 K/mm3 (4.8-10.8)
[2024-11-29 14:25] VITALS: BP 99/52; PULSE 94; RESP 20; O2SAT 95
--- NOTE | 2024-11-29 14:35 | CT_ITS ---
FINAL REPORT TECHNIQUE: Axial images were obtained through the chest without contrast. Coronal and sagittal reformatted images were obtained and reviewed. This study was performed with techniques to keep radiation doses as low as reasonably achievable, (ALARA). Individualized dose reduction techniques using automated exposure control or adjustment of mA and/or kV according to the patient's size were employed. CLINICAL HISTORY: FERAHEME, DYSPNEA, HFPEF COMPARISON: 01/05/2023 FINDINGS: CT CHEST WITHOUT CONTRAST The lungs are clear. The heart size is normal. There is moderate vascular calcification of the aortic arch. There is extensive coronary artery calcification. There is no pericardial or pleural effusion. There is a tiny nonobstructing stone in the left collecting system measuring 4 mm in greatest dimension, image 237. There is a linear density in the inferior right upper lobe extending to the right hilum. This is well seen on images 41 through 44 of series 6001. The previously noted spiculated mass in this location is no longer seen. There are a multitude of small ill-defined densities identified in the periphery of the left lung. These densities measure up to 5 mm. Transmission Specialist examples are seen on image 28 of series 2, image 36 of series 2, and image 26 of series 2. Limited images of the upper abdomen are unremarkable. IMPRESSION: Dense linear opacity inferior right upper lobe probably related to some combination of scarring or atelectasis. The previously noted right upper lobe spiculated mass is no longer seen. Multiple small noncalcified nodules in the periphery of the left lung. These could be inflammatory or neoplastic. Follow-up recommended. Reviewed, Interpreted and Dictated by Len Hurtado MD Transcribed by Misty Ortega Authenticated and [facility]
--- NOTE | 2024-11-29 15:30 | CA_ITS ---
APPROVED REPORT EXAM: Comprehensive 2D, Doppler, and color-flow Echocardiogram Engineer Systems: Yari Miranda RT(R) Ht: 5 ft 3 in Wt: 177lbs BSA: 1.84 BP: 100/49 mmHg Indications: HFpEF, dyspnea, aortic stenosis, chest pain 2D Dimensions IVSd 0.96 cm F: 0.6-1.0 LVEF (Fernandez's) 37.90 % F: 54 - 74 PWd 0.86 cm F: 0.6 - 1.0 LV Volume 171.20 mL F: 46 - 106 LVDd 5.06 cm F: 3.9 - 5.3 LV Volume Index 93.0 mL/m2 F: 29 - 61 LA Volume 42.20 mL LA Volume Index 22.93 mL/m2 (M/F) 16-34 EF AP4 39.90 % EF AP2 35.2 % EF BP 37.9 % GL Strain -9.5 % M-Mode Dimensions RVDd 2.79 cm (0.9-2.6) LA Diam 4.47 cm (1.9-4.0) LVDd 5.88 cm (3.5-5.7) LVDs 4.27 cm (3.5-5.7) IVSd 0.80 cm (0.6-1.1) PWd 0.76 cm (0.6-1.1) EF (Teich) 52.50% FS 27.40% EDV (Teich) 171.90 mL TAPSE 1.53 (<1.7) ESV (Teich) 81.70 mL LV Diastology E Decel Time 167 (160-240 msec) E/A Ratio 1.3 Aortic Valve KARISHMA Index 0.49 cm2/m2 AoV Peak Pasha. 329.0 (50-130 cm/s) AO Peak GR. 43.50 mmHg AO Mean GR. 21.30 (<5 mmHg) AO VTI 68.1 (18-25 cm) KARISHMA (VTI) 0.92 (2.5-4.5 cm2) Mitral Valve MV E Max Pasha. 102.0 (40-130 cm/s) MV A Velocity 79.0 (40-130 cm/s) E/A Ratio 1.29 MV PHT 49.0 ms Tricuspid Valve TR P. Velocity 271.00 cm/s Left Ventricle The left ventricle is normal size. Left ventricular systolic function is mildly to moderately reduced. There is increased left ventricular wall thickness. There is mild to moderate global hypokinesis. Grade 1 diastolic dysfunction is present. LVEF is 40% Right Ventricle The right ventricle is normal size. The right ventricular systolic function is normal. Atria The left atrium is moderately dilated. The right atrium is mildly dilated. There is no color Doppler evidence of interatrial shunt. Aortic Valve The aortic valve is moderately thickened. Moderate to severe aortic stenosis is present. KARISHMA by continuity equation is 1.0 cm2. Peak velocity 3.6 m/s. Mean AV gradient 26 mmHg. Max AV gradient 50 mmHg. DI=0.25. SVi=36 ml/m2. Mild aortic regurgitation is present. Mitral Valve Moderate mitral annular calcification. The mitral valve leaflets and papillary chords are thickened. No evidence of mitral valve stenosis. Mean MV gradient 2 mmHg (HR 86 bpm). Moderate mitral regurgitation is present. Tricuspid Valve The tricuspid valve leaflets are thin and pliable. Mild tricuspid regurgitation. RVSP is 20-25 mmHg. Pulmonic Valve The pulmonary valve is grossly normal in structure. Trace pulmonic valve regurgitation is present. Great Vessels The aortic root is normal in size. IVC is normal in size and collapses >50% with inspiration. Pericardium There is no pericardial effusion. Other Information Study Quality: Fair Conclusion Mild to moderate reduction in LV systolic function (LVEF 40%). Biatrial dilation. Moderate to severe (KARISHMA by continuity equation is 1.0 cm2. Peak velocity 3.6 m/s. Mean AV gradient 26 mmHg. Max AV gradient 50 mmHg. DI=0.25. SVi=36 ml/m2). Moderate MR. Mild AI, mild TR. In the setting of known critical coronary artery disease, new reduction in LV systolic function, and moderate to severe , surgical re-evaluation vs. interventional cardiology follow-up is recommended. Electronically signed by : Melody Ray MD 11/30/2024 09:33:59
== END 2024-11-29 14:25 | disposition home or self-care (01) ==
LOC: INF 13:18
PROVIDERS: PCP Family Medicine; Visit Provider Internal Medicine Medical Oncology
DX: I50.30 Unspecified diastolic (congestive) heart failure (principal); I10 Essential (primary) hypertension; I25.10 Atherosclerotic heart disease of native coronary artery without angina pectoris; I35.0 Nonrheumatic aortic (valve) stenosis; R06.09 Other forms of dyspnea; R60.0 Localized edema; D64.9 Anemia, unspecified
CPT/HCPCS: 71250; 85025; 93306; 96374; Q0138

== ENCOUNTER 2024-12-05 13:01 | Outpatient (CLI) | payer MEDICARE, SELFPAY ==
--- OUTSIDE RECORDS SUMMARY | 2024-11-30 11:30 | XMS_ITS | Encounter Summary ---
Author Organization [facility] Address [address] [id number] Care Team Providers Care Program Developer Name Role Phone Mustapha James MD Primary Care Provider [phone] Miguel Lamb MD Unavailable [phone] Reason for Referral * Consultation (Routine) - Authorized Specialty Diagnoses / Procedures Referred By Contac t Referred To Contact Diagnoses Nonrheumatic aortic valve stenosis Janice Avila PA [address] [place] [address] Phone: tel: fax: Referral ID Status Reason Start Date Expiration Date V isits Requested Visits Authorized [id number] Authorized 11/30/2024 06/01/2026 1 1 * Imaging (Routine) - Pending Review Specialty Diagnoses / Procedures Referred By Contac t Referred To Contact Cardiology Diagnoses Nonrheumatic aortic valve stenosis Procedures Echo, Adult Transthoracic Complete Janice Avila PA [address] [place] [address] Phone: tel: fax: Referral ID Status Reason Start Date Expiration Date Visits Requested Visits Authorized [id number] Pending Review Perform Procedure 11/30/2024 06/01/2026 1 1 Reason for Visit * Reason Comments Follow-up Encounter Details Date Type Department Care Team (Late st Contact Info) Description 11/30/2024 11:30 AM EDT Office Visit [facility] [place] [address] [place] [address] Miguel Lamb MD [address] [place] [address] Nonrheumatic aortic valve stenosis (Primary Dx); Coronary artery disease involving [place] ira coronary artery of sh[place] ira heart without angina pectoris; HFrEF (heart failure with reduced ejection fraction) ([facility]) Social History Tobacco Use Types Packs/Day Years [...] August. She was seen by her primary ethylbenzene cracking supervisor and medications were adjusted, but she reports minimal improvement in edema and symptoms. She had an echo yesterday to re-evaluate her aortic stenosis. 08/30/24 1. 90% ostial left main stenosis s/p successful PCI with placement of a 4.5 x 15 mm Pima Livermore drug-eluting stent (overlapping with previously placed stent distally and 1-2 mm of stent extending in the aorta) 2. 70% heavily calcified distal left main severe in-stent re-stenosis s/p balloon angioplasty with a 3.5 NC balloon 3. 90% ostial RCA stenosis s/p successful PCI with placement of a 3.0 x 12 mm and 3.0 x 18 mm Pima Manjit drug-eluting stent. Proximal-mid stent post- dilated [...] 26 mm and 2.75 x 30 mm Pima Livermore drug-eluting stents (proximal-distal). Review of Systems 14 [...] HFrEF (heart failure with reduced ejection fraction) ([facility]) Nonrheumatic aortic valve stenosis - Primary Relevant Orders Echo, Adult Transthoracic Complete Follow Up Cardiology #CAD #HFrEF #Aortic Stenosis --Echo from OSH completed yesterday reviewed by Dr. Lamb showing reduced LV function with moderate aortic stenosis --Patient admits to increasing shortness of breath and edema --Valve does not appear ready for intervention on most recent echo --Continue to follow with general ethylbenzene cracking supervisor for medical management of symptoms --Continue DAPT after extensive coronary work in August 2024 Continue following with general ethylbenzene cracking supervisor, follow-up in 1 year with echo prior. I spent 35 minutes performing the following components of the encounter (on the day of the encounter): reviewing History, examining the patient, reviewing imaging and/or labs, Independently interpreting echocardiogram, ECG and/or other imaging results, counseling the patient and family/caregiver, communicating with other health rn progressive care unit, and entering clinical information in the EHR. [...] Administer 1 spray into each nostril daily. Gqugotcbqst-Ujdqvhxyy-Crjhpi (Trelegy Ellipta) 100-62.5-25 MCG/ACT aerosol powder Inhale. HYDROcodone-acetaminophen ([place]) 7.5-325 MG tablet Take 1 tablet by [...] documented in this encounter Plan of Treatment Scheduled Orders Name Type Priority Associated Diagnoses [...] valve stenosis- Primary Coronary artery disease involving sh[place] ira coronary artery of sh[place] ira heart without angina pectoris HFrEF (heart failure with reduced ejection fraction) ([facility]) documented in this encounter Additional Health Concerns Assessment Noted Time PHQ-9 Depression Total Score: 0 07/21/19 11:35 AM EDT A fall risk assessment has been complete d for the patient 11/30/2024 10:54 AM EDT A Body Mass Index follow-up plan has been documented for the patient 11/30/2024 11:54 AM EDT documented as of this encounter Care Teams Program Developer Relationship Specialty Start Date End Date Mustapha James MD [address] [place] [address] PCP - General 09/05/20 Miguel Lamb MD [address] [place] [address] Referring Physician Interventional Cardiology 08/16/24 documented as of this encounter
--- OUTSIDE RECORDS SUMMARY | 2024-12-05 13:05 | XMS_ITS | Encounter Summary ---
Author Organization [facility] Address [address] [place] [address] Care Team Providers Care Commutator Repairer Name Role Phone Mustapha James MD Primary Care Provider + Reason for Visit * Reason Comments Med Refill Encounter Details Date Type Department Care Team (Late st Contact Info) Description 11/28/2024 Refill [facility] [address] [place] [address] Mustapha James MD [address] [place] [address] Acquired hypothyroidism Social History Tobacco [...] Team (Late st Contact Info) Description 12/06/2024 6:05 AM EDT Hospital Encounter [facility] [address] [facility] [address] [place] [address] Arrived 12/06/2024 2:00 PM EDT Office Visit [facility] [address] [place] [address] Chirag Mckee MD [address] [place] [address] 12/27/2024 2:00 PM EDT Office Visit [facility] [address] [facility] [place] [address] Mustapha James MD [address] [place] [address] documented as of this encounter Visit Diagnoses Diagnosis Acquired hypothyroidism Unspecified hypothyroidism documented in this encounter Additional Health Concerns Assessment Noted Time PHQ-2 Depression Total Score: 1 10/24/19 24 2:19 PM EDT documented as of this encounter Care Teams Commutator Repairer Relationship Specialty Start Date End Date Mustapha James MD [address] [place] [address] PCP - General Family Medicine 01/02/24 documented as of this encounter
--- OUTSIDE RECORDS SUMMARY | 2024-12-05 13:05 | XMS_ITS | Encounter Summary ---
Author Organization [facility] Address [address] [place] [address] Care Team Providers Care Filter Press Supervisor Name Role Phone Mustapha James MD Primary Care Provider + Encounter Details Date Type Department Care Team (Late st Contact Info) Description 12/03/2024 Documentation [facility] [address] [place] [address] Bertha Ambrose, PATRICIA Social History Tobacco Use Types Packs/Day Years [...] as of this encounter Progress Notes * Bertha Ambrose RN - 12/03/2024 4:00 PM EDT RADIATION ONCOLOGY PROGRESS NOTE 12/03/24 Correction on date for appointment with Dr. Mckee pt was told 12/06/2024 @ 2pm. documented in this encounter Plan of Treatment Upcoming Encounters Date Type Department Care Team (Late st Contact Info) Description 12/06/2024 6:05 AM EDT Hospital Encounter [facility] [address] [address] Arrived 12/06/2024 2:00 PM EDT Office Visit [facility] [address] [place] [address] Chirag Mckee MD [address] [place] [address] 12/27/2024 2:00 PM EDT Office Visit [facility] [address] [facility] [place] [phone] Mustapha James MD [address] [address] documented as of this encounter Visit Diagnoses Not on filedocumented in this encounter Additional Health Concerns Assessment Noted Time PHQ-2 Depression Total Score: 1 10/24/19 24 2:19 PM EDT documented as of this encounter Care Teams Filter Press Supervisor Relationship Specialty Start Date End Date Mustapha James MD [address] [place] [address] PCP - General Family Medicine 01/02/24 documented as of this encounter
--- OUTSIDE RECORDS SUMMARY | 2024-12-05 13:05 | XMS_ITS | Encounter Summary ---
Author Organization [facility] Address [address] [place] [address] Care Team Providers Care Rn Building Name Role Phone Mustapha James MD Primary Care Provider + Encounter Details Date Type Department Care Team (Late st Contact Info) Description 12/03/2024 Telephone [facility] [address] [place] [address] Bertha Ambrose, PATRICIA Social History [...] encounter Miscellaneous Notes * Telephone Encounter - Bertha Ambrose RN - 12/03/2024 3:51 PM EDT Pt called to confirm appointment with Dr. Mckee on 12/09 @ 2pm [address] [facility] documented in this encounter Plan of Treatment Upcoming Encounters Date Type Department Care Team (Late st Contact Info) Description 12/06/2024 6:05 AM EDT Hospital Encounter [facility] [address] [address] Arrived 12/06/2024 2:00 PM EDT Office Visit [facility] [address] [place] [address] Chirag Mckee MD [address] [place] [address] 12/27/2024 2:00 PM EDT Office Visit [facility] [address] [facility] [place] [phone] Mustapha James MD [address] [facility] [place] [address] documented as of this encounter Visit Diagnoses Not on filedocumented in this encounter Additional Health Concerns Assessment Noted Time PHQ-2 Depression Total Score: 1 10/24/19 2:19 PM EDT documented as of this encounter Care Teams Rn Building Relationship Specialty Start Date End Date Mustapha James MD [address] [place] [address] PCP - General Family Medicine 01/02/24 documented as of this encounter
--- OUTSIDE RECORDS SUMMARY | 2024-12-05 13:05 | XMS_ITS | Encounter Summary ---
Author Organization [facility] Address [address] [place] [address] Care Team Providers Care Marketing Operations Assistant Name Role Phone Mustapha James MD Primary Care Provider + Encounter Details Date Type Department Care Team (Late st Contact Info) Description 11/21/2024 Documentation [facility] [address] [facility] [address] [place] [address] Lauren Velasco, DON Social History [...] assist with getting pt to scan in [place]. Ptreported if she can get her CT Scan at [facility], she has someone that can assist with transport. PEARL confirmed with RN this is possible, and that we will work on scheduling it. Pt thanked PEARL and will look out for call with schedule. documented in this encounter Plan of Treatment Upcoming Encounters Date Type Department Care Team (Late st Contact Info) Description 12/06/2024 6:05 AM EDT Hospital Encounter [facility] [address] [facility] [address] [phone] Arrived 12/06/2024 2:00 PM EDT Office Visit [facility] [address] [place] [address] Chirag Mckee MD [address] [place] [address] 12/27/2024 2:00 PM EDT Office Visit [facility] [address] [facility] [place] [address] Mustapha James MD [address] [place] [address] documented as of this encounter Visit Diagnoses Not on filedocumented in this encounter Additional Health Concerns Assessment Noted Time PHQ-2 Depression Total Score: 1 10/24/19 24 2:19 PM EDT documented as of this encounter Care Teams Marketing Operations Assistant Relationship Specialty Start Date End Date Mustapha James MD [address] [place] [address] PCP - General Family Medicine 01/02/24 documented as of this encounter
--- OUTSIDE RECORDS SUMMARY | 2024-12-05 13:06 | XMS_ITS | Encounter Summary ---
Author Organization [employer] ([place], [place], [place], [place]) Address [address] [place] [address] Care Team Providers Care Partner Management Consultant Name Role Phone Unavailable Primary Care Provider Unavailabl e Encounter Details Date Type Department Care Team (Late st Contact Info) Description 03/14/[address] [facility] Family Medicine [facility] [place] [address] ProviderRegina MD [facility] [place] [address] Social History Tobacco Use Types [...] - Regina ProviderMD - 03/14/2019 12:37 PM CONFERENCE SPECIALIST [facility] Main OR IntraOp Summary Primary Physician: TONY PEÑA MD-SUR Finalized Date/Time: 03/15/19 11:29:27 Pt. Name: JODI GTZ SRIRAM Reynolds/Sex: 1955 Female Med Rec #: [id number] Physician: TONY PEÑA MD-SUR Financial #: [id number] Pt. Type: O Room/Bed: Admit/Disch: 03/14/19 09:48:00 - 03/14/19 17:30:00 Institution: [facility] IntraOp Case Attendance Entry 1 Entry 2 Entry 3 Case Attendee TONY PEÑA MD-SUR CALDWELL, JOSEPH A, CRNA BOWEN, JON B, MD-ANS Role Performed Surgeon/Proceduralist, AMMUNITION ASSEMBLY II LABORER/Nurse Functional Skills Tutor Anesthesiologist First Time In 03/14/19 12:18:00 03/14/19 [...] KIERSTEN KHALIL, Gia Liu, Coco Hagan, Cardiovascular Cash Management Associate Role Performed Upper Cutter Machine, First Upper Cutter Machine, Second Cash Management Associate Time In 03/14/19 12:18:00 03/14/19 12:18:00 03/14/19 12:18:00 Time Out 03/14/19 14:07:00 03/14/19 14:07:00 03/14/19 14:07:00 Procedure Aortogram Abdominal Aortogram Abdominal Aortogram Abdominal with Runoff(Left) with Runoff(Left) with Runoff(Left) Other Attendee Superficial Wound Closed By: Last Modified By: Gia Armendariz RN Duncan, Richelle, Gia Liu RN 03/14/19 14:07:56 03/14/19 14:07:56 03/14/19 14:07:56 Entry 7 Case Attendee Mayra Castrejon [employer] Role Performed Cash Management Associate Time In 03/14/19 12:18:00 Time Out 03/14/19 14:07:00 Procedure Aortogram Abdominal with Runoff(Left) Other Attendee Superficial Wound Closed By: Last Modified By: Gia Armendariz RN 03/14/19 14:07:56 [facility] IntraOp Case Attendance Audit 03/14/19 14:07:56 Canine Service Instructor Trainer: [id number] Modifier: [id number] 1 <+> Time Out 1 <*> Procedure [...] Procedure Aortogram Abdominal with Runoff(Left) 03/14/19 13:11:30 Canine Service Instructor Trainer: [id number] Modifier: [id number] 1 <*> Procedure Aortogram Abdominal with Runoff(Left) 2 <*> Procedure Aortogram Abdominal with Runoff(Left) 3 <*> Procedure Aortogram Abdominal with Runoff(Left) 4 <*> Procedure Aortogram Abdominal with Runoff(Left) 5 <*> Procedure Aortogram Abdominal with Runoff(Left) 6 <+> Time In 6 <*> Procedure Aortogram Abdominal with Runoff(Left) 7 <+> Time In 7 <*> Procedure Aortogram Abdominal with Runoff(Left) 03/14/19 12:47:49 Canine Service Instructor Trainer: [id number] Modifier: [id number] <+> 6 Case Attendee <+> 6 Role Performed <+> 6 Procedure <+> 7 Case Attendee <+> 7 Role Performed <+> 7 Procedure 03/14/19 12:46:19 Canine Service Instructor Trainer: [id number] Modifier: [id number] <+> 1 Procedure 2 <*> Procedure Aortogram Abdominal with Runoff(Left) 3 <+> Time In 3 <*> Procedure Aortogram Abdominal with Runoff(Left) 4 <+> Time In 4 <*> Procedure Aortogram Abdominal with Runoff(Left) 5 <+> Time In 5 <*> Procedure Aortogram Abdominal with Runoff(Left) 03/14/19 12:45:34 Canine Service Instructor Trainer: [id number] Modifier: [id number] 2 <+> Time In 2 <*> Procedure Aortogram Abdominal with Runoff(Left) <+> 3 Case Attendee <+> 3 Role Performed <+> 3 Procedure <+> 4 Case Attendee <+> 4 Role Performed <+> 4 Procedure <+> 5 Case Attendee <+> 5 Role Performed <+> 5 Procedure [facility] IntraOp Case Times Entry 1 Patient In Room Time 03/14/19 12:18:00 Out Room Time 03/14/19 14:07:00 Anesthesia Start Time 03/14/19 12:18:00 Stop Time 03/14/19 14:07:00 Anesthesia Ready 03/14/19 12:18:00 Surgery / Procedure Times Start Time 03/14/19 12:37:00 Stop Time 03/14/19 14:01:00 Last Modified By: Gia Armendariz RN 03/14/19 12:39:43 [facility] IntraOp Case Times Audit 03/14/19 14:07:55 Canine Service Instructor Trainer: [id number] Modifier: [id number] <+> 1 Out Room Time <+> 1 Stop Time <+> 1 Stop Time [facility] IntraOp Communication Entry 1 Entry 2 Communication To Family/Significant other Family/Significant other Comment START UPDATE Communication By Gia Armendariz RN Duncan, Richelle, RN Date and Time 03/14/19 12:45:00 03/14/19 13:49:00 Last Modified By: Gia Armendariz RN Duncan, Richelle, RN 03/14/19 12:48:01 03/14/19 13:50:06 [facility] IntraOp Communication Audit 03/14/19 13:50:06 Canine Service Instructor Trainer: [id number] Modifier: [id number] <+> 2 Communication By <+> 2 Date and Time <+> 2 Communication To <+> 2 Comment [facility] IntraOp Departure from OR Entry 1 Integumentary Assessment Integumentary WDL Assessment WDL Transfer/Handoff Transfer to Other Handoff Method Phone call Post-op Transport [facility] [facility] Patient Transport JACKIE BLANTON MD-ANS, Accompanied by EVERETT FREED CRNA, RESULTAY, JOSEFINA, RN Transfer/Handoff PT TRANSPORTED TO [facility], PT STABLE Last Modified By: Gia Armendariz RN 03/14/19 12:48:40 [facility] IntraOp Dressing and Packing Entry 1 Type Dressing Location OPSITE Wound Dressing Item 4x4's Applied By TONY PEÑA MD-JESUS Other Comments COVADERM Last Modified By: Gia Armendariz RN 03/14/19 12:48:56 [facility] IntraOp Fire Risk Assessment Entry [...] Modified By: Gia Armendariz RN 03/14/19 12:49:12 [facility] IntraOp General Case Optical Lathe Operator 1 Case Information OR OR 20 [facility] Case Level 1 Room Verified Yes Wound Class I - Clean Specialty SN General Anesthesia Type MAC ASA Class 3 Diagnosis Preop Diagnosis BILATERAL CLAUDICATION Postop Same As Preop Yes Postop Diagnosis BILATERAL CLAUDICATION Last Modified By: Gia Armendariz RN 03/14/19 13:06:23 [facility] IntraOp General Case Data Audit 03/14/19 13:07:04 Canine Service Instructor Trainer: [id number] Modifier: [id number] 1 <*> Preop Diagnosis RIGHT ILIAC ARTERY OCCLUSION 1 <*> Postop Diagnosis RIGHT ILIAC ARTERY OCCLUSION 03/14/19 13:06:23 Canine Service Instructor Trainer: [id number] Modifier: [id number] <+> 1 ASA Class <+> 1 Anesthesia Type <+> 1 Postop Same As Preop <+> 1 Preop Diagnosis <+> 1 Postop Diagnosis <+> 1 Room Verified [facility] IntraOp Implant Log Entry 1 Entry 2 Type Implant (Synthetic) Implant (Synthetic) Implant Log Implant Type Other Tissue Implant Type Implant DEVICE MYNX ACCOUNT ASSOCIATE 6F/ 7F STENT VASC LS 5F 135cm Identification [id number] Description Implant Quantity 1 1 Implant Site LEFT GROIN LEFT SFA Implant Identification Model Number Implant Identification Serial Number Implant [id number] Identification Lot Number Implant Access Closure Cr Bard:Peripheral Vasc Identification Drawstring Knotter Name: Implant [id number] Identification Catalog Number Implant Size Implant Has an Yes Yes Expiration Date Implant Expiration 01/22/21 08/18/20 Date Wasted Radioactive Material Time Implanted Tissue Implant Continue for Tissue Implant Documentation Tissue Identification Number Graft Prep Per Drawstring Knotter Instructions: Tissue Preparation Method: Reconstitution Solution: Reconstitution Solution Lot Number Reconstitution Solution Expiration Date: Thawing Solution Thawing Solution Lot Number Thawing Solution Expiration Date Preparation Materials, Other Preparation Materials, Other Lot Number Preparation Materials, Other Expiration Date Tissue Prepared/Processed By Drawstring Knotter Paperwork Completed Implant Type Comment Last Modified By: Gia Armendariz RN Duncan, Richelle, RN 03/14/19 13:46:31 03/14/19 13:48:58 [facility] IntraOp Implant Log Audit 03/14/19 13:48:58 Canine Service Instructor Trainer: [id number] Modifier: [id number] <+> 2 Implant Identification Description <+> 2 Implant Identification Lot Number <+> 2 Implant Identification Drawstring Knotter Name: <+> 2 Implant Expiration Date <+> 2 Implant Site <+> 2 Implant Quantity <+> 2 Implant Identification Catalog Number <+> 2 Implant Has an Expiration Date <+> 2 Type [facility] IntraOp Intraoperative Assessment Entry 1 [...] Modified By: Gia Armendariz RN 03/14/19 13:07:39 [facility] IntraOp Intraoperative Equipment Entry 1 Equipment Intraop Monitoring Electrocardiogram Three lead placement (ECG) Electrode Placement Blood Pressure Non-Invasive BP Device Source Blood Pressure Arm, right upper Location Pulse Oximeter Hand, left Probe Site Antiembolic Devices Scopes Photo/Video Documentation Last Modified By: Gia Armendariz RN 03/14/19 13:08:03 [facility] IntraOp Medication Admin Entry 1 [...] Duncan, Richelle, RN 03/14/19 13:10:57 03/14/19 13:10:57 [facility] IntraOp Medication Admin Audit 03/14/19 13:58:22 Canine Service Instructor Trainer: [id number] Modifier: [id number] 1 <*> Dose 50 [facility] IntraOp Patient Positioning Entry 1 [...] Modified By: Gia Armendariz RN 03/14/19 13:11:17 [facility] IntraOp Sign In Entry 1 [...] Modified By: Gia Armendariz RN 03/14/19 13:11:29 [facility] IntraOp Sign Out Entry 1 [...] Modified By: Gia Armendariz RN 03/14/19 13:11:49 [facility] IntraOp Sign Out Audit 03/14/19 14:01:07 Canine Service Instructor Trainer: [id number] Modifier: [id number] <+> 1 Sign Out Comment <+> 1 RN Sign Out Signature Date/Time [facility] IntraOp Skin Prep Entry 1 Procedure Aortogram Abdominal with Runoff(Left) Prescribed N/A Pre-Surgical Prep Completed Prep Area LEFT ARM AND HAND TO AXILLA, BILATERAL GROINS, LEFT FOOT Intraop Prep Integumentary WDL Assessment WDL Prep Agents Chloraprep Prep by Gia Armendariz RN Hair Removal Methods No hair removal performed Last Modified By: Gia Armendariz RN 03/14/19 13:12:51 [facility] IntraOp Skin Prep Audit 03/14/19 13:29:16 Canine Service Instructor Trainer: [id number] Modifier: [id number] 1 <*> Prep Area LEFT ARM AND HAND TO AXILLA, BILATERAL GROINS 1 <*> Procedure Aortogram Abdominal with Runoff(Left) [facility] IntraOp Surgical Procedures Entry 1 [...] LEFT SUPERFICIAL FEMORAL ARTERY ANGIOPLASTY AND STENTING [facility] Intra Surgical Procedures Audit 03/14/19 14:07:58 Canine Service Instructor Trainer: [id number] Modifier: [id number] 1 <*> Stop 03/14/19 13:37:02 Canine Service Instructor Trainer: [id number] Modifier: [id number] 1 <*> Procedure Aortogram Abdominal with Runoff [...] L ACCESS W/ ULTRASOUND ACCESS 03/14/19 13:28:04 Canine Service Instructor Trainer: [id number] Modifier: [id number] 1 <*> Procedure Aortogram Abdominal with Runoff 1 <*> Additional Procedure Description LEFT RADIAL ACCESS UNDER ULTRASOUND GUIDANCE WITH LEFT UPPER EXTREMITY ANGIOGRAM, CATHETER PLACEMENT WITHIN AORTA; LEFT ACCESS UNDER ULTRASOUND GUIDANCE WITH [facility] IntraOP Time Out Entry 1 [...] Modified By: Gia Armendariz, RN 03/14/19 13:16:01 [facility] IntraOp X-Ray and Images Entry 1 X-Ray/Imaging Type Fluoroscopy Fluoroscopy Type Fixed Site OPSITE Airplane First Officer Name Coco Pfeiffer, Cardiovascular Cash Management Associate Protective Devices Yes Used Exposure Time 6.6 MIN Last Modified By: Gia Armendariz RN 03/14/19 13:54:17 [facility] IntraOp X-Ray and Images Audit 03/14/19 13:54:17 Canine Service Instructor Trainer: [id number] Modifier: [id number] <+> 1 Exposure Time Case Comments <None> Finalized By: JONY MATHEW Document Signatures Signed By: Gia Armendariz RN 03/14/19 14:08 JONY MATHEW 03/15/19 11:29 Unfinalized History Date/Time Username Reason for Unfinalizing Freetext Reason for Unfinalizing 03/15/19 11:24 WATIRINEODR Correct Billing Electronically signed by Clay Arevalo Conversion Outside Physical Damage Appraiser Cerner at 08/13/2022 11:11 AM CDT documented in this encounter Plan of Treatment Not on file documented as of this encounter Visit Diagnoses Not on filedocumented in this encounter
--- OUTSIDE RECORDS SUMMARY | 2024-12-05 13:06 | XMS_ITS | Encounter Summary ---
Author Organization [employer] ([place], [place], [place], [place]) Address [address] [place] [address] Care Team Providers Care Freelance Director Name Role Phone Unavailable Primary Care Provider Unavailabl e Encounter Details Date Type Department Care Team (Late st Contact Info) Description 03/14/2019 Transcribed Document [facility] Family Medicine [facility] [place] [address] ProviderRegina MD [address] [place] [address] Social History Tobacco Use Types Packs/Day Years Used Date Smoking Tobacco: Never Assessed Comments Unknown Sex and Gender Information Value Date Recorded Sex Assigned at Not on file Legal Sex Female 5:00 PM CDT Gender Identity Not on file Sexual Orientation Not on file documented as of this encounter Miscellaneous Notes * Cerner Conversion Note - Regina ProviderMD - 03/14/2019 12:37 PM [employer] [facility] Main OR Preop Summary Primary Physician: TONY PEÑA MD-SUR Finalized Date/Time: 03/14/19 13:13:44 Pt. Name: THOMAS GTZ SRIRAM Reynolds/Sex: 1955 Female Med Rec #: [id number] Physician: TONY PEÑA MD-SUR Financial #: [id number] Pt. Type: O Room/Bed: Admit/Disch: 03/14/19 09:48:00 - Institution: [facility] PreOp Case Times Entry 1 In Preop 03/14/19 10:14:00 Ready for Holding n/a Room Patient Ready for 03/14/19 11:25:00 Surgery Patient Out of Preop 03/14/19 12:14:00 Patient Out of n/a Holding Room Last Modified By: Susie Hernández, RN 03/14/19 13:13:43 [facility] PreOp Case Times Audit 03/14/19 13:13:43 Measurement And Verification Engineer: [id number] Modifier: [email or web address] <+> 1 Patient Out of Preop 03/14/19 11:25:55 Measurement And Verification Engineer: [email or web address] Modifier: [email or web address] <+> 1 Patient Ready for Surgery Finalized By: Susie Hernández RN Document Signatures Signed By: Susie Hernández RN 03/14/19 13:13 Electronically signed by Mickey [facility] Conversion Concrete Pipe Plant Supervisor Cerner at 08/13/2022 11:17 AM CDT documented in this encounter Plan of Treatment Not on file documented as of this encounter Visit Diagnoses Not on filedocumented in this encounter
--- OUTSIDE RECORDS SUMMARY | 2024-12-05 13:06 | XMS_ITS | Encounter Summary ---
Author Organization [facility] Address [address] [place] [address] Care Team Providers Care Restaurant Server Name Role Phone Mustapha James MD Primary Care Provider + Reason for Visit * Reason Comments Med Refill Encounter Details Date Type Department Care Team (Late st Contact Info) Description 10/31/2024 Refill [facility] [address] [place] [address] Mustapha James MD [address] [place] [address] Social History Tobacco Use Types [...] Description 12/06/2024 6:05 AM EDT Hospital Encounter [facility] [address] [facility] [address] [place] [address] Arrived 12/06/2024 2:00 PM EDT Office Visit [facility] [address] [place] [address] Chirag Mckee MD [address] [place] [address] 12/27/2024 2:00 PM EDT Office Visit [facility] [address] [place] [id number] Mustapha James MD [address] [place] [address] documented as of this encounter Visit Diagnoses Not on filedocumented in this encounter Additional Health Concerns Assessment Noted Time PHQ-2 Depression Total Score: 1 10/24/19 24 2:19 PM EDT documented as of this encounter Care Teams Restaurant Server Relationship Specialty Start Date End Date Mustapha James MD [address] [place] [address] PCP - General Family Medicine 01/02/24 documented as of this encounter
--- OUTSIDE RECORDS SUMMARY | 2024-12-05 13:06 | XMS_ITS | Encounter Summary ---
Author Organization [facility] Address [address] [place] [address] Care Team Providers Care Flatbed Company Driver Name Role Phone Mustapha James MD Primary Care Provider + Reason for Visit * Reason Comments Med Refill Encounter Details Date Type Department Care Team (Late st Contact Info) Description 11/02/2024 Refill [facility] [address] [place] [address] Mustapha James MD [address] [place] [address] Failed back syndrome of lumbar [...] Description 12/06/2024 6:05 AM EDT Hospital Encounter [facility] [address] [facility] [address] [place] [address] Arrived 12/06/2024 2:00 PM EDT Office Visit [facility] [address] [place] [address] Chirag Mckee MD [address] [place] [address] 12/27/2024 2:00 PM EDT Office Visit [facility] [address] [place] [address] Mustapha James MD [address] [facility] [place], [place] [id number] documented as of this encounter Visit Diagnoses Diagnosis 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
--- OUTSIDE RECORDS SUMMARY | 2024-12-05 13:06 | XMS_ITS | Encounter Summary ---
Author Organization [employer] ([place], [place], [place], [place]) Address [address] [place] [address] Care Team Providers Care Director Of Leadership Development Name Role Phone Unavailable Primary Care Provider Unavailabl e Encounter Details Date Type Department Care Team (Late st Contact Info) Description 03/14/2019 Transcribed Document [facility] [address] [place] [address] ProviderRegina MD [facility] [place], [place] [address] Social History Tobacco Use Types Packs/Day Years [...] 03/14/2019 16:16 EST Electronically signed by Mickey [facility] Conversion Pot Reliner Cerner at 08/13/2022 11:21 AM CDT documented in this encounter Plan of Treatment Not on file documented as of this encounter Visit Diagnoses Not on filedocumented in this encounter
--- OUTSIDE RECORDS SUMMARY | 2024-12-05 13:06 | XMS_ITS | Encounter Summary ---
Author Organization [employer] ([place], [place], [place], [place]) Address [address] [place] [address] Care Team Providers Care Cooperative Extension Agent Name Role Phone Unavailable Primary Care Provider Unavailabl e Encounter Details Date Type Department Care Team (Late st Contact Info) Description 02/12/2019 Transcribed Document [facility] Radiology [address] [place] [address] Martinez Miller MD [address] [facility] [place] [address] Social History Tobacco Use Types Packs/Day Years [...] with large thigh collaterals with reconstitution of yhksy-wqd-[id number] popliteal artery. 3. Recanalization of occluded right common iliac artery and placement of an 8 x 38 [employer] within the proximal right common with a kissing 8 x 27 left common iliac artery stent. 4. Distal right common iliac artery was treated with an 8 x 38 stent, and right external iliac artery occlusion was treated with a 7 x 39 [place] VBX. OPERATIVE DESCRIPTION: The patient was taken back to the operating room, placed in a supine on the operating room table. Following IV sedation, bilateral groins were widely prepped and draped in a standard sterile fashion. Time-out was taken. Under ultrasound guidance, left common femoral artery was accessed with a Micropuncture needle. A 5-Venezuelan sheath was placed. Flush catheter was advanced [...] with snare technique was used and a 7-[place] sheath was advanced into the [place] aorta from the right femoral artery to [...] was treated with a 7 x 39 [place] VBX stent. Excellent results were achieved upon completion. Normal pulsatile flow was present within the right common femoral artery. Mynx closure device was used bilaterally. The patient was then taken back to Recovery in stable condition. No complications. /[id number] MD FARHAN NguyenA/BRIANNA / NNA / MODL /[id number] documented in this encounter Plan of Treatment Not on file documented as of this encounter Visit Diagnoses Not on filedocumented in this encounter
--- OUTSIDE RECORDS SUMMARY | 2024-12-05 13:06 | XMS_ITS | Encounter Summary ---
Author Organization [employer] ([place], [place], [place], [place]) Address [address] [place] [address] Care Team Providers Care General Service Technician Name Role Phone Unavailable Primary Care Provider Unavailabl e Encounter Details Date Type Department Care Team (Late st Contact Info) Description 02/12/2019 Transcribed Document [facility] [place] Family Medicine [facility] [place] [address] ProviderRegina MD [facility] [place] [address] Social History Tobacco Use Types [...] Regina ProviderMD - 02/12/2019 2:12 PM CDT [facility] Main OR IntraOp Summary Primary Physician: TONY PEÑA MD-SUR Finalized Date/Time: 02/13/19 11:43:16 Pt. Name: JODI GTZ SRIRAM Reynolds/Sex: 1955 Female Med Rec #: [id number] Physician: TONY PEÑA MD-SUR Financial #: [id number] Pt. Type: O Room/Bed: /11 Admit/Disch: 02/12/19 09:27:00 - 02/12/19 18:10:00 Institution: [facility] IntraOp Case Attendance Entry 1 Entry 2 Entry 3 Case Attendee TONY PEÑA MD-SUR Napier, Elizabeth A, RN Murphy, Whitney, [employer] Role Performed Surgeon/Proceduralist, Purse Seining Hand, First Wood Gluer First Time In 02/12/19 13:51:00 02/12/19 13:51:00 [...] CALDWELL, JOSEPH A, ROMARIO COWAN MD-ANS Cardiovascular Wood Gluer Role Performed Wood Gluer CONTINUOUS IMPROVEMENT COORDINATOR/Nurse Agricultural Technical Officer Anesthesiologist of Record Time In 02/12/19 13:51:00 [...] Lexus Linda, Martha Zamora RN Role Performed Purse Seining Hand, First Purse Seining Hand, Second Time In 02/12/19 14:55:00 02/12/19 13:51:00 Time Out 02/12/19 15:09:00 02/12/19 15:09:00 Procedure Aortogram Abdominal Aortogram Abdominal with Runoff(Right), with Runoff(Right), Arterial Stent Arterial Stent Endovascular(Right) Endovascular(Right) Other Attendee Superficial Wound Closed By: Last Modified By: Lexus Linda, Rn Adilene Dhillon RN 02/12/19 15:50:49 02/13/19 07:01:08 [facility] IntraOp Case Attendance Audit 02/13/19 07:01:21 Repeat Photocomposing Machine Operator: JONN Modifier: EANAPIER 8 <*> Procedure Aortogram Abdominal with Runoff(Right), Arterial Stent Endovascular(Right) 02/13/19 07:01:08 Repeat Photocomposing Machine Operator: JONN Modifier: EANAPIER 1 <*> Procedure Aortogram [...] with Runoff(Right), Arterial Stent Endovascular(Right) 02/13/19 07:01:03 Repeat Photocomposing Machine Operator: MEDARDO Modifier: EANAPIER 2 <*> Time Out 02/12/19 15:09:00 2 <*> Procedure Aortogram Abdominal with Runoff(Right), Arterial Stent Endovascular(Right) <+> 8 Case Attendee <+> 8 Role Performed <+> 8 Procedure 02/12/19 15:53:28 Repeat Photocomposing Machine Operator: SUSANSLOAN Modifier: SUSANSLOAN 7 <*> Time In 02/12/19 15:55:00 7 <*> Procedure Aortogram Abdominal with Runoff(Right), Arterial Stent Endovascular(Right) 02/12/19 15:51:08 Repeat Photocomposing Machine Operator: SUSANSLOAN Modifier: SUSANSLOAN 7 <*> Procedure Arterial Stent Endovascular(Right) 02/12/19 15:50:49 Repeat Photocomposing Machine Operator: SUSANSLOAN Modifier: SUSANSLOAN 7 <*> Time Out 02/12/19 15:48:00 7 <*> Procedure Arterial Stent Endovascular(Right) 02/12/19 15:50:15 Repeat Photocomposing Machine Operator: SUSANSLOAN Modifier: SUSANSLOAN 7 <+> Role Performed 7 <*> Procedure Arterial Stent Endovascular(Right) 02/12/19 15:49:22 Repeat Photocomposing Machine Operator: EANAPIER Modifier: SUSANSLOAN 1 <+> Time Out [...] Time Out <+> 7 Procedure 02/12/19 14:50:28 Repeat Photocomposing Machine Operator: EANAPIER Modifier: EANAPIER 1 <*> Procedure Aortogram Abdominal with Runoff(Right) 2 <*> Procedure Aortogram Abdominal with Runoff(Right) 3 <*> Procedure Aortogram Abdominal with Runoff(Right) 4 <*> Procedure Aortogram Abdominal with Runoff(Right) 5 <*> Procedure Aortogram Abdominal with Runoff(Right) 6 <*> Procedure Aortogram Abdominal with Runoff(Right) 02/12/19 14:30:54 Repeat Photocomposing Machine Operator: EANAPIER Modifier: EANAPIER 1 <*> Procedure Aortogram Abdominal with Runoff(Right) 2 <*> Procedure Aortogram Abdominal with Runoff(Right) 3 <*> Procedure Aortogram Abdominal with Runoff(Right) 4 <*> Procedure Aortogram Abdominal with Runoff(Right) 5 <*> Procedure Aortogram Abdominal with Runoff(Right) 6 <+> Time In 6 <*> Procedure Aortogram Abdominal with Runoff(Right) 02/12/19 14:24:03 Repeat Photocomposing Machine Operator: EANAPIER Modifier: EANAPIER 1 <*> Case Attendee TONY PEÑA MD-JESUS 1 <*> Role Performed Surgeon/Proceduralist, First 1 <*> Time In 02/12/19 13:51:00 1 <*> Procedure Aortogram Abdominal with Runoff(Right) 2 <*> Case Attendee Adilene Dhillon RN 2 <*> Role Performed Purse Seining Hand, First 2 <*> Time In 02/12/19 13:51:00 2 <*> Procedure Aortogram Abdominal with Runoff(Right) 3 <*> Case Attendee Mayra Castrejon, RadTech 3 <*> Role Performed Wood Gluer 3 <*> Time In 02/12/19 13:51:00 3 <*> Procedure Aortogram Abdominal with Runoff(Right) 4 <*> Case Attendee Coco Pfeiffer, Cardiovascular Wood Gluer 4 <*> Role Performed Wood Gluer 4 <*> Time In 02/12/19 13:51:00 4 <*> Procedure Aortogram Abdominal with Runoff(Right) 5 <*> Case Attendee EVERETT FREED CONTINUOUS IMPROVEMENT COORDINATOR 5 <*> Role Performed CONTINUOUS IMPROVEMENT COORDINATOR/Nurse Agricultural Technical Officer 5 <*> Time In 02/12/19 13:51:00 5 <*> Procedure Aortogram Abdominal with Runoff(Right) Entry 6 was deleted. Higher numbered entries shifted one position to fill the gap. <-> 6 Case Attendee MUSTAPHA DUTTON MD-ANS <-> 6 Role Performed Anesthesiologist of Record <-> 6 Time In 02/12/19 13:51:00 <-> 6 Procedure Aortogram Abdominal with Runoff(Right) 02/12/19 14:15:54 Repeat Photocomposing Machine Operator: EANAPILUIS Modifier: EANAPIER <+> 1 Procedure 2 <+> Time In 2 <*> Procedure Aortogram Abdominal with Runoff(Right) 3 <+> Time In 3 <*> Procedure Aortogram Abdominal with Runoff(Right) 4 <+> Time In 4 <*> Procedure Aortogram Abdominal with Runoff(Right) 5 <+> Time In 5 <*> Procedure Aortogram Abdominal with Runoff(Right) 6 <+> Time In 6 <*> Procedure Aortogram Abdominal with Runoff(Right) 02/12/19 14:13:18 Repeat Photocomposing Machine Operator: HARSHPILUIS Modifier: EANAPIER <+> 2 Case Attendee <+> 2 Role Performed <+> 2 Procedure <+> 3 Case Attendee <+> 3 Role Performed <+> 3 Procedure <+> 4 Case Attendee <+> 4 Role Performed <+> 4 Procedure <+> 5 Case Attendee <+> 5 Role Performed <+> 5 Procedure <+> 6 Case Attendee <+> 6 Role Performed <+> 6 Procedure [facility] IntraOp Case Times Entry 1 Patient In Room Time 02/12/19 13:51:00 Out Room Time 02/12/19 15:09:00 Anesthesia Start Time 02/12/19 13:51:00 Stop Time 02/12/19 15:09:00 Surgery / Procedure Times Start Time 02/12/19 14:12:00 Stop Time 02/12/19 15:00:00 Last Modified By: Lexus Linda Rn 02/12/19 15:21:58 [facility] IntraOp Case Times Audit 02/12/19 15:21:58 Repeat Photocomposing Machine Operator: JONN Modifier: MEDARDO <+> 1 Out Room Time <+> 1 Stop Time <+> 1 Stop Time 02/12/19 14:11:48 Repeat Photocomposing Machine Operator: HARSHPILUIS Modifier: EANAPIER <+> 1 Start Time [facility] IntraOp Communication Entry 1 Communication To Family/Significant other Comment START Date and Time 02/12/19 14:13:00 Last Modified By: Adilene Dhillon RN 02/12/19 14:12:21 [facility] IntraOp Departure from OR Entry 1 Integumentary Assessment Integumentary WDL Assessment WDL Transfer/Handoff Transfer to Other Handoff Method Phone call Post-op Transport Stretcher/[facility] Via Patient Transport Lexus Linda Rn Accompanied by Transfer/Handoff PT TRANSPORTED TO [facility] Last Modified By: Lexus Linda Rn 02/12/19 15:48:30 General Comments: CALLED TO Arthur Gonzalez NURSE [facility] IntraOp Departure from OR Audit 02/12/19 15:49:29 Repeat Photocomposing Machine Operator: MEDARDO Modifier: MEDARDO <+> 1 Patient Transport Accompanied by [facility] IntraOp Dressing and Packing Entry 1 Type Dressing Location [facility] Wound Dressing Item 4x4's Applied By TONY PEÑA MD-JESUS Other Comments [employer] Last Modified By: Adilene Dhillon RN 02/12/19 14:09:39 [facility] IntraOp Fire Risk Assessment Entry 1 [...] Modified By: Adilene Dhillon RN 02/12/19 14:09:55 [facility] IntraOp Fire Risk Assessment Audit 02/12/19 14:13:31 Repeat Photocomposing Machine Operator: HARSHPILUIS Modifier: EANAPIER <+> 1 Fire Risk Assessment Verified By <+> 1 Fire Risk Assessment Verified Date/Time 02/12/19 14:12:26 Repeat Photocomposing Machine Operator: EASTEPHANIEPILUIS Modifier: EANAPIER 1 <-> Fire Risk Assessment Verified 02/12/19 14:10:00 Date/Time [facility] IntraOp General Case Orthodontic Technician 1 Case Information OR OR 20 [facility] Case Level 1 Room Verified Yes Wound Class I - Clean Specialty SN Endovascular Anesthesia Type MAC ASA Class 3 Diagnosis Preop Diagnosis BILATERAL LOWER EXTREMITY CLAUDICATION Postop Same As Preop No Postop Diagnosis SEE MD NOTE Last Modified By: Adilene Dhillon RN 02/12/19 14:13:47 [facility] IntraOp General Case Data Audit 02/12/19 14:20:37 Repeat Photocomposing Machine Operator: JONN Modifier: EANAPIER <+> 1 Preop Diagnosis [facility] IntraOp Implant Log Entry 1 Entry 2 Entry 3 Type Implant (Synthetic) Implant (Synthetic) Implant (Synthetic) Implant Log Implant Type Other Tissue Implant Type Implant STENT LS EXP VASC CVR [id number] STENT LS EXP VASC CVR Identification [id number] Description Implant Quantity 1 1 1 Implant Site LEFT COMMON ILIAC ARTERY RIGHT COMMON ILIAC RIGHT COMON ILIAC ARTERY ARTERY Implant [id number] Identification Model Number Implant Identification Serial Number Implant [id number] Identification Lot Number Implant Cr Bard:Peripheral Vasc Cr Bard:Peripheral Vasc Identification Quality Review Specialist Name: Implant [id number] Identification Catalog Number Implant Size 7.9 X 24.6 MM 7.9 X 37 MM Implant Has an Yes Yes Yes Expiration Date Implant Expiration 07/23/21 11/22/21 11/22/21 Date Wasted Radioactive Material Time Implanted Tissue Implant Continue for Tissue Implant Documentation Tissue Identification Number Graft Prep Per Quality Review Specialist Instructions: Tissue Preparation Method: Reconstitution Solution: Reconstitution Solution Lot Number Reconstitution Solution Expiration Date: Thawing Solution Thawing Solution Lot Number Thawing Solution Expiration Date Preparation Materials, Other Preparation Materials, Other Lot Number Preparation Materials, Other Expiration Date Tissue Prepared/Processed By Quality Review Specialist Paperwork Completed Implant Type Comment Last Modified By: Adilene Dhillon RN Napier, Elizabeth A, RN Sloan, Susan, Rn 02/12/19 14:37:35 02/12/19 14:39:27 02/12/19 15:46:28 Entry 4 Entry 5 Entry 6 Type Implant (Synthetic) Implant (Synthetic) Implant (Synthetic) Implant Log Implant Type Other Tube(s) Other Tissue Implant Type Implant STNT BLLN ENDO VBX DEVICE MYNX WEBSPHERE CONSULTANT 6F/ 7F DEVICE MYNX WEBSPHERE CONSULTANT 6F/ 7F Identification [id number] Description Implant Quantity 1 1 1 Implant Site RIGHT EXTERNAL ILIAC RIGHT FEMORAL LEFT FEMORAL ARTERY ARTERY Implant [id number] Identification Model Number Implant [id number] Identification Serial Number Implant [id number] Identification Lot Number Implant [place] [employer]:Med Prdt Access Closure Access Closure Identification Quality Review Specialist Name: Implant [id number] Identification Catalog Number Implant Size Implant Has an Yes Yes Yes Expiration Date Implant Expiration 07/29/21 01/22/21 01/22/21 Date Wasted Radioactive Material Time Implanted Tissue Implant Continue for Tissue Implant Documentation Tissue Identification Number Graft Prep Per Quality Review Specialist Instructions: Tissue Preparation Method: Reconstitution Solution: Reconstitution Solution Lot Number Reconstitution Solution Expiration Date: Thawing Solution Thawing Solution Lot Number Thawing Solution Expiration Date Preparation Materials, Other Preparation Materials, Other Lot Number Preparation Materials, Other Expiration Date Tissue Prepared/Processed By Quality Review Specialist Paperwork Completed Implant Type Comment Last Modified By: Lexus Linda Rn Sloan, Susan, Rn Sloan, Susan, Rn 02/12/19 15:46:28 02/12/19 15:46:28 02/12/19 15:46:28 [facility] IntraOp Implant Log Audit 02/12/19 15:46:28 Repeat Photocomposing Machine Operator: JONN Meng: MEDARDO 1 <*> Implant Identification Description STENT LS EXP VASC CVR [id number] <+> 3 Implant Identification Description <+> 3 Implant Identification Lot Number <+> 3 Implant Identification Quality Review Specialist Name: <+> 3 Implant Expiration Date <+> 3 Implant Site <+> 3 Implant Quantity <+> 3 Implant Identification Catalog Number <+> 3 Implant Type <+> 3 Implant Identification Model Number <+> 3 Implant Has an Expiration Date <+> 3 Type <+> 4 Implant Identification Description <+> 4 Implant Identification Serial Number <+> 4 Implant Identification Quality Review Specialist Name: <+> 4 Implant Expiration Date <+> 4 Implant Site <+> 4 Implant Quantity <+> 4 Implant Identification Catalog Number <+> 4 Implant Type <+> 4 Implant Identification Model Number <+> 4 Implant Has an Expiration Date <+> 4 Type <+> 5 Implant Identification Description <+> 5 Implant Identification Lot Number <+> 5 Implant Identification Quality Review Specialist Name: <+> 5 Implant Expiration Date <+> 5 Implant Site <+> 5 Implant Quantity <+> 5 Implant Identification Catalog Number <+> 5 Implant Type <+> 5 Implant Identification Model Number <+> 5 Implant Has an Expiration Date <+> 5 Type <+> 6 Implant Identification Description <+> 6 Implant Identification Quality Review Specialist Name: <+> 6 Implant Expiration Date <+> 6 Implant Site <+> 6 Implant Quantity <+> 6 Implant Identification Catalog Number <+> 6 Implant Type <+> 6 Implant Identification Model Number <+> 6 Implant Has an Expiration Date <+> 6 Type 02/12/19 14:39:27 Repeat Photocomposing Machine Operator: JONN Modifier: JONN <+> 2 Implant Identification Description <+> 2 Implant Identification Lot Number <+> 2 Implant Size <+> 2 Implant Expiration Date <+> 2 Implant Site <+> 2 Implant Quantity <+> 2 Implant Has an Expiration Date <+> 2 Type [facility] IntraOp Intraoperative Assessment Entry 1 Handoff [...] Modified By: Adilene Dhillon RN 02/13/19 06:58:24 [facility] IntraOp Intraoperative Assessment Audit 02/13/19 06:58:24 Repeat Photocomposing Machine Operator: EANAPIER Modifier: EANAPIER 1 <*> Skin Assessment Verified Yes 1 <+> Handoff Method [facility] IntraOp Intraoperative Equipment Entry 1 Type Monitoring Equipment Intraop Monitoring Electrocardiogram Three lead placement (ECG) Electrode Placement Blood Pressure Non-Invasive BP Device Source Blood Pressure Arm, right upper Location Pulse Oximeter Hand, left Probe Site Antiembolic Devices Scopes Photo/Video Documentation Last Modified By: Adilene Dhillon RN 02/12/19 14:15:38 [facility] IntraOp Medication Admin Entry 1 Entry 2 Entry 3 Medication/Irrigant CESAR VISIPAQUE 320MG 150 lidocaine 1% 50ml vial CESAR NACL 0.9PCT HPRN 200ML --[id number] - [id number] 1000U .5L --[id number] Combo Med List Time Administered Route of [...] RN 02/12/19 14:14:13 02/12/19 14:14:13 02/12/19 14:14:13 [facility] IntraOp Medication Admin Audit 02/13/19 06:57:26 Repeat Photocomposing Machine Operator: EANAPIER Modifier: EANAPIER <+> 1 Dose [facility] IntraOp Patient Positioning Entry 1 Procedure [...] Modified By: Adilene Dhillon RN 02/13/19 06:59:18 [facility] IntraOp Patient Positioning Audit 02/13/19 06:59:18 Repeat Photocomposing Machine Operator: JONN Modifier: EANAPIER 1 <*> Procedure Aortogram Abdominal with Runoff(Right), Arterial Stent Endovascular(Right) 1 <*> Positioning Devices Head Rest, Safety Strap, Thighs, Sled Arm Rest 1 <*> Positioned By TONY PEÑA MD-JESUS 02/12/19 14:50:30 Repeat Photocomposing Machine Operator: HARSHPIER Modifier: EANAPIER 1 <*> Procedure Aortogram Abdominal with Runoff(Right) [facility] IntraOp Sign In Entry 1 Patient, [...] Modified By: Adilene Dhillon RN 02/12/19 14:14:44 [facility] IntraOp Sign Out Entry 1 RN [...] Modified By: Adilene Dhillon RN 02/12/19 14:15:04 [facility] IntraOp Sign Out Audit 02/12/19 15:49:49 Repeat Photocomposing Machine Operator: JONN Modifier: JOHNAN <+> 1 RN Sign Out Signature Date/Time 02/12/19 14:16:46 Repeat Photocomposing Machine Operator: JONN Modifier: EANAPIER 1 <*> Urinary Catheter Documented in IView N/A [facility] IntraOp Skin Prep Entry 1 Procedure Aortogram Abdominal with Runoff(Right), Arterial Stent Endovascular(Right) Prescribed N/A Pre-Surgical Prep Completed Prep Area BILATERAL GROINS Intraop Prep Integumentary WDL Assessment WDL Prep Agents Chloraprep Prep by Adilene Dhillon RN Hair Removal Methods No hair removal performed Last Modified By: Adilene Dhillon RN 02/12/19 14:13:55 [facility] IntraOp Skin Prep Audit 02/12/19 14:50:30 Repeat Photocomposing Machine Operator: JONN Modifier: EANAPIER 1 <*> Procedure Aortogram Abdominal with Runoff(Right) [facility] IntraOp Surgical Procedures Entry 1 Entry [...] Elizabeth A, RN 02/13/19 07:00:03 02/12/19 14:50:24 [facility] IntraOp Surgical Procedures Audit 02/13/19 07:00:03 Repeat Photocomposing Machine Operator: MEDARDO Modifier: EANAPIER 1 <*> Procedure Aortogram Abdominal with Runoff 1 <*> Additional Procedure Description (AORTOGRAM WITH RT LEG REVASCULARIZATION) 02/12/19 15:49:57 Repeat Photocomposing Machine Operator: JONN Modifier: ROSALINDALOAN 1 <*> Procedure Aortogram Abdominal with Runoff 1 <+> Stop <+> 2 Stop 02/12/19 14:54:15 Repeat Photocomposing Machine Operator: JONN Modifier: HARSHPIER 1 <*> Procedure Aortogram Abdominal with Runoff 02/12/19 14:50:24 Repeat Photocomposing Machine Operator: JONN Modifier: HARSHPIER <+> 2 Procedure <+> 2 Primary Procedure <+> 2 Modifiers <+> 2 Primary Surgeon <+> 2 Specialty <+> 2 Start <+> 2 Wound Class <+> 2 Anesthesia Type [facility] IntraOP Time Out Entry 1 Procedure [...] Modified By: Adilene Dhillon RN 02/12/19 14:50:31 [facility] IntraOP Time Out Audit 02/12/19 14:50:31 Repeat Photocomposing Machine Operator: JONN Modifier: HARSHPIER 1 <*> Procedure to be Performed Aortogram Abdominal with Runoff(Right) [facility] IntraOp X-Ray and Images Entry 1 X-Ray/Imaging Type Fluoroscopy Fluoroscopy Type Fixed Thread Checker Name Mayra Castrejon [employer] Protective Devices Yes [...] JORGE Correct Billing Electronically signed by Mickey, [facility] Conversion Toll Gate Keeper Cerner at 08/13/2022 11:13 AM CDT documented in this encounter Plan of Treatment Not on file documented as of this encounter Visit Diagnoses Not on filedocumented in this encounter
--- OUTSIDE RECORDS SUMMARY | 2024-12-05 13:06 | XMS_ITS | Encounter Summary ---
Author Organization [facility] Address [address] [place] [address] Care Team Providers Care Neck Band Operator Name Role Phone Mustapha James MD Primary Care Provider + Reason for Visit * Reason Onset Date Comments Fluid Retention 10/11/2024 Encounter Details Date Type Department Care Team (Late st Contact Info) Description 10/11/2024 Telephone [facility] [address] [place] [address] Mustapha James MD [address] [place] [address] Fluid Retention Social History Tobacco [...] Byrne Relationship: Self Best call back number: [phone] What was the call regarding: PATIENT STATES [...] Description 12/06/2024 6:05 AM EDT Hospital Encounter [facility] [address] [facility] [address] [place] [address] Arrived 12/06/2024 2:00 PM EDT Office [facility] [address] [place] [address] Chirag Mckee MD [address] [place] [address] 12/27/2024 2:00 PM EDT Office Visit [facility] [address] [facility] [place] [id number] Mustapha James MD [address] [place] [address] documented as of this encounter Visit Diagnoses Not on filedocumented in this encounter Additional Health Concerns Assessment Noted Time PHQ-2 Depression Total Score: 1 10/24/19 24 2:19 PM EDT documented as of this encounter Care Teams Neck Band Operator Relationship Specialty Start Date End Date Mustapha James MD [address] [place] [address] PCP - General Family Medicine 01/02/24 documented as of this encounter
--- OUTSIDE RECORDS SUMMARY | 2024-12-05 13:06 | XMS_ITS | Encounter Summary ---
Author Organization [facility] Address [address] [place] [address] Care Team Providers Care Pony Cylinder Press Operator Name Role Phone Mustapha James MD Primary Care Provider + Reason for Visit * Reason Onset Date Comments Med Refill 10/24/2024 Encounter Details Date Type Department Care Team (Late st Contact Info) Description 10/24/2024 Refill [facility] [address] [place] [address] Mustapha James MD [address] [place] [address] Social History Tobacco Use Types [...] a month already. She is to call parts back counter man to the end of the Rx. She voiced understanding. * Telephone Encounter - Mary Rader RegSched Rep - 10/24/2024 3:44 PM EDT PATIENT CALLED TO RELAY THAT HER DIGITAL PRODUCTION OPERATOR DR JACOBSONS PCP TO SEND IN REFILLS FOR TORSEMIDE * Telephone Encounter - Leandra Dotson RegSched Rep - 10/24/2024 3:34 PM EDT A user error has taken place: encounter opened in error, closed for administrative reasons. documented in this encounter Plan of Treatment Upcoming Encounters Date Type Department Care Team (Late st Contact Info) Description 12/06/2024 6:05 AM EDT Hospital Encounter [facility] [address] [place] [address] [place] [address] Arrived 12/06/2024 2:00 PM EDT Office Visit [facility] [address] [place] [address] Chirag Mckee MD [address] [place] [address] 12/27/2024 2:00 PM EDT Office Visit [facility] [address] [place] [address] Mustapha James MD [address] [place] [address] documented as of this encounter Visit Diagnoses Not on filedocumented in this encounter Additional Health Concerns Assessment Noted Time PHQ-2 Depression Total Score: 1 10/24/19 24 2:19 PM EDT documented as of this encounter Care Teams Pony Cylinder Press Operator Relationship Specialty Start Date End Date Mustapha James MD [address] [place] [address] PCP - General Family Medicine 01/02/24 documented as of this encounter
--- OUTSIDE RECORDS SUMMARY | 2024-12-05 13:06 | XMS_ITS | Encounter Summary ---
Author Organization [employer] ([place], [place], [place], [place]) Address [address] [place] [address] Care Team Providers Care Relief Salesperson Name Role Phone Unavailable Primary Care Provider Unavailabl e Encounter Details Date Type Department Care Team (Late st Contact Info) Description 02/12/2019 Transcribed Document [facility] [place] Family Medicine [facility] [place] [address] ProviderRegina MD [address] [place] [address] Social History Tobacco Use Types [...] Document Reviewed: 05/14/2011 ExitCare? Patient Information ?2013 [employer]. Angiogram, Care After This sheet gives you [...] and water are not available, use hand brush finisher. ? Change your dressing as told by [...] contrast dye from your body. ??? Take vjnb-amc-hgwkraj and prescription medicines only as told by [...] 10/28/2005 Document Revised: 03/16/2017 Document Reviewed: 03/16/2017 [employer] Interactive Patient Education ? 2019 [employer]. Moderate Conscious Sedation, Adult, Care After [...] you are awake and alert. ??? Take ltsl-yvi-cskffih and prescription medicines only as told by [...] 01/30/2014 Document Revised: 09/13/2016 Document Reviewed: 07/31/2016 [employer] Interactive Patient Education ? 2019 [employer] documented in this encounter Plan of Treatment Not on file documented as of this encounter Visit Diagnoses Not on filedocumented in this encounter
--- OUTSIDE RECORDS SUMMARY | 2024-12-05 13:06 | XMS_ITS | Encounter Summary ---
Author Organization [employer] ([place], [place], [place], [place]) Address [address] [place] [address] Care Team Providers Care Pasting Machine Operator Name Role Phone Unavailable Primary Care Provider Unavailabl e Encounter Details Date Type Department Care Team (Late st Contact Info) Description 03/14/2019 Transcribed Document [facility] [place] Family Medicine [facility] [place] [address] ProviderRegina MD [address] [place] [address] Social History Tobacco Use Types Packs/Day [...] Regina Henley MD - 03/14/2019 4:22 PM HEALTH SCIENCE SPECIALIST [facility] [place] [address] THOMAS GTZ SRIRAM :1955 Visit Time:03/14/2019 Your Visit Summary Your Care Team Admitting Physician - TONY PEÑA MD-SUR Attending Physician - TONY PEÑA MD-SUR Primary Care Physician - JACKIE BABIN MD-FAM Referring Physician - JACKIE BABIN MD-FAM PHY, NONE Your Diagnosis Atherosclerosis of [place] arteries of extremities with intermittent claudication, unspecified extremity, Atherosclerosis of [place] arteries of extremities with intermittent claudication, unspecified [...] Appointment has been made, with JOEY,s Where: [address] [place], [place] [phone] Medications What How Much When Instructions Next Dose acetaminophen-hydrocodone ([place] 7.5 mg-325 mg oral tablet) 1 Tablet(s) [...] you are awake and alert. ??? Take nnzk-vbo-mdpbgju and prescription medicines only as told by [...] 01/30/2014 Document Revised: 09/13/2016 Document Reviewed: 07/31/2016 [employer] Interactive Patient Education ?? 2019 [employer]. Angiogram, Care After This sheet gives [...] and water are not available, use hand capacitor repairer. ? Change your dressing as told by [...] contrast dye from your body. ??? Take hxnp-hvb-npwdvxm and prescription medicines only as told by [...] 10/28/2005 Document Revised: 03/16/2017 Document Reviewed: 03/16/2017 [employer] Interactive Patient Education ?? 2019 [employer]. Angiogram An angiogram is a procedure [...] including vitamins, herbs, eye drops, creams, and bnnn-wwb-pxnymxy medicines. ??? Any problems you or family [...] 01/19/2006 Document Revised: 08/16/2017 Document Reviewed: 05/18/2017 [employer] Interactive Patient Education ?? 2019 [employer]. Intermittent Claudication Intermittent claudication is pain [...] calories. Consider working with a diet and plastic surgery specialist (dietitian) to help you make healthy [...] blood pressure, or high cholesterol. ??? Take fdqf-ixe-javczry and prescription medicines only as told by [...] 02/11/2005 Document Revised: 05/12/2017 Document Reviewed: 05/12/2017 [employer] Interactive Patient Education ?? 2019 [employer]. Peripheral Vascular Disease Peripheral vascular disease (PVD) [...] activities for you. General instructions ??? Take uuum-amz-wxrgxfv and prescription medicines only as told by [...] 05/19/2005 Document Revised: 05/19/2017 Document Reviewed: 05/19/2017 [employer] Interactive Patient Education ?? 2019 [employer] Inc. Emergency Awareness and Preventative Care STROKE [...] Assistance with quitting is available by contacting 9-182-OIWLNOW. This is a free resource providing counseling, [...] was given the opportunity to ask questions. Patient/Cryptanalyst Name: Patient/Cryptanalyst Signature: Relationship to Patient: Clinician/Hospital Cryptanalyst Signature: Date: documented in this encounter Plan of Treatment Not on file documented as of this encounter Visit Diagnoses Not on filedocumented in this encounter
--- OUTSIDE RECORDS SUMMARY | 2024-12-05 13:06 | XMS_ITS | Encounter Summary ---
Author Organization [employer] ([place], [place], [place], [place]) Address [address] [place] [address] Care Team Providers Care Photo Checker Name Role Phone Unavailable Primary Care Provider Unavailabl e Encounter Details Date Type Department Care Team (Late st Contact Info) Description 02/09/2019 Transcribed Document [facility] [place] Family Medicine [facility] [place] [address] ProviderRegina MD [address] [place] [address] Social History Tobacco Use Types Packs/Day [...] Source : Measured Height Entry Format : [place] Height, Inches : 63 Inch(Converted to: 5 ft 3 Inch, 160.02 cm) Clinical Height : 160.02 cm Weight Source : Standing scale Weight Entry Format : [place] Clinical Dosing Weight : 85.91 kg Weight, Pounds : 189 lb Body Surface Area (BSA) : 1.89 m2 Body Mass Index : 33.6 kg/m2 (HI) [place] Body Weight : 52 kg ABRAHAM STOKES RN - 02/12/2019 11:04 EDT Health Histories Smoking Status : 4 or less cigarettes(less than 1/4 pack)/day in last 30 days Smokeless Tobacco Status : Never Desires Tobacco Cessation Medication : No Reason for No Tobacco Cessation Medication : Refuses FDA approved medications Implant/Device Type, Lecturer Of Portuguese and Model : neck fusion and lumbar [...] Obtained From : Patient Primary Language : Telugu Communication Barrier : None MARY MCGRAW RN [...] Old : Yes Gender Male : No AMRY MCGRAW RN - 02/09/2019 15:36 EDT documented in this encounter Plan of Treatment Not on file documented as of this encounter Visit Diagnoses Not on filedocumented in this encounter
--- OUTSIDE RECORDS SUMMARY | 2024-12-05 13:06 | XMS_ITS | Encounter Summary ---
Author Organization [employer] ([place], [place], [place], [place]) Address [address] [place] [address] Care Team Providers Care Kennel Keeper Name Role Phone Unavailable Primary Care Provider Unavailabl e Encounter Details Date Type Department Care Team (Late st Contact Info) Description 03/14/2019 Transcribed Document [facility] Radiology [address] [place] [address] Martinez Milelr MD [address] [facility] [place] [address] Social History Tobacco Use Types Packs/Day Years [...] allow for placement and advancement of a 6-Malian sheath. 3. Catheter placement within the aorta. 4. Aortography demonstrating patency of bilateral common iliac artery stents. 5. Inability to access the occluded left superficial femoral artery through an antegrade fashion. 6. Successful recanalization of occluded superficial femoral artery through pedal access and placement of a 5 x170 LifeStent. OPERATIVE DESCRIPTION: The patient was taken back to the civil laboratory technician and placed in supine position. Following IV [...] Attempts to advance a radio to peripheral 6-Malian sheath was performed, fortunately successful. This got [...] successfully with a micropuncture wire. A low-profile 6-Malian sheath was placed. Left lower extremity angiogram [...] Recovery in stable condition. No immediate complications. /[id number] Martinez Miller MD NNA/AQ / NNA / MODL /[id number] documented in this encounter Plan of Treatment Not on file documented as of this encounter Visit Diagnoses Not on filedocumented in this encounter
--- OUTSIDE RECORDS SUMMARY | 2024-12-05 13:06 | XMS_ITS | Clinical Summary ---
Author Organization [employer] ([place], [place], [place], [place]) Address [address] [place] [address] Care Team Providers Care Media Relations Manager Name Role Phone Unavailable Primary Care [...] Date Mathew rded Speak language other than Occitan at home Not on file 05/13/2023 Want [...]
--- OUTSIDE RECORDS SUMMARY | 2024-12-05 13:06 | XMS_ITS | Encounter Summary ---
Author Organization [employer] ([place], [place], [place], [place]) Address [address] [place] [address] Care Team Providers Care Dictating Machine Transcriber Name Role Phone Unavailable Primary Care Provider Unavailabl e Encounter Details Date Type Department Care Team (Late st Contact Info) Description 02/12/2019 Transcribed Document [facility] [place] Family Medicine [facility] [place] [address] ProviderRegina MD [address] [place] [address] Social History Tobacco Use Types Packs/Day [...] 02/12/2019 15:39 EDT Electronically signed by Mickey [facility] Conversion Conventions Assistant Cerner at 08/13/2022 11:19 AM CDT documented in this encounter Plan of Treatment Not on file documented as of this encounter Visit Diagnoses Not on filedocumented in this encounter
--- OUTSIDE RECORDS SUMMARY | 2024-12-05 13:06 | XMS_ITS | Encounter Summary ---
Author Organization [employer] ([place], [place], [place], [place]) Address [address] [place] [address] Care Team Providers Care Youth Development Professional Name Role Phone Unavailable Primary Care Provider Unavailabl e Encounter Details Date Type Department Care Team (Late st Contact Info) Description 03/14/2019 Transcribed Document [facility] [place] Family Medicine [address] [place] [address] ProviderRegina MD [address] [place] [address] Social History Tobacco Use Types [...] Regina Henley MD - 03/14/2019 4:15 PM DIRECTOR OF CASINO Patient Education Materials Follows: Moderate Conscious Sedation, [...] you are awake and alert. ??? Take wkby-kpt-qskienn and prescription medicines only as told by [...] 01/30/2014 Document Revised: 09/13/2016 Document Reviewed: 07/31/2016 [facility] Interactive Patient Education ? 2019 [facility] [employer] Angiogram, Care After This sheet gives [...] and water are not available, use hand bottle house cleaners supervisor. ? Change your dressing as told by [...] contrast dye from your body. ??? Take hrzl-kzz-olbgwip and prescription medicines only as told by [...] 10/28/2005 Document Revised: 03/16/2017 Document Reviewed: 03/16/2017 [facility] Interactive Patient Education ? 2019 [facility] [employer] Angiogram An angiogram is a procedure [...] including vitamins, herbs, eye drops, creams, and oeai-yuk-eebhtud medicines. ??? Any problems you or family [...] 01/19/2006 Document Revised: 08/16/2017 Document Reviewed: 05/18/2017 [facility] Interactive Patient Education ? 2019 [facility] Cardiovascular Intermittent Claudication Intermittent claudication is [...] Consider working with a diet and nutrition therapist (dietitian) to help you make healthy food [...] blood pressure, or high cholesterol. ??? Take mzvj-ulc-ifghlzh and prescription medicines only as told by [...] 02/11/2005 Document Revised: 05/12/2017 Document Reviewed: 05/12/2017 [employer] Interactive Patient Education ? 2019 [facility] Peripheral Vascular Disease Peripheral vascular disease [...] activities for you. General instructions ??? Take cgpz-ybz-gbmgdga and prescription medicines only as told by [...] 05/19/2005 Document Revised: 05/19/2017 Document Reviewed: 05/19/2017 [employer] Interactive Patient Education ? 2019 [facility] documented in this encounter Plan of Treatment Not on file documented as of this encounter Visit Diagnoses Not on filedocumented in this encounter
--- OUTSIDE RECORDS SUMMARY | 2024-12-05 13:06 | XMS_ITS | Encounter Summary ---
Author Organization [employer] ([place], [place], [place], [place]) Address [address] [place] [address] Care Team Providers Care Optometrist Name Role Phone Unavailable Primary Care Provider Unavailabl e Encounter Details Date Type Department Care Team (Late st Contact Info) Description 02/12/2019 Transcribed Document [facility] Family Medicine [facility] [place] [address] ProviderRegina MD [facility] [place] [address] Social History Tobacco Use [...] Regina ProviderMD - 02/12/2019 2:12 PM CDT [facility] Main OR Preop Summary Primary Physician: TONY PEÑA MD-SUR Finalized Date/Time: 02/12/19 18:38:33 Pt. Name: THOMAS GTZ SRIRAM Reynolds/Sex: 1955 Female Med Rec #: [id number] Physician: TONY PEÑA MD-SUR Financial #: [id number] Pt. Type: O Room/Bed: HIS/11 Admit/Disch: 02/12/19 09:27:00 - 02/12/19 18:10:00 Institution: [facility] PreOp Case Times Entry 1 In Preop 02/12/19 09:40:00 Ready for Holding n/a Room Patient Ready for 02/12/19 11:13:00 Surgery Patient Out of Preop 02/12/19 13:49:00 Patient Out of n/a Holding Room Last Modified By: SHAHLA GOODMAN RN 02/12/19 18:38:24 Finalized By: SHAHLA GOODMAN, RN Document Signatures Signed By: SHAHLA GOODMAN RN 02/12/19 18:38 Electronically signed by Mickey [facility] Conversion Public Works Inspector Cerner at 08/13/2022 11:16 AM CDT documented in this encounter Plan of Treatment Not on file documented as of this encounter Visit Diagnoses Not on filedocumented in this encounter
--- OUTSIDE RECORDS SUMMARY | 2024-12-05 13:06 | XMS_ITS | Encounter Summary ---
Author Organization [facility] Address [address] [id number] Care Team Providers Care Wood Fence Installer Name Role Phone Mustapha James MD Primary Care Provider [phone] Miguel Lamb MD Unavailable [phone] Encounter Details Date Type Department Care Team (Late st Contact Info) Description 11/02/2024 Telephone [facility] [place] [address] [place] [address] [place] [address] Social History Tobacco Use Types Packs/Day Years [...] as of this encounter Plan of Treatment Not on [...] documented as of this encounter Care Teams Wood Fence Installer Relationship Specialty Start Date End Date [place] [address] PCP - General 09/05/20 Miguel Lamb MD [address] [place] [id number] Referring Physician Interventional Cardiology 08/16/24 documented as of this encounter
--- OUTSIDE RECORDS SUMMARY | 2024-12-05 13:06 | XMS_ITS | Encounter Summary ---
Author Organization [facility] Address [address] [place] [address] Care Team Providers Care Senior Recruitment Consultant Name Role Phone Mustapha James MD Primary Care Provider + Reason for Visit * Reason Onset Date Comments OVERNIGHT STUDY 09/27/2024 Encounter Details Date Type Department Care Team (Late st Contact Info) Description 09/27/2024 Telephone [facility] FAMILY MEDICINE [address] [place] [address] Mustapha James MD [address] [place] [address] OVERNIGHT STUDY Social History Tobacco [...] Description 12/06/2024 6:05 AM EDT Hospital Encounter [facility] [address] [address] Arrived 12/06/2024 2:00 PM EDT Office Visit [facility] [address] [place] [address] Chirag Mckee MD [address] [place] [address] 12/27/2024 2:00 PM EDT Office Visit [facility] [address] [facility] [place] [address] Mustapha James MD [address] [place] [address] documented as of this encounter Visit Diagnoses Not on filedocumented in this encounter Additional Health Concerns Assessment Noted Time PHQ-2 Depression Total Score: 1 10/24/19 24 2:19 PM EDT documented as of this encounter Care Teams Senior Recruitment Consultant Relationship Specialty Start Date End Date Mustapha James MD [address] [place] [address] PCP - General Family Medicine 01/02/24 documented as of this encounter
--- OUTSIDE RECORDS SUMMARY | 2024-12-05 13:06 | XMS_ITS | Encounter Summary ---
Author Organization [employer] ([place], [place], [place], [place]) Address [address] [place] [address] Care Team Providers Care Psychometric Examiner Name Role Phone Unavailable Primary Care Provider Unavailabl e Encounter Details Date Type Department Care Team (Late st Contact Info) Description 02/12/2019 Transcribed Document [facility] Radiology [address] [place] [address] Martinez Miller MD [address] [facility] [address] [place] [id number] Social History Tobacco Use Types Packs/Day Years [...] skin and nails, Oral, Daily, 0 Refill(s) [place] 7.5 mg-325 mg oral tablet: 1 Tab, [...] Medication hair, skin and nails, Oral, Daily [place] 7.5 mg-325 mg oral tablet 1 Tab, [...] Problems Cervical spinal stenosis / SNOMED CT 833849562 / Confirmed Smoker / SNOMED CT 804222842 / Confirmed Sinusitis / SNOMED CT 13959852 / Confirmed Seasonal allergies / SNOMED CT 458027593 / Confirmed Restless leg / SNOMED CT 82802980 / Confirmed Colon polyps / SNOMED CT 400543803 / Confirmed Pneumonia / SNOMED CT 514890379 / Confirmed Peripheral vascular disease / SNOMED CT 7675489864 / Confirmed Peptic ulcer / SNOMED CT 29900140 / Confirmed Osteoporosis / SNOMED CT 024121534 / Confirmed Neuropathy, R arm / SNOMED CT 0887385798 / Confirmed Migraines / SNOMED CT 20621395 / Confirmed Skin cancer / SNOMED CT 5528588177 / Confirmed Hypertension / SNOMED CT 1547800046 / Confirmed Hyperlipidemia / SNOMED CT 59213673 / Confirmed Elevated cholesterol / SNOMED CT 06736805 / Confirmed Hiatal hernia / SNOMED CT 315459684 / Confirmed Hemorrhoids / SNOMED CT 250169665 / Confirmed H/O: TIA / SNOMED CT 190370774 / Confirmed GERD (gastroesophageal reflux disease) / SNOMED CT 584016304 / Confirmed Gastritis / SNOMED CT 9478728 / Confirmed Fibromyalgia / SNOMED CT 53302562 / Confirmed Fibroids / SNOMED CT 294816506 / Confirmed Endometriosis / SNOMED CT 4848250604 / Confirmed Diverticulitis / SNOMED CT 887764091 / Confirmed Sinus problem / SNOMED CT 0723140347 / Confirmed Known medical problems / SNOMED CT 809223920 / Confirmed white spots on MRI Known medical problems / SNOMED CT 349813505 / Confirmed anti nuclear A and A antibodies Constipation / SNOMED CT 61613416 / Confirmed COPD (chronic obstructive pulmonary disease) / SNOMED CT 18762438 / Confirmed Chronic cough / SNOMED CT 293849181 / Confirmed Chronic constipation / SNOMED CT 565291149 / Confirmed Stroke, possible / SNOMED CT 481918414 / Confirmed Bursitis / SNOMED CT 924201553 / Confirmed Bronchitis / SNOMED CT 44521047 / Confirmed Back pain / SNOMED CT 844807657 / Confirmed Arthritis / SNOMED CT 8826807 / Confirmed Anemia / SNOMED CT 506436964 / Confirmed Allergic rhinitis / SNOMED CT 548708726 / Confirmed, Active Problems (39) Allergic rhinitis [...] LE weakness, uses cane. Integumentary: Warm, Dry, [place]. Neurologic: Alert, Oriented. Psychiatric: Cooperative, Appropriate mood & affect. Review / Management Results review: No qualifying data available. Impression and Plan Condition: Stable. documented in this encounter Plan of Treatment Not on file documented as of this encounter Visit Diagnoses Not on filedocumented in this encounter
--- OUTSIDE RECORDS SUMMARY | 2024-12-05 13:06 | XMS_ITS | Encounter Summary ---
Author Organization [facility] Address [address] [place] [address] Care Team Providers Care Machine Turner Name Role Phone Mustapha James MD Primary Care Provider + Reason for Visit * Reason Onset Date Comments Advice Only 10/18/2024 Encounter Details Date Type Department Care Team (Late st Contact Info) Description 10/18/2024 Telephone [facility] [address] [place] [address] Mustapha James MD [address] [place] [address] Advice Only Social History Tobacco [...] Description 12/06/2024 6:05 AM EDT Hospital Encounter [facility] [address] [address] Arrived 12/06/2024 2:00 PM EDT Office Visit [facility] [address] [place] [address] Chirag Mckee MD [address] [place] [address] 12/27/2024 2:00 PM EDT Office Visit [facility] [address] [facility] [place] [phone] Mustapha James MD [address] [facility] [place] [address] documented as of this encounter Visit Diagnoses Not on filedocumented in this encounter Additional Health Concerns Assessment Noted Time PHQ-2 Depression Total Score: 1 10/24/19 24 2:19 PM EDT documented as of this encounter Care Teams Machine Turner Relationship Specialty Start Date End Date Mustapha James MD [address] [place] [address] PCP - General Family Medicine 01/02/24 documented as of this encounter
--- OUTSIDE RECORDS SUMMARY | 2024-12-05 13:06 | XMS_ITS | Clinical Summary ---
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 30 tablet 11 024 Active lisinopril (PRINIVIL,ZESTRIL ) 20 MG tablet TAKE 1 TABLET BY MOUTH ONCE DAILY 30 tablet 025 Active lansoprazole (PREVACID) 30 MG capsule Take 1 capsule by mouth Daily. 30 capsule 025 Active nystatin-triamcin olone (MYCOLOG II) 442892-4.1 UNIT/GM-% creamIndications: Intertrigo Apply 1 Application topically to the appropriate area as directed 2 (Two) Times a Day. 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 Omar Chavez Assessment & Plan (01/24/2024 3:35 PM EDT): Condition is stable. Continue regular follow-up with [facility] cardiology. Regarding her LDL goal of less than 55 this is only achievable for the patient with combination therapy. She will continue Repatha. I have prescribed bempedoic acid although anticipate this will need a prior authorization and likely be cost prohibitive. Consideration could also be given to Millieo which patient should discuss with her offender job retention specialist. Lipid panel will be ordered today Pulmonary emphysema 08/21/2021 Overview (08/21/2021): Supplier Diversity Director Dr. Ally James Acquired hypothyroidism 08/21/2021 Assessment [...] Encounters Date Type Department Care Team Description 12/03/2024 Documentation [facility] [address] [place] [address] Bertha Ambrose, PATRICIA 12/03/2024 Telephone [facility] [address] [place] [address] Bertha Ambrose, PATRICIA 11/28/2024 Refill [facility] [address] [place] [address] Mustapha James MD Acquired hypothyroidism 11/21/2024 Documentation [facility] [address] [facility] [address] [place] [address] Lauren Velasco MSW 11/02/2024 Refill [facility] [address] [place] [address] Mustapha James MD Failed back syndrome of lumbar spine; Spondylosis of lumbar region without myelopathy or radiculopathy; Arthritis of lumbar spine 10/31/2024 Refill [facility] [address] [place] [address] Mustapha James MD 10/24/2024 Refill [facility] [address] [facility] [address] [place] [address] Mustapha James MD 10/18/2024 [facility] [address] [facility] [address] [place] [address] Mustapha James MD Advice Only 10/11/2024 [facility] [address] [place] [address] Mustapha James MD Fluid Retention 09/27/2024 Refill [facility] [address] [place] [address] Mustapha James MD Failed back syndrome of lumbar spine; Spondylosis of lumbar region without myelopathy or radiculopathy; Arthritis of lumbar spine; Generalized anxiety disorder 09/27/2024 [facility] [address] [place] [address] Mustapha James MD OVERNIGHT STUDY 09/26/2024 [facility] [address] [place] [address] Mustapha James MD Advice Only 09/11/2024 [facility] MEDICINE [address] [place] [address] Mustapha James MD 09/10/2024 Results Follow-Up [facility] [address] [place], [place] [address] Mustapha James MD 09/07/2024 2:00 PM EDT Office Visit [facility] [address] [place] [address] Mustapha James MD Anemia due to blood loss (Primary Dx); senior care (current) use of opiate analgesic; Long-term current use of benzodiazepine; Coronary artery disease involving kotzebue coronary artery 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; Moderate aortic valve stenosis; Chronic pain syndrome; Failed back syndrome of lumbar spine; Panlobular emphysema; Angina decubitus 09/07/2024 Travel from Last 3 Months Immunizations Immunization [...] Description 12/06/2024 6:05 AM EDT Hospital Encounter [facility] [address] [place] [address] Arrived 12/06/2024 2:00 PM EDT Office Visit [facility] [address] [place] [address] Chirag Mckee MD [address] [facility] [place] [address] 12/27/2024 2:00 PM EDT Office Visit [facility] [address] [place] [address] Mustapha James MD [address] [place] [address] Health Maintenance Due Date Last Done Comments DXA SCAN 1955 ZOSTER VACCINE (1 of 2) 1972 COLOGUARD 1998 COLON CANCER SCREENING 5 YEA R SIGMOIDOSCOPY 1998 CT COLONOGRAPHY 1998 FECAL OCCULT BLOOD TEST 1998 FIT Testing (1 year) 1998 HEPATITIS C SCREENING 07/24/2021 COVID-19 Vaccine (5 - 2023-2 5 season) 2023 02/24/2022, [...] Date/Time Associated Diagnosis Comments SCANNED - LABS 11/29/2024 CT OUTSIDE CHEST Routine 11/29/2024 12:0 0 AM EDT SCANNED - IMAGING 11/29/2024 SCANNED - LABS 11/15/2024 SCANNED - LABS [...] Recently Relevant to Health Maintenance Results * CT Outside Chest (11/29/2024 12:00 AM EDT) Narrative SYSTEMGENERATED, DOCUMENTATION - 11/30/2024 10:35 AM EDT This procedure was auto-finalized with no dictation required. us Chirag Mckee MD IMG CT ORDERABLES Final Resul t * IMAGING SCANNED (11/29/2024) Only the most recent of2 resultswithin the time period is included. Anatomical Region Laterality Modality Radiographic Chery ging Mustapha James MD [facility] O RDERABLES Final Result * LABS SCANNED (11/29/2024) Only the most recent of17 resultswithin the time period is included. Mustapha James MD LAB BLOOD ORDERABLES Fin al Result * (ABNORMAL) Iron Profile (09/07/2024 2:42 PM EDT) Pathologist [facility] TIBC 454(H) 250 - 450 ug/dL [facility] UIBC 431(H) 118 - 369 ug/dL [facility] Iron 23(L) 27 - 139 ug/dL [facility] Iron Saturation 5(L) 15 - 55 % [facility] Blood 09/07/2024 2:42 PM EDT 09/07/2024 Narrative [facility] (AMBULATORY) - 09/08/2024 8:11 AM EDT Performed at: [address] [place] [id number] Electric Meter Tester Helper: Jason Bullock PhD, Phone: [phone] Patient Fasting: Y Mustapha James MD LAB BLOOD ORDERABLES Fin al Result [facility] (AMBULATORY) [address] [place] [address], [place] [phone] [facility] [address] [place] [address], [place] [phone] * (ABNORMAL) CBC (No Diff) (09/07/2024 2:42 PM EDT) Pathologist [facility] WBC 10.1 3.4 - 10.8 x10E3/uL [facility] [...] - 09/08/2024 8:11 AM EDT Performed at: [address] [id number] Electric Meter Tester Helper: Jason Bullock PhD, Phone: [phone] Patient Fasting: Y Mustapha James MD LAB BLOOD ORDERABLES Fin al Result Performing Organization Address City/[facility] Co de Phone Number [facility] [address] [place] [address], [place] [phone] [facility] [address] [place] [address], [place] [phone] * (ABNORMAL) Ferritin (09/07/2024 2:42 PM EDT) [facility] Ferritin 14(L) 15 - 150 ng/mL [facility] Blood 09/07/2024 2:42 PM EDT 09/07/2024 Narrative [facility] (AMBULATORY) - 09/08/2024 8:11 AM EDT Performed at: [address] [id number] Electric Meter Tester Helper: Jason Bullock PhD, Phone: [phone] Patient Fasting: Y Mustapha James MD LAB BLOOD ORDERABLES Fin al Result Performing Organization Address City/[facility]/ZIP Co de Phone Number [facility] [address] [place] [address], [place] [phone] [facility] [address] [place] [address], [place] [phone] * (ABNORMAL) Albumin/Creatinine Ratio Urine (06/08/2024 1:03 [...] MD 02/15/2024 10:36 PM EDT Workstation ID: [id number] Narrative 02/15/2024 10:[address] CHEST [...] 10 mm which appears similar to priorstudy (2/113). No free fluid in the upper abdomen. [...] MD 02/15/2024 10:36 PM EDT Workstation ID: [id number] Derik Conn APRN IMG CT ORDERABLES Final R esult * SCANNED - MAMMO (05/19/2023) Anatomical Region Laterality Modality Other Mustapha James MD CHART REVIEW TABS Fin al Result * (ABNORMAL) Hemoglobin A1c (06/03/2022 2:35 PM EST) Hemoglobin A1C 5.7(H) 4.8 - 5.6 % [facility] Comment: Prediabetes: 5.7 - 6.4 Diabetes: >6.4 Glycemic control for adults with diabetes: <7.0 Blood 06/03/2022 2:35 PM EST 06/03/2022 Narrative [facility] (AMBULATORY) - 06/04/2022 10:36 AM EST Performed at: [address] [place] [id number] Electric Meter Tester Helper: Jason Bullock PhD, Phone: [phone] Mustapha James MD LAB BLOOD ORDERABLES Fin al Result [facility] (AMBULATORY) [address] [place] [address], [place] [phone] [facility] [address] [place] [address], [place] [phone] from Last 3 Months or Most Recently Relevant to Health [place] [address] [facility] MEDICARE ADVANTAGE PPO Advance Directives Documents on File Type Date Recorded 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
--- OUTSIDE RECORDS SUMMARY | 2024-12-05 13:06 | XMS_ITS | Encounter Summary ---
Author Organization [employer] ([place], [place], [place], [place]) Address [address] [place] [address] Care Team Providers Care After School Coordinator Name Role Phone Unavailable Primary Care Provider Unavailabl e Encounter Details Date Type Department Care Team (Late st Contact Info) Description 02/12/2019 Transcribed Document [facility] [place] [facility] [place] [address] ProviderRegina MD [address] [place] [address] Social History Tobacco Use Types Packs/Day [...] Henley MD - 02/12/2019 5:22 PM CDT [facility] [place] [address] THOMAS GTZ SRIRAM :1955 Visit Time:02/12/2019 Your Visit Summary Your Care Team Admitting Physician - TONY PEÑA MD-SUR Attending Physician - TONY PEÑA MD-SUR Primary Care Physician - JACKIE BABIN MD-FAM Referring Physician - JACKIE BABIN MD-FAM PHY, NOT LISTED Your Diagnosis Atherosclerosis of beaver arteries of extremities with intermittent claudication, unspecified extremity, Atherosclerosis of beaver arteries of extremities with intermittent claudication, unspecified [...] Appointment has been made with [facility]. Where: [address] [place], [place] [phone]- x13 Medications What How Much When Instructions Next Dose acetaminophen-hydrocodone ([place] 7.5 mg-325 mg oral tablet) 1 Tablet(s) [...] Document Reviewed: 05/14/2011 ExitCare?? Patient Information ??2013 [employer]. Angiogram, Care After This sheet gives you [...] and water are not available, use hand route sales associate. ? Change your dressing as told by [...] contrast dye from your body. ??? Take dwfm-pwd-tendnno and prescription medicines only as told by [...] 10/28/2005 Document Revised: 03/16/2017 Document Reviewed: 03/16/2017 [employer] Interactive Patient Education ?? 2019 [employer]. Moderate Conscious Sedation, Adult, Care After These [...] you are awake and alert. ??? Take ohuq-sju-rvdpmsf and prescription medicines only as told by [...] 01/30/2014 Document Revised: 09/13/2016 Document Reviewed: 07/31/2016 [employer] Interactive Patient Education ?? 2019 [place]. clopidogrel (kloe PID oh grel) Plavix What [...] may report side effects to FDA at 8-212-VOD-6460. What other drugs will affect clopidogrel? Certain other medicines may increase your risk of bleeding, including aspirin. Avoid taking aspirin unless your doctor tells you to. Tell your doctor about all your other medicines, especially: ?? any other medicines to treat or prevent blood clots; ?? a stomach acid urinalysis technician such as omeprazole, Nexium, or Prilosec; ?? an antidepressant; ?? an opioid medication; ?? a blood thinner--warfarin, Coumadin, Jantoven; or ?? NSAIDs (nonsteroidal anti-inflammatory drugs)--ibuprofen (Advil, Motrin), naproxen (Aleve), celecoxib, diclofenac, indomethacin, meloxicam, and others. This list is not complete. Other drugs may affect clopidogrel, including prescription and dtkc-kmb-xvhnpim medicines, vitamins, and herbal products. Not all [...] to ensure that the information provided by [employer]. ('[employer]') is accurate, up-to-date, and complete, but no guarantee is made to that effect. Drug information contained herein may be time sensitive. [employer] information has been compiled for use by healthcare practitioners and consumers in the [place] and therefore [employer] does not warrant that uses outside of the [place] are appropriate, unless specifically indicated otherwise. [employer]'s drug information does not endorse drugs, diagnose patients or recommend therapy. [employer] drug information is an informational resource designed [...] with your doctor, nurse or pharmacist. Copyright 6031-2408 [employer]. Version: 15.. Revision Date: 02/13/2018. Emergency Awareness [...] Assistance with quitting is available by contacting 1-989-SUKL-NOW. This is a free resource providing counseling, [...] was given the opportunity to ask questions. Patient/Communications Operator Name: Patient/Communications Operator Signature: Relationship to Patient: Clinician/Hospital Communications Operator Signature: Date: Electronically signed by [facility], [facility] Conversion Gauge Controller Andrew at 08/13/2022 11:17 AM CDT documented in this encounter Plan of Treatment Not on file documented as of this encounter Visit Diagnoses Not on filedocumented in this encounter
--- OUTSIDE RECORDS SUMMARY | 2024-12-05 13:06 | XMS_ITS | Referral Summary ---
Author Organization [employer] ([place], [place], [place], [place]) Address [address] [place] [address] Care Team Providers Care Deputy Sheriff Civil Division Name Role Phone Unavailable Primary Care Provider [...] Date Mathew rded Speak language other than Anguillan at home Not on file 05/13/2023 Want [...]
--- OUTSIDE RECORDS SUMMARY | 2024-12-05 13:06 | XMS_ITS | Encounter Summary ---
Author Organization [employer] ([place], [place], [place], [place]) Address [address] [place] [address] Care Team Providers Care Supervisor Grower Name Role Phone Unavailable Primary Care Provider Unavailabl e Encounter Details Date Type Department Care Team (Late st Contact Info) Description 03/14/2019 Transcribed Document [facility] Radiology [address] [place] [address] Martinez Miller MD [address] [facility] [place] [address] Social History Tobacco Use Types Packs/Day Years [...] skin and nails, Oral, Daily, 0 Refill(s) [place] 7.5 mg-325 mg oral tablet: 1 Tab, [...] Medication hair, skin and nails, Oral, Daily [place]ar 7.5 mg-325 mg oral tablet 1 Tab, [...] Problems Cervical spinal stenosis / SNOMED CT 860123058 / Confirmed Smoker / SNOMED CT 625631055 / Confirmed Sinusitis / SNOMED CT 77065608 / Confirmed Seasonal allergies / SNOMED CT 183758996 / Confirmed Restless leg / SNOMED CT 26640312 / Confirmed Colon polyps / SNOMED CT 615799215 / Confirmed Pneumonia / SNOMED CT 376520254 / Confirmed Peripheral vascular disease / SNOMED CT 3765347485 / Confirmed Peptic ulcer / SNOMED CT 96085152 / Confirmed Osteoporosis / SNOMED CT 759824723 / Confirmed Neuropathy, R arm / SNOMED CT 6916428581 / Confirmed Migraines / SNOMED CT 33720975 / Confirmed Skin cancer / SNOMED CT 0955885819 / Confirmed Hypertension / SNOMED CT 1392788442 / Confirmed Hyperlipidemia / SNOMED CT 87994198 / Confirmed Elevated cholesterol / SNOMED CT 32010599 / Confirmed Hiatal hernia / SNOMED CT 685246442 / Confirmed Hemorrhoids / SNOMED CT 995957279 / Confirmed H/O: TIA / SNOMED CT 093058747 / Confirmed GERD (gastroesophageal reflux disease) / SNOMED CT 469287338 / Confirmed Gastritis / SNOMED CT 9196469 / Confirmed Fibromyalgia / SNOMED CT 30912675 / Confirmed Fibroids / SNOMED CT 145050588 / Confirmed Endometriosis / SNOMED CT 2442910254 / Confirmed Diverticulitis / SNOMED CT 997387244 / Confirmed Sinus problem / SNOMED CT 3355275449 / Confirmed Known medical problems / SNOMED CT 845976585 / Confirmed white spots on MRI Known medical problems / SNOMED CT 866496815 / Confirmed anti nuclear A and A antibodies Constipation / SNOMED CT 14591487 / Confirmed COPD (chronic obstructive pulmonary disease) / SNOMED CT 61807923 / Confirmed Chronic cough / SNOMED CT 467399765 / Confirmed Chronic constipation / SNOMED CT 408708619 / Confirmed Stroke, possible / SNOMED CT 867901586 / Confirmed Bursitis / SNOMED CT 864675346 / Confirmed Bronchitis / SNOMED CT 20957536 / Confirmed Back pain / SNOMED CT 347391876 / Confirmed At risk for sleep apnea / IMO 10289676 / Confirmed Arthritis / SNOMED CT 6896526 / Confirmed Anemia / SNOMED CT 110092064 / Confirmed Allergic rhinitis / SNOMED CT 602880261 / Confirmed, Active Problems (40) Allergic rhinitis [...] EST Height Source Measured Height Entry Format [place] Height/Length, ZIMBABWEAN (ft) 0 ft Height/Length [place] 63 Inch CLINICALHEIGHT 160.02 cm [place] Body Weight 52 kg Weight Source Standing scale Weight Entry Format [place] Weight Armenian lb 189.1 lb CLINICALWEIGHT 85.95 kg Body [...] LLE weakness, uses cane. Integumentary: Warm, Dry, [place]. Neurologic: Alert, Oriented. Psychiatric: Cooperative, Appropriate mood [...]
--- OUTSIDE RECORDS SUMMARY | 2024-12-05 13:06 | XMS_ITS | Encounter Summary ---
Author Organization [employer] ([place], [place], [place], [place]) Address [address] [place] [address] Care Team Providers Care Alliance Director Name Role Phone Unavailable Primary Care Provider Unavailabl e Encounter Details Date Type Department Care Team (Late st Contact Info) Description 02/12/2019 Transcribed Document [facility] [place] [facility] [place] [address] ProviderRegina MD [address] [place] [address] Social History Tobacco Use Types Packs/Day [...] Henley MD - 02/12/2019 5:18 PM CDT [facility] [place] [address] THOMAS GTZ SRIRAM :1955 Visit Time:02/12/2019 Your Visit Summary Your Care Team Admitting Physician - TONY PEÑA MD-SUR Attending Physician - TONY PEÑA MD-SUR Primary Care Physician - JACKIE BABIN MD-FAM Referring Physician - JACKIE BABIN MD-FAM PHY, NOT LISTED Your Diagnosis Atherosclerosis of north fork arteries of extremities with intermittent claudication, unspecified extremity, Atherosclerosis of north fork arteries of extremities with intermittent claudication, unspecified [...] Appointment has been made with [facility]. Where: [address] [place], [place] [phone]- [phone] Medications What How Much When Instructions Next Dose acetaminophen-hydrocodone ([place] 7.5 mg-325 mg oral tablet) 1 Tablet(s) [...] Document Reviewed: 05/14/2011 ExitCare?? Patient Information ??2013 [employer]. Angiogram, Care After This sheet gives you [...] and water are not available, use hand gaming investigator. ? Change your dressing as told by [...] contrast dye from your body. ??? Take glon-hyn-ckwejzk and prescription medicines only as told by [...] 10/28/2005 Document Revised: 03/16/2017 Document Reviewed: 03/16/2017 [employer] Interactive Patient Education ?? 2019 [employer]. Moderate Conscious Sedation, Adult, Care After These [...] you are awake and alert. ??? Take kfsa-trq-tiwpzll and prescription medicines only as told by [...] 01/30/2014 Document Revised: 09/13/2016 Document Reviewed: 07/31/2016 [employer] Interactive Patient Education ?? 2019 [employer]. Emergency Awareness and Preventative Care STROKE is [...] Assistance with quitting is available by contacting 1-402-VIDU-NOW. This is a free resource providing counseling, [...] was given the opportunity to ask questions. Patient/Lactation Nurse Name: Patient/Lactation Nurse Signature: Relationship to Patient: Clinician/Hospital Lactation Nurse Signature: Date: Electronically signed by Mickey, [facility] Conversion Photoengraving Apprentice Andrew at 08/13/2022 11:16 AM CDT documented in this encounter Plan of Treatment Not on file documented as of this encounter Visit Diagnoses Not on filedocumented in this encounter
--- OUTSIDE RECORDS SUMMARY | 2024-12-05 13:06 | XMS_ITS | Encounter Summary ---
Author Organization [facility] Address [address] [id number] Care Team Providers Care Supervisor Locomotive Name Role Phone Mustapha James MD Primary Care Provider [phone] Miguel Lamb MD Unavailable [phone] Encounter Details Date Type Department Care Team (Latest Contact Info) Description 11/30/2024 Travel Social History Tobacco Use Types Packs/Day Years Used Date Smoking Tobacco: Former Cigarettes Smokeless Tobacco: Never Alcohol Use Standard [...] as of this encounter Functional Status * AUDIT-C Score Answer Date of Assessment Author 0 11/30/2024 10:55 AM Ariana Liu * Question Answer Date of Assessment Author Q1: How often do you have a drink containing alcohol? Never 11/30/2024 10:55 AM BIJANT Akanksha Li Q2: How many drinks containing alcohol do [...] Not difficult at all 11/30/2024 10:54 AM Celestino Liu * How difficult have these problems made it for you to do your work, take care of things at home, or get along with other people? Answer Date of Assessment Author Not difficult at all 11/30/2024 10:54 AM EDT Ariana Coto documented as of this encounter Plan of [...] as of this encounter Care Teams Supervisor Locomotive Relationship Specialty Start Date End Date Mustapha James MD [address] [place] [address] PCP - General 09/05/20 Miguel Lamb MD [address] [place] [address] Referring Physician Interventional Cardiology 08/16/24 documented as of this encounter
--- OUTSIDE RECORDS SUMMARY | 2024-12-05 13:06 | XMS_ITS | Encounter Summary ---
Author Organization [employer] ([place], [place], [place], [place]) Address [address] [place] [address] Care Team Providers Care Speech Language Specialist Name Role Phone Unavailable Primary Care Provider Unavailabl e Encounter Details Date Type Department Care Team (Late st Contact Info) Description 03/13/2019 Transcribed Document [facility] Family Medicine [facility] [place] [address] ProviderRegina MD [facility] [place] [address] Social History Tobacco Use Types [...] - Historical ProviderMD - 03/13/2019 1:53 PM AIR CONDITIONING COIL ASSEMBLER PAT Adult Entered On: 03/13/2019 13:59 EST Performed On: 03/13/2019 13:53 EST by Susie Hernández RN Height and Weight, Clinical Dosing Height Source : Measured Height Entry Format : [place] Height, Feet : 0 ft(Converted to: 0 cm, 0 Inch) Height, Inches : 63 Inch(Converted to: 5 ft 3 Inch, 160.02 cm) Clinical Height : 160.02 cm Weight Source : Standing scale Weight Entry Format : [place] Clinical Dosing Weight : 85.95 kg Weight, Pounds : 189.1 lb Body Surface Area (BSA) : 1.89 m2 Body Mass Index : 33.6 kg/m2 (HI) Mason Body Weight : 52 kg Susie Hernández RN - 03/14/2019 11:07 EST Health Histories Smoking Status : Former smoker, quit more than 30 days ago Smokeless Tobacco Status : Never Implant/Device Type, Grinder Set Up Operator Gear Tool and Model : neck fusion and lumbar [...] Susie Hernández RN - 03/13/2019 13:53 EST Maria Stein Suicide Severity Rating Scale (C-SSRS) CSSRS Past [...] Support Person/Pt Rep Name : Christine rodasgila [phone] Want Family/Rep/Phys Notified of Admit : No Emergency Contact #1 : see above Emergency Contact #1 Phone Number : . Emergency Contact #1 Relationship : . Emergency Contact #2 : . Emergency Contact #2 Phone Number : .. Emergency Contact #2 Relationship : . Information Obtained From : Patient Primary Language : Khmer Preferred Communication Mode : Verbal Communication Barrier [...]
--- OUTSIDE RECORDS SUMMARY | 2024-12-05 13:06 | XMS_ITS | Clinical Summary ---
Author Organization [facility] Address [address] [place] [address] Care Team Providers Care Foot And Ankle Surgeon Name Role Phone Mustapha James MD Primary Care Provider [phone] Miguel Lamb MD Unavailable [phone] Allergies Active Allergy Reactions Criticality Noted [...] by mouth daily. 0 Active HYDROcodone-joanne taminophen ([place]) 7.5-325 MG tablet Take 1 tablet by [...] 30 tablet 11 5 09/19/19 26 Active spironolactone (Aldactone) 25 MG tablet Take 1 tablet by mouth daily. Active torsemide (Demadex) 20 MG tablet Take 1 tablet by mouth daily. Active Active Problems Problem Noted Date Diagnosed [...] Encounters Date Type Department Care Team Description 11/30/2024 11:30 AM EDT Office Visit [facility] [address] [place] [address] Miguel Lmab MD Nonrheumatic aortic valve stenosis (Primary Dx); Coronary artery disease involving [place] coronary artery of [place] heart without angina pectoris; HFrEF (heart failure with reduced ejection fraction) ([facility]) 11/30/2024 Travel 11/02/2024 Telephone [facility] [address] [place] [address] Ariana Li 09/18/2024 8:30 AM EDT - 09/18/2024 10:30 AM EDT Surgery Cardiac Betting Agency Manager [address] [place] [address] Miguel Lamb MD Percutaneous coronary intervention [23052 (CPT )] 09/18/2024 7:17 AM EDT - 09/18/2024 3:19 PM EDT Hospital Encounter Cardiac Betting Agency Manager [address] [place] [address] Miguel Lamb MD S/P coronary artery stent placement Discharge Disposition: Home or Self Care from Last 3 Months Immunizations Immunization Administration Dates Next Due Influenza, high-dose, quadrivalent 01/23/2019 Pneumococcal, Unspecified 01/23/2019 Family History Medical History Relation Name Comments No Known Problems Father No Known Problems Mother Cancer Sister Heart failure Sister Relation Name Status Comments Father Mother Sister Social History Tobacco Use [...] Pulse 105 11/30/2024 10:56 AM EDT Temperature 36.6 C (97.8 F) 09/18/2024 10:53 AM EDT Respiratory Rate 32 09/18/2024 12:45 PM EDT Oxygen Saturation 90% 11/30/2024 10:56 AM EDT Inhaled Oxygen Concentration - - Weight 88.6 kg (195 lb 5.2 oz) 11/30/2024 10:56 AM EDT Height 160 cm (5' 3 ) 11/30/2024 10:56 AM EDT Body Mass Index 34.6 11/30/2024 10:56 AM EDT Plan of Treatment Health Maintenance Due Date [...] 2003 [facility]-Diabetes: Hemoglobin A1C 12/01/202212/2022, 07/07/2019, 07/04/2019 [id number] Vaccine ( season) 2023 02/24/2022, 04/01/2021, 08/06/2020, Additional history exists [facility]-Influenza Vaccine (#1) 12/24/202401/23, 03/31/2023, 03/02/2022, Additional history exists [facility]-Medicare Annual Wellness (AWV) 06/08/2025 06/08/2024, 03/31/2023 [facility]-DTaP,Tdap,and Td Vaccines (2 - Td or Tdap) 06/29/2025 06/30/2015 [facility]-Depression Screening 11/30/2025 11/30/2024, 06/24 [facility]-Pneumococcal Vaccine: 50+ Years Completed 03/31/2023, 01/23/2019, 09/30/2015 [facility]-RSV Vaccine: 60+ Years or Completed 08/04/2023 [facility]-Obesity Intervention Completed 025, 08/31/2024, 08/16/2024, Additional history exists HPV Vaccines Aged Out [...] this topic Medical Devices Implanted Type Area Business Mgr Device Identifier Shelf Expiration Date Model / Serial / Lot Stent [place] [employer] Rx 4.5mm X 12mm - [id number] Implanted:Qty: 1 on 08/30/2024 by Miguel Lamb MD at [facility]-[id number] 03/21/2027 [id number] UX / / [id number] Stent Coronary [place] Rx 3.00mm X 18mm - [id number] Implanted:Qty: 1 on 08/30/2024 by Miguel Lamb MD at [facility]-[id number] 06/14/2027 [id number] UX / / [id number] Stent Coronary [place] [employer] Rx 2.75mm X 30mm - [id number] Implanted:Qty: 1 on 09/18/2024 by Miguel Lamb MD at [facility]-[id number] 03/25/2027 [id number] UX / / [id number] Stent Coronary [place] Rx 3.00mm X 26mm - [id number] Implanted:Qty: 1 on 09/18/2024 by Miguel Lamb MD at [facility]-[id number] 06/21/2027 [id number] UX / / [id number] Stent Coronary [place] [employer] Rx 3.50mm X 12mm - [id number] Implanted:Qty: 1 on 09/18/2024 by Miguel Lamb MD at [facility]-[id number] 03/04/2027 [id number] UX / / [id number] Procedures Procedure Name Priority Date/Time Associated Diagnosis [...] PANEL, PLASMA Routine 09/18/2024 8:20 AM EDT HEMOGLOBIN A1C Routine 07/07/2019 2:34 AM [...] of an overlapping 3.5 x 12 mm [place] drug-eluting stent. Ostium flared to 4.0. 3. Serial 70% diffuse lesions of the mid-distal RCA s/p successful PCI with placement of overlapping 3.0 x 26 mm and 2.75 x 30 mm [place]it drug-eluting stents (proximal-distal). Recommendations: 1. Post-PCI [...] After confirming therapeutic activated clotting time, a Lear[place] wire was advanced beyond the lesion and into the distal RCA. We advanced an Emerge RX 2.5 x 20 mm balloon into the mid-dstial RCA lesion and inflated to 12 rachael. The balloon was withdrawn slightly and serial inflations performed using the same technique. We then advanced a 2.75 mm x 30 mm [place] drug eluting stent into the lesion and deployed at 12 rachael. We then placed and overlapping 3.0 x 26 mm [place]it drug-eluting stent proximal to the aforementioend stent, inflated to 12 rachael. Post-dilation of the proximal-mid stent was then carried out using a 3.0 NC balloon. We then closely evaluated the ostium which appeared to have disease and appeared to be uncovered. We then advanced a 3.5 x 12 mm [place] drug- eluting stent in the proximal RCA [...] The patient was transferred back to the labor relations representative holding area in good condition. Coronary Findings [...] 9:52 AM EDT) Only the most recent of2 resultswithin the time period is included. ACT (Low Range) 352 65 - 400 seconds 09/26/2024 9:35 AM EDT [facility] Bridge Engineer ID Mary Marin 09/26/2024 9:35 AM EDT [facility] [place] Device ID [id number] 09/26/2024 9:35 AM EDT [facility]ALTH[facility] Comment 09/26/2024 9:35 AM EDT [facility] Comment: ACT performed by [...] RESULTS Final Result [facility] [address] [place] [address] * (ABNORMAL) POCT creatinine (09/18/2024 8:24 AM EDT) [facility] Creatinine, Point of Care 1.2(H) 0.6 - 1.1 mg/dL 09/18/2024 8:28 AM EDT HEALTHCARE LAB POCT eGFR 48 mL/min/1. 73m*2 09/18/2024 8:28 AM EDT [facility]ALTHCARE LAB Bridge Engineer ID Rosangela Gallegos 09/18/2024 8:28 AM EDT HEALTHCARE LAB Device ID [id number] 09/18/2024 8:28 AM EDT [facility]ALTH[facility]ARE [facility] Comment 09/18/2024 8:28 AM EDT [facility] Comment:Testing performed on i-STAT at the point of care. Reported eGFRcr in mL/min/1.73m2 is based the CKD-EPI 2020 equation that does not use a race coefficient. Blood Venous blood specimen / Unknown 09/18/2024 8:24 AM EDT 09/18/2024 8:28 AM EDT us Miguel Lamb MD LAB POINT OF CARE ST DOCKED DEVICE UNSOLICITED RESULTS Final Result [facility] [address] LAB [address] [place] [address] * (ABNORMAL) CBC and differential (09/18/2024 8:20 AM EDT) [facility] WBC Count 8.79 3.70 - 10.30 10*3/uL LAB HEMATOLOGY METHOD 09/18/2024 8:38 AM EDT [facility] RBC Count 2.65(L) 3.90 - 5.20 10*6/uL LAB HEMATOLOGY METHOD 09/18/2024 8:38 AM EDT [facility] HGB 7.2(L) 11.2 - 15.7 g/dL LAB HEMATOLOGY METHOD 09/18/2024 8:38 AM EDT [facility] HCT 24.6(L) 34.0 - 45.0 % LAB HEMATOLOGY METHOD 09/18/2024 8:38 AM EDT [facility] Platelet Count 358 155 - 369 10*3/uL LAB HEMATOLOGY METHOD 09/18/2024 8:38 AM EDT [facility] MCV 93 79 - 98 fL LAB HEMATOLOGY METHOD 09/18/2024 8:38 AM EDT [facility] MCH 27.2 26.0 - 32.0 pg LAB HEMATOLOGY METHOD 09/18/2024 8:38 AM EDT [facility] MCHC 29.3(L) 30.7 - 35.5 g/dL LAB HEMATOLOGY METHOD 09/18/2024 8:38 AM EDT [facility] RDW 16.0(H) 11.5 - 14.5 % LAB HEMATOLOGY METHOD 09/18/2024 8:38 AM EDT [facility] MPV 10.4 8.8 - 12.5 fL LAB HEMATOLOGY METHOD 09/18/2024 8:38 AM EDT [facility] nRBC 0.0 <=0.0 per 100 WBCs LAB HEMATOLOGY METHOD 09/18/2024 8:38 AM EDT [facility] Differential Type Automated LAB HEMATOLOGY METHOD 09/18/2024 8:38 AM EDT [facility] Neutrophils % 90 % LAB HEMATOLOGY METHOD 09/18/2024 8:38 AM EDT [facility] Lymphocytes % 6 % LAB HEMATOLOGY METHOD 09/18/2024 8:38 AM EDT [facility] Monocytes % 2 % LAB HEMATOLOGY METHOD 09/18/2024 8:38 AM EDT [facility] Eosinophils % 1 % LAB HEMATOLOGY METHOD 09/18/2024 8:38 AM EDT [facility] Basophils % 0 % LAB HEMATOLOGY METHOD 09/18/2024 8:38 AM EDT [facility] Immature Granulocytes % 1 % LAB HEMATOLOGY METHOD 09/18/2024 8:38 AM EDT [facility] Neutrophils Absolute 7.96(H) 1.60 - 6.10 10*3/uL LAB HEMATOLOGY METHOD 09/18/2024 8:38 AM EDT [facility] Lymphocytes Absolute 0.56(L) 1.20 - 3.90 10*3/uL LAB HEMATOLOGY METHOD 09/18/2024 8:38 AM EDT [facility] Monocytes Absolute 0.13(L) 0.30 - 0.90 10*3/uL LAB HEMATOLOGY METHOD 09/18/2024 8:38 AM EDT [facility] Eosinophils Absolute 0.07 0.00 - 0.50 10*3/uL LAB HEMATOLOGY METHOD 09/18/2024 8:38 AM EDT [facility] Basophils Absolute 0.02 0.00 - 0.10 10*3/uL LAB HEMATOLOGY METHOD 09/18/2024 8:38 AM EDT [facility] Immature Granulocytes Absolute 0.05 0.00 - 0.06 10*3/uL LAB HEMATOLOGY METHOD 09/18/2024 8:38 AM EDT [facility] Blood Venous blood specimen / Unknown Venipuncture / Unknown 09/18/2024 8:20 AM EDT 09/18/2024 8:26 AM EDT Narrative [facility] - 09/18/2024 8:38 AM EDT Therapeutic decision making should be based on absolute values, rather than percentages. us Miguel Lamb MD LAB BLOOD ORDERABLES Final Resu lt [facility] [address] [place] [address] * (ABNORMAL) Basic metabolic panel (09/18/2024 8:20 AM EDT) Glucose, Plasma 157(H) 74 - 99 mg/dL 09/18/2024 8:58 AM EDT [facility] BUN, Plasma 17 8 - 23 mg/dL 09/18/2024 8:58 AM EDT [facility] Creatinine, Plasma 1.05 0.60 - 1.10 mg/dL 09/18/2024 8:58 AM EDT [facility] BUN/Creatinine Ratio 16 09/18/2024 8:58 AM EDT [facility] Sodium, Plasma 138 136 - 145 mmol/L 09/18/2024 8:58 AM EDT [facility] Potassium, Plasma 4.5 3.6 - 4.9 mmol/L 09/18/2024 8:58 AM EDT [facility] Chloride, Plasma 100 97 - 107 mmol/L 09/18/2024 8:58 AM EDT [facility] CO2, Plasma 23 22 - 29 mmol/L 09/18/2024 8:58 AM EDT [facility] Anion Gap 15 6 - 16 mmol/L 09/18/2024 8:58 AM EDT [facility] Total Calcium, Plasma 9.4 8.9 - 10.2 mg/dL 09/18/2024 8:58 AM EDT [facility] eGFRcr 56.9 mL/min/1.7 3m*2 09/18/2024 8:58 AM EDT [facility] Comment:Reported eGFRcr in m L/min/1.73m2 is based the CKD-EPI 2020 equation that does not use a race coefficient. Blood Venous blood specimen / Unknown Venipuncture / Unknown 09/18/2024 8:20 AM EDT 09/18/2024 8:27 AM EDT Miguel Lamb MD LAB BLOOD ORDERABLES Final Resu lt [facility] [address] [place] [address] * (ABNORMAL) Hemoglobin A1c (07/07/2019 2:34 AM [...] <6.0% Children and Adolescents <7.5% . Source: [place] [employer]. Standards of medical care in diabetes, 2017. Diabetes Care.2017:40 (suppl 1):S1-S135. . HbA1c assay performed by an ion-exchange chromatography method that is certified traceable to the DCCT. 07/07/2019 2:34 AM EDT 07/07/2019 2:46 AM EDT us Historical Provider LAB BLOOD ORDERABLES Sheyla caban Result SUNQUEST from Last 3 Months or Most Recently Relevant to Health Maintenance Insurance [facility] MEDICARE Advance Directives * [...] updated to appropriate status: Yes Care Teams Foot And Ankle Surgeon Relationship Specialty Start Date End Date Mustapha James MD [address] [place] [address] PCP - General 09/05/20 Miguel Lamb MD [address] [place] [phone] Referring Physician Interventional Cardiology 08/16/24
[2024-12-05] MEDS: ferumoxytoL 510 MG in 0.9 % SODIUM CHLORIDE 50 ML 268 MG IV (13:20)
[2024-12-05 13:23] VITALS: BP 88/61; PULSE 85; RESP 18; O2SAT 94
[2024-12-05 13:45] VITALS: BP 94/56; PULSE 85; RESP 18; O2SAT 94
== END 2024-12-05 13:45 | disposition home or self-care (01) ==
LOC: INF 13:03
PROVIDERS: PCP Family Medicine; Visit Provider Internal Medicine Medical Oncology
DX: D64.9 Anemia, unspecified (principal)
CPT/HCPCS: 96374; Q0138

== ENCOUNTER 2024-12-07 13:28 | Outpatient (CLI) | payer MEDICARE, SELFPAY ==
--- OUTSIDE RECORDS SUMMARY | 2024-11-30 11:30 | XMS_ITS | Encounter Summary ---
Author Organization [facility] Address [address] [id number] Care Team Providers Care Separator Tender Name Role Phone Mustapha James MD Primary Care Provider [phone] Miguel Lamb MD Unavailable Reason for Referral * Consultation (Routine) - Authorized Specialty Diagnoses / Procedures Referred By Contac t Referred To Contact Diagnoses Nonrheumatic aortic valve stenosis Janice Avila PA [address] [place] [address] Phone: tel: fax: Referral ID Status Reason Start Date Expiration Date V isits Requested Visits Authorized [id number] Authorized 11/30/2024 06/01/2026 1 1 * Imaging (Routine) - Pending Review Specialty Diagnoses / Procedures Referred By Contac t Referred To Contact Cardiology Diagnoses Nonrheumatic aortic valve stenosis Procedures Echo, Adult Transthoracic Complete Janice Avila PA [address] [place] [address] Phone: tel: fax: Referral ID Status Reason Start Date Expiration Date Visits Requested Visits Authorized [id number] Pending Review Perform Procedure 11/30/2024 06/01/2026 1 1 Reason for Visit * Reason Comments Follow-up Encounter Details Date Type Department Care Team (Late st Contact Info) Description 11/30/2024 11:30 AM EDT Office Visit [facility] [place] [address] [place] [address] Miguel Lamb MD [address] [place] [address] Nonrheumatic aortic valve stenosis (Primary Dx); Coronary artery disease involving venetie ira coronary artery of venetie ira heart without angina pectoris; HFrEF (heart failure with reduced ejection fraction) ([facility]) Social History Tobacco Use Types Packs/Day Years Used Date Smoking Tobacco: Former Cigarettes Smokeless Tobacco: Never Tobacco Cessation:Counseling Given: Not Answered Alcohol Use Standard Drinks/Week Comments Never 0 (1 standard drink = 0.6 oz pur e alcohol) PHQ-2 Answer Date Recorded Patient Health Questionnaire-2 Score 2 11/30/2024 PHQ-9 Answer Date Recorded Patient Health Questionnaire-9 Score 0 07/20/2024 AUDIT-C Answer Date Recorded Q1: How often do you have a drink containing alcohol? Never 11/30/2024 Q2: How many drinks containi ng alcohol do you have on a typical day when you are drinking? Patient does not drink Q3: How often do you have si x or more drinks on one occasion? Never 11/30/2024 Comments No Sex and Gender Information Value Date Recorded Sex Assigned at Not on file Legal Sex Female 6:55 PM EDT Gender Identity Not on file Sexual Orientation Not on file documented as of this encounter Last Filed Vital Signs Vital Sign Reading Time Taken Comments Blood Pressure 118/62 11/30/2024 10:56 AM EDT Pulse 105 11/30/2024 10:56 AM EDT Temperature - - Respiratory Rate - - Oxygen Saturation 90% 11/30/2024 10:56 AM EDT Inhaled Oxygen Concentration - - Weight 88.6 kg (195 lb 5.2 oz) 11/30/2024 10:56 AM EDT Height 160 cm (5' 3 ) 11/30/2024 10:56 AM EDT Body Mass Index 34.6 11/30/2024 10:56 AM EDT documented in this encounter Functional Status * AUDIT-C Score Answer Date of Assessment Author 0 11/30/2024 10:55 AM EDT Ariana Li * Question Answer Date of Assessment Author Q1: How often do you have a drink containing alcohol? Never 11/30/2024 10:55 AM Akanksha Liu Q2: How many drinks containing alcohol do you have on a typical day when you are drinking? Patient does not drink 11/30/2024 10:55 AM Ariana Liu Q3: How often do you have six or more drinks on one occasion? Never 11/30/2024 10:55 AM Akanksha Liu * Over the past 2 weeks, how often have you been bothered by any of the following problems? Question Answer Date of Assessment Author Little interest or pleasure in doing things Several days 11/30/2024 10:54 AM Akanksha Liu Feeling down, depressed, or hopeless Several days 11/30/2024 10:54 AM Akanksha Liu Patient Health Questionnaire -2 Score 2 11/30/2024 10:54 AM Akanksha Liu * Question Answer Date of Assessment Author Trouble falling or staying asleep, or sleeping too much Several days 11/30/2024 10:54 AM Ariana Liu Poor appetite or overeating Several days 11/30/2024 10 :54 AM Ariana Liu Feeling bad about yourself - or that you are a failure or have let yourself or your family down Not at all 11/30/2024 10:54 AM Akanksha Liu Trouble concentrating on things, such as reading the newspaper or watching television Several days 11/30/2024 10:54 AM Akanksha Liu Moving or speaking so slowly that other people could have noticed? Or the opposite - being so fidgety or restless that you have been moving around a lot more than usual. Several days 11/30/2024 10:54 AM Ariana Lynn i Thoughts that you would be better off or hurting yourself in some way Not at all 11/30/2024 10:54 AM Celestino Liu * If you checked off any problems on this questionnaire so far, Question Answer Date of Assessment Author How difficult have these problems made it for you to do your work, take care of things at home, or get along with other people? Not difficult at all 11/30/2024 10:54 AM EDT Celestino iL * How difficult have these problems made it for you to do your work, take care of things at home, or get along with other people? Answer Date of Assessment Author Not difficult at all 11/30/2024 10:54 AM EDT Ariana Coto documented as of this encounter Miscellaneous Notes * Progress Notes - Janice Avila PA - 11/30/2024 11:30 AM EDT Images from the original note were not included. Cardiology Clinic Note HPI Jodi Byrne is a 69 y.o. female who presents today for follow-up. Patient's medical history is significant for , CAD s/p LM PCI 06/2019, PAF, PAD s/p intravascular lithotripsy to left popliteal artery and left SFA with drug coated balloon angioplasty of same as well as AA reconstruction with kissing stents to bilateral iliac arteries 12/2021, HLD, HTN, COPD and former tobacco abuse. Patient was initially evaluated by the team in June at which time her aortic stenosis was not feltto be severe. She underwent stage coronary interventions. Patient states she has had progressive LE edema, wheezing and shortness of breath since his interventions at the end of August. She was seen by her primary treatment plant mechanic and medications were adjusted, but she reports minimal improvement in edema and symptoms. She had an echo yesterday to re-evaluate her aortic stenosis. 08/30/24 1. 90% ostial left main stenosis s/p successful PCI with placement of a 4.5 x 15 mm Becker [place] drug-eluting stent (overlapping with previously placed stent distally and 1-2 mm of stent extending in the aorta) 2. 70% heavily calcified distal left main severe in-stent re-stenosis s/p balloon angioplasty with a 3.5 NC balloon 3. 90% ostial RCA stenosis s/p successful PCI with placement of a 3.0 x 12 mm and 3.0 x 18 mm Becker Manjit drug-eluting stent. Proximal-mid stent post- dilated to 3.5. 4. Residual 70% tubular stenosis of the mid RCA 09/18/24 1. Previously placed proximal RCA stent is patent 2. 70% ostial RCA stenosis s/p successful PCI with placement of an overlapping 3.5 x 12 mm FrontierOnyx drug-eluting stent. Ostium flared to 4.0. 3. Serial 70% diffuse lesions of the mid-distal RCA s/p successful PCI with placement of overlapping 3.0 x 26 mm and 2.75 x 30 mm Becker [place] drug-eluting stents (proximal-distal). Review of Systems 14 Point ROS reviewed and is otherwise negative except as per HPI. The following portions of the chart were reviewed this encounter and updated as appropriate: Tobacco Allergies Meds Problems Med Hx Surg Hx Fam Hx Objective Medications Current Medications[1] Physical Exam Visit Vitals BP 118/62 Pulse 105 Ht 1.6 m (5' 3 ) Wt 88.6 kg (195 lb 5.2 oz) SpO2 90% BMI 34.60 kg/m?? Physical Exam Vitals and nursing note reviewed. Constitutional: Appearance: Normal appearance. HENT: Head: Normocephalic and atraumatic. Nose: Nose normal. Mouth/Throat: Mouth: Mucous membranes are moist. Eyes: Conjunctiva/sclera: Conjunctivae normal. Cardiovascular: Rate and Rhythm: Normal rate and regular rhythm. Pulses: Normal pulses. Heart sounds: S1 normal and S2 normal. Murmur heard. Systolic murmur is present with a grade of 2/6. Pulmonary: Effort: Pulmonary effort is normal. Breath sounds: Wheezing and rales present. Abdominal: General: Abdomen is flat. Palpations: Abdomen is soft. Musculoskeletal: General: Normal range of motion. Cervical back: Neck supple. Right lower leg: Edema present. Left lower leg: Edema present. Skin: General: Skin is warm and dry. Neurological: General: No focal deficit present. Mental Status: She is alert and oriented to person, place, and time. Psychiatric: Attention and Perception: Attention normal. Mood and Affect: Mood normal. Behavior: Behavior normal. Lab Review Lab Results Component Value Date BILITOT 1.0 07/16/2019 CALCIUM 9.4 09/18/2024 CO2 23 09/18/2024 CL 100 09/18/2024 CREATININE 1.05 09/18/2024 ALKPHOS 90 07/16/2019 K 4.5 09/18/2024 NA 138 09/18/2024 AST 53 (H) 07/16/2019 ALT 335 (H) 07/16/2019 BUN 17 09/18/2024 TRIG 228 07/04/2019 CHOL 200 07/04/2019 HDL 29 07/04/2019 WBC 8.79 09/18/2024 HGB 7.2 (L) 09/18/2024 HCT 24.6 (L) 09/18/2024 PLT 358 09/18/2024 MCV 93 09/18/2024 MCV 84 07/17/2019 TSH 2.48 06/08/2024 BNP 5,650 (H) 08/31/2024 Assessment and Plan Problem List Items Addressed This Visit Coronary artery disease HFrEF (heart failure with reduced ejection fraction) ([facility]) Nonrheumatic aortic valve stenosis - Primary Relevant Orders Echo, Adult Transthoracic Complete Follow Up Cardiology #CAD #HFrEF #Aortic Stenosis --Echo from OSH completed yesterday reviewed by Dr. Lamb showing reduced LV function with moderate aortic stenosis --Patient admits to increasing shortness of breath and edema --Valve does not appear ready for intervention on most recent echo --Continue to follow with general treatment plant mechanic for medical management of symptoms --Continue DAPT after extensive coronary work in August 2024 Continue following with general treatment plant mechanic, follow-up in 1 year with echo prior. I spent 35 minutes performing the following components of the encounter (on the day of the encounter): reviewing History, examining the patient, reviewing imaging and/or labs, Independently interpreting echocardiogram, ECG and/or other imaging results, counseling the patient and family/caregiver, communicating with other health career services representative, and entering clinical information in the EHR. Greater than 50% of the time spent on the encounter was face to face providing direct patient care, counseling for the patient/caregiver, and care coordination. Janice Avila PA-C [1] Current Outpatient Medications Medication Sig Dispense Refill albuterol 108 (90 Base) MCG/ACT inhaler Inhale [...] tablet by mouth daily. 30 tablet 11 diazePAM (Valium) 5 MG tablet Take 1 tablet by mouth 2 times a day. diphenhydrAMINE (Benadryl) 50 MG tablet Take 1 tablet 1 hour prior to surgery 1 tablet 1 Evolocumab (Repatha) 140 MG/ML solution prefilled syringe Inject under the skin. famotidine (Pepcid) 20 MG tablet Take 1 tablet by mouth twice a day. fluticasone (Flonase) 50 MCG/ACT nasal spray Administer 1 spray into each nostril daily. Bkoqdufnkys-Qdozyhpbw-Jiiskm (Trelegy Ellipta) 100-62.5-25 MCG/ACT aerosol powder Inhale. HYDROcodone-acetaminophen (Harper) 7.5-325 MG tablet Take 1 tablet by mouth every 8 hours as needed. lansoprazole (Prevacid) [address] capsule Take 1 capsule by mouth daily. levothyroxine (Synthroid, Levoxyl) 50 MCG tablet Take 1 tablet by mouth daily before breakfast. lisinopril 20 MG tablet Take 1 tablet by mouth daily. metoprolol succinate XL (Toprol-XL) 50 MG 24 hr tablet Take 1 tablet by mouth daily. Do not crush or chew. montelukast (Singulair) 10 MG tablet Take 1 tablet by mouth nightly. nitroglycerin (Nitrostat) 0.[address] 1 tablet under the tongue every 5 minutes as needed for chest pain. 30 tablet 11 spironolactone (Aldactone) 25 MG tablet Take 1 tablet by mouth daily. torsemide (Demadex) 20 MG tablet Take 1 tablet by mouth daily. VITAMIN D, CHOLECALCIFEROL, PO Take by mouth. furosemide (Lasix) 20 MG tablet Take 1 tablet by mouth daily. (Patient not taking: Reported on 11/30/2024) Multiple Vitamins-Iron tablet Take 1 tablet by mouth daily. (Patient not taking: Reported on 11/30/2024) Nexletol 180 MG tablet Take 1 tablet by mouth daily. No current facility-administered medications for this visit. documented in this encounter Plan of Treatment Upcoming Encounters Date Type Department Care Team (Late st Contact Info) Description 12/06/2025 12:00 PM EDT Appointment Cardiac Imaging [address] [place] [address] 12/06/2025 1:30 PM EDT Office Visit [facility] [address] [place] [address] Miguel Lamb MD [address] [place] [address] Scheduled Orders Name Type Priority Associated Diagnoses Order Schedule Echo, Adult Transthoracic Complete Echocardiography Routine Nonrheumatic aortic valve stenosis 1 Occurrences starting 11/30/2024 until 06/03/2026 Scheduled Referrals Name Type Priority Associated Diagnoses Order Schedule Follow Up Cardiology Outpatient Referral Routine Nonrheumatic aortic valve stenosis Expected: 11/30/2025, Expires: 06/02/2026 documented as of this encounter Visit Diagnoses Diagnosis Nonrheumatic aortic valve stenosis- Primary Coronary artery disease involving venetie ira coronary artery of venetie ira heart without angina pectoris HFrEF (heart failure with reduced ejection fraction) ([facility]) documented in this encounter Additional Health Concerns Assessment Noted Time PHQ-9 Depression Total Score: 0 07/21/19 11:35 AM EDT A fall risk assessment has been complete d for the patient 11/30/2024 10:54 AM EDT A Body Mass Index follow-up plan has been documented for the patient 11/30/2024 11:54 AM EDT documented as of this encounter Care Teams Separator Tender Relationship Specialty Start Date End Date Mustapha James MD [address] [place] [id number] PCP - General 09/05/20 Miguel Lamb MD [address] [place] [address] Referring Physician Interventional Cardiology 08/16/24 documented as of this encounter
--- OUTSIDE RECORDS SUMMARY | 2024-12-06 06:05 | XMS_ITS | Encounter Summary ---
[facility] Address [address] [place] [address] Care Team Providers Care Cut Off Machine Helper Name Role Phone Mustapha James MD Primary Care Provider + Encounter Details Date Type Department Care Team (Late st Contact Info) Description 12/06/2024 6:05 AM EDT Hospital Encounter [facility] [address] [place] [phone] Arrived Social History Tobacco Use Types Packs/Day Years [...] Care Team (Late st Contact Info) Description 12/27/2024 2:00 PM EDT Office Visit [facility] [address] [place] [address] Mustapha James MD [address] [place] [address] documented as of this encounter Visit Diagnoses Not on filedocumented in this encounter Additional Health Concerns Assessment Noted Time PHQ-2 Depression Total Score: 1 10/24/19 24 2:19 PM EDT documented as of this encounter Care Teams Cut Off Machine Helper Relationship Specialty Start Date End Date Mustapha James MD [address] [place] [address] PCP - General Family Medicine 01/02/24 documented as of this encounter
--- OUTSIDE RECORDS SUMMARY | 2024-12-06 14:00 | XMS_ITS | Encounter Summary ---
Author Organization [facility] Address [address] [place] [address] Care Team Providers Care Rail Car Repairman Name Role Phone Mustapha James MD Primary Care Provider + Encounter Details Date Type Department Care Team (Late st Contact Info) Description 12/06/2024 2:00 PM EDT Clinical Support [facility] [address] [place] [address] Chirag Mckee MD [address] [place] [address] NSCLC of right lung (Primary Dx) Social [...] directed by provider Daily., Disp: , Rfl: Rgdosxagkcu-Bamttjznb-Xgrici (Trelegy Ellipta) 100-62.5-25 MCG/ACT inhaler, Inhale 1 [...] 25 tablet, Rfl: 1 nystatin-triamcinolone (MYCOLOG II) 492949-1.1 UNIT/GM-% cream, Apply 1 Application topically to the appropriate area as directed 2 (Two) Times a Day., Disp: 60 g, Rfl: 1 Repatha SureClick solution auto-injector SureClick injection, , Disp: , Rfl: torsemide (DEMADEX) 20 MG tablet, Take 1 tablet by mouth Daily., Disp: 30 tablet, Rfl: 0 vitamin D (ERGOCALCIFEROL) 1.25 MG (78535 UT) capsule capsule, TAKE 1 CAPSULE BY [...] MD 02/15/2024 10:36 PM EDT Workstation ID: [id number] I reviewed the patient's planning scan and [...] previous treatments. 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 I would recommend a PET scan [...] recognition software and not all errors in marketing recruiter may have been detected prior to signing. documented in this encounter Plan of Treatment Upcoming Encounters Date Type Department Care Team (Late st Contact Info) Description 12/27/2024 2:00 PM EDT Office Visit [facility] [address] [place] [address] Mustapha James MD [address] [place] [address] documented as of this encounter Visit Diagnoses Diagnosis NSCLC of right lung- Primary documented in this encounter Additional Health Concerns Assessment Noted Time PHQ-2 Depression Total Score: 1 10/24/19 24 2:19 PM EDT documented as of this encounter Care Teams Rail Car Repairman Relationship Specialty Start Date End Date Mustapha James MD [address] [place] [address] PCP - General Family Medicine 01/02/24 documented as of this encounter
--- OUTSIDE RECORDS SUMMARY | 2024-12-07 13:29 | XMS_ITS | Continuity of Care Document ---
Author Organization [facility]. If a dditional information is needed, contact Health Information Management at [phone] Address [address] [place] [address] Phone Care Team Providers Care Coagulating Operator Name Role Phone Unavailable Unavailable Unavailable Encounters pre-admission 13-Apr-2023 14:06 ROSALINDA (Attending) Tristen
--- OUTSIDE RECORDS SUMMARY | 2024-12-07 13:30 | XMS_ITS | Encounter Summary ---
Author Organization [facility] Address [address] [place] [address] Care Team Providers Care Service Mechanic Name Role Phone Mustapha James MD Primary Care Provider + Encounter Details Date Type Department Care Team (Late st Contact Info) Description 12/03/2024 Documentation [facility] [address] [place] [address] Bertha Ambrose, PATRICIA Social History [...] Description 12/27/2024 2:00 PM EDT Office Visit [facility] [address] [facility] [place] [phone] Mustapha James MD [address] [place] [address] documented as of this encounter Visit Diagnoses Not on filedocumented in this encounter Additional Health Concerns Assessment Noted Time PHQ-2 Depression Total Score: 1 10/24/19 24 2:19 PM EDT documented as of this encounter Care Teams Service Mechanic Relationship Specialty Start Date End Date Mustapha James MD [address] [place] [address] PCP - General Family Medicine 01/02/24 documented as of this encounter
--- OUTSIDE RECORDS SUMMARY | 2024-12-07 13:30 | XMS_ITS | Encounter Summary ---
Author Organization [facility] Address [address] [place] [address] Care Team Providers Care Wire Brush Maker Name Role Phone Mustapha James MD Primary Care Provider + Encounter Details Date Type Department Care Team (Late st Contact Info) Description 12/03/2024 Telephone [facility] [address] [place] [address] Bertha Ambrose, PATRICIA Social History [...] Mckee on 12/09 @ 2pm [address] [facility]. documented in this encounter Plan of Treatment Upcoming Encounters Date Type Department Care Team (Late st Contact Info) Description 12/27/2024 2:00 PM EDT Office Visit [facility] [address] [facility] [place] [phone] Mustapha James MD [address] [place] [address] documented as of this encounter Visit Diagnoses Not on filedocumented in this encounter Additional Health Concerns Assessment Noted Time PHQ-2 Depression Total Score: 1 10/24/19 2:19 PM EDT documented as of this encounter Care Teams Wire Brush Maker Relationship Specialty Start Date End Date Mustapha James MD [address] [place] [address] PCP - General Family Medicine 01/02/24 documented as of this encounter
--- OUTSIDE RECORDS SUMMARY | 2024-12-07 13:31 | XMS_ITS | Encounter Summary ---
Author Organization [employer] ([place], [place], [place], [place]) Address [address] [place] [address] Care Team Providers Care Urban Sociologist Name Role Phone Unavailable Primary Care Provider Unavailabl e Encounter Details Date Type Department Care Team (Late st Contact Info) Description 02/12/2019 Transcribed Document [facility] Family Medicine [facility] [place] [address] ProviderRegina MD [address] [place] [address] Social History Tobacco Use Types Packs/Day [...] Henley MD - 02/12/2019 5:22 PM CDT [facility] [place] [address] THOMAS GTZ SRIRAM :1955 Visit Time:02/12/2019 Your Visit Summary Your Care Team Admitting Physician - TONY PEÑA MD-SUR Attending Physician - TONY PEÑA MD-SUR Primary Care Physician - JACKIE BABIN MD-FAM Referring Physician - JACKIE BABIN MD-FAM PHY, NOT LISTED Your Diagnosis Atherosclerosis of oneida arteries of extremities with intermittent claudication, unspecified extremity, Atherosclerosis of oneida arteries of extremities with intermittent claudication, unspecified [...] Appointment has been made with [facility]. Where: [address] [place], [place] [phone] Medications What How Much When Instructions Next Dose acetaminophen-hydrocodone ([place] 7.5 mg-325 mg oral tablet) 1 Tablet(s) [...] Document Reviewed: 05/14/2011 ExitCare?? Patient Information ??2013 Rubicon Project. Angiogram, Care After This sheet gives you [...] and water are not available, use hand bottling room worker. ? Change your dressing as told by [...] contrast dye from your body. ??? Take nhhx-kii-syqzqol and prescription medicines only as told by [...] 10/28/2005 Document Revised: 03/16/2017 Document Reviewed: 03/16/2017 [employer] Patient Education ?? 2019 Niche. Moderate Conscious Sedation, Adult, Care After These [...] you are awake and alert. ??? Take gckk-fju-zzuougt and prescription medicines only as told by [...] 01/30/2014 Document Revised: 09/13/2016 Document Reviewed: 07/31/2016 [employer] Interactive Patient Education ?? 2019 Niche. clopidogrel (kloe PID oh grel) Plavix What [...] may report side effects to FDA at 1-185-QGR-9089. What other drugs will affect clopidogrel? Certain other medicines may increase your risk of bleeding, including aspirin. Avoid taking aspirin unless your doctor tells you to. Tell your doctor about all your other medicines, especially: ?? any other medicines to treat or prevent blood clots; ?? a stomach acid information systems professor such as omeprazole, Nexium, or Prilosec; ?? an antidepressant; ?? an opioid medication; ?? a blood thinner--warfarin, Coumadin, Jantoven; or ?? NSAIDs (nonsteroidal anti-inflammatory drugs)--ibuprofen (Advil, Motrin), naproxen (Aleve), celecoxib, diclofenac, indomethacin, meloxicam, and others. This list is not complete. Other drugs may affect clopidogrel, including prescription and kwtv-axm-uetajcg medicines, vitamins, and herbal products. Not all [...] to ensure that the information provided by [employer]. ('[employer]') is accurate, up-to-date, and complete, but no guarantee is made to that effect. Drug information contained herein may be time sensitive. [employer] information has been compiled for use by healthcare practitioners and consumers in the [place] and therefore [employer] does not warrant that uses outside of the [place] are appropriate, unless specifically indicated otherwise. [employer]'s drug information does not endorse drugs, diagnose patients or recommend therapy. [employer] drug information is an informational resource designed [...] with your doctor, nurse or pharmacist. Copyright 9361-9742 [employer]. Version: 15.. Revision Date: 02/13/2018. Emergency Awareness [...] Assistance with quitting is available by contacting 7-236-PZYM-NOW. This is a free resource providing counseling, [...] was given the opportunity to ask questions. Patient/Passenger Relations Representative Name: Patient/Passenger Relations Representative Signature: Relationship to Patient: Clinician/Hospital Passenger Relations Representative Signature: Date: Electronically signed by [facility], [facility] Conversion Arborer Andrew at 08/13/2022 11:17 AM CDT documented in this encounter Plan of Treatment Not on file documented as of this encounter Visit Diagnoses Not on filedocumented in this encounter
--- OUTSIDE RECORDS SUMMARY | 2024-12-07 13:31 | XMS_ITS | Encounter Summary ---
Author Organization [employer] ([place], [place], [place], [place]) Address [address] [place] [address] Care Team Providers Care Manager Roofing Name Role Phone Unavailable Primary Care Provider Unavailabl e Encounter Details Date Type Department Care Team (Late st Contact Info) Description 03/14/2019 Transcribed Document [facility] Radiology [address] [place] [address] Martinez Miller MD [address] [facility] [place] [address] Social History Tobacco Use Types Packs/Day Years [...] skin and nails, Oral, Daily, 0 Refill(s) [place] 7.5 mg-325 mg oral tablet: 1 Tab, [...] Medication hair, skin and nails, Oral, Daily [place] 7.5 mg-325 mg oral tablet 1 Tab, [...] Problems Cervical spinal stenosis / SNOMED CT 023143169 / Confirmed Smoker / SNOMED CT 534252261 / Confirmed Sinusitis / SNOMED CT 82188312 / Confirmed Seasonal allergies / SNOMED CT 193501346 / Confirmed Restless leg / SNOMED CT 08418270 / Confirmed Colon polyps / SNOMED CT 813872665 / Confirmed Pneumonia / SNOMED CT 909923873 / Confirmed Peripheral vascular disease / SNOMED CT 9802159216 / Confirmed Peptic ulcer / SNOMED CT 61105531 / Confirmed Osteoporosis / SNOMED CT 580590925 / Confirmed Neuropathy, R arm / SNOMED CT 2260889593 / Confirmed Migraines / SNOMED CT 97524053 / Confirmed Skin cancer / SNOMED CT 3397115454 / Confirmed Hypertension / SNOMED CT 3446173551 / Confirmed Hyperlipidemia / SNOMED CT 81376592 / Confirmed Elevated cholesterol / SNOMED CT 13586413 / Confirmed Hiatal hernia / SNOMED CT 143553438 / Confirmed Hemorrhoids / SNOMED CT 140676166 / Confirmed H/O: TIA / SNOMED CT 077120715 / Confirmed GERD (gastroesophageal reflux disease) / SNOMED CT 127558518 / Confirmed Gastritis / SNOMED CT 3899737 / Confirmed Fibromyalgia / SNOMED CT 13029985 / Confirmed Fibroids / SNOMED CT 199043795 / Confirmed Endometriosis / SNOMED CT 5813174933 / Confirmed Diverticulitis / SNOMED CT 899911213 / Confirmed Sinus problem / SNOMED CT 8189809320 / Confirmed Known medical problems / SNOMED CT 957632864 / Confirmed white spots on MRI Known medical problems / SNOMED CT 361018032 / Confirmed anti nuclear A and A antibodies Constipation / SNOMED CT 35789089 / Confirmed COPD (chronic obstructive pulmonary disease) / SNOMED CT 13131628 / Confirmed Chronic cough / SNOMED CT 655497094 / Confirmed Chronic constipation / SNOMED CT 202161698 / Confirmed Stroke, possible / SNOMED CT 585336235 / Confirmed Bursitis / SNOMED CT 628049338 / Confirmed Bronchitis / SNOMED CT 39471890 / Confirmed Back pain / SNOMED CT 705990157 / Confirmed At risk for sleep apnea / IMO 41916063 / Confirmed Arthritis / SNOMED CT 3082170 / Confirmed Anemia / SNOMED CT 294321311 / Confirmed Allergic rhinitis / SNOMED CT 731384543 / Confirmed, Active Problems (40) Allergic rhinitis [...] EST Height Source Measured Height Entry Format [place] Height/Length, GUINEAN (ft) 0 ft Height/Length GUINEAN 63 Inch CLINICALHEIGHT 160.02 cm [place] Body Weight 52 kg Weight Source Standing scale Weight Entry Format [place] Weight Mongolian lb 189.1 lb CLINICALWEIGHT 85.95 kg Body [...] LLE weakness, uses cane. Integumentary: Warm, Dry, [place]. Neurologic: Alert, Oriented. Psychiatric: Cooperative, Appropriate mood [...]
--- OUTSIDE RECORDS SUMMARY | 2024-12-07 13:31 | XMS_ITS | Encounter Summary ---
Author Organization [employer] ([place], [place], [place], [place]) Address [address] [place] [address] Care Team Providers Care Professional Caster Name Role Phone Unavailable Primary Care Provider Unavailabl e Encounter Details Date Type Department Care Team (Late st Contact Info) Description 02/09/2019 Transcribed Document [facility] Family Medicine [facility] [place] [address] ProviderRegina MD [address] [place] [address] Social History Tobacco Use Types Packs/Day [...] Source : Measured Height Entry Format : [place] Height, Inches : 63 Inch(Converted to: 5 ft 3 Inch, 160.02 cm) Clinical Height : 160.02 cm Weight Source : Standing scale Weight Entry Format : [place] Clinical Dosing Weight : 85.91 kg Weight, Pounds : 189 lb Body Surface Area (BSA) : 1.89 m2 Body Mass Index : 33.6 kg/m2 (HI) [place] Body Weight : 52 kg ABRAHAM STOKES RN - 02/12/2019 11:04 EDT Health Histories Smoking Status : 4 or less cigarettes(less than 1/4 pack)/day in last 30 days Smokeless Tobacco Status : Never Desires Tobacco Cessation Medication : No Reason for No Tobacco Cessation Medication : Refuses FDA approved medications Implant/Device Type, Social Service Director and Model : neck fusion and lumbar [...] Obtained From : Patient Primary Language : Belarusian Communication Barrier : None MARY MCGRAW RN [...]
--- OUTSIDE RECORDS SUMMARY | 2024-12-07 13:31 | XMS_ITS | Encounter Summary ---
Author Organization [employer] ([place], [place], [place], [place]) Address [address] [place] [address] Care Team Providers Care Principal Systems Architect Name Role Phone Unavailable Primary Care Provider Unavailabl e Encounter Details Date Type Department Care Team (Late st Contact Info) Description 02/12/2019 Transcribed Document [facility] Family Medicine [facility] [place] [address] ProviderRegina MD [facility] [place] [address] Social History Tobacco Use Types [...] Regina ProviderMD - 02/12/2019 2:12 PM CDT [facility] Main OR IntraOp Summary Primary Physician: TONY PEÑA MD-SUR Finalized Date/Time: 02/13/19 11:43:16 Pt. Name: JODI GTZ SRIRAM Reynolds/Sex: 1955 Female Med Rec #: [id number] Physician: TONY PEÑA MD-SUR Financial #: [id number] Pt. Type: O Room/Bed: /11 Admit/Disch: 02/12/19 09:27:00 - 02/12/19 18:10:00 Institution: [facility] IntraOp Case Attendance Entry 1 Entry 2 Entry 3 Case Attendee TONY PEÑA MD-SUR Napier, Elizabeth A, RN Murphy, Whitney, [employer] Role Performed Surgeon/Proceduralist, Front Office Secretary, First Microbiology Lab Technician First Time In 02/12/19 13:51:00 02/12/19 13:51:00 [...] CALDWELL, JOSEPH A, ROMARIO COWAN MD-ANS Cardiovascular Microbiology Lab Technician Role Performed Microbiology Lab Technician CHLORINATION OPERATOR/Nurse Senior Business Broker Anesthesiologist of Record Time In 02/12/19 13:51:00 [...] Lexus Linda, Martha Zamora RN Role Performed Front Office Secretary, First Front Office Secretary, Second Time In 02/12/19 14:55:00 02/12/19 13:51:00 Time Out 02/12/19 15:09:00 02/12/19 15:09:00 Procedure Aortogram Abdominal Aortogram Abdominal with Runoff(Right), with Runoff(Right), Arterial Stent Arterial Stent Endovascular(Right) Endovascular(Right) Other Attendee Superficial Wound Closed By: Last Modified By: Lexus Linda, Rn Adilene Dhillon RN 02/12/19 15:50:49 02/13/19 07:01:08 [facility] IntraOp Case Attendance Audit 02/13/19 07:01:21 Rac Specialist: JONN Modifier: EANAPIER 8 <*> Procedure Aortogram Abdominal with Runoff(Right), Arterial Stent Endovascular(Right) 02/13/19 07:01:08 Rac Specialist: JONN Modifier: EANAPIER 1 <*> Procedure Aortogram [...] with Runoff(Right), Arterial Stent Endovascular(Right) 02/13/19 07:01:03 Rac Specialist: MEDARDO Modifier: EANAPIER 2 <*> Time Out 02/12/19 15:09:00 2 <*> Procedure Aortogram Abdominal with Runoff(Right), Arterial Stent Endovascular(Right) <+> 8 Case Attendee <+> 8 Role Performed <+> 8 Procedure 02/12/19 15:53:28 Rac Specialist: SUSANSLOAN Modifier: SUSANSLOAN 7 <*> Time In 02/12/19 15:55:00 7 <*> Procedure Aortogram Abdominal with Runoff(Right), Arterial Stent Endovascular(Right) 02/12/19 15:51:08 Rac Specialist: SUSANSLOAN Modifier: SUSANSLOAN 7 <*> Procedure Arterial Stent Endovascular(Right) 02/12/19 15:50:49 Rac Specialist: SUSANSLOAN Modifier: SUSANSLOAN 7 <*> Time Out 02/12/19 15:48:00 7 <*> Procedure Arterial Stent Endovascular(Right) 02/12/19 15:50:15 Rac Specialist: SUSANSLOAN Modifier: SUSANSLOAN 7 <+> Role Performed 7 <*> Procedure Arterial Stent Endovascular(Right) 02/12/19 15:49:22 Rac Specialist: EANAPIER Modifier: SUSANSLOAN 1 <+> Time Out [...] Time Out <+> 7 Procedure 02/12/19 14:50:28 Rac Specialist: EANAPIER Modifier: EANAPIER 1 <*> Procedure Aortogram Abdominal with Runoff(Right) 2 <*> Procedure Aortogram Abdominal with Runoff(Right) 3 <*> Procedure Aortogram Abdominal with Runoff(Right) 4 <*> Procedure Aortogram Abdominal with Runoff(Right) 5 <*> Procedure Aortogram Abdominal with Runoff(Right) 6 <*> Procedure Aortogram Abdominal with Runoff(Right) 02/12/19 14:30:54 Rac Specialist: EANAPIER Modifier: EANAPIER 1 <*> Procedure Aortogram Abdominal with Runoff(Right) 2 <*> Procedure Aortogram Abdominal with Runoff(Right) 3 <*> Procedure Aortogram Abdominal with Runoff(Right) 4 <*> Procedure Aortogram Abdominal with Runoff(Right) 5 <*> Procedure Aortogram Abdominal with Runoff(Right) 6 <+> Time In 6 <*> Procedure Aortogram Abdominal with Runoff(Right) 02/12/19 14:24:03 Rac Specialist: EANAPIER Modifier: EANAPIER 1 <*> Case Attendee TONY PEÑA MD-JESUS 1 <*> Role Performed Surgeon/Proceduralist, First 1 <*> Time In 02/12/19 13:51:00 1 <*> Procedure Aortogram Abdominal with Runoff(Right) 2 <*> Case Attendee Adilene Dhillon RN 2 <*> Role Performed Front Office Secretary, First 2 <*> Time In 02/12/19 13:51:00 2 <*> Procedure Aortogram Abdominal with Runoff(Right) 3 <*> Case Attendee Mayra Castrejon, [employer] 3 <*> Role Performed Microbiology Lab Technician 3 <*> Time In 02/12/19 13:51:00 3 <*> Procedure Aortogram Abdominal with Runoff(Right) 4 <*> Case Attendee Coco Pfeiffer, Cardiovascular Microbiology Lab Technician 4 <*> Role Performed Microbiology Lab Technician 4 <*> Time In 02/12/19 13:51:00 4 <*> Procedure Aortogram Abdominal with Runoff(Right) 5 <*> Case Attendee EVERETT FREED CHLORINATION OPERATOR 5 <*> Role Performed CHLORINATION OPERATOR/Nurse Senior Business Broker 5 <*> Time In 02/12/19 13:51:00 5 <*> Procedure Aortogram Abdominal with Runoff(Right) Entry 6 was deleted. Higher numbered entries shifted one position to fill the gap. <-> 6 Case Attendee MUSTAPHA DUTTON MD-ANS <-> 6 Role Performed Anesthesiologist of Record <-> 6 Time In 02/12/19 13:51:00 <-> 6 Procedure Aortogram Abdominal with Runoff(Right) 02/12/19 14:15:54 Rac Specialist: EANAPILUIS Modifier: EANAPIER <+> 1 Procedure 2 <+> Time In 2 <*> Procedure Aortogram Abdominal with Runoff(Right) 3 <+> Time In 3 <*> Procedure Aortogram Abdominal with Runoff(Right) 4 <+> Time In 4 <*> Procedure Aortogram Abdominal with Runoff(Right) 5 <+> Time In 5 <*> Procedure Aortogram Abdominal with Runoff(Right) 6 <+> Time In 6 <*> Procedure Aortogram Abdominal with Runoff(Right) 02/12/19 14:13:18 Rac Specialist: HARSHPILUIS Modifier: EANAPIER <+> 2 Case Attendee <+> 2 Role Performed <+> 2 Procedure <+> 3 Case Attendee <+> 3 Role Performed <+> 3 Procedure <+> 4 Case Attendee <+> 4 Role Performed <+> 4 Procedure <+> 5 Case Attendee <+> 5 Role Performed <+> 5 Procedure <+> 6 Case Attendee <+> 6 Role Performed <+> 6 Procedure [facility] IntraOp Case Times Entry 1 Patient In Room Time 02/12/19 13:51:00 Out Room Time 02/12/19 15:09:00 Anesthesia Start Time 02/12/19 13:51:00 Stop Time 02/12/19 15:09:00 Surgery / Procedure Times Start Time 02/12/19 14:12:00 Stop Time 02/12/19 15:00:00 Last Modified By: Lexus Linda Rn 02/12/19 15:21:58 [facility] IntraOp Case Times Audit 02/12/19 15:21:58 Rac Specialist: JONN Modifier: MEDARDO <+> 1 Out Room Time <+> 1 Stop Time <+> 1 Stop Time 02/12/19 14:11:48 Rac Specialist: HARSHPILUIS Modifier: EANAPIER <+> 1 Start Time [facility] IntraOp Communication Entry 1 Communication To Family/Significant other Comment START Date and Time 02/12/19 14:13:00 Last Modified By: Adilene Dhillon RN 02/12/19 14:12:21 [facility] IntraOp Departure from OR Entry 1 Integumentary Assessment Integumentary WDL Assessment WDL Transfer/Handoff Transfer to Other Handoff Method Phone call Post-op Transport Stretcher/[facility] Via Patient Transport Lexus Linda Rn Accompanied by Transfer/Handoff PT TRANSPORTED TO [facility] Last Modified By: Lexus Linda Rn 02/12/19 15:48:30 General Comments: CALLED TO Arthur Gonzalez NURSE [facility] IntraOp Departure from OR Audit 02/12/19 15:49:29 Rac Specialist: MEDARDO Modifier: MEDARDO <+> 1 Patient Transport Accompanied by [facility] IntraOp Dressing and Packing Entry 1 Type Dressing Location OPSITE Wound Dressing Item 4x4's Applied By TONY PEÑA MD-JESUS Other Comments TEGADERM Last Modified By: Adilene Dhillon RN 02/12/19 14:09:39 [facility] IntraOp Fire Risk Assessment Entry [...] Modified By: Adilene Dhillon RN 02/12/19 14:09:55 [facility] IntraOp Fire Risk Assessment Audit 02/12/19 14:13:31 Rac Specialist: HARSHPILUIS Modifier: EANAPIER <+> 1 Fire Risk Assessment Verified By <+> 1 Fire Risk Assessment Verified Date/Time 02/12/19 14:12:26 Rac Specialist: EASTEPHANIEPILUIS Modifier: EANAPIER 1 <-> Fire Risk Assessment Verified 02/12/19 14:10:00 Date/Time [facility] IntraOp General Case Slot Service Specialist 1 Case Information OR OR 20 [facility] Case Level 1 Room Verified Yes Wound Class I - Clean Specialty SN Endovascular Anesthesia Type MAC ASA Class 3 Diagnosis Preop Diagnosis BILATERAL LOWER EXTREMITY CLAUDICATION Postop Same As Preop No Postop Diagnosis SEE MD NOTE Last Modified By: Adilene Dhillon RN 02/12/19 14:13:47 [facility] IntraOp General Case Data Audit 02/12/19 14:20:37 Rac Specialist: JONN Modifier: EANAPIER <+> 1 Preop Diagnosis [facility] IntraOp Implant Log Entry 1 Entry 2 Entry 3 Type Implant (Synthetic) Implant (Synthetic) Implant (Synthetic) Implant Log Implant Type Other Tissue Implant Type Implant STENT LS EXP VASC CVR [id number] STENT LS EXP VASC CVR Identification [id number] Description Implant Quantity 1 1 1 Implant Site LEFT COMMON ILIAC ARTERY RIGHT COMMON ILIAC RIGHT COMON ILIAC ARTERY ARTERY Implant [id number] Identification Model Number Implant Identification Serial Number Implant [id number] Identification Lot Number Implant Cr Bard:Peripheral Vasc Cr Bard:Peripheral Vasc Identification Personal Shopper Name: Implant [id number] Identification Catalog Number Implant Size 7.9 X 24.6 MM 7.9 X 37 MM Implant Has an Yes Yes Yes Expiration Date Implant Expiration 07/23/21 11/22/21 11/22/21 Date Wasted Radioactive Material Time Implanted Tissue Implant Continue for Tissue Implant Documentation Tissue Identification Number Graft Prep Per Personal Shopper Instructions: Tissue Preparation Method: Reconstitution Solution: Reconstitution Solution Lot Number Reconstitution Solution Expiration Date: Thawing Solution Thawing Solution Lot Number Thawing Solution Expiration Date Preparation Materials, Other Preparation Materials, Other Lot Number Preparation Materials, Other Expiration Date Tissue Prepared/Processed By Personal Shopper Paperwork Completed Implant Type Comment Last Modified By: Adilene Dhillon RN Napier, Elizabeth A, RN Sloan, Susan, Rn 02/12/19 14:37:35 02/12/19 14:39:27 02/12/19 15:46:28 Entry 4 Entry 5 Entry 6 Type Implant (Synthetic) Implant (Synthetic) Implant (Synthetic) Implant Log Implant Type Other Tube(s) Other Tissue Implant Type Implant STNT BLLN ENDO VBX DEVICE MYNX FABRIC COATING SUPERVISOR 6F/ 7F DEVICE MYNX FABRIC COATING SUPERVISOR 6F/ 7F Identification [id number] Description Implant Quantity 1 1 1 Implant Site RIGHT EXTERNAL ILIAC RIGHT FEMORAL LEFT FEMORAL ARTERY ARTERY Implant [id number] Identification Model Number Implant [id number] Identification Serial Number Implant [id number] Identification Lot Number Implant [employer] [place] [employer]:Med Prdt Access Closure Access Closure Identification Personal Shopper Name: Implant [id number] Identification Catalog Number Implant Size Implant Has an Yes Yes Yes Expiration Date Implant Expiration 07/29/21 01/22/21 01/22/21 Date Wasted Radioactive Material Time Implanted Tissue Implant Continue for Tissue Implant Documentation Tissue Identification Number Graft Prep Per Personal Shopper Instructions: Tissue Preparation Method: Reconstitution Solution: Reconstitution Solution Lot Number Reconstitution Solution Expiration Date: Thawing Solution Thawing Solution Lot Number Thawing Solution Expiration Date Preparation Materials, Other Preparation Materials, Other Lot Number Preparation Materials, Other Expiration Date Tissue Prepared/Processed By Personal Shopper Paperwork Completed Implant Type Comment Last Modified By: Lexus Linda Rn Sloan, Susan, Rn Sloan, Susan, Rn 02/12/19 15:46:28 02/12/19 15:46:28 02/12/19 15:46:28 [facility] IntraOp Implant Log Audit 02/12/19 15:46:28 Rac Specialist: JONN Meng: MEDARDO 1 <*> Implant Identification Description STENT LS EXP VASC CVR [id number] <+> 3 Implant Identification Description <+> 3 Implant Identification Lot Number <+> 3 Implant Identification Personal Shopper Name: <+> 3 Implant Expiration Date <+> 3 Implant Site <+> 3 Implant Quantity <+> 3 Implant Identification Catalog Number <+> 3 Implant Type <+> 3 Implant Identification Model Number <+> 3 Implant Has an Expiration Date <+> 3 Type <+> 4 Implant Identification Description <+> 4 Implant Identification Serial Number <+> 4 Implant Identification Personal Shopper Name: <+> 4 Implant Expiration Date <+> 4 Implant Site <+> 4 Implant Quantity <+> 4 Implant Identification Catalog Number <+> 4 Implant Type <+> 4 Implant Identification Model Number <+> 4 Implant Has an Expiration Date <+> 4 Type <+> 5 Implant Identification Description <+> 5 Implant Identification Lot Number <+> 5 Implant Identification Personal Shopper Name: <+> 5 Implant Expiration Date <+> 5 Implant Site <+> 5 Implant Quantity <+> 5 Implant Identification Catalog Number <+> 5 Implant Type <+> 5 Implant Identification Model Number <+> 5 Implant Has an Expiration Date <+> 5 Type <+> 6 Implant Identification Description <+> 6 Implant Identification Personal Shopper Name: <+> 6 Implant Expiration Date <+> 6 Implant Site <+> 6 Implant Quantity <+> 6 Implant Identification Catalog Number <+> 6 Implant Type <+> 6 Implant Identification Model Number <+> 6 Implant Has an Expiration Date <+> 6 Type 02/12/19 14:39:27 Rac Specialist: JONN Modifier: JONN <+> 2 Implant Identification Description <+> 2 Implant Identification Lot Number <+> 2 Implant Size <+> 2 Implant Expiration Date <+> 2 Implant Site <+> 2 Implant Quantity <+> 2 Implant Has an Expiration Date <+> 2 Type [facility] IntraOp Intraoperative Assessment Entry 1 [...] Modified By: Adilene Dhillon RN 02/13/19 06:58:24 [facility] IntraOp Intraoperative Assessment Audit 02/13/19 06:58:24 Rac Specialist: EANAPIER Modifier: EANAPIER 1 <*> Skin Assessment Verified Yes 1 <+> Handoff Method [facility] IntraOp Intraoperative Equipment Entry 1 Type Monitoring Equipment Intraop Monitoring Electrocardiogram Three lead placement (ECG) Electrode Placement Blood Pressure Non-Invasive BP Device Source Blood Pressure Arm, right upper Location Pulse Oximeter Hand, left Probe Site Antiembolic Devices Scopes Photo/Video Documentation Last Modified By: Adilene Dhillon RN 02/12/19 14:15:38 [facility] IntraOp Medication Admin Entry 1 Entry 2 Entry 3 Medication/Irrigant CESAR VISIPAQUE 320MG 150 lidocaine 1% 50ml vial CESAR NACL 0.9PCT HPRN 200ML --[id number] - [id number] 1000U .5L --[id number] Combo Med List Time Administered Route of [...] RN 02/12/19 14:14:13 02/12/19 14:14:13 02/12/19 14:14:13 [facility] IntraOp Medication Admin Audit 02/13/19 06:57:26 Rac Specialist: EANAPIER Modifier: EANAPIER <+> 1 Dose [facility] IntraOp Patient Positioning Entry 1 [...] Modified By: Adilene Dhillon RN 02/13/19 06:59:18 [facility] IntraOp Patient Positioning Audit 02/13/19 06:59:18 Rac Specialist: JONN Modifier: EANAPIER 1 <*> Procedure Aortogram Abdominal with Runoff(Right), Arterial Stent Endovascular(Right) 1 <*> Positioning Devices Head Rest, Safety Strap, Thighs, Sled Arm Rest 1 <*> Positioned By TONY PEÑA MD-JESUS 02/12/19 14:50:30 Rac Specialist: HARSHPIER Modifier: EANAPIER 1 <*> Procedure Aortogram Abdominal with Runoff(Right) [facility] IntraOp Sign In Entry 1 [...] Modified By: Adilene Dhillon RN 02/12/19 14:14:44 [facility] IntraOp Sign Out Entry 1 [...] Modified By: Adilene Dhillon RN 02/12/19 14:15:04 [facility] IntraOp Sign Out Audit 02/12/19 15:49:49 Rac Specialist: JONN Modifier: JOHNAN <+> 1 RN Sign Out Signature Date/Time 02/12/19 14:16:46 Rac Specialist: JONN Modifier: EANAPIER 1 <*> Urinary Catheter Documented in IView N/A [facility] IntraOp Skin Prep Entry 1 Procedure Aortogram Abdominal with Runoff(Right), Arterial Stent Endovascular(Right) Prescribed N/A Pre-Surgical Prep Completed Prep Area BILATERAL GROINS Intraop Prep Integumentary WDL Assessment WDL Prep Agents Chloraprep Prep by Adilene Dhillon RN Hair Removal Methods No hair removal performed Last Modified By: Adilene Dhillon RN 02/12/19 14:13:55 [facility] IntraOp Skin Prep Audit 02/12/19 14:50:30 Rac Specialist: JONN Modifier: EANAPIER 1 <*> Procedure Aortogram Abdominal with Runoff(Right) [facility] IntraOp Surgical Procedures Entry 1 [...] Elizabeth A, RN 02/13/19 07:00:03 02/12/19 14:50:24 [facility] IntraOp Surgical Procedures Audit 02/13/19 07:00:03 Rac Specialist: MEDARDO Modifier: EANAPIER 1 <*> Procedure Aortogram Abdominal with Runoff 1 <*> Additional Procedure Description (AORTOGRAM WITH RT LEG REVASCULARIZATION) 02/12/19 15:49:57 Rac Specialist: JONN Modifier: ROSALINDALOAN 1 <*> Procedure Aortogram Abdominal with Runoff 1 <+> Stop <+> 2 Stop 02/12/19 14:54:15 Rac Specialist: JONN Modifier: HARSHPIER 1 <*> Procedure Aortogram Abdominal with Runoff 02/12/19 14:50:24 Rac Specialist: JONN Modifier: HARSHPIER <+> 2 Procedure <+> 2 Primary Procedure <+> 2 Modifiers <+> 2 Primary Surgeon <+> 2 Specialty <+> 2 Start <+> 2 Wound Class <+> 2 Anesthesia Type [facility] IntraOP Time Out Entry 1 [...] Modified By: Adilene Dhillon RN 02/12/19 14:50:31 [facility] IntraOP Time Out Audit 02/12/19 14:50:31 Rac Specialist: JONN Modifier: HARSHPIER 1 <*> Procedure to be Performed Aortogram Abdominal with Runoff(Right) [facility] IntraOp X-Ray and Images Entry 1 X-Ray/Imaging Type Fluoroscopy Fluoroscopy Type Fixed Community Arts Worker Name Mayra Castrejon [employer] Protective Devices Yes [...] JORGE Correct Billing Electronically signed by Mickey, [facility] Conversion Case Packer And Sealer Cerner at 08/13/2022 11:13 AM CDT documented in this encounter Plan of Treatment Not on file documented as of this encounter Visit Diagnoses Not on filedocumented in this encounter
--- OUTSIDE RECORDS SUMMARY | 2024-12-07 13:31 | XMS_ITS | Encounter Summary ---
Author Organization [employer] ([place], [place], [place], [place]) Address [address] [place] [address] Care Team Providers Care Asphalt Tar And Gravel Roofer Name Role Phone Unavailable Primary Care Provider Unavailabl e Encounter Details Date Type Department Care Team (Late st Contact Info) Description 03/14/2019 Transcribed Document [facility] [address] [place] [address] ProviderRegina [facility] [place], [place] [address] Social History Tobacco Use Types Packs/Day Years Used Date Smoking Tobacco: Never Assessed Comments Unknown Sex and Gender Information Value Date Recorded Sex Assigned at Not on file Legal Sex Female 5:00 PM CDT Gender Identity Not on file Sexual Orientation Not on file documented as of this encounter Miscellaneous Notes * Cerner Conversion Note - Historical ProviderMD - 03/14/2019 4:16 PM [employer]ER Nursing Discharge Summary Entered On: 03/14/2019 16:19 [...] 03/14/2019 16:16 EST Electronically signed by Mickey [facility] Conversion Subway Train Driver Cerner at 08/13/2022 11:21 AM CDT documented in this encounter Plan of Treatment Not on file documented as of this encounter Visit Diagnoses Not on filedocumented in this encounter
--- OUTSIDE RECORDS SUMMARY | 2024-12-07 13:31 | XMS_ITS | Clinical Summary ---
Author Organization [facility] Address [address] [place] [address] Care Team Providers Care Program Manager Transportation Name Role Phone Mustapha James MD Primary [...] Daily. Active clopidogrel (PLAVIX) 75 MG tablet 022 Active montelukast (SINGULAIR) 10 MG tablet 023 [...] 180 MG tabletIndications :Coronary artery disease involving ohogamiut coronary artery of ohogamiut heart without angina pectoris Take 1 tablet by mouth Daily. 30 tablet 11 024 Active lisinopril (PRINIVIL,ZESTRIL ) 20 MG tablet TAKE 1 TABLET BY MOUTH ONCE DAILY 30 tablet 11 025 Active lansoprazole (PREVACID) 30 MG capsule Take 1 capsule by mouth Daily. 30 capsule 025 Active nystatin-triamcin olone (MYCOLOG II) 377939-8.1 UNIT/GM-% creamIndications: Intertrigo Apply 1 Application topically to the appropriate area as directed 2 (Two) Times a Day. 60 g 1 025 Active nitroglycerin (NITROSTAT) 0.4 MG SL tabletIndications :Coronary artery disease involving ohogamiut coronary artery of ohogamiut heart without angina pectoris TAKE ONE TABLET BY MOUTH UNDER TONGUE NEEDED FOR PAIN DIRECTED 25 tablet 1 025 Active coenzyme Q10 50 MG capsule capsule Take by mouth Daily. Active metoprolol succinate XL (TOPROL-XL) 50 MG 24 hr tabletIndications :Coronary artery disease involving ohogamiut coronary artery of ohogamiut heart without angina pectoris Take 1.5 tablets by mouth Daily. 45 tablet 11 025 Active diazePAM (VALIUM) 5 MG tabletIndications :Generalized anxiety disorder TAKE 1 TABLET BY MOUTH EVERY 6 (SIX) HOURS NEEDED FOR ANXIETY MAY CAUSE DROWSINESS 120 tablet 2 025 Active torsemide (DEMADEX) 20 MG tablet Take 1 tablet by mouth Daily. 30 tablet 025 Active vitamin D (ERGOCALCIFEROL) 1.25 MG (02224 UT) capsule capsule TAKE 1 CAPSULE BY MOUTH 1 (ONE) TIME PER WEEK. 5 capsule 2 025 Active HYDROcodone-aceta minophen (NORCO) 7.5-325 MG per tabletIndications :Failed back syndrome of lumbar spine,Spondylosis of lumbar region without myelopathy or radiculopathy,Art hritis of lumbar spine TAKE 1 TABLET BY MOUTH EVERY 8 HOURS NEEDED FOR MODERATE PAIN. 90 tablet Active levothyroxine (SYNTHROID, LEVOTHROID) 50 MCG tabletIndications :Acquired hypothyroidism TAKE 1 TABLET BY MOUTH ONCE DAILY 30 tablet 4 Active doxycycline (VIBRAMYCIN) 100 MG capsule Take 1 capsule by mouth 2 (Two) Times a Day for 7 days. 14 capsule 025 2024 Active multivitamin with minerals tablet tablet Take 1 tablet by mouth Daily. 2024 Discontinued(D rug interaction) levothyroxine (SYNTHROID, LEVOTHROID) 50 MCG tabletIndications :Acquired hypothyroidism TAKE 1 TABLET BY MOUTH ONCE DAILY 30 tablet 5 025 2024 Discontinued Iron, Ferrous Sulfate, 325 (65 Fe) MG tabletIndications :Coronary artery disease involving ohogamiut coronary artery of ohogamiut heart without angina pectoris,Other iron deficiency anemia Take 1 tablet by mouth Daily. 30 tablet 2 025 2024 Discontinued(D rug interaction) Active Problems Problem Noted Date Diagnosed Date [...] radiculopathy 08/21/2021 Coronary artery disease invo lving ohogamiut coronary artery of ohogamiut heart without angina pectoris 08/21/2021 Overview (01/24/2024): Membership Administrator Dr. Omar Chavez Assessment & Plan (01/24/2024 3:35 PM EDT): Condition is stable. Continue regular follow-up with [facility] cardiology. Regarding her LDL goal of less than 55 this is only achievable for the patient with combination therapy. She will continue Repatha. I have prescribed bempedoic acid although anticipate this will need a prior authorization and likely be cost prohibitive. Consideration could also be given to Leqvio which patient should discuss with her hand slitter. Lipid panel will be ordered today Pulmonary emphysema 08/21/2021 Overview (08/21/2021): Retail Branch Manager Dr. Ally James Acquired hypothyroidism 08/21/2021 Assessment [...] Encounters Date Type Department Care Team Description 12/06/2024 2:00 PM EDT Clinical Support [facility] [address] [place] [address] Chirag Mckee MD NSCLC of right lung (Primary Dx) 12/06/2024 6:05 AM EDT Hospital Encounter [facility] [address] [place] [address] Arrived 12/06/2024 Travel 12/06/2024 Telephone [facility] [address] [place] [address] Elisha Hilario, PATRICIA 12/03/2024 Documentation [facility] [address] [place] [address] Bertha Ambrose, PATRICIA 12/03/2024 Telephone [facility] [address] [place] [address] Bertha Ambrose, PATRICIA 11/28/2024 Refill [facility] [address] [place] [address] Mustapha James MD Acquired hypothyroidism 11/21/2024 Documentation [facility]AY [address] [phone] Lauren Velasco MSW 11/02/2024 Refill [facility] [address] [place] [address] Mustapha James MD Failed back syndrome of lumbar spine; Spondylosis of lumbar region without myelopathy or radiculopathy; Arthritis of lumbar spine 10/31/2024 Refill [facility] [address] [place] [address] Mustapha James MD 10/24/2024 Refill [facility] [address] [place] [address] Mustapha James MD 10/18/2024 Telephone [facility] [address] [place] [address] Mustapha James MD Advice Only 10/11/2024 Telephone [facility] [address] [place] [address] Mustapha James MD Fluid Retention 09/27/[address] [facility] [address] [place] [address] Mustapha James MD Failed back syndrome of lumbar spine; Spondylosis of lumbar region without myelopathy or radiculopathy; Arthritis of lumbar spine; Generalized anxiety disorder 09/27/2024 Telephone [facility] [address] [place] [address] Mustapha James MD OVERNIGHT STUDY 09/26/2024 Telephone [facility] [address] [place] [address] Mustapha James MD Advice Only 09/11/[address] [facility] [address] [place] [address] Mustapha James MD 09/10/2024 Results Follow-Up [facility] [address] [place] [address] Mustapha James MD 09/07/2024 2:00 PM EDT Office Visit [facility] [address] [place] [address] Mustapha James MD Anemia due to blood loss (Primary Dx); group home (current) use of opiate analgesic; Long-term current use of benzodiazepine; Coronary artery disease involving ohogami[place] coronary artery of ohogamiut heart without angina pectoris; Moderate aortic valve [...] [facility] [address] [place] [address] Mustapha James MD [address] [place] [address] Health Maintenance Due Date Last Done Comments [...] procedure was auto-finalized with no dictation required. Chirag Mckee MD IMG CT ORDERABLES Final [...] (ABNORMAL) Iron Profile (09/07/2024 2:42 PM EDT) TIBC 454(H) 250 - 450 ug/dL [facility] UIBC 431(H) 118 - 369 ug/dL [facility] Iron 23(L) 27 - 139 ug/dL [facility] Iron Saturation 5(L) 15 - 55 % [facility] Blood 09/07/2024 2:42 PM EDT 09/07/2024 Narrative [facility] ([facility]ORY) - 09/08/2024 8:11 AM EDT Performed at: 01 - [facility] [id number] Linecasting Machine Keyboard Operator: Jason Bullock PhD, Phone: [phone] Patient Fasting: Y Mustapha James MD LAB BLOOD ORDERABLES Fin al Result [facility] (AMBULATORY) [address] [place] [address], [facility] [address] [id number], * (ABNORMAL) CBC (No Diff) (09/07/2024 2:42 PM EDT) WBC 10.1 3.4 - 10.8 x10E3/uL [facility] [...] LAB Blood 09/07/2024 2:42 PM EDT 09/07/2024 [facility] (AMBULATORY) - 09/08/2024 8:11 AM EDT Performed at: [address] [place] [id number] Linecasting Machine Keyboard Operator: Jason Bullock PhD, Phone: [phone] Patient Fasting: Y Mustapha James MD LAB BLOOD ORDERABLES Fin al Result [facility] (AMBULATORY) [address] [place] [address], [facility] [address] [place] [address], * (ABNORMAL) Ferritin (09/07/2024 2:42 PM EDT) Ferritin 14(L) 15 - 150 ng/mL [facility] Blood 09/07/2024 2:42 PM EDT 09/07/2024 Narrative [facility] (AMBULATORY) - 09/08/2024 8:11 AM EDT Performed at: [address] [place], [place] [id number] [facility], [place] [id number] Linecasting Machine Keyboard Operator: Jason Bullock PhD, Phone: [phone] Patient Fasting: Y Mustapha James MD LAB BLOOD ORDERABLES Fin al Result [facility] (AMBULATORY) [address] [place] [address], [place] [phone] [facility] [address] [place] [address], [place] [phone] * (ABNORMAL) Albumin/Creatinine Ratio Urine (06/08/2024 1:03 [...] MD 02/15/2024 10:36 PM EDT Workstation ID: [id number] Narrative 02/15/2024 10:[address] CHEST [...] mm which appears similar to prior study (2/113). No free fluid in the upper [...] 10 mm which appears similar to priorstudy (/). No free fluid in the upper abdomen. [...] MD 02/15/2024 10:36 PM EDT Workstation ID: [id number] Derik Conn MINCING MACHINE OPERATOR IMG CT ORDERABLES Final R esult * [...] 06/03/2022 2:35 PM EST 06/03/2022 Narrative [facility] (AMBULATORY) - 06/04/2022 10:36 AM EST Performed at: 01 - [facility] [address] [facility], [place], [place] [id number] Linecasting Machine Keyboard Operator: Jason Bullock PhD, Phone: [phone] us Mustapha James MD LAB BLOOD ORDERABLES Fin al Result [facility] (AMBULATORY) [address] [place] [address], [place] [phone] [facility] [address] [place] [address], from Last 3 Months or Most Recently Relevant to Health Maintenance [facility] [place] [id number] [facility] MEDICARE ADVANTAGE PPO Advance Directives Documents on File Type Date Recorded Patient Major Donor Coordinator Expl anation POWER OF CHUCK TENDER - SCAN 09/13/2022 11:26 AM POWER OF CHUCK TENDER, [facility], 02/05/2022 Care Teams Program Manager Transportation Relationship Specialty Start Date End Date Mustapha James MD [address] [place] [address] [place] [address] PCP - General Family Medicine 01/02/24
--- OUTSIDE RECORDS SUMMARY | 2024-12-07 13:31 | XMS_ITS | Encounter Summary ---
Author Organization [employer] ([place], [place], [place], [place]) Address [address] [place] [address] Care Team Providers Care Security Engineer Name Role Phone Unavailable Primary Care Provider Unavailabl e Encounter Details Date Type Department Care Team (Late st Contact Info) Description 03/14/2019 Transcribed Document [facility] Family Medicine [facility] [place] [address] ProviderRegina MD [address] [place] [address] Social History Tobacco Use Types Packs/Day [...] Regina Henley MD - 03/14/2019 4:22 PM PRODUCT LISTER [facility] [place] [address] THOMAS GTZ SRIRAM :1955 Visit Time:03/14/2019 Your Visit Summary Your Care Team Admitting Physician - TONY PEÑA MD-SUR Attending Physician - TONY PEÑA MD-SUR Primary Care Physician - JACKIE BABIN MD-FAM Referring Physician - JACKIE BABIN MD-FAM PHY, NONE Your Diagnosis 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 ??? Take osmd-bqo-fhoqqjv and prescription medicines only as told by [...] 01/30/2014 Document Revised: 09/13/2016 Document Reviewed: 07/31/2016 [employer] Patient Education ?? 2019 [employer] Angiogram, Care After This sheet gives [...] and water are not available, use hand health safety engineer. ? Change your dressing as told [...] contrast dye from your body. ??? Take iqaz-ygt-fykabxr and prescription medicines only as told by [...] 10/28/2005 Document Revised: 03/16/2017 Document Reviewed: 03/16/2017 [employer] Patient Education ?? 2019 [employer] Angiogram An angiogram is a procedure [...] including vitamins, herbs, eye drops, creams, and xlzp-yql-jnmtzqv medicines. ??? Any problems you or family [...] 01/19/2006 Document Revised: 08/16/2017 Document Reviewed: 05/18/2017 [employer] Patient Education ?? 2019 [employer] Intermittent Claudication Intermittent claudication is pain [...] calories. Consider working with a diet and assistive technology specialist (dietitian) to help you make healthy [...] blood pressure, or high cholesterol. ??? Take febu-cgy-acgihhg and prescription medicines only as told by [...] 02/11/2005 Document Revised: 05/12/2017 Document Reviewed: 05/12/2017 [employer] Patient Education ?? 2019 [employer]. Peripheral Vascular Disease Peripheral vascular disease (PVD) [...] activities for you. General instructions ??? Take gxvt-xci-ujokcpv and prescription medicines only as told by [...] 05/19/2005 Document Revised: 05/19/2017 Document Reviewed: 05/19/2017 [employer] Interactive Patient Education ?? 2019 [employer] Emergency Awareness and Preventative Care STROKE [...] Assistance with quitting is available by contacting 5-416-EFILNOW. This is a free resource providing counseling, [...] was given the opportunity to ask questions. Patient/Oil Well Perforator Operator Name: Patient/Oil Well Perforator Operator Signature: Relationship to Patient: Clinician/Hospital Oil Well Perforator Operator Signature: Date: documented in this encounter Plan of Treatment Not on file documented as of this encounter Visit Diagnoses Not on filedocumented in this encounter
--- OUTSIDE RECORDS SUMMARY | 2024-12-07 13:31 | XMS_ITS | Encounter Summary ---
Author Organization [employer] ([place], [place], [place], [place]) Address [address] [place] [address] Care Team Providers Care Transit Proof Machine Operator Name Role Phone Unavailable Primary Care Provider Unavailabl e Encounter Details Date Type Department Care Team (Late st Contact Info) Description 03/14/2019 Transcribed Document [facility] Radiology [address] [place] [address] Martinez Miller MD [address] [facility] [place] [address] Social History Tobacco Use Types Packs/Day Years [...] allow for placement and advancement of a 6-Tongan sheath. 3. Catheter placement within the aorta. 4. Aortography demonstrating patency of bilateral common iliac artery stents. 5. Inability to access the occluded left superficial femoral artery through an antegrade fashion. 6. Successful recanalization of occluded superficial femoral artery through pedal access and placement of a 5 x170 LifeStent. OPERATIVE DESCRIPTION: The patient was taken back to the asset availability leader and placed in supine position. Following IV [...] Attempts to advance a radio to peripheral 6-Tongan sheath was performed, fortunately successful. This got [...] successfully with a micropuncture wire. A low-profile 6-Tongan sheath was placed. Left lower extremity angiogram [...] Recovery in stable condition. No immediate complications. /[id number] Martinez Miller MD NNA/AQ / NNA / MODL /[id number] documented in this encounter Plan of Treatment Not on file documented as of this encounter Visit Diagnoses Not on filedocumented in this encounter
--- OUTSIDE RECORDS SUMMARY | 2024-12-07 13:31 | XMS_ITS | Clinical Summary ---
Author Organization [employer] ([place], [place], [place], [place]) Address [address] [place] [address] Care Team Providers Care Concierge Name Role Phone Unavailable Primary Care Provider [...]
--- OUTSIDE RECORDS SUMMARY | 2024-12-07 13:31 | XMS_ITS | Encounter Summary ---
Author Organization [facility] Address [address] [id number] Care Team Providers Care Marine Railway Operator Name Role Phone Mustapha James MD Primary Care Provider [phone] Miguel Lamb MD Unavailable [phone] Encounter Details Date Type Department Care [...] PM EDT Appointment Cardiac Imaging [address] [place] [address] 12/06/2025 1:30 PM EDT Office Visit [facility] [place] [address] [place] [address] Miguel Lamb MD [address] [place] [address] documented as of this encounter [...] documented as of this encounter Care Teams Marine Railway Operator Relationship Specialty Start Date End Date Mustapha James MD [address] [place] [address] PCP - General 09/05/20 Miguel Lamb MD [address] [place] [phone] Referring Physician Interventional Cardiology 08/16/24 documented as of this encounter
--- OUTSIDE RECORDS SUMMARY | 2024-12-07 13:31 | XMS_ITS | Referral Summary ---
Author Organization [employer] ([place], [place], [place], [place]) Address [address] [place] [address] Care Team Providers Care Ceo [place] Name Role Phone Unavailable Primary Care Provider [...]
--- OUTSIDE RECORDS SUMMARY | 2024-12-07 13:31 | XMS_ITS | Encounter Summary ---
Author Organization [email or web address] ([place], [place], [place], [place]) Address [address] [place] [address] Care Team Providers Care Solar Power Installer Name Role Phone Unavailable Primary Care Provider Unavailabl e Encounter Details Date Type Department Care Team (Late st Contact Info) Description 02/12/2019 Transcribed Document [facility] Family Medicine [facility] [place] [address] ProviderRegina MD [facility] [address] Social History Tobacco Use Types [...] Regina ProviderMD - 02/12/2019 2:12 PM CDT [facility] Main OR Preop Summary Primary Physician: TONY PEÑA MD-SUR Finalized Date/Time: 02/12/19 18:38:33 Pt. Name: THOMAS GTZ SRIRAM Reynolds/Sex: 1955 Female Med Rec #: [id number] Physician: TONY PEÑA MD-SUR Financial #: [id number] Pt. Type: O Room/Bed: HIS/11 Admit/Disch: 02/12/19 09:27:00 - 02/12/19 18:10:00 Institution: [facility] PreOp Case Times Entry 1 In Preop 02/12/19 09:40:00 Ready for Holding n/a Room Patient Ready for 02/12/19 11:13:00 Surgery Patient Out of Preop 02/12/19 13:49:00 Patient Out of n/a Holding Room Last Modified By: SHAHLA GOODMAN RN 02/12/19 18:38:24 Finalized By: SHAHLA GOODMAN, RN Document Signatures Signed By: SHAHLA GOODMAN RN 02/12/19 18:38 Electronically signed by Mickey [facility] Conversion Ham Curer Cerner at 08/13/2022 11:16 AM CDT documented in this encounter Plan of Treatment Not on file documented as of this encounter Visit Diagnoses Not on filedocumented in this encounter
--- OUTSIDE RECORDS SUMMARY | 2024-12-07 13:31 | XMS_ITS | Encounter Summary ---
[facility] Organization [facility] Address [address] [place] [address] Care Team Providers Care Shellfish Farming Supervisor Name Role Phone Mustapha James MD Primary Care Provider + Encounter Details Date Type Department Care Team (Late st Contact Info) Description 11/21/2024 Documentation [facility] [address] [facility] [address] [place] [address] Lauren Velasco, DON Social History [...] assist with getting pt to scan in [place]. Ptreported if she can get her CT Scan at [facility], she has someone that can assist with transport. PEARL confirmed with RN this is possible, and that we will work on scheduling it. Pt thanked PEARL and will look out for call with schedule. documented in this encounter Plan of Treatment Upcoming Encounters Date Type Department Care Team (Late st Contact Info) Description 12/27/2024 2:00 PM EDT Office Visit [facility] [address] [place] [phone] Mustapha James MD [address] [place] [address] documented as of this encounter Visit Diagnoses Not on filedocumented in this encounter Additional Health Concerns Assessment Noted Time PHQ-2 Depression Total Score: 1 10/24/19 24 2:19 PM EDT documented as of this encounter Care Teams Shellfish Farming Supervisor Relationship Specialty Start Date End Date Mustapha James MD [address] [place] [address] PCP - General Family Medicine 01/02/24 documented as of this encounter
--- OUTSIDE RECORDS SUMMARY | 2024-12-07 13:31 | XMS_ITS | Clinical Summary ---
Author Organization [facility] Address [address] [place] [address] Care Team Providers Care Retail Sales Professional Name Role Phone Mustapha James MD Primary Care Provider [phone] Miguel Lamb MD Unavailable [phone] Allergies Active Allergy Reactions Criticality Noted [...] by mouth daily. 0 Active HYDROcodone-joanne taminophen ([place]) 7.5-325 MG tablet Take 1 tablet by [...] Description 11/30/2024 11:30 AM EDT Office Visit [facility] 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 [place] [address] Ariana Li 09/18/2024 8:30 AM EDT - 09/18/2024 10:30 AM EDT Surgery Cardiac Ux Engineer [address] [place] [address] Miguel Lamb MD Percutaneous coronary intervention [87114 (CPT )] 09/18/2024 7:17 AM EDT - 09/18/2024 3:19 PM EDT Hospital Encounter Cardiac Ux Engineer [address] [place] [address] Miguel Lamb MD S/P coronary artery stent [...] 11/30/2024 10:56 AM EDT Plan of Treatment Upcoming Encounters Date Type Department Care Team (Late st Contact Info) Description 12/06/2025 12:00 PM EDT Appointment Cardiac Imaging [address] [place] [address] 12/06/2025 1:30 PM EDT Office Visit [facility] [address] [facility] [place] [address] Miguel Lamb MD [address] [place] [address] Health Maintenance Due Date Last Done Comments [...] 2003 UKY-Diabetes: Hemoglobin A1C 12/01/202212/2022, 07/07/2019, 07/04/2019 [id number] Vaccine ( season) 2023 02/24/2022, 04/01/2021, 08/06/2020, [...] this topic Medical Devices Implanted Type Area Assistant Front Office Manager Device Identifier Shelf Expiration Date Model / Serial / Lot Stent [place] Custer Rx 4.5mm X 12mm - [id number] Implanted:Qty: 1 on 08/30/2024 by Miguel Lamb MD at [id number] 03/21/2027 [id number] UX / / [id number] Stent Coronary [place] Manjit Rx 3.00mm X 18mm - [id number] Implanted:Qty: 1 on 08/30/2024 by Miguel Lamb MD at [id number] 06/14/2027 [id number] UX / / [id number] Stent Coronary [place] Manjit Rx 2.75mm X 30mm - [id number] Implanted:Qty: 1 on 09/18/2024 by Miguel Lamb MD at [id number] 03/25/2027 [id number] UX / / [id number] Stent Coronary [place] Manjit Rx 3.00mm X 26mm - [id number] Implanted:Qty: 1 on 09/18/2024 by Miguel Lamb MD at [id number] 06/21/2027 [id number] UX / / [id number] Stent Coronary [place] Custer Rx 3.50mm X 12mm - [id number] Implanted:Qty: 1 on 09/18/2024 by Miguel Lamb MD at [id number] 03/04/2027 [id number] UX / / [id number] Procedures Procedure Name Priority Date/Time Associated Diagnosis [...] of an overlapping 3.5 x 12 mm [place] Custer drug-eluting stent. Ostium flared to 4.0. 3. Serial 70% diffuse lesions of the mid-distal RCA s/p successful PCI with placement of overlapping 3.0 x 26 mm and 2.75 x 30 mm [place] Custer drug-eluting stents (proximal-distal). Recommendations: 1. Post-PCI EKG. [...] After confirming therapeutic activated clotting time, a [place] wire was advanced beyond the lesion and into the distal RCA. We advanced an Emerge RX 2.5 x 20 mm balloon into the mid-dstial RCA lesion and inflated to 12 rachael. The balloon was withdrawn slightly and serial inflations performed using the same technique. We then advanced a 2.75 mm x 30 mm [place] Custer drug eluting stent into the lesion and deployed at 12 rachael. We then placed and overlapping 3.0 x 26 mm [place] Manjit drug-eluting stent proximal to the aforementioend stent, inflated to 12 rachael. Post-dilation of the proximal-mid stent was then carried out using a 3.0 NC balloon. We then closely evaluated the ostium which appeared to have disease and appeared to be uncovered. We then advanced a 3.5 x 12 mm [place] Manjit drug- eluting stent in the proximal [...] The patient was transferred back to the matlab developer holding area in good condition. Coronary Findings [...] of2 resultswithin the time period is included. [facility] Signature ACT (Low Range) 352 65 - 400 seconds 09/26/2024 9:35 AM EDT [facility] Graphotype Operator ID Mary Marin 09/26/2024 9:35 AM EDT HEALTHCARE LAB ACT Device ID [id number] 09/26/2024 9:35 AM EDT HEALTHCARE LAB Comment 09/26/2024 9:35 AM EDT [facility] Comment: ACT performed by [...] UNSOLICITED RESULTS Final Result Performing Organization Address City/[facility]/ZIP Co de Phone Number HEALTHCARE LAB [address] LAB [address] [place] [address] * (ABNORMAL) POCT creatinine (09/18/2024 8:24 AM EDT) [facility] Creatinine, Point of Care 1.2(H) 0.6 - 1.1 mg/dL 09/18/2024 8:28 AM EDT HEALTHCARE LAB POCT eGFR 48 mL/min/1. 73m*2 09/18/2024 8:28 AM EDT [facility] Graphotype Operator ID Rosangela Gallegos 09/18/2024 8:28 AM EDT HEALTHCARE LAB Device ID [id number] 09/18/2024 8:28 AM EDT HEALTHCARE LAB Comment 09/18/2024 8:28 AM EDT [facility] Comment:Testing performed on i-STAT at the point of care. Reported eGFRcr in mL/min/1.73m2 is based the CKD-EPI 2020 equation that does not use a race coefficient. Blood Venous blood specimen / Unknown 09/18/2024 8:24 AM EDT 09/18/2024 8:28 AM EDT us Miguel Lamb MD LAB POINT OF CARE TE ST DOCKED DEVICE UNSOLICITED RESULTS Final Result Performing Organization Address City/[facility] Co de Phone Number HEALTHCARE LAB [address] LAB [address] [place] [address] * (ABNORMAL) CBC and differential (09/18/2024 8:20 AM EDT) WBC Count 8.79 3.70 - 10.30 10*3/uL LAB HEMATOLOGY METHOD 09/18/2024 8:38 AM EDT [facility] RBC Count 2.65(L) 3.90 - 5.20 10*6/uL LAB HEMATOLOGY METHOD 09/18/2024 8:38 AM EDT [facility] HGB 7.2(L) 11.2 - 15.7 g/dL LAB HEMATOLOGY METHOD 09/18/2024 8:38 AM EDT [facility] HCT 24.6(L) 34.0 - 45.0 % LAB HEMATOLOGY METHOD 09/18/2024 8:38 AM EDT [facility] Platelet Count 358 155 - 369 10*3/uL LAB HEMATOLOGY METHOD 09/18/2024 8:38 AM EDT [facility] MCV 93 79 - 98 fL LAB HEMATOLOGY METHOD 09/18/2024 8:38 AM EDT [facility] MCH 27.2 26.0 - 32.0 pg LAB HEMATOLOGY METHOD 09/18/2024 8:38 AM EDT [facility] MCHC 29.3(L) 30.7 - 35.5 g/dL LAB HEMATOLOGY METHOD 09/18/2024 8:38 AM EDT [facility] RDW 16.0(H) 11.5 - 14.5 % LAB HEMATOLOGY METHOD 09/18/2024 8:38 AM EDT [facility] MPV 10.4 8.8 - 12.5 fL LAB HEMATOLOGY METHOD 09/18/2024 8:38 AM EDT [facility] nRBC 0.0 <=0.0 per 100 WBCs LAB HEMATOLOGY METHOD 09/18/2024 8:38 AM EDT [facility] Differential Type Automated LAB HEMATOLOGY METHOD 09/18/2024 8:38 AM EDT [facility] Neutrophils % 90 % LAB HEMATOLOGY METHOD 09/18/2024 8:38 AM EDT [facility] Lymphocytes % 6 % LAB HEMATOLOGY METHOD 09/18/2024 8:38 AM EDT [facility] Monocytes % 2 % LAB HEMATOLOGY METHOD 09/18/2024 8:38 AM EDT [facility] Eosinophils % 1 % LAB HEMATOLOGY METHOD 09/18/2024 8:38 AM EDT [facility] Basophils % 0 % LAB HEMATOLOGY METHOD 09/18/2024 8:38 AM EDT [facility] Immature Granulocytes % 1 % LAB HEMATOLOGY METHOD 09/18/2024 8:38 AM EDT [facility] Neutrophils Absolute 7.96(H) 1.60 - 6.10 10*3/uL LAB HEMATOLOGY METHOD 09/18/2024 8:38 AM EDT [facility] Lymphocytes Absolute 0.56(L) 1.20 - 3.90 10*3/uL LAB HEMATOLOGY METHOD 09/18/2024 8:38 AM EDT [facility] Monocytes Absolute 0.13(L) 0.30 - 0.90 10*3/uL LAB HEMATOLOGY METHOD 09/18/2024 8:38 AM EDT [facility] Eosinophils Absolute 0.07 0.00 - 0.50 10*3/uL LAB HEMATOLOGY METHOD 09/18/2024 8:38 AM EDT [facility] Basophils Absolute 0.02 0.00 - 0.10 10*3/uL LAB HEMATOLOGY METHOD 09/18/2024 8:38 AM EDT [facility] Immature Granulocytes Absolute 0.05 0.00 - 0.06 10*3/uL LAB HEMATOLOGY METHOD 09/18/2024 8:38 AM EDT [facility] Blood Venous blood specimen / Unknown Venipuncture / Unknown 09/18/2024 8:20 AM EDT 09/18/2024 8:26 AM EDT Narrative [facility] - 09/18/2024 8:38 AM EDT Therapeutic decision making should be based on absolute values, rather than percentages. us Miguel Lamb MD LAB BLOOD ORDERABLES Final Resu lt [facility] [address] [place] [address] * (ABNORMAL) Basic metabolic panel (09/18/2024 8:20 AM EDT) Glucose, Plasma 157(H) 74 - 99 mg/dL 09/18/2024 8:58 AM EDT [facility] BUN, Plasma 17 8 - 23 mg/dL 09/18/2024 8:58 AM EDT [facility] Creatinine, Plasma 1.05 0.60 - 1.10 mg/dL 09/18/2024 8:58 AM EDT [facility] BUN/Creatinine Ratio 16 09/18/2024 8:58 AM EDT [facility] Sodium, Plasma 138 136 - 145 mmol/L 09/18/2024 8:58 AM EDT [facility] Potassium, Plasma 4.5 3.6 - 4.9 mmol/L 09/18/2024 8:58 AM EDT [facility] Chloride, Plasma 100 97 - 107 mmol/L 09/18/2024 8:58 AM EDT [facility] CO2, Plasma 23 22 - 29 mmol/L 09/18/2024 8:58 AM EDT [facility] Anion Gap 15 6 - 16 mmol/L 09/18/2024 8:58 AM EDT [facility] Total Calcium, Plasma 9.4 8.9 - 10.2 mg/dL 09/18/2024 8:58 AM EDT [facility] eGFRcr 56.9 mL/min/1.7 3m*2 09/18/2024 8:58 AM EDT [facility] Comment:Reported eGFRcr in m L/min/1.73m2 is based the CKD-EPI 2020 equation that does not use a race coefficient. Blood Venous blood specimen / Unknown Venipuncture / Unknown 09/18/2024 8:20 AM EDT 09/18/2024 8:27 AM EDT Miguel Lamb MD LAB BLOOD ORDERABLES Final Resu lt [facility] [address] [place] [address] * (ABNORMAL) Hemoglobin A1c (07/07/2019 2:34 AM [...] <6.0% Children and Adolescents <7.5% . Source: [place] [employer]. Standards of medical care in diabetes, 2017. Diabetes Care.2017:40 (suppl 1):S1-S135. . HbA1c assay performed by an ion-exchange chromatography method that is certified traceable to the DCCT. 07/07/2019 2:34 AM EDT 07/07/2019 2:46 AM EDT us Zzzhistorical Provider LAB BLOOD ORDERABLES F inal Result SUNQUEST from Last 3 Months or Most Recently Relevant to Health Maintenance Insurance [employer]ICARE Advance Directives * Full Code [...] updated to appropriate status: Yes Care Teams Retail Sales Professional Relationship Specialty Start Date End Date Mustapha James MD [address] [place] [address] PCP - General 09/05/20 Miguel Lamb MD [address] [place] [phone] Referring Physician Interventional Cardiology 08/16/24
--- OUTSIDE RECORDS SUMMARY | 2024-12-07 13:31 | XMS_ITS | Encounter Summary ---
Author Organization [employer] ([place], [place], [place], [place]) Address [address] [place] [address] Care Team Providers Care Farmworker Livestock Name Role Phone Unavailable Primary Care Provider Unavailabl e Encounter Details Date Type Department Care Team (Late st Contact Info) Description 03/14/2019 Transcribed Document [facility] Family Medicine [address] [place] [address] ProviderRegina MD [address] [place] [address] Social History Tobacco Use Types [...] Regina Henley MD - 03/14/2019 4:15 PM ASSOCIATE ACCOUNT MANAGER Patient Education Materials Follows: Moderate Conscious [...] you are awake and alert. ??? Take bgxh-wdb-mgvdhbn and prescription medicines only as told by [...] 01/30/2014 Document Revised: 09/13/2016 Document Reviewed: 07/31/2016 [employer] Interactive Patient Education ? 2019 [employer] Angiogram, Care After This sheet gives [...] and water are not available, use hand reading intervention teacher. ? Change your dressing as told by [...] contrast dye from your body. ??? Take fhqb-sme-hcccrrx and prescription medicines only as told by [...] 10/28/2005 Document Revised: 03/16/2017 Document Reviewed: 03/16/2017 [employer] Patient Education ? 2019 [employer] Angiogram An angiogram is a procedure [...] including vitamins, herbs, eye drops, creams, and asnf-fqs-wuqgfbu medicines. ??? Any problems you or family [...] 01/19/2006 Document Revised: 08/16/2017 Document Reviewed: 05/18/2017 [employer] Interactive Patient Education ? 2019 [employer] Cardiovascular Intermittent Claudication Intermittent claudication is [...] calories. Consider working with a diet and control specialist (dietitian) to help you make healthy [...] blood pressure, or high cholesterol. ??? Take nzrf-vhs-omswmny and prescription medicines only as told by [...] 02/11/2005 Document Revised: 05/12/2017 Document Reviewed: 05/12/2017 [employer] Interactive Patient Education ? 2019 [employer] Peripheral Vascular Disease Peripheral vascular disease [...] activities for you. General instructions ??? Take gxtg-ysj-cdekiob and prescription medicines only as told by [...] 05/19/2005 Document Revised: 05/19/2017 Document Reviewed: 05/19/2017 [employer] Interactive Patient Education ? 2019 [employer] Electronically signed by Ede Arevalo Conversion Supervisor Kosher Dietary Service Cerner at 08/13/2022 11:12 AM CDT documented in this encounter Plan of Treatment Not on file documented as of this encounter Visit Diagnoses Not on filedocumented in this encounter
--- OUTSIDE RECORDS SUMMARY | 2024-12-07 13:31 | XMS_ITS | Encounter Summary ---
Author Organization [facility] Address [address] [place] [address] Care Team Providers Care Furnace Brazer Name Role Phone Mustapha James MD Primary Care Provider + Reason for Visit * Reason Onset Date Comments Fluid Retention 10/11/2024 Encounter Details Date Type Department Care Team (Late st Contact Info) Description 10/11/2024 Telephone [facility] [address] [place] [address] Mustapha James MD [address] [place] [address] Fluid Retention Social History Tobacco [...] Byrne Relationship: Self Best call back number: [phone] What was the call regarding: PATIENT STATES [...] Description 12/27/2024 2:00 PM EDT Office Visit [facility] [address] [facility] [place], [place] [phone] Mustapha James MD [address] [place] [address] documented as of this encounter Visit Diagnoses Not on filedocumented in this encounter Additional Health Concerns Assessment Noted Time PHQ-2 Depression Total Score: 1 10/24/19 24 2:19 PM EDT documented as of this encounter Care Teams Furnace Brazer Relationship Specialty Start Date End Date Mustapha James MD [address] [place] [address] PCP - General Family Medicine 01/02/24 documented as of this encounter
--- OUTSIDE RECORDS SUMMARY | 2024-12-07 13:31 | XMS_ITS | Encounter Summary ---
Author Organization [employer] ([place], [place], [place], [place]) Address [address] [place] [address] Care Team Providers Care Peanut Sheller Name Role Phone Unavailable Primary Care Provider Unavailabl e Encounter Details Date Type Department Care Team (Late st Contact Info) Description 02/12/2019 Transcribed Document [facility] Radiology [address] [place] [address] Martinez Miller MD [address] [facility] [place] [id number] Social History Tobacco Use Types Packs/Day Years [...] skin and nails, Oral, Daily, 0 Refill(s) Spangle 7.5 mg-325 mg oral tablet: 1 Tab, [...] Medication hair, skin and nails, Oral, Daily Spangle 7.5 mg-325 mg oral tablet 1 Tab, [...] Problems Cervical spinal stenosis / SNOMED CT 459746746 / Confirmed Smoker / SNOMED CT 585442013 / Confirmed Sinusitis / SNOMED CT 68565403 / Confirmed Seasonal allergies / SNOMED CT 089543862 / Confirmed Restless leg / SNOMED CT 36629050 / Confirmed Colon polyps / SNOMED CT 641633530 / Confirmed Pneumonia / SNOMED CT 916581848 / Confirmed Peripheral vascular disease / SNOMED CT 1551837920 / Confirmed Peptic ulcer / SNOMED CT 90172014 / Confirmed Osteoporosis / SNOMED CT 447825359 / Confirmed Neuropathy, R arm / SNOMED CT 8254521431 / Confirmed Migraines / SNOMED CT 85933444 / Confirmed Skin cancer / SNOMED CT 5622463393 / Confirmed Hypertension / SNOMED CT 0102711601 / Confirmed Hyperlipidemia / SNOMED CT 43761411 / Confirmed Elevated cholesterol / SNOMED CT 05884698 / Confirmed Hiatal hernia / SNOMED CT 691545657 / Confirmed Hemorrhoids / SNOMED CT 178279676 / Confirmed H/O: TIA / SNOMED CT 312604662 / Confirmed GERD (gastroesophageal reflux disease) / SNOMED CT 202471088 / Confirmed Gastritis / SNOMED CT 4073428 / Confirmed Fibromyalgia / SNOMED CT 09889112 / Confirmed Fibroids / SNOMED CT 736717339 / Confirmed Endometriosis / SNOMED CT 7905278194 / Confirmed Diverticulitis / SNOMED CT 691546287 / Confirmed Sinus problem / SNOMED CT 0322222509 / Confirmed Known medical problems / SNOMED CT 910229109 / Confirmed white spots on MRI Known medical problems / SNOMED CT 339289060 / Confirmed anti nuclear A and A antibodies Constipation / SNOMED CT 15730734 / Confirmed COPD (chronic obstructive pulmonary disease) / SNOMED CT 24991614 / Confirmed Chronic cough / SNOMED CT 636976325 / Confirmed Chronic constipation / SNOMED CT 282197007 / Confirmed Stroke, possible / SNOMED CT 181645844 / Confirmed Bursitis / SNOMED CT 249895093 / Confirmed Bronchitis / SNOMED CT 96585637 / Confirmed Back pain / SNOMED CT 908818361 / Confirmed Arthritis / SNOMED CT 5727572 / Confirmed Anemia / SNOMED CT 211457205 / Confirmed Allergic rhinitis / SNOMED CT 304404013 / Confirmed, Active Problems (39) Allergic rhinitis [...] LE weakness, uses cane. Integumentary: Warm, Dry, [place]. Neurologic: Alert, Oriented. Psychiatric: Cooperative, Appropriate mood & affect. Review / Management Results review: No qualifying data available. Impression and Plan Condition: Stable. documented in this encounter Plan of Treatment Not on file documented as of this encounter Visit Diagnoses Not on filedocumented in this encounter
--- OUTSIDE RECORDS SUMMARY | 2024-12-07 13:31 | XMS_ITS | Encounter Summary ---
Author Organization [employer] ([place], [place], [place], [place]) Address [address] [place] [address] Care Team Providers Care Photography Sales Associate Name Role Phone Unavailable Primary Care Provider Unavailabl e Encounter Details Date Type Department Care Team (Late st Contact Info) Description 02/12/2019 Transcribed Document [facility] Radiology [address] [place] [address] Martinez Miller MD [address] [facility] [place] [address] Social History Tobacco Use Types Packs/Day Years [...] with large thigh collaterals with reconstitution of bptls-dak-zjdd popliteal artery. 3. Recanalization of occluded right common iliac artery and placement of an 8 x 38 LifeStream within the proximal right common with a kissing 8 x 27 left common iliac artery stent. 4. Distal right common iliac artery was treated with an 8 x 38 stent, and right external iliac artery occlusion was treated with a 7 x 39 [place] VBX. OPERATIVE DESCRIPTION: The patient was taken back to the operating room, placed in a supine on the operating room table. Following IV sedation, bilateral groins were widely prepped and draped in a standard sterile fashion. Time-out was taken. Under ultrasound guidance, left common femoral artery was accessed with a Micropuncture needle. A 5-[place] Islander sheath was placed. Flush catheter was advanced [...] with snare technique was used and a 7-[place] sheath was advanced into the dry creek aorta from the right femoral artery to [...] was treated with a 7 x 39 [place] VBX stent. Excellent results were achieved upon completion. Normal pulsatile flow was present within the right common femoral artery. Mynx closure device was used bilaterally. The patient was then taken back to Recovery in stable condition. No complications. /[id number] MD FARHAN NguyenA/BRIANNA / NNA / MODL /[id number] documented in this encounter Plan of Treatment Not on file documented as of this encounter Visit Diagnoses Not on filedocumented in this encounter
--- OUTSIDE RECORDS SUMMARY | 2024-12-07 13:31 | XMS_ITS | Encounter Summary ---
Author Organization [facility] Address [address] [place] [address] Care Team Providers Care Radiator Specialist Name Role Phone Mustapha James MD Primary Care Provider + Reason for Visit * Reason Onset Date Comments Med Refill 10/24/2024 Encounter Details Date Type Department Care Team (Late st Contact Info) Description 10/24/2024 Refill [facility] [address] [place] [address] Mustapha James MD [address] [place] [address] Social History Tobacco Use Types [...] a month already. She is to call chargeback analyst to the end of the Rx. She voiced understanding. * Telephone Encounter - Mary Rader RegSched Rep - 10/24/2024 3:44 PM EDT PATIENT CALLED TO RELAY THAT HER VOCAL TEACHER DR JACOBSONS PCP TO SEND IN REFILLS FOR TORSEMIDE * Telephone Encounter - Leandra Dotson RegSched Rep - 10/24/2024 3:34 PM EDT A user error has taken place: encounter opened in error, closed for administrative reasons. documented in this encounter Plan of Treatment Upcoming Encounters Date Type Department Care Team (Late st Contact Info) Description 12/27/2024 2:00 PM EDT Office Visit [facility] [address] [place] [address] Mustapha James MD [address] [place] [address] documented as of this encounter Visit Diagnoses Not on filedocumented in this encounter Additional Health Concerns Assessment Noted Time PHQ-2 Depression Total Score: 1 10/24/19 2:19 PM EDT documented as of this encounter Care Teams Radiator Specialist Relationship Specialty Start Date End Date Mustapha James MD [address] [place] [address] PCP - General Family Medicine 01/02/24 documented as of this encounter
--- OUTSIDE RECORDS SUMMARY | 2024-12-07 13:31 | XMS_ITS | Encounter Summary ---
Author Organization [facility] Address [address] [place] [address] Care Team Providers Care Hose Tester Name Role Phone Mustapha James MD Primary Care Provider + Encounter Details Date Type Department Care Team (Late st Contact Info) Description 12/06/2024 Telephone [facility] [address] [place] [address] Elisha Hilario, PATRICIA Social History Tobacco Use Types Packs/Day [...] encounter Miscellaneous Notes * Telephone Encounter - Elisha Hilario RN - 12/06/2024 10:25 AM EDTSummary: Follow-Up Appointment At Dr. Mckee's request, called patient to inform her that she will not need to come into the clinic for her follow-up appointment today, that Dr. Mckee will complete a Telehealth visit with her today. Dr. Mckee will call around 2:00 pm. Patient is agreeable to this as she has had a very difficult time arranging transportation for recent visits. Provided contact information should patient have additional questions or concerns. documented in this encounter Plan of Treatment Upcoming Encounters Date Type Department Care Team (Late st Contact Info) Description 12/27/2024 2:00 PM EDT Office Visit [facility] [address] [place] [address] Mustapha James MD [address] [address] documented as of this encounter Visit Diagnoses Not on filedocumented in this encounter Additional Health Concerns Assessment Noted Time PHQ-2 Depression Total Score: 1 10/24/19 24 2:19 PM EDT documented as of this encounter Care Teams Hose Tester Relationship Specialty Start Date End Date Mustapha James MD [address] [place] [address] PCP - General Family Medicine 01/02/24 documented as of this encounter
--- OUTSIDE RECORDS SUMMARY | 2024-12-07 13:31 | XMS_ITS | Encounter Summary ---
Author Organization [employer] ([place], [place], [place], [place]) Address [address] [place] [address] Care Team Providers Care House Superintendent Name Role Phone Unavailable Primary Care Provider Unavailabl e Encounter Details Date Type Department Care Team (Late st Contact Info) Description 02/12/2019 Transcribed Document [facility] [place] [facility] [place] [address] ProviderRegina MD [address] [place] [address] Social History Tobacco Use Types Packs/Day [...] 02/12/2019 15:39 EDT Electronically signed by Mickey [facility] Conversion Set Up Mechanic Heading Machines Cerner at 08/13/2022 11:19 AM CDT documented in this encounter Plan of Treatment Not on file documented as of this encounter Visit Diagnoses Not on filedocumented in this encounter
--- OUTSIDE RECORDS SUMMARY | 2024-12-07 13:31 | XMS_ITS | Encounter Summary ---
Author Organization [employer] ([place], [place], [place], [place]) Address [address] [place] [address] Care Team Providers Care Waxer Floor Name Role Phone Unavailable Primary Care Provider Unavailabl e Encounter Details Date Type Department Care Team (Late st Contact Info) Description 03/14/2019 Transcribed Document [facility] [place] Medicine [facility] [place] [address] ProviderRegina MD [facility] [place] [place] [address] Social History Tobacco Use Types [...] - Regina ProviderMD - 03/14/2019 12:37 PM DEAN OF EDUCATION [facility] Main OR IntraOp Summary Primary Physician: TONY PEÑA MD-SUR Finalized Date/Time: 03/15/19 11:29:27 Pt. Name: JODI GTZ SRIRAM Reynolds/Sex: 1955 Female Med Rec #: [id number] Physician: TONY PEÑA MD-SUR Financial #: [id number] Pt. Type: O Room/Bed: Admit/Disch: 03/14/19 09:48:00 - 03/14/19 17:30:00 Institution: [facility] IntraOp Case Attendance Entry 1 Entry 2 Entry 3 Case Attendee TONY PEÑA MD-SUR CALDWELL, JOSEPH A, CRNA BOWEN, JON B, MD-ANS Role Performed Surgeon/Proceduralist, CORRECTIONS CADET/Nurse Customer Care Assistant Anesthesiologist First Time In 03/14/19 12:18:00 03/14/19 [...] KIERSTEN KHALIL, Gia Liu, Coco Hagan, Cardiovascular Public Speaking Instructor Role Performed Public Transit Trolley Driver, First Public Transit Trolley Driver, Second Public Speaking Instructor Time In 03/14/19 12:18:00 03/14/19 12:18:00 03/14/19 12:18:00 Time Out 03/14/19 14:07:00 03/14/19 14:07:00 03/14/19 14:07:00 Procedure Aortogram Abdominal Aortogram Abdominal Aortogram Abdominal with Runoff(Left) with Runoff(Left) with Runoff(Left) Other Attendee Superficial Wound Closed By: Last Modified By: Gia Armendariz RN Duncan, Richelle, Gia Liu RN 03/14/19 14:07:56 03/14/19 14:07:56 03/14/19 14:07:56 Entry 7 Case Attendee Mayra Castrejon [employer] Role Performed Public Speaking Instructor Time In 03/14/19 12:18:00 Time Out 03/14/19 14:07:00 Procedure Aortogram Abdominal with Runoff(Left) Other Attendee Superficial Wound Closed By: Last Modified By: Gia Armendariz RN 03/14/19 14:07:56 [facility] IntraOp Case Attendance Audit 03/14/19 14:07:56 Tool Trouble Shooter: [id number] Modifier: [id number] 1 <+> Time Out 1 <*> Procedure [...] Procedure Aortogram Abdominal with Runoff(Left) 03/14/19 13:11:30 Tool Trouble Shooter: [id number] Modifier: [id number] 1 <*> Procedure Aortogram Abdominal with Runoff(Left) 2 <*> Procedure Aortogram Abdominal with Runoff(Left) 3 <*> Procedure Aortogram Abdominal with Runoff(Left) 4 <*> Procedure Aortogram Abdominal with Runoff(Left) 5 <*> Procedure Aortogram Abdominal with Runoff(Left) 6 <+> Time In 6 <*> Procedure Aortogram Abdominal with Runoff(Left) 7 <+> Time In 7 <*> Procedure Aortogram Abdominal with Runoff(Left) 03/14/19 12:47:49 Tool Trouble Shooter: [id number] Modifier: [id number] <+> 6 Case Attendee <+> 6 Role Performed <+> 6 Procedure <+> 7 Case Attendee <+> 7 Role Performed <+> 7 Procedure 03/14/19 12:46:19 Tool Trouble Shooter: [id number] Modifier: [id number] <+> 1 Procedure 2 <*> Procedure Aortogram Abdominal with Runoff(Left) 3 <+> Time In 3 <*> Procedure Aortogram Abdominal with Runoff(Left) 4 <+> Time In 4 <*> Procedure Aortogram Abdominal with Runoff(Left) 5 <+> Time In 5 <*> Procedure Aortogram Abdominal with Runoff(Left) 03/14/19 12:45:34 Tool Trouble Shooter: [id number] Modifier: [id number] 2 <+> Time In 2 <*> Procedure Aortogram Abdominal with Runoff(Left) <+> 3 Case Attendee <+> 3 Role Performed <+> 3 Procedure <+> 4 Case Attendee <+> 4 Role Performed <+> 4 Procedure <+> 5 Case Attendee <+> 5 Role Performed <+> 5 Procedure [facility] IntraOp Case Times Entry 1 Patient In Room Time 03/14/19 12:18:00 Out Room Time 03/14/19 14:07:00 Anesthesia Start Time 03/14/19 12:18:00 Stop Time 03/14/19 14:07:00 Anesthesia Ready 03/14/19 12:18:00 Surgery / Procedure Times Start Time 03/14/19 12:37:00 Stop Time 03/14/19 14:01:00 Last Modified By: Gia Armendariz RN 03/14/19 12:39:43 [facility] IntraOp Case Times Audit 03/14/19 14:07:55 Tool Trouble Shooter: [id number] Modifier: [id number] <+> 1 Out Room Time <+> 1 Stop Time <+> 1 Stop Time [facility] IntraOp Communication Entry 1 Entry 2 Communication To Family/Significant other Family/Significant other Comment START UPDATE Communication By Gia Armendariz RN Duncan, Richelle, RN Date and Time 03/14/19 12:45:00 03/14/19 13:49:00 Last Modified By: Gia Armendariz RN Duncan, Richelle, RN 03/14/19 12:48:01 03/14/19 13:50:06 [facility] IntraOp Communication Audit 03/14/19 13:50:06 Tool Trouble Shooter: [id number] Modifier: [id number] <+> 2 Communication By <+> 2 Date and Time <+> 2 Communication To <+> 2 Comment [facility] IntraOp Departure from OR Entry 1 Integumentary Assessment Integumentary WDL Assessment WDL Transfer/Handoff Transfer to Other Handoff Method Phone call Post-op Transport [facility] Via Patient Transport JACKIE BLANTON MD-ANS, Accompanied by EVERETT FREED CRNA, RESULTAY, JOSEFINA, RN Transfer/Handoff PT TRANSPORTED TO [facility], PT STABLE Last Modified By: Gia Armendariz RN 03/14/19 12:48:40 [facility] IntraOp Dressing and Packing Entry 1 Type Dressing Location OPSITE Wound Dressing Item 4x4's Applied By TONY PEÑA MD-JESUS Other Comments COVADERM Last Modified By: Gia Armendariz RN 03/14/19 12:48:56 [facility] IntraOp Fire Risk Assessment Entry 1 Fire [...] Modified By: Gia Armendariz RN 03/14/19 12:49:12 [facility] IntraOp General Case Forensic Psychologist 1 Case Information OR OR 20 [facility] Case Level 1 Room Verified Yes Wound Class I - Clean Specialty SN General Anesthesia Type MAC ASA Class 3 Diagnosis Preop Diagnosis BILATERAL CLAUDICATION Postop Same As Preop Yes Postop Diagnosis BILATERAL CLAUDICATION Last Modified By: Gia Armendariz RN 03/14/19 13:06:23 [facility] IntraOp General Case Data Audit 03/14/19 13:07:04 Tool Trouble Shooter: [id number] Modifier: [id number] 1 <*> Preop Diagnosis RIGHT ILIAC ARTERY OCCLUSION 1 <*> Postop Diagnosis RIGHT ILIAC ARTERY OCCLUSION 03/14/19 13:06:23 Tool Trouble Shooter: [id number] Modifier: [id number] <+> 1 ASA Class <+> 1 Anesthesia Type <+> 1 Postop Same As Preop <+> 1 Preop Diagnosis <+> 1 Postop Diagnosis <+> 1 Room Verified [facility] IntraOp Implant Log Entry 1 Entry 2 Type Implant (Synthetic) Implant (Synthetic) Implant Log Implant Type Other Tissue Implant Type Implant DEVICE MYNX FLASK PUSHER 6F/ 7F STENT VASC LS 5F 135cm Identification [id number] Description Implant Quantity 1 1 Implant Site LEFT GROIN LEFT SFA Implant Identification Model Number Implant Identification Serial Number Implant [id number] Identification Lot Number Implant Access Closure Cr Bard:Peripheral Vasc Identification Respiratory Medicine Physician Name: Implant [id number] Identification Catalog Number Implant Size Implant Has an Yes Yes Expiration Date Implant Expiration 01/22/21 08/18/20 Date Wasted Radioactive Material Time Implanted Tissue Implant Continue for Tissue Implant Documentation Tissue Identification Number Graft Prep Per Respiratory Medicine Physician Instructions: Tissue Preparation Method: Reconstitution Solution: Reconstitution Solution Lot Number Reconstitution Solution Expiration Date: Thawing Solution Thawing Solution Lot Number Thawing Solution Expiration Date Preparation Materials, Other Preparation Materials, Other Lot Number Preparation Materials, Other Expiration Date Tissue Prepared/Processed By Respiratory Medicine Physician Paperwork Completed Implant Type Comment Last Modified By: Gia Armendariz RN Duncan, Richelle, RN 03/14/19 13:46:31 03/14/19 13:48:58 [facility] IntraOp Implant Log Audit 03/14/19 13:48:58 Tool Trouble Shooter: [id number] Modifier: [id number] <+> 2 Implant Identification Description <+> 2 Implant Identification Lot Number <+> 2 Implant Identification Respiratory Medicine Physician Name: <+> 2 Implant Expiration Date <+> 2 Implant Site <+> 2 Implant Quantity <+> 2 Implant Identification Catalog Number <+> 2 Implant Has an Expiration Date <+> 2 Type [facility] IntraOp Intraoperative Assessment Entry 1 Handoff Method [...] Modified By: Gia Armendariz RN 03/14/19 13:07:39 [facility] IntraOp Intraoperative Equipment Entry 1 Equipment Intraop Monitoring Electrocardiogram Three lead placement (ECG) Electrode Placement Blood Pressure Non-Invasive BP Device Source Blood Pressure Arm, right upper Location Pulse Oximeter Hand, left Probe Site Antiembolic Devices Scopes Photo/Video Documentation Last Modified By: Gia Armendariz RN 03/14/19 13:08:03 [facility] IntraOp Medication Admin Entry 1 Entry 2 [...] Duncan, Richelle, RN 03/14/19 13:10:57 03/14/19 13:10:57 [facility] IntraOp Medication Admin Audit 03/14/19 13:58:22 Tool Trouble Shooter: [id number] Modifier: [id number] 1 <*> Dose 50 [facility] IntraOp Patient Positioning Entry 1 Procedure Aortogram [...] Modified By: Gia Armendariz RN 03/14/19 13:11:17 [facility] IntraOp Sign In Entry 1 Patient, Site, [...] Modified By: Gia Armendariz RN 03/14/19 13:11:29 [facility] IntraOp Sign Out Entry 1 RN Confirmation [...] Modified By: Gia Armendariz RN 03/14/19 13:11:49 [facility] IntraOp Sign Out Audit 03/14/19 14:01:07 Tool Trouble Shooter: [id number] Modifier: [id number] <+> 1 Sign Out Comment <+> 1 RN Sign Out Signature Date/Time [facility] IntraOp Skin Prep Entry 1 Procedure Aortogram Abdominal with Runoff(Left) Prescribed N/A Pre-Surgical Prep Completed Prep Area LEFT ARM AND HAND TO AXILLA, BILATERAL GROINS, LEFT FOOT Intraop Prep Integumentary WDL Assessment WDL Prep Agents Chloraprep Prep by Gia Armendariz RN Hair Removal Methods No hair removal performed Last Modified By: Gia Armendariz RN 03/14/19 13:12:51 [facility] IntraOp Skin Prep Audit 03/14/19 13:29:16 Tool Trouble Shooter: [id number] Modifier: [id number] 1 <*> Prep Area LEFT ARM AND HAND TO AXILLA, BILATERAL GROINS 1 <*> Procedure Aortogram Abdominal with Runoff(Left) [facility] IntraOp Surgical Procedures Entry 1 Procedure Aortogram [...] LEFT SUPERFICIAL FEMORAL ARTERY ANGIOPLASTY AND STENTING [facility] Intra Surgical Procedures Audit 03/14/19 14:07:58 Tool Trouble Shooter: [id number] Modifier: [id number] 1 <*> Stop 03/14/19 13:37:02 Tool Trouble Shooter: [id number] Modifier: [id number] 1 <*> Procedure Aortogram Abdominal with Runoff [...] L ACCESS W/ ULTRASOUND ACCESS 03/14/19 13:28:04 Tool Trouble Shooter: [id number] Modifier: [id number] 1 <*> Procedure Aortogram Abdominal with Runoff 1 <*> Additional Procedure Description LEFT RADIAL ACCESS UNDER ULTRASOUND GUIDANCE WITH LEFT UPPER EXTREMITY ANGIOGRAM, CATHETER PLACEMENT WITHIN AORTA; LEFT ACCESS UNDER ULTRASOUND GUIDANCE WITH [facility] IntraOP Time Out Entry 1 Procedure to [...] Modified By: Gia Armendariz, RN 03/14/19 13:16:01 [facility] IntraOp X-Ray and Images Entry 1 X-Ray/Imaging Type Fluoroscopy Fluoroscopy Type Fixed Site OPSITE Ticket Worker Name Coco Pfeiffer, Cardiovascular Public Speaking Instructor Protective Devices Yes Used Exposure Time 6.6 MIN Last Modified By: Gia Armendariz RN 03/14/19 13:54:17 [facility] IntraOp X-Ray and Images Audit 03/14/19 13:54:17 Tool Trouble Shooter: [id number] Modifier: [id number] <+> 1 Exposure Time Case Comments <None> [...]
--- OUTSIDE RECORDS SUMMARY | 2024-12-07 13:31 | XMS_ITS | Encounter Summary ---
Author Organization [employer] ([place], [place], [place], [place]) Address [address] [place] [address] Care Team Providers Care Clerk Cashier Name Role Phone Unavailable Primary Care Provider Unavailabl e Encounter Details Date Type Department Care Team (Late st Contact Info) Description 02/12/2019 Transcribed Document [facility] [place] [facility] [place] [address] ProviderRegina MD [address] [place] [address] Social History Tobacco Use Types Packs/Day [...] Henley MD - 02/12/2019 5:18 PM CDT [facility] [place] [address] THOMAS GTZ SRIRAM :1955 Visit Time:02/12/2019 Your Visit Summary Your Care Team Admitting Physician - TONY PEÑA MD-SUR Attending Physician - TONY PEÑA MD-SUR Primary Care Physician - JACKIE BABIN MD-FAM Referring Physician - JACKIE BABIN MD-FAM PHY, NOT LISTED Your Diagnosis Atherosclerosis of council arteries of extremities with intermittent claudication, unspecified extremity, Atherosclerosis of council arteries of extremities with intermittent claudication, unspecified [...] Appointment has been made with [facility]. Where: [address] [place], [place] [phone]- [phone] Medications What How Much When Instructions Next Dose acetaminophen-hydrocodone ([place] 7.5 mg-325 mg oral tablet) 1 Tablet(s) [...] Document Reviewed: 05/14/2011 ExitCare?? Patient Information ??2013 [employer]. Angiogram, Care After This sheet gives you [...] and water are not available, use hand contract designer. ? Change your dressing as told by [...] contrast dye from your body. ??? Take zibb-frz-ddezkai and prescription medicines only as told by [...] 10/28/2005 Document Revised: 03/16/2017 Document Reviewed: 03/16/2017 [employer] Patient Education ?? 2019 [facility]. Moderate Conscious Sedation, Adult, Care After These [...] you are awake and alert. ??? Take xowt-wbc-buvpsrf and prescription medicines only as told by [...] 01/30/2014 Document Revised: 09/13/2016 Document Reviewed: 07/31/2016 [employer] Interactive Patient Education ?? 2019 [facility]. Emergency Awareness and Preventative Care STROKE is [...] Assistance with quitting is available by contacting 8-004-RBVR-NOW. This is a free resource providing counseling, [...] was given the opportunity to ask questions. Patient/Rotary Slicing Machine Operator Name: Patient/Rotary Slicing Machine Operator Signature: Relationship to Patient: Clinician/Hospital Rotary Slicing Machine Operator Signature: Date: Electronically signed by Mickey, [facility] Conversion Product Lead Andrew at 08/13/2022 11:16 AM CDT documented in this encounter Plan of Treatment Not on file documented as of this encounter Visit Diagnoses Not on filedocumented in this encounter
--- OUTSIDE RECORDS SUMMARY | 2024-12-07 13:31 | XMS_ITS | Encounter Summary ---
Author Organization [employer] ([place], [place], [place], [place]) Address [address] [place] [address] Care Team Providers Care Customer Liaison Name Role Phone Unavailable Primary Care Provider Unavailabl e Encounter Details Date Type Department Care Team (Late st Contact Info) Description 03/14/2019 Transcribed Document [facility] [place] Medicine [facility] [place] [address] ProviderRegina MD [address] [place] [address] Social History Tobacco Use Types Packs/Day Years Used Date Smoking Tobacco: Never Assessed Comments Unknown Sex and Gender Information Value Date Recorded Sex Assigned at Not on file Legal Sex Female 5:00 PM CDT Gender Identity Not on file Sexual Orientation Not on file documented as of this encounter Miscellaneous Notes * Cerner Conversion Note - Regina ProviderMD - 03/14/2019 12:37 PM MECHANICAL ENGINEERING TECHNICIAN [facility] Main OR Preop Summary Primary Physician: TONY PEÑA MD-SUR Finalized Date/Time: 03/14/19 13:13:44 Pt. Name: THOMAS GTZ SRIRAM Reynolds/Sex: 1955 Female Med Rec #: [id number] Physician: TONY PEÑA MD-SUR Financial #: [id number] Pt. Type: O Room/Bed: Admit/Disch: 03/14/19 09:48:00 - Institution: [facility] PreOp Case Times Entry 1 In Preop 03/14/19 10:14:00 Ready for Holding n/a Room Patient Ready for 03/14/19 11:25:00 Surgery Patient Out of Preop 03/14/19 12:14:00 Patient Out of n/a Holding Room Last Modified By: Susie Hernández, RN 03/14/19 13:13:43 [facility] PreOp Case Times Audit 03/14/19 13:13:43 Dredge Lever Operator: [id number] Modifier: [id number] <+> 1 Patient Out of Preop 03/14/19 11:25:55 Dredge Lever Operator: [id number] Modifier: [id number] <+> 1 Patient Ready for Surgery Finalized By: Susie Hernández RN Document Signatures Signed By: Susie Hernández RN 03/14/19 13:13 Electronically signed by Mickey [facility] Conversion Stock House Worker Cerner at 08/13/2022 11:17 AM CDT documented in this encounter Plan of Treatment Not on file documented as of this encounter Visit Diagnoses Not on filedocumented in this encounter
--- OUTSIDE RECORDS SUMMARY | 2024-12-07 13:31 | XMS_ITS | Encounter Summary ---
Author Organization [facility] Address [address] [place] [address] Care Team Providers Care Material Processor Name Role Phone Mustapha James MD Primary Care Provider + Reason for Visit * Reason Comments Med Refill Encounter Details Date Type Department Care Team (Late st Contact Info) Description 11/28/2024 Refill [facility] [address] [place] [address] Mustapha James MD [address] [place] [address] Acquired hypothyroidism Social History [...] Description 12/27/2024 2:00 PM EDT Office Visit [facility] [address] [place] [address] Mustapha James MD [address] [address] documented as of this encounter Visit Diagnoses Diagnosis Acquired hypothyroidism Unspecified hypothyroidism documented in this encounter Additional Health Concerns Assessment Noted Time PHQ-2 Depression Total Score: 1 10/24/19 24 2:19 PM EDT documented as of this encounter Care Teams Material Processor Relationship Specialty Start Date End Date Mustapha James MD [address] [place] [address] PCP - General Family Medicine 01/02/24 documented as of this encounter
--- OUTSIDE RECORDS SUMMARY | 2024-12-07 13:31 | XMS_ITS | Encounter Summary ---
Author Organization [facility] Address [address] [id number] Care Team Providers Care Puddler Helper Name Role Phone Mustapha James MD Primary Care Provider [phone] Miguel Lamb MD Unavailable [phone] Encounter Details Date Type Department Care Team (Late st Contact Info) Description 11/02/2024 Telephone [facility] [address] [phone] [place] [address] Social History Tobacco Use Types Packs/Day Years [...] PM EDT Appointment Cardiac Imaging [address] [place] [phone] 12/06/2025 1:30 PM EDT Office Visit [facility] [address] [facility]. [address] [place] [phone] Miguel Lamb MD [address] [place] [address] documented as of this encounter [...] documented as of this encounter Care Teams Puddler Helper Relationship Specialty Start Date End Date Mustapha James MD [address] [place] [address] PCP - General 09/05/20 Miguel Lamb MD [address] [place] [address] Referring Physician Interventional Cardiology 08/16/24 documented as of this encounter
--- OUTSIDE RECORDS SUMMARY | 2024-12-07 13:31 | XMS_ITS | Encounter Summary ---
Author Organization [employer] ([place], [place], [place], [place]) Address [address] [place] [address] Care Team Providers Care Pododermatologist Name Role Phone Unavailable Primary Care Provider Unavailabl e Encounter Details Date Type Department Care Team (Late st Contact Info) Description 03/13/2019 Transcribed Document [facility] [place] [facility] [place] [address] ProviderRegina MD [place] [address] Social History Tobacco Use Types [...] - Historical ProviderMD - 03/13/2019 1:53 PM OCCUPATIONAL HEALTH AND SAFETY OFFICER PAT Adult Entered On: 03/13/2019 13:59 EST Performed On: 03/13/2019 13:53 EST by Susie Hernández RN Height and Weight, Clinical Dosing Height Source : Measured Height Entry Format : [place] Height, Feet : 0 ft(Converted to: 0 cm, 0 Inch) Height, Inches : 63 Inch(Converted to: 5 ft 3 Inch, 160.02 cm) Clinical Height : 160.02 cm Weight Source : Standing scale Weight Entry Format : [place] Clinical Dosing Weight : 85.95 kg Weight, Pounds : 189.1 lb Body Surface Area (BSA) : 1.89 m2 Body Mass Index : 33.6 kg/m2 (HI) [place] Body Weight : 52 kg Susie Hernández RN - 03/14/2019 11:07 EST Health Histories Smoking Status : Former smoker, quit more than 30 days ago Smokeless Tobacco Status : Never Implant/Device Type, Materials Tech and Model : neck fusion and [...] History Fever/Chills Last 48 Hours : No Suise Hernández RN - 03/14/2019 11:07 EST Infectious [...] Family History of Anesthesia Reaction : None uSsie Hernández RN - 03/13/2019 13:53 EST Advance Directive Patient has Advance Directive *Q : Yes, Advance Directive not with the patient Advance Directive Type : Living will Copy Advance Directive Verified/on Chart : No Susie Hernández RN - 03/13/2019 13:53 EST [place] Suicide Severity Rating Scale (C-SSRS) CSSRS Past [...] Support Person/Pt Rep Name : Christine rodasgila [phone] Want Family/Rep/Phys Notified of Admit : No Emergency Contact #1 : see above Emergency Contact #1 Phone Number : . Emergency Contact #1 Relationship : . Emergency Contact #2 : . Emergency Contact #2 Phone Number : .. Emergency Contact #2 Relationship : . Information Obtained From : Patient Primary Language : Danish Preferred Communication Mode : Verbal Communication Barrier [...]
--- OUTSIDE RECORDS SUMMARY | 2024-12-07 13:31 | XMS_ITS | Encounter Summary ---
Author Organization [facility] Address [address] [place] [address] Care Team Providers Care Program Services Planner Name Role Phone Mustapha James MD Primary Care Provider + Encounter Details Date Type Department Care Team (Latest Contact Info) Description 12/06/2024 Travel Social History Tobacco Use Types Packs/Day [...] Description 12/27/2024 2:00 PM EDT Office Visit [facility] [address] [place] [address] Mustapha James MD [address] [place] [address] documented as of this encounter Visit Diagnoses Not on filedocumented in this encounter Additional Health Concerns Assessment Noted Time PHQ-2 Depression Total Score: 1 10/24/19 24 2:19 PM EDT documented as of this encounter Care Teams Program Services Planner Relationship Specialty Start Date End Date Mustapha James MD [address] [place] [address] PCP - General Family Medicine 01/02/24 documented as of this encounter
--- OUTSIDE RECORDS SUMMARY | 2024-12-07 13:31 | XMS_ITS | Encounter Summary ---
Author Organization [employer] ([place], [place], [place], [place]) Address [address] [place] [address] Care Team Providers Care Retail Attendant Name Role Phone Unavailable Primary Care Provider Unavailabl e Encounter Details Date Type Department Care Team (Late st Contact Info) Description 02/12/2019 Transcribed Document [facility] [place] Medicine [facility] [place] [address] ProviderRegina MD [address] [place] [address] Social History Tobacco Use Types [...] Document Reviewed: 05/14/2011 ExitCare? Patient Information ?2013 [employer]. Angiogram, Care After This sheet gives you [...] and water are not available, use hand carpenter assembler. ? Change your dressing as told [...] contrast dye from your body. ??? Take vaxh-qdl-frjysmo and prescription medicines only as told by [...] 10/28/2005 Document Revised: 03/16/2017 Document Reviewed: 03/16/2017 [employer] Patient Education ? 2019 [employer] Moderate Conscious Sedation, Adult, Care After [...] you are awake and alert. ??? Take bvya-vna-omiuubb and prescription medicines only as told by [...] 01/30/2014 Document Revised: 09/13/2016 Document Reviewed: 07/31/2016 [employer] Patient Education ? 2019 [employer] documented in this encounter Plan of Treatment Not on file documented as of this encounter Visit Diagnoses Not on filedocumented in this encounter
--- OUTSIDE RECORDS SUMMARY | 2024-12-07 13:32 | XMS_ITS | Encounter Summary ---
Author Organization [facility] Address [address] [place] [address] Care Team Providers Care Sole Conforming Machine Operator Name Role Phone Mustapha James MD Primary Care Provider + Reason for Visit * Reason Onset Date Comments Advice Only 10/18/2024 Encounter Details Date Type Department Care Team (Late st Contact Info) Description 10/18/2024 Telephone [facility] FAMILY MEDICINE [address] [place] [address] Mustapha James MD [address] [place] [address] Advice Only Social History Tobacco [...] Description 12/27/2024 2:00 PM EDT Office Visit [facility]ICINE [address] [phone] Mustapha James MD [address] [place] [address] documented as of this encounter Visit Diagnoses Not on filedocumented in this encounter Additional Health Concerns Assessment Noted Time PHQ-2 Depression Total Score: 1 10/24/19 24 2:19 PM EDT documented as of this encounter Care Teams Sole Conforming Machine Operator Relationship Specialty Start Date End Date Mustapha James MD [address] [place] [address] PCP - General Family Medicine 01/02/24 documented as of this encounter
--- OUTSIDE RECORDS SUMMARY | 2024-12-07 13:32 | XMS_ITS | Encounter Summary ---
Author Organization [facility] Address [address] [place] [address] Care Team Providers Care Polishing Machine Operator Name Role Phone Mustapha James MD Primary Care Provider + Reason for Visit * Reason Comments Med Refill Encounter Details Date Type Department Care Team (Late st Contact Info) Description 10/31/2024 Refill [facility] FAM[facility] MEDICINE [address] [place] [address] Mustapha James MD [address] [place] [address] Social History Tobacco Use Types [...] Visit [facility] [address] [place] [address] Mustapha James MD [address] [place] [address] documented as of this encounter Visit Diagnoses Not on filedocumented in this encounter Additional Health Concerns Assessment Noted Time PHQ-2 Depression Total Score: 1 10/24/19 24 2:19 PM EDT documented as of this encounter Care Teams Polishing Machine Operator Relationship Specialty Start Date End Date Mustapha James MD [address] [place] [address] PCP - General Family Medicine 01/02/24 documented as of this encounter
--- OUTSIDE RECORDS SUMMARY | 2024-12-07 13:32 | XMS_ITS | Encounter Summary ---
Author Organization [facility] Address [address] [place] [address] Care Team Providers Care Machine Paint Mixer Name Role Phone Mustapha James MD Primary Care Provider + Reason for Visit * Reason Comments Med Refill Encounter Details Date Type Department Care Team (Late st Contact Info) Description 11/02/2024 Refill [facility] FAMILY MEDICINE [address] [place] [address] Mustapha James MD [address] [place] [address] Failed back syndrome of lumbar [...] Description 12/27/2024 2:00 PM EDT Office Visit [facility] FAMILY MEDIC[facility] [address] 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
--- OUTSIDE RECORDS SUMMARY | 2024-12-07 13:32 | XMS_ITS | Encounter Summary ---
Author Organization [facility] Address [address] [place] [address] Care Team Providers Care Envelope Fold Operator Name Role Phone Mustapha James MD Primary Care Provider + Reason for Visit * Reason Onset Date Comments OVERNIGHT STUDY 09/27/2024 Encounter Details Date Type Department Care Team (Late st Contact Info) Description 09/27/2024 Telephone [facility] FAMILY MEDICINE [address] [place] [address] Mustapha James MD [address] [place] [address] OVERNIGHT STUDY Social History Tobacco [...] MEDICAL CENTER FAMILY MEDICINE [address] [place] [phone] Mustapha James MD [address] [place] [address] documented as of this encounter Visit Diagnoses Not on filedocumented in this encounter Additional Health Concerns Assessment Noted Time PHQ-2 Depression Total Score: 1 10/24/19 24 2:19 PM EDT documented as of this encounter Care Teams Envelope Fold Operator Relationship Specialty Start Date End Date Mustapha James MD [address] [place] [address] PCP - General Family Medicine 01/02/24 documented as of this encounter
[2024-12-07] MEDS: ferumoxytoL 510 MG in 0.9 % SODIUM CHLORIDE 50 ML 268 MG IV (13:44)
[2024-12-07 13:47] VITALS: BP 163/59; PULSE 101; RESP 17
[2024-12-07 14:02] VITALS: BP 106/56; PULSE 88; RESP 16
== END 2024-12-07 14:20 | disposition home or self-care (01) ==
LOC: INF 13:28
PROVIDERS: PCP Family Medicine; Visit Provider Internal Medicine Medical Oncology
DX: D64.9 Anemia, unspecified (principal)
CPT/HCPCS: 96374; Q0138

== ENCOUNTER 2024-12-18 12:43 | Outpatient (CLI) | payer MEDICARE, SELFPAY ==
--- OUTSIDE RECORDS SUMMARY | 2024-11-30 11:30 | XMS_ITS | Encounter Summary ---
Author Organization [facility] Address [address] [id number] Care Team Providers Care Concrete Building Assembler Name Role Phone Mustapha James MD Primary Care Provider [phone] Miguel Lamb MD Unavailable [phone] Reason for Referral * Consultation (Routine) - Authorized Specialty Diagnoses / Procedures Referred By Contac t Referred To Contact Diagnoses Nonrheumatic aortic valve stenosis Janice Avila PA [address] [place] [address] Phone: tel: fax: Referral ID Status Reason Start Date Expiration Date V isits Requested Visits Authorized [id number] Authorized 11/30/2024 06/01/2026 1 1 * Imaging (Routine) - Pending Review Specialty Diagnoses / Procedures Referred By Contac t Referred To Contact Cardiology Diagnoses Nonrheumatic aortic valve stenosis Procedures Echo, Adult Transthoracic Complete Janice Avila PA [address] [place] [address] Phone: tel: fax: Referral ID Status Reason Start Date Expiration Date Visits Requested Visits Authorized [id number] Pending Review Perform Procedure 11/30/2024 06/01/2026 1 1 Reason for Visit * Reason Comments Follow-up Encounter Details Date Type Department Care Team (Late st Contact Info) Description 11/30/2024 11:30 AM EDT Office Visit [facility] [place] [address] [place] [address] Miguel Lamb MD [address] [place] [address] Nonrheumatic aortic valve stenosis (Primary Dx); Coronary artery disease involving kootenai coronary artery of kootenai heart without angina pectoris; HFrEF (heart failure with reduced ejection fraction) ([facility]) Social History Tobacco Use Types Packs/Day Years [...] at all 11/30/2024 10:54 AM EDT Celestino Li * How difficult have these problems made [...] August. She was seen by her primary plastics supervisor and medications were adjusted, but she reports minimal improvement in edema and symptoms. She had an echo yesterday to re-evaluate her aortic stenosis. 08/30/24 1. 90% ostial left main stenosis s/p successful PCI with placement of a 4.5 x 15 mm Castro [place] drug-eluting stent (overlapping with previously placed stent distally and 1-2 mm of stent extending in the aorta) 2. 70% heavily calcified distal left main severe in-stent re-stenosis s/p balloon angioplasty with a 3.5 NC balloon 3. 90% ostial RCA stenosis s/p successful PCI with placement of a 3.0 x 12 mm and 3.0 x 18 mm Castro Manjit drug-eluting stent. Proximal-mid stent post- dilated [...] 26 mm and 2.75 x 30 mm Castro Hoffman drug-eluting stents (proximal-distal). Review of Systems 14 [...] HFrEF (heart failure with reduced ejection fraction) ([facility]) Nonrheumatic aortic valve stenosis - Primary Relevant Orders Echo, Adult Transthoracic Complete Follow Up Cardiology #CAD #HFrEF #Aortic Stenosis --Echo from OSH completed yesterday reviewed by Dr. Lamb showing reduced LV function with moderate aortic stenosis --Patient admits to increasing shortness of breath and edema --Valve does not appear ready for intervention on most recent echo --Continue to follow with general plastics supervisor for medical management of symptoms --Continue DAPT after extensive coronary work in August 2024 Continue following with general plastics supervisor, follow-up in 1 year with echo prior. I spent 35 minutes performing the following components of the encounter (on the day of the encounter): reviewing History, examining the patient, reviewing imaging and/or labs, Independently interpreting echocardiogram, ECG and/or other imaging results, counseling the patient and family/caregiver, communicating with other health resident care manager, and entering clinical information in the EHR. [...] Administer 1 spray into each nostril daily. Hxnqcxykdsz-Cupdvltnm-Xrhobt (Trelegy Ellipta) 100-62.5-25 MCG/ACT aerosol powder Inhale. HYDROcodone-acetaminophen ([place]) 7.5-325 MG tablet Take 1 tablet by [...] EDT Appointment Cardiac Imaging [address] [place] [address] 12/06/2025 1:30 PM EDT Office Visit [facility] [place] [address] [place] [address] Miguel Lamb MD [address] [place] [address] Scheduled Orders Name Type Priority Associated Diagnoses [...] valve stenosis- Primary Coronary artery disease involving kootenai coronary artery of kootenai heart without angina pectoris HFrEF (heart failure with reduced ejection fraction) ([facility]) documented in this encounter Additional Health Concerns Assessment Noted Time PHQ-9 Depression Total Score: 0 07/21/19 11:35 AM EDT A fall risk assessment has been complete d for the patient 11/30/2024 10:54 AM EDT A Body Mass Index follow-up plan has been documented for the patient 11/30/2024 11:54 AM EDT documented as of this encounter Care Teams Concrete Building Assembler Relationship Specialty Start Date End Date Mustapha James MD [address] [place] [address] PCP - General 09/05/20 Miguel Lamb MD [address] [place] [address] Referring Physician Interventional Cardiology 08/16/24 documented as of this encounter
--- OUTSIDE RECORDS SUMMARY | 2024-12-06 06:05 | XMS_ITS | Encounter Summary ---
[facility] Address [address] [place] [address] Care Team Providers Care Rate Setter Name Role Phone Mustapha James MD Primary Care Provider + Encounter Details Date Type Department Care Team (Late st Contact Info) Description 12/06/2024 6:05 AM EDT Hospital Encounter [facility] [address] [place] [phone] Social History Tobacco Use Types Packs/Day Years [...] [facility] [address] [place] [address] Mustapha James MD [address] [place] [address] 01/18/2025 8:00 AM EDT Appointment [facility] [address] [place] [phone] 01/18/2025 9:00 AM EDT Appointment [facility] [address] [place] [address] 01/18/2025 11:00 AM EDT Office Visit [facility] [address] [place] [address] Chirag Mckee MD [address] [place] [address] documented as of this encounter Visit Diagnoses Not on filedocumented in this encounter Additional Health Concerns Assessment Noted Time PHQ-2 Depression Total Score: 1 10/24/19 24 2:19 PM EDT documented as of this encounter Care Teams Rate Setter Relationship Specialty Start Date End Date Mustapha James MD [address] [place] [address] PCP - General Family Medicine 01/02/24 documented as of this encounter
--- OUTSIDE RECORDS SUMMARY | 2024-12-06 14:00 | XMS_ITS | Encounter Summary ---
Author Organization [facility] Address [address] [place] [address] Care Team Providers Care Superintendent Drilling Name Role Phone Mustapha James MD Primary Care Provider + Encounter Details Date Type Department Care Team (Late st Contact Info) Description 12/06/2024 2:00 PM EDT Clinical Support [facility] [address] [place] [address] Chirag Mckee MD [address] [place] [address] NSCLC of right lung (Primary Dx) Social History Tobacco Use Types Packs/Day Years [...] as of this encounter Progress Notes * Chirag Mckee MD - 12/06/2024 2:00 PM EDT FOLLOW UP NOTE PATIENT: Jodi Byrne : 1955 COMPLETION DATE: 04/14/2023 DIAGNOSIS: 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 The patient preferred method of communication was the phone. BRIEF HISTORY: Jodi Byrne is a very pleasant 69 y.o. female returning for scheduled follow-up visit. She has a complicated medical history including multiple vascular procedures, cardiovascular disease, COPD, and ongoing tobacco abuse who was under surveillance for an enlarging spiculated right upper lobe lung lesion. The patient underwent biopsy on 02/01/2023 which was consistent with pulmonary adenocarcinoma. Staging PET/CT scan performed 02/14/2023 showed the biopsy- proven 3.3 cm mass in the right upper lobe of lung to be hypermetabolic, with no evidence of regional mediastinal or distant metastatic disease. A single hypermetabolic right inguinal lymph node was indeterminate but felt to likely relate to her multiple prior inguinal procedures including a previous stent insertion site. The patient was evaluated by CT surgery and opted for definitive treatment with nonsurgical approach. Sheunderwent a course of CyberKnife SBRT to a dose of 48 Gy in 4 fractions delivered to the biopsy-proven right upper lobe lesion, completing 04/14/2023. The patient has had some work done with Dr. Lamb with multiple since her heart parents on she is also severely anemic and is undergoing further workup and treatments for her for that. The patient ports that she has a valve that needs to be repaired. She has plans to do that in the near future as well. The patient recently had a CAT scan and calls today to discuss the scans. The patient reports that she has been having a lot of coughing and produces a fair amount of sputum. She reports that she feels very fatigued and is having a great deal of difficulty getting around and performing her ADLs presently. MEDICATIONS: Current Outpatient Medications: albuterol sulfate HFA 108 (90 Base) MCG/ACT inhaler, , Disp: , Rfl: aspirin 81 MG EC tablet, Take 1 tablet by mouth Daily., Disp: , Rfl: baclofen (LIORESAL) 10 MG tablet, Take 1 tablet by mouth Every Night., Disp: 30 tablet, Rfl: 2 Bempedoic Acid 180 MG tablet, Take 1 tablet by mouth Daily., Disp: 30 tablet, Rfl: 11 cetirizine (zyrTEC) 10 MG tablet, Take 1 tablet by mouth Daily., Disp: , Rfl: clopidogrel (PLAVIX) 75 MG tablet, , Disp: , Rfl: coenzyme Q10 50 MG capsule capsule, Take by mouth Daily., Disp: , Rfl: diazePAM (VALIUM) 5 MG tablet, TAKE 1 TABLET BY MOUTH EVERY 6 (SIX) HOURS NEEDED FOR ANXIETY MAY CAUSE DROWSINESS, Disp: 120 tablet, Rfl: 2 doxycycline (VIBRAMYCIN) 100 MG capsule, Take 1 capsule by mouth 2 (Two) Times a Day for 7 days., Disp: 14 capsule, Rfl: 0 famotidine (PEPCID) 20 MG tablet, Take 1 tablet by mouth 2 (Two) Times a Day., Disp: , Rfl: fluticasone (FLONASE) 50 MCG/ACT nasal spray, Administer 2 sprays into the nostril(s) as directed by provider Daily., Disp: , Rfl: Kidsnahwmkh-Quufesyyw-Skrfcg (Trelegy Ellipta) 100-62.5-25 MCG/ACT inhaler, Inhale 1 puff Daily., Disp: 1 each, Rfl: 11 HYDROcodone-acetaminophen (NORCO) 7.5-325 MG per tablet, TAKE 1 TABLET BY MOUTH EVERY 8 HOURS NEEDED FOR MODERATE PAIN., Disp: 90 tablet, Rfl: 0 lansoprazole (PREVACID) 30 MG capsule, Take 1 capsule by mouth Daily., Disp: 30 capsule, Rfl: 11 levothyroxine (SYNTHROID, LEVOTHROID) 50 MCG tablet, TAKE 1 TABLET BY MOUTH ONCE DAILY, Disp: 30 tablet, Rfl: 4 lisinopril (PRINIVIL,ZESTRIL) 20 MG tablet, TAKE 1 TABLET BY MOUTH ONCE DAILY, Disp: 30 tablet, Rfl: 11 metoprolol succinate XL (TOPROL-XL) 50 MG 24 hr tablet, Take 1.5 tablets by mouth Daily., Disp: 45 tablet, Rfl: 11 montelukast (SINGULAIR) 10 MG tablet, , Disp: , Rfl: nitroglycerin (NITROSTAT) 0.4 MG SL tablet, TAKE ONE TABLET BY MOUTH UNDER TONGUE NEEDED FOR PAIN DIRECTED, Disp: 25 tablet, Rfl: 1 nystatin-triamcinolone (MYCOLOG II) 298946-2.1 UNIT/GM-% cream, Apply 1 Application topically to the appropriate area as directed 2 (Two) Times a Day., Disp: 60 g, Rfl: 1 Repatha SureClick solution auto-injector SureClick injection, , Disp: , Rfl: torsemide (DEMADEX) 20 MG tablet, Take 1 tablet by mouth Daily., Disp: 30 tablet, Rfl: 0 vitamin D (ERGOCALCIFEROL) 1.25 MG (89500 UT) capsule capsule, TAKE 1 CAPSULE BY MOUTH 1 (ONE) TIMEPER WEEK., Disp: 5 capsule, Rfl: 2 Review of Systems: Review of Systems - Oncology A full 14 point review of systems was performed and was negative except as noted in the HPI. Physical Exam: Physical Exam Pulmonary: Respirations even, unlabored. No audible wheezing or cough. Neurological: A+Ox4, conversant, answers questions appropriately. Psychiatric: Judgement, affect, and decision-making WNL. VITAL SIGNS: There were no vitals filed for this visit. The following portions of the patient's history were reviewed and updated as appropriate: allergies, current medications, past family history, past medical history, past social history, past surgicalhistory and problem list. I reviewed the patient's radiation treatment plan. I reviewed the patient's pretreatment PET scans. I reviewed the patient's subsequent CAT scans. I reviewed the patient's CAT scan reports. The patient does appear to have some thickening that is mostly in the plane of her previous radiation however it is changing a bit over time. I do not see any obvious new adenopathy in the mediastinum. CT Chest Without Contrast Diagnostic Result Date: 02/15/2024 Impression: 1. Stable size of spiculated 3.2 [...] MD 02/15/2024 10:36 PM EDT Workstation ID: [id number] I reviewed the patient's planning scan and most recent CAT scans and MRI scan prior to treatment with the patient today. IMPRESSION: The patient is a very pleasant 68-year-old female with what appears to be a clinical stage IB (cT2, cN0, cM0) adenocarcinoma of the right upper lobe of lung. This is biopsy-proven. She underwent definitive treatment with a course of CyberKnife SBRT completed on 04/14/2023. The patient does have some increased thickening in her right lung in the area adjacent to her previous treatments. This is a continue to change analyst time. I would recommend a PET scan in 6 weeks to reevaluate her case. The patient does report that presently she is unable to come in for scans due to the fatigue that she is having from her cardiac procedures. We discussed that if the patient is unable to have her scan in 6 weeks due to how she is feeling that we may have to push her back another 6 weeks after that. I spent 40 minutes in patient's case today. I was on the phone with 30 minutes in direct conversation with the patient today. RECOMMENDATIONS: Adenocarcinoma of the right upper lobe of lung -Spiculated -Biopsy-proven -Hypermetabolic on PET/CT -No evidence of mediastinal or distant disease -Right groin area on PET scan likely represents previous stent insertion site -Previously evaluated by CT surgery and borderline candidate for surgery -Status post CyberKnife SBRT 48 Jose in 4 fractions -Completed 06/15/2022 -Continued evolution and increased thickening in the area of the previously treated lesion - Recommend PET scan in 6 weeks -Noncontrasted given patient's listed allergy to contrast dye and also gadolinium -RTC at that time Cough and sputum production - Recommend course of doxycycline Chirag Mckee MD Errors in dictation may reflect use of voice recognition software and not all errors in behavioral medical director may have been detected prior to signing. documented in this encounter Plan of Treatment Upcoming Encounters Date Type Department Care Team (Late st Contact Info) Description 12/27/2024 2:00 PM EDT Office Visit [facility] [address] [place] [address] Mustapha James MD [address] [place] [address] 01/18/2025 8:00 AM EDT Appointment [facility] PET [address] [place] [address] 01/18/2025 9:00 AM EDT Appointment [facility] PET [address] [place] [address] 01/18/2025 11:00 AM EDT Office Visit [facility] [address] [facility] [place] [place] [address] Chirag Mckee MD [address] [place] [address] documented as of this encounter Visit Diagnoses Diagnosis NSCLC of right lung- Primary documented in this encounter Additional Health Concerns Assessment Noted Time PHQ-2 Depression Total Score: 1 10/24/19 2:19 PM EDT documented as of this encounter Care Teams Superintendent Drilling Relationship Specialty Start Date End Date Mustapha James MD [address] [place] [address] PCP - General Family Medicine 01/02/24 documented as of this encounter
--- NOTE | 2024-12-18 12:45 | PC.NURSE ---
1245-COLLECTED LABS VIA VEINPUNCTURE STICK IN LEFT AC WITH BUTTERFLY NEEDLE;PT TO APPT
--- OUTSIDE RECORDS SUMMARY | 2024-12-18 12:46 | XMS_ITS | Encounter Summary ---
Author Organization [facility] Address [address] [place] [address] Care Team Providers Care Urban Planner Name Role Phone Mustapha James MD Primary Care Provider + Encounter Details Date Type Department Care Team (Late st Contact Info) Description 11/21/2024 Documentation [facility] [address] [facility] [address] [place] [address] Lauren Velasco, DON Social History [...] assist with getting pt to scan in [place]. Ptreported if she can get her CT Scan at [facility], she has someone that can assist with transport. PEARL confirmed with RN this is possible, and that we will work on scheduling it. Pt thanked PEARL and will look out for call with schedule. documented in this encounter Plan of Treatment Upcoming Encounters Date Type Department Care Team (Late st Contact Info) Description 12/27/2024 2:00 PM EDT Office Visit [facility] FAMILY MEDICINE [address] [facility] [address] [place] [phone] Mustapha James MD [address] [facility] [place] [address] 01/18/2025 8:00 AM EDT Appointment [facility] PET [address] [facility] [address] [place] [phone] 01/18/2025 9:00 AM EDT Appointment [facility] PET [address] [facility] [place] [place] [phone] 01/18/2025 11:00 AM EDT Office Visit [facility] [address] [place] [address] Chirag Mckee MD [address] [place] [address] documented as of this encounter Visit Diagnoses Not on filedocumented in this encounter Additional Health Concerns Assessment Noted Time PHQ-2 Depression Total Score: 1 10/24/19 2:19 PM EDT documented as of this encounter Care Teams Urban Planner Relationship Specialty Start Date End Date Mustapha James MD [address] [facility] [place] [address] PCP - General Family Medicine 01/02/24 documented as of this encounter
--- OUTSIDE RECORDS SUMMARY | 2024-12-18 12:46 | XMS_ITS | Encounter Summary ---
Author Organization [facility] Address [address] [place] [address] Care Team Providers Care Vegetable Buncher Name Role Phone Mustapha James MD Primary Care Provider + Reason for Visit * Reason Comments Med Refill Encounter Details Date Type Department Care Team (Late st Contact Info) Description 11/28/2024 Refill [facility] FAMILY MEDICINE [address] [place] [address] Mustapha James MD [address] [place] [address] Acquired hypothyroidism Social History Tobacco [...] Description 12/27/2024 2:00 PM EDT Office Visit [facility] FAM[facility] MEDICINE [address] [place] [address] Mustapha James MD [address] [place] [address] 01/18/2025 8:00 AM EDT Appointment [facility] PET [address] [facility] [place] [address] 01/18/2025 9:00 AM EDT Appointment [facility] PET [address] [facility] [place] [place] [address] 01/18/2025 11:00 AM EDT Office Visit [facility] [address] [place] [address] Chirag Mckee MD [address] [place] [address] documented as of this encounter Visit Diagnoses Diagnosis Acquired hypothyroidism Unspecified hypothyroidism documented in this encounter Additional Health Concerns Assessment Noted Time PHQ-2 Depression Total Score: 1 10/24/19 24 2:19 PM EDT documented as of this encounter Care Teams Vegetable Buncher Relationship Specialty Start Date End Date Mustapha James MD [address] [place] [address] PCP - General Family Medicine 01/02/24 documented as of this encounter
--- OUTSIDE RECORDS SUMMARY | 2024-12-18 12:46 | XMS_ITS | Encounter Summary ---
Author Organization [facility] Address [address] [place] [address] Care Team Providers Care Holter Scanning Technician Name Role Phone Mustapha James MD Primary Care Provider + Encounter Details Date Type Department Care Team (Late st Contact Info) Description 12/03/2024 Telephone [facility] [address] [place] [address] Bertha Ambrose, PATRICIA Social History [...] on 12/09 @ 2pm [address] [facility]. documented in this encounter Plan of Treatment Upcoming Encounters Date Type Department Care Team (Late st Contact Info) Description 12/27/2024 2:00 PM EDT Office Visit [facility] FAMILY MEDICINE [address] [place] [phone] Mustapha James MD [address] [place] [address] 01/18/2025 8:00 AM EDT Appointment [facility] PET [address] [place] [phone] 01/18/2025 9:00 AM EDT Appointment [facility] PET [address] [place] [address] 01/18/2025 11:00 AM EDT Office Visit [facility] [address] [place] [address] Chirag Mckee MD [address] [place] [address] documented as of this encounter Visit Diagnoses Not on filedocumented in this encounter Additional Health Concerns Assessment Noted Time PHQ-2 Depression Total Score: 1 10/24/19 24 2:19 PM EDT documented as of this encounter Care Teams Holter Scanning Technician Relationship Specialty Start Date End Date Mustapha James MD [address] [place] [address] PCP - General Family Medicine 01/02/24 documented as of this encounter
--- OUTSIDE RECORDS SUMMARY | 2024-12-18 12:46 | XMS_ITS | Encounter Summary ---
Author Organization [facility] Address [address] [place] [address] Care Team Providers Care Slotter Operator Name Role Phone Mustapha James MD Primary Care Provider + Encounter Details Date Type Department Care Team (Late st Contact Info) Description 12/03/2024 Documentation [facility] [address] [place] [address] Bertha Ambrose, PATRICIA Social History [...] Description 12/27/2024 2:00 PM EDT Office Visit [facility] FAM[facility] MEDICINE [address] [facility] [place] [phone] Mustapha James MD [address] [place] [address] 01/18/2025 8:00 AM EDT Appointment [address] [place] [address] 01/18/2025 9:00 AM EDT Appointment [address] [place] [address] 01/18/2025 11:00 AM EDT Office Visit [facility] [address] [place] [address] Chirag Mckee MD [address] [place] [address] documented as of this encounter Visit Diagnoses Not on filedocumented in this encounter Additional Health Concerns Assessment Noted Time PHQ-2 Depression Total Score: 1 10/24/19 24 2:19 PM EDT documented as of this encounter Care Teams Slotter Operator Relationship Specialty Start Date End Date Mustapha James MD [address] [place] [address] PCP - General Family Medicine 01/02/24 documented as of this encounter
--- OUTSIDE RECORDS SUMMARY | 2024-12-18 12:47 | XMS_ITS | Encounter Summary ---
Author Organization [employer] ([place], [place], [place], [place]) Address [address] [place] [address] Care Team Providers Care Avionics Technician Name Role Phone Unavailable Primary Care Provider Unavailabl e Encounter Details Date Type Department Care Team (Late st Contact Info) Description 03/14/2019 Transcribed Document [facility] [place] Medicine [address] [place] [address] ProviderRegina MD [facility] [place], [place] [address] Social History Tobacco Use Types Packs/Day Years Used Date Smoking Tobacco: Never Assessed Comments Unknown Sex and Gender Information Value Date Recorded Sex Assigned at Not on file Legal Sex Female 5:00 PM CDT Gender Identity Not on file Sexual Orientation Not on file documented as of this encounter Miscellaneous Notes * [employer]ner Conversion Note - Historical ProviderMD - 03/14/2019 4:16 PM HANDKERCHIEF SAMPLE CLERK Nursing Discharge Summary Entered On: 03/14/2019 16:19 [...] Evaluation : Returns demonstration, Verbalizes understanding DANIELLE GACRIA RN - 03/14/2019 16:16 EST Electronically signed by Mickey [facility] Conversion Analyst [employer] Cerner at 08/13/2022 11:21 AM CDT documented in this encounter Plan of Treatment Not on file documented as of this encounter Visit Diagnoses Not on filedocumented in this encounter
--- OUTSIDE RECORDS SUMMARY | 2024-12-18 12:47 | XMS_ITS | Encounter Summary ---
Author Organization [employer] ([place], [place], [place], [place]) Address [address] [place] [address] Care Team Providers Care Powder Expert Name Role Phone Unavailable Primary Care Provider Unavailabl e Encounter Details Date Type Department Care Team (Late st Contact Info) Description 03/13/2019 Transcribed Document [facility] [place] [facility] [place] [address] ProviderRegina [place] [address] Social History Tobacco Use Types [...] - Historical ProviderMD - 03/13/2019 1:53 PM FRAMING MANAGER PAT Adult Entered On: 03/13/2019 13:59 EST Performed On: 03/13/2019 13:53 EST by Susie Hernández RN Height and Weight, Clinical Dosing Height Source : Measured Height Entry Format : [place] Height, Feet : 0 ft(Converted to: 0 cm, 0 Inch) Height, Inches : 63 Inch(Converted to: 5 ft 3 Inch, 160.02 cm) Clinical Height : 160.02 cm Weight Source : Standing scale Weight Entry Format : [place] Clinical Dosing Weight : 85.95 kg Weight, Pounds : 189.1 lb Body Surface Area (BSA) : 1.89 m2 Body Mass Index : 33.6 kg/m2 (HI) [place] Body Weight : 52 kg Susie Hernández RN - 03/14/2019 11:07 EST Health Histories Smoking Status : Former smoker, quit more than 30 days ago Smokeless Tobacco Status : Never Implant/Device Type, Bench Carpenter and Model : neck fusion and lumbar [...] Susie Hernández RN - 03/13/2019 13:53 EST [place] Suicide Severity Rating Scale (C-SSRS) CSSRS Past [...] Support Person/Pt Rep Name : Christine rodasgila [phone] Want Family/Rep/Phys Notified of Admit : No Emergency Contact #1 : see above Emergency Contact #1 Phone Number : . Emergency Contact #1 Relationship : . Emergency Contact #2 : . Emergency Contact #2 Phone Number : .. Emergency Contact #2 Relationship : . Information Obtained From : Patient Primary Language : [place] Preferred Communication Mode : Verbal Communication Barrier : None Susie Hernández RN - 03/13/2019 13:53 EST [place] Scale [place] Sensory Perception : Slightly limited [...]
--- OUTSIDE RECORDS SUMMARY | 2024-12-18 12:47 | XMS_ITS | Encounter Summary ---
Author Organization [employer] ([place], [place], [place], [place]) Address [address] [place] [address] Care Team Providers Care Wire Straightener Name Role Phone Unavailable Primary Care Provider Unavailabl e Encounter Details Date Type Department Care Team (Late st Contact Info) Description 03/14/2019 Transcribed Document [facility] Family Medicine [facility] [place] [address] ProviderRegina MD [address] [place] [address] Social History Tobacco Use Types Packs/Day [...] Regina Henley MD - 03/14/2019 4:22 PM BISTRO SERVER [facility] [place] [address] THOMAS GTZ SRIRAM :1955 Visit Time:03/14/2019 Your Visit Summary Your Care Team Admitting Physician - TONY PEÑA MD-SUR Attending Physician - TONY PEÑA MD-SUR Primary Care Physician - JACKIE BABIN MD-FAM Referring Physician - JACKIE BABIN MD-FAM PHY, NONE Your Diagnosis Atherosclerosis of [place] arteries of extremities with intermittent claudication, unspecified extremity, Atherosclerosis of mash[place] arteries of extremities with intermittent claudication, unspecified [...] Appointment has been made, with [facility] Where: [address] [place], [place] [phone]- [phone] Medications What How Much When Instructions Next Dose acetaminophen-hydrocodone ([place] 7.5 mg-325 mg oral tablet) 1 Tablet(s) [...] you are awake and alert. ??? Take gvem-uyz-hswqpwc and prescription medicines only as told by [...] 01/30/2014 Document Revised: 09/13/2016 Document Reviewed: 07/31/2016 [employer] Patient Education ?? 2019 [employer] Angiogram, Care After This sheet gives [...] and water are not available, use hand sportspersons. ? Change your dressing as told by [...] contrast dye from your body. ??? Take bzxb-ogv-bezzisn and prescription medicines only as told by [...] 10/28/2005 Document Revised: 03/16/2017 Document Reviewed: 03/16/2017 [employer] Patient Education ?? 2019 [employer] Angiogram An angiogram is a procedure [...] including vitamins, herbs, eye drops, creams, and hfjf-wqb-vkkrhdv medicines. ??? Any problems you or family [...] 01/19/2006 Document Revised: 08/16/2017 Document Reviewed: 05/18/2017 [employer] Patient Education ?? 2019 [employer]. Intermittent Claudication Intermittent claudication is pain [...] calories. Consider working with a diet and media center specialist (dietitian) to help you make healthy [...] blood pressure, or high cholesterol. ??? Take eyzv-nne-ffkepcw and prescription medicines only as told by [...] 02/11/2005 Document Revised: 05/12/2017 Document Reviewed: 05/12/2017 [employer] Patient Education ?? 2019 [employer]. Peripheral Vascular Disease Peripheral vascular disease (PVD) [...] activities for you. General instructions ??? Take qpca-goi-myzkald and prescription medicines only as told by [...] 05/19/2005 Document Revised: 05/19/2017 Document Reviewed: 05/19/2017 [employer] Patient Education ?? 2019 [employer]. Emergency Awareness and Preventative Care STROKE [...] Assistance with quitting is available by contacting 5-301-GFCENOW. This is a free resource providing counseling, [...] was given the opportunity to ask questions. Patient/Vendor Specialist Name: Patient/Vendor Specialist Signature: Relationship to Patient: Clinician/Hospital Vendor Specialist Signature: Date: documented in this encounter Plan of Treatment Not on file documented as of this encounter Visit Diagnoses Not on filedocumented in this encounter
--- OUTSIDE RECORDS SUMMARY | 2024-12-18 12:47 | XMS_ITS | Encounter Summary ---
Author Organization [employer] ([place], [place], [place], [place]) Address [address] [place] [address] Care Team Providers Care Chemistry Physics Teacher Name Role Phone Unavailable Primary Care Provider Unavailabl e Encounter Details Date Type Department Care Team (Late st Contact Info) Description 02/12/2019 Transcribed Document [facility] Family Medicine [facility] [place] [address] ProviderRegina MD [address] [place] [address] Social History Tobacco Use Types Packs/Day [...] 5:22 PM CDT [facility] [address] THOMAS GTZ SRIRAM :1955 Visit Time:02/12/2019 Your Visit Summary Your Care Team Admitting Physician - TONY PEÑA MD-SUR Attending Physician - TONY PEÑA MD-SUR Primary Care Physician - JACKIE BABIN MD-FAM Referring Physician - JACKIE BABIN MD-FAM PHY, NOT LISTED Your Diagnosis Atherosclerosis of [place] arteries of extremities with intermittent claudication, unspecified extremity, Atherosclerosis of [place] arteries of extremities with intermittent claudication, unspecified [...] Appointment has been made with [facility]. Where: [address] [place], [place] [phone]- [phone] Medications What How Much When Instructions Next Dose acetaminophen-hydrocodone ([place] 7.5 mg-325 mg oral tablet) 1 Tablet(s) [...] Document Reviewed: 05/14/2011 ExitCare?? Patient Information ??2013 [employer]. Angiogram, Care After This sheet gives you [...] and water are not available, use hand online marketing specialist. ? Change your dressing as told by [...] contrast dye from your body. ??? Take rpnm-aow-uuymxeh and prescription medicines only as told by [...] 10/28/2005 Document Revised: 03/16/2017 Document Reviewed: 03/16/2017 [employer] Patient Education ?? 2019 [employer]. Moderate Conscious Sedation, Adult, Care After These [...] you are awake and alert. ??? Take fhvb-mim-crnpzhw and prescription medicines only as told by [...] 01/30/2014 Document Revised: 09/13/2016 Document Reviewed: 07/31/2016 [employer] Patient Education ?? 2019 [employer]. clopidogrel (kloe PID oh grel) Plavix What [...] may report side effects to FDA at 3-040-ESB-1676. What other drugs will affect clopidogrel? Certain other medicines may increase your risk of bleeding, including aspirin. Avoid taking aspirin unless your doctor tells you to. Tell your doctor about all your other medicines, especially: ?? any other medicines to treat or prevent blood clots; ?? a stomach acid home aide such as omeprazole, Nexium, or Prilosec; ?? an antidepressant; ?? an opioid medication; ?? a blood thinner--warfarin, Coumadin, Jantoven; or ?? NSAIDs (nonsteroidal anti-inflammatory drugs)--ibuprofen (Advil, Motrin), naproxen (Aleve), celecoxib, diclofenac, indomethacin, meloxicam, and others. This list is not complete. Other drugs may affect clopidogrel, including prescription and jfze-snd-qtedbbj medicines, vitamins, and herbal products. Not all [...] to ensure that the information provided by [employer]. ('[employer]') is accurate, up-to-date, and complete, but no guarantee is made to that effect. Drug information contained herein may be time sensitive. [employer] information has been compiled for use by healthcare practitioners and consumers in the [place] and therefore [employer] does not warrant that uses outside of the [place] are appropriate, unless specifically indicated otherwise. [employer]'s drug information does not endorse drugs, diagnose patients or recommend therapy. [employer] drug information is an informational resource designed [...] with your doctor, nurse or pharmacist. Copyright 3516-9067 [employer]. Version: 15.. Revision Date: 02/13/2018. Emergency [...] Assistance with quitting is available by contacting 4-179-NUZQ-NOW. This is a free resource providing counseling, [...] was given the opportunity to ask questions. Patient/String Top Sealer Name: Patient/String Top Sealer Signature: Relationship to Patient: Clinician/Hospital String Top Sealer Signature: Date: Electronically signed by [facility] Conversion Accountant Tax Andrew at 08/13/2022 11:17 AM CDT documented in this encounter Plan of Treatment Not on file documented as of this encounter Visit Diagnoses Not on filedocumented in this encounter
--- OUTSIDE RECORDS SUMMARY | 2024-12-18 12:47 | XMS_ITS | Encounter Summary ---
Author Organization [employer] ([place], [place], [place], [place]) Address [address] [place] [address] Care Team Providers Care Statistical Developer Name Role Phone Unavailable Primary Care Provider Unavailabl e Encounter Details Date Type Department Care Team (Late st Contact Info) Description 03/14/2019 Transcribed Document [facility] Radiology [address] [place] [address] Martinez Miller MD [address] [facility] [place] [address] Social History Tobacco Use Types Packs/Day Years [...] skin and nails, Oral, Daily, 0 Refill(s) [place] 7.5 mg-325 mg oral tablet: 1 Tab, [...] Medication hair, skin and nails, Oral, Daily [place] 7.5 mg-325 mg oral tablet 1 Tab, [...] Problems Cervical spinal stenosis / SNOMED CT 091613202 / Confirmed Smoker / SNOMED CT 233858367 / Confirmed Sinusitis / SNOMED CT 38268732 / Confirmed Seasonal allergies / SNOMED CT 543984811 / Confirmed Restless leg / SNOMED CT 09628142 / Confirmed Colon polyps / SNOMED CT 025372368 / Confirmed Pneumonia / SNOMED CT 208612908 / Confirmed Peripheral vascular disease / SNOMED CT 5697342875 / Confirmed Peptic ulcer / SNOMED CT 93647936 / Confirmed Osteoporosis / SNOMED CT 780354230 / Confirmed Neuropathy, R arm / SNOMED CT 6514002113 / Confirmed Migraines / SNOMED CT 51492511 / Confirmed Skin cancer / SNOMED CT 5596141885 / Confirmed Hypertension / SNOMED CT 9284841707 / Confirmed Hyperlipidemia / SNOMED CT 86055448 / Confirmed Elevated cholesterol / SNOMED CT 31954086 / Confirmed Hiatal hernia / SNOMED CT 748151557 / Confirmed Hemorrhoids / SNOMED CT 245853396 / Confirmed H/O: TIA / SNOMED CT 256596249 / Confirmed GERD (gastroesophageal reflux disease) / SNOMED CT 834708092 / Confirmed Gastritis / SNOMED CT 3960151 / Confirmed Fibromyalgia / SNOMED CT 80330071 / Confirmed Fibroids / SNOMED CT 279703122 / Confirmed Endometriosis / SNOMED CT 3430085146 / Confirmed Diverticulitis / SNOMED CT 263311442 / Confirmed Sinus problem / SNOMED CT 8834404670 / Confirmed Known medical problems / SNOMED CT 066708856 / Confirmed white spots on MRI Known medical problems / SNOMED CT 600913172 / Confirmed anti nuclear A and A antibodies Constipation / SNOMED CT 86249173 / Confirmed COPD (chronic obstructive pulmonary disease) / SNOMED CT 67080638 / Confirmed Chronic cough / SNOMED CT 591848227 / Confirmed Chronic constipation / SNOMED CT 988495805 / Confirmed Stroke, possible / SNOMED CT 693715891 / Confirmed Bursitis / SNOMED CT 798804187 / Confirmed Bronchitis / SNOMED CT 39586876 / Confirmed Back pain / SNOMED CT 981842315 / Confirmed At risk for sleep apnea / IMO 67640144 / Confirmed Arthritis / SNOMED CT 9057101 / Confirmed Anemia / SNOMED CT 520625340 / Confirmed Allergic rhinitis / SNOMED CT 173623168 / Confirmed, Active Problems (40) Allergic rhinitis [...] EST Height Source Measured Height Entry Format [place] Height/Length, PRYDEINIG (ft) 0 ft Height/Length PRYDEINIG 63 Inch CLINICALHEIGHT 160.02 cm [place] Body Weight 52 kg Weight Source Standing scale Weight Entry Format [place] Weight Czech lb 189.1 lb CLINICALWEIGHT 85.95 kg Body [...] LLE weakness, uses cane. Integumentary: Warm, Dry, [place]. Neurologic: Alert, Oriented. Psychiatric: Cooperative, Appropriate mood [...]
--- OUTSIDE RECORDS SUMMARY | 2024-12-18 12:47 | XMS_ITS | Encounter Summary ---
Author Organization [facility] Address [address] [place] [address] Care Team Providers Care Audit Officer Name Role Phone Mustapha James MD Primary Care Provider + Reason for Visit * Reason Onset Date Comments Advice Only 10/18/2024 Encounter Details Date Type Department Care Team (Late st Contact Info) Description 10/18/2024 Telephone [facility] [address] [place] [address] Mustapha James MD [address] [place] [address] Advice Only Social History Tobacco [...] 2:00 PM EDT Office Visit [facility] [address] [place] [phone] Mustapha James MD [address] [place] [address] 01/18/2025 8:00 AM EDT Appointment [facility] [address] [place] [address] [place] [address] 01/18/2025 9:00 AM EDT Appointment [facility] [address] [place] [address] [place] [address] 01/18/2025 11:00 AM EDT Office Visit [facility] [address] [facility] [place] [address] Chirag Mckee MD [address] [place] [address] documented as of this encounter Visit Diagnoses Not on filedocumented in this encounter Additional Health Concerns Assessment Noted Time PHQ-2 Depression Total Score: 1 10/24/19 2:19 PM EDT documented as of this encounter Care Teams Audit Officer Relationship Specialty Start Date End Date Mustapha James MD [address] [place] [address] PCP - General Family Medicine 01/02/24 documented as of this encounter
--- OUTSIDE RECORDS SUMMARY | 2024-12-18 12:47 | XMS_ITS | Encounter Summary ---
Author Organization [employer] ([place], [place], [place], [place]) Address [address] [place] [address] Care Team Providers Care Software Systems Architect Name Role Phone Unavailable Primary Care Provider Unavailabl e Encounter Details Date Type Department Care Team (Late st Contact Info) Description 03/14/2019 Transcribed Document [facility] Family Medicine [address] [place] [address] ProviderRegina MD [address] [place] [address] Social History Tobacco Use Types [...] Regina Henley MD - 03/14/2019 4:15 PM DIGITAL MEDIA SALES CONSULTANT Patient Education Materials Follows: Moderate Conscious Sedation, [...] you are awake and alert. ??? Take bjvt-bhq-fvdldts and prescription medicines only as told by [...] 01/30/2014 Document Revised: 09/13/2016 Document Reviewed: 07/31/2016 [employer] Patient Education ? 2019 [employer] Angiogram, Care After This sheet gives [...] and water are not available, use hand box packer. ? Change your dressing as told by [...] contrast dye from your body. ??? Take wjkh-hgj-pbvrhlf and prescription medicines only as told by [...] 10/28/2005 Document Revised: 03/16/2017 Document Reviewed: 03/16/2017 [employer] Patient Education ? 2019 [employer] Angiogram An angiogram is a procedure [...] including vitamins, herbs, eye drops, creams, and berr-hgb-dhigahk medicines. ??? Any problems you or family [...] 01/19/2006 Document Revised: 08/16/2017 Document Reviewed: 05/18/2017 [employer] Patient Education ? 2019 [employer] Cardiovascular Intermittent Claudication Intermittent claudication is [...] calories. Consider working with a diet and physician credentialing specialist (dietitian) to help you make healthy [...] blood pressure, or high cholesterol. ??? Take uazs-dhn-jwoxjyw and prescription medicines only as told by [...] 02/11/2005 Document Revised: 05/12/2017 Document Reviewed: 05/12/2017 Else[employer]us Interactive Patient Education ? 2019 [employer] Peripheral Vascular Disease Peripheral vascular disease [...] activities for you. General instructions ??? Take qgrq-ccs-yvwmeqk and prescription medicines only as told by [...] 05/19/2005 Document Revised: 05/19/2017 Document Reviewed: 05/19/2017 Else[employer]ovus Interactive Patient Education ? 2019 [employer] documented in this encounter Plan of Treatment Not on file documented as of this encounter Visit Diagnoses Not on filedocumented in this encounter
--- OUTSIDE RECORDS SUMMARY | 2024-12-18 12:47 | XMS_ITS | Encounter Summary ---
Author Organization [employer] ([place], [place], [place], [place]) Address [address] [place] [address] Care Team Providers Care Branch Logistics Supervisor Name Role Phone Unavailable Primary Care Provider Unavailabl e Encounter Details Date Type Department Care Team (Late st Contact Info) Description 02/12/2019 Transcribed Document [facility] Family Medicine [facility] [place] [address] ProviderRegina MD [facility] [place] [address] Social History Tobacco Use Types [...] SRIRAM Reynolds/Sex: 1955 Female Med Rec #: [id number] Physician: TONY PEÑA MD-SUR Financial #: [id number] Pt. Type: O Room/Bed: HIS/11 Admit/Disch: 02/12/19 [...] 18:38 Electronically signed by Mickey [facility] Conversion Precinct Police Captain Cerner at 08/13/2022 11:16 AM CDT documented in this encounter Plan of Treatment Not on file documented as of this encounter Visit Diagnoses Not on filedocumented in this encounter
--- OUTSIDE RECORDS SUMMARY | 2024-12-18 12:47 | XMS_ITS | Clinical Summary ---
Author Organization [employer] ([place], [place], [place], [place]) Address [address] [place] [address] Care Team Providers Care Dietary Aide Cook Name Role Phone Unavailable Primary Care Provider [...] Date Mathew rded Speak language other than Mongolian at home Not on file 05/13/2023 Want [...]
--- OUTSIDE RECORDS SUMMARY | 2024-12-18 12:47 | XMS_ITS | Encounter Summary ---
Author Organization [facility] Address [address] [place] [address] Care Team Providers Care Rubber Compounder Name Role Phone Mustapha James MD Primary Care Provider + Reason for Visit * Reason Comments Med Refill Encounter Details Date Type Department Care Team (Late st Contact Info) Description 10/31/2024 Refill [facility] [address] [place] [address] Mustapha James MD [address] [place] [address] Social History Tobacco Use Types [...] Visit [facility] [address] [place] [address] Mustapha James MD [address] [address] 01/18/2025 8:00 AM EDT Appointment [facility] [address] [facility] [place] [address] 01/18/2025 9:00 AM EDT Appointment [facility] [address] [facility] [place] [address] 01/18/2025 11:00 AM EDT Office Visit [facility] [address] [place] [address] Chirag Mckee MD [address] [place] [address] documented as of this encounter Visit Diagnoses Not on filedocumented in this encounter Additional Health Concerns Assessment Noted Time PHQ-2 Depression Total Score: 1 10/24/19 24 2:19 PM EDT documented as of this encounter Care Teams Rubber Compounder Relationship Specialty Start Date End Date Mustapha James MD [address] [place] [id number] PCP - General Family Medicine 01/02/24 documented as of this encounter
--- OUTSIDE RECORDS SUMMARY | 2024-12-18 12:47 | XMS_ITS | Clinical Summary ---
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 30 tablet 11 024 Active lisinopril (PRINIVIL,ZESTRIL ) 20 MG tablet TAKE 1 TABLET BY MOUTH ONCE DAILY 30 tablet 11 025 Active lansoprazole (PREVACID) 30 MG capsule Take 1 capsule by mouth Daily. 30 capsule 025 Active nystatin-triamcin olone (MYCOLOG II) 932768-4.1 UNIT/GM-% creamIndications: Intertrigo Apply 1 Application topically to the appropriate area as directed 2 (Two) Times a Day. 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 45 tablet 11 025 Active diazePAM (VALIUM) 5 MG tabletIndications :Generalized anxiety disorder TAKE 1 TABLET BY MOUTH EVERY 6 (SIX) HOURS NEEDED FOR ANXIETY MAY CAUSE DROWSINESS 120 tablet 2 025 Active torsemide (DEMADEX) 20 MG tablet Take 1 tablet by mouth Daily. 30 tablet 025 Active vitamin D (ERGOCALCIFEROL) 1.25 MG (26359 UT) capsule capsule TAKE 1 CAPSULE BY [...] ONCE DAILY 30 tablet 4 025 Active multivitamin with minerals tablet tablet Take 1 tablet by mouth Daily. 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 30 tablet 2 025 2024 Discontinued(D rug interaction) doxycycline (VIBRAMYCIN) 100 MG capsule Take 1 capsule by mouth 2 (Two) Times a Day for 7 days. 14 capsule 025 2024 Active Problems Problem Noted Date Diagnosed Date [...] radiculopathy 08/21/2021 Coronary artery disease invo lving burns paiute coronary artery of burns paiute heart without angina pectoris 08/21/2021 Overview (01/24/2024): Supervisor [employer] Dr. Omar Chavez Assessment & Plan (01/24/2024 3:35 PM EDT): Condition is stable. Continue regular follow-up with [facility] cardiology. Regarding her LDL goal of less than 55 this is only achievable for the patient with combination therapy. She will continue Repatha. I have prescribed bempedoic acid although anticipate this will need a prior authorization and likely be cost prohibitive. Consideration could also be given to Leqvio which patient should discuss with her grant coordinator. Lipid panel will be ordered today Pulmonary emphysema 08/21/2021 Overview (08/21/2021): Pl[employer] Dr. Ally James Acquired hypothyroidism 08/21/2021 Assessment [...] [facility] [address] [place] [address] Chirag Mckee MD NSCLC of right lung (Primary Dx) 12/06/2024 6:05 AM EDT Hospital Encounter [facility] [address] [place] [address] 12/06/2024 Travel 12/06/2024 Telephone [facility] [address] [place] [phone] Elisha Hilario, PATRICIA 12/03/2024 Documentation [facility] [address] [place] [address] Bertha Ambrose, PATRICIA 12/03/2024 Telephone [facility] [address] [place] [address] Bertha Ambrose, PATRICIA 11/28/[address] [facility] [address] [facility] [place] [address] Mustapha James MD Acquired hypothyroidism 11/21/2024 Documentation [facility] [address] [facility] [address] [phone] Lauren Velasco MSW 11/02/[address] [facility] [address] [facility] [place] [address] Mustapha James MD Failed back syndrome of lumbar spine; Spondylosis of lumbar region without myelopathy or radiculopathy; Arthritis of lumbar spine 10/31/[address] [facility] [address] [facility] [address] Mustapha James MD 10/24/[address] [facility] [address] [facility] [place] [address] Mustapha James MD 10/18/[address] [facility] [address] [facility] [place] [address] Mustapha James MD Advice Only 10/11/[address] [facility] [address] [facility] [place] [address] Mustapha James MD Fluid Retention 09/27/2024 Refill [facility] [address] [place] [address] Mustapha James MD Failed back syndrome of lumbar spine; Spondylosis of lumbar region without myelopathy or radiculopathy; Arthritis of lumbar spine; Generalized anxiety disorder 09/27/2024 Telephone [facility] [address] [place] [address] Mustapha James MD OVERNIGHT STUDY 09/26/2024 Telephone [facility] [address] [place] [address] Mustapha James MD Advice Only from Last 3 Months Immunizations Immunization Administration [...] PM EDT Office Visit [facility] [address] [place] [address] Mustapha James MD [address] [place] [address] 01/18/2025 8:00 AM EDT Appointment [address] [place] [address] 01/18/2025 9:00 AM EDT Appointment [facility] [address] [facility] [place] [phone] 01/18/2025 11:00 AM EDT Office Visit [facility] [address] [place] [address] Chirag Mckee MD [address] [place] [address] Health Maintenance Due Date Last Done Comments [...] - LABS 11/05/2024 SCANNED - LABS 11/05/2024 POC ALBUMIN/CREATININE RATIO Routine 06/08/2024 1:03 PM [...] no dictation required. us Chirag Mckee MD [facility] CT ORDERABLES Final Resul t * IMAGING SCANNED (11/29/2024) Only the most recent of2 resultswithin the time period is included. Anatomical Region Laterality Modality Radiographic Chery ging us Mustapha James MD [facility] DIAGNOSTIC IMAGING O RDERABLES Final Result * LABS SCANNED (11/29/2024) Only the most recent of17 resultswithin the time period is included. us Mustapha James MD LAB BLOOD ORDERABLES Fin al Result * (ABNORMAL) Albumin/Creatinine Ratio Urine (06/08/2024 1:03 [...] MD 02/15/2024 10:36 PM EDT Workstation ID: [id number] Narrative 02/15/2024 10:[address] CHEST [...] MD 02/15/2024 10:36 PM EDT Workstation ID: [id number] Derik Conn APRN IMG CT ORDERABLES Final [...] AM EST Performed at: 01 - [facility] [address] [facility], [place], [place] [id number] Irrigation Equipment Mechanic: Jason Bullock PhD, Phone: [phone] Mustapha James MD LAB BLOOD ORDERABLES Fin al Result [facility] [address] [place] [address], [facility] [address] [place] [address], from Last 3 Months or Most Recently Relevant to Health Maintenance [place] [address] FORMERLY [facility] MEDICARE ADVANTAGE PPO Advance Directives Documents on File Type Date Recorded 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
--- OUTSIDE RECORDS SUMMARY | 2024-12-18 12:47 | XMS_ITS | Encounter Summary ---
Author Organization [facility] Address [address] [id number] Care Team Providers Care Marble Polisher Hand Name Role Phone Mustapha James MD Primary Care Provider [phone] Miguel Labm MD Unavailable [phone] Encounter Details Date Type Department Care Team (Late st Contact Info) Description 11/02/2024 Telephone [facility] [address] [phone] [place] [address] Social History Tobacco Use Types Packs/Day Years [...] PM EDT Appointment Cardiac Imaging [address] [place] [address] 12/06/2025 1:30 PM EDT Office Visit [facility] [address] [facility] [place] [address] Miguel Lamb MD [address] [place] [address] documented as of this encounter [...] documented as of this encounter Care Teams Marble Polisher Hand Relationship Specialty Start Date End Date Mustapha James MD [address] [place] [address] PCP - General 09/05/20 Miguel Lamb MD [address] [place] [address] Referring Physician Interventional Cardiology 08/16/24 documented as of this encounter
--- OUTSIDE RECORDS SUMMARY | 2024-12-18 12:47 | XMS_ITS | Encounter Summary ---
Author Organization [employer] ([place], [place], [place], [place]) Address [address] [place] [address] Care Team Providers Care Armature Tester Name Role Phone Unavailable Primary Care Provider Unavailabl e Encounter Details Date Type Department Care Team (Late st Contact Info) Description 03/14/2019 Transcribed Document [facility] Family Medicine Count includes the [facility] [place] [address] ProviderRegina MD Count includes the [facility] [place] [address] Social History Tobacco Use Types [...] - Regina ProviderMD - 03/14/2019 12:37 PM BELT CUTTER [facility] Main OR IntraOp Summary Primary Physician: TONY PEÑA MD-SUR Finalized Date/Time: 03/15/19 11:29:27 Pt. Name: JODI GTZ SRIRAM Reynolds/Sex: 1955 Female Med Rec #: [id number] Physician: TONY PEÑA MD-SUR Financial #: [id number] Pt. Type: O Room/Bed: Admit/Disch: 03/14/19 09:48:00 - 03/14/19 17:30:00 Institution: [facility] IntraOp Case Attendance Entry 1 Entry 2 Entry 3 Case Attendee TONY PEÑA MD-SUR CALDWELL, JOSEPH A, CRNA BOWEN, JON B, MD-ANS Role Performed Surgeon/Proceduralist, AREA INTELLIGENCE TECHNICIAN/Nurse Nicker And Breaker Anesthesiologist First Time In 03/14/19 12:18:00 03/14/19 [...] KIERSTEN KHALIL, Gia Liu, Coco Hagan, Cardiovascular Certified Substance Abuse Counselor Role Performed Internal Medicine Nurse, First Internal Medicine Nurse, Second Certified Substance Abuse Counselor Time In 03/14/19 12:18:00 03/14/19 12:18:00 03/14/19 12:18:00 Time Out 03/14/19 14:07:00 03/14/19 14:07:00 03/14/19 14:07:00 Procedure Aortogram Abdominal Aortogram Abdominal Aortogram Abdominal with Runoff(Left) with Runoff(Left) with Runoff(Left) Other Attendee Superficial Wound Closed By: Last Modified By: Gia Armendariz RN Duncan, Richelle, Gia Liu RN 03/14/19 14:07:56 03/14/19 14:07:56 03/14/19 14:07:56 Entry 7 Case Attendee Mayra Castrejon [employer] Role Performed Certified Substance Abuse Counselor Time In 03/14/19 12:18:00 Time Out 03/14/19 14:07:00 Procedure Aortogram Abdominal with Runoff(Left) Other Attendee Superficial Wound Closed By: Last Modified By: Gia Armendariz RN 03/14/19 14:07:56 [facility] IntraOp Case Attendance Audit 03/14/19 14:07:56 Equities Analyst: [id number] Modifier: [id number] 1 <+> Time Out 1 <*> Procedure [...] Procedure Aortogram Abdominal with Runoff(Left) 03/14/19 13:11:30 Equities Analyst: [id number] Modifier: [id number] 1 <*> Procedure Aortogram Abdominal with Runoff(Left) 2 <*> Procedure Aortogram Abdominal with Runoff(Left) 3 <*> Procedure Aortogram Abdominal with Runoff(Left) 4 <*> Procedure Aortogram Abdominal with Runoff(Left) 5 <*> Procedure Aortogram Abdominal with Runoff(Left) 6 <+> Time In 6 <*> Procedure Aortogram Abdominal with Runoff(Left) 7 <+> Time In 7 <*> Procedure Aortogram Abdominal with Runoff(Left) 03/14/19 12:47:49 Equities Analyst: [id number] Modifier: [id number] <+> 6 Case Attendee <+> 6 Role Performed <+> 6 Procedure <+> 7 Case Attendee <+> 7 Role Performed <+> 7 Procedure 03/14/19 12:46:19 Equities Analyst: [id number] Modifier: [id number] <+> 1 Procedure 2 <*> Procedure Aortogram Abdominal with Runoff(Left) 3 <+> Time In 3 <*> Procedure Aortogram Abdominal with Runoff(Left) 4 <+> Time In 4 <*> Procedure Aortogram Abdominal with Runoff(Left) 5 <+> Time In 5 <*> Procedure Aortogram Abdominal with Runoff(Left) 03/14/19 12:45:34 Equities Analyst: [id number] Modifier: [id number] 2 <+> Time In 2 <*> Procedure Aortogram Abdominal with Runoff(Left) <+> 3 Case Attendee <+> 3 Role Performed <+> 3 Procedure <+> 4 Case Attendee <+> 4 Role Performed <+> 4 Procedure <+> 5 Case Attendee <+> 5 Role Performed <+> 5 Procedure [facility] IntraOp Case Times Entry 1 Patient In Room Time 03/14/19 12:18:00 Out Room Time 03/14/19 14:07:00 Anesthesia Start Time 03/14/19 12:18:00 Stop Time 03/14/19 14:07:00 Anesthesia Ready 03/14/19 12:18:00 Surgery / Procedure Times Start Time 03/14/19 12:37:00 Stop Time 03/14/19 14:01:00 Last Modified By: Gia Armendariz RN 03/14/19 12:39:43 [facility] IntraOp Case Times Audit 03/14/19 14:07:55 Equities Analyst: [id number] Modifier: [id number] <+> 1 Out Room Time <+> 1 Stop Time <+> 1 Stop Time [facility] IntraOp Communication Entry 1 Entry 2 Communication To Family/Significant other Family/Significant other Comment START UPDATE Communication By Gia Armendariz RN Duncan, Richelle, RN Date and Time 03/14/19 12:45:00 03/14/19 13:49:00 Last Modified By: Gia Armendariz RN Duncan, Richelle, RN 03/14/19 12:48:01 03/14/19 13:50:06 [facility] IntraOp Communication Audit 03/14/19 13:50:06 Equities Analyst: [id number] Modifier: [id number] <+> 2 Communication By <+> 2 Date and Time <+> 2 Communication To <+> 2 Comment [facility] IntraOp Departure from OR Entry 1 Integumentary Assessment Integumentary WDL Assessment WDL Transfer/Handoff Transfer to Other Handoff Method Phone call Post-op Transport [facility] Transport JACKIE BLANTON MD-ANS, Accompanied by EVERETT FREED CRNA, RESULTAY, JOSEFINA, RN Transfer/Handoff PT TRANSPORTED TO [facility], PT STABLE Last Modified By: Gia Armendariz RN 03/14/19 12:48:40 [facility] IntraOp Dressing and Packing Entry 1 Type Dressing Location OPSITE Wound Dressing Item 4x4's Applied By TONY PEÑA MD-JESUS Other Comments COVADERM Last Modified By: Gia Armendariz RN 03/14/19 12:48:56 [facility] IntraOp Fire Risk Assessment [...] Modified By: Gia Armendariz RN 03/14/19 12:49:12 [facility] IntraOp General Case Fuel Storage Technician 1 Case Information OR OR 20 [facility] Case Level 1 Room Verified Yes Wound Class I - Clean Specialty SN General Anesthesia Type MAC ASA Class 3 Diagnosis Preop Diagnosis BILATERAL CLAUDICATION Postop Same As Preop Yes Postop Diagnosis BILATERAL CLAUDICATION Last Modified By: Gia Armendariz RN 03/14/19 13:06:23 [facility] IntraOp General Case Data Audit 03/14/19 13:07:04 Equities Analyst: [id number] Modifier: [id number] 1 <*> Preop Diagnosis RIGHT ILIAC ARTERY OCCLUSION 1 <*> Postop Diagnosis RIGHT ILIAC ARTERY OCCLUSION 03/14/19 13:06:23 Equities Analyst: [id number] Modifier: [id number] <+> 1 ASA Class <+> 1 Anesthesia Type <+> 1 Postop Same As Preop <+> 1 Preop Diagnosis <+> 1 Postop Diagnosis <+> 1 Room Verified [facility] IntraOp Implant Log Entry 1 Entry 2 Type Implant (Synthetic) Implant (Synthetic) Implant Log Implant Type Other Tissue Implant Type Implant DEVICE MYNX CHIP APPLYING MACHINE TENDER 6F/ 7F STENT VASC LS 5F 135cm Identification [id number] Description Implant Quantity 1 1 Implant Site LEFT GROIN LEFT SFA Implant Identification Model Number Implant Identification Serial Number Implant [id number] Identification Lot Number Implant Access Closure Cr Bard:Peripheral Vasc Identification Evaluation Manager Name: Implant [id number] Identification Catalog Number Implant Size Implant Has an Yes Yes Expiration Date Implant Expiration 01/22/21 08/18/20 Date Wasted Radioactive Material Time Implanted Tissue Implant Continue for Tissue Implant Documentation Tissue Identification Number Graft Prep Per Evaluation Manager Instructions: Tissue Preparation Method: Reconstitution Solution: Reconstitution Solution Lot Number Reconstitution Solution Expiration Date: Thawing Solution Thawing Solution Lot Number Thawing Solution Expiration Date Preparation Materials, Other Preparation Materials, Other Lot Number Preparation Materials, Other Expiration Date Tissue Prepared/Processed By Evaluation Manager Paperwork Completed Implant Type Comment Last Modified By: Gia Armendariz RN Duncan, Richelle, RN 03/14/19 13:46:31 03/14/19 13:48:58 [facility] IntraOp Implant Log Audit 03/14/19 13:48:58 Equities Analyst: [id number] Modifier: [id number] <+> 2 Implant Identification Description <+> 2 Implant Identification Lot Number <+> 2 Implant Identification Evaluation Manager Name: <+> 2 Implant Expiration Date <+> 2 Implant Site <+> 2 Implant Quantity <+> 2 Implant Identification Catalog Number <+> 2 Implant Has an Expiration Date <+> 2 Type [facility] IntraOp Intraoperative Assessment Entry [...] Modified By: Gia Armendariz RN 03/14/19 13:07:39 [facility] IntraOp Intraoperative Equipment Entry 1 Equipment Intraop Monitoring Electrocardiogram Three lead placement (ECG) Electrode Placement Blood Pressure Non-Invasive BP Device Source Blood Pressure Arm, right upper Location Pulse Oximeter Hand, left Probe Site Antiembolic Devices Scopes Photo/Video Documentation Last Modified By: Gia Armendariz RN 03/14/19 13:08:03 [facility] IntraOp Medication Admin Entry [...] Duncan, Richelle, RN 03/14/19 13:10:57 03/14/19 13:10:57 [facility] IntraOp Medication Admin Audit 03/14/19 13:58:22 Equities Analyst: [id number] Modifier: [id number] 1 <*> Dose 50 [facility] IntraOp Patient Positioning Entry [...] Modified By: Gia Armendariz RN 03/14/19 13:11:17 [facility] IntraOp Sign In Entry [...] Modified By: Gia Armendariz RN 03/14/19 13:11:29 [facility] IntraOp Sign Out Entry [...] Modified By: Gia Armendariz RN 03/14/19 13:11:49 [facility] IntraOp Sign Out Audit 03/14/19 14:01:07 Equities Analyst: [id number] Modifier: [id number] <+> 1 Sign Out Comment <+> 1 RN Sign Out Signature Date/Time [facility] IntraOp Skin Prep Entry 1 Procedure Aortogram Abdominal with Runoff(Left) Prescribed N/A Pre-Surgical Prep Completed Prep Area LEFT ARM AND HAND TO AXILLA, BILATERAL GROINS, LEFT FOOT Intraop Prep Integumentary WDL Assessment WDL Prep Agents Chloraprep Prep by Gia Armendariz RN Hair Removal Methods No hair removal performed Last Modified By: Gia Armendariz RN 03/14/19 13:12:51 [facility] IntraOp Skin Prep Audit 03/14/19 13:29:16 Equities Analyst: [id number] Modifier: [id number] 1 <*> Prep Area LEFT ARM AND HAND TO AXILLA, BILATERAL GROINS 1 <*> Procedure Aortogram Abdominal with Runoff(Left) [facility] IntraOp Surgical Procedures Entry [...] LEFT SUPERFICIAL FEMORAL ARTERY ANGIOPLASTY AND STENTING [facility] Intra Surgical Procedures Audit 03/14/19 14:07:58 Equities Analyst: [id number] Modifier: [id number] 1 <*> Stop 03/14/19 13:37:02 Equities Analyst: [id number] Modifier: [id number] 1 <*> Procedure Aortogram Abdominal with Runoff [...] L ACCESS W/ ULTRASOUND ACCESS 03/14/19 13:28:04 Equities Analyst: [id number] Modifier: [id number] 1 <*> Procedure Aortogram Abdominal with Runoff 1 <*> Additional Procedure Description LEFT RADIAL ACCESS UNDER ULTRASOUND GUIDANCE WITH LEFT UPPER EXTREMITY ANGIOGRAM, CATHETER PLACEMENT WITHIN AORTA; LEFT ACCESS UNDER ULTRASOUND GUIDANCE WITH [facility] IntraOP Time Out Entry [...] Modified By: Gia Armendariz, RN 03/14/19 13:16:01 [facility] IntraOp X-Ray and Images Entry 1 X-Ray/Imaging Type Fluoroscopy Fluoroscopy Type Fixed Site OPSITE Director Of Valuation Name Coco Pfeiffer, Cardiovascular Certified Substance Abuse Counselor Protective Devices Yes Used Exposure Time 6.6 MIN Last Modified By: Gia Armendariz RN 03/14/19 13:54:17 [facility] IntraOp X-Ray and Images Audit 03/14/19 13:54:17 Equities Analyst: [id number] Modifier: [id number] <+> 1 Exposure Time Case Comments <None> [...]
--- OUTSIDE RECORDS SUMMARY | 2024-12-18 12:47 | XMS_ITS | Encounter Summary ---
Author Organization [facility] Address [address] [place] [address] Care Team Providers Care Echo Technologist Name Role Phone Mustapha James MD Primary Care Provider + Reason for Visit * Reason Onset Date Comments OVERNIGHT STUDY 09/27/2024 Encounter Details Date Type Department Care Team (Late st Contact Info) Description 09/27/[address] [facility] [address] [place] [address] Mustapha James MD [address] [place] [address] OVERNIGHT STUDY Social History Tobacco [...] [facility] [address] [facility] [place] [address] Mustapha James MD [address] [facility] [place] [address] 01/18/2025 8:00 AM EDT Appointment [address] [place] [phone] 01/18/2025 9:00 AM EDT Appointment [address] [place] [address] 01/18/2025 11:00 AM EDT Office Visit [facility] [address] [place] [address] Chirag Mckee MD [address] [place] [address] documented as of this encounter Visit Diagnoses Not on filedocumented in this encounter Additional Health Concerns Assessment Noted Time PHQ-2 Depression Total Score: 1 10/24/19 24 2:19 PM EDT documented as of this encounter Care Teams Echo Technologist Relationship Specialty Start Date End Date Mustapha James MD [address] [facility] [place] [address] PCP - General Family Medicine 01/02/24 documented as of this encounter
--- OUTSIDE RECORDS SUMMARY | 2024-12-18 12:47 | XMS_ITS | Encounter Summary ---
Author Organization [employer] ([place], [place], [place], [place]) Address [address] [place] [address] Care Team Providers Care Manager Housekeeping Name Role Phone Unavailable Primary Care Provider Unavailabl e Encounter Details Date Type Department Care Team (Late st Contact Info) Description 02/12/2019 Transcribed Document [facility] Family Medicine [place] [address] ProviderRegina MD [address] [place] [address] Social History Tobacco Use Types Packs/Day [...] 02/12/2019 15:39 EDT Electronically signed by Mickey Cox [employer] E Learning Coordinator Cerner at 08/13/2022 11:19 AM CDT documented in this encounter Plan of Treatment Not on file documented as of this encounter Visit Diagnoses Not on filedocumented in this encounter
--- OUTSIDE RECORDS SUMMARY | 2024-12-18 12:47 | XMS_ITS | Encounter Summary ---
Author Organization [facility] Address [address] [place] [address] Care Team Providers Care Audio/Video Engineer Name Role Phone Mustapha James MD Primary [...] Description 12/27/2024 2:00 PM EDT Office Visit [facility] [address] [place] [address] Mustapha James MD [address] [place] [address] 01/18/2025 8:00 AM EDT Appointment [facility] [address] [place] [address] 01/18/2025 9:00 AM EDT Appointment [facility] [address] [place] [address] 01/18/2025 11:00 AM EDT Office [facility] [address] [place] [address] Chirag Mckee MD [address] [place] [address] documented as of this encounter Visit Diagnoses Not on filedocumented in this encounter Additional Health Concerns Assessment Noted Time PHQ-2 Depression Total Score: 1 10/24/19 2:19 PM EDT documented as of this encounter Care Teams Audio/Video Engineer Relationship Specialty Start Date End Date Mustapha James MD [address] [place] [address] PCP - General Family Medicine 01/02/24 documented as of this encounter
--- OUTSIDE RECORDS SUMMARY | 2024-12-18 12:47 | XMS_ITS | Encounter Summary ---
Author Organization [facility] Address [address] [place] [address] Care Team Providers Care Blueprint Assembler Name Role Phone Mustapha James MD Primary Care Provider + Reason for Visit * Reason Comments Med Refill Encounter Details Date Type Department Care Team (Late st Contact Info) Description 11/02/[address] [facility] [address] [place] [address] Mustapha James MD [address] [place] [address] Failed back syndrome of lumbar [...] Description 12/27/2024 2:00 PM EDT Office Visit [facility] [address] [place] [address] Mustapha James MD [address] [place] [address] 01/18/2025 8:00 AM EDT Appointment [facility] [address] [place] [address] [place] [address] 01/18/2025 9:00 AM EDT Appointment [facility] PET [address] [place] [address] [place] [address] 01/18/2025 11:00 AM EDT Office Visit [facility] [address] [place] [address] Chirag Mckee MD [address] [place] [address] documented as of this encounter Visit Diagnoses Diagnosis 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
--- OUTSIDE RECORDS SUMMARY | 2024-12-18 12:47 | XMS_ITS | Clinical Summary ---
Author Organization [facility] Address [address] [place] [address] Care Team Providers Care Supervisor Concrete Pipe Plant Name Role Phone Mustapha James MD Primary Care Provider [phone] Miguel Lamb MD Unavailable [phone] Allergies Active Allergy Reactions Criticality Noted [...] by mouth daily. 0 Active HYDROcodone-joanne taminophen ([place]) 7.5-325 MG tablet Take 1 tablet by [...] Description 11/30/2024 11:30 AM EDT Office Visit [facility] [address] [place] [address] Miguel Lamb MD Nonrheumatic aortic valve stenosis (Primary Dx); Coronary artery disease involving [place] coronary artery of [place] heart without angina pectoris; HFrEF (heart failure with reduced ejection fraction) ([facility]) 11/30/2024 Travel 11/02/2024 Telephone [facility] [address] [place] [address] Ariana Li 09/18/2024 8:30 AM EDT - 09/18/2024 10:30 AM EDT Surgery Cardiac [employer] [address] [place] [address] Miguel Lamb MD Percutaneous coronary intervention [94994 (CPT )] 09/18/2024 7:17 AM EDT - 09/18/2024 3:19 PM EDT Hospital Encounter Cardiac [employer] [address] [place] [address] Miguel Lamb MD S/P coronary artery stent [...] PM EDT Appointment Cardiac Imaging [address] [place] [address] 12/06/2025 1:30 PM EDT Office Visit [facility] [address] [facility] [address] [place] [address] Miguel Lamb MD [address] [place] [address] Health Maintenance Due Date Last Done Comments [...] 2003 UKY-Diabetes: Hemoglobin A1C 12/01/202212/2022, 07/07/2019, 07/04/2019 [id number] Vaccine ( season) 2023 02/24/2022, 04/01/2021, 08/06/2020, [...] this topic Medical Devices Implanted Type Area Advertising Sales Assistant Device Identifier Shelf Expiration Date Model / Serial / Lot Stent [place] Rx 4.5mm X 12mm - [id number] Implanted:Qty: 1 on 08/30/2024 by Miguel Lamb MD at [id number] 03/21/2027 [id number] UX / / [id number] Stent Coronary [place] Manjit Rx 3.00mm X 18mm - [id number] Implanted:Qty: 1 on 08/30/2024 by Miguel Lamb MD at [id number] 06/14/2027 [id number] UX / / [id number] Stent Coronary [place] Manjit Rx 2.75mm X 30mm - [id number] Implanted:Qty: 1 on 09/18/2024 by Miguel Lamb MD at [id number] 03/25/2027 [id number] UX / / [id number] Stent Coronary [place] Manjit Rx 3.00mm X 26mm - [id number] Implanted:Qty: 1 on 09/18/2024 by Miguel Lamb MD at [id number] 06/21/2027 [id number] UX / / [id number] Stent Coronary [place] Rx 3.50mm X 12mm - [id number] Implanted:Qty: 1 on 09/18/2024 by Miguel Lamb MD at [id number] 03/04/2027 [id number] UX / / [id number] Procedures Procedure Name Priority Date/Time Associated Diagnosis [...] of an overlapping 3.5 x 12 mm [place] drug-eluting stent. Ostium flared to 4.0. 3. Serial 70% diffuse lesions of the mid-distal RCA s/p successful PCI with placement of overlapping 3.0 x 26 mm and 2.75 x 30 mm [place] drug-eluting stents (proximal-distal). Recommendations: 1. Post-PCI EKG. [...] After confirming therapeutic activated clotting time, a [place] wire was advanced beyond the lesion and into the distal RCA. We advanced an Emerge RX 2.5 x 20 mm balloon into the mid-dstial RCA lesion and inflated to 12 rachael. The balloon was withdrawn slightly and serial inflations performed using the same technique. We then advanced a 2.75 mm x 30 mm [place] drug eluting stent into the lesion and deployed at 12 rachael. We then placed and overlapping 3.0 x 26 mm [place] Manjit drug-eluting stent proximal to the aforementioend stent, inflated to 12 rachael. Post-dilation of the proximal-mid stent was then carried out using a 3.0 NC balloon. We then closely evaluated the ostium which appeared to have disease and appeared to be uncovered. We then advanced a 3.5 x 12 mm [place] Manjit drug- eluting stent in the proximal [...] The patient was transferred back to the geophysical laboratory director holding area in good condition. Coronary Findings [...] of2 resultswithin the time period is included. [facility] Signature ACT (Low Range) 352 65 - 400 seconds 09/26/2024 9:35 AM EDT [facility] Flight Information Expediter ID Mary Marin 09/26/2024 9:35 AM EDT HEALTHCARE LAB ACT Device ID [id number] 09/26/2024 9:35 AM EDT HEALTHCARE LAB Comment 09/26/2024 9:35 AM EDT [facility] Comment: ACT performed by [...] UNSOLICITED RESULTS Final Result Performing Organization Address City/[facility]/ZIP Co de Phone Number HEALTHCARE LAB [address] LAB [address] [place] [address] * (ABNORMAL) POCT creatinine (09/18/2024 8:24 AM EDT) [facility] Creatinine, Point of Care 1.2(H) 0.6 - 1.1 mg/dL 09/18/2024 8:28 AM EDT HEALTHCARE LAB POCT eGFR 48 mL/min/1. 73m*2 09/18/2024 8:28 AM EDT [facility] Flight Information Expediter ID Rosangela Gallegos 09/18/2024 8:28 AM EDT HEALTHCARE LAB Device ID [id number] 09/18/2024 8:28 AM EDT HEALTHCARE LAB Comment 09/18/2024 8:28 AM EDT [facility] Comment:Testing performed on i-STAT at the point of care. Reported eGFRcr in mL/min/1.73m2 is based the CKD-EPI 2020 equation that does not use a race coefficient. Blood Venous blood specimen / Unknown 09/18/2024 8:24 AM EDT 09/18/2024 8:28 AM EDT us Miguel Lamb MD LAB POINT OF CARE TE ST DOCKED DEVICE UNSOLICITED RESULTS Final Result Performing Organization Address City/[facility] [[email or web address]] Co de Phone Number HEALTHCARE LAB [address] LAB [address] [place] [address] * (ABNORMAL) CBC and differential (09/18/2024 8:20 AM EDT) WBC Count 8.79 3.70 - 10.30 10*3/uL LAB HEMATOLOGY METHOD 09/18/2024 8:38 AM EDT [facility] RBC Count 2.65(L) 3.90 - 5.20 10*6/uL LAB HEMATOLOGY METHOD 09/18/2024 8:38 AM EDT [facility] HGB 7.2(L) 11.2 - 15.7 g/dL LAB HEMATOLOGY METHOD 09/18/2024 8:38 AM EDT [facility] HCT 24.6(L) 34.0 - 45.0 % LAB HEMATOLOGY METHOD 09/18/2024 8:38 AM EDT [facility] Platelet Count 358 155 - 369 10*3/uL LAB HEMATOLOGY METHOD 09/18/2024 8:38 AM EDT [facility] MCV 93 79 - 98 fL LAB HEMATOLOGY METHOD 09/18/2024 8:38 AM EDT [facility] MCH 27.2 26.0 - 32.0 pg LAB HEMATOLOGY METHOD 09/18/2024 8:38 AM EDT [facility] MCHC 29.3(L) 30.7 - 35.5 g/dL LAB HEMATOLOGY METHOD 09/18/2024 8:38 AM EDT [facility] RDW 16.0(H) 11.5 - 14.5 % LAB HEMATOLOGY METHOD 09/18/2024 8:38 AM EDT [facility] MPV 10.4 8.8 - 12.5 fL LAB HEMATOLOGY METHOD 09/18/2024 8:38 AM EDT [facility] nRBC 0.0 <=0.0 per 100 WBCs LAB HEMATOLOGY METHOD 09/18/2024 8:38 AM EDT [facility] Differential Type Automated LAB HEMATOLOGY METHOD 09/18/2024 8:38 AM EDT [facility] Neutrophils % 90 % LAB HEMATOLOGY METHOD 09/18/2024 8:38 AM EDT [facility] Lymphocytes % 6 % LAB HEMATOLOGY METHOD 09/18/2024 8:38 AM EDT [facility] Monocytes % 2 % LAB HEMATOLOGY METHOD 09/18/2024 8:38 AM EDT [facility] Eosinophils % 1 % LAB HEMATOLOGY METHOD 09/18/2024 8:38 AM EDT [facility] Basophils % 0 % LAB HEMATOLOGY METHOD 09/18/2024 8:38 AM EDT [facility] Immature Granulocytes % 1 % LAB HEMATOLOGY METHOD 09/18/2024 8:38 AM EDT [facility] Neutrophils Absolute 7.96(H) 1.60 - 6.10 10*3/uL LAB HEMATOLOGY METHOD 09/18/2024 8:38 AM EDT [facility] Lymphocytes Absolute 0.56(L) 1.20 - 3.90 10*3/uL LAB HEMATOLOGY METHOD 09/18/2024 8:38 AM EDT [facility] Monocytes Absolute 0.13(L) 0.30 - 0.90 10*3/uL LAB HEMATOLOGY METHOD 09/18/2024 8:38 AM EDT [facility] Eosinophils Absolute 0.07 0.00 - 0.50 10*3/uL LAB HEMATOLOGY METHOD 09/18/2024 8:38 AM EDT [facility] Basophils Absolute 0.02 0.00 - 0.10 10*3/uL LAB HEMATOLOGY METHOD 09/18/2024 8:38 AM EDT [facility] Immature Granulocytes Absolute 0.05 0.00 - 0.06 10*3/uL LAB HEMATOLOGY METHOD 09/18/2024 8:38 AM EDT [facility] Blood Venous blood specimen / Unknown Venipuncture / Unknown 09/18/2024 8:20 AM EDT 09/18/2024 8:26 AM EDT Narrative [facility] - 09/18/2024 8:38 AM EDT Therapeutic decision making should be based on absolute values, rather than percentages. us Miguel Lamb MD LAB BLOOD ORDERABLES Final Resu lt [facility] [address] [place] [address] * (ABNORMAL) Basic metabolic panel (09/18/2024 8:20 AM EDT) Glucose, Plasma 157(H) 74 - 99 mg/dL 09/18/2024 8:58 AM EDT [facility] BUN, Plasma 17 8 - 23 mg/dL 09/18/2024 8:58 AM EDT [facility] Creatinine, Plasma 1.05 0.60 - 1.10 mg/dL 09/18/2024 8:58 AM EDT [facility] BUN/Creatinine Ratio 16 09/18/2024 8:58 AM EDT [facility] Sodium, Plasma 138 136 - 145 mmol/L 09/18/2024 8:58 AM EDT [facility] Potassium, Plasma 4.5 3.6 - 4.9 mmol/L 09/18/2024 8:58 AM EDT [facility] Chloride, Plasma 100 97 - 107 mmol/L 09/18/2024 8:58 AM EDT [facility] CO2, Plasma 23 22 - 29 mmol/L 09/18/2024 8:58 AM EDT [facility] Anion Gap 15 6 - 16 mmol/L 09/18/2024 8:58 AM EDT [facility] Total Calcium, Plasma 9.4 8.9 - 10.2 mg/dL 09/18/2024 8:58 AM EDT [facility] eGFRcr 56.9 mL/min/1.7 3m*2 09/18/2024 8:58 AM EDT [facility] Comment:Reported eGFRcr in m L/min/1.73m2 is based the CKD-EPI 2020 equation that does not use a race coefficient. Blood Venous blood specimen / Unknown Venipuncture / Unknown 09/18/2024 8:20 AM EDT 09/18/2024 8:27 AM EDT Miguel Lamb MD LAB BLOOD ORDERABLES Final Resu lt [facility] [address] [place] [address] * (ABNORMAL) Hemoglobin A1c (07/07/2019 2:34 AM [...] <6.0% Children and Adolescents <7.5% . Source: [place] [employer]. Standards of medical care in diabetes, 2017. Diabetes Care.2017:40 (suppl 1):S1-S135. . HbA1c assay performed by an ion-exchange chromatography method that is certified traceable to the DCCT. 07/07/2019 2:34 AM EDT 07/07/2019 2:46 AM EDT us Historical Provider LAB BLOOD ORDERABLES Final R esult SUNQUEST from Last 3 Months or Most Recently Relevant to Health Maintenance [place] [address] [place] [address] [employer] MEDICARE Advance Directives * Full Code [...] updated to appropriate status: Yes Care Teams Supervisor Concrete Pipe Plant Relationship Specialty Start Date End Date Mustapha James MD [address] [place] [address] PCP - General 09/05/20 Miguel Lamb MD [address] [place] [address] Referring Physician Interventional Cardiology 08/16/24
--- OUTSIDE RECORDS SUMMARY | 2024-12-18 12:47 | XMS_ITS | Encounter Summary ---
Author Organization [facility] Address [address] [place] [address] Care Team Providers Care Sole Buffer Name Role Phone Mustapha James MD Primary Care Provider + Reason for Visit * Reason Onset Date Comments Med Refill 10/24/2024 Encounter Details Date Type Department Care Team (Late st Contact Info) Description 10/24/2024 Refill [facility] [address] [place] [address] Mustapha James MD [address] [place] [address] Social History Tobacco Use Types [...] a month already. She is to call backshoe person to the end of the Rx. She voiced understanding. * Telephone Encounter - Mary Rader RegSched Rep - 10/24/2024 3:44 PM EDT PATIENT CALLED TO RELAY THAT HER VP AD SALES [facility]ACOBSONS PCP TO SEND IN REFILLS FOR TORSEMIDE * Telephone Encounter - Leandra Dotson RegSched Rep - 10/24/2024 3:34 PM EDT A user error has taken place: encounter opened in error, closed for administrative reasons. documented in this encounter Plan of Treatment Upcoming Encounters Date Type Department Care Team (Late st Contact Info) Description 12/27/2024 2:00 PM EDT Office Visit [facility] [address] [place] [address] Mustapha James MD [address] [place] [address] 01/18/2025 8:00 AM EDT Appointment [address] [place] [address] 01/18/2025 9:00 AM EDT Appointment [facility] [address] [facility] [place] [address] 01/18/2025 11:00 AM EDT Office Visit [facility] [address] [place] [address] Chirag Mckee MD [address] [place] [address] documented as of this encounter Visit Diagnoses Not on filedocumented in this encounter Additional Health Concerns Assessment Noted Time PHQ-2 Depression Total Score: 1 10/24/19 24 2:19 PM EDT documented as of this encounter Care Teams Sole Buffer Relationship Specialty Start Date End Date Mustapha James MD [address] [facility] [place] [address] PCP - General Family Medicine 01/02/24 documented as of this encounter
--- OUTSIDE RECORDS SUMMARY | 2024-12-18 12:47 | XMS_ITS | Encounter Summary ---
Author Organization [facility] ([place], [place], [place], [place]) Address [address] [place] [address] Care Team Providers Care Industrial Psychology Teacher Name Role Phone Unavailable Primary Care Provider Unavailabl e Encounter Details Date Type Department Care Team (Late st Contact Info) Description 02/12/2019 Transcribed Document [facility] Family Medicine [facility] [place] [address] ProviderRegina MD [address] [place] [address] Social History Tobacco Use Types Packs/Day [...] Henley MD - 02/12/2019 5:18 PM CDT [facility] [place] [address] THOMAS GTZ SRIRAM :1955 Visit Time:02/12/2019 Your Visit Summary Your Care Team Admitting Physician - TONY PEÑA MD-SUR Attending Physician - TONY PEÑA MD-SUR Primary Care Physician - JACKIE BABIN MD-FAM Referring Physician - JACKIE BABIN MD-FAM PHY, NOT LISTED Your Diagnosis Atherosclerosis of [place] arteries of extremities with intermittent claudication, unspecified extremity, Atherosclerosis of [place] arteries of extremities with intermittent claudication, unspecified [...] Appointment has been made with [facility]. Where: [address] [place], [place] [phone] Medications What How Much When Instructions Next Dose acetaminophen-hydrocodone ([place] 7.5 mg-325 mg oral tablet) 1 Tablet(s) [...] Document Reviewed: 05/14/2011 ExitCare?? Patient Information ??2013 Cards Off. Angiogram, Care After This sheet gives you [...] and water are not available, use hand director peoplesoft. ? Change your dressing as told by [...] contrast dye from your body. ??? Take ynoo-nvs-hsbjbiu and prescription medicines only as told by [...] 10/28/2005 Document Revised: 03/16/2017 Document Reviewed: 03/16/2017 [employer] Patient Education ?? 2019 [facility]. Moderate Conscious Sedation, Adult, Care After These [...] you are awake and alert. ??? Take miux-pag-fkoqnuo and prescription medicines only as told by [...] 01/30/2014 Document Revised: 09/13/2016 Document Reviewed: 07/31/2016 [employer] Patient Education ?? 2019 [facility]. Emergency Awareness and Preventative Care STROKE is [...] Assistance with quitting is available by contacting 0-143-HGFR-NOW. This is a free resource providing counseling, [...] was given the opportunity to ask questions. Patient/Advanced Manufacturing Associate Name: Patient/Advanced Manufacturing Associate Signature: Relationship to Patient: Clinician/Hospital Advanced Manufacturing Associate Signature: Date: Electronically signed by Mickey, [place] Conversion Supervising Fire Marshal Andrew at 08/13/2022 11:16 AM CDT documented in this encounter Plan of Treatment Not on file documented as of this encounter Visit Diagnoses Not on filedocumented in this encounter
--- OUTSIDE RECORDS SUMMARY | 2024-12-18 12:47 | XMS_ITS | Encounter Summary ---
Author Organization [employer] ([place], [place], [place], [place]) Address [address] [place] [address] Care Team Providers Care Credit Risk Modeler Name Role Phone Unavailable Primary Care Provider Unavailabl e Encounter Details Date Type Department Care Team (Late st Contact Info) Description 02/12/2019 Transcribed Document [facility] Family Medicine [facility] [place] [address] ProviderRegina MD [facility] [place] [address] Social History Tobacco Use Types [...] Regina ProviderMD - 02/12/2019 2:12 PM CDT [facility] Main OR IntraOp Summary Primary Physician: TONY PEÑA MD-SUR Finalized Date/Time: 02/13/19 11:43:16 Pt. Name: JODI GTZ SRIRAM Reynolds/Sex: 1955 Female Med Rec #: [id number] Physician: TONY PEÑA MD-SUR Financial #: [id number] Pt. Type: O Room/Bed: /11 Admit/Disch: 02/12/19 09:27:00 - 02/12/19 18:10:00 Institution: [facility] IntraOp Case Attendance Entry 1 Entry 2 Entry 3 Case Attendee TONY PEÑA MD-SUR Napier, Elizabeth A, RN Murphy, Whitney, [employer] Role Performed Surgeon/Proceduralist, Regional Production Manager, First Tattoo Designer First Time In 02/12/19 13:51:00 02/12/19 13:51:00 [...] CALDWELL, JOSEPH A, ROMARIO COWAN MD-ANS Cardiovascular Tattoo Designer Role Performed Tattoo Designer EMERGENCY ROOM ORDERLY/Nurse Necktie Stitcher Anesthesiologist of Record Time In 02/12/19 13:51:00 [...] Lexus Linda, Martha Zamora RN Role Performed Regional Production Manager, First Regional Production Manager, Second Time In 02/12/19 14:55:00 02/12/19 13:51:00 Time Out 02/12/19 15:09:00 02/12/19 15:09:00 Procedure Aortogram Abdominal Aortogram Abdominal with Runoff(Right), with Runoff(Right), Arterial Stent Arterial Stent Endovascular(Right) Endovascular(Right) Other Attendee Superficial Wound Closed By: Last Modified By: Lexus Linda, Rn Adilene Dhillon RN 02/12/19 15:50:49 02/13/19 07:01:08 [facility] IntraOp Case Attendance Audit 02/13/19 07:01:21 Dog Boarder: JONN Modifier: EANAPIER 8 <*> Procedure Aortogram Abdominal with Runoff(Right), Arterial Stent Endovascular(Right) 02/13/19 07:01:08 Dog Boarder: JONN Modifier: EANAPIER 1 <*> Procedure Aortogram [...] with Runoff(Right), Arterial Stent Endovascular(Right) 02/13/19 07:01:03 Dog Boarder: MEDARDO Modifier: EANAPIER 2 <*> Time Out 02/12/19 15:09:00 2 <*> Procedure Aortogram Abdominal with Runoff(Right), Arterial Stent Endovascular(Right) <+> 8 Case Attendee <+> 8 Role Performed <+> 8 Procedure 02/12/19 15:53:28 Dog Boarder: SUSANSLOAN Modifier: SUSANSLOAN 7 <*> Time In 02/12/19 15:55:00 7 <*> Procedure Aortogram Abdominal with Runoff(Right), Arterial Stent Endovascular(Right) 02/12/19 15:51:08 Dog Boarder: SUSANSLOAN Modifier: SUSANSLOAN 7 <*> Procedure Arterial Stent Endovascular(Right) 02/12/19 15:50:49 Dog Boarder: SUSANSLOAN Modifier: SUSANSLOAN 7 <*> Time Out 02/12/19 15:48:00 7 <*> Procedure Arterial Stent Endovascular(Right) 02/12/19 15:50:15 Dog Boarder: SUSANSLOAN Modifier: SUSANSLOAN 7 <+> Role Performed 7 <*> Procedure Arterial Stent Endovascular(Right) 02/12/19 15:49:22 Dog Boarder: EANAPIER Modifier: SUSANSLOAN 1 <+> Time Out [...] Time Out <+> 7 Procedure 02/12/19 14:50:28 Dog Boarder: EANAPIER Modifier: EANAPIER 1 <*> Procedure Aortogram Abdominal with Runoff(Right) 2 <*> Procedure Aortogram Abdominal with Runoff(Right) 3 <*> Procedure Aortogram Abdominal with Runoff(Right) 4 <*> Procedure Aortogram Abdominal with Runoff(Right) 5 <*> Procedure Aortogram Abdominal with Runoff(Right) 6 <*> Procedure Aortogram Abdominal with Runoff(Right) 02/12/19 14:30:54 Dog Boarder: EANAPIER Modifier: EANAPIER 1 <*> Procedure Aortogram Abdominal with Runoff(Right) 2 <*> Procedure Aortogram Abdominal with Runoff(Right) 3 <*> Procedure Aortogram Abdominal with Runoff(Right) 4 <*> Procedure Aortogram Abdominal with Runoff(Right) 5 <*> Procedure Aortogram Abdominal with Runoff(Right) 6 <+> Time In 6 <*> Procedure Aortogram Abdominal with Runoff(Right) 02/12/19 14:24:03 Dog Boarder: EANAPIER Modifier: EANAPIER 1 <*> Case Attendee TONY PEÑA MD-JESUS 1 <*> Role Performed Surgeon/Proceduralist, First 1 <*> Time In 02/12/19 13:51:00 1 <*> Procedure Aortogram Abdominal with Runoff(Right) 2 <*> Case Attendee Adilene Dhillon RN 2 <*> Role Performed Regional Production Manager, First 2 <*> Time In 02/12/19 13:51:00 2 <*> Procedure Aortogram Abdominal with Runoff(Right) 3 <*> Case Attendee Mayra Castrejon, [employer] 3 <*> Role Performed Tattoo Designer 3 <*> Time In 02/12/19 13:51:00 3 <*> Procedure Aortogram Abdominal with Runoff(Right) 4 <*> Case Attendee Coco Pfeiffer, Cardiovascular Tattoo Designer 4 <*> Role Performed Tattoo Designer 4 <*> Time In 02/12/19 13:51:00 4 <*> Procedure Aortogram Abdominal with Runoff(Right) 5 <*> Case Attendee EVERETT FREED EMERGENCY ROOM ORDERLY 5 <*> Role Performed EMERGENCY ROOM ORDERLY/Nurse Necktie Stitcher 5 <*> Time In 02/12/19 13:51:00 5 <*> Procedure Aortogram Abdominal with Runoff(Right) Entry 6 was deleted. Higher numbered entries shifted one position to fill the gap. <-> 6 Case Attendee MUSTAPHA DUTTON MD-ANS <-> 6 Role Performed Anesthesiologist of Record <-> 6 Time In 02/12/19 13:51:00 <-> 6 Procedure Aortogram Abdominal with Runoff(Right) 02/12/19 14:15:54 Dog Boarder: EANAPILUIS Modifier: EANAPIER <+> 1 Procedure 2 <+> Time In 2 <*> Procedure Aortogram Abdominal with Runoff(Right) 3 <+> Time In 3 <*> Procedure Aortogram Abdominal with Runoff(Right) 4 <+> Time In 4 <*> Procedure Aortogram Abdominal with Runoff(Right) 5 <+> Time In 5 <*> Procedure Aortogram Abdominal with Runoff(Right) 6 <+> Time In 6 <*> Procedure Aortogram Abdominal with Runoff(Right) 02/12/19 14:13:18 Dog Boarder: HARSHPILUIS Modifier: EANAPIER <+> 2 Case Attendee <+> 2 Role Performed <+> 2 Procedure <+> 3 Case Attendee <+> 3 Role Performed <+> 3 Procedure <+> 4 Case Attendee <+> 4 Role Performed <+> 4 Procedure <+> 5 Case Attendee <+> 5 Role Performed <+> 5 Procedure <+> 6 Case Attendee <+> 6 Role Performed <+> 6 Procedure [facility] IntraOp Case Times Entry 1 Patient In Room Time 02/12/19 13:51:00 Out Room Time 02/12/19 15:09:00 Anesthesia Start Time 02/12/19 13:51:00 Stop Time 02/12/19 15:09:00 Surgery / Procedure Times Start Time 02/12/19 14:12:00 Stop Time 02/12/19 15:00:00 Last Modified By: Lexus Linda Rn 02/12/19 15:21:58 [facility] IntraOp Case Times Audit 02/12/19 15:21:58 Dog Boarder: JONN Modifier: MEDARDO <+> 1 Out Room Time <+> 1 Stop Time <+> 1 Stop Time 02/12/19 14:11:48 Dog Boarder: HARSHPILUIS Modifier: EANAPIER <+> 1 Start Time [facility] IntraOp Communication Entry 1 Communication To Family/Significant other Comment START Date and Time 02/12/19 14:13:00 Last Modified By: Adilene Dhillon RN 02/12/19 14:12:21 [facility] IntraOp Departure from OR Entry 1 Integumentary Assessment Integumentary WDL Assessment WDL Transfer/Handoff Transfer to Other Handoff Method Phone call Post-op Transport Stret[facility] Patient Transport Lexus Linda Rn Accompanied by Transfer/Handoff PT TRANSPORTED TO [facility] Last Modified By: Lexus Linda Rn 02/12/19 15:48:30 General Comments: CALLED TO Arthur Gonzalez NURSE [facility] IntraOp Departure from OR Audit 02/12/19 15:49:29 Dog Boarder: MEDARDO Modifier: MEDARDO <+> 1 Patient Transport Accompanied by [facility] IntraOp Dressing and Packing Entry 1 Type Dressing Location OPSITE Wound Dressing Item 4x4's Applied By TONY PEÑA MD-JESUS Other Comments TEGADERM Last Modified By: Adilene Dhillon RN 02/12/19 14:09:39 [facility] IntraOp Fire Risk Assessment Entry 1 [...] Modified By: Adilene Dhillon RN 02/12/19 14:09:55 [facility] IntraOp Fire Risk Assessment Audit 02/12/19 14:13:31 Dog Boarder: HARSHPILUIS Modifier: EANAPIER <+> 1 Fire Risk Assessment Verified By <+> 1 Fire Risk Assessment Verified Date/Time 02/12/19 14:12:26 Dog Boarder: EASTEPHANIEPILUIS Modifier: EANAPIER 1 <-> Fire Risk Assessment Verified 02/12/19 14:10:00 Date/Time [facility] IntraOp General Case Electorate Officer 1 Case Information OR OR 20 [facility] Case Level 1 Room Verified Yes Wound Class I - Clean Specialty SN Endovascular Anesthesia Type MAC ASA Class 3 Diagnosis Preop Diagnosis BILATERAL LOWER EXTREMITY CLAUDICATION Postop Same As Preop No Postop Diagnosis SEE MD NOTE Last Modified By: Adilene Dhillon RN 02/12/19 14:13:47 [facility] IntraOp General Case Data Audit 02/12/19 14:20:37 Dog Boarder: JONN Modifier: EANAPIER <+> 1 Preop Diagnosis [facility] IntraOp Implant Log Entry 1 Entry 2 Entry 3 Type Implant (Synthetic) Implant (Synthetic) Implant (Synthetic) Implant Log Implant Type Other Tissue Implant Type Implant STENT LS EXP VASC CVR [id number] STENT LS EXP VASC CVR Identification [id number] Description Implant Quantity 1 1 1 Implant Site LEFT COMMON ILIAC ARTERY RIGHT COMMON ILIAC RIGHT COMON ILIAC ARTERY ARTERY Implant [id number] Identification Model Number Implant Identification Serial Number Implant [id number] Identification Lot Number Implant Cr Bard:Peripheral Vasc Cr Bard:Peripheral Vasc Identification Color Card Maker Name: Implant [id number] Identification Catalog Number Implant Size 7.9 X 24.6 MM 7.9 X 37 MM Implant Has an Yes Yes Yes Expiration Date Implant Expiration 07/23/21 11/22/21 11/22/21 Date Wasted Radioactive Material Time Implanted Tissue Implant Continue for Tissue Implant Documentation Tissue Identification Number Graft Prep Per Color Card Maker Instructions: Tissue Preparation Method: Reconstitution Solution: Reconstitution Solution Lot Number Reconstitution Solution Expiration Date: Thawing Solution Thawing Solution Lot Number Thawing Solution Expiration Date Preparation Materials, Other Preparation Materials, Other Lot Number Preparation Materials, Other Expiration Date Tissue Prepared/Processed By Color Card Maker Paperwork Completed Implant Type Comment Last Modified By: Adilene Dhillon RN Napier, Elizabeth A, RN Sloan, Susan, Rn 02/12/19 14:37:35 02/12/19 14:39:27 02/12/19 15:46:28 Entry 4 Entry 5 Entry 6 Type Implant (Synthetic) Implant (Synthetic) Implant (Synthetic) Implant Log Implant Type Other Tube(s) Other Tissue Implant Type Implant STNT BLLN ENDO VBX DEVICE MYNX TOY ASSEMBLER WOOD 6F/ 7F DEVICE MYNX TOY ASSEMBLER WOOD 6F/ 7F Identification [id number] Description Implant Quantity 1 1 1 Implant Site RIGHT EXTERNAL ILIAC RIGHT FEMORAL LEFT FEMORAL ARTERY ARTERY Implant [id number] Identification Model Number Implant [id number] Identification Serial Number Implant [id number] Identification Lot Number Implant [employer]:Med Prdt Access Closure Access Closure Identification Color Card Maker Name: Implant [id number] Identification Catalog Number Implant Size Implant Has an Yes Yes Yes Expiration Date Implant Expiration 07/29/21 01/22/21 01/22/21 Date Wasted Radioactive Material Time Implanted Tissue Implant Continue for Tissue Implant Documentation Tissue Identification Number Graft Prep Per Color Card Maker Instructions: Tissue Preparation Method: Reconstitution Solution: Reconstitution Solution Lot Number Reconstitution Solution Expiration Date: Thawing Solution Thawing Solution Lot Number Thawing Solution Expiration Date Preparation Materials, Other Preparation Materials, Other Lot Number Preparation Materials, Other Expiration Date Tissue Prepared/Processed By Color Card Maker Paperwork Completed Implant Type Comment Last Modified By: Lexus Linda Rn Sloan, Susan, Rn Sloan, Susan, Rn 02/12/19 15:46:28 02/12/19 15:46:28 02/12/19 15:46:28 [facility] IntraOp Implant Log Audit 02/12/19 15:46:28 Dog Boarder: JONN Meng: MEDARDO 1 <*> Implant Identification Description STENT LS EXP VASC CVR [id number] <+> 3 Implant Identification Description <+> 3 Implant Identification Lot Number <+> 3 Implant Identification Color Card Maker Name: <+> 3 Implant Expiration Date <+> 3 Implant Site <+> 3 Implant Quantity <+> 3 Implant Identification Catalog Number <+> 3 Implant Type <+> 3 Implant Identification Model Number <+> 3 Implant Has an Expiration Date <+> 3 Type <+> 4 Implant Identification Description <+> 4 Implant Identification Serial Number <+> 4 Implant Identification Color Card Maker Name: <+> 4 Implant Expiration Date <+> 4 Implant Site <+> 4 Implant Quantity <+> 4 Implant Identification Catalog Number <+> 4 Implant Type <+> 4 Implant Identification Model Number <+> 4 Implant Has an Expiration Date <+> 4 Type <+> 5 Implant Identification Description <+> 5 Implant Identification Lot Number <+> 5 Implant Identification Color Card Maker Name: <+> 5 Implant Expiration Date <+> 5 Implant Site <+> 5 Implant Quantity <+> 5 Implant Identification Catalog Number <+> 5 Implant Type <+> 5 Implant Identification Model Number <+> 5 Implant Has an Expiration Date <+> 5 Type <+> 6 Implant Identification Description <+> 6 Implant Identification Color Card Maker Name: <+> 6 Implant Expiration Date <+> 6 Implant Site <+> 6 Implant Quantity <+> 6 Implant Identification Catalog Number <+> 6 Implant Type <+> 6 Implant Identification Model Number <+> 6 Implant Has an Expiration Date <+> 6 Type 02/12/19 14:39:27 Dog Boarder: JONN Modifier: JONN <+> 2 Implant Identification Description <+> 2 Implant Identification Lot Number <+> 2 Implant Size <+> 2 Implant Expiration Date <+> 2 Implant Site <+> 2 Implant Quantity <+> 2 Implant Has an Expiration Date <+> 2 Type [facility] IntraOp Intraoperative Assessment Entry 1 Handoff [...] Modified By: Adilene Dhillon RN 02/13/19 06:58:24 [facility] IntraOp Intraoperative Assessment Audit 02/13/19 06:58:24 Dog Boarder: EANAPIER Modifier: EANAPIER 1 <*> Skin Assessment Verified Yes 1 <+> Handoff Method [facility] IntraOp Intraoperative Equipment Entry 1 Type Monitoring Equipment Intraop Monitoring Electrocardiogram Three lead placement (ECG) Electrode Placement Blood Pressure Non-Invasive BP Device Source Blood Pressure Arm, right upper Location Pulse Oximeter Hand, left Probe Site Antiembolic Devices Scopes Photo/Video Documentation Last Modified By: Adilene Dhillon RN 02/12/19 14:15:38 [facility] IntraOp Medication Admin Entry 1 Entry 2 Entry 3 Medication/Irrigant CESAR VISIPAQUE 320MG 150 lidocaine 1% 50ml vial CESAR NACL 0.9PCT HPRN 200ML --[id number] - [id number] 1000U .5L --[id number] Combo Med List Time Administered Route of [...] RN 02/12/19 14:14:13 02/12/19 14:14:13 02/12/19 14:14:13 [facility] IntraOp Medication Admin Audit 02/13/19 06:57:26 Dog Boarder: EANAPIER Modifier: EANAPIER <+> 1 Dose [facility] IntraOp Patient Positioning Entry 1 Procedure [...] Modified By: Adilene Dhillon RN 02/13/19 06:59:18 [facility] IntraOp Patient Positioning Audit 02/13/19 06:59:18 Dog Boarder: JONN Modifier: EANAPIER 1 <*> Procedure Aortogram Abdominal with Runoff(Right), Arterial Stent Endovascular(Right) 1 <*> Positioning Devices Head Rest, Safety Strap, Thighs, Sled Arm Rest 1 <*> Positioned By TONY PEÑA MD-JESUS 02/12/19 14:50:30 Dog Boarder: HARSHPIER Modifier: EANAPIER 1 <*> Procedure Aortogram Abdominal with Runoff(Right) [facility] IntraOp Sign In Entry 1 Patient, [...] Modified By: Adilene Dhillon RN 02/12/19 14:14:44 [facility] IntraOp Sign Out Entry 1 RN [...] Modified By: Adilene Dhillon RN 02/12/19 14:15:04 [facility] IntraOp Sign Out Audit 02/12/19 15:49:49 Dog Boarder: JONN Modifier: JOHNAN <+> 1 RN Sign Out Signature Date/Time 02/12/19 14:16:46 Dog Boarder: JONN Modifier: EANAPIER 1 <*> Urinary Catheter Documented in IView N/A [facility] IntraOp Skin Prep Entry 1 Procedure Aortogram Abdominal with Runoff(Right), Arterial Stent Endovascular(Right) Prescribed N/A Pre-Surgical Prep Completed Prep Area BILATERAL GROINS Intraop Prep Integumentary WDL Assessment WDL Prep Agents Chloraprep Prep by Adilene Dhillon RN Hair Removal Methods No hair removal performed Last Modified By: Adilene Dhillon RN 02/12/19 14:13:55 [facility] IntraOp Skin Prep Audit 02/12/19 14:50:30 Dog Boarder: JONN Modifier: EANAPIER 1 <*> Procedure Aortogram Abdominal with Runoff(Right) [facility] IntraOp Surgical Procedures Entry 1 Entry [...] Elizabeth A, RN 02/13/19 07:00:03 02/12/19 14:50:24 [facility] IntraOp Surgical Procedures Audit 02/13/19 07:00:03 Dog Boarder: MEDARDO Modifier: EANAPIER 1 <*> Procedure Aortogram Abdominal with Runoff 1 <*> Additional Procedure Description (AORTOGRAM WITH RT LEG REVASCULARIZATION) 02/12/19 15:49:57 Dog Boarder: JONN Modifier: ROSALINDALOAN 1 <*> Procedure Aortogram Abdominal with Runoff 1 <+> Stop <+> 2 Stop 02/12/19 14:54:15 Dog Boarder: JONN Modifier: HARSHPIER 1 <*> Procedure Aortogram Abdominal with Runoff 02/12/19 14:50:24 Dog Boarder: JONN Modifier: HARSHPIER <+> 2 Procedure <+> 2 Primary Procedure <+> 2 Modifiers <+> 2 Primary Surgeon <+> 2 Specialty <+> 2 Start <+> 2 Wound Class <+> 2 Anesthesia Type [facility] IntraOP Time Out Entry 1 Procedure [...] Modified By: Adilene Dhillon RN 02/12/19 14:50:31 [facility] IntraOP Time Out Audit 02/12/19 14:50:31 Dog Boarder: JONN Modifier: HARSHPIER 1 <*> Procedure to be Performed Aortogram Abdominal with Runoff(Right) [facility] IntraOp X-Ray and Images Entry 1 X-Ray/Imaging Type Fluoroscopy Fluoroscopy Type Fixed Telegraphic Typewriter Operator Name Mayra Castrejon [employer] Protective Devices [...] JORGE Correct Billing Electronically signed by Mickey, [facility] Conversion Supply Clerk Cerner at 08/13/2022 11:13 AM CDT documented in this encounter Plan of Treatment Not on file documented as of this encounter Visit Diagnoses Not on filedocumented in this encounter
--- OUTSIDE RECORDS SUMMARY | 2024-12-18 12:47 | XMS_ITS | Encounter Summary ---
Author Organization [employer] ([place], [place], [place], [place]) Address [address] [place] [address] Care Team Providers Care Embroidery Patternmaker Name Role Phone Unavailable Primary Care Provider Unavailabl e Encounter Details Date Type Department Care Team (Late st Contact Info) Description 02/09/2019 Transcribed Document [facility] [place] [facility] [place] [address] ProviderRegina MD [address] [place] [id number] Social History Tobacco Use Types Packs/Day [...] Source : Measured Height Entry Format : [place] Height, Inches : 63 Inch(Converted to: 5 ft 3 Inch, 160.02 cm) Clinical Height : 160.02 cm Weight Source : Standing scale Weight Entry Format : [place] Clinical Dosing Weight : 85.91 kg Weight, Pounds : 189 lb Body Surface Area (BSA) : 1.89 m2 Body Mass Index : 33.6 kg/m2 (HI) [place] Body Weight : 52 kg ABRAHAM STOKES RN - 02/12/2019 11:04 EDT Health Histories Smoking Status : 4 or less cigarettes(less than 1/4 pack)/day in last 30 days Smokeless Tobacco Status : Never Desires Tobacco Cessation Medication : No Reason for No Tobacco Cessation Medication : Refuses FDA approved medications Implant/Device Type, Telecommunication Engineer and Model : neck fusion and lumbar [...] Obtained From : Patient Primary Language : Azeri Communication Barrier : None MARY MCGRAW RN [...]
--- OUTSIDE RECORDS SUMMARY | 2024-12-18 12:47 | XMS_ITS | Encounter Summary ---
Author Organization [employer] ([place], [place], [place], [place]) Address [address] [place] [address] Care Team Providers Care Pillowcase Folder Name Role Phone Unavailable Primary Care Provider Unavailabl e Encounter Details Date Type Department Care Team (Late st Contact Info) Description 02/12/2019 Transcribed Document [facility] [place] [facility] [place] [address] ProviderRegina MD [address] [place] [address] Social History Tobacco Use Types [...] Document Reviewed: 05/14/2011 ExitCare? Patient Information ?2013 [employer]. Angiogram, Care After This sheet gives you [...] and water are not available, use hand software applications architect. ? Change your dressing as told by [...] contrast dye from your body. ??? Take ddek-whw-getlngm and prescription medicines only as told by [...] 10/28/2005 Document Revised: 03/16/2017 Document Reviewed: 03/16/2017 [facility] Interactive Patient Education ? 2019 [facility] Moderate Conscious Sedation, Adult, Care After [...] you are awake and alert. ??? Take gofl-web-juchkoh and prescription medicines only as told by [...] 01/30/2014 Document Revised: 09/13/2016 Document Reviewed: 07/31/2016 [facility] Interactive Patient Education ? 2019 [facility] documented in this encounter Plan of Treatment Not on file documented as of this encounter Visit Diagnoses Not on filedocumented in this encounter
--- OUTSIDE RECORDS SUMMARY | 2024-12-18 12:47 | XMS_ITS | Referral Summary ---
Author Organization [employer] ([place], [place], [place], [place]) Address [address] [place] [address] Care Team Providers Care Grade Tamper Name Role Phone Unavailable Primary Care Provider [...] Date Mathew rded Speak language other than Sammarinese at home Not on file 05/13/2023 Want [...]
--- OUTSIDE RECORDS SUMMARY | 2024-12-18 12:47 | XMS_ITS | Encounter Summary ---
Author Organization [employer] ([place], [place], [place], [place]) Address [address] [place] [address] Care Team Providers Care Forestry Aid Name Role Phone Unavailable Primary Care Provider Unavailabl e Encounter Details Date Type Department Care Team (Late st Contact Info) Description 02/12/2019 Transcribed Document [facility] Radiology [address] [place] [address] Martinez Miller MD [address] [facility] [place] [address] Social History Tobacco Use Types Packs/Day Years [...] with large thigh collaterals with reconstitution of tglrp-von-orfc popliteal artery. 3. Recanalization of occluded right common iliac artery and placement of an 8 x 38 [employer] within the proximal right common with a kissing 8 x 27 left common iliac artery stent. 4. Distal right common iliac artery was treated with an 8 x 38 stent, and right external iliac artery occlusion was treated with a 7 x 39 [place] VBX. OPERATIVE DESCRIPTION: The patient was taken back to the operating room, placed in a supine on the operating room table. Following IV sedation, bilateral groins were widely prepped and draped in a standard sterile fashion. Time-out was taken. Under ultrasound guidance, left common femoral artery was accessed with a Micropuncture needle. A 5-Kosovan sheath was placed. Flush catheter was advanced [...] with snare technique was used and a 7-Kosovan sheath was advanced into the ho-chunk aorta from the right femoral artery to [...] was treated with a 7 x 39 [place] VBX stent. Excellent results were achieved upon completion. Normal pulsatile flow was present within the right common femoral artery. Mynx closure device was used bilaterally. The patient was then taken back to Recovery in stable condition. No complications. /[id number] MD FARHAN NguyenA/BRIANNA / NNA / MODL /[id number] documented in this encounter Plan of Treatment Not on file documented as of this encounter Visit Diagnoses Not on filedocumented in this encounter
--- OUTSIDE RECORDS SUMMARY | 2024-12-18 12:47 | XMS_ITS | Encounter Summary ---
Author Organization [facility] Address [address] [place] [address] Care Team Providers Care Air Filler Name Role Phone Mustapha James MD Primary Care Provider + Encounter Details Date Type Department Care Team (Late st Contact Info) Description 12/06/2024 Telephone [facility] [address] [place] [address] Elisha Hilario, PATRICIA Social History [...] Description 12/27/2024 2:00 PM EDT Office Visit [facility] [address] [facility] [place] [address] Mustapha James MD [address] [facility] [place] [address] 01/18/2025 8:00 AM EDT Appointment [address] [place] [address] 01/18/2025 9:00 AM EDT Appointment [facility] PET [address] [facility] [place] [address] 01/18/2025 11:00 AM EDT Office Visit [facility] [address] [place] [phone] Chirag Mckee MD [address] [place] [address] documented as of this encounter Visit Diagnoses Not on filedocumented in this encounter Additional Health Concerns Assessment Noted Time PHQ-2 Depression Total Score: 1 10/24/19 2:19 PM EDT documented as of this encounter Care Teams Air Filler Relationship Specialty Start Date End Date Mustapha James MD [address] [place] [address] PCP - General Family Medicine 01/02/24 documented as of this encounter
--- OUTSIDE RECORDS SUMMARY | 2024-12-18 12:47 | XMS_ITS | Encounter Summary ---
Author Organization [employer] ([place], [place], [place], [place]) Address [address] [place] [address] Care Team Providers Care Back Feeder Plywood Layup Line Name Role Phone Unavailable Primary Care Provider Unavailabl e Encounter Details Date Type Department Care Team (Late st Contact Info) Description 02/12/2019 Transcribed Document [facility] Radiology [address] [place] [address] Martinez Miller MD [address] [facility] [address] [place] [id number] Social History Tobacco Use Types Packs/Day Years [...] skin and nails, Oral, Daily, 0 Refill(s) [place] 7.5 mg-325 mg oral tablet: 1 Tab, [...] Medication hair, skin and nails, Oral, Daily [place] 7.5 mg-325 mg oral tablet 1 Tab, [...] Problems Cervical spinal stenosis / SNOMED CT 723967368 / Confirmed Smoker / SNOMED CT 968713808 / Confirmed Sinusitis / SNOMED CT 29591503 / Confirmed Seasonal allergies / SNOMED CT 920418082 / Confirmed Restless leg / SNOMED CT 57211415 / Confirmed Colon polyps / SNOMED CT 938579858 / Confirmed Pneumonia / SNOMED CT 075031706 / Confirmed Peripheral vascular disease / SNOMED CT 9295170552 / Confirmed Peptic ulcer / SNOMED CT 32506051 / Confirmed Osteoporosis / SNOMED CT 156359671 / Confirmed Neuropathy, R arm / SNOMED CT 4361225522 / Confirmed Migraines / SNOMED CT 87711588 / Confirmed Skin cancer / SNOMED CT 2278768923 / Confirmed Hypertension / SNOMED CT 9718773187 / Confirmed Hyperlipidemia / SNOMED CT 08081901 / Confirmed Elevated cholesterol / SNOMED CT 49435849 / Confirmed Hiatal hernia / SNOMED CT 314021017 / Confirmed Hemorrhoids / SNOMED CT 991806897 / Confirmed H/O: TIA / SNOMED CT 396802816 / Confirmed GERD (gastroesophageal reflux disease) / SNOMED CT 510333335 / Confirmed Gastritis / SNOMED CT 1342807 / Confirmed Fibromyalgia / SNOMED CT 18717994 / Confirmed Fibroids / SNOMED CT 450195707 / Confirmed Endometriosis / SNOMED CT 8195544153 / Confirmed Diverticulitis / SNOMED CT 709239991 / Confirmed Sinus problem / SNOMED CT 0345867700 / Confirmed Known medical problems / SNOMED CT 316100967 / Confirmed white spots on MRI Known medical problems / SNOMED CT 696385283 / Confirmed anti nuclear A and A antibodies Constipation / SNOMED CT 54557592 / Confirmed COPD (chronic obstructive pulmonary disease) / SNOMED CT 23422582 / Confirmed Chronic cough / SNOMED CT 723483727 / Confirmed Chronic constipation / SNOMED CT 658408720 / Confirmed Stroke, possible / SNOMED CT 457932026 / Confirmed Bursitis / SNOMED CT 443838505 / Confirmed Bronchitis / SNOMED CT 43479278 / Confirmed Back pain / SNOMED CT 800702650 / Confirmed Arthritis / SNOMED CT 1542662 / Confirmed Anemia / SNOMED CT 630847205 / Confirmed Allergic rhinitis / SNOMED CT 232134468 / Confirmed, Active Problems (39) Allergic rhinitis [...] LE weakness, uses cane. Integumentary: Warm, Dry, [place]. Neurologic: Alert, Oriented. Psychiatric: Cooperative, Appropriate mood & affect. Review / Management Results review: No qualifying data available. Impression and Plan Condition: Stable. documented in this encounter Plan of Treatment Not on file documented as of this encounter Visit Diagnoses Not on filedocumented in this encounter
--- OUTSIDE RECORDS SUMMARY | 2024-12-18 12:47 | XMS_ITS | Encounter Summary ---
Author Organization [employer] ([place], [place], [place], [place]) Address [address] [place] [address] Care Team Providers Care Cushion Spring Assembler Name Role Phone Unavailable Primary Care Provider Unavailabl e Encounter Details Date Type Department Care Team (Late st Contact Info) Description 03/14/2019 Transcribed Document [facility] [place] [facility] [place] [address] ProviderRegina MD [address] [place] [address] Social History Tobacco Use Types Packs/Day Years Used Date Smoking Tobacco: Never Assessed Comments Unknown Sex and Gender Information Value Date Recorded Sex Assigned at Not on file Legal Sex Female 5:00 PM CDT Gender Identity Not on file Sexual Orientation Not on file documented as of this encounter Miscellaneous Notes * Cerner Conversion Note - Regina ProviderMD - 03/14/2019 12:37 PM COFFIN MAKER [facility] Main OR Preop Summary Primary Physician: TONY PEÑA MD-SUR Finalized Date/Time: 03/14/19 13:13:44 Pt. Name: THOMAS GTZ SRIRAM Reynolds/Sex: 1955 Female Med Rec #: [id number] Physician: TONY PEÑA MD-SUR Financial #: [id number] Pt. Type: O Room/Bed: Admit/Disch: 03/14/19 09:48:00 - Institution: [facility] PreOp Case Times Entry 1 In Preop 03/14/19 10:14:00 Ready for Holding n/a Room Patient Ready for 03/14/19 11:25:00 Surgery Patient Out of Preop 03/14/19 12:14:00 Patient Out of n/a Holding Room Last Modified By: Susie Hernández, RN 03/14/19 13:13:43 [facility] PreOp Case Times Audit 03/14/19 13:13:43 Director Of Instructional Technology: WRIGHTVP Modifier: WRIGHTVP <+> 1 Patient Out of Preop 03/14/19 11:25:55 Director Of Instructional Technology: WRIGHTVP Modifier: WRIGHTVP <+> 1 Patient Ready for Surgery Finalized By: Susie Hernández RN Document Signatures Signed By: Susie Hernández RN 03/14/19 13:13 Electronically signed by Mickey [facility] Conversion Celery Cutter Cerner at 08/13/2022 11:17 AM CDT documented in this encounter Plan of Treatment Not on file documented as of this encounter Visit Diagnoses Not on filedocumented in this encounter
--- OUTSIDE RECORDS SUMMARY | 2024-12-18 12:47 | XMS_ITS | Encounter Summary ---
Author Organization [employer] ([place], [place], [place]) Address [address] [place] [address] Care Team Providers Care Java User Interface Developer Name Role Phone Unavailable Primary Care Provider Unavailabl e Encounter Details Date Type Department Care Team (Late st Contact Info) Description 03/14/2019 Transcribed Document [facility] Radiology 1 [place] [address] Martinez Miller MD [address] [facility] [place] [address] Social History Tobacco Use Types Packs/Day Years [...] allow for placement and advancement of a 6-Irish sheath. 3. Catheter placement within the aorta. 4. Aortography demonstrating patency of bilateral common iliac artery stents. 5. Inability to access the occluded left superficial femoral artery through an antegrade fashion. 6. Successful recanalization of occluded superficial femoral artery through pedal access and placement of a 5 x170 LifeStent. OPERATIVE DESCRIPTION: The patient was taken back to the distillery laborer and placed in supine position. Following [...] Attempts to advance a radio to peripheral 6-Irish sheath was performed, fortunately successful. This got [...] successfully with a micropuncture wire. A low-profile 6-Irish sheath was placed. Left lower extremity angiogram [...] Recovery in stable condition. No immediate complications. /[id number] Martinez Mliler MD NNA/AQ / NNA / MODL /[id number] documented in this encounter Plan of Treatment Not on file documented as of this encounter Visit Diagnoses Not on filedocumented in this encounter
--- OUTSIDE RECORDS SUMMARY | 2024-12-18 12:47 | XMS_ITS | Encounter Summary ---
Author Organization [facility] Address [address] [id number] Care Team Providers Care Leguillon Debeader Name Role Phone Mustapha James MD Primary Care Provider Miguel Lamb MD Unavailable [phone] Encounter Details Date Type Department Care [...] PM EDT Appointment Cardiac Imaging [address] [place] [address] 12/06/2025 1:30 PM EDT Office Visit [facility] [address] [place] [address] Miguel Lamb MD [address] [place] [address] documented as of this encounter [...] documented as of this encounter Care Teams Leguillon Debeader Relationship Specialty Start Date End Date Mustapha James MD [address] [place] [address] PCP - General 09/05/20 Miguel Lamb MD [address] [place] [id number] Referring Physician Interventional Cardiology 08/16/24 documented as of this encounter
[2024-12-18 12:59] LABS: Hematocrit 41.3 % (37.0-47.0); Hemoglobin 12.3 g/dL (12.2-16.2); Immature Granulocytes % 0.4 %; Mean Corpuscular HGB Conc 29.8 g/dL (31.8-35.4); Mean Corpuscular Hemoglobin 30.6 pg (27.0-31.2); Mean Corpuscular Volume 102.7 fl (81-99); Nucleated Red Blood Cells % 0 %; Platelet Count 266 K/mm3 (142-424); Red Blood Count 4.02 M/mm3 (4.20-5.40); Red Cell Distribution Width-SD 81.8 fL; White Blood Count 7.8 K/mm3 (4.8-10.8)
[2024-12-18 15:57] LABS: Vitamin B12 703 pg/mL (239-931)
[2024-12-19 09:54] LABS: Iron 117 ug/dL (37-170)
[2024-12-19 10:03] LABS: Total Iron Binding Capacity 351 ug/dL (265-497)
[2024-12-19 10:30] LABS: Ferritin 286 ng/ml (11.1-264)
== END 2024-12-18 12:48 | disposition home or self-care (01) ==
LOC: INF 12:44
PROVIDERS: PCP Family Medicine; Visit Provider Internal Medicine Medical Oncology
DX: D64.9 Anemia, unspecified (principal)
CPT/HCPCS: 36415; 82607; 82728; 83540; 83550; 85025

== ENCOUNTER 2025-02-19 12:45 | Outpatient (CLI) | payer MEDICARE, SELFPAY ==
--- OUTSIDE RECORDS SUMMARY | 2024-12-27 14:00 | XMS_ITS | Encounter Summary ---
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 (Primary Dx); Generalized anxiety disorder; Failed back syndrome of lumbar spine; Spondylosis of lumbar region without myelopathy or radiculopathy; Arthritis of lumbar spine; Nonrheumatic aortic (valve) stenosis; NSCLC of right lung; Left ventricular systolic dysfunction Social History Tobacco Use Types Packs/Day Years [...] Sign Reading Time Taken Comments Blood Pressure 118/60 12/27/2024 1:52 PM EDT Pulse 85 12/27/2024 1:52 PM EDT Temperature 37 C (98.6 F) 12/27/2024 1:52 PM EDT Respiratory Rate 20 12/27/2024 1:52 PM EDT Oxygen Saturation 95% 12/27/2024 1:52 PM EDT Inhaled Oxygen Concentration - - Weight 87.6 kg (193 lb 3.2 oz) 12/27/2024 1:52 P M EDT Height 160 cm (5' 3 ) 12/27/2024 1:52 PM EDT Body Mass Index 34.22 12/27/2024 1:52 PM EDT documented in this encounter Progress Notes * Mustapha James MD - 12/27/2024 2:00 PM EDT Chief Complaint Patient presents with Follow-up chronic low back pain Anxiety Subjective Jodi Byrne is a 69 y.o. who presents for chronic care. She is in need of refills for hydrocodone which she utilizes for failed back syndrome and diazepam which she utilizes for generalizedanxiety disorder. Her pain is stable. Anxiety is also stable. Patient primarily wants to discuss her coronary artery disease and aortic stenosis. Patient had recent follow-up with her fast food shift supervisor, Dr. Melody Cornejo at [facility]. Her recent echocardiogram showed worsening LV function compared to 2024 despite recent revascularization procedures performed in a staged fashion to [facility]. Patient had initially been referred to due to severe coronary artery disease in combination with what was believed to be severe aortic stenosis. Team-based approach was taken to decision making and patient underwent staged coronary interventions. She followed up with within the last week and was told there was no need to proceed with aortic valve replacement at this time via TAVR. Patient continues to feel poorly. She gets short of breath with light activity although this has improved slightly with improvement in her anemia dueto iron deficiency. Patient sees Dr. Yordy Bush at [facility] hematology oncologyclinic. Patient's fast food shift supervisor at [facility] has referred her to Dr. Ochoa for second opinion. Patient also has non-small cell lung cancer of the right lung. She will be undergoing PET/CT in January for surveillance after CyberKnife treatments in 2023 The following portions of the patient's history were reviewed and updated as appropriate: allergies, current medications, past family history, past medical history, past social history, past surgicalhistory, and problem list. Review of Systems Objective Vital Signs: BP 118/60 Pulse 85 Temp 98.6 ??F (37 ??C) Resp 20 Ht 160 cm (63 ) Wt 87.6 kg (193 lb 3.2 oz) SpO2 95% BMI 34.22 kg/m?? Physical Exam Vitals reviewed. Constitutional: Appearance: Normal appearance. Cardiovascular: Rate and Rhythm: Normal rate and regular rhythm. Pulmonary: Effort: No respiratory distress. Breath sounds: No wheezing or rales. Comments: Breath sounds are distant Musculoskeletal: Right lower leg: Edema present. Left lower leg: Edema present. Neurological: Mental Status: She is alert. Result Review Assessment and Plan Diagnoses and all orders for this visit: 1. 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 Omar Chavez 2. Generalized anxiety disorder Comments: STable. Refill diazepam Orders: - Discontinue: diazePAM (VALIUM) 5 MG tablet; Take 1 tablet by mouth Every 8 (Eight) Hours As Needed for Anxiety. Dispense: 120 tablet; Refill: 2 - diazePAM (VALIUM) 5 MG tablet; Take 1 tablet by mouth Every 6 (Six) Hours As Needed for Anxiety. Dispense: 120 tablet; Refill: 2 3. Failed back syndrome of lumbar spine - HYDROcodone-acetaminophen (NORCO) 7.5-325 MG per tablet; Take 1 tablet by mouth Every 8 (Eight) Hours As Needed for Moderate Pain. Dispense: 90 tablet; Refill: 0 4. Spondylosis of lumbar region without myelopathy or radiculopathy - HYDROcodone-acetaminophen (NORCO) 7.5-325 MG per tablet; Take 1 tablet by mouth Every 8 (Eight) Hours As Needed for Moderate Pain. Dispense: 90 tablet; Refill: 0 5. Arthritis of lumbar spine - HYDROcodone-acetaminophen (NORCO) 7.5-325 MG per tablet; Take 1 tablet by mouth Every 8 (Eight) Hours As Needed for Moderate Pain. Dispense: 90 tablet; Refill: 0 6. Nonrheumatic aortic (valve) stenosis 7. NSCLC of right lung 8. Left ventricular systolic dysfunction Plan 1. Patient's chronic pain is stable. Hydrocodone was refilled. UDS was compliant earlier in the year. Garry is compliant 2. For patient's generalized anxiety disorder she will continue diazepam every 6 hours 3. Regarding patient's coronary artery disease with aortic stenosis and new LV dysfunction recentlyidentified patient will follow-up with Dr. Ochoa on January 01. I did have a long discussion with the patient that getting a second opinion does not guarantee she will have any type of procedure despite this seeming to be her wishes. Patient has very high anxiety around potential procedure. 4. She will have PET/CT as scheduled in January with follow-up with Dr. Mckee in January as well. I spent 40 minutes caring for Jodi on this date of service. This time includes time spent by me inthe following activities:preparing for the visit, reviewing tests, performing a medically appropriate examination and/or evaluation , counseling and educating the patient/family/caregiver, ordering medications, tests, or procedures, and documenting information in the medical record Follow Up No follow-ups on file. Patient was given instructions and counseling regarding her condition or for health maintenance advice. Please see specific information pulled into the AVS if appropriate. documented in this encounter Plan of Treatment Upcoming Encounters Date Type Department Care Team (Late st Contact Info) Description 03/28/2025 1:45 PM EST Office Visit [facility] [address] [place] [address] Mustapha James MD [address] [place] [address] 04/12/2025 1:30 PM EST Clinical Support [facility] [address] [place] [address] Chirag Mckee MD [address] [place] [address] documented as of this encounter Visit Diagnoses Diagnosis Coronary artery disease involving jena coronary artery of jena heart without angina pectoris- Primary Generalized anxiety disorder 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
--- OUTSIDE RECORDS SUMMARY | 2025-01-01 15:00 | XMS_ITS | Encounter Summary ---
Author Organization [facility] Address [address] [place] [address] Care Team Providers Care Public Relations Analyst Name Role Phone Mustapha James MD Primary Care Provider + Reason for Referral * Diagnostic Imaging (Routine) - Closed Specialty Diagnoses / Procedures Referred By Kyle nash Referred To Contact Diagnoses Failed back syndrome of lumbar spine Chronic pain syndrome Spondylosis of cervical region without myelopathy or radiculopathy Shortness of breath Ventricular tachycardia (paroxysmal) Palpitations Procedures Adult Stress Echo W/ Cont or Stress Agent if Necessary Per Protocol MO ECHO TRANSTHORC R-T 2D W/WO M-MODE REC F-UP/LMTD MO ECHO TTHRC R-T 2D W/WO M-MODE COMPLETE REST&ST MO ECHO TTHRC R-T 2D W/WO M-MODE REST&STRS CONT ECG Layla Ochoa MD [address] [facility] [facility] [place] [address] Phone: tel: fax: [facility] [address] [place] [address] Phone: tel: Referral ID Status Reason Start Date Expiration Date Visits Re quested Visits Authorized [id number] Closed 01/01/2025 04/02/2026 1 1 * Monitoring (Routine) - Closed Specialty Diagnoses / Procedures Referred By Contac t Referred To Contact Cardiology Diagnoses Failed back syndrome of lumbar spine Chronic pain syndrome Spondylosis of cervical region without myelopathy or radiculopathy Shortness of breath Ventricular tachycardia (paroxysmal) Palpitations Procedures Holter Monitor - 72 Hour Up To 15 Days Layla Ochoa MD [address] [facility] [place] [address] Phone: tel: fax: [facility] [address] [facility] [address] [place] [address] Phone: tel: fax: Referral ID Status Reason Start Date Expiration Date Visits Re quested Visits Authorized [id number] Closed 01/01/2025 04/02/2026 1 1 Reason for Visit * Reason Comments Establish Care TAVR Consult Encounter Details Date Type Department Care Team (Late st Contact Info) Description 01/01/2025 3:00 PM EDT Office Visit [facility] [address] [facility] [address] [place] [address] Layla Ochoa MD [address] [place] [id number] Aortic stenosis, moderate (Primary Dx); Palpitations; Coronary artery disease involving [place] coronary artery of [place] heart without angina pectoris; Paroxysmal atrial fibrillation; Peripheral artery disease Social History Tobacco Use Types Packs/Day Years [...] Sign Reading Time Taken Comments Blood Pressure 92/50 01/01/2025 2:59 PM EDT Pulse 81 01/01/2025 2:59 PM EDT Temperature - - Respiratory Rate - - Oxygen Saturation 92% 01/01/2025 2:59 PM EDT Inhaled Oxygen Concentration - - Weight 83.9 kg (185 lb) 01/01/2025 2:59 PM EDT Height 160 cm (5' 3 ) 01/01/2025 2:59 PM EDT Body Mass Index 32.77 01/01/2025 2:59 PM EDT documented in this encounter Progress Notes * Layla Ochoa MD - 01/01/2025 3:00 PM EDTAssociated Order(s): ECG 12 Lead Post-Procedure Diagnose(s): Palpitations [facility] Cardiology Consultation note Subjective: Patient ID: Jodi Byrne is a 69 y.o. female. Referring provider: No ref. provider found Reason for consultation: Chief Complaint Patient presents with [facility] TAVR Consult Problem List: Aortic stenosis Echocardiogram 06/12/2024 [facility]: LVEF 55% mean aortic valve gradient 21 mmHg calculated aortic valve gradient 0.74 cm??. No stroke-volume available Echocardiogram 11/29/2024, [facility]: LVEF 40% with a mean aortic valve gradient of 26 mmHg. Stroke-volume index 36 mL/m??. Coronary artery disease 08/30/24 07/03/2019 placement of a 3 x 26 mm Manjit BA to the proximal LAD. 90% ostial left main stenosis s/p successful PCI with placement of a 4.5 x 15 mm [place] Kinney drug-eluting stent (overlapping with previously placed stent distally and 1-2 mm of stent extending in the aorta) , 70% heavily calcified distal left main severe in-stent re-stenosis s/p balloon angioplasty with a 3.5 NC balloon, 90% ostial RCA stenosis s/p successful PCI with placement of a 3.0 x 12 mmand 3.0 x 18 mm F[place] Kinney drug-eluting stent. Proximal-mid stent post- dilated to 3.5, Residual 70% tubular stenosis of the mid RCA 09/18/24: 70% ostial RCA stenosis s/p successful PCI with placement of an overlapping 3.5 x 12 mm Fulton Manjit drug-eluting stent. Ostium flared to 4.0. Serial 70% diffuse lesions of the mid-distal RCA s/p successful PCI with placement of overlapping 3.0 x 26 mm and 2.75 x 30 mm F[place]on Kinney drug-eluting stents (proximal-distal). Peripheral arterial disease 03/14/2019 left SFA recanalization and stent placement using a 5 x [address] Martinez Miller Right renal artery stent, date unknown: 6 x 15 mm Herculink Elite 01/01/2022: Right radial artery access as well as bilateral femoral access. Abdominal aortic dissection status post placement of an 8 x 57 mm balloon expandable stent from the distal abdominal aorta into the right common iliac artery with a second 8 x 57 mm balloon expandable stent placed in the leftgroin into the distal abdominal aorta and left common iliac artery, Dr. Chavez 01/12/2022 duplex reveals occlusive thrombus in the distal right radial artery. 09/13/2022: Successful intravascular lithotripsy to the left SFA and left popliteal followed by successful drug-coated balloon angioplasty, Dr. Chavez Lung cancer, type unknown right upper lung Diagnosed by PET scan 02/14/[address] Mckee. Status post [employer]. Paroxysmal atrial fibrillation Hypertension Hyperlipidemia COPD Anemia Tobacco use with cessation approximately 2022 Spinal surgery L1-S1 with lumbar rodding and screws Allergies Allergen Reactions Atorvastatin Myalgia Contrast Dye (Echo Or Unknown Ct/Mr) Anaphylaxis, Hives and Swelling Rosuvastatin Myalgia Simvastatin Myalgia Demerol [Meperidine] Other (See Comments) nonresponsive Decongestant [Pseudoephedrine] Palpitations Current Outpatient Medications: albuterol sulfate HFA 108 [...] , Rfl: diazePAM (VALIUM) 5 MG tablet, Take 1 tablet by mouth Every 6 (Six) Hours As Needed for Anxiety., Disp: 120 tablet, Rfl: 2 famotidine (PEPCID) 20 MG tablet, Take 1 tablet by mouth 2 (Two) Times a Day., Disp: , Rfl: fluticasone (FLONASE) 50 MCG/ACT nasal spray, Administer 2 sprays into the nostril(s) as directed by provider Daily., Disp: , Rfl: Mwmopielhsh-Edtmmgfkx-Mrciff (Trelegy Ellipta) 100-62.5-25 MCG/ACT inhaler, Inhale 1 puff Daily., Disp: 1 each, Rfl: 11 HYDROcodone-acetaminophen (NORCO) 7.5-325 MG per tablet, Take 1 tablet by mouth Every 8 (Eight) Hours As Needed for Moderate Pain., Disp: 90 tablet, Rfl: 0 lansoprazole (PREVACID) [...] 25 tablet, Rfl: 1 nystatin-triamcinolone (MYCOLOG II) 819154-4.1 UNIT/GM-% cream, Apply 1 Application topically to the appropriate area as directed 2 (Two) Times a Day., Disp: 60 g, Rfl: 1 Repatha SureClick solution auto-injector SureClick injection, , Disp: , Rfl: spironolactone (ALDACTONE) 25 MG tablet, Take 1 tablet by mouth Daily., Disp: , Rfl: torsemide (DEMADEX) 20 MG tablet, Take 1 tablet by mouth Daily., Disp: 30 tablet, Rfl: 0 vitamin D (ERGOCALCIFEROL) 1.25 MG (68221 UT) capsule capsule, TAKE 1 CAPSULE BY MOUTH 1 (ONE) TIMEPER WEEK., Disp: 5 capsule, Rfl: 2 HPI: Jodi Byrne is a 69 y.o. female who present today to establish care for her aortic stenosis. The patient has been a longtime smoker and quit about 2-1/2 years ago. She has known peripheral arterial disease renal artery disease and coronary artery disease. I obtained to the available stent cards from the patient. (Based on her CT scan it appears that more peripheral interventions have been performed) The patient states that she has no breath and is unable to do anything. She says that she actually feels worse now since she had her left main and right coronary stents than she did before. Apparently when she was in the hospital in November she had terrible lower extremity edema which has improved somewhat. She notes that her heart races whenever she tries to stand and she also notes dizziness. She also notes that since her procedure she has been numb in her left arm. Cardiac Risk Factors: The following portions of the patient's history were reviewed and updated as appropriate: allergies, current medications and problem list. Social History Socioeconomic History Marital status: Number of children: 2 Tobacco Use Smoking status: Some Days Current packs/day: 0.00 Average packs/day: 0.5 packs/day for 50.0 years (25.0 ttl pk-yrs) Types: Cigarettes Start date: 04/26/1972 Last attempt to quit: 04/26/2022 Years since quittin.6 Smokeless tobacco: Never Tobacco comments: Pt is trying to quit. She usually smokes in response to stressfull events Vaping Use Vaping status: Never Used Substance and Sexual Activity Alcohol use: Not Currently Drug use: Yes Types: Hydrocodone Sexual activity: Defer Family History Problem Relation Age of Onset Cirrhosis Mother Cirrhosis Father Hyperlipidemia Sister Thyroid disease Sister Hypertension Sister Cancer Sister ovarian Arthritis Sister Hyperlipidemia Brother Arthritis Brother Review of Systems: Objective: Vitals: 01/01/25 1459 BP: 92/50 Pulse: 81 SpO2: 92% GENERAL: This is a well-developed, well-nourished, white female who is in no acute distress. Alert and oriented x3. Normal mood and affect. SKIN: [place] and warm without rash or abnormality noted. HEENT: Head is normocephalic and atraumatic. Pupils are equal and reactive to light bilaterally. Mucous membranes are pink and moist. NECK: Supple without lymphadenopathy or thyromegaly. There is no jugular venous distention at 30??. LUNGS: Wheezing and rhonchi noted bilaterally. Decreased breath sounds bilaterally. CARDIOVASCULAR: The heart has a regular rate with a normal S1 and S2. There is 2/6S E murmur, no gallop, rub, or click appreciated. The PMI is nondisplaced. Carotid upstrokes are 2+ and symmetrical with right carotid bruit versus radiation of murmur ABDOMEN: Soft and nondistended with positive bowel sounds x4. The patient denies tenderness of palpitation. MUSCULOSKELETAL: There are no obvious bony abnormalities. Normal range of tenderness to palpation. NEUROLOGICAL: Nonfocal. PERIPHERAL VASCULAR: Femoral pulses are 2+ and symmetrical without bruits. Posterior tibial and dorsalis pedis pulses are nonpalpable. There is 2+ peripheral edema. Diagnostic Data (reviewed): Lab Results Component Value Date GLUCOSE 108 (H) 01/24/2024 BUN 14 01/24/2024 CREATININE 1.11 (H) 01/24/2024 EGFRIFAFRI 48 09/18/2024 BCR 13 01/24/2024 K 4.7 01/24/2024 CO2 21 01/24/2024 CALCIUM 9.8 01/24/2024 ALBUMIN 4.3 07/21/2023 ALKPHOS 123 (H) 07/21/2023 AST 23 07/21/2023 ALT 28 07/21/2023 Lab Results Component Value Date WBC 8.79 09/18/2024 RBC 2.65 (L) 09/18/2024 HGB 7.2 (L) 09/18/2024 HCT 24.6 (L) 09/18/2024 MCV 93 09/18/2024 MCH 27.2 09/18/2024 PLT 358 09/18/2024 Lab Results Component Value Date CHLPL 216 (H) 01/24/2024 TRIG 269 (H) 01/24/2024 HDL 43 01/24/2024 LDL 125 (H) 01/24/2024 Lab Results Component Value Date HGBA1C 5.7 (H) 06/03/2022 ECG 12 Lead Date/Time: 01/01/2025 4:34 PM Performed by: Layla Ochoa MD Authorized by: Layla Ochoa MD Comparison: not compared with previous ECG Previous ECG: no previous ECG available Rhythm: sinus rhythm BPM: 81 Comments: Late precordial R wave progression. Left axis deviation. Prolonged QT. Assessment: ICD-10-CM ICD-9-CM 1 Aortic stenosis, moderate to severe in seemingly symptomatic I35.0 424.1 2. Palpitations R00.2 785.1 3. Coronary artery disease involving [place] coronary artery of [place] heart without angina vdzltxzfL21.10 414.01 4. Paroxysmal atrial fibrillation I48.0 427.31 5. Peripheral artery disease I73.9 443.9 Plan: Holter monitor to evaluate the patient for recurrence of atrial fibrillation as a cause for her palpitations. Dobutamine echo as her ejection fraction by her last echo at [facility] was 40% and it appearsthat she is very close to being a low-flow low gradient aortic stenosis. She certainly seems symptomatic. Follow-up after testing sooner as needed. Layla Ochoa MD, FACC documented in this encounter Plan of Treatment Upcoming Encounters Date Type Department Care Team (Late st Contact Info) Description 03/28/2025 1:45 PM EST Office Visit [facility] [address] [place] [id number] Mustapha James MD [address] [place] [address] 04/12/2025 1:30 PM EST Clinical Support [facility] [address] [place] [address] Chirag Mckee MD [address] [place] [address] documented as of this encounter Procedures Procedure Name Priority Date/Time Associated Diagnosis Comments ECG 12-LEAD Routine 01/01/2025 4:34 PM EDT Palpitations documented in this encounter Results * SE QUAD ONLY W/ DOBUTAMINE (01/15/2025 9:11 AM EDT) BH CV STRESS PROTOCOL 1 Pharmacologic Stage 1 1.0 Duration Min Stage 1 3 Duration Sec Stage 1 0 Stress Dose Dobutamine Stage 1 5.00 Stage 2 2.0 Duration Min Stage 2 3 Duration Sec Stage 2 0 Stress Dose Dobutamine Stage 2 10.00 Stage 3 3.0 Duration Min Stage 3 5 Duration Sec Stage 3 2 Stress Dose Dobutamine Stage 3 20.00 Baseline HR 80 bpm Baseline BP 124/68 mmHg O2 sat rest 93 % Target HR (85%) 127 bpm Max. Pred. HR (100%) 149 bpm HR Stage 1 87 BP Stage 1 125/55 O2 Stage 1 94 HR Stage 2 93 BP Stage 2 114/52 O2 Stage 2 95 HR Stage 3 134 BP Stage 3 99/43 O2 Stage 3 93 Peak HR 139 bpm Percent Max Pred HR 93.29 % Percent Target HR 110 % Peak BP 125/55 mmHg O2 sat peak 95 % Recovery HR 100 bpm Recovery BP 107/58 mmHg Recovery O2 91 % Exercise duration (min) 11 min Exercise duration (sec) 2 sec Estimated workload 1.0 METS Stress Rate Stage 1 26 Stress Rate Stage 2 52 Stress Rate Stage 3 103 BH CV SEV RESTING HR 82.00 BH CV SEV RESTING SV 56.00 BH CV SEV RESTING LVOT DIAM 2.10 BH CV SEV RESTING LVOT KAL 82.70 BH CV SEV RESTING LVOT VTI 16.20 BH CV SEV RESTING AO KAL 296.00 BH CV SEV RESTING AO VTI 59.10 BH CV SEV RESTING AV MEAN 20.00 BH CV SEV RESTING AV PEAK 35.00 BH CV SEV RESTING KARISHMA 0.95 BH CV SEV RESTING AV DI 0.27 BH CV SEV FIRST STAGE MICS 5.00 BH CV SEV FIRST STAGE HR 81.00 BH CV SEV FIRST STAGE SV 61.00 BH CV SEV FIRST STAGE LVOT KAL 93.00 BH CV SEV FIRST STAGE LVOT VTI 17.70 BH CV SEV FIRST STAGE AO KAL 345.00 BH CV SEV FIRST STAGE AO VTI 72.70 BH CV SEV FIRST STAGE AV MEAN 30.00 BH CV SEV FIRST STAGE AV PEAK 48.00 BH CV SEV FIRST STAGE KARISHMA 0.83 BH CV SEV FIRST STAGE KARISHMA DI 0.24 BH CV SEV SEC STAGE MICS 10.00 BH CV SEV SEC STAGE HR 86.00 BH CV SEV SEC STAGE SV 58.00 BH CV SEV SEC STAGE LVOT KAL 107.00 BH CV SEV SEC STAGE LVOT VTI 16.90 BH CV SEV SEC STAGE AO KAL 373.00 BH CV SEV SEC STAGE AO VTI 68.00 BH CV SEV SEC STAGE AV MEAN 33.00 BH CV SEV SEC STAGE AV PEAK 55.00 BH CV SEV SEC STAGE KARISHMA 0.86 BH CV SEV SEC STAGE AV DI 0.24 BH CV SEV THRD STAGE MICS 20.00 BH CV SEV THRD STAGE HR 115.00 BH CV SEV THRD STAGE SV 57.00 BH CV SEV THRD STAGE LVOT KAL 113.00 BH CV SEV THRD STAGE LVOT VTI 16.60 BH CV SEV THRD STAGE AO KAL 413.00 BH CV SEV THRD STAGE AO VTI 55.50 BH CV SEV THRD STAGE AV MEAN 41.00 BH CV SEV THRD STAGE AV PEAK 68.00 BH CV SEV THRD STAGE KARISHMA 0.95 BH CV SEV THRD STAGE AV DI 0.29 EF(MOD-bp) 43.1 % LVOT area 3.3 cm2 LVOT diam 2.05 cm EDV(MOD-sp2) 118.0 ml EDV(MOD-sp4) 136.0 ml ESV(MOD-sp2) 72.4 ml ESV(MOD-sp4) 79.6 ml SV(MOD-sp2) 45.6 ml SV(MOD-sp4) 56.4 ml EF(MOD-sp2) 38.6 % EF(MOD-sp4) 41.5 % SV(LVOT) 57.4 ml LV V1 max 103.5 cm/sec LV V1 max PG 4.3 mmHg LV V1 mean PG 2.50 mmHg LV V1 VTI 17.4 cm Ao pk kal 394.6 cm/sec Ao max PG 62.4 mmHg Ao mean PG 38.7 mmHg Ao V2 VTI 54.4 cm KARISHMA(I,D) 1.05 cm2 Dimensionless Index 0.32 (DI) AI P1/2t 537.0 msec Anatomical Region Laterality Modality Other, Ultrasoun d Narrative 01/15/2025 11:21 AM EDT Patient reported chest discomfort described as feels like an elephant on my chest around minute 9:00 of recovery, scored as 7/10 on numeric pain scale. Patient then reported midsternal chest discomfort that was dull in nature at minute 11:00 of recovery, scored 4/10 on numeric pain scale, resolving to 0/10 by end of recovery. SR-ST with rare PACs and occasional PVCs during exercise; frequent PVCs, ventricular couplet x1, ventricular trigeminy during recovery. Normal hemodynamic response to dobutamine. Less than [address] segment depression was seen with the infusion. Baseline ejection fraction is 40-45%. With the dobutamine infusion the ejection fraction improved to 55%. Severe aortic valve stenosis is present. During the dobutamine infusion the stroke-volume remained unchanged however the ejection fraction improved significantly. The patient's aortic valve mean gradient at baseline was 21 and increased to 42 with the dobutamine infusion. The peak aortic velocity increased from 3.17 m/s to 4.07 m/s with the infusion The aortic valve area increased very slightly however respiratory variation made accurate LVOT VTI capture difficult. I think that this patient would benefit from TAVR. Left Ventricle Left ventricular systolic function is mildly decreased. Calculated left ventricular EF = 43.1% Left ventricular ejection fraction appears to be 41 - 45%. Right Ventricle Right ventricle not assessed. Left Atrium Left atrium not assessed. Right Atrium Right atrium not assessed. Mitral Valve Mild to moderate mitral valve regurgitation is present. Tricuspid Valve Tricuspid valve not assessed. Aortic Valve The aortic valve is abnormal in structure. There is calcification of the aortic valve. Mild aortic valve regurgitation is present. Severe aortic valve stenosis is present. Pulmonic Valve The pulmonic valve was not assessed. Pericardium The pericardium is normal. There is no evidence of pericardial effusion. . Greater Vessels The aortic root not assessed. Rest ECG The baseline EKG showed normal sinus rhythm at a rate of [address] flattening inferiorly and laterally.. Stress ECG Stress ECG rhythm of sinus tachycardia noted. The EKG at peak heart rate showed sinus tachycardia at a rate of 137 bpm with approximately [address] depression inferiorly and laterally.. Non-specific ST-T wave changes noted during stress. Arrhythmias during stress: rare PACs, PVCs. Stress ECG was interpretable. Stress Description A pharmacological stress test was performed using dobutamine without low-level exercise. The patient reached the end of the protocol and achieved the target heart rate. The clinician observed no symptoms during the stress test. None Recovery ECG During recovery, the patient complained of chest discomfort following stress. Sinus tachycardia was noted during recovery. Arrhythmias during recovery: frequent PVC's, couplets. 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 us Layla Ochoa MD CV ECHO ORDERABLES Sheyla caban Result * ECG 12-LEAD (01/01/2025 4:34 PM EDT) Narrative Layla Ochoa MD - 01/01/2025 4:34 PM EDT Layla Ochoa MD 01/02/2025 4:45 PM ECG 12 Lead Date/Time: 01/01/2025 4:34 PM Performed by: Layla Ochoa MD Authorized by: Layla Ochoa MD Comparison: not compared with previous ECG Previous ECG: no previous ECG available Rhythm: sinus rhythm BPM: 81 Comments: Late precordial R wave progression. Left axis deviation. Prolonged QT. Layla Ochoa MD ECG ORDERABLES Edited Result - Final * HOLTER MONITOR >7DAYS UP TO 15 DAYS ([id number]) (01/01/2025 4:26 PM EDT) Anatomical Region Laterality Modality Other Narrative 01/17/2025 10:10 AM EDT The baseline rhythm is normal sinus rhythm. Average heart rate 87 bpm. Mild sinus tachycardia noted. Rare PACs with 16 brief runs of SVT the longest of which was 10 beats. Rare PVCs with a 11 ventricular events the longest of which was a 13 beat run of AIVR at 10:41 PM on 01/07/2025. No sustained arrhythmias. No diary entries. Study Description Monitor placed on patient by Arely Caban on 01/01/2025 . Instructions were provided to patient on use of holter monitor and duration of monitoring. The monitor was scanned on 01/17/2025. The patient was monitored for 8 days 20 hours and 25 minutes. Indications for this exam include palpitations. Study Impressions The baseline rhythm is normal sinus rhythm. Average heart rate 87 bpm. Mild sinus tachycardia noted. Rare PACs with 16 brief runs of SVT the longest of which was 10 beats. Rare PVCs with a 11 ventricular events the longest of which was a 13 beat run of AIVR at 10:41 PM on 01/07/2025. No sustained arrhythmias. No diary entries. Layla Ochoa MD CV CARDIAC SERVICES ORD ERABLES Final Result documented in this encounter Visit Diagnoses Diagnosis Aortic stenosis, moderate- Primary Palpitations Coronary artery disease involving [place] coronary artery of [place] heart without angina pectoris Paroxysmal atrial fibrillation Atrial fibrillation Peripheral artery disease Failed back syndrome of lumbar spine Chronic pain syndrome Spondylosis of cervical region without myelopathy or radiculopathy Shortness of breath Ventricular tachycardia (paroxysmal) Paroxysmal ventricular tachycardia Palpitations Palpitations documented in this encounter Additional Health Concerns Assessment Noted Time PHQ-2 Depression Total Score: 1 10/24/19 24 2:19 PM EDT documented as of this encounter Care Teams Public Relations Analyst Relationship Specialty Start Date End Date Mustapha James MD [address] [address] PCP - General Family Medicine 01/02/24 documented as of this encounter
--- OUTSIDE RECORDS SUMMARY | 2025-01-01 16:30 | XMS_ITS | Encounter Summary ---
Author Organization [facility] Address [address] [place] [address] Care Team Providers Care Cytology Teacher Name Role Phone Mustapha James MD Primary Care Provider + Reason for Visit * Monitoring (Routine) - Closed Specialty Diagnoses / Procedures Referred By Contac t Referred To Contact Cardiology Diagnoses Failed back syndrome of lumbar spine Chronic pain syndrome Spondylosis of cervical region without myelopathy or radiculopathy Shortness of breath Ventricular tachycardia (paroxysmal) Palpitations Procedures Holter Monitor - 72 Hour Up To 15 Days Layla Ochoa MD [address] [facility] [address] [place] [address] Phone: tel: fax: [facility] [address] [facility] [address] [place] [address] Phone: tel: fax: Referral ID Status Reason Start Date Expiration Date Visits Re quested Visits Authorized [id number] Closed 01/01/2025 04/02/2026 1 1 Encounter Details Date Type Department Care Team (Latest Contact Info) Description 01/01/2025 4:30 PM EDT Ancillary Procedure [facility] [address] [facility] [address] [place] [address] Failed back syndrome of lumbar spine; Chronic pain syndrome; Spondylosis of cervical region without myelopathy or radiculopathy; Shortness of breath; Ventricular tachycardia (paroxysmal); Palpitations Social History Tobacco Use Types Packs/Day Years [...] 03/28/2025 1:45 PM EST Office Visit [facility] [address] [place] [phone] Mustapha James MD [address] [place] [address] 04/12/2025 1:30 PM EST Clinical Support [facility] [address] [place] [address] Chirag Mckee MD [address] [place] [address] documented as of this encounter Procedures Procedure Name Priority Date/Time Associated Diagnosis Comments HOLTER MONITOR >7DAYS UP TO 15 DAYS ([id number]) Routine 01/01/2025 4:26 PM EDT Failed back syndrome of lumbar spine Chronic pain syndrome Spondylosis of cervical region without myelopathy or radiculopathy Shortness of breath Ventricular tachycardia (paroxysmal) Palpitations documented in this encounter Results * HOLTER MONITOR >7DAYS UP TO 15 DAYS ([id number]) (01/01/2025 4:26 PM EDT) Anatomical Region Laterality [...] Description Monitor placed on patient by Arely Bautista on 01/01/2025 . Instructions were provided to [...] documented in this encounter Visit Diagnoses Diagnosis Failed back syndrome of lumbar spine Chronic pain syndrome Spondylosis of cervical region without myelopathy or radiculopathy Shortness of breath Ventricular tachycardia (paroxysmal) Paroxysmal ventricular tachycardia Palpitations documented in this encounter Additional Health Concerns Assessment Noted Time PHQ-2 Depression Total Score: 1 10/24/19 24 2:19 PM EDT documented as of this encounter Care Teams Cytology Teacher Relationship Specialty Start Date End Date Mustapha James MD [address] [place] [address] PCP - General Family Medicine 01/02/24 documented as of this encounter
--- OUTSIDE RECORDS SUMMARY | 2025-01-15 07:32 | XMS_ITS | Encounter Summary ---
Author Organization [facility] Address [address] [place] [address] Care Team Providers Care Tennis Camp Instructor Name Role Phone Mustapha James MD Primary [...] or Stress Agent if Necessary Per Protocol RI ECHO TRANSTHORC R-T 2D W/WO M-MODE REC F-UP/LMTD RI ECHO TTHRC R-T 2D W/WO M-MODE COMPLETE REST&ST RI ECHO TTHRC R-T 2D W/WO M-MODE REST&STRS CONT ECG Layla Ochoa MD [address] [facility] [address] [facility] [address] [place] [address] Phone: tel: fax: [facility] [address] [place] [address] Phone: tel: Referral ID Status Reason Start Date Expiration Date Visits Re quested Visits Authorized [id number] Closed 01/01/2025 04/02/2026 1 1 Reason for Visit * Diagnostic Imaging (Routine) - Closed Specialty Diagnoses / Procedures Referred By Contac t Referred To Contact Diagnoses Failed back syndrome of lumbar spine Chronic pain syndrome Spondylosis of cervical region without myelopathy or radiculopathy Shortness of breath Ventricular tachycardia (paroxysmal) Palpitations Procedures Adult Stress Echo W/ Cont or Stress Agent if Necessary Per Protocol RI ECHO TRANSTHORC R-T 2D W/WO M-MODE REC F-UP/LMTD RI ECHO TTHRC R-T 2D W/WO M-MODE COMPLETE REST&ST RI ECHO TTHRC R-T 2D W/WO M-MODE REST&STRS CONT ECG Layla Ochoa MD [address] [facility] [address] [place] [address] Phone: tel: fax: [facility] [address] [place] [address] Phone: tel: Referral ID Status Reason Start Date Expiration Date Visits Re quested Visits Authorized [id number] Closed 01/01/2025 04/02/2026 1 1 Encounter Details Date Type Department Care Team (Latest Contact Info) Description 01/15/2025 7:32 AM EDT - 01/15/2025 11:59 PM EDT Hospital Encounter [facility] [address] [facility] [address]rd [place] [address] Palpitations Discharge Disposition: Home or Self Care Social [...] Sign Reading Time Taken Comments Blood Pressure 89/50 01/15/2025 8:41 AM EDT Pulse 136 01/15/2025 8:41 AM EDT Temperature - - Respiratory Rate - - Oxygen Saturation 94% 01/15/2025 8:14 AM EDT Inhaled Oxygen Concentration - - Weight 85.8 kg (189 lb 2.5 oz) 01/15/2025 7:58 A M EDT Height 160 cm (5' 3 ) 01/15/2025 7:58 AM EDT Body Mass Index 33.51 01/15/2025 7:58 AM EDT documented in this encounter Medications at Time of Discharge albuterol sulfate HFA 108 (90 Base) MCG/ACT inhaler 08/30/2022 aspirin 81 MG EC tablet Take 1 tablet by mouth Daily. baclofen (LIORESAL) 10 MG tabletIndications:F ibromyalgia Take 1 tablet by mouth Every Night. 30 tablet 2 07/21/2023 cetirizine (zyrTEC) 10 MG tablet Take 1 tablet by mouth Daily. clopidogrel (PLAVIX) 75 MG tablet 02/27/2022 coenzyme Q10 50 MG capsule capsule Take by mouth Daily. diazePAM (VALIUM) 5 MG tabletIndications:G eneralized anxiety disorder Take 1 tablet by mouth Every 6 (Six) Hours As Needed for Anxiety. 120 tablet 2 12/27/2024 famotidine (PEPCID) 20 MG tablet Take 1 tablet by mouth 2 (Two) Times a Day. fluticasone (FLONASE) 50 MCG/ACT nasal spray Administer 2 sprays into the nostril(s) as directed by provider Daily. Fluticasone-Umeclid in-Vilant (Trelegy Ellipta) 100-62.5-25 MCG/ACT inhalerIndications: Panlobular emphysema Inhale 1 puff Daily. 1 each 11 06/25/2022 lansoprazole (PREVACID) 30 MG capsule Take 1 capsule by mouth Daily. 30 capsule 11 06/08/2024 levothyroxine (SYNTHROID, LEVOTHROID) 50 MCG tabletIndications:A cquired hypothyroidism TAKE 1 TABLET BY MOUTH ONCE DAILY 30 tablet 4 11/28/2024 lisinopril (PRINIVIL,ZESTRIL) 20 MG tablet TAKE 1 TABLET BY MOUTH ONCE DAILY 30 tablet 11 05/30/2024 metoprolol succinate XL (TOPROL-XL) 50 MG 24 hr tabletIndications:C oronary artery disease involving [place] coronary artery of [place] heart without angina pectoris Take 1.5 tablets by mouth Daily. 45 tablet 11 07/24/2024 montelukast (SINGULAIR) 10 MG tablet 04/29/2022 nitroglycerin (NITROSTAT) 0.4 MG SL tabletIndications:C oronary artery disease involving [place] coronary artery of [place] heart without angina pectoris TAKE ONE TABLET BY MOUTH UNDER TONGUE NEEDED FOR PAIN DIRECTED 25 tablet 1 07/03/2024 nystatin-triamcinol one (MYCOLOG II) 465541-0.1 UNIT/GM-% creamIndications:In tertrigo Apply 1 Application topically to the appropriate area as directed 2 (Two) Times a Day. 60 g 1 06/08/2024 Repatha SureClick solution auto-injector SureClick injection 08/03/2021 spironolactone (ALDACTONE) 25 MG tablet Take 1 tablet by mouth Daily. torsemide (DEMADEX) 20 MG tablet Take 1 tablet by mouth Daily. 30 tablet 10/19/2024 Bempedoic Acid 180 MG tabletIndications:C oronary artery disease involving [place] coronary artery of [place] heart without angina pectoris Take 1 tablet by mouth Daily. 30 tablet 11 01/24/2024 01/29/20 25 HYDROcodone-acetami nophen (NORCO) 7.5-325 MG per tabletIndications:F jennifer back syndrome of lumbar spine,Spondylosis of lumbar region without myelopathy or radiculopathy,Arthr itis of lumbar spine Take 1 tablet by mouth Every 8 (Eight) Hours As Needed for Moderate Pain. 90 tablet 12/27/2024 01/29/20 25 vitamin D (ERGOCALCIFEROL) 1.25 MG (48994 UT) capsule capsule TAKE 1 CAPSULE BY MOUTH 1 (ONE) TIME PER WEEK. 5 capsule 2 10/31/2024 01/29/20 25 documented as of this encounter Plan of Treatment Upcoming Encounters Date Type Department Care Team (Late st Contact Info) Description 03/28/2025 1:45 PM EST Office Visit [facility] [address] [place] [place] [address] Mustapha James MD [address] [place] [address] 04/12/2025 1:30 PM EST Clinical Support [facility] [address] [place] [address] Chirag Mckee MD [address] [place] [address] documented as of this encounter Procedures Procedure Name Priority Date/Time Associated Diagnosis Comments SE QUAD ONLY W/ DOBUTAMINE Routine 01/15/2025 9:11 AM EDT Palpitations documented in this encounter Results * SE QUAD ONLY W/ DOBUTAMINE (01/15/2025 9:11 AM EDT) Pathologist [facility] CV STRESS PROTOCOL 1 Pharmacologic Stage 1 [...] couplets. Recovery arrhythmias comment: Ventricular trigeminy Test Flakeboard Line Tender ECG [place] Study Quality The study is technically adequate for diagnosis. Layla Ochoa MD CV ECHO ORDERABLES Sheyla l Result documented in this encounter Visit Diagnoses Diagnosis Palpitations documented in this encounter Administered Medications Inactive Administered Medications - up to 3 most recent administrations Medication Order MAR Action Action Date Dose Rate Site DOBUTamine 250 mg in dextrose (D5W) 5 % 250 mL infusion 5-20 mcg/kg/min 85.8 kg (25.74-102.96 mL/hr, rounded to 25.7-103 mL/hr), Intravenous, Titrated, Starting on Tue01/15/25 at 0814, Initiate infusion at 5 mcg/kg/min & titrate by 5 mcg/kg/min after 2 minutes to 10 mcg/kg/min. After 2 minutes increase from 10mcg/kg/min to 20 mcg/kg/min. Maximum dose of 20 mcg/kg/min. Central line preferred, if unable use large bore IV access with frequent nurse monitoring FOR DOBUTAMINE STRESS TEST FOR GRADIENTS. Caution: Look alike/sound alike drug alert. Central line preferred, if unavailable use large bore IV access with frequent nurse monitoring of IV site. Rate/Dose Change 01/15/2025 8:33 AM EDT 20 mcg/kg/min 103 mL/hr Rate/Dose Change 01/15/2025 8:30 AM EDT 10 mcg/kg/min 51.5 mL/hr New Bag 01/15/2025 8:27 AM EDT 5 mcg/kg/min 25.7 mL/hr documented in this encounter Additional Health Concerns Assessment Noted Time PHQ-2 Depression Total Score: 1 10/24/19 24 2:19 PM EDT documented as of this encounter Care Teams Tennis Camp Instructor Relationship Specialty Start Date End Date Mustapha James MD [address] [place] [address] [place] [address] PCP - General Family Medicine 01/02/24 documented as of this encounter
--- OUTSIDE RECORDS SUMMARY | 2025-01-15 09:35 | XMS_ITS | Encounter Summary ---
Author Organization [facility] Address [address] [place] [address] Care Team Providers Care Senior It Assistant Name Role Phone Mustapha James MD Primary Care Provider + Reason for Referral * Diagnostic Imaging (Routine) - Closed Specialty Diagnoses / Procedures Referred By Contac t Referred To Contact Diagnoses Coronary artery disease involving [place] coronary artery of [place] heart without angina pectoris Aortic stenosis, moderate Procedures Duplex Carotid Ultrasound CAR Layla Ochoa MD [address] [facility] [address] [place] [address] Phone: tel: fax: [address] [address] Phone: tel: Referral ID Status Reason Start Date Expiration Date Visits Re quested Visits Authorized [id number] Closed 01/02/2025 04/03/2026 1 1 Reason for Visit * Diagnostic Imaging (Routine) - Closed Specialty Diagnoses / Procedures Referred By Contac t Referred To Contact Diagnoses Coronary artery disease involving [place] coronary artery of [place] heart without angina pectoris Aortic stenosis, moderate Procedures Duplex Carotid Ultrasound Layla Coffman MD [address] [place] [address] Phone: tel: fax: [address] [place] [address] Phone: tel: Referral ID Status Reason Start Date Expiration Date Visits Re quested Visits Authorized [id number] Closed 01/02/2025 04/03/2026 1 1 Encounter Details Date Type Department Care Team (Latest Contact Info) Description 01/15/2025 9:35 AM EDT - 01/15/2025 11:59 PM EDT Hospital Encounter [facility] [address] [facility] [address] [place] [address] Coronary artery disease involving [place] coronary artery of [place] heart without angina pectoris; Aortic stenosis, moderate Discharge Disposition: Home or Self Care Social [...] 1 capsule by mouth Daily. 30 capsule 06/08/2024 levothyroxine (SYNTHROID, LEVOTHROID) 50 MCG tabletIndications:A cquired hypothyroidism TAKE 1 TABLET BY MOUTH ONCE DAILY 30 tablet 4 11/28/2024 lisinopril (PRINIVIL,ZESTRIL) 20 MG tablet TAKE 1 TABLET BY MOUTH ONCE DAILY 30 tablet 11 05/30/2024 metoprolol succinate XL (TOPROL-XL) 50 MG 24 hr tabletIndications:C oronary artery disease involving [place] coronary artery of [place] heart without angina pectoris Take 1.5 tablets by mouth Daily. 45 tablet 11 07/24/2024 montelukast (SINGULAIR) 10 MG tablet 04/29/2022 nitroglycerin (NITROSTAT) 0.4 MG SL tabletIndications:C oronary artery disease involving [place] coronary artery of [place] heart without angina pectoris TAKE ONE TABLET BY MOUTH UNDER TONGUE NEEDED FOR PAIN DIRECTED 25 tablet 1 07/03/2024 nystatin-triamcinol one (MYCOLOG II) 207655-3.1 UNIT/GM-% creamIndications:In tertrigo Apply 1 Application topically to the appropriate area as directed 2 (Two) Times a Day. 60 g 1 06/08/2024 Repatha SureClick solution auto-injector SureClick injection 08/03/2021 spironolactone (ALDACTONE) 25 MG tablet Take 1 tablet by mouth Daily. torsemide (DEMADEX) 20 MG tablet Take 1 tablet by mouth Daily. 30 tablet 10/19/2024 Bempedoic Acid 180 MG tabletIndications:C oronary artery disease involving [place] coronary artery of [place] heart without angina pectoris Take 1 tablet [...] 01/29/20 25 vitamin D (ERGOCALCIFEROL) 1.25 MG (19112 UT) capsule capsule TAKE 1 CAPSULE BY MOUTH 1 (ONE) TIME PER WEEK. 5 capsule 2 10/31/2024 01/29/20 25 documented as of this encounter Plan of Treatment Upcoming Encounters Date Type Department Care Team (Late st Contact Info) Description 03/28/2025 1:45 PM EST Office Visit [facility] [address] [place] [address] Mustapha James MD [address] [place] [address] 04/12/2025 1:30 PM EST Clinical Support [facility] [address] [place] [phone] Chirag Mckee MD [address] [place] [address] documented as of this encounter Procedures Procedure Name Priority Date/Time Associated Diagnosis Comments DUPLEX CAROTID BILATERAL CAR - PERFORMED PROCEDURE Routine 01/15/2025 10:10 AM EDT Coronary artery disease involving [place] coronary artery of [place] heart without angina pectoris Aortic stenosis, moderate documented in this encounter Results * DUPLEX CAROTID BILATERAL CAR - PERFORMED PROCEDURE (01/15/2025 10:10 AM EDT) Prox CCA PSV 74.7 cm/sec Prox CCA EDV 9.3 cm/sec Right Mid CCA PSV 67.0 cm/sec right Mid CCA EDV 8.2 cm/sec Dist CCA PSV 80.7 cm/sec Dist CCA EDV 14.3 cm/sec Prox ICA PSV 152.9 cm/sec Prox ICA EDV 25.2 cm/sec Mid ICA PSV 129.4 cm/sec Mid ICA EDV 19.3 cm/sec Dist ICA PSV 100.8 cm/sec Dist ICA EDV 16.8 cm/sec Prox ECA PSV 109.2 cm/sec Prox ECA EDV 7.6 cm/sec Vertebral A PSV 54.0 cm/sec Vertebral A EDV 6.0 cm/sec Prox CCA PSV 79.1 cm/sec Prox CCA EDV 14.9 cm/sec left Mid CCA PSV 75.0 cm/sec left Mid CCA EDV 13.7 cm/sec Dist CCA PSV 85.7 cm/sec Dist CCA EDV 13.7 cm/sec Prox ICA PSV 57.5 cm/sec Prox ICA EDV 14.3 cm/sec Mid ICA PSV 70.9 cm/sec Mid ICA EDV 14.8 cm/sec Dist ICA PSV 93.1 cm/sec Dist ICA EDV 27.3 cm/sec Prox ECA PSV 101.9 cm/sec Prox ECA EDV 0.00 cm/sec Vertebral A PSV 74.6 cm/sec Vertebral A EDV 12.9 cm/sec Prox SCLA PSV 158.1 cm/sec ICA/CCA ratio 1.89 Prox SCLA PSV 130.0 cm/sec ICA/CCA ratio 1.09 Right arm BP 126/64 mmHg Left arm BP 114/65 mmHg Anatomical Region Laterality Modality Ultrasound Narrative 01/15/2025 1:00 PM EDT Right internal carotid artery demonstrates a less than 50% stenosis. Antegrade right vertebral flow. Left internal carotid artery demonstrates a less than 50% stenosis. Antegrade left vertebral flow. Mild to moderate heterogeneous carotid atherosclerosis bilaterally. Study Impression Right ICA: Imaging indicates <50% stenosis. Left ICA: Imaging indicates <50% stenosis. Study Findings Right CCA Prox: Irregular heterogeneous plaque present. Right CCA Mid: Irregular heterogeneous plaque present. Right CCA Dist: Irregular heterogeneous plaque present. Right Carotid Bulb: Irregular heterogeneous plaque present. Right ICA Prox: Irregular heterogeneous plaque present. Right ICA Mid: No plaque visualized. Right ICA Dist: No plaque visualized. Right ECA: Irregular heterogeneous plaque present. Right Vertebral: Antegrade flow noted. Left CCA Prox: Irregular heterogeneous plaque present. Left CCA Mid: Irregular heterogeneous plaque present. Left CCA Dist: Irregular heterogeneous plaque present. Left Carotid Bulb: Irregular heterogeneous plaque present. Left ICA Prox: Irregular heterogeneous plaque present. Left ICA Mid: No plaque visualized. Left ICA Dist: No plaque visualized. Left ECA: Irregular heterogeneous plaque present. Left Vertebral: Antegrade flow noted. No elevated velocities detected in bilateral ICA. Antegrade flow detected in Vertebral Arteries, bilaterally. No prior exams for comparison. Additional Study Details The study is technically adequate for diagnosis. The quality of the study is limited due to patient positioning. us Layla Ochoa MD CV VASCULAR ORDERABLES Final Result documented in this encounter Visit Diagnoses Diagnosis Coronary artery disease involving [place] coronary artery of [place] heart without angina pectoris Aortic stenosis, moderate documented in this encounter Additional Health Concerns Assessment Noted Time PHQ-2 Depression Total Score: 1 10/24/19 24 2:19 PM EDT documented as of this encounter Care Teams Senior It Assistant Relationship Specialty Start Date End Date Mustapha James MD [facility] [address] [place] [address] PCP - General Family Medicine 01/02/24 documented as of this encounter
--- OUTSIDE RECORDS SUMMARY | 2025-01-22 11:07 | XMS_ITS | Encounter Summary ---
Author Organization [facility] Address [address] [place] [address] Care Team Providers Care Investigative Reporter Name Role Phone Mustapha James MD Primary Care Provider + Encounter Details Date Type Department Care Team (Latest Contact Info) Description 01/22/2025 11:07 AM EDT - 01/22/2025 11:59 PM EDT Hospital Encounter [facility] [address] [place] [address] 3rd [place] [address] Encounter for examination for normal comparison or control in clinical research program Discharge Disposition: Home or Self Care Social [...] 24 hr tabletIndications:C oronary artery disease involving [place] coronary artery of [place] heart without angina pectoris Take 1.5 tablets by mouth Daily. 45 tablet 11 07/24/2024 montelukast (SINGULAIR) 10 MG tablet 04/29/2022 nitroglycerin (NITROSTAT) 0.4 MG SL tabletIndications:C oronary artery disease involving [place] coronary artery of [place] heart without angina pectoris TAKE ONE TABLET BY MOUTH UNDER TONGUE NEEDED FOR PAIN DIRECTED 25 tablet 1 07/03/2024 nystatin-triamcinol one (MYCOLOG II) 443369-8.1 UNIT/GM-% creamIndications:In tertrigo Apply 1 Application topically to the appropriate area as directed 2 (Two) Times a Day. 60 g 1 06/08/2024 Repatha SureClick solution auto-injector SureClick injection 08/03/2021 spironolactone (ALDACTONE) 25 MG tablet Take 1 tablet by mouth Daily. torsemide (DEMADEX) 20 MG tablet Take 1 tablet by mouth Daily. 30 tablet 10/19/2024 Bempedoic Acid 180 MG tabletIndications:C oronary artery disease involving [place] coronary artery of [place] heart without angina pectoris Take 1 tablet [...] 01/29/20 25 vitamin D (ERGOCALCIFEROL) 1.25 MG (65299 UT) capsule capsule TAKE 1 CAPSULE BY MOUTH 1 (ONE) TIME PER WEEK. 5 capsule 2 10/31/2024 01/29/20 25 documented as of this encounter Plan of Treatment Upcoming Encounters Date Type Department Care Team (Late st Contact Info) Description 03/28/2025 1:45 PM EST Office Visit [facility] [address] [address] Mustapha James MD [address] [place] [id number] 04/12/2025 1:30 PM EST Clinical Support [facility] [address] [place] [address] Chirag Mckee MD [address] [place] [address] documented as of this encounter Procedures Procedure Name Priority Date/Time Associated Diagnosis Comments OUTSIDE INVASIVE CARDIOLOGY STUDY Routine 01/22/2025 11:07 AM EDT Encounter for examination for normal comparison or control in clinical research program documented in this encounter Results * OUTSIDE INVASIVE CARDIOLOGY STUDY (01/22/2025 11:07 AM EDT) Narrative SYSTEMGENERATED, DOCUMENTATION - 01/22/2025 11:07 AM EDT This procedure was auto-finalized with no dictation required. Miguel Montero MD CV CARDIAC SERVICES ORDERABLES Final Result documented in this encounter Visit Diagnoses Diagnosis Encounter for examination for normal comparison or control in clinical research program documented in this encounter Additional Health Concerns Assessment Noted Time PHQ-2 Depression Total Score: 1 10/24/19 24 2:19 PM EDT documented as of this encounter Care Teams Investigative Reporter Relationship Specialty Start Date End Date Mustapha James MD [address] [place] [address] PCP - General Family Medicine 01/02/24 documented as of this encounter
--- OUTSIDE RECORDS SUMMARY | 2025-01-22 11:07 | XMS_ITS | Encounter Summary ---
Author Organization [facility] Address [address] [place] [address] Care Team Providers Care Resort Host Name Role Phone Mustapha James MD Primary Care Provider + Encounter Details Date Type Department Care Team (Latest Contact Info) Description 01/22/2025 11:07 AM EDT - 01/22/2025 11:59 PM EDT Hospital Encounter [facility] [address] [place] [address] [address] [place] [address] Encounter for examination for normal [...] 24 hr tabletIndications:C oronary artery disease involving [place] coronary artery of [place] heart without angina pectoris Take 1.5 tablets by mouth Daily. 45 tablet 11 07/24/2024 montelukast (SINGULAIR) 10 MG tablet 04/29/2022 nitroglycerin (NITROSTAT) 0.4 MG SL tabletIndications:C oronary artery disease involving [place] coronary artery of [place] heart without angina pectoris TAKE ONE TABLET BY MOUTH UNDER TONGUE NEEDED FOR PAIN DIRECTED 25 tablet 1 07/03/2024 nystatin-triamcinol one (MYCOLOG II) 840665-9.1 UNIT/GM-% creamIndications:In tertrigo Apply 1 Application topically to the appropriate area as directed 2 (Two) Times a Day. 60 g 1 06/08/2024 Repatha SureClick solution auto-injector SureClick injection 08/03/2021 spironolactone (ALDACTONE) 25 MG tablet Take 1 tablet by mouth Daily. torsemide (DEMADEX) 20 MG tablet Take 1 tablet by mouth Daily. 30 tablet 10/19/2024 Bempedoic Acid 180 MG tabletIndications:C oronary artery disease involving [place] coronary artery of [place] heart without angina pectoris Take 1 tablet [...] 01/29/20 25 vitamin D (ERGOCALCIFEROL) 1.25 MG (76060 UT) capsule capsule TAKE 1 CAPSULE BY MOUTH 1 (ONE) TIME PER WEEK. 5 capsule 2 10/31/2024 01/29/20 25 documented as of this encounter Plan of Treatment Upcoming Encounters Date Type Department Care Team (Late st Contact Info) Description 03/28/2025 1:45 PM EST Office Visit [facility] [address] [address] Mustapha James MD [address] [id number] 04/12/2025 1:30 PM EST Clinical Support [facility] [address] [place] [address] Chirag Mckee MD [address] [place] [address] documented as of this encounter Procedures Procedure [...] documented as of this encounter Care Teams Resort Host Relationship Specialty Start Date End Date Mustapha James MD [address] [place] [address] PCP - General Family Medicine 01/02/24 documented as of this encounter
--- OUTSIDE RECORDS SUMMARY | 2025-01-29 09:30 | XMS_ITS | Encounter Summary ---
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 * Consultation (Routine) - Closed Specialty Diagnoses / Procedures Referred By Contact Referred To Contact Cardiothoracic Surgery Diagnoses Severe calcific aortic valve stenosis Procedures SC OFFICE/OUTPATIENT NEW MODERATE MDM 45 MINUTES Layla Ochoa MD [address] [facility] [address] [place] [address] Phone: tel: fax: Miguel Montero MD [address] [facility] [address] [place] [address] Phone: tel: fax: Referral ID Status Reason Start Date Expiration Date V isits Requested Visits Authorized [id number] Closed Specialty Services Required 01/15/2025 04/16/2026 1 1 Encounter Details Date Type Department Care Team (Late st Contact Info) Description 01/29/2025 9:30 AM EDT Office Visit [facility] CARDI[facility]ERY [address] [facility] [address] [place] [address] Daniel Quezada APRN [address] [facility] [address] [place] [address] Severe aortic stenosis (Primary Dx) Social History Tobacco Use Types [...] Sign Reading Time Taken Comments Blood Pressure 108/53 01/29/2025 9:17 AM EDT Pulse 76 01/29/2025 9:17 AM EDT Temperature 36.4 C (97.6 F) 01/29/2025 9:17 AM EDT Respiratory Rate - - Oxygen Saturation 95% 01/29/2025 9:1 7 AM EDT Inhaled Oxygen Concentration - - Weight 82.1 kg (181 lb) 01/29/2025 9:17 AM EDT Height 160 cm (5' 3 ) 01/29/2025 9:17 AM EDT patient reports Body Mass Index 32.06 01/29/2025 9:17 AM EDT documented in this encounter Progress Notes * Daniel Quezada APRN - 01/29/2025 9:30 AM EDT Images from the original note were not included. [facility] New Patient Office Note Date of Encounter: 01/29/2025 Name: Jodi Byrne : 1955 Referred By: Layla Ochoa,* PCP: Mustapha James MD Chief Complaint: Chief Complaint Patient presents with ??? 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 Subjective History of Present Illness: Jodi Byrne is a 69 y.o. female referred to Dr. Montero for TAVR consult. PMH: hypothyroidism, obesity, anxiety, fibromyalgia, degenerative disc disease, pulmonary emphysema, GERD, NSCLC (s/p Cyberknife, followed by Dr. Mckee), PAD (s/p left SFA Dr. Miller, s/p right renal artery stent, AAA dissection s/p repair Dr. Chavez, s/p lithotripsy to left SFA and left popliteal Dr. Chavez), HTN, CAD s/p multiple angioplasty and stenting (06/2019, 06/2019, 2020, 08/2024, 08/2024). Patient initially had TAVR workup completed at the [facility] with Dr. Lamb; however, she was advised she did not meet the criteria at that time. Further workup by her metal treater in May 2024, Dr. Melody Cornejo, revealed low-flow low gradient aortic stenosis with KARISHMA indexed to body surface areaof 0.39 cm??/m??. A dobutamine stress echo was completed revealing calcifications of the aortic valve, KARISHMA remaining under 1 cm?? throughout the dobutamine infusion, AV mean gradient 41 mmHg at 20 mcg of dobutamine, peak velocity 413 cm/s at 20 mcg of dobutamine, and no change in stroke-volume was noted. CTA TAVR was completed prior at and revealed bilateral common iliac stents and right external iliac artery stenting, focal stenosis of proximal right common iliac artery and atherosclerotic c alcifications of the carotid arteries. Carotid duplex reports <50% stenosis bilaterally. She hasfull dentures and does not routinely see a dentist. She has complaints of ongoing fatigue, shortness of breath, chest pain, and lower extremity edema. Review of Systems: Review of Systems Constitutional: Positive for malaise/fatigue. Negative for chills, decreased appetite, diaphoresis,fever, night sweats and weight loss. HENT: Negative for congestion, hoarse voice and sore throat. Cardiovascular: Positive for dyspnea on exertion, leg swelling and palpitations. Negative for chestpain, irregular heartbeat, near-syncope, orthopnea, paroxysmal nocturnal dyspnea and syncope. Respiratory: Positive for cough. Negative for hemoptysis, shortness of breath, sleep disturbances due to breathing, snoring, sputum production and wheezing. Hematologic/Lymphatic: Negative for adenopathy and bleeding problem. Bruises/bleeds easily. Skin: Positive for color change. Negative for dry skin, itching, poor wound healing and rash. Musculoskeletal: Positive for falls. Negative for muscle weakness. Gastrointestinal: Negative. Negative for abdominal pain, anorexia, constipation, diarrhea, nausea and vomiting. Genitourinary: Positive for frequency. Negative for dysuria. Neurological: Positive for headaches, loss of balance and numbness. Negative for difficulty with concentration, dizziness, paresthesias, seizures and weakness. Psychiatric/Behavioral: Negative for altered mental status, depression and memory loss. The patientis nervous/anxious. The patient does not have insomnia. Allergic/Immunologic: Negative. Negative for persistent infections. I have reviewed the following portions of the patient's history: problem list, current medications,allergies, past surgical history, past medical history, past social history, past family history, and ROS and confirm it's accurate. Allergies: Allergies Allergen Reactions ??? Atorvastatin Myalgia ??? Contrast Dye (Echo Or Unknown Ct/Mr) Anaphylaxis, Hives and Swelling Iodine dye but no iodine allergy ??? Rosuvastatin Myalgia ??? Simvastatin Myalgia ??? Demerol [Meperidine] Other (See Comments) nonresponsive ??? Decongestant [Pseudoephedrine] Palpitations Medications: Current Outpatient Medications: ??? albuterol sulfate HFA 108 (90 Base) MCG/ACT inhaler, , Disp: , Rfl: ??? aspirin 81 MG EC tablet, Take 1 tablet by mouth Daily., Disp: , Rfl: ??? baclofen (LIORESAL) 10 MG tablet, Take 1 tablet by mouth Every Night., Disp: 30 tablet, Rfl: 2 ??? cetirizine (zyrTEC) 10 MG tablet, Take 1 tablet by mouth Daily., Disp: , Rfl: ??? clopidogrel (PLAVIX) 75 MG tablet, , Disp: , Rfl: ??? coenzyme Q10 50 MG capsule capsule, Take by mouth Daily., Disp: , Rfl: ??? diazePAM (VALIUM) 5 MG tablet, Take 1 tablet by mouth Every 6 (Six) Hours As Needed for Anxiety., Disp: 120 tablet, Rfl: 2 ??? famotidine (PEPCID) 20 MG tablet, Take 1 tablet by mouth 2 (Two) Times a Day., Disp: , Rfl: ??? fluticasone (FLONASE) 50 MCG/ACT nasal spray, Administer 2 sprays into the nostril(s) as directed by provider Daily., Disp: , Rfl: ??? Woacnpyemim-Fmhteytpe-Ozxiin (Trelegy Ellipta) 100-62.5-25 MCG/ACT inhaler, Inhale 1 puff Daily., Disp: 1 each, Rfl: 11 ??? HYDROcodone-acetaminophen (NORCO) 7.5-325 MG per tablet, TAKE 1 TABLET BY MOUTH EVERY 8 HOURS NEEDED FOR MODERATE PAIN., Disp: 90 tablet, Rfl: 0 ??? lansoprazole (PREVACID) 30 MG capsule, Take 1 capsule by mouth Daily., Disp: 30 capsule, Rfl: 11 ??? levothyroxine (SYNTHROID, LEVOTHROID) 50 MCG tablet, TAKE 1 TABLET BY MOUTH ONCE DAILY, Disp: 30 tablet, Rfl: 4 ??? lisinopril (PRINIVIL,ZESTRIL) 20 MG tablet, TAKE 1 TABLET BY MOUTH ONCE DAILY, Disp: 30 tablet,Rfl: 11 ??? metoprolol succinate XL (TOPROL-XL) 50 MG 24 hr tablet, Take 1.5 tablets by mouth Daily., Disp:45 tablet, Rfl: 11 ??? montelukast (SINGULAIR) 10 MG tablet, , Disp: , Rfl: ??? Nexletol 180 MG tablet, TAKE 1 TABLET BY MOUTH ONCE DAILY, Disp: 30 tablet, Rfl: 10 ??? nitroglycerin (NITROSTAT) 0.4 MG SL tablet, TAKE ONE TABLET BY MOUTH UNDER TONGUE NEEDED FORPAIN DIRECTED, Disp: 25 tablet, Rfl: 1 ??? nystatin-triamcinolone (MYCOLOG II) 986274-7.1 UNIT/GM-% cream, Apply 1 Application topically to the appropriate area as directed 2 (Two) Times a Day., Disp: 60 g, Rfl: 1 ??? Repatha SureClick solution auto-injector SureClick injection, , Disp: , Rfl: ??? spironolactone (ALDACTONE) 25 MG tablet, Take 1 tablet by mouth Daily., Disp: , Rfl: ??? torsemide (DEMADEX) 20 MG tablet, Take 1 tablet by mouth Daily., Disp: 30 tablet, Rfl: 0 ??? vitamin D (ERGOCALCIFEROL) 1.25 MG (42503 UT) capsule capsule, TAKE 1 CAPSULE BY MOUTH 1 (ONE) TIME PER WEEK., Disp: 5 capsule, Rfl: 1 History: Past Medical History: Diagnosis Date ??? A-fib ??? Anxiety ??? Arthritis ??? CAD (coronary artery disease) ??? Chronic kidney disease ??? COPD (chronic obstructive pulmonary disease) ??? Deep vein thrombosis ??? Fibromyalgia ??? Gastrointestinal bleed ??? GERD (gastroesophageal reflux disease) ??? History of colonic diverticulitis ??? Hyperlipidemia ??? Hypertension ??? Hypothyroidism ??? Lung cancer ??? UT (myocardial infarction) ??? Osteoporosis ??? Peptic ulceration ??? Peripheral vascular disease ??? Stroke Past Surgical History: Procedure Laterality Date ??? BACK SURGERY ??? CERVICAL DISC SURGERY 2014 ??? COLON SURGERY 2021 fistulas removed X 4 and reconstruction ??? CORONARY STENT PLACEMENT ??? CYBERKNIFE 04/14/2023 RUL lung ??? CYST REMOVAL Right cheek ??? HEMORRHOIDECTOMY x 10 ??? HYSTERECTOMY 1993 ??? KNEE ARTHROSCOPY Left 2003 ??? LUMBAR DISC SURGERY 2014 ??? OTHER SURGICAL HISTORY cardiac stents - unsure ??? OTHER SURGICAL HISTORY abdominal aortic stent ??? OTHER SURGICAL HISTORY left leg stent ??? RENAL ARTERY STENT ??? WRIST SURGERY Left Social History Socioeconomic History ??? Marital status: ??? Number of children: 2 Tobacco Use ??? Smoking status: Some Days Current packs/day: 0.00 Average packs/day: 0.5 packs/day for 50.0 years (25.0 ttl pk-yrs) Types: Cigarettes Start date: 04/26/1972 Last attempt to quit: 04/26/2022 Years since quittin.7 ??? Smokeless tobacco: Never ??? Tobacco comments: Pt is trying to quit. She usually smokes in response to stressfull events Vaping Use ??? Vaping status: Never Used Substance and Sexual Activity ??? Alcohol use: Not Currently ??? Drug use: Yes Types: Hydrocodone ??? Sexual activity: Defer Family History Problem Relation Age of Onset ??? Cirrhosis Mother ??? Cirrhosis Father ??? Hyperlipidemia Sister ??? Thyroid disease Sister ??? Hypertension Sister ??? Cancer Sister ovarian ??? Arthritis Sister ??? Hyperlipidemia Brother ??? Arthritis Brother Objective Imaging/Labs: Duplex Carotid Ultrasound CAR (01/15/2025 10:10) Interpretation Summary ??? Right internal carotid artery demonstrates a less than 50% stenosis. ??? Antegrade right vertebral flow. ??? Left internal carotid artery demonstrates a less than 50% stenosis. ??? Antegrade left vertebral flow. ??? Mild to moderate heterogeneous carotid atherosclerosis bilaterally. Adult Stress Echo W/ Cont or Stress Agent if Necessary Per Protocol (01/15/2025 09:11) Interpretation Summary ??? Patient reported chest discomfort described as feels like an elephant on my chest around minute 9:00 of recovery, scored as 7/10 on numeric pain scale. Patient then reported midsternal chest discomfort that was dull in nature at minute 11:00 of recovery, scored 4/10 on numeric pain scale, resolving to 0/10 by end of recovery. ??? SR-ST with rare PACs and occasional PVCs during exercise; frequent PVCs, ventricular couplet x1, ventricular trigeminy during recovery. ??? Normal hemodynamic response to dobutamine. ??? Less than [address] segment depression was seen with the infusion. ??? Baseline ejection fraction is 40-45%. With the dobutamine infusion the ejection fraction improved to 55%. ??? Severe aortic valve stenosis is present. ??? During the dobutamine infusion the stroke-volume remained unchanged however the ejection fraction improved significantly. ??? The patient's aortic valve mean gradient at baseline was 21 and increased to 42 with the dobutamine infusion. ??? The peak aortic velocity increased from 3.17 m/s to 4.07 m/s with the infusion ??? The aortic valve area increased very slightly however respiratory variation made accurate LVOT VTI capture difficult. ??? I think that this patient would benefit from TAVR. CT Angiogram Chest (08/15/2024 09:20) Personally reviewed CT Abdomen Pelvis With Contrast (08/15/2024 09:20) FINDINGS: Severe aortic valve calcifications. Quantification of Aortic Valve Calcium Score: 1574 Volume: 1359 Aortic Root Measurements 3-Cusp view: CLEMENTINE 16 degrees; METAL CUT OFF SAW OPERATOR 7 degrees Annulus area: 4.48 cm?? Annulus maximum diameter: 27 mm Annulus minimum [...] image [id number]). No focal liver lesion. Pancreas, spleenand both kidneys are unremarkable. No hydronephrosis.No retroperitoneal, mesenteric or pelvic lymphadenopathy. Diverticulosis of sigmoid colon. No bowel obstruction. No free fluid in the abdomen and pelvis. Severe degenerative changes spine. Cervical fixation plate in place. Lumbar and sacral fixation plate in place with laminectomy changes at L3, L4, L5 vertebrae. Impression TAVR measurements as detailed above. Atherosclerotic disease of the aortoiliac arteries. Bilateral common iliac and right external iliacartery stents. Focal stenosis of the proximal right [...] CT imaging is recommended. Coronary artery disease. Cardiac Catheterization/Vascular Study (09/18/2024 10:38) Conclusion: 1. Previously placed proximal RCA stent is patent 2. 70% ostial RCA stenosis s/p successful PCI with placement of an overlapping 3.5 x 12 mm [place] drug-eluting stent. Ostium flared to 4.0. 3. Serial 70% diffuse lesions of the mid-distal RCA s/p successful PCI with placement of overlapping 3.0 x 26 mm and 2.75 x 30 mm [place] drug-eluting stents (proximal-distal). Recommendations: 1. Post-PCI EKG. Post vascular care as ordered. Discharge today. 2. DAPT with ASA and Plavix for 12 months. 3. High intensity statin therapy. 4. Aggressive secondary prevention including formal exercise regimen, dietary counseling, weight loss, blood pressure, blood glucose control, and tobacco cessation, as applicable. Cardiac Catheterization/Vascular Study (08/30/2024 17:38) Conclusion: 1. 90% ostial left main stenosis s/p successful PCI with placement of a 4.5 x 15 mm [place]it drug-eluting stent (overlapping with previously placed stent distally and 1-2 mm of stent extending in the aorta) 2. 70% heavily calcified distal left main severe in-stent re-stenosis s/p balloon angioplasty with a 3.5 NC balloon 3. 90% ostial RCA stenosis s/p successful PCI with placement of a 3.0 x 12 mm and 3.0 x 18 mm [place] Man[place]it drug-eluting stent. Proximal-mid stent post-dilated to [...] stage mid RCA intervention in 2-3 weeks. EXTERNAL MEDICAL RECORDS - SCAN - EXT [facility]-04/11/2025-CARDIOLOGY REPORT (12/21/2024) Physical Exam: Vitals: 01/29/25 0917 BP: 108/53 BP Location: Right arm Patient Position: Sitting Pulse: 76 Temp: 97.6 ??F (36.4 ??C) SpO2: 95% Weight: 82.1 kg (181 lb) Height: 160 cm (63 ) Comment: patient reports Body mass index is 32.06 kg/m??. Physical Exam Vitals and nursing note reviewed. Constitutional: General: She is not in acute distress. HENT: Head: Normocephalic and atraumatic. Neck: Vascular: No carotid bruit or JVD. Cardiovascular: Rate and Rhythm: Normal rate and regular rhythm. Pulses: Radial pulses are 2+ on the right side and 2+ on the left side. Dorsalis pedis pulses are 2+ on the right side and 2+ on the left side. Posterior tibial pulses are 2+ on the right side and 2+ on the left side. Heart sounds: Murmur heard. Pulmonary: Effort: Pulmonary effort is normal. Breath sounds: Normal breath sounds. Musculoskeletal: Right lower le+ Edema present. Left lower le+ Edema present. Skin: General: Skin is warm. Neurological: Mental Status: She is alert. Gait: Gait is intact. Psychiatric: Attention and Perception: Attention normal. Behavior: Behavior is cooperative. Assessment / Plan Jodi Byrne is a 69 y.o. female referred to Dr. Montero for TAVR consult. Assessment / Plan: 1. Severe aortic stenosis PMH: hypothyroidism, obesity, anxiety, fibromyalgia, degenerative disc disease, pulmonary emphysema, GERD, NSCLC (s/p Cyberknife, followed by Dr. Mckee), PAD (s/p left SFA Dr. Miller, s/p right renalartery stent, AAA dissection s/p repair Dr. Chavez, s/p lithotripsy to left SFA and left popliteal Dr. Chavez), HTN, CAD s/p multiple angioplasty and stenting (06/2019, 06/2019, 2020, 08/2024, 08/2024 ) Complaints of ongoing fatigue, shortness of breath, chest pain, and lower extremity edema Echo 05/2024 potential low flow low gradient aortic stenosis with KARISHMA indexed to BSDA 0.39 cm2/m2 Dobutamine stress echo 01/15/2025 Aortic valve calcifications KARISHMA remained under 1 cm2 throughout dobutamine infusion AV mean gradient 41 mmHg at 20 mcg dobutamine Peak velocity 413 cm/s at 20 mcg dobutamine No change in stroke volume CTA TAVR performed at bilateral common iliac stents and right external iliac artery stenting, focal stenosis of proximal right common iliac artery, and atherosclerotic calcifications of the carotid arteries (personally reviewed right common carotid to be 50-60% stenosis) Cardiac cath performed at 08/2024 with stent placement, no additional cath necessary per cardiology Carotid duplex <50% stenosis bilaterally Full dentures, no evidence of infection Per Keli Aaron, TAVR coordinator, per Dr. Montero, patient is not a candidate for transfemoral TAVR Discussed transcarotid TAVR approach as well as SAVR including procedure details, post op expectations, and potential complications. Patient would be poor candidate for SAVR approach with operative mortality 8.67% and morbidity and mortality at 19.8%. She would be an acceptable risk for TAVR. Personally reviewed CTA imaging and right common carotid 50-60% stenosis on personal review. Will need to evaluate to determine if transcarotid approach would be appropriate for the patient. She has also previously undergone cyberknife therapy and is scheduled for a NM PET scan due to lung nodule and lymphadenopathy Will discuss with Dr. Montero. Return per his recommendations Patient Education: Risks of surgery were discussed with the patient including: pain, bleeding, infection, blood clots, airleak, kidney damage, stroke, heart attack, or . Patient understands risks and agrees to proceed. Follow Up: Return for per Dr. Montero recommendations . Or sooner for any further concerns or worsening sign and symptoms. If unable to reach us in the office please dial 911 or go to the nearest emergency department. Daniel Quezada APRN [facility] Time Spent: I spent 120 minutes caring for Jodi on this date of service. This time includes time spent by me in the following activities: preparing for the visit, reviewing tests, obtaining and/or reviewing a separately obtained history, performing a medically appropriate examination and/or evaluation, counseling and educating the patient/family/caregiver, ordering medications, tests, or procedures, referring and communicating with other health care transition mgr, documenting information in the medical record, independently interpreting results and communicating that information with the nahed ent/family/caregiver, and care coordination. documented in this encounter Plan of Treatment Upcoming Encounters Date Type Department Care Team (Late st Contact Info) Description 03/28/2025 1:45 PM EST Office Visit [facility] [address] [address] Mustapha James MD [address] [address] 04/12/2025 1:30 PM EST Clinical Support [facility] [address] [place] [address] Chirag Mckee MD [address] [place] [address] Scheduled Referrals Name Type Priority Associated Diagnoses Order Schedule Ambulatory Referral to Cardiothoracic Surgery Outpatient Referral Routine Severe calcific aortic valve stenosis Ordered: 01/15/2025 documented as of this encounter Visit Diagnoses Diagnosis Severe aortic stenosis- Primary Aortic valve disorders documented in this encounter Additional Health Concerns Assessment Noted Time PHQ-2 Depression Total Score: 1 10/24/19 24 2:19 PM EDT documented as of this encounter Care Teams Chef Head Relationship Specialty Start Date End Date Mustapha James MD [address] [place] [address] PCP - General Family Medicine 01/02/24 documented as of this encounter
--- OUTSIDE RECORDS SUMMARY | 2025-02-01 05:05 | XMS_ITS | Encounter Summary ---
Author Organization [facility] Address [address] [place] [address] Care Team Providers Care Trust Administrative Assistant Name Role Phone Mustapha James MD Primary Care Provider + Encounter Details Date Type Department Care Team (Late st Contact Info) Description 02/01/2025 5:05 AM EDT Hospital Encounter [facility] ON[facility] [address] [address] Social History Tobacco Use Types Packs/Day Years [...] Description 03/28/2025 1:45 PM EST Office Visit [facility] [address] [place] [address] Mustapha James MD [address] [place] [address] 04/12/2025 1:30 PM EST Clinical Support [facility] [address] [place] [phone] Chirag Mckee MD [address] [place] [address] documented as of this encounter Visit Diagnoses Not on filedocumented in this encounter Additional Health Concerns Assessment Noted Time PHQ-2 Depression Total Score: 1 10/24/19 24 2:19 PM EDT documented as of this encounter Care Teams Trust Administrative Assistant Relationship Specialty Start Date End Date Mustapha James MD [address] [place] [address] PCP - General Family Medicine 01/02/24 documented as of this encounter
--- OUTSIDE RECORDS SUMMARY | 2025-02-04 08:24 | XMS_ITS | Encounter Summary ---
Author Organization [facility] Address [address] [place] [id number] Care Team Providers Care Zigzag Tunnel Elastic Operator Name Role Phone Mustapha James MD Primary Care Provider + Reason for Referral * MRI/CAT/PET Scan (Routine) - Closed Specialty Diagnoses / Procedures Referred By Contac t Referred To Contact Radiology Diagnoses Lung nodule Procedures NM Pet Skull Base To Mid Thigh Chirag Mckee MD [address] [place] [address] Phone: tel: fax: [address] [address] Phone: tel: Referral ID Status Reason Start Date Expiration Date Visits Re quested Visits Authorized [id number] Closed 12/07/2024 03/08/2026 2 2 Reason for Visit * MRI/CAT/PET Scan (Routine) - Closed Specialty Diagnoses / Procedures Referred By Contac t Referred To Contact Radiology Diagnoses Lung nodule Procedures NM Pet Skull Base To Mid Thigh Chirag Mckee MD [address] [place] [address] Phone: tel: fax: [address] [address] Phone: tel: Referral ID Status Reason Start Date Expiration Date Visits Re quested Visits Authorized [id number] Closed 12/07/2024 03/08/2026 2 2 Encounter Details Date Type Department Care Team (Latest Contact Info) Description 02/04/2025 8:24 AM EDT - 02/04/2025 11:59 PM EDT Hospital Encounter [facility] [place] [address] [place] [address] Lung nodule Discharge Disposition: Home or Self Care Social [...] 1 puff Daily. 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 90 tablet 01/28/2025 lansoprazole (PREVACID) 30 MG capsule Take 1 capsule by mouth Daily. 30 capsule 11 06/08/2024 levothyroxine (SYNTHROID, LEVOTHROID) 50 MCG tabletIndications:A cquired hypothyroidism TAKE 1 TABLET BY MOUTH ONCE DAILY 30 tablet 4 11/28/2024 lisinopril (PRINIVIL,ZESTRIL) 20 MG tablet TAKE 1 TABLET BY MOUTH ONCE DAILY 30 tablet 11 05/30/2024 metoprolol succinate XL (TOPROL-XL) 50 MG 24 hr tabletIndications:C oronary artery disease involving [place] coronary artery of [place] heart without angina pectoris Take 1.5 tablets by mouth Daily. 45 tablet 11 07/24/2024 montelukast (SINGULAIR) 10 MG tablet 04/29/2022 Nexletol 180 MG tabletIndications:C oronary artery disease involving [place] coronary artery of [place] heart without angina pectoris TAKE 1 TABLET BY MOUTH ONCE DAILY 30 tablet 10 01/28/2025 nitroglycerin (NITROSTAT) 0.4 MG SL tabletIndications:C oronary artery disease involving [place] coronary artery of [place] heart without angina pectoris TAKE ONE TABLET BY MOUTH UNDER TONGUE NEEDED FOR PAIN DIRECTED 25 tablet 1 07/03/2024 nystatin-triamcinol one (MYCOLOG II) 194863-2.1 UNIT/GM-% creamIndications:In tertrigo Apply 1 Application topically to the appropriate area as directed 2 (Two) Times a Day. 60 g 1 06/08/2024 Repatha SureClick solution auto-injector SureClick injection 08/03/2021 spironolactone (ALDACTONE) 25 MG tablet Take 1 tablet by mouth Daily. torsemide (DEMADEX) 20 MG tablet Take 1 tablet by mouth Daily. 30 tablet 10/19/2024 vitamin D (ERGOCALCIFEROL) 1.25 MG (18739 UT) capsule capsule TAKE 1 CAPSULE BY MOUTH 1 (ONE) TIME PER WEEK. 5 capsule 1 01/28/2025 documented as of this encounter Plan of Treatment Upcoming Encounters Date Type Department Care Team (Late st Contact Info) Description 03/28/2025 1:45 PM EST Office Visit [facility] [address] [facility] [place] [phone] Mustapha James MD [address] [facility] [place] [address] 04/12/2025 1:30 PM EST Clinical Support [facility] [address] [place] [address] Chirag Mckee MD [address] [facility] [place] [address] documented as of this encounter Procedures Procedure Name Priority Date/Time Associated Diagnosis Comments NM PET/CT SKULL BASE TO MID THIGH STAT 02/04/2025 10:30 AM EDT Lung nodule POCT GLUCOSE FINGERSTICK Routine 02/04/2025 8:54 AM EDT documented in this encounter Results * NM PET/CT Skull Base to Mid Thigh (02/04/2025 10:30 AM EDT) Anatomical Region Laterality Modality Head and Neck, Spine, Abdome n, Chest, Pelvis, Lower Leg, Thigh N/A Nuclear Medicine 02/04/2025 11:3 3 AM EDT Impressions 02/04/2025 12:12 PM EDT Impression: 1.There is an amorphous, slightly lobular opacity in the posterior right upper lobe in the area of the known treated malignancy. There is low-grade metabolic activity of 3.[address] appearance is unchanged since 11/29/2024 but the lobular component has increased since 08/15/2024 concerning for residual or recurrent active malignancy. 2.There is hypermetabolic activity in a right supraclavicular node, a right prevascular node and a questionable right hilar node. These are concerning for metastatic disease. 3.No evidence of metastatic disease in the head, abdomen, pelvis or osseous structures. Electronically Signed: Suresh Nelson DO 02/04/2025 12:12 PM EDT Workstation ID: [id number] Narrative 02/04/2025 12:12 PM EDT FDG NM PET/CT SKULL BASE TO MID THIGH Date of Exam: 02/04/2025 8:45 AM EDT Indication: lung nodule. History of non-small cell right lung cancer initially diagnosed in June 2022 status post stereotactic radiation therapy Comparison: Chest CT dated 11/29/2024, 07/07/2022 from [facility] in [place], [place], CT of the chest abdomen pelvis with contrast dated 08/15/2024 from [facility]. PET/CT from [facility] dated 02/14/2023 comparison is also made with chest CTs without contrast from [facility] dated 02/14/2024 and 08/18/2023 Technique: 13.63 mCi of F-18 FDG was administered intravenously. PET imaging was obtained from skull base to mid-thigh approximately 60 minutes after radiotracer injection. A low dose non contrast CT was obtained for attenuation correction and anatomic localization. Fused PET-CT and 3D MIP reconstructions were utilized for image interpretation. Fasting blood glucose level: 110 mg/dl. Reference uptake values: Mediastinum: 3.1 SUVmax Liver: 4.0 SUVmax Normalization method: Body Weight Findings: Head/Neck: No suspicious metabolic activity. Physiologic activity is present. No cervical adenopathy. Thorax: Within the posterior right upper lobe abutting the major fissure there is a Morphis slightly lobular opacity in the area of the known treated malignancy. There is slight lobularity in the central portion of this mass measuring 3.1 x 2.2 cm there is also pleural thickening in the lateral chest wall in this area. There is low- grade metabolic activity of 3.3. The CT appearance of this density is unchanged since 11/29/2024 but the lobular component has increased since 08/15/2024 concerning for residual or recurrent active malignancy. Within the anterior portion of the upper lobes there are several 2 and 3 mm subpleural nodules have been stable since at least June 2022 and are considered benign. No new pulmonary nodules. No other abnormal pulmonary uptake. There is hypermetabolic activity in a right supraclavicular node and a right prevascular node and possibly the right hilar node. Uptake within the right hilar node is 3.3 which is just above the background mediastinal uptake. An obvious an enlarged right hilar node is not seen on this noncontrast study. There is clearly focal uptake in a high right paratracheal node up to 3.8 SUV max (axial image 79) corresponding to a node measuring 8 mm in short axis. On axial image 69 there is a a supraclavicular node measuring 8.5 mm in short axis and 4.4 SUV max. Abdomen and Pelvis: No suspicious metabolic activity. Physiologic activity is present. Right renal artery stent and abdominal aortic biiliac endograft is present. No suspicious adenopathy or focal abnormal activity to indicate metastatic disease. Musculoskeletal System and Extremities: No suspicious metabolic activity. Physiologic activity is present. there is hardware in the cervical spine and lumbar spine. No acute bony abnormalities or aggressive appearing focal osseous lesions. Procedure Note Suresh Nelson, DO - 02/04/2025 FDG NM PET/CT SKULL BASE TO MID THIGH Date of Exam: 02/04/2025 8:45 AM EDT Indication: lung nodule. History of non-small cell right lung cancerinitially diagnosed in June 2022 status post stereotactic radiationtherapy Comparison: Chest CT dated 11/29/2024, 07/07/2022 from [facility] in [place], [place], CT of the chest abdomen pelvis withcontrast dated 08/15/2024 from [facility]. PET/CT from [facility] dated 02/14/2023omparison is also made with chest CTs without contrast from [facility] dated 02/14/2024 and 08/18/2023 Technique: 13.63 mCi of F-18 FDG was administered intravenously. PETimaging was obtained from skull base to mid-thigh approximately 60 minutesafter radiotracer injection. A low dose non contrast CT was obtained forattenuation correction and anatomic localization. Fused PET-CT and 3D MIP reconstructions were utilized forimage interpretation. Fasting blood glucose level: 110 mg/dl. Reference uptake values: Mediastinum: 3.1 SUVmax Liver: 4.0 SUVmax Normalization method: Body Weight Findings: Head/Neck: No suspicious metabolic activity. Physiologic activity ispresent. No cervical adenopathy. Thorax: Within the posterior right upper lobe abutting the major fissurethere is a Morphis slightly lobular opacity in the area of the knowntreated malignancy. There is slight lobularity in the central portion ofthis mass measuring 3.1 x 2.2 cm there is also pleural thickening in the lateral chest wall in this area. Thereis low- grade metabolic activity of 3.3. The CT appearance of this densityis unchanged since 11/29/2024 but the lobular component has increased since08/15/2024 concerning for residual or recurrent active malignancy. Within the anterior portion of the upperlobes there are several 2 and 3 mm subpleural nodules have been stablesince at least June 2022 and are considered benign. No new pulmonarynodules. No other abnormal pulmonary uptake. There is hypermetabolic activity in a right supraclavicular node and aright prevascular node and possibly the right hilar node. Uptake withinthe right hilar node is 3.3 which is just above the background mediastinaluptake. An obvious an enlarged right hilar node is not seen on this noncontrast study. There is clearly focaluptake in a high right paratracheal node up to 3.8 SUV max (axial image79) corresponding to a node measuring 8 mm in short axis. On axial image69 there is a a supraclavicular node measuring 8.5 mm in short axis and 4.4 SUV max. Abdomen and Pelvis: No suspicious metabolic activity. Physiologicactivity is present. Right renal artery stent and abdominal aortic biiliacendograft is present. No suspicious adenopathy or focal abnormal activityto indicate metastatic disease. Musculoskeletal System and Extremities: No suspicious metabolic activity.Physiologic activity is present. there is hardware in the cervicalspine and lumbar spine. No acute bony abnormalities or aggressiveappearing focal osseous lesions. IMPRESSION: Impression: 1.There is an amorphous, slightly lobular opacity in the posterior rightupper lobe in the area of the known treated malignancy. There is low-grademetabolic activity of 3.[address] appearance is unchanged since11/29/2024 but the lobular component has increased since 08/15/2024 concerning for residual or recurrent activemalignancy. 2.There is hypermetabolic activity in a right supraclavicular node, aright prevascular node and a questionable right hilar node. These areconcerning for metastatic disease. 3.No evidence of metastatic disease in the head, abdomen, pelvis orosseous structures. Electronically Signed: Suresh Nelson DO 02/04/2025 12:12 PM EDT Workstation ID: [id number] Chirag Mckee MD [facility] NM ORDERABLES Final Resul t * POC Glucose Once (02/04/2025 8:54 AM EDT) Glucose 110 70 - 130 mg/dL 02/04/2025 8:57 AM EDT [facility] Comment:Serial Number: [id number]: [id number] Blood 02/04/2025 8:54 AM EDT 02/04/2025 8:57 AM EDT Chirag Mckee MD POINT OF CARE TEST ORDERABLES Final Result [facility]
[address] [facility] [address] [place] [address], documented in this encounter Visit Diagnoses Diagnosis Lung nodule Other diseases of lung, not elsewhere classified documented in this encounter Administered Medications Inactive Administered Medications - up to 3 most recent administrations Medication Order MAR Action Action Date Dose Rate Site fludeoxyglucose F18 injection 1 dose 1 dose, Intravenous, Once in Imaging, On 02/04/25 at 1000, For 1 dose, Millicuries: 13.63 Given 02/04/2025 8:57 AM EDT 1 dose documented in this encounter Additional Health Concerns Assessment Noted Time PHQ-2 Depression Total Score: 1 10/24/19 2:19 PM EDT documented as of this encounter Care Teams Zigzag Tunnel Elastic Operator Relationship Specialty Start Date End Date Mustapha James MD [address] [place] [address] PCP - General Family Medicine 01/02/24 documented as of this encounter
--- OUTSIDE RECORDS SUMMARY | 2025-02-04 08:25 | XMS_ITS | Encounter Summary ---
Author Organization [facility] Address [address] [place] [address] Care Team Providers Care Boatbuilder Wood Name Role Phone Mustapha James MD Primary Care Provider + Reason for Visit * MRI/CAT/PET Scan (Routine) - Closed Specialty Diagnoses / Procedures Referred By Contac t Referred To Contact Radiology Diagnoses Lung nodule Procedures NM Pet Skull Base To Mid Thigh Chirag Mckee MD [address] [place] [address] Phone: tel: fax: [facility] [address] [place] [address] Phone: tel: Referral ID Status Reason Start Date Expiration Date Visits Re quested Visits Authorized [id number] Closed 12/07/2024 03/08/2026 2 2 Encounter Details Date Type Department Care Team (Latest Contact Info) Description 02/04/2025 8:25 AM EDT - 02/04/2025 11:59 PM EDT Hospital Encounter [facility] [place] [address] [place] [address] Discharge Disposition: Home or Self Care Social [...] 24 hr tabletIndications:C oronary artery disease involving [place] coronary artery of platinum heart without angina pectoris Take 1.5 tablets by mouth Daily. 45 tablet 11 07/24/2024 montelukast (SINGULAIR) 10 MG tablet 04/29/2022 Nexletol 180 MG tabletIndications:C oronary artery disease involving [place] coronary artery of platinum heart without angina pectoris TAKE 1 TABLET BY MOUTH ONCE DAILY 30 tablet 10 01/28/2025 nitroglycerin (NITROSTAT) 0.4 MG SL tabletIndications:C oronary artery disease involving [place] coronary artery of platinum heart without angina pectoris TAKE ONE TABLET BY MOUTH UNDER TONGUE NEEDED FOR PAIN DIRECTED 25 tablet 1 07/03/2024 nystatin-triamcinol one (MYCOLOG II) 250353-6.1 UNIT/GM-% creamIndications:In tertrigo Apply 1 Application topically to the appropriate area as directed 2 (Two) Times a Day. 60 g 1 06/08/2024 Repatha SureClick solution auto-injector SureClick injection 08/03/2021 spironolactone (ALDACTONE) 25 MG tablet Take 1 tablet by mouth Daily. torsemide (DEMADEX) 20 MG tablet Take 1 tablet by mouth Daily. 30 tablet 10/19/2024 vitamin D (ERGOCALCIFEROL) 1.25 MG (44247 UT) capsule capsule TAKE 1 CAPSULE BY MOUTH 1 (ONE) TIME PER WEEK. 5 capsule 1 01/28/2025 documented as of this encounter Plan of Treatment Upcoming Encounters Date Type Department Care Team (Late st Contact Info) Description 03/28/2025 1:45 PM EST Office Visit [facility] [address] [place] [phone] Mustapha James MD [address] [place] [address] 04/12/2025 1:30 PM EST Clinical Support [facility] [address] [place] [address] Chirag Mckee MD [address] [place] [address] documented as of this encounter Procedures Procedure Name Priority Date/Time Associated Diagnosis Comments NM PET/CT SKULL BASE TO MID THIGH STAT 02/04/2025 10:30 AM EDT Lung nodule documented in this encounter Results * NM [...] DO 02/04/2025 12:12 PM EDT Workstation ID: [id number] Narrative 02/04/2025 12:12 PM EDT FDG NM PET/CT SKULL BASE TO MID THIGH Date of Exam: 02/04/2025 8:45 AM EDT Indication: lung nodule. History of non-small cell right lung cancer initially diagnosed in June 2022 status post stereotactic radiation therapy Comparison: Chest CT dated 11/29/2024, 07/07/2022 from [facility] in [place], [place], CT of the chest abdomen pelvis with contrast dated 08/15/2024 from [facility]. PET/CT from [facility] [place] dated 02/14/2023 comparison is also made with chest CTs without contrast from [facility] dated 02/14/2024 and 08/18/2023 Technique: 13.63 mCi [...] Comparison: Chest CT dated 11/29/2024, 07/07/2022 from [facility] in [place], [place], CT of the chest abdomen pelvis withcontrast dated 08/15/2024 from [facility]. PET/CT from [facility] [place] dated 02/14/2023omparison is also made with chest CTs without contrast from [facility] dated 02/14/2024 and 08/18/2023 Technique: 13.63 [...] DO 02/04/2025 12:12 PM EDT Workstation ID: [id number] us Chirag Mckee MD IMG NM ORDERABLES Final Resul t documented in this encounter Visit Diagnoses Not on filedocumented in this encounter Additional Health Concerns Assessment Noted Time PHQ-2 Depression Total Score: 1 10/24/19 24 2:19 PM EDT documented as of this encounter Care Teams Boatbuilder Wood Relationship Specialty Start Date End Date Mustapha James MD [address] [place] [address] PCP - General Family Medicine 01/02/24 documented as of this encounter
--- OUTSIDE RECORDS SUMMARY | 2025-02-04 11:00 | XMS_ITS | Encounter Summary ---
Author Organization [facility] Address [address] [place] [address] Care Team Providers Care Yard Coordinator Name Role Phone Mustapha James MD Primary Care Provider + Reason for Visit * Reason Comments Lung Cancer Follow Up Encounter Details Date Type Department Care Team (Late st Contact Info) Description 02/04/2025 11:00 AM EDT Office Visit [facility] [address] [place] [address] [address] [place] [address] Chirag Mckee MD [address] [place] [address] NSCLC of right lung (Primary Dx) Social [...] Sign Reading Time Taken Comments Blood Pressure 109/46 02/04/2025 10:51 AM EDT Pulse 76 02/04/2025 10:51 AM EDT Temperature 36.6 C (97.9 F) 02/04/2025 10:51 AM EDT Respiratory Rate 16 02/04/2025 10:51 AM EDT Oxygen Saturation 92% 02/04/2025 10:51 AM EDT Inhaled Oxygen Concentration - - Weight 83.6 kg (184 lb 3.2 oz) 02/04/2025 10:51 AM EDT Height 160 cm (5' 2.99 ) 02/04/2025 10:51 AM EDT Body Mass Index 32.64 02/04/2025 10:51 AM EDT documented in this encounter Progress Notes * Chirag Mckee MD - 02/04/2025 11:00 AM EDT FOLLOW UP NOTE PATIENT: Jodi Byrne : 1955 COMPLETION DATE: 04/14/2023 DIAGNOSIS: NSCLC of right lung - Stage IB (cT2a, cN0, cM0) BRIEF HISTORY: Jodi Byrne is a very [...] the near future as well. The patient previously had some concern for some enlarged adenopathy and was sent for a PET scan. The patient had [address] Lamb and was having some trouble recovering from that. The patient has a somewhat recovered her performance status but is still struggling with all of her ADLs. The patient had a PET scan today and reports to discuss the results. Patient does report some difficulty with shortness of breath. She also reports some continued increased sputum production. Past Medical History: Diagnosis Date A-fib Anxiety Arthritis CAD (coronary artery disease) Chronic kidney disease COPD (chronic obstructive pulmonary disease) Deep vein thrombosis Fibromyalgia Gastrointestinal bleed GERD (gastroesophageal reflux disease) History of colonic diverticulitis Hyperlipidemia Hypertension Hypothyroidism Lung cancer VA (myocardial infarction) Osteoporosis Peptic ulceration Peripheral vascular disease Stroke Past Surgical History: Procedure Laterality Date BACK SURGERY CERVICAL DISC SURGERY 2014 COLON SURGERY 2021 fistulas removed X 4 and reconstruction CORONARY STENT PLACEMENT CYBERKNIFE 04/14/2023 RUL lung CYST REMOVAL Right cheek HEMORRHOIDECTOMY x 10 HYSTERECTOMY 1994 KNEE ARTHROSCOPY Left 2003 LUMBAR DISC SURGERY 2014 OTHER SURGICAL HISTORY cardiac stents - unsure OTHER SURGICAL HISTORY abdominal aortic stent OTHER SURGICAL HISTORY left leg stent RENAL ARTERY STENT WRIST SURGERY Left Cancer-related family history includes Cancer in her sister. MEDICATIONS: Current Outpatient Medications: albuterol sulfate HFA 108 (90 Base) MCG/ACT inhaler, , Disp: , Rfl: aspirin 81 MG EC tablet, Take 1 tablet by mouth Daily., Disp: , Rfl: cetirizine (zyrTEC) 10 MG tablet, Take 1 tablet by mouth Daily., Disp: , Rfl: clopidogrel (PLAVIX) 75 MG tablet, , Disp: , Rfl: diazePAM (VALIUM) 5 MG [...] directed by provider Daily., Disp: , Rfl: Mdkmeguyvlv-Efcyrsere-Zpxgmz (Trelegy Ellipta) 100-62.5-25 MCG/ACT inhaler, Inhale 1 [...] 10 MG tablet, , Disp: , Rfl: Nexletol 180 MG tablet, TAKE 1 TABLET BY MOUTH ONCE DAILY, Disp: 30 tablet, Rfl: 10 nitroglycerin (NITROSTAT) 0.4 MG SL tablet, TAKE ONE TABLET BY MOUTH UNDER TONGUE NEEDED FOR PAIN DIRECTED, Disp: 25 tablet, Rfl: 1 Repatha SureClick solution auto-injector SureClick injection, , Disp: , Rfl: spironolactone (ALDACTONE) 25 MG tablet, Take 1 tablet by mouth Daily., Disp: , Rfl: torsemide (DEMADEX) 20 MG tablet, Take 1 tablet by mouth Daily., Disp: 30 tablet, Rfl: 0 baclofen (LIORESAL) 10 MG tablet, Take 1 tablet by mouth Every Night. (Patient not taking: Reportedon 02/04/2025), Disp: 30 tablet, Rfl: 2 coenzyme Q10 50 MG capsule capsule, Take by mouth Daily. (Patient not taking: Reported on 02/04/2025), Disp: , Rfl: nystatin-triamcinolone (MYCOLOG II) 169634-7.1 UNIT/GM-% cream, Apply 1 Application topically to the appropriate area as directed 2 (Two) Times a Day. (Patient not taking: Reported on 02/04/2025), Disp: 60 g, Rfl: 1 vitamin D (ERGOCALCIFEROL) 1.25 MG (79873 UT) capsule capsule, TAKE 1 CAPSULE BY MOUTH 1 (ONE) TIMEPER WEEK. (Patient not taking: Reported on 02/04/2025), Disp: 5 capsule, Rfl: 1 Review of Systems: Review of Systems Constitutional: Positive for fatigue. Negative for appetite change, chills, fever and unexpected weight change. Eyes: Negative. Respiratory: Positive for chest tightness, cough (productive), shortness of breath and wheezing. Negative for hemoptysis. Cardiovascular: Positive for chest pain (a couple days ago, describes as pressure used Nitro with relief) and leg swelling. Gastrointestinal: Positive for constipation. Negative for abdominal pain, diarrhea, nausea and vomiting. Endocrine: Negative. Genitourinary: Negative. Musculoskeletal: Positive for back pain, neck pain and neck stiffness. Skin: Negative. Neurological: Positive for headaches (relates to stress and anticipation of appointments). Negativefor dizziness. Hematological: Bruises/bleeds easily. Psychiatric/Behavioral: Negative for depression and sleep disturbance. The patient is nervous/anxious. A full 14 point review of systems was performed and was negative except as noted in the HPI. Physical Exam: Physical Exam Vitals and nursing note reviewed. Constitutional: Appearance: She is well-developed. Comments: Pale HENT: Head: Normocephalic and atraumatic. Eyes: Conjunctiva/sclera: Conjunctivae normal. Pupils: Pupils are equal, round, and reactive to light. Neck: Comments: No obviously enlarged cervical or supraclavicular LAD. Cardiovascular: Comments: Patient well perfused. Non cyanotic. No prominent JVD. No pedal edema Pulmonary: Effort: Pulmonary effort is normal. Breath sounds: Normal breath sounds. No stridor. No wheezing. Abdominal: General: There is no distension. Palpations: Abdomen is soft. Musculoskeletal: General: Normal range of motion. Cervical back: Normal range of motion and neck supple. Comments: Patient moves all extremities spontaneously. Skin: General: Skin is warm and dry. Neurological: Mental Status: She is alert and oriented to person, place, and time. Comments: Coordination intact. Psychiatric: Behavior: Behavior normal. Thought Content: Thought content normal. Judgment: Judgment normal. VITAL SIGNS: Vitals: 02/04/25 1051 BP: 109/46 Pulse: 76 Resp: 16 Temp: 97.9 ??F (36.6 ??C) TempSrc: Oral SpO2: 92% Weight: 83.6 kg (184 lb 3.2 oz) Height: 160 cm (62.99 ) PainSc: 7 PainLoc: Back Karnofsky score: 80 The following portions of the patient's history were reviewed and updated as appropriate: allergies, current medications, past family history, past medical history, past social history, past surgicalhistory and problem list. I reviewed the patient's radiation treatment plan. I reviewed the patient's pretreatment PET scans. NM PET/CT Skull Base to Mid Thigh Result Date: 02/04/2025 Impression: 1.There is an amorphous, slightly lobular opacity in the posterior right upper lobe in the area of the known treated malignancy. There is low-grade metabolic activity of 3.[address] appearance is unchanged since 11/29/2024 but the lobular component has increased since 08/15/2024 concerning for residual or recurrent active malignancy. 2.There is hypermetabolic activity in a right s upraclavicular node, a right prevascular node and a questionable right hilar node. These are concerning for metastatic disease. 3.No evidence of metastatic disease in the head, abdomen, pelvis or osseous structures. Electronically Signed: Suresh Nelson DO 02/04/2025 12:12 PM EDT Workstation ID: [id number] IMPRESSION: The patient is a very pleasant 69-year-old female with what appears to be a clinical stage IB (cT2, cN0, cM0) adenocarcinoma of the right upper lobe of lung. This is biopsy-proven. She underwent definitive treatment with a course of CyberKnife SBRT completed on 04/14/2023. The patient's PET scan today showed a good response to the treated lesion in the lung however the patient did have some concerning hypermetabolic adenopathy in some mediastinal and supraclavicular adenopathy. The patient will be difficult for cardiac clearance. I did discuss case with Dr. Alonzo who recommended clearance from Dr. Lamb prior to undergoing a bronchoscopy. Does look like this lesion wouldbe targetable with an EBUS. Contacted Dr. Lamb's office and we will attempt to talk to him when possible to discuss her cardiac clearance and how to proceed with that. Patient will also have to meet with anesthesia to discuss options. I did discuss case with Dr. Lema medical oncology to see if there are any other alternatives toa biopsy such as molecular testing or CT DNA if she is unable to have a biopsy. I did contact the patient on 02/05/2025 to discuss these results as well with the patient and plansfor moving forward. I spent 35 minutes in the patient's case today. RECOMMENDATIONS: Adenocarcinoma of the right upper lobe of lung -Spiculated -Biopsy-proven adenocarcinoma -PD-L1 less than 1% in 2022 -Hypermetabolic on PET/CT -No evidence of mediastinal or distant disease -Right groin area on PET scan likely represents previous stent insertion site -Previously evaluated by CT surgery and borderline candidate for surgery -Status post CyberKnife SBRT 48 Jose in 4 fractions -Completed 06/15/2022 -Continued evolution and increased thickening in the area of the previously treated lesion -Enlarged lymph nodes on the last CT scan -Noncontrasted given patient's listed allergy to contrast dye and also gadolinium Concern for osmani recurrence of lung cancer -Status post SBRT 48 Jose in 4 fractions 06/15/2022. -PET scan 02/04/2025 shows some interval decrease in size of lymph nodes in the mediastinum supraclavicular region however the patient's lymph nodes were moderately hypermetabolic with SUV of about 4. - Recommended biopsy if possible. -Discussed with Dr. Alonzo and the patient will need cardiac clearance from Dr. Lamb to have a biopsy would otherwise technically be a reasonable candidate for it given the location of the enlarged lymph node and station 4R - I have placed a call to Dr. Lamb's office to discuss getting her back in for cardiac clearance. - Discussed potential alternative such as CT DNA or NexGeneration sequencing with Dr. Lema if she is unable to have a biopsy at all in an effort to confirm the recurrence. - Would likely not be a great candidate for immunotherapy given essentially negative PD-L1 uptake at the time of her initial diagnosis. - It sounds like CT DNA may be an option however would be fairly inconsistent. Cough and sputum production - Recommend course of doxycycline Chirag Mckee MD Errors in dictation may reflect use of voice recognition software and not all errors in athletics director may have been detected prior to signing. documented in this encounter Plan of Treatment Upcoming Encounters Date Type Department Care Team (Late st Contact Info) Description 03/28/2025 1:45 PM EST Office Visit [facility] [address] [place] [id number] Mustapha James MD [address] [place] [address] 04/12/2025 1:30 PM EST Clinical Support [facility] [address] [place] [address] Chirag Mckee MD [address] [place] [address] documented as of this encounter Visit Diagnoses Diagnosis NSCLC of right lung- Primary documented in this encounter Additional Health Concerns Assessment Noted Time PHQ-2 Depression Total Score: 1 10/24/19 24 2:19 PM EDT documented as of this encounter Care Teams Yard Coordinator Relationship Specialty Start Date End Date Mustapha James MD [address] [place] [address] PCP - General Family Medicine 01/02/24 documented as of this encounter
--- NOTE | 2025-02-19 12:50 | PC.NURSE ---
1250-collected labs via venipuncture stick in left ac with butterfly needle;pt to appt
[2025-02-19 12:59] LABS: Hematocrit 32.4 % (37.0-47.0); Hemoglobin 10.9 g/dL (12.2-16.2); Immature Granulocytes % 0.8 %; Mean Corpuscular HGB Conc 33.6 g/dL (31.8-35.4); Mean Corpuscular Hemoglobin 33.5 pg (27.0-31.2); Mean Corpuscular Volume 99.7 fl (81-99); Nucleated Red Blood Cells % 0 %; Platelet Count 271 K/mm3 (142-424); Red Blood Count 3.25 M/mm3 (4.20-5.40); Red Cell Distribution Width-SD 56.8 fL; White Blood Count 8.8 K/mm3 (4.8-10.8)
--- OUTSIDE RECORDS SUMMARY | 2025-02-19 13:09 | XMS_ITS | Encounter Summary ---
Author Organization [employer] ([place], [place], [place], [place]) Address [address] [place] [address] Care Team Providers Care Aircraft Life Support Fitter Name Role Phone Unavailable Primary Care Provider Unavailabl e Encounter Details Date Type Department Care Team (Late st Contact Info) Description 02/12/2019 Transcribed Document [facility] Family Medicine [facility] [place] [address] ProviderRegina MD [address] [place] [address] Social History Tobacco Use Types [...] Document Reviewed: 05/14/2011 ExitCare? Patient Information ?2013 [employer]. Angiogram, Care After This sheet gives you [...] and water are not available, use hand chain splitter. ? Change your dressing as told by [...] contrast dye from your body. ??? Take mhae-iaw-ianmiaj and prescription medicines only as told by [...] 10/28/2005 Document Revised: 03/16/2017 Document Reviewed: 03/16/2017 [employer] Patient Education ? 2019 [employer] Moderate Conscious Sedation, Adult, Care After [...] you are awake and alert. ??? Take saaj-hse-tsjlocp and prescription medicines only as told by [...] 01/30/2014 Document Revised: 09/13/2016 Document Reviewed: 07/31/2016 [employer] Patient Education ? 2019 [employer] documented in this encounter Plan of Treatment Not on file documented as of this encounter Visit Diagnoses Not on filedocumented in this encounter
--- OUTSIDE RECORDS SUMMARY | 2025-02-19 13:09 | XMS_ITS | Encounter Summary ---
Author Organization [employer] ([place], [place], [place], [place]) Address [address] [place] [address] Care Team Providers Care Certified Meeting Professional Name Role Phone Unavailable Primary Care Provider Unavailabl e Encounter Details Date Type Department Care Team (Late st Contact Info) Description 02/09/2019 Transcribed Document [facility] Family Medicine [facility] [place] [address] ProviderRegina MD [address] [place] [address] Social History Tobacco Use Types Packs/Day [...] Source : Measured Height Entry Format : [place] Height, Inches : 63 Inch(Converted to: 5 ft 3 Inch, 160.02 cm) Clinical Height : 160.02 cm Weight Source : Standing scale Weight Entry Format : [place] Clinical Dosing Weight : 85.91 kg Weight, Pounds : 189 lb Body Surface Area (BSA) : 1.89 m2 Body Mass Index : 33.6 kg/m2 (HI) [facility] Body Weight : 52 kg ABRAHAM STOKES RN - 02/12/2019 11:04 EDT Health Histories Smoking Status : 4 or less cigarettes(less than 1/4 pack)/day in last 30 days Smokeless Tobacco Status : Never Desires Tobacco Cessation Medication : No Reason for No Tobacco Cessation Medication : Refuses FDA approved medications Implant/Device Type, Burlapper and Model : neck fusion and lumbar [...] Obtained From : Patient Primary Language : Greek Communication Barrier : None MARY MCGRAW RN [...]
--- OUTSIDE RECORDS SUMMARY | 2025-02-19 13:09 | XMS_ITS | Clinical Summary ---
Author Organization [facility] Address [address] [place] [address] Care Team Providers Care Medical Instrument Cable Fabricator Name Role Phone Mustapha James MD Primary Care Provider [phone] Miguel Lamb MD Unavailable [phone] Allergies Active Allergy Reactions Criticality Noted [...] by mouth daily. 0 Active HYDROcodone-joanne taminophen ([place]) 7.5-325 MG tablet Take 1 tablet by [...] Description 11/30/2024 11:30 AM EDT Office Visit [facility] [address] [place] [address] Miguel Lamb MD Nonrheumatic aortic valve stenosis (Primary Dx); Coronary artery disease involving kaibab coronary artery of kaibab heart without angina pectoris; HFrEF (heart failure with reduced ejection fraction) ([facility]) 11/30/2024 Travel from Last 3 Months Immunizations Immunization [...] PM EDT Appointment Cardiac Imaging [address] [place] [phone] 12/06/2025 1:30 PM EDT Office Visit [facility] [address] [place] [phone] Miguel Lamb MD [address] [place] [phone] Health Maintenance Due Date Last Done Comments [...] 2003 [facility]-Diabetes: Hemoglobin A1C 12/01/202212/2022, 07/07/2019, 07/04/2019 [id number] Vaccine ( season) 2024 02/24/2022, 04/01/2021, 08/06/2020, Additional history exists [facility]-Influenza [...] this topic Medical Devices Implanted Type Area Paper Finisher Device Identifier Shelf Expiration Date Model / Serial / Lot Stent Beccaria Manjit Rx 4.5mm X 12mm - [id number] Implanted:Qty: 1 on 08/30/2024 by Miguel Lamb MD at [id number] 03/21/2027 [id number] UX / / [id number] Stent Coronary Beccaria Pelham Rx 3.00mm X 18mm - [id number] Implanted:Qty: 1 on 08/30/2024 by Miguel Lamb MD at [facility]-[id number] 06/14/2027 [id number] UX / / [id number] Stent Coronary Beccaria Pelham Rx 2.75mm X 30mm - [id number] Implanted:Qty: 1 on 09/18/2024 [id number] 03/25/2027 [id number] UX / / [id number] Stent Coronary Beccaria Pelham Rx 3.00mm X 26mm - [id number] Implanted:Qty: 1 on 09/18/2024 [id number] 06/21/2027 [id number] UX / / [id number] Stent Coronary Beccaria Manjit Rx 3.50mm X 12mm - [id number] Implanted:Qty: 1 on 09/18/2024 by [id number] 03/04/2027 [id number] UX / / [id number] Procedures Procedure Name Priority Date/Time Associated Diagnosis Comments HEMOGLOBIN A1C Routine 07/07/2019 2:34 AM EDT from Last 3 Months or Most Recently Relevant to Health Maintenance Results * (ABNORMAL) Hemoglobin A1c (07/07/2019 2:34 AM [...] <6.0% Children and Adolescents <7.5% . Source: [place] Diabetes Association. Standards of medical care in diabetes, 2017. Diabetes Care.2017:40 (suppl 1):S1-S135. . HbA1c assay performed by an ion-exchange chromatography method that is certified traceable to the DCCT. 07/07/2019 2:34 AM EDT 07/07/2019 2:46 AM EDT us Historical Provider LAB BLOOD ORDERABLES Final R esult SUNQUEST from Last 3 Months or Most Recently Relevant to Health Maintenance Insurance [facility] MEDIC[facility] Advance Directives * Full Code [...] updated to appropriate status: Yes Care Teams Medical Instrument Cable Fabricator Relationship Specialty Start Date End Date Mustapha James MD [address] [place] [address] PCP - General 09/05/20 Miguel Lamb MD [address] [place] [phone] Referring Physician Interventional Cardiology 08/16/24
--- OUTSIDE RECORDS SUMMARY | 2025-02-19 13:10 | XMS_ITS | Encounter Summary ---
Author Organization [employer] ([place], [place], [place], [place]) Address [address] [place] [address] Care Team Providers Care Fountain Helper Name Role Phone Unavailable Primary Care Provider Unavailabl e Encounter Details Date Type Department Care Team (Late st Contact Info) Description 02/12/2019 Transcribed Document [facility] Family Medicine [facility] [place] [address] ProviderRegina MD [facility] [place] [address] Social History Tobacco Use Types [...] Regina ProviderMD - 02/12/2019 2:12 PM CDT [facility] Main OR IntraOp Summary Primary Physician: TONY PEÑA MD-SUR Finalized Date/Time: 02/13/19 11:43:16 Pt. Name: JODI GTZ SRIRAM Reynolds/Sex: 1955 Female Med Rec #: [id number] Physician: TONY PEÑA MD-SUR Financial #: [id number] Pt. Type: O Room/Bed: /11 Admit/Disch: 02/12/19 09:27:00 - 02/12/19 18:10:00 Institution: [facility] IntraOp Case Attendance Entry 1 Entry 2 Entry 3 Case Attendee TONY PEÑA MD-SUR Napier, Elizabeth A, RN Murphy, Whitney, [employer] Role Performed Surgeon/Proceduralist, Vice President Of Compliance, First Structures Technician First Time In 02/12/19 13:51:00 02/12/19 [...] CALDWELL, JOSEPH A, ROMARIO COWAN MD-ANS Cardiovascular Structures Technician Role Performed Structures Technician GROUP EXERCISE INSTRUCTOR/Nurse Rubber Belt Splicer Anesthesiologist of Record Time In 02/12/19 13:51:00 [...] Lexus Linda, Martha Zamora RN Role Performed Vice President Of Compliance, First Vice President Of Compliance, Second Time In 02/12/19 14:55:00 02/12/19 13:51:00 Time Out 02/12/19 15:09:00 02/12/19 15:09:00 Procedure Aortogram Abdominal Aortogram Abdominal with Runoff(Right), with Runoff(Right), Arterial Stent Arterial Stent Endovascular(Right) Endovascular(Right) Other Attendee Superficial Wound Closed By: Last Modified By: Lexus Linda, Rn Adilene Dhillon RN 02/12/19 15:50:49 02/13/19 07:01:08 [facility] IntraOp Case Attendance Audit 02/13/19 07:01:21 Packager Machine: JONN Modifier: EANAPIER 8 <*> Procedure Aortogram Abdominal with Runoff(Right), Arterial Stent Endovascular(Right) 02/13/19 07:01:08 Packager Machine: JONN Modifier: EANAPIER 1 <*> Procedure Aortogram [...] with Runoff(Right), Arterial Stent Endovascular(Right) 02/13/19 07:01:03 Packager Machine: MEDARDO Modifier: EANAPIER 2 <*> Time Out 02/12/19 15:09:00 2 <*> Procedure Aortogram Abdominal with Runoff(Right), Arterial Stent Endovascular(Right) <+> 8 Case Attendee <+> 8 Role Performed <+> 8 Procedure 02/12/19 15:53:28 Packager Machine: SUSANSLOAN Modifier: SUSANSLOAN 7 <*> Time In 02/12/19 15:55:00 7 <*> Procedure Aortogram Abdominal with Runoff(Right), Arterial Stent Endovascular(Right) 02/12/19 15:51:08 Packager Machine: SUSANSLOAN Modifier: SUSANSLOAN 7 <*> Procedure Arterial Stent Endovascular(Right) 02/12/19 15:50:49 Packager Machine: SUSANSLOAN Modifier: SUSANSLOAN 7 <*> Time Out 02/12/19 15:48:00 7 <*> Procedure Arterial Stent Endovascular(Right) 02/12/19 15:50:15 Packager Machine: SUSANSLOAN Modifier: SUSANSLOAN 7 <+> Role Performed 7 <*> Procedure Arterial Stent Endovascular(Right) 02/12/19 15:49:22 Packager Machine: EANAPIER Modifier: SUSANSLOAN 1 <+> Time Out [...] Time Out <+> 7 Procedure 02/12/19 14:50:28 Packager Machine: EANAPIER Modifier: EANAPIER 1 <*> Procedure Aortogram Abdominal with Runoff(Right) 2 <*> Procedure Aortogram Abdominal with Runoff(Right) 3 <*> Procedure Aortogram Abdominal with Runoff(Right) 4 <*> Procedure Aortogram Abdominal with Runoff(Right) 5 <*> Procedure Aortogram Abdominal with Runoff(Right) 6 <*> Procedure Aortogram Abdominal with Runoff(Right) 02/12/19 14:30:54 Packager Machine: EANAPIER Modifier: EANAPIER 1 <*> Procedure Aortogram Abdominal with Runoff(Right) 2 <*> Procedure Aortogram Abdominal with Runoff(Right) 3 <*> Procedure Aortogram Abdominal with Runoff(Right) 4 <*> Procedure Aortogram Abdominal with Runoff(Right) 5 <*> Procedure Aortogram Abdominal with Runoff(Right) 6 <+> Time In 6 <*> Procedure Aortogram Abdominal with Runoff(Right) 02/12/19 14:24:03 Packager Machine: EANAPIER Modifier: EANAPIER 1 <*> Case Attendee TONY PEÑA MD-JESUS 1 <*> Role Performed Surgeon/Proceduralist, First 1 <*> Time In 02/12/19 13:51:00 1 <*> Procedure Aortogram Abdominal with Runoff(Right) 2 <*> Case Attendee Adilene Dhillon RN 2 <*> Role Performed Vice President Of Compliance, First 2 <*> Time In 02/12/19 13:51:00 2 <*> Procedure Aortogram Abdominal with Runoff(Right) 3 <*> Case Attendee Mayra Castrejon, [employer] 3 <*> Role Performed Structures Technician 3 <*> Time In 02/12/19 13:51:00 3 <*> Procedure Aortogram Abdominal with Runoff(Right) 4 <*> Case Attendee Coco Pfeiffer, Cardiovascular Structures Technician 4 <*> Role Performed Structures Technician 4 <*> Time In 02/12/19 13:51:00 4 <*> Procedure Aortogram Abdominal with Runoff(Right) 5 <*> Case Attendee EVERETT FREED GROUP EXERCISE INSTRUCTOR 5 <*> Role Performed GROUP EXERCISE INSTRUCTOR/Nurse Rubber Belt Splicer 5 <*> Time In 02/12/19 13:51:00 5 <*> Procedure Aortogram Abdominal with Runoff(Right) Entry 6 was deleted. Higher numbered entries shifted one position to fill the gap. <-> 6 Case Attendee MUSTAPHA DUTTON MD-ANS <-> 6 Role Performed Anesthesiologist of Record <-> 6 Time In 02/12/19 13:51:00 <-> 6 Procedure Aortogram Abdominal with Runoff(Right) 02/12/19 14:15:54 Packager Machine: EANAPILUIS Modifier: EANAPIER <+> 1 Procedure 2 <+> Time In 2 <*> Procedure Aortogram Abdominal with Runoff(Right) 3 <+> Time In 3 <*> Procedure Aortogram Abdominal with Runoff(Right) 4 <+> Time In 4 <*> Procedure Aortogram Abdominal with Runoff(Right) 5 <+> Time In 5 <*> Procedure Aortogram Abdominal with Runoff(Right) 6 <+> Time In 6 <*> Procedure Aortogram Abdominal with Runoff(Right) 02/12/19 14:13:18 Packager Machine: HARSHPILUIS Modifier: EANAPIER <+> 2 Case Attendee <+> 2 Role Performed <+> 2 Procedure <+> 3 Case Attendee <+> 3 Role Performed <+> 3 Procedure <+> 4 Case Attendee <+> 4 Role Performed <+> 4 Procedure <+> 5 Case Attendee <+> 5 Role Performed <+> 5 Procedure <+> 6 Case Attendee <+> 6 Role Performed <+> 6 Procedure [facility] IntraOp Case Times Entry 1 Patient In Room Time 02/12/19 13:51:00 Out Room Time 02/12/19 15:09:00 Anesthesia Start Time 02/12/19 13:51:00 Stop Time 02/12/19 15:09:00 Surgery / Procedure Times Start Time 02/12/19 14:12:00 Stop Time 02/12/19 15:00:00 Last Modified By: Lexus Linda Rn 02/12/19 15:21:58 [facility] IntraOp Case Times Audit 02/12/19 15:21:58 Packager Machine: JONN Modifier: MEDARDO <+> 1 Out Room Time <+> 1 Stop Time <+> 1 Stop Time 02/12/19 14:11:48 Packager Machine: HARSHPILUIS Modifier: EANAPIER <+> 1 Start Time [facility] IntraOp Communication Entry 1 Communication To Family/Significant other Comment START Date and Time 02/12/19 14:13:00 Last Modified By: Adilene Dhillon RN 02/12/19 14:12:21 [facility] IntraOp Departure from OR Entry 1 Integumentary Assessment Integumentary WDL Assessment WDL Transfer/Handoff Transfer to Other Handoff Method Phone call Post-op Transport Stretcher/[facility] Via Patient Transport Lexus Linda Rn Accompanied by Transfer/Handoff PT TRANSPORTED TO [facility] Last Modified By: Lexus Linda Rn 02/12/19 15:48:30 General Comments: CALLED TO Arthur Gonzalez NURSE [facility] IntraOp Departure from OR Audit 02/12/19 15:49:29 Packager Machine: MEDARDO Modifier: MEDARDO <+> 1 Patient Transport Accompanied by [facility] IntraOp Dressing and Packing Entry 1 Type Dressing Location OPSITE Wound Dressing Item 4x4's Applied By TONY PEÑA MD-JESUS Other Comments [employer] Last Modified By: Adilene Dhillon RN 02/12/19 14:09:39 [facility] IntraOp Fire Risk Assessment Entry [...] Modified By: Adilene Dhillon RN 02/12/19 14:09:55 [facility] IntraOp Fire Risk Assessment Audit 02/12/19 14:13:31 Packager Machine: HARSHPILUIS Modifier: EANAPIER <+> 1 Fire Risk Assessment Verified By <+> 1 Fire Risk Assessment Verified Date/Time 02/12/19 14:12:26 Packager Machine: EASTEPHANIEPILUIS Modifier: EANAPIER 1 <-> Fire Risk Assessment Verified 02/12/19 14:10:00 Date/Time [facility] IntraOp General Case Assistant Spa Director 1 Case Information OR OR 20 [facility] Case Level 1 Room Verified Yes Wound Class I - Clean Specialty SN Endovascular Anesthesia Type MAC ASA Class 3 Diagnosis Preop Diagnosis BILATERAL LOWER EXTREMITY CLAUDICATION Postop Same As Preop No Postop Diagnosis SEE MD NOTE Last Modified By: Adilene Dhillon RN 02/12/19 14:13:47 [facility] IntraOp General Case Data Audit 02/12/19 14:20:37 Packager Machine: JONN Modifier: EANAPIER <+> 1 Preop Diagnosis [facility] IntraOp Implant Log Entry 1 Entry 2 Entry 3 Type Implant (Synthetic) Implant (Synthetic) Implant (Synthetic) Implant Log Implant Type Other Tissue Implant Type Implant STENT LS EXP VASC CVR [id number] STENT LS EXP VASC CVR Identification [id number] Description Implant Quantity 1 1 1 Implant Site LEFT COMMON ILIAC ARTERY RIGHT COMMON ILIAC RIGHT COMON ILIAC ARTERY ARTERY Implant [id number] Identification Model Number Implant Identification Serial Number Implant [id number] Identification Lot Number Implant Cr Bard:Peripheral Vasc Cr Bard:Peripheral Vasc Identification Piece Goods Packer Name: Implant [id number] Identification Catalog Number Implant Size 7.9 X 24.6 MM 7.9 X 37 MM Implant Has an Yes Yes Yes Expiration Date Implant Expiration 07/23/21 11/22/21 11/22/21 Date Wasted Radioactive Material Time Implanted Tissue Implant Continue for Tissue Implant Documentation Tissue Identification Number Graft Prep Per Piece Goods Packer Instructions: Tissue Preparation Method: Reconstitution Solution: Reconstitution Solution Lot Number Reconstitution Solution Expiration Date: Thawing Solution Thawing Solution Lot Number Thawing Solution Expiration Date Preparation Materials, Other Preparation Materials, Other Lot Number Preparation Materials, Other Expiration Date Tissue Prepared/Processed By Piece Goods Packer Paperwork Completed Implant Type Comment Last Modified By: Adilene Dhillon RN Napier, Elizabeth A, RN Sloan, Susan, Rn 02/12/19 14:37:35 02/12/19 14:39:27 02/12/19 15:46:28 Entry 4 Entry 5 Entry 6 Type Implant (Synthetic) Implant (Synthetic) Implant (Synthetic) Implant Log Implant Type Other Tube(s) Other Tissue Implant Type Implant STNT BLLN ENDO VBX DEVICE MYNX DOLLY DRIVER 6F/ 7F DEVICE MYNX DOLLY DRIVER 6F/ 7F Identification [id number] Description Implant Quantity 1 1 1 Implant Site RIGHT EXTERNAL ILIAC RIGHT FEMORAL LEFT FEMORAL ARTERY ARTERY Implant [id number] Identification Model Number Implant [id number] Identification Serial Number Implant [id number] Identification Lot Number Implant [employer]:Med Prdt Access Closure Access Closure Identification Piece Goods Packer Name: Implant [id number] Identification Catalog Number Implant Size Implant Has an Yes Yes Yes Expiration Date Implant Expiration 07/29/21 01/22/21 01/22/21 Date Wasted Radioactive Material Time Implanted Tissue Implant Continue for Tissue Implant Documentation Tissue Identification Number Graft Prep Per Piece Goods Packer Instructions: Tissue Preparation Method: Reconstitution Solution: Reconstitution Solution Lot Number Reconstitution Solution Expiration Date: Thawing Solution Thawing Solution Lot Number Thawing Solution Expiration Date Preparation Materials, Other Preparation Materials, Other Lot Number Preparation Materials, Other Expiration Date Tissue Prepared/Processed By Piece Goods Packer Paperwork Completed Implant Type Comment Last Modified By: Lexus Linda Rn Sloan, Susan, Rn Sloan, Susan, Rn 02/12/19 15:46:28 02/12/19 15:46:28 02/12/19 15:46:28 [facility] IntraOp Implant Log Audit 02/12/19 15:46:28 Packager Machine: JONN Meng: MEDARDO 1 <*> Implant Identification Description STENT LS EXP VASC CVR [id number] <+> 3 Implant Identification Description <+> 3 Implant Identification Lot Number <+> 3 Implant Identification Piece Goods Packer Name: <+> 3 Implant Expiration Date <+> 3 Implant Site <+> 3 Implant Quantity <+> 3 Implant Identification Catalog Number <+> 3 Implant Type <+> 3 Implant Identification Model Number <+> 3 Implant Has an Expiration Date <+> 3 Type <+> 4 Implant Identification Description <+> 4 Implant Identification Serial Number <+> 4 Implant Identification Piece Goods Packer Name: <+> 4 Implant Expiration Date <+> 4 Implant Site <+> 4 Implant Quantity <+> 4 Implant Identification Catalog Number <+> 4 Implant Type <+> 4 Implant Identification Model Number <+> 4 Implant Has an Expiration Date <+> 4 Type <+> 5 Implant Identification Description <+> 5 Implant Identification Lot Number <+> 5 Implant Identification Piece Goods Packer Name: <+> 5 Implant Expiration Date <+> 5 Implant Site <+> 5 Implant Quantity <+> 5 Implant Identification Catalog Number <+> 5 Implant Type <+> 5 Implant Identification Model Number <+> 5 Implant Has an Expiration Date <+> 5 Type <+> 6 Implant Identification Description <+> 6 Implant Identification Piece Goods Packer Name: <+> 6 Implant Expiration Date <+> 6 Implant Site <+> 6 Implant Quantity <+> 6 Implant Identification Catalog Number <+> 6 Implant Type <+> 6 Implant Identification Model Number <+> 6 Implant Has an Expiration Date <+> 6 Type 02/12/19 14:39:27 Packager Machine: JONN Modifier: JONN <+> 2 Implant Identification [...] Modified By: Adilene Dhillon RN 02/13/19 06:58:24 [facility] IntraOp Intraoperative Assessment Audit 02/13/19 06:58:24 Packager Machine: EANAPIER Modifier: EANAPIER 1 <*> Skin Assessment Verified Yes 1 <+> Handoff Method [facility] IntraOp Intraoperative Equipment Entry 1 Type Monitoring Equipment Intraop Monitoring Electrocardiogram Three lead placement (ECG) Electrode Placement Blood Pressure Non-Invasive BP Device Source Blood Pressure Arm, right upper Location Pulse Oximeter Hand, left Probe Site Antiembolic Devices Scopes Photo/Video Documentation Last Modified By: Adilene Dhillon RN 02/12/19 14:15:38 [facility] IntraOp Medication Admin Entry 1 Entry 2 Entry 3 Medication/Irrigant CESAR VISIPAQUE 320MG 150 lidocaine 1% 50ml vial CESAR NACL 0.9PCT HPRN 200ML --[id number] - [id number] 1000U .5L --[id number] Combo Med List Time Administered Route of [...] RN 02/12/19 14:14:13 02/12/19 14:14:13 02/12/19 14:14:13 [facility] IntraOp Medication Admin Audit 02/13/19 06:57:26 Packager Machine: EANAPIER Modifier: EANAPIER <+> 1 Dose [facility] IntraOp Patient Positioning Entry 1 [...] Modified By: Adilene Dhillon RN 02/13/19 06:59:18 [facility] IntraOp Patient Positioning Audit 02/13/19 06:59:18 Packager Machine: JONN Modifier: EANAPIER 1 <*> Procedure Aortogram Abdominal with Runoff(Right), Arterial Stent Endovascular(Right) 1 <*> Positioning Devices Head Rest, Safety Strap, Thighs, Sled Arm Rest 1 <*> Positioned By TONY PEÑA MD-JESUS 02/12/19 14:50:30 Packager Machine: HARSHPIER Modifier: EANAPIER 1 <*> Procedure Aortogram Abdominal with Runoff(Right) [facility] IntraOp Sign In Entry 1 [...] Modified By: Adilene Dhillon RN 02/12/19 14:14:44 [facility] IntraOp Sign Out Entry 1 [...] to extraneous objects Last Modified By: Adilene Dihllon RN 02/12/19 14:15:04 [facility] IntraOp Sign Out Audit 02/12/19 15:49:49 Packager Machine: JONN Modifier: JOHNAN <+> 1 RN Sign Out Signature Date/Time 02/12/19 14:16:46 Packager Machine: JONN Modifier: EANAPIER 1 <*> Urinary Catheter Documented in IView N/A [facility] IntraOp Skin Prep Entry 1 Procedure Aortogram Abdominal with Runoff(Right), Arterial Stent Endovascular(Right) Prescribed N/A Pre-Surgical Prep Completed Prep Area BILATERAL GROINS Intraop Prep Integumentary WDL Assessment WDL Prep Agents Chloraprep Prep by Adilene Dhillon RN Hair Removal Methods No hair removal performed Last Modified By: Adilene Dhillon RN 02/12/19 14:13:55 [facility] IntraOp Skin Prep Audit 02/12/19 14:50:30 Packager Machine: JONN Modifier: EANAPIER 1 <*> Procedure Aortogram Abdominal with Runoff(Right) [facility] IntraOp Surgical Procedures Entry 1 Entry [...] Elizabeth A, RN 02/13/19 07:00:03 02/12/19 14:50:24 [facility] IntraOp Surgical Procedures Audit 02/13/19 07:00:03 Packager Machine: MEDARDO Modifier: EANAPIER 1 <*> Procedure Aortogram Abdominal with Runoff 1 <*> Additional Procedure Description (AORTOGRAM WITH RT LEG REVASCULARIZATION) 02/12/19 15:49:57 Packager Machine: JONN Modifier: ROSALINDALOAN 1 <*> Procedure Aortogram Abdominal with Runoff 1 <+> Stop <+> 2 Stop 02/12/19 14:54:15 Packager Machine: JONN Modifier: HARSHPIER 1 <*> Procedure Aortogram Abdominal with Runoff 02/12/19 14:50:24 Packager Machine: JONN Modifier: HARSHPIER <+> 2 Procedure <+> 2 Primary Procedure <+> 2 Modifiers <+> 2 Primary Surgeon <+> 2 Specialty <+> 2 Start <+> 2 Wound Class <+> 2 Anesthesia Type [facility] IntraOP Time Out Entry 1 [...] Modified By: Adilene Dhillon RN 02/12/19 14:50:31 [facility] IntraOP Time Out Audit 02/12/19 14:50:31 Packager Machine: JONN Modifier: HARSHPIER 1 <*> Procedure to be Performed Aortogram Abdominal with Runoff(Right) [facility] IntraOp X-Ray and Images Entry 1 X-Ray/Imaging Type Fluoroscopy Fluoroscopy Type Fixed Earth Science Technician Name Mayra Castrejon [employer] Protective Devices Yes [...] JORGE Correct Billing Electronically signed by Mickey, [facility] Conversion Data Control Assistant Cerner at 08/13/2022 11:13 AM CDT documented in this encounter Plan of Treatment Not on file documented as of this encounter Visit Diagnoses Not on filedocumented in this encounter
--- OUTSIDE RECORDS SUMMARY | 2025-02-19 13:10 | XMS_ITS | Encounter Summary ---
Author Organization [employer] ([place], [place], [place], [place]) Address [address] [place] [address] Care Team Providers Care Supervisor Wire Rope Fabrication Name Role Phone Unavailable Primary Care Provider Unavailabl e Encounter Details Date Type Department Care Team (Late st Contact Info) Description 02/12/2019 Transcribed Document [facility] Radiology [address] [place] [address] Martinez Miller MD [address] [facility] [place] [id number] Social History Tobacco Use Types Packs/Day Years [...] skin and nails, Oral, Daily, 0 Refill(s) [place] 7.5 mg-325 mg oral tablet: 1 Tab, [...] Medication hair, skin and nails, Oral, Daily [place] 7.5 mg-325 mg oral tablet 1 Tab, [...] Problems Cervical spinal stenosis / SNOMED CT 463496287 / Confirmed Smoker / SNOMED CT 040420581 / Confirmed Sinusitis / SNOMED CT 77071417 / Confirmed Seasonal allergies / SNOMED CT 511468613 / Confirmed Restless leg / SNOMED CT 28061521 / Confirmed Colon polyps / SNOMED CT 372792730 / Confirmed Pneumonia / SNOMED CT 669953656 / Confirmed Peripheral vascular disease / SNOMED CT 4375885364 / Confirmed Peptic ulcer / SNOMED CT 86087907 / Confirmed Osteoporosis / SNOMED CT 420437978 / Confirmed Neuropathy, R arm / SNOMED CT 3310106652 / Confirmed Migraines / SNOMED CT 08745098 / Confirmed Skin cancer / SNOMED CT 4812353677 / Confirmed Hypertension / SNOMED CT 1842304785 / Confirmed Hyperlipidemia / SNOMED CT 74640688 / Confirmed Elevated cholesterol / SNOMED CT 92650390 / Confirmed Hiatal hernia / SNOMED CT 256634335 / Confirmed Hemorrhoids / SNOMED CT 137279860 / Confirmed H/O: TIA / SNOMED CT 239541663 / Confirmed GERD (gastroesophageal reflux disease) / SNOMED CT 500219881 / Confirmed Gastritis / SNOMED CT 4438174 / Confirmed Fibromyalgia / SNOMED CT 05608939 / Confirmed Fibroids / SNOMED CT 420352463 / Confirmed Endometriosis / SNOMED CT 7543077903 / Confirmed Diverticulitis / SNOMED CT 845789772 / Confirmed Sinus problem / SNOMED CT 2977591436 / Confirmed Known medical problems / SNOMED CT 925125111 / Confirmed white spots on MRI Known medical problems / SNOMED CT 572760365 / Confirmed anti nuclear A and A antibodies Constipation / SNOMED CT 19172336 / Confirmed COPD (chronic obstructive pulmonary disease) / SNOMED CT 34731284 / Confirmed Chronic cough / SNOMED CT 339684185 / Confirmed Chronic constipation / SNOMED CT 048114704 / Confirmed Stroke, possible / SNOMED CT 646366822 / Confirmed Bursitis / SNOMED CT 068153310 / Confirmed Bronchitis / SNOMED CT 57334355 / Confirmed Back pain / SNOMED CT 195610037 / Confirmed Arthritis / SNOMED CT 8867321 / Confirmed Anemia / SNOMED CT 279691102 / Confirmed Allergic rhinitis / SNOMED CT 447987505 / Confirmed, Active Problems (39) Allergic rhinitis [...] LE weakness, uses cane. Integumentary: Warm, Dry, [place]. Neurologic: Alert, Oriented. Psychiatric: Cooperative, Appropriate mood & affect. Review / Management Results review: No qualifying data available. Impression and Plan Condition: Stable. documented in this encounter Plan of Treatment Not on file documented as of this encounter Visit Diagnoses Not on filedocumented in this encounter
--- OUTSIDE RECORDS SUMMARY | 2025-02-19 13:10 | XMS_ITS | Encounter Summary ---
Author Organization [employer] ([place], [place], [place], [place]) Address [address] [place] [address] Care Team Providers Care Label Machine Operator Name Role Phone Unavailable Primary Care Provider Unavailabl e Encounter Details Date Type Department Care Team (Late st Contact Info) Description 02/12/2019 Transcribed Document [facility] [place] [facility] [place] [address] ProviderRegina MD [address] [place] [address] Social History Tobacco Use Types Packs/Day [...] Henley MD - 02/12/2019 5:18 PM CDT [place] [address] THOMAS GTZ SRIRAM :1955 Visit [...] Appointment has been made with [facility]. Where: [address] [place], [place] [phone]- [phone] Medications What How Much When Instructions Next Dose acetaminophen-hydrocodone ([place] 7.5 mg-325 mg oral tablet) 1 Tablet(s) [...] Document Reviewed: 05/14/2011 ExitCare?? Patient Information ??2013 Bright Pattern. Angiogram, Care After This sheet gives you [...] and water are not available, use hand cost recovery technician. ? Change your dressing as told [...] contrast dye from your body. ??? Take haak-mjv-jjfyszo and prescription medicines only as told by [...] 10/28/2005 Document Revised: 03/16/2017 Document Reviewed: 03/16/2017 [employer] Interactive Patient Education ?? 2019 [employer]. Moderate Conscious Sedation, Adult, Care After These [...] you are awake and alert. ??? Take dahy-wef-tsrcyma and prescription medicines only as told by [...] 01/30/2014 Document Revised: 09/13/2016 Document Reviewed: 07/31/2016 [employer] Interactive Patient Education ?? 2019 [employer]. Emergency Awareness and Preventative Care STROKE is [...] Assistance with quitting is available by contacting 6-840-SFLK-NOW. This is a free resource providing counseling, [...] was given the opportunity to ask questions. Patient/Building Equipment Inspector Name: Patient/Building Equipment Inspector Signature: Relationship to Patient: Clinician/Hospital Building Equipment Inspector Signature: Date: Electronically signed by Mickey, [facility] Conversion Turbo Generator Oiler Andrew at 08/13/2022 11:16 AM CDT documented in this encounter Plan of Treatment Not on file documented as of this encounter Visit Diagnoses Not on filedocumented in this encounter
[2025-02-19 13:11] LABS: Iron 111 ug/dL (37-170)
--- OUTSIDE RECORDS SUMMARY | 2025-02-19 13:11 | XMS_ITS | Encounter Summary ---
Author Organization [email or web address] ([place], [place], [place], [place]) Address [address] [place] [address] Care Team Providers Care Electrical Assemblies Supervisor Name Role Phone Unavailable Primary Care Provider Unavailabl e Encounter Details Date Type Department Care Team (Late st Contact Info) Description 02/12/2019 Transcribed Document [facility] [place] Family Medicine [place] [address] ProviderRegina [place] [address] Social History Tobacco Use Types [...] SRIRAM Reynolds/Sex: 1955 Female Med Rec #: [id number] Physician: TONY PEÑA MD-SUR Financial #: [id number] Pt. Type: O Room/Bed: HIS/11 Admit/Disch: 02/12/19 [...] RN 02/12/19 18:38 Electronically signed by Mickey [facility] Conversion Building Superintendent Cerner at 08/13/2022 11:16 AM CDT documented in this encounter Plan of Treatment Not on file documented as of this encounter Visit Diagnoses Not on filedocumented in this encounter
--- OUTSIDE RECORDS SUMMARY | 2025-02-19 13:11 | XMS_ITS | Encounter Summary ---
Author Organization [employer] ([place], [place], [place], [place]) Address [address] [place] [address] Care Team Providers Care Mingler Operator Name Role Phone Unavailable Primary Care Provider Unavailabl e Encounter Details Date Type Department Care Team (Late st Contact Info) Description 03/14/2019 Transcribed Document [facility] [place] [facility] [place] [address] ProviderRegina MD [address] [place] [address] Social History Tobacco Use Types Packs/Day [...] Regina Henley MD - 03/14/2019 4:22 PM SOUS CHEF KITCHEN MANAGER [facility] [place] [address] THOMAS GTZ SRIRAM :1955 Visit Time:03/14/2019 Your Visit Summary Your Care Team Admitting Physician - TONY PEÑA MD-SUR Attending Physician - TONY PEÑA MD-SUR Primary Care Physician - JACKIE BABIN MD-FAM Referring Physician - JACKIE BABIN MD-FAM PHY, NONE Your Diagnosis Atherosclerosis of [place] arteries of extremities with intermittent claudication, unspecified extremity, Atherosclerosis of [place] arteries of extremities with intermittent claudication, unspecified [...] Appointment has been made, with JOEY,s Where: [address] [place], [place] [phone]- [phone] Medications What How Much When Instructions Next Dose acetaminophen-hydrocodone ([place] 7.5 mg-325 mg oral tablet) 1 Tablet(s) [...] you are awake and alert. ??? Take zklk-uvg-syaoqjw and prescription medicines only as told by [...] 01/30/2014 Document Revised: 09/13/2016 Document Reviewed: 07/31/2016 [employer] Interactive Patient Education ?? 2019 [employer] Angiogram, Care After This sheet gives [...] and water are not available, use hand antenna design engineer. ? Change your dressing as told [...] contrast dye from your body. ??? Take ozop-ext-wsqnpnf and prescription medicines only as told by [...] 10/28/2005 Document Revised: 03/16/2017 Document Reviewed: 03/16/2017 [employer] Interactive Patient Education ?? 2019 [employer] Angiogram An angiogram is a procedure [...] including vitamins, herbs, eye drops, creams, and wttg-xrc-vczrhto medicines. ??? Any problems you or family [...] 01/19/2006 Document Revised: 08/16/2017 Document Reviewed: 05/18/2017 [employer] Interactive Patient Education ?? 2019 [employer] Intermittent Claudication Intermittent claudication is pain [...] calories. Consider working with a diet and hazardous material specialist (dietitian) to help you make healthy [...] blood pressure, or high cholesterol. ??? Take uold-ryf-ldcdnqd and prescription medicines only as told by [...] 02/11/2005 Document Revised: 05/12/2017 Document Reviewed: 05/12/2017 [employer] Interactive Patient Education ?? 2019 [employer]. Peripheral Vascular Disease Peripheral vascular disease (PVD) [...] activities for you. General instructions ??? Take qukf-ndq-esdxdcf and prescription medicines only as told by [...] 05/19/2005 Document Revised: 05/19/2017 Document Reviewed: 05/19/2017 [employer] Interactive Patient Education ?? 2019 [employer] Emergency Awareness and Preventative Care STROKE [...] Assistance with quitting is available by contacting 8-175-DLDSNOW. This is a free resource providing counseling, [...] was given the opportunity to ask questions. Patient/Division Supervisor Name: Patient/Division Supervisor Signature: Relationship to Patient: Clinician/Hospital Division Supervisor Signature: Date: documented in this encounter Plan of Treatment Not on file documented as of this encounter Visit Diagnoses Not on filedocumented in this encounter
--- OUTSIDE RECORDS SUMMARY | 2025-02-19 13:11 | XMS_ITS | Encounter Summary ---
Author Organization [employer] ([place], [place], [place], [place]) Address [address] [place] [address] Care Team Providers Care Oil Paint Shader Name Role Phone Unavailable Primary Care Provider Unavailabl e Encounter Details Date Type Department Care Team (Late st Contact Info) Description 03/14/2019 Transcribed Document [facility] [place] Family Medicine [facility] [place] [address] ProviderRegina MD [place] [address] Social History Tobacco Use Types [...] - Regina ProviderMD - 03/14/2019 12:37 PM HAND DRAWER IN HELPER [facility] Main OR IntraOp Summary Primary Physician: TONY PEÑA MD-SUR Finalized Date/Time: 03/15/19 11:29:27 Pt. Name: JDOI GTZ SRIRAM Reynolds/Sex: 1955 Female Med Rec #: [id number] Physician: TONY PEÑA MD-SUR Financial #: [id number] Pt. Type: O Room/Bed: Admit/Disch: 03/14/19 09:48:00 - 03/14/19 17:30:00 Institution: [facility] IntraOp Case Attendance Entry 1 Entry 2 Entry 3 Case Attendee TONY PEÑA MD-SUR CALDWELL, JOSEPH A, CRNA BOWEN, JON B, MD-ANS Role Performed Surgeon/Proceduralist, SACK SORTER/Nurse Devulcanizer Operator Anesthesiologist First Time In 03/14/19 12:18:00 03/14/19 [...] KIERSTEN KHALIL, Gia Liu, Coco Hagan, Cardiovascular Weld Inspector Role Performed Dining Service Inspector, First Dining Service Inspector, Second Weld Inspector Time In 03/14/19 12:18:00 03/14/19 12:18:00 03/14/19 12:18:00 Time Out 03/14/19 14:07:00 03/14/19 14:07:00 03/14/19 14:07:00 Procedure Aortogram Abdominal Aortogram Abdominal Aortogram Abdominal with Runoff(Left) with Runoff(Left) with Runoff(Left) Other Attendee Superficial Wound Closed By: Last Modified By: Gia Armendariz RN Duncan, Richelle, Gia Liu RN 03/14/19 14:07:56 03/14/19 14:07:56 03/14/19 14:07:56 Entry 7 Case Attendee Mayra Castrejon [employer] Role Performed Weld Inspector Time In 03/14/19 12:18:00 Time Out 03/14/19 14:07:00 Procedure Aortogram Abdominal with Runoff(Left) Other Attendee Superficial Wound Closed By: Last Modified By: Gia Armendariz RN 03/14/19 14:07:56 [facility] IntraOp Case Attendance Audit 03/14/19 14:07:56 Spanish Medical Interpreter: [id number] Modifier: [id number] 1 <+> Time Out 1 <*> Procedure [...] Procedure Aortogram Abdominal with Runoff(Left) 03/14/19 13:11:30 Spanish Medical Interpreter: [id number] Modifier: [id number] 1 <*> Procedure Aortogram Abdominal with Runoff(Left) 2 <*> Procedure Aortogram Abdominal with Runoff(Left) 3 <*> Procedure Aortogram Abdominal with Runoff(Left) 4 <*> Procedure Aortogram Abdominal with Runoff(Left) 5 <*> Procedure Aortogram Abdominal with Runoff(Left) 6 <+> Time In 6 <*> Procedure Aortogram Abdominal with Runoff(Left) 7 <+> Time In 7 <*> Procedure Aortogram Abdominal with Runoff(Left) 03/14/19 12:47:49 Spanish Medical Interpreter: [id number] Modifier: [id number] <+> 6 Case Attendee <+> 6 Role Performed <+> 6 Procedure <+> 7 Case Attendee <+> 7 Role Performed <+> 7 Procedure 03/14/19 12:46:19 Spanish Medical Interpreter: [id number] Modifier: [id number] <+> 1 Procedure 2 <*> Procedure Aortogram Abdominal with Runoff(Left) 3 <+> Time In 3 <*> Procedure Aortogram Abdominal with Runoff(Left) 4 <+> Time In 4 <*> Procedure Aortogram Abdominal with Runoff(Left) 5 <+> Time In 5 <*> Procedure Aortogram Abdominal with Runoff(Left) 03/14/19 12:45:34 Spanish Medical Interpreter: [id number] Modifier: [id number] 2 <+> Time In 2 <*> Procedure Aortogram Abdominal with Runoff(Left) <+> 3 Case Attendee <+> 3 Role Performed <+> 3 Procedure <+> 4 Case Attendee <+> 4 Role Performed <+> 4 Procedure <+> 5 Case Attendee <+> 5 Role Performed <+> 5 Procedure [facility] IntraOp Case Times Entry 1 Patient In Room Time 03/14/19 12:18:00 Out Room Time 03/14/19 14:07:00 Anesthesia Start Time 03/14/19 12:18:00 Stop Time 03/14/19 14:07:00 Anesthesia Ready 03/14/19 12:18:00 Surgery / Procedure Times Start Time 03/14/19 12:37:00 Stop Time 03/14/19 14:01:00 Last Modified By: Gia Armendariz RN 03/14/19 12:39:43 [facility] IntraOp Case Times Audit 03/14/19 14:07:55 Spanish Medical Interpreter: [id number] Modifier: [id number] <+> 1 Out Room Time <+> 1 Stop Time <+> 1 Stop Time [facility] IntraOp Communication Entry 1 Entry 2 Communication To Family/Significant other Family/Significant other Comment START UPDATE Communication By Gia Armendariz RN Duncan, Richelle, RN Date and Time 03/14/19 12:45:00 03/14/19 13:49:00 Last Modified By: Gia Armendariz RN Duncan, Richelle, RN 03/14/19 12:48:01 03/14/19 13:50:06 [facility] IntraOp Communication Audit 03/14/19 13:50:06 Spanish Medical Interpreter: [id number] Modifier: [id number] <+> 2 Communication By <+> 2 Date and Time <+> 2 Communication To <+> 2 Comment [facility] IntraOp Departure from OR Entry 1 Integumentary Assessment Integumentary WDL Assessment WDL Transfer/Handoff Transfer to Other Handoff Method Phone call Post-op Transport [facility] [place] Via Patient Transport JACKIE BLANTON MD-ANS, Accompanied by EVERETT FREED CRNA, RESULTAY, JOSEFINA, RN Transfer/Handoff PT TRANSPORTED TO [facility], PT STABLE Last Modified By: Gia Armendariz RN 03/14/19 12:48:40 [facility] IntraOp Dressing and Packing Entry 1 Type Dressing Location OPSITE Wound Dressing Item 4x4's Applied By TONY PEÑA MD-JESUS Other Comments COVADERM Last Modified By: Gia Armendariz RN 03/14/19 12:48:56 [facility] IntraOp Fire Risk Assessment Entry [...] Modified By: Gia Armendariz RN 03/14/19 12:49:12 [facility] IntraOp General Case Software Engineering Supervisor 1 Case Information OR OR 20 [facility] Case Level 1 Room Verified Yes Wound Class I - Clean Specialty SN General Anesthesia Type MAC ASA Class 3 Diagnosis Preop Diagnosis BILATERAL CLAUDICATION Postop Same As Preop Yes Postop Diagnosis BILATERAL CLAUDICATION Last Modified By: Gia Armendariz RN 03/14/19 13:06:23 [facility] IntraOp General Case Data Audit 03/14/19 13:07:04 Spanish Medical Interpreter: [id number] Modifier: [id number] 1 <*> Preop Diagnosis RIGHT ILIAC ARTERY OCCLUSION 1 <*> Postop Diagnosis RIGHT ILIAC ARTERY OCCLUSION 03/14/19 13:06:23 Spanish Medical Interpreter: [id number] Modifier: [id number] <+> 1 ASA Class <+> 1 Anesthesia Type <+> 1 Postop Same As Preop <+> 1 Preop Diagnosis <+> 1 Postop Diagnosis <+> 1 Room Verified [facility] IntraOp Implant Log Entry 1 Entry 2 Type Implant (Synthetic) Implant (Synthetic) Implant Log Implant Type Other Tissue Implant Type Implant DEVICE MYNX CENTRAL STERILE TECHNICIAN 6F/ 7F STENT VASC LS 5F 135cm Identification [id number] Description Implant Quantity 1 1 Implant Site LEFT GROIN LEFT SFA Implant Identification Model Number Implant Identification Serial Number Implant [id number] Identification Lot Number Implant Access Closure Cr Bard:Peripheral Vasc Identification [employer] Name: Implant [id number] Identification Catalog Number Implant Size Implant Has an Yes Yes Expiration Date Implant Expiration 01/22/21 08/18/20 Date Wasted Radioactive Material Time Implanted Tissue Implant Continue for Tissue Implant Documentation Tissue Identification Number Graft Prep Per [employer] Instructions: Tissue Preparation Method: Reconstitution Solution: Reconstitution Solution Lot Number Reconstitution Solution Expiration Date: Thawing Solution Thawing Solution Lot Number Thawing Solution Expiration Date Preparation Materials, Other Preparation Materials, Other Lot Number Preparation Materials, Other Expiration Date Tissue Prepared/Processed By [employer] Paperwork Completed Implant Type Comment Last Modified By: Gia Armendariz RN Duncan, Richelle, RN 03/14/19 13:46:31 03/14/19 13:48:58 [facility] IntraOp Implant Log Audit 03/14/19 13:48:58 Spanish Medical Interpreter: [id number] Modifier: [id number] <+> 2 Implant Identification Description <+> 2 Implant Identification Lot Number <+> 2 Implant Identification [employer] Name: <+> 2 Implant Expiration Date <+> 2 Implant Site <+> 2 Implant Quantity <+> 2 Implant Identification Catalog Number <+> 2 Implant Has an Expiration Date <+> 2 Type [facility] IntraOp Intraoperative Assessment Entry 1 [...] Modified By: Gia Armendariz RN 03/14/19 13:07:39 [facility] IntraOp Intraoperative Equipment Entry 1 Equipment Intraop Monitoring Electrocardiogram Three lead placement (ECG) Electrode Placement Blood Pressure Non-Invasive BP Device Source Blood Pressure Arm, right upper Location Pulse Oximeter Hand, left Probe Site Antiembolic Devices Scopes Photo/Video Documentation Last Modified By: Gia Armendariz RN 03/14/19 13:08:03 [facility] IntraOp Medication Admin Entry 1 [...] Duncan, Richelle, RN 03/14/19 13:10:57 03/14/19 13:10:57 [facility] IntraOp Medication Admin Audit 03/14/19 13:58:22 Spanish Medical Interpreter: [id number] Modifier: [id number] 1 <*> Dose 50 [facility] IntraOp Patient Positioning Entry 1 [...] Modified By: Gia Armendariz RN 03/14/19 13:11:17 [facility] IntraOp Sign In Entry 1 [...] Modified By: Gia Armendariz RN 03/14/19 13:11:29 [facility] IntraOp Sign Out Entry 1 [...] Modified By: Gia Armendariz RN 03/14/19 13:11:49 [facility] IntraOp Sign Out Audit 03/14/19 14:01:07 Spanish Medical Interpreter: [id number] Modifier: [id number] <+> 1 Sign Out Comment <+> 1 RN Sign Out Signature Date/Time [facility] IntraOp Skin Prep Entry 1 Procedure Aortogram Abdominal with Runoff(Left) Prescribed N/A Pre-Surgical Prep Completed Prep Area LEFT ARM AND HAND TO AXILLA, BILATERAL GROINS, LEFT FOOT Intraop Prep Integumentary WDL Assessment WDL Prep Agents Chloraprep Prep by Gia Armendariz RN Hair Removal Methods No hair removal performed Last Modified By: Gia Armendariz RN 03/14/19 13:12:51 [facility] IntraOp Skin Prep Audit 03/14/19 13:29:16 Spanish Medical Interpreter: [id number] Modifier: [id number] 1 <*> Prep Area LEFT ARM AND HAND TO AXILLA, BILATERAL GROINS 1 <*> Procedure Aortogram Abdominal with Runoff(Left) [facility] IntraOp Surgical Procedures Entry 1 [...] LEFT SUPERFICIAL FEMORAL ARTERY ANGIOPLASTY AND STENTING [facility] Intra Surgical Procedures Audit 03/14/19 14:07:58 Spanish Medical Interpreter: [id number] Modifier: [id number] 1 <*> Stop 03/14/19 13:37:02 Spanish Medical Interpreter: [id number] Modifier: [id number] 1 <*> Procedure Aortogram Abdominal with Runoff [...] L ACCESS W/ ULTRASOUND ACCESS 03/14/19 13:28:04 Spanish Medical Interpreter: [id number] Modifier: [id number] 1 <*> Procedure Aortogram Abdominal with Runoff 1 <*> Additional Procedure Description LEFT RADIAL ACCESS UNDER ULTRASOUND GUIDANCE WITH LEFT UPPER EXTREMITY ANGIOGRAM, CATHETER PLACEMENT WITHIN AORTA; LEFT ACCESS UNDER ULTRASOUND GUIDANCE WITH [facility] IntraOP Time Out Entry 1 [...] Modified By: Gia Armendariz, RN 03/14/19 13:16:01 [facility] IntraOp X-Ray and Images Entry 1 X-Ray/Imaging Type Fluoroscopy Fluoroscopy Type Fixed Site OPSITE Roller Coaster Operator Name Coco Pfeiffer, Cardiovascular Weld Inspector Protective Devices Yes Used Exposure Time 6.6 MIN Last Modified By: Gia Armendariz RN 03/14/19 13:54:17 [facility] IntraOp X-Ray and Images Audit 03/14/19 13:54:17 Spanish Medical Interpreter: [id number] Modifier: [id number] <+> 1 Exposure Time Case Comments <None> [...]
--- OUTSIDE RECORDS SUMMARY | 2025-02-19 13:11 | XMS_ITS | Encounter Summary ---
Author Organization [employer] ([place], [place], [place], [place]) Address [address] [place] [address] Care Team Providers Care Physical Therapy Instructor Name Role Phone Unavailable Primary Care Provider Unavailabl e Encounter Details Date Type Department Care Team (Late st Contact Info) Description 03/14/2019 Transcribed Document [facility] [place] [address] [place] [address] ProviderRegina MD [address] [place] [address] Social History Tobacco Use Types [...] Regina Henley MD - 03/14/2019 4:15 PM CONFERENCE CENTER COORDINATOR Patient Education Materials Follows: Moderate Conscious Sedation, [...] you are awake and alert. ??? Take uofh-yjr-zvaaskr and prescription medicines only as told by [...] 01/30/2014 Document Revised: 09/13/2016 Document Reviewed: 07/31/2016 [employer] Interactive Patient Education ? 2019 [employer] Angiogram, Care After This sheet gives [...] and water are not available, use hand section hand helper. ? Change your dressing as told by [...] contrast dye from your body. ??? Take rapj-gwh-dtioifj and prescription medicines only as told by [...] 10/28/2005 Document Revised: 03/16/2017 Document Reviewed: 03/16/2017 [employer] Interactive Patient Education ? 2019 [employer] Angiogram An angiogram is a procedure [...] including vitamins, herbs, eye drops, creams, and pzja-btc-jqjrlec medicines. ??? Any problems you or family [...] 01/19/2006 Document Revised: 08/16/2017 Document Reviewed: 05/18/2017 [employer] Interactive Patient Education ? 2019 [employer] Cardiovascular Intermittent Claudication Intermittent claudication is [...] Consider working with a diet and nutrition counselor (dietitian) to help you make healthy food [...] blood pressure, or high cholesterol. ??? Take aqfs-arm-sojzlvp and prescription medicines only as told by [...] 02/11/2005 Document Revised: 05/12/2017 Document Reviewed: 05/12/2017 [employer] Interactive Patient Education ? 2019 [employer] Peripheral Vascular Disease Peripheral vascular disease [...] activities for you. General instructions ??? Take zepu-kxd-intmngv and prescription medicines only as told by [...] 05/19/2005 Document Revised: 05/19/2017 Document Reviewed: 05/19/2017 [employer] Interactive Patient Education ? 2019 [employer] documented in this encounter Plan of Treatment Not on file documented as of this encounter Visit Diagnoses Not on filedocumented in this encounter
--- OUTSIDE RECORDS SUMMARY | 2025-02-19 13:11 | XMS_ITS | Encounter Summary ---
Author Organization [employer] ([place], [place], [place], [place]) Address [address] [place] [address] Care Team Providers Care Neck Skewer Name Role Phone Unavailable Primary Care Provider Unavailabl e Encounter Details Date Type Department Care Team (Late st Contact Info) Description 02/12/2019 Transcribed Document [facility] [place] [facility] [place] [address] ProviderRegina MD [address] [place] [address] Social History Tobacco Use Types Packs/Day [...] 02/12/2019 15:39 EDT Electronically signed by Mickey [facility] Conversion Python Architect Cerner at 08/13/2022 11:19 AM CDT documented in this encounter Plan of Treatment Not on file documented as of this encounter Visit Diagnoses Not on filedocumented in this encounter
--- OUTSIDE RECORDS SUMMARY | 2025-02-19 13:11 | XMS_ITS | Encounter Summary ---
Author Organization [employer] ([place], [place], [place], [place]) Address [address] [place] [address] Care Team Providers Care Evidence Specialist Name Role Phone Unavailable Primary Care Provider Unavailabl e Encounter Details Date Type Department Care Team (Late st Contact Info) Description 03/13/2019 Transcribed Document [facility] [place] Family Medicine [facility] [place] [address] ProviderRegina MD [place] [address] Social History Tobacco Use Types [...] - Historical ProviderMD - 03/13/2019 1:53 PM METAL SPRAYER PRODUCTION PAT Adult Entered On: 03/13/2019 13:59 EST Performed On: 03/13/2019 13:53 EST by Susie Hernández RN Height and Weight, Clinical Dosing Height Source : Measured Height Entry Format : [place] Height, Feet : 0 ft(Converted to: 0 cm, 0 Inch) Height, Inches : 63 Inch(Converted to: 5 ft 3 Inch, 160.02 cm) Clinical Height : 160.02 cm Weight Source : Standing scale Weight Entry Format : [place] Clinical Dosing Weight : 85.95 kg Weight, Pounds : 189.1 lb Body Surface Area (BSA) : 1.89 m2 Body Mass Index : 33.6 kg/m2 (HI) [place] Body Weight : 52 kg Susie Hernández RN - 03/14/2019 11:07 EST Health Histories Smoking Status : Former smoker, quit more than 30 days ago Smokeless Tobacco Status : Never Implant/Device Type, Manager Mobile and Model : neck fusion and lumbar [...] Susie Hernández RN - 03/13/2019 13:53 EST [place] Suicide Severity Rating Scale (C-SSRS) CSSRS Past [...] Support Person/Pt Rep Name : Christine rodasgila [phone] Want Family/Rep/Phys Notified of Admit : No Emergency Contact #1 : see above Emergency Contact #1 Phone Number : . Emergency Contact #1 Relationship : . Emergency Contact #2 : . Emergency Contact #2 Phone Number : .. Emergency Contact #2 Relationship : . Information Obtained From : Patient Primary Language : Syriac Preferred Communication Mode : Verbal Communication Barrier : None Susie Hernánedz RN - 03/13/2019 13:53 EST [place] Scale [...]
--- OUTSIDE RECORDS SUMMARY | 2025-02-19 13:11 | XMS_ITS | Encounter Summary ---
Author Organization [employer] ([place], [place], [place], [place]) Address [address] [place] [address] Care Team Providers Care Plastic Surgery Nurse Name Role Phone Unavailable Primary Care Provider Unavailabl e Encounter Details Date Type Department Care Team (Late st Contact Info) Description 02/12/2019 Transcribed Document [facility] Radiology [address] [place] [address] Martinez Miller MD [address] [facility] [place] [address] Social History Tobacco Use Types Packs/Day Years [...] with large thigh collaterals with reconstitution of csbze-laq-wywa popliteal artery. 3. Recanalization of occluded right common iliac artery and placement of an 8 x 38 [employer] within the proximal right common with a kissing 8 x 27 left common iliac artery stent. 4. Distal right common iliac artery was treated with an 8 x 38 stent, and right external iliac artery occlusion was treated with a 7 x 39 [place] VBX. OPERATIVE DESCRIPTION: The patient was taken back to the operating room, placed in a supine on the operating room table. Following IV sedation, bilateral groins were widely prepped and draped in a standard sterile fashion. Time-out was taken. Under ultrasound guidance, left common femoral artery was accessed with a Micropuncture needle. A 5-Tanzanian sheath was placed. Flush catheter was advanced [...] with snare technique was used and a 7-Tanzanian sheath was advanced into the [place] aorta from the right femoral artery to [...] was treated with a 7 x 39 [place] VBX stent. Excellent results were achieved upon completion. Normal pulsatile flow was present within the right common femoral artery. Mynx closure device was used bilaterally. The patient was then taken back to Recovery in stable condition. No complications. /[id number] MD FARHAN NguyenA/BRIANNA / NNA / MODL /[id number] documented in this encounter Plan of Treatment Not on file documented as of this encounter Visit Diagnoses Not on filedocumented in this encounter
--- OUTSIDE RECORDS SUMMARY | 2025-02-19 13:11 | XMS_ITS | Encounter Summary ---
Author Organization [employer] ([place], [place], [place], [place]) Address [address] [place] [address] Care Team Providers Care Veneer Sorter Name Role Phone Unavailable Primary Care Provider Unavailabl e Encounter Details Date Type Department Care Team (Late st Contact Info) Description 03/14/2019 Transcribed Document [facility] Radiology [address] [place] [address] Martinez Miller MD [address] [facility] [place] [address] Social History Tobacco Use Types Packs/Day Years [...] Female : 1955 Associated Diagnoses: None Author: CHRSI LOVING APRN Chief Complaint PAD Review of [...] skin and nails, Oral, Daily, 0 Refill(s) [place] 7.5 mg-325 mg oral tablet: 1 Tab, [...] Medication hair, skin and nails, Oral, Daily [place] 7.5 mg-325 mg oral tablet 1 Tab, [...] Problems Cervical spinal stenosis / SNOMED CT 713170980 / Confirmed Smoker / SNOMED CT 223477502 / Confirmed Sinusitis / SNOMED CT 92819248 / Confirmed Seasonal allergies / SNOMED CT 708321491 / Confirmed Restless leg / SNOMED CT 43380644 / Confirmed Colon polyps / SNOMED CT 806206794 / Confirmed Pneumonia / SNOMED CT 154760807 / Confirmed Peripheral vascular disease / SNOMED CT 0574365444 / Confirmed Peptic ulcer / SNOMED CT 18061482 / Confirmed Osteoporosis / SNOMED CT 246273740 / Confirmed Neuropathy, R arm / SNOMED CT 3855185817 / Confirmed Migraines / SNOMED CT 85256800 / Confirmed Skin cancer / SNOMED CT 5210634787 / Confirmed Hypertension / SNOMED CT 1925903744 / Confirmed Hyperlipidemia / SNOMED CT 77801795 / Confirmed Elevated cholesterol / SNOMED CT 28328199 / Confirmed Hiatal hernia / SNOMED CT 461979327 / Confirmed Hemorrhoids / SNOMED CT 738524783 / Confirmed H/O: TIA / SNOMED CT 472886035 / Confirmed GERD (gastroesophageal reflux disease) / SNOMED CT 892755147 / Confirmed Gastritis / SNOMED CT 9767349 / Confirmed Fibromyalgia / SNOMED CT 73010644 / Confirmed Fibroids / SNOMED CT 849084566 / Confirmed Endometriosis / SNOMED CT 6119644332 / Confirmed Diverticulitis / SNOMED CT 668060077 / Confirmed Sinus problem / SNOMED CT 8445923490 / Confirmed Known medical problems / SNOMED CT 117464244 / Confirmed white spots on MRI Known medical problems / SNOMED CT 235780257 / Confirmed anti nuclear A and A antibodies Constipation / SNOMED CT 57652800 / Confirmed COPD (chronic obstructive pulmonary disease) / SNOMED CT 40633649 / Confirmed Chronic cough / SNOMED CT 423204785 / Confirmed Chronic constipation / SNOMED CT 600527731 / Confirmed Stroke, possible / SNOMED CT 822150781 / Confirmed Bursitis / SNOMED CT 378241403 / Confirmed Bronchitis / SNOMED CT 70171536 / Confirmed Back pain / SNOMED CT 013730530 / Confirmed At risk for sleep apnea / IMO 45201444 / Confirmed Arthritis / SNOMED CT 7282783 / Confirmed Anemia / SNOMED CT 337207295 / Confirmed Allergic rhinitis / SNOMED CT 775022065 / Confirmed, Active Problems (40) Allergic rhinitis [...] EST Height Source Measured Height Entry Format Loving Height/Length, KITTITIAN (ft) 0 ft Height/Length KITTITIAN 63 Inch CLINICALHEIGHT 160.02 cm Fowler Body Weight 52 kg Weight Source Standing scale Weight Entry Format Loving Weight Indonesian lb 189.1 lb CLINICALWEIGHT 85.95 kg Body [...] LLE weakness, uses cane. Integumentary: Warm, Dry, [place]. Neurologic: Alert, Oriented. Psychiatric: Cooperative, Appropriate mood [...]
--- OUTSIDE RECORDS SUMMARY | 2025-02-19 13:11 | XMS_ITS | Clinical Summary ---
Author Organization [facility] Address [address] [place] [address] Care Team Providers Care Associate Professor Of Theatre Name Role Phone Mustapha James MD Primary Care Provider + Allergies Active Allergy Reactions Criticality Noted Date Comments Atorvastatin Myalgia High 08/23/2022 Contrast Dye (Echo Or Unknown Ct/Mr) Anaphylaxis,Hives,Swe lling High 08/21/2021 Iodine dye but no iodine allergy Pseudoephedrine Palpitations Low 08/21/2021 Meperidine Other (See [...] Every Night. 30 tablet 2 024 Active Additional Information Patient not taking.Reason: as needed only, Reported on 02/04/2025 lisinopril (PRINIVIL,ZESTRIL ) 20 MG tablet TAKE 1 TABLET BY MOUTH ONCE DAILY 30 tablet 11 025 Active lansoprazole (PREVACID) 30 MG capsule Take 1 capsule by mouth Daily. 30 capsule 025 Active nystatin-triamcin olone (MYCOLOG II) 593401-6.1 UNIT/GM-% creamIndications: Intertrigo Apply 1 Application topically to the appropriate area as directed 2 (Two) Times a Day. 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 45 tablet 11 025 Active torsemide (DEMADEX) 20 MG tablet Take 1 tablet by mouth Daily. 30 tablet 025 Active levothyroxine (SYNTHROID, LEVOTHROID) 50 MCG tabletIndications :Acquired hypothyroidism TAKE 1 TABLET BY MOUTH ONCE DAILY 30 tablet 4 025 Active diazePAM (VALIUM) 5 MG tabletIndications :Generalized anxiety disorder Take 1 tablet by mouth Every 6 (Six) Hours As Needed for Anxiety. 120 tablet 2 025 Active spironolactone (ALDACTONE) 25 MG tablet Take 1 tablet by mouth Daily. Active HYDROcodone-aceta minophen (NORCO) 7.5-325 MG per tabletIndications :Failed back syndrome of lumbar spine,Spondylosis of lumbar region without myelopathy or radiculopathy,Art hritis of lumbar spine TAKE 1 TABLET BY MOUTH EVERY 8 HOURS NEEDED FOR MODERATE PAIN. 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 30 tablet 11 024 2024 Discontinued vitamin D (ERGOCALCIFEROL) 1.25 MG (07388 UT) capsule capsule TAKE 1 CAPSULE BY MOUTH 1 (ONE) TIME PER WEEK. 5 capsule 2 025 2024 Discontinued HYDROcodone-aceta minophen (NORCO) 7.5-325 MG per tabletIndications :Failed back syndrome of lumbar spine,Spondylosis of lumbar region without myelopathy or radiculopathy,Art hritis of lumbar spine Take 1 tablet by mouth Every 8 (Eight) Hours As Needed for Moderate Pain. 90 tablet 025 2024 Discontinued cefdinir (OMNICEF) 300 MG capsule Take 1 capsule by mouth 2 (Two) Times a Day for 7 days. 14 capsule 025 2024 Active Problems Problem Noted Date Diagnosed Date Severe aortic stenosis 07/24/2024 ERRONEOUS ENCOUNTER--DISREGARD 01/06/2024 NSCLC of right lung 03/01/2023 Cancer Staging:Clinical stage from 08/18/2023:Stage IB(cT2a, cN0, cM0) - Signed by Derik Conn MILL SUPERVISOR on 08/18/2023 Peripheral artery disease 03/02/2022 Lung [...] radiculopathy 08/21/2021 Coronary artery disease invo lving pit river coronary artery of pit river heart without angina pectoris 08/21/2021 Overview (01/24/2024): Vp Human Resources Dr. Omar Chavez Assessment & Plan (01/24/2024 3:35 PM EDT): Condition is stable. Continue regular follow-up with [facility] cardiology. Regarding her LDL goal of less than 55 this is only achievable for the patient with combination therapy. She will continue Repatha. I have prescribed bempedoic acid although anticipate this will need a prior authorization and likely be cost prohibitive. Consideration could also be given to Kae which patient should discuss with her pickup driver. Lipid panel will be ordered today Pulmonary emphysema 08/21/2021 Overview (08/21/2021): Equipment Service Engineer Dr. Ally James Acquired hypothyroidism 08/21/2021 Assessment [...] Encounters Date Type Department Care Team Description 02/11/[address] [facility] [address] [facility] [address] [place] [address] Keli Aaron APRN Advice Only 02/08/2025 Results Follow-Up [facility] [address] [facility] [address] [place] [address] Layla Ochoa MD 02/04/2025 11:00 AM EDT Office Visit [facility] [address] [facility] [address] [place] [address] Chirag Mckee MD NSCLC of right lung (Primary Dx) 02/04/2025 8:25 AM EDT - 02/04/2025 11:59 PM EDT Hospital Encounter [facility] [address] [facility] [address] [place] [address] Discharge Disposition: Home or Self Care 02/04/2025 8:24 AM EDT - 02/04/2025 11:59 PM EDT Hospital Encounter [facility] [address] [facility] [address] [place] [address] Lung nodule Discharge Disposition: Home or Self Care 02/04/2025 Travel 02/01/2025 5:05 AM EDT Hospital Encounter [facility] [address] [facility] [address] [place] [address] 02/01/2025 Travel 02/01/2025 Patient rounding ([facility] only) [facility] [address] [facility] [address] [place] [address] Rosangela Otoole RegSched Rep 01/29/2025 9:30 AM EDT Office Visit [facility] [address] [facility] [address] [place] [address] Daniel Quezada APRN Severe aortic stenosis (Primary Dx) 01/29/2025 Travel 01/28/[address] 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 01/22/2025 11:07 AM EDT - 01/22/2025 11:59 PM EDT Hospital Encounter [facility] [address] [place] [phone] Encounter for examination for normal comparison or control in clinical research program Discharge Disposition: Home or Self Care 01/22/2025 11:07 AM EDT - 01/22/2025 11:59 PM EDT Hospital Encounter [facility] [address] [place] [address] Encounter for examination for normal comparison or control in clinical research program Discharge Disposition: Home or Self Care 01/18/[address] 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 [address] [facility] [address] [place] [address] Layla Ochoa MD 01/01/2025 4:30 PM EDT Ancillary Procedure [facility] [address] [facility] [address] [place] [address] Failed back syndrome of lumbar spine; Chronic pain syndrome; Spondylosis of cervical region without myelopathy or radiculopathy; Shortness of breath; Ventricular tachycardia (paroxysmal); Palpitations 01/01/2025 3:00 PM EDT Office Visit 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 [address] [facility] [address] [place] [address] Layla Ochoa MD 12/27/2024 2:00 PM EDT Office Visit 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 [address] [place] [address] Mustapha James MD Failed back syndrome of lumbar spine; Spondylosis of lumbar region without myelopathy or radiculopathy; Arthritis of lumbar spine; Generalized anxiety disorder 12/25/[address] [facility] [address] [facility] [address] [place] [address] Keli Aaron, MILL SUPERVISOR 12/21/2024 Documentation [facility] [address] [phone] Mary Grace Zhu, HVAC CONTROLS TECHNICIAN 12/19/2024 Documentation [facility] [address] [facility] [address] [place] [address] Lauren Velasco, HVAC CONTROLS TECHNICIAN 12/06/2024 2:00 PM EDT Clinical Support [facility] [address] [place] [address] Chirag Mckee MD NSCLC of right lung (Primary Dx) 12/06/2024 6:05 AM EDT - 12/06/2024 11:59 PM EDT Hospital Encounter [facility] [address] [phone] Discharge Disposition: Home or Self Care 12/06/2024 Travel 12/06/2024 Telephone [facility] [address] [place] [phone] Elisha Hilario, PATRICIA 12/03/2024 Documentation [facility] [address] [place] [address] Bertha Ambrose, PATIRCIA 12/03/2024 Telephone [facility] [address] [place] [address] Berhta Ambrose, RN 11/28/2024 Refill [facility] [address] [place] [address] Mustapha James MD Acquired hypothyroidism 11/21/2024 Documentation [facility] [address] [facility] [address] [place] [phone] Lauren Velasco, HVAC CONTROLS TECHNICIAN from Last 3 Months Immunizations Immunization Administration [...] Mass Index 32.64 02/04/2025 10:51 AM EDT Plan of Treatment Upcoming Encounters Date Type Department Care Team (Late st Contact Info) Description 03/28/2025 1:45 PM EST Office Visit [facility] [address] [facility] [place] [address] Mustapha James MD [address] [facility] [place] [address] 04/12/2025 1:30 PM EST Clinical Support [facility] [address] [place] [address] Chirag Mckee MD [address] [facility] [place] [address] Health Maintenance Due Date Last Done Comments DXA SCAN 1955 ZOSTER VACCINE (1 of 2) 1972 COLOGUARD 1998 COLON CANCER SCREENING 5 YEA R SIGMOIDOSCOPY 1998 CT COLONOGRAPHY 1998 FECAL OCCULT BLOOD TEST 1998 FIT Testing (1 year) 1998 HEPATITIS C SCREENING 07/24/2021 INFLUENZA VACCINE 11/23/2024 01/24/2024, , 03/02/2022, Additional history exists COVID-19 Vaccine ( - 2024-2 6 season) 2024 02/24/2022, 04/01/2021, 08/06/2020, Additional history exists MAMMOGRAM 05/23/2025 05/19/2023 ANNUAL WELLNESS VISIT 06/08/2025 06/08/2024 , [...] GLUCOSE FINGERSTICK Routine 02/04/2025 8:54 AM EDT OUTSIDE INVASIVE CARDIOLOGY STUDY Routine 01/22/2025 11:07 AM EDT Encounter for examination for normal comparison or control in clinical research program OUTSIDE INVASIVE CARDIOLOGY STUDY Routine 01/22/2025 11:07 AM EDT Encounter for examination for normal comparison or control in clinical research program DUPLEX CAROTID BILATERAL CAR - PERFORMED PROCEDURE Routine 01/15/2025 10:10 AM EDT 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 Aortic stenosis, moderate SE QUAD ONLY W/ DOBUTAMINE Routine 01/15/2025 9:11 AM EDT Palpitations ECG 12-LEAD Routine 01/01/2025 4:34 PM EDT Palpitations HOLTER MONITOR >7DAYS UP TO 15 DAYS ([id number]) Routine 01/01/2025 4:26 PM EDT Failed back syndrome of lumbar spine Chronic pain syndrome Spondylosis of cervical region without myelopathy or radiculopathy Shortness of breath Ventricular tachycardia (paroxysmal) Palpitations SCANNED - LABS 12/18/2024 SCANNED - LABS 12/18/2024 SCANNED - LABS 12/18/2024 SCANNED - LABS 11/29/2024 CT OUTSIDE CHEST Routine 11/29/2024 12:0 0 AM EDT SCANNED - IMAGING 11/29/2024 POC ALBUMIN/CREATININE RATIO Routine 06/08/2024 1:03 PM EST Essential hypertension CT CHEST WO CONTRAST DIAGNOSTIC Routine 02/14/2024 3:12 PM EDT NSCLC of right lung SCANNED - MAMMO 05/19/2023 HEMOGLOBIN A1C Routine 06/03/2022 2:35 PM EST Paresthesia and pain of both upper extremities Prediabetes from Last 3 Months or Most Recently Relevant to Health Maintenance Results * NM PET/CT Skull Base to [...] DO 02/04/2025 12:12 PM EDT Workstation ID: [id number] Narrative 02/04/2025 12:12 PM EDT FDG NM PET/CT SKULL BASE TO MID THIGH Date of Exam: 02/04/2025 8:45 AM EDT Indication: lung nodule. History of non-small cell right lung cancer initially diagnosed in June 2022 status post stereotactic radiation therapy Comparison: Chest CT dated 11/29/2024, 07/07/2022 from [facility] in [place], [place], CT of the chest abdomen pelvis with contrast dated 08/15/[address] [facility]. PET/CT from [facility] dated 02/14/2023 comparison is also made with chest CTs without contrast from [facility] dated 02/14/2024 and 08/18/2023 Technique: 13.63 [...] Comparison: Chest CT dated 11/29/2024, 07/07/2022 from [facility] in [place], [place], CT of the chest abdomen pelvis withcontrast dated 08/15/2024 from [facility]. PET/CT from [facility] dated 02/14/2023omparison is also made with chest CTs without contrast from [facility] dated 02/14/2024 and 08/18/2023 Technique: 13.63 [...] head, abdomen, pelvis orosseous structures. Electronically Signed: Sureshnixon Nelson, 02/04/2025 12:12 PM EDT Workstation ID: [id number] Chirag Mckee MD [facility] NM ORDERABLES Final Resul t * POC Glucose Once (02/04/2025 8:54 AM EDT) Glucose 110 70 - 130 mg/dL 02/04/2025 8:57 AM EDT [facility] Comment:Serial Number: [id number]: [id number] Blood 02/04/2025 8:54 AM EDT 02/04/2025 8:57 AM EDT Chirag Mckee MD POINT OF CARE TEST ORDERABLES Final Result [facility]
[address] [facility] [address] [place] [address], * OUTSIDE INVASIVE CARDIOLOGY STUDY (01/22/2025 11:07 AM EDT) Only the most recent of2 resultswithin the time period is included. Narrative SYSTEMGENERATED, DOCUMENTATION - 01/22/2025 11:07 AM EDT This procedure was auto-finalized with no dictation required. Miguel Montero MD [facility] CARDIAC SERVICES ORDERABLES Final Result * DUPLEX CAROTID BILATERAL CAR - PERFORMED [...] study is limited due to patient positioning. Layla Ochoa MD CV VASCULAR ORDERABLES Final Result * SE QUAD ONLY W/ DOBUTAMINE (01/15/2025 9:11 AM EDT) Pathologist [facility] CV STRESS PROTOCOL 1 Pharmacologic Stage 1 [...] couplets. Recovery arrhythmias comment: Ventricular trigeminy Test Tool Supervisor ECG Gray Study Quality The study is technically adequate for diagnosis. us Layla Ochoa MD CV ECHO ORDERABLES Sheyla l Result * ECG 12-LEAD (01/01/2025 4:34 PM [...] wave progression. Left axis deviation. Prolonged QT. Result [facility] Layla Ochoa MD ECG ORDERABLES Edited Result - Final * HOLTER MONITOR >7DAYS UP TO 15 DAYS ([id number]) (01/01/2025 4:26 PM EDT) Anatomical Region Laterality [...] 01/07/2025. No sustained arrhythmias. No diary entries. Result [facility] Layla Ochoa MD [facility] CARDIAC SERVICES ORD ERABLES Final Result * LABS SCANNED (12/18/2024) Only the most recent of4 resultswithin the time period is included. Mustapha James MD LAB BLOOD ORDERABLES Fin al Result * CT Outside Chest (11/29/2024 12:00 AM EDT) Narrative SYSTEMGENERATED, DOCUMENTATION - 11/30/2024 10:35 AM EDT This procedure was auto-finalized with no dictation required. Chirag Mckee MD IMG CT ORDERABLES Final Resul t * IMAGING SCANNED (11/29/2024) Anatomical Region Laterality Modality Radiographic Chery ging Mustapha James MD [facility] DIAGNOSTIC IMAGING O RDERABLES Final Result * (ABNORMAL) Albumin/Creatinine Ratio Urine (06/08/2024 [...] MD 02/15/2024 10:36 PM EDT Workstation ID: [id number] Narrative 02/15/2024 10:[address] CHEST [...] MD 02/15/2024 10:36 PM EDT Workstation ID: [id number] Derik Conn APRN IMG CT ORDERABLES Final [...] AM EST Performed at: 01 - [facility] [address] [facility], [place], [place] [id number] Transition Rn: Jason Bullock PhD, Phone: [phone] Mustapha James MD LAB BLOOD ORDERABLES Fin al Result [facility] [address] [place] [address], [facility] [address] [place] [address], from Last 3 Months or Most Recently Relevant to Health Maintenance Insurance JOHANNA ADAMAQASIM SANCHEZ [id number] [employer] MEDICARE ADVANTAGE PPO Advance Directives Documents on File Type Date Recorded Patient Six Sigma Project Manager Expl anation POWER OF DRAFTER STRUCTURAL - SCAN 09/13/2022 11:26 AM POWER OF DRAFTER STRUCTURAL, [facility], 02/05/2022 Care Teams Associate Professor Of Theatre Relationship Specialty Start Date End Date Mustapha James MD [address] [facility] [place] [address] PCP - General Family Medicine 01/02/24
--- OUTSIDE RECORDS SUMMARY | 2025-02-19 13:11 | XMS_ITS | Encounter Summary ---
Author Organization [facility] ([place], [place], [place], [place]) Address [address] [place] [address] Care Team Providers Care Quality Control Clerk Name Role Phone Unavailable Primary Care Provider Unavailabl e Encounter Details Date Type Department Care Team (Late st Contact Info) Description 03/14/2019 Transcribed Document [facility] Medicine [facility] [place] [address] ProviderRegina MD [address] [place] [address] Social History Tobacco Use Types Packs/Day Years Used Date Smoking Tobacco: Never Assessed Comments Unknown Sex and Gender Information Value Date Recorded Sex Assigned at Not on file Legal Sex Female 5:00 PM CDT Gender Identity Not on file Sexual Orientation Not on file documented as of this encounter Miscellaneous Notes * Cerner Conversion Note - Regina ProviderMD - 03/14/2019 12:37 PM FURNITURE ASSOCIATE [facility] Main OR Preop Summary Primary Physician: TONY PEÑA MD-SUR Finalized Date/Time: 03/14/19 13:13:44 Pt. Name: THOMAS GTZ SRIRAM Reynolds/Sex: 1955 Female Med Rec #: [id number] Physician: TONY PEÑA MD-SUR Financial #: [id number] Pt. Type: O Room/Bed: Admit/Disch: 03/14/19 09:48:00 - Institution: [facility] PreOp Case Times Entry 1 In Preop 03/14/19 10:14:00 Ready for Holding n/a Room Patient Ready for 03/14/19 11:25:00 Surgery Patient Out of Preop 03/14/19 12:14:00 Patient Out of n/a Holding Room Last Modified By: Susie Hernández, RN 03/14/19 13:13:43 [facility] PreOp Case Times Audit 03/14/19 13:13:43 Cheese Packer: [email or web address] Modifier: [email or web address] <+> 1 Patient Out of Preop 03/14/19 11:25:55 Cheese Packer: [email or web address] Modifier: [email or web address] <+> 1 Patient Ready for Surgery Finalized By: Susie Hernández RN Document Signatures Signed By: Susie Hernández RN 03/14/19 13:13 Electronically signed by Mickey [facility] Conversion Computer Help Desk Specialist Cerner at 08/13/2022 11:17 AM CDT documented in this encounter Plan of Treatment Not on file documented as of this encounter Visit Diagnoses Not on filedocumented in this encounter
--- OUTSIDE RECORDS SUMMARY | 2025-02-19 13:11 | XMS_ITS | Encounter Summary ---
Author Organization [employer] ([place], [place], [place], [place]) Address [address] [place] [address] Care Team Providers Care Epic Willow Analyst Name Role Phone Unavailable Primary Care Provider Unavailabl e Encounter Details Date Type Department Care Team (Late st Contact Info) Description 02/12/2019 Transcribed Document [facility] [place] [facility] [place] [address] ProviderRegina MD [address] [place] [address] Social History Tobacco Use Types Packs/Day [...] Henley MD - 02/12/2019 5:22 PM CDT [facility] [place] [address] THOMAS GTZ SRIRAM :1955 Visit Time:02/12/2019 Your Visit Summary Your Care Team Admitting Physician - TONY PEÑA MD-SUR Attending Physician - TONY PEÑA MD-SUR Primary Care Physician - JACKIE BABIN MD-FAM Referring Physician - JACKIE BABIN MD-FAM PHY, NOT LISTED Your Diagnosis Atherosclerosis of hoh arteries of extremities with intermittent claudication, unspecified extremity, Atherosclerosis of hoh arteries of extremities with intermittent claudication, unspecified [...] has been made with JOEY[employer]. Where: [address] [place], [place] [phone] Medications What How Much When Instructions Next Dose acetaminophen-hydrocodone (Venetia 7.5 mg-325 mg oral tablet) 1 Tablet(s) [...] Document Reviewed: 05/14/2011 ExitCare?? Patient Information ??2013 [employer]. Angiogram, Care After This sheet gives you [...] and water are not available, use hand flare man. ? Change your dressing as told by [...] contrast dye from your body. ??? Take rfdw-kcr-cvcyivs and prescription medicines only as told by [...] 10/28/2005 Document Revised: 03/16/2017 Document Reviewed: 03/16/2017 Room Choice Interactive Patient Education ?? 2019 [employer]. Moderate Conscious Sedation, Adult, Care After These [...] you are awake and alert. ??? Take oytu-bql-hvzgkmp and prescription medicines only as told by [...] 01/30/2014 Document Revised: 09/13/2016 Document Reviewed: 07/31/2016 Room Choice Interactive Patient Education ?? 2019 [employer]. clopidogrel (kloe PID oh grel) Plavix What [...] may report side effects to FDA at 4-910-GDG-9670. What other drugs will affect clopidogrel? Certain other medicines may increase your risk of bleeding, including aspirin. Avoid taking aspirin unless your doctor tells you to. Tell your doctor about all your other medicines, especially: ?? any other medicines to treat or prevent blood clots; ?? a stomach acid storehouse clerk such as omeprazole, Nexium, or Prilosec; ?? an antidepressant; ?? an opioid medication; ?? a blood thinner--warfarin, Coumadin, Jantoven; or ?? NSAIDs (nonsteroidal anti-inflammatory drugs)--ibuprofen (Advil, Motrin), naproxen (Aleve), celecoxib, diclofenac, indomethacin, meloxicam, and others. This list is not complete. Other drugs may affect clopidogrel, including prescription and azlw-xxq-bqvoewy medicines, vitamins, and herbal products. Not all [...] to ensure that the information provided by [employer]. ('[employer]') is accurate, up-to-date, and complete, but no guarantee is made to that effect. Drug information contained herein may be time sensitive. [employer] information has been compiled for use by healthcare practitioners and consumers in the [place] and therefore [employer] does not warrant that uses outside of the [place] are appropriate, unless specifically indicated otherwise. [employer]'s drug information does not endorse drugs, diagnose patients or recommend therapy. [employer] drug information is an informational resource designed [...] with your doctor, nurse or pharmacist. Copyright 7450-7761 [employer]. Version: 15.. Revision Date: 02/13/2018. Emergency Awareness [...] Assistance with quitting is available by contacting 1-632-AWNV-NOW. This is a free resource providing counseling, [...] was given the opportunity to ask questions. Patient/Delineator Name: Patient/Delineator Signature: Relationship to Patient: Clinician/Hospital Delineator Signature: Date: Electronically signed by [facility], [facility] Conversion Laundry Marker Supervisor Andrew at 08/13/2022 11:17 AM CDT documented in this encounter Plan of Treatment Not on file documented as of this encounter Visit Diagnoses Not on filedocumented in this encounter
--- OUTSIDE RECORDS SUMMARY | 2025-02-19 13:11 | XMS_ITS | Encounter Summary ---
Author Organization [employer] ([place], [place], [place], [place]) Address [address] [place] [address] Care Team Providers Care Geospatial Developer Name Role Phone Unavailable Primary Care Provider Unavailabl e Encounter Details Date Type Department Care Team (Late st Contact Info) Description 03/14/2019 Transcribed Document [facility] [address] [place] [address] Martinez Miller MD [address] [facility] [place] [address] Social History Tobacco Use Types Packs/Day Years [...] allow for placement and advancement of a 6-Turkish sheath. 3. Catheter placement within the aorta. 4. Aortography demonstrating patency of bilateral common iliac artery stents. 5. Inability to access the occluded left superficial femoral artery through an antegrade fashion. 6. Successful recanalization of occluded superficial femoral artery through pedal access and placement of a 5 x170 LifeStent. OPERATIVE DESCRIPTION: The patient was taken back to the gold leaf laborer and placed in supine position. Following [...] Attempts to advance a radio to peripheral 6-Turkish sheath was performed, fortunately successful. This got [...] successfully with a micropuncture wire. A low-profile 6-Turkish sheath was placed. Left lower extremity angiogram [...] Recovery in stable condition. No immediate complications. /[id number] Martinez Miller MD NNA/AQ / NNA / MODL /[id number] documented in this encounter Plan of Treatment Not on file documented as of this encounter Visit Diagnoses Not on filedocumented in this encounter
--- OUTSIDE RECORDS SUMMARY | 2025-02-19 13:11 | XMS_ITS | Clinical Summary ---
Author Organization [employer] ([place], [place], [place], [place]) Address [address] [place] [address] Care Team Providers Care Snowmaker Name Role Phone Unavailable Primary Care Provider [...] Date Mathew rded Speak language other than Maltese at home Not on file 05/13/2023 Want [...] (2 of 2 - PCV) 09/29/2016 09/30/2015 Falls Risk Screening 04/25/2024 COVID-19 VACCINE (5 - 2024-2 6 season) 2024 02/24/2022, 04/01/2021, 08/06/2020, Additional history exists Influenza Vaccine (#1) 2024 , 01/23/2019, 01/23/2019 DTAP/TDAP/TD VACCINES (2 - T d or Tdap) 06/29/2025 06/30/2015 Respiratory Syncytial Virus (RSV) Adult or (1 - 1-dose 75+ series) 2028
--- OUTSIDE RECORDS SUMMARY | 2025-02-19 13:11 | XMS_ITS | Encounter Summary ---
Author Organization [employer] (Inspect Manager) ([place], [place], [place], [place]) Address [address] [place] [address] Care Team Providers Care Sprayer Automatic Spray Machine Name Role Phone Unavailable Primary Care Provider Unavailabl e Encounter Details Date Type Department Care Team (Late st Contact Info) Description 03/14/2019 Transcribed Document [facility] [place] [address] [place] [address] ProviderRegina MD [facility] [place], [place] [address] Social History Tobacco Use Types Packs/Day Years Used Date Smoking Tobacco: Never Assessed Comments Unknown Sex and Gender Information Value Date Recorded Sex Assigned at Not on file Legal Sex Female 5:00 PM CDT Gender Identity Not on file Sexual Orientation Not on file documented as of this encounter Miscellaneous Notes * Cerner Conversion Note - Historical ProviderMD - 03/14/2019 4:16 PM JAPANESE INTERPRETER Nursing Discharge Summary Entered On: 03/14/2019 16:19 [...] 03/14/2019 16:16 EST Electronically signed by Mickey [facility] Conversion Store Assistant Cerner at 08/13/2022 11:21 AM CDT documented in this encounter Plan of Treatment Not on file documented as of this encounter Visit Diagnoses Not on filedocumented in this encounter
--- OUTSIDE RECORDS SUMMARY | 2025-02-19 13:12 | XMS_ITS | Encounter Summary ---
Author Organization [facility] Address [address] [place] [address] Care Team Providers Care Repairer Sash And Door Name Role Phone Mustapha James MD Primary Care Provider + Reason for Visit * Reason Comments Med Refill Encounter Details Date Type Department Care Team (Late st Contact Info) Description 12/26/2024 Refill [facility] [address] [place] [address] Mustapha James MD [address] [place] [address] Failed back syndrome of lumbar [...] Description 03/28/2025 1:45 PM EST Office Visit [facility] [address] [place] [phone] Mustapha James MD [address] [place] [address] 04/12/2025 1:30 PM EST Clinical Support [facility] [address] [place] [address] Chirag Mckee MD [address] [place] [address] documented as of this encounter Visit Diagnoses Diagnosis 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
--- OUTSIDE RECORDS SUMMARY | 2025-02-19 13:12 | XMS_ITS | Encounter Summary ---
[facility] Organization [facility] Address [address] [place] [address] Care Team Providers Care Risk And Insurance Manager Name Role Phone Mustapha James MD Primary Care Provider + Encounter Details Date Type Department Care Team (Late st Contact Info) Description 12/21/2024 Documentation [facility] [address] [facility] [address] [place] [address] Mary Grace Zhu MSW Social History Tobacco Use Types Packs/Day Years [...] as of this encounter Miscellaneous Notes * Significant Note - Mary Grace Zhu MSW - 12/21/2024 2:12 PM EDT 12/21/24 [address] [place] Operator Navigation Current Status Screening Location of Visit Telephone Visit Diagnosis/Cancer Site Lung Cancer Barriers to Care Transportation Intervention Tasks Performed Education;Other (Explaining appointment dates, times, and locations.) Time Spent With Patient 45 Total Time Spent With Patient 45 SW engaged in active listening while pt explained her myriad barriers surrounding transportation, past medical trauma, and expressed confusion about how and where to be for her upcoming appointments.SW provided support and understanding for pt's negative experiences. SW confirmed pt's future appoin tment dates, times, and locations. Pt proceeded to inquire how to navigate the hospital in relationto nearby roads. SW encouraged pt to ask for directions once she enters the hospital. Pt voiced understanding and continued to engage in active listening while pt shared her past medical history. SW made sure to affirm that pt does have transportation for 02/04. Pt thanked PEARL and agreed to call to ensure her appointments are correct as pt remained confused. SW will remain available ongoing. documented in this encounter Plan of Treatment Upcoming Encounters Date Type Department Care Team (Late st Contact Info) Description 03/28/2025 1:45 PM EST Office Visit [facility] [address] [facility] [place] [address] Mustapha James MD [address] [place] [address] 04/12/2025 1:30 PM EST Clinical Support [facility] [address] [place] [address] Chirag Mckee MD [address] [place] [address] documented as of this encounter Visit Diagnoses Not on filedocumented in this encounter Additional Health Concerns Assessment Noted Time PHQ-2 Depression Total Score: 1 10/24/19 24 2:19 PM EDT documented as of this encounter Care Teams Risk And Insurance Manager Relationship Specialty Start Date End Date Mustapha James MD [address] [place] [address] PCP - General Family Medicine 01/02/24 documented as of this encounter
--- OUTSIDE RECORDS SUMMARY | 2025-02-19 13:12 | XMS_ITS | Referral Summary ---
Author Organization [employer] ([place], [place], [place], [place]) Address [address] [place] [address] Care Team Providers Care Grades 1 Through 6 Teacher Name Role Phone Unavailable Primary Care [...] Date Mathew rded Speak language other than [place] at home Not on file 05/13/2023 Want [...]
--- OUTSIDE RECORDS SUMMARY | 2025-02-19 13:12 | XMS_ITS | Encounter Summary ---
Author Organization [facility] Address [address] [place] [address] Care Team Providers Care Construction Craft Laborer Name Role Phone Mustapha James MD Primary Care Provider + Encounter Details Date Type Department Care Team (Latest Contact Info) Description 12/27/2024 Travel Social History Tobacco Use Types Packs/Day [...] [facility] [address] [place] [phone] Mustapha James MD [address] [place] [address] 04/12/2025 1:30 PM EST Clinical Support [facility] [address] [place] [address] Chirag Mckee MD [address] [place] [address] documented as of this encounter Visit Diagnoses Not on filedocumented in this encounter Additional Health Concerns Assessment Noted Time PHQ-2 Depression Total Score: 1 10/24/19 24 2:19 PM EDT documented as of this encounter Care Teams Construction Craft Laborer Relationship Specialty Start Date End Date Mustapha James MD [address] [place] [address] PCP - General Family Medicine 01/02/24 documented as of this encounter
--- OUTSIDE RECORDS SUMMARY | 2025-02-19 13:12 | XMS_ITS | Encounter Summary ---
Author Organization [facility] Address [address] [place] [address] Care Team Providers Care Supervisor Self Service Store Name Role Phone Mustapha James MD Primary Care Provider + Encounter Details Date Type Department Care Team (Latest Contact Info) Description 02/01/2025 Travel Social History Tobacco Use Types Packs/Day [...] Description 03/28/2025 1:45 PM EST Office Visit [facility] [address] [place] [phone] Mustapha James MD [address] [place] [address] 04/12/2025 1:30 PM EST Clinical Support [facility] [address] [place] [address] Chirag Mckee MD [address] [place] [address] documented as of this encounter Visit Diagnoses Not on filedocumented in this encounter Additional Health Concerns Assessment Noted Time PHQ-2 Depression Total Score: 1 10/24/19 24 2:19 PM EDT documented as of this encounter Care Teams Supervisor Self Service Store Relationship Specialty Start Date End Date Mustapha James MD [address] [place] [address] PCP - General Family Medicine 01/02/24 documented as of this encounter
--- OUTSIDE RECORDS SUMMARY | 2025-02-19 13:12 | XMS_ITS | Encounter Summary ---
[facility] Address [address] [place] [address] Care Team Providers Care Curriculum Development Coordinator Name Role Phone Mustapha James MD Primary Care Provider + Encounter Details Date Type Department Care Team (Late st Contact Info) Description 01/09/2025 Telephone [facility] [address] [facility] [address] [place] [address] Layla Ochoa MD [address] [facility] [address] [place] [address] Social History Tobacco Use Types Packs/Day Years [...] encounter Miscellaneous Notes * Telephone Encounter - Jb Harden RN - 01/09/2025 2:21 PM EDT Patient left voice mail message. She states she does not know when to take off this thing on her chest. She requests a return call. Spoke with patient. She wants to know if she can take off her monitor. She then states she can not find a [employer] to send back the monitor. She wants to know if she can bring it to the office. She is instructed it must go through [employer]. We do not process the monitors. I will talk to the monitor department and call her back. Spoke with Valerie in the monitor department. Patient can call the 1-800 [employer] numb er to arrange a forklift picker. Spoke with patient. Phone number for [employer] given. All questions answered about TAVR procedure and sheverbalizes understanding. documented in this encounter Plan of Treatment Upcoming Encounters Date Type Department Care Team (Late st Contact Info) Description 03/28/2025 1:45 PM EST Office Visit [facility] [address] [facility] [place] [address] Mustapha James MD [address] [facility] [place] [address] 04/12/2025 1:30 PM EST Clinical Support [facility] [address] [place] [phone] Chirag Mckee MD [address] [place] [address] documented as of this encounter Visit Diagnoses Not on filedocumented in this encounter Additional Health Concerns Assessment Noted Time PHQ-2 Depression Total Score: 1 10/24/19 24 2:19 PM EDT documented as of this encounter Care Teams Curriculum Development Coordinator Relationship Specialty Start Date End Date Mustapha James MD [address] [place] [address] PCP - General Family Medicine 01/02/24 documented as of this encounter
--- OUTSIDE RECORDS SUMMARY | 2025-02-19 13:12 | XMS_ITS | Encounter Summary ---
Author Organization [facility] Address [address] [place] [address] Care Team Providers Care Systems Analysis Manager Name Role Phone Mustapha James MD Primary Care Provider + Encounter Details Date Type Department Care Team (Late st Contact Info) Description 12/31/2024 Telephone [facility] [address] [facility] [address] [place] [address] Layla Ochoa MD [address] [facility] [address] [place] [address] Social History Tobacco Use Types [...] Telephone Encounter - Jb Harden RN - 12/31/2024 3:03 PM EDT LM for patient that she had an appointment tomorrow for a TAVR evaluation with PW. She is encouraged to come 15-20 minutes early for paperwork, etc. Also, if she can not make this appointment, to call office scheduling to cancel. documented in this encounter Plan of Treatment Upcoming Encounters Date Type Department Care Team (Late st Contact Info) Description 03/28/2025 1:45 PM EST Office Visit [facility] [address] [facility] [place] [phone] Mustapha James MD [address] [place] [address] 04/12/2025 1:30 PM EST Clinical Support [facility] [address] [place] [address] Chirag Mckee MD [address] [place] [address] documented as of this encounter Visit Diagnoses Not on filedocumented in this encounter Additional Health Concerns Assessment Noted Time PHQ-2 Depression Total Score: 1 10/24/19 24 2:19 PM EDT documented as of this encounter Care Teams Systems Analysis Manager Relationship Specialty Start Date End Date Mustapha James MD [address] [place] [address] PCP - General Family Medicine 01/02/24 documented as of this encounter
--- OUTSIDE RECORDS SUMMARY | 2025-02-19 13:12 | XMS_ITS | Encounter Summary ---
Author Organization [facility] Address [address] [place] [address] Care Team Providers Care Inseam Trimming Machine Operator Name Role Phone Mustapha James MD Primary Care Provider + Encounter Details Date Type Department Care Team (Latest Contact Info) Description 01/01/2025 Travel Social History Tobacco Use Types Packs/Day [...] Description 03/28/2025 1:45 PM EST Office Visit [facility] [address] [place] [phone] Mustapha James MD [address] [place] [address] 04/12/2025 1:30 PM EST Clinical Support [facility] [address] [place] [address] Chirag Mckee MD [address] [place] [address] documented as of this encounter Visit Diagnoses Not on filedocumented in this encounter Additional Health Concerns Assessment Noted Time PHQ-2 Depression Total Score: 1 10/24/19 24 2:19 PM EDT documented as of this encounter Care Teams Inseam Trimming Machine Operator Relationship Specialty Start Date End Date Mustapha James MD [address] [place] [address] PCP - General Family Medicine 01/02/24 documented as of this encounter
--- OUTSIDE RECORDS SUMMARY | 2025-02-19 13:12 | XMS_ITS | Encounter Summary ---
Author Organization [facility] Address [address] [place] [address] Care Team Providers Care Storage Manager Name Role Phone Mustapha James MD Primary Care Provider + Encounter Details Date Type Department Care Team (Late st Contact Info) Description 12/25/2024 Documentation [facility] [address] [place] [address] Keli Aaron, PRIVATE BANKER [address] [facility] [address] [place] [address] Social History Tobacco Use Types [...] as of this encounter Progress Notes * Keli Aaron APRN - 12/25/2024 10:10 AM EDT Referral received from Dr. Ray for moderate-severe aortic valve stenosis. CTA with TAVR protocol completed at , requested that images be reviewed by [facility] clinical specialists- see Media tab. Poor candidate for transfemoral TAVR. Consult with Dr. Ochoa is scheduled for 01/01. Will follow up after consult. documented in this encounter Plan of Treatment Upcoming Encounters Date Type Department Care Team (Late st Contact Info) Description 03/28/2025 1:45 PM EST Office Visit [facility] [address] [facility] [place] [address] Mustapha James MD [address] [place] [address] 04/12/2025 1:30 PM EST Clinical Support [facility] [address] [place] [address] Chirag Mckee MD [address] [place] [address] documented as of this encounter Visit Diagnoses Not on filedocumented in this encounter Additional Health Concerns Assessment Noted Time PHQ-2 Depression Total Score: 1 10/24/19 24 2:19 PM EDT documented as of this encounter Care Teams Storage Manager Relationship Specialty Start Date End Date Mustapha James MD [address] [place] [address] PCP - General Family Medicine 01/02/24 documented as of this encounter
--- OUTSIDE RECORDS SUMMARY | 2025-02-19 13:13 | XMS_ITS | Encounter Summary ---
Author Organization [facility] Address [address] [place] [address] Care Team Providers Care Historic Site Administrator Name Role Phone Mustapha James MD Primary Care Provider + Encounter Details Date Type Department Care Team (Latest Contact Info) Description 02/04/2025 Travel Social History Tobacco Use Types Packs/Day [...] [facility] [address] [place] [phone] Mustapha James MD [address] [place] [address] 04/12/2025 1:30 PM EST Clinical Support [facility] [address] [place] [address] Chirag Mckee MD [address] [place] [address] documented as of this encounter Visit Diagnoses Not on filedocumented in this encounter Additional Health Concerns Assessment Noted Time PHQ-2 Depression Total Score: 1 10/24/19 24 2:19 PM EDT documented as of this encounter Care Teams Historic Site Administrator Relationship Specialty Start Date End Date Mustapha James MD [address] [place] [address] PCP - General Family Medicine 01/02/24 documented as of this encounter
--- OUTSIDE RECORDS SUMMARY | 2025-02-19 13:13 | XMS_ITS | Encounter Summary ---
[facility] Address [address] [place] [address] Care Team Providers Care Green Jobs Trainer Name Role Phone Mustapha James MD Primary Care Provider + Encounter Details Date Type Department Care Team (Late st Contact Info) Description 02/08/2025 Results Follow-Up [facility] CARDIOLOGY [address] [facility] [address] [place] [address] Layla Ochoa MD [address] [facility] [address] [place] [id number] Social History Tobacco Use Types Packs/Day Years [...] encounter Miscellaneous Notes * Telephone Encounter - Shireen Ackerman RN - 02/08/2025 4:18 PM EDT Pt returned call and was informed of oximeter order. She verbalized understanding. * Telephone Encounter - Chavez Ibrahim RN - 02/08/2025 2:41 PM EDT Attempted to call patient, no answer. Order on Dr. Ochoa inbox for signature. documented in this encounter Plan of Treatment Upcoming Encounters Date Type Department Care Team (Late st Contact Info) Description 03/28/2025 1:45 PM EST Office Visit [facility] FAMILY MEDICINE [address] [facility] [place] [address] Mustapha James MD [address] [facility] [place] [address] 04/12/2025 1:30 PM EST Clinical Support [facility] [address] [place] [address] Chirag Mckee MD [address] [place] [address] documented as of this encounter Visit Diagnoses Not on filedocumented in this encounter Additional Health Concerns Assessment Noted Time PHQ-2 Depression Total Score: 1 10/24/19 24 2:19 PM EDT documented as of this encounter Care Teams Green Jobs Trainer Relationship Specialty Start Date End Date Mustapha James MD [address] [place] [address] PCP - General Family Medicine 01/02/24 documented as of this encounter
--- OUTSIDE RECORDS SUMMARY | 2025-02-19 13:14 | XMS_ITS | Encounter Summary ---
Author Organization [facility] Address [address] [place] [address] Care Team Providers Care Residential Manager Name Role Phone Mustapha James MD Primary Care Provider + Encounter Details Date Type Department Care Team (Latest Contact Info) Description 01/29/2025 Travel Social History Tobacco Use Types Packs/Day [...] Visit [facility] FAMILY MEDICINE [address] [place] [phone] Mustapha James MD [address] [place] [address] 04/12/2025 1:30 PM EST Clinical Support [facility] [address] [place] [address] Chirag Mckee MD [address] [place] [address] documented as of this encounter Visit Diagnoses Not on filedocumented in this encounter Additional Health Concerns Assessment Noted Time PHQ-2 Depression Total Score: 1 10/24/19 24 2:19 PM EDT documented as of this encounter Care Teams Residential Manager Relationship Specialty Start Date End Date Mustapha James MD [address] [place] [address] PCP - General Family Medicine 01/02/24 documented as of this encounter
--- OUTSIDE RECORDS SUMMARY | 2025-02-19 13:14 | XMS_ITS | Encounter Summary ---
Author Organization [facility] Address [address] [place] [address] Care Team Providers Care Marketing Researcher Name Role Phone Mustapha James MD Primary Care Provider + Reason for Visit * Reason Comments Med Refill Encounter Details Date Type Department Care Team (Late st Contact Info) Description 01/28/2025 Refill [facility] MED[facility]INE [address] [place] [address] Mustapha James MD [address] [place] [address] Failed back syndrome of lumbar spine; Spondylosis of lumbar region without myelopathy or radiculopathy; Arthritis of lumbar spine; Coronary artery disease involving [place] coronary artery of [place] heart without angina pectoris Social History Tobacco Use Types Packs/Day Years [...] [facility] [address] [place] [phone] Mustapha James MD [address] [place] [address] 04/12/2025 1:30 PM EST Clinical Support [facility] [address] [place] [address] Chirag Mckee MD [address] [place] [address] documented as of this encounter Visit Diagnoses Diagnosis 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
--- OUTSIDE RECORDS SUMMARY | 2025-02-19 13:14 | XMS_ITS | Encounter Summary ---
Author Organization [facility] Address [address] [place] [address] Care Team Providers Care Tool Straightener Name Role Phone Mustapha James MD Primary Care Provider + Encounter Details Date Type Department Care Team (Latest Contact Info) Description 01/15/2025 Travel Social History Tobacco Use Types Packs/Day [...] Description 03/28/2025 1:45 PM EST Office Visit [facility] FAMILY MEDICINE [address] [place] [phone] Mustapha James MD [address] [place] [address] 04/12/2025 1:30 PM EST Clinical Support [facility] [address] [place] [address] Chirag Mckee MD [address] [place] [address] documented as of this encounter Visit Diagnoses Not on filedocumented in this encounter Additional Health Concerns Assessment Noted Time PHQ-2 Depression Total Score: 1 10/24/19 24 2:19 PM EDT documented as of this encounter Care Teams Tool Straightener Relationship Specialty Start Date End Date Mustapha James MD [address] [place] [address] PCP - General Family Medicine 01/02/24 documented as of this encounter
--- OUTSIDE RECORDS SUMMARY | 2025-02-19 13:14 | XMS_ITS | Encounter Summary ---
[facility] Address [address] [place] [address] Care Team Providers Care Vocal Teacher Name Role Phone Mustapha James MD Primary Care Provider + Encounter Details Date Type Department Care Team (Late st Contact Info) Description 02/01/2025 Patient rounding [place] [facility] CARDI[facility]ACIC SURGERY [address] [place] [address] [address] [place] [phone] Rosangela Otoole RegSched Rep Social History Tobacco Use Types Packs/Day Years [...] as of this encounter Progress Notes * Rosangela Otoloe RegSched Rep - 02/01/2025 8:20 AM EDT February 01, 2025 Hel, august I speak with Jodi Westbrook Chavez? My name is CHRIS ROGERIN I am with [facility] CARDIOTH[facility]AC[facility]GERY [address] [facility] [address] [facility] [phone] . Before we get started august I verify your date of ? 1955 I am calling to officially welcome you to our practice and ask about your recent visit. Is this a good time to talk? yes Tell me about your visit with us. What things went well? PATIENT WAS UPSET BECAUSE SHE HAD A LOT OFQUESTIONS ABOUT SURGERY THAT WEREN'T ANSWERED AND SHE SAID THAT THE MA KEPT INTERRUPTING HER WHEN SHE WAS ASKING QUESTIONS. I TRANSFERRED THE PATIENT TO [facility] TO ANSWER SOME OF HER QUESTIONS. We're always looking for ways to make our patients' experiences even better. Do you have recommendations on ways we may improve? no Overall were you satisfied with your first visit to our practice? no I appreciate you taking the time to speak with me today. Is there anything else I can do for you? yes TRANSFERRED PATIENT TO JOSEPHINE Thank you, and have a great day. documented in this encounter Plan of Treatment Upcoming Encounters Date Type Department Care Team (Late st Contact Info) Description 03/28/2025 1:45 PM EST Office Visit [facility] FAMILY MEDICINE [address] [place] [address] Mustapha James MD [address] [place] [address] 04/12/2025 1:30 PM EST Clinical Support [facility] [address] [place] [address] Chirag Mckee MD [address] [place] [address] documented as of this encounter Visit Diagnoses Not on filedocumented in this encounter Additional Health Concerns Assessment Noted Time PHQ-2 Depression Total Score: 1 10/24/19 24 2:19 PM EDT documented as of this encounter Care Teams Vocal Teacher Relationship Specialty Start Date End Date Mustapha James MD [address] [facility] [place] [address] PCP - General Family Medicine 01/02/24 documented as of this encounter
--- OUTSIDE RECORDS SUMMARY | 2025-02-19 13:14 | XMS_ITS | Encounter Summary ---
[facility] Address [address] [place] [address] Care Team Providers Care Hyperbaric Welder Diver Name Role Phone Mustapha James MD Primary Care Provider + Encounter Details Date Type Department Care Team (Late st Contact Info) Description 01/18/2025 Documentation [facility] CARDIOLOGY [address] [place] [address] Keli Aaron, BLEACH CHLORINATOR [address] [facility] [address] [place] [address] Social History Tobacco Use Types [...] Progress Notes * Keli Aaron APRN - 01/18/2025 2:07 PM EDT Patient called with questions about upcoming apt with CT surgery on 01/29. We reviewed upcoming consult and testing. Tentative TAVR date 03/04. We discussed severe aortic valve stenosis, TAVR vs. SAVR, pre-procedural testing requirements, hospitalization and recovery expectations and cardiac rehab. Goals of care were discussed with the patient. A shared decision making approach was used as we discussed the patient's treatment options for severe symptomatic aortic stenosis. Treatment options include TAVR, SAVR and medical management. Risks and benefits of transcatheter aortic valve replacement (TAVR) versus surgical aortic valve replacement (SAVR) were discussed. Risks include, but are not limited to, , stroke, bleeding, vascular injury, heart rhythm disturbance (including possible need for permanent pacemaker), infection, heart attack, kidney failure and other organ failure. She has our contact information for future questions or concerns. Will follow up after CT surgery consult documented in this encounter Plan of Treatment Upcoming Encounters Date Type Department Care Team (Late st Contact Info) Description 03/28/2025 1:45 PM EST Office Visit [facility] FAMILY MEDICINE [address] [facility] [place] [address] Mustapha James MD [address] [facility] [place] [address] 04/12/2025 1:30 PM EST Clinical Support [facility] [address] [place] [address] Chirag Mckee MD [address] [place] [address] documented as of this encounter Visit Diagnoses Not on filedocumented in this encounter Additional Health Concerns Assessment Noted Time PHQ-2 Depression Total Score: 1 10/24/19 24 2:19 PM EDT documented as of this encounter Care Teams Hyperbaric Welder Diver Relationship Specialty Start Date End Date Mustapha James MD [address] [facility] [place] [address] PCP - General Family Medicine 01/02/24 documented as of this encounter
--- OUTSIDE RECORDS SUMMARY | 2025-02-19 13:14 | XMS_ITS | Encounter Summary ---
[facility] Address [address] [place] [address] Care Team Providers Care Transcriber Name Role Phone Mustapha James MD Primary Care Provider + Reason for Visit * Reason Onset Date Comments Advice Only 02/11/2025 Encounter Details Date Type Department Care Team (Late st Contact Info) Description 02/11/2025 Telephone [facility] CARDIOLOGY [address] [place] [address] Keli Aaron, HOUSEKEEPING ATTENDANT [address] [facility] [address] [place] [address] Advice Only Social History Tobacco Use Types [...] encounter Miscellaneous Notes * Telephone Encounter - Keli Aaron APRN - 02/11/2025 12:30 PM EDT Patient is confused on POC after her apt with Rad/Onc last week. Dr. Mckee discussed her care withDr. Alonzo and Dr. Lamb and referred patient back to [facility] for cardiac clearance. Unclear if Dr. Mckee is aware that patient is being followed by Dr. Montero and Dr. Ochoa for aortic valve stenosis, possible TAVR candidate. She is also unclear on decision from Dr. oMntero regarding transcarotid TAVR. Contacted radiation oncology to discuss, staff will relay information to Dr. Mckee's nurse. Contacted CT surgery team about POC for possible transcarotid TAVR. * Telephone Encounter - Adrienne Quiroz RN - 02/11/2025 9:26 AM EDT Pt lvm call back at [phone]. Pt is confused on plan of care. documented in this encounter Plan of Treatment Upcoming Encounters Date Type Department Care Team (Late st Contact Info) Description 03/28/2025 1:45 PM EST Office Visit [facility] FAMILY MEDICINE [address] [address] Mustapha James MD [address] [place] [address] 04/12/2025 1:30 PM EST Clinical Support [facility] [address] [place] [address] Chirag Mckee MD [address] [place] [address] documented as of this encounter Visit Diagnoses Not on filedocumented in this encounter Additional Health Concerns Assessment Noted Time PHQ-2 Depression Total Score: 1 10/24/19 24 2:19 PM EDT documented as of this encounter Care Teams Transcriber Relationship Specialty Start Date End Date Mustapha James MD [address] [place] [address] PCP - General Family Medicine 01/02/24 documented as of this encounter
[2025-02-19 13:20] LABS: Total Iron Binding Capacity 319 ug/dL (265-497)
[2025-02-19 13:48] LABS: Ferritin 62.6 ng/ml (11.1-264)
== END 2025-02-19 23:59 | disposition home or self-care (01) ==
PROVIDERS: PCP Family Medicine; Visit Provider Internal Medicine Medical Oncology
DX: D64.9 Anemia, unspecified (principal)
CPT/HCPCS: 36415; 82728; 83540; 83550; 85025